=== PATIENT | male | born 1945 | race Two or more races ===

== ENCOUNTER 2020-02-04 10:00 | Outpatient (RCR) | payer MEDICARE, SELFPAY ==
--- NOTE | 2020-01-07 11:14 | MHC.PT.EP ---
[facility] [place] Office [place] Office [place] Office [address] Suzanna Lester [address] [phone] F: [phone] F: [phone] F: [phone] F: [phone] Physical Therapy Plan of Care Date of Evaluation: 01/07/20 Date of Surgery: Diagnosis: low back pain Assessment: pt presents to physical therapy with pain, decreased range of motion, decreased strength, impaired functional mobility, impaired postural awareness, and gait deviations. pt is a good candidate for skilled PT due to age, potential remediation of impairments, typical disease/condition progression and prognosis, comorbidities, and motivation. pt would benefit from tailored strengthening and stretching exercise program, functional training, gait training, postural re-training, neuromuscular re-education, and modalities as needed for pain. Frequency and Duration: The patient will be seen 2x/wk for 4 wks Short Term Goals: pt will be I w/ HEP to promote self-management of condition. pt will demo proper sitting posture w/ lumbar roll to facilitate neutral spine. Fdc Goals: pt will report <2/20 low back pain w/ walking for >10 minutes to facilitate return to PLOF. pt will report statistically significant improvement in self-reported outcome measure, Brianne, to facilitate return to PLOF. Treatment Plan: Modalities to reduce pain, spasms and effusion. Manual therapy to restore motion and function. Therapeutic exercise to improve strength and flexibility. Neuromuscular re-education for posture and balance. Therapeutic activities to return to functional activities of daily living. Please sign and return to therapist. Thank you for your referral.
--- NOTE | 2020-02-07 13:45 | MHC.PT.DC ---
[facility] [place] Office [place] Office [place] Office [address] [phone] F: [phone] F: [phone] F: [phone] F: [phone] Physical Therapy Discharge Report Diagnosis: low back pain Date of Surgery: N/A Date of Evaluation: 01/07/20 Date of Discharge: 02/07/20 Treatments to Date: 7 Cancellations to Date: 0 No Shows to Date: 2 Discharge Status: Improved Function Independent with HEP Discharge Summary: The patient overall has reported a decrease in his pain severity since starting physical therapy. He was given a shoe lift to compensate for his significant leg length disparity. He is independent with his home exercise program. The patient is discharged from this physical therapy plan of care. Electronically signed by: Emerald Frey PT, DPT Please sign and return to therapist. Thank you for your referral.
== END 2020-02-07 13:46 | disposition other institution (70) ==
LOC: HO.PT 10:00
PROVIDERS: PCP Internal Medicine; Visit Provider Internal Medicine
DX: M54.5 Low back pain (principal)
CPT/HCPCS: 97110; 97140; 97162; 99214

== ENCOUNTER → 2020-03-20 08:36 | Outpatient (BNVA) | payer MEDICARE, SELFPAY | PROVIDERS: PCP Internal Medicine; Visit Provider Nurse Practitioner Family | DX: S32.010D Wedge compression fracture of first lumbar vertebra, subsequent encounter for fracture with routine healing (principal); M47.816 Spondylosis without myelopathy or radiculopathy, lumbar region | CPT/HCPCS: 99202 ==

== ENCOUNTER 2020-04-04 12:28 | Outpatient (REF) | payer MEDICARE, SELFPAY ==
--- NOTE | 2020-04-04 | US_ITS ---
EXAMINATION: NONINVASIVE ASSESSMENT OF THE ARTERIES OF BOTH LOWER EXTREMITIES WITH ANKLE PRESSURE MEASUREMENTS, ANKLE BRACHIAL INDICES AND BILATERAL LOWER EXTREMITY DUPLEX CLINICAL INFORMATION: Bilateral lower extremity peripheral vascular disease. TECHNIQUE: Ankle pressure measurements and ankle brachial indices were obtained of the lower extremity arterial system bilaterally. In addition, duplex Doppler techniques with wave form analysis and measurement of velocities in the common femoral, profunda femoral, superficial femoral, popliteal and tibial arteries was performed. The study was performed only at rest. COMPARISON: 11/09/2018 FINDINGS: NONINVASIVE ASSESSMENT OF THE ARTERIES OF BOTH LOWER EXTREMITIES WITH ABIs: RIGHT LEG: Right ankle-brachial index: 1.22 Right ankle pressures: PT 120 DP 203 PVR: Normal LEFT LEG: Ankle-brachial index: 1.22 Pressures: PT 158 DP 204 PVR: Normal STAR Reference: - >0.97-1.25 = normal - no significant arterial disease - 0.75-0.96 = mild peripheral arterial disease - 0.5-0.74 = moderate peripheral arterial disease - <0.50 = severe peripheral arterial disease BILATERAL LOWER EXTREMITY DUPLEX ULTRASOUND: RIGHT LEG: Common femoral artery: 110 cm/s, Diastolic flow reversal: Yes Profunda femoris artery: 169 cm/s, Diastolic flow reversal: Yes Superficial femoral artery (proximal): 124 cm/s, Diastolic flow reversal: Yes Superficial femoral artery (mid): 143 cm/s, Diastolic flow reversal: Yes Superficial femoral artery (distal): 170 cm/s, Diastolic flow reversal: Yes Popliteal artery: 42 cm/s, Diastolic flow reversal: Yes Posterior tibial artery: 25.9 cm/s, Diastolic flow reversal: No LEFT LEG: Common femoral artery: 130 cm/s, Diastolic flow reversal: Yes Profunda femoris artery: 215 cm/s, Diastolic flow reversal: Yes Superficial femoral artery (proximal): 141 cm/s, Diastolic flow reversal: Yes Superficial femoral artery (mid): 156 cm/s, Diastolic flow reversal: Yes Superficial femoral artery (distal): 62 cm/s, Diastolic flow reversal: Yes Popliteal artery: 85.6 cm/s, Diastolic flow reversal: Yes Posterior tibial artery: 43.4 cm/s, Diastolic flow reversal: No INCIDENTAL: Within the mid right femoral vein, is focal, partially occlusive thrombus, possibly chronic clot. The vein is not completely compressible over this area; however, color flow is seen throughout the right femoral vein US/US arterial duplex LE BI IMPRESSION: RIGHT LE. No evidence of arterial insufficiency by STAR criteria. Elevated velocities within the mid and distal superficial femoral artery are consistent with mild hemodynamically significant stenosis. Decreased velocity and monophasic waveform within the posterior tibial artery suggests a high-grade stenosis. 2. Partially occlusive right femoral DVT, which is chronic- appearing. LEFT LEG: No evidence of arterial insufficiency by STAR criteria. Elevated velocities within the proximal and mid SFA consistent with mild stenosis. Moderate stenosis of the proximal profunda femoris artery. Monophasic tibial waveforms suggest high-grade stenosis. These findings will be communicated to the ordering provider by [facility] on 04/05/2019.
--- NOTE | 2020-04-04 | US_ITS ---
EXAMINATION: US EXTRACRANIAL CAROTID DUPLEX, BILATERAL CLINICAL INFORMATION: Bilateral carotid stenosis COMPARISON: None TECHNIQUE: Real-time ultrasound and Doppler techniques (integrating B-mode 2-D vascular images, Doppler spectral analysis and color-flow Doppler imaging) were utilized to interrogate the extracranial carotid arteries, the vertebral arteries and proximal subclavian arteries bilaterally. The degree of stenosis is determined by criteria similar to NASCET. FINDINGS: Right Side: 1. There is calcified atherosclerotic plaque seen in the bifurcation/proximal ICA region. 2. The common carotid artery PSV proximally is 85.6 cm/s and distally 80.9 cm/s. 3. The proximal internal carotid artery velocities are 96.6 cm/s systolic and 16.5 cm/s diastolic. 4. The proximal external carotid artery PSV is 179 cm/s. 5. The vertebral artery shows antegrade flow. 6. The subclavian artery waveforms are normal. Left Side: 1. There is calcified atherosclerotic plaque seen in the bifurcation/proximal ICA region. 2. The common carotid artery PSV proximally is 153 cm/s and distally 145 cm/s. 3. The proximal internal carotid artery velocities are 143 cm/s systolic and 28.5 cm/s diastolic. 4. The proximal external carotid artery PSV is 165 cm/s. 5. The vertebral artery shows antegrade flow. 6. The subclavian artery waveforms are normal. US/US carotid duplex BI IMPRESSION: 1. RIGHT: Minimal, non-hemodynamically significant stenosis of the proximal right internal carotid artery corresponding to a 0-49% stenosis by velocity criteria. 2. LEFT: Moderate, hemodynamically significant stenosis of the proximal left internal carotid artery corresponding to a 50-79% stenosis by velocity criteria.
== END 2020-04-04 12:29 | disposition home or self-care (01) ==
LOC: HO.US 12:28
PROVIDERS: Visit Provider Surgery Vascular Surgery
DX: I73.9 Peripheral vascular disease, unspecified (principal); I65.23 Occlusion and stenosis of bilateral carotid arteries
CPT/HCPCS: 93880; 93923; 93925

== ENCOUNTER 2020-04-11 18:29 | Outpatient (REF) | payer MEDICARE, SELFPAY ==
--- NOTE | 2020-04-11 18:32 | MR_ITS ---
EXAMINATION: MR LUMBAR SPINE WITHOUT CONTRAST CLINICAL INFORMATION: Lumbar spondylosis. COMPARISON: Lumbar spine radiographs from 12/07/2019. TECHNIQUE: MRI of the lumbar spine was obtained using routine sequences without contrast. FINDINGS: Chronic anterior wedge deformity was 70% loss of anterior body height. There is a 0.5 cm retropulsion of the superior posterior body wall of L1, unchanged compared to 06/02/2019. There remains mild marrow edema along the superior endplate of L1. Moderate disc desiccation at L5-S1. Mild disc desiccation at all additional lumbar levels. The remaining vertebral body heights are maintained. Mixed Modic type discogenic endplate changes including minimal Modic type I discogenic edema at all lumbar levels. No additional suspicious marrow edema. Mild flattening of the conus medullaris at the level of T12-L1 without overt cord compression. The conus medullaris terminates at the level of L2. No significant abnormalities of the paraspinal musculature. Limited evaluation of the intra-abdominal structures without significant abnormalities. The abdominal aorta is of normal contour and caliber. AXIAL SPINAL LEVELS: T12-L1: Moderate retropulsion of the posterior body wall of L1. There is moderate to severe bilateral facet joint arthropathy. There is severe right and moderate left neural foraminal stenosis. There is mild spinal canal stenosis. L1-L2: Normal annular contour. There is moderate right and mild left facet joint arthropathy. There is no neural foraminal stenosis. There is no spinal canal stenosis. L2-L3: Shallow diffuse disc bulge. There is moderate bilateral facet joint arthropathy. There is mild right and no left neural foraminal stenosis. There is no spinal canal stenosis. L3-L4: Shallow diffuse disc bulge. There is moderate right worse than left facet joint arthropathy. There is mild right and no left neural foraminal stenosis. There is no spinal canal stenosis. L4-L5: Moderate diffuse disc bulge. There is moderate to severe leftward than right facet joint arthropathy. There is moderate bilateral neural foraminal stenosis. There is stenosis of the subarticular zones with moderate spinal canal stenosis centrally. L5-S1: Moderate diffuse disc bulge. There is moderate bilateral facet joint arthropathy. There is mild bilateral neural foraminal stenosis. There is narrowing of the subarticular zones with no overt spinal canal stenosis centrally. MR/MR lumbar spine wo con IMPRESSION: 1. Chronic anterior compression deformity of L1 with 70% loss of anterior body height. There is 0.5 cm retropulsion of the posterior body wall of L1, unchanged compared to 06/02/2019. Associated mild spinal canal stenosis at T12-L1. 2. 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 Most notably, there is moderate spinal canal stenosis at L4-L5. Narrowings/stenoses of the subarticular zones at L4-L5 and L5-S1. Moderate neural foraminal stenoses at L4-L5.
== END 2020-04-11 18:30 | disposition home or self-care (01) ==
LOC: HO.MRI 18:29
PROVIDERS: Visit Provider Anesthesiology
DX: M47.816 Spondylosis without myelopathy or radiculopathy, lumbar region (principal); S32.010A Wedge compression fracture of first lumbar vertebra, initial encounter for closed fracture
CPT/HCPCS: 72148; Q3014

== ENCOUNTER → 2020-04-18 13:24 | Outpatient (BNVA) | payer MEDICARE, SELFPAY | PROVIDERS: PCP Internal Medicine; Visit Provider Nurse Practitioner Family | DX: M47.816 Spondylosis without myelopathy or radiculopathy, lumbar region (principal); S32.010S Wedge compression fracture of first lumbar vertebra, sequela | CPT/HCPCS: Q3014 ==

== ENCOUNTER 2020-05-17 09:31 | Outpatient (REF) | payer MEDICARE, SELFPAY ==
[2020-05-17 10:34] LABS: Estimated Average Glucose 123 mg/dL; Hemoglobin A1c % 5.9 %
[2020-05-17 10:55] LABS: Alanine Aminotransferase 93 U/L (0-40); Albumin Level 4.1 g/dL (3.5-5.0); Alkaline Phosphatase 89 U/L (39-117); Anion Gap 11 (12-20); Aspartate Amino Transferase 36 U/L (5-37); Bilirubin Total 0.5 mg/dL (0.0-1.0); Blood Urea Nitrogen 22 mg/dL (9-16); Calcium 9.1 mg/dL (8.4-10.2); Carbon Dioxide 27 mmol/L (22-29); Chloride 110 mmol/L (96-108); Cholesterol 133 mg/dL; Estimated Glomerular Filt Rate 58; Glucose Fasting 93 mg/dL (60-99); HDL Cholesterol 34 mg/dL; LDL Cholesterol Calculated 75 mg/dl; Sodium 143 mmol/L (135-145); Total Protein 7.2 g/dL (6.5-8.0); Triglycerides 120 mg/dL
[2020-05-17 11:17] LABS: Thyroid Stimulating Hormone 3.16 uIU/mL (0.32-4.0)
[2020-05-17 11:30] LABS: Creatinine Urine 117.14 mg/dL
[2020-05-17 11:42] LABS: Microalbum/Creatinine Ratio Ur 1139.6 ug/mg cr
[2020-05-18 08:37] LABS: LDL Cholesterol Direct 67 mg/dL (<100)
[2020-05-18 17:14] LABS: Vitamin B12 1464 pg/mL (200-900)
== END 2020-05-17 09:32 | disposition home or self-care (01) ==
LOC: HO.LAB 09:31
PROVIDERS: Absent Provider Internal Medicine Endocrinology, Diabetes & Metabolism; PCP Internal Medicine; Visit Provider Internal Medicine
DX: E11.42 Type 2 diabetes mellitus with diabetic polyneuropathy (principal); Z79.4 Long term (current) use of insulin
CPT/HCPCS: 36415; 80053; 80061; 82043; 82607; 83036; 83721; 84443

== ENCOUNTER 2020-05-23 06:05 | Outpatient (REF) | payer MEDICARE, SELFPAY ==
--- NOTE | ~2020-05-23 | FL_ITS ---
EXAMINATION: XR FLUOROSCOPY WITH IMAGES CLINICAL INFORMATION: Spondylosis with myelopathy or radiculopathy. COMPARISON: None. TECHNIQUE: Fluoroscopy performed by Ashlie Hernandez NP. Fluoroscopy time: 1.3 minutes. DAP: 9.07 Gy-cm2. Images: 7. FINDINGS: On prone, digital images obtained of lower lumbar spine. There are needles positioned lateral to the pedicles at L5, L4 and L3 vertebra bilaterally with contrast injection opacifying the soft tissues. No gross bony abnormality seen. FL/FL guidance in treatment room IMPRESSION: Fluoroscopy guidance for radiofrequency ablation at L3, L4 and L5 vertebrae.
== END 2020-05-23 06:06 | disposition home or self-care (01) ==
LOC: HO.RADIR 06:05
PROVIDERS: Visit Provider Anesthesiology
DX: M47.816 Spondylosis without myelopathy or radiculopathy, lumbar region (principal); S32.010S Wedge compression fracture of first lumbar vertebra, sequela; F17.200 Nicotine dependence, unspecified, uncomplicated
CPT/HCPCS: 64493; 64494; 64495; Q9967

== ENCOUNTER → 2020-05-29 14:37 | Outpatient (BNVA) | payer MEDICARE, SELFPAY | PROVIDERS: PCP Internal Medicine; Visit Provider Nurse Practitioner Family | DX: M47.816 Spondylosis without myelopathy or radiculopathy, lumbar region (principal); S32.010S Wedge compression fracture of first lumbar vertebra, sequela; Z79.899 Other long term (current) drug therapy | CPT/HCPCS: Q3014 ==

== ENCOUNTER 2020-06-13 09:21 | Outpatient (REF) | payer MEDICARE, SELFPAY ==
--- NOTE | ~2020-06-13 | US_ITS ---
EXAMINATION: US RETROPERITONEAL LIMITED (RENAL ONLY) CLINICAL INFORMATION: Chronic kidney disease stage III. COMPARISON: CT abdomen pelvis 06/02/2019 TECHNIQUE: Real-time imaging of the kidneys. FINDINGS: RIGHT KIDNEY: 11.4 x 6.1 x 5.8 cm (SAG x AP x TRV). The kidney is normal in size, contour, and echogenicity. Renal cortical thickness is normal. No calculi or focal parenchymal lesions. No hydronephrosis. LEFT KIDNEY: 1.9 x 5.5 x 5.9 cm (SAG x AP x TRV). The kidney is normal in size, contour, and echogenicity. Renal cortical thickness is normal. No calculi or focal parenchymal lesions. No hydronephrosis. There is trace perinephric fluid adjacent to the lower pole. US/US renal BI IMPRESSION: Normal renal ultrasound.
== END 2020-06-13 09:22 | disposition home or self-care (01) ==
LOC: HO.US 09:21
PROVIDERS: Visit Provider Internal Medicine Hypertension Specialist
DX: N18.31 Chronic kidney disease, stage 3a (principal)
CPT/HCPCS: 76775

== ENCOUNTER → 2020-07-12 13:51 | Outpatient (BNVA) | payer MEDICARE, SELFPAY | PROVIDERS: PCP Internal Medicine; Visit Provider Internal Medicine Endocrinology, Diabetes & Metabolism | DX: E11.42 Type 2 diabetes mellitus with diabetic polyneuropathy (principal); E11.21 Type 2 diabetes mellitus with diabetic nephropathy; E11.319 Type 2 diabetes mellitus with unspecified diabetic retinopathy without macular edema; E11.22 Type 2 diabetes mellitus with diabetic chronic kidney disease; I12.9 Hypertensive chronic kidney disease with stage 1 through stage 4 chronic kidney disease, or unspecified chronic kidney disease; N18.30 Chronic kidney disease, stage 3 unspecified; Z79.4 Long term (current) use of insulin; E78.5 Hyperlipidemia, unspecified | CPT/HCPCS: 82947; 99212 ==

== ENCOUNTER 2020-07-31 09:32 | Outpatient (REF) | payer MEDICARE, SELFPAY ==
[2020-07-31 10:51] LABS: Alanine Aminotransferase 29 U/L (0-40); Albumin Level 3.9 g/dL (3.5-5.0); Alkaline Phosphatase 78 U/L (39-117); Anion Gap 13 (12-20); Aspartate Amino Transferase 19 U/L (5-37); Bilirubin Total 0.8 mg/dL (0.0-1.0); Blood Urea Nitrogen 23 mg/dL (9-16); Calcium 9.1 mg/dL (8.4-10.2); Carbon Dioxide 25 mmol/L (22-29); Chloride 107 mmol/L (96-108); Estimated Glomerular Filt Rate > 60; Glucose Random 111 mg/dL (60-115); Phosphorus 4.7 mg/dL (2.7-4.5); Potassium 4.4 mmol/L (3.3-5.1); Sodium 141 mmol/L (135-145); Total Protein 7.2 g/dL (6.5-8.0)
[2020-07-31 11:22] LABS: Glucose Urine UA NEG (NEG); Leukocyte Esterase Urine NEG (NEG); Nitrite Urine NEG (NEG); Specific Gravity - Urine >= 1.030 (1.005-1.025); Urine Blood TRACE (NEG); Urine Ketones NEG (NEG); Urine Protein 2+ MG/DL (NEG-TRACE)
[2020-07-31 11:24] LABS: Appearance Urine CLEAR; Color Urine YELLOW
[2020-07-31 11:35] LABS: RBC Urine 0-2 /HPF (0); Squamous Epithelial Cell Urine TRACE /LPF; WBC Urine 0-2 /HPF (0-4)
[2020-07-31 11:57] LABS: Creatinine Urine 142.43 mg/dL
[2020-07-31 12:23] LABS: Protein/Creatinine Ratio, Ur 1.62 (<0.2); Total Protein Urine Random 231 mg/dL (<12)
== END 2020-07-31 09:33 | disposition home or self-care (01) ==
LOC: HO.LAB 09:32
PROVIDERS: PCP Internal Medicine; Visit Provider Internal Medicine Hypertension Specialist
DX: N18.31 Chronic kidney disease, stage 3a (principal)
CPT/HCPCS: 36415; 80053; 81001; 81003; 84100; 84156

== ENCOUNTER → 2020-08-01 08:15 | Outpatient (BNVA) | payer MEDICARE, SELFPAY | PROVIDERS: PCP Internal Medicine; Visit Provider Internal Medicine Endocrinology, Diabetes & Metabolism | CPT/HCPCS: Q3014 ==

== ENCOUNTER 2020-09-25 03:44 | Emergency (ER) | payer MEDICARE, SELFPAY ==
--- NOTE | ~2020-09-25 | US_ITS ---
EXAMINATION: US VENOUS ULTRASOUND WITH DOPPLER LOWER EXTREMITY, LEFT CLINICAL INFORMATION: Pain and redness of the left lower extremity COMPARISON: None TECHNIQUE: Ultrasound of the deep veins is performed from the hip to the calf with compression sonography and color and pulse Doppler assessment. Spectral analysis with color-flow imaging is performed. FINDINGS: There is normal venous compression and respiratory variation and augmented flow. The visualized common femoral vein, superficial femoral vein, profunda femoral vein, popliteal vein, and the trifurcation region shows no evidence of deep venous thrombosis. There is no significant popliteal fossa cyst. If the patient's symptoms persist, followup ultrasound in 5 days 7 days might be of value to exclude proximal propagation from a non-visualized calf vein. US/US venous duplex LE LT IMPRESSION: No DVT demonstrated in the left lower extremity.
[2020-09-25 04:00] VITALS: BP 152/80; PULSE 110; RESP 16; O2SAT 98; BMI 31.3
--- NOTE | 2020-09-25 04:21 | ED.LOWEXIN ---
HPI - Extremity Injury (Lower) General Chief Complaint: Extremity Injury, Lower Stated Complaint: extreme knee pain Time Seen by Provider: 09/25/20 04:21 Source: patient Mode of arrival: ambulatory History of Present Illness HPI Narrative: 75-year-old male with presentation for left knee pain and denies any associated fever, chills, but states that this causes him to have significant pain on walking for longer periods of time. He states this discharge over the past couple of days and is tender on direct palpation. Related Data Home Medications Medication Instructions Recorded Confirmed atorvastatin 80 mg tablet 80 mg PO DAILY 01/07/20 08/01/20 adalimumab 40 mg/0.8 mL mg SUBCUT Q2W 07/12/20 08/01/20 subcutaneous pen kit latanoprost 0.005 % eye drops 1 drp OPHTHALMIC (EYE) BEDTIME 07/12/20 08/01/20 Previous Rx's Medication Instructions Recorded 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 meter #1 ea 02/29/20 aspirin 81 mg tablet,delayed 81 mg PO DAILY #90 tab 06/06/20 release insulin aspart U-100 100 unit/mL See Rx Instructions SUBCUT TID 90 07/12/20 (3 mL) subcutaneous pen Days #30 ml lancets 28 gauge #300 ea 07/12/20 pen needle, diabetic 32 gauge x #400 ea 07/12/2032 losartan 25 mg tablet 25 mg PO DAILY 90 Days #90 tab 07/31/20 metoprolol succinate 25 mg 25 mg PO DAILY #90 tab 07/31/20 tablet,extended release 24 hr rosuvastatin 5 mg tablet 5 mg PO DAILY 90 Days #90 tab 07/31/20 FreeStyle Lite Strips #300 ea NS 08/01/20 dulaglutide 3 mg/0.5 mL 3 mg SUBCUT QWEEK 90 Days #6.5 ml 08/01/20 subcutaneous pen injector insulin degludec 100 unit/mL (3 26 unit SUBCUT DAILY 90 Days #30 ml 08/01/20 mL) subcutaneous pen amlodipine 10 mg tablet 10 mg PO DAILY #90 tab 08/22/20 gabapentin 300 mg capsule 300 mg PO BEDTIME #90 cap 08/22/20 Allergies Allergy/AdvReac Type Severity Reaction Status Date / Time No Known Allergies Allergy Mild NONE Verified 05/29/20 14:38 Review of Systems Review of Systems: Pertinent positives and negatives as stated in HPI 10 point review of systems is otherwise negative. FOR[facility]LY [facility], [facility] Past Medical History Source: nursing notes reviewed Medical History Anxiety CAD (coronary artery disease) Cardiomyopathy Carotid artery stenosis CKD stage 3 due to type 2 diabetes mellitus Compression fracture of L1 lumbar vertebra Congestive heart failure Diabetes type 2, controlled Diabetic 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 diabetes mellitus Diabetic polyneuropathy associated with type 2 diabetes mellitus Diabetic retinopathy associated with type 2 diabetes mellitus Dyslipidemia GERD (gastroesophageal reflux disease) Glaucoma History of renal calculi Hypertension Iliac artery stenosis, bilateral Infective endocarditis 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 Moderate aortic stenosis Overweight (BMI 25.0-29.9) Positive TB test Pulmonary nodule PVD (peripheral vascular disease) Tobacco abuse Surgical History Hx of appendectomy Hx of arthroscopy of right knee Hx of cataract removal with insertion of prosthetic lens Hx of coronary artery bypass graft Hx of shoulder surgery Hx of tonsillectomy Family History Family History Father Stomach cancer Mother Diabetes Social History Social History Alcohol intake: never Cigarettes Per Day: 6 Advance Directives: No Advance Directives Information Provided: No Physical Exam Vital Signs: Vital Signs: Last Vital Signs Pulse 110 H 09/25/20 04:00 Resp 16 09/25/20 04:00 BP 152/80 H 09/25/20 04:00 Pulse Ox 98 09/25/20 04:00 Body Mass Index 31.3 VITAL SIGNS: Reviewed. GENERAL: Well developed, well nourished, in no acute distress. HEAD: Normocephalic/atraumatic EYES: PERRLA, EOMI OROPHARYNX: no oral lesions noted, posterior pharynx clear LUNGS: Normal breath sounds. No adventitious sounds or accessory muscle use. SpO2<98> CARDIOVASCULAR: Regular rate and rhythm without noted murmurs ABDOMEN: Soft, non-tender, non-distended with bowel sounds. LEFT LOWER EXTREMITY: Exquisite tenderness on palpation at the medial aspect of the left knee /distal quad with appreciation of a cord but no erythema / induration or fluctuance noted. SKIN: Inspection of the skin reveals no rashes NEUROLOGIC: Alert and oriented x 4. Strength and sensation to light touch were grossly intact x 4. Course Course Course Narrative: 75-year-old male with history and clinical presentation consistent with either thrombophlebitis or DVT. Review of venous duplex negative for DVT and patient will be empirically treated for thrombophlebitis. Discharge Plan Discharge Clinical Impression: Thrombophlebitis Patient Disposition: Home, Self-Care Instructions: Superficial Thrombophlebitis (ED) Additional Instructions: 1. Reanude todos los medicamentos caseros seg?n lo prescrito. 2. Ibuprofeno 400 mg, por v?a oral con leche o alimentos, cada 6 horas seg?n sea necesario para controlar el dolor. 3. Queenie un seguimiento con cooper proveedor de atenci?n primaria en los pr?ximos 1-2 d?as para aleta nueva evaluaci?n. Regrese a la brian de emergencias si boyd s?ntomas empeoran de manera aguda. Prescriptions: No Action (DME) 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 meter [FreeStyle [place] Lite] Kit See Rx Instructions .ROUTE .MEDSUPPLY Qty: 1 RF: 0 aspirin 81 mg tablet,delayed release (DR/EC) 81 mg PO DAILY Qty: 90 RF: 1 losartan 25 mg tablet 25 mg PO DAILY 90 Days Qty: 90 RF: 1 metoprolol succinate 25 mg tablet extended release 24 hr 25 mg PO DAILY Qty: 90 RF: 1 rosuvastatin 5 mg tablet 5 mg PO DAILY 90 Days Qty: 90 RF: 1 amlodipine 10 mg tablet 10 mg PO DAILY Qty: 90 RF: 0 gabapentin 300 mg capsule 300 mg PO BEDTIME Qty: 90 RF: 2 atorvastatin 80 mg tablet 80 mg PO DAILY RF: 0 adalimumab 40 mg/0.8 mL pen injector kit subcut Q2W RF: 0 (DME) FreeStyle Lite Strips Strip See Rx Instructions ea Not Applicable BID Qty: 300 RF: 3 insulin degludec 100 unit/mL (3 mL) insulin pen 26 unit subcut DAILY 90 Days Qty: 30 RF: 2 Trulicity 3 mg/0.5 mL pen injector 3 mg subcut QWEEK 90 Days Qty: 6.5 RF: 2 latanoprost 0.005 % drops 1 drp ophthalmic (eye) BEDTIME RF: 0 insulin aspart U-100 100 unit/mL (3 mL) insulin pen See Rx Instructions subcut TID 90 Days Qty: 30 RF: 2 (DME) pen needle, diabetic [BD Martina 2nd Gen Pen Needle] 32 gauge x 5/32 needle See Rx Instructions .MEDSUPPLY Qty: 400 RF: 4 (DME) lancets 28 gauge misc See Rx Instructions ea Not Applicable BID Qty: 300 RF: 3 Referrals: Physician,Unknown [Primary Care Provider] - 2 days Print Language: Irish
[2020-09-25] MEDS: Acetaminophen 325 MG TABLET 975 MG PO (04:42)
== END 2020-09-25 06:48 | disposition home or self-care (01) ==
PROVIDERS: Emergency Provider Student in an Organized Health Care Education/Training Program
DX: I80.3 Phlebitis and thrombophlebitis of lower extremities, unspecified (principal); I12.9 Hypertensive chronic kidney disease with stage 1 through stage 4 chronic kidney disease, or unspecified chronic kidney disease; E11.22 Type 2 diabetes mellitus with diabetic chronic kidney disease; N18.30 Chronic kidney disease, stage 3 unspecified; I25.10 Atherosclerotic heart disease of native coronary artery without angina pectoris; Z79.4 Long term (current) use of insulin; Z79.82 Long term (current) use of aspirin; Z79.899 Other long term (current) drug therapy
CPT/HCPCS: 93971; 99284

== ENCOUNTER 2020-09-25 20:55 | Emergency (ER) | payer MEDICARE, SELFPAY ==
--- NOTE | ~2020-09-25 | XR_ITS ---
EXAMINATION: XR KNEE, LEFT CLINICAL INFORMATION: Increased knee pain COMPARISON: None TECHNIQUE: Four views of the left knee. FINDINGS: No visible fracture or dislocation. Mild medial compartment arthritis. Small suprapatellar joint fluid. Quadriceps tendon insertional enthesopathy. Extensive vascular calcification. XR/XR knee LT 4V IMPRESSION: No acute osseous abnormality. Mild medial compartment arthritis.
[2020-09-25 20:58] VITALS: BP 156/66; PULSE 85; RESP 16; TEMP 36.3; O2SAT 96; BMI 31.3
--- NOTE | 2020-09-25 21:16 | ED.LOWEXIN ---
HPI - Extremity Injury (Lower) General Chief Complaint: Extremity Injury, Lower Stated Complaint: Knee pain Time Seen by Provider: 09/25/20 21:16 Source: patient Mode of arrival: wheelchair Limitations: no limitations History of Present Illness HPI Narrative: 75-year-old male here with complaints of left knee pain which he has had for several days. He was seen here in this emergency department last night and had a ultrasound which was negative for any deep vein thrombosis and he was given diagnosis thrombophlebitis. It was recommended that he take Motrin as needed for pain. He returns today for persistent pain. He tells me that it has not worsened. There is no new fevers, chills, redness. no new injury or trauma. Related Data Home Medications Medication Instructions Recorded Confirmed atorvastatin 80 mg tablet 80 mg PO DAILY 01/07/20 08/01/20 adalimumab 40 mg/0.8 mL mg SUBCUT Q2W 07/12/20 08/01/20 subcutaneous pen kit latanoprost 0.005 % eye drops 1 drp OPHTHALMIC (EYE) BEDTIME 07/12/20 08/01/20 Previous Rx's Medication Instructions Recorded 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 meter #1 ea 02/29/20 aspirin 81 mg tablet,delayed 81 mg PO DAILY #90 tab 06/06/20 release insulin aspart U-100 100 unit/mL See Rx Instructions SUBCUT TID 90 07/12/20 (3 mL) subcutaneous pen Days #30 ml lancets 28 gauge #300 ea 07/12/20 pen needle, diabetic 32 gauge x #400 ea 07/12/20 5/32 losartan 25 mg tablet 25 mg PO DAILY 90 Days #90 tab 07/31/20 metoprolol succinate 25 mg 25 mg PO DAILY #90 tab 07/31/20 tablet,extended release 24 hr rosuvastatin 5 mg tablet 5 mg PO DAILY 90 Days #90 tab 07/31/20 FreeStyle Lite Strips #300 ea NS 08/01/20 dulaglutide 3 mg/0.5 mL 3 mg SUBCUT QWEEK 90 Days #6.5 ml 08/01/20 subcutaneous pen injector insulin degludec 100 unit/mL (3 26 unit SUBCUT DAILY 90 Days #30 ml 08/01/20 mL) subcutaneous pen amlodipine 10 mg tablet 10 mg PO DAILY #90 tab 08/22/20 gabapentin 300 mg capsule 300 mg PO BEDTIME #90 cap 08/22/20 tramadol 50 mg PO Q8H PRN #5 tab 09/25/20 Allergies Allergy/AdvReac Type Severity Reaction Status Date / Time No Known Allergies Allergy Mild NONE Verified 05/29/20 14:38 Review of Systems Review of Systems: Yes all other systems are reviewed and are negative Constitutional: Constitutional: Reports no additional constitutional complaints, Denies body ache(s), Denies chills, Denies fever(s), Denies headache(s) and Denies weakness Eyes: Eyes: Reports no additional eye complaints and Denies change in vision ENT: Reports system reviewed and no additional complaints, except as documented, Denies dizziness, Denies headache(s), Denies nasal congestion, Denies nasal discharge and Denies neck pain Cardiovascular: Cardiovascular: Reports no additional cardiovascular complaints, Denies chest pain, Denies leg edema and Denies dyspnea Respiratory: Respiratory: Reports no additional respiratory complaints, Denies cough and Denies dyspnea Gastrointestinal: Gastrointestinal: Reports no additional gastrointestinal complaints, Denies abdominal pain, Denies diarrhea, Denies nausea and Denies vomiting Genitourinary: Genitourinary: Denies urinary incontinence Musculoskeletal: Musculoskeletal: Reports no additional musculoskeletal complaints, Denies back pain, Reports arthralgias, Denies joint swelling, Denies neck pain, Denies numbness and Denies tingling Integumentary/Breasts: Skin/Breast: Reports system reviewed and no additional complaints, except as docu and Denies rash Neurologic: Reports system reviewed and no additional complaints, except as documented, Denies Abnormal speech present, Denies dizziness, Denies headache(s), Denies numbness, Denies tingling and Denies weakness FOR[facility]LY [facility] Past Medical History Attestation statement: The following information was validated with the patient. Source: old records reviewed and nursing notes reviewed Medical History Anxiety CAD (coronary artery disease) Cardiomyopathy Carotid artery stenosis CKD stage 3 due to type 2 diabetes mellitus Compression fracture of L1 lumbar vertebra Congestive heart failure Diabetes type 2, controlled Diabetic 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 diabetes mellitus Diabetic polyneuropathy associated with type 2 diabetes mellitus Diabetic retinopathy associated with type 2 diabetes mellitus Dyslipidemia GERD (gastroesophageal reflux disease) Glaucoma History of renal calculi Hypertension Iliac artery stenosis, bilateral Infective endocarditis Left carotid stenosis halfway (current) use of insulin Moderate aortic stenosis Overweight (BMI 25.0-29.9) Positive TB test Pulmonary nodule PVD (peripheral vascular disease) Tobacco abuse Surgical History Hx of appendectomy Hx of arthroscopy of right knee Hx of cataract removal with insertion of prosthetic lens Hx of coronary artery bypass graft Hx of shoulder surgery Hx of tonsillectomy Family History Family History Father Stomach cancer Mother Diabetes Social History Social History Alcohol intake: never Cigarettes Per Day: 6 Advance Directives: No Advance Directives Information Provided: No Physical Exam Vital Signs: Vital Signs: Last Vital Signs Temp 97.4 F 09/25/20 20:58 Pulse 85 09/25/20 20:58 Resp 16 09/25/20 20:58 BP 156/66 H 09/25/20 20:58 Pulse Ox 96 09/25/20 20:58 Body Mass Index 31.3 Const: General: cooperative, healthy appearing, comfortable and no acute distress Orientation/consciousness: patient oriented x3 Limitations: no limitations HENMT: Head: Yes normal to inspection Ears: hearing grossly normal bilaterally General nose exam: Normal external nose present Face and sinus: Yes normal facial exam Mouth: Normal oral and palatal mucosa present Throat: Yes posterior oropharynx normal Eyes: General: appearance normal, both eyes and all related structures Pupils: Equal, round and reactive pupils present Neck: Neck: Yes normal visual inspection Chest: Chest palpation & inspection: normal inspection of the chest Resp: Effort & Inspection: normal respiratory effort Auscultation: clear to auscultation bilaterally Cardio: Rate: regular rate Rhythm: regular rhythm Peripheral pulses: Peripheral pulses 2+ throughout GI: Inspection: Yes normal to inspection Palpation (GI): Soft to palpation and nontender Auscultation: normal bowel sounds Back/Spine/Pelvis: Thoracic/Lumbar Spine: thoracic and lumbar spine normal to inspection Skin: General skin exam: no rashes or lesions noted Neuro: General: patient oriented x3, no focal motor deficits and normal sensation to monofilament Cranial nerves: Yes Equal, round and reactive pupils present Cognition (Neuro): normal cognition Speech: No Abnormal speech present Gait exam (Neuro): Normal gait present Motor exam (neuro): 5/5 motor strength present throughout Extrem: Other: The medial aspect of the distal who quad/proximal/medial knee there is tenderness with no appreciable warmth or redness. No calf pain or swelling. No posterior knee pain. Patient is able to extend the knee/flex General: Yes normal to inspection Course Course Course Narrative: continued left knee pain despite home Motrin and Tylenol with no new injury or trauma or complaints. Seen here last evening and had a negative ultrasound for DVT. Will check x/ray. - X-ray consistent with arthritis with small joint effusion. recommended Mack wrap for home, follow-up with orthopedics as needed. Pain control. Patient was ambulatory with cane at discharge reviewed worrisome signs and symptoms and when to return to the emergency department. Comfortable discharge home. MDM - Extremity Injury (Lower) Medical Records Attestation: I reviewed the patient's medical records. Lab Data Attestation: I reviewed the patient's lab results. Imaging Data left knee xray: Attestation: I personally reviewed and interpreted this imaging study as follows: Radiologist's impression: EXAMINATION: XR KNEE, LEFT CLINICAL INFORMATION: Increased knee pain COMPARISON: None TECHNIQUE: Four views of the left knee. FINDINGS: No visible fracture or dislocation. Mild medial compartment arthritis. Small suprapatellar joint fluid. Quadriceps tendon insertional enthesopathy. Extensive vascular calcification. XR/XR knee LT 4V IMPRESSION: No acute osseous abnormality. Mild medial compartment arthritis. Discharge Plan Discharge Clinical Impression: Arthritis Patient Disposition: Home, Self-Care Instructions: Osteoarthritis (ED) Additional Instructions: Ice, elevation, Mack bandage for comfort continue Tylenol or Motrin for pain. Take the stronger pain medicine as needed follow-up with orthopedics Prescriptions: New tramadol 50 mg tablet 50 mg PO Q8H PRN (Reason: pain) Qty: 5 RF: 0 No Action (DME) 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 meter [FreeStyle [place] Lite] Kit See Rx Instructions .ROUTE .MEDSUPPLY Qty: 1 RF: 0 aspirin 81 mg tablet,delayed release (DR/EC) 81 mg PO DAILY Qty: 90 RF: 1 losartan 25 mg tablet 25 mg PO DAILY 90 Days Qty: 90 RF: 1 metoprolol succinate 25 mg tablet extended release 24 hr 25 mg PO DAILY Qty: 90 RF: 1 rosuvastatin 5 mg tablet 5 mg PO DAILY 90 Days Qty: 90 RF: 1 amlodipine 10 mg tablet 10 mg PO DAILY Qty: 90 RF: 0 gabapentin 300 mg capsule 300 mg PO BEDTIME Qty: 90 RF: 2 atorvastatin 80 mg tablet 80 mg PO DAILY RF: 0 adalimumab 40 mg/0.8 mL pen injector kit subcut Q2W RF: 0 (DME) FreeStyle Lite Strips Strip See Rx Instructions ea Not Applicable BID Qty: 300 RF: 3 insulin degludec 100 unit/mL (3 mL) insulin pen 26 unit subcut DAILY 90 Days Qty: 30 RF: 2 Trulicity 3 mg/0.5 mL pen injector 3 mg subcut QWEEK 90 Days Qty: 6.5 RF: 2 latanoprost 0.005 % drops 1 drp ophthalmic (eye) BEDTIME RF: 0 insulin aspart U-100 100 unit/mL (3 mL) insulin pen See Rx Instructions subcut TID 90 Days Qty: 30 RF: 2 (DME) pen needle, diabetic [BD Martina 2nd Gen Pen Needle] 32 gauge x 5/32 needle See Rx Instructions .MEDSUPPLY Qty: 400 RF: 4 (DME) lancets 28 gauge misc See Rx Instructions ea Not Applicable BID Qty: 300 RF: 3 Referrals: Yuki Barnett MD [Physician] - 2 days
[2020-09-25] MEDS: traMADoL HCL 50 MG TABLET 25 MG PO (22:30)
== END 2020-09-25 22:45 | disposition home or self-care (01) ==
PROVIDERS: Emergency Provider Student in an Organized Health Care Education/Training Program; PCP Internal Medicine
DX: M17.12 Unilateral primary osteoarthritis, left knee (principal); I25.10 Atherosclerotic heart disease of native coronary artery without angina pectoris; I12.9 Hypertensive chronic kidney disease with stage 1 through stage 4 chronic kidney disease, or unspecified chronic kidney disease; E11.22 Type 2 diabetes mellitus with diabetic chronic kidney disease; N18.30 Chronic kidney disease, stage 3 unspecified; Z79.4 Long term (current) use of insulin; Z79.82 Long term (current) use of aspirin; Z79.899 Other long term (current) drug therapy
CPT/HCPCS: 73564; 93971; 99283; 99284

== ENCOUNTER → 2020-10-11 09:57 | Outpatient (BNVA) | payer MEDICARE, SELFPAY | PROVIDERS: Visit Provider Orthopaedic Surgery | DX: M25.562 Pain in left knee (principal); S83.242A Other tear of medial meniscus, current injury, left knee, initial encounter; X58.XXXA Exposure to other specified factors, initial encounter; Y93.9 Activity, unspecified; Y92.9 Unspecified place or not applicable; Y99.8 Other external cause status; I73.9 Peripheral vascular disease, unspecified; I25.10 Atherosclerotic heart disease of native coronary artery without angina pectoris; I50.9 Heart failure, unspecified; I33.0 Acute and subacute infective endocarditis; E11.21 Type 2 diabetes mellitus with diabetic nephropathy; E11.42 Type 2 diabetes mellitus with diabetic polyneuropathy; E11.319 Type 2 diabetes mellitus with unspecified diabetic retinopathy without macular edema; I12.9 Hypertensive chronic kidney disease with stage 1 through stage 4 chronic kidney disease, or unspecified chronic kidney disease; N18.30 Chronic kidney disease, stage 3 unspecified; Z72.0 Tobacco use; Z79.4 Long term (current) use of insulin | CPT/HCPCS: 99202 ==

== ENCOUNTER 2020-10-25 10:49 | Outpatient (REF) | payer MEDICARE, SELFPAY ==
[2020-10-25 11:44] LABS: Glucose Urine UA NEG (NEG); Leukocyte Esterase Urine NEG (NEG); Nitrite Urine NEG (NEG); PH 5.5 (5.0-8.0); Specific Gravity - Urine >= 1.030 (1.005-1.025); Urine Blood NEG (NEG); Urine Ketones NEG (NEG); Urine Protein 2+ MG/DL (NEG-TRACE)
[2020-10-25 11:45] LABS: Appearance Urine HAZY; Color Urine YELLOW
[2020-10-25 11:46] LABS: Hematocrit 38.1 % (42-52); Hemoglobin 12.8 g/dl (14.0-18.0); Mean Corpuscular HGB Conc 33.6 g/dl (31.0-36.0); Mean Corpuscular Hemoglobin 32.2 pg (27.0-33.0); Mean Corpuscular Volume 95.7 fL (80-98); Platelet Count 154 X10*3/uL (160-400); Red Blood Count 3.98 X10*6/uL (4.60-5.80); Red Cell Distribution Width 13.3 % (11.0-16.0); White Blood Count 10.3 X10*3/uL (4.8-10.8)
[2020-10-25 11:55] LABS: Estimated Average Glucose 169 mg/dL; Hemoglobin A1c % 7.5 %
[2020-10-25 12:11] LABS: Alanine Aminotransferase 43 U/L (0-40); Albumin Level 4.3 g/dL (3.5-5.0); Alkaline Phosphatase 83 U/L (39-117); Anion Gap 12 (12-20); Aspartate Amino Transferase 28 U/L (5-37); Bilirubin Direct 0.2 mg/dL (0.0-0.5); Bilirubin Total 0.5 mg/dL (0.0-1.0); Blood Urea Nitrogen 25 mg/dL (9-16); Calcium 9.6 mg/dL (8.4-10.2); Carbon Dioxide 29 mmol/L (22-29); Chloride 106 mmol/L (96-108); Cholesterol 132 mg/dL; Estimated Glomerular Filt Rate 46; Glucose Random 201 mg/dL (60-115); HDL Cholesterol 34 mg/dL; LDL Cholesterol Calculated 55 mg/dl; Potassium 5.3 mmol/L (3.3-5.1); Sodium 142 mmol/L (135-145); Total Protein 8.1 g/dL (6.5-8.0); Triglycerides 217 mg/dL
[2020-10-25 12:22] LABS: Thyroid Stimulating Hormone 2.01 uIU/mL (0.32-4.0)
[2020-10-25 12:37] LABS: WBC Urine 0-2 /HPF (0-4)
[2020-10-25 12:38] LABS: Bacteria Urine TRACE /LPF; Mucus Urine 1+ /LPF
== END 2020-10-25 10:50 | disposition home or self-care (01) ==
LOC: HO.LAB 10:49
PROVIDERS: PCP Internal Medicine; Visit Provider Internal Medicine
DX: I35.0 Nonrheumatic aortic (valve) stenosis (principal); E11.319 Type 2 diabetes mellitus with unspecified diabetic retinopathy without macular edema; S83.242A Other tear of medial meniscus, current injury, left knee, initial encounter; X58.XXXA Exposure to other specified factors, initial encounter; Y93.9 Activity, unspecified; Y92.9 Unspecified place or not applicable; Y99.9 Unspecified external cause status
CPT/HCPCS: 36415; 80048; 80061; 80076; 81001; 83036; 84443; 85027

== ENCOUNTER 2020-11-24 09:15 | Outpatient (REF) | payer MEDICARE, SELFPAY ==
[2020-11-24 09:58] LABS: MANUAL DIFF FLAG NO
[2020-11-24 10:05] LABS: Glucose Urine UA NEG (NEG); Leukocyte Esterase Urine NEG (NEG); Nitrite Urine NEG (NEG); PH 5.5 (5.0-8.0); Specific Gravity - Urine >= 1.030 (1.005-1.025); Urine Blood NEG (NEG); Urine Ketones NEG (NEG); Urine Protein 2+ MG/DL (NEG-TRACE)
[2020-11-24 10:07] LABS: Basophils Absolute Auto 0.1 X10*3/uL (0.0-0.2); Basophils Percent Auto 0.9 % (0-2); Eosinophils Absolute Auto 0.5 X10*3/uL (0.0-0.4); Hematocrit 37.2 % (42-52); Hemoglobin 12.7 g/dl (14.0-18.0); Imm Gran Abs Auto 0.04 X10*3/uL (0.00-0.03); Imm Gran Pct Auto 0.4 % (0.0-0.4); Immature Retic Fraction 11.3 % (2.3-13.4); Lymphocytes Absolute Auto 3.4 X10*3/uL (1.2-4.9); Lymphocytes Percent Auto 36.7 % (20-40); Mean Corpuscular HGB Conc 34.1 g/dl (31.0-36.0); Mean Corpuscular Hemoglobin 32.3 pg (27.0-33.0); Mean Corpuscular Volume 94.7 fL (80-98); Mean Platelet Volume 11.1 fL (9.4-12.4); Monocytes Absolute Auto 0.9 X10*3/uL (0.1-1.2); Neutrophils Absolute Auto 4.3 X10*3/uL (2.0-8.3); Platelet Count 171 X10*3/uL (160-400); Red Blood Count 3.93 X10*6/uL (4.60-5.80); Red Cell Distribution Width 13.4 % (11.0-16.0); Retic HGB Equivalent 35.9 pg (30.0-35.0); Reticulocyte Percent 2.1 % (0.5-1.8); Reticulocytes Absolute 0.082 X10*6/uL (0.026-0.095); White Blood Count 9.2 X10*3/uL (4.8-10.8)
[2020-11-24 10:08] LABS: Appearance Urine CLEAR; Color Urine YELLOW
[2020-11-24 10:50] LABS: Alanine Aminotransferase 24 U/L (0-40); Albumin Level 4.1 g/dL (3.5-5.0); Alkaline Phosphatase 76 U/L (39-117); Anion Gap 14 (12-20); Aspartate Amino Transferase 18 U/L (5-37); Bilirubin Total 0.5 mg/dL (0.0-1.0); Blood Urea Nitrogen 19 mg/dL (9-16); Calcium 9.4 mg/dL (8.4-10.2); Carbon Dioxide 26 mmol/L (22-29); Chloride 108 mmol/L (96-108); Estimated Glomerular Filt Rate 58; Glucose Random 177 mg/dL (60-115); Iron 68 mcg/dL (45-160); Percent Iron Saturation 25 % (15-50); Potassium 4.5 mmol/L (3.3-5.1); Sodium 143 mmol/L (135-145); Total Iron Binding Capacity 276 mcg/dL (228-428); Total Protein 7.4 g/dL (6.5-8.0); Unsaturated Iron Binding 208 ug/dL
[2020-11-24 11:10] LABS: Ferritin 179 ng/mL (20-250)
[2020-11-24 11:12] LABS: RBC Urine 0-2 /HPF (0); Squamous Epithelial Cell Urine TRACE /LPF; WBC Urine 0-2 /HPF (0-4)
[2020-11-24 11:15] LABS: Folate 18.4 ng/mL (> or = 4.0); Vitamin B12 688 pg/mL (200-900)
== END 2020-11-24 09:16 | disposition home or self-care (01) ==
LOC: HO.LAB 09:15
PROVIDERS: Internal Medicine; PCP Internal Medicine; Visit Provider Internal Medicine
DX: E87.5 Hyperkalemia (principal)
CPT/HCPCS: 36415; 80053; 81001; 81003; 82607; 82728; 82746; 83540; 85025; 85045

== ENCOUNTER → 2020-12-07 14:53 | Outpatient (BNVA) | payer MEDICARE, SELFPAY | PROVIDERS: PCP Internal Medicine; Visit Provider Orthopaedic Surgery | DX: M65.331 Trigger finger, right middle finger (principal) | CPT/HCPCS: 99212 ==

== ENCOUNTER → 2020-12-08 09:01 | Outpatient (BNVA) | payer MEDICARE, SELFPAY | PROVIDERS: PCP Internal Medicine; Referring Provider Internal Medicine; Visit Provider Internal Medicine Cardiovascular Disease | DX: I25.10 Atherosclerotic heart disease of native coronary artery without angina pectoris (principal); I35.0 Nonrheumatic aortic (valve) stenosis | CPT/HCPCS: 99212 ==

== ENCOUNTER 2021-01-30 09:43 | Emergency (ER) | payer MEDICARE, SELFPAY ==
--- NOTE | ~2021-01-30 | XR_ITS ---
EXAMINATION: XR CHEST CLINICAL INFORMATION: Shortness of breath and weakness. COMPARISON: Chest done on 12/02/2019. TECHNIQUE: 2 views of the chest were obtained. FINDINGS: Postoperative changes of sternotomy. No significant abnormality is noted involving the heart, lungs, mediastinum, bony thorax or soft tissues. XR/XR chest 2V IMPRESSION: Postoperative changes of sternotomy. No radiographic evidence of acute cardiopulmonary disease.
[2021-01-30 10:00] VITALS: BP 157/54; PULSE 74; RESP 18; TEMP 36.8; O2SAT 96; BMI 31.3
--- NOTE | 2021-01-30 10:31 | ED.GENADULT ---
HPI - General Adult General Chief complaint: General Medical Stated complaint: flu like Time Seen by Provider: 01/30/21 10:22 Source: patient Mode of arrival: ambulatory History of Present Illness HPI narrative: 75-year-old male with a past medical history of anxiety, , CAD, cardiomyopathy, CKD, CHF, diabetes, GERD, hyperlipidemia, HTN, PVD, presenting to the ED complaining of generalized fatigue/malaise/weakness, productive cough, myalgias, and mild SOB x3 days. Reports household with similar symptoms. Denies CP, fever, chills, recent travel, LE edema/calf pain, decreased p.o. intake Onset (ago): day(s) Related Data Home Medications Medication Instructions Recorded Confirmed atorvastatin 80 mg tablet 80 mg PO DAILY 01/07/20 12/08/20 latanoprost 0.005 % eye drops 1 drp OPHTHALMIC (EYE) BEDTIME 07/12/20 12/08/20 adalimumab 40 mg/0.8 mL mg SUBCUT Q2W 12/08/20 12/08/20 subcutaneous pen kit Previous Rx's Medication Instructions Recorded 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 meter (FreeStyle #1 ea 02/29/20 [place] Lite) insulin aspart U-100 100 unit/mL See Rx Instructions SUBCUT TID 90 07/12/20 (3 mL) subcutaneous pen Days #30 ml lancets 28 gauge #300 ea 07/12/20 pen needle, diabetic 32 gauge x #400 ea 07/12/20 (BD Martina 2nd Gen Pen Needle) FreeStyle Lite Strips (blood sugar #300 ea NS 08/01/20 diagnostic) insulin degludec 100 unit/mL (3 26 unit (0.26 mL) SUBCUT DAILY 08/01/20 mL) subcutaneous pen Days #30 ml gabapentin 300 mg capsule 300 mg PO BEDTIME #90 cap 08/22/20 tramadol 50 mg tablet 50 mg PO Q8H PRN #5 tab 09/25/20 amlodipine 10 mg tablet 10 mg PO DAILY #90 tab 11/16/20 aspirin 81 mg tablet,delayed 81 mg PO DAILY #90 tab 11/16/20 release losartan 25 mg tablet 25 mg PO DAILY 90 Days #90 tab 11/17/20 metoprolol succinate 25 mg 25 mg PO DAILY #90 tab 11/17/20 tablet,extended release 24 hr insulin lispro 100 unit/mL 5 - 7 unit (0.05 - 0.07 mL) SUBCUT 01/22/21 subcutaneous pen (Humalog KwikPen TID 90 Days #15 ml (U-100) Insulin) dulaglutide 3 mg/0.5 mL 3 mg (0.5 mL) SUBCUT QWEEK 90 Days 01/24/21 subcutaneous pen injector #6.5 ml (Trulicity) acetaminophen 500 mg tablet 500 mg PO Q6H PRN #20 tab 01/30/21 (Tylenol Extra Strength) benzonatate 200 mg capsule 200 mg PO TID PRN #20 cap 01/30/21 fluticasone propionate 50 2 spray INTRANASAL DAILY #16 g 01/30/21 mcg/actuation nasal spray,suspension (Flonase Allergy Relief) Allergies Allergy/AdvReac Type Severity Reaction Status Date / Time No Known Allergies Allergy Mild NONE Verified 11/17/20 12:42 Review of Systems Review of Systems: Constitutional: No Fever, No Chills, + Fatigue, + Malaise ENT/Mouth: No Ear Pain, No Nasal Congestion, No Sinus Pain, No Hoarseness, + sore throat, No Rhinorrhea, No Swallowing Difficulty Eyes: No Eye Pain, No Swelling, No Redness, No Foreign Body, No Discharge, No Vision Changes Cardiovascular: No Chest Pain, + SOB, No Dyspnea on Exertion, No Orthopnea, No Edema, Respiratory: + Cough, + Sputum, No Wheezing, No Smoke Exposure, No Dyspnea Gastrointestinal: No Nausea, No Vomiting, No Diarrhea, No Constipation, No Abdominal pain Genitourinary: No Dysuria, No Urinary Frequency, No Hematuria,No Flank Pain Musculoskeletal: No joint pain, + Myalgias, No Joint Swelling Skin: No Skin Lesions, No rash Neuro: + Generalized Weakness, No Dizziness, No Headache Yes all other systems are reviewed and are negative [facility] Past Medical History Attestation statement: The following information was validated with the patient. Medical History (Updated 01/30/21 @ 14:05 by KENNEDY Chi) Anxiety Aortic stenosis CAD (coronary artery disease) Cardiomyopathy Carotid artery stenosis CKD stage 3 due to type 2 diabetes mellitus Compression fracture of L1 lumbar vertebra Congestive heart failure Diabetes type 2, controlled Diabetic 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 diabetes mellitus Diabetic polyneuropathy associated with type 2 diabetes mellitus Diabetic retinopathy associated with type 2 diabetes mellitus Dyslipidemia GERD (gastroesophageal reflux disease) Glaucoma History of renal calculi Hypertension Iliac artery stenosis, bilateral Infective endocarditis Left carotid 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 Overweight (BMI 25.0-29.9) Positive TB test Pulmonary nodule PVD (peripheral vascular disease) Tobacco abuse Surgical History Hx of appendectomy Hx of arthroscopy of right knee Hx of cataract removal with insertion of prosthetic lens Hx of coronary artery bypass graft Hx of shoulder surgery Hx of tonsillectomy Family History Family History Father Stomach cancer Mother Diabetes Social History Social History Housing: Apartment Alcohol intake: never Patient Tobacco Use Status: Current everyday Tobacco user Tobacco use type: Cigarette Cigarette Packs Per Day: 0.25 Cigarettes Per Day: 5 Second Hand Smoke Exposure: Yes Advance Directives: No Advance Directives Information Provided: No Current occupational status: 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 Physical Exam Vital Signs: Vital Signs: Last Vital Signs Temp 98.3 F 01/30/21 10:00 Pulse 74 01/30/21 10:00 Resp 18 01/30/21 10:00 BP 157/54 H 01/30/21 10:00 Pulse Ox 96 01/30/21 10:00 Body Mass Index 31.3 Const: General: cooperative and healthy appearing Orientation/consciousness: patient oriented x3 Limitations: no limitations HENMT: Head: Yes normal to inspection Ears: hearing grossly normal bilaterally General nose exam: Normal external nose present Face and sinus: Yes normal facial exam Mouth: Normal oral and palatal mucosa present and no drooling Throat: Yes posterior oropharynx normal, Yes tonsils normal, Yes uvula midline, No peritonsillar mass and No uvular edema Eyes: General: appearance normal, both eyes and all related structures EOM: EOMs intact bilaterally Neck: Neck: Yes normal visual inspection and Yes no meningeal signs Resp: Effort & Inspection: normal respiratory effort Auscultation: clear to auscultation bilaterally, no crackles, no rales, no rhonchi and no wheezes Cardio: Rate: regular rate Heart sounds: S1 normal heart sound present and S2 normal heart sound present GI: Inspection: Yes normal to inspection Palpation (GI): Soft to palpation, nontender, no guarding and not rigid Skin: Rashes: no rashes Wounds: no wounds Neuro: General: patient oriented x3 and no meningeal signs Gait exam (Neuro): Normal gait present Extrem: General: Yes normal to inspection, Yes no pedal edema and Yes no calf tenderness Course Course Course Narrative: -rapid strep negative XR chest 2V IMPRESSION: Postoperative changes of sternotomy. No radiographic evidence of acute cardiopulmonary disease. >> COVID-19/influenza/RSV pending at this time. Will call patient with results. Discussed worrisome signs and symptoms and strict return precautions as needed close follow-up with PCP. He verbalized understanding feel safe for discharge home at this time -1400--patient positive for RSV. Called and spoke to patient about results, discussed worrisome signs and symptoms/strict return precautions Medical Decision Making MDM Narrative Medical decision making narrative: 75-year-old male with a past medical history of anxiety, , CAD, cardiomyopathy, CKD, CHF, diabetes, GERD, hyperlipidemia, HTN, PVD, presenting to the ED complaining of generalized fatigue/malaise/weakness, productive cough, myalgias, and mild SOB x3 days. On exam vital signs stable, NAD/nontoxic appearing, lungs CTA, abdomen soft/nontender, no pedal edema/calf tenderness. Concern for viral syndrome/COVID-19 vs pneumonia. Symptoms atypical for ACS. Low concern for CHF/PE Plan: COVID-19/RSV/influenza testing, CXR, rapid strep Lab Data Labs: Lab Results 01/30/21 01/30/21 Range/Units 10:48 10:48 Influenza Type A (PCR) NEGATIVE (Negative) Influenza Type B (PCR) NEGATIVE (Negative) RSV RNA Qual (PCR) POSITIVE A (Negative) SARS-CoV-2 RNA (RT-PCR) NEGATIVE (Negative) S. pyogenes GrpA [place] Negative (Negative) Discharge Plan Discharge Clinical Impression: RSV (respiratory syncytial virus infection) Patient Disposition: Home, Self-Care Instructions: Viral Syndrome (ED) Additional Instructions: Take Tylenol and Motrin at home as needed for body aches/myalgias. Please stay hydrated. Rest. Please follow-up with your doctor Flonase as a nasal decongestion, take as needed. Tessalon Perles for cough Based on your symptoms and history we have sent a COVID-19. Although your RESULT IS PENDING at this time. At this time you will be contacted with either NEGATIVE OR POSITIVE results. -Please wait until we contact you for your results. At this time you will be okay for discharge. Please plan for self quarantine for up to 14 days. Do not expose yourself to others. You may not go to work. If testing does come back negative you may return to activities as long as you are no longer having any symptoms for at least 3 days. Please continue to follow cold instructions and wash your hands frequently. You may take Tylenol as directed on the bottle for pain or fever. CDC Guidelines for home isolation: - Stay away from others - WEAR A MASK if you are sick AND STAY HOME - Cover your mouth and nose with a tissue when you cough or sneeze. Dispose of tissues in a lined trash can and wash your hands immediately with soap and water for at least 20 seconds. If soap and water are not available, clean hands with alcohol-based hand technical services coordinator that contains at least 60% alcohol. - Clean your hands often with soap and water for at least 20 seconds - Avoid touching your eyes, nose and mouth with unwashed hands - Do not share dishes, drinking glasses, cups, eating utensils, towels, or bedding with other people in your home. After using these items, wash them thoroughly with soap and water or put in the poured concrete wall technician. - Clean high-touch surfaces in your isolation area ( sick room and bathroom) every day; let a caregiver clean and disinfect high-touch surfaces in other areas of the home. Clean the area or item with soap and water or another detergent if it is dirty. Then, use a household disinfectant. - Limit contact with pets and animals: If you must care for a pet, wash your hands before and after interacting with them) Prescriptions: New acetaminophen [Tylenol Extra Strength] 500 mg tablet 500 mg PO Q6H PRN (Reason: pain or fever) Qty: 20 RF: 0 fluticasone propionate [Flonase Allergy Relief] 50 mcg/actuation spray,suspension 2 spray intranasal DAILY Qty: 16 RF: 0 benzonatate 200 mg capsule 200 mg PO TID PRN (Reason: cough) Qty: 20 RF: 0 No Action (DME) 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 meter [FreeStyle [place] Lite] Kit See Rx Instructions .ROUTE .MEDSUPPLY Qty: 1 RF: 0 gabapentin 300 mg capsule 300 mg PO BEDTIME Qty: 90 RF: 2 amlodipine 10 mg tablet 10 mg PO DAILY Qty: 90 RF: 1 aspirin 81 mg tablet,delayed release (DR/EC) 81 mg PO DAILY Qty: 90 RF: 3 insulin lispro [Humalog KwikPen Insulin] 100 unit/mL insulin pen 5 - 7 unit subcut TID 90 Days Qty: 15 RF: 1 Trulicity 3 mg/0.5 mL pen injector 3 mg subcut QWEEK 90 Days Qty: 6.5 RF: 1 tramadol 50 mg tablet 50 mg PO Q8H PRN (Reason: pain) Qty: 5 RF: 0 losartan 25 mg tablet 25 mg PO DAILY 90 Days Qty: 90 RF: 1 metoprolol succinate 25 mg tablet extended release 24 hr 25 mg PO DAILY Qty: 90 RF: 1 atorvastatin 80 mg tablet 80 mg PO DAILY RF: 0 adalimumab 40 mg/0.8 mL pen injector kit subcut Q2W RF: 0 (DME) FreeStyle Lite Strips Strip See Rx Instructions ea Not Applicable BID Qty: 300 RF: 3 insulin degludec 100 unit/mL (3 mL) insulin pen 26 unit subcut DAILY 90 Days Qty: 30 RF: 2 latanoprost 0.005 % drops 1 drp ophthalmic (eye) BEDTIME RF: 0 insulin aspart U-100 100 unit/mL (3 mL) insulin pen See Rx Instructions subcut TID 90 Days Qty: 30 RF: 2 (DME) pen needle, diabetic [BD Martina 2nd Gen Pen Needle] 32 gauge x 5/32 needle See Rx Instructions .MEDSUPPLY Qty: 400 RF: 4 (DME) lancets 28 gauge misc See Rx Instructions ea Not Applicable BID Qty: 300 RF: 3 Referrals: Po,Marcai Overton MD [Primary Care Provider] - 2 days Interventions: ED Discharge Assessment Last Done: 01/30/21 11:50 Discharge Date/Time: 01/30/21 11:52
[2021-01-30 11:05] LABS: IDNOW Serial# 08D9AD1C; Strep A Nucleic Acid Negative (Negative)
[2021-01-30 11:55] LABS: Influenza A PCR NEGATIVE (Negative); Influenza B PCR NEGATIVE (Negative); Resp Syncy Virus RNA Qual PCR POSITIVE (Negative); SARS COV2 PCR INHOUSE NEGATIVE (Negative)
== END 2021-01-30 11:52 | disposition home or self-care (01) ==
PROVIDERS: Physician Assistant; Emergency Provider Emergency Medicine; PCP Internal Medicine
DX: R05.9 Cough, unspecified (principal); B97.4 Respiratory syncytial virus as the cause of diseases classified elsewhere; R53.1 Weakness; E11.22 Type 2 diabetes mellitus with diabetic chronic kidney disease; I13.0 Hypertensive heart and chronic kidney disease with heart failure and stage 1 through stage 4 chronic kidney disease, or unspecified chronic kidney disease; N18.30 Chronic kidney disease, stage 3 unspecified; I50.9 Heart failure, unspecified; E78.5 Hyperlipidemia, unspecified; F17.200 Nicotine dependence, unspecified, uncomplicated; Z79.4 Long term (current) use of insulin; Z79.02 Long term (current) use of antithrombotics/antiplatelets; Z79.899 Other long term (current) drug therapy
CPT/HCPCS: 0241U; 36415; 71046; 87651; 99282; 99283

== ENCOUNTER 2021-01-31 15:59 | Emergency (ER) | payer MEDICARE, SELFPAY ==
--- NOTE | ~2021-01-31 | XR_ITS ---
EXAMINATION: XR CHEST CLINICAL INFORMATION: Shortness of breath. COMPARISON: Chest done on 01/30/2021. TECHNIQUE: 2 views of the chest were obtained. FINDINGS: No evidence of any dense airspace consolidation is noted on either side. Stable mild prominent bronchovascular markings are noted bilaterally. No evidence of any pleural effusion or pneumothorax. Postsurgical changes of sternotomy. The cardiac mediastinal silhouette is within normal limit. Overall, no significant change. XR/XR chest 2V IMPRESSION: No radiographic evidence of any acute cardiopulmonary disease, unchanged since 02/09/2021.
--- NOTE | 2021-01-31 16:20 | ED_ITS ---
HPI - SOB/Dyspnea General Chief Complaint: Upper Respiratory Symptoms Stated Complaint: sob Time Seen by Provider: 01/31/21 16:06 Source: patient Mode of arrival: ambulatory Limitations: no limitations History of Present Illness HPI Narrative: Patient is 75 years old with history of diabetes, congestive heart failure, coronary artery disease, CABG, no known lung condition never used an inhaler in the past was seen here yesterday for cough for last 4 days diagnosis RSV comes back as he is wheezing now and more short of breath but saturating 95% on arrival at room air no fever no chills family member also sick with same Related Data Home Medications Medication Instructions Recorded Confirmed atorvastatin 80 mg tablet 80 mg PO DAILY 01/07/20 12/08/20 latanoprost 0.005 % eye drops 1 drp OPHTHALMIC (EYE) BEDTIME 07/12/20 12/08/20 adalimumab 40 mg/0.8 mL mg SUBCUT Q2W 12/08/20 12/08/20 subcutaneous pen kit Previous Rx's Medication Instructions Recorded 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 meter (FreeStyle #1 ea 02/29/20 Gaylord Lite) insulin aspart U-100 100 unit/mL See Rx Instructions SUBCUT TID 90 07/12/20 (3 mL) subcutaneous pen Days #30 ml lancets 28 gauge #300 ea 07/12/20 pen needle, diabetic 32 gauge x #400 ea 07/12/20 (BD Martina 2nd Gen Pen Needle) FreeStyle Lite Strips (blood sugar #300 ea NS 08/01/20 diagnostic) insulin degludec 100 unit/mL (3 26 unit (0.26 mL) SUBCUT DAILY 08/01/20 mL) subcutaneous pen Days #30 ml gabapentin 300 mg capsule 300 mg PO BEDTIME #90 cap 08/22/20 tramadol 50 mg tablet 50 mg PO Q8H PRN #5 tab 09/25/20 amlodipine 10 mg tablet 10 mg PO DAILY #90 tab 11/16/20 aspirin 81 mg tablet,delayed 81 mg PO DAILY #90 tab 11/16/20 release losartan 25 mg tablet 25 mg PO DAILY 90 Days #90 tab 11/17/20 metoprolol succinate 25 mg 25 mg PO DAILY #90 tab 11/17/20 tablet,extended release 24 hr insulin lispro 100 unit/mL 5 - 7 unit (0.05 - 0.07 mL) SUBCUT 01/22/21 subcutaneous pen (Humalog KwikPen TID 90 Days #15 ml (U-100) Insulin) dulaglutide 3 mg/0.5 mL 3 mg (0.5 mL) SUBCUT QWEEK 90 Days 01/24/21 subcutaneous pen injector #6.5 ml (Trulicity) acetaminophen 500 mg tablet 500 mg PO Q6H PRN #20 tab 01/30/21 (Tylenol Extra Strength) benzonatate 200 mg capsule 200 mg PO TID PRN #20 cap 01/30/21 fluticasone propionate 50 2 spray INTRANASAL DAILY #16 g 01/30/21 mcg/actuation nasal spray,suspension (Flonase Allergy Relief) albuterol sulfate 90 mcg/actuation 2 puff INHALATION Q4-6H PRN #8.5 g 01/31/21 aerosol inhaler (ProAir HFA) codeine 10 mg-guaifenesin 100 mg/5 10 ml PO Q6H PRN #237 ml 01/31/21 mL oral liquid prednisone 20 mg tablet 40 mg PO DAILY #10 tab 01/31/21 Allergies Allergy/AdvReac Type Severity Reaction Status Date / Time No Known Allergies Allergy Mild NONE Verified 11/17/20 12:42 Review of Systems Review of Systems: Yes all other systems are reviewed and are negative [facility] Past Medical History Medical History Anxiety Aortic stenosis CAD (coronary artery disease) Cardiomyopathy Carotid artery stenosis CKD stage 3 due to type 2 diabetes mellitus Compression fracture of L1 lumbar vertebra Congestive heart failure Diabetes type 2, controlled Diabetic 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 diabetes mellitus Diabetic polyneuropathy associated with type 2 diabetes mellitus Diabetic retinopathy associated with type 2 diabetes mellitus Dyslipidemia GERD (gastroesophageal reflux disease) Glaucoma History of renal calculi Hypertension Iliac artery stenosis, bilateral Infective endocarditis 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 Overweight (BMI 25.0-29.9) Positive TB test Pulmonary nodule PVD (peripheral vascular disease) Tobacco abuse Surgical History Hx of appendectomy Hx of arthroscopy of right knee Hx of cataract removal with insertion of prosthetic lens Hx of coronary artery bypass graft Hx of shoulder surgery Hx of tonsillectomy Family History Family History Father Stomach cancer Mother Diabetes Social History Social History Housing: Apartment Alcohol intake: never Patient Tobacco Use Status: Current everyday Tobacco user Tobacco use type: Cigarette Cigarette Packs Per Day: 0.25 Cigarettes Per Day: 5 Second Hand Smoke Exposure: Yes Advance Directives: No Advance Directives Information Provided: Yes Current occupational status: 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 Oriented X3. No acute distress. Eyes: No pallor or icterus ENT: Pharynx normal. Oral Mucosa moist Neck: Normal inspection. Neck supple. CVS: Normal heart rate and rhythm. Pulses normal. Respiratory: Mild respiratory distress. Equal air entry bilateral, bilateral wheezing and rhonchi no crackles Abdomen: Soft and nontender. Bowel sounds are present, no mass palpable, no CVA tenderness Skin: Skin warm and dry. Normal skin color. Normal skin turgor. Extremities: No lower extremity edema. No calf tenderness Neuro: Oriented X 3. MDM - SOB/Dyspnea MDM Narrative Medical decision making narrative: Patient felt better after nebulizing treatment ambulatory pulse ox about 95% at room air will discharge patient home on prednisone and albuterol inhaler Medical Records Attestation: I reviewed the patient's medical records. Lab Data Attestation: I reviewed the patient's lab results. Result diagrams: 01/31/21 17:24 01/31/21 17:24 Labs: Lab Results 01/31/21 01/31/21 Range/Units 17:24 17:24 WBC 6.7 (4.8-10.8) X10*3/uL RBC 3.50 L (4.60-5.80) X10*6/uL Hgb 11.5 L (14.0-18.0) g/dl Hct 33.2 L (42.0-52.0) % MCV 94.9 (80.0-98.0) fL MCH 32.9 (27.0-33.0) pg MCHC 34.6 (31.0-36.0) g/dl RDW 13.2 (11.0-16.0) % Plt Count 118 L (160-400) X10*3/uL MPV 10.6 (9.4-12.4) fL Immature Gran % (Auto) 0.1 (0.0-0.4) % Neut % (Auto) 37.6 L (45-73) % Lymph % (Auto) 43.7 H (20-40) % [place] % (Auto) 14.9 H (2-11) % Eos % (Auto) 3.1 (0-4) % Baso % (Auto) 0.6 (0-2) % Lymph # (Auto) 2.9 (1.2-4.9) X10*3/uL [place] # (Auto) 1.0 (0.1-1.2) X10*3/uL Eos # (Auto) 0.2 (0.0-0.4) X10*3/uL Baso # (Auto) 0.0 (0.0-0.2) X10*3/uL Abs Immat Gran (auto) 0.01 (0.00-0.03) X10*3/uL Absolute Neuts (auto) 2.5 (2.0-8.3) x10*3/uL Absolute Nucleated RBC 0.000 (0.0-0.012) X10*3/uL Nucleated RBC % (auto) 0.0 (0.0-0.2) /100WBC Sodium 138 (135-145) mmol/L Potassium 4.8 (3.3-5.1) mmol/L Chloride 105 (96-108) mmol/L Carbon Dioxide 25 (22-29) mmol/L Anion Gap 13 (12-20) BUN 20 H (9-16) mg/dL Creatinine 1.50 H (0.5-1.4) mg/dL Estim Creat Clear Calc 45.0 Estimated GFR 46 Random Glucose 380 H* (60-115) mg/dL Calcium 8.5 D (8.4-10.2) mg/dL Discharge Plan Discharge Clinical Impression: Acute bronchiolitis due to respiratory syncytial virus Patient Disposition: Home, Self-Care Instructions: Respiratory Syncytial Virus (ED) Additional Instructions: Use inhaler as advised Take prednisone as prescribed Cough syrup as advised Report to ER if increased shortness of breath or not feeling better Prescriptions: New codeine-guaifenesin 10-100 mg/5 mL liquid 10 ml PO Q6H PRN (Reason: cough) Qty: 237 RF: 0 prednisone 20 mg tablet 40 mg PO DAILY Qty: 10 RF: 0 albuterol sulfate [ProAir HFA] 90 mcg/actuation HFA aerosol inhaler 2 puff inhalation Q4-6H PRN (Reason: Wheezing) Qty: 8.5 RF: 0 No Action (DME) 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 meter [FreeStyle Gaylord Lite] Kit See Rx Instructions .ROUTE .MEDSUPPLY Qty: 1 RF: 0 gabapentin 300 mg capsule 300 mg PO BEDTIME Qty: 90 RF: 2 amlodipine 10 mg tablet 10 mg PO DAILY Qty: 90 RF: 1 aspirin 81 mg tablet,delayed release (DR/EC) 81 mg PO DAILY Qty: 90 RF: 3 insulin lispro [Humalog KwikPen Insulin] 100 unit/mL insulin pen 5 - 7 unit subcut TID 90 Days Qty: 15 RF: 1 Trulicity 3 mg/0.5 mL pen injector 3 mg subcut QWEEK 90 Days Qty: 6.5 RF: 1 tramadol 50 mg tablet 50 mg PO Q8H PRN (Reason: pain) Qty: 5 RF: 0 acetaminophen [Tylenol Extra Strength] 500 mg tablet 500 mg PO Q6H PRN (Reason: pain or fever) Qty: 20 RF: 0 fluticasone propionate [Flonase Allergy Relief] 50 mcg/actuation spray,suspension 2 spray intranasal DAILY Qty: 16 RF: 0 benzonatate 200 mg capsule 200 mg PO TID PRN (Reason: cough) Qty: 20 RF: 0 losartan 25 mg tablet 25 mg PO DAILY 90 Days Qty: 90 RF: 1 metoprolol succinate 25 mg tablet extended release 24 hr 25 mg PO DAILY Qty: 90 RF: 1 atorvastatin 80 mg tablet 80 mg PO DAILY RF: 0 adalimumab 40 mg/0.8 mL pen injector kit subcut Q2W RF: 0 (DME) FreeStyle Lite Strips Strip See Rx Instructions ea Not Applicable BID Qty: 300 RF: 3 insulin degludec 100 unit/mL (3 mL) insulin pen 26 unit subcut DAILY 90 Days Qty: 30 RF: 2 latanoprost 0.005 % drops 1 drp ophthalmic (eye) BEDTIME RF: 0 insulin aspart U-100 100 unit/mL (3 mL) insulin pen See Rx Instructions subcut TID 90 Days Qty: 30 RF: 2 (DME) pen needle, diabetic [BD Martina 2nd Gen Pen Needle] 32 gauge x 5/32 needle See Rx Instructions .MEDSUPPLY Qty: 400 RF: 4 (DME) lancets 28 gauge misc See Rx Instructions ea Not Applicable BID Qty: 300 RF: 3 Interventions: ED Discharge Assessment Last Done: 01/31/21 20:16 Discharge Date/Time: 01/31/21 20:16
[2021-01-31 16:27] VITALS: BP 155/64; PULSE 66; RESP 22; TEMP 36.5; O2SAT 95; BMI 31.3
[2021-01-31] MEDS: Albuterol/Iprat 2.5/0.5MG 3 ML AMPUL.NEB INHALE (16:50)
[2021-01-31 16:51] VITALS: PULSE 62; O2SAT 95
[2021-01-31 17:28] LABS: MANUAL DIFF FLAG NO
[2021-01-31 17:34] LABS: Basophils Percent Auto 0.6 % (0-2); Eosinophils Absolute Auto 0.2 X10*3/uL (0.0-0.4); Eosinophils Percent Auto 3.1 % (0-4); Hematocrit 33.2 % (42.0-52.0); Hemoglobin 11.5 g/dl (14.0-18.0); Imm Gran Abs Auto 0.01 X10*3/uL (0.00-0.03); Imm Gran Pct Auto 0.1 % (0.0-0.4); Lymphocytes Absolute Auto 2.9 X10*3/uL (1.2-4.9); Lymphocytes Percent Auto 43.7 % (20-40); Mean Corpuscular HGB Conc 34.6 g/dl (31.0-36.0); Mean Corpuscular Hemoglobin 32.9 pg (27.0-33.0); Mean Corpuscular Volume 94.9 fL (80.0-98.0); Mean Platelet Volume 10.6 fL (9.4-12.4); Monocytes Percent Auto 14.9 % (2-11); Neutrophils Absolute Auto 2.5 x10*3/uL (2.0-8.3); Neutrophils Percent Auto 37.6 % (45-73); Platelet Count 118 X10*3/uL (160-400); Red Cell Distribution Width 13.2 % (11.0-16.0); White Blood Count 6.7 X10*3/uL (4.8-10.8)
[2021-01-31 17:49] LABS: Anion Gap 13 (12-20); Blood Urea Nitrogen 20 mg/dL (9-16); Calcium 8.5 mg/dL (8.4-10.2); Carbon Dioxide 25 mmol/L (22-29); Chloride 105 mmol/L (96-108); Estimated Glomerular Filt Rate 46; Potassium 4.8 mmol/L (3.3-5.1); Sodium 138 mmol/L (135-145)
[2021-01-31] MEDS: Albuterol Sulfate (0.083%) 2.5 MG/3 ML VIAL.NEB 5 MG INHALE (18:38)
[2021-01-31 18:39] VITALS: PULSE 95
[2021-01-31] MEDS: dexAMETHasone 2 MG TABLET 10 MG PO (18:41)
[2021-01-31 19:45] LABS: Glucose Random 380 mg/dL (60-115)
[2021-01-31 19:56] VITALS: BP 150/53; PULSE 75; TEMP 36.9; O2SAT 94
[2021-01-31 20:06] VITALS: BP 158/54; PULSE 77; RESP 16; TEMP 36.5; O2SAT 94
[2021-01-31] MEDS: Albuterol Sulfate 90 MCG 8 GM INHALER 2 PUFF INHALE (20:06)
== END 2021-01-31 20:16 | disposition home or self-care (01) ==
PROVIDERS: Emergency Provider Internal Medicine; PCP Internal Medicine
DX: J21.0 Acute bronchiolitis due to respiratory syncytial virus (principal); I13.0 Hypertensive heart and chronic kidney disease with heart failure and stage 1 through stage 4 chronic kidney disease, or unspecified chronic kidney disease; E11.22 Type 2 diabetes mellitus with diabetic chronic kidney disease; N18.9 Chronic kidney disease, unspecified; I50.9 Heart failure, unspecified; I25.10 Atherosclerotic heart disease of native coronary artery without angina pectoris; Z79.4 Long term (current) use of insulin; Z95.1 Presence of aortocoronary bypass graft
CPT/HCPCS: 36415; 71046; 80048; 85025; 94640; 96374; 99284; 99285; J8540

== ENCOUNTER → 2021-02-13 12:42 | Outpatient (BNVA) | payer MEDICARE, SELFPAY | PROVIDERS: PCP Internal Medicine; Visit Provider Orthopaedic Surgery | DX: M65.331 Trigger finger, right middle finger (principal) | CPT/HCPCS: 20550; 99202; J1100 ==

== ENCOUNTER → 2021-02-23 12:15 | Outpatient (BNVA) | payer MEDICARE, SELFPAY | PROVIDERS: PCP Internal Medicine; Visit Provider Nurse Practitioner Gerontology | DX: E11.21 Type 2 diabetes mellitus with diabetic nephropathy (principal); E11.42 Type 2 diabetes mellitus with diabetic polyneuropathy; E11.319 Type 2 diabetes mellitus with unspecified diabetic retinopathy without macular edema; E11.65 Type 2 diabetes mellitus with hyperglycemia; E78.5 Hyperlipidemia, unspecified; E04.9 Nontoxic goiter, unspecified; E11.22 Type 2 diabetes mellitus with diabetic chronic kidney disease; I12.9 Hypertensive chronic kidney disease with stage 1 through stage 4 chronic kidney disease, or unspecified chronic kidney disease; N18.30 Chronic kidney disease, stage 3 unspecified; Z79.4 Long term (current) use of insulin | CPT/HCPCS: 82947; 99212 ==

== ENCOUNTER → 2021-03-06 13:49 | Outpatient (BNVA) | payer MEDICARE, SELFPAY | PROVIDERS: PCP Internal Medicine; Visit Provider Surgery Vascular Surgery | DX: I73.9 Peripheral vascular disease, unspecified (principal); I77.9 Disorder of arteries and arterioles, unspecified | CPT/HCPCS: 99212 ==

== ENCOUNTER 2021-03-16 09:20 | Outpatient (REF) | payer MEDICARE, SELFPAY ==
--- NOTE | ~2021-03-16 | US_ITS ---
EXAMINATION: US EXTRACRANIAL CAROTID DUPLEX, BILATERAL CLINICAL INFORMATION: History of diabetes and smoking, disorder of the arteries COMPARISON: Carotid ultrasound on 04/04/2020 TECHNIQUE: Real-time ultrasound and Doppler techniques (integrating B-mode 2-D vascular images, Doppler spectral analysis and color-flow Doppler imaging) were utilized to interrogate the extracranial carotid arteries, the vertebral arteries and proximal subclavian arteries bilaterally. The degree of stenosis is determined by criteria similar to NASCET. FINDINGS: Right Side: 1. There is mild atherosclerotic plaque seen in the bifurcation/proximal ICA region. 2. The common carotid artery PSV proximally is 68 cm/s and distally 85 cm/s. 3. The proximal internal carotid artery velocities are 95 cm/s systolic and 19 cm/s diastolic. 4. The proximal external carotid artery PSV is 180 cm/s. 5. The vertebral artery shows antegrade flow. 6. The subclavian artery waveforms are normal. Left Side: 1. There is mild atherosclerotic plaque seen in the bifurcation/proximal ICA region. 2. The common carotid artery PSV proximally is 127 cm/s and distally 146 cm/s. 3. The proximal internal carotid artery velocities are 119 cm/s systolic and 10 cm/s diastolic. 4. The proximal external carotid artery PSV is 105 cm/s. 5. The vertebral artery shows antegrade flow. 6. The subclavian artery waveforms are normal. US/US carotid duplex BI IMPRESSION: 1. RIGHT: Minimal, non-hemodynamically significant stenosis of the proximal right internal carotid artery corresponding to a 0-49% stenosis by velocity criteria. 2. LEFT: Minimal, non-hemodynamically significant stenosis of the proximal left internal carotid artery corresponding to a 0-49% stenosis by velocity criteria. 3. There is no change in the category severity of disease when compared to the previous study dated 04/04/2020.
--- NOTE | ~2021-03-16 | US_ITS ---
EXAMINATION: US RETROPERITONEAL LIMITED (AORTA) CLINICAL INFORMATION: History of iliac stents. COMPARISON: None TECHNIQUE: Dial-scale, color Doppler and spectral Doppler evaluation of the abdominal aorta. FINDINGS: There is atherosclerotic disease. The measurements of the aorta in maximum AP dimensions respectively are as follows: Proximal: 2.4 cm. Mid: 1.7 cm. Distal: 1.4 cm. PSV: 136 cm/s. Right common iliac artery: 247 cm/sec Left common iliac artery: 181 cm/sec US/US abdominal aortic aneurysm IMPRESSION: Elevated velocities in the bilateral common iliac arteries suggests mild stenosis. No aortic or iliac artery aneurysm.
--- NOTE | ~2021-03-16 | US_ITS ---
EXAMINATION: US NONINVASIVE ASSESSMENT OF THE BILATERAL LOWER EXTREMITIES WITH ARTERIAL DUPLEX AND ANKLE BRACHIAL INDICES (ABIS) CLINICAL INFORMATION: History vascular surgery and iliac stents, hypertension, smoking, hyperlipidemia COMPARISON: None TECHNIQUE: Duplex Doppler techniques with waveform analysis and measurement of velocities in the common femoral, profunda femoris, superficial femoral, popliteal and tibial arteries were performed. In addition, ankle pulse volume recordings, ankle pressure measurements and ankle brachial indices were obtained of the lower extremity arterial system bilaterally. The study was performed only at rest. FINDINGS: NONINVASIVE ASSESSMENT OF THE ARTERIES OF BOTH LOWER EXTREMITIES WITH ABIs: RIGHT LEG: Ankle-brachial index: 1.36 Ankle PVR: Monophasic LEFT LEG: Ankle-brachial index: 1.36 Left ankle PVR: Monophasic STAR Reference: 0.9 - 1.4 = normal - no significant arterial disease 0.7 - 0.89 = mild peripheral arterial disease 0.51 - 0.69 = moderate peripheral arterial disease ? 0.50 = severe peripheral arterial disease BILATERAL LOWER EXTREMITY DUPLEX ULTRASOUND: RIGHT LEG: Common femoral artery: 262 cm/s Diastolic flow reversal: Yes Profunda femoris artery: 184 cm/s. Diastolic flow reversal: Yes Superficial femoral artery (proximal): 227 cm/s Diastolic flow reversal: Yes Superficial femoral artery (mid): 227 cm/s. Diastolic flow reversal: Yes Superficial femoral artery (distal): 125 cm/s. Diastolic flow reversal: Yes Popliteal artery: 70 cm/s. Diastolic flow reversal: Yes Posterior tibial artery: 35 cm/s. Diastolic flow reversal: Yes Focal short segment occlusion of the right mid SFA reconstituted by collaterals LEFT LEG: Common femoral artery: 192 cm/s. Diastolic flow reversal: Yes Profunda femoris artery: 203 cm/s. Diastolic flow reversal: Yes Superficial femoral artery (proximal): 168 cm/s. Diastolic flow reversal: Yes Superficial femoral artery (mid): 151 cm/s. Diastolic flow reversal: Yes Superficial femoral artery (distal): 110 cm/s. Diastolic flow reversal: Yes Popliteal artery: 46 cm/s Diastolic flow reversal: Yes Posterior tibial artery: 65 cm/s Diastolic flow reversal: Yes US/US arterial duplex LE BI IMPRESSION: RIGHT LEG: Focal short segment occlusion in the right mid SFA reconstituted via collaterals. Severe stenosis of the right common femoral artery. Scattered areas of mild-moderate stenosis throughout the remainder of the right lower extremity. LEFT LEG: Scattered areas of mild/moderate stenosis throughout the course of the left lower extremity. Elevated bilateral ABIs suggest calcific atherosclerotic disease.
== END 2021-03-16 09:21 | disposition home or self-care (01) ==
LOC: HO.US 09:20
PROVIDERS: PCP Internal Medicine; Visit Provider Surgery Vascular Surgery
DX: I73.9 Peripheral vascular disease, unspecified (principal); I77.9 Disorder of arteries and arterioles, unspecified
CPT/HCPCS: 76706; 93880; 93923; 93925

== ENCOUNTER 2021-03-19 12:34 | Outpatient (REF) | payer MEDICARE, SELFPAY ==
--- NOTE | ~2021-03-19 | US_ITS ---
EXAMINATION: US THYROID CLINICAL INFORMATION: Nontoxic multinodular goiter COMPARISON: None TECHNIQUE: Linear transducer lozada-scale and color Doppler examination with attention to the region of the thyroid. FINDINGS: SIZE: Measurements of the thyroid lobes and nodules are given in sagittal, anteroposterior and transverse dimensions respectively. Right Thyroid Lobe: 3.8 x 2.2 x 1.1 cm, volume 4.9 mL. Parenchyma: The gland echotexture is homogeneous. Thyroid vascularity is normal. Left Thyroid Lobe: 3.9 x 1.6 x 1.6 cm, volume 5.0 mL. Parenchyma: The gland echotexture is homogeneous. Thyroid vascularity is normal. Isthmus: 0.5 cm in maximum AP dimension. No focal thyroid nodule is seen. NODES: A single right-sided lymph node is present measuring 1.7 x 0.6 x 0.6 cm. Incidental note made of carotid plaque seen on prior ultrasound studies. US/US thyroid IMPRESSION: Normal appearing thyroid. No follow-up is needed. ACR TI-RADS RECOMMENDATION REFERENCE: Ultrasound-guided fine-needle aspiration, followup ultrasound, no further follow up. * TR1 (0 point) and TR 2 (2 points): No FNA or follow up * TR3 (3 points): FNA if more than or equal to 2.5 cm in maximum dimension, followup ultrasound in 1, 3 and 5 years if 1.5 to 2.4 cm in maximum dimension. * TR4 (4-6 points): FNA if more than or equal to 1.5 cm in maximum dimension, followup ultrasound in 1, 2, 3 and 5 years if 1 to 1.4 cm in maximum dimension. * TR5 (more than or equal to 7 points): FNA if more than or equal to 1 cm in maximum dimension, followup ultrasound every year for 5 years if 0.5 to 0.9 cm in maximum dimension. * TR3, TR4 or TR5 nodules that are below the size threshold for follow up receive no follow up.
== END 2021-03-19 12:35 | disposition home or self-care (01) ==
LOC: HO.US 12:34
PROVIDERS: PCP Internal Medicine; Visit Provider Internal Medicine
DX: E04.2 Nontoxic multinodular goiter (principal)
CPT/HCPCS: 76536

== ENCOUNTER → 2021-03-22 10:43 | Outpatient (BNVA) | payer MEDICARE, SELFPAY | PROVIDERS: PCP Internal Medicine; Visit Provider Surgery Vascular Surgery | DX: I73.9 Peripheral vascular disease, unspecified (principal); I77.9 Disorder of arteries and arterioles, unspecified | CPT/HCPCS: 99212 ==

== ENCOUNTER 2021-03-28 05:57 | Day surgery (SDC) | payer MEDICARE, SELFPAY ==
[2021-03-27 10:34] VITALS: BMI 30.8
[2021-03-28] VITALS (7 sets, daily range): BP systolic 120–152; BP diastolic 55–79; PULSE 64–78; RESP 16–18; TEMP 36.8–37.2; O2SAT 95–99
[2021-03-28 06:29] LABS: MANUAL DIFF FLAG NO
[2021-03-28 06:43] LABS: Basophils Absolute Auto 0.1 X10*3/uL (0.0-0.2); Basophils Percent Auto 0.6 % (0-2); Eosinophils Absolute Auto 0.5 X10*3/uL (0.0-0.4); Eosinophils Percent Auto 4.7 % (0-4); Hematocrit 39.4 % (42.0-52.0); Hemoglobin 13.2 g/dl (14.0-18.0); Imm Gran Abs Auto 0.02 X10*3/uL (0.00-0.03); Imm Gran Pct Auto 0.2 % (0.0-0.4); Lymphocytes Absolute Auto 4.5 X10*3/uL (1.2-4.9); Lymphocytes Percent Auto 38.6 % (20-40); Mean Corpuscular HGB Conc 33.5 g/dl (31.0-36.0); Mean Corpuscular Hemoglobin 32.2 pg (27.0-33.0); Mean Corpuscular Volume 96.1 fL (80.0-98.0); Monocytes Percent Auto 8.7 % (2-11); Neutrophils Absolute Auto 5.5 x10*3/uL (2.0-8.3); Neutrophils Percent Auto 47.2 % (45-73); Platelet Count 188 X10*3/uL (160-400); Red Cell Distribution Width 13.3 % (11.0-16.0); White Blood Count 11.5 X10*3/uL (4.8-10.8)
[2021-03-28 06:46] LABS: Blood Urea Nitrogen 21 mg/dL (9-16); Creatinine Clr Calc Pharmacy 55.3; Estimated Glomerular Filt Rate 58
[2021-03-28 06:56] LABS: Glucose, Whole Blood 79 mg/dL (60-115)
--- NOTE | 2021-03-28 09:22 | W.PM.OPN ---
Operative Note Operative Note Date of Service: 03/28/21 Narrative: Angiogram report from [facility] Preoperative diagnosis: Atherosclerosis of right lower extremity with activity limiting claudication Postoperative diagnosis: Same Procedure: 1. Ultrasound-guided left common femoral access 2. Aortogram with right lower extremity runoff 3. Atherectomy and stent of right SFA Surgeon:Mitchell Acosta M.D., FACS, RPVI [employer] Deputy Sheriff:None Anesthesia: Local with moderate conscious sedation. Total intraservice moderate sedation time was 60 minutes. I monitored the patient's level of consciousness and physiologic status continuously throughout the procedure. Specimens:none Drains:none Estimated blood loss: Less than 10 ml Implant: Ev 3 6 x 60 self expanding stent Indications: 75-year-old gentleman who is a smoker with prior endovascular intervention on surveillance follow-up was noted to have high-grade stenosis in the SFA. It was clinically significant and he was demonstrating activity limiting claudication. He now presents for endovascular intervention The patient has signed the informed consent after reviewing risks, complications, benefits, and alternatives previously discussed with the patient. The patient was given the opportunity to ask any additional questions or voice any concerns. All questions were answered to the patient's satisfaction. Procedure in detail: Patient was brought to the angiography suite prior to which a time-out was called for patient identification and site verification. Bilateral groins were prepped and draped in the standard surgical fashion. Under ultrasound guidance left common femoral was punctured with micro puncture needle and wire. Subsequently a precision 5 Indian sheath was then placed. Bentson wire was advanced to the level of the aorta. 5 Indian Flush catheter was brought up and parked at the level of the renal arteries. Aortogram was then undertaken. Catheter was brought down to the level of the iliac bifurcation. Iliacs were subsequently imaged. Catheter was then brought in up and over to the right side SFA. Runoff study was then undertaken. He was noted to have high-grade stenosis on the right SFA near Tavon's canal. At this time we administered 5000 units of systemic heparin. We advanced a Glidewire Advantage. We confirmed true lumen with a now be cross catheter. We then exchanged out for a 6 Indian spider wire. Subsequently atherectomy was performed with a Hawk 1 atherectomy 6 Indian. This was in the distal right SFA. Multiple unidirectional passes were undertaken. Once this was accomplished completion angiogram did demonstrate residual stenosis. We exchanged out the spider wire once again for a Glidewire Advantage. We plasty this area with a 6 x 60 balloon. There was still residual stenosis and a 6 x 60 stent was then placed. Apposition of the vessel wall was obtained with a 6 x 60 balloon. Completion angiogram demonstrated excellent result. Catheter wire sheath was brought back to the ipsilateral side. StarClose closure device was then deployed. Interpretation of films: 1. Ultrasound demonstrates appropriate femoral puncture. Image of which was saved. 2. Aortogram demonstrates appropriate caliber aorta. Minimal disease. Appropriate take-off of the renals. 3. Iliac images demonstrate kissing bilateral iliac stents which were patent. There was 1 stent which did go up into the aorta slightly. On the left side. No other significant stenosis noted throughout the iliac tree. 4. Right Leg Common femoral artery: Mild disease Profundus Femoris: No significant disease Superficial femoral artery: Mild to moderate throughout with high-grade stenosis at Tavon's canal Popliteal artery (p1,p2,p3): Patent Anterior tibial artery: Patent Peroneal artery: Diminutive but patent occludes towards the ankle Posterior tibial artery: Patent Dorsalis pedis/plantar arch: Intact Conclusion: 1. Successful atherectomy and stent of right SFA 2. Anticoagulation status: Patient will require aspirin and Plavix for approximately 6 months in duration. This note is constructed using voice recognition software. While every effort has been made to ensure accuracy, textile pin worker errors may have been included. Thank you for allowing me to participate in the care of your patient. Yours sincerely, Mitchell Acosta MD, FACS, R.P.V.I.
[2021-03-28] MEDS: 0.9 % Sodium Chloride 1,000 ML 100 ML IVCONT (09:30)
[2021-03-28] MEDS: Clopidogrel Bisulfate 300 MG TABLET PO (09:43)
[2021-03-28] MEDS: iohexoL 300 MG/ML 100 ML INFUS..BTL IV (13:24)
== END 2021-03-28 11:45 | disposition home or self-care (01) ==
PROVIDERS: PCP Internal Medicine; Visit Provider Surgery Vascular Surgery
DX: E11.51 Type 2 diabetes mellitus with diabetic peripheral angiopathy without gangrene (principal); I70.211 Atherosclerosis of native arteries of extremities with intermittent claudication, right leg; E11.21 Type 2 diabetes mellitus with diabetic nephropathy; E11.42 Type 2 diabetes mellitus with diabetic polyneuropathy; E11.319 Type 2 diabetes mellitus with unspecified diabetic retinopathy without macular edema; Z79.4 Long term (current) use of insulin; I35.0 Nonrheumatic aortic (valve) stenosis; I25.10 Atherosclerotic heart disease of native coronary artery without angina pectoris; Z95.1 Presence of aortocoronary bypass graft; I42.9 Cardiomyopathy, unspecified; I13.0 Hypertensive heart and chronic kidney disease with heart failure and stage 1 through stage 4 chronic kidney disease, or unspecified chronic kidney disease; N18.30 Chronic kidney disease, stage 3 unspecified; I50.9 Heart failure, unspecified; E78.5 Hyperlipidemia, unspecified; F41.9 Anxiety disorder, unspecified; Z79.899 Other long term (current) drug therapy; F17.210 Nicotine dependence, cigarettes, uncomplicated
CPT/HCPCS: 36415; 37227; 76937; 82565; 82947; 84520; 85025; 99152; 99153; C1714; C1725; C1760; C1769; C1876; C1884; C1887; J2250; J3010; Q9967

== ENCOUNTER → 2021-04-05 11:33 | Outpatient (BNVA) | payer MEDICARE, SELFPAY | PROVIDERS: PCP Internal Medicine; Referring Provider Internal Medicine; Visit Provider Surgery | DX: Z12.11 Encounter for screening for malignant neoplasm of colon (principal) | CPT/HCPCS: 99202 ==

== ENCOUNTER → 2021-04-12 12:46 | Outpatient (BNVA) | payer MEDICARE, SELFPAY | PROVIDERS: PCP Internal Medicine; Visit Provider Surgery Vascular Surgery | DX: I73.9 Peripheral vascular disease, unspecified (principal) | CPT/HCPCS: 99212 ==

== ENCOUNTER → 2021-05-07 10:08 | Outpatient (REF) | payer MEDICARE, SELFPAY ==
--- NOTE | 2021-05-07 10:13 | CA_ITS ---
Transthoracic Echocardiogram Patient (Last, First, Middle): Deyanira Vitale, Gender: Male Date of : 1945 Age: 75 Procedure Date: 05/07/2021 Procedure Type: Transthoracic Echocardiogram Location: OP Height: 170.18 cm Weight: 90.72 kg BSA: 2.02 m2 Heart Rate: bpm BP: 132 / 70 mmHg Outdoor Guide: NELLIE Green MD: Emile Bridges MD Backup Administrator: Emile Bridges MD Symptoms: I35.0 - Nonrheumatic aortic (valve) stenosis Study Quality: Fair/Contrast ECG Rhythm: Sinus Conclusions: - 1. Normal LV systolic function with impaired relaxation filling pattern with elevated left ventricular end-diastolic pressure 2. Moderate aortic stenosis 3. Normal RV systolic pressure 4. No pericardial effusion Findings Procedure Information Contrast agent, definity, is being given per protocol without apparent complications. Left Ventricle Normal left ventricular size, thickness, and systolic function. The visually estimated ejection fraction is between 55-60%. Spectral Doppler is indicative of an impaired relaxation filling pattern. Elevated left ventricular end diastolic pressure. E/E prime ratio is between 8 and 15 consistent with indeterminate filling pressures. Right Ventricle Normal right ventricular cavity size and systolic function. Atria The left atrium is likely dilated. There is lipomatous hypertrophy of the interatrial septum. There is no evidence of interatrial shunt. The right atrium is normal in size. Aortic Valve There is moderate calcification of the aortic valve. There is moderate thickening of the aortic valve. There is moderate aortic valve stenosis. The peak aortic gradient is 34 mmHg.The mean gradient is 20 mmHg. There is mild aortic valve regurgitation. Mitral Valve There is mild anterior and posterior mitral leaflet thickening. The posterior mitral leaflet has restricted mobility. There is mild mitral annular calcification. There is trace mitral valve regurgitation. There is no mitral valve stenosis. Pulmonic Valve The pulmonic valve was not well visualized. Tricuspid Valve Likely normal tricuspid valve structure and function. There is trace tricuspid valve regurgitation. The right ventricular systolic pressure is normal. The right ventricular systolic pressure is 26 mmHg. Normal right atrial pressure. There is no evidence of pulmonary hypertension. Great Vessels All visible segments of the aorta are normal in size. The pulmonary artery was not well visualized. Venous The inferior vena cava is normal in size and collapses greater than 50% with inspiration. Pericardium/Pleural There is no evidence of pericardial effusion. Prior Study Comparison Changes noted compared to prior study dated: 07/28/2019. Aortic stenosis is worse Measurements 2D Linear Measurements IVSd: 1.10 0.6-0.9/0.6-1.0 cm LVIDd: 4.26 3.9-5.3/4.2-5.9 cm LVIDd Index: 2.11 2.4-3.2/2.2-3.1 cm/m2 LVIDs: 2.63 2.0-3.6 cm LVPWd: 1.10 0.7-1.1 cm Ao Root: 3.40 2.1-3.5 cm LA Diam: 4.20 2.7-3.8/3.0-4.0 cm LAIDs Index: 2.08 1.5-2.3 cm/m2 LV Mass: 199.97 67-162/88-224 g LV Mass Index: 98.99 43-95/49-115 g/m2 LVOT Diam: 2.20 3.0+(-)1.3 cm 2D Systolic Function EF 4C: 56.50 >55% EF 2C: 52.30 >55% Mitral Valve E'Lateral: 3.81 E'Medial: 4.24 Aortic Valve AoV Pk Everton: 2.92 AoV Mn Everton: 2.14 AoV VTI: 0.71 AoV Pk Grad: 34.00 Aov Mn Grad: 20.00 SCOTT Cont.VTI: 1.13 LVOT LVOT Pk Ever[place]: 0.85 LVOT Mn Ever[place]: 0.61 LVOT VTI: 0.21 LVOT Pk Grad: 3.00 LVOT Mn Grad: 2.00 LVOT Diam: 2.20 LVOT Area: 3.80 Diastolic Function E'Medial: 4.24 E' Laterial: 3.81 Right Ventricle TAPSE (mm): 17.00 TVS' Everton: 9.57 Tricuspid Valve TR Pk Ever[place]: 2.38 TR Pk Grad: 23.00 RA Press: 3.00 RVSP: 26.00 Great Vessels Aorta Ao Root-2D: 3.40 2.0-3.7 cm Ao Asc: 2.90 2.1-3.4 cm Updated in Other Vendor System with Status of Final Emile Bridges MD electronically signed on 05/08/2021 10:58:54 AM with status of Final
== END ==
LOC: HO.CARD 10:08
PROVIDERS: PCP Internal Medicine; Visit Provider Internal Medicine Cardiovascular Disease
DX: I35.0 Nonrheumatic aortic (valve) stenosis (principal)
CPT/HCPCS: 93306; Q9957

== ENCOUNTER 2021-05-11 11:32 | Outpatient (REF) | payer MEDICARE, SELFPAY ==
--- NOTE | ~2021-05-11 | XR_ITS ---
EXAMINATION: XR CHEST CLINICAL INFORMATION: Rule out TB COMPARISON: Previous chest x-ray most recent January 2021 TECHNIQUE: 2 views of the chest were obtained. FINDINGS: The cardiac and mediastinal contours are stable. There are post-CABG changes. The lungs are clear. There is no pleural effusion or pneumothorax. There are degenerative changes of the spine and shoulders. There are median sternotomy wires. XR/XR chest 2V IMPRESSION: No evidence for acute disease in the chest.
[2021-05-11 12:12] LABS: MANUAL DIFF FLAG NO
[2021-05-11 12:18] LABS: Basophils Absolute Auto 0.1 X10*3/uL (0.0-0.2); Basophils Percent Auto 0.8 % (0-2); Eosinophils Absolute Auto 0.5 X10*3/uL (0.0-0.4); Eosinophils Percent Auto 5.8 % (0-4); Hematocrit 38.4 % (42.0-52.0); Hemoglobin 13.1 g/dl (14.0-18.0); Imm Gran Abs Auto 0.03 X10*3/uL (0.00-0.03); Imm Gran Pct Auto 0.3 % (0.0-0.4); Lymphocytes Absolute Auto 2.5 X10*3/uL (1.2-4.9); Lymphocytes Percent Auto 27.3 % (20-40); Mean Corpuscular HGB Conc 34.1 g/dl (31.0-36.0); Mean Corpuscular Hemoglobin 32.1 pg (27.0-33.0); Mean Corpuscular Volume 94.1 fL (80.0-98.0); Mean Platelet Volume 10.4 fL (9.4-12.4); Monocytes Absolute Auto 0.9 X10*3/uL (0.1-1.2); Neutrophils Absolute Auto 5.1 x10*3/uL (2.0-8.3); Neutrophils Percent Auto 55.8 % (45-73); Platelet Count 201 X10*3/uL (160-400); Red Blood Count 4.08 X10*6/uL (4.60-5.80); Red Cell Distribution Width 13.4 % (11.0-16.0); White Blood Count 9.1 X10*3/uL (4.8-10.8)
[2021-05-11 12:50] LABS: Alanine Aminotransferase 20 U/L (0-40); Alkaline Phosphatase 85 U/L (39-117); Anion Gap 11 (12-20); Aspartate Amino Transferase 18 U/L (5-37); Bilirubin Total 0.3 mg/dL (0.0-1.0); Blood Urea Nitrogen 21 mg/dL (9-16); Calcium 9.4 mg/dL (8.4-10.2); Carbon Dioxide 28 mmol/L (22-29); Chloride 108 mmol/L (96-108); Estimated Glomerular Filt Rate 53; Glucose Random 137 mg/dL (60-115); Potassium 4.7 mmol/L (3.3-5.1); Sodium 142 mmol/L (135-145); Total Protein 7.3 g/dL (6.5-8.0)
== END 2021-05-11 11:33 | disposition home or self-care (01) ==
LOC: HO.XRAY 11:32
PROVIDERS: PCP Internal Medicine; Visit Provider Physician Assistant
DX: L40.0 Psoriasis vulgaris (principal)
CPT/HCPCS: 36415; 71046; 80053; 85025

== ENCOUNTER 2021-05-22 12:31 | Emergency (ER) | payer MEDICARE, SELFPAY ==
--- NOTE | ~2021-05-22 | XR_ITS ---
EXAMINATION: XR WRIST, RIGHT CLINICAL INFORMATION: Fall COMPARISON: None TECHNIQUE: PA, lateral, and oblique views of the right wrist. FINDINGS: There is a comminuted fracture of the right distal radius. There is a transverse fracture with slight impaction. There is a vertical component appears to extend intra-articular with the radiocarpal joint. There is a small dorsally displaced fracture fragment seen on the lateral view. No other fracture is seen. There is arthritis at the first [facility] joint. There is soft tissue arterial calcification. XR/XR wrist RT 2V IMPRESSION: Comminuted intra-articular minimally displaced fracture of the right distal radius.
[2021-05-22 12:38] VITALS: BP 146/54; PULSE 76; RESP 18; TEMP 36.3; O2SAT 100; BMI 31.3
[2021-05-22 14:25] VITALS: BP 160/69; PULSE 68; RESP 18; TEMP 36.4; O2SAT 99
[2021-05-22] MEDS: Acetaminophen 325 MG TABLET 975 MG PO (14:53)
--- NOTE | 2021-05-22 14:57 | ED_ITS ---
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 He reports he did not hit his head or lose consciousness and he does not have any neck pain or injury. He reports that there was no prolonged downtime there was no symptoms prior to the fall. He denies any other symptoms related to this. He denies any other injuries. MD complaint: fall Onset (ago): day(s) (3) Fall from: standing Fall witnessed: no Place fall occurred: street Loss of consciousness: none Prolonged down time: no Symptoms prior to fall: none Context: tripped/slipped Location of injury - extremities: right: forearm (wrist) Severity: severe Severity scale (1-10): >10 Quality: throbbing Associated symptoms (after fall): denies Related Data Home Medications Medication Instructions Recorded Confirmed atorvastatin 80 mg tablet 80 mg PO DAILY 01/07/20 04/05/21 latanoprost 0.005 % eye drops 1 drp OPHTHALMIC (EYE) BEDTIME 07/12/20 04/05/21 adalimumab 40 mg/0.8 mL mg SUBCUT Q2W 12/08/20 04/05/21 subcutaneous pen kit 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 meter (OneTouch #1 ea 03/06/21 04/05/21 Verio Reflect Meter) Previous Rx's Medication Instructions Recorded 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 meter (FreeStyle #1 ea 02/29/20 Thornwood Lite) lancets 28 gauge #300 ea 07/12/20 pen needle, diabetic 32 gauge x #400 ea 07/12/20 (BD Martina 2nd Gen Pen Needle) FreeStyle Lite Strips (blood sugar #300 ea NS 08/01/20 diagnostic) insulin degludec 100 unit/mL (3 26 unit (0.26 mL) SUBCUT DAILY 90 08/01/20 mL) subcutaneous pen Days #30 ml gabapentin 300 mg capsule 300 mg PO BEDTIME #90 cap 08/22/20 tramadol 50 mg tablet 50 mg PO Q8H PRN #5 tab 09/25/20 aspirin 81 mg tablet,delayed 81 mg PO DAILY #90 tab 11/16/20 release losartan 25 mg tablet 25 mg PO DAILY 90 Days #90 tab 11/17/20 metoprolol succinate 25 mg 25 mg PO DAILY #90 tab 11/17/20 tablet,extended release 24 hr insulin lispro 100 unit/mL 5 - 7 unit (0.05 - 0.07 mL) SUBCUT 01/22/21 subcutaneous pen (Humalog KwikPen TID 90 Days #15 ml (U-100) Insulin) acetaminophen 500 mg tablet 500 mg PO Q6H PRN #20 tab 01/30/21 (Tylenol Extra Strength) benzonatate 200 mg capsule 200 mg PO TID PRN #20 cap 01/30/21 fluticasone propionate 50 2 spray INTRANASAL DAILY #16 g 01/30/21 mcg/actuation nasal spray,suspension (Flonase Allergy Relief) albuterol sulfate 90 mcg/actuation 2 puff INHALATION Q4-6H PRN #8.5 g 01/31/21 aerosol inhaler (ProAir HFA) codeine 10 mg-guaifenesin 100 mg/5 10 ml PO Q6H PRN #237 ml 01/31/21 mL oral liquid blood sugar diagnostic (FreeStyle #150 ea 02/23/21 Lite Strips) blood sugar diagnostic (OneTouch #100 ea 02/23/21 Verio test strips) 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 meter (TimeCastTouch #1 ea 02/23/21 Verio IQ Meter) dulaglutide 3 mg/0.5 mL 3 mg (0.5 mL) SUBCUT QWEEK 90 Days 02/23/21 subcutaneous pen injector #6.5 ml (Trulicity) lancets 33 gauge (TimeCastTouch Lex #100 ea 02/23/21 Plus Lancet) clopidogrel 75 mg tablet (Plavix) 75 mg PO DAILY #90 tab 03/28/21 amlodipine 10 mg tablet 10 mg PO DAILY #90 tab 04/10/21 acetaminophen 500 mg tablet 1,000 mg PO QID PRN #14 tab 05/22/21 (Tylenol Extra Strength) hydrocortisone 2.5 % topical 1 appl TOPICAL QD-TID PRN #454 g 05/22/21 ointment oxycodone 5 mg tablet 5 mg PO Q6H PRN #14 tab 05/22/21 prednisone 20 mg tablet 20 mg PO DAILY 5 Days #5 tab 05/22/21 Allergies Allergy/AdvReac Type Severity Reaction Status Date / Time No Known Allergies Allergy Mild NONE Verified 04/12/21 13:06 Review of Systems Review of Systems: Constitutional : No changes in activity, No lethargy, No recent prior head injury, No agitation, No increased fussiness ENT/Mouth : No Ear Pain, No Nasal discharge/drainage Eyes: No Eye Pain, No Swelling, No Redness, No Foreign Body, No Vision Changes Cardiovascular : No Chest Pain, No SOB Respiratory : No Cough Gastrointestinal : No Nausea, No Vomiting, No abdominal Pain Genitourinary : No Dysuria, No Urinary Frequency, No Urinary Incontinence, No Urgency, No Flank Pain Musculoskeletal : + joint pain/swelling, No neck stiffness, No back pain/injury, no neck pain/injury Skin : No lacerations Neuro : No unsteady gait, No Paresthesias, No Loss of Consciousness, No altered mental status, No Headache Yes all other systems are reviewed and are negative [facility] Past Medical History Attestation statement: The following information was validated with the patient. Medical History Anxiety Aortic stenosis CAD (coronary artery disease) Cardiomyopathy Carotid artery stenosis CKD stage 3 due to type 2 diabetes mellitus Colon cancer screening Compression fracture of L1 lumbar vertebra Congestive heart failure Diabetes type 2, controlled Diabetic 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 diabetes mellitus Diabetic polyneuropathy associated with type 2 diabetes mellitus Diabetic retinopathy associated with type 2 diabetes mellitus DM2 (diabetes mellitus, type 2) Dyslipidemia GERD (gastroesophageal reflux disease) Glaucoma History of renal calculi Hypertension Iliac artery stenosis, bilateral Infective endocarditis Left carotid stenosis retirement (current) use of insulin Overweight (BMI 25.0-29.9) Positive TB test Pulmonary nodule PVD (peripheral vascular disease) Tobacco abuse Surgical History Hx of appendectomy Hx of arthroscopy of right knee Hx of cataract removal with insertion of prosthetic lens Hx of coronary artery bypass graft Hx of shoulder surgery Hx of tonsillectomy Family History Family History Father Stomach cancer Mother Diabetes Social History Social History Housing: Apartment Alcohol intake: never Patient Tobacco Use Status: Current everyday Tobacco user Tobacco use type: Cigarette Cigarette Packs Per Day: 0.25 Cigarettes Per Day: 5 e-Cigarette/Vaping Use: Never Used Second Hand Smoke Exposure: Yes Advance Directives: No Advance Directives Information Provided: No Current occupational status: 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 Blood pressure 146/54. Heart rate normal. Respiration rate normal. Temperature normal. Oxygen saturation normal. Appearance: Alert. Oriented X3. No acute distress. Head: Normal external exam. Normocephalic. Atraumatic. No Leggett signs noted. No raccoon eyes noted Eyes: PERRLA. EOMI. Conjunctiva and sclera normal. Eyelids normal. ENT: EAC normal. TM's Normal. No septal hematoma noted. No hemotympanum noted. Pharynx normal. Uvula midline. Moist mucous membranes. No lesions/ulcerations or masses noted on the tongue. Normal voice. No trismus noted. No drooling noted. No muffled voice noted. Neck: Normal inspection. Neck supple. FROM. No adenopathy. Thyroid Normal. No tracheal deviation noted. No crepitus is noted. No meningeal signs. No neck mass noted. No signs of trauma noted. CVS: Normal heart rate and rhythm. Heart sound normal. Pulses normal throughout. No murmurs/rales/gallops. Respiratory: No respiratory distress. Painless inspiration. Breath sounds normal. No wheezes/rales/rhonchi noted. Chest nontender. No crepitus is noted. No signs of trauma noted. No accessory muscle usage noted or decreased air movement noted. No signs of trauma. Abdomen: Soft and nontender. Bowel sounds normal in all 4 quadrants. No distention noted. No organomegaly noted. No visible injury noted. Back: No CVA tenderness. Full range of motion noted. Nontender. No signs of trauma. Patient neuro intact bilaterally and distally on all 4 extremities. Patient's reflexes intact bilaterally and distally on all 4 extremities. No rashes/lesion/induration/fluctuance or signs of infection noted. Skin: Skin warm and dry. Normal skin color. Normal skin turgor. Patient noted to have scattered psoriasis rash on his head/face/arms/legs all over his body. No signs of infection. No drainage noted. No lesions/lacerations noted. Extremities: Right wrist at the radial and ulnar aspect patient has moderate soft tissue swelling and ecchymosis an obvious deformity consistent with possible radius or ulna fracture. No obvious ligamentous or tendon injury. No abrasions/lacerations noted. The patient's fingers are nontender and no signs of trauma and no obvious laxity noted. Right elbow no signs of trauma no obvious ligamentous or tendon injury or tenderness noted. Otherwise all other Extremities exhibit normal range of motion and nontender. Neuro: Oriented X 3. No motor deficit. No sensory deficit. Reflexes normal. Normal steady gait. No focal neuro deficits noted. CN's II-XII intact bilaterally? Vascular: + radial pulses/+ 2 distal pedal pulses/+2 dorsalis pedis b/l. Normal cap refill. No cyanosis noted to upper extremity nails and lower extremity toes nails. 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 He reports he did not hit his head or lose consciousness and he does not have any neck pain or injury. He reports that there was no prolonged downtime there was no symptoms prior to the fall. He denies any other symptoms related to this. He denies any other injuries. Patient is alert and oriented x3. No signs of trauma to his head or his neck. He has full range of motion. No septal hematoma or hemotympanum noted. Chest is nontender. Abdomen is soft nontender no signs of trauma. Back cervical/thoracic and lumbar no signs of trauma with full range of motion nontender. He has full range of motion of all other extremities other than his right wrist. I explained to the patient due to him being on Plavix and the mechanism of injury that we should do a CT scan of his head and neck to rule out any internal bleeding due to he is on Plavix although patient is refusing he reports he fell in a sitting position and he landed on his right wrist and he does not have any pain he has not had any headaches and he feels normal and he does not want a CT scan at this time. Therefore I explained to him that we will place him in a splint due to he has a radius fracture. I consulted Orthopedics the orthopedic PA Ria she recommended a sugar-tong with follow-up therefore will DC home with that. Also patient was noted to have psoriasis therefore will send with a short course of steroids I explained to him that he will need to adjust his insulin for his glucose level and he should follow-up with his PCP and Orthopedics and to return if any new or worsening symptoms. Patient understands agrees with this plan. Procedures Orthopedic Splinting/Casting Injury #1: Side: right Upper Extremity Injury Location: wrist Upper Extremity Immobilizer: sling/shoulder immobilizer and sugar tong splint MDM - Fall Medical Records Attestation: I reviewed the patient's medical records. Imaging Data Right wrist x-ray: Attestation: I personally reviewed and interpreted this imaging study as follows: Radiologist's impression: FINDINGS: There is a comminuted fracture of the right distal radius. There is a transverse fracture with slight impaction. There is a vertical component appears to extend intra-articular with the radiocarpal joint. There is a small dorsally displaced fracture fragment seen on the lateral view. No other fracture is seen. There is arthritis at the first [facility] joint. There is soft tissue arterial calcification. XR/XR wrist RT 2V IMPRESSION: Comminuted intra-articular minimally displaced fracture of the right distal radius. Discharge Plan Discharge Clinical Impression: Distal radius fracture, right, Psoriasis, Fall Patient Disposition: Home, Self-Care Instructions: Wrist Fracture in Adults (ED), Psoriasis (ED), Fall Prevention for Older Adults (ED) Additional Instructions: I started you on a course of steroids this may elevate your blood glucose levels therefore you need to check your sugar more often and adjust her insulin for your blood sugars. Return if any new or worsening symptoms. Prescriptions: New oxycodone 5 mg tablet 5 mg PO Q6H PRN (Reason: pain) Qty: 14 0RF acetaminophen [Tylenol Extra Strength] 500 mg tablet 1,000 mg PO QID PRN (Reason: fever or pain) Qty: 14 0RF hydrocortisone 2.5 % ointment 1 appl topical QD-TID PRN (Reason: skin irritation) Qty: 454 2RF prednisone 20 mg tablet 20 mg PO DAILY 5 Days Qty: 5 0RF No Action (DME) 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 meter [FreeStyle [place] Lite] Kit See Rx Instructions .ROUTE .MEDSUPPLY Qty: 1 0RF Rx Instructions: As directed gabapentin 300 mg capsule 300 mg PO BEDTIME Qty: 90 2RF aspirin 81 mg tablet,delayed release (DR/EC) 81 mg PO DAILY Qty: 90 3RF insulin lispro [Humalog KwikPen Insulin] 100 unit/mL insulin pen 5 - 7 unit subcut TID 90 Days Qty: 15 1RF Rx Instructions: before meals as directed (DME) 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 meter [OneTouch Verio IQ Meter] Kit See Rx Instructions .Route Qty: 1 0RF Rx Instructions: As directed 3x/day (DME) OneTouch Verio test strips Strip See Rx Instructions .ROUTE .MEDSUPPLY Qty: 100 11RF Rx Instructions: Three times a day (DME) lancets [OneTouch Delica Plus Lancet] 33 gauge misc See Rx Instructions .Route Qty: 100 11RF Rx Instructions: As directed 3x/day amlodipine 10 mg tablet 10 mg PO DAILY Qty: 90 1RF tramadol 50 mg tablet 50 mg PO Q8H PRN (Reason: pain) Qty: 5 0RF codeine-guaifenesin 10-100 mg/5 mL liquid 10 ml PO Q6H PRN (Reason: cough) Qty: 237 0RF albuterol sulfate [ProAir HFA] 90 mcg/actuation HFA aerosol inhaler 2 puff inhalation Q4-6H PRN (Reason: Wheezing) Qty: 8.5 0RF acetaminophen [Tylenol Extra Strength] 500 mg tablet 500 mg PO Q6H PRN (Reason: pain or fever) Qty: 20 0RF fluticasone propionate [Flonase Allergy Relief] 50 mcg/actuation spray,suspens ion 2 spray intranasal DAILY Qty: 16 0RF Rx Instructions: administer into each nostril benzonatate 200 mg capsule 200 mg PO TID PRN (Reason: cough) Qty: 20 0RF clopidogrel [Plavix] 75 mg tablet 75 mg PO DAILY Qty: 90 1RF losartan 25 mg tablet 25 mg PO DAILY 90 Days Qty: 90 1RF metoprolol succinate 25 mg tablet extended release 24 hr 25 mg PO DAILY Qty: 90 1RF atorvastatin 80 mg tablet 80 mg PO DAILY 0RF adalimumab 40 mg/0.8 mL pen injector kit subcut Q2W 0RF (DME) FreeStyle Lite Strips Strip See Rx Instructions ea Not Applicable BID Qty: 300 3RF Rx Instructions: 3 times a day insulin degludec 100 unit/mL (3 mL) insulin pen 26 unit subcut DAILY 90 Days Qty: 30 2RF latanoprost 0.005 % drops 1 drp ophthalmic (eye) BEDTIME 0RF (DME) pen needle, diabetic [BD Martina 2nd Gen Pen Needle] 32 gauge x 5/32 needle See Rx Instructions .MEDSUPPLY Qty: 400 4RF Rx Instructions: 5 times a day (DME) lancets 28 gauge misc See Rx Instructions ea Not Applicable BID Qty: 300 3RF Rx Instructions: 3 times a day (DME) FreeStyle Lite Strips Strip See Rx Instructions .ROUTE .MEDSUPPLY Qty: 150 11RF Rx Instructions: As directed four times a day Trulicity 3 mg/0.5 mL pen injector 3 mg subcut QWEEK 90 Days Qty: 6.5 1RF (DME) 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 meter [OneTouch Verio Reflect Meter] Misc See Rx Instructions kit .ROUTE .MEDSUPPLY Qty: 1 0RF Rx Instructions: As directed Referrals: Randy Melton MD [Physician] - 2 days Po,Marcia Overton MD [Primary Care Provider] - 2 days Print Language: Citizen Of [place]
[2021-05-22 15:44] VITALS: RESP 18
== END 2021-05-22 15:45 | disposition home or self-care (01) ==
PROVIDERS: Emergency Provider Emergency Medicine; PCP Internal Medicine
DX: S52.501A Unspecified fracture of the lower end of right radius, initial encounter for closed fracture (principal); M25.531 Pain in right wrist; W00.0XXA Fall on same level due to ice and snow, initial encounter; Y93.9 Activity, unspecified; Y92.9 Unspecified place or not applicable; Y99.9 Unspecified external cause status; Z79.899 Other long term (current) drug therapy; F17.210 Nicotine dependence, cigarettes, uncomplicated; Z71.6 Tobacco abuse counseling
CPT/HCPCS: 29125; 73100; 99284

== ENCOUNTER 2021-05-24 10:53 | Outpatient (REF) | payer MEDICARE, SELFPAY ==
--- NOTE | ~2021-05-24 | XR_ITS ---
EXAMINATION: XR WRIST, RIGHT CLINICAL INFORMATION: Fracture follow-up COMPARISON: 05/22/2021 TECHNIQUE: PA, lateral, and oblique views of the right wrist. FINDINGS: Again seen is a comminuted distal radial metaphyseal fracture with intraarticular extension, mild dorsal cortical impaction resulting in mild dorsal angulation of the distal radial articular surface. No additional fractures. No dislocation. Small marginal osteophytes of the first CMC and first metacarpophalangeal joints. No erosive changes. Monckeberg arterial sclerosis. Soft tissues unremarkable. XR/XR wrist RT min 3V IMPRESSION: Stable alignment of the comminuted distal radial metaphyseal fracture with mild dorsal cortical impaction.
== END 2021-05-24 10:54 | disposition home or self-care (01) ==
LOC: HO.HOSX 10:53
PROVIDERS: Visit Provider Physician Assistant
DX: S52.501A Unspecified fracture of the lower end of right radius, initial encounter for closed fracture (principal); E11.9 Type 2 diabetes mellitus without complications; Z79.4 Long term (current) use of insulin
CPT/HCPCS: 29085; 73110; 95250; 99202

== ENCOUNTER 2021-05-31 08:33 | Outpatient (REF) | payer MEDICARE, SELFPAY ==
--- NOTE | ~2021-05-31 | XR_ITS ---
EXAMINATION: XR WRIST, RIGHT CLINICAL INFORMATION: Right wrist pain COMPARISON: 05/24/2021 TECHNIQUE: PA, lateral, and oblique views of the right wrist. FINDINGS: Intra-articular distal radial fracture is again noted with unchanged alignment from prior. Nondisplaced ulnar styloid fracture. The carpal rows are well aligned. Diffuse vascular calcifications. XR/XR wrist RT min 3V IMPRESSION: Unchanged appearance of the intra-articular distal radial fracture and ulnar styloid fracture.
== END 2021-05-31 08:34 | disposition home or self-care (01) ==
LOC: HO.HOSX 08:33
PROVIDERS: Visit Provider Physician Assistant
DX: S52.501D Unspecified fracture of the lower end of right radius, subsequent encounter for closed fracture with routine healing (principal); F17.210 Nicotine dependence, cigarettes, uncomplicated; X58.XXXD Exposure to other specified factors, subsequent encounter
CPT/HCPCS: 29085; 73110; 99212

== ENCOUNTER 2021-06-06 08:17 | Outpatient (REF) | payer MEDICARE, SELFPAY ==
[2021-06-06 09:42] LABS: Anion Gap 14 (12-20); Blood Urea Nitrogen 19 mg/dL (9-16); Calcium 8.7 mg/dL (8.4-10.2); Carbon Dioxide 24 mmol/L (22-29); Chloride 108 mmol/L (96-108); Estimated Glomerular Filt Rate > 60; Glucose Random 86 mg/dL (60-115); Potassium 4.2 mmol/L (3.3-5.1); Sodium 142 mmol/L (135-145)
[2021-06-06 10:59] LABS: Creatinine Urine 231.93 mg/dL
== END 2021-06-06 08:18 | disposition home or self-care (01) ==
LOC: HO.LAB 08:17
PROVIDERS: Nurse Practitioner Gerontology; PCP Internal Medicine; Visit Provider Internal Medicine
DX: N28.9 Disorder of kidney and ureter, unspecified (principal); E11.65 Type 2 diabetes mellitus with hyperglycemia; Z79.4 Long term (current) use of insulin
CPT/HCPCS: 36415; 80048; 82043

== ENCOUNTER 2021-06-07 05:21 | Observation (INO) | payer MEDICARE, SELFPAY ==
[2021-06-07] VITALS (10 sets, daily range): BP systolic 118–148; BP diastolic 50–76; PULSE 60–92; RESP 12–21; TEMP 36.6–37.4; O2SAT 88–100; BMI 31.3
--- NOTE | ~2021-06-07 | XR_ITS ---
EXAMINATION: XR CHEST CLINICAL INFORMATION: Cough and fever COMPARISON: 05/11/2021 TECHNIQUE: Frontal view of the chest was obtained. FINDINGS: Median sternotomy wires appear intact. The lungs are well expanded. There is no focal consolidation, edema, or effusion. No pneumothorax. The cardiomediastinal silhouette is within normal limits. No acute osseous abnormality. Degenerative changes of both shoulders. XR/XR chest 1V IMPRESSION: No acute pulmonary finding.
--- NOTE | ~2021-06-07 | CT_ITS ---
EXAMINATION: CT ANGIOGRAM OF THE CHEST WITH AND WITHOUT CONTRAST (CT PULMONARY ANGIOGRAM FOR PE) CLINICAL INFORMATION: Reason for Exam: Hypoxia with COVID positive COMPARISON: Selected portions of a previous study 07/14/18 TECHNIQUE: Prior to contrast administration, noncontrast localization images were obtained. Subsequently, multidetector volumetric imaging was performed from the thoracic inlet to below the diaphragms following the administration of 65 mL Omnipaque 350 intravenous contrast. No contrast reaction reported Sagittal, coronal, and MIP oblique sagittal reformatted images were obtained on the CT workstation, uploaded to PACS, and reviewed. This CT examination was performed using dose optimization techniques as appropriate, variously including the following: *Automated exposure control *Adjustment of mA and/or kV according to patient size (this includes techniques or standardized protocols for targeted exams where dose is matched to indication/reason for exam; i.e. extremities or head) *Use of iterative reconstruction technique Total exam dose-length product 405 mGy-cm FINDINGS: QUALITY OF STUDY/CONTRAST BOLUS: Satisfactory. PULMONARY ARTERIES: No pulmonary embolus demonstrated. The main pulmonary artery is at least top normal in caliber. This is unchanged. THORACIC AORTA: There is calcification at the level of the aortic valve. There is no thoracic aortic aneurysm. There is extensive atherosclerotic calcification. I suspect a common origin of the left common carotid artery and innominate artery. There has been previous coronary artery bypass grafting. LUNG: No abnormality of the trachea or mainstem bronchi. There is no large area of consolidation. No alveolar edema. There are scattered nonspecific reticular and airspace opacities greatest in the lower lung zones. Some of this is due to atelectasis. PLEURA: No pleural effusion or pneumothorax. MEDIASTINUM: There is a significant amount of fat within the mediastinum. There are a few nonspecific mediastinal and hilar lymph nodes. There is no suspicious abnormality of the esophagus. No pericardial fluid or thickening. No evidence of septal bowing or right heart strain. CHEST WALL/AXILLA: No axillary or internal mammary lymphadenopathy. OSSEOUS STRUCTURES: Previous sternotomy. Healed lateral right rib fracture. The lowest images demonstrate marked volume loss in what is likely L1. This appears to have been present on lateral chest x-ray 05/11/21 UPPER ABDOMEN: No suspicious abnormality on limited assessment of the upper abdomen. No reflux of contrast into the hepatic veins to suggest elevated right heart pressures. CT/CT angio chest PE protocol IMPRESSION: No pulmonary embolus demonstrated. Previous cardiac surgery. Mild nonspecific lung opacities. Marked volume loss in the region of L1 which was present at the time of MRI 04/11/20 VTE: negative
--- NOTE | 2021-06-07 05:41 | ED.GENADULT ---
HPI - General Adult General Chief complaint: Fever Stated complaint: WEAKNESS,COUGH Time Seen by Provider: 06/07/21 05:32 Source: patient Mode of arrival: ambulatory Limitations: no limitations History of Present Illness HPI narrative: Patient diabetic already been vaccinated against COVID including a booster dose last year whole family sick for last 10 days but been tested negative for COVID, comes here for 2 days of cough weakness body aches nausea vomiting poor appetite. Low-grade fever no chills no urinary complaints no significant abdominal pain Related Data Home Medications Medication Instructions Recorded Confirmed atorvastatin 80 mg tablet 80 mg PO DAILY 01/07/20 04/05/21 latanoprost 0.005 % eye drops 1 drp OPHTHALMIC (EYE) BEDTIME 07/12/20 04/05/21 adalimumab 40 mg/0.8 mL mg SUBCUT Q2W 12/08/20 04/05/21 subcutaneous pen kit 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 meter (OneTouch #1 ea 03/06/21 04/05/21 Verio Reflect Meter) Previous Rx's Medication Instructions Recorded 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 meter (FreeStyle #1 ea 02/29/20 Bonaparte Lite) lancets 28 gauge #300 ea 07/12/20 pen needle, diabetic 32 gauge x #400 ea 07/12/2032 (BD Martina 2nd Gen Pen Needle) FreeStyle Lite Strips (blood sugar #300 ea NS 08/01/20 diagnostic) insulin degludec 100 unit/mL (3 26 unit (0.26 mL) SUBCUT DAILY 90 08/01/20 mL) subcutaneous pen Days #30 ml gabapentin 300 mg capsule 300 mg PO BEDTIME #90 cap 08/22/20 tramadol 50 mg tablet 50 mg PO Q8H PRN #5 tab 09/25/20 aspirin 81 mg tablet,delayed 81 mg PO DAILY #90 tab 11/16/20 release losartan 25 mg tablet 25 mg PO DAILY 90 Days #90 tab 11/17/20 metoprolol succinate 25 mg 25 mg PO DAILY #90 tab 11/17/20 tablet,extended release 24 hr insulin lispro 100 unit/mL 5 - 7 unit (0.05 - 0.07 mL) SUBCUT 01/22/21 subcutaneous pen (Humalog KwikPen TID 90 Days #15 ml (U-100) Insulin) acetaminophen 500 mg tablet 500 mg PO Q6H PRN #20 tab 01/30/21 (Tylenol Extra Strength) benzonatate 200 mg capsule 200 mg PO TID PRN #20 cap 01/30/21 fluticasone propionate 50 2 spray INTRANASAL DAILY #16 g 01/30/21 mcg/actuation nasal spray,suspension (Flonase Allergy Relief) albuterol sulfate 90 mcg/actuation 2 puff INHALATION Q4-6H PRN #8.5 g 01/31/21 aerosol inhaler (ProAir HFA) codeine 10 mg-guaifenesin 100 mg/5 10 ml PO Q6H PRN #237 ml 01/31/21 mL oral liquid blood sugar diagnostic (FreeStyle #150 ea 02/23/21 Lite Strips) blood sugar diagnostic (OneTouch #100 ea 02/23/21 Verio test strips) 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 meter (FiscalNoteTouch #1 ea 02/23/21 Verio IQ Meter) dulaglutide 3 mg/0.5 mL 3 mg (0.5 mL) SUBCUT QWEEK 90 Days 02/23/21 subcutaneous pen injector #6.5 ml ([employer]) lancets 33 gauge (FiscalNoteTouch Delica #100 ea 02/23/21 Plus Lancet) clopidogrel 75 mg tablet (Plavix) 75 mg PO DAILY #90 tab 03/28/21 amlodipine 10 mg tablet 10 mg PO DAILY #90 tab 04/10/21 acetaminophen 500 mg tablet 1,000 mg PO QID PRN #14 tab 05/22/21 (Tylenol Extra Strength) hydrocortisone 2.5 % topical 1 appl TOPICAL QD-TID PRN #454 g 05/22/21 ointment oxycodone 5 mg tablet 5 mg PO Q6H PRN #14 tab 05/22/21 prednisone 20 mg tablet 20 mg PO DAILY 5 Days #5 tab 05/22/21 Allergies Allergy/AdvReac Type Severity Reaction Status Date / Time No Known Allergies Allergy Mild NONE Verified 05/24/21 15:05 Review of Systems Review of Systems: Yes all other systems are reviewed and are negative [facility] Past Medical History Medical History Anxiety Aortic stenosis CAD (coronary artery disease) Cardiomyopathy Carotid artery stenosis CKD stage 3 due to type 2 diabetes mellitus Colon cancer screening Compression fracture of L1 lumbar vertebra Congestive heart failure Diabetes type 2, controlled Diabetic 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 diabetes mellitus Diabetic polyneuropathy associated with type 2 diabetes mellitus Diabetic retinopathy associated with type 2 diabetes mellitus DM2 (diabetes mellitus, type 2) Dyslipidemia GERD (gastroesophageal reflux disease) Glaucoma History of renal calculi Hypertension Iliac artery stenosis, bilateral Infective endocarditis Left carotid stenosis custodial (current) use of insulin Overweight (BMI 25.0-29.9) Positive TB test Pulmonary nodule PVD (peripheral vascular disease) Tobacco abuse Surgical History Hx of appendectomy Hx of arthroscopy of right knee Hx of cataract removal with insertion of prosthetic lens Hx of coronary artery bypass graft Hx of shoulder surgery Hx of tonsillectomy Family History Family History Father Stomach cancer Mother Diabetes Social History Social History Housing: Apartment Alcohol intake: never Patient Tobacco Use Status: Current everyday Tobacco user Tobacco use type: Cigarette Cigarette Packs Per Day: 0.25 Cigarettes Per Day: 5 e-Cigarette/Vaping Use: Never Used Second Hand Smoke Exposure: Yes Advance Directives: No Advance Directives Information Provided: Yes Current occupational status: 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 Oriented X3. No acute distress. Eyes: No pallor or icterus ENT: Pharynx normal. Oral Mucosa moist Neck: Normal inspection. Neck supple. CVS: Normal heart rate and rhythm. Pulses normal. Respiratory: No respiratory distress. Equal air entry bilateral, occasional rales at bases Abdomen: Soft and nontender. Bowel sounds are present, no mass palpable, no CVA tenderness Skin: Skin warm and dry. Normal skin color. Normal skin turgor. Extremities: No lower extremity edema. No calf tenderness Neuro: Oriented X 3. No motor deficit. Medical Decision Making MDM Narrative Medical decision making narrative: Patient with COVID-19 positive chest x-ray negative for infiltrate noticed to be desaturating to 88% at room air will do CTA chest to rule out PE will admit for observation for COVID-19 hypoxia Lab Data Lab results reviewed: Yes I reviewed the patient's lab results. Result diagrams: 06/07/21 06:02 06/07/21 06:02 Labs: Lab Results 06/07/21 06/07/21 06/07/21 Range/Units 05:39 06:02 06:02 WBC 7.2 (4.8-10.8) X10*3/uL RBC 3.58 L (4.60-5.80) X10*6/uL Hgb 11.4 L (14.0-18.0) g/dl Hct 34.0 L (42.0-52.0) % MCV 95.0 (80.0-98.0) fL MCH 31.8 (27.0-33.0) pg MCHC 33.5 (31.0-36.0) g/dl RDW 13.1 (11.0-16.0) % Plt Count 169 (160-400) X10*3/uL MPV 10.4 (9.4-12.4) fL Immature Gran % (Auto) 0.3 (0.0-0.4) % Neut % (Auto) 77.1 H (45-73) % Lymph % (Auto) 13.1 L (20-40) % [place] % (Auto) 6.8 (2-11) % Eos % (Auto) 2.4 (0-4) % Baso % (Auto) 0.3 (0-2) % Lymph # (Auto) 0.9 L (1.2-4.9) X10*3/uL [place] # (Auto) 0.5 (0.1-1.2) X10*3/uL Eos # (Auto) 0.2 (0.0-0.4) X10*3/uL Baso # (Auto) 0.0 (0.0-0.2) X10*3/uL Abs Immat Gran (auto) 0.02 (0.00-0.03) X10*3/uL Absolute Neuts (auto) 5.5 (2.0-8.3) x10*3/uL Absolute Nucleated RBC 0.000 (0.0-0.012) X10*3/uL Nucleated RBC % (auto) 0.0 (0.0-0.2) /100WBC Sodium 138 (135-145) mmol/L Potassium 4.8 (3.3-5.1) mmol/L Chloride 108 (96-108) mmol/L Carbon Dioxide 20 L (22-29) mmol/L Anion Gap 15 (12-20) BUN 25 H (9-16) mg/dL Creatinine 1.18 (0.5-1.4) mg/dL Estim Creat Clear Calc 57.2 Estimated GFR > 60 Random Glucose 163 H D (60-115) mg/dL Calcium 8.5 (8.4-10.2) mg/dL Total Bilirubin 0.7 (0.0-1.0) mg/dL AST 19 (5-37) U/L ALT 25 (0-40) U/L Alkaline Phosphatase 107 D (39-117) U/L Total Protein 6.8 (6.5-8.0) g/dL Albumin 3.5 (3.5-5.0) g/dL Lipase 29 (8-78) U/L COVID-19 (RAVEN) Positive A (Negative) COVID-19 Clin Com See Note Discharge Plan Discharge Clinical Impression: Acute hypoxemic respiratory failure due to COVID-19 Patient Disposition: Admitted As Inpatient
[2021-06-07 05:54] LABS: COVID-19 Test Positive (Negative)
[2021-06-07] MEDS: Albuterol Sulfate 90 MCG 8 GM INHALER 4 PUFF INHALE (06:04)
[2021-06-07 06:07] LABS: MANUAL DIFF FLAG NO
[2021-06-07 06:08] LABS: Basophils Percent Auto 0.3 % (0-2); Eosinophils Absolute Auto 0.2 X10*3/uL (0.0-0.4); Eosinophils Percent Auto 2.4 % (0-4); Hemoglobin 11.4 g/dl (14.0-18.0); Imm Gran Abs Auto 0.02 X10*3/uL (0.00-0.03); Imm Gran Pct Auto 0.3 % (0.0-0.4); Lymphocytes Absolute Auto 0.9 X10*3/uL (1.2-4.9); Lymphocytes Percent Auto 13.1 % (20-40); Mean Corpuscular HGB Conc 33.5 g/dl (31.0-36.0); Mean Corpuscular Hemoglobin 31.8 pg (27.0-33.0); Mean Platelet Volume 10.4 fL (9.4-12.4); Monocytes Absolute Auto 0.5 X10*3/uL (0.1-1.2); Monocytes Percent Auto 6.8 % (2-11); Neutrophils Absolute Auto 5.5 x10*3/uL (2.0-8.3); Neutrophils Percent Auto 77.1 % (45-73); Platelet Count 169 X10*3/uL (160-400); Red Blood Count 3.58 X10*6/uL (4.60-5.80); Red Cell Distribution Width 13.1 % (11.0-16.0); White Blood Count 7.2 X10*3/uL (4.8-10.8)
[2021-06-07] MEDS: ondansetron HCL 4 MG/2 ML VIAL IVPUSH (06:08)
[2021-06-07] MEDS: 0.9 % Sodium Chloride 1,000 ML 999 ML IV (06:09)
[2021-06-07 06:30] LABS: Alanine Aminotransferase 25 U/L (0-40); Albumin Level 3.5 g/dL (3.5-5.0); Alkaline Phosphatase 107 U/L (39-117); Anion Gap 15 (12-20); Aspartate Amino Transferase 19 U/L (5-37); Bilirubin Total 0.7 mg/dL (0.0-1.0); Blood Urea Nitrogen 25 mg/dL (9-16); Calcium 8.5 mg/dL (8.4-10.2); Carbon Dioxide 20 mmol/L (22-29); Chloride 108 mmol/L (96-108); Creatinine Clr Calc Pharmacy 57.2; Estimated Glomerular Filt Rate > 60; Glucose Random 163 mg/dL (60-115); Lipase 29 U/L (8-78); Potassium 4.8 mmol/L (3.3-5.1); Sodium 138 mmol/L (135-145); Total Protein 6.8 g/dL (6.5-8.0)
[2021-06-07] MEDS: iohexoL 350 MG/ML 100 ML INFUS..BTL 65 ML IV (07:28)
[2021-06-07] MEDS: dexAMETHasone sod phosphate 4 MG/ML VIAL 6 MG IVPUSH (07:50)
--- NOTE | 2021-06-07 09:46 | P.HPHOSP_ITS ---
History of Present Illness Date of Service: 06/07/21 Chief Complaint: Cough, diarrhea, nausea and vomiting This is a 75 yo M with a PMH of DM, CAD s/p CABG, PAD s/p R SFA stent, active tobacco use, CKD stage 3, , vaccinated + boosted with mRNA vaccine for COVID who presents to the hospital with multiple complaints. Patient reports that his entire family has been sick for about 10 days. He reports that his symptoms started with multiple episodes of watery diarrhea (non-bloody) followed by epigastric pain with nausea and vomiting (non-bloody/non-bilious). He reports that his symptoms progressed to shortness of breath with exertion and a progressive non-productive cough. He reports that his cough has been so severe that he has been unable to sleep and hence the reason for presenting to the hospital. He denies any measured fevers but does endorse feeling feverish without chills over the last several days. He reports continued tobacco smoking. In the ED, the patient was found to be COVID positive. His CTA was negative for PE, but did reveal non-specific lung opacities. He was initially normooxic but desaturated to 88 perfect on room air. This has since improved and his O2 sats are now in the 90s on RA. However, given his chronic comorbid conditions and intermittent hypoxia -- he will be observed over night. Review of Systems Review of Systems: negative except HPI [facility] Medical History Anxiety Aortic stenosis CAD (coronary artery disease) Cardiomyopathy Carotid artery stenosis CKD stage 3 due to type 2 diabetes mellitus Colon cancer screening Compression fracture of L1 lumbar vertebra Congestive heart failure Diabetes type 2, controlled Diabetic 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 diabetes mellitus Diabetic polyneuropathy associated with type 2 diabetes mellitus Diabetic retinopathy associated with type 2 diabetes mellitus DM2 (diabetes mellitus, type 2) Dyslipidemia GERD (gastroesophageal reflux disease) Glaucoma History of renal calculi Hypertension Iliac artery stenosis, bilateral Infective endocarditis Left carotid stenosis shelter (current) use of insulin Overweight (BMI 25.0-29.9) Positive TB test Pulmonary nodule PVD (peripheral vascular disease) Tobacco abuse Family History Father Stomach cancer Mother Diabetes Surgical History Hx of appendectomy Hx of arthroscopy of right knee Hx of cataract removal with insertion of prosthetic lens Hx of coronary artery bypass graft Hx of shoulder surgery Hx of tonsillectomy Social History Housing: Apartment Alcohol intake: never Patient Tobacco Use Status: Current everyday Tobacco user Tobacco use type: Cigarette Cigarette Packs Per Day: 0.25 Cigarettes Per Day: 5 e-Cigarette/Vaping Use: Never Used Second Hand Smoke Exposure: Yes Use of substances other than those prescribed or required for medical reasons: No Advance Directives: No Advance Directives Information Provided: Yes Current occupational status: 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 Meds Allergies Allergy/AdvReac Type Severity Reaction Status Date / Time No Known Allergies Allergy Mild NONE Verified 05/24/21 15:05 Active Medications: Current Medications Pharmacy Consult (Consult Rx Perform Med Rec) 1 each MISCELLANE ONCE PRN PRN Reason: Consult order Home Medications Medication Instructions Recorded Confirmed Last Taken Type 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 meter (OneTouch #1 ea 03/06/21 04/05/21 Unknown History Verio Reflect Meter) ascorbic acid (vitamin C) 500 mg 500 mg PO DAILY 06/07/21 06/07/21 Unknown History tablet cholecalciferol (vitamin D3) 25 25 mcg PO DAILY 06/07/21 06/07/21 Unknown History mcg (1,000 unit) tablet dorzolamide 22.3 mg-timolol 6.8 1 drp OPHTHALMIC (EYE) BID 06/07/21 06/07/21 Unknown History mg/mL eye drops guselkumab 100 mg/mL subcutaneous mg SUBCUT 06/07/21 Unknown History auto-injector (Tremfya) multivitamin 1 tab PO DAILY 06/07/21 06/07/21 Unknown History Physical Exam Vital Signs and Narrative: Vital Signs: Last Vital Signs Temp 98.8 F 06/07/21 07:45 Pulse 80 06/07/21 07:45 Resp 18 06/07/21 07:45 BP 140/56 H 06/07/21 07:45 Pulse Ox 95 06/07/21 07:45 BMI result Body Mass Index 31.3 Const: Other: Constitutional - Awake and Alert, No apparent distress Eyes - PERRLA, EOMI Cardiovascular - S1S2, RRR, No edema Respiratory - Diminished sounds globally, no respiratory distress; saturation mid 90s on RA Gastrointestinal - NT / ND; +BS; No rebound or guarding - No CVA tenderness Extremities - no calf tenderness bilaterally, no swelling Musculoskeletal - Normal inspection, normal ROM Skin - Warm/Dry Neurological - Alert & oriented x3, No focal deficit Psychological - Appropriate affect Results Labs CBC and Chem 7: 06/07/21 06:02 06/07/21 06:02 Labs: Laboratory Results - last 24 hr 06/07/21 06/07/21 06/07/21 05:39 06:02 06:02 MCV 95.0 MCH 31.8 MCHC 33.5 RDW 13.1 Plt Count 169 MPV 10.4 Immature Gran % (Auto) 0.3 Neut % (Auto) 77.1 H Lymph % (Auto) 13.1 L [place] % (Auto) 6.8 Eos % (Auto) 2.4 Baso % (Auto) 0.3 Lymph # (Auto) 0.9 L [place] # (Auto) 0.5 Eos # (Auto) 0.2 Baso # (Auto) 0.0 Abs Immat Gran (auto) 0.02 Absolute Neuts (auto) 5.5 Absolute Nucleated RBC 0.000 Nucleated RBC % (auto) 0.0 Anion Gap 15 Estim Creat Clear Calc 57.2 Estimated GFR > 60 Random Glucose 163 H D Calcium 8.5 Total Bilirubin 0.7 AST 19 ALT 25 Alkaline Phosphatase 107 D Total Protein 6.8 Albumin 3.5 Lipase 29 COVID-19 (RAVEN) Positive A COVID-19 Clin Com See Note Imaging Radiologist's Impressions: Impressions Chest X-Ray 06/07/21 06:15 IMPRESSION: No acute pulmonary finding. Chest CTA 06/07/21 07:28 IMPRESSION: No pulmonary embolus demonstrated. Previous cardiac surgery. Mild nonspecific lung opacities. Marked volume loss in the region of L1 which was present at the time of MRI 04/11/20 VTE: negative Assessment and Plan (1) Pneumonia due to COVID-19 virus: Status: Acute Plan This is a 75 yo M with a PMH of DM, CAD s/p CABG, PAD s/p R SFA stent, active tobacco use, CKD stage 3, , vaccinated + boosted with mRNA vaccine for COVID, psoriasis on Humira who presents to the hospital with multiple complaints. His symptoms were mostly gastroenterological in nature initially but now has progressed to respiratory in nature as well. He is found to be COVID positive and had a brief period of hypoxia. He will be observed over night. 1. COVID pneumonia Check inflammatory biomarkers Given a dose of IV decadron in the ED, will hold off further steroids in light of his normal oxygenation; if desaturates, will start decadron symptoms onset > 10 days; unlikely to benefit from remdesivir 2. Gastroenteritis possibly due to above check stool studies for c. diff 3. DM basal + bolus DM diet 4. Chronic CAD / PAD continue antiplatelets + bb + statin 5. Chronic HTN continue baseilne meds 6. CKD3 monitor SCr 7. Psoariasis on Humira as outpatient Full Code DVT pptx, Lovenox At this time, the patient will be placed under observation. Should he have persistent hypoxia, he will need to be changed to inpatient level of care and started on treatment for COVID Quality Stroke Does the patient have a stroke diagnosis?: No VTE Prior VTE?: No VTE Risk Level:: Medical - moderate - high VTE Device Contraindication: Treatment Not Tolerated VTE Drug Contraindication: N/A - Med Ordered
[2021-06-07 09:54] LABS: C Reactive Protein 1.04 mg/dL (< or = 0.50); Lactate Dehydrogenase 270 U/L (118-273)
[2021-06-07 10:13] LABS: Procalcitonin 0.06 ng/mL
[2021-06-07 10:22] LABS: Ferritin 275 ng/mL (20-250)
--- NOTE | 2021-06-07 10:41 | PHA.MEDREC ---
Pharmacy Consult ? Medication Reconciliation Pharmacy has completed the medication reconciliation. Confirmed medications with patients Abigail using an interpretur. Liz StreeterD
[2021-06-07] MEDS: Enoxaparin Sodium 40 MG/0.4 ML SYRINGE SUBCUT (11:53)
--- NOTE | 2021-06-07 12:29 | PC.NURSE ---
Calista, daughter, offering to bring patient anything he wants. tel [phone].
--- NOTE | 2021-06-07 13:16 | PC.NURSE ---
Pt has been resting queitly in overflow 6 since arrival to unit. no SOB on 2L NC while at rest in room. LS CTA. c/o aching BLE and hips but declines offer for pain meds. Daughter, Calista, given update on phone. denies CP and cough.
[2021-06-07 13:34] LABS: Glucose, Whole Blood 220 mg/dL (60-115)
[2021-06-07] MEDS: Losartan Potassium 25 MG TABLET PO (13:44)
[2021-06-07] MEDS: Insulin Lispro 100 UNIT/ML 3 ML VIAL SUBCUT ×2 (13:44→21:11)
[2021-06-07] MEDS: Metoprolol Succinate ER 25 MG TAB.ER.24H PO (13:45)
[2021-06-07 16:49] LABS: Leukocytes Stool Qualitative NEGATIVE (NEGATIVE)
[2021-06-07 17:06] LABS: CDiff Gene PCR NEGATIVE (Negative)
[2021-06-07 18:53] LABS: Glucose, Whole Blood 233 mg/dL (60-115)
--- NOTE | 2021-06-07 19:46 | PC.NURSE ---
Pt has been resting quietly. Denies SOB. Able to manage bed mobility independently. Skin PWD. LS CTA. mora withing reach. nsr on monitor. awaits bed assignment on the floor.
--- NOTE | 2021-06-07 19:48 | PC.NURSE ---
dinner insulin held b/c trays arrived SO late ([id number]). Sliding scale coverage to be administered with evening snack.
[2021-06-07 20:57] LABS: Glucose, Whole Blood 239 mg/dL (60-115)
[2021-06-07] MEDS: Dorzolamide/Timolo 2.23%/0.68% 10 ML DRBTL 1 DROP EYE-BOTH (21:11)
[2021-06-07] MEDS: Gabapentin 300 MG CAPSULE PO (21:11)
[2021-06-08 04:15] VITALS: PULSE 76; RESP 20; O2SAT 100
[2021-06-08 06:38] VITALS: BP 145/63; PULSE 57; RESP 17; O2SAT 99
[2021-06-08 07:15] LABS: Glucose, Whole Blood 155 mg/dL (60-115)
[2021-06-08 07:59] LABS: HBc Num1 0.08 S/CO (0.00-0.79); Hepatitis A Antibody IgM 0.24 Index (0-0.79); Hepatitis B Core Antibody Nonreactive (Nonreactive); ~HepC Num1 0.09 S/CO (0.00-0.79); ~Hepatitis A Antibody IgM Nonreactive (Nonreactive); ~Hepatitis B Surface Antibody NONREACTIVE (Nonreactive); ~Hepatitis C Antibody Nonreactive (Nonreactive)
[2021-06-08 08:18] LABS: HBsAGNum1 0.18 S/CO (0.00-0.99); HIV AB/AG Nonreactive (Nonreactive); HIV Num 1 0.04 S/CO (0.00-0.99); Hepatitis B Surface Antigen Negative (Negative)
[2021-06-08] MEDS: Insulin Lispro 100 UNIT/ML 3 ML VIAL SUBCUT (08:23)
[2021-06-08] MEDS: amLODIPine Besylate 10 MG TABLET PO (08:24)
[2021-06-08] MEDS: Clopidogrel Bisulfate 75 MG TABLET PO (08:24)
[2021-06-08] MEDS: Cholecalciferol (Vitamin D3) 25 MCG TABLET PO (08:24)
[2021-06-08] MEDS: Multivitamin TABLET 1 TAB PO (08:24)
[2021-06-08] MEDS: Metoprolol Succinate ER 25 MG TAB.ER.24H PO (08:24)
[2021-06-08] MEDS: Insulin Glargine,Hum.rec.anlog 100 UNIT/ML 10 ML VIAL 20 UNIT SUBCUT (08:24)
[2021-06-08] MEDS: Losartan Potassium 25 MG TABLET PO (08:24)
[2021-06-08] MEDS: Aspirin Enteric Coated 81 MG TABLET.DR PO (08:24)
[2021-06-08] MEDS: 0.9 % Sodium Chloride Flush 3 ML SYRINGE IVFLUSH (08:24)
[2021-06-08] MEDS: Ascorbic Acid 500 MG TABLET PO (08:24)
[2021-06-08] MEDS: Dorzolamide/Timolo 2.23%/0.68% 10 ML DRBTL 1 DROP EYE-BOTH (08:24)
[2021-06-08 10:15] VITALS: BP 144/53; PULSE 62; RESP 15; O2SAT 98
--- NOTE | 2021-06-08 11:48 | PC.NURSE ---
Pt is A&Ox3, LCA, minimal and occasional cough that is dry with no production. Denies any pain, states he feels well enough to go home. O2 sat was 100% on 1LNC, NC removed, pt 100% on room air, ambulaton trial in room had )2 sats between 98 and 100% on room air. KENNEDY Smith aware. Good PO intact, NSR on monitor. Awaiting dispo, call mora within reach. Will continue to monitor.
--- NOTE | 2021-06-08 12:45 | PM.DS ---
DS: Providers Provider Date of Service: 06/08/21 Date of admission: 06/07/21 09:58 Date of discharge: 06/08/21 Primary care physician: Marcia Clements MD Attending physician on discharge: Bladimir Brito Discharging clinician: Sarah Carrion DS: Diagnosis Discharge Diagnosis (1) Pneumonia due to COVID-19 virus: Status: Acute (2) Acute hypoxemic respiratory failure due to COVID-19: Status: Acute DS: Summary Hospital Course Hospital Course: From H&P on day of admission This is a 75 yo M with a PMH of DM, CAD s/p CABG, PAD s/p R SFA stent, active tobacco use, CKD stage 3, , vaccinated + boosted with mRNA vaccine for COVID who presents to the hospital with multiple complaints. Patient reports that his entire family has been sick for about 10 days. He reports that his symptoms started with multiple episodes of watery diarrhea (non-bloody) followed by epigastric pain with nausea and vomiting (non-bloody/non-bilious). He reports that his symptoms progressed to shortness of breath with exertion and a progressive non-productive cough. He reports that his cough has been so severe that he has been unable to sleep and hence the reason for presenting to the hospital. He denies any measured fevers but does endorse feeling feverish without chills over the last several days. He reports continued tobacco smoking. In the ED, the patient was found to be COVID positive. His CTA was negative for PE, but did reveal non-specific lung opacities. He was initially normooxic but desaturated to 88 perfect on room air. This has since improved and his O2 sats are now in the 90s on RA. However, given his chronic comorbid conditions and intermittent hypoxia -- he will be observed over night. Acute respiratory failure with hypoxia secondary to COVID pneumonia. Patient symptoms greater than 10 days, unlikely to benefit from remdesivir or steroids. Patient had brief episode of hypoxia and therefore the decision was made to observe overnight. He is currently saturating 98% air, he was ambulated and maintained his oxygen saturation in the high 90s. He has only mild symptoms with no shortness of breath and mild cough which is reports is improving. Gastroenteritis symptoms may be secondary to COVID-19. C diff was negative and stool wbc's unremarkable. He has no abdominal pain at this time. He was maintained on his home medications and no other changes were made. He is now stable to return home. Time Spent with Patient Time attestation: Total time spent providing and/or coordinating discharge services: Discharge coordination time: Greater than 30 minutes Quality: Stroke Does the patient have a stroke diagnosis?: No Physical Exam Vital Signs: Vital Signs: Last Vital Signs Temp 97.9 F 06/07/21 20:20 Pulse 62 06/08/21 10:15 Resp 15 06/08/21 10:15 BP 144/53 H 06/08/21 10:15 Pulse Ox 98 06/08/21 10:15 BMI result Body Mass Index 31.3 Const: General: cooperative, comfortable, no acute distress, alert and awake Nutritional Appearance: average body habitus Resp: Effort & Inspection: normal respiratory effort and able to speak in complete sentences Cardio: Rate: regular rate Heart sounds: S1 normal heart sound present and S2 normal heart sound present GI: Inspection: No distended Palpation (GI): Soft to palpation and nontender Extrem: Other: no leg edema DS: Data Data Completed and Pending Labs on day of discharge: Laboratory Results - last 24 hr 06/07/21 06/07/21 06/07/21 13:21 15:31 15:31 POC Glucose 220 H Stool Leukocytes, Qual NEGATIVE C. difficile Tox B Gene NEGATIVE Hepatitis A IgM Ab Hep Bs Antigen Hep Bs Antibody Hep B Core Total Ab Hepatitis C Ab (EIA) HIV 1&2 Ab/P24 Ag 4thGn 06/07/21 06/07/21 06/08/21 18:44 20:53 06:06 POC Glucose 233 H 239 H Stool Leukocytes, Qual C. difficile Tox B Gene Hepatitis A IgM Ab Nonreactive Hep Bs Antigen Negative Hep Bs Antibody NONREACTIVE Hep B Core Total Ab Nonreactive Hepatitis C Ab (EIA) Nonreactive HIV 1&2 Ab/P24 Ag 4thGn Nonreactive 06/08/21 07:09 POC Glucose 155 H Stool Leukocytes, Qual C. difficile Tox B Gene Hepatitis A IgM Ab Hep Bs Antigen Hep Bs Antibody Hep B Core Total Ab Hepatitis C Ab (EIA) HIV 1&2 Ab/P24 Ag 4thGn Discharge Plan Discharge Patient Disposition: Home, Self-Care Discharge Diagnosis: covid 19 Referrals: Po,Marcia Overton MD [Primary Care Provider] - 1 Week Discharge Medications: Continued (DME) 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 meter [FreeStyle [place] Lite] Kit See Rx Instructions .ROUTE .MEDSUPPLY Qty: 1 0RF Rx Instructions: As directed gabapentin 300 mg capsule 300 mg PO BEDTIME Qty: 90 2RF aspirin 81 mg tablet,delayed release (DR/EC) 81 mg PO DAILY Qty: 90 3RF (DME) 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 meter [OneTouch Verio IQ Meter] Kit See Rx Instructions .Route Qty: 1 0RF Rx Instructions: As directed 3x/day (DME) OneTouch Verio test strips Strip See Rx Instructions .ROUTE .MEDSUPPLY Qty: 100 11RF Rx Instructions: Three times a day (DME) lancets [OneTouch Delica Plus Lancet] 33 gauge misc See Rx Instructions .Route Qty: 100 11RF Rx Instructions: As directed 3x/day amlodipine 10 mg tablet 10 mg PO DAILY Qty: 90 1RF albuterol sulfate [ProAir HFA] 90 mcg/actuation HFA aerosol inhaler 2 puff inhalation Q4-6H PRN (Reason: Wheezing) Qty: 8.5 0RF acetaminophen [Tylenol Extra Strength] 500 mg tablet 500 mg PO Q6H PRN (Reason: pain or fever) Qty: 20 0RF clopidogrel [Plavix] 75 mg tablet 75 mg PO DAILY Qty: 90 1RF oxycodone 5 mg tablet 5 mg PO Q6H PRN (Reason: pain) Qty: 14 0RF hydrocortisone 2.5 % ointment 1 appl topical QD-TID PRN (Reason: skin irritation) Qty: 454 2RF dorzolamide-timolol 22.3-6.8 mg/mL drops 1 drp ophthalmic (eye) BID 0RF Tremfya 100 mg/mL auto-injector subcut 0RF multivitamin Tablet 1 tab PO DAILY 0RF ascorbic acid (vitamin C) 500 mg Tablet 500 mg PO DAILY 0RF cholecalciferol (vitamin D3) 25 mcg (1,000 unit) Tablet 25 mcg PO DAILY 0RF losartan 25 mg tablet 25 mg PO DAILY 90 Days Qty: 90 1RF metoprolol succinate 25 mg tablet extended release 24 hr 25 mg PO DAILY Qty: 90 1RF (DME) FreeStyle Lite Strips Strip See Rx Instructions ea Not Applicable BID Qty: 300 3RF Rx Instructions: 3 times a day (DME) pen needle, diabetic [BD Martina 2nd Gen Pen Needle] 32 gauge x 5/32 needle See Rx Instructions .MEDSUPPLY Qty: 400 4RF Rx Instructions: 5 times a day (DME) lancets 28 gauge misc See Rx Instructions ea Not Applicable BID Qty: 300 3RF Rx Instructions: 3 times a day (DME) FreeStyle Lite Strips Strip See Rx Instructions .ROUTE .MEDSUPPLY Qty: 150 11RF Rx Instructions: As directed four times a day (DME) 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 meter [OneTouch Verio Reflect Meter] Mis See Rx Instructions kit .ROUTE .MEDSUPPLY Qty: 1 0RF Rx Instructions: As directed No Action benzonatate 200 mg capsule 200 mg PO BID-TID PRN (Reason: cough) Qty: 30 0RF Paxlovid (EUA) 150 mg x 2- 100 mg tablet See Rx Instructions PO .COMPLEX Qty: 30 0RF Rx Instructions: take TWO 150 mg tablets of nirmatrelvir with ONE 100 mg tablet of ritonavir twice daily for 5 days PO insulin degludec 100 unit/mL (3 mL) insulin pen 18 unit subcut DAILY 90 Days Qty: 16.2 2RF Trulicity 0.75 mg/0.5 mL pen injector 0.75 mg subcut QWEEK Qty: 2 0RF Rx Instructions: After 4 weeks to increase to Trulicity 1.5mg/week Trulicity 1.5 mg/0.5 mL pen injector 1.5 mg subcut QWEEK 28 Days Qty: 2 5RF insulin lispro [Humalog KwikPen Insulin] 100 unit/mL insulin pen 5 - 9 unit subcut TID 90 Days Qty: 15 2RF Rx Instructions: before meals as directed Discharge Orders: Discharge Order (Routine); Ordered 06/08/21 Ordered By: Sarah Carrion Activity on Discharge: As tolerated Stand Alone Forms: Patient Portal Discharge page Care Plan Goals: see below Health Concerns: covid 19 Plan of Treatment: supportive care call to schedule follow up with PCP as needed CDC Guidelines for home isolation: - Stay away from others - Limit contact with pets and animals: If you must care for a pet, wash your hands before and after interacting with them - Wear a mask if you are sick - Cover your mouth and nose with a tissue when you cough or sneeze. Dispose of tissues in a lined trash can and wash your hands immediately with soap and water for at least 20 seconds. If soap and water are not available, clean hands with alcohol-based hand beauty culturist apprentice that contains at least 60% alcohol. - Clean your hands often with soap and water for at least 20 seconds - Avoid touching your eyes, nose and mouth with unwashed hands - Do not share dishes, drinking glasses, cups, eating utensils, towels, or bedding with other people in your home. After using these items, wash them thoroughly with soap and water or put in the construction secretary. - Clean high-touch surfaces in your isolation area (???sick room??? and bathroom) every day; let a caregiver clean and disinfect high-touch surfaces in other areas of the home. Clean the area or item with soap and water or another detergent if it is dirty. Then, use a household disinfectant. Seek medical attention, but call first: - Seek medical care right away if your illness is worsening (for example, if you have difficulty breathing). - Call your doctor before going in: Before going to the doctor???s office or emergency room, call ahead and tell them your symptoms. They will tell you what to do. - If possible, put on a facemask before you enter the building. If you can???t put on a facemask, try to keep a safe distance from other people (at least 6 feet away). This will help protect the people in the office or waiting room. - Follow care instructions from your healthcare provider and local health department: Your local health authorities will give instructions on checking your symptoms and reporting information. Emergency warning signs for COVID-19: - Difficulty breathing or shortness of breath - Persistent pain or pressure in the chest - New confusion or inability to arouse - Bluish lips or face Assessment: see discharge summary Discharge Date/Time: 06/08/21 16:15
[2021-06-08 13:08] LABS: Glucose, Whole Blood 135 mg/dL (60-115)
--- NOTE | 2021-06-08 13:41 | MHC.CM.PN ---
CM CONTACTED PTS DAUGHTER, TRAVIS LEMOS ([phone]) DUE TO PTS COVID-19 + STATUS TRAVIS REPORTS THE PT LIVES AT HOME WITH HIS AND IS MOSTLY INDEPENDENT WITH CARE SHE REPORTS HER MOTHER HELPS PT WITH WHATEVER HE NEEDS SHE REPORTS HE HAS NO DME OR SERVICES IN THE HOME BUT WOULD BENEFIT FROM [employer] REFERRAL WILL BE MADE TO [facility] PCP IS AAYUSH GUILLERMO PT HAS A HCP ON FILE OBSERVATION NOTICE DELIVERED COPY SENT TO [facility] PT WILL BE DISCHARGED HOME TODAY WITH NO SERVICES FAMILY TO TRANSPORT
== END 2021-06-08 16:15 | disposition home or self-care (01) ==
LOC: HO.ED 06:51 → HO.EDOVER 10:18
PROVIDERS: Hospitalist; Admitting Provider Family Medicine; Emergency Provider Internal Medicine; PCP Internal Medicine; Visit Provider Physician Assistant Medical
DX: U07.1 COVID-19 (principal); J12.82 Pneumonia due to coronavirus disease 2019; J96.01 Acute respiratory failure with hypoxia; R07.89 Other chest pain; E11.22 Type 2 diabetes mellitus with diabetic chronic kidney disease; E11.21 Type 2 diabetes mellitus with diabetic nephropathy; E11.42 Type 2 diabetes mellitus with diabetic polyneuropathy; E11.319 Type 2 diabetes mellitus with unspecified diabetic retinopathy without macular edema; I25.10 Atherosclerotic heart disease of native coronary artery without angina pectoris; I12.9 Hypertensive chronic kidney disease with stage 1 through stage 4 chronic kidney disease, or unspecified chronic kidney disease; N18.30 Chronic kidney disease, stage 3 unspecified; E78.5 Hyperlipidemia, unspecified; I73.9 Peripheral vascular disease, unspecified; L40.9 Psoriasis, unspecified; K52.9 Noninfective gastroenteritis and colitis, unspecified; R76.11 Nonspecific reaction to tuberculin skin test without active tuberculosis; F17.210 Nicotine dependence, cigarettes, uncomplicated; Z95.1 Presence of aortocoronary bypass graft; Z79.4 Long term (current) use of insulin; Z79.899 Other long term (current) drug therapy
CPT/HCPCS: 36415; 71045; 71275; 80053; 82728; 82947; 83615; 83690; 84145; 85025; 86140; 86704; 86706; 86709; 86803; 87340; 87389; 87493; 87635; 89055; 94640; 96361; 96374; 96375; 99219; 99285; J1100; J1650; J2405; Q9967

== ENCOUNTER → 2021-06-13 10:49 | Outpatient (BNVA) | payer MEDICARE, SELFPAY | PROVIDERS: PCP Internal Medicine; Visit Provider Nurse Practitioner Gerontology | DX: E11.65 Type 2 diabetes mellitus with hyperglycemia (principal); E11.21 Type 2 diabetes mellitus with diabetic nephropathy; E11.42 Type 2 diabetes mellitus with diabetic polyneuropathy; E11.319 Type 2 diabetes mellitus with unspecified diabetic retinopathy without macular edema; E11.22 Type 2 diabetes mellitus with diabetic chronic kidney disease; I12.9 Hypertensive chronic kidney disease with stage 1 through stage 4 chronic kidney disease, or unspecified chronic kidney disease; N18.30 Chronic kidney disease, stage 3 unspecified; E78.5 Hyperlipidemia, unspecified; Z79.4 Long term (current) use of insulin | CPT/HCPCS: Q3014 ==

== ENCOUNTER 2021-07-05 08:16 | Outpatient (REF) | payer MEDICARE, SELFPAY ==
--- NOTE | ~2021-07-05 | XR_ITS ---
EXAMINATION: XR WRIST, RIGHT CLINICAL INFORMATION: Fracture COMPARISON: Previous x-ray most recent May 2019 TECHNIQUE: PA, lateral, and oblique views of the right wrist. FINDINGS: Healing intra-articular right distal radius fracture and ulnar styloid fractures appear unchanged. Carpal bones are normal. There is soft tissue arterial calcification. XR/XR wrist RT min 3V IMPRESSION: Healing intra-articular right distal radius and ulnar styloid fractures.
== END 2021-07-05 08:17 | disposition home or self-care (01) ==
LOC: HO.HOSX 08:16
PROVIDERS: Visit Provider Physician Assistant
DX: S52.501D Unspecified fracture of the lower end of right radius, subsequent encounter for closed fracture with routine healing (principal)
CPT/HCPCS: 73110; 99212

== ENCOUNTER 2021-07-11 10:33 | Outpatient (REF) | payer MEDICARE, SELFPAY ==
--- NOTE | ~2021-07-11 | US_ITS ---
EXAMINATION: NONINVASIVE ASSESSMENT OF THE ARTERIES OF BOTH LOWER EXTREMITIES INCLUDING PVR EXAM AND BILATERAL LOWER EXTREMITY DUPLEX. CLINICAL INFORMATION: Bilateral peripheral vascular disease, femoral stent placement in March 2021 COMPARISON: Bilateral noninvasive arterial evaluation on 03/16/2021 TECHNIQUE: Ankle pulse volume recordings, ankle pressure measurements and ankle brachial indices were obtained of the lower extremity arterial system bilaterally in addition to duplex Doppler techniques with wave form analysis and measurement of velocities in the common femoral, profunda femoral, superficial femoral, popliteal, tibial and peroneal arteries. The study was performed only at rest. FINDINGS: RIGHT LEG 1. THE RIGHT ANKLE-BRACHIAL INDEX IS: 1.34 >0.97-1.25 = normal - no significant arterial disease 0.75-0.96 = mild peripheral arterial disease 0.5-0.74 = moderate peripheral arterial disease <0.50 = severe peripheral arterial disease <0.30 = critical arterial disease 2. SEGMENTAL PRESSURES (mmHg): Ankle: PT 173, DP 202 3. PVR WAVEFORMS: Ankle: Monophasic 4. DIRECT DUPLEX: Common femoral artery: 189 cm/s, Multiphasic Profunda femoris artery: 139 cm/s, Multiphasic Superficial femoral artery (proximal): 155 cm/s, Multiphasic Superficial femoral artery (mid): 138 cm/s, Multiphasic Superficial femoral artery (distal): 82 cm/s, Multiphasic Proximal Popliteal artery: 82 cm/s, Multiphasic Distal popliteal artery: 82 cm/s, Multiphasic Mid posterior tibial artery: 30 cm/s, monophasic LEFT LE. THE LEFT ANKLE-BRACHIAL INDEX IS: 1.33 (higher of the DP/PT) >0.97-1.25 = normal - no significant arterial disease 0.75-0.96 = mild peripheral arterial disease 0.5-0.74 = moderate peripheral arterial disease <0.50 = severe peripheral arterial disease <0.30 = critical arterial disease 2. SEGMENTAL PRESSURES: Ankle: PT 155, DP 201 3. PVR WAVEFORMS: Ankle: Monophasic 4. DIRECT DUPLEX: Common femoral artery: 178 cm/s, Multiphasic Profunda femoris artery: 124 cm/s, Multiphasic Superficial femoral artery (proximal): 161 cm/s, Multiphasic Superficial femoral artery (mid): 273 cm/s, Multiphasic Superficial femoral artery (distal): 123 cm/s, Multiphasic Proximal Popliteal artery: 91 cm/s, Multiphasic Mid posterior tibial artery: 30 cm/s, Multiphasic US/US arterial duplex LE BI IMPRESSION: Right leg: Patent stent in the proximal right superficial femoral artery. Mild stenosis in the common femoral, profunda, and mid-distal superficial femoral artery. Left lower extremity: Moderate-severe stenosis of the left mid superficial femoral artery and scattered areas of mild stenosis in the common femoral and profunda.
--- NOTE | ~2021-07-11 | US_ITS ---
EXAMINATION: US RETROPERITONEAL LIMITED (AORTA) CLINICAL INFORMATION: Atherosclerotic disease, PVD. COMPARISON: Abdominal aortic ultrasound on 03/16/2021 TECHNIQUE: Dial-scale, color Doppler and spectral Doppler evaluation of the abdominal aorta. FINDINGS: There is atherosclerotic disease. The measurements of the aorta in maximum AP and transverse dimensions respectively are as follows: Proximal: 2.8 cm. Mid: 2.0 cm. Distal: 1.6 cm. PSV: 142 cm/s. The measurements of the common iliac arteries in maximum AP and TRV dimensions are as follows: Right Common Iliac Artery: Not measured but appears normal in caliber. Left Common Iliac Artery: Stent within the left common iliac artery is patent US/US abdominal aortic aneurysm IMPRESSION: No abdominal aortic or iliac artery aneurysm. Elevated velocities of atherosclerotic disease in the bilateral common iliac arteries suggests mild stenosis.
== END 2021-07-11 10:34 | disposition home or self-care (01) ==
LOC: HO.US 10:33
PROVIDERS: Visit Provider Surgery Vascular Surgery
DX: I73.9 Peripheral vascular disease, unspecified (principal)
CPT/HCPCS: 76706; 93925

== ENCOUNTER → 2021-07-17 10:39 | Outpatient (BNVA) | payer MEDICARE, SELFPAY | PROVIDERS: PCP Internal Medicine; Visit Provider Surgery Vascular Surgery | DX: I73.9 Peripheral vascular disease, unspecified (principal) | CPT/HCPCS: 99212 ==

== ENCOUNTER → 2021-07-18 12:36 | Outpatient (BNVA) | payer MEDICARE, SELFPAY | PROVIDERS: PCP Internal Medicine; Visit Provider Nurse Practitioner Gerontology | DX: E11.21 Type 2 diabetes mellitus with diabetic nephropathy (principal); E11.42 Type 2 diabetes mellitus with diabetic polyneuropathy; E11.319 Type 2 diabetes mellitus with unspecified diabetic retinopathy without macular edema; E11.22 Type 2 diabetes mellitus with diabetic chronic kidney disease; I12.9 Hypertensive chronic kidney disease with stage 1 through stage 4 chronic kidney disease, or unspecified chronic kidney disease; N18.30 Chronic kidney disease, stage 3 unspecified; E78.5 Hyperlipidemia, unspecified; S90.412A Abrasion, left great toe, initial encounter; Z79.4 Long term (current) use of insulin | CPT/HCPCS: 82947; 99212 ==

== ENCOUNTER → 2021-08-15 15:02 | Outpatient (BNVA) | payer MEDICARE, SELFPAY | PROVIDERS: PCP Internal Medicine; Visit Provider Registered Nurse Diabetes Educator | DX: E11.42 Type 2 diabetes mellitus with diabetic polyneuropathy (principal); Z79.4 Long term (current) use of insulin | CPT/HCPCS: 99211 ==

== ENCOUNTER 2021-08-16 06:03 | Outpatient (REF) | payer MEDICARE, SELFPAY | END 2021-08-16 06:04 | disposition home or self-care (01) | LOC: HO.HOSX 06:03 | PROVIDERS: Visit Provider Physician Assistant | DX: Z13.89 Encounter for screening for other disorder (principal) ==

== ENCOUNTER 2021-08-22 08:04 | Outpatient (REF) | payer MEDICARE, SELFPAY ==
--- NOTE | ~2021-08-22 | XR_ITS ---
EXAMINATION: XR WRIST, RIGHT CLINICAL INFORMATION: Healing fracture COMPARISON: 07/05/2021 and 05/31/2021 TECHNIQUE: PA, lateral, and oblique views of the right wrist. FINDINGS: There is interval healing of comminuted fracture of distal radius and avulsion of ulnar styloid. Fragments are anatomical alignment. Intra-articular fracture line is healed. There is mild diffuse osteopenia. Vascular calcifications seen in the soft tissues. There is no joint effusion. XR/XR wrist RT min 3V IMPRESSION: Interval healing.
== END 2021-08-22 08:05 | disposition home or self-care (01) ==
LOC: HO.HOSX 08:04
PROVIDERS: Visit Provider Physician Assistant
DX: S52.502D Unspecified fracture of the lower end of left radius, subsequent encounter for closed fracture with routine healing (principal); M65.331 Trigger finger, right middle finger
CPT/HCPCS: 73110

== ENCOUNTER 2021-09-17 09:18 | Day surgery (SDC) | payer MEDICARE, SELFPAY ==
--- NOTE | 2021-09-17 07:49 | W.PM.OPN ---
Operative Note Operative Note Date of Service: 09/17/21 Narrative: Operative Note Preop diagnosis: 1. right middle finger Trigger finger Postop diagnosis: 1. right middle finger Trigger finger Procedure: 1. right middle finger A1 anya release Surgeon: Yuki Barnett MD Anesthesia: local block using 1% lidocaine with epinephrine Findings: No locking or catching after A1 anya release EBL: Less than 5 mL Tourniquet time: None Specimens: None Complications: None Disposition: Brought to recovery room in stable condition Plan: Follow-up for 10-14 days for wound check and suture removal Indications: The patient is 76 years old, with a right middle finger trigger finger that has been unresponsive to nonoperative management. The risks and benefits of operative treatment including but not limited to risk of damage to blood vessels, nerves, tendons, infection, persistent pain, persistent symptoms, recurrence or possible need for additional surgery were discussed with the patient and the patient wishes to proceed with surgery. Procedure: Once consent was obtained a local block was performed in the preop area using a combination of 1% lidocaine with epinephrine. The patient was then brought back to the operating suite and placed on the operative table in supine position. A tourniquet was applied to the proximal aspect of the right upper extremity and the limb was prepped and draped in a standard surgical fashion. Once assured that we had a good block, a 1.5 cm oblique incision was made centered over the A1 anya of the right middle finger . The incision was made through the skin to the subcutaneous tissues using a #15 blade. Careful dissection was made down to the level of the A1 anya using tenotomy scissors, with care being taken to protect the nearby neurovascular structures. A longitudinal incision was made in the A1 anya 1st using a #15 blade, then using tenotomy scissors under direct visualization. The A1 anya was noted to be thickened. Following our A1 anya release, we no longer saw any locking or catching of the digit with flexion and extension. Once satisfied with our A1 anya release the wound was copiously irrigated with normal saline and hemostasis was obtained with a brief period of local pressure. The skin edges were reapproximated with some 5.0 nylon suture material and a sterile dressing was applied. The patient appears to have tolerated the procedure well and with no complications. All digits were well vascularized at the conclusion of the case.
[2021-09-17 10:30] VITALS: BP 135/52; PULSE 75; RESP 16; TEMP 36.1; O2SAT 96; BMI 30.5
--- NOTE | 2021-09-17 10:49 | MHC.SHP ---
Pre-Procedural Eval Section A Date of Service: 09/17/21 Section B Chief Complaint: Trigger finger, right middle finger Allergies: Allergies Allergy/AdvReac Type Severity Reaction Status Date / Time No Known Allergies Allergy Mild NONE Verified 08/22/21 12:06 Plan I have reviewed the history and physical and performed a pertinent physical examination on my patient. No changes have occurred unless specified.
[2021-09-17 12:09] VITALS: BP 158/66; PULSE 98; RESP 18; O2SAT 98
== END 2021-09-17 12:11 | disposition home or self-care (01) ==
PROVIDERS: PCP Internal Medicine; Visit Provider Orthopaedic Surgery
PROC: (CPT 26055; principal; 2021-09-17 10:50)
DX: M65.331 Trigger finger, right middle finger (principal); E11.22 Type 2 diabetes mellitus with diabetic chronic kidney disease; I13.0 Hypertensive heart and chronic kidney disease with heart failure and stage 1 through stage 4 chronic kidney disease, or unspecified chronic kidney disease; F17.210 Nicotine dependence, cigarettes, uncomplicated; N18.30 Chronic kidney disease, stage 3 unspecified; I50.9 Heart failure, unspecified; E11.21 Type 2 diabetes mellitus with diabetic nephropathy; E11.42 Type 2 diabetes mellitus with diabetic polyneuropathy; E11.319 Type 2 diabetes mellitus with unspecified diabetic retinopathy without macular edema; Z79.4 Long term (current) use of insulin; H40.9 Unspecified glaucoma; E78.5 Hyperlipidemia, unspecified
CPT/HCPCS: 26055; J0171

== ENCOUNTER 2021-10-10 08:05 | Outpatient (REF) | payer MEDICARE, SELFPAY ==
[2021-10-10 08:28] LABS: MANUAL DIFF FLAG NO
[2021-10-10 08:54] LABS: Basophils Absolute Auto 0.1 X10*3/uL (0.0-0.2); Basophils Percent Auto 0.7 % (0-2); Eosinophils Absolute Auto 0.5 X10*3/uL (0.0-0.4); Eosinophils Percent Auto 5.9 % (0-4); Hematocrit 36.7 % (42.0-52.0); Hemoglobin 12.5 g/dl (14.0-18.0); Imm Gran Abs Auto 0.02 X10*3/uL (0.00-0.03); Imm Gran Pct Auto 0.2 % (0.0-0.4); Immature Retic Fraction 11.9 % (2.3-13.4); Lymphocytes Absolute Auto 2.8 X10*3/uL (1.2-4.9); Lymphocytes Percent Auto 31.1 % (20-40); Mean Corpuscular HGB Conc 34.1 g/dl (31.0-36.0); Mean Corpuscular Hemoglobin 31.6 pg (27.0-33.0); Mean Corpuscular Volume 92.7 fL (80.0-98.0); Mean Platelet Volume 10.6 fL (9.4-12.4); Monocytes Absolute Auto 0.9 X10*3/uL (0.1-1.2); Neutrophils Absolute Auto 4.8 x10*3/uL (2.0-8.3); Neutrophils Percent Auto 52.1 % (45-73); Platelet Count 188 X10*3/uL (160-400); Red Blood Count 3.96 X10*6/uL (4.60-5.80); Retic HGB Equivalent 37.1 pg (30.0-35.0); Reticulocyte Percent 1.7 % (0.5-1.8); Reticulocytes Absolute 0.067 X10*6/uL (0.026-0.095); White Blood Count 9.1 X10*3/uL (4.8-10.8)
[2021-10-10 09:28] LABS: Alanine Aminotransferase 28 U/L (0-40); Alkaline Phosphatase 82 U/L (39-117); Anion Gap 12 (12-20); Aspartate Amino Transferase 18 U/L (5-37); Bilirubin Total 0.4 mg/dL (0.0-1.0); Blood Urea Nitrogen 23 mg/dL (9-16); Carbon Dioxide 26 mmol/L (22-29); Chloride 108 mmol/L (96-108); Cholesterol 203 mg/dL; Estimated Glomerular Filt Rate 57; Glucose Random 74 mg/dL (60-115); HDL Cholesterol 35 mg/dL; Iron 71 mcg/dL (45-160); LDL Cholesterol Calculated 144 mg/dl; Percent Iron Saturation 26 % (15-50); Potassium 4.5 mmol/L (3.3-5.1); Sodium 141 mmol/L (135-145); Total Iron Binding Capacity 276 mcg/dL (228-428); Total Protein 7.4 g/dL (6.5-8.0); Triglycerides 121 mg/dL; Unsaturated Iron Binding 205 ug/dL
[2021-10-10 09:40] LABS: Ferritin 150 ng/mL (20-250); Free T4 (Free Thyroxine) 1.08 ng/dL (0.71-1.85)
[2021-10-10 09:45] LABS: Creatinine Urine 90.24 mg/dL; Microalbum/Creatinine Ratio Ur 386.7 ug/mg cr
[2021-10-10 11:10] LABS: Folate 10.5 ng/mL (> or = 4.0); Vitamin B12 478 pg/mL (200-900)
[2021-10-12 13:15] LABS: LDL Cholesterol Direct 145 mg/dL (<100)
== END 2021-10-10 08:06 | disposition home or self-care (01) ==
LOC: HO.LAB 08:05
PROVIDERS: Nurse Practitioner Gerontology; PCP Internal Medicine; Visit Provider Internal Medicine
DX: E11.65 Type 2 diabetes mellitus with hyperglycemia (principal); E11.42 Type 2 diabetes mellitus with diabetic polyneuropathy; E78.5 Hyperlipidemia, unspecified
CPT/HCPCS: 36415; 80053; 80061; 82043; 82607; 82728; 82746; 83540; 83721; 84439; 84443; 85025; 85045

== ENCOUNTER 2021-10-16 08:06 | Emergency (ER) | payer MEDICARE, SELFPAY ==
--- NOTE | ~2021-10-16 | XR_ITS ---
EXAMINATION: XR CHEST CLINICAL INFORMATION: Evaluate pneumonia. COMPARISON: Chest CT from 01/27/2017 and 06/07/2021. TECHNIQUE: Frontal view of the chest was obtained. FINDINGS: The emphysematous lungs are well expanded. There appears to be chronic thickening of the bronchial perez. No acute findings in the lungs compared to 06/07/2021. No focal consolidation or pleural effusion. Cardiac silhouette has normal size and contour, status post coronary artery bypass graft surgery. The sternotomy wires are intact. Skeletal findings include chronic osteoarthritis of glenohumeral joints. XR/XR chest 1V IMPRESSION: * No radiographic evidence of pneumonia. * The bronchial perez appear to be chronically thickened in this patient with emphysematous lung disease. Query if there is history of chronic obstructive pulmonary disease.
[2021-10-16 08:57] VITALS: BP 143/65; PULSE 69; RESP 18; TEMP 35.6; O2SAT 95; BMI 31.3
[2021-10-16 09:19] LABS: COVID-19 Test Negative (Negative)
--- NOTE | 2021-10-16 09:46 | ED_ITS ---
HPI - General Adult General Chief complaint: Upper Respiratory Symptoms Stated complaint: Cough Time Seen by Provider: 10/16/21 08:07 Source: patient Mode of arrival: ambulatory Limitations: no limitations History of Present Illness HPI narrative: Patient comes to the emergency room complaining of dry cough for 2 weeks. Patient denies fever chills, no shortness of breath, no chest pain or abdominal pain. Related Data Home Medications Medication Instructions Recorded Confirmed 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 meter (OneTouch #1 ea 03/06/21 07/05/21 Verio Reflect Meter) ascorbic acid (vitamin C) 500 mg 500 mg PO DAILY 06/07/21 07/18/21 tablet cholecalciferol (vitamin D3) 25 25 mcg PO DAILY 06/07/21 07/18/21 mcg (1,000 unit) tablet dorzolamide 22.3 mg-timolol 6.8 1 drp ophthalmic (eye) BID 06/07/21 07/05/21 mg/mL eye drops guselkumab 100 mg/mL subcutaneous mg subcut 06/07/21 07/05/21 auto-injector (Tremfya) multivitamin 1 tab PO DAILY 06/07/21 07/05/21 dulaglutide 1.5 mg/0.5 mL 1.5 mg subcut QWEEK 07/18/21 07/18/21 subcutaneous pen injector (Trulicity) Previous Rx's Medication Instructions Recorded 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 meter (FreeStyle #1 ea 02/29/20 [place] Lite kit) lancets 28 gauge #300 ea 07/12/20 pen needle, diabetic 32 gauge x #400 ea 07/12/20/32 (BD Martina 2nd Gen Pen Needle) FreeStyle Lite Strips (blood sugar #300 ea 08/01/20 diagnostic) aspirin 81 mg tablet,delayed 81 mg PO DAILY #90 tabs 11/16/20 release losartan 25 mg tablet 25 mg PO DAILY 90 days #90 tabs 11/17/20 acetaminophen 500 mg tablet 500 mg PO Q6H PRN pain or fever 01/30/21 (Tylenol Extra Strength) #20 tabs albuterol sulfate 90 mcg/actuation 2 puff inhalation Q4-6H PRN 01/31/21 aerosol inhaler (ProAir HFA) Wheezing #8.5 grams blood sugar diagnostic (FreeStyle #150 ea 02/23/21 Lite Strips) blood sugar diagnostic (OneTouch #100 ea 02/23/21 Verio test strips) 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 meter (OneTouch #1 ea 02/23/21 Verio IQ Meter kit) lancets 33 gauge (OneTouch Delica #100 ea 02/23/21 Plus Lancet) clopidogrel 75 mg tablet (Plavix) 75 mg PO DAILY #90 tabs 03/28/21 hydrocortisone 2.5 % topical 1 appl topical QD-TID PRN skin 05/22/21 ointment irritation #454 grams benzonatate 200 mg capsule 200 mg PO BID-TID PRN cough #30 06/09/21 caps nirmatrelvir 300 mg (150 mg x See Rx Instructions PO .COMPLEX 06/09/21 2)-ritonavir 100 mg tablet (EUA) #30 tabs (Paxlovid) insulin degludec 100 unit/mL (3 18 unit (0.18 mL) subcut DAILY 90 06/13/21 mL) subcutaneous pen days #16.2 mL insulin lispro 100 unit/mL 5 - 9 unit (0.05 - 0.09 mL) subcut 06/13/21 subcutaneous pen (Humalog KwikPen TID 90 days #15 mL (U-100) Insulin) amlodipine 10 mg tablet 10 mg PO DAILY #90 tabs 07/23/21 gabapentin 300 mg capsule 300 mg PO BEDTIME #90 caps 07/24/21 metoprolol succinate 25 mg 25 mg PO DAILY #90 tabs 07/24/21 tablet,extended release 24 hr hydrocodone 5 mg-acetaminophen 325 1 tab PO Q4-6H PRN pain #5 tabs 09/17/21 mg tablet azithromycin 250 mg tablet 250 mg PO DAILY 5 days #5 tabs 10/16/21 (Zithromax Z-Roland) prednisone 50 mg tablet 50 mg PO DAILY #5 tabs 10/16/21 Allergies Allergy/AdvReac Type Severity Reaction Status Date / Time No Known Allergies Allergy Mild NONE Verified 10/08/21 15:21 Review of Systems Review of Systems: Constitutional : No Weight loss, No Fever, No Chills, No Night Sweats, No Fatigue, No Malaise ENT/Mouth : No Hearing loss, No Ear Pain, No Nasal Congestion, No Sinus Pain, No Hoarseness, No sore throat, No Rhinorrhea, No Swallowing Difficulty Eyes: No Eye Pain, No Swelling, No Redness, No Foreign Body, No Discharge, No Vision Changes Cardiovascular : No Chest Pain, No SOB, No Dyspnea on Exertion, No Orthopnea, No Edema, No Palpitations Respiratory : Complaining of dry Cough, No Sputum, No Wheezing, No Smoke Exposure, No Dyspnea Gastrointestinal : No Nausea, No Vomiting, No Diarrhea, No Constipation, No abdominal Pain, No Hematochezia, No Melena Genitourinary : no irregular bleeding, No Dysuria, No Urinary Frequency, No Hematuria, No Urinary Incontinence, No Urgency, No Flank Pain, No Urinary Flow Changes, No Hesitancy Musculoskeletal : No joint pain, No Myalgias, No Joint Swelling Skin : No Skin Lesions, No rash Neuro : No Weakness, No Numbness, No Paresthesias, No Loss of Consciousness, No Dizziness, No Headache Psych : No Anxiety/Panic, No Depression, No SI/HI/AH/VH, No Social Issues, Heme/Lymph: No Bruising, No Bleeding,No Lymphadenopathy Endocrine : No Polyuria, No Polydipsia, No Temperature Intolerance PMFSH Past Medical History Medical History Anxiety Aortic stenosis CAD (coronary artery disease) Cardiomyopathy Carotid artery stenosis CKD stage 3 due to type 2 diabetes mellitus Colon cancer screening Compression fracture of L1 lumbar vertebra Congestive heart failure Diabetes type 2, controlled Diabetic 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 diabetes mellitus Diabetic polyneuropathy associated with type 2 diabetes mellitus Diabetic retinopathy associated with type 2 diabetes mellitus DM2 (diabetes mellitus, type 2) Dyslipidemia GERD (gastroesophageal reflux disease) Glaucoma History of renal calculi Hypertension Iliac artery stenosis, bilateral Infective endocarditis Left carotid stenosis 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 Overweight (BMI 25.0-29.9) Positive TB test Pulmonary nodule PVD (peripheral vascular disease) Tobacco abuse Surgical History Hx of appendectomy Hx of arthroscopy of right knee Hx of cataract removal with insertion of prosthetic lens Hx of coronary artery bypass graft Hx of shoulder surgery Hx of tonsillectomy Family History Family History Father Stomach cancer Mother Diabetes Social History Social History Housing: Apartment Alcohol intake: never Patient Tobacco Use Status: Current everyday Tobacco user Tobacco use type: Cigarette Cigarette Packs Per Day: 0.25 Cigarettes Per Day: 3 e-Cigarette/Vaping Use: Never Used Second Hand Smoke Exposure: Yes Advance Directives: Yes Advance Directives on File: Yes Advance Directives Date on File: 06/08/21 service: No Current occupational status: 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 Cognitive needs: No Hearing needs: No Vision needs: No Physical Exam ED Vital Signs: Vital Signs - 24 hr 10/16/21 08:57 Temperature 96.0 F L Pulse Rate 69 Respiratory Rate 18 Blood Pressure 143/65 H Pulse Oximetry 95 Oxygen Delivery Method Room Air BMI result Body Mass Index 31.3 Const Other: Appearance: Alert. Oriented X3. No acute distress. Eyes: Pupils equal, round and reactive to light. ENT: Pharynx normal. Neck: Normal inspection. Neck supple. No lymph nodes noted. No crepitus CVS: Normal heart rate and rhythm. Pulses normal. Normal S1 and S2 Respiratory: No respiratory distress. Breath sounds normal. No Wheezing. No rales Abdomen: Soft and nontender. No rigidity. No distention. Skin: Skin warm and dry. Normal skin color. Normal skin turgor. Extremities: No lower extremity edema. No Lacerations. No Rash Neuro: Oriented X 3. No motor deficit. No sensory deficit. Moving all extremities. No slurred speech. CN 2 through 12 grossly intact Psych: calm, cooperative, normal affect Course Course Course Narrative: I discussed with the patient that he tested negative for COVID. No acute findings on chest x-ray. Patient may have emphysematous lung disease. Patient has never been diagnosed with COPD, however he is a smoker. Discussed with the patient that he needs to follow up with his primary care physician, may need pulmonary function test. It is likely that patient has COPD. Will go ahead and treat him with antibiotics and prednisone Medical Decision Making Lab Data Labs: Lab Results 10/16/21 Range/Units 08:55 COVID-19 ([facility]) Negative (Negative) COVID-19 Clin Com See Note Imaging Data Chest x-ray: Radiologist's impression: FINDINGS: The emphysematous lungs are well expanded. There appears to be chronic thickening of the bronchial perez. No acute findings in the lungs compared to 06/07/2021. No focal consolidation or pleural effusion. Cardiac silhouette has normal size and contour, status post coronary artery bypass graft surgery. The sternotomy wires are intact. Skeletal findings include chronic osteoarthritis of glenohumeral joints. XR/XR chest 1V IMPRESSION: *? No radiographic evidence of pneumonia. *? The bronchial perez appear to be chronically thickened in this patient with emphysematous lung disease. Query if there is history of chronic obstructive pulmonary disease. ? Discharge Plan Discharge Clinical Impression: Bronchitis Patient Disposition: Home, Self-Care Instructions: Acute Bronchitis (ED) Additional Instructions: Your chest x-ray shows changes that may suggest that you have COPD. Please follow-up with your primary care physician as you may need pulmonary function tests today diagnosed COPD/emphysema. Please follow-up with your primary care physician tomorrow. If you have any worsening or new symptoms, please return to the emergency room or call 911 Prescriptions: New azithromycin [Zithromax Z-Roland] 250 mg tablet 250 mg PO DAILY 5 Days Qty: 5 0RF prednisone 50 mg tablet 50 mg PO DAILY Qty: 5 0RF No Action (DME) 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 meter [FreeStyle [place] Lite] Kit See Rx Instructions .ROUTE .MEDSUPPLY Qty: 1 0RF Rx Instructions: As directed aspirin 81 mg tablet,delayed release (DR/EC) 81 mg PO DAILY Qty: 90 3RF (DME) 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 meter [OneTouch Verio IQ Meter] Kit See Rx Instructions .Route Qty: 1 0RF Rx Instructions: As directed 3x/day (DME) OneTouch Verio test strips Strip See Rx Instructions .ROUTE .MEDSUPPLY Qty: 100 11RF Rx Instructions: Three times a day (DME) lancets [OneTouch Delica Plus Lancet] 33 gauge misc See Rx Instructions .Route Qty: 100 11RF Rx Instructions: As directed 3x/day benzonatate 200 mg capsule 200 mg PO BID-TID PRN (Reason: cough) Qty: 30 0RF Paxlovid (EUA) 150 mg x 2- 100 mg tablet See Rx Instructions PO .COMPLEX Qty: 30 0RF Rx Instructions: take TWO 150 mg tablets of nirmatrelvir with ONE 100 mg tablet of ritonavir twice daily for 5 days PO amlodipine 10 mg tablet 10 mg PO DAILY Qty: 90 1RF gabapentin 300 mg capsule 300 mg PO BEDTIME Qty: 90 2RF metoprolol succinate 25 mg tablet extended release 24 hr 25 mg PO DAILY Qty: 90 1RF albuterol sulfate [ProAir HFA] 90 mcg/actuation HFA aerosol inhaler 2 puff inhalation Q4-6H PRN (Reason: Wheezing) Qty: 8.5 0RF hydrocodone-acetaminophen 5-325 mg tablet 1 tab PO Q4-6H PRN (Reason: pain) Qty: 5 0RF Rx Instructions: Partial Fill upon patient request. acetaminophen [Tylenol Extra Strength] 500 mg tablet 500 mg PO Q6H PRN (Reason: pain or fever) Qty: 20 0RF clopidogrel [Plavix] 75 mg tablet 75 mg PO DAILY Qty: 90 1RF hydrocortisone 2.5 % ointment 1 appl topical QD-TID PRN (Reason: skin irritation) Qty: 454 2RF dorzolamide-timolol 22.3-6.8 mg/mL drops 1 drp ophthalmic (eye) BID Tremfya 100 mg/mL auto-injector subcut multivitamin Tablet 1 tab PO DAILY ascorbic acid (vitamin C) 500 mg Tablet 500 mg PO DAILY cholecalciferol (vitamin D3) 25 mcg (1,000 unit) Tablet 25 mcg PO DAILY losartan 25 mg tablet 25 mg PO DAILY 90 Days Qty: 90 1RF (DME) FreeStyle Lite Strips Strip See Rx Instructions Not Applicable BID Qty: 300 3RF Rx Instructions: 3 times a day (DME) pen needle, diabetic [BD Martina 2nd Gen Pen Needle] 32 gauge x 5/32 needle See Rx Instructions .MEDSUPPLY Qty: 400 4RF Rx Instructions: 5 times a day (DME) lancets 28 gauge misc See Rx Instructions Not Applicable BID Qty: 300 3RF Rx Instructions: 3 times a day (DME) FreeStyle Lite Strips Strip See Rx Instructions .ROUTE .MEDSUPPLY Qty: 150 11RF Rx Instructions: As directed four times a day Trulicity 1.5 mg/0.5 mL pen injector 1.5 mg subcut QWEEK insulin degludec 100 unit/mL (3 mL) insulin pen 18 unit subcut DAILY 90 Days Qty: 16.2 2RF insulin lispro [Humalog KwikPen Insulin] 100 unit/mL insulin pen 5 - 9 unit subcut TID 90 Days Qty: 15 2RF Rx Instructions: before meals as directed (DME) 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 meter [BookMyShowuch Verio Reflect Meter] Misc See Rx Instructions .ROUTE .MEDSUPPLY Qty: 1 Rx Instructions: As directed
== END 2021-10-16 10:10 | disposition home or self-care (01) ==
PROVIDERS: Emergency Provider Emergency Medicine; PCP Internal Medicine
DX: J40 Bronchitis, not specified as acute or chronic (principal); Z20.822 Contact with and (suspected) exposure to COVID-19; E11.22 Type 2 diabetes mellitus with diabetic chronic kidney disease; I13.0 Hypertensive heart and chronic kidney disease with heart failure and stage 1 through stage 4 chronic kidney disease, or unspecified chronic kidney disease; N18.30 Chronic kidney disease, stage 3 unspecified; I50.9 Heart failure, unspecified; E78.5 Hyperlipidemia, unspecified; E66.3 Overweight; Z68.31 Body mass index [BMI] 31.0-31.9, adult; Z79.4 Long term (current) use of insulin; Z87.891 Personal history of nicotine dependence; Z79.82 Long term (current) use of aspirin; Z79.899 Other long term (current) drug therapy
CPT/HCPCS: 71045; 87635; 99282; 99283

== ENCOUNTER → 2021-12-10 09:52 | Outpatient (BNVA) | payer MEDICARE, SELFPAY | PROVIDERS: PCP Internal Medicine; Referring Provider Internal Medicine; Visit Provider Internal Medicine Cardiovascular Disease | DX: I25.10 Atherosclerotic heart disease of native coronary artery without angina pectoris (principal); I35.0 Nonrheumatic aortic (valve) stenosis; Z79.82 Long term (current) use of aspirin; Z79.899 Other long term (current) drug therapy | CPT/HCPCS: 93005; 99212 ==

== ENCOUNTER → 2021-12-25 07:20 | Outpatient (REF) | payer MEDICARE, SELFPAY ==
--- NOTE | 2021-12-25 07:23 | CA_ITS ---
Transthoracic Echocardiogram Patient (Last, First, Middle): Deyanira Vitale, Gender: Male Date of : 1945 Age: 76 Procedure Date: 12/25/2021 Procedure Type: Transthoracic Echocardiogram Location: [facility] Height: 170.18 cm Weight: 90.72 kg BSA: 2.02 m2 Heart Rate: bpm BP: 135 / 65 mmHg Verifying Machine Operator: TO/CP Referring MD: Emile Bridges MD Call Or Contact Centre Manager: Emile Bridges MD Symptoms: I35.0 - Nonrheumatic aortic (valve) stenosis Study Quality: Technically Difficult/Contrast ECG Rhythm: Sinus Conclusions: - 1. Normal LV systolic function with impaired relaxation filling pattern 2. Moderate aortic stenosis 3. Normal RV systolic pressure 4. No gross pericardial effusion Findings Procedure Information Contrast agent, definity, is being given per protocol without apparent complications. The quality of the study was technically difficult. Left Ventricle Normal left ventricular size, thickness, and systolic function. The visually estimated ejection fraction is between 60-65%. Spectral Doppler is indicative of an impaired relaxation filling pattern. E/E prime ratio is between 8 and 15 consistent with indeterminate filling pressures. Right Ventricle Normal right ventricular cavity size and systolic function. Aortic Valve There is moderate calcification of the aortic valve. There is moderate thickening of the aortic valve. There is moderate aortic valve stenosis. The mean gradient is 20 mmHg. The aortic valve area is 1.32 cm2. There is mild aortic valve regurgitation. Mitral Valve There is mild anterior and posterior mitral leaflet thickening. There is mild mitral annular calcification. There is trace mitral valve regurgitation. There is no mitral valve stenosis. Pulmonic Valve The pulmonic valve was not well visualized. Tricuspid Valve Likely normal tricuspid valve structure and function. The right ventricular systolic pressure is normal. The right ventricular systolic pressure is 21 mmHg. There is no evidence of pulmonary hypertension. Great Vessels The aorta was not well visualized. The pulmonary artery was not well visualized. Venous The inferior vena cava is normal in size. Pericardium/Pleural There is no evidence of pericardial effusion. Prior Study Comparison No significant change compared to prior study dated: 05/07/2021. Measurements 2D Linear Measurements IVSd: 1.01 0.6-0.9/0.6-1.0 cm LVIDd: 4.49 3.9-5.3/4.2-5.9 cm LVIDd Index: 2.22 2.4-3.2/2.2-3.1 cm/m2 LVIDs: 2.66 2.0-3.6 cm LVPWd: 1.00 0.7-1.1 cm LA Diam: 4.50 2.7-3.8/3.0-4.0 cm LAIDs Index: 2.23 1.5-2.3 cm/m2 LV Mass: 191.47 67-162/88-224 g LV Mass Index: 94.79 43-95/49-115 g/m2 LVOT Diam: 2.10 3.0+(-)1.3 cm 2D Systolic Function EF 4C: 68.70 >55% EF 2C: 68.20 >55% EF BiP: 69.30 >55% Mitral Valve MV Pk E: 1.03 MV PK A: 1.19 MV Decel Time: 280.00 E/A: 0.90 E'Lateral: 5.22 E'Medial: 3.37 E/E' Med: 30.60 E/E' Lat: 19.70 PHT: 82.00 MVA PHT: 2.68 Decel Stephens: 3.69 Aortic Valve AoV Pk Ever[place]: 3.00 AoV Mn Ever[place]: 2.12 AoV VTI: 0.72 AoV Pk Grad: 36.00 Aov Mn Grad: 20.00 SCOTT Cont.VTI: 1.32 LVOT LVOT Pk [place]: 1.00 LVOT Mn [place]: 0.59 LVOT VTI: 0.28 LVOT Pk Grad: 4.00 LVOT Mn Grad: 2.00 LVOT Diam: 2.10 LVOT Area: 3.46 Diastolic Function MV Pk E: 1.03 MV Pk A: 1.19 E/A: 0.90 E'Medial: 3.37 E/E' Med: 30.60 E' Laterial: 5.22 E/E' Lat: 19.70 Right Ventricle TAPSE (mm): 19.30 TVS' Ever[place]: 9.25 Tricuspid Valve TR Pk [place]: 2.15 TR Pk Grad: 18.00 RA Press: 3.00 RVSP: 21.00 Great Vessels Aorta Sinus of Valsalva: 3.42 2.0-3.5 cm Ao Asc: 3.00 2.1-3.4 cm Updated in Other Vendor System with Status of Final Emile Yuliana MD electronically signed on 12/25/2021 7:03:15 PM with status of Final
== END ==
LOC: HO.CARD 07:20
PROVIDERS: Visit Provider Internal Medicine Cardiovascular Disease
DX: I35.0 Nonrheumatic aortic (valve) stenosis (principal)
CPT/HCPCS: 93306; Q9957

== ENCOUNTER → 2022-01-01 08:09 | Outpatient (REF) | payer MEDICARE, SELFPAY ==
--- NOTE | ~2022-01-01 | NM_ITS ---
Myocardial perfusion study Indication: CAD to evaluate for myocardial ischemia Technique: The patient was brought in for a Lexiscan perfusion study on 01/01/2022. Patient performed low-level exercise and was injected 0.4 mg of Lexiscan intravenously. Within a minute of injection, 30 mCi of sestamibi was given intravenously. Images were obtained using the SPECT gamma camera interlaced with the gating device. Images were obtained in supine position. Resting perfusion study was performed on 01/02/2022. Patient was administered 30 mCi of sestamibi intravenously at rest. Images were then obtained in supine position. Images obtained with and without CT attenuation. Total DLP 125 mGy-cm. Images were processed with the software and compared side to side in short axis, horizontal long axis and vertical long axis views. Findings: The stress perfusion study showed non attenuated images show severely reduced uptake in the distal septum, anteroseptal as well as moderately reduced uptake in the inferoseptal wall of the LV myocardium. Is also severely reduced uptake in the inferoapical and mildly reduced uptake in basal and mid inferior wall of the LV myocardium. Is also absent uptake in the apex of the LV myocardium. Attenuation corrected images show absent uptake in the inferoapical wall of the LV myocardium along with apex and the distal septum of the LV myocardium with mildly reduced uptake in the septum of the LV myocardium.. The gated study shows low normal LV systolic function with calculated LVEF of 51%. LV cavity is normal in size. The gated study shows reduced wall thickening and contraction of septum and inferoapical segments. Resting study shows both non attenuated attenuated corrected images show some improvement in the uptake in the septum of the LV myocardium as well as mostly severely reduced uptake in the apex and inferoapical as well as absent uptake in the distal septum of the LV myocardium.. Gating at rest reveals septal and inferoapical wall motion abnormality with ejection fraction at 47%. 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 NM/NM lan perf SPECT rest & str Impression: 1. Myocardial perfusion imaging study shows nontransmural infarct of the distal septum, apex and inferoapical wall 2. Gated LVEF is 51% 3. Transient ischemic dilatation not present EKG is nondiagnostic for ischemia
--- NOTE | 2022-01-01 08:12 | CA_ITS ---
Acquisition Time: 2022-01-01 08:28:57 Total Exercise Time: 00:02:00 Test Indications: Screening for CAD AORTIC STENOSI Medications: SEE H Protocol: LEXISCAN Max HR: 091 BPM 63% of Pred: 143 BPM Max BP: 144/068 mmHG Max Work Load: 1.0 METS Pharmacological stress test with Lexiscan injection, while sitting and kicking his legs, without anginal symptoms, with isolated PACs, with normotensive response to injection, with nondiagnostic EKG for ischemia. In recovery he reported nausea that was treated with Aminophylline 75mg IVP to reverse Lexiscan with resolution of symptom. Nuclear images pending. Test reviewed with Dr Lombardo. Referred By: Emile Bridges Overread By: GEETA DOMINGUEZ
== END ==
LOC: HO.CARD 08:09
PROVIDERS: Visit Provider Internal Medicine Cardiovascular Disease
DX: I25.10 Atherosclerotic heart disease of native coronary artery without angina pectoris (principal)
CPT/HCPCS: 78452; 93017; A9500; J0280; J2785

== ENCOUNTER 2022-02-28 07:59 | Outpatient (REF) | payer MEDICARE, SELFPAY ==
[2022-02-28 09:55] LABS: Cholesterol 101 mg/dL; HDL Cholesterol 33 mg/dL; LDL Cholesterol Calculated 49 mg/dl; Triglycerides 98 mg/dL
== END 2022-02-28 08:00 | disposition home or self-care (01) ==
LOC: HO.LAB 07:59
PROVIDERS: PCP Internal Medicine; Visit Provider Internal Medicine Cardiovascular Disease
DX: I25.10 Atherosclerotic heart disease of native coronary artery without angina pectoris (principal)
CPT/HCPCS: 36415; 80061

== ENCOUNTER → 2022-03-06 13:56 | Outpatient (BNVA) | payer MEDICARE, SELFPAY | PROVIDERS: PCP Internal Medicine; Visit Provider Internal Medicine Cardiovascular Disease | DX: I25.10 Atherosclerotic heart disease of native coronary artery without angina pectoris (principal); I35.0 Nonrheumatic aortic (valve) stenosis | CPT/HCPCS: 99212 ==

== ENCOUNTER → 2022-03-07 12:38 | Outpatient (BNVA) | payer MEDICARE, SELFPAY | PROVIDERS: PCP Internal Medicine; Visit Provider Surgery | DX: L72.0 Epidermal cyst (principal) | CPT/HCPCS: 99202 ==

== ENCOUNTER 2022-03-09 13:16 | Emergency (ER) | payer MEDICARE, SELFPAY ==
[2022-03-09 13:37] VITALS: BP 147/47; PULSE 69; RESP 18; TEMP 36.7; O2SAT 96; BMI 29.9
--- NOTE | 2022-03-09 13:37 | ED_ITS ---
HPI - URI/Sore Throat General Chief Complaint: General Medical <KENNEDY Calero - Last Filed: 03/09/22 13:39> Stated Complaint: weak, body aches <KENNEDY Calero - Last Filed: 03/09/22 13:39> Time Seen by Provider: 03/09/22 13:47 <KENNEDY Calero - Last Filed: 03/09/22 13:39> Source: patient and family <KENNEDY Jackson - Last Filed: 03/09/22 14:59> Mode of arrival: ambulatory <KENNEDY Jackson - Last Filed: 03/09/22 14:59> Limitations: no limitations <KENNEDY Jackson - Last Filed: 03/09/22 14:59> History of Present Illness HPI Narrative: 76-year-old male with history of CKD, DM 2 with polyneuropathy and retinopathy, cardiomyopathy, anxiety, GERD, CHF, aortic stenosis who presents to the ER for evaluation of body aches and sore throat for the last 3 days. He presents to the ER with his who has similar symptoms. His grandson at home was recently diagnosed with the flu. He reports fatigue and muscle aches and just wanting to sleep. He denies any chest pain, SOB or difficulty breathing. His is here with similar symptoms. He states he has been eating and drinking normally. <KENNEDY Jackson - Last Filed: 03/09/22 14:59> MD elicited complaint: sore throat and other ( Body aches) <KENNEDY Jackson - Last Filed: 03/09/22 14:59> Onset (ago): day(s) <KENNEDY Jackson - Last Filed: 03/09/22 14:59> Consistency: progressively worsening <KENNEDY Jackson - Last Filed: 03/09/22 1 4:59> Able to tolerate fluids by mouth: Yes <KENNEDY Jackson Last Filed: 03/09/22 14:59> Exacerbating factors: exertion <KENNEDY Jackson - Last Filed: 03/09/22 14:59> Relieving factors: rest <KENNEDY Jackson - Last Filed: 03/09/22 14:59> Context: sick contacts <KENNEDY Jackson - Last Filed: 03/09/22 14:59> Associated symptoms: chills, myalgias, headache and nasal congestion <KENNEDY Jackson - Last Filed: 03/09/22 14:59> Treatments prior to arrival: none <KENNEDY Jackson - Last Filed: 03/09/22 14:59> Related Data Home Medications: Home Medications Medication Instructions Recorded Confirmed 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 meter (OneTouch #1 ea 03/06/21 03/07/22 Verio Reflect Meter) ascorbic acid (vitamin C) 500 mg 500 mg PO DAILY 06/07/21 03/07/22 tablet cholecalciferol (vitamin D3) 25 25 mcg PO DAILY 06/07/21 03/07/22 mcg (1,000 unit) tablet dorzolamide 22.3 mg-timolol 6.8 1 drp ophthalmic (eye) BID 06/07/21 03/07/22 mg/mL eye drops guselkumab 100 mg/mL subcutaneous mg subcut 06/07/21 03/07/22 auto-injector (Tremfya) multivitamin 1 tab PO DAILY 06/07/21 03/07/22 Previous Rx's Medication Instructions Recorded 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 meter (FreeStyle #1 ea 02/29/20 [place] Lite kit) lancets 28 gauge #300 ea 07/12/20 FreeStyle Lite Strips (blood sugar #300 ea 08/01/20 diagnostic) aspirin 81 mg tablet,delayed 81 mg PO DAILY #90 tabs 11/16/20 release acetaminophen 500 mg tablet 500 mg PO Q6H PRN pain or fever 01/30/21 (Tylenol Extra Strength) #20 tabs blood sugar diagnostic (FreeStyle #150 ea 02/23/21 Lite Strips) blood sugar diagnostic (OneTouch #100 ea 02/23/21 Verio test strips) 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 meter (OneTouch #1 ea 02/23/21 Verio IQ Meter kit) lancets 33 gauge (OneTouch Delica #100 ea 02/23/21 Plus Lancet) benzonatate 200 mg capsule 200 mg PO BID-TID PRN cough #30 06/09/21 caps gabapentin 300 mg capsule 300 mg PO BEDTIME #90 caps 07/24/21 hydrocodone 5 mg-acetaminophen 325 1 tab PO Q4-6H PRN pain #5 tabs 09/17/21 mg tablet pen needle, diabetic 32 gauge x #400 ea 10/19/21 (BD Martina 2nd Gen Pen Needle) rosuvastatin 40 mg tablet 40 mg PO DAILY #30 tabs 12/10/21 dulaglutide 1.5 mg/0.5 mL 1.5 mg (0.5 mL) subcut QWEEK #2 mL 01/08/22 subcutaneous pen injector (Trulicity) insulin degludec 100 unit/mL (3 18 unit (0.18 mL) subcut DAILY 90 01/08/22 mL) subcutaneous pen days #16.2 mL insulin lispro 100 unit/mL 5 - 9 unit (0.05 - 0.09 mL) subcut 01/08/22 subcutaneous pen (Humalog KwikPen TID 90 days #15 mL (U-100) Insulin) amlodipine 10 mg tablet 10 mg PO DAILY #90 tabs 01/22/22 losartan 25 mg tablet 25 mg PO DAILY 90 days #90 tabs 02/26/22 metoprolol succinate 25 mg 25 mg PO DAILY #90 tabs 02/26/22 tablet,extended release 24 hr oseltamivir 75 mg capsule (Tamiflu) 75 mg PO Q12H 5 days #10 caps 03/09/22 <KENNEDY Calero - Last Filed: 03/09/22 13:39> Allergies/Adverse Reactions: Allergies Allergy/AdvReac Type Severity Reaction Status Date / Time No Known Allergies Allergy Mild NONE Verified 03/09/22 13:36 <KENNEDY Calero - Last Filed: 03/09/22 13:39> Review of Systems Review of Systems: Constitutional: No Fever, + Chills, +Fatigue, ENT/Mouth: + sore throat, No Rhinorrhea Cardiovascular: No Chest Pain, No SOB Respiratory: No Cough, No Sputum, No Wheezing, No dyspnea Gastrointestinal: No Nausea, No Vomiting, No Diarrhea, No abdominal Pain Genitourinary: No Dysuria, No Urinary Frequency, No Hematuria Musculoskeletal:+ joint pain, + Myalgias Skin: No Skin Lesions, No rash Neuro: No Weakness, No Numbness, No Dizziness, + Headache Psych: No Anxiety/Panic, No Depression Heme/Lymph: No Bruising, No Lymphadenopathy <KENNEDY Jackson - Last Filed: 03/09/22 14:59> [facility] Past Medical History Medical History: Medical History Anxiety Aortic stenosis CAD (coronary artery disease) Cardiomyopathy Carotid artery stenosis CKD stage 3 due to type 2 diabetes mellitus Colon cancer screening Compression fracture of L1 lumbar vertebra Congestive heart failure Diabetes type 2, controlled Diabetic 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 diabetes mellitus Diabetic polyneuropathy associated with type 2 diabetes mellitus Diabetic retinopathy associated with type 2 diabetes mellitus DM2 (diabetes mellitus, type 2) Dyslipidemia Epidermoid cyst of skin of cheek GERD (gastroesophageal reflux disease) Glaucoma History of renal calculi Hypertension Iliac artery stenosis, bilateral Infective endocarditis Left carotid stenosis senior living (current) use of insulin Overweight (BMI 25.0-29.9) Positive TB test Pulmonary nodule PVD (peripheral vascular disease) Tobacco abuse <KENNEDY Calero - Last Filed: 03/09/22 13:39> Surgical History: Surgical History Hx of appendectomy Hx of arthroscopy of right knee Hx of cataract removal with insertion of prosthetic lens Hx of coronary artery bypass graft Hx of shoulder surgery Hx of tonsillectomy <KENNEDY Calero - Last Filed: 03/09/22 13:39> Family History Family History: Family History Father Stomach cancer Mother Diabetes Brother Prostate abscess <KENNEDY Calero - Last Filed: 03/09/22 13:39> Social History Social History: Social History Housing: Apartment Alcohol intake: never Patient Tobacco Use Status: Current everyday Tobacco user Tobacco use type: Cigarette Cigarette Packs Per Day: 0.25 Cigarettes Per Day: 3 e-Cigarette/Vaping Use: Never Used Second Hand Smoke Exposure: Yes Advance Directives: No Advance Directives Information Provided: No Advance Directives Date on File: 06/08/21 service: No Current occupational status: 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 Cognitive needs: No Hearing needs: No Vision needs: No <KENNEDY Calero - Last Filed: 03/09/22 13:39> Physical Exam Vital Signs: Vital Signs: Last Vital Signs Temp 98.0 F 03/09/22 13:37 Pulse 69 03/09/22 13:37 Resp 18 03/09/22 13:37 BP 147/47 H 03/09/22 13:37 Pulse Ox 96 03/09/22 13:37 O2 Del Method 03/09/22 13:37 BMI result Body Mass Index 29.9 <KENNEDY Calero - Last Filed: 03/09/22 13:39> Vital Signs: Last Vital Signs Temp 98.0 F 03/09/22 13:37 Pulse 69 03/09/22 13:37 Resp 18 03/09/22 13:37 BP 147/47 H 03/09/22 13:37 Pulse Ox 96 03/09/22 13:37 O2 Del Method 03/09/22 13:37 BMI result Body Mass Index 29.9 <KENNEDY Jackson - Last Filed: 03/09/22 14:59> Appearance: Alert. Oriented X3. No acute distress. Eyes: Pupils equal, round and reactive to light. ENT: Pharynx normal. Neck: Normal inspection. Neck supple. CVS: Normal heart rate and rhythm. Pulses normal. Respiratory: No respiratory distress. Breath sounds normal. Abdomen: Soft and nontender. +BS x4 Skin: Skin warm and dry. Normal skin color. Normal skin turgor. No rashes. Extremities: No lower extremity edema. Nontender Neuro: Oriented X 3. No motor deficit. No sensory deficit. <KENNEDY Jackson - Last Filed: 03/09/22 14:59> Course Course Course Narrative: [id number] - 76yoM who is [place] Speaking presenting to the ED with flu-like symptoms. He is presenting to the ER with his that has similar symptoms. The grandchild just tested positive for influenza. He reports for the past 2 days he has had generalized body aches/fatigue/malaise with a sore throat. Denies any other symptoms related to this such as measured fevers, dizziness, headaches, neck pain/stiffness, nasal congestion/rhinorrhea, trouble swallowing or breathing, cough, sputum production, nausea/vomiting/diarrhea abdominal pain, rashes or any other symptoms complaints or concerns at this time. Plan: Will order COVID/influenza and strep swab. Patient stable he will be sent back to the waiting room to be evaluated in [facility] [place]. <KENNEDY Calero - Last Filed: 03/09/22 13:39> Reevaluation(s) Reevaluation #1: patient vital signs remained stable. He tested positive for influenza A. Will start him on Tamiflu per request. His has already been given a prescription for this. We discussed symptomatic management of his symptoms as well as concerning signs or symptoms that should prompt urgent evaluation in the ER. Comfortable discharge home. He is tolerating p.o. and appears well at this time. <KENNEDY Jackson - Last Filed: 03/09/22 14:59> Medications Administered Discontinued Medications Generic Name Dose Route Start Last Admin Trade Name Freq PRN Reason Stop Dose Admin Acetaminophen 975 mg 03/09/22 14:03 03/09/22 14:13 Acetaminophen 325 Mg Tablet PO 03/09/22 14:04 975 mg ONCE ONE Administration <KENNEDY Calero - Last Filed: 03/09/22 13:39> Medications Administered Discontinued Medications Generic Name Dose Route Start Last Admin Trade Name Freq PRN Reason Stop Dose Admin Acetaminophen 975 mg 03/09/22 14:03 03/09/22 14:13 Acetaminophen 325 Mg Tablet PO 03/09/22 14:04 975 mg ONCE ONE Administration <KENNEDY Jackosn - Last Filed: 03/09/22 14:59> Medical Decision Making Lab Data Labs: Lab Results 03/09/22 03/09/22 03/09/22 Range/Units 13:49 13:49 13:49 COVID-19 ([facility]) Negative (Negative) COVID-19 Clin Com See Note Influenza Type A ([place]) Positive A (Negative) Influenza Type B ([place]) Negative (Negative) Influenza A & B Note See Note S. pyogenes GrpA [place] Negative (Negative) <KENNEDY Calero - Last Filed: 03/09/22 13:39> Lab Results 03/09/22 03/09/22 03/09/22 Range/Units 13:49 13:49 13:49 COVID-19 ([facility]) Negative (Negative) COVID-19 Clin Com See Note Influenza Type A ([place]) Positive A (Negative) Influenza Type B ([place]) Negative (Negative) Influenza A & B Note See Note S. pyogenes GrpA [place] Negative (Negative) <KENNEDY Jackson - Last Filed: 03/09/22 14:59> Discharge Plan Discharge Clinical Impression: Influenza A <KENNEDY Calero - Last Filed: 03/09/22 13:39> Patient Disposition: Home, Self-Care <KENNEDY Calero - Last Filed: 03/09/22 13:39> Instructions: Influenza (ED) <KENNEDY Calero Last Filed: 03/09/22 13:39> Additional Instructions: Se encontr? que usted es Influenza A POSITIVO hoy. Thomas radiograf?a de t?rax y los niveles de ox?stevo fueron normales. [place]. Beber mucho l?quido. Contin?e tomando el Tamiflu recetado anteriormente. Si le causa malestar estomacal o n?useas, puede dejar de tomarlo. [place] medicamentos de venta marisa para el resfriado o la gripe seg?n sea nece sario para boyd s?ntomas. [place] Tylenol y/o Motrin seg?n sea necesario para la fiebre y los darlin corporales. [place] un seguimiento con thomas m?dico esta semana. Si thomas dificultad para respirar empeora, si desarrolla dificultad para respirar o cualquier otro s?ntoma preocupante, regrese a la brian de emergencias para aleta evaluaci?n adicional. <KENNEDY Calero - Last Filed: 03/09/22 13:39> Prescriptions: New oseltamivir [Tamiflu] 75 mg capsule 75 mg PO Q12H 5 Days Qty: 10 0RF No Action (DME) 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 meter [FreeStyle [place] Lite] Kit See Rx Instructions .ROUTE .MEDSUPPLY Qty: 1 0RF Rx Instructions: As directed aspirin 81 mg tablet,delayed release (DR/EC) 81 mg PO DAILY Qty: 90 3RF (DME) 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 meter [OneTouch Verio IQ Meter] Kit See Rx Instructions .Route Qty: 1 0RF Rx Instructions: As directed 3x/day (DME) OneTouch Verio test strips Strip See Rx Instructions .ROUTE .MEDSUPPLY Qty: 100 11RF Rx Instructions: Three times a day (DME) lancets [OneTouch Delica Plus Lancet] 33 gauge misc See Rx Instructions .Route Qty: 100 11RF Rx Instructions: As directed 3x/day benzonatate 200 mg capsule 200 mg PO BID-TID PRN (Reason: cough) Qty: 30 0RF gabapentin 300 mg capsule 300 mg PO BEDTIME Qty: 90 2RF (DME) pen needle, diabetic [BD Martina 2nd Gen Pen Needle] 32 gauge x needle See Rx Instructions .MEDSUPPLY Qty: 400 4RF Rx Instructions: 5 times a day amlodipine 10 mg tablet 10 mg PO DAILY Qty: 90 0RF losartan 25 mg tablet 25 mg PO DAILY 90 Days Qty: 90 1RF metoprolol succinate 25 mg tablet extended release 24 hr 25 mg PO DAILY Qty: 90 1RF hydrocodone-acetaminophen 5-325 mg tablet 1 tab PO Q4-6H PRN (Reason: pain) Qty: 5 0RF Rx Instructions: Partial Fill upon patient request. acetaminophen [Tylenol Extra Strength] 500 mg tablet 500 mg PO Q6H PRN (Reason: pain or fever) Qty: 20 0RF dorzolamide-timolol 22.3-6.8 mg/mL drops 1 drp ophthalmic (eye) BID Tremfya 100 mg/mL auto-injector subcut multivitamin Tablet 1 tab PO DAILY ascorbic acid (vitamin C) 500 mg Tablet 500 mg PO DAILY cholecalciferol (vitamin D3) 25 mcg (1,000 unit) Tablet 25 mcg PO DAILY insulin degludec 100 unit/mL (3 mL) insulin pen 18 unit subcut DAILY 90 Days Qty: 16.2 2RF insulin lispro [Humalog KwikPen Insulin] 100 unit/mL insulin pen 5 - 9 unit subcut TID 90 Days Qty: 15 2RF Rx Instructions: before meals as directed Trulicity 1.5 mg/0.5 mL pen injector 1.5 mg subcut QWEEK Qty: 2 11RF (DME) FreeStyle Lite Strips Strip See Rx Instructions Not Applicable BID Qty: 300 3RF Rx Instructions: 3 times a day rosuvastatin 40 mg tablet 40 mg PO DAILY Qty: 30 5RF (DME) lancets 28 gauge misc See Rx Instructions Not Applicable BID Qty: 300 3RF Rx Instructions: 3 times a day (DME) FreeStyle Lite Strips Strip See Rx Instructions .ROUTE .MEDSUPPLY Qty: 150 11RF Rx Instructions: As directed four times a day (DME) 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 meter [OneTouch Verio Reflect Meter] Misc See Rx Instructions .ROUTE .MEDSUPPLY Qty: 1 Rx Instructions: As directed <KENNEDY Calero - Last Filed: 03/09/22 13:39> Referrals: Marcia Clements MD [Primary Care Provider] - <KENNEDY Calero - Last Filed: 03/09/22 13:39> Interventions: ED Discharge Assessment Last Done: 03/09/22 14:50 <KENNEDY Calero - Last Filed: 03/09/22 13:39> Discharge Date/Time: 03/09/22 14:51 <KENNEDY Calero - Last Filed: 03/09/22 13:39> Print Language: Mozambican <KENNEDY Calero - Last Filed: 03/09/22 13:39>
[2022-03-09 14:10] LABS: Strep A Nucleic Acid Negative (Negative)
[2022-03-09 14:11] LABS: COVID-19 Test Negative (Negative); IDNOW Serial# 55D5AD1C
[2022-03-09] MEDS: Acetaminophen 325 MG TABLET 975 MG PO (14:13)
[2022-03-09 14:24] LABS: Influenza A Positive (Negative); Influenza B2 Negative (Negative)
== END 2022-03-09 14:51 | disposition home or self-care (01) ==
PROVIDERS: Physician Assistant Medical; Emergency Provider Emergency Medicine; PCP Internal Medicine
DX: J11.1 Influenza due to unidentified influenza virus with other respiratory manifestations (principal); Z20.822 Contact with and (suspected) exposure to COVID-19; E11.22 Type 2 diabetes mellitus with diabetic chronic kidney disease; I13.0 Hypertensive heart and chronic kidney disease with heart failure and stage 1 through stage 4 chronic kidney disease, or unspecified chronic kidney disease; N18.30 Chronic kidney disease, stage 3 unspecified; I50.9 Heart failure, unspecified; E78.5 Hyperlipidemia, unspecified; Z79.4 Long term (current) use of insulin; Z79.82 Long term (current) use of aspirin; Z79.899 Other long term (current) drug therapy; Z79.02 Long term (current) use of antithrombotics/antiplatelets
CPT/HCPCS: 36415; 87502; 87635; 87651; 99283

== ENCOUNTER 2022-04-04 12:40 | Outpatient (REF) | payer MEDICARE, SELFPAY | END 2022-04-04 12:41 | disposition home or self-care (01) | LOC: HO.LNP 12:40 | PROVIDERS: PCP Internal Medicine; Visit Provider Surgery | DX: L72.0 Epidermal cyst (principal) | CPT/HCPCS: 11442; 88304 ==

== ENCOUNTER → 2022-04-18 12:28 | Outpatient (BNVA) | payer MEDICARE, SELFPAY | PROVIDERS: PCP Internal Medicine; Visit Provider Surgery | DX: Z13.89 Encounter for screening for other disorder (principal) ==

== ENCOUNTER 2022-06-27 12:43 | Outpatient (REF) | payer MEDICARE, SELFPAY ==
--- NOTE | ~2022-06-27 | XR_ITS ---
EXAMINATION: XR CHEST CLINICAL INFORMATION: Clinical concern for infection. COMPARISON: Chest radiographs 10/16/2021, 06/07/2021, 05/11/2021 TECHNIQUE: 2 views of the chest were obtained. FINDINGS: There has been prior median sternotomy with mediastinal clips and sternotomy wires. There is borderline hyperinflation similar to prior studies. The lungs are clear and the vascularity is normal. Heart size normal. The costophrenic sulci are clear. There is no airspace consolidation or groundglass opacity. No cavitary lesion or pleural reaction. The hilar and mediastinal contours and bony structures are stable. There is old compression deformity thoracolumbar region. XR/XR chest 2V IMPRESSION: No acute intrathoracic disease.
[2022-06-27 13:12] LABS: MANUAL DIFF FLAG NO
[2022-06-27 13:31] LABS: Basophils Absolute Auto 0.1 X10*3/uL (0.0-0.2); Eosinophils Absolute Auto 0.4 X10*3/uL (0.0-0.4); Eosinophils Percent Auto 4.4 % (0-4); Hematocrit 35.9 % (42.0-52.0); Imm Gran Abs Auto 0.02 X10*3/uL (0.00-0.03); Imm Gran Pct Auto 0.2 % (0.0-0.4); Lymphocytes Absolute Auto 2.6 X10*3/uL (1.2-4.9); Mean Corpuscular HGB Conc 33.4 g/dl (31.0-36.0); Mean Corpuscular Hemoglobin 31.3 pg (27.0-33.0); Mean Corpuscular Volume 93.7 fL (80.0-98.0); Mean Platelet Volume 10.3 fL (9.4-12.4); Monocytes Absolute Auto 0.8 X10*3/uL (0.1-1.2); Monocytes Percent Auto 9.4 % (2-11); Neutrophils Absolute Auto 4.5 x10*3/uL (2.0-8.3); Platelet Count 193 X10*3/uL (160-400); Red Blood Count 3.83 X10*6/uL (4.60-5.80); Red Cell Distribution Width 13.8 % (11.0-16.0); White Blood Count 8.4 X10*3/uL (4.8-10.8)
[2022-06-27 13:58] LABS: Alanine Aminotransferase 48 U/L (0-40); Albumin Level 3.8 g/dL (3.5-5.0); Alkaline Phosphatase 96 U/L (39-117); Anion Gap 15 (12-20); Aspartate Amino Transferase 33 U/L (5-37); Bilirubin Total 0.7 mg/dL (0.0-1.0); Blood Urea Nitrogen 23 mg/dL (9-16); Calcium 8.9 mg/dL (8.4-10.2); Carbon Dioxide 26 mmol/L (22-29); Chloride 108 mmol/L (96-108); Estimated Glomerular Filt Rate 54; Glucose Random 127 mg/dL (60-115); Potassium 5.2 mmol/L (3.3-5.1); Sodium 144 mmol/L (135-145); Total Protein 7.2 g/dL (6.5-8.0)
== END 2022-06-27 12:44 | disposition home or self-care (01) ==
LOC: HO.LAB 12:43
PROVIDERS: PCP Internal Medicine; Visit Provider Physician Assistant
DX: L40.0 Psoriasis vulgaris (principal)
CPT/HCPCS: 36415; 71046; 80053; 85025

== ENCOUNTER 2022-08-01 17:01 | Emergency (ER) | payer MEDICARE, SELFPAY ==
--- NOTE | ~2022-08-01 | CT_ITS ---
EXAMINATION: CT HEAD WITHOUT CONTRAST CLINICAL INFORMATION: Visual changes. Headache. Weakness. COMPARISON: 07/14/2018 TECHNIQUE: Contiguous axial imaging was performed from the skull base to vertex without intravenous contrast. This CT examination was performed using dose optimization techniques as appropriate, variously including the following: * Automated exposure control * Adjustment of mA and/or kV according to patient size (this includes techniques or standardized protocols for targeted exams where dose is matched to indication/reason for exam; i.e. extremities or head) Use of iterative reconstruction technique DLP: 693 mGy-cm. FINDINGS: There is no evidence of acute intracranial hemorrhage or territorial infarction. No abnormal mass effect or midline shift is seen. Dial to white matter differentiation is well preserved. No extra-axial fluid collections are identified. No hydrocephalus. Proportional prominence of the ventricles and sulcal spaces is consistent with mild volume loss. Patchy periventricular and deep white matter hypoattenuation is consistent with mild small vessel ischemic changes. Diffuse calcification of the falx and tentorium. This is unchanged. The osseous structures and soft tissues are normal. The mastoid air cells and visualized portions of the paranasal sinuses are well aerated. CT/CT head/brain wo IV con IMPRESSION: No acute intracranial pathology. Chronic volume loss with small vessel ischemic change.
--- NOTE | ~2022-08-01 | XR_ITS ---
EXAMINATION: XR CHEST CLINICAL INFORMATION: Short of breath COMPARISON: 06/27/2022 TECHNIQUE: Frontal view of the chest was obtained. FINDINGS: Median sternotomy wires appear intact. The lungs are well expanded. There is no focal consolidation, edema, or effusion. No pneumothorax. The cardiomediastinal silhouette is within normal limits. No acute osseous abnormality. Degenerative changes at both shoulders. XR/XR chest 1V IMPRESSION: No acute pulmonary disease.
[2022-08-01 17:03] VITALS: BP 119/43; PULSE 98; RESP 18; TEMP 37.7; O2SAT 94; BMI 25.1
--- NOTE | 2022-08-01 17:03 | ECG_ITS ---
Test Reason : SOB Blood Pressure : / mmHG Vent. 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
--- NOTE | 2022-08-01 17:04 | ED.WEAKNESS ---
HPI - Weakness General Chief complaint: Weakness <KENNEDY Henriquez - Last Filed: 08/01/22 17:05> Stated complaint: weakness <KENNEDY Henriquez - Last Filed: 08/01/22 17:05> Time Seen by Provider: 08/01/22 21:02 <KENNEDY Henriquez - Last Filed: 08/01/22 17:05> Source: patient <Cali Cheng MD - Last Filed: 08/01/22 23:37> Mode of arrival: ambulatory <Cali Cheng MD - Last Filed: 08/01/22 23:37> Limitations: no limitations <Cali Cheng MD - Last Filed: 08/01/22 23:37> History of Present Illness HPI Narrative: 77-year-old male who presents emergency department for evaluation of weakness, decreased appetite, difficulty walking, feeling off balance, occasional headache. Patient states he has not been feeling well for approximately 3-4 days. He states that he has lost his appetite but has been able to drink fluid but in smaller than usual amounts. He states he has been experiencing hammering headaches mainly at night that will last several hours then resolved. He states that he occasionally has palpitations but denied chest pain. He does feel short of breath and has dyspnea on exertion. He states that he is having difficulty walking secondary to weakness in his legs and feeling off balance. He denied fever, chills, rhinorrhea, sore throat, chest pain, cough. He denied nausea, vomiting, diarrhea, dark stools or bloody stools. He has noted urinary frequency but denied dysuria. RME reviewed by me. <Cali Cheng MD - Last Filed: 08/01/22 23:37> Related Data Home medications: Home Medications Medication Instructions Recorded Confirmed 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 meter (OneTouch #1 ea 03/06/21 03/07/22 Verio Reflect Meter) ascorbic acid (vitamin C) 500 mg 500 mg PO DAILY 06/07/21 03/07/22 tablet cholecalciferol (vitamin D3) 25 25 mcg PO DAILY 06/07/21 03/07/22 mcg (1,000 unit) tablet dorzolamide 22.3 mg-timolol 6.8 1 drp ophthalmic (eye) BID 06/07/21 03/07/22 mg/mL eye drops guselkumab 100 mg/mL subcutaneous mg subcut 06/07/21 03/07/22 auto-injector (Varsha) multivitamin 1 tab PO DAILY 06/07/21 03/07/22 Previous Rx's Medication Instructions Recorded 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 meter (FreeStyle #1 ea 02/29/20 [place] Lite kit) lancets 28 gauge #300 ea 07/12/20 FreeStyle Lite Strips (blood sugar #300 ea 08/01/20 diagnostic) aspirin 81 mg tablet,delayed 81 mg PO DAILY #90 tabs 11/16/20 release acetaminophen 500 mg tablet 500 mg PO Q6H PRN pain or fever 01/30/21 (Tylenol Extra Strength) #20 tabs blood sugar diagnostic (FreeStyle #150 ea 02/23/21 Lite Strips) blood sugar diagnostic (OneTouch #100 ea 02/23/21 Verio test strips) 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 meter (OneTouch #1 ea 02/23/21 Verio IQ Meter kit) lancets 33 gauge (OneTouch Delica #100 ea 02/23/21 Plus Lancet) hydrocodone 5 mg-acetaminophen 325 1 tab PO Q4-6H PRN pain #5 tabs 09/17/21 mg tablet pen needle, diabetic 32 gauge x #400 ea 10/19/2132 (BD Martina 2nd Gen Pen Needle) oseltamivir 75 mg capsule (Tamiflu) 75 mg PO Q12H 5 days #10 caps 03/09/22 amlodipine 10 mg tablet 10 mg PO DAILY #90 tabs 05/02/22 dulaglutide 1.5 mg/0.5 mL 1.5 mg (0.5 mL) subcut QWEEK #2 mL 05/02/22 [facility] gabapentin 300 mg capsule 300 mg PO BEDTIME #90 caps 05/02/22 insulin degludec 100 unit/mL (3 18 unit (0.18 mL) subcut DAILY 90 05/02/22 mL) subcutaneous pen days #16.2 mL insulin lispro 100 unit/mL 5 - 9 unit (0.05 - 0.09 mL) subcut 05/02/22 subcutaneous pen (Humalog KwikPen TID 90 days #15 mL (U-100) Insulin) losartan 25 mg tablet 25 mg PO DAILY 90 days #90 tabs 05/02/22 metoprolol succinate 25 mg 25 mg PO DAILY #90 tabs 05/02/22 tablet,extended release 24 hr rosuvastatin 40 mg tablet 40 mg PO DAILY 90 days #90 tabs 06/10/22 <KENNEDY Henriquez - Last Filed: 08/01/22 17:05> Allergies/Adverse reactions: Allergies Allergy/AdvReac Type Severity Reaction Status Date / Time No Known Allergies Allergy Mild NONE Verified 05/03/22 09:49 <KENNEDY Henriquez - Last Filed: 08/01/22 17:05> Review of Systems Review of Systems: Yes all other systems are reviewed and are negative <Cali Cheng MD - Last Filed: 08/01/22 23:37> [facility] Past Medical History [facility] Narrative: Social history: He states he lives at home with his and his grandson. He smokes 5-6 cigarettes per day and he states that he smoked for 60 years. Denies alcohol use. Denies drug use. <Cali Cheng MD - Last Filed: 08/01/22 23:37> Medical History: Medical History Acute hypoxemic respiratory failure due to COVID-19 Allergic rhinitis Aortic stenosis CAD (coronary artery disease) Cardiomyopathy Carotid artery stenosis CKD stage 3 due to type 2 diabetes mellitus Compression fracture of L1 lumbar vertebra Congestive heart failure Diabetic 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 diabetes mellitus Diabetic polyneuropathy associated with type 2 diabetes mellitus Diabetic retinopathy associated with type 2 diabetes mellitus Dyslipidemia Epidermoid cyst of skin of cheek GERD (gastroesophageal reflux disease) Glaucoma History of renal calculi Hypertension Iliac artery stenosis, bilateral Infective endocarditis Left carotid stenosis 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 Mass of face Overweight (BMI 25.0-29.9) Pneumonia due to COVID-19 virus Positive TB test Preoperative clearance Pulmonary nodule PVD (peripheral vascular disease) Renal insufficiency Respiratory tract infection Superficial abrasion Tobacco abuse Trigger finger, right middle finger Trigger finger, right middle finger <KENNEDY Henriquez - Last Filed: 08/01/22 17:05> Surgical History: Surgical History Hx of appendectomy Hx of arthroscopy of right knee Hx of cataract removal with insertion of prosthetic lens Hx of coronary artery bypass graft Hx of shoulder surgery Hx of tonsillectomy <KENNEDY Henriquez - Last Filed: 08/01/22 17:05> Family History Family History: Family History Father Stomach cancer Mother Diabetes Brother Prostate abscess <KENNEDY Henriquez - Last Filed: 08/01/22 17:05> Social History Social History: Social History Housing: Apartment Alcohol intake: current Alcohol intake frequency: holidays/special occasions only Patient Tobacco Use Status: Current everyday Tobacco user Tobacco use type: Cigarette Cigarette Packs Per Day: 0.25 Cigarettes Per Day: 3 Smoked in Last 30 Days: No e-Cigarette/Vaping Use: Never Used Second Hand Smoke Exposure: Yes Use of substances other than those prescribed or required for medical reasons: No Advance Directives: Yes Advance Directives on File: Yes Advance Directives Date on File: 06/08/21 service: No Current occupational status: 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 Cognitive needs: No Hearing needs: No Vision needs: No <KENNEDY Henriquez - Last Filed: 08/01/22 17:05> Physical Exam Vital Signs: Vital Signs: Last Vital Signs Temp 100.1 F 08/01/22 22:33 Pulse 87 08/01/22 22:33 Resp 14 08/01/22 22:33 BP 181/62 H 08/01/22 22:33 Pulse Ox 95 08/01/22 22:33 O2 Del Method Room Air 08/01/22 22:33 BMI result Body Mass Index 25.1 <KENNEDY Henriquez - Last Filed: 08/01/22 17:05> Vital Signs: Last Vital Signs Temp 100.1 F 08/01/22 22:33 Pulse 87 08/01/22 22:33 Resp 14 08/01/22 22:33 BP 181/62 H 08/01/22 22:33 Pulse Ox 95 08/01/22 22:33 O2 Del Method Room Air 08/01/22 22:33 BMI result Body Mass Index 25.1 <Cali Cheng MD - Last Filed: 08/01/22 23:37> Const: Other: Awake, alert, male patient, pleasant, cooperative, answers all questions appropriately <MD Soledad Jaramillo Last Filed: 08/01/22 23:37> HEENT: Head: Yes normal to inspection, Yes normocephalic and Yes atraumatic <Cali Cheng MD - Last Filed: 08/01/22 23:37> Ears: external ears normal <MD Soledad Jaramillo Last Filed: 08/01/22 23:37> General nose exam: Normal external nose present <MD Soledad Jaramillo Last Filed: 08/01/22 23:37> Face and sinus: Yes normal facial exam <MD Soledad Jaramillo Last Filed: 08/01/22 23:37> Mouth: Normal oral and palatal mucosa present <MD Soledad Jaramillo Last Filed: 08/01/22 23:37> Throat: Yes posterior oropharynx normal <MD Soledad Jaramillo Last Filed: 08/01/22 23:37> Eyes: General: appearance normal, both eyes and all related structures <MD Soledad Jaramillo Last Filed: 08/01/22 23:37> Pupils: Equal, round and reactive pupils present <MD Soledad Jaramillo Last Filed: 08/01/22 23:37> Neck: Neck: Yes normal visual inspection, Yes no lymphadenopathy, Yes trachea midline and Yes supple <MD Soledad Jaramillo Last Filed: 08/01/22 23:37> Chest: Chest palpation & inspection: normal inspection of the chest and normal palpation of entire chest wall <MD Soledad Jaraimllo Last Filed: 08/01/22 23:37> Resp: Effort & Inspection: normal respiratory effort and able to speak in complete sentences <MD Soledad Jaramillo Last Filed: 08/01/22 23:37> Auscultation: clear to auscultation bilaterally <Cali Cheng MD - Last Filed: 08/01/22 23:37> Cardio: Rate: regular rate <Cali Cheng MD - Last Filed: 08/01/22 23:37> Rhythm: regular rhythm <Cali Cheng MD - Last Filed: 08/01/22 23:37> Heart sounds: S1 normal heart sound present, S2 normal heart sound present and Murmur heart sound present systolic II/ (Left lower sternal border) and III/ (Right upper sternal border) <Cali Cheng MD - Last Filed: 08/01/22 23:37> GI: Inspection: Yes normal to inspection <Cali Cheng MD - Last Filed: 08/01/22 23:37> Palpation (GI): Soft to palpation, nontender and no guarding <Cali Cheng MD - Last Filed: 08/01/22 23:37> Auscultation: normal bowel sounds <Cali Cheng MD - Last Filed: 08/01/22 23:37> : General: Yes no CVA tenderness <MD Soledad Jaramillo Last Filed: 08/01/22 23:37> Back/Spine/Pelvis: Back: no CVA tenderness <Cali Cheng MD - Last Filed: 08/01/22 23:37> Skin: General skin exam: no rashes or lesions noted <Cali Cheng MD - Last Filed: 08/01/22 23:37> Neuro: Cranial nerves: Yes CN's II-XII intact bilaterally and Yes Equal, round and reactive pupils present <Cali Cheng MD - Last Filed: 08/01/22 23:37> Cognition (Neuro): normal cognition <Cali Cheng MD - Last Filed: 08/01/22 23:37> Motor exam (neuro): 5/5 motor strength present throughout <MD Soledad Jaramillo Last Filed: 08/01/22 23:37> Extrem: General: Yes normal to inspection <Cali Cheng MD - Last Filed: 08/01/22 23:37> Psych: Appearance: grossly normal <Cali Cheng MD - Last Filed: 08/01/22 23:37> Speech and movement: Normal speech and movement present <Cali Cheng MD - Last Filed: 08/01/22 23:37> Affect: normal affect <Cali Cheng MD - Last Filed: 08/01/22 23:37> Attitude: cooperative <Cali Cheng MD - Last Filed: 08/01/22 23:37> Thought process: Normal thought process present <Cali Cheng MD - Last Filed: 08/01/22 23:37> Thought content: Normal thought content present <Cali Cheng MD - Last Filed: 08/01/22 23:37> Course Course Course Narrative: This is an RME: Additional HPI, ROS, PE not included below will be deferred to primary provider. 77-year-old male presents with weakness, fatigue, malaise, shortness of breath, chest pressure, blurred vision and headaches the past few days, arrives with daughter who states he has been this way for the past 2-3 days, not eating or drinking much, has not been acting his normal self. Was unable to get out of the vehicle himself so he needed help from triage nurse in this provider. Physical exam global weakness Plan labs, imaging, urine, head CT <KENNEDY Henriquez - Last Filed: 08/01/22 17:05> Medications Administered Discontinued Medications Generic Name Dose Route Start Last Admin Trade Name Freq PRN Reason Stop Dose Admin Lactated Ringer's 1,000 mls @ 999 mls/hr 08/01/22 22:15 08/01/22 23:11 Lr IV 08/01/22 23:15 Infused .Q1H1M AMARILIS Infusion <KENNEDY Henriquez - Last Filed: 08/01/22 17:05> Medications Administered Discontinued Medications Generic Name Dose Route Start Last Admin Trade Name Freq PRN Reason Stop Dose Admin Lactated Ringer's 1,000 mls @ 999 mls/hr 08/01/22 22:15 08/01/22 23:11 Lr IV 08/01/22 23:15 Infused .Q1H1M AMARILIS Infusion <Cali Cheng MD - Last Filed: 08/01/22 23:37> Medical Decision Making Medical Decision Making MDM Narrative: 77-year-old male who presents emergency department for evaluation of 3-4 days of decreased appetite, headache, palpitations, weakness, feeling off balance. Patient also complained of shortness of breath and dyspnea on exertion as well as urinary frequency. Vital signs were unremarkable. Heart exam did reveal murmur consistent with aortic stenosis. Exam was otherwise unremarkable. Provider at triage ordered the following studies: CBC, CMP, troponin, D-dimer, urinalysis, blood cultures x2, COVID-19, chest x-ray, CT scan of the brain without IV contrast an EKG. Patient was ordered to get lactated Ringer's x1 L 2213: My interpretation of patient's diagnostic data is as follows: WBC elevated 16,300 with 77 neutrophils and 12 lymphocytes. Anemia with an H&H of 11.1 and 32.3-this is chronic MCV was normal at 92.6. BUN was elevated 25. Glucose elevated 152. Initial high sensitive troponin I was detectable but not elevated 11 and repeat 2 hour troponin was unchanged at 11 which is reassuring. D-dimer was elevated 250 which is most likely normal with age adjustment. Chest x-ray revealed no acute disease. COVID-19 was negativE Twelve EKG was unchanged from previous. 2333: Patient's urinalysis was negative. The patient is feeling better after receiving a L of fluid. Patient was able to eat crackers and drink fluid without any difficulty. He was able to walk in the emergency depart without assistance. Patient most likely has a viral syndrome with dehydration. He was given printed and verbal instructions and discharged home. <Cali Cheng MD - Last Filed: 08/01/22 23:37> Differential Diagnosis Differential Diagnoses: The differential diagnosis associated with the presentation includes <Cali Cheng MD - Last Filed: 08/01/22 23:37> Differential diagnosis includes was not limited stroke, cerebral bleed, nonspecific headache, pneumonia, congestive heart failure, electrolyte abnormalities, anemia, urinary tract infection, viral syndrome, COVID-19 infection <Cali Cheng MD - Last Filed: 08/01/22 23:37> Admission/Observation Consideration of admission/observation: Escalation of care including admission/observation considered <Cali Cheng MD - Last Filed: 08/01/22 23:37> Lab Data MDM Lab Attestation statement: I reviewed the patient's lab results. <Cali Cheng MD - Last Filed: 08/01/22 23:37> See MDM <Cali Cheng MD - Last Filed: 08/01/22 23:37> Result Diagrams: 08/01/22 17:31 08/01/22 17:31 <KENNEDY Henriquez - Last Filed: 08/01/22 17:05> Labs: Lab Results 08/01/22 08/01/22 08/01/22 Range/Units 17:29 17:31 17:31 WBC 16.3 H (4.8-10.8) X10*3/uL RBC 3.49 L (4.60-5.80) X10*6/uL Hgb 11.1 L (14.0-18.0) g/dl Hct 32.3 L (42.0-52.0) % MCV 92.6 (80.0-98.0) fL MCH 31.8 (27.0-33.0) pg MCHC 34.4 (31.0-36.0) g/dl RDW 13.7 (11.0-16.0) % Plt Count 158 L (160-400) X10*3/uL MPV 10.4 (9.4-12.4) fL Immature Gran % (Auto) 0.4 (0.0-0.4) % Neut % (Auto) 77.6 H (45-73) % Lymph % (Auto) 12.5 L (20-40) % [place] % (Auto) 7.9 (2-11) % Eos % (Auto) 1.2 (0-4) % Baso % (Auto) 0.4 (0-2) % Lymph # (Auto) 2.1 (1.2-4.9) X10*3/uL [place] # (Auto) 1.3 H (0.1-1.2) X10*3/uL Eos # (Auto) 0.2 (0.0-0.4) X10*3/uL Baso # (Auto) 0.1 (0.0-0.2) X10*3/uL Abs Immat Gran (auto) 0.07 H (0.00-0.03) X10*3/uL Absolute Neuts (auto) 12.7 H (2.0-8.3) x10*3/uL Absolute Nucleated RBC 0.000 (0.0-0.012) X10*3/uL Nucleated RBC % (auto) 0.0 (0.0-0.2) /100WBC D-Dimer High Sensitivty NG/ML Sodium 138 (135-145) mmol/L Potassium 4.4 (3.3-5.1) mmol/L Chloride 108 (96-108) mmol/L Carbon Dioxide 22 (22-29) mmol/L Anion Gap 12 (12-20) BUN 25 H (9-16) mg/dL Creatinine 1.18 (0.5-1.4) mg/dL Estim Creat Clear Calc 48.2 Estimated GFR 60 Random Glucose 152 H (60-115) mg/dL Lactic Acid 1.2 (0.5-2.0) mmol/L Calcium 8.5 (8.4-10.2) mg/dL Magnesium 1.7 (1.6-2.6) mg/dL Total Bilirubin 0.7 (0.0-1.0) mg/dL AST 18 (5-37) U/L ALT 33 (0-40) U/L Alkaline Phosphatase 97 (39-117) U/L Troponin I High Sens (<3.5-35.0) ng/L Total Protein 6.8 (6.5-8.0) g/dL Albumin 3.7 (3.5-5.0) g/dL Urine Color Urine Appearance Urine pH (5.0-9.0) Ur Specific [place] (1.005-1.025) Urine Protein (Neg-Trace) mg/dL Urine Glucose (UA) (Negative) mg/dL Urine Ketones (Negative) mg/dL Urine Blood (Negative) Urine Nitrite (Negative) Ur Leukocyte Esterase (Negative) Urine RBC (0-2) /HPF Urine WBC (0-5) /HPF Ur Squamous Epith Cells (0-2) /HPF Urine Bacteria (None Seen) Hyaline Casts (0-2) /LPF COVID-19 ([facility]) (Negative) COVID-19 Clin Com 08/01/22 08/01/22 08/01/22 Range/Units 17:31 17:31 17:32 WBC (4.8-10.8) X10*3/uL RBC (4.60-5.80) X10*6/uL Hgb (14.0-18.0) g/dl Hct (42.0-52.0) % MCV (80.0-98.0) fL MCH (27.0-33.0) pg MCHC (31.0-36.0) g/dl RDW (11.0-16.0) % Plt Count (160-400) X10*3/uL MPV (9.4-12.4) fL Immature Gran % (Auto) (0.0-0.4) % Neut % (Auto) (45-73) % Lymph % (Auto) (20-40) % [place]lier % (Auto) (2-11) % Eos % (Auto) (0-4) % Baso % (Auto) (0-2) % Lymph # (Auto) (1.2-4.9) X10*3/uL [place] # (Auto) (0.1-1.2) X10*3/uL Eos # (Auto) (0.0-0.4) X10*3/uL Baso # (Auto) (0.0-0.2) X10*3/uL Abs Immat Gran (auto) (0.00-0.03) X10*3/uL Absolute Neuts (auto) (2.0-8.3) x10*3/uL Absolute Nucleated RBC (0.0-0.012) X10*3/uL Nucleated RBC % (auto) (0.0-0.2) /100WBC D-Dimer High Sensitivty 250 NG/ML Sodium (135-145) mmol/L Potassium (3.3-5.1) mmol/L Chloride (96-108) mmol/L Carbon Dioxide (22-29) mmol/L Anion Gap (12-20) BUN (9-16) mg/dL Creatinine (0.5-1.4) mg/dL Estim Creat Clear Calc Estimated GFR Random Glucose (60-115) mg/dL Lactic Acid (0.5-2.0) mmol/L Calcium (8.4-10.2) mg/dL Magnesium (1.6-2.6) mg/dL Total Bilirubin (0.0-1.0) mg/dL AST (5-37) U/L ALT (0-40) U/L Alkaline Phosphatase (39-117) U/L Troponin I High Sens 11.0 (<3.5-35.0) ng/L Total Protein (6.5-8.0) g/dL Albumin (3.5-5.0) g/dL Urine Color Urine Appearance Urine pH (5.0-9.0) Ur Specific [place] (1.005-1.025) Urine Protein (Neg-Trace) mg/dL Urine Glucose (UA) (Negative) mg/dL Urine Ketones (Negative) mg/dL Urine Blood (Negative) Urine Nitrite (Negative) Ur Leukocyte Esterase (Negative) Urine RBC (0-2) /HPF Urine WBC (0-5) /HPF Ur Squamous Epith Cells (0-2) /HPF Urine Bacteria (None Seen) Hyaline Casts (0-2) /LPF COVID-19 ([facility]) Negative (Negative) COVID-19 Clin Com See Note 08/01/22 08/01/22 Range/Units 19:39 22:05 WBC (4.8-10.8) X10*3/uL RBC (4.60-5.80) X10*6/uL Hgb (14.0-18.0) g/dl Hct (42.0-52.0) % MCV (80.0-98.0) fL MCH (27.0-33.0) pg MCHC (31.0-36.0) g/dl RDW (11.0-16.0) % Plt Count (160-400) X10*3/uL MPV (9.4-12.4) fL Immature Gran % (Auto) (0.0-0.4) % Neut % (Auto) (45-73) % Lymph % (Auto) (20-40) % [place] % (Auto) (2-11) % Eos % (Auto) (0-4) % Baso % (Auto) (0-2) % Lymph # (Auto) (1.2-4.9) X10*3/uL [place] # (Auto) (0.1-1.2) X10*3/uL Eos # (Auto) (0.0-0.4) X10*3/uL Baso # (Auto) (0.0-0.2) X10*3/uL Abs Immat Gran (auto) (0.00-0.03) X10*3/uL Absolute Neuts (auto) (2.0-8.3) x10*3/uL Absolute Nucleated RBC (0.0-0.012) X10*3/uL Nucleated RBC % (auto) (0.0-0.2) /100WBC D-Dimer High Sensitivty NG/ML Sodium (135-145) mmol/L Potassium (3.3-5.1) mmol/L Chloride (96-108) mmol/L Carbon Dioxide (22-29) mmol/L Anion Gap (12-20) BUN (9-16) mg/dL Creatinine (0.5-1.4) mg/dL Estim Creat Clear Calc Estimated GFR Random Glucose (60-115) mg/dL Lactic Acid (0.5-2.0) mmol/L Calcium (8.4-10.2) mg/dL Magnesium (1.6-2.6) mg/dL Total Bilirubin (0.0-1.0) mg/dL AST (5-37) U/L ALT (0-40) U/L Alkaline Phosphatase (39-117) U/L Troponin I High Sens 11.0 (<3.5-35.0) ng/L Total Protein (6.5-8.0) g/dL Albumin (3.5-5.0) g/dL Urine Color Yellow Urine Appearance Clear Urine pH 5.0 (5.0-9.0) Ur Specific [place] 1.020 (1.005-1.025) Urine Protein 300 (3+) H (Neg-Trace) mg/dL Urine Glucose (UA) Negative (Negative) mg/dL Urine Ketones Negative (Negative) mg/dL Urine Blood Negative (Negative) Urine Nitrite Negative (Negative) Ur Leukocyte Esterase Negative (Negative) Urine RBC 0-2 (0-2) /HPF Urine WBC 0-5 (0-5) /HPF Ur Squamous Epith Cells 0-2 (0-2) /HPF Urine Bacteria None Seen (None Seen) Hyaline Casts 0-2 (0-2) /LPF COVID-19 ([facility]) (Negative) COVID-19 Clin Com <KENNEDY Henriquez - Last Filed: 08/01/22 17:05> Lab Results 08/01/22 08/01/22 08/01/22 Range/Units 17:29 17:31 17:31 WBC 16.3 H (4.8-10.8) X10*3/uL RBC 3.49 L (4.60-5.80) X10*6/uL Hgb 11.1 L (14.0-18.0) g/dl Hct 32.3 L (42.0-52.0) % MCV 92.6 (80.0-98.0) fL MCH 31.8 (27.0-33.0) pg MCHC 34.4 (31.0-36.0) g/dl RDW 13.7 (11.0-16.0) % Plt Count 158 L (160-400) X10*3/uL MPV 10.4 (9.4-12.4) fL Immature Gran % (Auto) 0.4 (0.0-0.4) % Neut % (Auto) 77.6 H (45-73) % Lymph % (Auto) 12.5 L (20-40) % [place]lier % (Auto) 7.9 (2-11) % Eos % (Auto) 1.2 (0-4) % Baso % (Auto) 0.4 (0-2) % Lymph # (Auto) 2.1 (1.2-4.9) X10*3/uL [place] # (Auto) 1.3 H (0.1-1.2) X10*3/uL Eos # (Auto) 0.2 (0.0-0.4) X10*3/uL Baso # (Auto) 0.1 (0.0-0.2) X10*3/uL Abs Immat Gran (auto) 0.07 H (0.00-0.03) X10*3/uL Absolute Neuts (auto) 12.7 H (2.0-8.3) x10*3/uL Absolute Nucleated RBC 0.000 (0.0-0.012) X10*3/uL Nucleated RBC % (auto) 0.0 (0.0-0.2) /100WBC D-Dimer High Sensitivty NG/ML Sodium 138 (135-145) mmol/L Potassium 4.4 (3.3-5.1) mmol/L Chloride 108 (96-108) mmol/L Carbon Dioxide 22 (22-29) mmol/L Anion Gap 12 (12-20) BUN 25 H (9-16) mg/dL Creatinine 1.18 (0.5-1.4) mg/dL Estim Creat Clear Calc 48.2 Estimated GFR 60 Random Glucose 152 H (60-115) mg/dL Lactic Acid 1.2 (0.5-2.0) mmol/L Calcium 8.5 (8.4-10.2) mg/dL Magnesium 1.7 (1.6-2.6) mg/dL Total Bilirubin 0.7 (0.0-1.0) mg/dL AST 18 (5-37) U/L ALT 33 (0-40) U/L Alkaline Phosphatase 97 (39-117) U/L Troponin I High Sens (<3.5-35.0) ng/L Total Protein 6.8 (6.5-8.0) g/dL Albumin 3.7 (3.5-5.0) g/dL Urine Color Urine Appearance Urine pH (5.0-9.0) Ur Specific [place] (1.005-1.025) Urine Protein (Neg-Trace) mg/dL Urine Glucose (UA) (Negative) mg/dL Urine Ketones (Negative) mg/dL Urine Blood (Negative) Urine Nitrite (Negative) Ur Leukocyte Esterase (Negative) Urine RBC (0-2) /HPF Urine WBC (0-5) /HPF Ur Squamous Epith Cells (0-2) /HPF Urine Bacteria (None Seen) Hyaline Casts (0-2) /LPF COVID-19 ([facility]) (Negative) COVID-19 Clin Com 08/01/22 08/01/22 08/01/22 Range/Units 17:31 17:31 17:32 WBC (4.8-10.8) X10*3/uL RBC (4.60-5.80) X10*6/uL Hgb (14.0-18.0) g/dl Hct (42.0-52.0) % MCV (80.0-98.0) fL MCH (27.0-33.0) pg MCHC (31.0-36.0) g/dl RDW (11.0-16.0) % Plt Count (160-400) X10*3/uL MPV (9.4-12.4) fL Immature Gran % (Auto) (0.0-0.4) % Neut % (Auto) (45-73) % Lymph % (Auto) (20-40) % [place] % (Auto) (2-11) % Eos % (Auto) (0-4) % Baso % (Auto) (0-2) % Lymph # (Auto) (1.2-4.9) X10*3/uL [place] # (Auto) (0.1-1.2) X10*3/uL Eos # (Auto) (0.0-0.4) X10*3/uL Baso # (Auto) (0.0-0.2) X10*3/uL Abs Immat Gran (auto) (0.00-0.03) X10*3/uL Absolute Neuts (auto) (2.0-8.3) x10*3/uL Absolute Nucleated RBC (0.0-0.012) X10*3/uL Nucleated RBC % (auto) (0.0-0.2) /100WBC D-Dimer High Sensitivty 250 NG/ML Sodium (135-145) mmol/L Potassium (3.3-5.1) mmol/L Chloride (96-108) mmol/L Carbon Dioxide (22-29) mmol/L Anion Gap (12-20) BUN (9-16) mg/dL Creatinine (0.5-1.4) mg/dL Estim Creat Clear Calc Estimated GFR Random Glucose (60-115) mg/dL Lactic Acid (0.5-2.0) mmol/L Calcium (8.4-10.2) mg/dL Magnesium (1.6-2.6) mg/dL Total Bilirubin (0.0-1.0) mg/dL AST (5-37) U/L ALT (0-40) U/L Alkaline Phosphatase (39-117) U/L Troponin I High Sens 11.0 (<3.5-35.0) ng/L Total Protein (6.5-8.0) g/dL Albumin (3.5-5.0) g/dL Urine Color Urine Appearance Urine pH (5.0-9.0) Ur Specific [place] (1.005-1.025) Urine Protein (Neg-Trace) mg/dL Urine Glucose (UA) (Negative) mg/dL Urine Ketones (Negative) mg/dL Urine Blood (Negative) Urine Nitrite (Negative) Ur Leukocyte Esterase (Negative) Urine RBC (0-2) /HPF Urine WBC (0-5) /HPF Ur Squamous Epith Cells (0-2) /HPF Urine Bacteria (None Seen) Hyaline Casts (0-2) /LPF COVID-19 ([facility]) Negative (Negative) COVID-19 Clin Com See Note 08/01/22 08/01/22 Range/Units 19:39 22:05 WBC (4.8-10.8) X10*3/uL RBC (4.60-5.80) X10*6/uL Hgb (14.0-18.0) g/dl Hct (42.0-52.0) % MCV (80.0-98.0) fL MCH (27.0-33.0) pg MCHC (31.0-36.0) g/dl RDW (11.0-16.0) % Plt Count (160-400) X10*3/uL MPV (9.4-12.4) fL Immature Gran % (Auto) (0.0-0.4) % Neut % (Auto) (45-73) % Lymph % (Auto) (20-40) % [place] % (Auto) (2-11) % Eos % (Auto) (0-4) % Baso % (Auto) (0-2) % Lymph # (Auto) (1.2-4.9) X10*3/uL [place] # (Auto) (0.1-1.2) X10*3/uL Eos # (Auto) (0.0-0.4) X10*3/uL Baso # (Auto) (0.0-0.2) X10*3/uL Abs Immat Gran (auto) (0.00-0.03) X10*3/uL Absolute Neuts (auto) (2.0-8.3) x10*3/uL Absolute Nucleated RBC (0.0-0.012) X10*3/uL Nucleated RBC % (auto) (0.0-0.2) /100WBC D-Dimer High Sensitivty NG/ML Sodium (135-145) mmol/L Potassium (3.3-5.1) mmol/L Chloride (96-108) mmol/L Carbon Dioxide (22-29) mmol/L Anion Gap (12-20) BUN (9-16) mg/dL Creatinine (0.5-1.4) mg/dL Estim Creat Clear Calc Estimated GFR Random Glucose (60-115) mg/dL Lactic Acid (0.5-2.0) mmol/L Calcium (8.4-10.2) mg/dL Magnesium (1.6-2.6) mg/dL Total Bilirubin (0.0-1.0) mg/dL AST (5-37) U/L ALT (0-40) U/L Alkaline Phosphatase (39-117) U/L Troponin I High Sens 11.0 (<3.5-35.0) ng/L Total Protein (6.5-8.0) g/dL Albumin (3.5-5.0) g/dL Urine Color Yellow Urine Appearance Clear Urine pH 5.0 (5.0-9.0) Ur Specific [place] 1.020 (1.005-1.025) Urine Protein 300 (3+) H (Neg-Trace) mg/dL Urine Glucose (UA) Negative (Negative) mg/dL Urine Ketones Negative (Negative) mg/dL Urine Blood Negative (Negative) Urine Nitrite Negative (Negative) Ur Leukocyte Esterase Negative (Negative) Urine RBC 0-2 (0-2) /HPF Urine WBC 0-5 (0-5) /HPF Ur Squamous Epith Cells 0-2 (0-2) /HPF Urine Bacteria None Seen (None Seen) Hyaline Casts 0-2 (0-2) /LPF COVID-19 ([facility]) (Negative) COVID-19 Clin Com <Cali Cheng MD - Last Filed: 08/01/22 23:37> Independent Interpretation Interpretation: My independent interpretation patient's 12 EKG is as follows: Normal sinus rhythm with a rate of 91, normal DC interval, QRS duration QTC interval inverted T-wave in aVL and V2, less than [address] segment depression in leads 1, aVL and V2, Q-wave in 3. Compared to EKG dated 09/06/2019 there is no change. <Cali Cheng MD - Last Filed: 08/01/22 23:37> Radiology Impression Discussion of test interpretation with radiology: I discussed test interpretation with the radiologist <Cali Cheng MD - Last Filed: 08/01/22 23:37> Radiologist Impression: CT head/brain wo IV con IMPRESSION: No acute intracranial pathology. Chronic volume loss with small vessel ischemic change. Dictated By:Smo Bhatt MD XR chest 1V IMPRESSION: No acute pulmonary disease. Dictated By:Som Bhatt MD <Cali Cheng MD - Last Filed: 08/01/22 23:37> Discharge Plan Discharge Clinical Impression: Viral syndrome, Dehydration, Weakness <KENNEDY Henriquez - Last Filed: 08/01/22 17:05> Patient Disposition: Home, Self-Care <KENNEDY Henriquez - Last Filed: 08/01/22 17:05> Instructions: Viral Syndrome (ED) <KENNEDY Henriquez - Last Filed: 08/01/22 17:05> Additional Instructions: The your blood [place] [id number] otherwise your blood work was unremarkable. Your urine test was negative for infection. The CT scan of your head was normal. Your chest x-ray revealed no evidence of pneumonia. Your COVID-19 test was negative. You most likely have a virus that is making you ill. Increase your fluid intake. Stay on a basic diet such as a SEGUNDO diet (bananas, rice, applesauce, tea, toast, crackers) Follow-up with your doctor in 2 days. Please return to the emergency department if your symptoms get worse or if you develop any symptoms that are concerning to you. <KENNEDY Henriquez - Last Filed: 08/01/22 17:05> Prescriptions: No Action (DME) 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 meter [FreeStyle [place] Lite] Kit See Rx Instructions .ROUTE .MEDSUPPLY Qty: 1 0RF Rx Instructions: As directed aspirin 81 mg tablet,delayed release (DR/EC) 81 mg PO DAILY Qty: 90 3RF (DME) 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 meter [OneTouch Verio IQ Meter] Kit See Rx Instructions .Route Qty: 1 0RF Rx Instructions: As directed 3x/day (DME) OneTouch Verio test strips Strip See Rx Instructions .ROUTE .MEDSUPPLY Qty: 100 11RF Rx Instructions: Three times a day (DME) lancets [Power OLEDsTouch Delica Plus Lancet] 33 gauge misc See Rx Instructions .Route Qty: 100 11RF Rx Instructions: As directed 3x/day (DME) pen needle, diabetic [BD Martina 2nd Gen Pen Needle] 32 gauge x 5/32 needle See Rx Instructions .MEDSUPPLY Qty: 400 4RF Rx Instructions: 5 times a day gabapentin 300 mg capsule 300 mg PO BEDTIME Qty: 90 2RF rosuvastatin 40 mg tablet 40 mg PO DAILY 90 Days Qty: 90 3RF hydrocodone-acetaminophen 5-325 mg tablet 1 tab PO Q4-6H PRN (Reason: pain) Qty: 5 0RF Rx Instructions: Partial Fill upon patient request. acetaminophen [Tylenol Extra Strength] 500 mg tablet 500 mg PO Q6H PRN (Reason: pain or fever) Qty: 20 0RF dorzolamide-timolol 22.3-6.8 mg/mL drops 1 drp ophthalmic (eye) BID Tremfya 100 mg/mL auto-injector subcut multivitamin Tablet 1 tab PO DAILY ascorbic acid (vitamin C) 500 mg Tablet 500 mg PO DAILY cholecalciferol (vitamin D3) 25 mcg (1,000 unit) Tablet 25 mcg PO DAILY oseltamivir [Tamiflu] 75 mg capsule 75 mg PO Q12H 5 Days Qty: 10 0RF amlodipine 10 mg tablet 10 mg PO DAILY Qty: 90 3RF losartan 25 mg tablet 25 mg PO DAILY 90 Days Qty: 90 1RF metoprolol succinate 25 mg tablet extended release 24 hr 25 mg PO DAILY Qty: 90 1RF Trulicity 1.5 mg/0.5 mL pen injector 1.5 mg subcut QWEEK Qty: 2 11RF insulin degludec 100 unit/mL (3 mL) insulin pen 18 unit subcut DAILY 90 Days Qty: 16.2 2RF insulin lispro [Humalog KwikPen Insulin] 100 unit/mL insulin pen 5 - 9 unit subcut TID 90 Days Qty: 15 2RF Rx Instructions: before meals as directed (DME) FreeStyle Lite Strips Strip See Rx Instructions Not Applicable BID Qty: 300 3RF Rx Instructions: 3 times a day (DME) lancets 28 gauge misc See Rx Instructions Not Applicable BID Qty: 300 3RF Rx Instructions: 3 times a day (DME) FreeStyle Lite Strips Strip See Rx Instructions .ROUTE .MEDSUPPLY Qty: 150 11RF Rx Instructions: As directed four times a day (DME) 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 meter [OneTouch Verio Reflect Meter] Misc See Rx Instructions .ROUTE .MEDSUPPLY Qty: 1 Rx Instructions: As directed <KENNEDY Henriquez - Last Filed: 08/01/22 17:05>
[2022-08-01 17:37] LABS: MANUAL DIFF FLAG NO
[2022-08-01 17:41] LABS: Basophils Absolute Auto 0.1 X10*3/uL (0.0-0.2); Basophils Percent Auto 0.4 % (0-2); Eosinophils Absolute Auto 0.2 X10*3/uL (0.0-0.4); Eosinophils Percent Auto 1.2 % (0-4); Hematocrit 32.3 % (42.0-52.0); Hemoglobin 11.1 g/dl (14.0-18.0); Imm Gran Abs Auto 0.07 X10*3/uL (0.00-0.03); Imm Gran Pct Auto 0.4 % (0.0-0.4); Lymphocytes Absolute Auto 2.1 X10*3/uL (1.2-4.9); Lymphocytes Percent Auto 12.5 % (20-40); Mean Corpuscular HGB Conc 34.4 g/dl (31.0-36.0); Mean Corpuscular Hemoglobin 31.8 pg (27.0-33.0); Mean Corpuscular Volume 92.6 fL (80.0-98.0); Mean Platelet Volume 10.4 fL (9.4-12.4); Monocytes Absolute Auto 1.3 X10*3/uL (0.1-1.2); Monocytes Percent Auto 7.9 % (2-11); Neutrophils Absolute Auto 12.7 x10*3/uL (2.0-8.3); Neutrophils Percent Auto 77.6 % (45-73); Platelet Count 158 X10*3/uL (160-400); Red Blood Count 3.49 X10*6/uL (4.60-5.80); Red Cell Distribution Width 13.7 % (11.0-16.0); White Blood Count 16.3 X10*3/uL (4.8-10.8)
[2022-08-01 17:50] LABS: Lactic Acid 1.2 mmol/L (0.5-2.0)
[2022-08-01 17:50] LABS: D Dimer High Sensitivity 250 NG/ML
[2022-08-01 17:55] LABS: Alanine Aminotransferase 33 U/L (0-40); Albumin Level 3.7 g/dL (3.5-5.0); Alkaline Phosphatase 97 U/L (39-117); Anion Gap 12 (12-20); Aspartate Amino Transferase 18 U/L (5-37); Bilirubin Total 0.7 mg/dL (0.0-1.0); Blood Urea Nitrogen 25 mg/dL (9-16); Calcium 8.5 mg/dL (8.4-10.2); Carbon Dioxide 22 mmol/L (22-29); Chloride 108 mmol/L (96-108); Creatinine Clr Calc Pharmacy 48.2; Estimated Glomerular Filt Rate 60; Glucose Random 152 mg/dL (60-115); Magnesium 1.7 mg/dL (1.6-2.6); Potassium 4.4 mmol/L (3.3-5.1); Sodium 138 mmol/L (135-145); Total Protein 6.8 g/dL (6.5-8.0)
[2022-08-01 18:09] LABS: COVID-19 Test Negative (Negative); IDNOW Serial# 9DB6401D
[2022-08-01 20:50] VITALS: BP 162/65; PULSE 88; TEMP 37.1; O2SAT 95
--- NOTE | 2022-08-01 20:54 | PC.NURSE ---
pt brought back from waiting room, reporting increasing weakness with walking that has increased over the past few days. His family started noticing he has had difficulty ambulating. pt offers no other compaints at this time
[2022-08-01] MEDS: Lactated Ringers 1,000 ML 999 ML IV (22:14)
--- NOTE | 2022-08-01 22:14 | PC.NURSE ---
20g IV placed in left forearm, LR now running wide open. Pt continues to rest in no pain and offers no complaints
[2022-08-01 22:22] LABS: Appearance Urine Clear; Color Urine Yellow; Glucose Urine UA Negative (Negative); Leukocyte Esterase Urine Negative (Negative); Nitrite Urine Negative (Negative); UMIC TRIGGER UACC YES; Urine Blood Negative (Negative); Urine Ketones Negative (Negative); Urine Protein 300 (3+) mg/dL (Neg-Trace)
[2022-08-01 22:33] VITALS: BP 181/62; PULSE 87; RESP 14; TEMP 37.8; O2SAT 95
[2022-08-01 22:51] LABS: Bacteria Urine None Seen (None Seen); Hyaline Casts Urine 0-2 /LPF (0-2); RBC Urine 0-2 /HPF (0-2); Squamous Epithelial Cell Urine 0-2 /HPF (0-2); WBC Urine 0-5 /HPF (0-5)
--- NOTE | 2022-08-01 23:24 | PC.NURSE ---
difficulty with sitting up, assisted no apparent distress requests coffee and crackers per MD given labs pending
--- NOTE | 2022-08-01 23:30 | PC.NURSE ---
pt able to tolerate crackers and coffee well with no nausea or other issues. This RN then got patient up to walk around the room. Pt ambulated well with no difficulty. MD aware at this time
== END 2022-08-01 23:55 | disposition home or self-care (01) ==
PROVIDERS: Physician Assistant; Emergency Provider Emergency Medicine Emergency Medical Services; PCP Internal Medicine
DX: B34.9 Viral infection, unspecified (principal); E86.0 Dehydration; R06.02 Shortness of breath; R94.31 Abnormal electrocardiogram [ECG] [EKG]; R53.1 Weakness; R51.9 Headache, unspecified; Z20.822 Contact with and (suspected) exposure to COVID-19; Z20.828 Contact with and (suspected) exposure to other viral communicable diseases; Z79.899 Other long term (current) drug therapy
CPT/HCPCS: 36415; 70450; 71045; 80053; 81001; 83605; 83735; 84484; 85025; 85379; 87040; 87635; 93005; 96360; 99284; 99285

== ENCOUNTER 2022-10-10 09:08 | Emergency (ER) | payer MEDICARE, OTHER, SELFPAY ==
--- NOTE | ~2022-10-10 | XR_ITS ---
EXAMINATION: XR CHEST CLINICAL INFORMATION: Cough. COMPARISON: August 01, 2022. TECHNIQUE: 2 views of the chest were obtained. XR/XR chest 2V FINDINGS/IMPRESSION: The pulmonary veins may be mildly prominent in the nondependent portions, raising the possibility of mild pulmonary venous hypertension, similar compared with August 01, 2022. No acute infiltrate, effusion, pneumothorax is seen. The heart appears normal in size. The patient appears to be status post CABG. There are degenerative changes of the shoulders, right worse than left. A partially imaged upper lumbar lower thoracic wedge compression deformity was present on June 27, 2022.
[2022-10-10 09:11] VITALS: BP 141/49; PULSE 70; RESP 20; TEMP 37.1; O2SAT 96; BMI 31.3
--- NOTE | 2022-10-10 09:26 | PC.NURSE ---
covid and strep swabs obtained
[2022-10-10 09:45] LABS: IDNOW Serial# 08D9AD1C; Strep A Nucleic Acid Negative (Negative)
[2022-10-10 09:50] LABS: IDNOW Serial# BCCEAD1C
[2022-10-10 09:51] LABS: COVID-19 Test Negative (Negative)
--- NOTE | 2022-10-10 10:22 | ED.URI ---
HPI - URI/Sore Throat General Chief Complaint: Upper Respiratory Symptoms Stated Complaint: not feeling well/ cant eat Time Seen by Provider: 10/10/22 09:35 Source: patient Mode of arrival: ambulatory Limitations: no limitations History of Present Illness HPI Narrative: 77-year-old male with history of CKD, DM 2 with polyneuropathy and retinopathy, cardiomyopathy, anxiety, GERD, CHF, aortic stenosis who presents to the ER for evaluation of Generalized fatigue /malaise, body aches, chills, sore throat and a dry cough for the past 2-3 days worse today. Reports that his grand some at home has similar symptoms. He denies any measured fevers, dizziness, headaches, neck pain/stiffness, trouble swallowing or breathing, chest pain or shortness of breath, dyspnea on exertion orthopnea, palpitations paresthesias, sputum production, nausea or vomiting, diarrhea, abdominal pain, back pain, flank pain, dysuria hematuria, lower extremity edema or calf tenderness, recent travel or any other sick contacts or any other symptoms complaints or concerns at this time. MD elicited complaint: cough, sore throat, rhinorrhea and nasal congestion Onset (ago): day(s) (2) Consistency: constant and progressively worsening Severity: mild Description of mucous: clear and watery Able to tolerate fluids by mouth: Yes Exacerbating factors: swallowing Relieving factors: nothing Context: sick contacts Associated symptoms: chills, myalgias, rhinorrhea, nasal congestion, sore throat and cough Treatments prior to arrival: none Related Data Home Medications Medication Instructions Recorded Confirmed 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 meter (OneTouch #1 ea 03/06/21 08/05/22 Verio Reflect Meter) ascorbic acid (vitamin C) 500 mg 500 mg PO DAILY 06/07/21 08/05/22 tablet cholecalciferol (vitamin D3) 25 25 mcg PO DAILY 06/07/21 08/05/22 mcg (1,000 unit) tablet dorzolamide 22.3 mg-timolol 6.8 1 drp ophthalmic (eye) BID 06/07/21 08/05/22 mg/mL eye drops guselkumab 100 mg/mL subcutaneous mg subcut 06/07/21 08/05/22 auto-injector (Tremfya) multivitamin 1 tab PO DAILY 06/07/21 08/05/22 Previous Rx's Medication Instructions Recorded lancets 28 gauge #300 ea 07/12/20 FreeStyle Lite Strips (blood sugar #300 ea 08/01/20 diagnostic) aspirin 81 mg tablet,delayed 81 mg PO DAILY #90 tabs 11/16/20 release acetaminophen 500 mg tablet 500 mg PO Q6H PRN pain or fever 01/30/21 (Tylenol Extra Strength) #20 tabs blood sugar diagnostic (OneTouch #100 ea 02/23/21 Verio test strips) 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 meter (OneTouch #1 ea 02/23/21 Verio IQ Meter kit) lancets 33 gauge (OneTouch Delica #100 ea 02/23/21 Plus Lancet) hydrocodone 5 mg-acetaminophen 325 1 tab PO Q4-6H PRN pain #5 tabs 09/17/21 mg tablet pen needle, diabetic 32 gauge x #400 ea 10/19/21 (BD Martina 2nd Gen Pen Needle) oseltamivir 75 mg capsule (Tamiflu) 75 mg PO Q12H 5 days #10 caps 03/09/22 amlodipine 10 mg tablet 10 mg PO DAILY #90 tabs 05/02/22 dulaglutide 1.5 mg/0.5 mL 1.5 mg (0.5 mL) subcut QWEEK #2 mL 05/02/22 subcutaneous pen injector (Trulicity) gabapentin 300 mg capsule 300 mg PO BEDTIME #90 caps 05/02/22 insulin degludec 100 unit/mL (3 18 unit (0.18 mL) subcut DAILY 90 05/02/22 mL) subcutaneous pen days #16.2 mL insulin lispro 100 unit/mL 5 - 9 unit (0.05 - 0.09 mL) subcut 05/02/22 subcutaneous pen (Humalog KwikPen TID 90 days #15 mL (U-100) Insulin) losartan 25 mg tablet 25 mg PO DAILY 90 days #90 tabs 05/02/22 metoprolol succinate 25 mg 25 mg PO DAILY #90 tabs 05/02/22 tablet,extended release 24 hr rosuvastatin 40 mg tablet 40 mg PO DAILY 90 days #90 tabs 06/10/22 blood sugar diagnostic (FreeStyle #150 ea 08/05/22 Lite Strips) 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 meter (FreeStyle #1 ea 08/05/22 [place] Lite kit) lancets 28 gauge (FreeStyle #100 ea 08/05/22 Lancets) azithromycin 250 mg tablet See Rx Instructions PO .COMPLEX #6 10/10/22 tabs benzonatate 100 mg capsule 100 mg PO BID PRN cough #14 caps 10/10/22 Allergies Allergy/AdvReac Type Severity Reaction Status Date / Time No Known Allergies Allergy Mild NONE Verified 08/05/22 10:36 Review of Systems Review of Systems: Constitutional : + Chills/fatigue/malaise,No Weight loss, No Fever, No Night Sweats ENT/Mouth : + sore throat /nasal congestion/ rhinorrhea, No Hearing loss, No Ear Pain, No Sinus Pain, No Hoarseness, No Swallowing Difficulty Eyes: No Eye Pain, No Swelling, No Redness, No Foreign Body, No Discharge, No Vision Changes Cardiovascular : No Chest Pain, No SOB, No Dyspnea on Exertion, No Orthopnea, No Edema, No Palpitations Respiratory : N+ Cough, No Sputum, No Wheezing, No Smoke Exposure, No Dyspnea Gastrointestinal : No Nausea, No Vomiting, No Diarrhea, No Constipation, No abdominal Pain, No Hematochezia, No Melena Genitourinary : no irregular bleeding, No Dysuria, No Urinary Frequency, No Hematuria, No Urinary Incontinence, No Urgency, No Flank Pain, No Urinary Flow Changes, No Hesitancy Musculoskeletal : No joint pain, + Myalgias, No Joint Swelling Skin : No Skin Lesions, No rash Neuro : No Weakness, No Numbness, No Paresthesias, No Loss of Consciousness, No Dizziness, No Headache Psych : No Anxiety/Panic, No Depression, No SI/HI/AH/VH, No Social Issues, Heme/Lymph: No Bruising, No Bleeding,No Lymphadenopathy Endocrine : No Polyuria, No Polydipsia, No Temperature Intolerance Yes all other systems are reviewed and are negative REPLACED BY [facility] Past Medical History Attestation statement: The following information was validated with the patient. Source: old records reviewed and nursing notes reviewed Medical History Acute hypoxemic respiratory failure due to COVID-19 Allergic rhinitis Aortic stenosis CAD (coronary artery disease) Cardiomyopathy Carotid artery stenosis CKD stage 3 due to type 2 diabetes mellitus Compression fracture of L1 lumbar vertebra Congestive heart failure Diabetic 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 diabetes mellitus Diabetic polyneuropathy associated with type 2 diabetes mellitus Diabetic retinopathy associated with type 2 diabetes mellitus Dyslipidemia Epidermoid cyst of skin of cheek GERD (gastroesophageal reflux disease) Glaucoma History of renal calculi Hypertension Iliac artery stenosis, bilateral Infective endocarditis Left carotid stenosis retirement (current) use of insulin Mass of face Overweight (BMI 25.0-29.9) Pneumonia due to COVID-19 virus Positive TB test Preoperative clearance Pulmonary nodule PVD (peripheral vascular disease) Renal insufficiency Respiratory tract infection Superficial abrasion Tobacco abuse Trigger finger, right middle finger Trigger finger, right middle finger Surgical History Hx of appendectomy Hx of arthroscopy of right knee Hx of cataract removal with insertion of prosthetic lens Hx of coronary artery bypass graft Hx of shoulder surgery Hx of tonsillectomy Family History Family History Father Stomach cancer Mother Diabetes Brother Prostate abscess Social History Social History Housing: Apartment Alcohol intake: current Alcohol intake frequency: holidays/special occasions only Patient Tobacco Use Status: Current everyday Tobacco user Tobacco use type: Cigarette Cigarette Packs Per Day: 0.25 Cigarettes Per Day: 3 e-Cigarette/Vaping Use: Never Used Second Hand Smoke Exposure: Yes Advance Directives: Yes Advance Directives on File: Yes Advance Directives Date on File: 06/08/21 service: No Current occupational status: 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 Cognitive needs: No Hearing needs: No Vision needs: No Physical Exam Vital Signs: Vital Signs: Last Vital Signs Temp 98.7 F 10/10/22 09:11 Pulse 70 10/10/22 09:11 Resp 20 10/10/22 09:11 BP 141/49 H 10/10/22 09:11 Pulse Ox 96 10/10/22 09:11 O2 Del Method Room Air 10/10/22 09:11 BMI result Body Mass Index 31.3 Vital signs reviewed. Blood pressure 141/49. Pulse normal. Respiration normal. Oxygen normal. Temperature normal. Appearance: Alert. Oriented X3. No acute distress. Head: Normal external exam. Normocephalic. Atraumatic. Eyes: PERRLA. EOMI. Conjunctiva and sclera normal. Eyelids normal. ENT: EAC normal. TM's Normal. Pharynx normal. Uvula midline. no exudate noted. No lymphadenopathy noted.Moist mucous membranes. No lesions/ulcerations or masses noted on the tongue. Normal voice. No trismus noted. No drooling noted. No muffled voice noted. Neck: Normal inspection. Neck supple. FROM. No adenopathy. Thyroid Normal. No meningeal signs. CVS: Normal heart rate and rhythm. Heart sound normal. Pulses normal throughout. No murmurs/rales/gallops. Respiratory: No respiratory distress. Painless inspiration. Breath sounds normal. No wheezes/rales/rhonchi noted. Chest nontender. No accessory muscle usage noted or decreased air movement noted. Abdomen: Soft and nontender. Back: Full range of motion noted. Nontender. Skin: Skin warm and dry. Normal skin color. Normal skin turgor. No rashes/lesions/lacerations noted. Extremities: No lower extremity edema noted. No calf tenderness is noted. Extremities exhibit normal range of motion and nontender. Neuro: Oriented X 3. No motor deficit. No sensory deficit. Reflexes normal. Normal steady gait. No focal neuro deficits noted. CN's II-XII intact bilaterally? Vascular: + radial pulses. Normal cap refill. No cyanosis noted to upper extremity nails Course Course Course Narrative: This patient presents with acute cough, most consistent with bronchitis. Differential diagnosis includes pharyngitis vs Viral vs COVID-19. Presentation not consistent with acute bacterial pneumonia, influenza, asthma, transient airway hyperresponsiveness. Presentation not consistent with chronic causes of cough (including GERD, asthma, postnasal discharge, medication side effect, CHF, lung cancer or mass). COVID/ strep negative. Chest x-ray obtained and negative for any acute processes only chronic changes. Therefore at this time patient most likely bronchitis due to patient's medical history will DC home with antibiotics and instructions return if any new or worsening symptoms follow up with primary care provider. Patient understands agrees with this plan. Medical Decision Making Differential Diagnosis Differential Diagnoses: The differential diagnosis associated with the presentation includes see course Lab Data MDM Lab Attestation statement: I reviewed the patient's lab results. Labs: Lab Results 10/10/22 10/10/22 Range/Units 09:20 09:20 COVID-19 ([facility]) Negative (Negative) COVID-19 Clin Com See Note S. pyogenes GrpA [place] Negative (Negative) Independent Interpretation I performed an independent interpretation of an: Plain X-Ray ( Chest x-ray reviewed by myself group with rest reports no acute findings only chronic changes no evidence of pneumonia or congestion/CHF agreeable with radiologist report) Radiology Impression Discussion of test interpretation with radiology: I have reviewed the radiologist's reading. Radiologist Impression: EXAMINATION: XR CHEST CLINICAL INFORMATION: Cough. COMPARISON: August 01, 2022. TECHNIQUE: 2 views of the chest were obtained. XR/XR chest 2V FINDINGS/IMPRESSION: ? The pulmonary veins may be mildly prominent in the nondependent portions, raising the possibility of mild pulmonary venous hypertension, similar compared with August 01, 2022. ? No acute infiltrate, effusion, pneumothorax is seen. ? The heart appears normal in size. The patient appears to be status post CABG. ? There are degenerative changes of the shoulders, right worse than left. A partially imaged upper lumbar lower thoracic wedge compression deformity was present on June 27, 2022. External Record Review External record reviewed: Inpatient record, Office record, Outpatient record, Prior outpatient labs, Prior outpatient radiology, Primary care record and Outside ED record all prior labs/imaging / EKG that are accessible in our system reviewed by myself including patient's last visit here where he was seen here for similar symptoms Tests considered The following testing was considered but not selected: labs were considered although not indicated as patient does not have any other symptoms Prescription Management I considered prescription management with: Antibiotic Chronic Conditions Patient?s care impacted by: Diabetes and Hypertension Social Determinants Patient?s care significantly limited by Social Determinants of Health including: Low income and Other Social Determinant of Health Discharge Plan Discharge Clinical Impression: Bronchitis Patient Disposition: Home, Self-Care Instructions: Acute Bronchitis (ED) Prescriptions: New azithromycin 250 mg tablet See Rx Instructions PO .COMPLEX Qty: 6 0RF Rx Instructions: take 500 mg today (day 1), then 250 mg for 4 days (days 2-5) benzonatate 100 mg capsule 100 mg PO BID PRN (Reason: cough) Qty: 14 0RF No Action aspirin 81 mg tablet,delayed release (DR/EC) 81 mg PO DAILY Qty: 90 3RF (DME) 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 meter [OneTouch Verio IQ Meter] Kit See Rx Instructions .Route Qty: 1 0RF Rx Instructions: As directed 3x/day (DME) OneTouch Verio test strips Strip See Rx Instructions .ROUTE .MEDSUPPLY Qty: 100 11RF Rx Instructions: Three times a day (DME) lancets [OneTouch Delica Plus Lancet] 33 gauge misc See Rx Instructions .Route Qty: 100 11RF Rx Instructions: As directed 3x/day (DME) pen needle, diabetic [BD Martina 2nd Gen Pen Needle] 32 gauge x 5/32 needle See Rx Instructions .MEDSUPPLY Qty: 400 4RF Rx Instructions: 5 times a day gabapentin 300 mg capsule 300 mg PO BEDTIME Qty: 90 2RF rosuvastatin 40 mg tablet 40 mg PO DAILY 90 Days Qty: 90 3RF hydrocodone-acetaminophen 5-325 mg tablet 1 tab PO Q4-6H PRN (Reason: pain) Qty: 5 0RF Rx Instructions: Partial Fill upon patient request. acetaminophen [Tylenol Extra Strength] 500 mg tablet 500 mg PO Q6H PRN (Reason: pain or fever) Qty: 20 0RF dorzolamide-timolol 22.3-6.8 mg/mL drops 1 drp ophthalmic (eye) BID Tremfya 100 mg/mL auto-injector subcut multivitamin Tablet 1 tab PO DAILY ascorbic acid (vitamin C) 500 mg Tablet 500 mg PO DAILY cholecalciferol (vitamin D3) 25 mcg (1,000 unit) Tablet 25 mcg PO DAILY oseltamivir [Tamiflu] 75 mg capsule 75 mg PO Q12H 5 Days Qty: 10 0RF (DME) FreeStyle Lite Strips Strip See Rx Instructions .ROUTE .MEDSUPPLY Qty: 150 11RF Rx Instructions: As directed four times a day (DME) 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 meter [FreeStyle [place] Lite] Kit See Rx Instructions .ROUTE .MEDSUPPLY Qty: 1 0RF Rx Instructions: As directed (DME) lancets [FreeStyle Lancets] 28 gauge misc See Rx Instructions .ROUTE .MEDSUPPLY Qty: 100 3RF Rx Instructions: As directed check BS QD amlodipine 10 mg tablet 10 mg PO DAILY Qty: 90 3RF losartan 25 mg tablet 25 mg PO DAILY 90 Days Qty: 90 1RF metoprolol succinate 25 mg tablet extended release 24 hr 25 mg PO DAILY Qty: 90 1RF Trulicity 1.5 mg/0.5 mL pen injector 1.5 mg subcut QWEEK Qty: 2 11RF insulin degludec 100 unit/mL (3 mL) insulin pen 18 unit subcut DAILY 90 Days Qty: 16.2 2RF insulin lispro [Humalog KwikPen Insulin] 100 unit/mL insulin pen 5 - 9 unit subcut TID 90 Days Qty: 15 2RF Rx Instructions: before meals as directed (DME) FreeStyle Lite Strips Strip See Rx Instructions Not Applicable BID Qty: 300 3RF Rx Instructions: 3 times a day (DME) lancets 28 gauge misc See Rx Instructions Not Applicable BID Qty: 300 3RF Rx Instructions: 3 times a day (DME) 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 meter [OneTouch Verio Reflect Meter] Misc See Rx Instructions .ROUTE .MEDSUPPLY Qty: 1 Rx Instructions: As directed Referrals: Marcia Clements MD [Primary Care Provider] - 2 days
[2022-10-10] MEDS: Benzonatate 100 MG CAPSULE 200 MG PO (10:52)
[2022-10-10] MEDS: Azithromycin 500 MG TABLET PO (10:52)
--- NOTE | 2022-10-10 10:54 | PC.NURSE ---
medication administered per provider order.
== END 2022-10-10 10:55 | disposition home or self-care (01) ==
PROVIDERS: Emergency Provider Emergency Medicine; PCP Internal Medicine
DX: J40 Bronchitis, not specified as acute or chronic (principal); Z20.822 Contact with and (suspected) exposure to COVID-19; J02.9 Acute pharyngitis, unspecified
CPT/HCPCS: 71046; 87635; 87651; 99282; 99283

== ENCOUNTER 2022-10-15 06:29 | Emergency (ER) | payer MEDICARE, SELFPAY ==
--- NOTE | ~2022-10-15 | XR_ITS ---
EXAMINATION: XR CHEST CLINICAL INFORMATION: Shortness of breath. COMPARISON: 10/10/2022 chest radiographs. TECHNIQUE: 2 views of the chest were obtained. FINDINGS: Mild prominence of the pulmonary vasculature is again seen without significant change. The heart and mediastinal structures are unremarkable. Multilevel sternotomy wires are intact. XR/XR chest 2V IMPRESSION: Mild prominence of the pulmonary vasculature is similar to the previous study and may be projectional/baseline for the patient. No definitive new abnormality.
[2022-10-15 06:43] VITALS: BP 149/56; PULSE 73; RESP 20; TEMP 36.7; O2SAT 95; BMI 31.1
[2022-10-15 07:10] VITALS: BP 160/64; PULSE 70; RESP 20; TEMP 36.4; O2SAT 98
--- NOTE | 2022-10-15 07:50 | ED_ITS ---
HPI - General Adult General Chief complaint: Dyspnea Stated complaint: Sob/Cough Time Seen by Provider: 10/15/22 07:46 Source: patient Mode of arrival: ambulatory Limitations: no limitations History of Present Illness HPI narrative: Patient is a 77-year-old male with history of CKD, T2DM, with retinopathy and polyneuropathy, cardiomyopathy, GERD, CHF, aortic stenosis, and anxiety presenting to the emergency department with complaint of ongoing cough and nasal congestion as well as generalized body aches. Was seen in this ED on 10/10/22 and diagnosed with bronchitis, discharged home on azithromycin and benzonatate. States cough has persisted. Denies fevers. Does report diarrhea yesterday. Denies abdominal pain, nausea, vomiting, constipation. Denies sore throat or ear pain. Denies chest pain. Denies any lower extremity edema, calf swelling or tenderness. MD complaint: cough Onset (ago): day(s) Location: chest Radiation: non-radiation Associated symptoms: other (diarrhea, nasal congestion) Treatments prior to arrival: other (azithromycin, benzonatate) Related Data Home Medications Medication Instructions Recorded Confirmed 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 meter (OneTouch #1 ea 03/06/21 08/05/22 Verio Reflect Meter) ascorbic acid (vitamin C) 500 mg 500 mg PO DAILY 06/07/21 08/05/22 tablet cholecalciferol (vitamin D3) 25 25 mcg PO DAILY 06/07/21 08/05/22 mcg (1,000 unit) tablet dorzolamide 22.3 mg-timolol 6.8 1 drp ophthalmic (eye) BID 06/07/21 08/05/22 mg/mL eye drops guselkumab 100 mg/mL subcutaneous mg subcut 06/07/21 08/05/22 auto-injector (Tremfya) multivitamin 1 tab PO DAILY 06/07/21 08/05/22 Previous Rx's Medication Instructions Recorded lancets 28 gauge #300 ea 07/12/20 FreeStyle Lite Strips (blood sugar #300 ea 08/01/20 diagnostic) aspirin 81 mg tablet,delayed 81 mg PO DAILY #90 tabs 11/16/20 release acetaminophen 500 mg tablet 500 mg PO Q6H PRN pain or fever 01/30/21 (Tylenol Extra Strength) #20 tabs blood sugar diagnostic (OneTouch #100 ea 02/23/21 Verio test strips) 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 meter (OneTouch #1 ea 02/23/21 Verio IQ Meter kit) lancets 33 gauge (OneTouch Delica #100 ea 02/23/21 Plus Lancet) hydrocodone 5 mg-acetaminophen 325 1 tab PO Q4-6H PRN pain #5 tabs 09/17/21 mg tablet pen needle, diabetic 32 gauge x #400 ea 10/19/2132 (BD Martina 2nd Gen Pen Needle) oseltamivir 75 mg capsule (Tamiflu) 75 mg PO Q12H 5 days #10 caps 03/09/22 amlodipine 10 mg tablet 10 mg PO DAILY #90 tabs 05/02/22 dulaglutide 1.5 mg/0.5 mL 1.5 mg (0.5 mL) subcut QWEEK #2 mL 05/02/22 subcutaneous pen injector ([employer] gabapentin 300 mg capsule 300 mg PO BEDTIME #90 caps 05/02/22 insulin degludec 100 unit/mL (3 18 unit (0.18 mL) subcut DAILY 90 05/02/22 mL) subcutaneous pen days #16.2 mL insulin lispro 100 unit/mL 5 - 9 unit (0.05 - 0.09 mL) subcut 05/02/22 subcutaneous pen (Humalog KwikPen TID 90 days #15 mL (U-100) Insulin) losartan 25 mg tablet 25 mg PO DAILY 90 days #90 tabs 05/02/22 metoprolol succinate 25 mg 25 mg PO DAILY #90 tabs 05/02/22 tablet,extended release 24 hr rosuvastatin 40 mg tablet 40 mg PO DAILY 90 days #90 tabs 06/10/22 blood sugar diagnostic (FreeStyle #150 ea 08/05/22 Lite Strips) 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 meter (FreeStyle #1 ea 08/05/22 [place] Lite kit) lancets 28 gauge (FreeStyle #100 ea 08/05/22 Lancets) azithromycin 250 mg tablet See Rx Instructions PO .COMPLEX #6 10/10/22 tabs benzonatate 100 mg capsule 100 mg PO BID PRN cough #14 caps 10/10/22 benzonatate 100 mg capsule 100 mg PO TID PRN cough #20 caps 10/15/22 Allergies Allergy/AdvReac Type Severity Reaction Status Date / Time No Known Allergies Allergy Mild NONE Verified 08/05/22 10:36 Review of Systems Review of Systems: As per HPI. Yes all other systems are reviewed and are negative Constitutional: Constitutional: Reports as per HPI [facility] Past Medical History Medical History Acute hypoxemic respiratory failure due to COVID-19 Allergic rhinitis Aortic stenosis CAD (coronary artery disease) Cardiomyopathy Carotid artery stenosis CKD stage 3 due to type 2 diabetes mellitus Compression fracture of L1 lumbar vertebra Congestive heart failure Diabetic 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 diabetes mellitus Diabetic polyneuropathy associated with type 2 diabetes mellitus Diabetic retinopathy associated with type 2 diabetes mellitus Dyslipidemia Epidermoid cyst of skin of cheek GERD (gastroesophageal reflux disease) Glaucoma History of renal calculi Hypertension Iliac artery stenosis, bilateral Infective endocarditis Left carotid stenosis [facility] (current) use of insulin Mass of face Overweight (BMI 25.0-29.9) Pneumonia due to COVID-19 virus Positive TB test Preoperative clearance Pulmonary nodule PVD (peripheral vascular disease) Renal insufficiency Respiratory tract infection Superficial abrasion Tobacco abuse Trigger finger, right middle finger Trigger finger, right middle finger Surgical History Hx of appendectomy Hx of arthroscopy of right knee Hx of cataract removal with insertion of prosthetic lens Hx of coronary artery bypass graft Hx of shoulder surgery Hx of tonsillectomy Family History Family History Father Stomach cancer Mother Diabetes Brother Prostate abscess Social History Social History Housing: Apartment Alcohol intake: never Patient Tobacco Use Status: Current everyday Tobacco user Tobacco use type: Cigarette Cigarette Packs Per Day: 0.25 Cigarettes Per Day: 3 Smoked in Last 30 Days: Yes e-Cigarette/Vaping Use: Never Used Second Hand Smoke Exposure: Yes Use of substances other than those prescribed or required for medical reasons: No Advance Directives: Yes Advance Directives on File: Yes Advance Directives Date on File: 06/08/21 service: No Current occupational status: 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 Cognitive needs: No Hearing needs: No Vision needs: No Physical Exam ED Vital Signs: Vital Signs - 24 hr 10/15/22 06:43 10/15/22 07:10 10/15/22 08:00 Temperature 98.0 F 97.5 F 98.0 F Pulse Rate 73 70 68 Respiratory Rate 20 20 18 Blood Pressure 149/56 H 160/64 H 164/45 H Pulse Oximetry 95 98 95 Oxygen Delivery Method Room Air Room Air Room Air 10/15/22 08:12 10/15/22 10:00 10/15/22 11:05 Temperature 98.3 F Pulse Rate 69 66 62 Respiratory Rate 16 16 18 Blood Pressure 143/63 H 152/62 H Pulse Oximetry 95 98 Oxygen Delivery Method Room Air Room Air BMI result Body Mass Index 31.1 Vital signs have been reviewed and appear to be correct. Blood pressure elevated. Heart rate normal. Respiratory rate normal. Temperature normal. Oxygen saturation normal. Const General: cooperative, healthy appearing and no acute distress Orientation/consciousness: oriented to person, oriented to place, oriented to time and patient oriented x3 Limitations: no limitations HENMT Head: Yes normocephalic and Yes atraumatic Ears: external ears normal General nose exam: Normal external nose present Face and sinus: Yes face symmetric Mouth: oropharynx normal and moist mucous membranes Throat: Yes uvula midline Eyes Pupils: Equal, round and reactive pupils present Neck Neck: Yes normal visual inspection and Yes supple Resp Effort & Inspection: normal respiratory effort and able to speak in complete sentences Auscultation: crackles on the left in the upper lung sims and diminished lung sounds diffuse Cardio Rate: regular rate Rhythm: regular rhythm Heart sounds: S1 normal heart sound present and S2 normal heart sound present GI Palpation (GI): Soft to palpation and nontender Auscultation: normoactive bowel sounds General: Yes no CVA tenderness Back/Spine/Pelvis Back: no CVA tenderness Skin General skin exam: elasticity normal and turgor normal Neuro General: oriented to person, oriented to place, oriented to time, patient oriented x3, moves all extremities, no focal motor deficits and CN's II-XI i ntact bilaterally Cranial nerves: Yes Equal, round and reactive pupils present Cognition (Neuro): normal cognition Extrem General: Yes full ROM, Yes no pedal edema and Yes no calf tenderness Psych Mental Status: mental status grossly normal Affect: normal affect Thought process: Normal thought process present Medications Administered Discontinued Medications Generic Name Dose Route Start Last Admin Trade Name Freq PRN Reason Stop Dose Admin Acetaminophen 650 mg 10/15/22 08:01 10/15/22 08:25 Acetaminophen 325 Mg Tablet PO 10/15/22 08:02 650 mg ONCE ONE Administration Albuterol Sulfate 2.5 mg 10/15/22 08:01 10/15/22 08:10 Albuterol Sulfate (0.083%) 2.5 Mg/3 Ml Vial.Neb INHALE 10/15/22 08:02 2.5 mg ONCE ONE Administration Medical Decision Making Medical Decision Making [facility] Narrative: 07:59 Patient is a 77-year-old male with history of CKD, T2DM, with retinopathy and polyneuropathy, cardiomyopathy, GERD, CHF, aortic stenosis, and anxiety presenting to the emergency department with complaint of ongoing cough and nasal congestion as well as generalized body aches. On exam patient is awake, A+Ox3, BP elevated, VS otherwise WNL, afebrile, normal neurological exam without focal deficits, LS diminished throughout with BRIAN crackles. Given reported symptoms and physical exam findings, initial differential includes pneumonia, viral upper respiratory infection. Less likely CHF but will obtain BNP. Labs notable for dop in H&H, no leukocytosis, BUN consistent with baseline, liver enzymes elevated raising suspicion for viral cause of symptoms. BNP mildly elevated, has been similar in the past. X-ray notable for no new findings. My interpretation is in agreement with the radiologist's interpretation. Will perform rectal exam to assess for GI bleed as cause of weakness. Patient denies any rectal bleeding or dark, tarry stool and states my blood is always low. Patient ambulated on room air, was able to maintain O2 sat of 97-98%. OBS negative. Discussed case with Dr. Fabian who agrees patient is stable for discharge home with PCP follow up and repeat labs within a week. Feel cough is likely viral. Will discharge patient home, instructed him to contact PCP today for follow up appointment within one week. All results discussed and questions answered. Return precautions discussed at bedside. Patient verbalized understanding of and agreement with plan. Patient reports he is out of b enzonatate, will prescribe more. Differential Diagnosis Differential Diagnoses: The differential diagnosis associated with the presentation includes As per MDM. Admission/Observation Consideration of admission/observation: Escalation of care including admission/observation considered Consult Healthcare Provider Dr. Fabian Lab Data [facility] Lab Attestation statement: I reviewed the patient's lab results. As per MDM. 10/15/22 07:26 Labs: Lab Results 10/15/22 10/15/22 10/15/22 Range/Units 07:26 07:26 07:26 WBC 8.1 (4.8-10.8) X10*3/uL RBC 3.29 L (4.60-5.80) X10*6/uL Hgb 10.4 L (14.0-18.0) g/dl Hct 31.1 L (42.0-52.0) % MCV 94.5 (80.0-98.0) fL MCH 31.6 (27.0-33.0) pg MCHC 33.4 (31.0-36.0) g/dl RDW 13.2 (11.0-16.0) % Plt Count 141 L (160-400) X10*3/uL MPV 10.6 (9.4-12.4) fL Absolute Nucleated RBC 0.000 (0.0-0.012) X10*3/uL Nucleated RBC % (auto) 0.0 (0.0-0.2) /100WBC Sodium 141 (135-145) mmol/L Potassium 4.3 (3.3-5.1) mmol/L Chloride 109 H (96-108) mmol/L Carbon Dioxide 28 (22-29) mmol/L Anion Gap 8 L (12-20) BUN 21 H (9-16) mg/dL Creatinine 1.33 (0.5-1.4) mg/dL Estim Creat Clear Calc 48.9 Estimated GFR 52 Random Glucose 256 H (60-115) mg/dL Calcium 8.9 (8.4-10.2) mg/dL Total Bilirubin 0.3 (0.0-1.0) mg/dL AST 49 H (5-37) U/L ALT 70 H (0-40) U/L Alkaline Phosphatase 96 (39-117) U/L B-Natriuretic Peptide (<100) pg/mL Total Protein 6.8 (6.5-8.0) g/dL Albumin 3.3 L (3.5-5.0) g/dL Stool Occult Blood (NEGATIVE) Influenza Type A (PCR) NEGATIVE (Negative) Influenza Type B (PCR) NEGATIVE (Negative) RSV RNA Qual (PCR) NEGATIVE (Negative) SARS-CoV-2 RNA (RT-PCR) NEGATIVE (Negative) 10/15/22 10/15/22 Range/Units 07:26 12:02 WBC (4.8-10.8) X10*3/uL RBC (4.60-5.80) X10*6/uL Hgb (14.0-18.0) g/dl Hct (42.0-52.0) % MCV (80.0-98.0) fL MCH (27.0-33.0) pg MCHC (31.0-36.0) g/dl RDW (11.0-16.0) % Plt Count (160-400) X10*3/uL MPV (9.4-12.4) fL Absolute Nucleated RBC (0.0-0.012) X10*3/uL Nucleated RBC % (auto) (0.0-0.2) /100WBC Sodium (135-145) mmol/L Potassium (3.3-5.1) mmol/L Chloride (96-108) mmol/L Carbon Dioxide (22-29) mmol/L Anion Gap (12-20) BUN (9-16) mg/dL Creatinine (0.5-1.4) mg/dL Estim Creat Clear Calc Estimated GFR Random Glucose (60-115) mg/dL Calcium (8.4-10.2) mg/dL Total Bilirubin (0.0-1.0) mg/dL AST (5-37) U/L ALT (0-40) U/L Alkaline Phosphatase (39-117) U/L B-Natriuretic Peptide 324 H (<100) pg/mL Total Protein (6.5-8.0) g/dL Albumin (3.5-5.0) g/dL Stool Occult Blood NEGATIVE (NEGATIVE) Influenza Type A (PCR) (Negative) Influenza Type B (PCR) (Negative) RSV RNA Qual (PCR) (Negative) SARS-CoV-2 RNA (RT-PCR) (Negative) Independent Interpretation I performed an independent interpretation of an: Plain X-Ray Interpretation: No new abnormality on CXR. Radiology Impression Discussion of test interpretation with radiology: I have reviewed the radiologist's reading. Radiologist Impression: FINDINGS: Mild prominence of the pulmonary vasculature is again seen without significant change. The heart and mediastinal structures are unremarkable. Multilevel sternotomy wires are intact. XR/XR chest 2V IMPRESSION: Mild prominence of the pulmonary vasculature is similar to the previous study and may be projectional/baseline for the patient. No definitive new abnormality. External Record Review External record reviewed: Inpatient record, Office record and Outpatient record Prescription Management I considered prescription management with: Other (benzonatate) Discharge Plan Discharge Clinical Impression: Viral upper respiratory infection, Cough Patient Disposition: Home, Self-Care Instructions: Upper Respiratory Infection (ED), Acute Cough (ED) Additional Instructions: You were evaluated in the emergency department today for cough. Your chest x- ray did not show evidence of a pneumonia. Your cough is most likely due to a viral illness which will improve on its own with rest and fluids. You are being prescribed additional benzonatate for cough. Please schedule an appointment for follow-up with your primary care physician within 2 days. Return to the emergency department if you experience worsening cough, fever 100.4? F or greater, recurrent vomiting, chest pain, shortness of breath, or any other concerning symptoms. PLEASE CALL YOUR PRIMARY CARE PROVIDER TODAY FOR A FOLLOW UP APPOINTMENT. YOU WILL NEED REPEAT LABS WITHIN ONE WEEK. Prescriptions: New benzonatate 100 mg capsule 100 mg PO TID PRN (Reason: cough) Qty: 20 0RF No Action aspirin 81 mg tablet,delayed release (DR/EC) 81 mg PO DAILY Qty: 90 3RF (DME) 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 meter [OneTouch Verio IQ Meter] Kit See Rx Instructions .Route Qty: 1 0RF Rx Instructions: As directed 3x/day (DME) OneTouch Verio test strips Strip See Rx Instructions .ROUTE .MEDSUPPLY Qty: 100 11RF Rx Instructions: Three times a day (DME) lancets [OneTouch Delica Plus Lancet] 33 gauge misc See Rx Instructions .Route Qty: 100 11RF Rx Instructions: As directed 3x/day (DME) pen needle, diabetic [BD Martina 2nd Gen Pen Needle] 32 gauge x 5/32 needle See Rx Instructions .MEDSUPPLY Qty: 400 4RF Rx Instructions: 5 times a day gabapentin 300 mg capsule 300 mg PO BEDTIME Qty: 90 2RF rosuvastatin 40 mg tablet 40 mg PO DAILY 90 Days Qty: 90 3RF hydrocodone-acetaminophen 5-325 mg tablet 1 tab PO Q4-6H PRN (Reason: pain) Qty: 5 0RF Rx Instructions: Partial Fill upon patient request. acetaminophen [Tylenol Extra Strength] 500 mg tablet 500 mg PO Q6H PRN (Reason: pain or fever) Qty: 20 0RF dorzolamide-timolol 22.3-6.8 mg/mL drops 1 drp ophthalmic (eye) BID Tremfya 100 mg/mL auto-injector subcut multivitamin Tablet 1 tab PO DAILY ascorbic acid (vitamin C) 500 mg Tablet 500 mg PO DAILY cholecalciferol (vitamin D3) 25 mcg (1,000 unit) Tablet 25 mcg PO DAILY oseltamivir [Tamiflu] 75 mg capsule 75 mg PO Q12H 5 Days Qty: 10 0RF azithromycin 250 mg tablet See Rx Instructions PO .COMPLEX Qty: 6 0RF Rx Instructions: take 500 mg today (day 1), then 250 mg for 4 days (days 2-5) benzonatate 100 mg capsule 100 mg PO BID PRN (Reason: cough) Qty: 14 0RF (DME) FreeStyle Lite Strips Strip See Rx Instructions .ROUTE .MEDSUPPLY Qty: 150 11RF Rx Instructions: As directed four times a day (DME) 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 meter [FreeStyle [place] Lite] Kit See Rx Instructions .ROUTE .MEDSUPPLY Qty: 1 0RF Rx Instructions: As directed (DME) lancets [FreeStyle Lancets] 28 gauge misc See Rx Instructions .ROUTE .MEDSUPPLY Qty: 100 3RF Rx Instructions: As directed check BS QD amlodipine 10 mg tablet 10 mg PO DAILY Qty: 90 3RF losartan 25 mg tablet 25 mg PO DAILY 90 Days Qty: 90 1RF metoprolol succinate 25 mg tablet extended release 24 hr 25 mg PO DAILY Qty: 90 1RF Trulicity 1.5 mg/0.5 mL pen injector 1.5 mg subcut QWEEK Qty: 2 11RF insulin degludec 100 unit/mL (3 mL) insulin pen 18 unit subcut DAILY 90 Days Qty: 16.2 2RF insulin lispro [Humalog KwikPen Insulin] 100 unit/mL insulin pen 5 - 9 unit subcut TID 90 Days Qty: 15 2RF Rx Instructions: before meals as directed (DME) FreeStyle Lite Strips Strip See Rx Instructions Not Applicable BID Qty: 300 3RF Rx Instructions: 3 times a day (DME) lancets 28 gauge misc See Rx Instructions Not Applicable BID Qty: 300 3RF Rx Instructions: 3 times a day (DME) 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 meter [OneTouch Verio Reflect Meter] Misc See Rx Instructions .[facility]OUTE [facility] Q[facility]: 1 Rx Instructions: As directed
[2022-10-15 08:00] VITALS: BP 164/45; PULSE 68; RESP 18; TEMP 36.7; O2SAT 95
[2022-10-15 08:00] LABS: Alanine Aminotransferase 70 U/L (0-40); Albumin Level 3.3 g/dL (3.5-5.0); Alkaline Phosphatase 96 U/L (39-117); Anion Gap 8 (12-20); Aspartate Amino Transferase 49 U/L (5-37); Bilirubin Total 0.3 mg/dL (0.0-1.0); Blood Urea Nitrogen 21 mg/dL (9-16); Calcium 8.9 mg/dL (8.4-10.2); Carbon Dioxide 28 mmol/L (22-29); Chloride 109 mmol/L (96-108); Creatinine Clr Calc Pharmacy 48.9; Estimated Glomerular Filt Rate 52; Glucose Random 256 mg/dL (60-115); Potassium 4.3 mmol/L (3.3-5.1); Sodium 141 mmol/L (135-145); Total Protein 6.8 g/dL (6.5-8.0)
--- NOTE | 2022-10-15 08:04 | PC.NURSE ---
pt a&ox3, vss, nsr on the groundwater monitoring technician, XR bedside taking pt - will return to room for admission questions when he returns.
[2022-10-15] MEDS: Albuterol Sulfate (0.083%) 2.5 MG/3 ML VIAL.NEB INHALE (08:10)
[2022-10-15 08:12] VITALS: PULSE 69; RESP 16; O2SAT 97
[2022-10-15 08:13] LABS: Hematocrit 31.1 % (42.0-52.0); Hemoglobin 10.4 g/dl (14.0-18.0); Mean Corpuscular HGB Conc 33.4 g/dl (31.0-36.0); Mean Corpuscular Hemoglobin 31.6 pg (27.0-33.0); Mean Corpuscular Volume 94.5 fL (80.0-98.0); Mean Platelet Volume 10.6 fL (9.4-12.4); Platelet Count 141 X10*3/uL (160-400); Red Blood Count 3.29 X10*6/uL (4.60-5.80); Red Cell Distribution Width 13.2 % (11.0-16.0); White Blood Count 8.1 X10*3/uL (4.8-10.8)
[2022-10-15 08:19] LABS: Influenza A PCR NEGATIVE (Negative); Influenza B PCR NEGATIVE (Negative); Resp Syncy Virus RNA Qual PCR NEGATIVE (Negative); SARS COV2 PCR INHOUSE NEGATIVE (Negative)
[2022-10-15] MEDS: Acetaminophen 325 MG TABLET 650 MG PO (08:25)
--- NOTE | 2022-10-15 08:28 | PC.NURSE ---
pt reporting 5/10 pain all over his body. medicated per MD order. pt repositioned.
[2022-10-15 08:37] LABS: B Type Natriuretic Peptide 324 pg/mL (<100)
[2022-10-15 10:00] VITALS: BP 143/63; PULSE 66; RESP 16; TEMP 36.8; O2SAT 95
[2022-10-15 11:05] VITALS: BP 152/62; PULSE 62; RESP 18; O2SAT 98
--- NOTE | 2022-10-15 11:06 | PC.NURSE ---
pt a&ox3, vss, pt nsr on the cafeteria monitor w/ occasional PVC's, pt verbalizing 0 pain, call mora placed within reach.
--- NOTE | 2022-10-15 11:46 | PC.NURSE ---
rectal exam performed by provider
[2022-10-15 12:13] LABS: OBS Int Ctl Valid YES; OBS1 NEGATIVE (NEGATIVE)
--- NOTE | 2022-10-15 13:03 | MHC.EDTECH ---
Ambulated patient around the Emergency Department monitoring his oxygen. O2 Saturation was 97%. Sheila Overton
== END 2022-10-15 13:15 | disposition home or self-care (01) ==
PROVIDERS: Registered Nurse Emergency; Emergency Provider Emergency Medicine; PCP Internal Medicine
DX: J06.9 Acute upper respiratory infection, unspecified (principal); R05.9 Cough, unspecified; Z20.822 Contact with and (suspected) exposure to COVID-19; Z20.828 Contact with and (suspected) exposure to other viral communicable diseases; E11.22 Type 2 diabetes mellitus with diabetic chronic kidney disease; I13.0 Hypertensive heart and chronic kidney disease with heart failure and stage 1 through stage 4 chronic kidney disease, or unspecified chronic kidney disease; N18.30 Chronic kidney disease, stage 3 unspecified; I50.9 Heart failure, unspecified; E78.5 Hyperlipidemia, unspecified; F17.210 Nicotine dependence, cigarettes, uncomplicated; Z79.4 Long term (current) use of insulin; Z79.899 Other long term (current) drug therapy
CPT/HCPCS: 0241U; 71046; 80053; 82272; 83880; 85027; 94640; 99284; 99285

== ENCOUNTER 2022-10-22 14:46 | Outpatient (AMB) | payer MEDICARE, SELFPAY ==
--- NOTE | 2022-10-22 14:49 | A.OFFPC_ITS ---
Vital Signs 10/22/22 14:51 Height 5 ft 7 in Weight 197 lb 2 oz BMI 30.9 BP 130/68 Blood Pressure Location Lt brachial Position Sitting Pulse 79 Pulse Source Pulse Oximeter Pulse Oximetry (%) 95 Oxygen Delivery Method Room Air Int[place] [facility] [place]: Patient is here to follow-up after a [place] [facility] [place] Medical Laboratory Specialist Required: No Medical Laboratory Specialist Name: Pilar Ac Information Interpreted: non-clinical & clinical Sales Enablement Consultant: Present Accompanied by: Spouse Allergies No Known Allergies Allergy (Mild, Verified 10/22/22 14:50) NONE Tobacco use date assessed: 10/22/22 Fall risk assessment: No Falls in past year Last assessed Fall Risk: 10/22/22 Dental Screening Dental Screen Date: 10/22/22 Did you have a dental visit in the last 12 months?: Yes Did you have a dental problem in the last 6 months where you did not have access to dental care?: No Was dental information given to patient?: Patient has dentist HPI HPI Comments History of Present Illness Details 77-year-old male past history significant for depression, type 2 diabet es mellitus, CKD stage 3, CAD, hypertension, dyslipidemia, CHF, cardiomyopathy, aortic stenosis and GERD. Patient of Dr. Clements presents today for ER follow up . Patient reported to the [facility] ER generalized fatigue, malaise body aches chills and sore throat and dry cough for 2-3 days. Patient was negative for COVID, flu and RSV, strep negative. Chest x-ray showed FINDINGS /IMPRESSION:The pulmonary veins may be mildly prominent in the nondependent portions, raising the possibility of mild pulmonary venous hypertension, similar compared with August 01, 2022.No acute infiltrate, effusion, pneumothorax is seen. Patient was treated with benzonatate Perles and azithromycin for bronchitis and discharged home. Patient subsequently returned to the emergency room on 10/15/2022. BNP mildly elevated at 324, x-ray showed note new finding, H&H did drop from previous to 10.4/32.0, OBS negative, patient was satting 97-98% on room air, fell cough is likely viral patient was discharged home and advised to follow-up pcp for repeat labs. Patient states had a fever again this morning and coughing too much with sob and wheezing. Denies any urinary frequency, hesitancy and dysuria. Given patient keeps having recurrent fevers will complete urinalysis to rule out UTI. Follow- up CBC, CMP and BNP ordered. Patient states has previously required prednisone in the past for bronchitis last year. [facility] Medical History Acute hypoxemic respiratory failure due to COVID-19 Allergic rhinitis Aortic stenosis CAD (coronary artery disease) Cardiomyopathy Carotid artery stenosis CKD stage 3 due to type 2 diabetes mellitus Compression fracture of L1 lumbar vertebra Congestive heart failure Diabetic 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 diabetes mellitus Diabetic polyneuropathy associated with type 2 diabetes mellitus Diabetic retinopathy associated with type 2 diabetes mellitus Dyslipidemia Epidermoid cyst of skin of cheek GERD (gastroesophageal reflux disease) Glaucoma History of renal calculi Hypertension Iliac artery stenosis, bilateral Infective endocarditis Left carotid stenosis 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 Mass of face Overweight (BMI 25.0-29.9) Pneumonia due to COVID-19 virus Positive TB test Preoperative clearance Pulmonary nodule PVD (peripheral vascular disease) Renal insufficiency Respiratory tract infection Superficial abrasion Tobacco abuse Trigger finger, right middle finger Trigger finger, right middle finger Surgical History Hx of appendectomy Hx of arthroscopy of right knee Hx of cataract removal with insertion of prosthetic lens Hx of coronary artery bypass graft Hx of shoulder surgery Hx of tonsillectomy Family History Father Stomach cancer Mother Diabetes Brother Prostate abscess Social History (Updated 10/22/22 @ 14:59 by ALEX Gant) Housing: Apartment Alcohol intake: never Patient Tobacco Use Status: Former Tobacco user Tobacco use type: Cigarette Cigarette Packs Per Day: 0.25 Cigarettes Per Day: 3 e-Cigarette/Vaping Use: Never Used Second Hand Smoke Exposure: Yes Advance Directives Date on File: 06/08/21 service: No Current occupational status: 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 Cognitive needs: No Hearing needs: No Vision needs: No Questionnaire Thrive Questionnaire Date Thrive assessed: 05/02/22 THIERNO-7 AMB Questionnaire THIERNO-7 Date THIERNO - 7 assessed: 05/02/22 Source: Developed by Drs. Mendez Warren, Chelsea David, Kane Oakes and colleagues, with an educational charisse from [employer]. Review of Systems Const Denies chills, Denies fatigue, Denies fever(s) and Denies poor appetite Eyes Denies no additional complaints ENT Reports Normal hearing present Card Denies chest pain, Denies syncope, Denies rapid heart rate and Reports dyspnea Resp Denies cough, Reports dyspnea and Reports wheezing GI Denies change in stool character, Denies constipation, Denies diarrhea, Denies nausea and Denies vomiting Denies dysuria, Denies urinary frequency and Denies urinary urgency Neuro Reports Normal hearing present, Denies confusion and Denies syncope Psych Denies confusion Endo Denies fatigue Aller/Immun Reports wheezing Physical exam (Primary Care) Vital Signs: Last Vital Signs Pulse 79 10/22/22 14:51 BP 130/68 10/22/22 14:51 Pulse Ox 95 10/22/22 14:51 Oxygen Delivery Method Room Air 10/22/22 14:51 BMI result Body Mass Index 30.9 Tobacco/Smoking Status: Tobacco use Status Tobacco use date assessed 10/22/22 10/22/22 15:00 Patient Tobacco Use Status Former Tobacco user 10/22/22 15:00 Tobacco use type Cigarette 10/22/22 15:00 e-Cigarette/Vaping Use Never Used 10/22/22 15:00 Thrive Assessment: Date of Thrive Assessment Date Thrive assessed 05/02/22 10/22/22 15:00 Const General: No confusion Orientation/consciousness: No confusion HENMT Head: Yes normocephalic and Yes atraumatic Eyes Conjunctivae: conjunctivae normal Chest Chest palpation & inspection: normal inspection of the chest Resp Effort & Inspection: normal respiratory effort Auscultation: no crackles, no rhonchi, no wheezes and diminished lung sounds bilateral Cardio Rate: regular rate Rhythm: regular rhythm Heart sounds: S1 normal heart sound present and S2 normal heart sound present GI Inspection: Yes normal to inspection General: Yes no CVA tenderness Back/Spine/Pelvis Back: no CVA tenderness Neuro General: No confusion Cranial nerves: Yes Normal hearing present Extrem General: No edema Assessment and Plan Assessment & Plan (1) Congestive heart failure: Code(s): I50.9 - Heart failure, unspecified Qualifiers: Heart failure chronicity: chronic Heart failure type: unspecified Qualified Code(s): I50.9 - Heart failure, unspecified Plan: Bnp 324, will repeat given patient continues to have cough and sob. Patient denies weight can has trace REX. (2) Anemia: Code(s): D64.9 - Anemia, unspecified Plan: Follow-up CBC ordered. (3) Hypertension: Code(s): I10 - Essential (primary) hypertension Qualifiers: Hypertension type: essential hypertension Qualified Code(s): I10 - Essential (primary) hypertension Plan: Continue on current medications. (4) Bronchitis: Code(s): J40 - Bronchitis, not specified as acute or chronic Plan: Will send prednisone 40 mg daily x5 days for persistent shortness of breath and wheezing. (5) Diabetic retinopathy associated with type 2 diabetes mellitus: Code(s): E11.319 - Type 2 diabetes mellitus with unspecified diabetic retinopathy without macular edema Plan: Continue on current medications. Follow low-carbohydrate diet. Patient advised to monitor his blood sugars closely as prednisone can increase his sugar levels. Plan Keep scheduled follow-up with PCP in 3 weeks. Orders: Orders B Type Natriuretic Peptide Today I50.9 - Heart failure, unspecified Comprehensive [place]. Panel Fast Today E11.22 - Type 2 diabetes mellitus with diabetic chronic kidney disease, N18.30 - Chronic kidney disease, stage 3 unspecified Complete Blood Count Auto Diff Today D64.9 - Anemia, unspecified UA CC w/rflx Micro + Cult Today R50.9 - Fever, unspecified Ferritin Today D64.9 - Anemia, unspecified IRON PROFILE Today D64.9 - Anemia, unspecified Medications: New prednisone 40 mg (2 x 20 mg) PO DAILY 10 tabs 0RF J40 - Bronchitis, not specified as acute or chronic Refilled insulin degludec 18 units (0.18 mL) subcut DAILY 16.2 mL 2RF 90 days E11.9 - Type 2 diabetes mellitus without complications Coding Level of Care Code Est Pt Level 4 (93331) Diagnoses Congestive heart failure I50.9 Heart failure chronicity: chronic Heart failure type: unspecified Anemia D64.9 Hypertension I10 Hypertension type: essential hypertension Bronchitis J40 Diabetic retinopathy associated with type 2 diabetes mellitus E11.319
[2022-10-22 14:51] VITALS: BP 130/68; PULSE 79; O2SAT 95; BMI 30.9
== END 2022-10-22 15:47 | disposition home or self-care (01) ==
PROVIDERS: PCP Internal Medicine; Visit Provider Nurse Practitioner Family
DX: I11.0 Hypertensive heart disease with heart failure (principal); I50.9 Heart failure, unspecified; D64.9 Anemia, unspecified; E11.319 Type 2 diabetes mellitus with unspecified diabetic retinopathy without macular edema; J40 Bronchitis, not specified as acute or chronic
CPT/HCPCS: 99214

== ENCOUNTER 2022-10-23 08:02 | Outpatient (REF) | payer MEDICARE, SELFPAY ==
[2022-10-23 08:39] LABS: MANUAL DIFF FLAG NO
[2022-10-23 09:25] LABS: Basophils Percent Auto 0.3 % (0-2); Eosinophils Percent Auto 0.1 % (0-4); Hemoglobin 11.3 g/dl (14.0-18.0); Imm Gran Abs Auto 0.07 X10*3/uL (0.00-0.03); Imm Gran Pct Auto 0.6 % (0.0-0.4); Lymphocytes Absolute Auto 1.4 X10*3/uL (1.2-4.9); Lymphocytes Percent Auto 11.4 % (20-40); Mean Corpuscular HGB Conc 33.2 g/dl (31.0-36.0); Mean Corpuscular Volume 93.4 fL (80.0-98.0); Mean Platelet Volume 10.4 fL (9.4-12.4); Monocytes Absolute Auto 0.5 X10*3/uL (0.1-1.2); Monocytes Percent Auto 4.4 % (2-11); Neutrophils Percent Auto 83.2 % (45-73); Platelet Count 229 X10*3/uL (160-400); Red Blood Count 3.64 X10*6/uL (4.60-5.80); Red Cell Distribution Width 13.2 % (11.0-16.0); White Blood Count 11.9 X10*3/uL (4.8-10.8)
[2022-10-23 09:27] LABS: Appearance Urine Clear; Color Urine Yellow; Glucose Urine UA Negative (Negative); Leukocyte Esterase Urine Negative (Negative); Nitrite Urine Negative (Negative); PH 5.5 (5.0-9.0); Specific Gravity - Urine 1.025 (1.005-1.025); UMIC TRIGGER UACC YES; Urine Blood Negative (Negative); Urine Ketones Negative (Negative); Urine Protein 300 (3+) mg/dL (Neg-Trace)
[2022-10-23 09:40] LABS: Bacteria Urine None Seen (None Seen); RBC Urine 0-2 /HPF (0-2); Squamous Epithelial Cell Urine 0-2 /HPF (0-2); WBC Urine 0-5 /HPF (0-5)
[2022-10-23 10:12] LABS: B Type Natriuretic Peptide 364 pg/mL (<100)
[2022-10-23 10:50] LABS: Anion Gap 16 (12-20); Blood Urea Nitrogen 25 mg/dL (9-16); Calcium 9.2 mg/dL (8.4-10.2); Carbon Dioxide 22 mmol/L (22-29); Chloride 112 mmol/L (96-108); Estimated Glomerular Filt Rate 51; Glucose Fasting 266 mg/dL (60-99); Iron 96 mcg/dL (45-160); Potassium 5.5 mmol/L (3.3-5.1); Sodium 144 mmol/L (135-145)
[2022-10-23 10:51] LABS: Alanine Aminotransferase 48 U/L (0-40); Albumin Level 3.6 g/dL (3.5-5.0); Alkaline Phosphatase 107 U/L (39-117); Aspartate Amino Transferase 27 U/L (5-37); Bilirubin Total 0.4 mg/dL (0.0-1.0); Percent Iron Saturation 40 % (15-50); Total Iron Binding Capacity 239 mcg/dL (228-428); Total Protein 7.8 g/dL (6.5-8.0); Unsaturated Iron Binding 143 ug/dL
[2022-10-23 11:10] LABS: Ferritin 292 ng/mL (20-250)
== END 2022-10-23 08:03 | disposition home or self-care (01) ==
LOC: HO.LAB 08:02
PROVIDERS: PCP Internal Medicine; Visit Provider Nurse Practitioner Family
DX: E11.22 Type 2 diabetes mellitus with diabetic chronic kidney disease (principal); N18.30 Chronic kidney disease, stage 3 unspecified; I50.9 Heart failure, unspecified; D64.9 Anemia, unspecified
CPT/HCPCS: 36415; 80053; 81001; 82728; 83540; 83880; 85025

== ENCOUNTER 2022-11-21 10:44 | Outpatient (AMB) | payer MEDICARE, SELFPAY ==
[2022-11-21 10:46] VITALS: BP 158/74; PULSE 79; O2SAT 98; BMI 30.7
--- NOTE | 2022-11-21 10:46 | MHC.PC.OV ---
Vital Signs 11/21/22 10:46 Height 5 ft 7 in Weight 196 lb BMI 30.7 BP 158/74 H Blood Pressure Location Lt brachial Position Sitting Pulse 79 Pulse Source Pulse Oximeter Pulse Oximetry (%) 98 Oxygen Delivery Method Room Air Intake Visit Reasons: DM Allergies furosemide Adverse Reaction (Intermediate, Verified 11/21/22 10:47) Dizziness Tobacco use date assessed: 10/22/22 Fall risk assessment: No Falls in past year Last assessed Fall Risk: 11/21/22 Dental Screening Dental Screen Date: 11/21/22 Did you have a dental visit in the last 12 months?: No Did you have a dental problem in the last 6 months where you did not have access to dental care?: No Was dental information given to patient?: No HPI DM HPI Details 77-year-old obese male with multiple medical problems diabetes mellitus aortic stenosis GERD congestive heart failure cardiomyopathy hypertension hypercholesterolemia coronary artery disease chronic kidney disease and depression last seen in July 2022. Patient is here for follow-up patient was recently discharged from [facility] 10/26/2022 for acute exacerbation of the congestive heart failure with demand ischemia BNP was 1712 last catheterization 2019 known 3 vessel disease and bypass surgery aggressive secondary risk factor modification patient is on Trulicity and Lantus patient was also antrum phi a for psoriasis echocardiogram done with this admission ejection fraction preserved. Patient was also seen by the nurse practitioner in 10/22/2022 for bronchitis. Patient states in [facility] dx of septicemia- upset with [facility] Medical History (Updated 11/21/22 @ 11:25 by Marcia Clements MD) Acute hypoxemic respiratory failure due to COVID-19 Allergic rhinitis Aortic stenosis CAD (coronary artery disease) Cardiomyopathy Carotid artery stenosis CKD stage 3 due to type 2 diabetes mellitus Compression fracture of L1 lumbar vertebra Congestive heart failure Diabetic 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 diabetes mellitus Diabetic polyneuropathy associated with type 2 diabetes mellitus Diabetic retinopathy associated with type 2 diabetes mellitus Distal radius fracture, right Dyslipidemia Epidermoid cyst of skin of cheek Fracture of distal end of left radius with routine healing GERD (gastroesophageal reflux disease) Glaucoma History of renal calculi Hypertension Iliac artery stenosis, bilateral Impacted cerumen of both ears Impacted cerumen of right ear Infective endocarditis Left carotid stenosis 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 Mass of face Overweight (BMI 25.0-29.9) Pneumonia due to COVID-19 virus Positive TB test Preoperative clearance Pulmonary nodule PVD (peripheral vascular disease) Renal insufficiency Respiratory tract infection Superficial abrasion Tobacco abuse Trigger finger, right middle finger Trigger finger, right middle finger Surgical History Hx of appendectomy Hx of arthroscopy of right knee Hx of cataract removal with insertion of prosthetic lens Hx of coronary artery bypass graft Hx of shoulder surgery Hx of tonsillectomy Family History Father Stomach cancer Mother Diabetes Brother Prostate abscess Social History (Updated 10/22/22 @ 14:59 by ALEX Gant) Housing: Apartment Alcohol intake: never Patient Tobacco Use Status: Former Tobacco user Tobacco use type: Cigarette Cigarette Packs Per Day: 0.25 Cigarettes Per Day: 3 e-Cigarette/Vaping Use: Never Used Second Hand Smoke Exposure: Yes Advance Directives Date on File: 06/08/21 service: No Current occupational status: 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 1. Little interest or pleasure in doing things: not at all 2. Feeling down, depressed, or hopeless: not at all 3. Trouble falling or staying asleep, or sleeping too much: not at all 4. Feeling tired or having little energy: not at all 5. Poor appetite or overeating: not at all 6. Feeling bad about yourself - or that you are a failure or have let yourself or your family down: not at all 7. Trouble concentrating on things, such as reading the newspaper or watching television: not at all 8. Moving or speaking so slowly that other people could have noticed. Or the opposite - being so fidgety or restless that you have been moving around a lot more than usual: not at all 9. Thoughts that you would be better off or of hurting yourself in some way: not at all Total score: 0 Depression Screening Interpretation: Negative Source: Developed by Drs. Mendez Warren, Chelsea David, Kane Oakes and colleagues, with an educational charisse from [employer]. Thrive Questionnaire Date Thrive assessed: 05/02/22 AUDIT C Alcohol Use Questionnaire (AUDIT-C) 1. How often do you have a drink containing alcohol?: Never 2. How many drinks containing alcohol do you have on a typical day when you are drinking?: 1 or 2 (0) 3. How often do you have six or more drinks on one occasion?: Never Total Score: 0 THIERNO-7 AMB Questionnaire THIERNO-7 Date THIERNO - 7 assessed: 05/02/22 Source: Developed by Drs. Mendez Warren, Chelsea David, Kane Oakes and colleagues, with an educational charisse from [employer]. Physical exam (Primary Care) Vital Signs: Last Vital Signs Pulse 79 11/21/22 10:46 BP 158/74 H 11/21/22 10:46 Pulse Ox 98 11/21/22 10:46 Oxygen Delivery Method Room Air 11/21/22 10:46 BMI result Body Mass Index 30.7 Tobacco/Smoking Status: Tobacco use Status Tobacco use date assessed 10/22/22 11/21/22 10:47 Patient Tobacco Use Status Former Tobacco user 11/21/22 10:47 Tobacco use type Cigarette 11/21/22 10:47 e-Cigarette/Vaping Use Never Used 11/21/22 10:47 PHQ-9: PHQ-9 Score PHQ-9: Total score 0 11/21/22 11:11 Depression Screening Interpretation: Negative Thrive Assessment: Date of Thrive Assessment Date Thrive assessed 05/02/22 11/21/22 10:47 Const General: alert; No acute distress Eyes Conjunctivae: conjunctivae normal Resp Auscultation: clear to auscultation bilaterally Cardio Rate: regular rate Rhythm: regular rhythm GI Inspection: Yes normal to inspection Extrem General: Yes normal to inspection and No edema Results AMB Hemoglobin A1c AMB Hemoglobin A1c 6.9 % Last Edit by Sarah Johnson CMA on 11/21/22 11:28 Assessment and Plan Assessment & Plan (1) CKD stage 3 due to type 2 diabetes mellitus: Code(s): E11.22 - Type 2 diabetes mellitus with diabetic chronic kidney disease; N18.30 - Chronic kidney disease, stage 3 unspecified Plan: Avoid NSAIDs continue with present does of medications (2) CAD (coronary artery disease): Code(s): I25.10 - Atherosclerotic heart disease of nondalton coronary artery without angina pectoris Qualifiers: Coronary Disease-Associated Artery/Lesion type: nondalton artery [place] vs. transplanted heart: nondalton heart Associated angina: without angina Qualified Code(s): I25.10 - Atherosclerotic heart disease of nondalton coronary artery without angina pectoris Plan: Control the cholesterol, weight, blood pressure, diabetes (3) Hypertension: Code(s): I10 - Essential (primary) hypertension Qualifiers: Hypertension type: essential hypertension Qualified Code(s): I10 - Essential (primary) hypertension Plan: Continue with blood pressure medication. Decrease salt intake and exercise continue with amlodipine 10 mg once a day losartan 25 mg once a day metoprolol 25 mg once a day (4) Dyslipidemia: Code(s): E78.5 - Hyperlipidemia, unspecified Plan: Avoid fried foods, chicken skin, eggs, butter margarine, pastries and meat. Be it pork or beef they have a lot of cholesterol LDL goal of less than 70 and triglyceride of less than 150. Patient is on rosuvastatin 40 mg once a day (5) PVD (peripheral vascular disease): Comment: 08/12/2018- bilateral iliac stents 03/28/2021 - right SFA atherectomy and stenting Code(s): I73.9 - Peripheral vascular disease, unspecified Plan: When sitting down elevate the legs, exercise, and support stockings (6) Congestive heart failure: Code(s): I50.9 - Heart failure, unspecified Qualifiers: Heart failure type: unspecified Heart failure chronicity: chronic Qualified Code(s): I50.9 - Heart failure, unspecified Plan: Continue the diuretic, weigh daily continue with losartan (7) GERD (gastroesophageal reflux disease): Code(s): K21.9 - Gastro-esophageal reflux disease without esophagitis Qualifiers: Esophagitis presence: without esophagitis Qualified Code(s): K21.9 - Gastro-esophageal reflux disease without esophagitis Plan: Avoid the foods that causes that usually spicy foods, tomato products, juices, coffee, soda and foods that your sensitive to. After eating do not lie down, allow 3-4 hours before in lie down. And keep the head of bed above 30 degrees to avoid the acid from going up. (8) Type 2 diabetes mellitus with hyperglycemia: Code(s): E11.65 - Type 2 diabetes mellitus with hyperglycemia Plan: Decrease the amount of carbohydrate intake, pasta, bread, rice and potatoes are all sugar and that is aside from all the sweet stuff, remember that fruits are good but they are Sweet also. Hemoglobin A1c goal of less than 7.0 patient is on Humalog, Lantus, Trulicity (9) Aortic stenosis: Comment: April 2021, December 2021 1.3 cm Code(s): I35.0 - Nonrheumatic aortic (valve) stenosis Plan: Continue to monitor Orders: Orders Vitamin B12 and Folate Today I25.10 - Atherosclerotic heart disease of nondalton coronary artery without angina pectoris Comprehensive Met. Panel Today I25.10 - Atherosclerotic heart disease of nondalton coronary artery without angina pectoris Ferritin Today I25.10 - Atherosclerotic heart disease of nondalton coronary artery without angina pectoris Hemoglobin A1c Today I25.10 - Atherosclerotic heart disease of nondalton coronary artery without angina pectoris IRON PROFILE Today I25.10 - Atherosclerotic heart disease of nondalton coronary artery without angina pectoris Lipid Panel Today E78.00 - Pure hypercholesterolemia, unspecified, I25.10 - Atherosclerotic heart disease of nondalton coronary artery without angina pectoris Free T4 (Free Thyroxine) Today I25.10 - Atherosclerotic heart disease of nondalton coronary artery without angina pectoris Thyroid Stimulating Hormone Today I25.10 - Atherosclerotic heart disease of nondalton coronary artery without angina pectoris Uric Acid Today I25.10 - Atherosclerotic heart disease of nondalton coronary artery without angina pectoris Creatinine Urine Today E11.65 - Type 2 diabetes mellitus with hyperglycemia, I25.10 - Atherosclerotic heart disease of nondalton coronary artery without angina pectoris Microalbumin, Random (w Creat) Today E11.65 - Type 2 diabetes mellitus with hyperglycemia, I25.10 - Atherosclerotic heart disease of nondalton coronary artery without angina pectoris Complete Blood Count Auto Diff Today I25.10 - Atherosclerotic heart disease of nondalton coronary artery without angina pectoris Reticulocyte Count Today I25.10 - Atherosclerotic heart disease of nondalton coronary artery without angina pectoris AMB Hemoglobin A1c Today Z13.9 - Encounter for screening, unspecified Medications: New cholecalciferol (vitamin D3) 25 mcg PO DAILY 90 tabs 2RF Refilled amlodipine 10 mg PO DAILY 90 tabs 3RF I10 - Essential (primary) hypertension aspirin 81 mg PO DAILY 90 tabs 3RF furosemide 20 mg PO DAILY 90 tabs 3RF I50.9 - Heart failure, unspecified gabapentin 300 mg PO BEDTIME 90 caps 2RF E11.42 - Type 2 diabetes mellitus with diabetic polyneuropathy insulin degludec 18 units (0.18 mL) subcut DAILY 90 days 16.2 mL 2RF E11.9 - Type 2 diabetes mellitus without complications insulin lispro (Humalog KwikPen (U-100) Insulin) before meals as directed 5 - 9 units (0.05 - 0.09 mL) subcut TID 90 days 15 mL 2RF E11.22 - Type 2 diabetes mellitus with diabetic chronic kidney disease, E11.42 - Type 2 diabetes mellitus with diabetic polyneuropathy, N18.30 - Chronic kidney disease, stage 3 unspecified, Z79.4 - emt intermediate (current) use of insulin losartan 25 mg PO DAILY 90 days 90 tabs 1RF E87.5 - Hyperkalemia metoprolol succinate ER 25 mg PO DAILY 90 tabs 1RF E87.5 - Hyperkalemia rosuvastatin 40 mg PO DAILY 90 days 90 tabs 3RF I25.10 - Atherosclerotic heart disease of nondalton coronary artery without angina pectoris dulaglutide (Trulicity) 1.5 mg (0.5 mL) subcut QWEEK 2 mL 11RF E11.65 - Type 2 diabetes mellitus with hyperglycemia Discontinued prednisone Discontinued Reason: Ancillary Entered New Order 40 mg (2 x 20 mg) PO DAILY 10 tabs 0RF J40 - Bronchitis, not specified as acute or chronic Coding Level of Care Code Est Pt Level 4 (44591) Diagnoses CKD stage 3 due to type 2 diabetes mellitus E11.22; N18.30 CAD (coronary artery disease) I25.10 Coronary Disease-Associated Artery/Lesion type: nondalton artery [place] vs. transplanted heart: nondalton heart Associated angina: without angina Hypertension I10 Hypertension type: essential hypertension Dyslipidemia E78.5 PVD (peripheral vascular disease) I73.9 Congestive heart failure I50.9 Heart failure type: unspecified Heart failure chronicity: chronic GERD (gastroesophageal reflux disease) K21.9 Esophagitis presence: without esophagitis Type 2 diabetes mellitus with hyperglycemia E11.65 Aortic stenosis I35.0
== END 2022-11-21 11:49 | disposition home or self-care (01) ==
PROVIDERS: Visit Provider Internal Medicine
DX: E11.22 Type 2 diabetes mellitus with diabetic chronic kidney disease (principal); I13.0 Hypertensive heart and chronic kidney disease with heart failure and stage 1 through stage 4 chronic kidney disease, or unspecified chronic kidney disease; N18.30 Chronic kidney disease, stage 3 unspecified; I50.9 Heart failure, unspecified; I25.10 Atherosclerotic heart disease of native coronary artery without angina pectoris; E78.5 Hyperlipidemia, unspecified; I73.9 Peripheral vascular disease, unspecified; K21.9 Gastro-esophageal reflux disease without esophagitis; E11.65 Type 2 diabetes mellitus with hyperglycemia; I35.0 Nonrheumatic aortic (valve) stenosis
CPT/HCPCS: 83036; 99214

== ENCOUNTER 2022-11-26 14:59 | Outpatient (AMB) | payer MEDICARE, SELFPAY ==
--- NOTE | 2022-11-26 15:07 | A.OFFVIS_ITS ---
Intake Vital Signs 11/26/22 15:08 Height 5 ft 7 in Weight 196 lb 3.382 oz BMI 30.7 BP 140/62 H Blood Pressure Location Lt brachial Position Sitting Pulse 87 Pulse Source Pulse Oximeter Intake Visit Reasons: [facility] FUP SOB + CP NS PT Intake Note: [facility] fup/sob Education Research Analyst Required: No Allergies furosemide Adverse Reaction (Intermediate, Verified 11/26/22 15:14) Dizziness Medication List - Last Reconciled 11/26/22 by MAREN Orr acetaminophen (Tylenol Extra Strength) 500 mg PO Q6H PRN amlodipine 10 mg PO DAILY ascorbic acid (vitamin C) 500 mg PO DAILY aspirin 81 mg PO DAILY blood sugar diagnostic (FreeStyle Lite Strips) As directed four times a day 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 meter (FreeStyle [place] Lite kit) As directed cholecalciferol (vitamin D3) 25 mcg PO DAILY dorzolamide-timolol 22.3-6.8 mg/mL 1 drp ophthalmic (eye) BID dulaglutide (Trulicity) 1.5 mg (0.5 mL) subcut QWEEK gabapentin 300 mg PO BEDTIME guselkumab (Tremfya) mg subcut insulin degludec 18 units (0.18 mL) subcut DAILY 90 days insulin lispro (Humalog KwikPen (U-100) Insulin) 5 - 9 units (0.05 - 0.09 mL) subcut TID 90 days lancets (FreeStyle Lancets) As directed check BS QD losartan 25 mg PO DAILY 90 days metoprolol succinate ER 25 mg PO DAILY multivitamin 1 tab PO DAILY pen needle, diabetic (BD Martina 2nd Gen Pen Needle) 5 times a day rosuvastatin 40 mg PO DAILY 90 days HPI [facility] FUP SOB + CP NS PT HPI Details Deyanira is a 77-year-old male past medical history of hypertension, hyperlipidemia, diabetes, peripheral vascular disease, smoking, chronic kidney disease, CAD with prior Coronary artery bypass grafting who was recently admitted to [facility] for shortness of breath, cough. He was treated for acute Congestive heart failure, possible pneumonia, NSTEMI which was felt to be demand related. Peak troponin 67. He was sent home with Lasix to 40 mg daily. His losartan was initially held on discharge for creatinine 1.4. Today he reports that he has been doing well since his hospital discharge. He stopped his Lasix a few days ago due to frequent urination. His med list currently includes losartan 25 mg daily. He tells me his breathing seems back to normal. No PND, orthopnea or edema. No chest discomfort at rest or with activity. No heart palpitations, dizziness, presyncope, syncope, falls. Has been doing light activities around his house and driving his to shopping. Taking all medications as directed. [facility] Medical History Acute hypoxemic respiratory failure due to COVID-19 Allergic rhinitis Aortic stenosis CAD (coronary artery disease) Cardiomyopathy Carotid artery stenosis CKD stage 3 due to type 2 diabetes mellitus Compression fracture of L1 lumbar vertebra Congestive heart failure Diabetic 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 diabetes mellitus Diabetic polyneuropathy associated with type 2 diabetes mellitus Diabetic retinopathy associated with type 2 diabetes mellitus Distal radius fracture, right Dyslipidemia Epidermoid cyst of skin of cheek Fracture of distal end of left radius with routine healing GERD (gastroesophageal reflux disease) Glaucoma History of renal calculi Hypertension Iliac artery stenosis, bilateral Impacted cerumen of both ears Impacted cerumen of right ear Infective endocarditis 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 Mass of face Overweight (BMI 25.0-29.9) Pneumonia due to COVID-19 virus Positive TB test Preoperative clearance Pulmonary nodule PVD (peripheral vascular disease) Renal insufficiency Respiratory tract infection Superficial abrasion Tobacco abuse Trigger finger, right middle finger Trigger finger, right middle finger Surgical History Hx of appendectomy Hx of arthroscopy of right knee Hx of cataract removal with insertion of prosthetic lens Hx of coronary artery bypass graft Hx of shoulder surgery Hx of tonsillectomy Family History Father Stomach cancer Mother Diabetes Brother Prostate abscess Social History Housing: Apartment Alcohol intake: never Patient Tobacco Use Status: Former Tobacco user Tobacco use type: Cigarette Cigarette Packs Per Day: 0.25 Cigarettes Per Day: 3 e-Cigarette/Vaping Use: Never Used Second Hand Smoke Exposure: Yes Advance Directives Date on File: 06/08/21 service: No Current occupational status: 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 Cognitive needs: No Hearing needs: No Vision needs: No Review of Systems ENT Denies dizziness Card Denies chest pain, Denies chest pain at rest, Denies chest pain with activity, Denies rapid heart rate, Denies pedal edema, Denies edema, Denies leg edema, Denies lightheadedness, Denies palpitations, Denies dyspnea, Denies dyspnea on exertion and Denies orthopnea Resp Denies cough, Denies dyspnea and Denies dyspnea on exertion GI Denies hematochezia and Denies change in stool character Musc Denies abnormal gait, Denies limited range of motion, Denies muscle cramps, Denies muscle weakness, Denies numbness, Denies radiating pain into limb, Denies stiffness and Denies tingling Neuro Denies abnormal gait, Denies dizziness, Denies numbness and Denies tingling Endo Denies palpitations Physical Exam Vital Signs: Last Vital Signs Pulse 87 11/26/22 15:08 BP 140/62 H 11/26/22 15:08 BMI result Body Mass Index 30.7 Const General: cooperative, healthy appearing, comfortable and no acute distress Orientation/consciousness: patient oriented x3 Neck Neck: Yes normal visual inspection Resp Effort & Inspection: normal respiratory effort Auscultation: clear to auscultation bilaterally, no crackles, no rales, no rhonchi and no wheezes Cardio Jugular venous distension: no JVD Rate: regular rate Rhythm: regular rhythm Heart sounds: S1 normal heart sound present, S2 normal heart sound present, Murmur heart sound present (3/6 systolic murmur, right sternal border) and no rubs Neuro General: patient oriented x3 Extrem General: Yes normal to inspection and No no pedal edema Psych Appearance: grossly normal Mental Status: mental status grossly normal Speech and movement: Normal speech and movement present Assessment & Plan Assessment & Plan (1) NSTEMI (non-ST elevated myocardial infarction): Code(s): I21.4 - Non-ST elevation (NSTEMI) myocardial infarction Plan[place] [facility] [place] for increasing shortness of breath and cough. Chest x-ray confirmed bilateral edema. Also concern for possible pneumonia. He was treated for acute heart failure and pneumonia. Troponin elevated up to 67 with 50% rise consistent with NSTEMI felt to be demand related. He did not report chest discomfort. He has a known history of coronary artery disease with coronary artery bypass grafting approximately 6 years ago. He has done well since his hospital discharge with no concerning symptoms. He stopped taking Lasix 3 days ago. On examination he does not appear to have decompensated heart failure. Will update cardiac testing including echocardiogram and pharmacological nuclear stress test. He will not be able to exercise on the treadmill due to slow ambulation, history of peripheral vascular disease. Cardiology follow-up when test results are available. At present continue current management with aspirin, rosuvastatin, metoprolol, amlodipine, losartan. (2) Congestive heart failure: Code(s): I50.9 - Heart failure, unspecified Qualifiers: Heart failure type: unspecified Heart failure chronicity: chronic Qualified Code(s): I50.9 - Heart failure, unspecified Plan: Congestive heart failure admission as above. Patient also had possible underlying pneumonia with sepsis which may have contributed. Discharge summary states that echocardiogram was ordered however no results. Patient does not believe that echo was completed. Will be updating echo as above. Signs and symptoms of recurrent heart failure reviewed with him. He stopped taking his daily Lasix. Instructed on p.r.n. use. (3) Aortic stenosis: Comment: April 2021, December 2021 1.3 cm Code(s): I35.0 - Nonrheumatic aortic (valve) stenosis Plan: Last echocardiogram 12/25/2021 showing EF 60-65%, moderate aortic stenosis with mean gradient 20 mmHg and aortic valve area 1.32 centimeter sq. Does not sound severe on examination as 2nd heart sound still audible. Rechecking echocardiogram. (4) Hypertension: Code(s): I10 - Essential (primary) hypertension Qualifiers: Hypertension type: essential hypertension Qualified Code(s): I10 - Essential (primary) hypertension Plan: Mild elevation today. Will be reached checked at time of stress test. Will have him continue his current meds including metoprolol, amlodipine and losartan. (5) Dyslipidemia: Code(s): E78.5 - Hyperlipidemia, unspecified Plan: [place] LDL goal less than 70 in patient with CAD. Will order fasting lipids to be done with next lab draw. Continue rosuvastatin (6) Hospital discharge follow-up: Code(s): Z09 - Encounter for follow-up examination after completed treatment for conditions other than malignant neoplasm Orders: Orders CA lexiscan stress w lan Today I21.4 - Non-ST elevation (NSTEMI) myocardial infarction, I50.9 - Heart failure, unspecified CA echo transthoracic complete Today I21.4 - Non-ST elevation (NSTEMI) myocardial infarction, I35.0 - Nonrheumatic aortic (valve) stenosis NM cardiolite stress test Today I21.4 - Non-ST elevation (NSTEMI) myocardial infarction, I50.9 - Heart failure, unspecified Coding Level of Care Code Est Pt Level 4 (13047) Diagnoses NSTEMI (non-ST elevated myocardial infarction) I21.4 Congestive heart failure I50.9 Heart failure type: unspecified Heart failure chronicity: chronic Aortic stenosis I35.0 Hypertension I10 Hypertension type: essential hypertension Dyslipidemia E78.5 Hospital discharge follow-up Z09 Time Spent (min) 28 Comment Chart review, documentation, interview, assess
[2022-11-26 15:08] VITALS: BP 140/62; PULSE 87; BMI 30.7
== END 2022-11-26 15:37 | disposition home or self-care (01) ==
PROVIDERS: PCP Internal Medicine; Referring Provider Internal Medicine; Visit Provider Nurse Practitioner Family
DX: I21.4 Non-ST elevation (NSTEMI) myocardial infarction (principal); I50.9 Heart failure, unspecified; I35.0 Nonrheumatic aortic (valve) stenosis; I10 Essential (primary) hypertension; E78.5 Hyperlipidemia, unspecified; Z09 Encounter for follow-up examination after completed treatment for conditions other than malignant neoplasm
CPT/HCPCS: 99214

== ENCOUNTER → 2022-11-26 14:59 | Outpatient (BNVA) | payer MEDICARE, SELFPAY | PROVIDERS: PCP Internal Medicine; Referring Provider Internal Medicine; Visit Provider Nurse Practitioner Family | DX: I21.4 Non-ST elevation (NSTEMI) myocardial infarction (principal); I11.0 Hypertensive heart disease with heart failure; I50.9 Heart failure, unspecified; I35.0 Nonrheumatic aortic (valve) stenosis; E78.5 Hyperlipidemia, unspecified; Z79.82 Long term (current) use of aspirin; Z79.899 Other long term (current) drug therapy | CPT/HCPCS: 99212 ==

== ENCOUNTER 2022-11-28 08:15 | Outpatient (REF) | payer MEDICARE, SELFPAY ==
[2022-11-28 08:29] LABS: MANUAL DIFF FLAG NO
[2022-11-28 08:48] LABS: Basophils Absolute Auto 0.1 X10*3/uL (0.0-0.2); Basophils Percent Auto 0.6 % (0-2); Eosinophils Absolute Auto 0.4 X10*3/uL (0.0-0.4); Eosinophils Percent Auto 4.5 % (0-4); Hematocrit 34.2 % (42.0-52.0); Hemoglobin 11.8 g/dl (14.0-18.0); Imm Gran Abs Auto 0.02 X10*3/uL (0.00-0.03); Imm Gran Pct Auto 0.2 % (0.0-0.4); Immature Retic Fraction 12.9 % (2.3-13.4); Lymphocytes Absolute Auto 2.9 X10*3/uL (1.2-4.9); Lymphocytes Percent Auto 31.4 % (20-40); Mean Corpuscular HGB Conc 34.5 g/dl (31.0-36.0); Mean Corpuscular Hemoglobin 31.9 pg (27.0-33.0); Mean Corpuscular Volume 92.4 fL (80.0-98.0); Mean Platelet Volume 10.3 fL (9.4-12.4); Monocytes Absolute Auto 0.8 X10*3/uL (0.1-1.2); Monocytes Percent Auto 8.8 % (2-11); Neutrophils Absolute Auto 5.1 x10*3/uL (2.0-8.3); Neutrophils Percent Auto 54.5 % (45-73); Platelet Count 159 X10*3/uL (160-400); Red Cell Distribution Width 13.4 % (11.0-16.0); Retic HGB Equivalent 37.4 pg (30.0-35.0); Reticulocyte Percent 1.9 % (0.5-1.8); Reticulocytes Absolute 0.069 X10*6/uL (0.026-0.095); White Blood Count 9.3 X10*3/uL (4.8-10.8)
[2022-11-28 08:58] LABS: Estimated Average Glucose 148 mg/dL; Hemoglobin A1c % 6.8 % (<6.0)
[2022-11-28 09:13] LABS: Alanine Aminotransferase 34 U/L (0-40); Albumin Level 3.9 g/dL (3.5-5.0); Alkaline Phosphatase 93 U/L (39-117); Anion Gap 15 (12-20); Aspartate Amino Transferase 28 U/L (5-37); Bilirubin Total 0.4 mg/dL (0.0-1.0); Blood Urea Nitrogen 30 mg/dL (9-16); Calcium 9.4 mg/dL (8.4-10.2); Carbon Dioxide 23 mmol/L (22-29); Chloride 108 mmol/L (96-108); Cholesterol 96 mg/dL (<200); Estimated Glomerular Filt Rate 55; Glucose Random 185 mg/dL (60-115); HDL Cholesterol 33 mg/dL (>40); Iron 65 mcg/dL (45-160); LDL Cholesterol Calculated 45 mg/dL (<100); Percent Iron Saturation 25 % (15-50); Potassium 4.7 mmol/L (3.3-5.1); Sodium 141 mmol/L (135-145); Total Iron Binding Capacity 255 mcg/dL (228-428); Total Protein 7.4 g/dL (6.5-8.0); Triglycerides 93 mg/dL (<150); Unsaturated Iron Binding 190 ug/dL; Uric Acid 7.7 mg/dL (3.4-7.0)
[2022-11-28 09:32] LABS: Ferritin 215 ng/mL (20-250); Free T4 (Free Thyroxine) 0.94 ng/dL (0.71-1.85); Thyroid Stimulating Hormone 2.95 uIU/mL (0.32-4.0)
[2022-11-28 09:40] LABS: Vitamin B12 741 pg/mL (200-900)
[2022-11-28 12:18] LABS: Creatinine Urine 111.77 mg/dL
== END 2022-11-28 08:16 | disposition home or self-care (01) ==
LOC: HO.LAB 08:15
PROVIDERS: PCP Internal Medicine; Visit Provider Internal Medicine
DX: E11.65 Type 2 diabetes mellitus with hyperglycemia (principal); E78.00 Pure hypercholesterolemia, unspecified; I25.10 Atherosclerotic heart disease of native coronary artery without angina pectoris
CPT/HCPCS: 36415; 80053; 80061; 82043; 82570; 82607; 82728; 82746; 83036; 83540; 84439; 84443; 84550; 85025; 85045

== ENCOUNTER 2022-12-08 19:00 | Inpatient (IN) | payer MEDICARE, SELFPAY ==
--- NOTE | 2022-12-08 | ECG_ITS ---
Test Reason : FALL DIZZY Blood Pressure : / mmHG Vent. Rate : 073 BPM Atrial Rate : 073 BPM P-R Int : 158 ms QRS Dur : 094 ms QT Int : 398 ms P-R-T Axes : 061 -15 089 degrees QTc Int : 438 ms Normal sinus rhythm Possible Inferior infarct (cited on or before 13-OCT-2013) Abnormal ECG When compared with ECG of 01-AUG-2022 17:10, No significant change was found Referred By: Generic ED Physician Electronically Signed By:NIYAH COYLE
--- NOTE | ~2022-12-08 | US_ITS ---
EXAMINATION: US RETROPERITONEAL LIMITED (RENAL ONLY) CLINICAL INFORMATION: Acute kidney insufficiency. COMPARISON: Renal ultrasound 06/13/2020. CT abdomen and pelvis 06/02/2019. TECHNIQUE: Real-time imaging of the kidneys. FINDINGS: RIGHT KIDNEY: 10.7 x 5.3 x 5.6 cm (SAG x AP x TRV). The kidney is normal in size, contour, and echogenicity. Renal cortical thickness is normal. No calculi or focal parenchymal lesions. No hydronephrosis. Trace perinephric fluid. LEFT KIDNEY: 12.1 x 6.0 x 5.2 cm (SAG x AP x TRV). The kidney is normal in size, contour, and echogenicity. Renal cortical thickness is normal. No calculi or focal parenchymal lesions. No hydronephrosis. Trace perinephric fluid. US/US renal BI IMPRESSION: 1. No hydronephrosis or nephrolithiasis. 2. Trace bilateral perinephric fluid.
--- NOTE | ~2022-12-08 | FL_ITS ---
EXAMINATION: FL FLUOROSCOPY GUIDANCE WITH IMAGES CLINICAL INFORMATION: Right hip fracture, COMPARISON: Previous x-ray 12/08/2022 TECHNIQUE: Fluoroscopy Supervised By: Dr. Randy Melton. Fluoroscopy Time: 1 minute. Cumulative Dose: 31 mGy-cm DAP: 0.5 uGy-m2 Images: 5. FINDINGS: Images demonstrate an intramedullary dwaine and compression/lag screw transfixing the right femoral intertrochanteric fracture. There is improved alignment. There is arthritis at the right hip joint. There is atherosclerotic disease. FL/FL guidance in OR IMPRESSION: Fluoroscopy guidance for ORIF of right hip fracture.
--- NOTE | ~2022-12-08 | XR_ITS ---
EXAMINATION: XR CHEST CLINICAL INFORMATION: Hypoxia COMPARISON: Chest x-ray 12/08/2022 TECHNIQUE: Frontal view of the chest was obtained. FINDINGS: Cardiac silhouette is normal in size. The lungs are adequately aerated. Linear opacity of the right lung base, nonspecific. Subtle linear opacities of the left lung base are most suggestive of atelectasis. There is no lobar consolidation present. No pleural effusion. Blunting of right costophrenic angle likely represents a small amount of pleural fluid. Degenerative changes of the shoulders. XR/XR chest 1V IMPRESSION: Suspected bibasilar atelectasis with a small amount of right-sided pleural fluid. Cannot exclude developing infiltrate of the right lung base. Follow-up imaging recommended status post treatment to ensure resolution.
--- NOTE | ~2022-12-08 | XR_ITS ---
EXAMINATION: XR CHEST CLINICAL INFORMATION: Pre-op. COMPARISON: Chest done on 10/15/2022. TECHNIQUE: Frontal view of the chest was obtained. FINDINGS: Prominent bronchovascular markings are present bilaterally with mild hyperinflation, appears to be chronic changes. No evidence of any discrete focal airspace disease to suspect pneumonia. The cardiomediastinal silhouette is within normal limits. Postop changes of sternotomy. No evidence of any pneumothorax or pleural effusion. The visualized upper abdomen is unremarkable. XR/XR chest 1V IMPRESSION: No radiographic evidence of pneumonia.
--- NOTE | ~2022-12-08 | CT_ITS ---
EXAMINATION: CT HEAD WITHOUT CONTRAST CT CERVICAL SPINE WITHOUT CONTRAST CLINICAL INFORMATION: Reason for Exam fall COMPARISON: CT of the head done on 08/01/2022. TECHNIQUE: Imaging was performed from the skull base to vertex without intravenous administration of contrast. In addition, helical noncontrast CT imaging was acquired through the cervical spine and source images were reviewed along with axial reconstructions and sagittal and coronal MPRs. This CT examination was performed using dose optimization techniques as appropriate, variously including the following: *Automated exposure control. *Adjustment of mA and/or kV according to patient size (this includes techniques or standardized protocols for targeted exams where dose is matched to indication/reason for exam; i.e. extremities or head). *Use of iterative reconstruction technique. Total exam dose-length product 1330.0 mGy-cm FINDINGS: HEAD: No intracranial mass, hemorrhage, or midline shift is visualized. The ventricles and sulci are unchanged since 08/01/2022. No extra-axial collections are identified. The paranasal sinuses and mastoid air cells are well aerated. CERVICAL SPINE: Marked diffuse osteopenia. 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 The heights of the cervical vertebrae are well-maintained. Multilevel moderate degenerative spondylosis of the cervical spine and nonspecific straightening of the spine. Facet degenerative arthritic changes are noted throughout the entire cervical spine. The prespinal soft tissues are unremarkable. Mild upper cervical levoscoliosis is noted at C1-C2 and C2-C3 level. Uncovertebral hypertrophic changes are noted throughout the entire cervical spine. Mild mucoperiosteal thickening of the sphenoid sinus and floor of the left maxillary sinus consistent with mild sinusitis. The visualized lung apices appear unremarkable. CT/CT cervical spine wo IV con IMPRESSION: 1. No acute intracranial pathology. 2. No CT evidence of acute cervical spine fracture or traumatic subluxation.
--- NOTE | ~2022-12-08 | XR_ITS ---
EXAMINATION: XR HIP, RIGHT CLINICAL INFORMATION: History of fall. COMPARISON: None available. TECHNIQUE: Two views of the right hip. FINDINGS: Comminuted intertrochanteric fracture of the right proximal femur. The femoral head is well-seated within the acetabulum. The remainder of the visualized bones of the pelvis appear intact. XR/XR hip RT w PEL1V IMPRESSION: Comminuted intertrochanteric fracture of the right proximal femur.
[2022-12-08 19:03] VITALS: BP 154/58; PULSE 75; O2SAT 91
[2022-12-08 19:16] VITALS: BP 168/61; PULSE 75; RESP 20; TEMP 36.7; O2SAT 94; BMI 32.8
[2022-12-08 20:09] LABS: MANUAL DIFF FLAG NO
[2022-12-08 20:10] LABS: Hematocrit 32.3 % (42.0-52.0); Hemoglobin 11.1 g/dl (14.0-18.0); Imm Gran Pct Auto 0.5 % (0.0-0.4); Mean Corpuscular HGB Conc 34.4 g/dl (31.0-36.0); Mean Corpuscular Hemoglobin 32.2 pg (27.0-33.0); Mean Corpuscular Volume 93.6 fL (80.0-98.0); Mean Platelet Volume 10.3 fL (9.4-12.4); Neutrophils Percent Auto 60.9 % (45-73); Platelet Count 152 X10*3/uL (160-400); Red Blood Count 3.45 X10*6/uL (4.60-5.80); Red Cell Distribution Width 13.3 % (11.0-16.0); White Blood Count 8.9 X10*3/uL (4.8-10.8)
--- NOTE | 2022-12-08 20:10 | ED.FALL ---
HPI - Fall General Chief Complaint: Fall Stated Complaint: fall Time Seen by Provider: 12/08/22 20:10 Source: patient and family Mode of arrival: EMS Limitations: no limitations History of Present Illness HPI Narrative: Patient 77 years old with history of hypertension hyperlipidemia diabetes peripheral vascular disease CKD CAD status post CABG, CHF, aortic stenosis aortic valve area 1.32 with mean gradient of 20 mmHg in the echo done on apparently was getting a pizza started feeling dizzy and passed out hitting his head on a car which was parked outside the store complaining of pain in the right hip denies any chest pain or palpitation POC was 320 Related Data Home Medications Medication Instructions Recorded Confirmed ascorbic acid (vitamin C) 500 mg 500 mg PO DAILY 06/07/21 11/26/22 tablet dorzolamide 22.3 mg-timolol 6.8 1 drp ophthalmic (eye) BID 06/07/21 11/26/22 mg/mL eye drops guselkumab 100 mg/mL subcutaneous mg subcut 06/07/21 11/26/22 auto-injector (Varsha) multivitamin 1 tab PO DAILY 06/07/21 11/26/22 Previous Rx's Medication Instructions Recorded acetaminophen 500 mg tablet 500 mg PO Q6H PRN pain or fever 01/30/21 (Tylenol Extra Strength) #20 tabs pen needle, diabetic 32 gauge x #400 ea 10/19/21 (BD Martina 2nd Gen Pen Needle) blood sugar diagnostic (FreeStyle #150 ea 08/05/22 Lite Strips) 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 meter (FreeStyle #1 ea 08/05/22 [place] Lite kit) lancets 28 gauge (FreeStyle #100 ea 08/05/22 Lancets) amlodipine 10 mg tablet 10 mg PO DAILY #90 tabs 11/21/22 aspirin 81 mg tablet,delayed 81 mg PO DAILY #90 tabs 11/21/22 release cholecalciferol (vitamin D3) 25 25 mcg PO DAILY #90 tabs 11/21/22 mcg (1,000 unit) tablet dulaglutide 1.5 mg/0.5 mL 1.5 mg (0.5 mL) subcut QWEEK #2 mL 11/21/22 subcutaneous pen injector (KarissaTaplet) gabapentin 300 mg capsule 300 mg PO BEDTIME #90 caps 08/31/23 insulin degludec 100 unit/mL (3 18 unit (0.18 mL) subcut DAILY 90 11/21/22 mL) subcutaneous pen days #16.2 mL insulin lispro 100 unit/mL 5 - 9 unit (0.05 - 0.09 mL) subcut 11/21/22 subcutaneous pen (Humalog KwikPen TID 90 days #15 mL (U-100) Insulin) losartan 25 mg tablet 25 mg PO DAILY 90 days #90 tabs 11/21/22 metoprolol succinate 25 mg 25 mg PO DAILY #90 tabs 11/21/22 tablet,extended release 24 hr rosuvastatin 40 mg tablet 40 mg PO DAILY 90 days #90 tabs 11/21/22 Allergies Allergy/AdvReac Type Severity Reaction Status Date / Time furosemide AdvReac Intermediate Dizziness Verified 11/26/22 15:14 Review of Systems Review of Systems: Yes all other systems are reviewed and are negative [facility] Past Medical History Medical History Impacted cerumen of right ear Impacted cerumen of both ears Epidermoid cyst of skin of cheek Mass of face Allergic rhinitis Trigger finger, right middle finger Fracture of distal end of left radius with routine healing Superficial abrasion Pneumonia due to COVID-19 virus Acute hypoxemic respiratory failure due to COVID-19 Distal radius fracture, right Renal insufficiency Trigger finger, right middle finger Respiratory tract infection Aortic stenosis Preoperative clearance Iliac artery stenosis, 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 History of renal calculi Compression fracture of L1 lumbar vertebra Infective endocarditis Glaucoma Tobacco abuse Left carotid stenosis GERD (gastroesophageal reflux disease) Pulmonary nodule Cardiomyopathy Congestive heart failure Overweight (BMI 25.0-29.9) Carotid artery stenosis PVD (peripheral vascular disease) Dyslipidemia Hypertension CAD (coronary artery disease) Diabetic retinopathy associated with type 2 diabetes mellitus Diabetic polyneuropathy associated with type 2 diabetes mellitus CKD stage 3 due to type 2 diabetes mellitus Diabetic 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 Surgical History Hx of shoulder surgery Hx of coronary artery bypass graft Hx of cataract removal with insertion of prosthetic lens Hx of tonsillectomy Hx of appendectomy Hx of arthroscopy of right knee Family History Family History Father Stomach cancer Mother Diabetes Brother Prostate abscess Social History Social History Housing: Apartment Alcohol intake: never Patient Tobacco Use Status: Former Tobacco user Tobacco use type: Cigarette Cigarette Packs Per Day: 0.25 Cigarettes Per Day: 3 Smoked in Last 30 Days: No e-Cigarette/Vaping Use: Never Used Second Hand Smoke Exposure: Yes Use of substances other than those prescribed or required for medical reasons: No Advance Directives: Yes Advance Directives on File: Yes Advance Directives Date on File: 06/08/21 service: No Current occupational status: 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 Oriented X3. No acute distress. Eyes: PERRLA, No Nystagmus ENT: Pharynx normal. Oral Mucosa moist Neck: Normal inspection. Neck supple. No midline tenderness CVS: Normal heart rate and rhythm. Pulses normal. Respiratory: No respiratory distress. Equal air entry bilateral, no wheezing/rales/rhonchi Abdomen: Soft and nontender. Bowel sounds are present, no mass palpable, no CVA tenderness Skin: Skin warm and dry. Normal skin color. Normal skin turgor. Extremities: No lower extremity edema. No calf tenderness , tender right hip++ shortened and externally rotated Neuro: Oriented X 3. No motor deficit. No sensory deficit.No cerebellar signs , cranial nerves II-XII intact Medications Administered Discontinued Medications Generic Name Dose Route Start Last Admin Trade Name Freq PRN Reason Stop Dose Admin Sodium Chloride 1,000 mls @ 999 mls/hr 12/08/22 21:30 12/08/22 22:29 Ns IV 12/08/22 22:30 Infused .Q1H1M AMARILIS Infusion Insulin Human Lispro 10 unit 12/08/22 21:06 12/08/22 21:22 Insulin Lispro 100 Unit/Ml 3 Ml Vial SUBCUT 12/08/22 21:07 10 unit ONCE ONE Administration Lorazepam 1 mg 12/08/22 21:52 12/08/22 22:17 Lorazepam 2 Mg/Ml Vial IVPUSH 12/08/22 21:53 1 mg STAT STA Administration Morphine Sulfate 4 mg 12/08/22 21:00 12/08/22 21:16 Morphine Sulfate 4 Mg/Ml Cartridge IVPUSH 12/08/22 21:01 4 mg ONCE ONE Administration Protocol Ondansetron HCl 4 mg 12/08/22 21:01 12/08/22 21:22 Ondansetron Hcl 4 Mg/2 Ml Vial IVPUSH 12/08/22 21:02 4 mg ONCE ONE Administration Medical Decision Making Medical Decision Making [facility] Narrative: Patient with right intertrochanteric fracture after fall after syncope episode etiology not very clear admit patient for orthopedic evaluation and hospitalist to rule out cardiac review/cardiac cause for syncope/near-syncope Differential Diagnosis Differential Diagnoses: The differential diagnosis associated with the presentation includes Syncope/seizure/near syncope/cardiac arrhythmias/hip fracture/hypoglycemia Admission/Observation Consideration of admission/observation: Escalation of care including admission/observation considered Consult Healthcare Provider Management of the patient was discussed with: Hospitalist Lab Data [facility] Lab Attestation statement: I reviewed the patient's lab results. 12/08/22 20:03 12/08/22 20:03 Labs: Lab Results 12/08/22 12/08/22 Range/Units 20:03 20:59 WBC 8.9 (4.8-10.8) X10*3/uL RBC 3.45 L (4.60-5.80) X10*6/uL Hgb 11.1 L (14.0-18.0) g/dl Hct 32.3 L (42.0-52.0) % MCV 93.6 (80.0-98.0) fL MCH 32.2 (27.0-33.0) pg MCHC 34.4 (31.0-36.0) g/dl RDW 13.3 (11.0-16.0) % Plt Count 152 L (160-400) X10*3/uL MPV 10.3 (9.4-12.4) fL Immature Gran % (Auto) 0.5 H (0.0-0.4) % Neut % (Auto) 60.9 (45-73) % Lymph % (Auto) 25.3 (20-40) % [place] % (Auto) 9.3 (2-11) % Eos % (Auto) 3.8 (0-4) % Baso % (Auto) 0.8 (0-2) % Lymph # (Auto) 2.3 (1.2-4.9) X10*3/uL [place] # (Auto) 0.8 (0.1-1.2) X10*3/uL Eos # (Auto) 0.3 (0.0-0.4) X10*3/uL Baso # (Auto) 0.1 (0.0-0.2) X10*3/uL Abs Immat Gran (auto) 0.03 (0.00-0.03) X10*3/uL Absolute Neuts (auto) 5.4 (2.0-8.3) x10*3/uL Absolute Nucleated RBC 0.000 (0.0-0.012) X10*3/uL Nucleated RBC % (auto) 0.0 (0.0-0.2) /100WBC PT 11.0 L (11.1-13.3) SEC INR 0.9 (0.9-1.1) Sodium 139 (135-145) mmol/L Potassium 5.1 (3.3-5.1) mmol/L Chloride 106 (96-108) mmol/L Carbon Dioxide 24 (22-29) mmol/L Anion Gap 14 (12-20) BUN 25 H (9-16) mg/dL Creatinine 1.33 (0.5-1.4) mg/dL Estim Creat Clear Calc 48.6 Estimated GFR 52 Random Glucose 355 H* (60-115) mg/dL Calcium 9.3 (8.4-10.2) mg/dL Total Bilirubin 0.4 (0.0-1.0) mg/dL Direct Bilirubin 0.1 (0.0-0.5) mg/dL AST 31 (5-37) U/L ALT 50 H (0-40) U/L Alkaline Phosphatase 99 (39-117) U/L Troponin I High Sens 6.2 (<3.5-35.0) ng/L Total Protein 7.3 (6.5-8.0) g/dL Albumin 3.9 (3.5-5.0) g/dL Lipase 40 (8-78) U/L Independent Interpretation I performed an independent interpretation of an: EKG Interpretation: Normal sinus rhythm heart rate 73 beats per no acute ST T wave changes no acute ischemia Radiology Impression Discussion of test interpretation with radiology: I have reviewed the radiologist's reading. Discharge Plan Discharge Clinical Impression: Syncope, Intertrochanteric fracture of right femur Patient Disposition: Admitted As Inpatient
[2022-12-08 20:38] LABS: Troponin-I High Sensitivity 6.2 ng/L (<3.5-35.0)
[2022-12-08 21:01] LABS: Alanine Aminotransferase 50 U/L (0-40); Albumin Level 3.9 g/dL (3.5-5.0); Alkaline Phosphatase 99 U/L (39-117); Anion Gap 14 (12-20); Aspartate Amino Transferase 31 U/L (5-37); Basophils Absolute Auto 0.1 X10*3/uL (0.0-0.2); Basophils Percent Auto 0.8 % (0-2); Bilirubin Direct 0.1 mg/dL (0.0-0.5); Bilirubin Total 0.4 mg/dL (0.0-1.0); Blood Urea Nitrogen 25 mg/dL (9-16); Calcium 9.3 mg/dL (8.4-10.2); Carbon Dioxide 24 mmol/L (22-29); Chloride 106 mmol/L (96-108); Creatinine Clr Calc Pharmacy 48.6; Eosinophils Absolute Auto 0.3 X10*3/uL (0.0-0.4); Eosinophils Percent Auto 3.8 % (0-4); Estimated Glomerular Filt Rate 52; Glucose Random 355 mg/dL (60-115); Imm Gran Abs Auto 0.03 X10*3/uL (0.00-0.03); Lipase 40 U/L (8-78); Lymphocytes Absolute Auto 2.3 X10*3/uL (1.2-4.9); Lymphocytes Percent Auto 25.3 % (20-40); Monocytes Absolute Auto 0.8 X10*3/uL (0.1-1.2); Monocytes Percent Auto 9.3 % (2-11); Neutrophils Absolute Auto 5.4 x10*3/uL (2.0-8.3); Potassium 5.1 mmol/L (3.3-5.1); Sodium 139 mmol/L (135-145); Total Protein 7.3 g/dL (6.5-8.0)
[2022-12-08] MEDS: Morphine Sulfate 4 MG/ML CARTRIDGE IVPUSH (21:16)
--- NOTE | 2022-12-08 21:18 | PM.IMHP ---
History of Present Illness Date of Service: 12/08/22 Chief Complaint: Fall This is a 77-year-old male with pertinent history of insulin-dependent diabetes mellitus with neuropathy, congestive heart failure with preserved ejection fraction, gastroesophageal reflux disease, coronary artery disease, essential hypertension who presents to the emergency department for evaluation after a fall. Patient states he went to [employer] and when he 1st started walking from a sitting position, he felt dizzy and lightheaded and the next thing he knew he was on the floor. Patient fell on his right side. He has been complaining of right-sided pain since the fall which is worse with movement. Denies chest discomfort or palpitations prior to the fall. Denies loss of consciousness. No rhythmic jerking movement of extremities. No fever, chills, shortness of breath, abdominal pain, changes in urinary or bowel habits. In the emergency department, imaging with community intertrochanteric fracture of the right proximal femur Review of Systems Constitutional: Constitutional: Reports no additional constitutional complaints ENT: Reports dizziness Cardiovascular: Cardiovascular: Reports no additional cardiovascular complaints Respiratory: Respiratory: Reports no additional respiratory complaints Gastrointestinal: Gastrointestinal: Reports no additional gastrointestinal complaints Genitourinary: Genitourinary: Reports no additional male genitourinary complaints Musculoskeletal: Musculoskeletal: Reports arthralgias Neurologic: Reports dizziness [facility] Medical History Impacted cerumen of right ear Impacted cerumen of both ears Epidermoid cyst of skin of cheek Mass of face Allergic rhinitis Trigger finger, right middle finger Fracture of distal end of left radius with routine healing Superficial abrasion Pneumonia due to COVID-19 virus Acute hypoxemic respiratory failure due to COVID-19 Distal radius fracture, right Renal insufficiency Trigger finger, right middle finger Respiratory tract infection Aortic stenosis Preoperative clearance Iliac artery stenosis, 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 History of renal calculi Compression fracture of L1 lumbar vertebra Infective endocarditis Glaucoma Tobacco abuse Left carotid stenosis GERD (gastroesophageal reflux disease) Pulmonary nodule Cardiomyopathy Congestive heart failure Overweight (BMI 25.0-29.9) Carotid artery stenosis PVD (peripheral vascular disease) Dyslipidemia Hypertension CAD (coronary artery disease) Diabetic retinopathy associated with type 2 diabetes mellitus Diabetic polyneuropathy associated with type 2 diabetes mellitus CKD stage 3 due to type 2 diabetes mellitus Diabetic 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 Family History Father Stomach cancer Mother Diabetes Brother Prostate abscess Surgical History Hx of shoulder surgery Hx of coronary artery bypass graft Hx of cataract removal with insertion of prosthetic lens Hx of tonsillectomy Hx of appendectomy Hx of arthroscopy of right knee Social History Housing: Apartment Alcohol intake: never Patient Tobacco Use Status: Former Tobacco user Tobacco use type: Cigarette Cigarette Packs Per Day: 0.25 Cigarettes Per Day: 3 e-Cigarette/Vaping Use: Never Used Second Hand Smoke Exposure: Yes Advance Directives: Yes Advance Directives on File: Yes Advance Directives Date on File: 06/08/21 service: No Current occupational status: 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 Cognitive needs: No Hearing needs: No Vision needs: No Meds Allergies Allergy/AdvReac Type Severity Reaction Status Date / Time furosemide AdvReac Intermediate Dizziness Verified 11/26/22 15:14 Home Medications Medication Instructions Recorded Confirmed Last Taken Type ascorbic acid (vitamin C) 500 mg 500 mg PO DAILY 06/07/21 11/26/22 Unknown History tablet dorzolamide 22.3 mg-timolol 6.8 1 drp ophthalmic (eye) BID 06/07/21 11/26/22 Unknown History mg/mL eye drops guselkumab 100 mg/mL subcutaneous mg subcut 06/07/21 11/26/22 Unknown History auto-injector (Tremfya) multivitamin 1 tab PO DAILY 06/07/21 11/26/22 Unknown History Physical Exam Vital Signs and Narrative: Vital Signs: Last Vital Signs Temp 98.1 F 12/08/22 19:16 Pulse 75 12/08/22 19:16 Resp 20 12/08/22 19:16 BP 168/61 H 12/08/22 19:16 Pulse Ox 94 12/08/22 19:16 O2 Del Method Room Air 12/08/22 19:16 BMI result Body Mass Index 32.8 Elderly male lying in bed in no distress Neck supple, no JVD Regular rate and rhythm, S1-S2 heard Regular breath sounds bilaterally, no wheezing or crackles appreciated Abdomen soft nontender, no guarding, no rigidity Patient is awake, alert and oriented to self, place, time and person ; no focal motor deficit Musculoskeletal: Reduced right lower extremity movement due to pain Psych: Normal mood No pedal edema Results Labs 12/08/22 20:03 12/08/22 20:03 Labs: Laboratory Results - last 24 hr 12/08/22 20:03 MCV 93.6 MCH 32.2 MCHC 34.4 RDW 13.3 Plt Count 152 L MPV 10.3 Immature Gran % (Auto) 0.5 H Neut % (Auto) 60.9 Lymph % (Auto) 25.3 [place] % (Auto) 9.3 Eos % (Auto) 3.8 Baso % (Auto) 0.8 Lymph # (Auto) 2.3 [place] # (Auto) 0.8 Eos # (Auto) 0.3 Baso # (Auto) 0.1 Abs Immat Gran (auto) 0.03 Absolute Neuts (auto) 5.4 Absolute Nucleated RBC 0.000 Nucleated RBC % (auto) 0.0 Anion Gap 14 Estim Creat Clear Calc 48.6 Estimated GFR 52 Random Glucose 355 H* Calcium 9.3 Total Bilirubin 0.4 Direct Bilirubin 0.1 AST 31 ALT 50 H Alkaline Phosphatase 99 Total Protein 7.3 Albumin 3.9 Lipase 40 Imaging Radiologist's Impressions: Impressions Chest X-Ray 12/08/22 20:35 IMPRESSION: No radiographic evidence of pneumonia. Hip/Pelvis X-Ray 12/08/22 20:35 IMPRESSION: Comminuted intertrochanteric fracture of the right proximal femur. Assessment and Plan (1) Pre-syncope: Status: Acute (2) Intertrochanteric fracture of right femur: Status: Acute Plan This is a 77-year-old male with pertinent history of insulin-dependent diabetes mellitus with neuropathy, congestive heart failure with preserved ejection fraction, gastroesophageal reflux disease, coronary artery disease, essential hypertension who presents to the emergency department for evaluation after a fall. #. Presyncope. Likely orthostatic. Will resuscitate with IV crystalloids and repeat orthostatic in a.m. #. Inter trochanteric fracture of right femur due to fall in the setting of above. Initiate IV opioid p.r.n. symptomatic relief. Orthopedic surgery consulted from the ER, appreciate assistance. Will keep patient NPO after midnight #. Preoperative risk. RCRI score 3, class 4 risk. Will order BNP #. Insulin-dependent diabetes mellitus with hyperglycemia and neuropathy. Initiating Accu-Cheks with sliding scale insulin. Reduce home basal insulin. Continue gabapentin #. Congestive heart failure with preserved ejection fraction. No decompensation during admission #. CAD status post CABG. On high-intensity statin, beta-mary and aspirin Med rec pending DVT prophylaxis: Hold Lovenox until surgical evaluation Full code Admit as inpatient and will require two night minimum hospital stay for evaluation of intratrochanteric right femur fracture. Specialist consult pending Time Spent With Patient Time: Total time managing care of this patient today ____ minutes. Quality Stroke Does the patient have a stroke diagnosis?: No VTE Prior VTE?: No VTE Risk Level:: Medical - moderate - high VTE Device Contraindication: Treatment Not Indicated VTE Drug Contraindication: Treatment Not Indicated
[2022-12-08] MEDS: ondansetron HCL 4 MG/2 ML VIAL IVPUSH (21:22)
[2022-12-08] MEDS: Insulin Lispro 100 UNIT/ML 3 ML VIAL 10 UNIT SUBCUT (21:22)
[2022-12-08] MEDS: 0.9 % Sodium Chloride 1,000 ML 999 ML IV (21:24)
[2022-12-08] MEDS: LORazepam 2 MG/ML VIAL 1 MG IVPUSH (22:17)
[2022-12-08 22:18] LABS: INTERNATIONAL NORM RATIO 0.9 (0.9-1.1)
[2022-12-08 22:42] LABS: B Type Natriuretic Peptide 98 pg/mL (<100)
[2022-12-09 00:04] VITALS: BP 150/59; PULSE 79; RESP 16; TEMP 36.9; O2SAT 92
--- NOTE | 2022-12-09 01:11 | PC.NURSE ---
Patient resting on stretcher with eyes closed. breathing even, no s/s of distress noted. Patient sinus rhythm on monitor.
[2022-12-09] MEDS: Morphine Sulfate 4 MG/ML CARTRIDGE IVPUSH ×3 (02:34→20:07)
[2022-12-09] MEDS: 0.9 % Sodium Chloride Flush 3 ML SYRINGE IVFLUSH ×4 (02:42→20:10)
--- NOTE | 2022-12-09 02:45 | PC.NURSE ---
Patient showing s/s of discomfort, pain 10/31. Medicated per MAY.
--- NOTE | 2022-12-09 03:06 | PC.NURSE ---
Unable to obtain med list prior to patient getting Ativan and falling asleep. Patient unable to confirm med list at this time.
--- NOTE | 2022-12-09 03:30 | PC.NURSE ---
This RN took assignment over @ [phone]
[2022-12-09 05:12] LABS: MANUAL DIFF FLAG NO
[2022-12-09 05:16] LABS: Basophils Absolute Auto 0.1 X10*3/uL (0.0-0.2); Basophils Percent Auto 0.6 % (0-2); Eosinophils Absolute Auto 0.2 X10*3/uL (0.0-0.4); Eosinophils Percent Auto 1.4 % (0-4); Hemoglobin 9.7 g/dl (14.0-18.0); Imm Gran Abs Auto 0.05 X10*3/uL (0.00-0.03); Imm Gran Pct Auto 0.4 % (0.0-0.4); Lymphocytes Absolute Auto 1.8 X10*3/uL (1.2-4.9); Lymphocytes Percent Auto 14.6 % (20-40); Mean Corpuscular HGB Conc 33.4 g/dl (31.0-36.0); Mean Corpuscular Hemoglobin 31.4 pg (27.0-33.0); Mean Corpuscular Volume 93.9 fL (80.0-98.0); Mean Platelet Volume 10.5 fL (9.4-12.4); Monocytes Absolute Auto 1.1 X10*3/uL (0.1-1.2); Monocytes Percent Auto 8.9 % (2-11); Neutrophils Absolute Auto 9.2 x10*3/uL (2.0-8.3); Neutrophils Percent Auto 74.1 % (45-73); Platelet Count 150 X10*3/uL (160-400); Red Blood Count 3.09 X10*6/uL (4.60-5.80); Red Cell Distribution Width 13.4 % (11.0-16.0); White Blood Count 12.4 X10*3/uL (4.8-10.8)
[2022-12-09 05:29] LABS: Anion Gap 13 (12-20); Blood Urea Nitrogen 21 mg/dL (9-16); Calcium 8.6 mg/dL (8.4-10.2); Carbon Dioxide 22 mmol/L (22-29); Chloride 109 mmol/L (96-108); Creatinine Clr Calc Pharmacy 52.1; Estimated Glomerular Filt Rate 56; Glucose Random 223 mg/dL (60-115); Potassium 4.9 mmol/L (3.3-5.1); Sodium 139 mmol/L (135-145)
--- NOTE | 2022-12-09 05:31 | PC.NURSE ---
Pt 02 sat between 86-88 with 2L via NC. This RN raised the hob. Pt placed on 2.5L via NC and 02 @ 92% Plan of care ongoing.
[2022-12-09 05:54] VITALS: RESP 20
--- NOTE | 2022-12-09 07:00 | CA_ITS ---
Transthoracic Echocardiogram Patient (Last, First, Middle): Deyanira Vitale, Gender: Male Date of : 1945 Age: 77 Procedure Date: 12/09/2022 Procedure Type: Transthoracic Echocardiogram Location: ER Height: 167.64 cm Weight: 92.08 kg BSA: 2.01 m2 Heart Rate: 69 bpm BP: 147 / 60 mmHg [employer]visor [employer]: SB Referring MD: Lai Hudson MD Symptoms: syncope, Study Quality: Fair/right tilt/supine/unable to reposition ECG Rhythm: Sinus Conclusions: - Normal left ventricular size, thickness, and systolic function. The visually estimated ejection fraction is between 55-60%. - E/E prime ratio is >15, consistent with elevated filling pressures. - Mildly increased right ventricular cavity size. There is normal right ventricular systolic function. - There is moderate aortic valve stenosis. Findings Procedure Information Contrast agent, definity, is being given per protocol without apparent complications. The quality of the study was despite the use of contrast and endocardial definition remains poor. The study quality is limited by the patients inability to tolerate the test. Left Ventricle Normal left ventricular size, thickness, and systolic function. The visually estimated ejection fraction is between 55-60%. There is no evidence of regional wall motion abnormalities. Abnormal diastolic function is noted. Spectral Doppler is indicative of an impaired relaxation filling pattern. E/E prime ratio is >15, consistent with elevated filling pressures. Right Ventricle Mildly increased right ventricular cavity size. There is normal right ventricular systolic function. Atria The left atrium is normal in size. Aortic Valve There is moderate calcification of the aortic valve. There is moderate aortic valve stenosis. There is no aortic valve regurgitation. Mitral Valve There is trace mitral valve regurgitation. There is no mitral valve stenosis. Pulmonic Valve The pulmonic valve was not well visualized. Tricuspid Valve The tricuspid valve was not well visualized. Indeterminate right atrial pressure. Great Vessels All visible segments of the aorta are normal in size. The pulmonary artery was not well visualized. Venous The inferior vena cava was not well visualized. Pericardium/Pleural There is no evidence of pericardial effusion. Prior Study Comparison Changes noted compared to prior study. Mildly dilated RV. Elevated LV filling pressures. Measurements 2D Linear Measurements IVSd: 0.90 0.6-0.9/0.6-1.0 cm LVIDd: 3.90 3.9-5.3/4.2-5.9 cm LVIDd Index: 1.94 2.4-3.2/2.2-3.1 cm/m2 LVIDs: 3.00 2.0-3.6 cm LVPWd: 1.00 0.7-1.1 cm LA Diam: 3.50 2.7-3.8/3.0-4.0 cm LAIDs Index: 1.74 1.5-2.3 cm/m2 LV Mass: 141.22 67-162/88-224 g LV Mass Index: 70.26 43-95/49-115 g/m2 LVOT Diam: 2.20 3.0+(-)1.3 cm Mitral Valve MV Pk E: 1.20 MV PK A: 1.39 MV Decel Time: 288.00 E/A: 0.90 E'Lateral: 5.63 E'Medial: 3.90 E/E' Med: 30.80 E/E' Lat: 21.30 PHT: 84.00 MVA PHT: 2.62 Decel [place]: 4.15 Aortic Valve AoV Pk [place]: 3.30 AoV Mn [place]: 2.22 AoV VTI: 0.65 AoV Pk Grad: 44.00 Aov Mn Grad: 23.00 SCOTT Cont.VTI: 1.64 LVOT LVOT Pk [place]: 1.13 LVOT Mn [place]: 0.76 LVOT VTI: 0.28 LVOT Pk Grad: 5.00 LVOT Mn Grad: 3.00 LVOT Diam: 2.20 LVOT Area: 3.80 Diastolic Function MV Pk E: 1.20 MV Pk A: 1.39 E/A: 0.90 E'Medial: 3.90 E/E' Med: 30.80 E' Laterial: 5.63 E/E' Lat: 21.30 Right Ventricle TAPSE (mm): 20.00 TVS' [place]: 11.00 Tricuspid Valve RA Press: 3.00 Great Vessels Aorta Sinus of Valsalva: 3.10 2.0-3.5 cm Ao Asc: 3.40 2.1-3.4 cm Pulmonary Veins Pulm Vein S/D 1.30 Updated in Other Vendor System with Status of Final Lai Hudson MD electronically signed on 12/09/2022 3:56:10 PM with status of Final
--- NOTE | 2022-12-09 07:00 | PC.NURSE ---
Handoff Report given to oncoming RN.
[2022-12-09 07:07] VITALS: BP 134/59; PULSE 69; RESP 20; O2SAT 94
[2022-12-09 07:16] LABS: Glucose, Whole Blood 223 mg/dL (60-115)
--- NOTE | 2022-12-09 09:04 | P.CONOP_ITS ---
History of Present Illness HPI Consult date: 12/09/22 Chief complaint: fall Narrative: This is a 77-year-old male with pertinent history of insulin-dependent diabetes mellitus with neuropathy, congestive heart failure with preserved ejection fraction, gastroesophageal reflux disease, coronary artery disease, essential hypertension who presents to the emergency department for evaluation after a fall. Patient states he went to [employer] and when he 1st started walking from a sitting position, he felt dizzy and lightheaded and the next thing he knew he was on the floor. Patient fell on his right side. He has been complaining of right-sided pain since the fall which is worse with movement. In the emergency department, imaging with community intertrochanteric fracture of the right proximal femur. He was admitted to the medical service and orthopedics was consulted for further recommendations. Review of Systems 2 Review of Systems: per [facility] Past Medical History Medical History Impacted cerumen of right ear Impacted cerumen of both ears Epidermoid cyst of skin of cheek Mass of face Allergic rhinitis Trigger finger, right middle finger Fracture of distal end of left radius with routine healing Superficial abrasion Pneumonia due to COVID-19 virus Acute hypoxemic respiratory failure due to COVID-19 Distal radius fracture, right Renal insufficiency Trigger finger, right middle finger Respiratory tract infection Aortic stenosis Preoperative clearance Iliac artery stenosis, 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 History of renal calculi Compression fracture of L1 lumbar vertebra Infective endocarditis Glaucoma Tobacco abuse Left carotid stenosis GERD (gastroesophageal reflux disease) Pulmonary nodule Cardiomyopathy Congestive heart failure Overweight (BMI 25.0-29.9) Carotid artery stenosis PVD (peripheral vascular disease) Dyslipidemia Hypertension CAD (coronary artery disease) Diabetic retinopathy associated with type 2 diabetes mellitus Diabetic polyneuropathy associated with type 2 diabetes mellitus CKD stage 3 due to type 2 diabetes mellitus Diabetic 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 diabetes mellitus 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 Family History Family History Father Stomach cancer Mother Diabetes Brother Prostate abscess Surgical History Surgical History Hx of shoulder surgery Hx of coronary artery bypass graft Hx of cataract removal with insertion of prosthetic lens Hx of tonsillectomy Hx of appendectomy Hx of arthroscopy of right knee Social History Social History Housing: Apartment Alcohol intake: never Patient Tobacco Use Status: Former Tobacco user Tobacco use type: Cigarette Cigarette Packs Per Day: 0.25 Cigarettes Per Day: 3 Smoked in Last 30 Days: No e-Cigarette/Vaping Use: Never Used Second Hand Smoke Exposure: Yes Use of substances other than those prescribed or required for medical reasons: No Advance Directives: Yes Advance Directives on File: Yes Advance Directives Date on File: 06/08/21 service: No Current occupational status: 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 Cognitive needs: No Hearing needs: No Vision needs: No Meds Allergies Allergy/AdvReac Type Severity Reaction Status Date / Time furosemide AdvReac Intermediate Dizziness Verified 11/26/22 15:14 Active Medications: Current Medications Acetaminophen (Acetaminophen 325 Mg Tablet) 650 mg PO Q6H PRN PRN Reason: Pain, Mild (Pain Scale 1-3) Dextrose (Dextrose 50 % 25 Gm/50 Ml Syringe) 25 gm IVPUSH Q15M PRN; Protocol PRN Reason: per Hypoglycemia Standing Ord. Glucose (Glucose Gel 15 Gm Gel..Gram.) 15 gm PO Q15M PRN; Protocol PRN Reason: per Hypoglycemia Standing Ord. Insulin Human Lispro (Insulin Lispro 100 Unit/Ml 3 Ml Vial) [facility]; Protocol Last Admin: 12/09/22 08:06 Dose: Not Given Melatonin (Melatonin 3 Mg Tablet) 6 mg PO BEDTIME PRN PRN Reason: Insomnia Morphine Sulfate (Morphine Sulfate 4 Mg/Ml Cartridge) 4 mg IVPUSH Q4H PRN; Protocol PRN Reason: Pain, Severe (Pain Scale 7-10) Last Admin: 12/09/22 02:34 Dose: 4 mg Ondansetron HCl (Ondansetron Hcl 4 Mg/2 Ml Vial) 4 mg IVPUSH Q8H PRN PRN Reason: Nausea and Vomiting Sodium Chloride (0.9 % Sodium Chloride Flush 3 Ml Syringe) 3 ml IVFLUSH [facility] Last Admin: 12/09/22 02:42 Dose: 3 ml Home Medications Medication Instructions Recorded Confirmed Last Taken Type ascorbic acid (vitamin C) 500 mg 500 mg PO DAILY 06/07/21 11/26/22 Unknown History tablet dorzolamide 22.3 mg-timolol 6.8 1 drp ophthalmic (eye) BID 06/07/21 11/26/22 Unknown History mg/mL eye drops guselkumab 100 mg/mL subcutaneous mg subcut 06/07/21 11/26/22 Unknown History auto-injector (Tremfya) multivitamin 1 tab PO DAILY 06/07/21 11/26/22 Unknown History furosemide 20 mg tablet 20 mg PO DAILY 12/09/22 Unknown History Physical Exam 2 Vital Signs: Vital Signs: Last Vital Signs Temp 98.5 F 12/09/22 00:04 Pulse 69 12/09/22 07:07 Resp 20 12/09/22 07:07 BP 134/59 L 12/09/22 07:07 Pulse Ox 94 12/09/22 07:07 O2 Del Method Nasal Cannula 12/09/22 07:07 O2 Flow Rate 3 12/09/22 07:07 BMI result Body Mass Index 32.8 Const: General: cooperative, healthy appearing, comfortable and no acute distress Extrem: Other: Right hip pain with log roll unable to SLR, he is able to plantar and dorsi flex, nvi. Results Labs 12/09/22 05:01 12/09/22 05:01 Labs: Abnormal lab results 12/08/22 12/08/22 12/09/22 Range/Units 20:03 20:59 05:01 WBC 12.4 H (4.8-10.8) X10*3/uL RBC 3.45 L 3.09 L (4.60-5.80) X10*6/uL Hgb 11.1 L 9.7 L (14.0-18.0) g/dl Hct 32.3 L 29.0 L (42.0-52.0) % Plt Count 152 L 150 L (160-400) X10*3/uL Immature Gran % (Auto) 0.5 H (0.0-0.4) % Neut % (Auto) 74.1 H (45-73) % Lymph % (Auto) 14.6 L (20-40) % Abs Immat Gran (auto) 0.05 H (0.00-0.03) X10*3/uL Absolute Neuts (auto) 9.2 H (2.0-8.3) x10*3/uL PT 11.0 L (11.1-13.3) SEC Chloride 109 H (96-108) mmol/L BUN 25 H 21 H (9-16) mg/dL POC Glucose (60-115) mg/dL Random Glucose 355 H* 223 H (60-115) mg/dL ALT 50 H (0-40) U/L 12/09/22 Range/Units 07:11 WBC (4.8-10.8) X10*3/uL RBC (4.60-5.80) X10*6/uL Hgb (14.0-18.0) g/dl Hct (42.0-52.0) % Plt Count (160-400) X10*3/uL Immature Gran % (Auto) (0.0-0.4) % Neut % (Auto) (45-73) % Lymph % (Auto) (20-40) % Abs Immat Gran (auto) (0.00-0.03) X10*3/uL Absolute Neuts (auto) (2.0-8.3) x10*3/uL PT (11.1-13.3) SEC Chloride (96-108) mmol/L BUN (9-16) mg/dL POC Glucose 223 H (60-115) mg/dL Random Glucose (60-115) mg/dL ALT (0-40) U/L H & H 12/08/22 12/09/22 Range/Units 20:03 05:01 Hgb 11.1 L 9.7 L (14.0-18.0) g/dl Hct 32.3 L 29.0 L (42.0-52.0) % Coagulation 12/08/22 Range/Units 20:59 INR 0.9 (0.9-1.1) All other labs normal. Assessment and Plan (1) Intertrochanteric fracture of right femur: Qualifiers: Encounter type: initial encounter Fracture alignment: displaced F racture type: closed Qualified Code(s): S72.141A - Displaced intertrochanteric fracture of right femur, initial encounter for closed fracture Status: Acute Plan I discussed the case with Dr masters and explained the extent of the injury to the patient and options available which include surgical intervention. I explained the procedure in detail along with the length of recovery and rehab course. I explained the risk, benefits and alternatives. Risk including, but not limited to infection, blood clots, bleeding, non union or malunion and nerve/tissue damage to surrounding areas. I answered all their questions and with their understanding they have consented to move forward with Operative Fixation of the right hip . The patient will be T&S, med clearance obtained and NPO after midnight. Time Spent With Patient Time: Total time managing care of this patient today ____ minutes. Procedures Date of Service Date of Service: 12/09/22
[2022-12-09 10:40] VITALS: BP 142/55; PULSE 73; RESP 18; O2SAT 95
--- NOTE | 2022-12-09 10:54 | PHA.MEDREC ---
Pharmacy Consult ? Medication Reconciliation Pharmacy has completed the medication reconciliation. Went to speak to patient but he was unsure of what medications he takes and directed me to call his Brianna ([phone]), Spoke to Abigali over the phone who told me she would come in to show me medications, brought in bag of meds and most matched claim history. She told me he takes his Trulicity on Sundays but did not have it yesterday, also told me she gives all of his medications at nighttime all together. Also stated he gets 20 units of his long acting insulin and she always gives him 10 units before meals of his short acting
--- NOTE | 2022-12-09 10:59 | PC.NURSE ---
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 pt a&ox3. respirations even and unlabored. lung sounds clear bilaterally. pt on 2.5L nasal cannula sating at 95%. pt reports 10/10 pain in his right hip and leg with no redness, swelling or bruising noted. positive pedal pulses and CMS in tact and pt able to wiggle toes. pt has jimenez in place draining dark yellow urine. 200ml voided at this time. pt denies any pain with urination. normal sinus on tele. pt medicated for pain per mar.
[2022-12-09] MEDS: Lactated Ringers 1,000 ML 80 ML IVCONT (12:11)
[2022-12-09 12:21] LABS: Glucose, Whole Blood 192 mg/dL (60-115)
--- NOTE | 2022-12-09 13:19 | P.CONCA_ITS ---
History of Present Illness History of Present Illness Date of Service: 12/09/22 Requesting physician: Emeka Schroeder Chief complaint: fall Narrative: Pleasant 77-year-old gentleman who follows with our clinic and has history of moderate aortic valve stenosis, kidney disease, diabetes, coronary disease status post CABG, hypertension and hyperlipidemia is presenting with syncope. He said he went to get [employer] and while he was in the shop he felt dizzy and came out and then passed out. Does not have any chest discomfort or shortness of breath. History is not very clear but he is describing some dizziness before he passed out. He has history of coronary artery disease with bypass surgery and has moderate aortic valve stenosis. Unfortunately after the fall he has intertrochanteric fracture of the right femur. We have been asked to assess his perioperative cardiovascular risk. He is denying any chest discomfort shortness of breath. He was seen in the clinic on November 26 and was overall clinically stable. COUNT INCLUDES [facility] Past Medical History Medical History Impacted cerumen of right ear Impacted cerumen of both ears Epidermoid cyst of skin of cheek Mass of face Allergic rhinitis Trigger finger, right middle finger Fracture of distal end of left radius with routine healing Superficial abrasion Pneumonia due to COVID-19 virus Acute hypoxemic respiratory failure due to COVID-19 Distal radius fracture, right Renal insufficiency Trigger finger, right middle finger Respiratory tract infection Aortic stenosis Preoperative clearance Iliac artery stenosis, 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 History of renal calculi Compression fracture of L1 lumbar vertebra Infective endocarditis Glaucoma Tobacco abuse Left carotid stenosis GERD (gastroesophageal reflux disease) Pulmonary nodule Cardiomyopathy Congestive heart failure Overweight (BMI 25.0-29.9) Carotid artery stenosis PVD (peripheral vascular disease) Dyslipidemia Hypertension CAD (coronary artery disease) Diabetic retinopathy associated with type 2 diabetes mellitus Diabetic polyneuropathy associated with type 2 diabetes mellitus CKD stage 3 due to type 2 diabetes mellitus Diabetic 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 diabetes mellitus MCC (current) use of insulin Family History Family History Father Stomach cancer Mother Diabetes Brother Prostate abscess Surgical History Surgical History Hx of shoulder surgery Hx of coronary artery bypass graft Hx of cataract removal with insertion of prosthetic lens Hx of tonsillectomy Hx of appendectomy Hx of arthroscopy of right knee Social History Social History Housing: Apartment Alcohol intake: never Patient Tobacco Use Status: Former Tobacco user Tobacco use type: Cigarette Cigarette Packs Per Day: 0.25 Cigarettes Per Day: 3 Smoked in Last 30 Days: No e-Cigarette/Vaping Use: Never Used Second Hand Smoke Exposure: Yes Use of substances other than those prescribed or required for medical reasons: No Advance Directives: Yes Advance Directives on File: Yes Advance Directives Date on File: 06/08/21 Nutrition Risks: No Nutritional Risk service: No Current occupational status: 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 Cognitive needs: No Hearing needs: No Vision needs: No Meds Allergies Allergy/AdvReac Type Severity Reaction Status Date / Time furosemide AdvReac Intermediate Dizziness Verified 11/26/22 15:14 Active Medications: Current Medications Acetaminophen (Acetaminophen 325 Mg Tablet) 650 mg PO Q6H PRN PRN Reason: Pain, Mild (Pain Scale 1-3) Dextrose (Dextrose 50 % 25 Gm/50 Ml Syringe) 25 gm IVPUSH Q15M PRN; Protocol PRN Reason: per Hypoglycemia Standing Ord. Glucose (Glucose Gel 15 Gm Gel..Gram.) 15 gm PO Q15M PRN; Protocol PRN Reason: per Hypoglycemia Standing Ord. Cefazolin Sodium/Dextrose (Ancef) 2 gm in 50 mls @ 100 mls/hr IV PREOP ONE Stop: 12/10/22 09:29 Lactated Ringer's (Lr) 1,000 mls @ 80 mls/hr IVCONT [id number] [facility] Last Admin: 12/09/22 12:11 Dose: 80 mls/hr Insulin Human Lispro (Insulin Lispro 100 Unit/Ml 3 Ml Vial) 0 unit SUBCUT [facility]; Protocol Last Admin: 12/09/22 12:19 Dose: Not Given Melatonin (Melatonin 3 Mg Tablet) 6 mg PO BEDTIME PRN PRN Reason: Insomnia Morphine Sulfate (Morphine Sulfate 4 Mg/Ml Cartridge) 4 mg IVPUSH Q4H PRN; Protocol PRN Reason: Pain, Severe (Pain Scale 7-10) Last Admin: 12/09/22 10:52 Dose: 4 mg Ondansetron HCl (Ondansetron Hcl 4 Mg/2 Ml Vial) 4 mg IVPUSH Q8H PRN PRN Reason: Nausea and Vomiting Sodium Chloride (0.9 % Sodium Chloride Flush 3 Ml Syringe) 3 ml IVFLUSH [facility] Last Admin: 12/09/22 09:17 Dose: 3 ml Home Medications Medication Instructions Recorded Confirmed Last Taken Type ascorbic acid (vitamin C) 500 mg 500 mg PO BEDTIME 06/07/21 12/09/22 Unknown History tablet dorzolamide 22.3 mg-timolol 6.8 1 drp ophthalmic (eye) BID 06/07/21 12/09/22 Unknown History mg/mL eye drops guselkumab 100 mg/mL subcutaneous mg subcut 06/07/21 11/26/22 Unknown History auto-injector (Tremfya) multivitamin 1 tab PO BEDTIME 06/07/21 12/09/22 Unknown History amlodipine 10 mg tablet 10 mg PO BEDTIME 12/09/22 12/09/22 Unknown History aspirin 81 mg tablet,delayed 81 mg PO BEDTIME 12/09/22 12/09/22 Unknown History release brimonidine 0.15 % eye drops 1 drp ophthalmic (eye) BID 12/09/22 12/09/22 Unknown History cholecalciferol (vitamin D3) 25 25 mcg PO BEDTIME 12/09/22 12/09/22 Unknown History mcg (1,000 unit) tablet dulaglutide 1.5 mg/0.5 mL 1.5 mg subcut PONCE 12/09/22 12/09/22 Unknown History subcutaneous pen injector (Trulicity) furosemide 20 mg tablet 20 mg PO BEDTIME 12/09/22 12/09/22 Unknown History insulin degludec 100 unit/mL (3 20 unit subcut BEDTIME 12/09/22 12/09/22 Unknown History mL) subcutaneous pen insulin lispro 100 unit/mL 10 unit subcut TID 12/09/22 12/09/22 Unknown History subcutaneous pen (Humalog KwikPen (U-100) Insulin) losartan 25 mg tablet 25 mg PO BEDTIME 12/09/22 12/09/22 Unknown History metoprolol succinate 25 mg 25 mg PO BEDTIME 12/09/22 12/09/22 Unknown History tablet,extended release 24 hr rosuvastatin 40 mg tablet 40 mg PO BEDTIME 12/09/22 12/09/22 Unknown History Physical Exam 2 Vital Signs: Vital Signs: Last Vital Signs Temp 98.5 F 12/09/22 00:04 Pulse 73 12/09/22 10:40 Resp 18 12/09/22 10:40 BP 142/55 H 12/09/22 10:40 Pulse Ox 95 12/09/22 10:40 O2 Del Method Nasal Cannula 12/09/22 10:40 O2 Flow Rate 0.5 12/09/22 10:40 BMI result Body Mass Index 32.8 GENERAL APPEARANCE: In pain due to right hip fracture. NECK: no carotid bruit, no jugular venous distention. SKIN: no suspicious lesions, warm and dry. HEART: Systolic murmur aortic area with preserved 2nd heart sound. , regular rate and rhythm. LUNGS: clear to auscultation bilaterally. ABDOMEN: soft, nontender. EXTREMITIES: no edema. PERIPHERAL PULSES: equal. NEUROLOGIC: No gross deficits, AAO X 3 Objective Labs and Meds 12/09/22 05:01 12/09/22 05:01 Lab results: Laboratory Results - last 24 hr 12/08/22 12/08/22 12/08/22 20:03 20:59 22:11 WBC 8.9 RBC 3.45 L Hgb 11.1 L Hct 32.3 L MCV 93.6 MCH 32.2 MCHC 34.4 RDW 13.3 Plt Count 152 L MPV 10.3 Immature Gran % (Auto) 0.5 H Neut % (Auto) 60.9 Lymph % (Auto) 25.3 [place] % (Auto) 9.3 Eos % (Auto) 3.8 Baso % (Auto) 0.8 Lymph # (Auto) 2.3 [place] # (Auto) 0.8 Eos # (Auto) 0.3 Baso # (Auto) 0.1 Abs Immat Gran (auto) 0.03 Absolute Neuts (auto) 5.4 Absolute Nucleated RBC 0.000 Nucleated RBC % (auto) 0.0 PT 11.0 L INR 0.9 Sodium 139 Potassium 5.1 Chloride 106 Carbon Dioxide 24 Anion Gap 14 BUN 25 H Creatinine 1.33 Estim Creat Clear Calc 48.6 Estimated GFR 52 POC Glucose Random Glucose 355 H* Calcium 9.3 Total Bilirubin 0.4 Direct Bilirubin 0.1 AST 31 ALT 50 H Alkaline Phosphatase 99 Troponin I High Sens 6.2 B-Natriuretic Peptide 98 Total Protein 7.3 Albumin 3.9 Lipase 40 12/09/22 12/09/22 12/09/22 05:01 07:11 12:17 WBC 12.4 H RBC 3.09 L Hgb 9.7 L Hct 29.0 L MCV 93.9 MCH 31.4 MCHC 33.4 RDW 13.4 Plt Count 150 L MPV 10.5 Immature Gran % (Auto) 0.4 Neut % (Auto) 74.1 H Lymph % (Auto) 14.6 L [place] % (Auto) 8.9 Eos % (Auto) 1.4 Baso % (Auto) 0.6 Lymph # (Auto) 1.8 [place] # (Auto) 1.1 Eos # (Auto) 0.2 Baso # (Auto) 0.1 Abs Immat Gran (auto) 0.05 H Absolute Neuts (auto) 9.2 H Absolute Nucleated RBC 0.000 Nucleated RBC % (auto) 0.0 PT INR Sodium 139 Potassium 4.9 Chloride 109 H Carbon Dioxide 22 Anion Gap 13 BUN 21 H Creatinine 1.24 Estim Creat Clear Calc 52.1 Estimated GFR 56 POC Glucose 223 H 192 H Random Glucose 223 H Calcium 8.6 D Total Bilirubin Direct Bilirubin AST ALT Alkaline Phosphatase Troponin I High Sens B-Natriuretic Peptide Total Protein Albumin Lipase Imaging Radiologist's impression: Impressions Chest X-Ray 12/08/22 20:35 IMPRESSION: No radiographic evidence of pneumonia. Hip/Pelvis X-Ray 12/08/22 20:35 IMPRESSION: Comminuted intertrochanteric fracture of the right proximal femur. Cervical Spine CT 12/08/22 20:40 IMPRESSION: 1. No acute intracranial pathology. 2. No CT evidence of acute cervical spine fracture or traumatic subluxation. Head CT 12/08/22 20:40 IMPRESSION: 1. No acute intracranial pathology. 2. No CT evidence of acute cervical spine fracture or traumatic subluxation. Assessment and Plan (1) Syncope: Status: Acute (2) Preop cardiovascular exam: Status: Acute Plan 77-year-old gentleman presenting with fall and right intertrochanteric fracture of femur. He needs surgical intervention. Overall, syncope seems more vasovagal or orthostasis. Gentle fluid resuscitation. He has history of coronary artery disease and moderate aortic valve stenosis. I think we should get an echocardiogram to assess the aortic valve further but it appears to be moderate and by exam does not sound severe. If he does not get surgery then that can really increases morbidity due to lack of mobility and resulting issues. I think if echocardiography does not show any significant issues then he can proceed with surgery with intermediate risk. Periprocedural aspirin should not be interrupted. His metoprolol succinate should be continued to and should not be interrupted currently. Thank you for allowing me to participate in the care of your patient. Please feel free to contact me if you have any questions. Time Spent With Patient Time: Total time managing care of this patient today ____ minutes. Procedures Date of Service Date of Service: 12/09/22
--- NOTE | 2022-12-09 14:22 | P.PNIM_ITS ---
Subjective Subjective Date of Service: 12/10/22 Interval History: Resting comfortably complaining of right hip pain with movement, denies nausea vomiting, no headache, no other acute complaints, no issues since admission. Review of Systems All other system reviewed and negative. Physical Exam 2 Vital Signs: Vital Signs: Last Vital Signs Temp 98.5 F 12/09/22 00:04 Pulse 73 12/09/22 10:40 Resp 18 12/09/22 10:40 BP 142/55 H 12/09/22 10:40 Pulse Ox 95 12/09/22 10:40 O2 Del Method Nasal Cannula 12/09/22 10:40 O2 Flow Rate 0.5 12/09/22 10:40 BMI result Body Mass Index 32.8 Const: Other: General awake alert, lying in bed in no distress Neck supple, no JVD CVS Regular rate and rhythm Lungs Regular breath sounds bilaterally, no wheezing or crackles appreciated Abdomen soft non tender, no guarding, no rigidity Neuro awake, alert and oriented to self, place, time and person ; no focal motor deficit Musculoskeletal: Right hip pain worse with movement. Psych: Appropriate affect No pedal edema Objective Data Active Medications Acetaminophen (Acetaminophen 325 Mg Tablet) 650 mg PO Q6H PRN PRN Reason: Pain, Mild (Pain Scale 1-3) Dextrose (Dextrose 50 % 25 Gm/50 Ml Syringe) 25 gm IVPUSH Q15M PRN; Protocol PRN Reason: per Hypoglycemia Standing Ord. Glucose (Glucose Gel 15 Gm Gel..Gram.) 15 gm PO Q15M PRN; Protocol PRN Reason: per Hypoglycemia Standing Ord. Cefazolin Sodium/Dextrose (Ancef) 2 gm in 50 mls @ 100 mls/hr IV PREOP ONE Stop: 12/10/22 09:29 Lactated Ringer's (Lr) 1,000 mls @ 80 mls/hr IVCONT .[id number] [facility] Last Admin: 12/09/22 12:11 Dose: 80 mls/hr Documented By: JOSE D Insulin Human Lispro (Insulin Lispro 100 Unit/Ml 3 Ml Vial) 0 unit SUBCUT QIDACHS [facility]; Protocol Last Admin: 12/09/22 12:19 Dose: Not Given Documented By: JOSE D Non-Admin Reason: NPO Melatonin (Melatonin 3 Mg Tablet) 6 mg PO BEDTIME PRN PRN Reason: Insomnia Morphine Sulfate (Morphine Sulfate 4 Mg/Ml Cartridge) 4 mg IVPUSH Q4H PRN; Protocol PRN Reason: Pain, Severe (Pain Scale 7-10) Last Admin: 12/09/22 10:52 Dose: 4 mg Documented By: JOSE D Ondansetron HCl (Ondansetron Hcl 4 Mg/2 Ml Vial) 4 mg IVPUSH Q8H PRN PRN Reason: Nausea and Vomiting Sodium Chloride (0.9 % Sodium Chloride Flush 3 Ml Syringe) 3 ml IVFLUSH QSHIFT [facility] Last Admin: 12/09/22 09:17 Dose: 3 ml Documented By: JOSE D Labs 12/10/22 10:00 12/10/22 10:00 Labs: Laboratory Results - last 24 hr 12/08/22 12/08/22 12/08/22 20:03 20:59 22:11 MCV 93.6 MCH 32.2 MCHC 34.4 RDW 13.3 Plt Count 152 L MPV 10.3 Immature Gran % (Auto) 0.5 H Neut % (Auto) 60.9 Lymph % (Auto) 25.3 [place] % (Auto) 9.3 Eos % (Auto) 3.8 Baso % (Auto) 0.8 Lymph # (Auto) 2.3 [place] # (Auto) 0.8 Eos # (Auto) 0.3 Baso # (Auto) 0.1 Abs Immat Gran (auto) 0.03 Absolute Neuts (auto) 5.4 Absolute Nucleated RBC 0.000 Nucleated RBC % (auto) 0.0 PT 11.0 L INR 0.9 Anion Gap 14 Estim Creat Clear Calc 48.6 Estimated GFR 52 POC Glucose Random Glucose 355 H* Calcium 9.3 Total Bilirubin 0.4 Direct Bilirubin 0.1 AST 31 ALT 50 H Alkaline Phosphatase 99 B-Natriuretic Peptide 98 Total Protein 7.3 Albumin 3.9 Lipase 40 12/09/22 12/09/22 12/09/22 05:01 07:11 12:17 MCV 93.9 MCH 31.4 MCHC 33.4 RDW 13.4 Plt Count 150 L MPV 10.5 Immature Gran % (Auto) 0.4 Neut % (Auto) 74.1 H Lymph % (Auto) 14.6 L [place] % (Auto) 8.9 Eos % (Auto) 1.4 Baso % (Auto) 0.6 Lymph # (Auto) 1.8 [place] # (Auto) 1.1 Eos # (Auto) 0.2 Baso # (Auto) 0.1 Abs Immat Gran (auto) 0.05 H Absolute Neuts (auto) 9.2 H Absolute Nucleated RBC 0.000 Nucleated RBC % (auto) 0.0 PT INR Anion Gap 13 Estim Creat Clear Calc 52.1 Estimated GFR 56 POC Glucose 223 H 192 H Random Glucose 223 H Calcium 8.6 D Total Bilirubin Direct Bilirubin AST ALT Alkaline Phosphatase B-Natriuretic Peptide Total Protein Albumin Lipase Assessment and Plan (1) Preop cardiovascular exam: Status: Acute (2) Intertrochanteric fracture of right femur: Status: Acute Plan 77-year-old male with pertinent history of insulin-dependent diabetes mellitus with neuropathy, congestive heart failure with preserved ejection fraction, gastro esophageal reflux disease, coronary artery disease, essential hypertension who presents to the emergency department for evaluation after a fall. #. Presyncope. Question etiology normal blood sugars, no arrhythmia on tele monitor, stable blood pressure is unable to do orthostatic blood pressures since patient unable to stand due to hip fracture No recurrent episodes of lightheadedness or dizziness. CT shows head showed no acute intracranial pathology, no CT evidence of acute cervical spine fracture. #. Inter trochanteric fracture of right femur due to fall in the setting of above. Continue analgesics, seen by Orthopedic surgery and plan is for surgery , NPO , hematocrit dropped anesthesiologists recommended blood transfusion . Continue IV morphine, anticoagulation as per Orthopedic surgery # acute on chronic normocytic anemia likely due to acute fracture transfuse 1 unit follow CBC. #. Preoperative risk. Seen by motion picture projectionist apprentice they recommend echocardiogram that showed moderate aortic valve stenosis, EF 55-60% and normal right ventricular systolic function patient is intermediate risk for intermediate risk surgery can proceed with surgery. # acute hypoxia likely due to atelectasis encourage incentive spirometry, chest x-ray showed bibasilar atelectasis small right-sided pleural effusion,? developing infiltrate , will hold off on antibiotics since patient afebrile No cough, no sputum production increase in WBC likely stress-induced follow clinical course. #. Insulin-dependent diabetes mellitus with hyperglycemia and neuropathy. Initiating Accu-Cheks with sliding scale insulin. Reduce home basal insulin since NPO. Continue gabapentin, will adjust dose of insulin once placed on diet.bs in 200 range. #. Congestive heart failure with preserved ejection fraction. No acute decompensation noted , resume Lasix. #. CAD status post CABG. No chest pain, EKG showed no acute ischemic changes will continue statin, beta-mary and aspirin, echo as above. DVT prophylaxis: Hold Lovenox until surgical evaluation.. Full code Will need continued inpatient hospital stay, for intratrochanteric right femur fracture requiring surgery. Time Spent With Patient Time: Total time managing care of this patient today ____ minutes. Quality Stroke Does the patient have a stroke diagnosis?: No VTE Prior VTE?: No VTE Risk Level:: Medical - moderate - high VTE Device Contraindication: Treatment Not Indicated VTE Drug Contraindication: Treatment Not Indicated
[2022-12-09 16:48] VITALS: BP 158/54; PULSE 75; RESP 18; O2SAT 93
--- NOTE | 2022-12-09 17:25 | PC.NURSE ---
attempted to call and give report to pt, RN on [facility] will call back.
--- NOTE | 2022-12-09 17:40 | PC.NURSE ---
assumed care of pt at 1700. pt currently sleeping on stretcher in no apparent distress. rr even/unlabored. received report from MATIAS Santos who has called up to floor for nurse-nurse report now that pt has room. awaiting transport of pt to room. call mora within pt reach. all pt needs met divya.
--- NOTE | 2022-12-09 17:44 | PC.NURSE ---
report given to [facility] nurse.
[2022-12-09 18:24] LABS: Glucose, Whole Blood 220 mg/dL (60-115)
[2022-12-09] MEDS: Insulin Lispro 100 UNIT/ML 3 ML VIAL SUBCUT ×2 (18:27→20:08)
[2022-12-09 19:38] VITALS: BP 174/72; PULSE 77; RESP 20; TEMP 37.6; O2SAT 90
[2022-12-09 19:49] LABS: Glucose, Whole Blood 214 mg/dL (60-115)
[2022-12-09] MEDS: Atorvastatin Calcium 40 MG TABLET PO (20:07)
[2022-12-09] MEDS: Aspirin Enteric Coated 81 MG TABLET.DR PO (20:07)
[2022-12-09] MEDS: Gabapentin 300 MG CAPSULE PO (20:07)
[2022-12-09] MEDS: Metoprolol Succinate ER 25 MG TAB.ER.24H PO (20:07)
[2022-12-10] VITALS (14 sets, daily range): BP systolic 119–161; BP diastolic 46–72; PULSE 66–84; RESP 16–20; TEMP 36.2–37.7; O2SAT 90–98; BMI 32.6
[2022-12-10] MEDS: Morphine Sulfate 4 MG/ML CARTRIDGE IVPUSH ×3 (03:48→21:24)
[2022-12-10 08:08] LABS: Glucose, Whole Blood 203 mg/dL (60-115)
[2022-12-10 10:24] LABS: MANUAL DIFF FLAG NO
[2022-12-10 10:26] LABS: Basophils Absolute Auto 0.1 X10*3/uL (0.0-0.2); Basophils Percent Auto 0.5 % (0-2); Eosinophils Absolute Auto 0.3 X10*3/uL (0.0-0.4); Eosinophils Percent Auto 1.9 % (0-4); Hematocrit 27.5 % (42.0-52.0); Hemoglobin 9.1 g/dl (14.0-18.0); Imm Gran Abs Auto 0.05 X10*3/uL (0.00-0.03); Imm Gran Pct Auto 0.4 % (0.0-0.4); Lymphocytes Absolute Auto 1.6 X10*3/uL (1.2-4.9); Lymphocytes Percent Auto 11.5 % (20-40); Mean Corpuscular HGB Conc 33.1 g/dl (31.0-36.0); Mean Corpuscular Hemoglobin 31.5 pg (27.0-33.0); Mean Corpuscular Volume 95.2 fL (80.0-98.0); Mean Platelet Volume 10.3 fL (9.4-12.4); Monocytes Absolute Auto 1.3 X10*3/uL (0.1-1.2); Monocytes Percent Auto 9.5 % (2-11); Neutrophils Absolute Auto 10.2 x10*3/uL (2.0-8.3); Neutrophils Percent Auto 76.2 % (45-73); Platelet Count 132 X10*3/uL (160-400); Red Blood Count 2.89 X10*6/uL (4.60-5.80); Red Cell Distribution Width 13.4 % (11.0-16.0); White Blood Count 13.4 X10*3/uL (4.8-10.8)
[2022-12-10] MEDS: 0.9 % Sodium Chloride Flush 3 ML SYRINGE IVFLUSH ×2 (10:38→17:57)
[2022-12-10] MEDS: Brimonidine Tartrate 0.2% Oph 5 ML BOTTLE 1 DROP EYE-BOTH ×2 (10:38→20:23)
[2022-12-10] MEDS: Dorzolamide/Timolo 2.23%/0.68% 10 ML DRBTL 1 DROP EYE-BOTH ×2 (10:38→20:23)
[2022-12-10 10:40] LABS: Anion Gap 15 (12-20); Blood Urea Nitrogen 28 mg/dL (9-16); Calcium 8.8 mg/dL (8.4-10.2); Carbon Dioxide 23 mmol/L (22-29); Chloride 108 mmol/L (96-108); Creatinine Clr Calc Pharmacy 49.2; Estimated Glomerular Filt Rate 53; Glucose Random 237 mg/dL (60-115); Potassium 4.7 mmol/L (3.3-5.1); Sodium 141 mmol/L (135-145)
--- NOTE | 2022-12-10 11:01 | PM.PNCARD ---
Subjective Subjective Date of Service: 12/10/22 Interval history: Seen examined at bedside. He is saying he has been coughing. Also saturations a little low on supplemental oxygen. Complaining of pain in the right leg and is waiting to go to operating room today. Physical Exam Vital Signs: Last Vital Signs Temp 97.3 F 12/10/22 07:51 Pulse 84 12/10/22 07:51 Resp 19 12/10/22 07:51 BP 119/68 12/10/22 07:51 Pulse Ox 90 L 12/10/22 07:51 O2 Del Method Nasal Cannula 12/10/22 07:51 O2 Flow Rate 2 12/10/22 07:51 BMI result Body Mass Index 32.6 GENERAL APPEARANCE: In pain due to right hip fracture. NECK: no carotid bruit, no jugular venous distention. SKIN: no suspicious lesions, warm and dry. HEART: Systolic murmur aortic area with preserved 2nd heart sound. , regular rate and rhythm. LUNGS: clear to auscultation bilaterally. ABDOMEN: soft, nontender. EXTREMITIES: no edema. PERIPHERAL PULSES: equal. NEUROLOGIC: No gross deficits, AAO X 3 Objective Labs and Meds 12/10/22 10:00 12/10/22 10:00 Lab results: Laboratory Results - last 24 hr 12/09/22 12/09/22 12/09/22 12:17 18:18 19:41 WBC RBC Hgb Hct MCV MCH MCHC RDW Plt Count MPV Immature Gran % (Auto) Neut % (Auto) Lymph % (Auto) [place] % (Auto) Eos % (Auto) Baso % (Auto) Lymph # (Auto) [place] # (Auto) Eos # (Auto) Baso # (Auto) Abs Immat Gran (auto) Absolute Neuts (auto) Absolute Nucleated RBC Nucleated RBC % (auto) Sodium Potassium Chloride Carbon Dioxide Anion Gap BUN Creatinine Estim Creat Clear Calc Estimated GFR POC Glucose 192 H 220 H 214 H Random Glucose Calcium Crossmatch 12/10/22 12/10/22 07:56 10:00 WBC 13.4 H RBC 2.89 L Hgb 9.1 L Hct 27.5 L MCV 95.2 MCH 31.5 MCHC 33.1 RDW 13.4 Plt Count 132 L MPV 10.3 Immature Gran % (Auto) 0.4 Neut % (Auto) 76.2 H Lymph % (Auto) 11.5 L [place] % (Auto) 9.5 Eos % (Auto) 1.9 Baso % (Auto) 0.5 Lymph # (Auto) 1.6 [place] # (Auto) 1.3 H Eos # (Auto) 0.3 Baso # (Auto) 0.1 Abs Immat Gran (auto) 0.05 H Absolute Neuts (auto) 10.2 H Absolute Nucleated RBC 0.000 Nucleated RBC % (auto) 0.0 Sodium 141 Potassium 4.7 Chloride 108 Carbon Dioxide 23 Anion Gap 15 BUN 28 H Creatinine 1.31 Estim Creat Clear Calc 49.2 Estimated GFR 53 POC Glucose 203 H Random Glucose 237 H Calcium 8.8 Crossmatch See Detail Progress Note: A&P Assessment and plan (1) Preop cardiovascular exam: Status: Acute (2) Syncope: Status: Acute (3) Intertrochanteric fracture of right femur: Status: Acute Plan 77-year-old gentleman with moderate aortic valve stenosis and previous bypass surgery who presented with fall and right femur fracture. He is intermediate risk for perioperative cardiovascular complications. Aspirin and metoprolol should not be interrupted in the perioperative period. He is somewhat hypoxic and is on supplemental oxygen. Please check a chest x-ray to make sure does not have any pneumonia or atelectasis, Thank you for allowing me to participate in the care of your patient. Please feel free to contact me if you have any questions. Time Spent With Patient Time: Total time managing care of this patient today ____ minutes. Progress Note: Quality Stroke Does the patient have a stroke diagnosis?: No Procedures Date of Service Date of Service: 12/10/22
[2022-12-10 11:42] LABS: Glucose, Whole Blood 240 mg/dL (60-115)
--- NOTE | 2022-12-10 12:54 | MHC.CM.PN ---
Addendum entered by Katelyn Cabrera RN 12/10/22 13:20: CM MET W/PT WHO REPORTS HE WOULD LIKE STR IN [place] AND REQUESTED CM CONTACT PT'S /PRIMARY CONTACT ENRIQUE WHO [facility]QUESTED STR AT A [facility] [address] SHE LIVES NE[place]BY, ENRIQUE AGREEABLE TO REFERRAL TO BOTH [facility] AND [facility], REFERAL TO BE PLACED AND CM WILL CONT TO FOLLOW. Original Note: EMR REVIEWED, PT W/RT FEMUR FX, ANTIC SURGERY TODAY ONCE CLEARED FOR SURGERY, PT WILL LIKELY NEED STR, CM WILL MEET W/PT TO DISCUSS SNF PREFERENCES, CM WILL CONT TO FOLLOW D/C NEEDS.
--- NOTE | 2022-12-10 13:01 | MHC.CM.PN ---
Met w/pt, significant other and dtr to review d/c planning needs. Pt resides w/significant other Abigail and is independent at baseline. No services or DME. Family assists w/transportation. Pt to go to OR for ORIF: ? home w/new [facility] vs STR. Will need PT eval. Referred to [facility] should he be able to return to home. HCP completed: may need BLS to home.
--- NOTE | 2022-12-10 13:55 | P.CONAN_ITS ---
HPI - Anesthesia Eval Consult details Narrative: for i tertrochanteric fracture femur orif [facility] Active Problems Active Problems: All Active Problems (Updated 12/09/22 @ 13:24 by Lai Hudson MD) Preop cardiovascular exam (Acute) Syncope (Acute) Intertrochanteric fracture of right femur (Acute) Pre-syncope (Acute) Hospital discharge follow-up (Acute) NSTEMI (non-ST elevated myocardial infarction) (Acute) Anemia (Acute) Situational depression (Acute) correction (current) use of insulin (Acute) CKD stage 3 due to type 2 diabetes mellitus (Acute) Diabetic polyneuropathy associated with type 2 diabetes mellitus (Acute) Diabetic retinopathy associated with type 2 diabetes mellitus (Acute) CAD (coronary artery disease) (Acute) Hypertension (Acute) Dyslipidemia (Acute) PVD (peripheral vascular disease) (Acute) Carotid artery stenosis (Acute) Overweight (BMI 25.0-29.9) (Acute) Congestive heart failure (Acute) Cardiomyopathy (Acute) GERD (gastroesophageal reflux disease) (Acute) Compression fracture of L1 lumbar vertebra (Acute) Spondylosis of lumbar region without myelopathy or radiculopathy (Acute) Psoriasis (Acute) Tear of medial meniscus of left knee (Acute) Type 2 diabetes mellitus with hyperglycemia (Acute) Hyperkalemia (Acute) Trigger finger of right hand (Acute) Aortic stenosis (Acute) Past Medical History Medical History Impacted cerumen of right ear Impacted cerumen of both ears Epidermoid cyst of skin of cheek Mass of face Allergic rhinitis Trigger finger, right middle finger Fracture of distal end of left radius with routine healing Superficial abrasion Pneumonia due to COVID-19 virus Acute hypoxemic respiratory failure due to COVID-19 Distal radius fracture, right Renal insufficiency Trigger finger, right middle finger Respiratory tract infection Aortic stenosis Preoperative clearance Iliac artery stenosis, 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 History of renal calculi Compression fracture of L1 lumbar vertebra Infective endocarditis Glaucoma Tobacco abuse Left carotid stenosis GERD (gastroesophageal reflux disease) Pulmonary nodule Cardiomyopathy Congestive heart failure Overweight (BMI 25.0-29.9) Carotid artery stenosis PVD (peripheral vascular disease) Dyslipidemia Hypertension CAD (coronary artery disease) Diabetic retinopathy associated with type 2 diabetes mellitus Diabetic polyneuropathy associated with type 2 diabetes mellitus CKD stage 3 due to type 2 diabetes mellitus Diabetic 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 diabetes mellitus correction (current) use of insulin Family History Family History Father Stomach cancer Mother Diabetes Brother Prostate abscess Family history of problems with anesthesia: No Surgical History Surgical History Hx of shoulder surgery Hx of coronary artery bypass graft Hx of cataract removal with insertion of prosthetic lens Hx of tonsillectomy Hx of appendectomy Hx of arthroscopy of right knee History of Problems with Anesthesia: No Social History Social History Household Members: Spouse Housing: Apartment Do you presently have visiting nurse or other home services: No Alcohol intake: never Patient Tobacco Use Status: Current everyday Tobacco user Tobacco use type: Cigarette Cigarette Packs Per Day: 0.25 Cigarettes Per Day: 3 e-Cigarette/Vaping Use: Never Used Second Hand Smoke Exposure: Yes Advance Directives Date on File: 06/08/21 service: No Current occupational status: 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 Cognitive needs: No Hearing needs: No Vision needs: No Meds Allergies Allergy/AdvReac Type Severity Reaction Status Date / Time furosemide AdvReac Intermediate Dizziness Verified 11/26/22 15:14 Active Medications: Current Medications Acetaminophen (Acetaminophen 325 Mg Tablet) 650 mg PO Q6H PRN PRN Reason: Pain, Mild (Pain Scale 1-3) Aspirin (Aspirin Enteric Coated 81 Mg Tablet.Dr) 81 mg PO BEDTIME [facility] Last Admin: 12/09/22 20:07 Dose: 81 mg Atorvastatin Calcium (Atorvastatin Calcium 40 Mg Tablet) 40 mg PO BEDTIME [facility] Last Admin: 12/09/22 20:07 Dose: 40 mg Brimonidine Tartrate (Brimonidine Tartrate 0.2% Oph 5 Ml Bottle) 1 drop EYE- BOTH BID [facility] Last Admin: 12/10/22 10:38 Dose: 1 drop Dextrose (Dextrose 50 % 25 Gm/50 Ml Syringe) 25 gm IVPUSH Q15M PRN; Protocol PRN Reason: per Hypoglycemia Standing Ord. Dorzolamide/Timolol (Dorzolamide/Timolo 2.23%/0.68% 10 Ml Drbtl) 1 drop EYE- BOTH BID [facility] Last Admin: 12/10/22 10:38 Dose: 1 drop Furosemide (Furosemide 20 Mg Tablet) 20 mg PO DAILY [facility]; Protocol Gabapentin (Gabapentin 300 Mg Capsule) 300 mg PO BEDTIME [facility] Last Admin: 12/09/22 20:07 Dose: 300 mg Glucose (Glucose Gel 15 Gm Gel..Gram.) 15 gm PO Q15M PRN; Protocol PRN Reason: per Hypoglycemia Standing Ord. Insulin Human Lispro (Insulin Lispro 100 Unit/Ml 3 Ml Vial) 0 unit SUBCUT QIDACHS [facility]; Protocol Last Admin: 12/10/22 13:25 Dose: Not Given Melatonin (Melatonin 3 Mg Tablet) 6 mg PO BEDTIME PRN PRN Reason: Insomnia Metoprolol Succinate (Metoprolol Succinate Er 25 Mg Tab.Er.24h) 25 mg PO BEDTIME [facility]; Protocol Last Admin: 12/09/22 20:07 Dose: 25 mg Morphine Sulfate (Morphine Sulfate 4 Mg/Ml Cartridge) 4 mg IVPUSH Q4H PRN; Protocol PRN Reason: Pain, Severe (Pain Scale 7-10) Last Admin: 12/10/22 10:37 Dose: 4 mg Ondansetron HCl (Ondansetron Hcl 4 Mg/2 Ml Vial) 4 mg IVPUSH Q8H PRN PRN Reason: Nausea and Vomiting Sodium Chloride (0.9 % Sodium Chloride Flush 3 Ml Syringe) 3 ml IVFLUSH QSHIFT [facility] Last Admin: 12/10/22 10:38 Dose: 3 ml Home Medications Medication Instructions Recorded Confirmed Last Taken Type ascorbic acid (vitamin C) 500 mg 500 mg PO BEDTIME 06/07/21 12/09/22 Unknown History tablet dorzolamide 22.3 mg-timolol 6.8 1 drp ophthalmic (eye) BID 06/07/21 12/09/22 Unknown History mg/mL eye drops guselkumab 100 mg/mL subcutaneous mg subcut 06/07/21 11/26/22 Unknown History auto-injector (Tremfya) multivitamin 1 tab PO BEDTIME 06/07/21 12/09/22 Unknown History amlodipine 10 mg tablet 10 mg PO BEDTIME 12/09/22 12/09/22 Unknown History aspirin 81 mg tablet,delayed 81 mg PO BEDTIME 12/09/22 12/09/22 Unknown History release brimonidine 0.15 % eye drops 1 drp ophthalmic (eye) BID 12/09/22 12/09/22 Unknown History cholecalciferol (vitamin D3) 25 25 mcg PO BEDTIME 12/09/22 12/09/22 Unknown History mcg (1,000 unit) tablet dulaglutide 1.5 mg/0.5 mL 1.5 mg subcut PONCE 12/09/22 12/09/22 Unknown History subcutaneous pen injector (Trulicity) furosemide 20 mg tablet 20 mg PO BEDTIME 12/09/22 12/09/22 Unknown History insulin degludec 100 unit/mL (3 20 unit subcut BEDTIME 12/09/22 12/09/22 Unknown History mL) subcutaneous pen insulin lispro 100 unit/mL 10 unit subcut TID 12/09/22 12/09/22 Unknown History subcutaneous pen (Humalog KwikPen (U-100) Insulin) losartan 25 mg tablet 25 mg PO BEDTIME 12/09/22 12/09/22 Unknown History metoprolol succinate 25 mg 25 mg PO BEDTIME 12/09/22 12/09/22 Unknown History tablet,extended release 24 hr rosuvastatin 40 mg tablet 40 mg PO BEDTIME 12/09/22 12/09/22 Unknown History Exam Exam Date and Time: December 10, 2022 1355 Height,Weight and Vital Signs: Height 5 ft 6 in Weight 91.7 kg Last Vital Signs Temp 98.3 F 12/10/22 13:06 Pulse 75 12/10/22 13:06 Resp 19 12/10/22 11:57 BP 150/67 H 12/10/22 13:06 Pulse Ox 93 12/10/22 13:06 O2 Del Method Nasal Cannula 12/10/22 13:06 O2 Flow Rate 2 12/10/22 13:06 Pertinent Lab Results Pertinent Lab Results: Laboratory Tests 12/08/22 12/08/22 12/08/22 20:03 20:59 22:11 WBC 8.9 RBC 3.45 L Hgb 11.1 L Hct 32.3 L MCV 93.6 MCH 32.2 MCHC 34.4 RDW 13.3 Plt Count 152 L MPV 10.3 Immature Gran % (Auto) 0.5 H Neut % (Auto) 60.9 Lymph % (Auto) 25.3 [place] % (Auto) 9.3 Eos % (Auto) 3.8 Baso % (Auto) 0.8 Lymph # (Auto) 2.3 [place] # (Auto) 0.8 Eos # (Auto) 0.3 Baso # (Auto) 0.1 Abs Immat Gran (auto) 0.03 Absolute Neuts (auto) 5.4 Absolute Nucleated RBC 0.000 Nucleated RBC % (auto) 0.0 PT 11.0 L INR 0.9 Sodium 139 Potassium 5.1 Chloride 106 Carbon Dioxide 24 Anion Gap 14 BUN 25 H Creatinine 1.33 Estim Creat Clear Calc 48.6 Estimated GFR 52 POC Glucose Random Glucose 355 H* Calcium 9.3 Total Bilirubin 0.4 Direct Bilirubin 0.1 AST 31 ALT 50 H Alkaline Phosphatase 99 Troponin I High Sens 6.2 B-Natriuretic Peptide 98 Total Protein 7.3 Albumin 3.9 Lipase 40 Blood Type Antibody Screen Crossmatch 12/09/22 12/09/22 12/09/22 05:01 07:11 12:17 WBC 12.4 H RBC 3.09 L Hgb 9.7 L Hct 29.0 L MCV 93.9 MCH 31.4 MCHC 33.4 RDW 13.4 Plt Count 150 L MPV 10.5 Immature Gran % (Auto) 0.4 Neut % (Auto) 74.1 H Lymph % (Auto) 14.6 L [place] % (Auto) 8.9 Eos % (Auto) 1.4 Baso % (Auto) 0.6 Lymph # (Auto) 1.8 [place] # (Auto) 1.1 Eos # (Auto) 0.2 Baso # (Auto) 0.1 Abs Immat Gran (auto) 0.05 H Absolute Neuts (auto) 9.2 H Absolute Nucleated RBC 0.000 Nucleated RBC % (auto) 0.0 PT INR Sodium 139 Potassium 4.9 Chloride 109 H Carbon Dioxide 22 Anion Gap 13 BUN 21 H Creatinine 1.24 Estim Creat Clear Calc 52.1 Estimated GFR 56 POC Glucose 223 H 192 H Random Glucose 223 H Calcium 8.6 D Total Bilirubin Direct Bilirubin AST ALT Alkaline Phosphatase Troponin I High Sens B-Natriuretic Peptide Total Protein Albumin Lipase Blood Type Antibody Screen Crossmatch 12/09/22 12/09/22 12/10/22 18:18 19:41 07:56 WBC RBC Hgb Hct MCV MCH MCHC RDW Plt Count MPV Immature Gran % (Auto) Neut % (Auto) Lymph % (Auto) [place] % (Auto) Eos % (Auto) Baso % (Auto) Lymph # (Auto) [place] # (Auto) Eos # (Auto) Baso # (Auto) Abs Immat Gran (auto) Absolute Neuts (auto) Absolute Nucleated RBC Nucleated RBC % (auto) PT INR Sodium Potassium Chloride Carbon Dioxide Anion Gap BUN Creatinine Estim Creat Clear Calc Estimated GFR POC Glucose 220 H 214 H 203 H Random Glucose Calcium Total Bilirubin Direct Bilirubin AST ALT Alkaline Phosphatase Troponin I High Sens B-Natriuretic Peptide Total Protein Albumin Lipase Blood Type Antibody Screen Crossmatch 12/10/22 12/10/22 10:00 11:36 WBC 13.4 H RBC 2.89 L Hgb 9.1 L Hct 27.5 L MCV 95.2 MCH 31.5 MCHC 33.1 RDW 13.4 Plt Count 132 L MPV 10.3 Immature Gran % (Auto) 0.4 Neut % (Auto) 76.2 H Lymph % (Auto) 11.5 L [place] % (Auto) 9.5 Eos % (Auto) 1.9 Baso % (Auto) 0.5 Lymph # (Auto) 1.6 [place] # (Auto) 1.3 H Eos # (Auto) 0.3 Baso # (Auto) 0.1 Abs Immat Gran (auto) 0.05 H Absolute Neuts (auto) 10.2 H Absolute Nucleated RBC 0.000 Nucleated RBC % (auto) 0.0 PT INR Sodium 141 Potassium 4.7 Chloride 108 Carbon Dioxide 23 Anion Gap 15 BUN 28 H Creatinine 1.31 Estim Creat Clear Calc 49.2 Estimated GFR 53 POC Glucose 240 H Random Glucose 237 H Calcium 8.8 Total Bilirubin Direct Bilirubin AST ALT Alkaline Phosphatase Troponin I High Sens B-Natriuretic Peptide Total Protein Albumin Lipase Blood Type A Positive Antibody Screen NEGATIVE Crossmatch See Detail Airway Mallampati Class: I TM Dist: >3cm Neck ROM: Limited Denture: Upper and Lower Heart: rrr Lungs: cta Assessment and Plan Assessment Anesthesia Assessment: Anesthesia Plan Discussed, Smoking Cess. Discussed and Chart Reviewed Final Anesthetic Review Family History of Problems with Anesthesia: No History of Problems with Anesthesia: No NPO: Yes ASA Class: IV and Emergency Final Preanesthetic Review: No Changes in Pt Med Stat, Meds/Allgs Chart Reviewed, Consent Obtained/Reviewed and Anes Risks/Benef Reviewed Patient Risk: High Procedure Risk: High Anesthetic Plan Anesthetic Plan: GA Disposition: Standard PACU (high risk for anesthesia due to comorbid conditions , PRBC ordered pre op.)
[2022-12-10 14:14] LABS: Glucose, Whole Blood 227 mg/dL (60-115)
--- NOTE | 2022-12-10 14:19 | MHC.SHP ---
Pre-Procedural Eval Section A Date of Service: 12/10/22 The patient is an INPATIENT: Yes Changes since office visit: No Cold of Flu in the past 2 weeks, No New Medical Problems, No Changes in Medication and No Patient answered all questions The History & Physical has been completed within 30 days and I have reviewed it.: Yes Section B Chief Complaint: fall Allergies: Allergies Allergy/AdvReac Type Severity Reaction Status Date / Time furosemide AdvReac Intermediate Dizziness Verified 11/26/22 15:14 Plan I have reviewed the history and physical and performed a pertinent physical examination on my patient. No changes have occurred unless specified. Time Spent With Patient Time: Total time managing care of this patient today ____ minutes.
--- NOTE | 2022-12-10 15:37 | PM.OP ---
Brief Operative Note Date of Service: 12/10/22 Pre-op diagnosis: Right hip fracture Post-op diagnosis: same Procedure: Right hip IMN Implants: Jhony IMN [id number] 125 deg with 95 mm hip screw Surgeon: Randy Melton MD Anesthesia: GETA and local Was an Specialist Wound Care used for this Procedure?: No Estimated blood loss (mL): 200 IV fluids (mL): 750 Pathology: none sent Condition: stable Disposition: PACU
[2022-12-10 16:53] LABS: Glucose, Whole Blood 237 mg/dL (60-115)
[2022-12-10] MEDS: Insulin Lispro 100 UNIT/ML 3 ML VIAL SUBCUT ×2 (17:57→20:35)
[2022-12-10] MEDS: ceFAZolin Sodium/Dextrose,Iso 2 GM/50 ML PIGGYBACK IV (20:22)
[2022-12-10] MEDS: Metoprolol Succinate ER 25 MG TAB.ER.24H PO (20:23)
[2022-12-10] MEDS: Gabapentin 300 MG CAPSULE PO (20:23)
[2022-12-10] MEDS: Aspirin Enteric Coated 81 MG TABLET.DR PO (20:23)
[2022-12-10] MEDS: Atorvastatin Calcium 40 MG TABLET PO (20:23)
[2022-12-10 20:35] LABS: Glucose, Whole Blood 207 mg/dL (60-115)
[2022-12-11] VITALS (7 sets, daily range): BP systolic 129–144; BP diastolic 59–65; PULSE 60–84; RESP 18–20; TEMP 36.3–37.6; O2SAT 92–98
[2022-12-11] MEDS: 0.9 % Sodium Chloride Flush 3 ML SYRINGE IVFLUSH ×3 (01:11→21:01)
[2022-12-11 07:43] LABS: Glucose, Whole Blood 251 mg/dL (60-115)
[2022-12-11 07:50] LABS: Hematocrit 27.8 % (42.0-52.0); Hemoglobin 9.2 g/dl (14.0-18.0); Hemoglobin 9.3 g/dl (14.0-18.0); Mean Corpuscular HGB Conc 33.1 g/dl (31.0-36.0); Mean Corpuscular Hemoglobin 31.6 pg (27.0-33.0); Mean Corpuscular Volume 95.5 fL (80.0-98.0); Platelet Count 136 X10*3/uL (160-400); Red Blood Count 2.91 X10*6/uL (4.60-5.80); Red Cell Distribution Width 14.2 % (11.0-16.0); White Blood Count 14.9 X10*3/uL (4.8-10.8)
[2022-12-11 08:04] LABS: Anion Gap 16 (12-20); Blood Urea Nitrogen 50 mg/dL (9-16); Calcium 8.4 mg/dL (8.4-10.2); Carbon Dioxide 23 mmol/L (22-29); Chloride 107 mmol/L (96-108); Creatinine Clr Calc Pharmacy 36.8; Estimated Glomerular Filt Rate 38; Glucose Random 256 mg/dL (60-115); Potassium 4.9 mmol/L (3.3-5.1); Sodium 141 mmol/L (135-145)
[2022-12-11] MEDS: Doxycycline Hyclate 100 MG in 0.9 % Sodium Chloride 250 ML 166.67 MG IV ×2 (08:33→20:59)
[2022-12-11] MEDS: Insulin Lispro 100 UNIT/ML 3 ML VIAL SUBCUT ×4 (08:33→20:59)
[2022-12-11] MEDS: Brimonidine Tartrate 0.2% Oph 5 ML BOTTLE 1 DROP EYE-BOTH (08:33)
[2022-12-11] MEDS: Dorzolamide/Timolo 2.23%/0.68% 10 ML DRBTL 1 DROP EYE-BOTH (08:33)
[2022-12-11] MEDS: Lactated Ringers 1,000 ML 100 ML IVCONT (08:34)
[2022-12-11] MEDS: Morphine Sulfate 4 MG/ML CARTRIDGE IVPUSH (08:34)
[2022-12-11] MEDS: Acetaminophen 325 MG TABLET 650 MG PO ×3 (10:28→21:01)
--- NOTE | 2022-12-11 10:51 | HO.POSTANES ---
Post Anesthesia Evaluation Post Anesthesia Evaluation Date of Service: 12/11/22 Vital Signs: Vital Signs Temp Pulse Resp BP Pulse Ox O2 Del Method O2 Flow Rate 12/11/22 07:22 97.3 F 80 18 138/65 92 Nasal Cannula 4 12/11/22 04:14 94 Oxymask 1 12/11/22 04:00 99.6 F 84 20 144/61 H 12/10/22 23:16 98.6 F 73 18 153/67 H 94 Nasal Cannula 3 Anesthesia: General Mental Status: Awake Pain Control: Satisfactory (complaining of pain) Nausea/Vomiting: None Hydration: Adequate Anesthesia-Related Issues: No Anes. Related Issues
--- NOTE | 2022-12-11 11:00 | PM.PNCARD ---
Subjective Subjective Date of Service: 12/11/22 Interval history: Seen examined at bedside. Complaining of pain in the back and hip. Status post surgery. Physical Exam Vital Signs: Last Vital Signs Temp 97.3 F 12/11/22 07:22 Pulse 80 12/11/22 07:22 Resp 18 12/11/22 07:22 BP 138/65 12/11/22 07:22 Pulse Ox 92 12/11/22 07:22 O2 Del Method Nasal Cannula 12/11/22 07:22 O2 Flow Rate 4 12/11/22 07:22 Oxygen Flow Rate 2 12/10/22 15:41 BMI result Body Mass Index 32.6 GENERAL APPEARANCE: In pain due to right hip fracture. NECK: no carotid bruit, no jugular venous distention. SKIN: no suspicious lesions, warm and dry. HEART: Systolic murmur aortic area with preserved 2nd heart sound. , regular rate and rhythm. LUNGS: clear to auscultation bilaterally. ABDOMEN: soft, nontender. PERIPHERAL PULSES: equal. NEUROLOGIC: No gross deficits, AAO X 3 Objective Labs and Meds 12/11/22 07:02 12/11/22 07:02 Lab results: Laboratory Results - last 24 hr 12/10/22 12/10/22 12/10/22 10:00 11:36 13:55 WBC RBC Hgb Hct MCV MCH MCHC RDW Plt Count MPV Absolute Nucleated RBC Nucleated RBC % (auto) Sodium Potassium Chloride Carbon Dioxide Anion Gap BUN Creatinine Estim Creat Clear Calc Estimated GFR POC Glucose 240 H 227 H Random Glucose Calcium Blood Type A Positive Antibody Screen NEGATIVE Crossmatch See Detail 12/10/22 12/10/22 12/11/22 16:50 20:32 07:02 WBC 14.9 H RBC 2.91 L Hgb 9.2 L Hct MCV MCH MCHC RDW Plt Count MPV Absolute Nucleated RBC Nucleated RBC % (auto) Sodium Potassium Chloride Carbon Dioxide Anion Gap BUN Creatinine Estim Creat Clear Calc Estimated GFR POC Glucose 237 H 207 H Random Glucose Calcium Blood Type Antibody Screen Crossmatch 12/11/22 12/11/22 12/11/22 07:02 07:02 07:39 WBC RBC Hgb 9.3 L Hct 27.8 L 27.8 L MCV 95.5 MCH 31.6 MCHC 33.1 RDW 14.2 Plt Count 136 L MPV 11.0 Absolute Nucleated RBC 0.000 Nucleated RBC % (auto) 0.0 Sodium 141 Potassium 4.9 Chloride 107 Carbon Dioxide 23 Anion Gap 16 BUN 50 H Creatinine 1.75 H Estim Creat Clear Calc 36.8 Estimated GFR 38 POC Glucose 251 H Random Glucose 256 H Calcium 8.4 Blood Type Antibody Screen Crossmatch Imaging Radiologist's impression: Impressions Chest X-Ray 12/10/22 11:43 IMPRESSION: Suspected bibasilar atelectasis with a small amount of right-sided pleural fluid. Cannot exclude developing infiltrate of the right lung base. Follow-up imaging recommended status post treatment to ensure resolution. Guidance Fluoroscopy 12/10/22 15:25 IMPRESSION: Fluoroscopy guidance for ORIF of right hip fracture. Progress Note: A&P Assessment and plan (1) Syncope: Status: Acute (2) Aortic stenosis: Status: Acute Plan 77-year-old gentleman who has moderate aortic valve stenosis in came with syncope and femur fracture. He is status post surgery at this stage. Echocardiography has shown stable aortic stenosis which is moderate. He has undergone surgery successfully and appears to be stable. Pain control. Blood pressure control is reasonable. He has kidney injury and his diuretics and ARB will be held. Thank you for allowing me to participate in the care of your patient. Please feel free to contact me if you have any questions. Time Spent With Patient Time: Total time managing care of this patient today ____ minutes. Progress Note: Quality Stroke Does the patient have a stroke diagnosis?: No Procedures Date of Service Date of Service: 12/11/22
[2022-12-11 11:21] LABS: Glucose, Whole Blood 267 mg/dL (60-115)
--- NOTE | 2022-12-11 11:50 | MHC.CM.PN ---
EMR reviewed, cm received message from [employer] reporting they are not contracted w/pt's insurance, [facility] is and requesting info on Tremfya, cm contacted pt's Abigail via avionics supervisor pt receives dose q2mos and it is filled by pt's central processing technician, Abigail unsure when med was due again, per [facility] last fill was 11/14 so next fill would be 01/14, [facility] updated via [employer], cm will cont to follow d/c needs.
[2022-12-11] MEDS: Enoxaparin Sodium 40 MG/0.4 ML SYRINGE SUBCUT (12:39)
[2022-12-11] MEDS: HYDROmorphone HCl 0.5 MG/0.5 ML SYRINGE IVPUSH (12:42)
--- NOTE | 2022-12-11 14:22 | P.CONNP_ITS ---
History of Present Illness Reason for Consult Consult date: 12/12/22 Reason for consult: DEAN Chief Complaint Chief complaint: fall PMFSH Past Medical History Medical History Impacted cerumen of right ear Impacted cerumen of both ears Epidermoid cyst of skin of cheek Mass of face Allergic rhinitis Trigger finger, right middle finger Fracture of distal end of left radius with routine healing Superficial abrasion Pneumonia due to COVID-19 virus Acute hypoxemic respiratory failure due to COVID-19 Distal radius fracture, right Renal insufficiency Trigger finger, right middle finger Respiratory tract infection Aortic stenosis Preoperative clearance Iliac artery stenosis, 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 History of renal calculi Compression fracture of L1 lumbar vertebra Infective endocarditis Glaucoma Tobacco abuse Left carotid stenosis GERD (gastroesophageal reflux disease) Pulmonary nodule Cardiomyopathy Congestive heart failure Overweight (BMI 25.0-29.9) Carotid artery stenosis PVD (peripheral vascular disease) Dyslipidemia Hypertension CAD (coronary artery disease) Diabetic retinopathy associated with type 2 diabetes mellitus Diabetic polyneuropathy associated with type 2 diabetes mellitus CKD stage 3 due to type 2 diabetes mellitus Diabetic 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 diabetes mellitus 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 Family History Family History Father Stomach cancer Mother Diabetes Brother Prostate abscess Surgical History Surgical History Hx of shoulder surgery Hx of coronary artery bypass graft Hx of cataract removal with insertion of prosthetic lens Hx of tonsillectomy Hx of appendectomy Hx of arthroscopy of right knee Social History Social History Household Members: Spouse Housing: Apartment Do you presently have visiting nurse or other home services: No Alcohol intake: never Patient Tobacco Use Status: Current everyday Tobacco user Tobacco use type: Cigarette Cigarette Packs Per Day: 0.25 Cigarettes Per Day: 3 Years Smoked: 65 e-Cigarette/Vaping Use: Never Used Second Hand Smoke Exposure: Yes Advance Directives Date on File: 06/08/21 service: No Current occupational status: 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 Cognitive needs: No Hearing needs: No Vision needs: No Meds Allergies Allergy/AdvReac Type Severity Reaction Status Date / Time furosemide AdvReac Intermediate Dizziness Verified 11/26/22 15:14 Active Medications: Current Medications Acetaminophen (Acetaminophen 325 Mg Tablet) 650 mg PO Q6H PRN PRN Reason: Pain, Mild (Pain Scale 1-3) Last Admin: 12/11/22 10:28 Dose: 650 mg Acetaminophen (Acetaminophen 325 Mg Tablet) 650 mg PO TID [facility] Aspirin (Aspirin Enteric Coated 81 Mg Tablet.Dr) 81 mg PO BEDTIME [facility] Last Admin: 12/10/22 20:23 Dose: 81 mg Atorvastatin Calcium (Atorvastatin Calcium 40 Mg Tablet) 40 mg PO BEDTIME [facility] Last Admin: 12/10/22 20:23 Dose: 40 mg Brimonidine Tartrate (Brimonidine Tartrate 0.2% Oph 5 Ml Bottle) 1 drop EYE- BOTH BID [facility] Last Admin: 12/11/22 08:33 Dose: 1 drop Dextrose (Dextrose 50 % 25 Gm/50 Ml Syringe) 25 gm IVPUSH Q15M PRN; Protocol PRN Reason: per Hypoglycemia Standing Ord. Dorzolamide/Timolol (Dorzolamide/Timolo 2.23%/0.68% 10 Ml Drbtl) 1 drop EYE- BOTH BID [facility] Last Admin: 12/11/22 08:33 Dose: 1 drop Enoxaparin Sodium (Enoxaparin Sodium 40 Mg/0.4 Ml Syringe) 40 mg SUBCUT Q24H [facility] Last Admin: 12/11/22 12:39 Dose: 40 mg Fentanyl (Fentanyl Citrate/Pf 100 Mcg/2 Ml Vial) 25 mcg IVPUSH Q5M PRN; Protocol PRN Reason: Pain, Moderate(Pain Scale 4-6) Gabapentin (Gabapentin 300 Mg Capsule) 300 mg PO BEDTIME [facility] Last Admin: 12/10/22 20:23 Dose: 300 mg Glucose (Glucose Gel 15 Gm Gel..Gram.) 15 gm PO Q15M PRN; Protocol PRN Reason: per Hypoglycemia Standing Ord. Hydromorphone HCl (Hydromorphone Hcl 0.5 Mg/0.5 Ml Syringe) 0.5 mg IVPUSH Q4H PRN; Protocol PRN Reason: Pain, Severe (Pain Scale 7-10) Last Admin: 12/11/22 12:42 Dose: 0.5 mg Cefazolin Sodium/Dextrose (Ancef) 2 gm in 50 mls @ 100 mls/hr IV POSTOP [facility] Last Infusion: 12/10/22 20:52 Dose: Infused Lactated Ringer's (Lr) 1,000 mls @ 100 mls/hr IVCONT .Q10H [facility] Last Admin: 12/11/22 08:34 Dose: 100 mls/hr Doxycycline Hyclate 100 mg/ (Sodium Chloride) 250 mls @ 166.67 mls/hr IV Q12H [facility] Last Infusion: 12/11/22 10:24 Dose: Infused Insulin Human Lispro (Insulin Lispro 100 Unit/Ml 3 Ml Vial) 0 unit SUBCUT QIDACHS [facility]; Protocol Last Admin: 12/11/22 12:38 Dose: 6 unit Melatonin (Melatonin 3 Mg Tablet) 6 mg PO BEDTIME PRN PRN Reason: Insomnia Metoprolol Succinate (Metoprolol Succinate Er 25 Mg Tab.Er.24h) 25 mg PO BEDTIME [facility]; Protocol Last Admin: 12/10/22 20:23 Dose: 25 mg Ondansetron HCl (Ondansetron Hcl 4 Mg/2 Ml Vial) 4 mg IVPUSH Q8H PRN PRN Reason: Nausea and Vomiting Oxycodone HCl (Oxycodone Hcl Immed Release 5 Mg Tablet) 5 mg PO TID [facility] Sodium Chloride (0.9 % Sodium Chloride Flush 3 Ml Syringe) 3 ml IVFLUSH QSHIFT [facility] Last Admin: 12/11/22 08:34 Dose: 3 ml Home Medications Medication Instructions Recorded Confirmed Last Taken Type ascorbic acid (vitamin C) 500 mg 500 mg PO BEDTIME 06/07/21 12/09/22 Unknown History tablet dorzolamide 22.3 mg-timolol 6.8 1 drp ophthalmic (eye) BID 06/07/21 12/09/22 Unknown History mg/mL eye drops guselkumab 100 mg/mL subcutaneous mg subcut 06/07/21 11/26/22 Unknown History auto-injector (Tremfya) multivitamin 1 tab PO BEDTIME 06/07/21 12/09/22 Unknown History amlodipine 10 mg tablet 10 mg PO BEDTIME 12/09/22 12/09/22 Unknown History aspirin 81 mg tablet,delayed 81 mg PO BEDTIME 12/09/22 12/09/22 Unknown History release brimonidine 0.15 % eye drops 1 drp ophthalmic (eye) BID 12/09/22 12/09/22 Unknown History cholecalciferol (vitamin D3) 25 25 mcg PO BEDTIME 12/09/22 12/09/22 Unknown History mcg (1,000 unit) tablet dulaglutide 1.5 mg/0.5 mL 1.5 mg subcut PONCE 12/09/22 12/09/22 Unknown History subcutaneous pen injector (Trulicity) furosemide 20 mg tablet 20 mg PO BEDTIME 12/09/22 12/09/22 Unknown History insulin degludec 100 unit/mL (3 20 unit subcut BEDTIME 12/09/22 12/09/22 Unknown History mL) subcutaneous pen insulin lispro 100 unit/mL 10 unit subcut TID 12/09/22 12/09/22 Unknown History subcutaneous pen (Humalog KwikPen (U-100) Insulin) losartan 25 mg tablet 25 mg PO BEDTIME 12/09/22 12/09/22 Unknown History metoprolol succinate 25 mg 25 mg PO BEDTIME 12/09/22 12/09/22 Unknown History tablet,extended release 24 hr rosuvastatin 40 mg tablet 40 mg PO BEDTIME 12/09/22 12/09/22 Unknown History Physical Exam Vital Signs: Last Vital Signs Temp 98.3 F 12/11/22 11:26 Pulse 74 12/11/22 11:26 Resp 18 12/11/22 11:26 BP 131/62 12/11/22 11:26 Pulse Ox 92 12/11/22 11:26 O2 Del Method Nasal Cannula 12/11/22 11:26 O2 Flow Rate 4 12/11/22 11:26 Oxygen Flow Rate 2 12/10/22 15:41 BMI result Body Mass Index 32.6 Results Lab Results 12/12/22 07:06 12/12/22 07:06 Lab results: Chemistry 12/08/22 12/09/22 12/10/22 20:03 05:01 10:00 Sodium 139 139 141 Potassium 5.1 4.9 4.7 Carbon Dioxide 24 22 23 BUN 25 H 21 H 28 H Creatinine 1.33 1.24 1.31 Calcium 9.3 8.6 D 8.8 12/11/22 07:02 Sodium 141 Potassium 4.9 Carbon Dioxide 23 BUN 50 H Creatinine 1.75 H Calcium 8.4 Hematology 12/08/22 12/09/22 12/10/22 20:03 05:01 10:00 WBC 8.9 12.4 H 13.4 H Hgb 11.1 L 9.7 L 9.1 L Plt Count 152 L 150 L 132 L 12/11/22 12/11/22 07:02 07:02 WBC 14.9 H Hgb 9.2 L 9.3 L Plt Count 136 L Assessment and Plan (1) DEAN (acute kidney injury): Status: Acute Plan Chart reviewed full consult to follow Time Spent With Patient Time: Total time managing care of this patient today ____ minutes. Procedures Date of Service Date of Service: 12/12/22
[2022-12-11] MEDS: oxyCODONE HCl Immed Release 5 MG TABLET PO ×2 (14:39→21:19)
--- NOTE | 2022-12-11 15:24 | P.PNIM_ITS ---
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 Review of Systems All other system reviewed and negative Physical Exam 2 Vital Signs: Vital Signs: Last Vital Signs Temp 98.1 F 12/11/22 15:03 Pulse 60 12/11/22 15:03 Resp 20 12/11/22 15:03 BP 129/59 L 12/11/22 15:03 Pulse Ox 92 12/11/22 15:03 O2 Del Method Nasal Cannula 12/11/22 15:03 O2 Flow Rate 4 12/11/22 15:03 Oxygen Flow Rate 2 12/10/22 15:41 BMI result Body Mass Index 32.6 Const: Other: General awake alert, lying in bed , in mild distress due to pain Neck supple, no JVD CVS Regular rate and rhythm Lungs Regular breath sounds bilaterally, no wheezing or crackles appreciated Abdomen soft non tender, no guarding, no rigidity Neuro awake, alert and oriented to self, place, time and person ; no focal motor deficit Musculoskeletal: Right hip dressing in place Psych: Appropriate affect No pedal edema Objective Data Active Medications Acetaminophen (Acetaminophen 325 Mg Tablet) 650 mg PO Q6H PRN PRN Reason: Pain, Mild (Pain Scale 1-3) Last Admin: 12/11/22 10:28 Dose: 650 mg Documented By: MELQUIADES Acetaminophen (Acetaminophen 325 Mg Tablet) 650 mg PO TID [facility] Last Admin: 12/11/22 14:40 Dose: 650 mg Documented By: MELQUIADES Aspirin (Aspirin Enteric Coated 81 Mg Tablet.) 81 mg PO BEDTIME [facility] Last Admin: 12/10/22 20:23 Dose: 81 mg Documented By: KEANU Atorvastatin Calcium (Atorvastatin Calcium 40 Mg Tablet) 40 mg PO BEDTIME [facility] Last Admin: 12/10/22 20:23 Dose: 40 mg Documented By: KEANU Brimonidine Tartrate (Brimonidine Tartrate 0.2% Oph 5 Ml Bottle) 1 drop EYE- BOTH BID [facility] Last Admin: 12/11/22 08:33 Dose: 1 drop Documented By: MELQUIADES Dextrose (Dextrose 50 % 25 Gm/50 Ml Syringe) 25 gm IVPUSH Q15M PRN; Protocol PRN Reason: per Hypoglycemia Standing Ord. Dorzolamide/Timolol (Dorzolamide/Timolo 2.23%/0.68% 10 Ml Drbtl) 1 drop EYE- BOTH BID [facility] Last Admin: 12/11/22 08:33 Dose: 1 drop Documented By: MELQUIADES Enoxaparin Sodium (Enoxaparin Sodium 40 Mg/0.4 Ml Syringe) 40 mg SUBCUT Q24H [facility] Last Admin: 12/11/22 12:39 Dose: 40 mg Documented By: MELQUIADES Fentanyl (Fentanyl Citrate/Pf 100 Mcg/2 Ml Vial) 25 mcg IVPUSH Q5M PRN; Protocol PRN Reason: Pain, Moderate(Pain Scale 4-6) Gabapentin (Gabapentin 300 Mg Capsule) 300 mg PO BEDTIME [facility] Last Admin: 12/10/22 20:23 Dose: 300 mg Documented By: KEANU Glucose (Glucose Gel 15 Gm Gel..Gram.) 15 gm PO Q15M PRN; Protocol PRN Reason: per Hypoglycemia Standing Ord. Hydromorphone HCl (Hydromorphone Hcl 0.5 Mg/0.5 Ml Syringe) 0.5 mg IVPUSH Q4H PRN; Protocol PRN Reason: Pain, Severe (Pain Scale 7-10) Last Admin: 12/11/22 12:42 Dose: 0.5 mg Documented By: MELQUIADES Cefazolin Sodium/Dextrose (Ancef) 2 gm in 50 mls @ 100 mls/hr IV POSTOP [facility] Last Infusion: 12/10/22 20:52 Dose: Infused Documented By: KEANU Lactated Ringer's (Lr) 1,000 mls @ 100 mls/hr IVCONT .Q10H [facility] Last Admin: 12/11/22 08:34 Dose: 100 mls/hr Documented By: MELQUIADES Doxycycline Hyclate 100 mg/ (Sodium Chloride) 250 mls @ 166.67 mls/hr IV Q12H [facility] Last Infusion: 12/11/22 10:24 Dose: Infused Documented By: MELQUIADES Insulin Human Lispro (Insulin Lispro 100 Unit/Ml 3 Ml Vial) 0 unit SUBCUT QIDACHS [facility]; Protocol Last Admin: 12/11/22 12:38 Dose: 6 unit Documented By: MELQUIADES Melatonin (Melatonin 3 Mg Tablet) 6 mg PO BEDTIME PRN PRN Reason: Insomnia Metoprolol Succinate (Metoprolol Succinate Er 25 Mg Tab.Er.24h) 25 mg PO BEDTIME [facility]; Protocol Last Admin: 12/10/22 20:23 Dose: 25 mg Documented By: KEANU Ondansetron HCl (Ondansetron Hcl 4 Mg/2 Ml Vial) 4 mg IVPUSH Q8H PRN PRN Reason: Nausea and Vomiting Oxycodone HCl (Oxycodone Hcl Immed Release 5 Mg Tablet) 5 mg PO TID [facility] Last Admin: 12/11/22 14:39 Dose: 5 mg Documented By: MELQUIADES Sodium Chloride (0.9 % Sodium Chloride Flush 3 Ml Syringe) 3 ml IVFLUSH QSHIFT [facility] Last Admin: 12/11/22 08:34 Dose: 3 ml Documented By: MELQUIADES Labs 12/11/22 07:02 12/11/22 07:02 Labs: Laboratory Results - last 24 hr 12/10/22 12/10/22 12/11/22 16:50 20:32 07:02 MCV 95.5 MCH 31.6 MCHC 33.1 RDW 14.2 Plt Count 136 L MPV 11.0 Absolute Nucleated RBC 0.000 Nucleated RBC % (auto) 0.0 Anion Gap 16 Estim Creat Clear Calc 36.8 Estimated GFR 38 POC Glucose 237 H 207 H Random Glucose 256 H Calcium 8.4 12/11/22 12/11/22 07:39 11:17 MCV MCH MCHC RDW Plt Count MPV Absolute Nucleated RBC Nucleated RBC % (auto) Anion Gap Estim Creat Clear Calc Estimated GFR POC Glucose 251 H 267 H Random Glucose Calcium Assessment and Plan (1) Preop cardiovascular exam: Status: Acute (2) Intertrochanteric fracture of right femur: Status: Acute Plan 77-year-old male with pertinent history of insulin-dependent diabetes mellitus with neuropathy, congestive heart failure with preserved ejection fraction, gastro esophageal reflux disease, coronary artery disease, essential hypertension who presents to the emergency department for evaluation after a fall. #. Presyncope. Question etiology, normal blood sugars, no arrhythmia on tele monitor, stable blood pressure is unable to do orthostatic blood pressures unable to stand due to hip fracture No recurrent episodes of lightheadedness or dizziness. CT head showed no acute intracranial pathology, no CT evidence of acute cervical spine fracture. #. Inter trochanteric fracture of right femur due to fall in the setting of above. Postoperative day 1, for pain control will place on Dilaudid 0.5 mg q.4 hours and schedule oxycodone and Tylenol anticoagulation as per Orthopedic surgery # acute DEAN on chronic kidney disease stage 3 consult nephrology hold diuretics give IV fluids 1 L follow BMP, avoid hypotension # acute on chronic normocytic anemia likely due to acute fracture status post 1 unit of packed RBC hematocrit stable. # acute hypoxia likely due to atelectasis encourage incentive spirometry, chest x-ray showed bibasilar atelectasis small right-sided pleural effusion,? developing infiltrate , Since noted to have leukocytosis this morning will add IV doxycycline for possible early pneumonia #. Insulin-dependent diabetes mellitus with hyperglycemia and neuropathy. Continue gabapentin, #. Congestive heart failure with preserved ejection fraction. No acute decompensation noted , hold Lasix due to DEAN. #. CAD status post CABG. No chest pain, EKG showed no acute ischemic changes will continue statin, beta-mary and aspirin. DVT prophylaxis: Lovenox . Full code Will need continued inpatient hospital stay, for intratrochanteric right femur fracture status post surgery now DEAN receiving IV fluids and close clinical monitoring. Time Spent With Patient Time: Total time managing care of this patient today ____ minutes. Quality Stroke Does the patient have a stroke diagnosis?: No VTE Prior VTE?: No VTE Risk Level:: Medical - moderate - high VTE Device Contraindication: Treatment Not Indicated VTE Drug Contraindication: Treatment Not Indicated
[2022-12-11 16:07] LABS: Glucose, Whole Blood 288 mg/dL (60-115)
[2022-12-11 19:53] LABS: Glucose, Whole Blood 243 mg/dL (60-115)
[2022-12-11] MEDS: Insulin Glargine,Hum.rec.anlog 100 UNIT/ML 10 ML VIAL 10 UNIT SUBCUT (20:57)
[2022-12-11] MEDS: Aspirin Enteric Coated 81 MG TABLET.DR PO (20:58)
[2022-12-11] MEDS: Atorvastatin Calcium 40 MG TABLET PO (20:58)
[2022-12-11] MEDS: Gabapentin 300 MG CAPSULE PO (20:58)
[2022-12-11] MEDS: Metoprolol Succinate ER 25 MG TAB.ER.24H PO (20:58)
[2022-12-12] VITALS (7 sets, daily range): BP systolic 134–158; BP diastolic 50–88; PULSE 73–83; RESP 14–18; TEMP 36–37.1; O2SAT 92–96
[2022-12-12 07:44] LABS: Glucose, Whole Blood 195 mg/dL (60-115)
[2022-12-12 07:49] LABS: Hematocrit 25.3 % (42.0-52.0); Hemoglobin 8.4 g/dl (14.0-18.0); Mean Corpuscular HGB Conc 33.2 g/dl (31.0-36.0); Mean Corpuscular Hemoglobin 31.7 pg (27.0-33.0); Mean Corpuscular Volume 95.5 fL (80.0-98.0); Mean Platelet Volume 11.3 fL (9.4-12.4); Platelet Count 125 X10*3/uL (160-400); Red Blood Count 2.65 X10*6/uL (4.60-5.80); White Blood Count 12.5 X10*3/uL (4.8-10.8)
[2022-12-12] MEDS: Insulin Lispro 100 UNIT/ML 3 ML VIAL SUBCUT ×4 (08:03→21:09)
[2022-12-12] MEDS: Doxycycline Hyclate 100 MG in 0.9 % Sodium Chloride 250 ML 166.67 MG IV ×2 (08:03→21:34)
[2022-12-12] MEDS: Brimonidine Tartrate 0.2% Oph 5 ML BOTTLE 1 DROP EYE-BOTH ×2 (08:03→23:49)
[2022-12-12] MEDS: Acetaminophen 325 MG TABLET 650 MG PO ×3 (08:04→21:08)
[2022-12-12] MEDS: Dorzolamide/Timolo 2.23%/0.68% 10 ML DRBTL 1 DROP EYE-BOTH ×2 (08:04→23:49)
[2022-12-12] MEDS: oxyCODONE HCl Immed Release 5 MG TABLET PO ×3 (08:05→21:07)
[2022-12-12] MEDS: 0.9 % Sodium Chloride Flush 3 ML SYRINGE IVFLUSH ×2 (08:06→21:10)
[2022-12-12 08:10] LABS: Anion Gap 15 (12-20); Blood Urea Nitrogen 65 mg/dL (9-16); Calcium 8.6 mg/dL (8.4-10.2); Carbon Dioxide 22 mmol/L (22-29); Chloride 109 mmol/L (96-108); Creatinine Clr Calc Pharmacy 34.3; Estimated Glomerular Filt Rate 35; Glucose Random 204 mg/dL (60-115); Sodium 141 mmol/L (135-145)
--- NOTE | 2022-12-12 09:39 | P.PNOP_ITS ---
Subjective Subjective Date of Service: 12/12/22 Interval history: POD 2 s/p Rt hip IMN no overnight events resting in bed denies sob, cp, palpitations Physical Exam Vital Signs: Vital Signs: Last Vital Signs Temp 98.8 F 12/12/22 07:35 Pulse 82 12/12/22 07:35 Resp 16 12/12/22 07:35 BP 148/88 H 12/12/22 07:35 Pulse Ox 93 12/12/22 07:35 O2 Del Method Nasal Cannula 12/12/22 07:35 O2 Flow Rate 4 12/12/22 07:35 Oxygen Flow Rate 2 12/11/22 15:41 BMI result Body Mass Index 32.6 Const: General: cooperative, healthy appearing and no acute distress Resp: Effort & Inspection: normal respiratory effort and able to speak in complete sentences Cardio: Rate: regular rate Peripheral pulses: Peripheral pulses 2+ throughout GI: Palpation (GI): Soft to palpation Skin: General skin exam: no rashes or lesions noted Extrem: Other: bandage clean dry and intact. No erythema or effusion. Calf supple nontender. Neurovascularly intact. Procedures Date of Service Date of Service: 12/12/22 Progress Note: A&P Assessment and plan (1) Intertrochanteric fracture of right femur: Status: Acute Assessment and Plan: * Continue pain mgmnt * lovenox for dvt ppx * begin PT /OT for Rt hip WBAT * Dispo planning-Pending PT eval, pain mgmnt Time Spent With Patient Time: Total time managing care of this patient today ____ minutes. Quality Stroke Does the patient have a stroke diagnosis?: No VTE Prior VTE?: No VTE Risk Level:: Medical - moderate - high VTE Device Contraindication: Treatment Not Indicated VTE Drug Contraindication: Treatment Not Indicated
--- NOTE | 2022-12-12 11:06 | PM.CNNEP ---
History of Present Illness Reason for Consult Consult date: 12/12/22 Reason for consult: DEAN Chief Complaint Chief complaint: fall History of Present Illness Narrative: 77-year-old male with pertinent history of insulin-dependent diabetes mellitus with neuropathy, congestive heart failure with preserved ejection fraction, gastroesophageal reflux disease, coronary artery disease, essential hypertension who presents to the emergency department for evaluation after a fall. Patient states he went to [employer] and when he 1st started walking from a sitting position, he felt dizzy and lightheaded and the next thing he knew he was on the floor. Patient fell on his right side. He has been complaining of right-sided pain since the fall which is worse with movement Baseline creatinine is around 1.3-1.4 mg/dL. He underwent hip surgery on 12/10/2022. Creatinine has bumped up to 1.7 mg/dL and hence this consultation Review of Systems Review of Systems No headache. No nausea vomiting. No abdominal pain. No shortness of breath. No cough. No dysuria urgency or hematuria. No edema. No rash. PMFSH Past Medical History Medical History Impacted cerumen of right ear Impacted cerumen of both ears Epidermoid cyst of skin of cheek Mass of face Allergic rhinitis Trigger finger, right middle finger Fracture of distal end of left radius with routine healing Superficial abrasion Pneumonia due to COVID-19 virus Acute hypoxemic respiratory failure due to COVID-19 Distal radius fracture, right Renal insufficiency Trigger finger, right middle finger Respiratory tract infection Aortic stenosis Preoperative clearance Iliac artery stenosis, 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 History of renal calculi Compression fracture of L1 lumbar vertebra Infective endocarditis Glaucoma Tobacco abuse Left carotid stenosis GERD (gastroesophageal reflux disease) Pulmonary nodule Cardiomyopathy Congestive heart failure Overweight (BMI 25.0-29.9) Carotid artery stenosis PVD (peripheral vascular disease) Dyslipidemia Hypertension CAD (coronary artery disease) Diabetic retinopathy associated with type 2 diabetes mellitus Diabetic polyneuropathy associated with type 2 diabetes mellitus CKD stage 3 due to type 2 diabetes mellitus 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 Family History Family History Father Stomach cancer Mother Diabetes Brother Prostate abscess Surgical History Surgical History Hx of shoulder surgery Hx of coronary artery bypass graft Hx of cataract removal with insertion of prosthetic lens Hx of tonsillectomy Hx of appendectomy Hx of arthroscopy of right knee Social History Social History Household Members: Spouse Housing: Apartment Do you presently have visiting nurse or other home services: No Alcohol intake: never Patient Tobacco Use Status: Current everyday Tobacco user Tobacco use type: Cigarette Cigarette Packs Per Day: 0.25 Cigarettes Per Day: 3 Years Smoked: 65 e-Cigarette/Vaping Use: Never Used Second Hand Smoke Exposure: Yes Advance Directives Date on File: 06/08/21 service: No Current occupational status: 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 Cognitive needs: No Hearing needs: No Vision needs: No Meds Allergies Allergy/AdvReac Type Severity Reaction Status Date / Time furosemide AdvReac Intermediate Dizziness Verified 11/26/22 15:14 Active Medications: Current Medications Acetaminophen (Acetaminophen 325 Mg Tablet) 650 mg PO Q6H PRN PRN Reason: Pain, Mild (Pain Scale 1-3) Last Admin: 12/11/22 10:28 Dose: 650 mg Acetaminophen (Acetaminophen 325 Mg Tablet) 650 mg PO TID [facility] Last Admin: 12/12/22 08:04 Dose: 650 mg Aspirin (Aspirin Enteric Coated 81 Mg Tablet.Dr) 81 mg PO BEDTIME [facility] Last Admin: 12/11/22 20:58 Dose: 81 mg Atorvastatin Calcium (Atorvastatin Calcium 40 Mg Tablet) 40 mg PO BEDTIME [facility] Last Admin: 12/11/22 20:58 Dose: 40 mg Brimonidine Tartrate (Brimonidine Tartrate 0.2% Oph 5 Ml Bottle) 1 drop EYE-BOTH BID [facility] Last Admin: 12/12/22 08:03 Dose: 1 drop Dextrose (Dextrose 50 % 25 Gm/50 Ml Syringe) 25 gm IVPUSH Q15M PRN; Protocol PRN Reason: per Hypoglycemia Standing Ord. Dorzolamide/Timolol (Dorzolamide/Timolo 2.23%/0.68% 10 Ml Drbtl) 1 drop EYE-BOTH BID [facility] Last Admin: 12/12/22 08:04 Dose: 1 drop Enoxaparin Sodium (Enoxaparin Sodium 40 Mg/0.4 Ml Syringe) 40 mg SUBCUT Q24H [facility] Last Admin: 12/11/22 12:39 Dose: 40 mg Fentanyl (Fentanyl Citrate/Pf 100 Mcg/2 Ml Vial) 25 mcg IVPUSH Q5M PRN; Protocol PRN Reason: Pain, Moderate(Pain Scale 4-6) Gabapentin (Gabapentin 300 Mg Capsule) 300 mg PO BEDTIME [facility] Last Admin: 12/11/22 20:58 Dose: 300 mg Glucose (Glucose Gel 15 Gm Gel..Gram.) 15 gm PO Q15M PRN; Protocol PRN Reason: per Hypoglycemia Standing Ord. Hydromorphone HCl (Hydromorphone Hcl 0.5 Mg/0.5 Ml Syringe) 0.5 mg IVPUSH Q4H PRN; Protocol PRN Reason: Pain, Severe (Pain Scale 7-10) Last Admin: 12/11/22 12:42 Dose: 0.5 mg Doxycycline Hyclate 100 mg/ (Sodium Chloride) 250 mls @ 166.67 mls/hr IV Q12H [facility] Last Infusion: 12/12/22 09:37 Dose: Infused Insulin Glargine (Insulin Glargine,Hum.Rec.Anlog 100 Unit/Ml 10 Ml Vial) 10 unit SUBCUT BEDTIME [facility] Last Admin: 12/11/22 20:57 Dose: 10 unit Insulin Human Lispro (Insulin Lispro 100 Unit/Ml 3 Ml Vial) 0 unit SUBCUT QIDACHS [facility]; Protocol Last Admin: 12/12/22 08:03 Dose: 4 unit Melatonin (Melatonin 3 Mg Tablet) 6 mg PO BEDTIME PRN PRN Reason: Insomnia Metoprolol Succinate (Metoprolol Succinate Er 25 Mg Tab.Er.24h) 25 mg PO BEDTIME [facility]; Protocol Last Admin: 12/11/22 20:58 Dose: 25 mg Ondansetron HCl (Ondansetron Hcl 4 Mg/2 Ml Vial) 4 mg IVPUSH Q8H PRN PRN Reason: Nausea and Vomiting Oxycodone HCl (Oxycodone Hcl Immed Release 5 Mg Tablet) 5 mg PO TID [facility] Last Admin: 12/12/22 08:05 Dose: 5 mg Sodium Chloride (0.9 % Sodium Chloride Flush 3 Ml Syringe) [facility] Last Admin: 12/12/22 08:06 Dose: 3 ml Home Medications Medication Instructions Recorded Confirmed Last Taken Type ascorbic acid (vitamin C) 500 mg 500 mg PO BEDTIME 06/07/21 12/09/22 Unknown History tablet dorzolamide 22.3 mg-timolol 6.8 1 drp ophthalmic (eye) BID 06/07/21 12/09/22 Unknown History mg/mL eye drops guselkumab 100 mg/mL subcutaneous mg subcut 06/07/21 11/26/22 Unknown History auto-injector (Tremfya) multivitamin 1 tab PO BEDTIME 06/07/21 12/09/22 Unknown History amlodipine 10 mg tablet 10 mg PO BEDTIME 12/09/22 12/09/22 Unknown History aspirin 81 mg tablet,delayed 81 mg PO BEDTIME 12/09/22 12/09/22 Unknown History release brimonidine 0.15 % eye drops 1 drp ophthalmic (eye) BID 12/09/22 12/09/22 Unknown History cholecalciferol (vitamin D3) 25 25 mcg PO BEDTIME 12/09/22 12/09/22 Unknown History mcg (1,000 unit) tablet dulaglutide 1.5 mg/0.5 mL 1.5 mg subcut PONCE 12/09/22 12/09/22 Unknown History subcutaneous pen injector (Trulicity) furosemide 20 mg tablet 20 mg PO BEDTIME 12/09/22 12/09/22 Unknown History insulin degludec 100 unit/mL (3 20 unit subcut BEDTIME 12/09/22 12/09/22 Unknown History mL) subcutaneous pen insulin lispro 100 unit/mL 10 unit subcut TID 12/09/22 12/09/22 Unknown History subcutaneous pen (Humalog KwikPen (U-100) Insulin) losartan 25 mg tablet 25 mg PO BEDTIME 12/09/22 12/09/22 Unknown History metoprolol succinate 25 mg 25 mg PO BEDTIME 12/09/22 12/09/22 Unknown History tablet,extended release 24 hr rosuvastatin 40 mg tablet 40 mg PO BEDTIME 12/09/22 12/09/22 Unknown History Physical Exam Vital Signs: Last Vital Signs Temp 98.8 F 12/12/22 07:35 Pulse 82 12/12/22 07:35 Resp 16 12/12/22 07:35 BP 148/88 H 09/21/23 07:35 Pulse Ox 93 12/12/22 07:35 O2 Del Method Nasal Cannula 12/12/22 07:35 O2 Flow Rate 4 12/12/22 07:35 Oxygen Flow Rate 2 12/11/22 15:41 BMI result Body Mass Index 32.6 Comfortable Neck is supple Lung: Air entry equal Heart: S1,S2, normal. No rub Abd: Soft. BS + NS : Alert.No asterexis Ext: No edema Results Lab Results 12/12/22 07:06 12/12/22 07:06 Lab results: Chemistry 12/10/22 12/11/22 12/12/22 10:00 07:02 07:06 Sodium 141 141 141 Potassium 4.7 4.9 5.0 Carbon Dioxide BUN 28 H 50 H 65 H Creatinine 1.31 1.75 H 1.88 H Calcium 8.8 8.4 8.6 Hematology 12/10/22 12/11/22 12/11/22 10:00 07:02 07:02 WBC 13.4 H 14.9 H Hgb 9.1 L 9.2 L 9.3 L Plt Count 132 L 136 L 12/12/22 07:06 WBC 12.5 H Hgb 8.4 L Plt Count 125 L Assessment and Plan (1) DEAN (acute kidney injury): Status: Acute Plan 71-year-old man with stage III CKD with a baseline creatinine of I 0.2 mg/dL has undergone hip surgery and sustained acute kidney injury. The differential diagnosis includes Hypoperfusion The acute tubular injury. Obstruction needs to be ruled out. No reason to believe he has any active glomerular interstitial disease at this time. Baseline CKD 3 with nephrotic range proteinuria most likely due to underlying diabetic kidney disease. Recommendations Check urine for sodium creatinine protein. Keep intake more than output. Continue to avoid hypotension. Continue to avoid nephrotoxic agents. Watch urine output. Based on the urine output renal ultrasonogram can be obtained. No indication for dialysis. Once he is hemodynamically stable renal function should improve. Shall follow along with the team. Thank you Time Spent With Patient Time: Total time managing care of this patient today ____ minutes. Procedures Date of Service Date of Service: 12/12/22
[2022-12-12 11:18] LABS: Glucose, Whole Blood 198 mg/dL (60-115)
[2022-12-12] MEDS: Enoxaparin Sodium 40 MG/0.4 ML SYRINGE SUBCUT (11:29)
--- NOTE | 2022-12-12 13:25 | HO.PM.IMPN ---
Subjective Subjective Date of Service: 12/12/22 Interval History: awake alert denies hip pain denies nausea vomiting, no abdominal pain, had no bowel movement, noted to have urinary retention required straight catheterization last night for bladder scan off 700 mL again this morning unable to void repeat straight Cath done 300 mL urine drained patient denies history of urinary retention, Denies dysuria, no burning, no frequency. Review of Systems all other system reviewed and negative Constitutional General awake alert, lying in bed , in no acute distress Neck supple, no JVD CVS Regular rate and rhythm Lungs Regular breath sounds bilaterally, no wheezing or crackles appreciated Abdomen soft, non tender,bs +, no guarding, no rigidity Neuro awake, alert and oriented to self, place, time and person ; no focal motor deficit Musculoskeletal: Right hip dressing in place Psych: Appropriate affect No pedal edema Physical Exam Vital Signs: Vital Signs: Last Vital Signs Temp 98.0 F 12/12/22 11:28 Pulse 73 12/12/22 11:28 Resp 16 12/12/22 11:28 BP 134/64 12/12/22 11:28 Pulse Ox 92 12/12/22 11:28 O2 Del Method Nasal Cannula 12/12/22 11:28 O2 Flow Rate 4 12/12/22 11:28 Oxygen Flow Rate 2 12/11/22 15:41 BMI result Body Mass Index 32.6 Objective Data Active Medications Acetaminophen (Acetaminophen 325 Mg Tablet) 650 mg PO Q6H PRN PRN Reason: Pain, Mild (Pain Scale 1-3) Last Admin: 12/11/22 10:28 Dose: 650 mg Documented By: MELQUIADES Acetaminophen (Acetaminophen 325 Mg Tablet) 650 mg PO TID [facility] Last Admin: 12/12/22 08:04 Dose: 650 mg Documented By: MELQUIADES Aspirin (Aspirin Enteric Coated 81 Mg Tablet.) 81 mg PO BEDTIME [facility] Last Admin: 12/11/22 20:58 Dose: 81 mg Documented By: JOSH Atorvastatin Calcium (Atorvastatin Calcium 40 Mg Tablet) 40 mg PO BEDTIME [facility] Last Admin: 12/11/22 20:58 Dose: 40 mg Documented By: JOSH Brimonidine Tartrate (Brimonidine Tartrate 0.2% Oph 5 Ml Bottle) 1 drop EYE-BOTH BID [facility] Last Admin: 12/12/22 08:03 Dose: 1 drop Documented By: MELQUIADES Dextrose (Dextrose 50 % 25 Gm/50 Ml Syringe) 25 gm IVPUSH Q15M PRN; Protocol PRN Reason: per Hypoglycemia Standing Ord. Dorzolamide/Timolol (Dorzolamide/Timolo 2.23%/0.68% 10 Ml Drbtl) 1 drop EYE-BOTH BID [facility] Last Admin: 12/12/22 08:04 Dose: 1 drop Documented By: MELQUIADES Enoxaparin Sodium (Enoxaparin Sodium 40 Mg/0.4 Ml Syringe) 40 mg SUBCUT Q24H [facility] Last Admin: 12/12/22 11:29 Dose: 40 mg Documented By: MELQUIADES Fentanyl (Fentanyl Citrate/Pf 100 Mcg/2 Ml Vial) 25 mcg IVPUSH Q5M PRN; Protocol PRN Reason: Pain, Moderate(Pain Scale 4-6) Gabapentin (Gabapentin 300 Mg Capsule) 300 mg PO BEDTIME [facility] Last Admin: 12/11/22 20:58 Dose: 300 mg Documented By: JOSH Glucose (Glucose Gel 15 Gm Gel..Gram.) 15 gm PO Q15M PRN; Protocol PRN Reason: per Hypoglycemia Standing Ord. Hydromorphone HCl (Hydromorphone Hcl 0.5 Mg/0.5 Ml Syringe) 0.5 mg IVPUSH Q4H PRN; Protocol PRN Reason: Pain, Severe (Pain Scale 7-10) Last Admin: 12/11/22 12:42 Dose: 0.5 mg Documented By: MELQUIADES Doxycycline Hyclate 100 mg/ (Sodium Chloride) 250 mls @ 166.67 mls/hr IV Q12H [facility] Last Infusion: 12/12/22 09:37 Dose: Infused Documented By: MELQUIADES Insulin Glargine (Insulin Glargine,Hum.Rec.Anlog 100 Unit/Ml 10 Ml Vial) 10 unit SUBCUT BEDTIME [facility] Last Admin: 12/11/22 20:57 Dose: 10 unit Documented By: JOSH Insulin Human Lispro (Insulin Lispro 100 Unit/Ml 3 Ml Vial) 0 unit SUBCUT QIDACHS [facility]; Protocol Last Admin: 12/12/22 11:29 Dose: 4 unit Documented By: MELQUIADES Melatonin (Melatonin 3 Mg Tablet) 6 mg PO BEDTIME PRN PRN Reason: Insomnia Metoprolol Succinate (Metoprolol Succinate Er 25 Mg Tab.Er.24h) 25 mg PO BEDTIME [facility]; Protocol Last Admin: 12/11/22 20:58 Dose: 25 mg Documented By: JOSH Ondansetron HCl (Ondansetron Hcl 4 Mg/2 Ml Vial) 4 mg IVPUSH Q8H PRN PRN Reason: Nausea and Vomiting Oxycodone HCl (Oxycodone Hcl Immed Release 5 Mg Tablet) 5 mg PO TID [facility] Last Admin: 12/12/22 08:05 Dose: 5 mg Documented By: MELQUIADES Sodium Chloride (0.9 % Sodium Chloride Flush 3 Ml Syringe) 3 ml IVFLUSH QSHIFT [facility] Last Admin: 12/12/22 08:06 Dose: 3 ml Documented By: MELQUIADES Labs 12/12/22 07:06 12/12/22 07:06 Labs: Laboratory Results - last 24 hr 12/11/22 12/11/22 12/12/22 16:04 19:50 07:06 MCV 95.5 MCH 31.7 MCHC 33.2 RDW 14.0 Plt Count 125 L MPV 11.3 Absolute Nucleated RBC 0.000 Nucleated RBC % (auto) 0.0 Anion Gap 15 Estim Creat Clear Calc 34.3 Estimated GFR 35 POC Glucose 288 H 243 H Random Glucose 204 H Calcium 8.6 12/12/22 12/12/22 07:40 11:11 MCV MCH MCHC RDW Plt Count MPV Absolute Nucleated RBC Nucleated RBC % (auto) Anion Gap Estim Creat Clear Calc Estimated GFR POC Glucose 195 H 198 H Random Glucose Calcium Assessment and Plan (1) Preop cardiovascular exam: Status: Acute (2) Intertrochanteric fracture of right femur: Status: Acute Plan 77-year-old male with pertinent history of insulin-dependent diabetes mellitus with neuropathy, congestive heart failure with preserved ejection fraction, gastro esophageal reflux disease, coronary artery disease, essential hypertension who presents to the emergency department for evaluation after a fall. #. Presyncope. Question etiology, normal blood sugars, no arrhythmia on tele monitor, stable blood pressures. No recurrent episodes of lightheadedness or dizziness. CT head showed no acute intracranial pathology, no CT evidence of acute cervical spine fracture. #. Inter trochanteric fracture of right femur due to fall in the setting of above. Postoperative day 2, good pain control, continue Dilaudid 0.5 mg q.4 hours and schedule oxycodone and Tylenol Lovenox for prophylaxis # acute DEAN on chronic kidney disease stage 3 , creatinine 1.88 today bumped from 1.75 yesterday case discussed with Nephrology will rule out obstruction, follow urine for sodium creatinine and protein follow BMP, avoid hypotension and nephrotoxic medication, maintain input greater than output, will give 1 L of IV fluids place Bliss catheter for urinary retention add Flomax # acute on chronic normocytic anemia likely due to acute fracture status post 1 unit of packed RBC hematocrit dropped to 25.3 hemoglobin 8.4 likely delusional,follow CBC, hold transfusion # acute hypoxia likely due to atelectasis encourage incentive spirometry, chest x-ray showed bibasilar atelectasis small right-sided pleural effusion,? developing infiltrate , Since noted to have leukocytosis placed on IV doxycycline day 2 for possible early pneumonia #. Insulin-dependent diabetes mellitus with hyperglycemia and neuropathy. on Tresiba, Trulicity and pre meal insulin at home, continue Lantus will adjust dose continue insulin sliding scale and Continue gabapentin, #. Congestive heart failure with preserved ejection fraction. No acute decompensation noted , hold Lasix due to DEAN. #. CAD status post CABG. No chest pain, EKG showed no acute ischemic changes will continue statin, beta-mary and aspirin. DVT prophylaxis: Lovenox . Full code Will need continued inpatient hospital stay, for intratrochanteric right femur fracture status post surgery now DEAN receiving IV fluids and close clinical monitoring. Time Spent With Patient Time: Total time managing care of this patient today ____ minutes. Quality Stroke Does the patient have a stroke diagnosis?: No VTE Prior VTE?: No VTE Risk Level:: Medical - moderate - high VTE Device Contraindication: Treatment Not Indicated VTE Drug Contraindication: Treatment Not Indicated
[2022-12-12 15:49] LABS: Creatinine Urine 139.22 mg/dL; Total Protein Urine Random 49 mg/dL (<12)
[2022-12-12 15:51] LABS: Glucose, Whole Blood 230 mg/dL (60-115)
--- NOTE | 2022-12-12 15:53 | MHC.CM.PN ---
This CM received a phone call from pts daughter Calista, she had many questions and states she doesn't understand why he isn't medically cleared for D/C, and hasn't been getting any updates. made aware.
[2022-12-12] MEDS: Lactated Ringers 1,000 ML 100 ML IVCONT (15:55)
[2022-12-12 19:51] LABS: Glucose, Whole Blood 169 mg/dL (60-115)
[2022-12-12] MEDS: Atorvastatin Calcium 40 MG TABLET PO (21:08)
[2022-12-12] MEDS: Metoprolol Succinate ER 25 MG TAB.ER.24H PO (21:08)
[2022-12-12] MEDS: Gabapentin 300 MG CAPSULE PO (21:08)
[2022-12-12] MEDS: Aspirin Enteric Coated 81 MG TABLET.DR PO (21:08)
[2022-12-12] MEDS: Tamsulosin HCL 0.4 MG CAPSULE PO (21:09)
[2022-12-12] MEDS: Insulin Glargine,Hum.rec.anlog 100 UNIT/ML 10 ML VIAL 10 UNIT SUBCUT (21:09)
[2022-12-13] VITALS (11 sets, daily range): BP systolic 122–170; BP diastolic 56–84; PULSE 66–81; RESP 17–20; TEMP 36.6–37.2; O2SAT 92–96
[2022-12-13] MEDS: HYDROmorphone HCl 0.5 MG/0.5 ML SYRINGE IVPUSH ×4 (03:41→19:38)
[2022-12-13 06:46] LABS: Hematocrit 23.5 % (42.0-52.0); Hemoglobin 7.8 g/dl (14.0-18.0); Mean Corpuscular HGB Conc 33.2 g/dl (31.0-36.0); Mean Corpuscular Hemoglobin 31.7 pg (27.0-33.0); Mean Corpuscular Volume 95.5 fL (80.0-98.0); Mean Platelet Volume 11.3 fL (9.4-12.4); Platelet Count 139 X10*3/uL (160-400); Red Blood Count 2.46 X10*6/uL (4.60-5.80); Red Cell Distribution Width 13.8 % (11.0-16.0); White Blood Count 10.4 X10*3/uL (4.8-10.8)
[2022-12-13 06:56] LABS: Anion Gap 12 (12-20); Blood Urea Nitrogen 71 mg/dL (9-16); Calcium 8.4 mg/dL (8.4-10.2); Carbon Dioxide 26 mmol/L (22-29); Chloride 111 mmol/L (96-108); Creatinine Clr Calc Pharmacy 40.8; Estimated Glomerular Filt Rate 43; Glucose Random 248 mg/dL (60-115); Potassium 4.4 mmol/L (3.3-5.1); Sodium 145 mmol/L (135-145)
[2022-12-13] MEDS: ondansetron HCL 4 MG/2 ML VIAL IVPUSH ×2 (07:54→19:38)
--- NOTE | 2022-12-13 08:10 | P.PNOP_ITS ---
Subjective Subjective Date of Service: 12/13/22 Interval history: POD 3 s/p Rt hip IMN no overnight events resting in bed denies sob, cp, palpitations Physical Exam Vital Signs: Vital Signs: Last Vital Signs Temp 97.9 F 12/13/22 08:00 Pulse 81 12/13/22 08:00 Resp 17 12/13/22 08:00 BP 170/74 H 12/13/22 08:00 Pulse Ox 92 12/13/22 08:00 O2 Del Method Nasal Cannula 12/13/22 08:00 O2 Flow Rate 2 12/13/22 08:00 Oxygen Flow Rate 4 12/12/22 15:00 BMI result Body Mass Index 32.6 Const: General: cooperative, healthy appearing and no acute distress Resp: Effort & Inspection: normal respiratory effort and able to speak in complete sentences Cardio: Rate: regular rate Peripheral pulses: Peripheral pulses 2+ throughout GI: Palpation (GI): Soft to palpation Skin: General skin exam: no rashes or lesions noted Extrem: Other: bandage clean dry and intact. No erythema or effusion. Calf supple nontender. Neurovascularly intact. Procedures Date of Service Date of Service: 12/13/22 Progress Note: A&P Assessment and plan (1) Intertrochanteric fracture of right femur: Status: Acute Assessment and Plan: * Continue pain mgmnt * lovenox for dvt ppx * PT /OT for Rt hip WBAT * Dispo planning-Pending PT eval, pain mgmnt Time Spent With Patient Time: Total time managing care of this patient today ____ minutes. Quality Stroke Does the patient have a stroke diagnosis?: No VTE Prior VTE?: No VTE Risk Level:: Medical - moderate - high VTE Device Contraindication: Treatment Not Indicated VTE Drug Contraindication: Treatment Not Indicated
[2022-12-13 08:16] LABS: Glucose, Whole Blood 228 mg/dL (60-115)
[2022-12-13] MEDS: Pantoprazole Sodium 40 MG/10 ML VIAL IVPUSH ×2 (08:41→15:24)
[2022-12-13] MEDS: 0.9 % Sodium Chloride Flush 3 ML SYRINGE IVFLUSH ×2 (08:42→15:25)
[2022-12-13] MEDS: Insulin Lispro 100 UNIT/ML 3 ML VIAL SUBCUT ×4 (08:42→21:26)
[2022-12-13] MEDS: Acetaminophen 325 MG TABLET 650 MG PO ×3 (09:40→21:30)
[2022-12-13] MEDS: Brimonidine Tartrate 0.2% Oph 5 ML BOTTLE 1 DROP EYE-BOTH (09:41)
[2022-12-13] MEDS: Dorzolamide/Timolo 2.23%/0.68% 10 ML DRBTL 1 DROP EYE-BOTH (09:41)
[2022-12-13] MEDS: Doxycycline Hyclate 100 MG in 0.9 % Sodium Chloride 250 ML 166.67 MG IV ×2 (09:44→21:31)
--- NOTE | 2022-12-13 10:39 | HO.PM.IMPN ---
Subjective Subjective Date of Service: 12/13/22 Interval History: Patient complaining of pain right hip, had 2 episodes of vomiting brown colored denies epigastric burning or tenderness, no bowel movement in last several days, nausea vomiting improved with soft friend currently tolerating breakfast denies headache, no dizziness, no other acute issues. Review of Systems All other system reviewed and negative. Physical Exam Vital Signs: Vital Signs: Last Vital Signs Temp 97.9 F 12/13/22 08:00 Pulse 81 12/13/22 08:00 Resp 17 12/13/22 08:00 BP 170/74 H 12/13/22 08:00 Pulse Ox 92 12/13/22 08:00 O2 Del Method Nasal Cannula 12/13/22 08:00 O2 Flow Rate 2 12/13/22 08:00 Oxygen Flow Rate 4 12/12/22 15:00 BMI result Body Mass Index 32.6 Const: Other: General awake alert, lying in bed , in no acute distress Neck supple, no JVD CVS Regular rate and rhythm Lungs Regular breath sounds bilaterally, no wheezing or crackles appreciated Abdomen soft, non tender,bs +, no guarding, no rigidity Neuro awake alert x3, no focal motor deficit Musculoskeletal: Right hip dressing in place Psych: Appropriate affect No pedal edema Objective Data Active Medications Acetaminophen (Acetaminophen 325 Mg Tablet) 650 mg PO Q6H PRN PRN Reason: Pain, Mild (Pain Scale 1-3) Last Admin: 12/11/22 10:28 Dose: 650 mg Documented By: MELQUIADES Acetaminophen (Acetaminophen 325 Mg Tablet) 650 mg PO TID [facility] Last Admin: 12/13/22 09:40 Dose: 650 mg Documented By: JOSE Atorvastatin Calcium (Atorvastatin Calcium 40 Mg Tablet) 40 mg PO BEDTIME [facility] Last Admin: 12/12/22 21:08 Dose: 40 mg Documented By: JOSH Brimonidine Tartrate (Brimonidine Tartrate 0.2% Oph 5 Ml Bottle) 1 drop EYE-BOTH BID [facility] Last Admin: 12/13/22 09:41 Dose: 1 drop Documented By: JOES Dextrose (Dextrose 50 % 25 Gm/50 Ml Syringe) 25 gm IVPUSH Q15M PRN; Protocol PRN Reason: per Hypoglycemia Standing Ord. Dorzolamide/Timolol (Dorzolamide/Timolo 2.23%/0.68% 10 Ml Drbtl) 1 drop EYE-BOTH BID [facility] Last Admin: 12/13/22 09:41 Dose: 1 drop Documented By: JOSE Enoxaparin Sodium (Enoxaparin Sodium 40 Mg/0.4 Ml Syringe) 40 mg SUBCUT Q24H [facility] Last Admin: 12/12/22 11:29 Dose: 40 mg Documented By: MELQUIADES Fentanyl (Fentanyl Citrate/Pf 100 Mcg/2 Ml Vial) 25 mcg IVPUSH Q5M PRN; Protocol PRN Reason: Pain, Moderate(Pain Scale 4-6) Gabapentin (Gabapentin 300 Mg Capsule) 300 mg PO BEDTIME [facility] Last Admin: 12/12/22 21:08 Dose: 300 mg Documented By: JOSH Glucose (Glucose Gel 15 Gm Gel..Gram.) 15 gm PO Q15M PRN; Protocol PRN Reason: per Hypoglycemia Standing Ord. Hydromorphone HCl (Hydromorphone Hcl 0.5 Mg/0.5 Ml Syringe) 0.5 mg IVPUSH Q4H PRN; Protocol PRN Reason: Pain, Severe (Pain Scale 7-10) Last Admin: 12/13/22 08:43 Dose: 0.5 mg Documented By: JOSE Doxycycline Hyclate 100 mg/ (Sodium Chloride) 250 mls @ 166.67 mls/hr IV Q12H [facility] Last Admin: 12/13/22 09:44 Dose: 166.67 mls/hr Documented By: JOSE Insulin Glargine (Insulin Glargine,Hum.Rec.Anlog 100 Unit/Ml 10 Ml Vial) 10 unit SUBCUT BEDTIME [facility] Last Admin: 12/12/22 21:09 Dose: 10 unit Documented By: JOSH Insulin Human Lispro (Insulin Lispro 100 Unit/Ml 3 Ml Vial) 0 unit SUBCUT QIDACHS [facility]; Protocol Last Admin: 12/13/22 08:42 Dose: 6 unit Documented By: JOSE Melatonin (Melatonin 3 Mg Tablet) 6 mg PO BEDTIME PRN PRN Reason: Insomnia Metoprolol Succinate (Metoprolol Succinate Er 25 Mg Tab.Er.24h) 25 mg PO BEDTIME [facility]; Protocol Last Admin: 12/12/22 21:08 Dose: 25 mg Documented By: JOSH Ondansetron HCl (Ondansetron Hcl 4 Mg/2 Ml Vial) 4 mg IVPUSH Q8H PRN PRN Reason: Nausea and Vomiting Last Admin: 12/13/22 07:54 Dose: 4 mg Documented By: JOSE Pantoprazole Sodium (Pantoprazole Sodium 40 Mg/10 Ml Vial) 40 mg IVPUSH BID@0630,1630 [facility] Last Admin: 12/13/22 08:41 Dose: 40 mg Documented By: JOSE Sodium Chloride (0.9 % Sodium Chloride Flush 3 Ml Syringe) 3 ml IVFLUSH QSHIFT [facility] Last Admin: 12/13/22 08:42 Dose: 3 ml Documented By: JOSE Tamsulosin HCl (Tamsulosin Hcl 0.4 Mg Capsule) 0.4 mg PO BEDTIME [facility] Last Admin: 12/12/22 21:09 Dose: 0.4 mg Documented By: JOSH Labs 12/13/22 06:08 12/13/22 06:08 Labs: Laboratory Results - last 24 hr 12/10/22 12/12/22 12/12/22 10:00 11:11 14:10 MCV MCH MCHC RDW Plt Count MPV Absolute Nucleated RBC Nucleated RBC % (auto) Anion Gap Estim Creat Clear Calc Estimated GFR POC Glucose 198 H Random Glucose Calcium U Random Total Protein 49 H Ur Random Sodium 26.0 Urine Creatinine 139.22 Blood Type A Positive Antibody Screen NEGATIVE Crossmatch See Detail 12/12/22 12/12/22 12/13/22 15:47 19:47 06:08 MCV 95.5 MCH 31.7 MCHC 33.2 RDW 13.8 Plt Count 139 L MPV 11.3 Absolute Nucleated RBC 0.000 Nucleated RBC % (auto) 0.0 Anion Gap 12 Estim Creat Clear Calc 40.8 Estimated GFR 43 POC Glucose 230 H 169 H Random Glucose 248 H Calcium 8.4 U Random Total Protein Ur Random Sodium Urine Creatinine Blood Type Antibody Screen Crossmatch 12/13/22 08:12 MCV MCH MCHC RDW Plt Count MPV Absolute Nucleated RBC Nucleated RBC % (auto) Anion Gap Estim Creat Clear Calc Estimated GFR POC Glucose 228 H Random Glucose Calcium U Random Total Protein Ur Random Sodium Urine Creatinine Blood Type Antibody Screen Crossmatch Assessment and Plan (1) Preop cardiovascular exam: Status: Acute (2) Intertrochanteric fracture of right femur: Status: Acute Plan 77-year-old male with pertinent history of insulin-dependent diabetes mellitus with neuropathy, congestive heart failure with preserved ejection fraction, gastro esophageal reflux disease, coronary artery disease, essential hypertension who presents to the emergency department for evaluation after a fall. #. Presyncope. Question etiology, normal blood sugars, no arrhythmia on tele monitor, stable blood pressures. No recurrent episodes of lightheadedness or dizziness. CT head showed no acute intracranial pathology, no CT evidence of acute cervical spine fracture. #. Inter trochanteric fracture of right femur due to fall in the setting of above. Postoperative day 3, persistent right hip pain, continue Dilaudid 0.5 mg q.4 hours and schedule Tylenol , will DC scheduled oxycodone changed to as needed due to nausea vomiting, Lovenox for prophylaxis, add stool softeners. # acute DEAN on chronic kidney disease stage 3 , creatinine trending down from 1.88 to 1.58 today , renal ultrasound showed no obstruction, status post IV fluids, likely pre renal will discuss further management with Nephrology follow BMP, avoid hypotension and nephrotoxic medication, maintain input greater than output, Bliss catheter for urinary retention add Flomax # nausea and 2 episode of vomiting brown colored question related to constipation denies epigastric pain will check stool guaiacs give antiemetic, IV Protonix, stool softeners avoid narcotics follow clinical course. # urinary retention was unable to urinate noted to have high bladder scans therefore Bliss catheter placed and started on Flomax, question retention due to narcotics, recent surgery , will give voiding trial prior to discharge. Outpatient urology follow-up. # acute on chronic normocytic anemia likely due to acute fracture status post 1 unit of packed RBC on 12/10 hematocrit improved but dropped today to 23.5 question dilutional, poor by mouth intake will transfuse 1 more unit, check stool guaiac , follow CBC # acute hypoxia likely due to atelectasis encourage incentive spirometry, chest x-ray showed bibasilar atelectasis small right-sided pleural effusion,? developing infiltrate , Since noted to have leukocytosis placed on IV doxycycline day 3 for possible early pneumonia, WBC normalized, no fevers Wean oxygen not on home O2 #. Insulin-dependent diabetes mellitus with hyperglycemia and neuropathy. on Tresiba, Trulicity and pre meal insulin at home, continue Lantus 14 units, continue insulin sliding scale and Continue gabapentin, #. Congestive heart failure with preserved ejection fraction. No acute decompensation noted , hold Lasix due to DEAN. #. CAD status post CABG. No chest pain, EKG showed no acute ischemic changes will continue statin, beta-mary, aspirin held today due to brown colored vomitus Will resume aspirin if noted to have negative stool guaiac and no episodes of GI bleed. DVT prophylaxis: Lovenox . Full code Will need continued inpatient hospital stay, for intratrochanteric right femur fracture status post surgery now DEAN receiving IV fluids and close clinical monitoring. Time Spent With Patient Time: Total time managing care of this patient today ____ minutes. Quality Stroke Does the patient have a stroke diagnosis?: No VTE Prior VTE?: No VTE Risk Level:: Medical - moderate - high VTE Device Contraindication: Treatment Not Indicated VTE Drug Contraindication: Treatment Not Indicated
[2022-12-13] MEDS: polyethylene glycoL 3350 17 GM POWD.PACK PO (11:09)
[2022-12-13] MEDS: Docusate Sodium 100 MG CAPSULE 200 MG PO (11:09)
[2022-12-13 11:23] LABS: Glucose, Whole Blood 243 mg/dL (60-115)
[2022-12-13] MEDS: Enoxaparin Sodium 40 MG/0.4 ML SYRINGE SUBCUT (12:05)
[2022-12-13] MEDS: oxyCODONE HCl Immed Release 5 MG TABLET PO (12:41)
--- NOTE | 2022-12-13 12:56 | MHC.CM.PN ---
EMR REVIEWED, PER HOSPITALIST PT NOT YET READY FOR D/C, [facility] FOLLOWING, CM WILL CONT TO FOLLOW D/C NEEDS.
[2022-12-13 16:53] LABS: Glucose, Whole Blood 228 mg/dL (60-115)
--- NOTE | 2022-12-13 17:34 | P.PNNP_ITS ---
Subjective Subjective Date of Service: 12/13/22 Interval history: Patient complaining of pain right hip, had 2 episodes of vomiting brown colored denies epigastric burning or tenderness, no bowel movement in last several days, nausea vomiting improved with soft friend currently tolerating breakfast denies headache, no dizziness, no other acute issues. Physical Exam 2 Vital Signs: Vital Signs: Last Vital Signs Temp 98.0 F 12/13/22 15:51 Pulse 66 12/13/22 15:51 Resp 18 12/13/22 15:51 BP 125/60 12/13/22 15:51 Pulse Ox 92 12/13/22 15:51 O2 Del Method Room Air 12/13/22 15:51 O2 Flow Rate 2 12/13/22 11:12 Oxygen Flow Rate 2 12/13/22 15:00 BMI result Body Mass Index 32.6 Const: Other: General awake alert, lying in bed , in no acute distress Neck supple, no JVD CVS Regular rate and rhythm Lungs Regular breath sounds bilaterally, no wheezing or crackles appreciated Abdomen soft, non tender,bs +, no guarding, no rigidity Neuro awake alert x3, no focal motor deficit Musculoskeletal: Right hip dressing in place Psych: Appropriate affect No pedal edema Objective Data Labs 12/13/22 06:08 12/13/22 06:08 Labs: Laboratory Results - last 24 hr 12/10/22 12/12/22 12/13/22 10:00 19:47 06:08 WBC 10.4 RBC 2.46 L Hgb 7.8 L Hct 23.5 L MCV 95.5 MCH 31.7 MCHC 33.2 RDW 13.8 Plt Count 139 L MPV 11.3 Absolute Nucleated RBC 0.000 Nucleated RBC % (auto) 0.0 Sodium 145 Potassium 4.4 Chloride 111 H Carbon Dioxide 26 Anion Gap 12 BUN 71 H Creatinine 1.58 H Estim Creat Clear Calc 40.8 Estimated GFR 43 POC Glucose 169 H Random Glucose 248 H Calcium 8.4 Blood Type A Positive Antibody Screen NEGATIVE Crossmatch See Detail 12/13/22 12/13/22 12/13/22 08:12 11:11 16:44 WBC RBC Hgb Hct MCV MCH MCHC RDW Plt Count MPV Absolute Nucleated RBC Nucleated RBC % (auto) Sodium Potassium Chloride Carbon Dioxide Anion Gap BUN Creatinine Estim Creat Clear Calc Estimated GFR POC Glucose 228 H 243 H 228 H Random Glucose Calcium Blood Type Antibody Screen Crossmatch Procedures Date of Service Date of Service: 12/13/22 Assessment & Plan Assessment and plan (1) DEAN (acute kidney injury): Status: Acute Plan 71-year-old man with stage III CKD with a baseline creatinine of 1.3mg/dL has undergone hip surgery and sustained acute kidney injury. Obstruction ruled out Overall hypovolemic DEAN with improving Cr with IVF support. Overall supported by Hyaline casts and Magali 26 All in the setting of poor PO with N/V presyncope Recommendations IVF support until PO is good Renal panel daily hold diuretics PATEL ARB avoid NSAIDs Time Spent With Patient Time: Total time managing care of this patient today ____ minutes. Progress Note: Quality Stroke Does the patient have a stroke diagnosis?: No
[2022-12-13 20:54] LABS: Glucose, Whole Blood 230 mg/dL (60-115)
[2022-12-13] MEDS: Insulin Glargine,Hum.rec.anlog 100 UNIT/ML 10 ML VIAL 14 UNIT SUBCUT (21:29)
[2022-12-13] MEDS: Gabapentin 300 MG CAPSULE PO (21:30)
[2022-12-13] MEDS: Atorvastatin Calcium 40 MG TABLET PO (21:30)
[2022-12-13] MEDS: Tamsulosin HCL 0.4 MG CAPSULE PO (21:30)
[2022-12-13] MEDS: Metoprolol Succinate ER 25 MG TAB.ER.24H PO (21:32)
[2022-12-14] VITALS: BP 134/61; PULSE 74; RESP 18; TEMP 37.1; O2SAT 92
[2022-12-14 03:40] VITALS: BP 155/69; PULSE 74; RESP 20; TEMP 37.3; O2SAT 91
[2022-12-14] MEDS: Pantoprazole Sodium 40 MG/10 ML VIAL IVPUSH ×2 (05:28→17:44)
[2022-12-14 07:13] LABS: Hematocrit 26.8 % (42.0-52.0); Hemoglobin 8.8 g/dl (14.0-18.0); Mean Corpuscular HGB Conc 32.8 g/dl (31.0-36.0); Mean Corpuscular Hemoglobin 31.9 pg (27.0-33.0); Mean Corpuscular Volume 97.1 fL (80.0-98.0); Mean Platelet Volume 11.2 fL (9.4-12.4); Platelet Count 151 X10*3/uL (160-400); Red Blood Count 2.76 X10*6/uL (4.60-5.80); Red Cell Distribution Width 14.1 % (11.0-16.0); White Blood Count 9.4 X10*3/uL (4.8-10.8)
[2022-12-14 07:34] LABS: Anion Gap 15 (12-20); Blood Urea Nitrogen 62 mg/dL (9-16); Calcium 8.5 mg/dL (8.4-10.2); Carbon Dioxide 24 mmol/L (22-29); Chloride 113 mmol/L (96-108); Creatinine Clr Calc Pharmacy 44.5; Estimated Glomerular Filt Rate 47; Glucose Random 209 mg/dL (60-115); Potassium 4.4 mmol/L (3.3-5.1); Sodium 148 mmol/L (135-145)
[2022-12-14 07:42] VITALS: BP 172/72; PULSE 79; RESP 20; TEMP 37.1; O2SAT 96
[2022-12-14 07:56] LABS: Glucose, Whole Blood 207 mg/dL (60-115)
[2022-12-14] MEDS: Doxycycline Hyclate 100 MG in 0.9 % Sodium Chloride 250 ML 166.67 MG IV (09:14)
[2022-12-14] MEDS: Acetaminophen 325 MG TABLET 650 MG PO ×3 (09:15→20:50)
[2022-12-14] MEDS: Docusate Sodium 100 MG CAPSULE 200 MG PO (09:15)
[2022-12-14] MEDS: Insulin Lispro 100 UNIT/ML 3 ML VIAL SUBCUT ×4 (09:18→20:59)
[2022-12-14] MEDS: HYDROmorphone HCl 0.5 MG/0.5 ML SYRINGE IVPUSH (09:18)
[2022-12-14] MEDS: 0.9 % Sodium Chloride Flush 3 ML SYRINGE IVFLUSH ×4 (09:19→20:50)
[2022-12-14] MEDS: polyethylene glycoL 3350 17 GM POWD.PACK PO (09:19)
--- NOTE | 2022-12-14 09:20 | P.PNNP_ITS ---
Subjective Subjective Date of Service: 12/14/22 Interval history: GFR better Physical Exam 2 Vital Signs: Vital Signs: Last Vital Signs Temp 98.8 F 12/14/22 07:42 Pulse 79 12/14/22 07:42 Resp 20 12/14/22 07:42 BP 172/72 H 12/14/22 07:42 Pulse Ox 96 12/14/22 07:42 O2 Del Method Nasal Cannula 12/14/22 07:42 O2 Flow Rate 2 12/14/22 07:42 Oxygen Flow Rate 2 12/13/22 15:00 BMI result Body Mass Index 32.6 Const: Other: General awake alert, lying in bed , in no acute distress Neck supple, no JVD CVS Regular rate and rhythm Lungs Regular breath sounds bilaterally, no wheezing or crackles appreciated Abdomen soft, non tender,bs +, no guarding, no rigidity Neuro awake alert x3, no focal motor deficit Musculoskeletal: Right hip dressing in place Psych: Appropriate affect No pedal edema Objective Data Labs 12/14/22 06:28 12/14/22 06:28 Labs: Laboratory Results - last 24 hr 12/10/22 12/13/22 12/13/22 10:00 11:11 16:44 WBC RBC Hgb Hct MCV MCH MCHC RDW Plt Count MPV Absolute Nucleated RBC Nucleated RBC % (auto) Sodium Potassium Chloride Carbon Dioxide Anion Gap BUN Creatinine Estim Creat Clear Calc Estimated GFR POC Glucose 243 H 228 H Random Glucose Calcium Blood Type A Positive Antibody Screen NEGATIVE Crossmatch See Detail 12/13/22 12/14/22 12/14/22 20:50 06:28 07:44 WBC 9.4 RBC 2.76 L Hgb 8.8 L Hct 26.8 L MCV 97.1 MCH 31.9 MCHC 32.8 RDW 14.1 Plt Count 151 L MPV 11.2 Absolute Nucleated RBC 0.000 Nucleated RBC % (auto) 0.0 Sodium 148 H Potassium 4.4 Chloride 113 H Carbon Dioxide 24 Anion Gap 15 BUN 62 H Creatinine 1.45 H Estim Creat Clear Calc 44.5 Estimated GFR 47 POC Glucose 230 H 207 H Random Glucose 209 H Calcium 8.5 Blood Type Antibody Screen Crossmatch Procedures Date of Service Date of Service: 12/14/22 Assessment & Plan Assessment and plan (1) DEAN (acute kidney injury): Status: Acute Plan 71-year-old man with stage III CKD with a baseline creatinine of 1.3mg/dL has undergone hip surgery and sustained acute kidney injury. Obstruction ruled out Overall hypovolemic DEAN with improving Cr with IVF support. Overall supported by [place] lara and Magali 26 All in the setting of poor PO with N/V presyncope Recommendations IVF support until PO is good Renal panel daily hold diuretics PATLE ARB avoid NSAIDs Time Spent With Patient Time: Total time managing care of this patient today ____ minutes. Progress Note: Quality Stroke Does the patient have a stroke diagnosis?: No
[2022-12-14] MEDS: Dorzolamide/Timolo 2.23%/0.68% 10 ML DRBTL 1 DROP EYE-BOTH (09:23)
[2022-12-14] MEDS: Brimonidine Tartrate 0.2% Oph 5 ML BOTTLE 1 DROP EYE-BOTH (09:23)
[2022-12-14 11:15] LABS: Glucose, Whole Blood 207 mg/dL (60-115)
[2022-12-14 11:53] VITALS: BP 156/67; PULSE 75; RESP 20; TEMP 37.1; O2SAT 89
[2022-12-14] MEDS: ondansetron HCL 4 MG/2 ML VIAL IVPUSH (13:22)
[2022-12-14] MEDS: Enoxaparin Sodium 40 MG/0.4 ML SYRINGE SUBCUT (13:22)
[2022-12-14 15:14] VITALS: BP 151/66; PULSE 65; RESP 16; TEMP 37.2; O2SAT 94
--- NOTE | 2022-12-14 16:19 | P.PNIM_ITS ---
Subjective Subjective Date of Service: 12/14/22 Interval History: Continues to improve. No acute issues overnight Review of Systems Denies chest pain Denies shortness of breath Denies nausea vomiting diarrhea Denies fever chills Physical Exam 2 Vital Signs: Vital Signs: Last Vital Signs Temp 98.9 F 12/14/22 15:14 Pulse 65 12/14/22 15:14 Resp 16 12/14/22 15:14 BP 151/66 H 12/14/22 15:14 Pulse Ox 94 12/14/22 15:14 O2 Del Method Nasal Cannula 12/14/22 15:14 O2 Flow Rate 2 12/14/22 15:14 Oxygen Flow Rate 1.5 12/14/22 15:00 BMI result Body Mass Index 32.6 Const: Other: No acute issues Resp: Other: Clear to auscultation bilaterally. No rales rhonchi or wheezes Cardio: Other: No S4; positive S1-S2; no S3 murmurs rubs or gallops GI: Other: Soft nontender nondistended normoactive bowel sounds Extrem: Other: No edema bilaterally Objective Data Active Medications Acetaminophen (Acetaminophen 325 Mg Tablet) 650 mg PO Q6H PRN PRN Reason: Pain, Mild (Pain Scale 1-3) Last Admin: 12/11/22 10:28 Dose: 650 mg Documented By: MELQUIADES Acetaminophen (Acetaminophen 325 Mg Tablet) 650 mg PO TID [facility] Last Admin: 12/14/22 09:15 Dose: 650 mg Documented By: MAKENNA Atorvastatin Calcium (Atorvastatin Calcium 40 Mg Tablet) 40 mg PO BEDTIME [facility] Last Admin: 12/13/22 21:30 Dose: 40 mg Documented By: SILVERIO Brimonidine Tartrate (Brimonidine Tartrate 0.2% Oph 5 Ml Bottle) 1 drop EYE- BOTH BID [facility] Last Admin: 12/14/22 09:23 Dose: 1 drop Documented By: MAKENNA Dextrose (Dextrose 50 % 25 Gm/50 Ml Syringe) 25 gm IVPUSH Q15M PRN; Protocol PRN Reason: per Hypoglycemia Standing Ord. Docusate Sodium (Docusate Sodium 100 Mg Capsule) 200 mg PO DAILY [facility] Last Admin: 12/14/22 09:15 Dose: 200 mg Documented By: MAKENNA Dorzolamide/Timolol (Dorzolamide/Timolo 2.23%/0.68% 10 Ml Drbtl) 1 drop EYE- BOTH BID [facility] Last Admin: 12/14/22 09:23 Dose: 1 drop Documented By: MAKENNA Enoxaparin Sodium (Enoxaparin Sodium 40 Mg/0.4 Ml Syringe) 40 mg SUBCUT Q24H [facility] Last Admin: 12/14/22 13:22 Dose: 40 mg Documented By: MAKENNA Fentanyl (Fentanyl Citrate/Pf 100 Mcg/2 Ml Vial) 25 mcg IVPUSH Q5M PRN; Protocol PRN Reason: Pain, Moderate(Pain Scale 4-6) Gabapentin (Gabapentin 300 Mg Capsule) 300 mg PO BEDTIME [facility] Last Admin: 12/13/22 21:30 Dose: 300 mg Documented By: SILVERIO Glucose (Glucose Gel 15 Gm Gel..Gram.) 15 gm PO Q15M PRN; Protocol PRN Reason: per Hypoglycemia Standing Ord. Hydromorphone HCl (Hydromorphone Hcl 0.5 Mg/0.5 Ml Syringe) 0.5 mg IVPUSH Q4H PRN; Protocol PRN Reason: Pain, Severe (Pain Scale 7-10) Last Admin: 12/14/22 09:18 Dose: 0.5 mg Documented By: MAKENNA Doxycycline Hyclate 100 mg/ (Sodium Chloride) 250 mls @ 166.67 mls/hr IV Q12H [facility] Last Infusion: 12/14/22 11:06 Dose: Infused Documented By: MAKENNA Insulin Glargine (Insulin Glargine,Hum.Rec.Anlog 100 Unit/Ml 10 Ml Vial) 14 unit SUBCUT BEDTIME [facility] Last Admin: 12/13/22 21:29 Dose: 14 unit Documented By: SILVERIO Insulin Human Lispro (Insulin Lispro 100 Unit/Ml 3 Ml Vial) 0 unit SUBCUT QIDACHS [facility]; Protocol Last Admin: 12/14/22 13:22 Dose: 6 unit Documented By: MAKENNA Melatonin (Melatonin 3 Mg Tablet) 6 mg PO BEDTIME PRN PRN Reason: Insomnia Metoprolol Succinate (Metoprolol Succinate Er 25 Mg Tab.Er.24h) 25 mg PO BEDTIME [facility]; Protocol Last Admin: 12/13/22 21:32 Dose: 25 mg Documented By: SILVERIO Ondansetron HCl (Ondansetron Hcl 4 Mg/2 Ml Vial) 4 mg IVPUSH Q8H PRN PRN Reason: Nausea and Vomiting Last Admin: 12/14/22 13:22 Dose: 4 mg Documented By: MAKENNA Oxycodone HCl (Oxycodone Hcl Immed Release 5 Mg Tablet) 5 mg PO Q6H PRN PRN Reason: Pain, Moderate(Pain Scale 4-6) Last Admin: 12/13/22 12:41 Dose: 5 mg Documented By: JOSE Pantoprazole Sodium (Pantoprazole Sodium 40 Mg/10 Ml Vial) 40 mg IVPUSH BID@0630,1630 [facility] Last Admin: 12/14/22 05:28 Dose: 40 mg Documented By: SILVERIO Polyethylene Glycol (Polyethylene Glycol 3350 17 Gm Powd.Pack) 17 gm PO DAILY [facility] Last Admin: 12/14/22 09:19 Dose: 17 gm Documented By: MAKENNA Sodium Chloride (0.9 % Sodium Chloride Flush 3 Ml Syringe) 3 ml IVFLUSH QSHIFT [facility] Last Admin: 12/14/22 09:19 Dose: 3 ml Documented By: MAKENNA Tamsulosin HCl (Tamsulosin Hcl 0.4 Mg Capsule) 0.4 mg PO BEDTIME [facility] Last Admin: 12/13/22 21:30 Dose: 0.4 mg Documented By: SILVERIO Labs 12/14/22 06:28 12/14/22 06:28 Labs: Laboratory Results - last 24 hr 12/13/22 12/13/22 12/14/22 16:44 20:50 06:28 MCV 97.1 MCH 31.9 MCHC 32.8 RDW 14.1 Plt Count 151 L MPV 11.2 Absolute Nucleated RBC 0.000 Nucleated RBC % (auto) 0.0 Anion Gap 15 Estim Creat Clear Calc 44.5 Estimated GFR 47 POC Glucose 228 H 230 H Random Glucose 209 H Calcium 8.5 12/14/22 12/14/22 07:44 11:05 MCV MCH MCHC RDW Plt Count MPV Absolute Nucleated RBC Nucleated RBC % (auto) Anion Gap Estim Creat Clear Calc Estimated GFR POC Glucose 207 H 207 H Random Glucose Calcium Assessment and Plan (1) Intertrochanteric fracture of right femur: Status: Acute (2) DEAN (acute kidney injury): Status: Acute Plan 77-year-old male with pertinent history of insulin-dependent diabetes mellitus with neuropathy, congestive heart failure with preserved ejection fraction, gastro esophageal reflux disease, coronary artery disease, essential hypertension who presents to the emergency department for evaluation after a fall. 1.Inter trochanteric fracture of right femur -POD 4.. No acute issues -pain control adequate -adjust as indicated -further plans as per Ortho 2.DEAN on chronic kidney disease stage 3 -slowly improving with volume repletion -follow renals/divalents 3.Urinary retention -multifactorial including anesthesia/opiates/BPH -continue alpha blockade -voiding trial in a.m. 4.Acute on chronic anemia -hemoglobin stable -follow daily CBCs 5.DMII -acceptable control on current therapies -lispro correctional scale -adjust as indicated Lovenox Full code Will need continued inpatient hospital stay, for intratrochanteric right femur fracture status post surgery now DEAN receiving IV fluids and close clinical monitoring. Time Spent With Patient Time: Total time managing care of this patient today ____ minutes. Quality Stroke Does the patient have a stroke diagnosis?: No VTE Prior VTE?: No VTE Risk Level:: Medical - moderate - high VTE Device Contraindication: Treatment Not Indicated VTE Drug Contraindication: Treatment Not Indicated
[2022-12-14 16:44] LABS: Glucose, Whole Blood 216 mg/dL (60-115)
[2022-12-14 19:34] LABS: Glucose, Whole Blood 293 mg/dL (60-115)
[2022-12-14 20:00] VITALS: BP 152/72; PULSE 77; RESP 16; TEMP 37.2; O2SAT 92
[2022-12-14 20:24] LABS: Glucose, Whole Blood 318 mg/dL (60-115)
[2022-12-14] MEDS: Metoprolol Succinate ER 25 MG TAB.ER.24H PO (20:49)
[2022-12-14] MEDS: Tamsulosin HCL 0.4 MG CAPSULE PO (20:49)
[2022-12-14] MEDS: Atorvastatin Calcium 40 MG TABLET PO (20:50)
[2022-12-14] MEDS: Doxycycline Hyclate 100 MG in 0.9 % Sodium Chloride 250 ML 166 MG IV (20:50)
[2022-12-14] MEDS: Insulin Glargine,Hum.rec.anlog 100 UNIT/ML 10 ML VIAL 14 UNIT SUBCUT (21:01)
[2022-12-14] MEDS: Gabapentin 300 MG CAPSULE PO (22:43)
[2022-12-15] VITALS (7 sets, daily range): BP systolic 135–186; BP diastolic 62–87; PULSE 69–84; RESP 18–20; TEMP 36.2–37.2; O2SAT 92–94
[2022-12-15] MEDS: Pantoprazole Sodium 40 MG/10 ML VIAL IVPUSH ×2 (05:44→16:27)
[2022-12-15 07:22] LABS: Glucose, Whole Blood 214 mg/dL (60-115)
[2022-12-15 08:13] LABS: MANUAL DIFF FLAG NO
[2022-12-15 08:22] LABS: Basophils Absolute Auto 0.1 X10*3/uL (0.0-0.2); Basophils Percent Auto 0.5 % (0-2); Eosinophils Absolute Auto 0.2 X10*3/uL (0.0-0.4); Eosinophils Percent Auto 1.9 % (0-4); Imm Gran Abs Auto 0.05 X10*3/uL (0.00-0.03); Imm Gran Pct Auto 0.5 % (0.0-0.4); Lymphocytes Absolute Auto 1.6 X10*3/uL (1.2-4.9); Lymphocytes Percent Auto 14.3 % (20-40); Mean Corpuscular HGB Conc 32.1 g/dl (31.0-36.0); Mean Corpuscular Hemoglobin 31.5 pg (27.0-33.0); Mean Corpuscular Volume 97.9 fL (80.0-98.0); Mean Platelet Volume 11.3 fL (9.4-12.4); Monocytes Percent Auto 8.6 % (2-11); Neutrophils Absolute Auto 8.2 x10*3/uL (2.0-8.3); Neutrophils Percent Auto 74.2 % (45-73); Platelet Count 180 X10*3/uL (160-400); Red Blood Count 2.86 X10*6/uL (4.60-5.80); White Blood Count 11.1 X10*3/uL (4.8-10.8)
[2022-12-15] MEDS: Doxycycline Hyclate 100 MG in 0.9 % Sodium Chloride 250 ML 166.67 MG IV ×2 (08:22→20:48)
[2022-12-15] MEDS: polyethylene glycoL 3350 17 GM POWD.PACK PO (08:23)
[2022-12-15] MEDS: Docusate Sodium 100 MG CAPSULE 200 MG PO (08:23)
[2022-12-15] MEDS: Insulin Lispro 100 UNIT/ML 3 ML VIAL SUBCUT ×4 (08:23→20:49)
[2022-12-15] MEDS: Brimonidine Tartrate 0.2% Oph 5 ML BOTTLE 1 DROP EYE-BOTH ×2 (08:24→20:48)
[2022-12-15] MEDS: Acetaminophen 325 MG TABLET 650 MG PO ×3 (08:24→20:47)
[2022-12-15] MEDS: Dorzolamide/Timolo 2.23%/0.68% 10 ML DRBTL 1 DROP EYE-BOTH ×2 (08:24→20:48)
[2022-12-15] MEDS: 0.9 % Sodium Chloride Flush 3 ML SYRINGE IVFLUSH (08:25)
[2022-12-15 08:42] LABS: Alanine Aminotransferase 23 U/L (0-40); Albumin Level 2.9 g/dL (3.5-5.0); Alkaline Phosphatase 103 U/L (39-117); Anion Gap 14 (12-20); Aspartate Amino Transferase 39 U/L (5-37); Blood Urea Nitrogen 46 mg/dL (9-16); Calcium 8.7 mg/dL (8.4-10.2); Carbon Dioxide 24 mmol/L (22-29); Chloride 116 mmol/L (96-108); Creatinine Clr Calc Pharmacy 51.6; Estimated Glomerular Filt Rate 56; Glucose Fasting 215 mg/dL (60-99); Potassium 4.1 mmol/L (3.3-5.1); Sodium 150 mmol/L (135-145); Total Protein 6.1 g/dL (6.5-8.0)
[2022-12-15 12:00] LABS: Glucose, Whole Blood 197 mg/dL (60-115)
[2022-12-15] MEDS: Enoxaparin Sodium 40 MG/0.4 ML SYRINGE SUBCUT (12:26)
--- NOTE | 2022-12-15 12:55 | P.PNIM_ITS ---
Subjective Subjective Date of Service: 12/15/22 Interval History: Continues to improve. Pain control adequate. No acute issues Review of Systems Denies chest pain Denies shortness of breath Denies nausea vomiting diarrhea Denies fever chills Physical Exam 2 Vital Signs: Vital Signs: Last Vital Signs Temp 97.6 F 12/15/22 12:00 Pulse 84 12/15/22 12:00 Resp 20 12/15/22 12:00 BP 146/62 H 12/15/22 12:00 Pulse Ox 94 12/15/22 12:00 O2 Del Method Room Air 12/15/22 12:00 O2 Flow Rate 1.5 12/15/22 04:00 Oxygen Flow Rate 1.5 12/14/22 15:00 BMI result Body Mass Index 32.6 Const: Other: No acute issues Resp: Other: Clear to auscultation bilaterally. No rales rhonchi or wheezes Cardio: Other: No S4; positive S1-S2; no S3 murmurs rubs or gallops GI: Other: Soft nontender nondistended normoactive bowel sounds Extrem: Other: No edema bilaterally Objective Data Active Medications Acetaminophen (Acetaminophen 325 Mg Tablet) 650 mg PO Q6H PRN PRN Reason: Pain, Mild (Pain Scale 1-3) Last Admin: 12/11/22 10:28 Dose: 650 mg Documented By: MELQUIADES Acetaminophen (Acetaminophen 325 Mg Tablet) 650 mg PO TID [facility] Last Admin: 12/15/22 08:24 Dose: 650 mg Documented By: MELQUIADES Atorvastatin Calcium (Atorvastatin Calcium 40 Mg Tablet) 40 mg PO BEDTIME [facility] Last Admin: 12/14/22 20:50 Dose: 40 mg Documented By: FILIPPO Brimonidine Tartrate (Brimonidine Tartrate 0.2% Oph 5 Ml Bottle) 1 drop EYE- BOTH BID [facility] Last Admin: 12/15/22 08:24 Dose: 1 drop Documented By: MELQUIADES Dextrose (Dextrose 50 % 25 Gm/50 Ml Syringe) 25 gm IVPUSH Q15M PRN; Protocol PRN Reason: per Hypoglycemia Standing Ord. Docusate Sodium (Docusate Sodium 100 Mg Capsule) 200 mg PO DAILY [facility] Last Admin: 12/15/22 08:23 Dose: 200 mg Documented By: MELQUIADES Dorzolamide/Timolol (Dorzolamide/Timolo 2.23%/0.68% 10 Ml Drbtl) 1 drop EYE- BOTH BID [facility] Last Admin: 12/15/22 08:24 Dose: 1 drop Documented By: MELQUIADES Enoxaparin Sodium (Enoxaparin Sodium 40 Mg/0.4 Ml Syringe) 40 mg SUBCUT Q24H [facility] Last Admin: 12/15/22 12:26 Dose: 40 mg Documented By: MELQUIADES Fentanyl (Fentanyl Citrate/Pf 100 Mcg/2 Ml Vial) 25 mcg IVPUSH Q5M PRN; Protocol PRN Reason: Pain, Moderate(Pain Scale 4-6) Gabapentin (Gabapentin 300 Mg Capsule) 300 mg PO BEDTIME [facility] Last Admin: 12/14/22 22:43 Dose: 300 mg Documented By: FILIPPO Glucose (Glucose Gel 15 Gm Gel..Gram.) 15 gm PO Q15M PRN; Protocol PRN Reason: per Hypoglycemia Standing Ord. Hydromorphone HCl (Hydromorphone Hcl 0.5 Mg/0.5 Ml Syringe) 0.5 mg IVPUSH Q4H PRN; Protocol PRN Reason: Pain, Severe (Pain Scale 7-10) Last Admin: 12/14/22 09:18 Dose: 0.5 mg Documented By: MAKENNA Doxycycline Hyclate 100 mg/ (Sodium Chloride) 250 mls @ 166.67 mls/hr IV Q12H [facility] Last Infusion: 12/15/22 09:59 Dose: Infused Documented By: MELQUIADES Insulin Glargine (Insulin Glargine,Hum.Rec.Anlog 100 Unit/Ml 10 Ml Vial) 14 unit SUBCUT BEDTIME [facility] Last Admin: 12/14/22 21:01 Dose: 14 unit Documented By: FILIPPO Insulin Human Lispro (Insulin Lispro 100 Unit/Ml 3 Ml Vial) 0 unit SUBCUT QIDACHS [facility]; Protocol Last Admin: 12/15/22 12:26 Dose: 4 unit Documented By: MELQUIADES Melatonin (Melatonin 3 Mg Tablet) 6 mg PO BEDTIME PRN PRN Reason: Insomnia Metoprolol Succinate (Metoprolol Succinate Er 25 Mg Tab.Er.24h) 25 mg PO BEDTIME [facility]; Protocol Last Admin: 12/14/22 20:49 Dose: 25 mg Documented By: FILIPPO Ondansetron HCl (Ondansetron Hcl 4 Mg/2 Ml Vial) 4 mg IVPUSH Q8H PRN PRN Reason: Nausea and Vomiting Last Admin: 12/14/22 13:22 Dose: 4 mg Documented By: MAKENNA Oxycodone HCl (Oxycodone Hcl Immed Release 5 Mg Tablet) 5 mg PO Q6H PRN PRN Reason: Pain, Moderate(Pain Scale 4-6) Last Admin: 12/13/22 12:41 Dose: 5 mg Documented By: JOSE Pantoprazole Sodium (Pantoprazole Sodium 40 Mg/10 Ml Vial) 40 mg IVPUSH BID@0630,1630 [facility] Last Admin: 12/15/22 05:44 Dose: 40 mg Documented By: FILIPPO Polyethylene Glycol (Polyethylene Glycol 3350 17 Gm Powd.Pack) 17 gm PO DAILY [facility] Last Admin: 12/15/22 08:23 Dose: 17 gm Documented By: MELQUIADES Sodium Chloride (0.9 % Sodium Chloride Flush 3 Ml Syringe) 3 ml IVFLUSH QSHIFT [facility] Last Admin: 12/15/22 08:25 Dose: 3 ml Documented By: MELQUIADES Tamsulosin HCl (Tamsulosin Hcl 0.4 Mg Capsule) 0.4 mg PO BEDTIME [facility] Last Admin: 12/14/22 20:49 Dose: 0.4 mg Documented By: FILIPPO Labs 12/15/22 06:38 12/15/22 06:37 Labs: Laboratory Results - last 24 hr 12/14/22 12/14/22 12/14/22 16:41 19:29 20:15 MCV MCH MCHC RDW Plt Count MPV Immature Gran % (Auto) Neut % (Auto) Lymph % (Auto) [place] % (Auto) Eos % (Auto) Baso % (Auto) Lymph # (Auto) [place] # (Auto) Eos # (Auto) Baso # (Auto) Abs Immat Gran (auto) Absolute Neuts (auto) Absolute Nucleated RBC Nucleated RBC % (auto) Anion Gap Estim Creat Clear Calc Estimated GFR POC Glucose 216 H 293 H 318 H Fasting Glucose Calcium Total Bilirubin AST ALT Alkaline Phosphatase Total Protein Albumin 12/15/22 12/15/2223 06:37 06:38 07:16 MCV 97.9 MCH 31.5 MCHC 32.1 RDW 14.0 Plt Count 180 MPV 11.3 Immature Gran % (Auto) 0.5 H Neut % (Auto) 74.2 H Lymph % (Auto) 14.3 L [place] % (Auto) 8.6 Eos % (Auto) 1.9 Baso % (Auto) 0.5 Lymph # (Auto) 1.6 [place] # (Auto) 1.0 Eos # (Auto) 0.2 Baso # (Auto) 0.1 Abs Immat Gran (auto) 0.05 H Absolute Neuts (auto) 8.2 Absolute Nucleated RBC 0.000 Nucleated RBC % (auto) 0.0 Anion Gap 14 Estim Creat Clear Calc 51.6 Estimated GFR 56 POC Glucose 214 H Fasting Glucose 215 H Calcium 8.7 Total Bilirubin 1.0 AST 39 H ALT 23 Alkaline Phosphatase 103 Total Protein 6.1 L Albumin 2.9 L 12/15/22 11:56 MCV MCH MCHC RDW Plt Count MPV Immature Gran % (Auto) Neut % (Auto) Lymph % (Auto) [place] % (Auto) Eos % (Auto) Baso % (Auto) Lymph # (Auto) [place] # (Auto) Eos # (Auto) Baso # (Auto) Abs Immat Gran (auto) Absolute Neuts (auto) Absolute Nucleated RBC Nucleated RBC % (auto) Anion Gap Estim Creat Clear Calc Estimated GFR POC Glucose 197 H Fasting Glucose Calcium Total Bilirubin AST ALT Alkaline Phosphatase Total Protein Albumin Assessment and Plan (1) Intertrochanteric fracture of right femur: Status: Acute (2) DEAN (acute kidney injury): Status: Acute Plan 77-year-old male with pertinent history of insulin-dependent diabetes mellitus with neuropathy, congestive heart failure with preserved ejection fraction, gastro esophageal reflux disease, coronary artery disease, essential hypertension who presents to the emergency department for evaluation after a fall. 1.Inter trochanteric fracture of right femur -POD 5.. No acute issues -pain control adequate -adjust as indicated -further plans as per Ortho 2.DEAN on chronic kidney disease stage 3 -resolved -follow renals/divalents 3.Urinary retention -multifactorial including anesthesia/opiates/BPH -continue alpha blockade -voiding trial in a.m. 4.Acute on chronic anemia -hemoglobin stable -follow daily CBCs 5.DMII -acceptable control on current therapies -lispro correctional scale -adjust as indicated Blayne Full code Will need continued inpatient hospital stay, for intratrochanteric right femur fracture status post surgery now DEAN receiving IV fluids and close clinical monitoring. Time Spent With Patient Time: Total time managing care of this patient today ____ minutes. Quality Stroke Does the patient have a stroke diagnosis?: No VTE Prior VTE?: No VTE Risk Level:: Medical - moderate - high VTE Device Contraindication: Treatment Not Indicated VTE Drug Contraindication: Treatment Not Indicated
--- NOTE | 2022-12-15 13:28 | PM.PNNEP ---
Subjective Subjective Date of Service: 12/15/22 Interval history: Hypernatremic Physical Exam Vital Signs: Vital Signs: Last Vital Signs Temp 97.6 F 12/15/22 12:00 Pulse 84 12/15/22 12:00 Resp 20 12/15/22 12:00 BP 146/62 H 12/15/22 12:00 Pulse Ox 94 12/15/22 12:00 O2 Del Method Room Air 12/15/22 12:00 O2 Flow Rate 1.5 12/15/22 04:00 Oxygen Flow Rate 1.5 12/14/22 15:00 BMI result Body Mass Index 32.6 Const: Other: General awake alert, lying in bed , in no acute distress Neck supple, no JVD CVS Regular rate and rhythm Lungs Regular breath sounds bilaterally, no wheezing or crackles appreciated Abdomen soft, non tender,bs +, no guarding, no rigidity Neuro awake alert x3, no focal motor deficit Musculoskeletal: Right hip dressing in place Psych: Appropriate affect No pedal edema Objective Data Labs 12/15/22 06:38 12/15/22 06:37 Labs: Laboratory Results - last 24 hr 12/14/22 12/14/22 12/14/22 16:41 19:29 20:15 WBC RBC Hgb Hct MCV MCH MCHC RDW Plt Count MPV Immature Gran % (Auto) Neut % (Auto) Lymph % (Auto) [place] % (Auto) Eos % (Auto) Baso % (Auto) Lymph # (Auto) [place] # (Auto) Eos # (Auto) Baso # (Auto) Abs Immat Gran (auto) Absolute Neuts (auto) Absolute Nucleated RBC Nucleated RBC % (auto) Sodium Potassium Chloride Carbon Dioxide Anion Gap BUN Creatinine Estim Creat Clear Calc Estimated GFR POC Glucose 216 H 293 H 318 H Fasting Glucose Calcium Total Bilirubin AST ALT Alkaline Phosphatase Total Protein Albumin 12/15/22 12/15/22 12/15/22 06:37 06:38 07:16 WBC 11.1 H RBC 2.86 L Hgb 9.0 L Hct 28.0 L MCV 97.9 MCH 31.5 MCHC 32.1 RDW 14.0 Plt Count 180 MPV 11.3 Immature Gran % (Auto) 0.5 H Neut % (Auto) 74.2 H Lymph % (Auto) 14.3 L [place] % (Auto) 8.6 Eos % (Auto) 1.9 Baso % (Auto) 0.5 Lymph # (Auto) 1.6 [place] # (Auto) 1.0 Eos # (Auto) 0.2 Baso # (Auto) 0.1 Abs Immat Gran (auto) 0.05 H Absolute Neuts (auto) 8.2 Absolute Nucleated RBC 0.000 Nucleated RBC % (auto) 0.0 Sodium 150 H Potassium 4.1 Chloride 116 H Carbon Dioxide 24 Anion Gap 14 BUN 46 H Creatinine 1.25 Estim Creat Clear Calc 51.6 Estimated GFR 56 POC Glucose 214 H Fasting Glucose 215 H Calcium 8.7 Total Bilirubin 1.0 AST 39 H ALT 23 Alkaline Phosphatase 103 Total Protein 6.1 L Albumin 2.9 L 12/15/22 11:56 WBC RBC Hgb Hct MCV MCH MCHC RDW Plt Count MPV Immature Gran % (Auto) Neut % (Auto) Lymph % (Auto) [place] % (Auto) Eos % (Auto) Baso % (Auto) Lymph # (Auto) [place] # (Auto) Eos # (Auto) Baso # (Auto) Abs Immat Gran (auto) Absolute Neuts (auto) Absolute Nucleated RBC Nucleated RBC % (auto) Sodium Potassium Chloride Carbon Dioxide Anion Gap BUN Creatinine Estim Creat Clear Calc Estimated GFR POC Glucose 197 H Fasting Glucose Calcium Total Bilirubin AST ALT Alkaline Phosphatase Total Protein Albumin Procedures Date of Service Date of Service: 12/15/22 Assessment & Plan Assessment and plan (1) DEAN (acute kidney injury): Status: Acute Plan 71-year-old man with stage III CKD with a baseline creatinine of 1.3mg/dL has undergone hip surgery and sustained acute kidney injury. Obstruction ruled out Overall hypovolemic DEAN with improving Cr with IVF support. Overall supported by Hyaline casts and Magali 26 All in the setting of poor PO with N/V presyncope Recommendations Volume deficit is repleted. Now we need to focus on Water deficit. D5/W at 125cc/hr x1 liter Renal panel daily hold diuretics PATEL ARB avoid NSAIDs Time Spent With Patient Time: Total time managing care of this patient today ____ minutes. Progress Note: Quality Stroke Does the patient have a stroke diagnosis?: No
[2022-12-15] MEDS: Dextrose 5 % 1,000 ML 125 ML IVCONT (13:32)
[2022-12-15] MEDS: HYDROmorphone HCl 0.5 MG/0.5 ML SYRINGE IVPUSH (13:58)
[2022-12-15 16:25] LABS: Glucose, Whole Blood 272 mg/dL (60-115)
[2022-12-15 19:53] LABS: Glucose, Whole Blood 231 mg/dL (60-115)
[2022-12-15] MEDS: Metoprolol Succinate ER 25 MG TAB.ER.24H PO (20:48)
[2022-12-15] MEDS: Tamsulosin HCL 0.4 MG CAPSULE PO (20:48)
[2022-12-15] MEDS: Atorvastatin Calcium 40 MG TABLET PO (20:48)
[2022-12-15] MEDS: Insulin Glargine,Hum.rec.anlog 100 UNIT/ML 10 ML VIAL 14 UNIT SUBCUT (20:49)
[2022-12-15] MEDS: Gabapentin 300 MG CAPSULE PO (21:06)
[2022-12-16] VITALS (9 sets, daily range): BP systolic 142–186; BP diastolic 53–79; PULSE 64–74; RESP 15–20; TEMP 36.3–36.8; O2SAT 91–98
[2022-12-16] MEDS: Pantoprazole Sodium 40 MG/10 ML VIAL IVPUSH (05:52)
[2022-12-16] MEDS: Dextrose 5 % 1,000 ML 125 ML IVCONT (05:53)
[2022-12-16 07:16] LABS: MANUAL DIFF FLAG NO
[2022-12-16 07:21] LABS: Basophils Absolute Auto 0.1 X10*3/uL (0.0-0.2); Basophils Percent Auto 0.5 % (0-2); Eosinophils Absolute Auto 0.4 X10*3/uL (0.0-0.4); Eosinophils Percent Auto 3.5 % (0-4); Hemoglobin 8.9 g/dl (14.0-18.0); Imm Gran Abs Auto 0.05 X10*3/uL (0.00-0.03); Imm Gran Pct Auto 0.5 % (0.0-0.4); Lymphocytes Absolute Auto 1.8 X10*3/uL (1.2-4.9); Lymphocytes Percent Auto 18.1 % (20-40); Mean Corpuscular HGB Conc 31.8 g/dl (31.0-36.0); Mean Corpuscular Hemoglobin 31.6 pg (27.0-33.0); Mean Corpuscular Volume 99.3 fL (80.0-98.0); Mean Platelet Volume 11.1 fL (9.4-12.4); Monocytes Absolute Auto 0.9 X10*3/uL (0.1-1.2); Monocytes Percent Auto 8.8 % (2-11); Neutrophils Absolute Auto 6.9 x10*3/uL (2.0-8.3); Neutrophils Percent Auto 68.6 % (45-73); Platelet Count 191 X10*3/uL (160-400); Red Blood Count 2.82 X10*6/uL (4.60-5.80); Red Cell Distribution Width 13.8 % (11.0-16.0); White Blood Count 10.1 X10*3/uL (4.8-10.8)
[2022-12-16 07:42] LABS: Alanine Aminotransferase 30 U/L (0-40); Albumin Level 2.8 g/dL (3.5-5.0); Alkaline Phosphatase 109 U/L (39-117); Anion Gap 12 (12-20); Aspartate Amino Transferase 39 U/L (5-37); Blood Urea Nitrogen 37 mg/dL (9-16); Calcium 8.7 mg/dL (8.4-10.2); Carbon Dioxide 25 mmol/L (22-29); Chloride 114 mmol/L (96-108); Creatinine Clr Calc Pharmacy 56.6; Estimated Glomerular Filt Rate > 60; Glucose Fasting 244 mg/dL (60-99); Potassium 4.3 mmol/L (3.3-5.1); Sodium 147 mmol/L (135-145); Total Protein 5.9 g/dL (6.5-8.0)
[2022-12-16 07:57] LABS: Glucose, Whole Blood 220 mg/dL (60-115)
[2022-12-16] MEDS: Dorzolamide/Timolo 2.23%/0.68% 10 ML DRBTL 1 DROP EYE-BOTH ×2 (08:03→20:08)
[2022-12-16] MEDS: Brimonidine Tartrate 0.2% Oph 5 ML BOTTLE 1 DROP EYE-BOTH ×2 (08:03→20:07)
[2022-12-16] MEDS: Acetaminophen 325 MG TABLET 650 MG PO ×3 (08:04→20:12)
[2022-12-16] MEDS: polyethylene glycoL 3350 17 GM POWD.PACK PO (08:04)
[2022-12-16] MEDS: Docusate Sodium 100 MG CAPSULE 200 MG PO (08:04)
[2022-12-16] MEDS: oxyCODONE HCl Immed Release 5 MG TABLET PO ×2 (08:05→15:14)
[2022-12-16] MEDS: Insulin Lispro 100 UNIT/ML 3 ML VIAL SUBCUT ×4 (08:05→21:26)
[2022-12-16] MEDS: Doxycycline Hyclate 100 MG in 0.9 % Sodium Chloride 250 ML 166.67 MG IV (08:10)
[2022-12-16] MEDS: amLODIPine Besylate 10 MG TABLET PO (09:38)
--- NOTE | 2022-12-16 10:23 | P.OP_ITS ---
Operative Note Operative Note Date of Service: 12/10/22 Narrative: Date of Service: 12/10/22 Pre-op diagnosis: Right hip fracture Post-op diagnosis: same Procedure: Right hip IMN Implants: Jhony IMN [id number] 125 deg with 95 mm hip screw Surgeon: Randy Melton MD Anesthesia: GETA and local Was an Business Office Coordinator used for this Procedure?: No Estimated blood loss (mL): 200 IV fluids (mL): 750 Pathology: none sent Condition: stable Disposition: PACU Procedure in detail: Patient was brought to the operating room and prepped and draped in standard sterile fashion. Time-out was called to identify proper site procedure proper surgeon and IV antibiotics per weight were administered. He was positioned on the fracture table and a traction and slight internal rotation were performed and biplanar fluoroscopy confirmed initial fracture reduction. I then made a stab incision proximal to the greater trochanter in using a guidewire made a entry point just lateral to the tip of the greater trochanter and placed a guidewire into the femoral metadiaphysis. I then over-reamed with 15 mm Reamer placed my ball-tip guidewire down distally in the femur and measured my length. I selected a [id number] 125deg nail and reamed up to a 13. I then placed a the nail. I turned my attention to the hip screw where I used a guidewire and a tip apex distance of less than 1.5 measured a 95mm hip screw. I then pre drilled and placed a hip screw using biplanar fluoroscopy. Once I was satisfied with the position of the hip screw I turned my attention to the distal aspect of the nail. I was satisfied with the alignement and no distal screw was placed. I then removed all I then placed my set screw proximally and removed all extraneous instrumentation. Final biplanar radiographs were taken. I was satisfied with the position of the hardware and the fracture reduction. I think copiously irrigated closed with absorbable sutures anthony and injected 30 mL of into the area of the incisions. Traction was let down patient was placed in sterile dressing awakened from anesthesia brought to recovery room stable condition there were no known complications.
--- NOTE | 2022-12-16 10:56 | P.PNNP_ITS ---
Subjective Subjective Date of Service: 12/16/22 Interval history: Events noted; All recent data reviewed Physical Exam 2 Vital Signs: Vital Signs: Last Vital Signs Temp 98.3 F 12/16/22 07:49 Pulse 74 12/16/22 07:49 Resp 20 12/16/22 07:49 BP 178/72 H 12/16/22 07:49 Pulse Ox 94 12/16/22 07:49 O2 Del Method Room Air 12/16/22 07:49 O2 Flow Rate 1.5 12/15/22 04:00 Oxygen Flow Rate 1.5 12/14/22 15:00 BMI result Body Mass Index 32.6 Const: General: no acute distress Eyes: EOM: EOMs intact bilaterally Resp: Auscultation: diminished lung sounds Cardio: Rate: regular rate GI: Palpation (GI): Soft to palpation Neuro: General: moves all extremities Objective Data Labs 12/16/22 06:19 12/16/22 06:19 Labs: Laboratory Results - last 24 hr 12/15/22 12/15/22 12/15/22 11:56 16:20 19:47 WBC RBC Hgb Hct MCV MCH MCHC RDW Plt Count MPV Immature Gran % (Auto) Neut % (Auto) Lymph % (Auto) [place] % (Auto) Eos % (Auto) Baso % (Auto) Lymph # (Auto) [place] # (Auto) Eos # (Auto) Baso # (Auto) Abs Immat Gran (auto) Absolute Neuts (auto) Absolute Nucleated RBC Nucleated RBC % (auto) Sodium Potassium Chloride Carbon Dioxide Anion Gap BUN Creatinine Estim Creat Clear Calc Estimated GFR POC Glucose 197 H 272 H 231 H Fasting Glucose Calcium Total Bilirubin AST ALT Alkaline Phosphatase Total Protein Albumin 12/16/22 12/16/22 06:19 07:46 WBC 10.1 RBC 2.82 L Hgb 8.9 L Hct 28.0 L MCV 99.3 H MCH 31.6 MCHC 31.8 RDW 13.8 Plt Count 191 MPV 11.1 Immature Gran % (Auto) 0.5 H Neut % (Auto) 68.6 Lymph % (Auto) 18.1 L [place] % (Auto) 8.8 Eos % (Auto) 3.5 Baso % (Auto) 0.5 Lymph # (Auto) 1.8 [place] # (Auto) 0.9 Eos # (Auto) 0.4 Baso # (Auto) 0.1 Abs Immat Gran (auto) 0.05 H Absolute Neuts (auto) 6.9 Absolute Nucleated RBC 0.000 Nucleated RBC % (auto) 0.0 Sodium 147 H Potassium 4.3 Chloride 114 H Carbon Dioxide 25 Anion Gap 12 BUN 37 H Creatinine 1.14 Estim Creat Clear Calc 56.6 Estimated GFR > 60 POC Glucose 220 H Fasting Glucose 244 H Calcium 8.7 Total Bilirubin 1.0 AST 39 H ALT 30 Alkaline Phosphatase 109 Total Protein 5.9 L Albumin 2.8 L Procedures Date of Service Date of Service: 12/16/22 Assessment & Plan Assessment and plan (1) DEAN (acute kidney injury): Status: Acute Assessment and Plan: 71-year-old man with stage III CKD with a baseline creatinine of 1.3mg/dL has undergone hip surgery and sustained acute kidney injury. Obstruction ruled out Overall hypovolemic DEAN with improved Cr with supportive management. (Hyaline casts and Magali 26) All in the setting of poor PO with N/V presyncope Hypernatremia improving hold diuretics PATEL ARB avoid NSAIDs; Shall F/U Progress Note: Quality Stroke Does the patient have a stroke diagnosis?: No
[2022-12-16 11:40] LABS: Glucose, Whole Blood 264 mg/dL (60-115)
[2022-12-16] MEDS: Enoxaparin Sodium 40 MG/0.4 ML SYRINGE SUBCUT (11:56)
--- NOTE | 2022-12-16 13:52 | MHC.CM.PN ---
Per rounds patient will be ready for discharge tomorrow.
[2022-12-16] MEDS: 0.9 % Sodium Chloride Flush 3 ML SYRINGE IVFLUSH (15:14)
--- NOTE | 2022-12-16 15:49 | PC.NURSE ---
per MD verbal order, jimenez was removed at 1545.pt is due to void at [id number].
[2022-12-16 16:12] LABS: Glucose, Whole Blood 275 mg/dL (60-115)
--- NOTE | 2022-12-16 16:24 | P.PNIM_ITS ---
Subjective Subjective Date of Service: 12/16/22 Interval History: Complaining of right hip pain with activity and movement, noted to have elevated blood pressures this morning, participated with physical therapy denies nausea vomiting abdominal pain, denies headache, no lightheadedness, no dizziness Review of Systems All other system reviewed and negative. Physical Exam 2 Vital Signs: Vital Signs: Last Vital Signs Temp 97.6 F 12/16/22 16:00 Pulse 64 12/16/22 16:00 Resp 18 12/16/22 16:00 BP 148/53 H 12/16/22 16:00 Pulse Ox 94 12/16/22 16:00 O2 Del Method Room Air 12/16/22 16:00 O2 Flow Rate 1.5 12/15/22 04:00 Oxygen Flow Rate 1.5 12/14/22 15:00 BMI result Body Mass Index 32.6 Const: Other: General awake alert, lying in bed , in no acute distress Neck supple, no JVD CVS Regular rate and rhythm Lungs Regular breath sounds bilaterally, no wheezing or crackles appreciated Abdomen soft, non tender,bs +, no guarding, no rigidity Neuro awake alert x3, no focal motor deficit Musculoskeletal: Right hip dressing in place, right hip pain with movement Psych: Appropriate affect No pedal edema Objective Data Active Medications Acetaminophen (Acetaminophen 325 Mg Tablet) 650 mg PO Q6H PRN PRN Reason: Pain, Mild (Pain Scale 1-3) Last Admin: 12/11/22 10:28 Dose: 650 mg Documented By: MELQUIADES Acetaminophen (Acetaminophen 325 Mg Tablet) 650 mg PO TID [facility] Last Admin: 12/16/22 15:14 Dose: 650 mg Documented By: JOSE Amlodipine Besylate (Amlodipine Besylate 10 Mg Tablet) 10 mg PO DAILY [facility]; Protocol Last Admin: 12/16/22 09:38 Dose: 10 mg Documented By: JOSE Atorvastatin Calcium (Atorvastatin Calcium 40 Mg Tablet) 40 mg PO BEDTIME [facility] Last Admin: 12/15/22 20:48 Dose: 40 mg Documented By: JOCELINE Brimonidine Tartrate (Brimonidine Tartrate 0.2% Oph 5 Ml Bottle) 1 drop EYE- BOTH BID [facility] Last Admin: 12/16/22 08:03 Dose: 1 drop Documented By: JOSE Dextrose (Dextrose 50 % 25 Gm/50 Ml Syringe) 25 gm IVPUSH Q15M PRN; Protocol PRN Reason: per Hypoglycemia Standing Ord. Docusate Sodium (Docusate Sodium 100 Mg Capsule) 200 mg PO DAILY [facility] Last Admin: 12/16/22 08:04 Dose: 200 mg Documented By: JOSE Dorzolamide/Timolol (Dorzolamide/Timolo 2.23%/0.68% 10 Ml Drbtl) 1 drop EYE- BOTH BID [facility] Last Admin: 12/16/22 08:03 Dose: 1 drop Documented By: JOSE Enoxaparin Sodium (Enoxaparin Sodium 40 Mg/0.4 Ml Syringe) 40 mg SUBCUT Q24H [facility] Last Admin: 12/16/22 11:56 Dose: 40 mg Documented By: JOSE Gabapentin (Gabapentin 300 Mg Capsule) 300 mg PO BEDTIME [facility] Last Admin: 12/15/22 21:06 Dose: 300 mg Documented By: JOCELINE Glucose (Glucose Gel 15 Gm Gel..Gram.) 15 gm PO Q15M PRN; Protocol PRN Reason: per Hypoglycemia Standing Ord. Hydromorphone HCl (Hydromorphone Hcl 0.5 Mg/0.5 Ml Syringe) 0.5 mg IVPUSH Q4H PRN; Protocol PRN Reason: Pain, Severe (Pain Scale 7-10) Last Admin: 12/15/22 13:58 Dose: 0.5 mg Documented By: MELQUIADES Doxycycline Hyclate 100 mg/ (Sodium Chloride) 250 mls @ 166.67 mls/hr IV Q12H [facility] Last Infusion: 12/16/22 09:40 Dose: Infused Documented By: JOSE Insulin Glargine (Insulin Glargine,Hum.Rec.Anlog 100 Unit/Ml 10 Ml Vial) 14 unit SUBCUT BEDTIME [facility] Last Admin: 12/15/22 20:49 Dose: 14 unit Documented By: JOCELINE Insulin Human Lispro (Insulin Lispro 100 Unit/Ml 3 Ml Vial) 0 unit SUBCUT QIDACHS [facility]; Protocol Last Admin: 12/16/22 11:55 Dose: 8 unit Documented By: JOSE Melatonin (Melatonin 3 Mg Tablet) 6 mg PO BEDTIME PRN PRN Reason: Insomnia Metoprolol Succinate (Metoprolol Succinate Er 25 Mg Tab.Er.24h) 25 mg PO BEDTIME [facility]; Protocol Last Admin: 12/15/22 20:48 Dose: 25 mg Documented By: JOCELINE Ondansetron HCl (Ondansetron Hcl 4 Mg/2 Ml Vial) 4 mg IVPUSH Q8H PRN PRN Reason: Nausea and Vomiting Last Admin: 12/14/22 13:22 Dose: 4 mg Documented By: MAKENNA Oxycodone HCl (Oxycodone Hcl Immed Release 5 Mg Tablet) 5 mg PO Q6H PRN PRN Reason: Pain, Moderate(Pain Scale 4-6) Last Admin: 12/16/22 15:14 Dose: 5 mg Documented By: JOSE Polyethylene Glycol (Polyethylene Glycol 3350 17 Gm Powd.Pack) 17 gm PO DAILY [facility] Last Admin: 12/16/22 08:04 Dose: 17 gm Documented By: JOES Sodium Chloride (0.9 % Sodium Chloride Flush 3 Ml Syringe) 3 ml IVFLUSH QSHIFT [facility] Last Admin: 12/16/22 15:14 Dose: 3 ml Documented By: JOSE Tamsulosin HCl (Tamsulosin Hcl 0.4 Mg Capsule) 0.4 mg PO BEDTIME [facility] Last Admin: 12/15/22 20:48 Dose: 0.4 mg Documented By: JOCELINE Labs 12/16/22 06:19 12/16/22 06:19 Labs: Laboratory Results - last 24 hr 12/10/22 12/15/22 12/15/22 10:00 16:20 19:47 MCV MCH MCHC RDW Plt Count MPV Immature Gran % (Auto) Neut % (Auto) Lymph % (Auto) [place] % (Auto) Eos % (Auto) Baso % (Auto) Lymph # (Auto) [place] # (Auto) Eos # (Auto) Baso # (Auto) Abs Immat Gran (auto) Absolute Neuts (auto) Absolute Nucleated RBC Nucleated RBC % (auto) Anion Gap Estim Creat Clear Calc Estimated GFR POC Glucose 272 H 231 H Fasting Glucose Calcium Total Bilirubin AST ALT Alkaline Phosphatase Total Protein Albumin Blood Type A Positive Antibody Screen NEGATIVE Crossmatch See Detail 09/25/23 09/25/23 09/25/23 06:19 07:46 11:33 MCV 99.3 H MCH 31.6 MCHC 31.8 RDW 13.8 Plt Count 191 MPV 11.1 Immature Gran % (Auto) 0.5 H Neut % (Auto) 68.6 Lymph % (Auto) 18.1 L [place] % (Auto) 8.8 Eos % (Auto) 3.5 Baso % (Auto) 0.5 Lymph # (Auto) 1.8 [place] # (Auto) 0.9 Eos # (Auto) 0.4 Baso # (Auto) 0.1 Abs Immat Gran (auto) 0.05 H Absolute Neuts (auto) 6.9 Absolute Nucleated RBC 0.000 Nucleated RBC % (auto) 0.0 Anion Gap 12 Estim Creat Clear Calc 56.6 Estimated GFR > 60 POC Glucose 220 H 264 H Fasting Glucose 244 H Calcium 8.7 Total Bilirubin 1.0 AST 39 H ALT 30 Alkaline Phosphatase 109 Total Protein 5.9 L Albumin 2.8 L Blood Type Antibody Screen Crossmatch 12/16/22 16:08 MCV MCH MCHC RDW Plt Count MPV Immature Gran % (Auto) Neut % (Auto) Lymph % (Auto) [place] % (Auto) Eos % (Auto) Baso % (Auto) Lymph # (Auto) [place] # (Auto) Eos # (Auto) Baso # (Auto) Abs Immat Gran (auto) Absolute Neuts (auto) Absolute Nucleated RBC Nucleated RBC % (auto) Anion Gap Estim Creat Clear Calc Estimated GFR POC Glucose 275 H Fasting Glucose Calcium Total Bilirubin AST ALT Alkaline Phosphatase Total Protein Albumin Blood Type Antibody Screen Crossmatch Assessment and Plan (1) Intertrochanteric fracture of right femur: Status: Acute (2) DEAN (acute kidney injury): Status: Acute Plan 77-year-old male with pertinent history of insulin-dependent diabetes mellitus with neuropathy, congestive heart failure with preserved ejection fraction, gastro esophageal reflux disease, coronary artery disease, essential hypertension who presents to the emergency department for evaluation after a fall. 1.Inter trochanteric fracture of right femur -POD 6.pain control adequate at rest -further plans as per Ortho 2.DEAN on chronic kidney disease stage 3 , likely hypovolemic DEAN due to poor by mouth intake, nausea and vomiting will continue to hold arbs, and Lasix, nephrotoxins no NSAIDs -resolved -follow BMP 3.Urinary retention -multifactorial including anesthesia/opiates/BPH -continue alpha blockade -DC Bliss catheter will give voiding trial 4.Acute on chronic anemia -hemoglobin stable, status post 2 units of blood transfusion, hematocrit stable 5.DMII -acceptable control continue Lantus 14 units and lispro correctional scale -adjust as indicated 6. Acute hypernatremia sodium improving, continue IV fluids, hold diuretics follow BMP 7. Hypertension elevated blood pressures since antihypertensive on hold will resume Norvasc 8. Early pneumonia/acute hypoxia 5 will DC IV doxycycline day 5, oxygen improved 94% on room air Lovenox Full code Will need continued inpatient hospital stay, for intratrochanteric right femur fracture status post surgery now receiving IV fluids for hypernatremia and close clinical monitoring. Time Spent With Patient Time: Total time managing care of this patient today ____ minutes. Quality Stroke Does the patient have a stroke diagnosis?: No VTE Prior VTE?: No VTE Risk Level:: Medical - moderate - high VTE Device Contraindication: Treatment Not Indicated VTE Drug Contraindication: Treatment Not Indicated
[2022-12-16] MEDS: Dextrose 5 % 1,000 ML 100 ML IVCONT (16:53)
[2022-12-16] MEDS: Atorvastatin Calcium 40 MG TABLET PO (20:11)
[2022-12-16] MEDS: Gabapentin 300 MG CAPSULE PO (20:11)
[2022-12-16] MEDS: Metoprolol Succinate ER 25 MG TAB.ER.24H PO (20:12)
[2022-12-16] MEDS: Tamsulosin HCL 0.4 MG CAPSULE PO (20:12)
[2022-12-16] MEDS: Insulin Glargine,Hum.rec.anlog 100 UNIT/ML 10 ML VIAL 14 UNIT SUBCUT (20:14)
[2022-12-16 21:02] LABS: Glucose, Whole Blood 295 mg/dL (60-115)
[2022-12-16] MEDS: HYDROmorphone HCl 0.5 MG/0.5 ML SYRINGE IVPUSH (22:14)
[2022-12-17 03:39] VITALS: BP 145/62; PULSE 76; RESP 20; TEMP 36.6; O2SAT 95
[2022-12-17 07:01] LABS: MANUAL DIFF FLAG NO
[2022-12-17 07:03] LABS: Glucose, Whole Blood 279 mg/dL (60-115)
[2022-12-17 07:19] VITALS: BP 161/71; PULSE 76; RESP 20; TEMP 37.2; O2SAT 95
[2022-12-17 07:47] LABS: Alanine Aminotransferase 24 U/L (0-40); Albumin Level 2.7 g/dL (3.5-5.0); Alkaline Phosphatase 104 U/L (39-117); Anion Gap 17 (12-20); Aspartate Amino Transferase 28 U/L (5-37); Bilirubin Total 1.1 mg/dL (0.0-1.0); Blood Urea Nitrogen 37 mg/dL (9-16); Calcium 8.3 mg/dL (8.4-10.2); Carbon Dioxide 21 mmol/L (22-29); Chloride 104 mmol/L (96-108); Creatinine Clr Calc Pharmacy 54.7; Estimated Glomerular Filt Rate 60; Glucose Fasting 280 mg/dL (60-99); Potassium 3.8 mmol/L (3.3-5.1); Sodium 138 mmol/L (135-145); Total Protein 5.7 g/dL (6.5-8.0)
[2022-12-17 07:54] LABS: Basophils Absolute Auto 0.1 X10*3/uL (0.0-0.2); Basophils Percent Auto 0.5 % (0-2); Eosinophils Absolute Auto 0.4 X10*3/uL (0.0-0.4); Eosinophils Percent Auto 3.6 % (0-4); Hematocrit 27.2 % (42.0-52.0); Hemoglobin 9.2 g/dl (14.0-18.0); Imm Gran Abs Auto 0.07 X10*3/uL (0.00-0.03); Imm Gran Pct Auto 0.7 % (0.0-0.4); Lymphocytes Absolute Auto 1.7 X10*3/uL (1.2-4.9); Lymphocytes Percent Auto 17.2 % (20-40); Mean Corpuscular HGB Conc 33.8 g/dl (31.0-36.0); Mean Corpuscular Hemoglobin 31.9 pg (27.0-33.0); Mean Corpuscular Volume 94.4 fL (80.0-98.0); Mean Platelet Volume 11.1 fL (9.4-12.4); Monocytes Absolute Auto 0.9 X10*3/uL (0.1-1.2); Monocytes Percent Auto 9.3 % (2-11); Neutrophils Percent Auto 68.7 % (45-73); Platelet Count 189 X10*3/uL (160-400); Red Blood Count 2.88 X10*6/uL (4.60-5.80); Red Cell Distribution Width 13.5 % (11.0-16.0); White Blood Count 10.1 X10*3/uL (4.8-10.8)
--- NOTE | 2022-12-17 08:01 | PC.NURSE ---
Pt noted to have DTI on coccyx with 2 open areas noted on edges and fissure at gluteal crease. Unable to get full assessment as pt did not tolerate due to recent hip fx. foam dsg applied with barrier cream over open areas. Pt turned and repositioned off area. Awaiting air mattress device.
[2022-12-17] MEDS: amLODIPine Besylate 10 MG TABLET PO (08:02)
[2022-12-17] MEDS: Acetaminophen 325 MG TABLET 650 MG PO ×3 (08:03→20:47)
[2022-12-17] MEDS: Brimonidine Tartrate 0.2% Oph 5 ML BOTTLE 1 DROP EYE-BOTH ×2 (08:03→20:50)
[2022-12-17] MEDS: 0.9 % Sodium Chloride Flush 3 ML SYRINGE IVFLUSH ×2 (08:04→14:57)
[2022-12-17] MEDS: Dorzolamide/Timolo 2.23%/0.68% 10 ML DRBTL 1 DROP EYE-BOTH ×2 (08:04→20:50)
[2022-12-17] MEDS: Insulin Lispro 100 UNIT/ML 3 ML VIAL SUBCUT ×4 (08:04→20:48)
--- NOTE | 2022-12-17 10:17 | MHC.CM.PN ---
PT TO BE MEDICALLY CLEARED FOR D/C TO STR AT [facility] PENDING AUTH, [facility] WILL GO FOR AUTH HOWEVER MAY TAKE ADDITIONAL TIME THEY WILL NEED A CARVE OUT FOR ANA, [facility] HAS PREVIOUSLY AGREED TO CARVE OUT, PT WILL HAVE [facility] FOR BLS TRANSPORT.
--- NOTE | 2022-12-17 10:51 | PM.PNNEP ---
Subjective Subjective Date of Service: 12/17/22 Interval history: Events noted; All recent data reviewed Physical Exam Vital Signs: Vital Signs: Last Vital Signs Temp 99.0 F 12/17/22 07:19 Pulse 76 12/17/22 07:19 Resp 20 12/17/22 07:19 BP 161/71 H 12/17/22 07:19 Pulse Ox 95 12/17/22 07:19 O2 Del Method Room Air 12/17/22 07:19 O2 Flow Rate 1.5 12/15/22 04:00 Oxygen Flow Rate 1.5 12/14/22 15:00 BMI result Body Mass Index 32.6 Const: General: no acute distress Eyes: EOM: EOMs intact bilaterally Neck: Neck: Yes supple Resp: Auscultation: diminished lung sounds Cardio: Rate: regular rate GI: Palpation (GI): Soft to palpation Neuro: General: moves all extremities Objective Data Labs 12/17/22 06:14 12/17/22 06:14 Labs: Laboratory Results - last 24 hr 12/10/22 12/16/22 12/16/22 10:00 11:33 16:08 WBC RBC Hgb Hct MCV MCH MCHC RDW Plt Count MPV Immature Gran % (Auto) Neut % (Auto) Lymph % (Auto) [place] % (Auto) Eos % (Auto) Baso % (Auto) Lymph # (Auto) [place] # (Auto) Eos # (Auto) Baso # (Auto) Abs Immat Gran (auto) Absolute Neuts (auto) Absolute Nucleated RBC Nucleated RBC % (auto) Sodium Potassium Chloride Carbon Dioxide Anion Gap BUN Creatinine Estim Creat Clear Calc Estimated GFR POC Glucose 264 H 275 H Random Glucose Fasting Glucose Calcium Total Bilirubin AST ALT Alkaline Phosphatase Total Protein Albumin Blood Type A Positive Antibody Screen NEGATIVE Crossmatch See Detail 12/16/22 12/17/22 12/17/22 20:58 06:14 06:56 WBC 10.1 RBC 2.88 L Hgb 9.2 L Hct 27.2 L MCV 94.4 MCH 31.9 MCHC 33.8 RDW 13.5 Plt Count 189 MPV 11.1 Immature Gran % (Auto) 0.7 H Neut % (Auto) 68.7 Lymph % (Auto) 17.2 L [place] % (Auto) 9.3 Eos % (Auto) 3.6 Baso % (Auto) 0.5 Lymph # (Auto) 1.7 [place] # (Auto) 0.9 Eos # (Auto) 0.4 Baso # (Auto) 0.1 Abs Immat Gran (auto) 0.07 H Absolute Neuts (auto) 7.0 Absolute Nucleated RBC 0.000 Nucleated RBC % (auto) 0.0 Sodium 138 Potassium 3.8 Chloride 104 Carbon Dioxide 21 L Anion Gap 17 BUN 37 H Creatinine 1.18 Estim Creat Clear Calc 54.7 Estimated GFR 60 POC Glucose 295 H 279 H Random Glucose Cancelled Fasting Glucose 280 H Calcium 8.3 L Total Bilirubin 1.1 H AST 28 ALT 24 Alkaline Phosphatase 104 Total Protein 5.7 L Albumin 2.7 L Blood Type Antibody Screen Crossmatch Procedures Date of Service Date of Service: 12/17/22 Assessment & Plan Assessment and plan (1) DEAN (acute kidney injury): Status: Acute Assessment and Plan: 71-year-old man with stage III CKD with a baseline creatinine of 1.3mg/dL has undergone hip surgery and sustained acute kidney injury. Obstruction ruled out Overall hypovolemic DEAN with improved Cr with supportive management. (Hyaline casts and Maglai 26) All in the setting of poor PO with N/V presyncope Hypernatremia improved hold diuretics PATEL ARB avoid NSAIDs; Shall F/U Progress Note: Quality Stroke Does the patient have a stroke diagnosis?: No
[2022-12-17 10:55] LABS: Glucose, Whole Blood 230 mg/dL (60-115)
[2022-12-17 12:00] VITALS: BP 171/74; PULSE 97; RESP 20; TEMP 37.9; O2SAT 95
[2022-12-17] MEDS: Enoxaparin Sodium 40 MG/0.4 ML SYRINGE SUBCUT (12:07)
--- NOTE | 2022-12-17 14:42 | P.DS_ITS ---
DS: Providers Provider Date of admission: 12/08/22 21:16 Primary care physician: Marcia Clements MD Consults: 12/08/22 21:18 Consult to Orthopedics Routine Consulting Provider: [facility] Sur[facility] Reason for consultation: intertrochanteric fracture of the right proximal femur. 12/09/22 08:06 Consult to Cardiology Routine Consulting Provider: [facility] Cardiovascular Services Reason for consultation: preop clearance Has provider been notified: No 12/11/22 11:05 Consult to Nephrology Routine Consulting Provider: Channing Trevino Reason for consultation: dean DS: Diagnosis Discharge Diagnosis (1) DEAN (acute kidney injury): Status: Acute DS: Summary Hospital Course Hospital Course: Date of Service: 12/08/22 Chief Complaint: Fall This is a 77-year-old male with pertinent history of insulin-dependent diabetes mellitus with neuropathy, congestive heart failure with preserved ejection fraction, gastroesophageal reflux disease, coronary artery disease, essential hypertension who presents to the emergency department for evaluation after a fall. Patient states he went to [employer] and when he 1st started walking from a sitting position, he felt dizzy and lightheaded and the next thing he knew he was on the floor. Patient fell on his right side. He has been complaining of right-sided pain since the fall which is worse with movement. Denies chest discomfort or palpitations prior to the fall. Denies loss of consciousness. No rhythmic jerking movement of extremities. No fever, chills, shortness of breath, abdominal pain, changes in urinary or bowel habits. In the emergency department, imaging with community intertrochanteric fracture of the right proximal femur. Hospital course 77-year-old male with pertinent history of insulin-dependent diabetes mellitus with neuropathy, congestive heart failure with preserved ejection fraction, gastro esophageal reflux disease, coronary artery disease, essential hypertension who presents to the emergency department for evaluation after a fall. 1.Inter trochanteric fracture of right femur -POD 6.pain control adequate at rest -further plans as per Ortho 2.DEAN on chronic kidney disease stage 3 , likely hypovolemic DEAN due to poor by mouth intake, nausea and vomiting will continue to hold arbs, and Lasix, nephrotoxins no NSAIDs -resolved -follow BMP 3.Urinary retention -multifactorial including anesthesia/opiates/BPH -continue alpha blockade -DC Bliss catheter will give voiding trial 4.Acute on chronic anemia -hemoglobin stable, status post 2 units of blood transfusion, hematocrit stable 5.DMII -acceptable control continue Lantus 14 units and lispro correctional scale -adjust as indicated 6. Acute hypernatremia sodium improving, continue IV fluids, hold diuretics follow BMP 7. Hypertension elevated blood pressures since antihypertensive on hold will resume Norvasc 8. Early pneumonia/acute hypoxia 5 will DC IV doxycycline day 5, oxygen improved 94% on room air Time Spent with Patient Time attestation: Total time managing care of this patient today ____ minutes. Physical Exam Vital Signs: Vital Signs: Last Vital Signs Temp 100.3 F 12/17/22 12:00 Pulse 97 12/17/22 12:00 Resp 20 12/17/22 12:00 BP 171/74 H 12/17/22 12:00 Pulse Ox 95 12/17/22 12:00 O2 Del Method Room Air 12/17/22 12:00 O2 Flow Rate 1.5 12/15/22 04:00 Oxygen Flow Rate 1.5 12/14/22 15:00 BMI result Body Mass Index 32.6 Const: Other: General awake alert, lying in bed , in no acute distress Neck supple, no JVD CVS Regular rate and rhythm Lungs Regular breath sounds bilaterally, no wheezing or crackles appreciated Abdomen soft, non tender,bs +, no guarding, no rigidity Neuro awake alert x3, no focal motor deficit Musculoskeletal: Right hip dressing in place, right hip pain with movement Psych: Appropriate affect No pedal edema DS: Data Data Completed and Pending Labs on day of discharge: Laboratory Results - last 24 hr 12/16/22 12/16/22 12/17/22 16:08 20:58 06:14 WBC 10.1 RBC 2.88 L Hgb 9.2 L Hct 27.2 L MCV 94.4 MCH 31.9 MCHC 33.8 RDW 13.5 Plt Count 189 MPV 11.1 Immature Gran % (Auto) 0.7 H Neut % (Auto) 68.7 Lymph % (Auto) 17.2 L [place] % (Auto) 9.3 Eos % (Auto) 3.6 Baso % (Auto) 0.5 Lymph # (Auto) 1.7 [place] # (Auto) 0.9 Eos # (Auto) 0.4 Baso # (Auto) 0.1 Abs Immat Gran (auto) 0.07 H Absolute Neuts (auto) 7.0 Absolute Nucleated RBC 0.000 Nucleated RBC % (auto) 0.0 Sodium 138 Potassium 3.8 Chloride 104 Carbon Dioxide 21 L Anion Gap 17 BUN 37 H Creatinine 1.18 Estim Creat Clear Calc 54.7 Estimated GFR 60 POC Glucose 275 H 295 H Random Glucose Cancelled Fasting Glucose 280 H Calcium 8.3 L Total Bilirubin 1.1 H AST 28 ALT 24 Alkaline Phosphatase 104 Total Protein 5.7 L Albumin 2.7 L 12/17/22 12/17/22 06:56 10:51 WBC RBC Hgb Hct MCV MCH MCHC RDW Plt Count MPV Immature Gran % (Auto) Neut % (Auto) Lymph % (Auto) [place] % (Auto) Eos % (Auto) Baso % (Auto) Lymph # (Auto) [place] # (Auto) Eos # (Auto) Baso # (Auto) Abs Immat Gran (auto) Absolute Neuts (auto) Absolute Nucleated RBC Nucleated RBC % (auto) Sodium Potassium Chloride Carbon Dioxide Anion Gap BUN Creatinine Estim Creat Clear Calc Estimated GFR POC Glucose 279 H 230 H Random Glucose Fasting Glucose Calcium Total Bilirubin AST ALT Alkaline Phosphatase Total Protein Albumin Discharge Plan Discharge Anticipated Discharge Date/Time: 12/17/22 12:22 Patient Disposition: Xfer SNF Discharge Diagnosis: Intertrochanteric fracture of right femur Acute on creatinine kidney disease stage 3 Acute on chronic anemia Acute hypernatremia Referrals: [facility] [Outside] - 1 Day (SHORT TERM REHAB) Ria Abel PA-C [Physician Direct Service Professional] - 12/26/22 1:15 pm Po,Marcia Overton MD [Primary Care Provider] - 1 Week Discharge Medications: New oxycodone 5 mg Tablet 5 mg PO Q6H PRN (Reason: Pain, Moderate(Pain Scale 4-6)) Qty: 14 0RF Rx Instructions: Partial Fill upon patient request. enoxaparin 40 mg/0.4 mL Syringe 40 mg subcut Q24H 42 Days Qty: 16.8 0RF polyethylene glycol 3350 17 gram Powder In Packet 17 g PO DAILY Qty: 30 0RF acetaminophen 325 mg Tablet 650 mg PO TID Qty: 60 0RF docusate sodium 100 mg Capsule 200 mg PO DAILY Qty: 30 0RF Continued (DME) pen needle, diabetic [BD Martina 2nd Gen Pen Needle] 32 gauge x 5/32 needle See Rx Instructions .MEDSUPPLY Qty: 400 4RF Rx Instructions: 5 times a day (DME) HOSPITAL BED See Rx Instructions .Route .MEDSUPPLY Qty: 1 0RF Rx Instructions: As directed acetaminophen [Tylenol Extra Strength] 500 mg tablet 500 mg PO Q6H PRN (Reason: pain or fever) Qty: 20 0RF dorzolamide-timolol 22.3-6.8 mg/mL drops 1 drp ophthalmic (eye) BID Tremfya 100 mg/mL auto-injector subcut multivitamin Tablet 1 tab PO BEDTIME ascorbic acid (vitamin C) 500 mg Tablet 500 mg PO BEDTIME furosemide 20 mg tablet 20 mg PO BEDTIME brimonidine 0.15 % drops 1 drp ophthalmic (eye) BID aspirin 81 mg tablet,delayed release (DR/EC) 81 mg PO BEDTIME amlodipine 10 mg tablet 10 mg PO BEDTIME losartan 25 mg tablet 25 mg PO BEDTIME metoprolol succinate 25 mg tablet extended release 24 hr 25 mg PO BEDTIME insulin lispro [Humalog KwikPen Insulin] 100 unit/mL insulin pen 10 unit subcut TID Rx Instructions: before meals as directed rosuvastatin 40 mg tablet 40 mg PO BEDTIME cholecalciferol (vitamin D3) 25 mcg (1,000 unit) tablet 25 mcg PO BEDTIME insulin degludec 100 unit/mL (3 mL) insulin pen 20 unit subcut BEDTIME Trulicity 1.5 mg/0.5 mL pen injector 1.5 mg subcut PONCE (DME) FreeStyle Lite Strips Strip See Rx Instructions .ROUTE .MEDSUPPLY Qty: 150 11RF Rx Instructions: As directed four times a day (DME) 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 meter [FreeStyle [place] Lite] Kit See Rx Instructions .ROUTE .MEDSUPPLY Qty: 1 0RF Rx Instructions: As directed (DME) lancets [FreeStyle Lancets] 28 gauge misc See Rx Instructions .ROUTE .MEDSUPPLY Qty: 100 3RF Rx Instructions: As directed check BS QD gabapentin 300 mg capsule 300 mg PO BEDTIME Qty: 90 2RF Diet: Diabetic diet Activity on Discharge: As tolerated Stand Alone Forms: Patient Portal Discharge page Activity Restrictions/Additional Instructions: Gait training, strengthening, ADLs Continue lovenox for dvt ppx x 6 weeks Keep dressing clean, dry and intact-no showering or tub baths Follow up with Orthopedics in 2 weeks Health Concerns: Diabetes mellitus follow blood sugars closely resume home insulin Hypertension Aortic stenosis Plan of Treatment: Out patient follow-up with primary care physician and Cardiology call for appointment. Assessment: As above
[2022-12-17] MEDS: Losartan Potassium 25 MG TABLET PO (14:55)
[2022-12-17 15:00] VITALS: O2SAT 97
[2022-12-17 15:41] VITALS: BP 163/76; PULSE 76; RESP 18; TEMP 36.3; O2SAT 98
--- NOTE | 2022-12-17 15:56 | P.PNIM_ITS ---
Subjective Subjective Date of Service: 12/17/22 Interval History: Complaining of right hip pain only with activity otherwise denies pain at rest, tolerating diet no nausea no vomiting no abdominal pain, no lightheadedness, no dizziness participating in physical therapy. Review of Systems All other system reviewed and negative. Physical Exam 2 Vital Signs: Vital Signs: Last Vital Signs Temp 97.4 F 12/17/22 15:41 Pulse 76 12/17/22 15:41 Resp 18 12/17/22 15:41 BP 163/76 H 12/17/22 15:41 Pulse Ox 98 12/17/22 15:41 O2 Del Method Room Air 12/17/22 15:41 O2 Flow Rate 1.5 12/15/22 04:00 Oxygen Flow Rate 1.5 12/14/22 15:00 BMI result Body Mass Index 32.6 Const: Other: General awake alert, lying in bed , in no acute distress Neck supple, no JVD CVS Regular rate and rhythm Lungs Regular breath sounds bilaterally, no wheezing or crackles appreciated Abdomen soft, non tender,bs +, no guarding, no rigidity Neuro awake alert x3, no focal motor deficit Musculoskeletal: Right hip pain with movement Psych: Appropriate affect No pedal edema Objective Data Active Medications Acetaminophen (Acetaminophen 325 Mg Tablet) 650 mg PO Q6H PRN PRN Reason: Pain, Mild (Pain Scale 1-3) Last Admin: 12/11/22 10:28 Dose: 650 mg Documented By: MELQUIADES Acetaminophen (Acetaminophen 325 Mg Tablet) 650 mg PO TID [facility] Last Admin: 12/17/22 14:55 Dose: 650 mg Documented By: JOSE Amlodipine Besylate (Amlodipine Besylate 10 Mg Tablet) 10 mg PO DAILY [facility]; Protocol Last Admin: 12/17/22 08:02 Dose: 10 mg Documented By: JOSE Atorvastatin Calcium (Atorvastatin Calcium 40 Mg Tablet) 40 mg PO BEDTIME [facility] Last Admin: 12/16/22 20:11 Dose: 40 mg Documented By: LISA Brimonidine Tartrate (Brimonidine Tartrate 0.2% Oph 5 Ml Bottle) 1 drop EYE- BOTH BID [facility] Last Admin: 12/17/22 08:03 Dose: 1 drop Documented By: JOSE Dextrose (Dextrose 50 % 25 Gm/50 Ml Syringe) 25 gm IVPUSH Q15M PRN; Protocol PRN Reason: per Hypoglycemia Standing Ord. Docusate Sodium (Docusate Sodium 100 Mg Capsule) 200 mg PO DAILY [facility] Last Admin: 12/17/22 08:04 Dose: Not Given Documented By: JOSE Non-Admin Reason: Patient Refused Dorzolamide/Timolol (Dorzolamide/Timolo 2.23%/0.68% 10 Ml Drbtl) 1 drop EYE- BOTH BID [facility] Last Admin: 12/17/22 08:04 Dose: 1 drop Documented By: JOSE Enoxaparin Sodium (Enoxaparin Sodium 40 Mg/0.4 Ml Syringe) 40 mg SUBCUT Q24H [facility] Last Admin: 12/17/22 12:07 Dose: 40 mg Documented By: JOSE Gabapentin (Gabapentin 300 Mg Capsule) 300 mg PO BEDTIME [facility] Last Admin: 12/16/22 20:11 Dose: 300 mg Documented By: ILSA Glucose (Glucose Gel 15 Gm Gel..Gram.) 15 gm PO Q15M PRN; Protocol PRN Reason: per Hypoglycemia Standing Ord. Insulin Glargine (Insulin Glargine,Hum.Rec.Anlog 100 Unit/Ml 10 Ml Vial) 14 unit SUBCUT BEDTIME [facility] Last Admin: 12/16/22 20:14 Dose: 14 unit Documented By: LISA Insulin Human Lispro (Insulin Lispro 100 Unit/Ml 3 Ml Vial) 0 unit SUBCUT QIDACHS [facility]; Protocol Last Admin: 12/17/22 12:06 Dose: 6 unit Documented By: JOSE Losartan Potassium (Losartan Potassium 25 Mg Tablet) 25 mg PO DAILY [facility]; Protocol Last Admin: 12/17/22 14:55 Dose: 25 mg Documented By: JOSE Melatonin (Melatonin 3 Mg Tablet) 6 mg PO BEDTIME PRN PRN Reason: Insomnia Metoprolol Succinate (Metoprolol Succinate Er 25 Mg Tab.Er.24h) 25 mg PO BEDTIME [facility]; Protocol Last Admin: 12/16/22 20:12 Dose: 25 mg Documented By: LISA Ondansetron HCl (Ondansetron Hcl 4 Mg/2 Ml Vial) 4 mg IVPUSH Q8H PRN PRN Reason: Nausea and Vomiting Last Admin: 12/14/22 13:22 Dose: 4 mg Documented By: MAKENNA Oxycodone HCl (Oxycodone Hcl Immed Release 5 Mg Tablet) 5 mg PO Q6H PRN PRN Reason: Pain, Moderate(Pain Scale 4-6) Last Admin: 12/16/22 15:14 Dose: 5 mg Documented By: JOSE Polyethylene Glycol (Polyethylene Glycol 3350 17 Gm Powd.Pack) 17 gm PO DAILY [facility] Last Admin: 12/17/22 08:04 Dose: Not Given Documented By: JOSE Non-Admin Reason: Patient Refused Sodium Chloride (0.9 % Sodium Chloride Flush 3 Ml Syringe) 3 ml IVFLUSH QSHIFT [facility] Last Admin: 12/17/22 14:57 Dose: 3 ml Documented By: JOSE Tamsulosin HCl (Tamsulosin Hcl 0.4 Mg Capsule) 0.4 mg PO BEDTIME [facility] Last Admin: 12/16/22 20:12 Dose: 0.4 mg Documented By: LISA Labs 12/17/22 06:14 12/17/22 06:14 Labs: Laboratory Results - last 24 hr 12/16/22 12/16/22 12/17/22 16:08 20:58 06:14 MCV 94.4 MCH 31.9 MCHC 33.8 RDW 13.5 Plt Count 189 MPV 11.1 Immature Gran % (Auto) 0.7 H Neut % (Auto) 68.7 Lymph % (Auto) 17.2 L Bay % (Auto) 9.3 Eos % (Auto) 3.6 Baso % (Auto) 0.5 Lymph # (Auto) 1.7 Bay # (Auto) 0.9 Eos # (Auto) 0.4 Baso # (Auto) 0.1 Abs Immat Gran (auto) 0.07 H Absolute Neuts (auto) 7.0 Absolute Nucleated RBC 0.000 Nucleated RBC % (auto) 0.0 Anion Gap 17 Estim Creat Clear Calc 54.7 Estimated GFR 60 POC Glucose 275 H 295 H Random Glucose Cancelled Fasting Glucose 280 H Calcium 8.3 L Total Bilirubin 1.1 H AST 28 ALT 24 Alkaline Phosphatase 104 Total Protein 5.7 L Albumin 2.7 L 12/17/22 12/17/22 06:56 10:51 MCV MCH MCHC RDW Plt Count MPV Immature Gran % (Auto) Neut % (Auto) Lymph % (Auto) Bay % (Auto) Eos % (Auto) Baso % (Auto) Lymph # (Auto) Bay # (Auto) Eos # (Auto) Baso # (Auto) Abs Immat Gran (auto) Absolute Neuts (auto) Absolute Nucleated RBC Nucleated RBC % (auto) Anion Gap Estim Creat Clear Calc Estimated GFR POC Glucose 279 H 230 H Random Glucose Fasting Glucose Calcium Total Bilirubin AST ALT Alkaline Phosphatase Total Protein Albumin Assessment and Plan (1) Intertrochanteric fracture of right femur: Status: Acute (2) DEAN (acute kidney injury): Status: Acute Plan 77-year-old male with pertinent history of insulin-dependent diabetes mellitus with neuropathy, congestive heart failure with preserved ejection fraction, gastro esophageal reflux disease, coronary artery disease, essential hypertension who presents to the emergency department for evaluation after a fall. 1.Inter trochanteric fracture of right femur -POD 7.pain control adequate at rest, continue physical therapy 2.DEAN on chronic kidney disease stage 3 , likely hypovolemic DEAN due to poor by mouth intake, nausea and vomiting DEAN resolved status post IV fluid will resume home dose of losartan and Lasix 3.Urinary retention -multifactorial including anesthesia/opiates/BPH, Bliss catheter removed no voiding issues 4.Acute on chronic anemia -hemoglobin stable, status post 2 units of blood transfusion 5.DMII -acceptable control continue Lantus 14 units and lispro correctional scale,adjust as indicated 6. Acute hypernatremia resolved DC IV fluids 7. Hypertension elevated blood pressures continue Norvasc , metoprolol, resume losartan 8. Early pneumonia/acute hypoxia s/p doxycycline day 5, oxygen improved 94% on room air Lovenox Full code Will need continued inpatient hospital stay, for intratrochanteric right femur fracture status post surgery continue pain management electrolyte monitoring and blood pressure medication adjustment. Time Spent With Patient Time: Total time managing care of this patient today ____ minutes. Quality Stroke Does the patient have a stroke diagnosis?: No VTE Prior VTE?: No VTE Risk Level:: Medical - moderate - high VTE Device Contraindication: Treatment Not Indicated VTE Drug Contraindication: Treatment Not Indicated
[2022-12-17 16:37] LABS: Glucose, Whole Blood 158 mg/dL (60-115)
[2022-12-17 20:00] VITALS: BP 186/68; PULSE 68; RESP 18; TEMP 36.9; O2SAT 97
[2022-12-17 20:41] LABS: Glucose, Whole Blood 186 mg/dL (60-115)
[2022-12-17] MEDS: Gabapentin 300 MG CAPSULE PO (20:46)
[2022-12-17] MEDS: Tamsulosin HCL 0.4 MG CAPSULE PO (20:46)
[2022-12-17] MEDS: Melatonin 3 MG TABLET 6 MG PO (20:47)
[2022-12-17] MEDS: Metoprolol Succinate ER 25 MG TAB.ER.24H PO (20:47)
[2022-12-17] MEDS: oxyCODONE HCl Immed Release 5 MG TABLET PO (20:47)
[2022-12-17] MEDS: Insulin Glargine,Hum.rec.anlog 100 UNIT/ML 10 ML VIAL 14 UNIT SUBCUT (20:47)
[2022-12-17] MEDS: Atorvastatin Calcium 40 MG TABLET PO (20:48)
[2022-12-18] VITALS (8 sets, daily range): BP systolic 120–150; BP diastolic 50–67; PULSE 62–87; RESP 16–20; TEMP 36.1–37; O2SAT 92–99; BMI 32.6
[2022-12-18] MEDS: oxyCODONE HCl Immed Release 5 MG TABLET PO (06:15)
[2022-12-18 07:01] LABS: Glucose, Whole Blood 191 mg/dL (60-115)
[2022-12-18] MEDS: ondansetron HCL 4 MG/2 ML VIAL IVPUSH (07:26)
[2022-12-18] MEDS: Dorzolamide/Timolo 2.23%/0.68% 10 ML DRBTL 1 DROP EYE-BOTH ×2 (08:22→21:14)
[2022-12-18] MEDS: Brimonidine Tartrate 0.2% Oph 5 ML BOTTLE 1 DROP EYE-BOTH ×2 (08:22→21:14)
[2022-12-18] MEDS: Insulin Lispro 100 UNIT/ML 3 ML VIAL SUBCUT ×4 (08:22→21:14)
[2022-12-18] MEDS: 0.9 % Sodium Chloride Flush 3 ML SYRINGE IVFLUSH ×2 (08:25→17:05)
[2022-12-18] MEDS: Acetaminophen 325 MG TABLET 650 MG PO ×3 (08:25→21:15)
[2022-12-18] MEDS: Losartan Potassium 25 MG TABLET PO (08:26)
[2022-12-18] MEDS: amLODIPine Besylate 10 MG TABLET PO (08:27)
--- NOTE | 2022-12-18 10:50 | P.PNNP_ITS ---
Subjective Subjective Date of Service: 12/18/22 Interval history: Events noted. All recent data reviewed. Physical Exam 2 Vital Signs: Vital Signs: Last Vital Signs Temp 98.6 F 12/18/22 07:16 Pulse 85 12/18/22 07:16 Resp 20 12/18/22 07:16 BP 150/60 H 12/18/22 07:16 Pulse Ox 94 12/18/22 07:16 O2 Del Method Room Air 12/18/22 07:16 O2 Flow Rate 1.5 12/15/22 04:00 Oxygen Flow Rate 1.5 12/14/22 15:00 BMI result Body Mass Index 32.6 Const: General: no acute distress Eyes: EOM: EOMs intact bilaterally Neck: Neck: Yes supple Resp: Auscultation: diminished lung sounds Cardio: Rate: regular rate GI: Palpation (GI): Soft to palpation Neuro: General: moves all extremities Objective Data Labs 12/17/22 06:14 12/17/22 06:14 Labs: Laboratory Results - last 24 hr 12/17/22 12/17/22 12/17/22 10:51 16:34 20:37 POC Glucose 230 H 158 H 186 H 12/18/22 06:57 POC Glucose 191 H Procedures Date of Service Date of Service: 12/18/22 Assessment & Plan Assessment and plan (1) DEAN (acute kidney injury): Status: Acute Assessment and Plan: 71-year-old man with stage III CKD with a baseline creatinine of 1.3mg/dL has undergone hip surgery and sustained acute kidney injury. Obstruction ruled out Overall hypovolemic DEAN with improved Cr with supportive management. (Hyaline casts and Magali 26) All in the setting of poor PO with N/V presyncope Hypernatremia improved Continue current supportive management Progress Note: Quality Stroke Does the patient have a stroke diagnosis?: No
[2022-12-18 11:01] LABS: Glucose, Whole Blood 194 mg/dL (60-115)
[2022-12-18] MEDS: Enoxaparin Sodium 40 MG/0.4 ML SYRINGE SUBCUT (11:53)
--- NOTE | 2022-12-18 15:21 | MHC.CM.PN ---
Pt remains medically cleared for D/C to STR at [facility], pending insurance auth/carve out (for [employer]). CM will continue to follow.
[2022-12-18 16:06] LABS: Glucose, Whole Blood 206 mg/dL (60-115)
--- NOTE | 2022-12-18 16:34 | P.PNIM_ITS ---
Subjective Subjective Date of Service: 12/18/22 Interval History: Noted to have 2 episodes of vomiting this morning since took oxycodone empty stomach prior to breakfast, denies abdominal pain, no lightheadedness, no dizziness, later was able to tolerate diet, denies shortness of breath, no lightheadedness, no dizziness, no chest pain, no palpitations no other acute issues overnight. Review of Systems All other system reviewed and negative Physical Exam 2 Vital Signs: Vital Signs: Last Vital Signs Temp 97.0 F 12/18/22 15:20 Pulse 71 12/18/22 15:20 Resp 20 12/18/22 15:20 BP 144/59 H 12/18/22 15:20 Pulse Ox 95 12/18/22 15:20 O2 Del Method Room Air 12/18/22 15:20 O2 Flow Rate 1.5 12/15/22 04:00 Oxygen Flow Rate 1.5 12/14/22 15:00 BMI result Body Mass Index 32.6 Const: Other: General awake alert, lying in bed , in no acute distress Neck supple, no JVD CVS Regular rate and rhythm Lungs Regular breath sounds bilaterally, no wheezing or crackles appreciated Abdomen soft, non tender,bs +, no guarding, no rigidity Neuro awake alert x3, no focal motor deficit Musculoskeletal: Right hip pain with movement Psych: Appropriate affect No pedal edema Objective Data Active Medications Acetaminophen (Acetaminophen 325 Mg Tablet) 650 mg PO Q6H PRN PRN Reason: Pain, Mild (Pain Scale 1-3) Last Admin: 12/11/22 10:28 Dose: 650 mg Documented By: MELQUIADES Acetaminophen (Acetaminophen 325 Mg Tablet) 650 mg PO TID [facility] Last Admin: 12/18/22 08:25 Dose: 650 mg Documented By: JOSE Amlodipine Besylate (Amlodipine Besylate 10 Mg Tablet) 10 mg PO DAILY [facility]; Protocol Last Admin: 12/18/22 08:27 Dose: 10 mg Documented By: JOSE Atorvastatin Calcium (Atorvastatin Calcium 40 Mg Tablet) 40 mg PO BEDTIME [facility] Last Admin: 12/17/22 20:48 Dose: 40 mg Documented By: COURTNEY Brimonidine Tartrate (Brimonidine Tartrate 0.2% Oph 5 Ml Bottle) 1 drop EYE- BOTH BID [facility] Last Admin: 12/18/22 08:22 Dose: 1 drop Documented By: JOSE Dextrose (Dextrose 50 % 25 Gm/50 Ml Syringe) 25 gm IVPUSH Q15M PRN; Protocol PRN Reason: per Hypoglycemia Standing Ord. Docusate Sodium (Docusate Sodium 100 Mg Capsule) 200 mg PO DAILY [facility] Last Admin: 12/18/22 08:26 Dose: Not Given Documented By: JOSE Non-Admin Reason: Patient Refused Dorzolamide/Timolol (Dorzolamide/Timolo 2.23%/0.68% 10 Ml Drbtl) 1 drop EYE- BOTH BID [facility] Last Admin: 12/18/22 08:22 Dose: 1 drop Documented By: JOSE Enoxaparin Sodium (Enoxaparin Sodium 40 Mg/0.4 Ml Syringe) 40 mg SUBCUT Q24H [facility] Last Admin: 12/18/22 11:53 Dose: 40 mg Documented By: JOSE Gabapentin (Gabapentin 300 Mg Capsule) 300 mg PO BEDTIME [facility] Last Admin: 12/17/22 20:46 Dose: 300 mg Documented By: COURTNEY Glucose (Glucose Gel 15 Gm Gel..Gram.) 15 gm PO Q15M PRN; Protocol PRN Reason: per Hypoglycemia Standing Ord. Insulin Glargine (Insulin Glargine,Hum.Rec.Anlog 100 Unit/Ml 10 Ml Vial) 14 unit SUBCUT BEDTIME [facility] Last Admin: 12/17/22 20:47 Dose: 14 unit Documented By: COURTNEY Insulin Human Lispro (Insulin Lispro 100 Unit/Ml 3 Ml Vial) 0 unit SUBCUT QIDACHS [facility]; Protocol Last Admin: 12/18/22 11:53 Dose: 4 unit Documented By: JOSE Losartan Potassium (Losartan Potassium 25 Mg Tablet) 25 mg PO DAILY [facility]; Protocol Last Admin: 12/18/22 08:26 Dose: 25 mg Documented By: JOSE Melatonin (Melatonin 3 Mg Tablet) 6 mg PO BEDTIME PRN PRN Reason: Insomnia Last Admin: 12/17/22 20:47 Dose: 6 mg Documented By: COURTNEY Metoprolol Succinate (Metoprolol Succinate Er 25 Mg Tab.Er.24h) 25 mg PO BEDTIME [facility]; Protocol Last Admin: 12/17/22 20:47 Dose: 25 mg Documented By: COURTNEY Ondansetron HCl (Ondansetron Hcl 4 Mg/2 Ml Vial) 4 mg IVPUSH Q8H PRN PRN Reason: Nausea and Vomiting Last Admin: 12/18/22 07:26 Dose: 4 mg Documented By: JOSE Oxycodone HCl (Oxycodone Hcl Immed Release 5 Mg Tablet) 5 mg PO Q6H PRN PRN Reason: Pain, Moderate(Pain Scale 4-6) Last Admin: 12/18/22 06:15 Dose: 5 mg Documented By: COURTNEY Polyethylene Glycol (Polyethylene Glycol 3350 17 Gm Powd.Pack) 17 gm PO DAILY [facility] Last Admin: 12/18/22 08:26 Dose: Not Given Documented By: JOSE Non-Admin Reason: Patient Refused Sodium Chloride (0.9 % Sodium Chloride Flush 3 Ml Syringe) 3 ml IVFLUSH QSHIFT [facility] Last Admin: 12/18/22 08:25 Dose: 3 ml Documented By: JOSE Tamsulosin HCl (Tamsulosin Hcl 0.4 Mg Capsule) 0.4 mg PO BEDTIME [facility] Last Admin: 12/17/22 20:46 Dose: 0.4 mg Documented By: COURTNEY Labs 12/17/22 06:14 12/17/22 06:14 Labs: Laboratory Results - last 24 hr 12/17/22 12/17/22 12/18/22 16:34 20:37 06:57 POC Glucose 158 H 186 H 191 H 12/18/22 12/18/22 10:56 15:59 POC Glucose 194 H 206 H Assessment and Plan (1) Intertrochanteric fracture of right femur: Status: Acute (2) DEAN (acute kidney injury): Status: Acute Plan 77-year-old male with pertinent history of insulin-dependent diabetes mellitus with neuropathy, congestive heart failure with preserved ejection fraction, gastro esophageal reflux disease, coronary artery disease, essential hypertension who presents to the emergency department for evaluation after a fall. 1.Inter trochanteric fracture of right femur -POD 8,pain control adequate at rest, only with activity recommend to minimize use of narcotics due to side effects, continue physical therapy 2.DEAN on chronic kidney disease stage 3 , likely hypovolemic DEAN due to poor by mouth intake, nausea and vomiting DEAN resolved status post IV fluid , home dose of losartan and Lasix restarted on 12/17 3.Urinary retention -multifactorial including anesthesia/opiates/BPH, Bliss catheter removed ,no voiding issues continue Flomax 4.Acute on chronic anemia -hemoglobin stable, status post 2 units of blood transfusion 5.DMII -elevated blood sugars will increase dose of Lantus to 18 units and lispro correctional scale,adjust as indicated 6. Acute hypernatremia resolved DC IV fluids. 7. Hypertension better blood pressure control, continue Norvasc , metoprolol, and losartan . 8. Early pneumonia/acute hypoxia s/p doxycycline day 5, oxygen improved 94% on room air Lovenox Full code Disposition waiting for Auth Will need continued inpatient hospital stay, for intratrochanteric right femur fracture status post surgery continue pain management electrolyte monitoring and blood pressure medication adjustment. Time Spent With Patient Time: Total time managing care of this patient today ____ minutes. Quality Stroke Does the patient have a stroke diagnosis?: No VTE Prior VTE?: No VTE Risk Level:: Medical - moderate - high VTE Device Contraindication: Treatment Not Indicated VTE Drug Contraindication: Treatment Not Indicated
[2022-12-18 19:55] LABS: Glucose, Whole Blood 175 mg/dL (60-115)
[2022-12-18] MEDS: Insulin Glargine,Hum.rec.anlog 100 UNIT/ML 10 ML VIAL 18 UNIT SUBCUT (21:15)
[2022-12-18] MEDS: Gabapentin 300 MG CAPSULE PO (21:16)
[2022-12-18] MEDS: Tamsulosin HCL 0.4 MG CAPSULE PO (21:16)
[2022-12-18] MEDS: Metoprolol Succinate ER 25 MG TAB.ER.24H PO (21:16)
[2022-12-18] MEDS: Atorvastatin Calcium 40 MG TABLET PO (21:16)
--- NOTE | 2022-12-18 23:21 | PC.NURSE ---
Cardiac rhythm SR with PVC'S and PAC's , had 7 beats of Vtach now , Dr Jones was notified and blood work was ordered for BMP and Magnesium
[2022-12-19] VITALS (7 sets, daily range): BP systolic 133–156; BP diastolic 51–68; PULSE 65–75; RESP 18–20; TEMP 36.3–36.8; O2SAT 91–98
[2022-12-19 00:14] LABS: Anion Gap 11 (12-20); Blood Urea Nitrogen 35 mg/dL (9-16); Calcium 8.4 mg/dL (8.4-10.2); Carbon Dioxide 26 mmol/L (22-29); Chloride 109 mmol/L (96-108); Creatinine Clr Calc Pharmacy 56.1; Estimated Glomerular Filt Rate > 60; Glucose Random 158 mg/dL (60-115); Magnesium 1.9 mg/dL (1.6-2.6); Potassium 3.4 mmol/L (3.3-5.1); Sodium 143 mmol/L (135-145)
[2022-12-19] MEDS: Potassium Chloride Packet 20 MEQ PACKET 40 MEQ PO ×2 (01:21→02:53)
[2022-12-19] MEDS: Magnesium Sulfate/H2O 2 GM/50 ML PIGGYBACK IV (01:21)
[2022-12-19] MEDS: 0.9 % Sodium Chloride Flush 3 ML SYRINGE IVFLUSH ×4 (01:28→22:39)
--- NOTE | 2022-12-19 04:24 | HO.SKINPHOTO ---
Location: Right heel Category: DTI Stage: Length: 4cm Width: 3cm Location: Category: Stage: Length: Width: Depth: cm Location: Category: Stage: Length: Width: Depth: cm Location: Category: Stage: Length: Width: Depth: cm Location: Category: Stage: Length: Width: Depth: cm Location: Category: Stage: Length: Width: Depth: cm
[2022-12-19 07:19] LABS: Glucose, Whole Blood 166 mg/dL (60-115)
[2022-12-19] MEDS: Brimonidine Tartrate 0.2% Oph 5 ML BOTTLE 1 DROP EYE-BOTH ×2 (08:09→22:39)
[2022-12-19] MEDS: Dorzolamide/Timolo 2.23%/0.68% 10 ML DRBTL 1 DROP EYE-BOTH ×2 (08:09→22:38)
[2022-12-19] MEDS: amLODIPine Besylate 10 MG TABLET PO (08:10)
[2022-12-19] MEDS: Docusate Sodium 100 MG CAPSULE 200 MG PO (08:10)
[2022-12-19] MEDS: polyethylene glycoL 3350 17 GM POWD.PACK PO (08:10)
[2022-12-19] MEDS: Insulin Lispro 100 UNIT/ML 3 ML VIAL SUBCUT ×4 (08:10→22:34)
[2022-12-19] MEDS: Losartan Potassium 25 MG TABLET PO (08:10)
[2022-12-19] MEDS: Acetaminophen 325 MG TABLET 650 MG PO ×3 (08:10→22:33)
--- NOTE | 2022-12-19 11:04 | P.PNNP_ITS ---
Subjective Subjective Date of Service: 12/19/22 Interval history: Events noted; All recent data reviewed Physical Exam 2 Vital Signs: Vital Signs: Last Vital Signs Temp 97.6 F 12/19/22 07:48 Pulse 74 12/19/22 07:48 Resp 18 12/19/22 07:48 BP 155/68 H 12/19/22 07:48 Pulse Ox 95 12/19/22 07:48 O2 Del Method Room Air 12/19/22 07:48 O2 Flow Rate 1.5 12/15/22 04:00 Oxygen Flow Rate 1.5 12/14/22 15:00 BMI result Body Mass Index 32.6 Const: General: no acute distress Eyes: EOM: EOMs intact bilaterally Resp: Auscultation: diminished lung sounds Cardio: Rate: regular rate GI: Palpation (GI): Soft to palpation Neuro: General: moves all extremities Objective Data Labs 12/17/22 06:14 12/18/22 23:33 Labs: Laboratory Results - last 24 hr 12/18/22 12/18/22 12/18/22 15:59 19:52 23:33 Hold Purple Top Sodium 143 Potassium 3.4 Chloride 109 H Carbon Dioxide 26 Anion Gap 11 L BUN 35 H Creatinine 1.15 Estim Creat Clear Calc 56.1 Estimated GFR > 60 POC Glucose 206 H 175 H Random Glucose 158 H Calcium 8.4 Magnesium 1.9 12/19/22 12/19/22 07:09 Unknown Hold Purple Top SEE NOTE Sodium Potassium Chloride Carbon Dioxide Anion Gap BUN Creatinine Estim Creat Clear Calc Estimated GFR POC Glucose 166 H Random Glucose Calcium Magnesium Procedures Date of Service Date of Service: 12/19/22 Assessment & Plan Assessment and plan (1) DEAN (acute kidney injury): Status: Acute Assessment and Plan: 71-year-old man with stage III CKD with a baseline creatinine of 1.3mg/dL has undergone hip surgery and sustained acute kidney injury. Obstruction ruled out Overall hypovolemic DEAN with improved Cr with supportive management. (Hyaline casts and Magali 26) All in the setting of poor PO with N/V presyncope Continue current supportive management Progress Note: Quality Stroke Does the patient have a stroke diagnosis?: No
[2022-12-19 11:17] LABS: Glucose, Whole Blood 202 mg/dL (60-115)
[2022-12-19] MEDS: Enoxaparin Sodium 40 MG/0.4 ML SYRINGE SUBCUT (12:00)
--- NOTE | 2022-12-19 12:25 | HO.PM.IMPN ---
Subjective Subjective Date of Service: 12/19/22 Interval History: seen and examined this morning follow up for hip surgery had Vtach x2 overnight was asymptomatic, received mag and k supplementation feeling well this morning, no specific complaints Review of Systems Review of Systems: Yes all other systems are reviewed and are negative Constitutional Constitutional: Denies chills and Denies fever(s) Cardiovascular Cardiovascular: Denies chest pain and Denies dyspnea Respiratory Respiratory: Denies cough and Denies dyspnea Gastrointestinal Gastrointestinal: Denies abdominal pain Physical Exam Vital Signs: Vital Signs: Last Vital Signs Temp 97.6 F 12/19/22 11:44 Pulse 71 12/19/22 11:44 Resp 18 12/19/22 11:44 BP 135/51 L 12/19/22 11:44 Pulse Ox 95 12/19/22 11:44 O2 Del Method Room Air 12/19/22 11:44 O2 Flow Rate 1.5 12/15/22 04:00 Oxygen Flow Rate 1.5 12/14/22 15:00 BMI result Body Mass Index 32.6 Const: General: cooperative, comfortable, no acute distress, alert and awake Nutritional Appearance: average body habitus Orientation/consciousness: patient oriented x3 Resp: Effort & Inspection: normal respiratory effort, able to speak in complete sentences, no respiratory distress and no use of accessory muscles Cardio: Rate: regular rate GI: Inspection: No distended Palpation (GI): Soft to palpation and nontender Neuro: General: patient oriented x3, moves all extremities and CN's II-XI intact bilaterally Extrem: Other: right hip bandage c/d/i General: Yes no pedal edema Objective Data Active Medications Acetaminophen (Acetaminophen 325 Mg Tablet) 650 mg PO Q6H PRN PRN Reason: Pain, Mild (Pain Scale 1-3) Last Admin: 12/11/22 10:28 Dose: 650 mg Documented By: MELQUIADES Acetaminophen (Acetaminophen 325 Mg Tablet) 650 mg PO TID [facility] Last Admin: 12/19/22 08:10 Dose: 650 mg Documented By: MELQUIADES Amlodipine Besylate (Amlodipine Besylate 10 Mg Tablet) 10 mg PO DAILY [facility]; Protocol Last Admin: 12/19/22 08:10 Dose: 10 mg Documented By: MELQUIADES Atorvastatin Calcium (Atorvastatin Calcium 40 Mg Tablet) 40 mg PO BEDTIME [facility] Last Admin: 12/18/22 21:16 Dose: 40 mg Documented By: KEANU Brimonidine Tartrate (Brimonidine Tartrate 0.2% Oph 5 Ml Bottle) 1 drop EYE-BOTH BID [facility] Last Admin: 12/19/22 08:09 Dose: 1 drop Documented By: MELQUIADES Dextrose (Dextrose 50 % 25 Gm/50 Ml Syringe) 25 gm IVPUSH Q15M PRN; Protocol PRN Reason: per Hypoglycemia Standing Ord. Docusate Sodium (Docusate Sodium 100 Mg Capsule) 200 mg PO DAILY [facility] Last Admin: 12/19/22 08:10 Dose: 200 mg Documented By: MELQUIADES Dorzolamide/Timolol (Dorzolamide/Timolo 2.23%/0.68% 10 Ml Drbtl) 1 drop EYE-BOTH BID [facility] Last Admin: 12/19/22 08:09 Dose: 1 drop Documented By: MELQUIADES Enoxaparin Sodium (Enoxaparin Sodium 40 Mg/0.4 Ml Syringe) 40 mg SUBCUT Q24H [facility] Last Admin: 12/19/22 12:00 Dose: 40 mg Documented By: MELQUIADES Gabapentin (Gabapentin 300 Mg Capsule) 300 mg PO BEDTIME [facility] Last Admin: 12/18/22 21:16 Dose: 300 mg Documented By: KEANU Glucose (Glucose Gel 15 Gm Gel..Gram.) 15 gm PO Q15M PRN; Protocol PRN Reason: per Hypoglycemia Standing Ord. Insulin Glargine (Insulin Glargine,Hum.Rec.Anlog 100 Unit/Ml 10 Ml Vial) 18 unit SUBCUT BEDTIME [facility] Last Admin: 12/18/22 21:15 Dose: 18 unit Documented By: KEANU Insulin Human Lispro (Insulin Lispro 100 Unit/Ml 3 Ml Vial) 0 unit SUBCUT QIDACHS [facility]; Protocol Last Admin: 12/19/22 12:01 Dose: 6 unit Documented By: MELQUIADES Losartan Potassium (Losartan Potassium 25 Mg Tablet) 25 mg PO DAILY [facility]; Protocol Last Admin: 12/19/22 08:10 Dose: 25 mg Documented By: MELQUIADES Melatonin (Melatonin 3 Mg Tablet) 6 mg PO BEDTIME PRN PRN Reason: Insomnia Last Admin: 12/17/22 20:47 Dose: 6 mg Documented By: COURTNEY Metoprolol Succinate (Metoprolol Succinate Er 25 Mg Tab.Er.24h) 25 mg PO BEDTIME [facility]; Protocol Last Admin: 12/18/22 21:16 Dose: 25 mg Documented By: KEANU Ondansetron HCl (Ondansetron Hcl 4 Mg/2 Ml Vial) 4 mg IVPUSH Q8H PRN PRN Reason: Nausea and Vomiting Last Admin: 12/18/22 07:26 Dose: 4 mg Documented By: JOSE Oxycodone HCl (Oxycodone Hcl Immed Release 5 Mg Tablet) 5 mg PO Q6H PRN PRN Reason: Pain, Moderate(Pain Scale 4-6) Last Admin: 12/18/22 06:15 Dose: 5 mg Documented By: COURTNEY Polyethylene Glycol (Polyethylene Glycol 3350 17 Gm Powd.Pack) 17 gm PO DAILY [facility] Last Admin: 12/19/22 08:10 Dose: 17 gm Documented By: MELQUIADES Sodium Chloride (0.9 % Sodium Chloride Flush 3 Ml Syringe) 3 ml IVFLUSH QSHIFT [facility] Last Admin: 12/19/22 08:11 Dose: 3 ml Documented By: MELQUIADES Tamsulosin HCl (Tamsulosin Hcl 0.4 Mg Capsule) 0.4 mg PO BEDTIME [facility] Last Admin: 12/18/22 21:16 Dose: 0.4 mg Documented By: KEANU Labs 12/17/22 06:14 12/18/22 23:33 Labs: Laboratory Results - last 24 hr 12/18/22 12/18/22 12/18/22 15:59 19:52 23:33 Hold Purple Top Anion Gap 11 L Estim Creat Clear Calc 56.1 Estimated GFR > 60 POC Glucose 206 H 175 H Random Glucose 158 H Calcium 8.4 Magnesium 1.9 12/19/22 12/19/22 12/19/22 07:09 11:14 Unknown Hold Purple Top SEE NOTE Anion Gap Estim Creat Clear Calc Estimated GFR POC Glucose 166 H 202 H Random Glucose Calcium Magnesium Assessment and Plan (1) Intertrochanteric fracture of right femur: Status: Acute Plan 77-year-old male with pertinent history of insulin-dependent diabetes mellitus with neuropathy, congestive heart failure with preserved ejection fraction, gastro esophageal reflux disease, coronary artery disease, essential hypertension who presents to the emergency department for evaluation after a fall found to have right femur fracture s/p Inter trochanteric fracture of right femur s/p right IMN 12/10 pain control adequate at rest, only with activity recommend to minimize use of narcotics due to side effects, continue physical therapy vtach had episode of NSVT overnight x2. asymptomatic chemistry checked and lytes ok received po and mag replacement echo from 12/09 with preserved EF continue metoprolol Presyncope normal blood sugars, no arrhythmia on tele monitor, stable blood pressure No recurrent episodes of lightheadedness or dizziness. CT shows head showed no acute intracranial pathology, no CT evidence of acute cervical spine fracture DEAN on chronic kidney disease stage 3 likely hypovolemic DEAN due to poor by mouth intake, nausea and vomiting resolved status post IV fluid , home dose of losartan restarted on 12/17 Urinary retention multifactorial including anesthesia/opiates/BPH, Bliss catheter removed ,no voiding issues continue Flomax Acute on chronic anemia hemoglobin stable, status post 2 units of blood transfusion H/H stable DMII trulicity on hold elevated blood sugars will increase dose of Lantus to 18 units and lispro correctional scale, adjust as indicated Acute hypernatremia resolved with IV fluids. Hypertension better blood pressure control, continue Norvasc , metoprolol, and losartan . Early pneumonia/acute hypoxia s/p doxycycline day 5, oxygen improved 94% on room air DVT ppx -Lovenox Full code attending - Dr. Brito Disposition - STR -pending insurance Auth Will need continued inpatient hospital stay, for intratrochanteric right femur fracture status post surgery continue pain management electrolyte monitoring and blood pressure medication adjustment. Time Spent With Patient Time: Total time managing care of this patient today ____ minutes. Quality Stroke Does the patient have a stroke diagnosis?: No VTE Prior VTE?: No VTE Risk Level:: Medical - moderate - high VTE Device Contraindication: Treatment Not Indicated VTE Drug Contraindication: Treatment Not Indicated
[2022-12-19] MEDS: ondansetron HCL 4 MG/2 ML VIAL IVPUSH (14:05)
[2022-12-19 16:08] LABS: Glucose, Whole Blood 249 mg/dL (60-115)
--- NOTE | 2022-12-19 16:19 | P.CDIM_ITS ---
PROVIDER RESPONSE TEXT: To clarify, the appropriate diagnosis supported by the clinical indicators: Acute blood loss anemia with baseline chronic anemia: likely baseline anemia of chronic disease QUERY TEXT: >>> Provider Instructions - Do not remove this line >>> PHYSICIAN'S DOCUMENTATION REQUEST Date of Query: 12/19/2022 01:32 PM EDT Patient Name: Deyanira Vitale Admit Date: 12/09/2022 Dear Sarah Carrion, A review of the medical record indicates additional documentation may be needed. Please review below and update the documentation accordingly. Clinical Indicators: H&H on 12/08/22: 11.1/32.3 H&H on 12/13/22: 7.8/23.5 Per Hospitalist Progress Note 12/19/22: Acute on chronic anemia hemoglobin stable, status post 2 units of blood transfusion H/H stable Based on the above, could you clarify which of the following is the most likely type of anemia you ar e evaluating, treating, and/or monitoring? <<< Provider Instructions - Do not remove this line <<< Acute blood loss anemia Acute blood loss anemia with baseline chronic anemia (specify type) Anemia of chronic disease indicate if neoplastic disease, CKD, or other Chronic iron deficiency anemia due to blood loss Other (explain)Clinically unable to determine (explain)>>> Contact Info Do not remove this line>>> Thank you, Lashaun Prince RN Use of terms such as suspected, likely, concern for, or probable (associated with a specific diagnosi s that is being evaluated, monitored, or treated as if it exists) are acceptable and can be coded in the inpatient se tting, when documented at the time of discharge. Please use your independent medical judgment in providing your response. THIS QUERY IS PART OF THE PERMANENT MEDICAL RECORD <<< Contact Info Do not remove this line <<< >>> Disclaimer - Do no remove this line>>> Extension: [phone] <<< Disclaimer - Do not remove this line<<<
[2022-12-19 19:50] LABS: Glucose, Whole Blood 239 mg/dL (60-115)
[2022-12-19] MEDS: Tamsulosin HCL 0.4 MG CAPSULE PO (22:32)
[2022-12-19] MEDS: Insulin Glargine,Hum.rec.anlog 100 UNIT/ML 10 ML VIAL 18 UNIT SUBCUT (22:33)
[2022-12-19] MEDS: Metoprolol Succinate ER 25 MG TAB.ER.24H PO (22:33)
[2022-12-19] MEDS: Atorvastatin Calcium 40 MG TABLET PO (22:33)
[2022-12-19] MEDS: Gabapentin 300 MG CAPSULE PO (22:33)
[2022-12-20 03:47] VITALS: BP 150/63; PULSE 82; RESP 18; TEMP 37.4; O2SAT 94
[2022-12-20 07:06] LABS: Glucose, Whole Blood 190 mg/dL (60-115)
[2022-12-20 07:29] VITALS: BP 169/63; PULSE 79; RESP 20; TEMP 36.6; O2SAT 95
[2022-12-20] MEDS: Insulin Lispro 100 UNIT/ML 3 ML VIAL SUBCUT ×2 (08:24→12:12)
[2022-12-20] MEDS: Losartan Potassium 25 MG TABLET PO (08:25)
[2022-12-20] MEDS: 0.9 % Sodium Chloride Flush 3 ML SYRINGE IVFLUSH (08:25)
[2022-12-20] MEDS: Brimonidine Tartrate 0.2% Oph 5 ML BOTTLE 1 DROP EYE-BOTH (08:25)
[2022-12-20] MEDS: Acetaminophen 325 MG TABLET 650 MG PO (08:25)
[2022-12-20] MEDS: Dorzolamide/Timolo 2.23%/0.68% 10 ML DRBTL 1 DROP EYE-BOTH (08:25)
[2022-12-20] MEDS: amLODIPine Besylate 10 MG TABLET PO (08:25)
[2022-12-20] MEDS: Docusate Sodium 100 MG CAPSULE 200 MG PO (08:25)
--- NOTE | 2022-12-20 10:40 | MHC.CM.PN ---
Second IMM given 12/20. Pt is medically cleared for D/C and insurance auth obtained for STR at [facility] [address] today. Transport set up for 3pm via BLS/Arlene.
[2022-12-20 11:00] LABS: Glucose, Whole Blood 173 mg/dL (60-115)
--- NOTE | 2022-12-20 11:17 | P.DS_ITS ---
DS: Providers Provider Date of Service: 12/20/22 Date of admission: 12/08/22 21:16 Date of discharge: 12/20/22 Primary care physician: Marcia Clements MD Consults: 12/08/22 21:18 Consult to Orthopedics Routine Consulting Provider[place] [facility] Reason for consultation: intertrochanteric fracture of the right proximal femur. 12/09/22 08:06 Consult to Cardiology Routine Consulting Provider: [facility] Reason for consultation: preop clearance Has provider been notified: No 12/11/22 11:05 Consult to Nephrology Routine Consulting Provider: Channing Trevino Reason for consultation: dean Attending physician on discharge: Bladimir Brito Discharging clinician: Sarah Carrion DS: Diagnosis Discharge Diagnosis (1) Intertrochanteric fracture of right femur: Status: Acute (2) DEAN (acute kidney injury): Status: Acute DS: Summary Hospital Course Hospital Course: From H&P on day of admission This is a 77-year-old male with pertinent history of insulin-dependent diabetes mellitus with neuropathy, congestive heart failure with preserved ejection fraction, gastroesophageal reflux disease, coronary artery disease, essential hypertension who presents to the emergency department for evaluation after a fall. Patient states he went to [employer] and when he 1st started walking from a sitting position, he felt dizzy and lightheaded and the next thing he knew he was on the floor. Patient fell on his right side. He has been complaining of right-sided pain since the fall which is worse with movement. Denies chest discomfort or palpitations prior to the fall. Denies loss of consciousness. No rhythmic jerking movement of extremities. No fever, chills, shortness of breath, abdominal pain, changes in urinary or bowel habits. In the emergency department, imaging with community intertrochanteric fracture of the right proximal femur. Hospital course Leelee was admitted for Inter trochanteric fracture of right femur. s/p right IMN 12/10. pain control adequate at rest, only with activity recommend to minimize use of narcotics due to side effects. seen by PT who recommended STR. hospital course complicated by several issues as below vtach had episode of NSVT x2. patient was asymptomatic. chemistry checked and lytes ok, he received po and mag replacement. echo from 12/09 with preserved EF. he was continued on metoprolol and had no further episodes on the monitor. recommend outpatient follow up with cardiology. Presyncope normal blood sugars, no arrhythmia on tele monitor, stable blood pressure No recurrent episodes of lightheadedness or dizziness. CT shows head showed no acute intracranial pathology, no CT evidence of acute cervical spine fracture DEAN on chronic kidney disease stage 3 likely hypovolemic DEAN due to poor by mouth intake, nausea and vomiting resolved status post IV fluid , home dose of losartan restarted on 12/17 Urinary retention multifactorial including anesthesia/opiates/BPH, Bliss catheter removed ,no voiding issues. continue Flomax Acute on chronic anemia likely related to acute blood loss from fracture and surgery status post 2 units of blood transfusion H/H stable. follow cbc periodically DMII trulicity on hold elevated blood sugars will increase dose of Lantus to 18 units and lispro correctional scale, adjust as indicated Acute hypernatremia resolved with IV fluids. Hypertension better blood pressure control, continue Norvasc , metoprolol, and losartan . Early pneumonia/acute hypoxia s/p doxycycline day 5, oxygen improved 97% on room air. no respiratory complaints DTI to coccyx. continue frequent position changes and protective foam Time Spent with Patient Time attestation: Total time managing care of this patient today ____ minutes. Discharge coordination time: Greater than 30 minutes Quality: Safe Use of Opioids Does Pt have an Active Cancer Diagnosis on the Problem List?: No Quality: Stroke Does the patient have a stroke diagnosis?: No Physical Exam Vital Signs: Vital Signs: Last Vital Signs Temp 97.8 F 12/20/22 07:29 Pulse 79 12/20/22 07:29 Resp 20 12/20/22 07:29 BP 169/63 H 12/20/22 07:29 Pulse Ox 95 12/20/22 07:29 O2 Del Method Room Air 12/20/22 07:29 O2 Flow Rate 1.5 12/15/22 04:00 Oxygen Flow Rate 1.5 12/14/22 15:00 BMI result Body Mass Index 32.6 Const: General: cooperative, comfortable, no acute distress, alert and awake Nutritional Appearance: average body habitus Orientation/consciousness: patient oriented x3 Resp: Effort & Inspection: normal respiratory effort, able to speak in complete sentences, no respiratory distress and no use of accessory muscles Cardio: Rate: regular rate GI: Inspection: No distended Palpation (GI): Soft to palpation and nontender Neuro: General: patient oriented x3, moves all extremities and CN's II-XI intact bilaterally Extrem: Other: right hip bandage c/d/i General: Yes no pedal edema DS: Data Data Completed and Pending Labs on day of discharge: Laboratory Results - last 24 hr 12/19/22 12/19/22 12/19/22 11:14 16:04 19:46 POC Glucose 202 H 249 H 239 H 12/20/22 12/20/22 07:02 10:56 POC Glucose 190 H 173 H Discharge Plan Discharge Anticipated Discharge Date/Time: 12/20/22 14:00 Patient Disposition: Xfer SNF Discharge Diagnosis: Intertrochanteric fracture of right femur Acute on creatinine kidney disease stage 3 Acute on chronic anemia Acute hypernatremia Referrals: Murray Newman [Outside] - 1 Day (SHORT TERM REHAB) Ria Abel PA-C [Physician [employer]] - 12/26/22 1:15 pm Po,Marcia Overton MD [Primary Care Provider] - 1 Week Discharge Medications: New enoxaparin 40 mg/0.4 mL Syringe 40 mg subcut Q24H 42 Days Qty: 16.8 0RF acetaminophen 325 mg Tablet 650 mg PO TID Qty: 60 0RF docusate sodium 100 mg Capsule 200 mg PO DAILY Qty: 30 0RF oxycodone 5 mg Tablet 5 mg PO Q6H PRN (Reason: Pain, Moderate(Pain Scale 4-6)) Qty: 14 0RF Rx Instructions: Partial Fill upon patient request. polyethylene glycol 3350 17 gram Powder In Packet 17 g PO DAILY Qty: 30 0RF tamsulosin 0.4 mg Capsule 0.4 mg PO BEDTIME Qty: 30 0RF Continued (DME) pen needle, diabetic [BD Martina 2nd Gen Pen Needle] 32 gauge x needle See Rx Instructions .MEDSUPPLY Qty: 400 4RF Rx Instructions: 5 times a day (DME) HOSPITAL BED See Rx Instructions .Route .MEDSUPPLY Qty: 1 0RF Rx Instructions: As directed acetaminophen [Tylenol Extra Strength] 500 mg tablet 500 mg PO Q6H PRN (Reason: pain or fever) Qty: 20 0RF dorzolamide-timolol 22.3-6.8 mg/mL drops 1 drp ophthalmic (eye) BID Tremfya 100 mg/mL auto-injector subcut multivitamin Tablet 1 tab PO BEDTIME ascorbic acid (vitamin C) 500 mg Tablet 500 mg PO BEDTIME furosemide 20 mg tablet 20 mg PO BEDTIME brimonidine 0.15 % drops 1 drp ophthalmic (eye) BID aspirin 81 mg tablet,delayed release (DR/EC) 81 mg PO BEDTIME amlodipine 10 mg tablet 10 mg PO BEDTIME losartan 25 mg tablet 25 mg PO BEDTIME metoprolol succinate 25 mg tablet extended release 24 hr 25 mg PO BEDTIME insulin lispro [Humalog KwikPen Insulin] 100 unit/mL insulin pen 10 unit subcut TID Rx Instructions: before meals as directed rosuvastatin 40 mg tablet 40 mg PO BEDTIME cholecalciferol (vitamin D3) 25 mcg (1,000 unit) tablet 25 mcg PO BEDTIME insulin degludec 100 unit/mL (3 mL) insulin pen 20 unit subcut BEDTIME Trulicity 1.5 mg/0.5 mL pen injector 1.5 mg subcut PONCE (DME) FreeStyle Lite Strips Strip See Rx Instructions .ROUTE .MEDSUPPLY Qty: 150 11RF Rx Instructions: As directed four times a day (DME) 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 meter [FreeStyle [place] Lite] Kit See Rx Instructions .ROUTE .MEDSUPPLY Qty: 1 0RF Rx Instructions: As directed (DME) lancets [FreeStyle Lancets] 28 gauge misc See Rx Instructions .ROUTE .MEDSUPPLY Qty: 100 3RF Rx Instructions: As directed check BS QD gabapentin 300 mg capsule 300 mg PO BEDTIME Qty: 90 2RF Discharge Orders: Discharge Order (Routine); Ordered 12/20/22 Ordered By: Sarah Carrion Diet: Diabetic diet Activity on Discharge: As tolerated Stand Alone Forms: Patient Portal Discharge page Activity Restrictions/Additional Instructions: Gait training, strengthening, ADLs Continue lovenox for dvt ppx x 6 weeks Keep dressing clean, dry and intact-no showering or tub baths Follow up with Orthopedics in 2 weeks Care Plan Goals: see below Health Concerns: Diabetes mellitus follow blood sugars closely resume home insulin, titrate as needed Hypertension Aortic stenosis NSVT right hip fracture Plan of Treatment: Out patient follow-up with primary care physician and Cardiology call for appointment. Assessment: As above Discharge Date/Time: 12/20/22 16:13
[2022-12-20 11:23] VITALS: BP 134/50; PULSE 78; RESP 20; TEMP 36.3; O2SAT 97
--- NOTE | 2022-12-20 11:31 | MHC.CLN ---
F/U PT WITH INCREASED NUTRITION RISK R/T PRESSURE INJURY PO INTAKE VARIABLE RANGING FROM 0-100% DIET RX: 2000DM -APPROPRIATE PT RECEIVING GELATEIN SUPPLEMENT BID TO PROMOTE WOUND HEALING SUPP PROVIDES 320KCALS, 40G PROTEIN MONITOR PO INTAKE AND ENCOURAGE SUPPLEMENT
--- NOTE | 2022-12-20 11:43 | P.CDIM_ITS ---
PROVIDER RESPONSE TEXT: To clarify, the appropriate diagnosis supported by the clinical indicators: Other (explain): DTI to coccyx QUERY TEXT: PHYSICIAN'S DOCUMENTATION REQUEST Date of Query: 12/20/2022 07:13 AM EDT Patient Name: Deyanira Vitale Admit Date: 12/09/2022 Dear Sarah Carrion, A review of the medical record indicates additional documentation may be needed. Please review below and update the documentation accordingly. Clinical Indicators: The following diagnoses or signs and symptoms were noted in the patient record: Per Nursing Pressure Injury Assessment 12/17/22: wound coccyx, Deep tissue injury, foam dressing, barrier cream Based on the above, could you clarify the appropriate diagnosis, if significant, that supports the ab ove abnormalities and additional evaluation, monitoring, and/or treatment rendered: wound coccyx, please specify type of wound Deep tissue injury, coccyx, unstageable decubitus Condition 3 (please specify) Other (explain)Clinically unable to determine (explain)Thank you, Lashaun Prince RN Use of terms such as suspected, likely, concern for, or probable (associated with a specific diagnosi s that is being evaluated, monitored, or treated as if it exists) are acceptable and can be coded in the inpatient se tting, when documented at the time of discharge. Please use your independent medical judgment in providing your response. THIS QUERY IS PART OF THE PERMANENT MEDICAL RECORD
[2022-12-20] MEDS: Enoxaparin Sodium 40 MG/0.4 ML SYRINGE SUBCUT (12:13)
[2022-12-20 12:45] VITALS: BP 134/50; PULSE 78; O2SAT 97
[2022-12-20 15:03] VITALS: BP 156/54; PULSE 71; RESP 20; TEMP 36.7; O2SAT 96
== END 2022-12-20 16:13 | disposition skilled nursing facility (03) | DRG 480 ==
LOC: HO.ED 20:20 → HO.EDOVER 21:54 → HO.IMC 12-09 14:41
PROVIDERS: Hospitalist; Internal Medicine; Internal Medicine Hypertension Specialist; Orthopaedic Surgery; Physician Assistant; Admitting Provider Student in an Organized Health Care Education/Training Program; Emergency Provider Internal Medicine; PCP Internal Medicine; Visit Provider Physician Assistant Medical
PROC: 0QS736Z Reposition Left Upper Femur with Intramedullary Internal Fixation Device, Percutaneous Approach (ICD-10-PCS; principal; 2022-12-10 16:00)
DX: S72.141A Displaced intertrochanteric fracture of right femur, initial encounter for closed fracture (principal); J18.9 Pneumonia, unspecified organism; I13.0 Hypertensive heart and chronic kidney disease with heart failure and stage 1 through stage 4 chronic kidney disease, or unspecified chronic kidney disease; I50.32 Chronic diastolic (congestive) heart failure; N17.9 Acute kidney failure, unspecified; J98.11 Atelectasis; E87.0 Hyperosmolality and hypernatremia; I47.20 Ventricular tachycardia, unspecified; D62 Acute posthemorrhagic anemia; W19.XXXA Unspecified fall, initial encounter; E11.42 Type 2 diabetes mellitus with diabetic polyneuropathy; F17.210 Nicotine dependence, cigarettes, uncomplicated; I25.10 Atherosclerotic heart disease of native coronary artery without angina pectoris; N18.30 Chronic kidney disease, stage 3 unspecified; E11.22 Type 2 diabetes mellitus with diabetic chronic kidney disease; R33.9 Retention of urine, unspecified; E11.65 Type 2 diabetes mellitus with hyperglycemia; D63.1 Anemia in chronic kidney disease; E86.1 Hypovolemia; L89.156 Pressure-induced deep tissue damage of sacral region; I35.0 Nonrheumatic aortic (valve) stenosis; R09.02 Hypoxemia; Z95.1 Presence of aortocoronary bypass graft; Z71.6 Tobacco abuse counseling; Z79.4 Long term (current) use of insulin; Z79.82 Long term (current) use of aspirin; Z79.899 Other long term (current) drug therapy
CPT/HCPCS: 36415; 70450; 71045; 72125; 73502; 76775; 80048; 80053; 80076; 82570; 82947; 83690; 83735; 83880; 84156; 84300; 84484; 85014; 85018; 85025; 85027; 85610; 86850; 86900; 86901; 86923; 93005; 93306; 97110; 97162; 97166; 97530; 99285; C1713; C1758; C1769; J0690; J1170; J1650; J2060; J2270; J2371; J2405; J2795; J3010; J3475; P9016; Q9957

== ENCOUNTER → 2022-12-08 20:19 | Outpatient (BNV) | payer MEDICARE, SELFPAY | PROVIDERS: Emergency Provider Internal Medicine; PCP Internal Medicine; Visit Provider Student in an Organized Health Care Education/Training Program | DX: S72.141A Displaced intertrochanteric fracture of right femur, initial encounter for closed fracture (principal); N17.9 Acute kidney failure, unspecified | CPT/HCPCS: 99222; 99232; 99233; 99239 ==

== ENCOUNTER 2022-12-08 21:16 | Outpatient (BNV) | payer MEDICARE, SELFPAY | END 2022-12-09 07:00 | PROVIDERS: Admitting Provider Student in an Organized Health Care Education/Training Program; Emergency Provider Internal Medicine; PCP Internal Medicine; Visit Provider Internal Medicine Cardiovascular Disease | DX: I35.0 Nonrheumatic aortic (valve) stenosis (principal) | CPT/HCPCS: 93306 ==

== ENCOUNTER → 2022-12-08 21:16 | Outpatient (BNV) | payer MEDICARE, SELFPAY | PROVIDERS: Admitting Provider Student in an Organized Health Care Education/Training Program; Emergency Provider Internal Medicine; PCP Internal Medicine; Visit Provider Physician Assistant | DX: S72.141A Displaced intertrochanteric fracture of right femur, initial encounter for closed fracture (principal) | CPT/HCPCS: 27245; 99024; 99222 ==

== ENCOUNTER 2022-12-26 09:23 | Outpatient (REF) | payer MEDICARE, SELFPAY | END 2022-12-26 09:24 | disposition home or self-care (01) | LOC: HO.HOSX 09:23 | PROVIDERS: Visit Provider Physician Assistant | DX: Z13.89 Encounter for screening for other disorder (principal) ==

== ENCOUNTER 2023-01-01 12:42 | Outpatient (AMB) | payer MEDICARE, SELFPAY ==
--- NOTE | 2023-01-01 13:22 | MHC.OFFVIS ---
Intake Intake Visit Reasons: p.o- s/p rt hip IM Nail with Dr. Melton 12/10/22 Intake Note: Deyanira a 77 year old male who presents today for a post operative right hip IMN, DOS 12/10/22 NE. Patient reports being in a lot of pain and is unable to bear any weight on his leg. Allergies furosemide Adverse Reaction (Intermediate, Verified 01/01/23 13:23) Dizziness HPI p.o- s/p rt hip IM Nail with Dr. Melton 12/10/22 HPI Details 77-year-old male who returns to the office today for post-op right hip IMN, 12/10/[address] Melton. He states he has chronic pain in his hip which is aggravated with movement. He is unable to bear any weight on his leg. He continues to work on physical therapy with benefits. He is doing well otherwise and has no concerns today. [facility] Medical History Impacted cerumen of right ear Impacted cerumen of both ears Epidermoid cyst of skin of cheek Mass of face Allergic rhinitis Trigger finger, right middle finger Fracture of distal end of left radius with routine healing Superficial abrasion Pneumonia due to COVID-19 virus Acute hypoxemic respiratory failure due to COVID-19 Distal radius fracture, right Renal insufficiency Trigger finger, right middle finger Respiratory tract infection Aortic stenosis Preoperative clearance Iliac artery stenosis, 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 History of renal calculi Compression fracture of L1 lumbar vertebra Infective endocarditis Glaucoma Tobacco abuse Left carotid stenosis GERD (gastroesophageal reflux disease) Pulmonary nodule Cardiomyopathy Congestive heart failure Overweight (BMI 25.0-29.9) Carotid artery stenosis PVD (peripheral vascular disease) Dyslipidemia Hypertension CAD (coronary artery disease) Diabetic retinopathy associated with type 2 diabetes mellitus Diabetic polyneuropathy associated with type 2 diabetes mellitus CKD stage 3 due to type 2 diabetes mellitus Diabetic 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 diabetes mellitus 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 Surgical History Hx of shoulder surgery Hx of coronary artery bypass graft Hx of cataract removal with insertion of prosthetic lens Hx of tonsillectomy Hx of appendectomy Hx of arthroscopy of right knee Family History Father Stomach cancer Mother Diabetes Brother Prostate abscess Social History Household Members: Spouse Housing: Apartment Do you presently have visiting nurse or other home services: No Alcohol intake: never Patient Tobacco Use Status: Current everyday Tobacco user Tobacco use type: Cigarette Cigarette Packs Per Day: 0.25 Cigarettes Per Day: 3 Years Smoked: 65 e-Cigarette/Vaping Use: Never Used Second Hand Smoke Exposure: Yes Advance Directives Date on File: 06/08/21 service: No Current occupational status: 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 Cognitive needs: No Hearing needs: No Vision needs: No Review of Systems Const All systems reviewed & are unremarkable except as noted in HPI and below Physical Exam Extrem Other: Right hip: Incision clean, dry and intact. No erythema or drainage. Mild discomfort with hip flexion and ROM. NVI. Results Reviewed Results Reviewed: Xrays were obtained in the office today and personally reviewed by me of the pelvis/knee show intact IMN with stable fracture alignment Assessment & Plan Assessment & Plan (1) Intertrochanteric fracture of right femur: Code(s): S72.141A - Displaced intertrochanteric fracture of right femur, initial encounter for closed fracture Qualifiers: Encounter type: initial encounter Fracture alignment: displaced Fracture type: closed Qualified Code(s): S72.141A - Displaced intertrochanteric fracture of right femur, initial encounter for closed fracture Plan Rafa removed, steri strips applied. He will continue with PT to continue working on Gait training, ROM and strength. He will f/u in 4 weeks, with xrays , sooner if needed Orders: Orders XR pelvis 1-2V Today M25.559 - Pain in unspecified hip XR knee RT 2V Today M25.569 - Pain in unspecified knee Patient Instructions: Scribed for Keny Wynn PA-C, by Garrett Portillo medical transport specialist, on 01/01/2023 at 1:15 PM EST. IKeny PA-C, have personally reviewed and agree with the information entered by the scribe. Coding Level of Care Code Global (66947) Diagnoses Closed displaced intertrochanteric fracture of right femur, initial encounter S72.141A Encounter type: initial encounter Fracture alignment: displaced Fracture type: closed
== END 2023-01-01 13:44 | disposition home or self-care (01) ==
PROVIDERS: PCP Internal Medicine; Visit Provider Physician Assistant
DX: S72.141A Displaced intertrochanteric fracture of right femur, initial encounter for closed fracture (principal)
CPT/HCPCS: 99024

== ENCOUNTER 2023-01-01 15:59 | Outpatient (REF) | payer MEDICARE, SELFPAY ==
--- NOTE | ~2023-01-01 | XR_ITS ---
EXAMINATION: XR HIP, RIGHT. PELVIS CLINICAL INFORMATION: History of fall. COMPARISON: None available. TECHNIQUE: Two views of the right hip. 2 AP views of the pelvis. FINDINGS: AP PELVIS: Status post interval internal fixation of previously identified comminuted intertrochanteric fracture of the right proximal femur. The femoral head is well-seated within the acetabulum. Hardware appears intact. Degenerative changes bilateral hips. Vascular calcifications. RIGHT KNEE: 2 views were obtained to include the mid to distal right femur. Please note that the knee was not adequately imaged and dedicated views of the knee would be needed for evaluation if clinically indicated. Mid to distal portion of the intramedullary dwaine appears intact. Stent projects along the mid to distal aspect of the thigh. Extensive vascular calcifications. XR/XR pelvis 1-2V IMPRESSION: 1. Status post interval internal fixation of previously identified comminuted intertrochanteric fracture of the right proximal femur. Hardware appears intact. 2. Degenerative changes in the bilateral hips. 3. Please note that the knee was not adequately imaged and dedicated views of the knee would be needed for evaluation if clinically indicated.
--- NOTE | ~2023-01-01 | XR_ITS ---
EXAMINATION: XR HIP, RIGHT. PELVIS CLINICAL INFORMATION: History of fall. COMPARISON: None available. TECHNIQUE: Two views of the right hip. 2 AP views of the pelvis. FINDINGS: AP PELVIS: Status post interval internal fixation of previously identified comminuted intertrochanteric fracture of the right proximal femur. The femoral head is well-seated within the acetabulum. Hardware appears intact. Degenerative changes bilateral hips. Vascular calcifications. RIGHT KNEE: 2 views were obtained to include the mid to distal right femur. Please note that the knee was not adequately imaged and dedicated views of the knee would be needed for evaluation if clinically indicated. Mid to distal portion of the intramedullary dwaine appears intact. Stent projects along the mid to distal aspect of the thigh. Extensive vascular calcifications. XR/XR knee RT 2V IMPRESSION: 1. Status post interval internal fixation of previously identified comminuted intertrochanteric fracture of the right proximal femur. Hardware appears intact. 2. Degenerative changes in the bilateral hips. 3. Please note that the knee was not adequately imaged and dedicated views of the knee would be needed for evaluation if clinically indicated.
== END 2023-01-01 16:00 | disposition home or self-care (01) ==
LOC: HO.HOSX 15:59
PROVIDERS: Visit Provider Physician Assistant
DX: S72.141D Displaced intertrochanteric fracture of right femur, subsequent encounter for closed fracture with routine healing (principal); M25.551 Pain in right hip; M25.561 Pain in right knee
CPT/HCPCS: 72170; 73560; 99212

== ENCOUNTER 2023-01-30 06:45 | Outpatient (REF) | payer MEDICARE, SELFPAY ==
--- NOTE | ~2023-01-30 | XR_ITS ---
EXAMINATION: XR HIP, RIGHT CLINICAL INFORMATION: Pain unspecified COMPARISON: 01/01/2023 TECHNIQUE: 4 views of the right hip. FINDINGS: The bones are diffusely demineralized. Moderate degenerative changes on AP view of the left hip. Extensive vascular calcifications. Redemonstration of right femoral dwaine and screw traversing the previously identified comminuted intertrochanteric fracture of the right proximal femur. The right femoral head remains well-seated within the acetabulum. Hardware appears intact. Degenerative changes in the bilateral XR/XR hip RT w PEL1V IMPRESSION: Redemonstration of hardware traversing previously noted comminuted intertrochanteric fracture of the proximal right femur. Hardware appears intact where imaged, however, the distal portion of the femoral dwaine is not included in the images provided and cannot be assessed.
== END 2023-01-30 06:46 | disposition home or self-care (01) ==
LOC: HO.HOSX 06:45
PROVIDERS: Visit Provider Physician Assistant
DX: S72.141D Displaced intertrochanteric fracture of right femur, subsequent encounter for closed fracture with routine healing (principal); M25.551 Pain in right hip; X58.XXXD Exposure to other specified factors, subsequent encounter
CPT/HCPCS: 73502; 99212

== ENCOUNTER 2023-01-30 12:21 | Outpatient (AMB) | payer MEDICARE, SELFPAY ==
--- NOTE | 2023-01-30 12:29 | A.OFFVIS_ITS ---
Intake Intake Visit Reasons: s/p rt hip IM Nail with NE 12/10/22-w xrays Intake Note: Deyanira pittman 77 year old male presents today for a post operative right hip IMN, DOS 12/10/22 NE. Patient reports he is doing well, however he has pain with walking. Allergies furosemide Adverse Reaction (Intermediate, Verified 01/30/23 12:44) Dizziness HPI s/p rt hip IM Nail with NE 12/10/22-w xrays HPI Details 77-year-old male who returns [facility] for post-op right hip IMN, 12/10/[address] Melton. He states he is doing well but he does c/o pain with ambulation. He has no other concerns today. [facility] Medical History Impacted cerumen of right ear Impacted cerumen of both ears Epidermoid cyst of skin of cheek Mass of face Allergic rhinitis Trigger finger, right middle finger Fracture of distal end of left radius with routine healing Superficial abrasion Pneumonia due to COVID-19 virus Acute hypoxemic respiratory failure due to COVID-19 Distal radius fracture, right Renal insufficiency Trigger finger, right middle finger Respiratory tract infection Aortic stenosis Preoperative clearance Iliac artery stenosis, 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 History of renal calculi Compression fracture of L1 lumbar vertebra Infective endocarditis Glaucoma Tobacco abuse Left carotid stenosis GERD (gastroesophageal reflux disease) Pulmonary nodule Cardiomyopathy Congestive heart failure Overweight (BMI 25.0-29.9) Carotid artery stenosis PVD (peripheral vascular disease) Dyslipidemia Hypertension CAD (coronary artery disease) Diabetic retinopathy associated with type 2 diabetes mellitus Diabetic polyneuropathy associated with type 2 diabetes mellitus CKD stage 3 due to type 2 diabetes mellitus Diabetic 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 diabetes mellitus 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 Surgical History Hx of shoulder surgery Hx of coronary artery bypass graft Hx of cataract removal with insertion of prosthetic lens Hx of tonsillectomy Hx of appendectomy Hx of arthroscopy of right knee Family History Father Stomach cancer Mother Diabetes Brother Prostate abscess Social History Household Members: Spouse Housing: Apartment Do you presently have visiting nurse or other home services: No Alcohol intake: never Patient Tobacco Use Status: Current everyday Tobacco user Tobacco use type: Cigarette Cigarette Packs Per Day: 0.25 Cigarettes Per Day: 3 Years Smoked: 65 e-Cigarette/Vaping Use: Never Used Second Hand Smoke Exposure: Yes Advance Directives Date on File: 06/08/21 service: No Current occupational status: 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 Cognitive needs: No Hearing needs: No Vision needs: No Review of Systems Const All systems reviewed & are unremarkable except as noted in HPI and below Physical Exam Extrem Other: Right hip:Incision well healed. No erythema or drainage. Mild discomfort with hip flexion and ROM. NVI. Results Reviewed Results Reviewed: Xrays were obtained in the office today and personally reviewed by me of the right hip show interval healing with intact hardware Assessment & Plan Assessment & Plan (1) Intertrochanteric fracture of right femur: Code(s): S72.141A - Displaced intertrochanteric fracture of right femur, initial encounter for closed fracture Qualifiers: Encounter type: initial encounter Fracture alignment: displaced Fracture type: closed Qualified Code(s): S72.141A - Displaced intertrochanteric fracture of right femur, initial encounter for closed fracture Plan He will continue working with physical therapy on gait training, strengthening and stretching. I reassured him that the discomfort that he is feeling is routine part of healing as the bone is still healing. I would like to see him back in 6 weeks with new x-rays, sooner if needed. Orders: Orders XR hip RT w PEL1V Today M25.559 - Pain in unspecified hip Patient Instructions: Scribed for Keny Wynn PA-C, by Garrett Portillo medical records administrator, on 01/30/2023 at 12:45 PM EST. I, Keny Wynn PA-C, have personally reviewed and agree with the information entered by the scribe. Coding Level of Care Code Global (91780) Diagnoses Closed displaced intertrochanteric fracture of right femur, initial encounter S72.141A Encounter type: initial encounter Fracture alignment: displaced Fracture type: closed
== END 2023-01-30 13:04 | disposition home or self-care (01) ==
PROVIDERS: PCP Internal Medicine; Visit Provider Physician Assistant
DX: S72.141A Displaced intertrochanteric fracture of right femur, initial encounter for closed fracture (principal)
CPT/HCPCS: 99024

== ENCOUNTER 2023-02-21 09:47 | Outpatient (AMB) | payer MEDICARE, SELFPAY ==
[2023-02-21 09:58] VITALS: BP 130/56; PULSE 70; O2SAT 98; BMI 29.5
--- NOTE | 2023-02-21 09:58 | MHC.PC.OV ---
Vital Signs 02/21/23 09:58 Height 5 ft 6 in Weight 183 lb BMI 29.5 BP 130/56 L Blood Pressure Location Lt brachial Position Sitting Pulse 70 Pulse Source Pulse Oximeter Pulse Oximetry (%) 98 Oxygen Delivery Method Room Air Intake Visit Reasons: DM Allergies furosemide Adverse Reaction (Intermediate, Verified 02/21/23 10:03) Dizziness Tobacco use date assessed: 02/21/23 Fall risk assessment: 1 Fall in past year Last assessed Fall Risk: 02/21/23 HPI DM HPI Details 77-year-old overweight male with multiple medical problems chronic kidney disease, coronary artery disease hypertension hypercholesterolemia peripheral vascular disease congestive heart failure GERD diabetes mellitus last seen in October 2022. Patient is here for follow-up. Review of the notes patient had a fall displaced intertrochanteric fracture of the right femur status post right hip nailing November 2022 presently on physical therapy admitted from a sitting position felt dizzy standing patient in the hospital did receive 2 units of packed RBC. Patient has been follow-up with Cardiology also 11/26/2022 was admitted also for an STEMI demand treated for congestive heart failure treated to for pneumonia at that time also. BP at home is good on 3 meds. [facility] Medical History Impacted cerumen of right ear Impacted cerumen of both ears Epidermoid cyst of skin of cheek Mass of face Allergic rhinitis Trigger finger, right middle finger Fracture of distal end of left radius with routine healing Superficial abrasion Pneumonia due to COVID-19 virus Acute hypoxemic respiratory failure due to COVID-19 Distal radius fracture, right Renal insufficiency Trigger finger, right middle finger Respiratory tract infection Aortic stenosis Preoperative clearance Iliac artery stenosis, 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 History of renal calculi Compression fracture of L1 lumbar vertebra Infective endocarditis Glaucoma Tobacco abuse Left carotid stenosis GERD (gastroesophageal reflux disease) Pulmonary nodule Cardiomyopathy Congestive heart failure Overweight (BMI 25.0-29.9) Carotid artery stenosis PVD (peripheral vascular disease) Dyslipidemia Hypertension CAD (coronary artery disease) Diabetic retinopathy associated with type 2 diabetes mellitus Diabetic polyneuropathy associated with type 2 diabetes mellitus CKD stage 3 due to type 2 diabetes mellitus Diabetic 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 diabetes mellitus FCI (current) use of insulin Surgical History Hx of shoulder surgery Hx of coronary artery bypass graft Hx of cataract removal with insertion of prosthetic lens Hx of tonsillectomy Hx of appendectomy Hx of arthroscopy of right knee Family History Father Stomach cancer Mother Diabetes Brother Prostate abscess Social History Household Members: Spouse Housing: Apartment Do you presently have visiting nurse or other home services: No Alcohol intake: never Patient Tobacco Use Status: Current everyday Tobacco user Tobacco use type: Cigarette Cigarette Packs Per Day: 0.25 Cigarettes Per Day: 3 Years Smoked: 65 e-Cigarette/Vaping Use: Never Used Second Hand Smoke Exposure: Yes Advance Directives Date on File: 06/08/21 service: No Current occupational status: 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 Cognitive needs: No Hearing needs: No Vision needs: No Questionnaire Thrive Questionnaire Date Thrive assessed: 12/09/22 AUDIT C Alcohol Use Questionnaire (AUDIT-C) 1. How often do you have a drink containing alcohol?: Never 2. How many drinks containing alcohol do you have on a typical day when you are drinking?: 1 or 2 (0) 3. How often do you have six or more drinks on one occasion?: Never Total Score: 0 THIERNO-7 AMB Questionnaire THIERNO-7 Date THIERNO - 7 assessed: 05/02/22 Source: Developed by Drs. Mendez Warren, Chelsea David, Kane Oakes and colleagues, with an educational charisse from [employer]. Physical exam (Primary Care) Vital Signs: Last Vital Signs Pulse 70 02/21/23 09:58 BP 130/56 L 02/21/23 09:58 Pulse Ox 98 02/21/23 09:58 Oxygen Delivery Method Room Air 02/21/23 09:58 BMI result Body Mass Index 29.5 Tobacco/Smoking Status: Tobacco use Status Tobacco use date assessed 02/21/23 02/21/23 10:04 Patient Tobacco Use Status Current everyday Tobacco 02/21/23 10:04 Tobacco use type Cigarette 02/21/23 10:04 e-Cigarette/Vaping Use Never Used 02/21/23 10:04 Thrive Assessment: Date of Thrive Assessment Date Thrive assessed 12/09/22 02/21/23 10:04 Const General: alert; No acute distress Eyes Conjunctivae: conjunctivae normal Resp Auscultation: clear to auscultation bilaterally Cardio Rate: regular rate Rhythm: regular rhythm GI Inspection: Yes normal to inspection Extrem General: Yes normal to inspection and No edema Results AMB Hemoglobin A1c AMB Hemoglobin A1c 9.2 % Last Edit by ALEX Robert on 02/21/23 10:09 Results Reviewed Results Reviewed: Laboratory Last Values Hgb A1c (Clinic) 9.2 % (4.0-6.0) H 02/21/23 09:50 Assessment and Plan Assessment & Plan (1) Intertrochanteric fracture of right femur: Comment: Status post IM nail November 2022 Code(s): S72.141A - Displaced intertrochanteric fracture of right femur, initial encounter for closed fracture Qualifiers: Encounter type: initial encounter Fracture alignment: displaced Fracture type: closed Qualified Code(s): S72.141A - Displaced intertrochanteric fracture of right femur, initial encounter for closed fracture Plan: Patient being followed up by Ortho, keep active (2) CAD (coronary artery disease): Code(s): I25.10 - Atherosclerotic heart disease of [place] coronary artery without angina pectoris Qualifiers: Coronary Disease-Associated Artery/Lesion type: [place] artery [place] vs. transplanted heart: [place] heart Associated angina: without angina Qualified Code(s): I25.10 - Atherosclerotic heart disease of [place] coronary artery without angina pectoris Plan: Control the cholesterol, weight, blood pressure, diabetes continue with aspirin (3) Hypertension: Code(s): I10 - Essential (primary) hypertension Qualifiers: Hypertension type: essential hypertension Qualified Code(s): I10 - Essential (primary) hypertension Plan: Continue with blood pressure medication. Decrease salt intake and exercise patient is on losartan 25 mg once a day metoprolol 25 mg once a day amlodipine 10 mg once a day (4) Dyslipidemia: Code(s): E78.5 - Hyperlipidemia, unspecified Plan: Continue with cholesterol medication LDL goal of less than 70 and triglyceride of less than 150 patient is on rosuvastatin 40 mg once a day (5) Congestive heart failure: Code(s): I50.9 - Heart failure, unspecified Qualifiers: Heart failure type: unspecified Heart failure chronicity: chronic Qualified Code(s): I50.9 - Heart failure, unspecified Plan: With daily continue with the diuretic (6) GERD (gastroesophageal reflux disease): Code(s): K21.9 - Gastro-esophageal reflux disease without esophagitis Qualifiers: Esophagitis presence: without esophagitis Qualified Code(s): K21.9 - Gastro-esophageal reflux disease without esophagitis Plan: Avoid the foods that causes that usually spicy foods, tomato products, juices, coffee, soda and foods that your sensitive to. After eating do not lie down, allow 3-4 hours before in lie down. And keep the head of bed above 30 degrees to avoid the acid from going up. (7) Type 2 diabetes mellitus with hyperglycemia: Code(s): E11.65 - Type 2 diabetes mellitus with hyperglycemia Plan: Decrease the amount of carbohydrate intake, pasta, bread, rice and potatoes are all sugar and that is aside from all the sweet stuff, remember that fruits are good but they are Sweet also. Hemoglobin A1c goal of less than 7.0 patient is taking Trulicity Orders: Orders AMB Hemoglobin A1c Today E11.65 - Type 2 diabetes mellitus with hyperglycemia Medications: Changed From dulaglutide (Trulicity) 1.5 mg subcut PONCE E11.65 - Type 2 diabetes mellitus with hyperglycemia To dulaglutide (Trulicity) 1.5 mg (0.5 mL) subcut QWEEK 30 days 2.5 mL 8RF E11.65 - Type 2 diabetes mellitus with hyperglycemia Coding Level of Care Code Est Pt Level 4 (89378) Diagnoses Closed displaced intertrochanteric fracture of right femur, initial encounter S72.141A Encounter type: initial encounter Fracture alignment: displaced Fracture type: closed Coronary artery disease involving [place] coronary artery of [place] heart without angina pectoris I25.10 Coronary Disease-Associated Artery/Lesion type: [place] artery [place] vs. transplanted heart: [place] heart Associated angina: without angina Essential hypertension I10 Hypertension type: essential hypertension Dyslipidemia E78.5 Chronic congestive heart failure, unspecified heart failure type I50.9 Heart failure type: unspecified Heart failure chronicity: chronic Gastroesophageal reflux disease without esophagitis K21.9 Esophagitis presence: without esophagitis Type 2 diabetes mellitus with hyperglycemia E11.65
== END 2023-02-21 11:06 | disposition home or self-care (01) ==
PROVIDERS: PCP Internal Medicine; Visit Provider Internal Medicine
DX: S72.141A Displaced intertrochanteric fracture of right femur, initial encounter for closed fracture (principal); I11.0 Hypertensive heart disease with heart failure; I50.9 Heart failure, unspecified; E11.65 Type 2 diabetes mellitus with hyperglycemia; I25.10 Atherosclerotic heart disease of native coronary artery without angina pectoris; E78.5 Hyperlipidemia, unspecified; K21.9 Gastro-esophageal reflux disease without esophagitis
CPT/HCPCS: 83036; 99214

== ENCOUNTER 2023-02-27 12:53 | Outpatient (RCR) | payer MEDICARE, SELFPAY | END 2023-03-03 17:00 | disposition home or self-care (01) | LOC: HO.WCC 12:53 | PROVIDERS: PCP Internal Medicine; Visit Provider Physician Assistant | DX: Z09 Encounter for follow-up examination after completed treatment for conditions other than malignant neoplasm (principal) ==

== ENCOUNTER → 2023-02-27 15:06 | Outpatient (REF) | payer MEDICARE, SELFPAY | LOC: HO.CARD 15:06 | PROVIDERS: PCP Internal Medicine; Visit Provider Nurse Practitioner Family | DX: Z13.89 Encounter for screening for other disorder (principal) ==

== ENCOUNTER 2023-03-02 18:57 | Inpatient (IN) | payer MEDICARE, SELFPAY ==
--- NOTE | 2023-03-02 | ECG_ITS ---
Test Reason : BRADYCARDIA Blood Pressure : / mmHG Vent. Rate : 072 BPM Atrial Rate : 072 BPM P-R Int : 144 ms QRS Dur : 094 ms QT Int : 434 ms P-R-T Axes : 054 -04 091 degrees QTc Int : 475 ms Sinus rhythm with frequent Premature ventricular complexes in a pattern of bigeminy Possible Inferior infarct (cited on or before 13-OCT-2013) Abnormal ECG When compared with ECG of 08-DEC-2022 19:39, Premature ventricular complexes are now Present T wave amplitude has increased in Anterior leads Referred By: Generic ED Physician Electronically Signed By:Lai Hudson
--- NOTE | ~2023-03-02 | XR_ITS ---
EXAMINATION: XR CHEST CLINICAL INFORMATION: Dyspnea COMPARISON: 12/10/2022 TECHNIQUE: Frontal view of the chest was obtained. FINDINGS: Sternal wires are in place. Multiple surgical clips. Cardiac silhouette is within normal limits in size. There are diffuse interstitial opacities throughout both lungs which are more pronounced as compared to prior. No focal airspace consolidation. Mild dependent atelectasis in the bases. No pneumothorax or effusion. Bones are osteopenic. 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 XR/XR chest 1V IMPRESSION: Increased interstitial opacities throughout both lungs as compared to prior, which could be due to pulmonary interstitial edema or a viral/atypical pneumonia.
--- NOTE | ~2023-03-02 | US_ITS ---
EXAMINATION: US VENOUS ULTRASOUND WITH DOPPLER LOWER EXTREMITY, BILATERAL CLINICAL INFORMATION: Edema. Swelling. COMPARISON: None available. TECHNIQUE: Ultrasound of the deep veins is performed from the hip to the calf with compression sonography and color and pulse Doppler assessment. Spectral analysis with color-flow imaging is performed. FINDINGS: RIGHT: There is normal venous compression and respiratory variation and augmented flow. The visualized common femoral vein, superficial femoral vein, profunda femoral vein, popliteal vein, and the trifurcation region shows no evidence of deep venous thrombosis. There is narrowing of the greater saphenous vein at the junction with the superficial femoral vein. There is no significant popliteal fossa cyst. LEFT: There is normal venous compression and respiratory variation and augmented flow. The visualized common femoral vein, superficial femoral vein, profunda femoral vein, popliteal vein, and the trifurcation region shows no evidence of deep venous thrombosis. There is no significant popliteal fossa cyst. If the patient's symptoms persist, followup ultrasound in 5 days 7 days might be of value to exclude proximal propagation from a non-visualized calf vein. US/US venous duplex LE BI IMPRESSION: No DVT demonstrated in the bilateral lower extremity.
[2023-03-02 19:20] VITALS: BP 130/42; BP 139/35; PULSE 38; PULSE 73; RESP 20; O2SAT 96; O2SAT 98; BMI 25.8
[2023-03-02 19:24] LABS: Basophils Absolute Auto 0.1 X10*3/uL (0.0-0.2); Basophils Percent Auto 0.8 % (0-2); Eosinophils Absolute Auto 0.4 X10*3/uL (0.0-0.4); Eosinophils Percent Auto 4.1 % (0-4); Hematocrit 29.4 % (42.0-52.0); Imm Gran Abs Auto 0.02 X10*3/uL (0.00-0.03); Imm Gran Pct Auto 0.2 % (0.0-0.4); Lymphocytes Absolute Auto 2.9 X10*3/uL (1.2-4.9); MANUAL DIFF FLAG NO; Mean Corpuscular Hemoglobin 31.8 pg (27.0-33.0); Mean Corpuscular Volume 93.6 fL (80.0-98.0); Mean Platelet Volume 10.5 fL (9.4-12.4); Monocytes Absolute Auto 1.1 X10*3/uL (0.1-1.2); Monocytes Percent Auto 11.5 % (2-11); Neutrophils Absolute Auto 4.9 x10*3/uL (2.0-8.3); Neutrophils Percent Auto 52.4 % (45-73); Platelet Count 163 X10*3/uL (160-400); Red Blood Count 3.14 X10*6/uL (4.60-5.80); Red Cell Distribution Width 13.8 % (11.0-16.0); White Blood Count 9.3 X10*3/uL (4.8-10.8)
[2023-03-02 19:25] VITALS: BP 139/35; PULSE 37; RESP 17; TEMP 36.6; O2SAT 98
--- NOTE | 2023-03-02 19:26 | PC.NURSE ---
Pt presented to ED after family reports him Not feeling well. Pt told EMS that he was feeling fine but family stated otherwise. EMS was unable to explain why family was concerned. Pt had right hip surgery 6 weeks ago and is still reporting pain and difficulty ambulating. Pt normally walks with a walker at baseline. Pt was found to be 88% on RA and HR 37. EMS placed pt on 6 LPM via NC and O2 increased to high 90's. Pt denies chest pain, endorses dizziness and feeling short of breath. Placed a 20g IV in the left AC, labs drawn and sent. EKG obtained and read by Dr Larson. Pt attached to boring inspector and waiting ED provider at this time.
[2023-03-02 19:34] LABS: Lactic Acid 0.9 mmol/L (0.5-2.0)
[2023-03-02] MEDS: Calcium Gluconate/NaCl,Iso-Osm 2 GM/100 ML PLAST..BAG IV (19:35)
--- NOTE | 2023-03-02 19:35 | ED_ITS ---
HPI - General Adult General Chief complaint: General Medical Stated complaint: ? sepsis Time Seen by Provider: 03/02/23 19:25 Source: patient and old records reviewed Mode of arrival: EMS Limitations: no limitations History of Present Illness HPI narrative: 77yo male with PMH of anemia, depression, CKD, DM, CHF with preserved EF, CAD, HTN, HLD, PVD, moderate aortic valve stenosis, s/p R hip IMN on 12/10 sp fall for intertrochanteric fracture, takes metoprolol for hx of NSVT, pneumonia hx as well. He is not on a blood thinner. He notes one week of dyspnea, orthopnea cannot lie flat,increased edema of the legs. He has a dry cough. He feels weak and dizzy. He reports compliance with medications. He has no chest pain. He feels tired. No increase in metoprolol. Was found hypoxic by EMS 87%. States he is on 40mg lasix daily right now. MD complaint: weakness, dizziness, orthopnea, edema Onset (ago): week(s) (1) Location: chest, left, right and lower extremity Radiation: non-radiation Severity: moderate Relieving factors: rest Exacerbating factors: movement and other (laying flat) Associated symptoms: shortness of breath and weakness Treatments prior to arrival: none Related Data Home Medications Medication Instructions Recorded Confirmed ascorbic acid (vitamin C) 500 mg 500 mg PO BEDTIME 06/07/21 12/09/22 tablet dorzolamide 22.3 mg-timolol 6.8 1 drp ophthalmic (eye) BID 06/07/21 12/09/22 mg/mL eye drops guselkumab 100 mg/mL subcutaneous mg subcut 06/07/21 11/26/22 auto-injector (Tremfya) multivitamin 1 tab PO BEDTIME 06/07/21 12/09/22 amlodipine 10 mg tablet 10 mg PO BEDTIME 12/09/22 12/09/22 aspirin 81 mg tablet,delayed 81 mg PO BEDTIME 12/09/22 12/09/22 release brimonidine 0.15 % eye drops 1 drp ophthalmic (eye) BID 12/09/22 12/09/22 cholecalciferol (vitamin D3) 25 25 mcg PO BEDTIME 12/09/22 12/09/22 mcg (1,000 unit) tablet furosemide 20 mg tablet 20 mg PO BEDTIME 12/09/22 12/09/22 insulin degludec 100 unit/mL (3 20 unit subcut BEDTIME 12/09/22 12/09/22 mL) subcutaneous pen insulin lispro 100 unit/mL 10 unit subcut TID 12/09/22 12/09/22 subcutaneous pen (Humalog KwikPen (U-100) Insulin) losartan 25 mg tablet 25 mg PO BEDTIME 12/09/22 12/09/22 metoprolol succinate 25 mg 25 mg PO BEDTIME 12/09/22 12/09/22 tablet,extended release 24 hr rosuvastatin 40 mg tablet 40 mg PO BEDTIME 12/09/22 12/09/22 Previous Rx's Medication Instructions Recorded acetaminophen 500 mg tablet 500 mg PO Q6H PRN pain or fever 01/30/21 (Tylenol Extra Strength) #20 tabs pen needle, diabetic 32 gauge x #400 ea 10/19/21 (BD Martina 2nd Gen Pen Needle) blood sugar diagnostic (FreeStyle #150 ea 08/05/22 Lite Strips) 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 meter (FreeStyle #1 ea 08/05/22 Tracy Lite kit) lancets 28 gauge (FreeStyle #100 ea 08/05/22 Lancets) gabapentin 300 mg capsule 300 mg PO BEDTIME #90 caps 11/21/22 acetaminophen 325 mg tablet 650 mg (2 x 325 mg) PO TID #60 tabs 12/17/22 docusate sodium 100 mg capsule 200 mg (2 x 100 mg) PO DAILY #30 12/17/22 caps oxycodone 5 mg tablet 5 mg PO Q6H PRN Pain, 12/17/22 Moderate(Pain Scale 4-6) #14 tabs polyethylene glycol 3350 17 gram 17 g PO DAILY #30 ea 12/17/22 oral powder packet tamsulosin 0.4 mg capsule 0.4 mg PO BEDTIME #30 caps 12/18/22 hospital bed #1 ea 01/02/23 HOSPITAL BED #1 ea 01/07/23 dulaglutide 1.5 mg/0.5 mL 1.5 mg (0.5 mL) subcut QWEEK 30 02/21/23 subcutaneous pen injector days #2.5 mL (Trulicity) Allergies Allergy/AdvReac Type Severity Reaction Status Date / Time furosemide AdvReac Intermediate Dizziness Verified 02/21/23 10:03 Review of Systems 2 Review of Systems: Constitutional : No Fever, No Chills, pos fatigue ENT/Mouth : No sore throat, No Rhinorrhea, No Swallowing Difficulty Eyes: No Eye Pain, No Swelling, No Redness Cardiovascular : No Chest Pain, positive SOB, pos Orthopnea, positive Edema Respiratory : pos Cough, No Sputum, No Wheezing, positive dyspnea Gastrointestinal : No Nausea, No Vomiting, No Diarrhea, No abdominal Pain, No Hematochezia, No Melena Genitourinary : No Dysuria, No Urinary Frequency, No Hematuria Musculoskeletal : No joint pain, No Myalgias Skin : No Skin Lesions, No rash Neuro : No Weakness, No Numbness, No Dizziness, No Headache Psych : No Anxiety/Panic, No Depression Heme/Lymph: No Bruising, No Lymphadenopathy Endocrine : No Polyuria, No Polydipsia All other systems reviewed and are negative PMFSH Past Medical History Attestation statement: The following information was validated with the patient. Source: old records reviewed Medical History Impacted cerumen of right ear Impacted cerumen of both ears Epidermoid cyst of skin of cheek Mass of face Allergic rhinitis Trigger finger, right middle finger Fracture of distal end of left radius with routine healing Superficial abrasion Pneumonia due to COVID-19 virus Acute hypoxemic respiratory failure due to COVID-19 Distal radius fracture, right Renal insufficiency Trigger finger, right middle finger Respiratory tract infection Aortic stenosis Preoperative clearance Iliac artery stenosis, 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 History of renal calculi Compression fracture of L1 lumbar vertebra Infective endocarditis Glaucoma Tobacco abuse Left carotid stenosis GERD (gastroesophageal reflux disease) Pulmonary nodule Cardiomyopathy Congestive heart failure Overweight (BMI 25.0-29.9) Carotid artery stenosis PVD (peripheral vascular disease) Dyslipidemia Hypertension CAD (coronary artery disease) Diabetic retinopathy associated with type 2 diabetes mellitus Diabetic polyneuropathy associated with type 2 diabetes mellitus CKD stage 3 due to type 2 diabetes mellitus Diabetic 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 diabetes mellitus 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 Surgical History Hx of shoulder surgery Hx of coronary artery bypass graft Hx of cataract removal with insertion of prosthetic lens Hx of tonsillectomy Hx of appendectomy Hx of arthroscopy of right knee Family History Family History Father Stomach cancer Mother Diabetes Brother Prostate abscess Social History Social History Household Members: Spouse Housing: Apartment Do you presently have visiting nurse or other home services: No Alcohol intake: never Patient Tobacco Use Status: Current everyday Tobacco user Tobacco use type: Cigarette Cigarette Packs Per Day: 0.25 Cigarettes Per Day: 3 Years Smoked: 65 Smoked in Last 30 Days: Yes e-Cigarette/Vaping Use: Never Used Second Hand Smoke Exposure: Yes Use of substances other than those prescribed or required for medical reasons: No Advance Directives: Yes Advance Directives on File: Yes Advance Directives Date on File: 06/08/21 service: No Current occupational status: 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 Cognitive needs: No Hearing needs: No Vision needs: No Physical Exam ED Vital Signs: Vital Signs - 24 hr 03/02/23 19:20 03/02/23 19:25 03/02/23 20:00 Temperature 97.9 F Pulse Rate 73 37 L 74 Respiratory Rate 20 17 21 H Blood Pressure 139/35 L 139/35 L 139/49 L Pulse Oximetry 98 98 99 Oxygen Delivery Method Room Air Nasal Cannula Nasal Cannula Oxygen Flow Rate 6 4 BMI result Body Mass Index 25.8 Appearance: Alert. Oriented X3. No acute distress. Eyes: Pupils equal, round and reactive to light. ENT: Pharynx normal. Neck: Normal inspection. Neck supple. + JVD CVS: bradycardic not perfusing PVCs Pulses normal. Respiratory: No respiratory distress. Breath sounds rales both bases. Abdomen: Soft and nontender. Skin: Skin warm and dry. pale skin color. Normal skin turgor. Extremities: 1+ pitting lower extremity edema. No calf ttp Neuro: Oriented X 3. No motor deficit. No sensory deficit. Course Course Course Narrative: out of bigeminy while calcium is infusing, given lasix. Medications Administered Discontinued Medications Generic Name Dose Route Start Last Admin Trade Name Freq PRN Reason Stop Dose Admin Furosemide 20 mg 03/02/23 20:01 03/02/23 20:44 Furosemide 20 Mg/2 Ml Vial IVPUSH 03/02/23 20:02 20 mg ONCE ONE Administration Protocol Calcium Gluconate 2 gm in 100 mls @ 50 mls/hr 03/02/23 19:29 03/02/23 21:31 Calcium Gluconate IV 03/02/23 21:28 Infused ONCE ONE Infusion Medical Decision Making Medical Decision Making [facility] Narrative: 77yo male with PMH of anemia, depression, CKD, DM, CHF with preserved EF, CAD, HTN, HLD, PVD, moderate aortic valve stenosis, s/p R hip IMN on 12/10 sp fall for intertrochanteric fracture here with MCCONNELL, orthopnea, LE edema, bigeminy with HR in 30s and rales on exam - at this time he is clinically in volume overload but also bradycardic had normal EF back in November pre-op - at this time given HR will hold his metoprolol, give lose dose lasix, IV calcium and monitor - labs and lytes, TSH, CXR and DVT study ordered. Seems CHF and not infectious or VTE related at this time. Differential Diagnosis Differential Diagnoses: The differential diagnosis associated with the presentation includes CHF, bradycardia Admission/Observation Consideration of admission/observation: Escalation of care including admission/observation considered will admit for further monitoring Consult Healthcare Provider Management of the patient was discussed with: Hospitalist (will admit) Lab Data [facility] Lab Attestation statement: I reviewed the patient's lab results. 03/02/23 19:18 03/02/23 19:18 Labs: Lab Results 03/02/23 03/02/23 Range/Units 19:18 20:24 WBC 9.3 (4.8-10.8) X10*3/uL RBC 3.14 L (4.60-5.80) X10*6/uL Hgb 10.0 L (14.0-18.0) g/dl Hct 29.4 L (42.0-52.0) % MCV 93.6 (80.0-98.0) fL MCH 31.8 (27.0-33.0) pg MCHC 34.0 (31.0-36.0) g/dl RDW 13.8 (11.0-16.0) % Plt Count 163 (160-400) X10*3/uL MPV 10.5 (9.4-12.4) fL Immature Gran % (Auto) 0.2 (0.0-0.4) % Neut % (Auto) 52.4 (45-73) % Lymph % (Auto) 31.0 (20-40) % [place] % (Auto) 11.5 H (2-11) % Eos % (Auto) 4.1 H (0-4) % Baso % (Auto) 0.8 (0-2) % Lymph # (Auto) 2.9 (1.2-4.9) X10*3/uL [place] # (Auto) 1.1 (0.1-1.2) X10*3/uL Eos # (Auto) 0.4 (0.0-0.4) X10*3/uL Baso # (Auto) 0.1 (0.0-0.2) X10*3/uL Abs Immat Gran (auto) 0.02 (0.00-0.03) X10*3/uL Absolute Neuts (auto) 4.9 (2.0-8.3) x10*3/uL Absolute Nucleated RBC 0.000 (0.0-0.012) X10*3/uL Nucleated RBC % (auto) 0.0 (0.0-0.2) /100WBC Sodium 140 (135-145) mmol/L Potassium 4.4 D (3.3-5.1) mmol/L Chloride 109 H (96-108) mmol/L Carbon Dioxide 24 (22-29) mmol/L Anion Gap 11 L (12-20) BUN 44 H (9-16) mg/dL Creatinine 1.75 H (0.5-1.4) mg/dL Estim Creat Clear Calc 32.5 Estimated GFR 38 Random Glucose 167 H (60-115) mg/dL Lactic Acid 0.9 (0.5-2.0) mmol/L Calcium 9.1 D (8.4-10.2) mg/dL Magnesium 1.9 (1.6-2.6) mg/dL Total Bilirubin 0.3 (0.0-1.0) mg/dL AST 18 (5-37) U/L ALT 19 (0-40) U/L Alkaline Phosphatase 109 (39-117) U/L Troponin I High Sens 13.0 D (<3.5-35.0) ng/L B-Natriuretic Peptide 1222 H (<100) pg/mL Total Protein 7.1 (6.5-8.0) g/dL Albumin 3.6 (3.5-5.0) g/dL TSH 2.32 (0.32-4.0) uIU/mL Influenza Type A (PCR) NEGATIVE (Negative) Influenza Type B (PCR) NEGATIVE (Negative) RSV RNA Qual (PCR) NEGATIVE (Negative) SARS-CoV-2 RNA (RT-PCR) NEGATIVE (Negative) Independent Interpretation I performed an independent interpretation of an: EKG, Plain X-Ray (edema) and Ultrasound (no DVT) Interpretation: Rate: 72 but rate in 30s Rhythm: sinus bradycardia in a pattern of bigeminy Thornton: normal Normal P waves. Normal ANURAG. Normal QRS complex. ST T wave : no ALESSANDRA, normal qTC: normal prior studies: no acute ischemia The study has been interpreted contemporaneously by me. . Radiology Impression Discussion of test interpretation with radiology: I have reviewed the radiologist's reading. Independent Historian Clinical information obtained from an independent historian. History obtained from or confirmed by: EMS and Other (family) External Record Review External record reviewed: Inpatient record and Prior outpatient labs Discharge Plan Discharge Clinical Impression: Bigeminal rhythm, DEAN (acute kidney injury), Bilateral edema of lower extremity, Hypoxia CHF (congestive heart failure) Qualifiers: Heart failure type: unspecified Heart failure chronicity: acute on chronic Q ualified Code(s): I50.9 - Heart failure, unspecified Patient Disposition: Admitted As Inpatient
[2023-03-02 19:49] LABS: Magnesium 1.9 mg/dL (1.6-2.6)
[2023-03-02 19:59] LABS: B Type Natriuretic Peptide 1222 pg/mL (<100)
[2023-03-02 20:00] VITALS: BP 139/49; PULSE 74; RESP 21; O2SAT 99
[2023-03-02 20:07] LABS: Alanine Aminotransferase 19 U/L (0-40); Albumin Level 3.6 g/dL (3.5-5.0); Alkaline Phosphatase 109 U/L (39-117); Anion Gap 11 (12-20); Aspartate Amino Transferase 18 U/L (5-37); Bilirubin Total 0.3 mg/dL (0.0-1.0); Blood Urea Nitrogen 44 mg/dL (9-16); Calcium 9.1 mg/dL (8.4-10.2); Carbon Dioxide 24 mmol/L (22-29); Chloride 109 mmol/L (96-108); Creatinine Clr Calc Pharmacy 32.5; Estimated Glomerular Filt Rate 38; Glucose Random 167 mg/dL (60-115); Potassium 4.4 mmol/L (3.3-5.1); Sodium 140 mmol/L (135-145); Total Protein 7.1 g/dL (6.5-8.0)
[2023-03-02 20:11] LABS: TSH reflex Free T4 2.32 uIU/mL (0.32-4.0)
[2023-03-02] MEDS: Furosemide 20 MG/2 ML VIAL IVPUSH (20:44)
[2023-03-02 21:30] LABS: Influenza A PCR NEGATIVE (Negative); Influenza B PCR NEGATIVE (Negative); Resp Syncy Virus RNA Qual PCR NEGATIVE (Negative); SARS COV2 PCR INHOUSE NEGATIVE (Negative)
--- NOTE | 2023-03-03 | ECG_ITS ---
Test Reason : follow up sinus bradycardia Blood Pressure : / mmHG Vent. Rate : 081 BPM Atrial Rate : 081 BPM P-R Int : 132 ms QRS Dur : 098 ms QT Int : 492 ms P-R-T Axes : 051 -05 092 degrees QTc Int : 571 ms Sinus rhythm with frequent Premature ventricular complexes Nonspecific T wave abnormality Prolonged QT Abnormal ECG When compared with ECG of 02-MAR-2023 19:20, QT has lengthened Referred By: Marcelo Barrios Electronically Signed By:Lai Hudson
--- NOTE | 2023-03-03 01:10 | PM.IMHP ---
History of Present Illness Date of Service: 03/03/23 Attending physician on admission: Marcelo Barrios Chief Complaint: Shortness of breath for unknow duration This is a 77-year-old male who unfortunately is a poor historian and who has past medical history of diastolic congestive heart failure, type 2 diabetes mellitus, hypertension, glaucoma, anemia, plaque psoriasis, chronic kidney disease and is status post recent right total hip arthroplasty who presents to the emergency room from home via EMS for evaluation after his family called EMS and reported that patient was 'feeling unwell'. However when paramedics arrived at scene, he informed them that he felt fine but that his family was concerned about him. Initial evaluation by EMS at scene revealed mild hypoxemia with oxygen saturation of 87% on room airn and so he was started on supplemental Oxygen. On arrival to the ED, he was noted to be bradycardic with heart rate of 30 bpm for which he received IV calcium with improvement. On my interview, he reported having a dry cough, exertional shortness of breath and feeling unusually weak and at times dizzy. He however denied any associated chest pains or palpitations and initial EKG done showed sinus bradcycardia at 36 bpm. Blood work done revealed elevated BNP at 1222 pg/ml and mild renal insufficiency with a BUN of 44 and creatinine of 1.75 (was 35 and 1.15 respectively in November 2022). His HSTnI was normal. A working diagnosis of CHF exacerbation and sinus bradycardia was made and admission was requested for continued care. Review of Systems Review of Systems: Yes all other systems are reviewed and are negative [facility] Medical History (Updated 03/03/23 @ 02:11 by Marcelo Barrios MD) Impacted cerumen of both ears Epidermoid cyst of skin of cheek Mass of face Allergic rhinitis Trigger finger, right middle finger Fracture of distal end of left radius with routine healing Superficial abrasion Pneumonia due to COVID-19 virus Acute hypoxemic respiratory failure due to COVID-19 Distal radius fracture, right Renal insufficiency Trigger finger, right middle finger Respiratory tract infection Aortic stenosis Preoperative clearance Iliac artery stenosis, 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 History of renal calculi Compression fracture of L1 lumbar vertebra Infective endocarditis Glaucoma Tobacco abuse Left carotid stenosis GERD (gastroesophageal reflux disease) Pulmonary nodule Cardiomyopathy Congestive heart failure Overweight (BMI 25.0-29.9) Carotid artery stenosis PVD (peripheral vascular disease) Dyslipidemia Hypertension CAD (coronary artery disease) Diabetic retinopathy associated with type 2 diabetes mellitus Diabetic polyneuropathy associated with type 2 diabetes mellitus CKD stage 3 due to type 2 diabetes mellitus 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 Family History Father Stomach cancer Mother Diabetes Brother Prostate abscess Surgical History Hx of shoulder surgery Hx of coronary artery bypass graft Hx of cataract removal with insertion of prosthetic lens Hx of tonsillectomy Hx of appendectomy Hx of arthroscopy of right knee Social History Household Members: Spouse Housing: Apartment Do you presently have visiting nurse or other home services: No Alcohol intake: never Patient Tobacco Use Status: Current everyday Tobacco user Tobacco use type: Cigarette Cigarette Packs Per Day: 0.25 Cigarettes Per Day: 3 Years Smoked: 65 Smoked in Last 30 Days: Yes e-Cigarette/Vaping Use: Never Used Second Hand Smoke Exposure: Yes Use of substances other than those prescribed or required for medical reasons: No Advance Directives: Yes Advance Directives on File: Yes Advance Directives Date on File: 06/08/21 service: No Current occupational status: 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 Cognitive needs: No Hearing needs: No Vision needs: No Meds Allergies Allergy/AdvReac Type Severity Reaction Status Date / Time furosemide AdvReac Intermediate Dizziness Verified 02/21/23 10:03 Home Medications Medication Instructions Recorded Confirmed Last Taken Type ascorbic acid (vitamin C) 500 mg 500 mg PO BEDTIME 06/07/21 03/03/23 03/02/23 History tablet dorzolamide 22.3 mg-timolol 6.8 1 drp ophthalmic (eye) BID 06/07/21 03/03/23 03/02/23 History mg/mL eye drops guselkumab 100 mg/mL subcutaneous mg subcut 06/07/21 11/26/22 03/02/23 History auto-injector (Tremfya) multivitamin 1 tab PO BEDTIME 06/07/21 03/03/23 03/02/23 History amlodipine 10 mg tablet 10 mg PO BEDTIME 12/09/22 03/03/23 03/02/23 History aspirin 81 mg tablet,delayed 81 mg PO BEDTIME 12/09/22 03/03/23 03/02/23 History release brimonidine 0.15 % eye drops 1 drp ophthalmic (eye) BID 12/09/22 03/03/23 03/02/23 History cholecalciferol (vitamin D3) 25 25 mcg PO BEDTIME 12/09/22 03/03/23 03/02/23 History mcg (1,000 unit) tablet furosemide 20 mg tablet 20 mg PO BEDTIME 12/09/22 03/03/23 03/02/23 History insulin degludec 100 unit/mL (3 20 unit subcut BEDTIME 12/09/22 03/03/23 03/02/23 History mL) subcutaneous pen insulin lispro 100 unit/mL 10 unit subcut TID 12/09/22 03/03/23 03/02/23 History subcutaneous pen (Humalog KwikPen (U-100) Insulin) losartan 25 mg tablet 25 mg PO BEDTIME 12/09/22 03/03/23 03/02/23 History metoprolol succinate 25 mg 25 mg PO BEDTIME 12/09/22 03/03/23 03/02/23 History tablet,extended release 24 hr rosuvastatin 40 mg tablet 40 mg PO BEDTIME 12/09/22 03/03/23 03/02/23 History collagenase clostridium histo. 250 topical DAILY 03/03/23 03/02/23 History unit/gram topical ointment (Santyl) dulaglutide 1.5 mg/0.5 mL 1.5 mg subcut QWEEK 03/03/23 03/03/23 03/02/23 History subcutaneous pen injector (Trulicity) Physical Exam Vital Signs and Narrative: Vital Signs: Last Vital Signs Temp 97.9 F 03/02/23 19:25 Pulse 74 03/02/23 20:00 Resp 21 H 03/02/23 20:00 BP 139/49 L 03/02/23 20:00 Pulse Ox 99 03/02/23 20:00 O2 Del Method Nasal Cannula 03/02/23 20:00 O2 Flow Rate 4 03/02/23 20:00 BMI result Body Mass Index 25.8 General: Well nourished. Awake, alert and oriented x 4. No apparent distress Eyes: No pallor or jaundice. PERRLA, EOMI HENT: Moist oral mucus membranes. No oropharyngeal lesions. Neck: Supple. No cervical adenopathy. No JVD Cardiovascular: Regular rate and rhythm. Normal heart sounds. No murmurs, rubs or gallops. No JVD. Trace bipedal pitting edema. Respiratory: Normal respiratory effort with no accessory muscle use. Good bilateral breath sounds. Gastrointestinal: Abdomen is soft, non-tender, non-distended. Normoactive bowel sounds. No hepatosplenomegaly Extremities: No edema. No calf tenderness. Good peripheral pulses Skin - Warm/Dry. No rashes. No mottling. Capillary refill is < 2 seconds Neurological: AAOx4. Intact speech & cognition. Normal gait & balance. CN II - XII grossly intact but not individually tested. No motor or sensory deficits Hematologic: No bleeding. No ecchymosis. No swollen or tender lymph nodes. Psychiatric: Cooperative. Appropriate mood and affect Results Labs 03/02/23 19:18 03/02/23 19:18 Labs: Laboratory Results - last 24 hr 03/02/23 03/02/23 19:18 20:24 MCV 93.6 MCH 31.8 MCHC 34.0 RDW 13.8 Plt Count 163 MPV 10.5 Immature Gran % (Auto) 0.2 Neut % (Auto) 52.4 Lymph % (Auto) 31.0 Bates % (Auto) 11.5 H Eos % (Auto) 4.1 H Baso % (Auto) 0.8 Lymph # (Auto) 2.9 Bates # (Auto) 1.1 Eos # (Auto) 0.4 Baso # (Auto) 0.1 Abs Immat Gran (auto) 0.02 Absolute Neuts (auto) 4.9 Absolute Nucleated RBC 0.000 Nucleated RBC % (auto) 0.0 Anion Gap 11 L Estim Creat Clear Calc 32.5 Estimated GFR 38 Random Glucose 167 H Lactic Acid 0.9 Calcium 9.1 D Magnesium 1.9 Total Bilirubin 0.3 AST 18 ALT 19 Alkaline Phosphatase 109 B-Natriuretic Peptide 1222 H Total Protein 7.1 Albumin 3.6 TSH 2.32 Influenza Type A (PCR) NEGATIVE Influenza Type B (PCR) NEGATIVE RSV RNA Qual (PCR) NEGATIVE SARS-CoV-2 RNA (RT-PCR) NEGATIVE BNP => 1222 Imaging Radiologist's Impressions: Impressions Chest X-Ray 03/02/23 20:56 IMPRESSION: Increased interstitial opacities throughout both lungs as compared to prior, which could be due to pulmonary interstitial edema or a viral/atypical pneumonia. Venous Duplex 03/02/23 21:35 IMPRESSION: No DVT demonstrated in the bilateral lower extremity. Assessment and Plan (1) CHF (congestive heart failure): Qualifiers: Heart failure chronicity: acute on chronic Heart failure type: unspecified Qualified Code(s): I50.9 - Heart failure, unspecified Status: Acute (2) Sinus bradycardia: Status: Acute (3) Hypoxia: Status: Acute (4) DEAN (acute kidney injury): Status: Acute Plan 77-year-old male with past medical history of diastolic congestive heart failure, type 2 diabetes mellitus, hypertension, glaucoma, anemia, chronic kidney disease and s/p recent right total hip arthroplasty here with 1. Acute on chronic diastolic congestive heart failure - admit and gently diuress - closely monitor daily weights, renal function and electrolytes - 2 D echo for LVEF 2. Sinus bradycardia - hold Metoprolol Succinate 3. Hypoxemia - likely due to mild CHF - gently diuress - closely monitor 3. Acute renal failure - noted with mild kidney injury with serum creatinine up to 1.75 from 1.15 during last hospitalization in Nov 2022 - closely monitor renal unction and electrolytes while on diuretic. 4. Type 2 Diabetes Mellitus - on Trulicity and Insulin Degludec - closely monitor blood sugars 5. Hyperlipidemia - resume Rosuvastatin 6. Hypertension - resume Losartan & Amlodipine - Hold Metoprolol due to Bradycardia 7. Glaucoma - resume Brimonidine and Dorzolamide Total time managing care of this patient today: 75 minutes. Quality Stroke Does the patient have a stroke diagnosis?: No VTE Prior VTE?: No VTE Risk Level:: Medical - moderate - high VTE Device Contraindication: N/A - Device Ordered VTE Drug Contraindication: N/A - Med Ordered
[2023-03-03] MEDS: Enoxaparin Sodium 40 MG/0.4 ML SYRINGE SUBCUT (01:30)
[2023-03-03 05:32] LABS: MANUAL DIFF FLAG NO
[2023-03-03 05:34] LABS: Basophils Absolute Auto 0.1 X10*3/uL (0.0-0.2); Basophils Percent Auto 0.7 % (0-2); Eosinophils Absolute Auto 0.5 X10*3/uL (0.0-0.4); Eosinophils Percent Auto 5.1 % (0-4); Hematocrit 32.7 % (42.0-52.0); Hemoglobin 10.8 g/dl (14.0-18.0); Imm Gran Abs Auto 0.03 X10*3/uL (0.00-0.03); Imm Gran Pct Auto 0.3 % (0.0-0.4); Lymphocytes Absolute Auto 3.1 X10*3/uL (1.2-4.9); Lymphocytes Percent Auto 33.6 % (20-40); Mean Corpuscular Hemoglobin 31.6 pg (27.0-33.0); Mean Corpuscular Volume 95.6 fL (80.0-98.0); Mean Platelet Volume 10.6 fL (9.4-12.4); Monocytes Absolute Auto 0.9 X10*3/uL (0.1-1.2); Monocytes Percent Auto 9.7 % (2-11); Neutrophils Absolute Auto 4.6 x10*3/uL (2.0-8.3); Neutrophils Percent Auto 50.6 % (45-73); Platelet Count 184 X10*3/uL (160-400); Red Blood Count 3.42 X10*6/uL (4.60-5.80); Red Cell Distribution Width 13.6 % (11.0-16.0); White Blood Count 9.1 X10*3/uL (4.8-10.8)
--- NOTE | 2023-03-03 05:51 | PC.NURSE ---
Pt asleep at this time. VSS. Med rec completed with pharmacy records.
[2023-03-03 05:52] LABS: Anion Gap 17 (12-20); Blood Urea Nitrogen 38 mg/dL (9-16); Carbon Dioxide 23 mmol/L (22-29); Chloride 110 mmol/L (96-108); Creatinine Clr Calc Pharmacy 36.9; Estimated Glomerular Filt Rate 44; Glucose Random 180 mg/dL (60-115); Potassium 5.3 mmol/L (3.3-5.1); Sodium 145 mmol/L (135-145)
--- NOTE | 2023-03-03 07:00 | PC.NURSE ---
Assumed care of pt at this time.
[2023-03-03 07:34] VITALS: BP 141/60; PULSE 76; RESP 16; TEMP 36.8; O2SAT 96
--- NOTE | 2023-03-03 07:36 | PC.NURSE ---
Delayed admin of kelct- waiting for pharmacy verification; No diet order in place for pt- provider notified; Diabetic cardiac diet placed for pt.
--- NOTE | 2023-03-03 07:42 | PC.NURSE ---
Kitchen called to verify delivery of breakfast tray.
[2023-03-03 08:05] VITALS: BP 146/46; PULSE 80; RESP 15; O2SAT 95
--- NOTE | 2023-03-03 08:44 | PC.NURSE ---
This fiction writer went into room as PA was in room with patient who had vomited all over the floor. Stated his stomach all of a sudden did not feel good and the second he ate/drank it all just came back up. Food removed from patient room, pt stated he is feeling a little better at this time.
--- NOTE | 2023-03-03 09:39 | MHC.CM.PN ---
PATIENT LIVES WITH /HCP (COPY ON FILE AND VERIFIED) AND USES A WALKER WHEN NEEDED. HE HAD A RECENT HIP SURGERY AND WAS DC TO [facility] FOR REHAB. CASE MANAGEMENT AWAITING FOR CALL BACK FROM DAUGHTER, TRAVIS. VISITING NURSE AND P.T. HAVE BEEN ACTIVE IN THE HOME VISITING NURSE IS THROUGH [facility]. , CAROL ANN, IS UNABLE TO REMEMBER THE NAME OF P.T. 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 CASE MANAGEMENT FOLLOWING FOR DC PLANS. IMM 03/03 PLACED IN CHART
--- NOTE | 2023-03-03 10:51 | PC.NURSE ---
Phone call to pharmacy in regard to unverified medication; med rec needs to be completed by pharmacist first- pharmacist will be down to speak with pt for completion of med rec.
--- NOTE | 2023-03-03 12:39 | MHC.CM.PN ---
PATIENT IS ACTIVE WITH [facility]. TRANSFER SUMMARY REPORT UPLOADED INTO [facility]. REFERRAL PLACED TO [facility] TO FOLLOW.
--- NOTE | 2023-03-03 13:55 | PHA.MEDREC ---
Pharmacy Consult ? Medication Reconciliation Pharmacy has completed the medication reconciliation. Received med list from Franchesca WADDELL ([facility]) but it's not updated, used pharmacy fill history, called Abigail a few times to double check on insulin doses and otc medications but had to leave voicemail.
[2023-03-03] MEDS: 0.9 % Sodium Chloride Flush 3 ML SYRINGE IVFLUSH (15:04)
[2023-03-03 15:05] VITALS: BP 139/50; PULSE 84; RESP 20; O2SAT 95
--- NOTE | 2023-03-03 15:05 | PM.EVENT ---
Event Note Date of Service: 03/03/23 Event Note: Pt admitted early this morning admitted for acute CHF exacerbation. HR improved. Continue holding bb for now. Continues on 4L supplemental O2. Will wean as tolerated. Continue with gentle diuresis and monitor I&O closely. Echo pending. Consider cardiology consult if no improvements. Has DEAN, likely cardiorenal with mild hyerkalemia 5.3. Will repeat BMP now. On exam, pt did vomit x1, but otherwise has no complaints. Denies ongoing nausea. No abd pain, sob, chest pain. Bibasilar crackles noted on exam, Heart RRR. Agree with plan as noted in H&P. Time Spent With Patient Time: Total time managing care of this patient today ____ minutes.
[2023-03-03 15:45] LABS: Anion Gap 14 (12-20); Blood Urea Nitrogen 38 mg/dL (9-16); Calcium 9.6 mg/dL (8.4-10.2); Carbon Dioxide 27 mmol/L (22-29); Chloride 108 mmol/L (96-108); Creatinine Clr Calc Pharmacy 38.4; Estimated Glomerular Filt Rate 46; Glucose Random 223 mg/dL (60-115); Potassium 4.9 mmol/L (3.3-5.1); Sodium 144 mmol/L (135-145)
--- NOTE | 2023-03-03 18:06 | PC.NURSE ---
Pt experiencing another episode of vomitting; provider notified. Will give PRN zofran- orders to follow.
--- NOTE | 2023-03-03 18:20 | PC.NURSE ---
Pt c/o burning sensation in epigastric region prior to vomiting; provider notified- orders for maalox to be administered.
[2023-03-03] MEDS: Magnesium Hydrox/Alum Hydrox 30 ML ORAL.SUSP 15 ML PO (18:24)
[2023-03-03] MEDS: ondansetron HCL 4 MG/2 ML VIAL IVPUSH (18:24)
--- NOTE | 2023-03-03 19:36 | PC.NURSE ---
Pt resting in stretcher at this time, no apparent distress. Breathing even and unlabored.
[2023-03-03 20:43] VITALS: BP 173/73; PULSE 82; RESP 17; TEMP 36.4; O2SAT 96
[2023-03-03 20:56] LABS: Glucose, Whole Blood 197 mg/dL (60-115)
[2023-03-03] MEDS: Insulin Glargine,Hum.rec.anlog 100 UNIT/ML 10 ML VIAL 14 UNIT SUBCUT (22:14)
[2023-03-03 23:47] VITALS: BP 164/71; PULSE 82; RESP 18; TEMP 36.7; O2SAT 97
[2023-03-04] MEDS: Morphine Sulfate 2 MG/ML CARTRIDGE IVPUSH (00:15)
[2023-03-04] MEDS: 0.9 % Sodium Chloride Flush 3 ML SYRINGE IVFLUSH ×3 (00:33→15:32)
[2023-03-04] MEDS: Enoxaparin Sodium 40 MG/0.4 ML SYRINGE SUBCUT (00:33)
--- NOTE | 2023-03-04 05:52 | PC.NURSE ---
pt noted to have a pressure injury to right heel during admission assessment. foam dressing applied and heels elevated.
[2023-03-04 06:59] VITALS: BP 140/69; PULSE 78; RESP 18; TEMP 36.7; O2SAT 92
[2023-03-04 07:27] LABS: Glucose, Whole Blood 143 mg/dL (60-115)
[2023-03-04 07:28] LABS: MANUAL DIFF FLAG NO
[2023-03-04 07:32] LABS: Basophils Absolute Auto 0.1 X10*3/uL (0.0-0.2); Basophils Percent Auto 0.7 % (0-2); Eosinophils Absolute Auto 0.2 X10*3/uL (0.0-0.4); Eosinophils Percent Auto 2.2 % (0-4); Hematocrit 29.6 % (42.0-52.0); Hemoglobin 9.9 g/dl (14.0-18.0); Imm Gran Abs Auto 0.03 X10*3/uL (0.00-0.03); Imm Gran Pct Auto 0.3 % (0.0-0.4); Lymphocytes Percent Auto 30.7 % (20-40); Mean Corpuscular HGB Conc 33.4 g/dl (31.0-36.0); Mean Corpuscular Hemoglobin 31.3 pg (27.0-33.0); Mean Corpuscular Volume 93.7 fL (80.0-98.0); Monocytes Absolute Auto 1.1 X10*3/uL (0.1-1.2); Monocytes Percent Auto 11.6 % (2-11); Neutrophils Absolute Auto 5.3 x10*3/uL (2.0-8.3); Neutrophils Percent Auto 54.5 % (45-73); Platelet Count 169 X10*3/uL (160-400); Red Blood Count 3.16 X10*6/uL (4.60-5.80); Red Cell Distribution Width 13.2 % (11.0-16.0); White Blood Count 9.7 X10*3/uL (4.8-10.8)
[2023-03-04 07:45] LABS: Anion Gap 14 (12-20); Blood Urea Nitrogen 35 mg/dL (9-16); Calcium 9.3 mg/dL (8.4-10.2); Carbon Dioxide 28 mmol/L (22-29); Chloride 107 mmol/L (96-108); Creatinine Clr Calc Pharmacy 39.8; Estimated Glomerular Filt Rate 48; Glucose Random 161 mg/dL (60-115); Potassium 4.1 mmol/L (3.3-5.1); Sodium 145 mmol/L (135-145)
[2023-03-04] MEDS: Dorzolamide/Timolo 2.23%/0.68% 10 ML DRBTL 1 DROP EYE-BOTH ×2 (09:14→20:23)
[2023-03-04] MEDS: amLODIPine Besylate 10 MG TABLET PO (09:14)
[2023-03-04] MEDS: ondansetron HCL 4 MG/2 ML VIAL IVPUSH ×2 (09:14→11:50)
[2023-03-04] MEDS: Furosemide 40 MG/4 ML VIAL IVPUSH (09:14)
[2023-03-04] MEDS: Aspirin Enteric Coated 81 MG TABLET.DR PO (09:14)
[2023-03-04] MEDS: Ascorbic Acid 500 MG TABLET PO (09:14)
--- NOTE | 2023-03-04 10:06 | HO.WOUND ---
Wound Consult: Initial 77yr old male admitted to [facility] on?03/03/23 00:22 - See progress notes and H&P for detailed history. Wound consult placed for Right Heel Pressure Injury Present on Admission. Pt reports and chart review supports pt visited outpt Wound Clinic - 1st and last visit 02/27/[address] Coffey and topical recommendation was made for Santyl. Outpt Wound Clinic notes report wound etiology as Diabetic Wound as Primary Etiology - Unstageable Pressure Injury. At time of discharge patient should continue follow up care with outpt Wound Clinic. Right Heel Etiology: Diabetic Wound / Unstageable Pressure Injury - POA Measurements: see charting for detailed measurements Wound Bed: Adherent moist fibrinous yellow lozada slough - wound edge moist red.pink tissue Drainage / Odor: Mild odor noted when dressing was removed - none after cleaning - lozada yellow moist drainage noted on foam dressing. Edges: ? irregular and macerated Jr wound: ?Macerated periwound - red slow to sofia tissue central fluctance noted under adherent slough - No Induration noted Pain: Pt reports significant pain Goals of Treatment: ? Santyl for continued enzymatic debridement Left Heel Etiology: Stage 1 Pressure Injury POA Wound Bed: dry red intact nonblanchable tissue - small scattered fissures noted Drainage / Odor: None Edges: ? Well defined Jr wound: ? No Induration, No Fluctuance noted Pain: Pt reports pain Goals of Treatment: ? Foam dressing applied and elevate off of surface of bed. Recommendations: 1. Turn and Reposition every 2 hours and as needed for patient comfort. 2. Off Load all bony prominences with use of pillows and heel boots if needed.? Apply Preventative foams where needed. ? 3. Monitor for incontinence and moisture control, use barrier creams when needed for prevention and treatment. 4. Provide adequate and supplemental nutrition. 5. Order low air loss mattress. 6. Maintain blood glucose levels per Providers orders. 7. Left Heel - Apply Foam dressing to protect from friction and aid in off loading pressure. Elevate off of bed surface with use of pilllow or heel boot. 8. Right Heel - Elevate heel off of surface of bed Cleanse with normal saline, pat dry. ?Apply Triad to the immediate jr wound, apply thick layer of Santyl to entire wound bed, cover with dry gauze, followed by ABD pad, gauze wrap. Change Daily. Follow up outpt with Wound Clinic at time of Discharge. Re-consult wound care Nurse for wound deterioration or wound changes.
--- NOTE | 2023-03-04 11:16 | P.CONCA_ITS ---
History of Present Illness History of Present Illness Date of Service: 03/04/23 Requesting physician: Karime Turner Chief complaint: Bradycardia; CHF Exacerbation Narrative: 77-year-old gentleman who recently was in the hospital in November after a fall and underwent hip replacement. At that time he was seen for perioperative cardiovascular risk assessment. He has background history of bypass surgery, hypertension, diabetes hand background of congestive heart failure. He also has chronic kidney disease. He said that since surgery has been in pain and has not been ambulating much. Over the last few days he started having shortness of breath and eventually reached a point where recorded EMS. EMS found him to be hypoxic and given supplemental oxygen. Apparently when he came to the ER it has been documented that he was bradycardic and was given calcium gluconate. There is a scant EKG which is showing sinus rhythm with PVCs in a bigeminal pattern. No ischemic changes on the EKG. Old inferior infarct potentially present. QTC 475. It appears his changes improved after he was given calcium. He was hyperkalemic but potassium was 5.3. He is saying that he has been feeling somewhat better. Clinically he has volume overload and is getting diuretics. He is on supplemental oxygen. [facility] Past Medical History Medical History (Updated 03/04/23 @ 11:22 by Lai Hudson MD) Impacted cerumen of both ears Epidermoid cyst of skin of cheek Mass of face Allergic rhinitis Trigger finger, right middle finger Fracture of distal end of left radius with routine healing Superficial abrasion Pneumonia due to COVID-19 virus Acute hypoxemic respiratory failure due to COVID-19 Distal radius fracture, right Renal insufficiency Trigger finger, right middle finger Respiratory tract infection Aortic stenosis Preoperative clearance Iliac artery stenosis, 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 History of renal calculi Compression fracture of L1 lumbar vertebra Infective endocarditis Glaucoma Tobacco abuse Left carotid stenosis GERD (gastroesophageal reflux disease) Pulmonary nodule Cardiomyopathy Congestive heart failure Overweight (BMI 25.0-29.9) Carotid artery stenosis PVD (peripheral vascular disease) Dyslipidemia Hypertension CAD (coronary artery disease) Diabetic retinopathy associated with type 2 diabetes mellitus Diabetic polyneuropathy associated with type 2 diabetes mellitus CKD stage 3 due to type 2 diabetes mellitus Diabetic 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 diabetes mellitus MCC (current) use of insulin Family History Family History Father Stomach cancer Mother Diabetes Brother Prostate abscess Surgical History Surgical History Hx of shoulder surgery Hx of coronary artery bypass graft Hx of cataract removal with insertion of prosthetic lens Hx of tonsillectomy Hx of appendectomy Hx of arthroscopy of right knee Social History Social History Household Members: Spouse Housing: Apartment Do you presently have visiting nurse or other home services: Yes Alcohol intake: never Patient Tobacco Use Status: Current everyday Tobacco user Tobacco use type: Cigarette Cigarette Packs Per Day: 0.25 Cigarettes Per Day: 3 Years Smoked: 65 e-Cigarette/Vaping Use: Never Used Second Hand Smoke Exposure: Yes Advance Directives Date on File: 06/08/21 service: No Current occupational status: 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 Cognitive needs: No Hearing needs: No Vision needs: No Meds Allergies Allergy/AdvReac Type Severity Reaction Status Date / Time furosemide AdvReac Intermediate Dizziness Verified 02/21/23 10:03 Active Medications: Current Medications Acetaminophen (Acetaminophen 325 Mg Tablet) 650 mg PO Q6H PRN PRN Reason: Pain, Mild (Pain Scale 1-3) Amlodipine Besylate (Amlodipine Besylate 10 Mg Tablet) 10 mg PO DAILY [facility]; Protocol Last Admin: 03/04/23 09:14 Dose: 10 mg Ascorbic Acid (Ascorbic Acid 500 Mg Tablet) 500 mg PO DAILY [facility] Last Admin: 03/04/23 09:14 Dose: 500 mg Aspirin (Aspirin Enteric Coated 81 Mg Tablet.Dr) 81 mg PO DAILY [facility] Last Admin: 03/04/23 09:14 Dose: 81 mg Atorvastatin Calcium (Atorvastatin Calcium 80 Mg Tablet) 80 mg PO BEDTIME [facility] Last Admin: 03/03/23 22:48 Dose: Not Given Brimonidine Tartrate (Brimonidine Tartrate 0.2% Oph 5 Ml Bottle) 1 drop EYE- BOTH BID [facility] Last Admin: 03/03/23 22:48 Dose: Not Given Dorzolamide/Timolol (Dorzolamide/Timolo 2.23%/0.68% 10 Ml Drbtl) 1 drop EYE- BOTH BID [facility] Last Admin: 03/04/23 09:14 Dose: 1 drop Enoxaparin Sodium (Enoxaparin Sodium 40 Mg/0.4 Ml Syringe) 40 mg SUBCUT Q24H [facility] Last Admin: 03/04/23 00:33 Dose: 40 mg Furosemide (Furosemide 40 Mg/4 Ml Vial) 40 mg IVPUSH DAILY [facility]; Protocol Last Admin: 03/04/23 09:14 Dose: 40 mg Gabapentin (Gabapentin 300 Mg Capsule) 300 mg PO BEDTIME [facility] Last Admin: 03/03/23 22:48 Dose: Not Given Insulin Glargine (Insulin Glargine,Hum.Rec.Anlog 100 Unit/Ml 10 Ml Vial) 14 unit SUBCUT BEDTIME [facility] Last Admin: 03/03/23 22:14 Dose: 14 unit Losartan Potassium (Losartan Potassium 25 Mg Tablet) 25 mg PO BEDTIME [facility]; Protocol Last Admin: 03/03/23 22:48 Dose: Not Given Melatonin (Melatonin 3 Mg Tablet) 6 mg PO BEDTIME PRN PRN Reason: Insomnia Multivitamins/Vitamin C (Multivitamin Tablet) 1 tab PO BEDTIME [facility] Last Admin: 03/03/23 22:49 Dose: Not Given Ondansetron HCl (Ondansetron Hcl 4 Mg/2 Ml Vial) 4 mg IVPUSH Q8H PRN PRN Reason: Nausea and Vomiting Last Admin: 03/04/23 09:14 Dose: 4 mg Senna (Sennosides 8.6 Mg Tablet) 17.2 mg PO BEDTIME PRN PRN Reason: Constipation Sodium Chloride (0.9 % Sodium Chloride Flush 3 Ml Syringe) 3 ml IVFLUSH QSHIFT [facility] Last Admin: 03/04/23 09:15 Dose: 3 ml Vitamin D (Cholecalciferol (Vitamin D3) 25 Mcg Tablet) 25 mcg PO BEDTIME [facility] Last Admin: 03/03/23 22:48 Dose: Not Given Home Medications Medication Instructions Recorded Confirmed Last Taken Type ascorbic acid (vitamin C) 500 mg 500 mg PO BEDTIME 06/07/21 03/03/23 03/02/23 History tablet dorzolamide 22.3 mg-timolol 6.8 1 drp ophthalmic (eye) BID 06/07/21 03/03/23 03/02/23 History mg/mL eye drops guselkumab 100 mg/mL subcutaneous 100 mg subcut Q8W 06/07/21 03/03/23 Unknown History auto-injector (Tremfya) multivitamin 1 tab PO BEDTIME 06/07/21 03/03/23 03/02/23 History amlodipine 10 mg tablet 10 mg PO BEDTIME 12/09/22 03/03/23 03/02/23 History aspirin 81 mg tablet,delayed 81 mg PO BEDTIME 12/09/22 03/03/23 03/02/23 History release brimonidine 0.15 % eye drops 1 drp ophthalmic (eye) BID 12/09/22 03/03/23 03/02/23 History cholecalciferol (vitamin D3) 25 25 mcg PO BEDTIME 12/09/22 03/03/23 03/02/23 History mcg (1,000 unit) tablet furosemide 20 mg tablet 20 mg PO BEDTIME 12/09/22 03/03/23 03/02/23 History insulin degludec 100 unit/mL (3 20 unit subcut BEDTIME 12/09/22 12/09/22 03/02/23 History mL) subcutaneous pen insulin lispro 100 unit/mL 10 unit subcut TID 12/09/22 12/09/22 03/02/23 History subcutaneous pen (Humalog KwikPen (U-100) Insulin) losartan 25 mg tablet 25 mg PO BEDTIME 12/09/22 03/03/23 03/02/23 History metoprolol succinate 25 mg 25 mg PO BEDTIME 12/09/22 03/03/23 03/02/23 History tablet,extended release 24 hr rosuvastatin 40 mg tablet 40 mg PO BEDTIME 12/09/22 03/03/23 03/02/23 History collagenase clostridium histo. 250 1 appl topical DAILY 03/03/23 03/03/23 03/02/23 History unit/gram topical ointment (Santyl) dulaglutide 1.5 mg/0.5 mL 1.5 mg subcut QWEEK 03/03/23 03/03/23 03/02/23 History subcutaneous pen injector (Trulicity) Physical Exam 2 Vital Signs: Vital Signs: Last Vital Signs Temp 98.1 F 03/04/23 06:59 Pulse 78 03/04/23 06:59 Resp 18 03/04/23 06:59 BP 140/69 H 03/04/23 06:59 Pulse Ox 92 03/04/23 06:59 O2 Del Method Nasal Cannula 03/04/23 06:59 O2 Flow Rate 2 03/04/23 06:59 BMI result Body Mass Index 25.8 GENERAL APPEARANCE: in no acute distress, pleasant. NECK: no carotid bruit, + jugular venous distention. SKIN: no suspicious lesions, warm and dry. HEART: Systolic murmur, regular rate and rhythm. LUNGS: Crackles at both bases. ABDOMEN: soft, nontender. EXTREMITIES: no edema. PERIPHERAL PULSES: equal. NEUROLOGIC: No gross deficits, AAO X 3 Objective Labs and Meds 03/04/23 06:57 03/04/23 06:58 Lab results: Laboratory Results - last 24 hr 03/03/23 03/03/23 03/04/23 15:28 20:26 06:57 WBC 9.7 RBC 3.16 L Hgb 9.9 L Hct 29.6 L MCV 93.7 MCH 31.3 MCHC 33.4 RDW 13.2 Plt Count 169 MPV 11.0 Immature Gran % (Auto) 0.3 Neut % (Auto) 54.5 Lymph % (Auto) 30.7 [place] % (Auto) 11.6 H Eos % (Auto) 2.2 Baso % (Auto) 0.7 Lymph # (Auto) 3.0 [place] # (Auto) 1.1 Eos # (Auto) 0.2 Baso # (Auto) 0.1 Abs Immat Gran (auto) 0.03 Absolute Neuts (auto) 5.3 Absolute Nucleated RBC 0.000 Nucleated RBC % (auto) 0.0 Sodium 144 Potassium 4.9 Chloride 108 Carbon Dioxide 27 Anion Gap 14 BUN 38 H Creatinine 1.48 H Estim Creat Clear Calc 38.4 Estimated GFR 46 POC Glucose 197 H Random Glucose 223 H Calcium 9.6 03/04/23 03/04/23 06:58 07:08 WBC RBC Hgb Hct MCV MCH MCHC RDW Plt Count MPV Immature Gran % (Auto) Neut % (Auto) Lymph % (Auto) [place] % (Auto) Eos % (Auto) Baso % (Auto) Lymph # (Auto) [place] # (Auto) Eos # (Auto) Baso # (Auto) Abs Immat Gran (auto) Absolute Neuts (auto) Absolute Nucleated RBC Nucleated RBC % (auto) Sodium 145 Potassium 4.1 Chloride 107 Carbon Dioxide 28 Anion Gap 14 BUN 35 H Creatinine 1.43 H Estim Creat Clear Calc 39.8 Estimated GFR 48 POC Glucose 143 H Random Glucose 161 H Calcium 9.3 Assessment and Plan (1) Congestive heart failure: Qualifiers: Heart failure type: unspecified Heart failure chronicity: chronic Qualified Code(s): I50.9 - Heart failure, unspecified Status: Acute (2) Hypertension: Qualifiers: Hypertension type: essential hypertension Qualified Code(s): I10 - Essential (primary) hypertension Status: Acute (3) Frequent PVCs: Status: Acute Plan 77-year-old gentleman with background of coronary artery bypass surgery who is presenting with shortness of breath due to congestive heart failure. In the ER he was noted to be bradycardic in 30s to 40s and EKG showed frequent PVCs in a bigeminal pattern. It appears that he was not perfusing the PVCs as his heart rate was felt to be 30s. He currently have no PVCs on telemetry and his heart rate has recovered. I think beta-mary will be more helpful than harmful currently. Agree with IV diuretics. I do not think that he needs repeat echocardiography currently. Given somewhat elevated blood pressure I would consider giving him carvedilol 3.125 mg twice a day and titrating that because that will be a better option for blood pressure control due to alpha blockade. Thank you for allowing me to participate in the care of your patient. Please feel free to contact me if you have any questions. Procedures Date of Service Date of Service: 03/04/23
--- NOTE | 2023-03-04 11:35 | P.PNIM_ITS ---
Subjective Subjective Date of Service: 03/04/23 Interval History: Follow up CHF no sob having nausea Review of Systems Review of Systems: Yes all other systems are reviewed and are negative Constitutional Constitutional: Denies chills and Denies fever(s) Cardiovascular Cardiovascular: Denies chest pain and Denies dyspnea Respiratory Respiratory: Denies cough and Denies dyspnea Gastrointestinal Gastrointestinal: Denies abdominal pain Physical Exam 2 Vital Signs: Vital Signs: Last Vital Signs Temp 98.1 F 03/04/23 06:59 Pulse 78 03/04/23 06:59 Resp 18 03/04/23 06:59 BP 140/69 H 03/04/23 06:59 Pulse Ox 92 03/04/23 06:59 O2 Del Method Nasal Cannula 03/04/23 06:59 O2 Flow Rate 2 03/04/23 06:59 BMI result Body Mass Index 25.8 Appearing in no acute distress lung sounds are clear to auscultation heart regular rate rhythm, clear S1, S2 positive bowel sounds, abdomen is soft, nontender neuro patient is alert x3, no focal deficits Objective Data Active Medications Acetaminophen (Acetaminophen 325 Mg Tablet) 650 mg PO Q6H PRN PRN Reason: Pain, Mild (Pain Scale 1-3) Amlodipine Besylate (Amlodipine Besylate 10 Mg Tablet) 10 mg PO DAILY [facility]; Protocol Last Admin: 03/04/23 09:14 Dose: 10 mg Documented By: JOLIE Ascorbic Acid (Ascorbic Acid 500 Mg Tablet) 500 mg PO DAILY [facility] Last Admin: 03/04/23 09:14 Dose: 500 mg Documented By: JOLIE Aspirin (Aspirin Enteric Coated 81 Mg Tablet.) 81 mg PO DAILY [facility] Last Admin: 03/04/23 09:14 Dose: 81 mg Documented By: JOLIE Atorvastatin Calcium (Atorvastatin Calcium 80 Mg Tablet) 80 mg PO BEDTIME [facility] Last Admin: 03/03/23 22:48 Dose: Not Given Documented By: JOCELINE Non-Admin Reason: pt reports nausea and vomitting. refusing Brimonidine Tartrate (Brimonidine Tartrate 0.2% Oph 5 Ml Bottle) 1 drop EYE- BOTH BID [facility] Last Admin: 03/03/23 22:48 Dose: Not Given Documented By: JOCELINE Non-Admin Reason: Med Not Available Dorzolamide/Timolol (Dorzolamide/Timolo 2.23%/0.68% 10 Ml Drbtl) 1 drop EYE- BOTH BID [facility] Last Admin: 03/04/23 09:14 Dose: 1 drop Documented By: JOLIE Enoxaparin Sodium (Enoxaparin Sodium 40 Mg/0.4 Ml Syringe) 40 mg SUBCUT Q24H [facility] Last Admin: 03/04/23 00:33 Dose: 40 mg Documented By: JOCELINE Furosemide (Furosemide 40 Mg/4 Ml Vial) 40 mg IVPUSH DAILY [facility]; Protocol Last Admin: 03/04/23 09:14 Dose: 40 mg Documented By: JOLIE Gabapentin (Gabapentin 300 Mg Capsule) 300 mg PO BEDTIME [facility] Last Admin: 03/03/23 22:48 Dose: Not Given Documented By: JOCELINE Non-Admin Reason: pt reports nausea and vomitting. refusing Insulin Glargine (Insulin Glargine,Hum.Rec.Anlog 100 Unit/Ml 10 Ml Vial) 14 unit SUBCUT BEDTIME [facility] Last Admin: 03/03/23 22:14 Dose: 14 unit Documented By: JOCELINE Losartan Potassium (Losartan Potassium 25 Mg Tablet) 25 mg PO BEDTIME [facility]; Protocol Last Admin: 03/03/23 22:48 Dose: Not Given Documented By: JOCELINE Non-Admin Reason: pt reports nausea and vomitting. refusing Melatonin (Melatonin 3 Mg Tablet) 6 mg PO BEDTIME PRN PRN Reason: Insomnia Multivitamins/Vitamin C (Multivitamin Tablet) 1 tab PO BEDTIME [facility] Last Admin: 03/03/23 22:49 Dose: Not Given Documented By: JOCELINE Non-Admin Reason: pt reports nausea and vomitting. refusing Ondansetron HCl (Ondansetron Hcl 4 Mg/2 Ml Vial) 4 mg IVPUSH Q8H PRN PRN Reason: Nausea and Vomiting Last Admin: 03/04/23 09:14 Dose: 4 mg Documented By: JOLIE Senna (Sennosides 8.6 Mg Tablet) 17.2 mg PO BEDTIME PRN PRN Reason: Constipation Sodium Chloride (0.9 % Sodium Chloride Flush 3 Ml Syringe) 3 ml IVFLUSH QSHIFT [facility] Last Admin: 03/04/23 09:15 Dose: 3 ml Documented By: JOLIE Vitamin D (Cholecalciferol (Vitamin D3) 25 Mcg Tablet) 25 mcg PO BEDTIME [facility] Last Admin: 03/03/23 22:48 Dose: Not Given Documented By: JOCELINE Non-Admin Reason: pt reports nausea and vomitting. refusing Labs 03/04/23 06:57 03/04/23 06:58 Labs: Laboratory Results - last 24 hr 03/03/23 03/03/23 03/04/23 15:28 20:26 06:57 MCV 93.7 MCH 31.3 MCHC 33.4 RDW 13.2 Plt Count 169 MPV 11.0 Immature Gran % (Auto) 0.3 Neut % (Auto) 54.5 Lymph % (Auto) 30.7 [place] % (Auto) 11.6 H Eos % (Auto) 2.2 Baso % (Auto) 0.7 Lymph # (Auto) 3.0 [place] # (Auto) 1.1 Eos # (Auto) 0.2 Baso # (Auto) 0.1 Abs Immat Gran (auto) 0.03 Absolute Neuts (auto) 5.3 Absolute Nucleated RBC 0.000 Nucleated RBC % (auto) 0.0 Anion Gap 14 Estim Creat Clear Calc 38.4 Estimated GFR 46 POC Glucose 197 H Random Glucose 223 H Calcium 9.6 03/04/23 03/04/23 06:58 07:08 MCV MCH MCHC RDW Plt Count MPV Immature Gran % (Auto) Neut % (Auto) Lymph % (Auto) [place] % (Auto) Eos % (Auto) Baso % (Auto) Lymph # (Auto) [place] # (Auto) Eos # (Auto) Baso # (Auto) Abs Immat Gran (auto) Absolute Neuts (auto) Absolute Nucleated RBC Nucleated RBC % (auto) Anion Gap 14 Estim Creat Clear Calc 39.8 Estimated GFR 48 POC Glucose 143 H Random Glucose 161 H Calcium 9.3 Microbiology Microbiology Results: Microbiology 03/02/23 22:46 Blood Culture - Preliminary Blood - Venous No growth after 24 hours. 03/02/23 20:24 Blood Culture - Preliminary Blood - Venous No growth after 24 hours. Assessment and Plan (1) Hypoxia: Status: Acute (2) CHF (congestive heart failure): Status: Acute Plan 77-year-old male with past medical history of diastolic congestive heart failure, type 2 diabetes mellitus, hypertension, glaucoma, anemia, chronic kidney disease and s/p recent right total hip arthroplasty here with Hypoxemia secondary to Acute on chronic diastolic congestive heart failure hypoxia resolved IV lasix Strict intake and output cardiology following>no need for echo as last echo was in December, continue diuresis supplemental oxygen as needed Sinus bradycardia seems like lone episode resume Metoprolol Succinate Acute kidney failure likely from volume overload diurese and follow Nausea and vomiting antiemetics PPI Type 2 Diabetes Mellitus on Trulicity and Insulin Degludec ss, ada diet Hyperlipidemia resume Rosuvastatin Hypertension Losartan & Amlodipine Glaucoma resume Brimonidine and Dorzolamide Attending Dr. Brito DVT Lovenox full code Continue hospitalization for treatment of acute congestive heart failure requiring IV diuresis and strict intake and output monitoring patient be done a lesser acute setting as patient may decompensate quickly. Quality Stroke Does the patient have a stroke diagnosis?: No VTE Prior VTE?: No VTE Risk Level:: Medical - moderate - high VTE Device Contraindication: N/A - Device Ordered VTE Drug Contraindication: N/A - Med Ordered
[2023-03-04 11:44] VITALS: BP 151/67; PULSE 78; RESP 18; TEMP 36.9; O2SAT 95
[2023-03-04 11:49] LABS: Glucose, Whole Blood 204 mg/dL (60-115)
[2023-03-04] MEDS: Famotidine/PF 20 MG/2 ML VIAL IVPUSH (11:50)
[2023-03-04] MEDS: Brimonidine Tartrate 0.2% Oph 5 ML BOTTLE 1 DROP EYE-BOTH ×2 (12:16→20:23)
[2023-03-04 15:28] VITALS: BP 138/67; PULSE 60; RESP 18; TEMP 36.3; O2SAT 94
[2023-03-04 15:57] LABS: Glucose, Whole Blood 181 mg/dL (60-115)
[2023-03-04 19:47] VITALS: BP 115/55; PULSE 68; RESP 18; TEMP 36.5; O2SAT 96
[2023-03-04 19:54] VITALS: BMI 25.8
[2023-03-04] MEDS: Losartan Potassium 25 MG TABLET PO (20:18)
[2023-03-04] MEDS: Atorvastatin Calcium 80 MG TABLET PO (20:18)
[2023-03-04] MEDS: Multivitamin TABLET 1 TAB PO (20:18)
[2023-03-04] MEDS: Metoprolol Succinate ER 25 MG TAB.ER.24H PO (20:18)
[2023-03-04] MEDS: Cholecalciferol (Vitamin D3) 25 MCG TABLET PO (20:18)
[2023-03-04] MEDS: Gabapentin 300 MG CAPSULE PO (20:18)
[2023-03-04] MEDS: Insulin Glargine,Hum.rec.anlog 100 UNIT/ML 10 ML VIAL 14 UNIT SUBCUT (20:19)
[2023-03-04 20:36] LABS: Glucose, Whole Blood 189 mg/dL (60-115)
[2023-03-04 23:58] VITALS: BP 130/46; PULSE 64; RESP 20; TEMP 36.4; O2SAT 98
[2023-03-05] MEDS: Enoxaparin Sodium 40 MG/0.4 ML SYRINGE SUBCUT (00:27)
[2023-03-05] MEDS: 0.9 % Sodium Chloride Flush 3 ML SYRINGE IVFLUSH ×3 (00:27→16:47)
[2023-03-05 03:50] VITALS: BP 130/45; PULSE 69; RESP 20; TEMP 36.9; O2SAT 97
[2023-03-05 06:38] VITALS: BMI 29.5
[2023-03-05 07:12] VITALS: BP 144/66; PULSE 72; RESP 18; TEMP 36.4; O2SAT 95
[2023-03-05 07:28] LABS: Glucose, Whole Blood 138 mg/dL (60-115)
[2023-03-05] MEDS: carvediloL 3.125 MG TABLET PO (09:43)
[2023-03-05] MEDS: Ascorbic Acid 500 MG TABLET PO (09:43)
[2023-03-05] MEDS: amLODIPine Besylate 10 MG TABLET PO (09:43)
[2023-03-05] MEDS: Aspirin Enteric Coated 81 MG TABLET.DR PO (09:43)
[2023-03-05] MEDS: Famotidine/PF 20 MG/2 ML VIAL IVPUSH (09:44)
[2023-03-05] MEDS: Furosemide 40 MG/4 ML VIAL IVPUSH (09:44)
[2023-03-05] MEDS: Dorzolamide/Timolo 2.23%/0.68% 10 ML DRBTL 1 DROP EYE-BOTH ×2 (09:44→21:48)
[2023-03-05] MEDS: Brimonidine Tartrate 0.2% Oph 5 ML BOTTLE 1 DROP EYE-BOTH ×2 (09:44→21:47)
--- NOTE | 2023-03-05 11:10 | MHC.CLN ---
F/U PT WITH INCREASED NUTRITION RISK R/T PRESSURE INJURIES PO INTAKE 25-100% X2 MEALS DIET RX: 2000DM CARDIAC-APPROPRIATE PT RECEIVING ENSURE MAX BID TO PROMOTE WOUND HEALING SUPP PROVIDES 300KCALS, 60G PROTEIN MONITOR PO INTAKE AND ENCOURAGE SUPPLEMENT
[2023-03-05 11:14] VITALS: BP 130/62; PULSE 71; RESP 18; TEMP 36.4; O2SAT 95
--- NOTE | 2023-03-05 11:27 | PM.PNCARD ---
Subjective Subjective Date of Service: 03/05/23 Interval history: Seen and examined at bedside. Feeling better. PVCs on telemetry. Physical Exam Vital Signs: Last Vital Signs Temp 97.6 F 03/05/23 11:14 Pulse 71 03/05/23 11:14 Resp 18 03/05/23 11:14 BP 130/62 03/05/23 11:14 Pulse Ox 95 03/05/23 11:14 O2 Del Method Nasal Cannula 03/05/23 11:14 O2 Flow Rate 2 03/05/23 11:14 BMI result Body Mass Index 29.5 GENERAL APPEARANCE: in no acute distress, pleasant. NECK: no carotid bruit, mild jugular venous distention. SKIN: no suspicious lesions, warm and dry. HEART: Systolic murmur, regular rate and rhythm. LUNGS: Crackles at both bases. ABDOMEN: soft, nontender. EXTREMITIES: no edema. PERIPHERAL PULSES: equal. NEUROLOGIC: No gross deficits, AAO X 3 Objective Labs and Meds 03/04/23 06:57 03/04/23 06:58 Lab results: Laboratory Results - last 24 hr 03/04/23 03/04/23 03/04/23 11:43 15:54 20:27 POC Glucose 204 H 181 H 189 H 03/05/23 07:14 POC Glucose 138 H Progress Note: A&P Assessment and plan (1) Frequent PVCs: Status: Acute (2) Congestive heart failure: Status: Acute Plan 77-year-old gentleman with background history of coronary artery disease status post bypass surgery was presenting with shortness of breath. Clinically in heart failure and has been getting IV diuretics with improvement in symptoms. He still has crackles in both lungs and mild JVD. I think we continue IV diuretics today. Does have frequent premature ventricular complexes. The PVCs are not perfused and his pulse by palpation is slow and that is part of the reason he was felt to be bradycardic on admission. Give 1 more g of magnesium IV. Monitor on telemetry closely. Would favor titrating carvedilol further to see if these can be suppressed. Thank you for allowing me to participate in the care of your patient. Please feel free to contact me if you have any questions. Time Spent With Patient Time: Total time managing care of this patient today ____ minutes. Progress Note: Quality Stroke Does the patient have a stroke diagnosis?: No Procedures Date of Service Date of Service: 03/05/23
[2023-03-05 11:28] LABS: Glucose, Whole Blood 181 mg/dL (60-115)
--- NOTE | 2023-03-05 14:03 | P.PNIM_ITS ---
Subjective Subjective Date of Service: 03/05/23 Interval History: Notes improvement since admission. Still with O2 required Review of Systems Denies chest pain Admit shortness of breath Denies nausea vomiting diarrhea Denies fever chills Physical Exam 2 Vital Signs: Vital Signs: Last Vital Signs Temp 97.6 F 03/05/23 11:14 Pulse 71 03/05/23 11:14 Resp 18 03/05/23 11:14 BP 130/62 03/05/23 11:14 Pulse Ox 95 03/05/23 11:14 O2 Del Method Nasal Cannula 03/05/23 11:14 O2 Flow Rate 2 03/05/23 11:14 BMI result Body Mass Index 29.5 Const: Other: No acute distress Resp: Other: Bilateral basilar crackles Cardio: Other: No S4; positive S1-S2; no S3 murmurs rubs gallops GI: Other: Soft nontender nondistended normoactive bowel sounds Extrem: Other: No edema bilaterally Objective Data Active Medications Acetaminophen (Acetaminophen 325 Mg Tablet) 650 mg PO Q6H PRN PRN Reason: Pain, Mild (Pain Scale 1-3) Amlodipine Besylate (Amlodipine Besylate 10 Mg Tablet) 10 mg PO DAILY [facility]; Protocol Last Admin: 03/05/23 09:43 Dose: 10 mg Documented By: PODMORP Ascorbic Acid (Ascorbic Acid 500 Mg Tablet) 500 mg PO DAILY [facility] Last Admin: 03/05/23 09:43 Dose: 500 mg Documented By: PODMORP Aspirin (Aspirin Enteric Coated 81 Mg Tablet.) 81 mg PO DAILY [facility] Last Admin: 03/05/23 09:43 Dose: 81 mg Documented By: PODMORP Atorvastatin Calcium (Atorvastatin Calcium 80 Mg Tablet) 80 mg PO BEDTIME [facility] Last Admin: 03/04/23 20:18 Dose: 80 mg Documented By: DIAZDEM Brimonidine Tartrate (Brimonidine Tartrate 0.2% Oph 5 Ml Bottle) 1 drop EYE- BOTH BID [facility] Last Admin: 03/05/23 09:44 Dose: 1 drop Documented By: PODMORP Carvedilol (Carvedilol 6.25 Mg Tablet) 6.25 mg PO BID [facility]; Protocol Dorzolamide/Timolol (Dorzolamide/Timolo 2.23%/0.68% 10 Ml Drbtl) 1 drop EYE- BOTH BID [facility] Last Admin: 03/05/23 09:44 Dose: 1 drop Documented By: ALLYSON Enoxaparin Sodium (Enoxaparin Sodium 40 Mg/0.4 Ml Syringe) 40 mg SUBCUT Q24H [facility] Last Admin: 03/05/23 00:27 Dose: 40 mg Documented By: MARLENY Famotidine (Famotidine/Pf 20 Mg/2 Ml Vial) 20 mg IVPUSH DAILY [facility] Last Admin: 03/05/23 09:44 Dose: 20 mg Documented By: PODMORP Furosemide (Furosemide 40 Mg/4 Ml Vial) 40 mg IVPUSH DAILY [facility]; Protocol Last Admin: 03/05/23 09:44 Dose: 40 mg Documented By: ALLYSON Gabapentin (Gabapentin 300 Mg Capsule) 300 mg PO BEDTIME [facility] Last Admin: 03/04/23 20:18 Dose: 300 mg Documented By: GURDEEP Magnesium Sulfate (Magnesium Sulfate/H2o) 2 gm in 50 mls @ 25 mls/hr IV ONCE ONE Stop: 03/05/23 16:01 Insulin Glargine (Insulin Glargine,Hum.Rec.Anlog 100 Unit/Ml 10 Ml Vial) 14 unit SUBCUT BEDTIME [facility] Last Admin: 03/04/23 20:19 Dose: 14 unit Documented By: GURDEEP Losartan Potassium (Losartan Potassium 25 Mg Tablet) 25 mg PO BEDTIME [facility]; Protocol Last Admin: 03/04/23 20:18 Dose: 25 mg Documented By: GURDEEP Melatonin (Melatonin 3 Mg Tablet) 6 mg PO BEDTIME PRN PRN Reason: Insomnia Multivitamins/Vitamin C (Multivitamin Tablet) 1 tab PO BEDTIME [facility] Last Admin: 03/04/23 20:18 Dose: 1 tab Documented By: GURDEEP Ondansetron HCl (Ondansetron Hcl 4 Mg/2 Ml Vial) 4 mg IVPUSH Q6H PRN PRN Reason: Nausea and Vomiting Last Admin: 03/04/23 11:50 Dose: 4 mg Documented By: TARA Senna (Sennosides 8.6 Mg Tablet) 17.2 mg PO BEDTIME PRN PRN Reason: Constipation Sodium Chloride (0.9 % Sodium Chloride Flush 3 Ml Syringe) 3 ml IVFLUSH QSHIFT [facility] Last Admin: 03/05/23 09:43 Dose: 3 ml Documented By: PODMORP Vitamin D (Cholecalciferol (Vitamin D3) 25 Mcg Tablet) 25 mcg PO BEDTIME [facility] Last Admin: 03/04/23 20:18 Dose: 25 mcg Documented By: GURDEEP Labs 03/04/23 06:57 03/04/23 06:58 Labs: Laboratory Results - last 24 hr 03/04/23 03/04/23 03/05/23 15:54 20:27 07:14 POC Glucose 181 H 189 H 138 H 03/05/23 11:17 POC Glucose 181 H Microbiology Microbiology Results: Microbiology 03/02/23 22:46 Blood Culture - Preliminary Blood - Venous No growth after 48 hours. 03/02/23 20:24 Blood Culture - Preliminary Blood - Venous No growth after 48 hours. Assessment and Plan (1) Frequent PVCs: Status: Acute (2) Acute on chronic diastolic heart failure: Status: Acute Plan 77-year-old male with past medical history of diastolic congestive heart failure, type 2 diabetes mellitus, hypertension, glaucoma, anemia, chronic kidney disease and s/p recent right total hip arthroplasty here with hypoxemia most likely related to congestive heart failure 1.Hypoxemia/ Acute on chronic diastolic congestive heart failure -hypoxia resolved -Continue IV lasix -intake and output -titrate O2 to maintain sats greater than equal 90% 2.Sinus bradycardia -appreciate cardiology input -frequent multiple PVCs; will maintain magnesium and potassium supplementation -increase Coreg to 6.25 mg b.i.d. 3.Acute kidney failure -slowly improving with diuresis (continue same) -follow renals/divalents 4.Type 2 Diabetes Mellitus -acceptable control on current therapies -lispro correctional scale -continue oral therapies and adjust as indicated 5.Hypertension -acceptable control on current therapies -adjust as indicated Lovenox Full code Continue hospitalization for treatment of acute congestive heart failure requiring IV diuresis and strict intake and output monitoring patient be done a lesser acute setting as patient may decompensate quickly. Quality Stroke Does the patient have a stroke diagnosis?: No VTE Prior VTE?: No VTE Risk Level:: Medical - moderate - high VTE Device Contraindication: N/A - Device Ordered VTE Drug Contraindication: N/A - Med Ordered
--- NOTE | 2023-03-05 14:52 | MHC.CM.PN ---
EMR reviewed and per MD rounds, pt is not medically cleared for D/C due to continued management of CHF, on IV lasix. CM will continue to follow.
[2023-03-05] MEDS: Magnesium Sulfate/H2O 2 GM/50 ML PIGGYBACK IV (15:13)
[2023-03-05 15:43] VITALS: BP 127/61; PULSE 70; RESP 16; TEMP 36.5; O2SAT 96
[2023-03-05 15:53] LABS: Glucose, Whole Blood 234 mg/dL (60-115)
[2023-03-05 19:20] VITALS: BP 149/62; PULSE 66; RESP 20; TEMP 36.8; O2SAT 97
[2023-03-05] MEDS: Losartan Potassium 25 MG TABLET PO (21:45)
[2023-03-05] MEDS: Atorvastatin Calcium 80 MG TABLET PO (21:45)
[2023-03-05] MEDS: Multivitamin TABLET 1 TAB PO (21:46)
[2023-03-05] MEDS: Cholecalciferol (Vitamin D3) 25 MCG TABLET PO (21:46)
[2023-03-05] MEDS: Gabapentin 300 MG CAPSULE PO (21:46)
[2023-03-05] MEDS: carvediloL 6.25 MG TABLET PO (21:46)
[2023-03-05] MEDS: Insulin Glargine,Hum.rec.anlog 100 UNIT/ML 10 ML VIAL 14 UNIT SUBCUT (21:50)
[2023-03-05 21:55] LABS: Glucose, Whole Blood 198 mg/dL (60-115)
[2023-03-06] VITALS (7 sets, daily range): BP systolic 114–142; BP diastolic 51–64; PULSE 50–73; RESP 18–20; TEMP 36.2–36.7; O2SAT 93–99; BMI 29.3
[2023-03-06] MEDS: 0.9 % Sodium Chloride Flush 3 ML SYRINGE IVFLUSH ×4 (01:55→20:16)
[2023-03-06] MEDS: Enoxaparin Sodium 40 MG/0.4 ML SYRINGE SUBCUT (01:55)
[2023-03-06 06:15] LABS: MANUAL DIFF FLAG NO
[2023-03-06 06:19] LABS: Basophils Absolute Auto 0.1 X10*3/uL (0.0-0.2); Basophils Percent Auto 0.6 % (0-2); Eosinophils Absolute Auto 0.3 X10*3/uL (0.0-0.4); Eosinophils Percent Auto 3.2 % (0-4); Hematocrit 27.5 % (42.0-52.0); Hemoglobin 9.2 g/dl (14.0-18.0); Imm Gran Abs Auto 0.02 X10*3/uL (0.00-0.03); Imm Gran Pct Auto 0.2 % (0.0-0.4); Lymphocytes Absolute Auto 2.8 X10*3/uL (1.2-4.9); Lymphocytes Percent Auto 27.5 % (20-40); Mean Corpuscular HGB Conc 33.5 g/dl (31.0-36.0); Mean Corpuscular Hemoglobin 31.1 pg (27.0-33.0); Mean Corpuscular Volume 92.9 fL (80.0-98.0); Mean Platelet Volume 11.3 fL (9.4-12.4); Monocytes Percent Auto 9.9 % (2-11); Neutrophils Percent Auto 58.6 % (45-73); Platelet Count 155 X10*3/uL (160-400); Red Blood Count 2.96 X10*6/uL (4.60-5.80); Red Cell Distribution Width 13.3 % (11.0-16.0); White Blood Count 10.2 X10*3/uL (4.8-10.8)
[2023-03-06 06:44] LABS: Alanine Aminotransferase 11 U/L (0-40); Albumin Level 3.3 g/dL (3.5-5.0); Alkaline Phosphatase 97 U/L (39-117); Anion Gap 11 (12-20); Aspartate Amino Transferase 12 U/L (5-37); Bilirubin Total 0.4 mg/dL (0.0-1.0); Blood Urea Nitrogen 54 mg/dL (9-16); Calcium 8.8 mg/dL (8.4-10.2); Carbon Dioxide 29 mmol/L (22-29); Chloride 103 mmol/L (96-108); Creatinine Clr Calc Pharmacy 24.3; Estimated Glomerular Filt Rate 24; Glucose Fasting 201 mg/dL (60-99); Magnesium 2.5 mg/dL (1.6-2.6); Potassium 4.4 mmol/L (3.3-5.1); Sodium 139 mmol/L (135-145); Total Protein 6.6 g/dL (6.5-8.0)
[2023-03-06 07:20] LABS: Glucose, Whole Blood 171 mg/dL (60-115)
[2023-03-06] MEDS: Brimonidine Tartrate 0.2% Oph 5 ML BOTTLE 1 DROP EYE-BOTH ×2 (07:59→20:17)
[2023-03-06] MEDS: carvediloL 6.25 MG TABLET PO (07:59)
[2023-03-06] MEDS: amLODIPine Besylate 10 MG TABLET PO (07:59)
[2023-03-06] MEDS: Ascorbic Acid 500 MG TABLET PO (07:59)
[2023-03-06] MEDS: Dorzolamide/Timolo 2.23%/0.68% 10 ML DRBTL 1 DROP EYE-BOTH ×2 (07:59→20:17)
[2023-03-06] MEDS: Aspirin Enteric Coated 81 MG TABLET.DR PO (07:59)
[2023-03-06] MEDS: Furosemide 40 MG/4 ML VIAL IVPUSH (07:59)
[2023-03-06] MEDS: Famotidine/PF 20 MG/2 ML VIAL IVPUSH (07:59)
--- NOTE | 2023-03-06 10:30 | P.PNCA_ITS ---
Subjective Subjective Date of Service: 03/06/23 Interval history: Seen and examined at bedside Breathing is improving but creatinine has worsened and is losartan and Lasix were held. Continues to have ventricular bigeminy on telemetry. His palpabe pulse is in 40s. Physical Exam Vital Signs: Last Vital Signs Temp 97.1 F 03/06/23 07:21 Pulse 64 03/06/23 07:21 Resp 18 03/06/23 07:21 BP 127/60 03/06/23 07:21 Pulse Ox 97 03/06/23 07:21 O2 Del Method Nasal Cannula 03/06/23 07:21 O2 Flow Rate 2 03/06/23 07:21 BMI result Body Mass Index 29.3 GENERAL APPEARANCE: in no acute distress, pleasant. NECK: no carotid bruit, mild jugular venous distention. SKIN: no suspicious lesions, warm and dry. HEART: Systolic murmur, bradycardic. LUNGS: Crackles at both bases-less marked than yesterday. ABDOMEN: soft, nontender. EXTREMITIES: no edema. PERIPHERAL PULSES: equal. NEUROLOGIC: No gross deficits, AAO X 3 Objective Labs and Meds 03/06/23 05:59 03/06/23 05:59 Lab results: Laboratory Results - last 24 hr 03/05/23 03/05/23 03/05/23 11:17 15:47 21:52 WBC RBC Hgb Hct MCV MCH MCHC RDW Plt Count MPV Immature Gran % (Auto) Neut % (Auto) Lymph % (Auto) [place] % (Auto) Eos % (Auto) Baso % (Auto) Lymph # (Auto) [place] # (Auto) Eos # (Auto) Baso # (Auto) Abs Immat Gran (auto) Absolute Neuts (auto) Absolute Nucleated RBC Nucleated RBC % (auto) Sodium Potassium Chloride Carbon Dioxide Anion Gap BUN Creatinine Estim Creat Clear Calc Estimated GFR POC Glucose 181 H 234 H 198 H Fasting Glucose Calcium Magnesium Total Bilirubin AST ALT Alkaline Phosphatase Total Protein Albumin 03/06/23 03/06/23 05:59 07:11 WBC 10.2 RBC 2.96 L Hgb 9.2 L Hct 27.5 L MCV 92.9 MCH 31.1 MCHC 33.5 RDW 13.3 Plt Count 155 L MPV 11.3 Immature Gran % (Auto) 0.2 Neut % (Auto) 58.6 Lymph % (Auto) 27.5 [place] % (Auto) 9.9 Eos % (Auto) 3.2 Baso % (Auto) 0.6 Lymph # (Auto) 2.8 [place] # (Auto) 1.0 Eos # (Auto) 0.3 Baso # (Auto) 0.1 Abs Immat Gran (auto) 0.02 Absolute Neuts (auto) 6.0 Absolute Nucleated RBC 0.000 Nucleated RBC % (auto) 0.0 Sodium 139 Potassium 4.4 Chloride 103 Carbon Dioxide 29 Anion Gap 11 L BUN 54 H Creatinine 2.61 H Estim Creat Clear Calc 24.3 Estimated GFR 24 POC Glucose 171 H Fasting Glucose 201 H Calcium 8.8 Magnesium 2.5 Total Bilirubin 0.4 AST 12 ALT 11 Alkaline Phosphatase 97 Total Protein 6.6 Albumin 3.3 L Progress Note: A&P Assessment and plan (1) Acute on chronic diastolic heart failure: Status: Acute (2) Frequent PVCs: Status: Acute (3) Bradycardia: Status: Acute Plan 77-year-old gentleman with background history of coronary artery disease status post bypass surgery, recent hip fracture after a fall for which he had surgery in November 2022, diastolic heart failure, hypertension and hyperlipidemia. He also has moderate aortic valve stenosis. He presented with congestive heart failure. He has been diuresed and clinically has improved but unfortunately had a kidney injury now. His Lasix and ARB are held. He also was noticed to have bradycardia on admission. He had frequent premature ventricle complexes in a bigeminal pattern and he does not perfuse the PVCs so his effective heart rate is usually half of what is displayed on the monitor. We tried to increase the carvedilol to see if that could suppress the PVCs but he continues to get them. I think he would need anti arrhythmics and given the fact that he has known coronary disease and heart failure the options are quite limited. I am stopping the carvedilol and starting him on amiodarone 400 mg daily starting tonight. Will monitor his creatinine closely as he had kidney injury and he may need gentle fluids for improvement. Consider Nephrology consult. Thank you for allowing me to participate in the care of your patient. Please feel free to contact me if you have any questions. Time Spent With Patient Time: Total time managing care of this patient today ____ minutes. Progress Note: Quality Stroke Does the patient have a stroke diagnosis?: No Procedures Date of Service Date of Service: 03/06/23
[2023-03-06] MEDS: Collagenase Clostridium Hist. 30 GM TUBE 1 APPL TOPICAL (10:32)
[2023-03-06 11:13] LABS: Glucose, Whole Blood 196 mg/dL (60-115)
--- NOTE | 2023-03-06 13:02 | P.PNIM_ITS ---
Subjective Subjective Date of Service: 03/06/23 Interval History: seen and examined this morning and updated at bedside history obtained with assistance of unisaw operator follow up for CHF no sob or chest pain Constitutional Constitutional: Denies chills and Denies fever(s) Cardiovascular Cardiovascular: Denies chest pain and Denies dyspnea Respiratory Respiratory: Denies dyspnea Gastrointestinal Gastrointestinal: Denies abdominal pain Physical Exam 2 Vital Signs: Vital Signs: Last Vital Signs Temp 97.2 F 03/06/23 11:04 Pulse 53 03/06/23 11:04 Resp 18 03/06/23 11:04 BP 114/62 03/06/23 11:04 Pulse Ox 96 03/06/23 11:04 O2 Del Method Nasal Cannula 03/06/23 11:04 O2 Flow Rate 2 03/06/23 11:04 BMI result Body Mass Index 29.3 Const: General: cooperative, comfortable, no acute distress, alert and awake Nutritional Appearance: average body habitus Orientation/consciousness: p atient oriented x3 Resp: Effort & Inspection: normal respiratory effort, able to speak in complete sentences, no respiratory distress and no use of accessory muscles Cardio: Rate: regular rate GI: Inspection: No distended Palpation (GI): Soft to palpation and nontender Neuro: General: patient oriented x3, moves all extremities and CN's II-XI intact bilaterally Extrem: General: Yes no pedal edema Objective Data Active Medications Acetaminophen (Acetaminophen 325 Mg Tablet) 650 mg PO Q6H PRN PRN Reason: Pain, Mild (Pain Scale 1-3) Amiodarone HCl (Amiodarone Hcl 200 Mg Tablet) 400 mg PO DAILY@1800 [facility] Amlodipine Besylate (Amlodipine Besylate 10 Mg Tablet) 10 mg PO DAILY [facility]; Protocol Last Admin: 03/06/23 07:59 Dose: 10 mg Documented By: JOLIE Ascorbic Acid (Ascorbic Acid 500 Mg Tablet) 500 mg PO DAILY [facility] Last Admin: 03/06/23 07:59 Dose: 500 mg Documented By: JOLIE Aspirin (Aspirin Enteric Coated 81 Mg Tablet.) 81 mg PO DAILY [facility] Last Admin: 03/06/23 07:59 Dose: 81 mg Documented By: JOLIE Atorvastatin Calcium (Atorvastatin Calcium 80 Mg Tablet) 80 mg PO BEDTIME [facility] Last Admin: 03/05/23 21:45 Dose: 80 mg Documented By: HO.ARMSTRH Brimonidine Tartrate (Brimonidine Tartrate 0.2% Oph 5 Ml Bottle) 1 drop EYE- BOTH BID [facility] Last Admin: 03/06/23 07:59 Dose: 1 drop Documented By: JOLIE Collagenase (Collagenase Clostridium Hist. 30 Gm Tube) 1 appl TOPICAL DAILY [facility]; Protocol Last Admin: 03/06/23 10:32 Dose: 1 appl Documented By: JOLIE Dorzolamide/Timolol (Dorzolamide/Timolo 2.23%/0.68% 10 Ml Drbtl) 1 drop EYE- BOTH BID [facility] Last Admin: 03/06/23 07:59 Dose: 1 drop Documented By: JOLIE Enoxaparin Sodium (Enoxaparin Sodium 40 Mg/0.4 Ml Syringe) 40 mg SUBCUT Q24H [facility] Last Admin: 03/06/23 01:55 Dose: 40 mg Documented By: LISA Furosemide (Furosemide 40 Mg/4 Ml Vial) 40 mg IVPUSH DAILY [facility]; Protocol Last Admin: 03/06/23 07:59 Dose: 40 mg Documented By: JOLIE Gabapentin (Gabapentin 300 Mg Capsule) 300 mg PO BEDTIME [facility] Last Admin: 03/05/23 21:46 Dose: 300 mg Documented By: LISA Lactated Ringer's (Lr) 500 mls @ 75 mls/hr IVCONT .Q6H40M [facility] Stop: 03/06/23 19:40 Insulin Glargine (Insulin Glargine,Hum.Rec.Anlog 100 Unit/Ml 10 Ml Vial) 14 unit SUBCUT BEDTIME [facility] Last Admin: 03/05/23 21:50 Dose: 14 unit Documented By: LISA Losartan Potassium (Losartan Potassium 25 Mg Tablet) 25 mg PO BEDTIME [facility]; Protocol Last Admin: 03/05/23 21:45 Dose: 25 mg Documented By: LISA Melatonin (Melatonin 3 Mg Tablet) 6 mg PO BEDTIME PRN PRN Reason: Insomnia Multivitamins/Vitamin C (Multivitamin Tablet) 1 tab PO BEDTIME [facility] Last Admin: 03/05/23 21:46 Dose: 1 tab Documented By: LISA Ondansetron HCl (Ondansetron Hcl 4 Mg/2 Ml Vial) 4 mg IVPUSH Q6H PRN PRN Reason: Nausea and Vomiting Last Admin: 03/04/23 11:50 Dose: 4 mg Documented By: TARA Senna (Sennosides 8.6 Mg Tablet) 17.2 mg PO BEDTIME PRN PRN Reason: Constipation Sodium Chloride (0.9 % Sodium Chloride Flush 3 Ml Syringe) 3 ml IVFLUSH QSHIFT [facility] Last Admin: 03/06/23 07:59 Dose: 3 ml Documented By: JOLIE Vitamin D (Cholecalciferol (Vitamin D3) 25 Mcg Tablet) 25 mcg PO BEDTIME [facility] Last Admin: 03/05/23 21:46 Dose: 25 mcg Documented By: ABELTRColeen Labs 03/06/23 05:59 03/06/23 05:59 Labs: Laboratory Results - last 24 hr 03/05/23 03/05/23 03/06/23 15:47 21:52 05:59 MCV 92.9 MCH 31.1 MCHC 33.5 RDW 13.3 Plt Count 155 L MPV 11.3 Immature Gran % (Auto) 0.2 Neut % (Auto) 58.6 Lymph % (Auto) 27.5 [place] % (Auto) 9.9 Eos % (Auto) 3.2 Baso % (Auto) 0.6 Lymph # (Auto) 2.8 [place] # (Auto) 1.0 Eos # (Auto) 0.3 Baso # (Auto) 0.1 Abs Immat Gran (auto) 0.02 Absolute Neuts (auto) 6.0 Absolute Nucleated RBC 0.000 Nucleated RBC % (auto) 0.0 Anion Gap 11 L Estim Creat Clear Calc 24.3 Estimated GFR 24 POC Glucose 234 H 198 H Fasting Glucose 201 H Calcium 8.8 Magnesium 2.5 Total Bilirubin 0.4 AST 12 ALT 11 Alkaline Phosphatase 97 Total Protein 6.6 Albumin 3.3 L 03/06/23 03/06/23 07:11 11:04 MCV MCH MCHC RDW Plt Count MPV Immature Gran % (Auto) Neut % (Auto) Lymph % (Auto) [place] % (Auto) Eos % (Auto) Baso % (Auto) Lymph # (Auto) [place] # (Auto) Eos # (Auto) Baso # (Auto) Abs Immat Gran (auto) Absolute Neuts (auto) Absolute Nucleated RBC Nucleated RBC % (auto) Anion Gap Estim Creat Clear Calc Estimated GFR POC Glucose 171 H 196 H Fasting Glucose Calcium Magnesium Total Bilirubin AST ALT Alkaline Phosphatase Total Protein Albumin Assessment and Plan (1) Bradycardia: Status: Acute (2) Acute on chronic diastolic heart failure: Status: Acute (3) Heel ulcer: Status: Acute (4) Frequent PVCs: Status: Acute Plan 77-year-old male with past medical history of diastolic congestive heart failure, type 2 diabetes mellitus, hypertension, glaucoma, anemia, chronic kidney disease and s/p recent right total hip arthroplasty here with acute hypoxic respiratory failure secondary to acute on chronic diastolic congestive heart failure was treated with IV lasix, but now creatinine trending up - will hold lasix Strict intake and output cardiology following>no need for echo as last echo was in December supplemental oxygen as needed Sinus bradycardia per cardiology has frequent PVC in bigeminal pattern and he does not perfuse the PVCs so his effective heart rate is usually half of what is displayed on the monitor tried carvedilol to see if that would suppress PVCs, but now with plan to start amiodorone keep mag >2 and k >4 follow on tele DEAN on CKD 3 creatinine up to 2.61 today will hold lastix and losartan gentle IVF follow renal function if no improvement tomorrow, will involve nephrology Nausea and vomiting resolved Type 2 Diabetes Mellitus continue long acting insulin unclear if on treseba or lantus at baseline (has been filling treseba but list from a says lantus) has been getting 14U lantus here - will try to verify with family/patient trulicity on hold ss, ada diet Hyperlipidemia continue Rosuvastatin Hypertension Losartan on hold for DEAN Amlodipine Glaucoma resume Brimonidine and Dorzolamide Chronic right heel wound, unstagable. present on admission (also has stage 1 pressure injury of left heel POA) seen by wound care nurse; follows with wound clinic does not appear infected elevate when able and continue local wound care Attending Dr. Brito DVT prophylaxis - Lovenox full code Continue hospitalization for treatment of acute congestive heart failure requiring IV diuresis and strict intake and output monitoring patient be done a lesser acute setting as patient may decompensate quickly. Quality Stroke Does the patient have a stroke diagnosis?: No VTE Prior VTE?: No VTE Risk Level:: Medical - moderate - high VTE Device Contraindication: N/A - Device Ordered VTE Drug Contraindication: N/A - Med Ordered
[2023-03-06] MEDS: Lactated Ringers 500 ML 75 ML IVCONT (13:18)
--- NOTE | 2023-03-06 14:34 | P.CDIM_ITS ---
PROVIDER RESPONSE TEXT: To clarify, the appropriate diagnosis supported by the clinical indicators: Pressure (decubitus) ulcer/injury right heel unstageable POA QUERY TEXT: PHYSICIAN'S DOCUMENTATION REQUEST Date of Query: 03/06/2023 08:11 AM EST Patient Name: Deyanira Vitale Admit Date: 03/03/2023 Dear Sarah Carrion, A review of the medical record indicates additional documentation may be needed. Please review below and update the documentation accordingly. Clinical Indicators: Wound care assessment notes dated 03/04 - Right heel unstageable pressure injury - POA Mild odor noted when dressing was removed. Santyl for continued enzymatic debridement/cover with dry gauze followed by ABD pad, gauze wrap. Based on the above, could you please provide further information regarding the ulcer/wound/injury: Pressure (decubitus) ulcer/injury right heel unstageable POA Other Other (explain) Clinically unable to determine (explain) Thank you, Joi Doll, CCS, CDIS Use of terms such as suspected, likely, concern for, or probable (associated with a specific diagnosi s that is being evaluated, monitored, or treated as if it exists) are acceptable and can be coded in the inpatient se tting, when documented at the time of discharge. Please use your independent medical judgment in providing your response. THIS QUERY IS PART OF THE PERMANENT MEDICAL RECORD
[2023-03-06 16:14] LABS: Glucose, Whole Blood 272 mg/dL (60-115)
[2023-03-06] MEDS: Amiodarone HCL 200 MG TABLET 400 MG PO (16:52)
[2023-03-06] MEDS: Acetaminophen 325 MG TABLET 650 MG PO (18:33)
[2023-03-06 19:57] LABS: Glucose, Whole Blood 268 mg/dL (60-115)
[2023-03-06] MEDS: Insulin Glargine,Hum.rec.anlog 100 UNIT/ML 10 ML VIAL 14 UNIT SUBCUT (20:16)
[2023-03-06] MEDS: Cholecalciferol (Vitamin D3) 25 MCG TABLET PO (20:16)
[2023-03-06] MEDS: Melatonin 3 MG TABLET 6 MG PO (20:16)
[2023-03-06] MEDS: Gabapentin 300 MG CAPSULE PO (20:17)
[2023-03-06] MEDS: Multivitamin TABLET 1 TAB PO (20:17)
[2023-03-06] MEDS: Atorvastatin Calcium 80 MG TABLET PO (20:17)
[2023-03-07] MEDS: Enoxaparin Sodium 40 MG/0.4 ML SYRINGE SUBCUT (00:56)
[2023-03-07 03:35] VITALS: BP 140/63; PULSE 58; RESP 18; TEMP 36.2; O2SAT 96
[2023-03-07 05:53] VITALS: BMI 30.5
[2023-03-07 07:00] LABS: MANUAL DIFF FLAG NO
[2023-03-07 07:07] LABS: Basophils Absolute Auto 0.1 X10*3/uL (0.0-0.2); Basophils Percent Auto 0.8 % (0-2); Eosinophils Absolute Auto 0.4 X10*3/uL (0.0-0.4); Eosinophils Percent Auto 4.2 % (0-4); Hematocrit 27.9 % (42.0-52.0); Hemoglobin 9.3 g/dl (14.0-18.0); Imm Gran Abs Auto 0.02 X10*3/uL (0.00-0.03); Imm Gran Pct Auto 0.2 % (0.0-0.4); Lymphocytes Absolute Auto 2.5 X10*3/uL (1.2-4.9); Lymphocytes Percent Auto 28.5 % (20-40); Mean Corpuscular HGB Conc 33.3 g/dl (31.0-36.0); Mean Corpuscular Hemoglobin 31.3 pg (27.0-33.0); Mean Corpuscular Volume 93.9 fL (80.0-98.0); Mean Platelet Volume 11.6 fL (9.4-12.4); Monocytes Absolute Auto 0.9 X10*3/uL (0.1-1.2); Monocytes Percent Auto 9.9 % (2-11); Neutrophils Absolute Auto 4.9 x10*3/uL (2.0-8.3); Neutrophils Percent Auto 56.4 % (45-73); Platelet Count 133 X10*3/uL (160-400); Red Blood Count 2.97 X10*6/uL (4.60-5.80); Red Cell Distribution Width 13.2 % (11.0-16.0); White Blood Count 8.6 X10*3/uL (4.8-10.8)
[2023-03-07 07:19] VITALS: BP 133/60; PULSE 63; RESP 18; TEMP 35.9; O2SAT 88
[2023-03-07 07:20] LABS: Alanine Aminotransferase 18 U/L (0-40); Albumin Level 3.4 g/dL (3.5-5.0); Alkaline Phosphatase 105 U/L (39-117); Anion Gap 15 (12-20); Aspartate Amino Transferase 18 U/L (5-37); Bilirubin Total 0.5 mg/dL (0.0-1.0); Blood Urea Nitrogen 56 mg/dL (9-16); Calcium 8.8 mg/dL (8.4-10.2); Carbon Dioxide 26 mmol/L (22-29); Chloride 104 mmol/L (96-108); Creatinine Clr Calc Pharmacy 25.1; Estimated Glomerular Filt Rate 24; Glucose Fasting 174 mg/dL (60-99); Magnesium 2.5 mg/dL (1.6-2.6); Potassium 4.5 mmol/L (3.3-5.1); Sodium 140 mmol/L (135-145); Total Protein 6.7 g/dL (6.5-8.0)
[2023-03-07] MEDS: amLODIPine Besylate 10 MG TABLET PO (07:56)
[2023-03-07] MEDS: Aspirin Enteric Coated 81 MG TABLET.DR PO (07:56)
[2023-03-07] MEDS: Ascorbic Acid 500 MG TABLET PO (07:57)
[2023-03-07] MEDS: Dorzolamide/Timolo 2.23%/0.68% 10 ML DRBTL 1 DROP EYE-BOTH ×2 (07:57→20:45)
[2023-03-07] MEDS: Collagenase Clostridium Hist. 30 GM TUBE 1 APPL TOPICAL (07:58)
[2023-03-07] MEDS: 0.9 % Sodium Chloride Flush 3 ML SYRINGE IVFLUSH ×3 (07:58→20:48)
[2023-03-07] MEDS: Brimonidine Tartrate 0.2% Oph 5 ML BOTTLE 1 DROP EYE-BOTH ×2 (07:58→20:45)
[2023-03-07 08:44] LABS: B Type Natriuretic Peptide 626 pg/mL (<100)
[2023-03-07 12:00] VITALS: BP 124/52; PULSE 53; RESP 20; TEMP 36.1; O2SAT 96
--- NOTE | 2023-03-07 12:01 | PM.PNCARD ---
Subjective Subjective Date of Service: 03/07/23 Interval history: Seen examined bedside. Creatinine plateaued. Currently off Lasix. Has not had further PVCs since Coreg was stopped he was started on amiodarone. Physical Exam Vital Signs: Last Vital Signs Temp 96.7 F L 03/07/23 07:19 Pulse 63 03/07/23 07:19 Resp 18 03/07/23 07:19 BP 133/60 03/07/23 07:19 Pulse Ox 88 L 03/07/23 07:19 O2 Del Method Room Air 03/07/23 07:19 O2 Flow Rate 2 03/07/23 03:35 BMI result Body Mass Index 30.5 GENERAL APPEARANCE: in no acute distress, pleasant. NECK: no carotid bruit, no jugular venous distention. SKIN: no suspicious lesions, warm and dry. HEART: Systolic murmur, bradycardic. LUNGS: Few crackles at bases. ABDOMEN: soft, nontender. EXTREMITIES: no edema. PERIPHERAL PULSES: equal. NEUROLOGIC: No gross deficits, AAO X 3 Objective Labs and Meds 03/07/23 06:42 03/07/23 06:42 Lab results: Laboratory Results - last 24 hr 03/06/23 03/06/23 03/07/23 16:11 19:51 06:42 WBC 8.6 RBC 2.97 L Hgb 9.3 L Hct 27.9 L MCV 93.9 MCH 31.3 MCHC 33.3 RDW 13.2 Plt Count 133 L MPV 11.6 Immature Gran % (Auto) 0.2 Neut % (Auto) 56.4 Lymph % (Auto) 28.5 [place] % (Auto) 9.9 Eos % (Auto) 4.2 H Baso % (Auto) 0.8 Lymph # (Auto) 2.5 [place] # (Auto) 0.9 Eos # (Auto) 0.4 Baso # (Auto) 0.1 Abs Immat Gran (auto) 0.02 Absolute Neuts (auto) 4.9 Absolute Nucleated RBC 0.000 Nucleated RBC % (auto) 0.0 Sodium 140 Potassium 4.5 Chloride 104 Carbon Dioxide 26 Anion Gap 15 BUN 56 H Creatinine 2.57 H Estim Creat Clear Calc 25.1 Estimated GFR 24 POC Glucose 272 H 268 H Fasting Glucose 174 H Calcium 8.8 Magnesium 2.5 Total Bilirubin 0.5 AST 18 ALT 18 Alkaline Phosphatase 105 B-Natriuretic Peptide 626 H Total Protein 6.7 Albumin 3.4 L Progress Note: A&P Assessment and plan (1) Acute on chronic diastolic heart failure: Status: Acute (2) Frequent PVCs: Status: Acute (3) Bradycardia: Status: Acute Plan 77-year-old gentleman with background history of coronary artery disease status post bypass surgery, recent hip fracture after a fall for which he had surgery in November 2022, diastolic heart failure, hypertension and hyperlipidemia. He also has moderate aortic valve stenosis. He presented with congestive heart failure. He has been diuresed and clinically has improved but unfortunately had a kidney injury now. His Lasix and ARB are held. He also was noticed to have bradycardia on admission. He had frequent premature ventricle complexes in a bigeminal pattern and he does not perfuse the PVCs so his effective heart rate is usually half of what is displayed on the monitor. Doing better with addition of amiodarone. Continue amiodarone 400 mg daily. In 2 weeks will cut the dose to 200 mg daily. Thank you for allowing me to participate in the care of your patient. Please feel free to contact me if you have any questions. Time Spent With Patient Time: Total time managing care of this patient today ____ minutes. Progress Note: Quality Stroke Does the patient have a stroke diagnosis?: No Procedures Date of Service Date of Service: 03/07/23
--- NOTE | 2023-03-07 12:03 | MHC.CLN ---
F/U PO INTAKE REMAINS VARIABLE DIET RX: 2000DM CARDIAC-APPROPRIATE PT RECEIVING ENSURE MAX BID TO PROMOTE WOUND HEALING SUPP PROVIDES 300KCALS, 60G PROTEIN MONITOR PO INTAKE AND ENCOURAGE SUPPLEMENT
[2023-03-07] MEDS: Nicotine 14 MG PATCH.TD24 TRANSDERMA (12:21)
--- NOTE | 2023-03-07 13:12 | PC.NURSE ---
Patient A&OX4. MEHTA to command 4/5, RLE weakness. Pain to touch to right foot d/t heel wound. Dressing changed to right foot per order, foam dressing replaced to left heel. LS dim denies SOB or CP, NSR on tele. BS+X4 abdomen soft non-tender denies nausea/vomiting. Denies headache, dizziness or vision changes. Voiding in urinal clear yellow urine without difficulty. Family came to this RN approximately 1130 reporting patient has complained about headache and blurry vision since starting new meds. Also requesting nicotine patch. [place] BE[place]VIDES notified of concerns. Nicotine patch ordered and placed. OOB to chair in am. Will continue to monitor and report changes
--- NOTE | 2023-03-07 14:15 | PM.CNNEP ---
History of Present Illness Reason for Consult Consult date: 03/07/23 Reason for consult: DEAN Chief Complaint Chief complaint: Bradycardia; CHF Exacerbation History of Present Illness Narrative: 77-year-old male with CKD among multiple other medical issues presented to the emergency room from home via EMS for evaluation after his family called EMS for him not 'feeling unwell'.Evaluation by EMS at scene revealed mild hypoxemia with oxygen saturation of 87% on room airn and so he was started on supplemental Oxygen. On arrival to the ED, he was noted to be bradycardic with heart rate of 30 bpm for which he received IV calcium with improvement. He had been having a dry cough, exertional shortness of breath and feeling unusually weak and at times dizzy prior to arrival. He did not have any associated chest pains or palpitations and initial EKG done showed sinus bradcycardia at 36 bpm. Blood work done revealed elevated BNP at 1222 pg/ml and mild renal insufficiency with a BUN of 44 and creatinine of 1.75 (was 35 and 1.15 respectively in November 2022). He was admitted for CHF exacerbation and sinus bradycardia .His serum creatinine has gone up from baseline. Nephrology was consulted to assist in his clinical care during his current hospital stay. Review of Systems Review of Systems Yes all other systems are reviewed and are negative PMFSH Past Medical History Medical History (Updated 03/06/23 @ 10:33 by Lai Hudson MD) Impacted cerumen of both ears Epidermoid cyst of skin of cheek Mass of face Allergic rhinitis Trigger finger, right middle finger Fracture of distal end of left radius with routine healing Superficial abrasion Pneumonia due to COVID-19 virus Acute hypoxemic respiratory failure due to COVID-19 Distal radius fracture, right Renal insufficiency Trigger finger, right middle finger Respiratory tract infection Aortic stenosis Preoperative clearance Iliac artery stenosis, 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 History of renal calculi Compression fracture of L1 lumbar vertebra Infective endocarditis Glaucoma Tobacco abuse Left carotid stenosis GERD (gastroesophageal reflux disease) Pulmonary nodule Cardiomyopathy Congestive heart failure Overweight (BMI 25.0-29.9) Carotid artery stenosis PVD (peripheral vascular disease) Dyslipidemia Hypertension CAD (coronary artery disease) Diabetic retinopathy associated with type 2 diabetes mellitus Diabetic polyneuropathy associated with type 2 diabetes mellitus CKD stage 3 due to type 2 diabetes mellitus Diabetic 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 diabetes mellitus intermediate (current) use of insulin Family History Family History Father Stomach cancer Mother Diabetes Brother Prostate abscess Surgical History Surgical History Hx of shoulder surgery Hx of coronary artery bypass graft Hx of cataract removal with insertion of prosthetic lens Hx of tonsillectomy Hx of appendectomy Hx of arthroscopy of right knee Social History Social History Household Members: Spouse Housing: Apartment Do you presently have visiting nurse or other home services: Yes Alcohol intake: never Patient Tobacco Use Status: Current everyday Tobacco user Tobacco use type: Cigarette Cigarette Packs Per Day: 0.25 Cigarettes Per Day: 3 Years Smoked: 65 e-Cigarette/Vaping Use: Never Used Second Hand Smoke Exposure: Yes Advance Directives Date on File: 06/08/21 service: No Current occupational status: 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 Cognitive needs: No Hearing needs: No Vision needs: No Meds Allergies Allergy/AdvReac Type Severity Reaction Status Date / Time furosemide AdvReac Intermediate Dizziness Verified 02/21/23 10:03 Active Medications: Current Medications Acetaminophen (Acetaminophen 325 Mg Tablet) 650 mg PO Q6H PRN PRN Reason: Pain, Mild (Pain Scale 1-3) Last Admin: 03/06/23 18:33 Dose: 650 mg Amiodarone HCl (Amiodarone Hcl 200 Mg Tablet) 400 mg PO DAILY@1800 [facility] Last Admin: 03/06/23 16:52 Dose: 400 mg Amlodipine Besylate (Amlodipine Besylate 10 Mg Tablet) 10 mg PO DAILY [facility]; Protocol Last Admin: 03/07/23 07:56 Dose: 10 mg Ascorbic Acid (Ascorbic Acid 500 Mg Tablet) 500 mg PO DAILY [facility] Last Admin: 03/07/23 07:57 Dose: 500 mg Aspirin (Aspirin Enteric Coated 81 Mg Tablet.Dr) 81 mg PO DAILY [facility] Last Admin: 03/07/23 07:56 Dose: 81 mg Atorvastatin Calcium (Atorvastatin Calcium 80 Mg Tablet) 80 mg PO BEDTIME [facility] Last Admin: 03/06/23 20:17 Dose: 80 mg Brimonidine Tartrate (Brimonidine Tartrate 0.2% Oph 5 Ml Bottle) 1 drop EYE-BOTH BID [facility] Last Admin: 03/07/23 07:58 Dose: 1 drop Collagenase (Collagenase Clostridium Hist. 30 Gm Tube) 1 appl TOPICAL DAILY [facility]; Protocol Last Admin: 03/07/23 07:58 Dose: 1 appl Dorzolamide/Timolol (Dorzolamide/Timolo 2.23%/0.68% 10 Ml Drbtl) 1 drop EYE-BOTH BID [facility] Last Admin: 03/07/23 07:57 Dose: 1 drop Enoxaparin Sodium (Enoxaparin Sodium 30 Mg/0.3 Ml Syringe) 30 mg SUBCUT Q24H [facility] Gabapentin (Gabapentin 300 Mg Capsule) 300 mg PO BEDTIME [facility] Last Admin: 03/06/23 20:17 Dose: 300 mg Insulin Glargine (Insulin Glargine,Hum.Rec.Anlog 100 Unit/Ml 10 Ml Vial) 14 unit SUBCUT BEDTIME [facility] Last Admin: 03/06/23 20:16 Dose: 14 unit Losartan Potassium (Losartan Potassium 25 Mg Tablet) 25 mg PO BEDTIME [facility]; Protocol Last Admin: 03/05/23 21:45 Dose: 25 mg Melatonin (Melatonin 3 Mg Tablet) 6 mg PO BEDTIME PRN PRN Reason: Insomnia Last Admin: 03/06/23 20:16 Dose: 6 mg Multivitamins/Vitamin C (Multivitamin Tablet) 1 tab PO BEDTIME [facility] Last Admin: 03/06/23 20:17 Dose: 1 tab Nicotine (Nicotine 14 Mg Patch.Td24) 14 mg TRANSDERMA DAILY [facility] Last Admin: 03/07/23 12:21 Dose: 14 mg Ondansetron HCl (Ondansetron Hcl 4 Mg/2 Ml Vial) 4 mg IVPUSH Q6H PRN PRN Reason: Nausea and Vomiting Last Admin: 03/04/23 11:50 Dose: 4 mg Senna (Sennosides 8.6 Mg Tablet) 17.2 mg PO BEDTIME PRN PRN Reason: Constipation Sodium Chloride (0.9 % Sodium Chloride Flush 3 Ml Syringe) 3 ml IVFLUSH QSHIFT [facility] Last Admin: 03/07/23 07:58 Dose: 3 ml Vitamin D (Cholecalciferol (Vitamin D3) 25 Mcg Tablet) 25 mcg PO BEDTIME [facility] Last Admin: 03/06/23 20:16 Dose: 25 mcg Home Medications Medication Instructions Recorded Confirmed Last Taken Type ascorbic acid (vitamin C) 500 mg 500 mg PO BEDTIME 06/07/21 03/03/23 03/02/23 History tablet dorzolamide 22.3 mg-timolol 6.8 1 drp ophthalmic (eye) BID 06/07/21 03/03/23 03/02/23 History mg/mL eye drops guselkumab 100 mg/mL subcutaneous 100 mg subcut Q8W 06/07/21 03/03/23 Unknown History auto-injector (Tremfya) multivitamin 1 tab PO BEDTIME 06/07/21 03/03/23 03/02/23 History amlodipine 10 mg tablet 10 mg PO BEDTIME 12/09/22 03/03/23 03/02/23 History aspirin 81 mg tablet,delayed 81 mg PO BEDTIME 12/09/22 03/03/23 03/02/23 History release brimonidine 0.15 % eye drops 1 drp ophthalmic (eye) BID 12/09/22 03/03/23 03/02/23 History cholecalciferol (vitamin D3) 25 25 mcg PO BEDTIME 12/09/22 03/03/23 03/02/23 History mcg (1,000 unit) tablet furosemide 20 mg tablet 20 mg PO BEDTIME 12/09/22 03/03/23 03/02/23 History insulin degludec 100 unit/mL (3 20 unit subcut BEDTIME 12/09/22 12/09/22 03/02/23 History mL) subcutaneous pen insulin lispro 100 unit/mL 10 unit subcut TID 12/09/22 12/09/22 03/02/23 History subcutaneous pen (Humalog KwikPen (U-100) Insulin) losartan 25 mg tablet 25 mg PO BEDTIME 12/09/22 03/03/23 03/02/23 History metoprolol succinate 25 mg 25 mg PO BEDTIME 12/09/22 03/03/23 03/02/23 History tablet,extended release 24 hr rosuvastatin 40 mg tablet 40 mg PO BEDTIME 12/09/22 03/03/23 03/02/23 History collagenase clostridium histo. 250 1 appl topical DAILY 03/03/23 03/03/23 03/02/23 History unit/gram topical ointment (Santyl) dulaglutide 1.5 mg/0.5 mL 1.5 mg subcut QWEEK 03/03/23 03/03/23 03/02/23 History subcutaneous pen injector (Trulicity) Physical Exam Vital Signs: Last Vital Signs Temp 97.0 F 03/07/23 12:00 Pulse 53 03/07/23 12:00 Resp 20 03/07/23 12:00 BP 124/52 L 03/07/23 12:00 Pulse Ox 96 03/07/23 12:00 O2 Del Method Room Air 03/07/23 12:00 O2 Flow Rate 2 03/07/23 03:35 BMI result Body Mass Index 30.5 Const General: no acute distress Eyes EOM: EOMs intact bilaterally Neck Neck: Yes supple Resp Auscultation: diminished lung sounds Cardio Jugular venous distension: no JVD GI Palpation (GI): Soft to palpation Neuro General: moves all extremities Results Lab Results 03/07/23 06:42 03/07/23 06:42 Lab results: Chemistry 03/06/23 03/07/23 05:59 06:42 Sodium 139 140 Potassium 4.4 4.5 Carbon Dioxide 29 26 BUN 54 H 56 H Creatinine 2.61 H 2.57 H Calcium 8.8 8.8 Hematology 03/06/23 03/07/23 05:59 06:42 WBC 10.2 8.6 Hgb 9.2 L 9.3 L Plt Count 155 L 133 L Assessment and Plan (1) DEAN (acute kidney injury): Status: Acute Plan DEAN due to tubular injury Has CKD 3 at baseline from vascular disease Had been on losartan/lasix - on hold No further IV fluids Serum creatinine plateaued C/W current supportive management Needs follow up with me when D/Ezequiel Procedures Date of Service Date of Service: 03/07/23
--- NOTE | 2023-03-07 14:58 | PC.NURSE ---
Assumed care at this time.
--- NOTE | 2023-03-07 15:20 | MHC.CM.PN ---
EMR reviewed and per MD rounds, pt is not medically cleared for D/C due to continued management of CHF. CM will continue to follow.
[2023-03-07 16:00] VITALS: BP 138/56; PULSE 60; RESP 18; TEMP 36.1; O2SAT 90
--- NOTE | 2023-03-07 16:30 | HO.PM.IMPN ---
Subjective Subjective Date of Service: 03/07/23 Interval History: seen and examined this morning follow up for chf, DEAN history obtained with assistance of predatory hunter no sob, no cough, feeling well, no complaints Review of Systems Review of Systems: Yes all other systems are reviewed and are negative Constitutional Constitutional: Denies chills and Denies fever(s) Cardiovascular Cardiovascular: Denies chest pain, Denies palpitations and Denies dyspnea Respiratory Respiratory: Denies cough and Denies dyspnea Gastrointestinal Gastrointestinal: Denies abdominal pain Endocrine Endocrine: Denies palpitations Physical Exam Vital Signs: Vital Signs: Last Vital Signs Temp 97 F 03/07/23 16:00 Pulse 60 03/07/23 16:00 Resp 18 03/07/23 16:00 BP 138/56 L 03/07/23 16:00 Pulse Ox 90 L 03/07/23 16:00 O2 Del Method Room Air 03/07/23 16:00 O2 Flow Rate 2 03/07/23 03:35 BMI result Body Mass Index 30.5 Const: General: cooperative, comfortable, no acute distress, alert and awake Nutritional Appearance: average body habitus Orientation/consciousness: patient oriented x3 Resp: Other: bibasilar rales Effort & Inspection: normal respiratory effort, able to speak in complete sentences, no respiratory distress and no use of accessory muscles Cardio: Rate: regular rate GI: Inspection: No distended Palpation (GI): Soft to palpation and nontender Neuro: General: patient oriented x3, moves all extremities and CN's II-XI intact bilaterally Extrem: General: Yes no pedal edema Objective Data Active Medications Acetaminophen (Acetaminophen 325 Mg Tablet) 650 mg PO Q6H PRN PRN Reason: Pain, Mild (Pain Scale 1-3) Last Admin: 03/06/23 18:33 Dose: 650 mg Documented By: JOLIE Amiodarone HCl (Amiodarone Hcl 200 Mg Tablet) 400 mg PO DAILY@1800 [facility] Last Admin: 03/06/23 16:52 Dose: 400 mg Documented By: JOILE Amlodipine Besylate (Amlodipine Besylate 10 Mg Tablet) 10 mg PO DAILY [facility]; Protocol Last Admin: 03/07/23 07:56 Dose: 10 mg Documented By: KAREEN Ascorbic Acid (Ascorbic Acid 500 Mg Tablet) 500 mg PO DAILY [facility] Last Admin: 03/07/23 07:57 Dose: 500 mg Documented By: KAREEN Aspirin (Aspirin Enteric Coated 81 Mg Tablet.Dr) 81 mg PO DAILY [facility] Last Admin: 03/07/23 07:56 Dose: 81 mg Documented By: KAREEN Atorvastatin Calcium (Atorvastatin Calcium 80 Mg Tablet) 80 mg PO BEDTIME [facility] Last Admin: 03/06/23 20:17 Dose: 80 mg Documented By: COURTNEY Brimonidine Tartrate (Brimonidine Tartrate 0.2% Oph 5 Ml Bottle) 1 drop EYE-BOTH BID [facility] Last Admin: 03/07/23 07:58 Dose: 1 drop Documented By: KAREEN Collagenase (Collagenase Clostridium Hist. 30 Gm Tube) 1 appl TOPICAL DAILY [facility]; Protocol Last Admin: 03/07/23 07:58 Dose: 1 appl Documented By: KAREEN Dorzolamide/Timolol (Dorzolamide/Timolo 2.23%/0.68% 10 Ml Drbtl) 1 drop EYE-BOTH BID [facility] Last Admin: 03/07/23 07:57 Dose: 1 drop Documented By: KAREEN Enoxaparin Sodium (Enoxaparin Sodium 30 Mg/0.3 Ml Syringe) 30 mg SUBCUT Q24H [facility] Gabapentin (Gabapentin 300 Mg Capsule) 300 mg PO BEDTIME [facility] Last Admin: 03/06/23 20:17 Dose: 300 mg Documented By: COURTNEY Insulin Glargine (Insulin Glargine,Hum.Rec.Anlog 100 Unit/Ml 10 Ml Vial) 14 unit SUBCUT BEDTIME [facility] Last Admin: 03/06/23 20:16 Dose: 14 unit Documented By: COURTNEY Losartan Potassium (Losartan Potassium 25 Mg Tablet) 25 mg PO BEDTIME [facility]; Protocol Last Admin: 03/05/23 21:45 Dose: 25 mg Documented By: LISA Melatonin (Melatonin 3 Mg Tablet) 6 mg PO BEDTIME PRN PRN Reason: Insomnia Last Admin: 03/06/23 20:16 Dose: 6 mg Documented By: COURTNEY Multivitamins/Vitamin C (Multivitamin Tablet) 1 tab PO BEDTIME [facility] Last Admin: 03/06/23 20:17 Dose: 1 tab Documented By: COURTNEY Nicotine (Nicotine 14 Mg Patch.Td24) 14 mg TRANSDERMA DAILY [facility] Last Admin: 03/07/23 12:21 Dose: 14 mg Documented By: KAREEN Ondansetron HCl (Ondansetron Hcl 4 Mg/2 Ml Vial) 4 mg IVPUSH Q6H PRN PRN Reason: Nausea and Vomiting Last Admin: 03/04/23 11:50 Dose: 4 mg Documented By: TARA Senna (Sennosides 8.6 Mg Tablet) 17.2 mg PO BEDTIME PRN PRN Reason: Constipation Sodium Chloride (0.9 % Sodium Chloride Flush 3 Ml Syringe) 3 ml IVFLUSH QSHIFT [facility] Last Admin: 03/07/23 07:58 Dose: 3 ml Documented By: KAREEN Vitamin D (Cholecalciferol (Vitamin D3) 25 Mcg Tablet) 25 mcg PO BEDTIME [facility] Last Admin: 03/06/23 20:16 Dose: 25 mcg Documented By: COURTNEY Labs 03/07/23 06:42 03/07/23 06:42 Labs: Laboratory Results - last 24 hr 03/06/23 03/07/23 19:51 06:42 MCV 93.9 MCH 31.3 MCHC 33.3 RDW 13.2 Plt Count 133 L MPV 11.6 Immature Gran % (Auto) 0.2 Neut % (Auto) 56.4 Lymph % (Auto) 28.5 [place] % (Auto) 9.9 Eos % (Auto) 4.2 H Baso % (Auto) 0.8 Lymph # (Auto) 2.5 [place] # (Auto) 0.9 Eos # (Auto) 0.4 Baso # (Auto) 0.1 Abs Immat Gran (auto) 0.02 Absolute Neuts (auto) 4.9 Absolute Nucleated RBC 0.000 Nucleated RBC % (auto) 0.0 Anion Gap 15 Estim Creat Clear Calc 25.1 Estimated GFR 24 POC Glucose 268 H Fasting Glucose 174 H Calcium 8.8 Magnesium 2.5 Total Bilirubin 0.5 AST 18 ALT 18 Alkaline Phosphatase 105 B-Natriuretic Peptide 626 H Total Protein 6.7 Albumin 3.4 L Assessment and Plan (1) Bradycardia: Status: Acute (2) Acute on chronic diastolic heart failure: Status: Acute Plan 77-year-old male with past medical history of diastolic congestive heart failure, type 2 diabetes mellitus, hypertension, glaucoma, anemia, chronic kidney disease and s/p recent right total hip arthroplasty here with acute hypoxic respiratory failure secondary to acute on chronic diastolic congestive heart failure was treated with IV lasix, but now creatinine trending up - lasix on hold cardiology following>no need for echo as last echo was in December supplemental oxygen as needed Sinus bradycardia per cardiology has frequent PVC in bigeminal pattern and he does not perfuse the PVCs so his effective heart rate is usually half of what is displayed on the monitor tried carvedilol to see if that would suppress PVCs, improved with amiodorone plan for 400 QD x 2 weeks, then 200 daily keep mag >2 and k >4 follow on tele cardiology following DEAN on CKD 3 creatinine plateaued. likely due to tubular injury lastix and losartan on hold seen by nephrology follow renal function daily Nausea and vomiting resolved Type 2 Diabetes Mellitus continue Lantus trulicity on hold ss, ada diet Hyperlipidemia continue Rosuvastatin Hypertension Losartan on hold for DEAN continue Amlodipine Glaucoma resume Brimonidine and Dorzolamide Chronic right heel wound, unstagable. present on admission (also has stage 1 pressure injury of left heel POA) seen by wound care nurse; follows with wound clinic does not appear infected elevate when able and continue local wound care Tobacco dependence smoking cessation advised NRT Attending Dr. Brito DVT prophylaxis - Lovenox full code Continue hospitalization for treatment of acute congestive heart failure requiring IV diuresis and strict intake and output monitoring patient be done a lesser acute setting as patient may decompensate quickly. Quality Stroke Does the patient have a stroke diagnosis?: No VTE Prior VTE?: No VTE Risk Level:: Medical - moderate - high VTE Device Contraindication: N/A - Device Ordered VTE Drug Contraindication: N/A - Med Ordered
[2023-03-07 16:43] LABS: Glucose, Whole Blood 301 mg/dL (60-115)
[2023-03-07] MEDS: Amiodarone HCL 200 MG TABLET 400 MG PO (17:32)
[2023-03-07] MEDS: Insulin Lispro 100 UNIT/ML 3 ML VIAL 8 UNIT SUBCUT (17:59)
[2023-03-07 20:00] VITALS: BP 161/70; PULSE 65; RESP 18; TEMP 36.8; O2SAT 96
[2023-03-07] MEDS: Cholecalciferol (Vitamin D3) 25 MCG TABLET PO (20:45)
[2023-03-07] MEDS: Multivitamin TABLET 1 TAB PO (20:45)
[2023-03-07] MEDS: Gabapentin 300 MG CAPSULE PO (20:45)
[2023-03-07] MEDS: Atorvastatin Calcium 80 MG TABLET PO (20:45)
[2023-03-07 21:20] LABS: Glucose, Whole Blood 242 mg/dL (60-115)
[2023-03-07] MEDS: Insulin Glargine,Hum.rec.anlog 100 UNIT/ML 10 ML VIAL 14 UNIT SUBCUT (21:40)
[2023-03-07] MEDS: Insulin Lispro 100 UNIT/ML 3 ML VIAL SUBCUT (21:41)
[2023-03-07 23:48] VITALS: BP 157/91; PULSE 65; RESP 17; TEMP 36.7; O2SAT 90
[2023-03-08] MEDS: Melatonin 3 MG TABLET 6 MG PO (00:02)
[2023-03-08] MEDS: Acetaminophen 325 MG TABLET 650 MG PO (00:02)
[2023-03-08] MEDS: Enoxaparin Sodium 30 MG/0.3 ML SYRINGE SUBCUT (00:03)
[2023-03-08 03:34] VITALS: BP 156/68; PULSE 62; RESP 17; TEMP 36.7; O2SAT 92
[2023-03-08 06:00] VITALS: BMI 30.8
[2023-03-08 07:23] VITALS: BP 128/58; PULSE 55; RESP 18; TEMP 36.1; O2SAT 95
[2023-03-08 07:40] LABS: Glucose, Whole Blood 173 mg/dL (60-115)
[2023-03-08 07:41] LABS: Alanine Aminotransferase 19 U/L (0-40); Albumin Level 3.7 g/dL (3.5-5.0); Alkaline Phosphatase 114 U/L (39-117); Anion Gap 15 (12-20); Aspartate Amino Transferase 17 U/L (5-37); Bilirubin Total 0.5 mg/dL (0.0-1.0); Blood Urea Nitrogen 52 mg/dL (9-16); Calcium 9.3 mg/dL (8.4-10.2); Carbon Dioxide 28 mmol/L (22-29); Chloride 104 mmol/L (96-108); Creatinine Clr Calc Pharmacy 29.8; Estimated Glomerular Filt Rate 30; Glucose Fasting 190 mg/dL (60-99); Magnesium 2.4 mg/dL (1.6-2.6); Potassium 5.2 mmol/L (3.3-5.1); Sodium 142 mmol/L (135-145); Total Protein 7.2 g/dL (6.5-8.0)
[2023-03-08] MEDS: Insulin Lispro 100 UNIT/ML 3 ML VIAL SUBCUT ×4 (07:56→20:48)
[2023-03-08] MEDS: Ascorbic Acid 500 MG TABLET PO (07:57)
[2023-03-08] MEDS: amLODIPine Besylate 10 MG TABLET PO (07:57)
[2023-03-08] MEDS: Aspirin Enteric Coated 81 MG TABLET.DR PO (07:57)
[2023-03-08] MEDS: Dorzolamide/Timolo 2.23%/0.68% 10 ML DRBTL 1 DROP EYE-BOTH ×2 (07:58→20:50)
[2023-03-08] MEDS: Brimonidine Tartrate 0.2% Oph 5 ML BOTTLE 1 DROP EYE-BOTH ×2 (07:58→20:50)
[2023-03-08] MEDS: Collagenase Clostridium Hist. 30 GM TUBE 1 APPL TOPICAL (07:58)
[2023-03-08] MEDS: 0.9 % Sodium Chloride Flush 3 ML SYRINGE IVFLUSH ×3 (07:59→20:49)
--- NOTE | 2023-03-08 10:19 | P.PNIM_ITS ---
Subjective Subjective Date of Service: 03/08/23 Interval History: seen and examined this morning follow up for CHF, DEAN reporting blurry vision both eyes present for several days no other complaints, no sob, no cough, no chest pain Review of Systems Review of Systems: Yes all other systems are reviewed and are negative Constitutional Constitutional: Denies chills and Denies fever(s) Cardiovascular Cardiovascular: Denies chest pain, Denies palpitations and Denies dyspnea Respiratory Respiratory: Denies cough and Denies dyspnea Endocrine Endocrine: Denies palpitations Physical Exam 2 Vital Signs: Vital Signs: Last Vital Signs Temp 97 F 03/08/23 07:23 Pulse 55 03/08/23 07:23 Resp 18 03/08/23 07:23 BP 128/58 L 03/08/23 07:23 Pulse Ox 95 03/08/23 07:23 O2 Del Method Room Air 03/08/23 07:23 O2 Flow Rate 2 03/07/23 03:35 BMI result Body Mass Index 30.8 Const: General: cooperative, comfortable, no acute distress, alert and awake Nutritional Appearance: average body habitus Orientation/consciousness: p atient oriented x3 Resp: Effort & Inspection: normal respiratory effort, able to speak in complete sentences, no respiratory distress and no use of accessory muscles Cardio: Rate: bradycardic Heart sounds: Murmur heart sound present GI: Inspection: No distended Palpation (GI): Soft to palpation and nontender Neuro: General: patient oriented x3, moves all extremities and CN's II-XI intact bilaterally Extrem: General: Yes no pedal edema Objective Data Active Medications Acetaminophen (Acetaminophen 325 Mg Tablet) 650 mg PO Q6H PRN PRN Reason: Pain, Mild (Pain Scale 1-3) Last Admin: 03/08/23 00:02 Dose: 650 mg Documented By: AIMEE Amiodarone HCl (Amiodarone Hcl 200 Mg Tablet) 400 mg PO DAILY@1800 [facility] Last Admin: 03/07/23 17:32 Dose: 400 mg Documented By: LUIS Amlodipine Besylate (Amlodipine Besylate 10 Mg Tablet) 10 mg PO DAILY [facility]; Protocol Last Admin: 03/08/23 07:57 Dose: 10 mg Documented By: RUPERT Ascorbic Acid (Ascorbic Acid 500 Mg Tablet) 500 mg PO DAILY [facility] Last Admin: 03/08/23 07:57 Dose: 500 mg Documented By: RUPERT Aspirin (Aspirin Enteric Coated 81 Mg Tablet.Dr) 81 mg PO DAILY [facility] Last Admin: 03/08/23 07:57 Dose: 81 mg Documented By: RUPERT Atorvastatin Calcium (Atorvastatin Calcium 80 Mg Tablet) 80 mg PO BEDTIME [facility] Last Admin: 03/07/23 20:45 Dose: 80 mg Documented By: ANNETTE Brimonidine Tartrate (Brimonidine Tartrate 0.2% Oph 5 Ml Bottle) 1 drop EYE- BOTH BID [facility] Last Admin: 03/08/23 07:58 Dose: 1 drop Documented By: RUPERT Collagenase (Collagenase Clostridium Hist. 30 Gm Tube) 1 appl TOPICAL DAILY [facility]; Protocol Last Admin: 03/08/23 07:58 Dose: 1 appl Documented By: RUPERT Dextrose (Dextrose 50 % 25 Gm/50 Ml Syringe) 25 gm IVPUSH Q15M PRN; Protocol PRN Reason: per Hypoglycemia Standing Ord. Dorzolamide/Timolol (Dorzolamide/Timolo 2.23%/0.68% 10 Ml Drbtl) 1 drop EYE- BOTH BID [facility] Last Admin: 03/08/23 07:58 Dose: 1 drop Documented By: RUPERT Enoxaparin Sodium (Enoxaparin Sodium 30 Mg/0.3 Ml Syringe) 30 mg SUBCUT Q24H [facility] Last Admin: 03/08/23 00:03 Dose: 30 mg Documented By: AIMEE Gabapentin (Gabapentin 300 Mg Capsule) 300 mg PO BEDTIME [facility] Last Admin: 03/07/23 20:45 Dose: 300 mg Documented By: ANNETTE Glucose (Glucose Gel 15 Gm Gel..Gram.) 15 gm PO Q15M PRN; Protocol PRN Reason: per Hypoglycemia Standing Ord. Insulin Glargine (Insulin Glargine,Hum.Rec.Anlog 100 Unit/Ml 10 Ml Vial) 14 unit SUBCUT BEDTIME [facility] Last Admin: 03/07/23 21:40 Dose: 14 unit Documented By: AIMEE Insulin Human Lispro (Insulin Lispro 100 Unit/Ml 3 Ml Vial) 0 unit SUBCUT QIDACHS [facility]; Protocol Last Admin: 03/08/23 07:56 Dose: 2 unit Documented By: RUPERT Losartan Potassium (Losartan Potassium 25 Mg Tablet) 25 mg PO BEDTIME [facility]; Protocol Last Admin: 03/05/23 21:45 Dose: 25 mg Documented By: LISA Melatonin (Melatonin 3 Mg Tablet) 6 mg PO BEDTIME PRN PRN Reason: Insomnia Last Admin: 03/08/23 00:02 Dose: 6 mg Documented By: AIMEE Multivitamins/Vitamin C (Multivitamin Tablet) 1 tab PO BEDTIME [facility] Last Admin: 03/07/23 20:45 Dose: 1 tab Documented By: ANNETTE Nicotine (Nicotine 14 Mg Patch.Td24) 14 mg TRANSDERMA DAILY [facility] Last Admin: 03/07/23 12:21 Dose: 14 mg Documented By: KAREEN Ondansetron HCl (Ondansetron Hcl 4 Mg/2 Ml Vial) 4 mg IVPUSH Q6H PRN PRN Reason: Nausea and Vomiting Last Admin: 03/04/23 11:50 Dose: 4 mg Documented By: TARA Senna (Sennosides 8.6 Mg Tablet) 17.2 mg PO BEDTIME PRN PRN Reason: Constipation Sodium Chloride (0.9 % Sodium Chloride Flush 3 Ml Syringe) 3 ml IVFLUSH QSHIFT [facility] Last Admin: 03/08/23 07:59 Dose: 3 ml Documented By: RUPERT Vitamin D (Cholecalciferol (Vitamin D3) 25 Mcg Tablet) 25 mcg PO BEDTIME [facility] Last Admin: 03/07/23 20:45 Dose: 25 mcg Documented By: ANNETTE Labs 03/07/23 06:42 03/08/23 07:01 Labs: Laboratory Results - last 24 hr 03/07/23 03/07/23 03/08/23 16:40 21:13 07:01 Hold Purple Top SEE NOTE Anion Gap 15 Estim Creat Clear Calc 29.8 Estimated GFR 30 POC Glucose 301 H 242 H Fasting Glucose 190 H Calcium 9.3 Magnesium 2.4 Total Bilirubin 0.5 AST 17 ALT 19 Alkaline Phosphatase 114 Total Protein 7.2 Albumin 3.7 03/08/23 07:20 Hold Purple Top Anion Gap Estim Creat Clear Calc Estimated GFR POC Glucose 173 H Fasting Glucose Calcium Magnesium Total Bilirubin AST ALT Alkaline Phosphatase Total Protein Albumin Microbiology Microbiology Results: Microbiology 03/02/23 22:46 Blood Culture - Final Blood - Venous No growth after 5 days. 03/02/23 20:24 Blood Culture - Final Blood - Venous No growth after 5 days. Assessment and Plan (1) Bradycardia: Status: Acute (2) Acute on chronic diastolic heart failure: Status: Acute (3) DEAN (acute kidney injury): Status: Acute Plan 77-year-old male with past medical history of diastolic congestive heart failure, type 2 diabetes mellitus, hypertension, glaucoma, anemia, chronic kidney disease and s/p recent right total hip arthroplasty here with acute hypoxic respiratory failure secondary to acute on chronic diastolic congestive heart failure was treated with IV lasix, but now creatinine trending up - lasix d/c follow fluid status closely cardiology following>no need for echo as last echo was in December weaned off supplemental oxygen and on room air Sinus bradycardia per cardiology has frequent PVC in bigeminal pattern and he does not perfuse the PVCs so his effective heart rate is half of what is displayed on the monitor on Toprol XL at baseline - changed to carvedilol but did not suppress PVCs so subsequently discontinued started on amiodorone 03/06 and PVCs suppressed plan for 400 QD x 2 weeks (end date 03/20), then 200 daily keep mag >2 and k >4 follow on tele cardiology following DEAN on CKD 3 likely due to tubular injury creatinine beginning to trend down, 2.17 today lastix d/c and losartan on hold nephrology following follow renal function daily Nausea and vomiting resolved Type 2 Diabetes Mellitus continue Lantus trulicity on hold ss, ada diet Hyperlipidemia continue Rosuvastatin Hypertension Losartan on hold for DEAN continue Amlodipine Glaucoma resume Brimonidine and Dorzolamide reporting blurry vision - bilateral outpatient optometry follow up Chronic right heel wound, unstagable. present on admission (also has stage 1 pressure injury of left heel POA) seen by wound care nurse; follows with wound clinic does not appear infected elevate when able and continue local wound care Tobacco dependence smoking cessation advised NRT Attending Dr. Schroeder DVT prophylaxis - Lovenox full code Continue hospitalization for treatment of acute congestive heart failure requiring IV diuresis and strict intake and output monitoring patient be done a lesser acute setting as patient may decompensate quickly. Quality Stroke Does the patient have a stroke diagnosis?: No VTE Prior VTE?: No VTE Risk Level:: Medical - moderate - high VTE Device Contraindication: N/A - Device Ordered VTE Drug Contraindication: N/A - Med Ordered
--- NOTE | 2023-03-08 10:29 | PM.PNCARD ---
Subjective Subjective Date of Service: 03/08/23 Interval history: Seen examined at bedside. Telemetry showing PVCs but not as frequent as before. Creatinine is improving slowly. He is off diuretics and ARB. Physical Exam Vital Signs: Last Vital Signs Temp 97 F 03/08/23 07:23 Pulse 55 03/08/23 07:23 Resp 18 03/08/23 07:23 BP 128/58 L 03/08/23 07:23 Pulse Ox 95 03/08/23 07:23 O2 Del Method Room Air 03/08/23 07:23 O2 Flow Rate 2 03/07/23 03:35 BMI result Body Mass Index 30.8 GENERAL APPEARANCE: in no acute distress, pleasant. NECK: no carotid bruit, + jugular venous distention. SKIN: no suspicious lesions, warm and dry. HEART: Systolic murmur, bradycardic. LUNGS: Clear to auscultation. ABDOMEN: soft, nontender. EXTREMITIES: no edema. PERIPHERAL PULSES: equal. NEUROLOGIC: No gross deficits, AAO X 3 Objective Labs and Meds 03/07/23 06:42 03/08/23 07:01 Lab results: Laboratory Results - last 24 hr 03/07/23 03/07/23 03/08/23 16:40 21:13 07:01 Hold Purple Top SEE NOTE Sodium 142 Potassium 5.2 H Chloride 104 Carbon Dioxide 28 Anion Gap 15 BUN 52 H Creatinine 2.17 H Estim Creat Clear Calc 29.8 Estimated GFR 30 POC Glucose 301 H 242 H Fasting Glucose 190 H Calcium 9.3 Magnesium 2.4 Total Bilirubin 0.5 AST 17 ALT 19 Alkaline Phosphatase 114 Total Protein 7.2 Albumin 3.7 03/08/23 07:20 Hold Purple Top Sodium Potassium Chloride Carbon Dioxide Anion Gap BUN Creatinine Estim Creat Clear Calc Estimated GFR POC Glucose 173 H Fasting Glucose Calcium Magnesium Total Bilirubin AST ALT Alkaline Phosphatase Total Protein Albumin Progress Note: A&P Assessment and plan (1) Acute on chronic diastolic heart failure: Status: Acute Plan [age] year gentleman with acute on chronic diastolic heart failure. He was diuresed but unfortunate developed acute kidney injury. Diuretics are on hold and ARB is also on hold. Blood pressure is well controlled. He has some JVD today and creatinine is improving. I think his oral diuretics should be resumed at 40 mg Lasix daily. ARB can be held for now. PVCs are improved with the amiodarone and he should continue amiodarone 400 mg daily for next 2 weeks and then the dose should be decreased to 200 mg daily. Stop the metoprolol succinate. Thank you for allowing me to participate in the care of your patient. Please feel free to contact me if you have any questions. Time Spent With Patient Time: Total time managing care of this patient today ____ minutes. Progress Note: Quality Stroke Does the patient have a stroke diagnosis?: No Procedures Date of Service Date of Service: 03/08/23
[2023-03-08 11:04] VITALS: BP 133/63; PULSE 53; RESP 18; TEMP 36.1; O2SAT 96
[2023-03-08] MEDS: Nicotine 14 MG PATCH.TD24 TRANSDERMA (11:11)
[2023-03-08 11:33] LABS: Glucose, Whole Blood 193 mg/dL (60-115)
[2023-03-08 15:58] LABS: Glucose, Whole Blood 159 mg/dL (60-115)
[2023-03-08 16:00] VITALS: BP 174/74; PULSE 94; RESP 20; TEMP 36.7; O2SAT 94
[2023-03-08] MEDS: Amiodarone HCL 200 MG TABLET 400 MG PO (17:08)
[2023-03-08 19:11] VITALS: BP 152/65; PULSE 70; RESP 18; TEMP 36.6; O2SAT 94
[2023-03-08] MEDS: Insulin Glargine,Hum.rec.anlog 100 UNIT/ML 10 ML VIAL 14 UNIT SUBCUT (20:48)
[2023-03-08] MEDS: Gabapentin 300 MG CAPSULE PO (20:49)
[2023-03-08] MEDS: Atorvastatin Calcium 80 MG TABLET PO (20:50)
[2023-03-08] MEDS: Cholecalciferol (Vitamin D3) 25 MCG TABLET PO (20:50)
[2023-03-08] MEDS: Multivitamin TABLET 1 TAB PO (20:50)
[2023-03-08 21:03] LABS: Glucose, Whole Blood 163 mg/dL (60-115)
[2023-03-08 23:51] VITALS: BP 139/66; PULSE 71; RESP 18; TEMP 36.8; O2SAT 96
[2023-03-09] MEDS: Enoxaparin Sodium 30 MG/0.3 ML SYRINGE SUBCUT (00:21)
[2023-03-09] MEDS: Melatonin 3 MG TABLET 6 MG PO (01:44)
[2023-03-09] MEDS: Acetaminophen 325 MG TABLET 650 MG PO (01:44)
[2023-03-09] MEDS: ondansetron HCL 4 MG/2 ML VIAL IVPUSH (03:38)
[2023-03-09 06:00] VITALS: BMI 30.9
[2023-03-09 06:51] VITALS: BP 149/65; PULSE 70; RESP 17; TEMP 36.6; O2SAT 90
[2023-03-09 07:11] LABS: Glucose, Whole Blood 161 mg/dL (60-115)
[2023-03-09 07:50] LABS: Anion Gap 14 (12-20); Blood Urea Nitrogen 46 mg/dL (9-16); Calcium 9.1 mg/dL (8.4-10.2); Carbon Dioxide 28 mmol/L (22-29); Chloride 105 mmol/L (96-108); Creatinine Clr Calc Pharmacy 36.9; Estimated Glomerular Filt Rate 38; Glucose Random 170 mg/dL (60-115); Potassium 4.5 mmol/L (3.3-5.1); Sodium 142 mmol/L (135-145)
[2023-03-09] MEDS: Nicotine 14 MG PATCH.TD24 TRANSDERMA (08:19)
[2023-03-09] MEDS: Insulin Lispro 100 UNIT/ML 3 ML VIAL SUBCUT ×3 (08:19→17:17)
[2023-03-09] MEDS: Dorzolamide/Timolo 2.23%/0.68% 10 ML DRBTL 1 DROP EYE-BOTH ×2 (08:20→22:10)
[2023-03-09] MEDS: Ascorbic Acid 500 MG TABLET PO (08:20)
[2023-03-09] MEDS: Brimonidine Tartrate 0.2% Oph 5 ML BOTTLE 1 DROP EYE-BOTH ×2 (08:20→22:10)
[2023-03-09] MEDS: 0.9 % Sodium Chloride Flush 3 ML SYRINGE IVFLUSH ×3 (08:20→22:10)
[2023-03-09] MEDS: Furosemide 40 MG TABLET PO (08:20)
[2023-03-09] MEDS: Aspirin Enteric Coated 81 MG TABLET.DR PO (08:20)
[2023-03-09] MEDS: amLODIPine Besylate 10 MG TABLET PO (08:20)
[2023-03-09 11:00] VITALS: BP 148/72; PULSE 68; RESP 16; TEMP 36.1; O2SAT 95
[2023-03-09 11:13] LABS: Glucose, Whole Blood 195 mg/dL (60-115)
[2023-03-09] MEDS: Lactulose 20 GM/30 ML SOLUTION PO (11:37)
[2023-03-09] MEDS: polyethylene glycoL 3350 17 GM POWD.PACK PO (11:37)
[2023-03-09] MEDS: Isosorbide Mononitrate 30 MG TAB.ER.24H PO (11:37)
--- NOTE | 2023-03-09 13:04 | HO.PM.IMPN ---
Subjective Subjective Date of Service: 03/09/23 Interval History: frequent PVCs/bigeminy/trigeminy though no symptoms c/o constipation This history was taken in Ethiopian from the patient. Review of Systems Review of Systems: Yes all other systems are reviewed and are negative Physical Exam Vital Signs: Vital Signs: Last Vital Signs Temp 97 F 03/09/23 11:00 Pulse 68 03/09/23 11:00 Resp 16 03/09/23 11:00 BP 148/72 H 03/09/23 11:00 Pulse Ox 95 03/09/23 11:00 O2 Del Method Room Air 03/09/23 11:00 O2 Flow Rate 2 03/07/23 03:35 BMI result Body Mass Index 30.9 Gen: in no acute distress HEENT: sclera anicteric, moist mucus membranes Neck: supple Lungs: clear to auscultation bilaterally Heart: irregular, 2/6 systolic murmur at base Abd: soft, non-tender, non-distended Ext: no edema Skin: warm/well-perfused Neuro: alert and oriented x3, no focal findings Psych: appropriate affect Objective Data Active Medications Acetaminophen (Acetaminophen 325 Mg Tablet) 650 mg PO Q6H PRN PRN Reason: Pain, Mild (Pain Scale 1-3) Last Admin: 03/09/23 01:44 Dose: 650 mg Documented By: AIMEE Amiodarone HCl (Amiodarone Hcl 200 Mg Tablet) 400 mg PO DAILY@1800 [facility] Last Admin: 03/08/23 17:08 Dose: 400 mg Documented By: KEANU Amlodipine Besylate (Amlodipine Besylate 10 Mg Tablet) 10 mg PO DAILY [facility]; Protocol Last Admin: 03/09/23 08:20 Dose: 10 mg Documented By: RUFINA Ascorbic Acid (Ascorbic Acid 500 Mg Tablet) 500 mg PO DAILY [facility] Last Admin: 03/09/23 08:20 Dose: 500 mg Documented By: RUFINA Aspirin (Aspirin Enteric Coated 81 Mg Tablet.) 81 mg PO DAILY [facility] Last Admin: 03/09/23 08:20 Dose: 81 mg Documented By: RUFINA Atorvastatin Calcium (Atorvastatin Calcium 80 Mg Tablet) 80 mg PO BEDTIME [facility] Last Admin: 03/08/23 20:50 Dose: 80 mg Documented By: AIMEE Brimonidine Tartrate (Brimonidine Tartrate 0.2% Oph 5 Ml Bottle) 1 drop EYE-BOTH BID [facility] Last Admin: 03/09/23 08:20 Dose: 1 drop Documented By: RUFINA Collagenase (Collagenase Clostridium Hist. 30 Gm Tube) 1 appl TOPICAL DAILY [facility]; Protocol Last Admin: 03/08/23 07:58 Dose: 1 appl Documented By: RUPERT Dextrose (Dextrose 50 % 25 Gm/50 Ml Syringe) 25 gm IVPUSH Q15M PRN; Protocol PRN Reason: per Hypoglycemia Standing Ord. Dorzolamide/Timolol (Dorzolamide/Timolo 2.23%/0.68% 10 Ml Drbtl) 1 drop EYE-BOTH BID [facility] Last Admin: 03/09/23 08:20 Dose: 1 drop Documented By: RUFINA Enoxaparin Sodium (Enoxaparin Sodium 30 Mg/0.3 Ml Syringe) 30 mg SUBCUT Q24H [facility] Last Admin: 03/09/23 00:21 Dose: 30 mg Documented By: AIMEE Furosemide (Furosemide 40 Mg Tablet) 40 mg PO DAILY [facility]; Protocol Last Admin: 03/09/23 08:20 Dose: 40 mg Documented By: RUFINA Gabapentin (Gabapentin 300 Mg Capsule) 300 mg PO BEDTIME [facility] Last Admin: 03/08/23 20:49 Dose: 300 mg Documented By: AIMEE Glucose (Glucose Gel 15 Gm Gel..Gram.) 15 gm PO Q15M PRN; Protocol PRN Reason: per Hypoglycemia Standing Ord. Insulin Glargine (Insulin Glargine,Hum.Rec.Anlog 100 Unit/Ml 10 Ml Vial) 14 unit SUBCUT BEDTIME [facility] Last Admin: 03/08/23 20:48 Dose: 14 unit Documented By: AIMEE Insulin Human Lispro (Insulin Lispro 100 Unit/Ml 3 Ml Vial) 0 unit SUBCUT QIDACHS [facility]; Protocol Last Admin: 03/09/23 11:37 Dose: 2 unit Documented By: RUFINA Isosorbide Mononitrate (Isosorbide Mononitrate 30 Mg Tab.Er.24h) 30 mg PO DAILY [facility]; Protocol Last Admin: 03/09/23 11:37 Dose: 30 mg Documented By: RUFINA Melatonin (Melatonin 3 Mg Tablet) 6 mg PO BEDTIME PRN PRN Reason: Insomnia Last Admin: 03/09/23 01:44 Dose: 6 mg Documented By: AIMEE Multivitamins/Vitamin C (Multivitamin Tablet) 1 tab PO BEDTIME [facility] Last Admin: 03/08/23 20:50 Dose: 1 tab Documented By: AIMEE Nicotine (Nicotine 14 Mg Patch.Td24) 14 mg TRANSDERMA DAILY [facility] Last Admin: 03/09/23 08:19 Dose: 14 mg Documented By: RUFINA Ondansetron HCl (Ondansetron Hcl 4 Mg/2 Ml Vial) 4 mg IVPUSH Q6H PRN PRN Reason: Nausea and Vomiting Last Admin: 03/09/23 03:38 Dose: 4 mg Documented By: ANNETTE Polyethylene Glycol (Polyethylene Glycol 3350 17 Gm Powd.Pack) 17 gm PO DAILY [facility] Last Admin: 03/09/23 11:37 Dose: 17 gm Documented By: RUFINA Senna/Docusate Sodium (Sennosides/Docusate Sodium Tablet) 2 tab PO BID [facility] Last Admin: 03/09/23 11:43 Dose: Not Given Documented By: RUFINA Non-Admin Reason: Patient Refused Sodium Chloride (0.9 % Sodium Chloride Flush 3 Ml Syringe) 3 ml IVFLUSH QSHIFT [facility] Last Admin: 03/09/23 08:20 Dose: 3 ml Documented By: RUFINA Vitamin D (Cholecalciferol (Vitamin D3) 25 Mcg Tablet) 25 mcg PO BEDTIME [facility] Last Admin: 03/08/23 20:50 Dose: 25 mcg Documented By: AIMEE Labs 03/07/23 06:42 03/09/23 06:36 Labs: Laboratory Results - last 24 hr 03/08/23 03/08/23 03/09/23 15:53 20:42 06:36 Hold Purple Top SEE NOTE Anion Gap 14 Estim Creat Clear Calc 36.9 Estimated GFR 38 POC Glucose 159 H 163 H Random Glucose 170 H Calcium 9.1 03/09/23 03/09/23 06:54 10:59 Hold Purple Top Anion Gap Estim Creat Clear Calc Estimated GFR POC Glucose 161 H 195 H Random Glucose Calcium Assessment and Plan (1) Bradycardia: Status: Acute (2) Acute on chronic diastolic heart failure: Status: Acute (3) DEAN (acute kidney injury): Status: Acute Plan d7 77yo M with diastolic HF, DM2, HTN, glaucoma, anemia, CKD3, recent R VALERIY admitted with acute hypoxia due to CHF exacerbation acute hypoxic resp failure due to acute/chronic HFpEF - diuresed with IV furosemide until developed DEAN; now on PO furosemide and CR improving - weaned off O2 sinus bradycardia frequent PVCs - effective heart rate is half of what is on monitor due to bigeminy; was on metoprolol succinate at baseline, changed to carvedilol but did not suppress PVCs so started on amiodraone 03/06- plan 400 mg daily x 2 wk, then on 03/20 200 mg daily - keep K>4, Mg>2 - Cardiology following DEAN/CKD3 - likely due to diuresis; improving - losartan on hold and back on PO furosemide DM2 - basal-bolus insulin HLD - statin HTN - losartan held for DEAN, continue amlodipine, start Imdur glaucoma - brimodine/timolol + dorzolamide - reporting bilateral blurry vision- needs outpt ophthalmology follow-up chronic R heel wound, unstageable + present on admission, also stage 1 pressure injury of R heel present on admission - wound care consulted: 7. Left Heel - Apply Foam dressing to protect from friction and aid in off loading pressure. Elevate off of bed surface with use of pilllow or heel boot. 8. Right Heel - Elevate heel off of surface of bed Cleanse with normal saline, pat dry. ?Apply Triad to the immediate jr wound, apply thick layer of Santyl to entire wound bed, cover with dry gauze, followed by ABD pad, gauze wrap. Change Daily. Follow up outpt with Wound Clinic at time of Discharge. tobacco abuse - NRT VTE ppx - LMWH dispo - PT eval requested In my clinical judgment, the patient requires continued inpatient hospitalization for the following reasons: DEAN, telemetry Total time managing care of this patient today: 40 minutes. Quality Stroke Does the patient have a stroke diagnosis?: No VTE Prior VTE?: No VTE Risk Level:: Medical - moderate - high VTE Device Contraindication: N/A - Device Ordered VTE Drug Contraindication: N/A - Med Ordered
--- NOTE | 2023-03-09 13:24 | PM.PNCARD ---
Subjective Subjective Date of Service: 03/09/23 Interval history: Seen examined at bedside. Feeling better. Creatinine improving. Physical Exam Vital Signs: Last Vital Signs Temp 97 F 03/09/23 11:00 Pulse 68 03/09/23 11:00 Resp 16 03/09/23 11:00 BP 148/72 H 03/09/23 11:00 Pulse Ox 95 03/09/23 11:00 O2 Del Method Room Air 03/09/23 11:00 O2 Flow Rate 2 03/07/23 03:35 BMI result Body Mass Index 30.9 GENERAL APPEARANCE: in no acute distress, pleasant. NECK: no carotid bruit, + jugular venous distention. SKIN: no suspicious lesions, warm and dry. HEART: Systolic murmur, bradycardic. LUNGS: Clear to auscultation. ABDOMEN: soft, nontender. EXTREMITIES: no edema. PERIPHERAL PULSES: equal. NEUROLOGIC: No gross deficits, AAO X 3 Objective Labs and Meds 03/07/23 06:42 03/09/23 06:36 Lab results: Laboratory Results - last 24 hr 03/08/23 03/08/23 03/09/23 15:53 20:42 06:36 Hold Purple Top SEE NOTE Sodium 142 Potassium 4.5 Chloride 105 Carbon Dioxide 28 Anion Gap 14 BUN 46 H Creatinine 1.76 H Estim Creat Clear Calc 36.9 Estimated GFR 38 POC Glucose 159 H 163 H Random Glucose 170 H Calcium 9.1 03/09/23 03/09/23 06:54 10:59 Hold Purple Top Sodium Potassium Chloride Carbon Dioxide Anion Gap BUN Creatinine Estim Creat Clear Calc Estimated GFR POC Glucose 161 H 195 H Random Glucose Calcium Progress Note: A&P Assessment and plan (1) Bradycardia: Status: Acute (2) Acute on chronic diastolic heart failure: Status: Acute Plan Pleasant 77-year-old gentleman with congestive heart failure. Diuresed with kidney injury and ARB and Lasix were held and resumed Lasix today. Hold ARB. Add isosorbide mononitrate 30 mg daily. Overall clinically stable. Continue amiodarone 400 mg daily for 14 days, after than 200 mg daily. Can go home from our end. Time Spent With Patient Time: Total time managing care of this patient today ____ minutes. Progress Note: Quality Stroke Does the patient have a stroke diagnosis?: No Procedures Date of Service Date of Service: 03/09/23
[2023-03-09] MEDS: Collagenase Clostridium Hist. 30 GM TUBE 1 APPL TOPICAL (14:02)
[2023-03-09 16:00] VITALS: BP 151/65; PULSE 69; RESP 18; TEMP 36.7; O2SAT 95
[2023-03-09 17:04] LABS: Glucose, Whole Blood 160 mg/dL (60-115)
[2023-03-09] MEDS: Amiodarone HCL 200 MG TABLET 400 MG PO (17:17)
[2023-03-09 20:00] VITALS: BP 143/65; PULSE 62; RESP 18; TEMP 36.6; O2SAT 94
[2023-03-09 20:57] LABS: Glucose, Whole Blood 142 mg/dL (60-115)
[2023-03-09] MEDS: Sennosides/Docusate Sodium TABLET 2 TAB PO (22:09)
[2023-03-09] MEDS: Multivitamin TABLET 1 TAB PO (22:10)
[2023-03-09] MEDS: Atorvastatin Calcium 80 MG TABLET PO (22:10)
[2023-03-09] MEDS: Insulin Glargine,Hum.rec.anlog 100 UNIT/ML 10 ML VIAL 14 UNIT SUBCUT (22:10)
[2023-03-09] MEDS: Gabapentin 300 MG CAPSULE PO (22:10)
[2023-03-09] MEDS: Cholecalciferol (Vitamin D3) 25 MCG TABLET PO (22:10)
[2023-03-09 23:11] VITALS: BP 142/66; PULSE 59; RESP 18; TEMP 37.2; O2SAT 91
[2023-03-10] MEDS: Enoxaparin Sodium 30 MG/0.3 ML SYRINGE SUBCUT (01:00)
[2023-03-10 03:41] VITALS: BP 136/61; PULSE 69; RESP 19; TEMP 37.1; O2SAT 97
[2023-03-10 06:00] VITALS: BMI 28.7
[2023-03-10 07:04] VITALS: BP 156/70; PULSE 66; RESP 18; TEMP 36.3; O2SAT 100
[2023-03-10 07:43] LABS: Anion Gap 16 (12-20); Blood Urea Nitrogen 40 mg/dL (9-16); Calcium 9.4 mg/dL (8.4-10.2); Carbon Dioxide 26 mmol/L (22-29); Chloride 106 mmol/L (96-108); Creatinine Clr Calc Pharmacy 36.7; Estimated Glomerular Filt Rate 39; Glucose Random 144 mg/dL (60-115); Magnesium 2.1 mg/dL (1.6-2.6); Potassium 4.7 mmol/L (3.3-5.1); Sodium 143 mmol/L (135-145)
[2023-03-10 07:57] LABS: B Type Natriuretic Peptide 293 pg/mL (<100)
[2023-03-10 07:59] LABS: Glucose, Whole Blood 142 mg/dL (60-115)
[2023-03-10] MEDS: 0.9 % Sodium Chloride Flush 3 ML SYRINGE IVFLUSH ×3 (09:20→22:00)
[2023-03-10] MEDS: Nicotine 14 MG PATCH.TD24 TRANSDERMA (09:20)
[2023-03-10] MEDS: Sennosides/Docusate Sodium TABLET 2 TAB PO ×2 (09:21→20:41)
[2023-03-10] MEDS: polyethylene glycoL 3350 17 GM POWD.PACK PO (09:21)
[2023-03-10] MEDS: Ascorbic Acid 500 MG TABLET PO (09:21)
[2023-03-10] MEDS: Aspirin Enteric Coated 81 MG TABLET.DR PO (09:21)
[2023-03-10] MEDS: Furosemide 40 MG TABLET PO (09:21)
[2023-03-10] MEDS: Isosorbide Mononitrate 30 MG TAB.ER.24H PO (09:22)
[2023-03-10] MEDS: amLODIPine Besylate 10 MG TABLET PO (09:22)
[2023-03-10] MEDS: Brimonidine Tartrate 0.2% Oph 5 ML BOTTLE 1 DROP EYE-BOTH ×2 (09:28→22:12)
[2023-03-10] MEDS: Collagenase Clostridium Hist. 30 GM TUBE 1 APPL TOPICAL (09:28)
[2023-03-10] MEDS: Dorzolamide/Timolo 2.23%/0.68% 10 ML DRBTL 1 DROP EYE-BOTH ×2 (09:28→22:12)
[2023-03-10 10:59] LABS: Glucose, Whole Blood 212 mg/dL (60-115)
[2023-03-10 11:33] VITALS: BP 136/62; PULSE 71; RESP 20; TEMP 37; O2SAT 97
--- NOTE | 2023-03-10 11:49 | MHC.CM.PN ---
EMR reviewed and per MD rounds, pt is not medically cleared for D/C, PT eval done today and recommend home with services, pt active w/ [facility]. CM will continue to follow.
[2023-03-10] MEDS: Insulin Lispro 100 UNIT/ML 3 ML VIAL SUBCUT ×3 (11:56→22:12)
--- NOTE | 2023-03-10 12:53 | MHC.CLN ---
F/U PO INTAKE 50-100% DIET RX: 2000DM CARDIAC-APPROPRIATE PT RECEIVING ENSURE MAX BID TO PROMOTE WOUND HEALING SUPP PROVIDES 300KCALS, 60G PROTEIN MONITOR PO INTAKE AND ENCOURAGE SUPPLEMENT
--- NOTE | 2023-03-10 13:36 | P.PNIM_ITS ---
Subjective Subjective Date of Service: 03/10/23 Interval History: frequent PVCs/bigeminy/trigeminy but better than yesterday no pain, nausea or vomiting Review of Systems Review of Systems: Yes all other systems are reviewed and are negative Physical Exam 2 Vital Signs: Vital Signs: Last Vital Signs Temp 98.6 F 03/10/23 11:33 Pulse 71 03/10/23 11:33 Resp 20 03/10/23 11:33 BP 136/62 03/10/23 11:33 Pulse Ox 97 03/10/23 11:33 O2 Del Method Room Air 03/10/23 11:33 O2 Flow Rate 3 03/10/23 03:41 BMI result Body Mass Index 28.7 Appearing in no acute distress lung sounds are clear to auscultation heart regular rate rhythm, clear S1, S2 positive bowel sounds, abdomen is soft, nontender neuro patient is alert x3, no focal deficits Objective Data Active Medications Acetaminophen (Acetaminophen 325 Mg Tablet) 650 mg PO Q6H PRN PRN Reason: Pain, Mild (Pain Scale 1-3) Last Admin: 03/09/23 01:44 Dose: 650 mg Documented By: AIMEE Amiodarone HCl (Amiodarone Hcl 200 Mg Tablet) 400 mg PO DAILY@1800 [facility] Last Admin: 03/09/23 17:17 Dose: 400 mg Documented By: RUFINA Amlodipine Besylate (Amlodipine Besylate 10 Mg Tablet) 10 mg PO DAILY [facility]; Protocol Last Admin: 03/10/23 09:22 Dose: 10 mg Documented By: LEESA Ascorbic Acid (Ascorbic Acid 500 Mg Tablet) 500 mg PO DAILY [facility] Last Admin: 03/10/23 09:21 Dose: 500 mg Documented By: LEESA Aspirin (Aspirin Enteric Coated 81 Mg Tablet.) 81 mg PO DAILY [facility] Last Admin: 03/10/23 09:21 Dose: 81 mg Documented By: LEESA Atorvastatin Calcium (Atorvastatin Calcium 80 Mg Tablet) 80 mg PO BEDTIME [facility] Last Admin: 03/09/23 22:10 Dose: 80 mg Documented By: MARCI Brimonidine Tartrate (Brimonidine Tartrate 0.2% Oph 5 Ml Bottle) 1 drop EYE- BOTH BID [facility] Last Admin: 03/10/23 09:28 Dose: 1 drop Documented By: LEESA Collagenase (Collagenase Clostridium Hist. 30 Gm Tube) 1 appl TOPICAL DAILY [facility]; Protocol Last Admin: 03/10/23 09:28 Dose: 1 appl Documented By: LEESA Dextrose (Dextrose 50 % 25 Gm/50 Ml Syringe) 25 gm IVPUSH Q15M PRN; Protocol PRN Reason: per Hypoglycemia Standing Ord. Dorzolamide/Timolol (Dorzolamide/Timolo 2.23%/0.68% 10 Ml Drbtl) 1 drop EYE- BOTH BID [facility] Last Admin: 03/10/23 09:28 Dose: 1 drop Documented By: LEESA Enoxaparin Sodium (Enoxaparin Sodium 30 Mg/0.3 Ml Syringe) 30 mg SUBCUT Q24H [facility] Last Admin: 03/10/23 01:00 Dose: 30 mg Documented By: MARCI Furosemide (Furosemide 40 Mg Tablet) 40 mg PO DAILY [facility]; Protocol Last Admin: 03/10/23 09:21 Dose: 40 mg Documented By: LEESA Gabapentin (Gabapentin 300 Mg Capsule) 300 mg PO BEDTIME [facility] Last Admin: 03/09/23 22:10 Dose: 300 mg Documented By: MARCI Glucose (Glucose Gel 15 Gm Gel..Gram.) 15 gm PO Q15M PRN; Protocol PRN Reason: per Hypoglycemia Standing Ord. Insulin Glargine (Insulin Glargine,Hum.Rec.Anlog 100 Unit/Ml 10 Ml Vial) 14 unit SUBCUT BEDTIME [facility] Last Admin: 03/09/23 22:10 Dose: 14 unit Documented By: MARCI Insulin Human Lispro (Insulin Lispro 100 Unit/Ml 3 Ml Vial) 0 unit SUBCUT QIDACHS [facility]; Protocol Last Admin: 03/10/23 11:56 Dose: 4 unit Documented By: LEESA Isosorbide Mononitrate (Isosorbide Mononitrate 30 Mg Tab.Er.24h) 30 mg PO DAILY [facility]; Protocol Last Admin: 03/10/23 09:22 Dose: 30 mg Documented By: LEESA Melatonin (Melatonin 3 Mg Tablet) 6 mg PO BEDTIME PRN PRN Reason: Insomnia Last Admin: 03/09/23 01:44 Dose: 6 mg Documented By: AIMEE Multivitamins/Vitamin C (Multivitamin Tablet) 1 tab PO BEDTIME [facility] Last Admin: 03/09/23 22:10 Dose: 1 tab Documented By: MARCI Nicotine (Nicotine 14 Mg Patch.Td24) 14 mg TRANSDERMA DAILY [facility] Last Admin: 03/10/23 09:20 Dose: 14 mg Documented By: LEESA Ondansetron HCl (Ondansetron Hcl 4 Mg/2 Ml Vial) 4 mg IVPUSH Q6H PRN PRN Reason: Nausea and Vomiting Last Admin: 03/09/23 03:38 Dose: 4 mg Documented By: ANNETTE Polyethylene Glycol (Polyethylene Glycol 3350 17 Gm Powd.Pack) 17 gm PO DAILY [facility] Last Admin: 03/10/23 09:21 Dose: 17 gm Documented By: LEESA Senna/Docusate Sodium (Sennosides/Docusate Sodium Tablet) 2 tab PO BID [facility] Last Admin: 03/10/23 09:21 Dose: 2 tab Documented By: LEESA Sodium Chloride (0.9 % Sodium Chloride Flush 3 Ml Syringe) 3 ml IVFLUSH QSHIFT [facility] Last Admin: 03/10/23 09:20 Dose: 3 ml Documented By: LEESA Vitamin D (Cholecalciferol (Vitamin D3) 25 Mcg Tablet) 25 mcg PO BEDTIME [facility] Last Admin: 03/09/23 22:10 Dose: 25 mcg Documented By: MARCI Labs 03/07/23 06:42 03/10/23 06:23 Labs: Laboratory Results - last 24 hr 03/09/23 03/09/23 03/10/23 17:00 20:49 06:23 Anion Gap 16 Estim Creat Clear Calc 36.7 Estimated GFR 39 POC Glucose 160 H 142 H Random Glucose 144 H Calcium 9.4 Magnesium 2.1 B-Natriuretic Peptide 293 H 03/10/23 03/10/23 07:55 10:54 Anion Gap Estim Creat Clear Calc Estimated GFR POC Glucose 142 H 212 H Random Glucose Calcium Magnesium B-Natriuretic Peptide Assessment and Plan (1) Bradycardia: Status: Acute (2) Acute on chronic diastolic heart failure: Status: Acute (3) DEAN (acute kidney injury): Status: Acute Plan 77yo M with diastolic HF, DM2, HTN, glaucoma, anemia, CKD3, recent R VALERIY, admitted with acute hypoxia due to CHF exacerbation Acute hypoxic resp failure due to acute/chronic HFpEF. Resolved diuresed with IV furosemide until developed DEAN; now on PO furosemide and CR improving weaned off O2 Sinus bradycardia bradycardia mostly resolved frequent PVCs effective heart rate is half of what is on monitor due to bigeminy; was on metoprolol succinate at baseline, changed to carvedilol but did not suppress PVCs started amiodraone 03/06- plan 400 mg daily x 2 wk, then on 03/20 200 mg daily keep K>4, Mg>2 Cardiology following> ok to dc home and o/p follow up DEAN/CKD3. close to baseline likely due to diuresis; improving losartan on hold and back on PO furosemide DM2 ss, ada diet HLD statin HTN losartan held for DEAN continue amlodipine, start Imdur glaucoma brimodine/timolol + dorzolamide reporting bilateral blurry vision- needs outpt ophthalmology follow-up chronic R heel wound, unstageable + present on admission, also stage 1 pressure injury of R heel present on admission wound care consulted>left heel with foam, right heel with triad, santyl to wound bed ( see wound nurse note for more details) Follow up outpt with Wound Clinic at time of Discharge tobacco abuse NRT VTE ppx LMWH Attending Dr. Daryl levy plan for dc home when medically stable In my clinical judgment, the patient requires continued inpatient hospitalization for the following reasons: DEAN, telemetry Total time managing care of this patient today: 40 minutes. Quality Stroke Does the patient have a stroke diagnosis?: No VTE Prior VTE?: No VTE Risk Level:: Medical - moderate - high VTE Device Contraindication: N/A - Device Ordered VTE Drug Contraindication: N/A - Med Ordered
[2023-03-10 16:00] VITALS: BP 140/64; PULSE 68; RESP 18; TEMP 37; O2SAT 94
--- NOTE | 2023-03-10 16:33 | P.PNNP_ITS ---
Subjective Subjective Date of Service: 03/10/23 Interval history: No pain, nausea or vomiting ; All recent data reviewed Physical Exam 2 Vital Signs: Vital Signs: Last Vital Signs Temp 98.6 F 03/10/23 16:00 Pulse 68 03/10/23 16:00 Resp 18 03/10/23 16:00 BP 140/64 H 03/10/23 16:00 Pulse Ox 94 03/10/23 16:00 O2 Del Method Room Air 03/10/23 16:00 O2 Flow Rate 3 03/10/23 03:41 BMI result Body Mass Index 28.7 Const: General: no acute distress Eyes: EOM: EOMs intact bilaterally Neck: Neck: Yes supple Resp: Auscultation: diminished lung sounds Cardio: Jugular venous distension: no JVD GI: Palpation (GI): Soft to palpation Neuro: General: moves all extremities Objective Data Labs 03/07/23 06:42 03/10/23 06:23 Labs: Laboratory Results - last 24 hr 03/09/23 03/09/23 03/10/23 17:00 20:49 06:23 Sodium 143 Potassium 4.7 Chloride 106 Carbon Dioxide 26 Anion Gap 16 BUN 40 H Creatinine 1.71 H Estim Creat Clear Calc 36.7 Estimated GFR 39 POC Glucose 160 H 142 H Random Glucose 144 H Calcium 9.4 Magnesium 2.1 B-Natriuretic Peptide 293 H 03/10/23 03/10/23 07:55 10:54 Sodium Potassium Chloride Carbon Dioxide Anion Gap BUN Creatinine Estim Creat Clear Calc Estimated GFR POC Glucose 142 H 212 H Random Glucose Calcium Magnesium B-Natriuretic Peptide Microbiology Microbiology Results: Microbiology 03/02/23 22:46 Blood - Venous Blood Culture - Final No growth after 5 days. 03/02/23 20:24 Blood - Venous Blood Culture - Final No growth after 5 days. Procedures Date of Service Date of Service: 03/10/23 Assessment & Plan Assessment and plan (1) DEAN (acute kidney injury): Status: Acute Plan DEAN due to tubular injury-resolved Has CKD 3 at baseline from vascular disease Had been on losartan - on hold Serum creatinine close to baseline now C/W current supportive management Needs follow up with me in 4-6 weeks when D/Ezequiel Progress Note: Quality Stroke Does the patient have a stroke diagnosis?: No
[2023-03-10] MEDS: Amiodarone HCL 200 MG TABLET 400 MG PO (17:13)
[2023-03-10 17:18] LABS: Glucose, Whole Blood 165 mg/dL (60-115)
[2023-03-10 19:48] VITALS: BP 144/67; PULSE 65; RESP 18; TEMP 36.6; O2SAT 94
[2023-03-10] MEDS: Gabapentin 300 MG CAPSULE PO (20:40)
[2023-03-10] MEDS: Melatonin 3 MG TABLET 6 MG PO (20:40)
[2023-03-10] MEDS: Atorvastatin Calcium 80 MG TABLET PO (20:41)
[2023-03-10] MEDS: Cholecalciferol (Vitamin D3) 25 MCG TABLET PO (20:41)
[2023-03-10] MEDS: Multivitamin TABLET 1 TAB PO (20:41)
[2023-03-10 21:01] LABS: Glucose, Whole Blood 182 mg/dL (60-115)
[2023-03-10] MEDS: Insulin Glargine,Hum.rec.anlog 100 UNIT/ML 10 ML VIAL 14 UNIT SUBCUT (22:11)
[2023-03-11] VITALS: BP 127/58; PULSE 60; RESP 18; TEMP 36.8; O2SAT 95
[2023-03-11 04:00] VITALS: BP 140/61; PULSE 66; RESP 20; TEMP 36.7; O2SAT 96
[2023-03-11] MEDS: Enoxaparin Sodium 30 MG/0.3 ML SYRINGE SUBCUT (05:47)
[2023-03-11 05:58] VITALS: BMI 29.6
[2023-03-11 05:59] LABS: Glucose, Whole Blood 132 mg/dL (60-115)
[2023-03-11 07:11] VITALS: BP 138/69; PULSE 69; RESP 18; TEMP 36.4; O2SAT 96
--- NOTE | 2023-03-11 07:16 | PM.DS ---
DS: Providers Provider Date of Service: 03/11/23 Date of admission: 03/03/23 00:22 Primary care physician: aMrcia Clements MD Consults: 03/04/23 07:40 Consult to Cardiology Routine Consulting Provider: [facility] Reason for consultation: CHF 03/04/23 07:54 Consult to Wound Care Routine Reason for consultation: Pressure injury to right heel 03/07/23 08:03 Consult to Nephrology Routine Consulting Provider: [facility] Reason for consultation: dean Has provider been notified: No DS: Diagnosis Discharge Diagnosis (1) DEAN (acute kidney injury): Status: Acute DS: Summary Hospital Course Hospital Course: This is a 77-year-old male who unfortunately is a poor historian and who has past medical history of diastolic congestive heart failure, type 2 diabetes mellitus, hypertension, glaucoma, anemia, plaque psoriasis, chronic kidney disease and is status post recent right total hip arthroplasty who presents to the emergency room from home via EMS for evaluation after his family called EMS and reported that patient was 'feeling unwell'. However when paramedics arrived at scene, he informed them that he felt fine but that his family was concerned about him. Initial evaluation by EMS at scene revealed mild hypoxemia with oxygen saturation of 87% on room airn and so he was started on supplemental Oxygen. On arrival to the ED, he was noted to be bradycardic with heart rate of 30 bpm for which he received IV calcium with improvement. On my interview, he reported having a dry cough, exertional shortness of breath and feeling unusually weak and at times dizzy. He however denied any associated chest pains or palpitations and initial EKG done showed sinus bradcycardia at 36 bpm. Blood work done revealed elevated BNP at 1222 pg/ml and mild renal insufficiency with a BUN of 44 and creatinine of 1.75 (was 35 and 1.15 respectively in November 2022). His HSTnI was normal. A working diagnosis of CHF exacerbation and sinus bradycardia was made and admission was requested for continued care. 77 year old man treated for acute hypoxic respiratory failure secondary to acute on chronic heart failure with preserved ejection fraction, sinus bradycardia, DEAN on CKD stage 3. He was initially treated with IV Lasix and diuresed well but developed DEAN. His Lasix was on hold for short time as well as his losartan. He was seen evaluated by Nephrology doc to have tubular injury secondary to diuresis. Creatinine close to baseline at this point and patient restarted on oral furosemide. Sign some episodes of sinus bradycardia which did resolve but he also had very frequent PVCs initially was on metoprolol succinate at baseline but changed to carvedilol which not suppress the PVCs. Seen by Cardiology subsequently started on amiodarone on 03/06/2023. Plan is for 400 mg daily x2 weeks then 200 mg daily. His potassium and magnesium have remained within normal limits. He still having some PVCs but much improved. Pannus for him to follow-up with Cardiology Nephrology outpatient. He will be home going home with family. Diabetes mellitus type 2. Continue home medications Hyperlipidemia. Continue statin Hypertension. Started stopped, continue amlodipine and new addition of Imdur as per Cardiology. Alcohol. Continue home eye drops Tobacco use. Discussed importance of smoking cessation may use nicotine replacement therapy outpatient to help with this Chronic right heel wound, unstageable. Present on admission. He was seen evaluated by wound care with recommendation for foam to left heel, triad and Santyl to wound bed of right heel. He may follow-up with outpatient wound clinic Time Attestation Discharge coordination time: Greater than 30 minutes Quality: Safe Use of Opioids Does Pt have an Active Cancer Diagnosis on the Problem List?: No Quality: Stroke Does the patient have a stroke diagnosis?: No Physical Exam Vital Signs: Vital Signs: Last Vital Signs Temp 97.6 F 03/11/23 07:11 Pulse 69 03/11/23 07:11 Resp 18 03/11/23 07:11 BP 138/69 03/11/23 07:11 Pulse Ox 96 03/11/23 07:11 O2 Del Method Nasal Cannula 03/11/23 07:11 O2 Flow Rate 2 03/11/23 07:11 BMI result Body Mass Index 29.6 Appearing in no acute distress head is normocephalic atraumatic eyes pupils are PERRLA sclera is anicteric mouth throat mucous membranes are intact and moist neck is supple no lymphadenopathy, no JVD noted lung sounds are clear to auscultation heart regular rate rhythm, clear S1, S2 positive bowel sounds, abdomen is soft, nontender neuro patient is alert x3, no focal deficits chronic bilateral heal wounds:Right diabetic heel wound with fibrinous yellow lozada slough with moist red pink wound edge tissue, Left stage 1 pressure injury with dry red nonblanchable tissue DS: Data Data Completed and Pending Completed studies during hospitalization [Text1]: Procedures Reposition Left Upper Femur with Intramedullary Internal Fixation Device, Percutaneous Approach (12/08/22) Transfusion of Nonautologous Red Blood Cells into Peripheral Vein, Percutaneous Approach (12/08/22) Labs on day of discharge: Laboratory Results - last 24 hr 03/10/23 03/10/23 03/10/23 06:23 07:55 10:54 Sodium 143 Potassium 4.7 Chloride 106 Carbon Dioxide 26 Anion Gap 16 BUN 40 H Creatinine 1.71 H Estim Creat Clear Calc 36.7 Estimated GFR 39 POC Glucose 142 H 212 H Random Glucose 144 H Calcium 9.4 Magnesium 2.1 B-Natriuretic Peptide 293 H 03/10/23 03/10/23 03/11/23 16:56 20:25 05:45 Sodium Potassium Chloride Carbon Dioxide Anion Gap BUN Creatinine Estim Creat Clear Calc Estimated GFR POC Glucose 165 H 182 H 132 H Random Glucose Calcium Magnesium B-Natriuretic Peptide Discharge Plan Discharge Anticipated Discharge Date/Time: 03/11/23 07:16 Patient Disposition: Home Health Service Discharge Diagnosis: Acute hypoxic respiratory failure acute on chronic HFpEF Sinus bradycardia PVC DEAN on CKD 3 Referrals: Po,Marcia Overton MD [Primary Care Provider] - 1 Week Discharge Medications: New furosemide 40 mg Tablet 40 mg PO DAILY Qty: 30 0RF Protocol: Hold for SBP< HOLD for SBP < : 90 amiodarone 200 mg Tablet 400 mg PO DAILY@1800 Qty: 38 0RF Rx Instructions: Take 400 mg daily for 14 days (end date 03/20/23) then take 200 mg daily isosorbide mononitrate 30 mg Tablet Extended Release 24 Hr 30 mg PO DAILY Qty: 30 0RF Protocol: Hold for SBP< HOLD for SBP < : 90 Continued (DME) pen needle, diabetic [BD Martina 2nd Gen Pen Needle] 32 gauge x 5/32 needle See Rx Instructions .MEDSUPPLY Qty: 400 4RF Rx Instructions: 5 times a day (DME) hospital bed See Rx Instructions .Route .MEDSUPPLY Qty: 1 0RF Rx Instructions: As directed (DME) HOSPITAL BED See Rx Instructions .Route .MEDSUPPLY Qty: 1 0RF Rx Instructions: As directed acetaminophen [Tylenol Extra Strength] 500 mg tablet 500 mg PO Q6H PRN (Reason: pain or fever) Qty: 20 0RF dorzolamide-timolol 22.3-6.8 mg/mL drops 1 drp ophthalmic (eye) BID Tremfya 100 mg/mL auto-injector 100 mg subcut Q8W multivitamin Tablet 1 tab PO BEDTIME ascorbic acid (vitamin C) 500 mg Tablet 500 mg PO BEDTIME brimonidine 0.15 % drops 1 drp ophthalmic (eye) BID aspirin 81 mg tablet,delayed release (DR/EC) 81 mg PO BEDTIME amlodipine 10 mg tablet 10 mg PO BEDTIME insulin lispro [Humalog KwikPen Insulin] 100 unit/mL insulin pen 10 unit subcut TID Rx Instructions: before meals as directed rosuvastatin 40 mg tablet 40 mg PO BEDTIME cholecalciferol (vitamin D3) 25 mcg (1,000 unit) tablet 25 mcg PO BEDTIME insulin degludec 100 unit/mL (3 mL) insulin pen 20 unit subcut BEDTIME docusate sodium 100 mg Capsule 200 mg PO DAILY Qty: 30 0RF Santyl 250 unit/gram ointment 1 appl topical DAILY Trulicity 1.5 mg/0.5 mL pen injector 1.5 mg subcut QWEEK (DME) FreeStyle Lite Strips Strip See Rx Instructions .ROUTE .MEDSUPPLY Qty: 150 11RF Rx Instructions: As directed four times a day (DME) 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 meter [FreeStyle [place] Lite] Kit See Rx Instructions .ROUTE .MEDSUPPLY Qty: 1 0RF Rx Instructions: As directed (DME) lancets [FreeStyle Lancets] 28 gauge misc See Rx Instructions .ROUTE .MEDSUPPLY Qty: 100 3RF Rx Instructions: As directed check BS QD gabapentin 300 mg capsule 300 mg PO BEDTIME Qty: 90 2RF Discontinued furosemide 20 mg tablet 20 mg PO BEDTIME losartan 25 mg tablet 25 mg PO BEDTIME metoprolol succinate 25 mg tablet extended release 24 hr 25 mg PO BEDTIME Discharge Orders: Discharge Order (Routine); Ordered 03/11/23 Ordered By: Karime Turner Diet: Advance to usual diet Activity on Discharge: As tolerated Stand Alone Forms: Patient Portal Discharge page Activity Restrictions/Additional Instructions: Topical Wound Care Recommendations: 1. Turn and Reposition every 2 hours and as needed for patient comfort. 2. Off Load all bony prominences with use of pillows and heel boots if needed.? Apply Preventative foams where needed. ? 3. Provide adequate and supplemental nutrition. Maintain blood glucose levels per Providers orders. 4. Left Heel - Apply Foam dressing to protect from friction and aid in off loading pressure. Elevate off of bed surface with use of pillow or heel boot. 5. Right Heel - Elevate heel off of surface of bed Cleanse with normal saline, pat dry. ?Apply Triad to the immediate jr wound, apply thick layer of Santyl to entire wound bed, cover with dry gauze, followed by ABD pad, gauze wrap. Change Daily. Follow up outpt with Wound Clinic at time of Discharge. Care Plan Goals: You have been started on Amiodarone for irregular heart beat: Take 400mg daily for 2 weeks (03/20/23) then 200mg daily Your Losartan was stopped due to acute kidney injury Health Concerns: Acute hypoxic respiratory failure acute on chronic HFpEF Sinus bradycardia PVC DEAN on CKD 3 Plan of Treatment: Follow up with cardiology as needed take all medications as prescribed Assessment: See discharge summary
[2023-03-11 07:21] LABS: Glucose, Whole Blood 146 mg/dL (60-115)
[2023-03-11] MEDS: Nicotine 14 MG PATCH.TD24 TRANSDERMA (07:44)
[2023-03-11] MEDS: Ascorbic Acid 500 MG TABLET PO (07:45)
[2023-03-11] MEDS: amLODIPine Besylate 10 MG TABLET PO (07:46)
[2023-03-11] MEDS: Aspirin Enteric Coated 81 MG TABLET.DR PO (07:46)
[2023-03-11] MEDS: Isosorbide Mononitrate 30 MG TAB.ER.24H PO (07:46)
[2023-03-11] MEDS: Collagenase Clostridium Hist. 30 GM TUBE 1 APPL TOPICAL (07:46)
[2023-03-11] MEDS: Dorzolamide/Timolo 2.23%/0.68% 10 ML DRBTL 1 DROP EYE-BOTH (07:46)
[2023-03-11] MEDS: Furosemide 40 MG TABLET PO (07:46)
[2023-03-11] MEDS: Brimonidine Tartrate 0.2% Oph 5 ML BOTTLE 1 DROP EYE-BOTH (07:46)
[2023-03-11] MEDS: 0.9 % Sodium Chloride Flush 3 ML SYRINGE IVFLUSH (07:47)
--- NOTE | 2023-03-11 10:44 | HO.WOUND ---
Wound Consult: Follow up 77yr old male admitted to [facility] on?03/03/23 00:22 - See progress notes and H&P for detailed history. Wound consult placed for Right Heel Pressure Injury Present on Admission. Pt reports and chart review supports pt visited outpt Wound Clinic - 1st and last visit 02/27/[address] Coffey and topical recommendation was made for Santyl. Outpt Wound Clinic notes report wound etiology as Diabetic Wound as Primary Etiology - Unstageable Pressure Injury. At time of discharge patient should continue follow up care with outpt Wound Clinic. Right Heel Assessment 03/04/23 Todays Assessment 03/11/23 Todays Assessment 03/11/23 - overall improved Right Heel Etiology: Diabetic Wound / Unstageable Pressure Injury - POA Measurements: 2cm x 1.8cm x 0.2cm Wound Bed: Adherent moist fibrinous yellow lozada slough central fluctuance noted to slough Drainage / Odor: Malodor noted - lozada yellow moist drainage noted on dressing. Edges: ? irregular and epibole Jr wound: ?improved maceration - No Induration noted Pain: Pt reports significant pain and tenderness Goals of Treatment: ? Santyl for continued enzymatic debridement - Follow up outpt wound clinic at time of d/c Recommendations: 1. Turn and Reposition every 2 hours and as needed for patient comfort. 2. Off Load all bony prominences with use of pillows and heel boots if needed.? Apply Preventative foams where needed. ? 3. Monitor for incontinence and moisture control, use barrier creams when needed for prevention and treatment. 4. Provide adequate and supplemental nutrition. 5. Order low air loss mattress. 6. Maintain blood glucose levels per Providers orders. 7. Left Heel - Apply Foam dressing to protect from friction and aid in off loading pressure. Elevate off of bed surface with use of pilllow or heel boot. 8. Right Heel - Elevate heel off of surface of bed Cleanse with normal saline, pat dry. ?Apply Triad to the immediate jr wound, apply thick layer of Santyl to entire wound bed, cover with dry gauze, followed by ABD pad, gauze wrap. Change Daily. Follow up outpt with Wound Clinic at time of Discharge. Re-consult wound care Nurse for wound deterioration or wound changes.
--- NOTE | 2023-03-11 11:20 | MHC.CM.PN ---
Second IMM given 03/11. Pt is medically cleared for D/C home with resumption of [facility]. Pts daughter to transport him home.
== END 2023-03-11 11:20 | disposition home health service (06) | DRG 291 ==
LOC: HO.ED 21:30 → HO.EDOVER 03-03 00:52 → HO.IMC 03-03 19:34
PROVIDERS: Family Medicine; Hospitalist; Physician Assistant; Physician Assistant Medical; Admitting Provider Internal Medicine; Emergency Provider Emergency Medicine; PCP Internal Medicine; Visit Provider Nurse Practitioner Acute Care
DX: I13.0 Hypertensive heart and chronic kidney disease with heart failure and stage 1 through stage 4 chronic kidney disease, or unspecified chronic kidney disease (principal); I50.33 Acute on chronic diastolic (congestive) heart failure; J96.01 Acute respiratory failure with hypoxia; N17.9 Acute kidney failure, unspecified; I25.10 Atherosclerotic heart disease of native coronary artery without angina pectoris; E87.5 Hyperkalemia; N18.30 Chronic kidney disease, stage 3 unspecified; D63.1 Anemia in chronic kidney disease; E11.42 Type 2 diabetes mellitus with diabetic polyneuropathy; H40.9 Unspecified glaucoma; Z95.1 Presence of aortocoronary bypass graft; L89.621 Pressure ulcer of left heel, stage 1; L89.610 Pressure ulcer of right heel, unstageable; I49.3 Ventricular premature depolarization; E11.22 Type 2 diabetes mellitus with diabetic chronic kidney disease; F17.210 Nicotine dependence, cigarettes, uncomplicated; E78.5 Hyperlipidemia, unspecified; L40.0 Psoriasis vulgaris; Z20.822 Contact with and (suspected) exposure to COVID-19; Z71.6 Tobacco abuse counseling; Z79.4 Long term (current) use of insulin; Z79.82 Long term (current) use of aspirin; Z79.899 Other long term (current) drug therapy
CPT/HCPCS: 0241U; 36415; 71045; 80048; 80053; 82947; 83605; 83735; 83880; 84443; 84484; 85025; 87040; 93005; 93970; 97161; 99285; J0613; J1650; J1940; J2270; J2405; J3475; J7120

== ENCOUNTER → 2023-03-02 19:20 | Outpatient (BNV) | payer MEDICARE, SELFPAY | PROVIDERS: Admitting Provider Internal Medicine; Emergency Provider Emergency Medicine; PCP Internal Medicine; Visit Provider Internal Medicine Cardiovascular Disease | DX: I49.3 Ventricular premature depolarization (principal); R94.31 Abnormal electrocardiogram [ECG] [EKG] | CPT/HCPCS: 93010 ==

== ENCOUNTER 2023-03-03 00:22 | Outpatient (BNV) | payer MEDICARE, SELFPAY | END 2023-03-03 07:50 | PROVIDERS: Admitting Provider Internal Medicine; Emergency Provider Emergency Medicine; PCP Internal Medicine; Visit Provider Internal Medicine Cardiovascular Disease | DX: I49.3 Ventricular premature depolarization (principal); R94.31 Abnormal electrocardiogram [ECG] [EKG] | CPT/HCPCS: 93010 ==

== ENCOUNTER → 2023-03-03 00:22 | Outpatient (BNV) | payer MEDICARE, SELFPAY | PROVIDERS: Admitting Provider Internal Medicine; Emergency Provider Emergency Medicine; PCP Internal Medicine; Visit Provider Internal Medicine | DX: N17.9 Acute kidney failure, unspecified (principal) | CPT/HCPCS: 99223; 99232; 99239; 99499 ==

== ENCOUNTER → 2023-03-03 00:22 | Outpatient (BNV) | payer MEDICARE, SELFPAY | PROVIDERS: Admitting Provider Internal Medicine; Emergency Provider Emergency Medicine; PCP Internal Medicine; Visit Provider Internal Medicine Cardiovascular Disease | DX: I50.33 Acute on chronic diastolic (congestive) heart failure (principal); I49.3 Ventricular premature depolarization; R00.1 Bradycardia, unspecified | CPT/HCPCS: 99223; 99232; 99233 ==

== ENCOUNTER → 2023-03-03 00:22 | Outpatient (BNV) | payer MEDICARE, SELFPAY | PROVIDERS: Admitting Provider Internal Medicine; Emergency Provider Emergency Medicine; PCP Internal Medicine; Visit Provider Internal Medicine Nephrology | DX: N17.9 Acute kidney failure, unspecified (principal) | CPT/HCPCS: 99222; 99232 ==

== ENCOUNTER 2023-03-13 06:29 | Outpatient (REF) | payer MEDICARE, SELFPAY | END 2023-03-13 06:30 | disposition home or self-care (01) | LOC: HO.HOSX 06:29 | PROVIDERS: Visit Provider Physician Assistant | DX: Z13.89 Encounter for screening for other disorder (principal) ==

== ENCOUNTER 2023-03-18 09:25 | Outpatient (REF) | payer MEDICARE, SELFPAY | END 2023-03-18 09:26 | disposition home or self-care (01) | LOC: HO.HOSX 09:25 | PROVIDERS: Visit Provider Physician Assistant | DX: Z13.89 Encounter for screening for other disorder (principal) ==

== ENCOUNTER 2023-03-22 08:16 | Inpatient (IN) | payer MEDICARE, SELFPAY ==
[2023-03-22] VITALS (27 sets, daily range): BP systolic 95–180; BP diastolic 26–151; PULSE 14–80; RESP 13–76; TEMP 36.5–37.1; O2SAT 91–97; BMI 30.7
--- NOTE | ~2023-03-22 | MR_ITS ---
EXAMINATION: MR FOOT WITHOUT CONTRAST, RIGHT CLINICAL INFORMATION: Chronic foot ulcer. Pain. Evaluate for osteomyelitis. COMPARISON: Right foot radiographs dated 03/22/2023. TECHNIQUE: Localizer images as well as axial T1, sagittal T1, and axial STIR images were obtained. The examination was terminated prematurely due to patient discomfort. FINDINGS: Significantly limited examination due to incomplete imaging and patient motion. Soft tissue ulceration along the posterolateral aspect of the heel measuring approximately 1.3 cm with adjacent skin thickening and subcutaneous edema, consistent with cellulitis. No organized fluid collection or abscess formation. No significant adjacent increased T2 or decreased T1 marrow signal to suggest acute osteomyelitis, however, evaluation is limited. No acute fracture or dislocation. No talar osteochondral lesion. Mild degenerative arthritis at the tibiotalar and subtalar joints. Plantar and dorsal calcaneal enthesophytes. The visualized flexor and extensor tendons are grossly intact, however, evaluation is somewhat limited. No evidence of acute ligament injury. MR/MR foot RT wo con IMPRESSION: Significantly limited examination due to incomplete imaging and patient motion. 1. Soft tissue ulceration along the posterolateral aspect of the heel with adjacent skin thickening and subcutaneous edema, consistent with cellulitis. No organized fluid collection or abscess formation. No definite evidence of acute osteomyelitis, however, evaluation is limited. 2. Mild degenerative arthritis at the tibiotalar and subtalar joints.
--- NOTE | ~2023-03-22 | XR_ITS ---
EXAMINATION: XR FOOT, RIGHT CLINICAL INFORMATION: Pain and ulcer. COMPARISON: None available. TECHNIQUE: AP, lateral, and oblique views of the right foot. FINDINGS: There is bony demineralization. Bony alignment is normal. No fracture, dislocation or right ankle joint effusion is seen. Boehler's angle is normal. There are small posterior and plantar calcaneal spurs. There is mild bunion formation of the first metatarsal head. There are diffuse atherosclerotic calcifications. No focal soft tissue swelling, gas or foreign body is seen. XR/XR foot RT min 3V IMPRESSION: 1. No fracture, dislocation or right ankle joint effusion is seen. 2. No focal soft tissue swelling, gas or foreign body is seen. There is no abnormal focal bone erosion or periosteal thickening noted to suggest acute osteomyelitis. 3. There are small calcaneal spurs. 4. There is mild bunion formation.
--- NOTE | ~2023-03-22 | US_ITS ---
EXAMINATION: NONINVASIVE ASSESSMENT OF THE ARTERIES; RIGHT LOWER EXTREMITY DUPLEX CLINICAL INFORMATION: chronic nonhealing ulcer of right heel COMPARISON: Noninvasive vascular imaging 07/11/2021 TECHNIQUE: Duplex Doppler techniques with wave form analysis and measurement of velocities in the common femoral, profunda femoral, superficial femoral, popliteal, tibial and peroneal arteries. The study was performed only at rest. FINDINGS: RIGHT LEG 1. Direct Duplex: Common femoral artery: 369 cm/s, biphasic Profunda femoris artery: 206 cm/s, biphasic Superficial femoral artery (proximal): 202 cm/s, biphasic Superficial femoral artery (mid): 171 cm/s, monophasic Superficial femoral artery (distal): 164 cm/s, monophasic Popliteal artery: 84.7 cm/s, monophasic Mid posterior tibial artery: 58.4 cm/s, monophasic US/US arterial duplex LE RT IMPRESSION: Elevated velocities in the common femoral artery and proximal superficial femoral artery with monophasic waveforms suggesting at least moderate peripheral vascular disease, worsened from the prior exam.
--- NOTE | ~2023-03-22 | XR_ITS ---
EXAMINATION: XR HIP, RIGHT CLINICAL INFORMATION: Pain. COMPARISON: 01/30/2023, 01/01/2023. TECHNIQUE: 2 AP views of the pelvis as well as AP and lateral views of the right hip. FINDINGS: Degenerative changes in the imaged lower lumbar spine with minimal visualization of vascular stents. Redemonstration of right comminuted intertrochanteric fracture transfixed by intramedullary dwaine and screw device. The [id number] portion of the femoral component are not included on images provided. Fracture lines are still visible. Degenerative changes bilateral hips. Vascular calcifications. XR/XR hip RT w [id number] IMPRESSION: Redemonstration of right comminuted intertrochanteric fracture transfixed by intramedullary dwaine and screw device. Please note that the intramedullary component of the device is incompletely imaged. Dedicated images for complete imaging of the intramedullary dwaine should be considered. Fracture lines are still visible. Correlation with clinical exam recommended to determine further management. If there is concern for fracture or other underlying pathology, MRI could be obtained for further evaluation. This study was presented today 03/25/2023 at 10:50 AM for interpretation. Results provided to referring clinician as requested at this time.
--- NOTE | ~2023-03-22 | XR_ITS ---
EXAMINATION: XR CHEST CLINICAL INFORMATION: Cough. COMPARISON: Prior chest radiographs, most recently 03/02/2023. TECHNIQUE: Frontal view of the chest was obtained. FINDINGS: The heart, great vessels, pulmonary vasculature and mediastinum are stable, accounting for patient rotation. Again, there are post CABG changes. Previously noted diffuse interstitial opacities are now largely resolved. No new infiltrate, effusion or pneumothorax is seen. There is no acute osseous abnormality. There are degenerative changes of the shoulders. XR/XR chest 1V IMPRESSION: 1. No focal infiltrate or congestive heart failure is seen. 2. Previously seen diffuse interstitial opacities are now largely resolved. 3. There are post CABG changes.
[2023-03-22 09:06] LABS: MANUAL DIFF FLAG NO
[2023-03-22 09:08] LABS: Basophils Absolute Auto 0.1 X10*3/uL (0.0-0.2); Basophils Percent Auto 0.6 % (0-2); Eosinophils Absolute Auto 0.5 X10*3/uL (0.0-0.4); Hematocrit 30.2 % (42.0-52.0); Hemoglobin 10.1 g/dl (14.0-18.0); Imm Gran Abs Auto 0.05 X10*3/uL (0.00-0.03); Imm Gran Pct Auto 0.3 % (0.0-0.4); Lymphocytes Absolute Auto 2.1 X10*3/uL (1.2-4.9); Mean Corpuscular HGB Conc 33.4 g/dl (31.0-36.0); Mean Corpuscular Volume 92.6 fL (80.0-98.0); Mean Platelet Volume 10.2 fL (9.4-12.4); Monocytes Absolute Auto 1.1 X10*3/uL (0.1-1.2); Monocytes Percent Auto 7.3 % (2-11); Neutrophils Absolute Auto 11.4 x10*3/uL (2.0-8.3); Neutrophils Percent Auto 74.8 % (45-73); Platelet Count 213 X10*3/uL (160-400); Red Blood Count 3.26 X10*6/uL (4.60-5.80); Red Cell Distribution Width 13.5 % (11.0-16.0); White Blood Count 15.3 X10*3/uL (4.8-10.8)
[2023-03-22 09:22] LABS: Alanine Aminotransferase 48 U/L (0-40); Albumin Level 3.8 g/dL (3.5-5.0); Alkaline Phosphatase 109 U/L (39-117); Anion Gap 16 (12-20); Aspartate Amino Transferase 28 U/L (5-37); Bilirubin Direct 0.2 mg/dL (0.0-0.5); Bilirubin Total 0.4 mg/dL (0.0-1.0); Blood Urea Nitrogen 36 mg/dL (9-16); Calcium 9.4 mg/dL (8.4-10.2); Carbon Dioxide 23 mmol/L (22-29); Chloride 106 mmol/L (96-108); Creatinine Clr Calc Pharmacy 36.8; Estimated Glomerular Filt Rate 39; Glucose Random 273 mg/dL (60-115); Lipase 30 U/L (8-78); Potassium 4.5 mmol/L (3.3-5.1); Sodium 140 mmol/L (135-145); Total Protein 7.6 g/dL (6.5-8.0)
[2023-03-22 10:17] LABS: B Type Natriuretic Peptide 185 pg/mL (<100)
[2023-03-22] MEDS: Piperacillin Sodium/Tazobactam 3.375 GM in 0.9 % Sodium Chloride 50 ML IV (10:22)
[2023-03-22] MEDS: 0.9 % Sodium Chloride 500 ML IV (10:25)
--- NOTE | 2023-03-22 10:31 | ED_ITS ---
HPI - Extremity Problem General Chief complaint: Extremity Injury, Lower Stated complaint: Ulcer on R leg, Cold like symptoms Time Seen by Provider: 03/22/23 09:41 Source: patient, family, old records reviewed and per diem interpreter Mode of arrival: ambulatory Limitations: no limitations History of Present Illness HPI Narrative: 77 yo male from home with PMH of anemia, depression, CKD, DM, CHF with preserved EF, CAD, HTN, HLD, PVD, moderate aortic valve stenosis, s/p R hip IMN on 12/10 sp fall for intertrochanteric fracture, NSVT, pneumonia, recent admit 03/02 - 03/11 for bradycardia, CHF with preserved EF - DEAN diuresed and started on amiodarone. He comes in today stating he started with ulcer on R heel since his stay and now has cough, pain in R heel - drainage and odor. He states he changes the dressing but has not been on antibiotics. He has not had a fever, n/v/d. MD Complaint: extremity pain Onset (ago): week(s) (2) Pain Consistency: constant Location: right and lower extremity Quality: aching, dull and constant Radiation: none Relieving factors: rest Exacerbating factors: walking and palpation Associated symptoms: other (cough) Related Data Home Medications Medication Instructions Recorded Confirmed ascorbic acid (vitamin C) 500 mg 500 mg PO BEDTIME 06/07/21 03/03/23 tablet dorzolamide 22.3 mg-timolol 6.8 1 drp ophthalmic (eye) BID 06/07/21 03/03/23 mg/mL eye drops guselkumab 100 mg/mL subcutaneous 100 mg subcut Q8W 06/07/21 03/03/23 auto-injector (Tremfya) multivitamin 1 tab PO BEDTIME 06/07/21 03/03/23 aspirin 81 mg tablet,delayed 81 mg PO BEDTIME 12/09/22 03/03/23 release brimonidine 0.15 % eye drops 1 drp ophthalmic (eye) BID 12/09/22 03/03/23 cholecalciferol (vitamin D3) 25 25 mcg PO BEDTIME 12/09/22 03/03/23 mcg (1,000 unit) tablet insulin degludec 100 unit/mL (3 20 unit subcut BEDTIME 12/09/22 12/09/22 mL) subcutaneous pen insulin lispro 100 unit/mL 10 unit subcut TID 12/09/22 12/09/22 subcutaneous pen (Humalog KwikPen (U-100) Insulin) rosuvastatin 40 mg tablet 40 mg PO BEDTIME 12/09/22 03/03/23 collagenase clostridium histo. 250 1 appl topical DAILY 03/03/23 03/03/23 unit/gram topical ointment (Santyl) dulaglutide 1.5 mg/0.5 mL 1.5 mg subcut QWEEK 03/03/23 03/03/23 subcutaneous pen injector (Trulicity) Previous Rx's Medication Instructions Recorded acetaminophen 500 mg tablet 500 mg PO Q6H PRN pain or fever 01/30/21 (Tylenol Extra Strength) #20 tabs pen needle, diabetic 32 gauge x #400 ea 10/19/21 (BD Martina 2nd Gen Pen Needle) blood sugar diagnostic (FreeStyle #150 ea 08/05/22 Lite Strips) 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 meter (FreeStyle #1 ea 08/05/22 [place] Lite kit) lancets 28 gauge (FreeStyle #100 ea 08/05/22 Lancets) gabapentin 300 mg capsule 300 mg PO BEDTIME #90 caps 11/21/22 docusate sodium 100 mg capsule 200 mg (2 x 100 mg) PO DAILY #30 12/17/22 [facility] hospital bed #1 ea 01/02/23 HOSPITAL BED #1 ea 01/07/23 furosemide 40 mg tablet 40 mg PO DAILY #30 tabs 03/10/23 isosorbide mononitrate 30 mg 30 mg PO DAILY #30 tabs 03/11/23 tablet,extended release 24 hr nicotine 14 mg/24 hr daily 1 patch transdermal DAILY #28 ea 03/11/23 transdermal patch sennosides 8.6 mg-docusate sodium 2 tab-cap (2 x 8.6-50 mg) PO 03/11/23 50 mg tablet (Senna-S) BEDTIME 30 days #60 tabs amiodarone 200 mg tablet 200 mg PO DAILY #30 tabs 03/13/23 diabetic shoe lift #1 ea 03/14/23 diabetic shoes #2 ea 03/14/23 amlodipine 10 mg tablet 10 mg PO BEDTIME #90 tabs 03/19/23 Allergies Allergy/AdvReac Type Severity Reaction Status Date / Time No Known Allergies Allergy Verified 03/22/23 08:39 Review of Systems 2 Review of Systems: Constitutional : No Fever, No Chills ENT/Mouth : No Ear Pain, No Hoarseness, No sore throat Eyes: No Eye Pain, No Swelling, No Redness, No Foreign Body Cardiovascular : No Chest Pain, No SOB Respiratory : pos Cough, No Dyspnea Gastrointestinal : No Nausea, No Vomiting, No Diarrhea, No abdominal Pain Genitourinary : No Dysuria, No Hematuria Musculoskeletal : positive joint pain, No Myalgias, No Joint Swelling Skin : No Skin lacerations, pos skin lesion Neuro : No Weakness, No Numbness, No Loss of Consciousness, No Dizziness, No Headache Psych : No Anxiety/Panic, No Depression Heme/Lymph: no easy bruising, no Lymphadenopathy Endocrine : No Polyuria, No Polydipsia All other systems reviewed and are negative [facility] Past Medical History Attestation statement: The following information was validated with the patient. Source: old records reviewed Medical History (Updated 03/22/23 @ 11:48 by Mariam Larson DO) CHF (congestive heart failure) Heel ulcer Tobacco abuse Impacted cerumen of both ears Epidermoid cyst of skin of cheek Mass of face Allergic rhinitis Trigger finger, right middle finger Fracture of distal end of left radius with routine healing Superficial abrasion Pneumonia due to COVID-19 virus Acute hypoxemic respiratory failure due to COVID-19 Distal radius fracture, right Renal insufficiency Trigger finger, right middle finger Respiratory tract infection Aortic stenosis Preoperative clearance Iliac artery stenosis, 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 History of renal calculi Compression fracture of L1 lumbar vertebra Infective endocarditis Glaucoma Left carotid stenosis GERD (gastroesophageal reflux disease) Pulmonary nodule Cardiomyopathy Congestive heart failure Overweight (BMI 25.0-29.9) Carotid artery stenosis PVD (peripheral vascular disease) Dyslipidemia Hypertension CAD (coronary artery disease) Diabetic retinopathy associated with type 2 diabetes mellitus Diabetic polyneuropathy associated with type 2 diabetes mellitus CKD stage 3 due to type 2 diabetes mellitus Diabetic 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 diabetes mellitus USP (current) use of insulin Surgical History Hx of shoulder surgery Hx of coronary artery bypass graft Hx of cataract removal with insertion of prosthetic lens Hx of tonsillectomy Hx of appendectomy Hx of arthroscopy of right knee Family History Family History Father Stomach cancer Mother Diabetes Brother Prostate abscess Social History Social History Household Members: Spouse Housing: Apartment Do you presently have visiting nurse or other home services: Yes Alcohol intake: never Patient Tobacco Use Status: Current everyday Tobacco user Tobacco use type: Cigarette Cigarette Packs Per Day: 0.25 Cigarettes Per Day: 3 Years Smoked: 65 e-Cigarette/Vaping Use: Never Used Second Hand Smoke Exposure: Yes Advance Directives: Yes Advance Directives on File: Yes Advance Directives Date on File: 06/08/21 service: No Current occupational status: 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 Cognitive needs: No Hearing needs: No Vision needs: No Physical Exam 2 Vital Signs: Vital Signs: Last Vital Signs Temp 97.8 F 03/22/23 09:42 Pulse 69 03/22/23 10:35 Resp 18 03/22/23 10:35 BP 129/49 L 03/22/23 10:35 Pulse Ox 96 03/22/23 10:35 O2 Del Method Room Air 03/22/23 10:35 BMI result Body Mass Index 30.7 Appearance: Alert. Oriented X3. No acute distress. Eyes: Pupils equal, round and reactive to light. ENT: Pharynx normal. Neck: Normal inspection. Neck supple. CVS: Normal heart rate and rhythm. Pulses normal. Respiratory: No respiratory distress. Breath sounds diminished bases Abdomen: Soft and non-tender. Skin: Skin warm and dry. Normal skin color. Normal skin turgor. Extremities: No lower extremity edema. R heel 4cm open wound ulcer with yellow drainage, ttp swelling and erythema and warmth noted, some mild odor noted, no visible bone - pulses intact Neuro: Oriented X 3. No motor deficit. No sensory deficit. Medications Administered Discontinued Medications Generic Name Dose Route Start Last Admin Trade Name Freq PRN Reason Stop Dose Admin Piperacillin Sod/Tazobactam 50 mls @ 100 mls/hr 03/22/23 09:47 03/22/23 10:49 Sod 3.375 gm/ Sodium Chloride IV 03/22/23 10:16 Infused ONCE ONE Infusion Sodium Chloride 500 mls @ 500 mls/hr 03/22/23 10:30 03/22/23 11:26 Ns IV 03/22/23 11:29 Infused .Q1H AMARILIS Infusion Medical Decision Making Medical Decision Making [facility] Narrative: 77 yo male from home with PMH of anemia, depression, CKD, DM, CHF with preserved EF, CAD, HTN, HLD, PVD, moderate aortic valve stenosis, s/p R hip IMN on 12/10 sp fall for intertrochanteric fracture, NSVT, pneumonia, recent admit 03/02 - 03/11 for bradycardia, CHF with preserved EF - DEAN here with cough and R foot ulcer concerning for possible infection vs osteomyelitis at this time will need labs, CXR, foot xray and start on empiric zosyn. planned admit Differential Diagnosis Differential Diagnoses: The differential diagnosis associated with the presentation includes cellulitis, osteomyelitis, pneumonia Admission/Observation Consideration of admission/observation: Escalation of care including admission/observation considered will admit given wbc count, lactic acidosis concern for infection Consult Healthcare Provider Management of the patient was discussed with: Hospitalist (will admit) Lab Data [facility] Lab Attestation statement: I reviewed the patient's lab results. 03/22/23 08:59 03/22/23 08:59 Labs: Lab Results 03/22/23 03/22/23 03/22/23 Range/Units 08:59 10:00 10:34 WBC 15.3 H (4.8-10.8) X10*3/uL RBC 3.26 L (4.60-5.80) X10*6/uL Hgb 10.1 L (14.0-18.0) g/dl Hct 30.2 L (42.0-52.0) % MCV 92.6 (80.0-98.0) fL MCH 31.0 (27.0-33.0) pg MCHC 33.4 (31.0-36.0) g/dl RDW 13.5 (11.0-16.0) % Plt Count 213 D (160-400) X10*3/uL MPV 10.2 (9.4-12.4) fL Immature Gran % (Auto) 0.3 (0.0-0.4) % Neut % (Auto) 74.8 H (45-73) % Lymph % (Auto) 14.0 L (20-40) % [place] % (Auto) 7.3 (2-11) % Eos % (Auto) 3.0 (0-4) % Baso % (Auto) 0.6 (0-2) % Lymph # (Auto) 2.1 (1.2-4.9) X10*3/uL [place] # (Auto) 1.1 (0.1-1.2) X10*3/uL Eos # (Auto) 0.5 H (0.0-0.4) X10*3/uL Baso # (Auto) 0.1 (0.0-0.2) X10*3/uL Abs Immat Gran (auto) 0.05 H (0.00-0.03) X10*3/uL Absolute Neuts (auto) 11.4 H (2.0-8.3) x10*3/uL Absolute Nucleated RBC 0.000 (0.0-0.012) X10*3/uL Nucleated RBC % (auto) 0.0 (0.0-0.2) /100WBC Sodium 140 (135-145) mmol/L Potassium 4.5 (3.3-5.1) mmol/L Chloride 106 (96-108) mmol/L Carbon Dioxide 23 (22-29) mmol/L Anion Gap 16 (12-20) BUN 36 H (9-16) mg/dL Creatinine 1.70 H (0.5-1.4) mg/dL Estim Creat Clear Calc 36.8 Estimated GFR 39 Random Glucose 273 H (60-115) mg/dL Lactic Acid 3.0 H* (0.5-2.0) mmol/L Calcium 9.4 (8.4-10.2) mg/dL Total Bilirubin 0.4 (0.0-1.0) mg/dL Direct Bilirubin 0.2 (0.0-0.5) mg/dL AST 28 (5-37) U/L ALT 48 H (0-40) U/L Alkaline Phosphatase 109 (39-117) U/L B-Natriuretic Peptide 185 H (<100) pg/mL Total Protein 7.6 (6.5-8.0) g/dL Albumin 3.8 (3.5-5.0) g/dL Lipase 30 (8-78) U/L Urine Color Yellow Urine Appearance Clear Urine pH 5.5 (5.0-9.0) Ur Specific [place] 1.010 (1.005-1.025) Urine Protein 100 (2+) H (Neg-Trace) mg/dL Urine Glucose (UA) Negative (Negative) mg/dL Urine Ketones Negative (Negative) mg/dL Urine Blood Negative (Negative) Urine Nitrite Negative (Negative) Ur Leukocyte Esterase Negative (Negative) Urine RBC 0-2 (0-2) /HPF Urine WBC 0-5 (0-5) /HPF Ur Squamous Epith Cells 0-2 (0-2) /HPF Urine Bacteria None Seen (None Seen) Hyaline Casts 3-5 (0-2) /LPF Influenza Type A (PCR) NEGATIVE (Negative) Influenza Type B (PCR) NEGATIVE (Negative) RSV RNA Qual (PCR) NEGATIVE (Negative) SARS-CoV-2 RNA (RT-PCR) NEGATIVE (Negative) Independent Interpretation I performed an independent interpretation of an: Plain X-Ray (no acute change on xray from prior) Radiology Impression Discussion of test interpretation with radiology: I have reviewed the radiologist's reading. Independent Historian Clinical information obtained from an independent historian. History obtained from or confirmed by: Spouse External Record Review External record reviewed: Inpatient record Discharge Plan Discharge Clinical Impression: Acidosis, lactic Elevated WBC count Qualifiers: Leukocytosis type: unspecified Qualified Code(s): D72.829 - Elevated white blood cell count, unspecified Open wound of heel Qualifiers: Encounter type: initial encounter Laterality: right Qualified Code(s): S91.301A - Unspecified open wound, right foot, initial encounter Patient Disposition: Admitted As Inpatient Prescriptions: No Action (DME) pen needle, diabetic [BD Martina 2nd Gen Pen Needle] 32 gauge x 5/32 needle See Rx Instructions .MEDSUPPLY Qty: 400 4RF Rx Instructions: 5 times a day (DME) hospital bed See Rx Instructions .Route .MEDSUPPLY Qty: 1 0RF Rx Instructions: As directed (DME) HOSPITAL BED See Rx Instructions .Route .MEDSUPPLY Qty: 1 0RF Rx Instructions: As directed nicotine 14 mg/24 hr patch 24 hour 1 patch transdermal DAILY Qty: 28 0RF sennosides-docusate sodium [Senna-S] 8.6-50 mg tablet 2 tab-cap PO BEDTIME 30 Days Qty: 60 2RF amiodarone 200 mg tablet 200 mg PO DAILY Qty: 30 5RF (DME) diabetic shoe lift 1 inch See Rx Instructions .Route .MEDSUPPLY Qty: 1 0RF Rx Instructions: As directed (DME) diabetic shoes See Rx Instructions .Route .MEDSUPPLY Qty: 2 0RF Rx Instructions: As directed amlodipine 10 mg tablet 10 mg PO BEDTIME Qty: 90 0RF acetaminophen [Tylenol Extra Strength] 500 mg tablet 500 mg PO Q6H PRN (Reason: pain or fever) Qty: 20 0RF dorzolamide-timolol 22.3-6.8 mg/mL drops 1 drp ophthalmic (eye) BID Tremfya 100 mg/mL auto-injector 100 mg subcut Q8W multivitamin Tablet 1 tab PO BEDTIME ascorbic acid (vitamin C) 500 mg Tablet 500 mg PO BEDTIME brimonidine 0.15 % drops 1 drp ophthalmic (eye) BID aspirin 81 mg tablet,delayed release (DR/EC) 81 mg PO BEDTIME insulin lispro [Humalog KwikPen Insulin] 100 unit/mL insulin pen 10 unit subcut TID Rx Instructions: before meals as directed rosuvastatin 40 mg tablet 40 mg PO BEDTIME cholecalciferol (vitamin D3) 25 mcg (1,000 unit) tablet 25 mcg PO BEDTIME insulin degludec 100 unit/mL (3 mL) insulin pen 20 unit subcut BEDTIME docusate sodium 100 mg Capsule 200 mg PO DAILY Qty: 30 0RF Santyl 250 unit/gram ointment 1 appl topical DAILY Trulicity 1.5 mg/0.5 mL pen injector 1.5 mg subcut QWEEK furosemide 40 mg Tablet 40 mg PO DAILY Qty: 30 0RF Protocol: Hold for SBP< HOLD for SBP < : 90 isosorbide mononitrate 30 mg Tablet Extended Release 24 Hr 30 mg PO DAILY Qty: 30 0RF Protocol: Hold for SBP< HOLD for SBP < : 90 (DME) FreeStyle Lite Strips Strip See Rx Instructions .ROUTE .MEDSUPPLY Qty: 150 11RF Rx Instructions: As directed four times a day (DME) 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 meter [FreeStyle [place] Lite] Kit See Rx Instructions .ROUTE .MEDSUPPLY Qty: 1 0RF Rx Instructions: As directed (DME) lancets [FreeStyle Lancets] 28 gauge misc See Rx Instructions .ROUTE .MEDSUPPLY Qty: 100 3RF Rx Instructions: As directed check BS QD gabapentin 300 mg capsule 300 mg PO BEDTIME Qty: 90 2RF
[2023-03-22 10:46] LABS: Appearance Urine Clear; Color Urine Yellow; Glucose Urine UA Negative (Negative); Leukocyte Esterase Urine Negative (Negative); Nitrite Urine Negative (Negative); PH 5.5 (5.0-9.0); UMIC TRIGGER UACC YES; Urine Blood Negative (Negative); Urine Ketones Negative (Negative); Urine Protein 100 (2+) mg/dL (Neg-Trace)
[2023-03-22 10:51] LABS: Bacteria Urine None Seen (None Seen); RBC Urine 0-2 /HPF (0-2); Squamous Epithelial Cell Urine 0-2 /HPF (0-2); WBC Urine 0-5 /HPF (0-5)
[2023-03-22 11:04] LABS: Reflex Lactate? Lactic Acid Added
[2023-03-22 11:13] LABS: Influenza A PCR NEGATIVE (Negative); Influenza B PCR NEGATIVE (Negative); Resp Syncy Virus RNA Qual PCR NEGATIVE (Negative); SARS COV2 PCR INHOUSE NEGATIVE (Negative)
--- NOTE | 2023-03-22 11:26 | PC.NURSE ---
20g iv inserted R hand, pt tolerated well. antibiotic and iv fluids given as documented. pt reports 2/10 R foot pain. vs documented. pt's is at his bedside.
[2023-03-22 11:50] LABS: ~Lactic Acid-LAB USE ONLY 1.9 mmol/L (0.5-2.0)
--- NOTE | 2023-03-22 12:47 | PHA.MEDREC ---
Pharmacy Consult ? Medication Reconciliation Pharmacy has completed the medication reconciliation. Patient speaks tamazight. Spoke to patient to confirm meds. Per pt, they have taken their morning meds at 6 am today.
[2023-03-22 13:36] LABS: C Reactive Protein 0.79 mg/dL (< or = 0.50)
[2023-03-22 13:51] LABS: Procalcitonin 0.05 ng/mL
--- NOTE | 2023-03-22 14:50 | PM.IMHP ---
History of Present Illness Date of Service: 03/22/23 Attending physician on admission: Emeka Schroeder Chief Complaint: foot ulcer 69-year-old male with history of GERD, coronary artery disease, peripheral vascular disease, hyperlipidemia, insulin-dependent type 2 diabetes, diabetic polyneuropathy, diabetic retinopathy, CKD stage 3, CAD with history NSTEMI, heart failure preserved ejection fraction, history endocarditis, cardiomyopathy presents to the ED earlier today for evaluation of an ulcer on the right heel. Patient was recently admitted to [facility] from 03/02-03/11 due to bradycardia, CHF exacerbation, and DEAN. He was noted to have right unstageable heel pressure injury that had been present on admission at that time and is followed by the bobbin painter and had been recommended for outpatient follow-up with wound care. He states he did follow once with wound care though notes are not available. Also has RN in the home once weekly to assist with dressings and for wound check. dressings are changed on a daily basis at home. However over the last few days, his has noted purulent drainage as well as foul odor from the wound and the patient is reporting significant pain over the ulcer. He feels he rubbed the wound over a blanket sloughing off some skin which causes these symptoms. He Is also reporting a productive cough with yellow sputum production and pleuritic chest pain which started yesterday. Denies any fevers or chills. No sick contacts. On arrival, vital signs stable. No tachycardia. Single episode of tachypnea likely secondary to pain. No hypotension. There is leukocytosis of 15.3. Renal function baseline, electrolyte levels normal. Glucose 273. Lactic acid 3.0, improved to 1.9 following 1 L IVF. CRP 0.79, ESR pending, procalcitonin 0.05. BNP 185. Urinalysis unremarkable. Negative for COVID, influenza, RSV. Chest x-ray negative for any acute cardiopulmonary abnormality. X-ray of the right foot negative for fracture or dislocation. No focal soft tissue swelling, gas, foreign body. There is also no abnormal focal bony erosion or periosteal thickening suggestive of osteomyelitis. Review of Systems Review of Systems: General: No fevers, malaise, unintentional weight loss HEENT: No sore throat, nasal congestion, rhinorrhea, sinus pain, ear pain Cardiovascular: No chest pain, palpitations, or leg edema Respiratory: +productive cough. No shortness of breath, wheezing GI: No abdominal pain, nausea, vomiting, diarrhea, constipation, melena, hematochezia : No dysuria, hematuria, increased urinary frequency, decreased urinary output MSK: No myalgia, back pain. +pain R hip, +pain R heel Neuro: No headaches, weakness, paresthesias Skin: +ulcer R heel [facility] Medical History CHF (congestive heart failure) Heel ulcer Tobacco abuse Impacted cerumen of both ears Epidermoid cyst of skin of cheek Mass of face Allergic rhinitis Trigger finger, right middle finger Fracture of distal end of left radius with routine healing Superficial abrasion Pneumonia due to COVID-19 virus Acute hypoxemic respiratory failure due to COVID-19 Distal radius fracture, right Renal insufficiency Trigger finger, right middle finger Respiratory tract infection Aortic stenosis Preoperative clearance Iliac artery stenosis, 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 History of renal calculi Compression fracture of L1 lumbar vertebra Infective endocarditis Glaucoma Left carotid stenosis GERD (gastroesophageal reflux disease) Pulmonary nodule Cardiomyopathy Congestive heart failure Overweight (BMI 25.0-29.9) Carotid artery stenosis PVD (peripheral vascular disease) Dyslipidemia Hypertension CAD (coronary artery disease) Diabetic retinopathy associated with type 2 diabetes mellitus Diabetic polyneuropathy associated with type 2 diabetes mellitus CKD stage 3 due to type 2 diabetes mellitus Diabetic 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 diabetes mellitus 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 Family History Father Stomach cancer Mother Diabetes Brother Prostate abscess Surgical History Hx of shoulder surgery Hx of coronary artery bypass graft Hx of cataract removal with insertion of prosthetic lens Hx of tonsillectomy Hx of appendectomy Hx of arthroscopy of right knee Social History Household Members: Spouse Housing: Apartment Do you presently have visiting nurse or other home services: Yes Alcohol intake: never Patient Tobacco Use Status: Current everyday Tobacco user Tobacco use type: Cigarette Cigarette Packs Per Day: 0.25 Cigarettes Per Day: 3 Years Smoked: 65 e-Cigarette/Vaping Use: Never Used Second Hand Smoke Exposure: Yes Advance Directives: Yes Advance Directives on File: Yes Advance Directives Date on File: 06/08/21 service: No Current occupational status: 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Dr) 81 mg PO BEDTIME [facility] Collagenase (Collagenase Clostridium Hist. 30 Gm Tube) 1 appl TOPICAL DAILY [facility]; Protocol Dextrose (Dextrose 50 % 25 Gm/50 Ml Syringe) 25 gm IVPUSH Q15M PRN; Protocol PRN Reason: per Hypoglycemia Standing Ord. Docusate Sodium (Docusate Sodium 100 Mg Capsule) 200 mg PO DAILY [facility] Dorzolamide/Timolol (Dorzolamide/Timolo 2.23%/0.68% 10 Ml Drbtl) 1 drop EYE-BOTH BID [facility] Furosemide (Furosemide 40 Mg Tablet) 40 mg PO DAILY [facility]; Protocol Gabapentin (Gabapentin 300 Mg Capsule) 300 mg PO BEDTIME [facility] Glucose (Glucose Gel 15 Gm Gel..Gram.) 15 gm PO Q15M PRN; Protocol PRN Reason: per Hypoglycemia Standing Ord. Heparin Sodium (Porcine) (Heparin Sodium,Porcine 5,000 Unit/Ml Vial) 5,000 unit SUBCUT Q12H [facility] Piperacillin Sod/Tazobactam (Sod 2.25 gm/ Sodium Chloride) 50 mls @ 100 mls/hr IV Q6H [facility] Insulin Human Lispro (Insulin Lispro 100 Unit/Ml 3 Ml Vial) 0 unit SUBCUT QIDACHS [facility]; Protocol Isosorbide Mononitrate (Isosorbide Mononitrate 30 Mg Tab.Er.24h) 30 mg PO DAILY [facility]; Protocol Multivitamins/Vitamin C (Multivitamin Tablet) 1 tab PO BEDTIME [facility] Nicotine (Nicotine 14 Mg Patch.Td24) mg TRANSDERMA DAILY [facility] Non-Formulary Medication (Brimonidine) 1 drop EYE-BOTH BID [facility] Non-Formulary Medication (Insulin Degludec) 15 unit SUBCUT BEDTIME [facility] Non-Formulary Medication (Rosuvastatin) 40 mg PO BEDTIME [facility] Ondansetron HCl (Ondansetron Hcl 4 Mg/2 Ml Vial) 4 mg IVPUSH Q8H PRN PRN Reason: Nausea and Vomiting Pharmacy Consult (Consult Rx Vancomycin Dosing) 1 each MISCELLANE DAILY PRN PRN Reason: Consult order Senna (Sennosides 8.6 Mg Tablet) 17.2 mg PO BEDTIME PRN PRN Reason: Constipation Senna/Docusate Sodium (Sennosides/Docusate Sodium Tablet) 2 tab PO BEDTIME [facility] Sodium Chloride (0.9 % Sodium Chloride Flush 3 Ml Syringe) 3 ml IVFLUSH QSHIFT [facility] Vitamin D (Cholecalciferol (Vitamin D3) 25 Mcg Tablet) 25 mcg PO BEDTIME [facility] Home Medications Medication Instructions Recorded Confirmed Last Taken Type ascorbic acid (vitamin C) 500 mg 500 mg PO BEDTIME 06/07/21 03/22/23 03/21/23 History tablet dorzolamide 22.3 mg-timolol 6.8 1 drp ophthalmic (eye) BID 06/07/21 03/22/23 03/22/23 06:00 History mg/mL eye drops guselkumab 100 mg/mL subcutaneous 100 mg subcut Q8W 06/07/21 03/22/23 3 Weeks Ago History auto-injector (Tremfya) ~03/01/23 multivitamin 1 tab PO BEDTIME 06/07/21 03/22/23 03/21/23 History aspirin 81 mg tablet,delayed 81 mg PO BEDTIME 12/09/22 03/22/23 03/21/23 History release brimonidine 0.15 % eye drops 1 drp ophthalmic (eye) BID 12/09/22 03/22/23 03/22/23 06:00 History cholecalciferol (vitamin D3) 25 25 mcg PO BEDTIME 12/09/22 03/22/23 03/21/23 History mcg (1,000 unit) tablet insulin degludec 100 unit/mL (3 20 unit subcut BEDTIME 12/09/22 03/22/23 03/21/23 History mL) subcutaneous pen insulin lispro 100 unit/mL 1 sliding scale dose subcut TIDAC 12/09/22 03/22/23 03/02/23 History subcutaneous pen (Humalog KwikPen (U-100) Insulin) rosuvastatin 40 mg tablet 40 mg PO BEDTIME 12/09/22 03/22/23 03/21/23 History collagenase clostridium histo. 250 1 appl topical DAILY 03/03/23 03/22/23 03/02/23 History unit/gram topical ointment (Santyl) dulaglutide 1.5 mg/0.5 mL 1.5 mg subcut PONCE@0900 03/03/23 03/22/23 03/16/23 History subcutaneous pen injector (Trulicity) Physical Exam Vital Signs and Narrative: Vital Signs: Last Vital Signs Temp 97.8 F 03/22/23 09:42 Pulse 77 03/22/23 13:12 Resp 17 03/22/23 13:12 BP 100/61 03/22/23 13:12 Pulse Ox 97 03/22/23 13:12 O2 Del Method Room Air 03/22/23 13:12 BMI result Body Mass Index 30.7 Constitutional - Awake and Alert, No apparent distress Eyes - PERRLA, EOMI Cardiovascular - S1S2, RRR, No edema Respiratory - Normal lung expansion, Normal respiratory effort, No respiratory distress, CTA bilaterally Gastrointestinal - NT / ND; +BS; No rebound or guarding Extremities - no calf tenderness bilaterally, no swelling Musculoskeletal - R hip ttp with limited extension at the hip due to pain Skin - Warm/Dry. Unstageable pressure ulcer rihgt heel with central 2.5x2cm area of scabbing with ?necrosis and foul odor. No purulent drainage Neurological - Alert & oriented x3, CN II-XII in tact, 5/5 strength BUE and BLE Psychological - Appropriate affect Results Labs 03/22/23 08:59 03/22/23 08:59 Labs: Laboratory Results - last 24 hr 03/22/23 03/22/23 03/22/23 08:59 10:00 10:34 MCV 92.6 MCH 31.0 MCHC 33.4 RDW 13.5 Plt Count 213 D MPV 10.2 Immature Gran % (Auto) 0.3 Neut % (Auto) 74.8 H Lymph % (Auto) 14.0 L [place] % (Auto) 7.3 Eos % (Auto) 3.0 Baso % (Auto) 0.6 Lymph # (Auto) 2.1 [place] # (Auto) 1.1 Eos # (Auto) 0.5 H Baso # (Auto) 0.1 Abs Immat Gran (auto) 0.05 H Absolute Neuts (auto) 11.4 H Absolute Nucleated RBC 0.000 Nucleated RBC % (auto) 0.0 Anion Gap 16 Estim Creat Clear Calc 36.8 Estimated GFR 39 Random Glucose 273 H Lactic Acid 3.0 H* Lactic Acid F/U @ 2Hr Calcium 9.4 Total Bilirubin 0.4 Direct Bilirubin 0.2 AST 28 ALT 48 H Alkaline Phosphatase 109 C-Reactive Protein 0.79 H B-Natriuretic Peptide 185 H Total Protein 7.6 Albumin 3.8 Lipase 30 Procalcitonin 0.05 Urine Color Yellow Urine Appearance Clear Urine pH 5.5 Ur Specific [place] 1.010 Urine Protein 100 (2+) H Urine Glucose (UA) Negative Urine Ketones Negative Urine Blood Negative Urine Nitrite Negative Ur Leukocyte Esterase Negative Urine RBC 0-2 Urine WBC 0-5 Ur Squamous Epith Cells 0-2 Urine Bacteria None Seen Hyaline Casts 3-5 Influenza Type A (PCR) NEGATIVE Influenza Type B (PCR) NEGATIVE RSV RNA Qual (PCR) NEGATIVE SARS-CoV-2 RNA (RT-PCR) NEGATIVE 03/22/23 11:34 MCV MCH MCHC RDW Plt Count MPV Immature Gran % (Auto) Neut % (Auto) Lymph % (Auto) [place] % (Auto) Eos % (Auto) Baso % (Auto) Lymph # (Auto) [place] # (Auto) Eos # (Auto) Baso # (Auto) Abs Immat Gran (auto) Absolute Neuts (auto) Absolute Nucleated RBC Nucleated RBC % (auto) Anion Gap Estim Creat Clear Calc Estimated GFR Random Glucose Lactic Acid Lactic Acid F/U @ 2Hr 1.9 Calcium Total Bilirubin Direct Bilirubin AST ALT Alkaline Phosphatase C-Reactive Protein B-Natriuretic Peptide Total Protein Albumin Lipase Procalcitonin Urine Color Urine Appearance Urine pH Ur Specific [place] Urine Protein Urine Glucose (UA) Urine Ketones Urine Blood Urine Nitrite Ur Leukocyte Esterase Urine RBC Urine WBC Ur Squamous Epith Cells Urine Bacteria Hyaline Casts Influenza Type A (PCR) Influenza Type B (PCR) RSV RNA Qual (PCR) SARS-CoV-2 RNA (RT-PCR) Imaging Radiologist's Impressions: Impressions Chest X-Ray 03/22/23 11:24 IMPRESSION: 1. No focal infiltrate or congestive heart failure is seen. 2. Previously seen diffuse interstitial opacities are now largely resolved. 3. There are post CABG changes. Foot X-Ray 03/22/23 11:24 IMPRESSION: 1. No fracture, dislocation or right ankle joint effusion is seen. 2. No focal soft tissue swelling, gas or foreign body is seen. There is no abnormal focal bone erosion or periosteal thickening noted to suggest acute osteomyelitis. 3. There are small calcaneal spurs. 4. There is mild bunion formation. Assessment and Plan (1) Unstageable pressure ulcer of heel: Status: Acute (2) Severe sepsis: Status: Acute Plan 69-year-old male with history of GERD, peripheral vascular disease, hyperlipidemia, insulin-dependent type 2 diabetes, diabetic polyneuropathy, diabetic retinopathy, CKD stage 3, CAD with history NSTEMI, heart failure preserved ejection fraction, history endocarditis, cardiomyopathy admitted for infected unstageable pressure ulcer R heel with severe sepsis. #Infected Unstageable pressure ulcer right heel with severe sepsis -leukocytosis 15.3, tachypnea 26, lactic acid 3.0 improved to 1.9 following 1 L IVF, SBP drop >40 without hypotension -XR foot negative for osseous abnormality -CRP 0.79, ESR 80. MRI R foot w/wo contrast ordered -Arterial duplex shows elevated velocities in the common femoral artery and proximal superficial femoral artery with monophasic waveforms suggestive of least moderate peripheral vascular disease worsened from priors -vascular surgery consult placed -Dressing changes per wound RN last admission ordered. Updated wound care consult placed -No debridement at this time per gen surgery - IV vancomycin and Zosyn ( initiated 03/22) - follow CBC, cultures. Trend CRP/ESR if indicated #R hip pain- h/o R hip fracture s/p Right hip IMN 12/10 -continues with pain with movement of joint/extremity -seen by ortho 01/30 advised that his discomfort is part of routine part of healing. Recommended follow up in 6 weeks with repeat imaging, sooner if needed -PT eval. Consider ortho consult if indicated # insulin-dependent type 2 diabetes- with hyperglycemia - uncontrolled last hemoglobin A1c 9.2, goal <8.0% given pt age - dose adjusted basal insulin - Humalog on sliding scale - diabetic diet, POC glucose #Frequenct PVCs -continue amiodorone (initiated last admission due to bradycardia/PVCs) # diabetic polyneuropathy - continue gabapentin # diabetic retinopathy, unspecified - continue eyedrops # CAD/ HLD/cardiomyopathy - continue ASA isosorbide, statin # heart failure preserved ejection fraction - clinically euvolemic on exam - continue p.o. furosemide # hypertension -blood pressures improving but were soft -resume antihypertensives a.m. # PVD - continue ASA - check arterial duplex right lower extremity as above # CKD stage 3 - renal function baseline # anemia of chronic disease - H/ H above transfusion threshold, stable DVT prophylaxis-heparin resuscitation okay but do not intubate patient requires inpatient stay at least 2 midnights for further management of infected unstageable ulcer of the right heel now with severe sepsis and probable necrosis in uncontrolled diabetic requiring IV antibiotics, an expert consultation adn well as close monitoring to monitor for and prevent decompensation. Quality Stroke Does the patient have a stroke diagnosis?: No VTE Prior VTE?: No VTE Risk Level:: Medical - moderate - high VTE Device Contraindication: Treatment Not Indicated VTE Drug Contraindication: N/A - Med Ordered
--- NOTE | 2023-03-22 15:28 | PHA.PROG ---
Admission Date/Time: March 22, 2023 14:40 Indication:ssti Weight in k.183 kg Adjusted body weight in K.7 kg Shafter body weight in K.8 Obesity Dosing Indication % IBW: Serum Creatinine - Last 168 Hours 03/22/23 08:59 Creatinine 1.70 H Estimated CrCl and GFR - Last 168 Hours 03/22/23 08:59 Estim Creat Clear Calc 36.8 Estimated GFR 39 Vancomycin Loading Dose: 2000 mg Current Vancomycin Dosing Regimen: 1000 mg q24h Vancomycin Monitoring using AUC goal of 400 - 600 range with trough as surrogate marker: [id number] Date and Time for next Vancomycin Level to be drawn: 03/24/23 (before 3rd dose) Pharmacist Comments on Vancomycin Plan: obese patient Vancomycin dosing will take advantage of [employer] as a clinical decision support tool that uses Bayesian modeling to calculate individual patient's pharmacokinetic parameters and forecast the patient's drug concentration time course with the target goal AUC 24 range of 400 - 600 mg/L/hr.
[2023-03-22 16:10] LABS: Erythrocyte Sedimentation Rate 80 MM/HR (0-15)
--- NOTE | 2023-03-22 16:52 | P.CONGS_ITS ---
History of Present Illness Consult details Consult date: 03/22/23 Narrative: Patient is a 77-year-old male with multiple multiple medical comorbidities who presents here with a combination of respiratory symptoms and right heel pain. Consult was for evaluation of the right heel. Chart was reviewed and patient evaluated. X-ray of heal essentially within normal limits. [facility] Past Medical History Medical History CHF (congestive heart failure) Heel ulcer Tobacco abuse Impacted cerumen of both ears Epidermoid cyst of skin of cheek Mass of face Allergic rhinitis Trigger finger, right middle finger Fracture of distal end of left radius with routine healing Superficial abrasion Pneumonia due to COVID-19 virus Acute hypoxemic respiratory failure due to COVID-19 Distal radius fracture, right Renal insufficiency Trigger finger, right middle finger Respiratory tract infection Aortic stenosis Preoperative clearance Iliac artery stenosis, 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 History of renal calculi Compression fracture of L1 lumbar vertebra Infective endocarditis Glaucoma Left carotid stenosis GERD (gastroesophageal reflux disease) Pulmonary nodule Cardiomyopathy Congestive heart failure Overweight (BMI 25.0-29.9) Carotid artery stenosis PVD (peripheral vascular disease) Dyslipidemia Hypertension CAD (coronary artery disease) Diabetic retinopathy associated with type 2 diabetes mellitus Diabetic polyneuropathy associated with type 2 diabetes mellitus CKD stage 3 due to type 2 diabetes mellitus Diabetic 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 diabetes mellitus CHCF (current) use of insulin Family History Family History Father Stomach cancer Mother Diabetes Brother Prostate abscess Surgical History Surgical History Hx of shoulder surgery Hx of coronary artery bypass graft Hx of cataract removal with insertion of prosthetic lens Hx of tonsillectomy Hx of appendectomy Hx of arthroscopy of right knee Social History Social History Household Members: Spouse Housing: Apartment Do you presently have visiting nurse or other home services: Yes Alcohol intake: never Patient Tobacco Use Status: Current everyday Tobacco user Tobacco use type: Cigarette Cigarette Packs Per Day: 0.25 Cigarettes Per Day: 3 Years Smoked: 65 e-Cigarette/Vaping Use: Never Used Second Hand Smoke Exposure: Yes Advance Directives: Yes Advance Directives on File: Yes Advance Directives Date on File: 06/08/21 service: No Current occupational status: 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Dr) 81 mg PO BEDTIME [facility] Atorvastatin Calcium (Atorvastatin Calcium 80 Mg Tablet) 80 mg PO BEDTIME [facility] Brimonidine Tartrate (Brimonidine Tartrate 0.2% Oph 5 Ml Bottle) 1 drop EYE- BOTH BID [facility] Collagenase (Collagenase Clostridium Hist. 30 Gm Tube) 1 appl TOPICAL DAILY [facility]; Protocol Dextrose (Dextrose 50 % 25 Gm/50 Ml Syringe) 25 gm IVPUSH Q15M PRN; Protocol PRN Reason: per Hypoglycemia Standing Ord. Docusate Sodium (Docusate Sodium 100 Mg Capsule) 200 mg PO DAILY [facility] Dorzolamide/Timolol (Dorzolamide/Timolo 2.23%/0.68% 10 Ml Drbtl) 1 drop EYE- BOTH BID [facility] Furosemide (Furosemide 40 Mg Tablet) 40 mg PO DAILY [facility]; Protocol Gabapentin (Gabapentin 300 Mg Capsule) 300 mg PO BEDTIME [facility] Glucose (Glucose Gel 15 Gm Gel..Gram.) 15 gm PO Q15M PRN; Protocol PRN Reason: per Hypoglycemia Standing Ord. Guaifenesin (Guaifenesin 200 Mg/10 Ml 10 Ml Liquid) 10 ml PO Q6H PRN PRN Reason: Cough Heparin Sodium (Porcine) (Heparin Sodium,Porcine 5,000 Unit/Ml Vial) 5,000 unit SUBCUT Q12H [facility] Piperacillin Sod/Tazobactam (Sod 2.25 gm/ Sodium Chloride) 50 mls @ 100 mls/hr IV Q6H [facility] Vancomycin HCl 1,000 mg/ (Sodium Chloride) 270 mls @ 270 mls/hr IV Q24H [facility] Insulin Human Lispro (Insulin Lispro 100 Unit/Ml 3 Ml Vial) 0 unit SUBCUT QIDACHS [facility]; Protocol Isosorbide Mononitrate (Isosorbide Mononitrate 30 Mg Tab.Er.24h) 30 mg PO DAILY [facility]; Protocol Multivitamins/Vitamin C (Multivitamin Tablet) 1 tab PO BEDTIME [facility] Nicotine (Nicotine 14 Mg Patch.Td24) 14 mg TRANSDERMA DAILY [facility] Non-Formulary Medication (Insulin Degludec) 10 unit SUBCUT BEDTIME [facility] Ondansetron HCl (Ondansetron Hcl 4 Mg/2 Ml Vial) 4 mg IVPUSH Q8H PRN PRN Reason: Nausea and Vomiting Pharmacy Consult (Consult Rx Vancomycin Dosing) 1 each MISCELLANE DAILY PRN PRN Reason: Consult order Senna (Sennosides 8.6 Mg Tablet) 17.2 mg PO BEDTIME PRN PRN Reason: Constipation Senna/Docusate Sodium (Sennosides/Docusate Sodium Tablet) 2 tab PO BEDTIME [facility] Sodium Chloride (0.9 % Sodium Chloride Flush 3 Ml Syringe) 3 ml IVFLUSH QSHIFT [facility] Vitamin D (Cholecalciferol (Vitamin D3) 25 Mcg Tablet) 25 mcg PO BEDTIME [facility] Home Medications Medication Instructions Recorded Confirmed Last Taken Type ascorbic acid (vitamin C) 500 mg 500 mg PO BEDTIME 06/07/21 03/22/23 03/21/23 History tablet dorzolamide 22.3 mg-timolol 6.8 1 drp ophthalmic (eye) BID 06/07/21 03/22/23 03/22/23 06:00 History mg/mL eye drops guselkumab 100 mg/mL subcutaneous 100 mg subcut Q8W 06/07/21 03/22/23 3 Weeks Ago History auto-injector (Tremfya) ~03/01/23 multivitamin 1 tab PO BEDTIME 06/07/21 03/22/23 03/21/23 History aspirin 81 mg tablet,delayed 81 mg PO BEDTIME 12/09/22 03/22/23 03/21/23 History release brimonidine 0.15 % eye drops 1 drp ophthalmic (eye) BID 12/09/22 03/22/23 03/22/23 06:00 History cholecalciferol (vitamin D3) 25 25 mcg PO BEDTIME 12/09/22 03/22/23 03/21/23 History mcg (1,000 unit) tablet insulin degludec 100 unit/mL (3 20 unit subcut BEDTIME 12/09/22 03/22/23 03/21/23 History mL) subcutaneous pen insulin lispro 100 unit/mL 1 sliding scale dose subcut TIDAC 12/09/22 03/22/23 03/02/23 History subcutaneous pen (Humalog KwikPen (U-100) Insulin) rosuvastatin 40 mg tablet 40 mg PO BEDTIME 12/09/22 03/22/23 03/21/23 History collagenase clostridium histo. 250 1 appl topical DAILY 03/03/23 03/22/23 03/02/23 History unit/gram topical ointment (Santyl) dulaglutide 1.5 mg/0.5 mL 1.5 mg subcut PONCE@0900 03/03/23 03/22/23 03/16/23 History subcutaneous pen injector (Trulicity) Physical Exam 2 Vital Signs: Vital Signs: Last Vital Signs Temp 97.8 F 03/22/23 09:42 Pulse 79 03/22/23 14:15 Resp 13 03/22/23 14:15 BP 131/69 03/22/23 14:15 Pulse Ox 97 03/22/23 13:12 O2 Del Method Room Air 03/22/23 13:12 BMI result Body Mass Index 30.7 Extrem: Other: Right lower extremity is grossly intact. No obvious palpable pulses demonstrated. Patient has a proximally 3 x 1 cm right heel eschar/ulcer. with eschar Results Labs 03/22/23 08:59 03/22/23 08:59 Labs: Abnormal lab results 03/22/23 03/22/23 03/22/23 Range/Units 08:59 10:34 15:14 WBC 15.3 H (4.8-10.8) X10*3/uL RBC 3.26 L (4.60-5.80) X10*6/uL Hgb 10.1 L (14.0-18.0) g/dl Hct 30.2 L (42.0-52.0) % Neut % (Auto) 74.8 H (45-73) % Lymph % (Auto) 14.0 L (20-40) % Eos # (Auto) 0.5 H (0.0-0.4) X10*3/uL Abs Immat Gran (auto) 0.05 H (0.00-0.03) X10*3/uL Absolute Neuts (auto) 11.4 H (2.0-8.3) x10*3/uL ESR 80 H (0-15) MM/HR BUN 36 H (9-16) mg/dL Creatinine 1.70 H (0.5-1.4) mg/dL Random Glucose 273 H (60-115) mg/dL Lactic Acid 3.0 H* (0.5-2.0) mmol/L ALT 48 H (0-40) U/L C-Reactive Protein 0.79 H (< or = 0.50) mg/dL B-Natriuretic Peptide 185 H (<100) pg/mL Urine Protein 100 (2+) H (Neg-Trace) mg/dL Short CBC 03/22/23 Range/Units 08:59 WBC 15.3 H (4.8-10.8) X10*3/uL Hgb 10.1 L (14.0-18.0) g/dl Hct 30.2 L (42.0-52.0) % Plt Count 213 D (160-400) X10*3/uL BMP 03/22/23 08:59 Sodium 140 Potassium 4.5 Chloride 106 Carbon Dioxide 23 BUN 36 H Creatinine 1.70 H Calcium 9.4 Liver Function 03/22/23 Range/Units 08:59 Total Bilirubin 0.4 (0.0-1.0) mg/dL Direct Bilirubin 0.2 (0.0-0.5) mg/dL AST 28 (5-37) U/L ALT 48 H (0-40) U/L Alkaline Phosphatase 109 (39-117) U/L Albumin 3.8 (3.5-5.0) g/dL Urine 03/22/23 Range/Units 10:34 Urine Color Yellow Urine Appearance Clear Urine pH 5.5 (5.0-9.0) Ur Specific [place] 1.010 (1.005-1.025) Urine Protein 100 (2+) H (Neg-Trace) mg/dL Urine Glucose (UA) Negative (Negative) mg/dL All other labs normal. Assessment and Plan (1) Open wound of heel: Qualifiers: Encounter type: initial encounter Laterality: right Qualified Code(s): S91.301A - Unspecified open wound, right foot, initial encounter Status: Acute Plan Current recommendation is for heel pad, elevation of the extremity, protective dressing, and further interventions and studies will be directed by the patient's clinical course and exam. May eventually need debridement. Procedures Date of Service Date of Service: 03/22/23
[2023-03-22] MEDS: Heparin Sodium,Porcine 5,000 UNIT/ML VIAL 5000 UNIT SUBCUT (17:26)
[2023-03-22] MEDS: Piperacillin Sodium/Tazobactam 2.25 GM in 0.9 % Sodium Chloride 50 ML IV (17:27)
[2023-03-22] MEDS: 0.9 % Sodium Chloride Flush 3 ML SYRINGE IVFLUSH ×2 (17:28→22:17)
[2023-03-22 18:49] LABS: Glucose, Whole Blood 198 mg/dL (60-115)
[2023-03-22 21:08] LABS: Glucose, Whole Blood 209 mg/dL (60-115)
[2023-03-22] MEDS: Sennosides/Docusate Sodium TABLET 2 TAB PO (22:15)
[2023-03-22] MEDS: Ascorbic Acid 500 MG TABLET PO (22:15)
[2023-03-22] MEDS: amLODIPine Besylate 10 MG TABLET PO (22:15)
[2023-03-22] MEDS: Atorvastatin Calcium 80 MG TABLET PO (22:15)
[2023-03-22] MEDS: Aspirin Enteric Coated 81 MG TABLET.DR PO (22:15)
[2023-03-22] MEDS: Multivitamin TABLET 1 TAB PO (22:16)
[2023-03-22] MEDS: Cholecalciferol (Vitamin D3) 25 MCG TABLET PO (22:16)
[2023-03-22] MEDS: Dorzolamide/Timolo 2.23%/0.68% 10 ML DRBTL 1 DROP EYE-BOTH (22:16)
[2023-03-22] MEDS: Brimonidine Tartrate 0.2% Oph 5 ML BOTTLE 1 DROP EYE-BOTH (22:16)
[2023-03-22] MEDS: Insulin Lispro 100 UNIT/ML 3 ML VIAL SUBCUT (22:16)
[2023-03-22] MEDS: Gabapentin 300 MG CAPSULE PO (22:16)
[2023-03-23 03:30] VITALS: BP 151/59; PULSE 74; RESP 18; TEMP 37; O2SAT 95
[2023-03-23] MEDS: Heparin Sodium,Porcine 5,000 UNIT/ML VIAL 5000 UNIT SUBCUT ×2 (04:30→17:24)
--- NOTE | 2023-03-23 06:37 | P.CONGS_ITS ---
History of Present Illness Consult details Consult date: 03/23/23 Reason for consult: wound care Narrative: 77-year-old gentleman well known to me for history of peripheral vascular disease. He has a nonhealing right leg heel ulcer. He has undergone noninvasive testing which is concerning for common femoral and SFA disease. He has a known history of smoking diabetes and congestive heart failure. He now presents to us for vascular evaluation. Of note he has a history of bilateral iliac stents dating back to 2019 and in March of 2021 he had right SFA atherectomy and stent placement. Review of Systems 2 Review of Systems: Yes all other systems are reviewed and are negative Constitutional: Constitutional: Reports no additional constitutional complaints ENT: Reports Normal hearing present Cardiovascular: Cardiovascular: Denies chest pain, Denies chest pain at rest, Denies chest pain with activity and Denies pedal edema Respiratory: Respiratory: Denies cough Gastrointestinal: Gastrointestinal: Denies abdominal pain Musculoskeletal: Musculoskeletal: Denies abnormal gait, Denies muscle cramps and Denies radiating pain into limb Integumentary/Breasts: Skin/Breast: Denies skin ulcer and Denies wounds Neurologic: Reports Normal hearing present and Denies abnormal gait Psychiatric: Psychiatric: Reports no additional psychiatric complaints [facility] Past Medical History Medical History CHF (congestive heart failure) Heel ulcer Tobacco abuse Impacted cerumen of both ears Epidermoid cyst of skin of cheek Mass of face Allergic rhinitis Trigger finger, right middle finger Fracture of distal end of left radius with routine healing Superficial abrasion Pneumonia due to COVID-19 virus Acute hypoxemic respiratory failure due to COVID-19 Distal radius fracture, right Renal insufficiency Trigger finger, right middle finger Respiratory tract infection Aortic stenosis Preoperative clearance Iliac artery stenosis, 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 History of renal calculi Compression fracture of L1 lumbar vertebra Infective endocarditis Glaucoma Left carotid stenosis GERD (gastroesophageal reflux disease) Pulmonary nodule Cardiomyopathy Congestive heart failure Overweight (BMI 25.0-29.9) Carotid artery stenosis PVD (peripheral vascular disease) Dyslipidemia Hypertension CAD (coronary artery disease) Diabetic retinopathy associated with type 2 diabetes mellitus Diabetic polyneuropathy associated with type 2 diabetes mellitus CKD stage 3 due to type 2 diabetes mellitus Diabetic 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 diabetes mellitus 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 Family History Family History Father Stomach cancer Mother Diabetes Brother Prostate abscess Surgical History Surgical History Hx of shoulder surgery Hx of coronary artery bypass graft Hx of cataract removal with insertion of prosthetic lens Hx of tonsillectomy Hx of appendectomy Hx of arthroscopy of right knee Social History Social History Household Members: Significant Other Housing: Apartment Alcohol intake: never Patient Tobacco Use Status: Never used Tobacco Tobacco use type: Cigarette Cigarette Packs Per Day: 0.25 Cigarettes Per Day: 3 Years Smoked: 65 e-Cigarette/Vaping Use: Never Used Second Hand Smoke Exposure: Yes Use of substances other than those prescribed or required for medical reasons: No Have you been hit, kicked, punched, or otherwise hurt by someone within the past year? If so, by whom?: No Do you feel safe in your current relationship?: Yes Is there a partner from a previous relationship who is making you feel unsafe now?: No Advance Directives: Yes Advance Directives on File: Yes Advance Directives Date on File: 06/08/21 Do you have thoughts of harming others: None Do you have a plan to hurt others: No Plan Nutrition Risks: No Nutritional Risk service: No Current occupational status: 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 Cognitive needs: No Hearing needs: No Vision needs: No Meds Allergies Allergy/AdvReac Type Severity Reaction Status Date / Time No Known Allergies Allergy Verified 03/22/23 08:39 Active Medications: Current Medications Acetaminophen (Acetaminophen 325 Mg Tablet) 650 mg PO Q6H PRN PRN Reason: Pain, Mild (Pain Scale 1-3) Amiodarone HCl (Amiodarone Hcl 200 Mg Tablet) 200 mg PO DAILY [facility] Amlodipine Besylate (Amlodipine Besylate 10 Mg Tablet) 10 mg PO BEDTIME [facility]; Protocol Last Admin: 03/22/23 22:15 Dose: 10 mg Ascorbic Acid (Ascorbic Acid 500 Mg Tablet) 500 mg PO BEDTIME [facility] Last Admin: 03/22/23 22:15 Dose: 500 mg Aspirin (Aspirin Enteric Coated 81 Mg Tablet.Dr) 81 mg PO BEDTIME [facility] Last Admin: 03/22/23 22:15 Dose: 81 mg Atorvastatin Calcium (Atorvastatin Calcium 80 Mg Tablet) 80 mg PO BEDTIME [facility] Last Admin: 03/22/23 22:15 Dose: 80 mg Brimonidine Tartrate (Brimonidine Tartrate 0.2% Oph 5 Ml Bottle) 1 drop EYE- BOTH BID [facility] Last Admin: 03/22/23 22:16 Dose: 1 drop Collagenase (Collagenase Clostridium Hist. 30 Gm Tube) 1 appl TOPICAL DAILY [facility]; Protocol Dextrose (Dextrose 50 % 25 Gm/50 Ml Syringe) 25 gm IVPUSH Q15M PRN; Protocol PRN Reason: per Hypoglycemia Standing Ord. Docusate Sodium (Docusate Sodium 100 Mg Capsule) 200 mg PO DAILY [facility] Dorzolamide/Timolol (Dorzolamide/Timolo 2.23%/0.68% 10 Ml Drbtl) 1 drop EYE- BOTH BID [facility] Last Admin: 03/22/23 22:16 Dose: 1 drop Furosemide (Furosemide 40 Mg Tablet) 40 mg PO DAILY [facility]; Protocol Gabapentin (Gabapentin 300 Mg Capsule) 300 mg PO BEDTIME [facility] Last Admin: 03/22/23 22:16 Dose: 300 mg Glucose (Glucose Gel 15 Gm Gel..Gram.) 15 gm PO Q15M PRN; Protocol PRN Reason: per Hypoglycemia Standing Ord. Guaifenesin (Guaifenesin 200 Mg/10 Ml 10 Ml Liquid) 10 ml PO Q6H PRN PRN Reason: Cough Heparin Sodium (Porcine) (Heparin Sodium,Porcine 5,000 Unit/Ml Vial) 5,000 unit SUBCUT Q12H [facility] Last Admin: 03/23/23 04:30 Dose: 5,000 unit Piperacillin Sod/Tazobactam (Sod 2.25 gm/ Sodium Chloride) 50 mls @ 100 mls/hr IV Q6H [facility] Last Admin: 03/23/23 03:10 Dose: Not Given Vancomycin HCl 1,000 mg/ (Sodium Chloride) 270 mls @ 270 mls/hr IV Q24H [facility] Insulin Human Lispro (Insulin Lispro 100 Unit/Ml 3 Ml Vial) 0 unit SUBCUT QIDACHS [facility]; Protocol Last Admin: 03/22/23 22:16 Dose: 4 unit Isosorbide Mononitrate (Isosorbide Mononitrate 30 Mg Tab.Er.24h) 30 mg PO DAILY [facility]; Protocol Multivitamins/Vitamin C (Multivitamin Tablet) 1 tab PO BEDTIME [facility] Last Admin: 03/22/23 22:16 Dose: 1 tab Nicotine (Nicotine 14 Mg Patch.Td24) 14 mg TRANSDERMA DAILY [facility] Non-Formulary Medication (Insulin Degludec) 10 unit SUBCUT BEDTIME [facility] Last Admin: 03/22/23 22:16 Dose: Not Given Ondansetron HCl (Ondansetron Hcl 4 Mg/2 Ml Vial) 4 mg IVPUSH Q8H PRN PRN Reason: Nausea and Vomiting Pharmacy Consult (Consult Rx Vancomycin Dosing) 1 each MISCELLANE DAILY PRN PRN Reason: Consult order Senna (Sennosides 8.6 Mg Tablet) 17.2 mg PO BEDTIME PRN PRN Reason: Constipation Senna/Docusate Sodium (Sennosides/Docusate Sodium Tablet) 2 tab PO BEDTIME [facility] Last Admin: 03/22/23 22:15 Dose: 2 tab Sodium Chloride (0.9 % Sodium Chloride Flush 3 Ml Syringe) 3 ml IVFLUSH QSHIFT [facility] Last Admin: 03/22/23 22:17 Dose: 3 ml Vitamin D (Cholecalciferol (Vitamin D3) 25 Mcg Tablet) 25 mcg PO BEDTIME [facility] Last Admin: 03/22/23 22:16 Dose: 25 mcg Home Medications Medication Instructions Recorded Confirmed Last Taken Type ascorbic acid (vitamin C) 500 mg 500 mg PO BEDTIME 06/07/21 03/22/23 03/21/23 History tablet dorzolamide 22.3 mg-timolol 6.8 1 drp ophthalmic (eye) BID 06/07/21 03/22/23 03/22/23 06:00 History mg/mL eye drops guselkumab 100 mg/mL subcutaneous 100 mg subcut Q8W 06/07/21 03/22/23 3 Weeks Ago History auto-injector (Tremfya) ~03/01/23 multivitamin 1 tab PO BEDTIME 06/07/21 03/22/23 03/21/23 History aspirin 81 mg tablet,delayed 81 mg PO BEDTIME 12/09/22 03/22/23 03/21/23 History release brimonidine 0.15 % eye drops 1 drp ophthalmic (eye) BID 12/09/22 03/22/23 03/22/23 06:00 History cholecalciferol (vitamin D3) 25 25 mcg PO BEDTIME 12/09/22 03/22/2303/21/23 History mcg (1,000 unit) tablet insulin degludec 100 unit/mL (3 20 unit subcut BEDTIME 12/09/22 03/22/23 03/21/23 History mL) subcutaneous pen insulin lispro 100 unit/mL 1 sliding scale dose subcut TIDAC 12/09/22 03/22/23 03/02/23 History subcutaneous pen (Humalog KwikPen (U-100) Insulin) rosuvastatin 40 mg tablet 40 mg PO BEDTIME 12/09/22 03/22/23 03/21/23 History collagenase clostridium histo. 250 1 appl topical DAILY 03/03/23 03/22/23 03/02/23 History unit/gram topical ointment (Santyl) dulaglutide 1.5 mg/0.5 mL 1.5 mg subcut PONCE@0900 03/03/23 03/22/23 03/16/23 History subcutaneous pen injector (Trulicity) Physical Exam 2 Vital Signs: Vital Signs: Last Vital Signs Temp 98.6 F 03/23/23 03:30 Pulse 74 03/23/23 03:30 Resp 18 03/23/23 03:30 BP 151/59 H 03/23/23 03:30 Pulse Ox 95 03/23/23 03:30 O2 Del Method Room Air 03/23/23 03:30 BMI result Body Mass Index 30.7 Const: General: cooperative, healthy appearing and comfortable O rientation/consciousness: oriented to person, oriented to place and oriented to time HEENT: Head: Yes normal to inspection Neck: Neck: Yes normal visual inspection Carotids: no bruits Chest: Chest palpation & inspection: normal inspection of the chest Resp: Effort & Inspection: normal respiratory effort and able to speak in complete sentences Auscultation: clear to auscultation bilaterally, no crackles, no rales, no rhonchi and no wheezes Cardio: Other: bilateral DP signals Rate: regular rate Rhythm: regular rhythm Heart sounds: S1 normal heart sound present and S2 normal heart sound present Bruits: no carotid bruits Peripheral pulses: Peripheral pulses 2+ throughout GI: Inspection: Yes normal to inspection Skin: Other: right heel ulcer Wounds: no wounds Hair: normal Neuro: General: oriented to person, oriented to place and oriented to time Cranial nerves: Yes CN's II-XII intact bilaterally and Yes Normal hearing present Cognition (Neuro): normal cognition Motor exam (neuro): 5/5 motor strength present throughout Extrem: Other: venous exam: No significant superficial varicosities or spider telangiectasias, minimal edema General: No clubbing, No cyanosis and No edema Psych: Appearance: grossly normal Mental Status: mental status grossly normal Speech and movement: Normal speech and movement present Results Labs 03/22/23 08:59 03/22/23 08:59 Labs: Abnormal lab results 03/22/23 03/22/23 03/22/23 Range/Units 08:59 10:34 15:14 WBC 15.3 H (4.8-10.8) X10*3/uL RBC 3.26 L (4.60-5.80) X10*6/uL Hgb 10.1 L (14.0-18.0) g/dl Hct 30.2 L (42.0-52.0) % Neut % (Auto) 74.8 H (45-73) % Lymph % (Auto) 14.0 L (20-40) % Eos # (Auto) 0.5 H (0.0-0.4) X10*3/uL Abs Immat Gran (auto) 0.05 H (0.00-0.03) X10*3/uL Absolute Neuts (auto) 11.4 H (2.0-8.3) x10*3/uL ESR 80 H (0-15) MM/HR BUN 36 H (9-16) mg/dL Creatinine 1.70 H (0.5-1.4) mg/dL POC Glucose (60-115) mg/dL Random Glucose 273 H (60-115) mg/dL Lactic Acid 3.0 H* (0.5-2.0) mmol/L ALT 48 H (0-40) U/L C-Reactive Protein 0.79 H (< or = 0.50) mg/dL B-Natriuretic Peptide 185 H (<100) pg/mL Urine Protein 100 (2+) H (Neg-Trace) mg/dL 03/22/23 03/22/23 Range/Units 18:44 20:17 WBC (4.8-10.8) X10*3/uL RBC (4.60-5.80) X10*6/uL Hgb (14.0-18.0) g/dl Hct (42.0-52.0) % Neut % (Auto) (45-73) % Lymph % (Auto) (20-40) % Eos # (Auto) (0.0-0.4) X10*3/uL Abs Immat Gran (auto) (0.00-0.03) X10*3/uL Absolute Neuts (auto) (2.0-8.3) x10*3/uL ESR (0-15) MM/HR BUN (9-16) mg/dL Creatinine (0.5-1.4) mg/dL POC Glucose 198 H 209 H (60-115) mg/dL Random Glucose (60-115) mg/dL Lactic Acid (0.5-2.0) mmol/L ALT (0-40) U/L C-Reactive Protein (< or = 0.50) mg/dL B-Natriuretic Peptide (<100) pg/mL Urine Protein (Neg-Trace) mg/dL Short CBC 03/22/23 Range/Units 08:59 WBC 15.3 H (4.8-10.8) X10*3/uL Hgb 10.1 L (14.0-18.0) g/dl Hct 30.2 L (42.0-52.0) % Plt Count 213 D (160-400) X10*3/uL BMP 03/22/23 08:59 Sodium 140 Potassium 4.5 Chloride 106 Carbon Dioxide 23 BUN 36 H Creatinine 1.70 H Calcium 9.4 Liver Function 03/22/23 Range/Units 08:59 Total Bilirubin 0.4 (0.0-1.0) mg/dL Direct Bilirubin 0.2 (0.0-0.5) mg/dL AST 28 (5-37) U/L ALT 48 H (0-40) U/L Alkaline Phosphatase 109 (39-117) U/L Albumin 3.8 (3.5-5.0) g/dL Urine 03/22/23 Range/Units 10:34 Urine Color Yellow Urine Appearance Clear Urine pH 5.5 (5.0-9.0) Ur Specific [place] 1.010 (1.005-1.025) Urine Protein 100 (2+) H (Neg-Trace) mg/dL Urine Glucose (UA) Negative (Negative) mg/dL All other labs normal. Assessment and Plan (1) PAD (peripheral artery disease): Status: Acute Plan in short patient has a significant history of peripheral vascular disease. I did have an opportunity to review the noninvasive testing which is concerning for common femoral and SFA disease. At the current time would continue with local wound care And antibiotics. Would offload that heel as much as possible. I will schedule him for endovascular intervention towards the early portion of next week. Would need evaluation of arterial system prior to any debridement. I did appreciate Nephrologys note from the past. Once again would continue with local wound care and antibiotics. Will schedule him for endovascular intervention towards the early portion of next week. Thank you for allowing us to assist in his care. Procedures Date of Service Date of Service: 03/23/23
[2023-03-23 06:58] LABS: MANUAL DIFF FLAG NO
[2023-03-23 07:25] LABS: Basophils Absolute Auto 0.1 X10*3/uL (0.0-0.2); Basophils Percent Auto 0.7 % (0-2); Eosinophils Absolute Auto 0.5 X10*3/uL (0.0-0.4); Hematocrit 29.7 % (42.0-52.0); Imm Gran Abs Auto 0.03 X10*3/uL (0.00-0.03); Imm Gran Pct Auto 0.3 % (0.0-0.4); Lymphocytes Absolute Auto 3.1 X10*3/uL (1.2-4.9); Lymphocytes Percent Auto 27.5 % (20-40); Mean Corpuscular HGB Conc 33.7 g/dl (31.0-36.0); Mean Corpuscular Hemoglobin 31.6 pg (27.0-33.0); Mean Platelet Volume 10.6 fL (9.4-12.4); Monocytes Absolute Auto 0.8 X10*3/uL (0.1-1.2); Monocytes Percent Auto 7.5 % (2-11); Neutrophils Absolute Auto 6.7 x10*3/uL (2.0-8.3); Platelet Count 204 X10*3/uL (160-400); Red Blood Count 3.16 X10*6/uL (4.60-5.80); Red Cell Distribution Width 13.8 % (11.0-16.0); White Blood Count 11.1 X10*3/uL (4.8-10.8)
[2023-03-23 07:35] LABS: Anion Gap 15 (12-20); Blood Urea Nitrogen 27 mg/dL (9-16); Calcium 9.2 mg/dL (8.4-10.2); Carbon Dioxide 24 mmol/L (22-29); Chloride 109 mmol/L (96-108); Creatinine Clr Calc Pharmacy 46.4; Estimated Glomerular Filt Rate 51; Glucose Random 184 mg/dL (60-115); Sodium 144 mmol/L (135-145)
[2023-03-23 08:00] VITALS: BP 142/58; PULSE 72; RESP 20; TEMP 37.2; O2SAT 92
[2023-03-23 08:13] LABS: Glucose, Whole Blood 177 mg/dL (60-115)
[2023-03-23] MEDS: Piperacillin Sodium/Tazobactam 2.25 GM in 0.9 % Sodium Chloride 50 ML IV (08:42)
[2023-03-23] MEDS: Docusate Sodium 100 MG CAPSULE 200 MG PO (08:43)
[2023-03-23] MEDS: Amiodarone HCL 200 MG TABLET PO (08:43)
[2023-03-23] MEDS: Insulin Lispro 100 UNIT/ML 3 ML VIAL SUBCUT ×4 (08:43→21:52)
[2023-03-23] MEDS: Isosorbide Mononitrate 30 MG TAB.ER.24H PO (08:43)
[2023-03-23] MEDS: Furosemide 40 MG TABLET PO (08:43)
[2023-03-23] MEDS: Nicotine 14 MG PATCH.TD24 TRANSDERMA (08:44)
[2023-03-23] MEDS: 0.9 % Sodium Chloride Flush 3 ML SYRINGE IVFLUSH ×2 (08:44→14:49)
--- NOTE | 2023-03-23 08:49 | P.PNIM_ITS ---
Subjective Subjective Date of Service: 03/23/23 Interval History: Seen in follow-up for infected unstageable pressure ulcers of right heel Interval history: Patient reports improvement in pain. Cough has resolved. No other complaints at this time Review of Systems Review of Systems: Yes all other systems are reviewed and are negative Physical Exam 2 Vital Signs: Vital Signs: Last Vital Signs Temp 98.9 F 03/23/23 08:00 Pulse 72 03/23/23 08:00 Resp 20 03/23/23 08:00 BP 142/58 H 03/23/23 08:00 Pulse Ox 92 03/23/23 08:00 O2 Del Method Room Air 03/23/23 08:00 BMI result Body Mass Index 30.7 Constitutional - Awake and Alert, No apparent distress Eyes - PERRLA, EOMI Cardiovascular - S1S2, RRR, No edema Respiratory - Normal lung expansion, Normal respiratory effort, No respiratory distress, CTA bilaterally Extremities - no calf tenderness bilaterally, no swelling Skin - Warm/Dry. Left heel with fresh gauze bandage. No purulent drainage, foul odor, or surrounding erythema noted Neurological - Alert & oriented x3 Psychological - Appropriate affect Objective Data Active Medications Acetaminophen (Acetaminophen 325 Mg Tablet) 650 mg PO Q6H PRN PRN Reason: Pain, Mild (Pain Scale 1-3) Amiodarone HCl (Amiodarone Hcl 200 Mg Tablet) 200 mg PO DAILY [facility] Last Admin: 03/23/23 08:43 Dose: 200 mg Documented By: FERNANDEZ Amlodipine Besylate (Amlodipine Besylate 10 Mg Tablet) 10 mg PO BEDTIME [facility]; Protocol Last Admin: 03/22/23 22:15 Dose: 10 mg Documented By: JOCELINE Ascorbic Acid (Ascorbic Acid 500 Mg Tablet) 500 mg PO BEDTIME [facility] Last Admin: 03/22/23 22:15 Dose: 500 mg Documented By: JOCEILNE Aspirin (Aspirin Enteric Coated 81 Mg Tablet.) 81 mg PO BEDTIME [facility] Last Admin: 03/22/23 22:15 Dose: 81 mg Documented By: JOCELINE Atorvastatin Calcium (Atorvastatin Calcium 80 Mg Tablet) 80 mg PO BEDTIME [facility] Last Admin: 03/22/23 22:15 Dose: 80 mg Documented By: JOCELINE Brimonidine Tartrate (Brimonidine Tartrate 0.2% Oph 5 Ml Bottle) 1 drop EYE- BOTH BID [facility] Last Admin: 03/22/23 22:16 Dose: 1 drop Documented By: JOCELINE Collagenase (Collagenase Clostridium Hist. 30 Gm Tube) 1 appl TOPICAL DAILY [facility]; Protocol Dextrose (Dextrose 50 % 25 Gm/50 Ml Syringe) 25 gm IVPUSH Q15M PRN; Protocol PRN Reason: per Hypoglycemia Standing Ord. Docusate Sodium (Docusate Sodium 100 Mg Capsule) 200 mg PO DAILY [facility] Last Admin: 03/23/23 08:43 Dose: 200 mg Documented By: FERNANDEZ Dorzolamide/Timolol (Dorzolamide/Timolo 2.23%/0.68% 10 Ml Drbtl) 1 drop EYE- BOTH BID [facility] Last Admin: 03/22/23 22:16 Dose: 1 drop Documented By: JOCELINE Furosemide (Furosemide 40 Mg Tablet) 40 mg PO DAILY [facility]; Protocol Last Admin: 03/23/23 08:43 Dose: 40 mg Documented By: FERNANDEZ Gabapentin (Gabapentin 300 Mg Capsule) 300 mg PO BEDTIME [facility] Last Admin: 03/22/23 22:16 Dose: 300 mg Documented By: JOCELINE Glucose (Glucose Gel 15 Gm Gel..Gram.) 15 gm PO Q15M PRN; Protocol PRN Reason: per Hypoglycemia Standing Ord. Guaifenesin (Guaifenesin 200 Mg/10 Ml 10 Ml Liquid) 10 ml PO Q6H PRN PRN Reason: Cough Heparin Sodium (Porcine) (Heparin Sodium,Porcine 5,000 Unit/Ml Vial) 5,000 unit SUBCUT Q12H [facility] Last Admin: 03/23/23 04:30 Dose: 5,000 unit Documented By: JOCELINE Vancomycin HCl 1,000 mg/ (Sodium Chloride) 270 mls @ 270 mls/hr IV Q24H [facility] Piperacillin Sod/Tazobactam (Sod 2.25 gm/ Sodium Chloride) 50 mls @ 100 mls/hr IV Q6H [facility] Last Admin: 03/23/23 08:42 Dose: 100 mls/hr Documented By: FERNANDEZ Insulin Human Lispro (Insulin Lispro 100 Unit/Ml 3 Ml Vial) 0 unit SUBCUT QIDACHS [facility]; Protocol Last Admin: 03/23/23 08:43 Dose: 2 unit Documented By: FERNANDEZ Isosorbide Mononitrate (Isosorbide Mononitrate 30 Mg Tab.Er.24h) 30 mg PO DAILY [facility]; Protocol Last Admin: 03/23/23 08:43 Dose: 30 mg Documented By: FERNANDEZ Multivitamins/Vitamin C (Multivitamin Tablet) 1 tab PO BEDTIME [facility] Last Admin: 03/22/23 22:16 Dose: 1 tab Documented By: JOCELINE Nicotine (Nicotine 14 Mg Patch.Td24) 14 mg TRANSDERMA DAILY [facility] Last Admin: 03/23/23 08:44 Dose: 14 mg Documented By: FERNANDEZ Non-Formulary Medication (Insulin Degludec) 10 unit SUBCUT BEDTIME [facility] Last Admin: 03/22/23 22:16 Dose: Not Given Documented By: JOCELINE Non-Admin Reason: Med Not Available Ondansetron HCl (Ondansetron Hcl 4 Mg/2 Ml Vial) 4 mg IVPUSH Q8H PRN PRN Reason: Nausea and Vomiting Pharmacy Consult (Consult Rx Vancomycin Dosing) 1 each MISCELLANE DAILY PRN PRN Reason: Consult order Senna (Sennosides 8.6 Mg Tablet) 17.2 mg PO BEDTIME PRN PRN Reason: Constipation Senna/Docusate Sodium (Sennosides/Docusate Sodium Tablet) 2 tab PO BEDTIME [facility] Last Admin: 03/22/23 22:15 Dose: 2 tab Documented By: JOCELINE Sodium Chloride (0.9 % Sodium Chloride Flush 3 Ml Syringe) 3 ml IVFLUSH QSHIFT [facility] Last Admin: 03/23/23 08:44 Dose: 3 ml Documented By: FERNANDEZ Vitamin D (Cholecalciferol (Vitamin D3) 25 Mcg Tablet) 25 mcg PO BEDTIME [facility] Last Admin: 03/22/23 22:16 Dose: 25 mcg Documented By: JOCELINE Labs 03/23/23 06:45 03/23/23 06:45 Labs: Laboratory Results - last 24 hr 03/22/23 03/22/23 03/22/23 08:59 10:00 10:34 MCV 92.6 MCH 31.0 MCHC 33.4 RDW 13.5 Plt Count 213 D MPV 10.2 Immature Gran % (Auto) 0.3 Neut % (Auto) 74.8 H Lymph % (Auto) 14.0 L [place] % (Auto) 7.3 Eos % (Auto) 3.0 Baso % (Auto) 0.6 Lymph # (Auto) 2.1 [place] # (Auto) 1.1 Eos # (Auto) 0.5 H Baso # (Auto) 0.1 Abs Immat Gran (auto) 0.05 H Absolute Neuts (auto) 11.4 H Absolute Nucleated RBC 0.000 Nucleated RBC % (auto) 0.0 ESR Anion Gap 16 Estim Creat Clear Calc 36.8 Estimated GFR 39 POC Glucose Random Glucose 273 H Lactic Acid 3.0 H* Lactic Acid F/U @ 2Hr Calcium 9.4 Total Bilirubin 0.4 Direct Bilirubin 0.2 AST 28 ALT 48 H Alkaline Phosphatase 109 C-Reactive Protein 0.79 H B-Natriuretic Peptide 185 H Total Protein 7.6 Albumin 3.8 Lipase 30 Procalcitonin 0.05 Urine Color Yellow Urine Appearance Clear Urine pH 5.5 Ur Specific [place] 1.010 Urine Protein 100 (2+) H Urine Glucose (UA) Negative Urine Ketones Negative Urine Blood Negative Urine Nitrite Negative Ur Leukocyte Esterase Negative Urine RBC 0-2 Urine WBC 0-5 Ur Squamous Epith Cells 0-2 Urine Bacteria None Seen Hyaline Casts 3-5 Influenza Type A (PCR) NEGATIVE Influenza Type B (PCR) NEGATIVE RSV RNA Qual (PCR) NEGATIVE SARS-CoV-2 RNA (RT-PCR) NEGATIVE 03/22/23 03/22/23 03/22/23 11:34 15:14 18:44 MCV MCH MCHC RDW Plt Count MPV Immature Gran % (Auto) Neut % (Auto) Lymph % (Auto) [place] % (Auto) Eos % (Auto) Baso % (Auto) Lymph # (Auto) [place] # (Auto) Eos # (Auto) Baso # (Auto) Abs Immat Gran (auto) Absolute Neuts (auto) Absolute Nucleated RBC Nucleated RBC % (auto) ESR 80 H Anion Gap Estim Creat Clear Calc Estimated GFR POC Glucose 198 H Random Glucose Lactic Acid Lactic Acid F/U @ 2Hr 1.9 Calcium Total Bilirubin Direct Bilirubin AST ALT Alkaline Phosphatase C-Reactive Protein B-Natriuretic Peptide Total Protein Albumin Lipase Procalcitonin Urine Color Urine Appearance Urine pH Ur Specific [place] Urine Protein Urine Glucose (UA) Urine Ketones Urine Blood Urine Nitrite Ur Leukocyte Esterase Urine RBC Urine WBC Ur Squamous Epith Cells Urine Bacteria Hyaline Casts Influenza Type A (PCR) Influenza Type B (PCR) RSV RNA Qual (PCR) SARS-CoV-2 RNA (RT-PCR) 03/22/23 03/23/23 03/23/23 20:17 06:45 08:08 MCV 94.0 MCH 31.6 MCHC 33.7 RDW 13.8 Plt Count 204 MPV 10.6 Immature Gran % (Auto) 0.3 Neut % (Auto) 60.0 Lymph % (Auto) 27.5 [place] % (Auto) 7.5 Eos % (Auto) 4.0 Baso % (Auto) 0.7 Lymph # (Auto) 3.1 [place] # (Auto) 0.8 Eos # (Auto) 0.5 H Baso # (Auto) 0.1 Abs Immat Gran (auto) 0.03 Absolute Neuts (auto) 6.7 Absolute Nucleated RBC 0.000 Nucleated RBC % (auto) 0.0 ESR Anion Gap 15 Estim Creat Clear Calc 46.4 Estimated GFR 51 POC Glucose 209 H 177 H Random Glucose 184 H Lactic Acid Lactic Acid F/U @ 2Hr Calcium 9.2 Total Bilirubin Direct Bilirubin AST ALT Alkaline Phosphatase C-Reactive Protein B-Natriuretic Peptide Total Protein Albumin Lipase Procalcitonin Urine Color Urine Appearance Urine pH Ur Specific [place] Urine Protein Urine Glucose (UA) Urine Ketones Urine Blood Urine Nitrite Ur Leukocyte Esterase Urine RBC Urine WBC Ur Squamous Epith Cells Urine Bacteria Hyaline Casts Influenza Type A (PCR) Influenza Type B (PCR) RSV RNA Qual (PCR) SARS-CoV-2 RNA (RT-PCR) Assessment and Plan (1) PAD (peripheral artery disease): Status: Acute (2) Severe sepsis: Status: Acute (3) Unstageable pressure ulcer of heel: Status: Acute Plan 69-year-old male with history of GERD, peripheral vascular disease, hyperlipidemia, insulin-dependent type 2 diabetes, diabetic polyneuropathy, diabetic retinopathy, CKD stage 3, CAD with history NSTEMI, heart failure preserved ejection fraction, history endocarditis, cardiomyopathy admitted for infected unstageable pressure ulcer R heel with severe sepsis. #Infected Unstageable pressure ulcer right heel with severe sepsis -Severe sepsis resolved -CRP 0.79, ESR 80. MRI R foot w/wo contrast this am to r/o osteomyelitis but unable to tolerate due to pain despite meds. Reattempt MRI friday -Arterial duplex shows elevated velocities in the common femoral artery and proximal superficial femoral artery with monophasic waveforms suggestive of least moderate peripheral vascular disease worsened from priors -vascular surgery input appreciated-will likely undergo endovascular intervention in the early part of this week -Dressing changes per wound RN last admission ordered. Updated wound care consult placed -No debridement at this time per general surgery surgery -IV vancomycin and Zosyn ( initiated 03/22) -follow CBC, cultures. Trend CRP/ESR if indicated #R hip pain- h/o R hip fracture s/p Right hip IMN 12/10 -continues with pain with movement of joint/extremity -seen by ortho 01/30 advised that his discomfort is part of routine part of healing. Recommended follow up in 6 weeks with repeat imaging, sooner if needed -PT eval. Consider ortho consult if indicated # insulin-dependent type 2 diabetes- with hyperglycemia - uncontrolled last hemoglobin A1c 9.2, goal <8.0% given pt age - dose adjusted basal insulin - Humalog on sliding scale - diabetic diet, POC glucose #Frequenct PVCs -continue amiodorone (initiated last admission due to bradycardia/PVCs) # diabetic polyneuropathy - continue gabapentin # diabetic retinopathy, unspecified - continue eyedrops # CAD/ HLD/cardiomyopathy - continue ASA isosorbide, statin # heart failure preserved ejection fraction - clinically euvolemic on exam - continue p.o. furosemide # hypertension -blood pressures improving but were soft -resume antihypertensives a.m. # PVD - continue ASA - check arterial duplex right lower extremity as above # CKD stage 3 - renal function baseline # anemia of chronic disease - H/ H above transfusion threshold, stable DVT prophylaxis-heparin resuscitation okay but do not intubate patient requires ongoing inpt stay for further management of infected unstageable ulcer with probable osteomyelitis requiring IV antibiotics and will likely require prolonged period of antibiotic therapy awaiting negative blood cultures. Will also likely be undergoing endovascular intervention due to PAD which is likely contributing to nonhealing ulcer during hospital stay to promote wound healing Quality Stroke Does the patient have a stroke diagnosis?: No VTE Prior VTE?: No VTE Risk Level:: Medical - moderate - high VTE Device Contraindication: Treatment Not Indicated VTE Drug Contraindication: N/A - Med Ordered
[2023-03-23] MEDS: Collagenase Clostridium Hist. 30 GM TUBE 1 APPL TOPICAL (08:57)
[2023-03-23] MEDS: Dorzolamide/Timolo 2.23%/0.68% 10 ML DRBTL 1 DROP EYE-BOTH ×2 (08:57→21:50)
[2023-03-23] MEDS: Brimonidine Tartrate 0.2% Oph 5 ML BOTTLE 1 DROP EYE-BOTH ×2 (08:57→21:50)
--- NOTE | 2023-03-23 10:53 | MHC.CM.PN ---
IMM DELIVERED. PATIENT IS FROM HOME W/ AND YOUNG GRANDCHILDREN. AMBULATES W/ A WALKER, ASSISTS W/ ADLS. ACTIVE W/ [facility] FOR SN/PT/OT. WOUND TO R HEEL MANAGED BY [facility] PER PATIENT. PCP: AAYUSH GUILLERMO MD HCP: CAROL ANN, COPY ON FILE DP: GOAL IS HOME RESUME SERVICES, DTR TO TRANSPORT. HAS BEEN TO [facility] IN THE PAST, PREFERS HOME. CM WILL CONTINUE TO FOLLOW.
[2023-03-23] MEDS: vancomycin HCL 1,000 MG in 0.9 % Sodium Chloride 250 ML 270 MG IV (10:54)
[2023-03-23 11:12] LABS: Glucose, Whole Blood 201 mg/dL (60-115)
--- NOTE | 2023-03-23 11:45 | PM.PNGS ---
Subjective Subjective Date of Service: 03/23/23 Interval history: No new right heel symptoms. Complaining more of right hip pain Physical Exam Vital Signs: Vital Signs: Last Vital Signs Temp 98.9 F 03/23/23 08:00 Pulse 72 03/23/23 08:00 Resp 20 03/23/23 08:00 BP 142/58 H 03/23/23 08:00 Pulse Ox 92 03/23/23 08:00 O2 Del Method Room Air 03/23/23 08:00 BMI result Body Mass Index 30.7 Extrem: Other: Small heel pressure ulcer status quo. No evidence of cellulitis or abscess. Objective Data Active Medications Acetaminophen (Acetaminophen 325 Mg Tablet) 650 mg PO Q6H PRN PRN Reason: Pain, Mild (Pain Scale 1-3) Amiodarone HCl (Amiodarone Hcl 200 Mg Tablet) 200 mg PO DAILY [facility] Last Admin: 03/23/23 08:43 Dose: 200 mg Documented By: FERNANDEZ Amlodipine Besylate (Amlodipine Besylate 10 Mg Tablet) 10 mg PO BEDTIME [facility]; Protocol Last Admin: 03/22/23 22:15 Dose: 10 mg Documented By: JOCELINE Ascorbic Acid (Ascorbic Acid 500 Mg Tablet) 500 mg PO BEDTIME [facility] Last Admin: 03/22/23 22:15 Dose: 500 mg Documented By: JOCELINE Aspirin (Aspirin Enteric Coated 81 Mg Tablet.) 81 mg PO BEDTIME [facility] Last Admin: 03/22/23 22:15 Dose: 81 mg Documented By: JOCELINE Atorvastatin Calcium (Atorvastatin Calcium 80 Mg Tablet) 80 mg PO BEDTIME [facility] Last Admin: 03/22/23 22:15 Dose: 80 mg Documented By: JOCELINE Brimonidine Tartrate (Brimonidine Tartrate 0.2% Oph 5 Ml Bottle) 1 drop EYE-BOTH BID [facility] Last Admin: 03/23/23 08:57 Dose: 1 drop Documented By: FERNANDEZ Collagenase (Collagenase Clostridium Hist. 30 Gm Tube) 1 appl TOPICAL DAILY [facility]; Protocol Last Admin: 03/23/23 08:57 Dose: 1 appl Documented By: FERNANDEZ Dextrose (Dextrose 50 % 25 Gm/50 Ml Syringe) 25 gm IVPUSH Q15M PRN; Protocol PRN Reason: per Hypoglycemia Standing Ord. Docusate Sodium (Docusate Sodium 100 Mg Capsule) 200 mg PO DAILY [facility] Last Admin: 03/23/23 08:43 Dose: 200 mg Documented By: FERNANDEZ Dorzolamide/Timolol (Dorzolamide/Timolo 2.23%/0.68% 10 Ml Drbtl) 1 drop EYE-BOTH BID [facility] Last Admin: 03/23/23 08:57 Dose: 1 drop Documented By: FERNANDEZ Furosemide (Furosemide 40 Mg Tablet) 40 mg PO DAILY [facility]; Protocol Last Admin: 03/23/23 08:43 Dose: 40 mg Documented By: FERNANDEZ Gabapentin (Gabapentin 300 Mg Capsule) 300 mg PO BEDTIME [facility] Last Admin: 03/22/23 22:16 Dose: 300 mg Documented By: JOCELINE Glucose (Glucose Gel 15 Gm Gel..Gram.) 15 gm PO Q15M PRN; Protocol PRN Reason: per Hypoglycemia Standing Ord. Guaifenesin (Guaifenesin 200 Mg/10 Ml 10 Ml Liquid) 10 ml PO Q6H PRN PRN Reason: Cough Heparin Sodium (Porcine) (Heparin Sodium,Porcine 5,000 Unit/Ml Vial) 5,000 unit SUBCUT Q12H [facility] Last Admin: 03/23/23 04:30 Dose: 5,000 unit Documented By: JOCELINE Vancomycin HCl 1,000 mg/ (Sodium Chloride) 270 mls @ 270 mls/hr IV Q24H [facility] Last Admin: 03/23/23 10:54 Dose: 270 mls/hr Documented By: FERNANDEZ Piperacillin Sod/Tazobactam (Sod 3.375 gm/ Sodium Chloride) 50 mls @ 100 mls/hr IV Q6H [facility] Last Admin: 03/23/23 08:59 Dose: Not Given Documented By: FERNANDEZ Non-Admin Reason: Already just gave 2.25gm IV at 0842 Insulin Human Lispro (Insulin Lispro 100 Unit/Ml 3 Ml Vial) 0 unit SUBCUT QIDACHS [facility]; Protocol Last Admin: 03/23/23 08:43 Dose: 2 unit Documented By: FERNANDEZ Isosorbide Mononitrate (Isosorbide Mononitrate 30 Mg Tab.Er.24h) 30 mg PO DAILY [facility]; Protocol Last Admin: 03/23/23 08:43 Dose: 30 mg Documented By: FERNANDEZ Multivitamins/Vitamin C (Multivitamin Tablet) 1 tab PO BEDTIME [facility] Last Admin: 03/22/23 22:16 Dose: 1 tab Documented By: JOCELINE Nicotine (Nicotine 14 Mg Patch.Td24) 14 mg TRANSDERMA DAILY [facility] Last Admin: 03/23/23 08:44 Dose: 14 mg Documented By: FERNANDEZ Non-Formulary Medication (Insulin Degludec) 10 unit SUBCUT BEDTIME [facility] Last Admin: 03/22/23 22:16 Dose: Not Given Documented By: JOCELINE Non-Admin Reason: Med Not Available Ondansetron HCl (Ondansetron Hcl 4 Mg/2 Ml Vial) 4 mg IVPUSH Q8H PRN PRN Reason: Nausea and Vomiting Pharmacy Consult (Consult Rx Vancomycin Dosing) 1 each MISCELLANE DAILY PRN PRN Reason: Consult order Senna (Sennosides 8.6 Mg Tablet) 17.2 mg PO BEDTIME PRN PRN Reason: Constipation Senna/Docusate Sodium (Sennosides/Docusate Sodium Tablet) 2 tab PO BEDTIME [facility] Last Admin: 03/22/23 22:15 Dose: 2 tab Documented By: JOCELINE Sodium Chloride (0.9 % Sodium Chloride Flush 3 Ml Syringe) 3 ml IVFLUSH QSHIFT [facility] Last Admin: 03/23/23 08:44 Dose: 3 ml Documented By: FERNANDEZ Vitamin D (Cholecalciferol (Vitamin D3) 25 Mcg Tablet) 25 mcg PO BEDTIME [facility] Last Admin: 03/22/23 22:16 Dose: 25 mcg Documented By: JOCELINE Labs 03/23/23 06:45 03/23/23 06:45 Labs: Laboratory Results - last 24 hr 03/22/23 03/22/23 03/22/23 08:59 11:34 15:14 MCV MCH MCHC RDW Plt Count MPV Immature Gran % (Auto) Neut % (Auto) Lymph % (Auto) [place] % (Auto) Eos % (Auto) Baso % (Auto) Lymph # (Auto) [place] # (Auto) Eos # (Auto) Baso # (Auto) Abs Immat Gran (auto) Absolute Neuts (auto) Absolute Nucleated RBC Nucleated RBC % (auto) ESR 80 H Anion Gap Estim Creat Clear Calc Estimated GFR POC Glucose Random Glucose Lactic Acid F/U @ 2Hr 1.9 Calcium C-Reactive Protein 0.79 H Procalcitonin 0.05 03/22/23 03/22/23 03/23/23 18:44 20:17 06:45 MCV 94.0 MCH 31.6 MCHC 33.7 RDW 13.8 Plt Count 204 MPV 10.6 Immature Gran % (Auto) 0.3 Neut % (Auto) 60.0 Lymph % (Auto) 27.5 [place] % (Auto) 7.5 Eos % (Auto) 4.0 Baso % (Auto) 0.7 Lymph # (Auto) 3.1 [place] # (Auto) 0.8 Eos # (Auto) 0.5 H Baso # (Auto) 0.1 Abs Immat Gran (auto) 0.03 Absolute Neuts (auto) 6.7 Absolute Nucleated RBC 0.000 Nucleated RBC % (auto) 0.0 ESR Anion Gap 15 Estim Creat Clear Calc 46.4 Estimated GFR 51 POC Glucose 198 H 209 H Random Glucose 184 H Lactic Acid F/U @ 2Hr Calcium 9.2 C-Reactive Protein Procalcitonin 03/23/23 03/23/23 08:08 11:07 MCV MCH MCHC RDW Plt Count MPV Immature Gran % (Auto) Neut % (Auto) Lymph % (Auto) [place] % (Auto) Eos % (Auto) Baso % (Auto) Lymph # (Auto) [place] # (Auto) Eos # (Auto) Baso # (Auto) Abs Immat Gran (auto) Absolute Neuts (auto) Absolute Nucleated RBC Nucleated RBC % (auto) ESR Anion Gap Estim Creat Clear Calc Estimated GFR POC Glucose 177 H 201 H Random Glucose Lactic Acid F/U @ 2Hr Calcium C-Reactive Protein Procalcitonin Microbiology Microbiology Results: Microbiology 03/22/23 08:59 Blood Culture - Preliminary Blood - Venous No growth after 24 hours. 03/22/23 08:59 Blood Culture - Preliminary Blood - Venous No growth after 24 hours. Procedures Date of Service Date of Service: 03/23/23 Progress Note: A&P Assessment and plan (1) Open wound of heel: Status: Acute Plan Continue local therapy; elevation, heel protection, dressing changes. Patient states he is scheduled for an MRI to rule osteomyelitis. Time Spent With Patient Time: Total time managing care of this patient today ____ minutes. Quality Stroke Does the patient have a stroke diagnosis?: No VTE Prior VTE?: No VTE Risk Level:: Medical - moderate - high VTE Device Contraindication: Treatment Not Indicated VTE Drug Contraindication: N/A - Med Ordered
[2023-03-23 12:05] VITALS: RESP 18
[2023-03-23] MEDS: Morphine Sulfate 4 MG/ML CARTRIDGE IVPUSH (12:05)
[2023-03-23 12:35] VITALS: RESP 18
[2023-03-23] MEDS: Piperacillin Sodium/Tazobactam 3.375 GM in 0.9 % Sodium Chloride 50 ML IV ×2 (14:49→21:49)
[2023-03-23 15:41] VITALS: BP 143/56; PULSE 71; RESP 16; TEMP 36.9; O2SAT 96
[2023-03-23 16:29] LABS: Glucose, Whole Blood 229 mg/dL (60-115)
[2023-03-23 20:00] VITALS: BP 167/60; PULSE 70; RESP 20; TEMP 37.2; O2SAT 95
[2023-03-23 20:12] LABS: Glucose, Whole Blood 175 mg/dL (60-115)
[2023-03-23] MEDS: Ascorbic Acid 500 MG TABLET PO (21:51)
[2023-03-23] MEDS: Aspirin Enteric Coated 81 MG TABLET.DR PO (21:51)
[2023-03-23] MEDS: Multivitamin TABLET 1 TAB PO (21:51)
[2023-03-23] MEDS: Cholecalciferol (Vitamin D3) 25 MCG TABLET PO (21:51)
[2023-03-23] MEDS: Atorvastatin Calcium 80 MG TABLET PO (21:51)
[2023-03-23] MEDS: amLODIPine Besylate 10 MG TABLET PO (21:51)
[2023-03-23] MEDS: Gabapentin 300 MG CAPSULE PO (21:51)
[2023-03-23] MEDS: Sennosides/Docusate Sodium TABLET 2 TAB PO (21:52)
[2023-03-24] VITALS (8 sets, daily range): BP systolic 118–150; BP diastolic 55–64; PULSE 60–82; RESP 17–20; TEMP 36.1–37.1; O2SAT 92–98; BMI 30.7
[2023-03-24] MEDS: 0.9 % Sodium Chloride Flush 3 ML SYRINGE IVFLUSH ×4 (00:27→20:37)
[2023-03-24] MEDS: Piperacillin Sodium/Tazobactam 3.375 GM in 0.9 % Sodium Chloride 50 ML IV ×4 (03:26→20:38)
[2023-03-24] MEDS: Heparin Sodium,Porcine 5,000 UNIT/ML VIAL 5000 UNIT SUBCUT ×2 (03:26→17:17)
[2023-03-24 07:36] LABS: Glucose, Whole Blood 163 mg/dL (60-115)
[2023-03-24 07:37] LABS: Creatinine Clr Calc Pharmacy 39.1; Estimated Glomerular Filt Rate 42
[2023-03-24] MEDS: Amiodarone HCL 200 MG TABLET PO (08:30)
[2023-03-24] MEDS: Docusate Sodium 100 MG CAPSULE 200 MG PO (08:30)
[2023-03-24] MEDS: Insulin Lispro 100 UNIT/ML 3 ML VIAL SUBCUT ×4 (08:30→20:47)
[2023-03-24] MEDS: Collagenase Clostridium Hist. 30 GM TUBE 1 APPL TOPICAL (08:31)
[2023-03-24] MEDS: Brimonidine Tartrate 0.2% Oph 5 ML BOTTLE 1 DROP EYE-BOTH ×2 (08:31→20:36)
[2023-03-24] MEDS: Furosemide 40 MG TABLET PO (08:31)
[2023-03-24] MEDS: Dorzolamide/Timolo 2.23%/0.68% 10 ML DRBTL 1 DROP EYE-BOTH ×2 (08:31→20:36)
[2023-03-24] MEDS: Isosorbide Mononitrate 30 MG TAB.ER.24H PO (08:31)
[2023-03-24] MEDS: Nicotine 14 MG PATCH.TD24 TRANSDERMA (08:32)
[2023-03-24 09:44] LABS: Vancomycin Random 13.5 mcg/mL (15-20)
[2023-03-24 11:44] LABS: Glucose, Whole Blood 208 mg/dL (60-115)
[2023-03-24] MEDS: vancomycin HCL 1,000 MG in 0.9 % Sodium Chloride 250 ML 270 MG IV (11:51)
--- NOTE | 2023-03-24 13:51 | MHC.CLN ---
NUTRITION DIET=DIABETIC 2000 KCALS, 2 GRAM SODIUM. UNSTAGEABLE PRESSURE AREA TO RIGHT HEEL. ADDING ENSURE MAX PROTEIN BID TO PROMOTE WOUND HEALING. PROVIDES 300 KCALS, 60 G PROTEIN. FOLLOW FOR INTAKE AND WOUND HEALING.
--- NOTE | 2023-03-24 14:30 | P.PNIM_ITS ---
Subjective Subjective Date of Service: 03/24/23 Interval History: f/u infected pressure ulcer of right heel has pain in the hip, not new Physical Exam 2 Vital Signs: Vital Signs: Last Vital Signs Temp 98.1 F 03/24/23 11:35 Pulse 82 03/24/23 11:35 Resp 18 03/24/23 11:35 BP 118/55 L 03/24/23 11:35 Pulse Ox 93 03/24/23 11:35 O2 Del Method Room Air 03/24/23 11:35 BMI result Body Mass Index 30.7 Objective Data Active Medications Acetaminophen (Acetaminophen 325 Mg Tablet) 650 mg PO Q6H PRN PRN Reason: Pain, Mild (Pain Scale 1-3) Amiodarone HCl (Amiodarone Hcl 200 Mg Tablet) 200 mg PO DAILY [facility] Last Admin: 03/24/23 08:30 Dose: 200 mg Documented By: FERNANDEZ Amlodipine Besylate (Amlodipine Besylate 10 Mg Tablet) 10 mg PO BEDTIME [facility]; Protocol Last Admin: 03/23/23 21:51 Dose: 10 mg Documented By: KEANU Ascorbic Acid (Ascorbic Acid 500 Mg Tablet) 500 mg PO BEDTIME [facility] Last Admin: 03/23/23 21:51 Dose: 500 mg Documented By: KEANU Aspirin (Aspirin Enteric Coated 81 Mg Tablet.) 81 mg PO BEDTIME [facility] Last Admin: 03/23/23 21:51 Dose: 81 mg Documented By: KEANU Atorvastatin Calcium (Atorvastatin Calcium 80 Mg Tablet) 80 mg PO BEDTIME [facility] Last Admin: 03/23/23 21:51 Dose: 80 mg Documented By: KEANU Brimonidine Tartrate (Brimonidine Tartrate 0.2% Oph 5 Ml Bottle) 1 drop EYE- BOTH BID [facility] Last Admin: 03/24/23 08:31 Dose: 1 drop Documented By: FERNANDEZ Collagenase (Collagenase Clostridium Hist. 30 Gm Tube) 1 appl TOPICAL DAILY [facility]; Protocol Last Admin: 03/24/23 08:31 Dose: 1 appl Documented By: FERNANDEZ Dextrose (Dextrose 50 % 25 Gm/50 Ml Syringe) 25 gm IVPUSH Q15M PRN; Protocol PRN Reason: per Hypoglycemia Standing Ord. Docusate Sodium (Docusate Sodium 100 Mg Capsule) 200 mg PO DAILY [facility] Last Admin: 03/24/23 08:30 Dose: 200 mg Documented By: FERNANDEZ Dorzolamide/Timolol (Dorzolamide/Timolo 2.23%/0.68% 10 Ml Drbtl) 1 drop EYE- BOTH BID [facility] Last Admin: 03/24/23 08:31 Dose: 1 drop Documented By: FERNANDEZ Furosemide (Furosemide 40 Mg Tablet) 40 mg PO DAILY [facility]; Protocol Last Admin: 03/24/23 08:31 Dose: 40 mg Documented By: FERNANDEZ Gabapentin (Gabapentin 300 Mg Capsule) 300 mg PO BEDTIME [facility] Last Admin: 03/23/23 21:51 Dose: 300 mg Documented By: KEANU Glucose (Glucose Gel 15 Gm Gel..Gram.) 15 gm PO Q15M PRN; Protocol PRN Reason: per Hypoglycemia Standing Ord. Guaifenesin (Guaifenesin 200 Mg/10 Ml 10 Ml Liquid) 10 ml PO Q6H PRN PRN Reason: Cough Heparin Sodium (Porcine) (Heparin Sodium,Porcine 5,000 Unit/Ml Vial) 5,000 unit SUBCUT Q12H [facility] Last Admin: 03/24/23 03:26 Dose: 5,000 unit Documented By: SRIDHAR Vancomycin HCl 1,000 mg/ (Sodium Chloride) 270 mls @ 270 mls/hr IV Q24H [facility] Last Infusion: 03/24/23 12:51 Dose: Infused Documented By: FERNANDEZ Piperacillin Sod/Tazobactam (Sod 3.375 gm/ Sodium Chloride) 50 mls @ 100 mls/hr IV Q6H [facility] Last Admin: 03/24/23 14:04 Dose: 100 mls/hr Documented By: FERNANDEZ Insulin Human Lispro (Insulin Lispro 100 Unit/Ml 3 Ml Vial) 0 unit SUBCUT QIDACHS [facility]; Protocol Last Admin: 03/24/23 11:53 Dose: 4 unit Documented By: FERNANDEZ Isosorbide Mononitrate (Isosorbide Mononitrate 30 Mg Tab.Er.24h) 30 mg PO DAILY [facility]; Protocol Last Admin: 03/24/23 08:31 Dose: 30 mg Documented By: FERNANDEZ Multivitamins/Vitamin C (Multivitamin Tablet) 1 tab PO BEDTIME [facility] Last Admin: 03/23/23 21:51 Dose: 1 tab Documented By: KEANU Nicotine (Nicotine 14 Mg Patch.Td24) 14 mg TRANSDERMA DAILY [facility] Last Admin: 03/24/23 08:32 Dose: 14 mg Documented By: FERNANDEZ Non-Formulary Medication (Insulin Degludec) 10 unit SUBCUT BEDTIME [facility] Last Admin: 03/23/23 22:12 Dose: Not Given Documented By: KEANU Non-Admin Reason: Med Not Available Ondansetron HCl (Ondansetron Hcl 4 Mg/2 Ml Vial) 4 mg IVPUSH Q8H PRN PRN Reason: Nausea and Vomiting Pharmacy Consult (Consult Rx Vancomycin Dosing) 1 each MISCELLANE DAILY PRN PRN Reason: Consult order Senna (Sennosides 8.6 Mg Tablet) 17.2 mg PO BEDTIME PRN PRN Reason: Constipation Senna/Docusate Sodium (Sennosides/Docusate Sodium Tablet) 2 tab PO BEDTIME [facility] Last Admin: 03/23/23 21:52 Dose: 2 tab Documented By: KEANU Sodium Chloride (0.9 % Sodium Chloride Flush 3 Ml Syringe) 3 ml IVFLUSH QSHIFT [facility] Last Admin: 03/24/23 08:30 Dose: 3 ml Documented By: FERNANDEZ Vitamin D (Cholecalciferol (Vitamin D3) 25 Mcg Tablet) 25 mcg PO BEDTIME [facility] Last Admin: 03/23/23 21:51 Dose: 25 mcg Documented By: KEANU Labs 03/23/23 06:45 03/24/23 06:59 Labs: Laboratory Results - last 24 hr 03/23/23 03/23/23 03/24/23 16:26 20:06 06:59 Estim Creat Clear Calc 39.1 Estimated GFR 42 POC Glucose 229 H 175 H Random Vancomycin 03/24/23 03/24/23 03/24/23 07:29 09:04 11:24 Estim Creat Clear Calc Estimated GFR POC Glucose 163 H 208 H Random Vancomycin 13.5 L Microbiology Microbiology Results: Microbiology 03/22/23 08:59 Blood Culture - Preliminary Blood - Venous No growth after 48 hours. 03/22/23 08:59 Blood Culture - Preliminary Blood - Venous No growth after 48 hours. Assessment and Plan (1) PAD (peripheral artery disease): Status: Acute (2) Severe sepsis: Status: Acute (3) Unstageable pressure ulcer of heel: Status: Acute Plan 69-year-old male with history of GERD, peripheral vascular disease, hyperlipidemia, insulin-dependent type 2 diabetes, diabetic polyneuropathy, diabetic retinopathy, CKD stage 3, CAD with history NSTEMI, heart failure preserved ejection fraction, history endocarditis, cardiomyopathy admitted for infected unstageable pressure ulcer R heel with severe sepsis. #Infected Unstageable pressure ulcer right heel with severe sepsis, sepsis resolved. MRI limitted but no definitive OM. Will likely need vascular intervention, wound care consult. Continue Abx with Vanxo and Zosyn, follow cultures #R hip pain- h/o R hip fracture s/p Right hip IMN 12/10 -continues with pain with movement of joint/extremity -seen by ortho 01/30 advised that his discomfort is part of routine part of healing. Recommended follow up in 6 weeks with repeat imaging, sooner if needed -PT eval. xray of the hip # insulin-dependent type 2 diabetes- with hyperglycemia - uncontrolled last hemoglobin A1c 9.2, goal <8.0% given pt age - continue basal insulin - Humalog on sliding scale - diabetic diet, POC glucose #Frequenct PVCs -continue amiodorone (initiated last admission due to bradycardia/PVCs) # diabetic polyneuropathy - continue gabapentin # diabetic retinopathy, unspecified - continue eyedrops # CAD/ HLD/cardiomyopathy - continue ASA isosorbide, statin # heart failure preserved ejection fraction - clinically euvolemic on exam - continue p.o. furosemide # hypertension -blood pressures improving but were soft -resume antihypertensives a.m. # PVD - continue ASA - check arterial duplex right lower extremity as above # CKD stage 3 - renal function baseline # anemia of chronic disease - H/ H above transfusion threshold, stable DVT prophylaxis-heparin resuscitation okay but do not intubate patient requires ongoing inpt stay for further management of infected unstageable ulcer with probable osteomyelitis requiring IV antibiotics and will likely require prolonged period of antibiotic therapy awaiting negative blood cultures. Will also likely be undergoing endovascular intervention due to PAD which is likely contributing to nonhealing ulcer during hospital stay to promote wound healing Quality Stroke Does the patient have a stroke diagnosis?: No VTE Prior VTE?: No VTE Risk Level:: Medical - moderate - high VTE Device Contraindication: Treatment Not Indicated VTE Drug Contraindication: N/A - Med Ordered
[2023-03-24 16:18] LABS: Glucose, Whole Blood 163 mg/dL (60-115)
[2023-03-24] MEDS: Multivitamin TABLET 1 TAB PO (20:36)
[2023-03-24] MEDS: Gabapentin 300 MG CAPSULE PO (20:36)
[2023-03-24] MEDS: Ascorbic Acid 500 MG TABLET PO (20:36)
[2023-03-24] MEDS: Sennosides/Docusate Sodium TABLET 2 TAB PO (20:36)
[2023-03-24] MEDS: amLODIPine Besylate 10 MG TABLET PO (20:36)
[2023-03-24] MEDS: Cholecalciferol (Vitamin D3) 25 MCG TABLET PO (20:36)
[2023-03-24] MEDS: Atorvastatin Calcium 80 MG TABLET PO (20:36)
[2023-03-24] MEDS: Aspirin Enteric Coated 81 MG TABLET.DR PO (20:36)
[2023-03-24 20:44] LABS: Glucose, Whole Blood 153 mg/dL (60-115)
[2023-03-25] MEDS: Piperacillin Sodium/Tazobactam 3.375 GM in 0.9 % Sodium Chloride 50 ML IV ×4 (02:12→21:01)
[2023-03-25 03:18] VITALS: BP 143/66; PULSE 74; RESP 20; TEMP 37; O2SAT 94
[2023-03-25] MEDS: Heparin Sodium,Porcine 5,000 UNIT/ML VIAL 5000 UNIT SUBCUT ×2 (06:03→16:44)
[2023-03-25 07:44] VITALS: BP 139/45; PULSE 61; RESP 18; TEMP 36.8; O2SAT 92
[2023-03-25 07:44] LABS: Glucose, Whole Blood 153 mg/dL (60-115)
[2023-03-25 07:46] LABS: Anion Gap 16 (12-20); Blood Urea Nitrogen 27 mg/dL (9-16); Calcium 8.9 mg/dL (8.4-10.2); Carbon Dioxide 23 mmol/L (22-29); Chloride 108 mmol/L (96-108); Creatinine Clr Calc Pharmacy 41.4; Estimated Glomerular Filt Rate 45; Glucose Random 156 mg/dL (60-115); Potassium 3.8 mmol/L (3.3-5.1); Sodium 143 mmol/L (135-145)
[2023-03-25] MEDS: Insulin Lispro 100 UNIT/ML 3 ML VIAL SUBCUT ×4 (09:04→21:02)
[2023-03-25] MEDS: 0.9 % Sodium Chloride Flush 3 ML SYRINGE IVFLUSH ×3 (09:05→21:01)
[2023-03-25] MEDS: Furosemide 40 MG TABLET PO (09:05)
[2023-03-25] MEDS: Docusate Sodium 100 MG CAPSULE 200 MG PO (09:05)
[2023-03-25] MEDS: Nicotine 14 MG PATCH.TD24 TRANSDERMA (09:05)
[2023-03-25] MEDS: Isosorbide Mononitrate 30 MG TAB.ER.24H PO (09:06)
[2023-03-25] MEDS: Brimonidine Tartrate 0.2% Oph 5 ML BOTTLE 1 DROP EYE-BOTH ×2 (09:06→21:06)
[2023-03-25] MEDS: Amiodarone HCL 200 MG TABLET PO (09:06)
[2023-03-25] MEDS: Dorzolamide/Timolo 2.23%/0.68% 10 ML DRBTL 1 DROP EYE-BOTH ×2 (09:06→21:06)
[2023-03-25] MEDS: Collagenase Clostridium Hist. 30 GM TUBE 1 APPL TOPICAL (09:08)
[2023-03-25 11:29] LABS: Glucose, Whole Blood 212 mg/dL (60-115)
[2023-03-25 12:00] VITALS: BP 134/44; PULSE 62; RESP 20; TEMP 36.9; O2SAT 98
[2023-03-25] MEDS: vancomycin HCL 1,000 MG in 0.9 % Sodium Chloride 250 ML 270 MG IV (12:25)
--- NOTE | 2023-03-25 12:26 | HO.PM.IMPN ---
Subjective Subjective Date of Service: 03/25/23 Physical Exam Vital Signs: Vital Signs: Last Vital Signs Temp 98.4 F 03/25/23 12:00 Pulse 62 03/25/23 12:00 Resp 20 03/25/23 12:00 BP 134/44 L 03/25/23 12:00 Pulse Ox 98 03/25/23 12:00 O2 Del Method Room Air 03/25/23 12:00 BMI result Body Mass Index 30.7 Objective Data Active Medications Acetaminophen (Acetaminophen 325 Mg Tablet) 650 mg PO Q6H PRN PRN Reason: Pain, Mild (Pain Scale 1-3) Amiodarone HCl (Amiodarone Hcl 200 Mg Tablet) 200 mg PO DAILY [facility] Last Admin: 03/25/23 09:06 Dose: 200 mg Documented By: FERNANDEZ Amlodipine Besylate (Amlodipine Besylate 10 Mg Tablet) 10 mg PO BEDTIME [facility]; Protocol Last Admin: 03/24/23 20:36 Dose: 10 mg Documented By: COURTNEY Ascorbic Acid (Ascorbic Acid 500 Mg Tablet) 500 mg PO BEDTIME [facility] Last Admin: 03/24/23 20:36 Dose: 500 mg Documented By: COURTNEY Aspirin (Aspirin Enteric Coated 81 Mg Tablet.) 81 mg PO BEDTIME [facility] Last Admin: 03/24/23 20:36 Dose: 81 mg Documented By: COURTNEY Atorvastatin Calcium (Atorvastatin Calcium 80 Mg Tablet) 80 mg PO BEDTIME [facility] Last Admin: 03/24/23 20:36 Dose: 80 mg Documented By: COURTNEY Brimonidine Tartrate (Brimonidine Tartrate 0.2% Oph 5 Ml Bottle) 1 drop EYE-BOTH BID [facility] Last Admin: 03/25/23 09:06 Dose: 1 drop Documented By: FERNANDEZ Collagenase (Collagenase Clostridium Hist. 30 Gm Tube) 1 appl TOPICAL DAILY [facility]; Protocol Last Admin: 03/25/23 09:08 Dose: 1 appl Documented By: FERNANDEZ Dextrose (Dextrose 50 % 25 Gm/50 Ml Syringe) 25 gm IVPUSH Q15M PRN; Protocol PRN Reason: per Hypoglycemia Standing Ord. Docusate Sodium (Docusate Sodium 100 Mg Capsule) 200 mg PO DAILY [facility] Last Admin: 03/25/23 09:05 Dose: 200 mg Documented By: FERNANDEZ Dorzolamide/Timolol (Dorzolamide/Timolo 2.23%/0.68% 10 Ml Drbtl) 1 drop EYE-BOTH BID [facility] Last Admin: 03/25/23 09:06 Dose: 1 drop Documented By: FERNANDEZ Furosemide (Furosemide 40 Mg Tablet) 40 mg PO DAILY [facility]; Protocol Last Admin: 03/25/23 09:05 Dose: 40 mg Documented By: FERNANDEZ Gabapentin (Gabapentin 300 Mg Capsule) 300 mg PO BEDTIME [facility] Last Admin: 03/24/23 20:36 Dose: 300 mg Documented By: COURTNEY Glucose (Glucose Gel 15 Gm Gel..Gram.) 15 gm PO Q15M PRN; Protocol PRN Reason: per Hypoglycemia Standing Ord. Guaifenesin (Guaifenesin 200 Mg/10 Ml 10 Ml Liquid) 10 ml PO Q6H PRN PRN Reason: Cough Heparin Sodium (Porcine) (Heparin Sodium,Porcine 5,000 Unit/Ml Vial) 5,000 unit SUBCUT Q12H [facility] Last Admin: 03/25/23 06:03 Dose: 5,000 unit Documented By: COURTNEY Vancomycin HCl 1,000 mg/ (Sodium Chloride) 270 mls @ 270 mls/hr IV Q24H [facility] Last Admin: 03/25/23 12:25 Dose: 270 mls/hr Documented By: FERNANDEZ Piperacillin Sod/Tazobactam (Sod 3.375 gm/ Sodium Chloride) 50 mls @ 100 mls/hr IV Q6H [facility] Last Infusion: 03/25/23 09:34 Dose: Infused Documented By: FERNANDEZ Insulin Human Lispro (Insulin Lispro 100 Unit/Ml 3 Ml Vial) 0 unit SUBCUT QIDACHS [facility]; Protocol Last Admin: 03/25/23 12:25 Dose: 4 unit Documented By: FERNANDEZ Isosorbide Mononitrate (Isosorbide Mononitrate 30 Mg Tab.Er.24h) 30 mg PO DAILY [facility]; Protocol Last Admin: 03/25/23 09:06 Dose: 30 mg Documented By: FERNANDEZ Multivitamins/Vitamin C (Multivitamin Tablet) 1 tab PO BEDTIME [facility] Last Admin: 03/24/23 20:36 Dose: 1 tab Documented By: COURTNEY Nicotine (Nicotine 14 Mg Patch.Td24) 14 mg TRANSDERMA DAILY [facility] Last Admin: 03/25/23 09:05 Dose: 14 mg Documented By: FERNANDEZ Non-Formulary Medication (Insulin Degludec) 10 unit SUBCUT BEDTIME [facility] Last Admin: 03/24/23 20:39 Dose: Not Given Documented By: COURTNEY Non-Admin Reason: Med Not Available Ondansetron HCl (Ondansetron Hcl 4 Mg/2 Ml Vial) 4 mg IVPUSH Q8H PRN PRN Reason: Nausea and Vomiting Pharmacy Consult (Consult Rx Vancomycin Dosing) 1 each MISCELLANE DAILY PRN PRN Reason: Consult order Senna (Sennosides 8.6 Mg Tablet) 17.2 mg PO BEDTIME PRN PRN Reason: Constipation Senna/Docusate Sodium (Sennosides/Docusate Sodium Tablet) 2 tab PO BEDTIME [facility] Last Admin: 03/24/23 20:36 Dose: 2 tab Documented By: COURTNEY Sodium Chloride (0.9 % Sodium Chloride Flush 3 Ml Syringe) 3 ml IVFLUSH QSHIFT [facility] Last Admin: 03/25/23 09:05 Dose: 3 ml Documented By: FERNANDEZ Vitamin D (Cholecalciferol (Vitamin D3) 25 Mcg Tablet) 25 mcg PO BEDTIME [facility] Last Admin: 03/24/23 20:36 Dose: 25 mcg Documented By: COURTNEY Labs 03/23/23 06:45 03/25/23 07:12 Labs: Laboratory Results - last 24 hr 03/24/23 03/24/23 03/25/23 16:13 20:30 07:05 Hold Purple Top Anion Gap Estim Creat Clear Calc Estimated GFR POC Glucose 163 H 153 H 153 H Random Glucose Calcium 03/25/23 03/25/23 07:12 11:13 Hold Purple Top SEE NOTE Anion Gap 16 Estim Creat Clear Calc 41.4 Estimated GFR 45 POC Glucose 212 H Random Glucose 156 H Calcium 8.9 Microbiology Microbiology Results: Microbiology 03/22/23 08:59 Blood Culture - Preliminary Blood - Venous No growth after 48 hours. 03/22/23 08:59 Blood Culture - Preliminary Blood - Venous No growth after 48 hours. Assessment and Plan (1) PAD (peripheral artery disease): Status: Acute (2) Severe sepsis: Status: Acute (3) Unstageable pressure ulcer of heel: Status: Acute Plan 69-year-old male with history of GERD, peripheral vascular disease, hyperlipidemia, insulin-dependent type 2 diabetes, diabetic polyneuropathy, diabetic retinopathy, CKD stage 3, CAD with history NSTEMI, heart failure preserved ejection fraction, history endocarditis, cardiomyopathy admitted for infected unstageable pressure ulcer R heel with severe sepsis. #Infected Unstageable pressure ulcer right heel with severe sepsis, sepsis resolved. MRI limitted but no definitive OM. To have vascular ntervention, wound care consult. Continue Abx with Vancoo and Zosyn, follow cultures #R hip pain- h/o R hip fracture s/p Right hip IMN 12/10 -continues with pain with movement of joint/extremity -seen by ortho 01/30 advised that his discomfort is part of routine part of healing. Recommended follow up in 6 weeks with repeat imaging, sooner if needed -PT eval. xray of the hip show old fracture with repair # insulin-dependent type 2 diabetes- with hyperglycemia - uncontrolled last hemoglobin A1c 9.2, goal <8.0% given pt age - continue basal insulin - Humalog on sliding scale - diabetic diet, POC glucose #Frequenct PVCs -continue amiodorone (initiated last admission due to bradycardia/PVCs) # diabetic polyneuropathy - continue gabapentin # diabetic retinopathy, unspecified - continue eyedrops # CAD/ HLD/cardiomyopathy - continue ASA isosorbide, statin # heart failure preserved ejection fraction - clinically euvolemic on exam - continue p.o. furosemide # hypertension, continue Norvasc # PVD - continue ASA - check arterial duplex right lower extremity as above # CKD stage 3 - renal function baseline # anemia of chronic disease - H/ H above transfusion threshold, stable DVT prophylaxis-heparin resuscitation okay but do not intubate patient requires ongoing inpt stay for further management of infected unstageable ulcer with probable osteomyelitis requiring IV antibiotics and will likely require prolonged period of antibiotic therapy awaiting negative blood cultures. Will also likely be undergoing endovascular intervention due to PAD which is likely contributing to nonhealing ulcer during hospital stay to promote wound healing Quality Stroke Does the patient have a stroke diagnosis?: No VTE Prior VTE?: No VTE Risk Level:: Medical - moderate - high VTE Device Contraindication: Treatment Not Indicated VTE Drug Contraindication: N/A - Med Ordered
--- NOTE | 2023-03-25 12:47 | HO.WOUND ---
Wound Consult: Follow up 77yr old male admitted to [facility] on?03/22/23 14:40 See progress notes and H&P for detailed history. REcent admission and see by this medical writer for the right heel wound. Wound consult placed for Right Heel Pressure Injury Present on Admission. Pt reports and chart review supports pt visited outpt Wound Clinic - 1st and last visit 02/27/[address] Coffey and topical recommendation was made for Santyl. Outpt Wound Clinic notes report wound etiology as Diabetic Wound as Primary Etiology - Unstageable Pressure Injury. At time of discharge patient should continue follow up care with outpt Wound Clinic and Dr. Acosta whom he follows with outpatient. Right Heel Etiology: Diabetic Wound POA Measurements: 2cm x 2cm x 0.4cm Wound Bed: Adherent moist fibrinous yellow lozada slough central fluctuance noted to slough - depth appreciated to 0.4cm - scattered area of red pink moist tissue Drainage / Odor: Mild malodor noted - lozada yellow moist drainage noted on dressing. Edges: ? irregular and epibole Jr wound: Mild erythema - No Induration noted Pain: Pt reports significant pain and tenderness when assessed Goals of Treatment: ? Santyl for continued enzymatic debridement - Follow up outpt wound clinic at time of d/c and Dr. Acosta to continue to follow inpt and consider debridement of necrotic tissue Recommendations: 1. Turn and Reposition every 2 hours and as needed for patient comfort. 2. Off Load all bony prominences with use of pillows and heel boots if needed.? Apply Preventative foams where needed. ? 3. Monitor for incontinence and moisture control, use barrier creams when needed for prevention and treatment. 4. Provide adequate and supplemental nutrition. 5. Order low air loss mattress. Order Heel boot protector. 6. Maintain blood glucose levels per Providers orders. 7. Left Heel - Apply Foam dressing to protect from friction and aid in off loading pressure. Elevate off of bed surface with use of pilllow. 8. Right Heel - Elevate heel off of surface of bed Cleanse with normal saline, pat dry. ?Apply barrier wipe to the immediate jr wound, apply thick layer of Santyl to entire wound bed, cover with dry gauze, followed by ABD pad, gauze wrap. Change Daily. Re-consult wound care Nurse for wound deterioration or wound changes.
--- NOTE | 2023-03-25 12:54 | MHC.CM.PN ---
EMR reviewed and per MD rounds, pt is not medically cleared for D/C due to management of right heel infection and pending ID consultation. CM will continue to follow.
--- NOTE | 2023-03-25 13:13 | HO.VASCPN ---
Subjective Subjective Date of Service: 03/25/23 Patient reports: no new complaints and feels better Interval history: Very pleasant 77-year-old gentleman presents for follow-up evaluation regarding nonhealing right foot ulcer. He is well known to me for prior history of peripheral vascular disease. Reports no acute events over the last day or 2. He now presents for routine follow-up. Physical Exam Vital Signs: Vital Signs: Last Vital Signs Temp 98.4 F 03/25/23 12:00 Pulse 62 03/25/23 12:00 Resp 20 03/25/23 12:00 BP 134/44 L 03/25/23 12:00 Pulse Ox 98 03/25/23 12:00 O2 Del Method Room Air 03/25/23 12:00 BMI result Body Mass Index 30.7 Const: General: cooperative, healthy appearing and no acute distress Orientation/consciousness: oriented to person, oriented to place and oriented to time HEENT: Head: Yes normal to inspection Neck: Carotids: no bruits Chest: Chest palpation & inspection: normal inspection of the chest Resp: Effort & Inspection: normal respiratory effort and able to speak in complete sentences Auscultation: clear to auscultation bilaterally Cardio: Rate: regular rate Heart sounds: S1 normal heart sound present and S2 normal heart sound present GI: Inspection: Yes normal to inspection Skin: Other: Right heel ulcer General skin exam: no rashes or lesions noted Wounds: no wounds Neuro: General: oriented to person, oriented to place, oriented to time and CN's II-XI intact bilaterally Extrem: General: Yes normal to inspection, Yes full ROM and Yes no clubbing, cyanosis or edema Psych: Appearance: grossly normal and well kempt Speech and movement: Normal speech and movement present Affect: normal affect Progress Note: A&P Assessment and plan (1) PAD (peripheral artery disease): Status: Acute Assessment and Plan: Patient has a nonhealing right foot ulcer. I have discussed the pathophysiology of peripheral vascular disease with the patient. I have also discussed risk factor modification. I have reviewed the patient's arterial testing which reveals right common femoral and SFA disease. the patient would benefit from a right leg endovascular peripheral angiogram with possible angioplasty, stent, and/or atherectomy. This has been discussed in detail with the patient along with risks, benefits, and complications. This includes but is not limited to bleeding, infection, heart attack, need for emergent surgical repair, limb ischemia, blood vessel damage, bleeding, puncture, kidney injury, bruising, allergic reaction, and skin reaction. The patient demonstrates a clear understanding. We will schedule for the next appropriate time. Thank you for allowing us to assist in this patient's care. Time Spent With Patient Time: Total time managing care of this patient today ____ minutes. Procedures Date of Service Date of Service: 03/25/23 Quality Stroke Does the patient have a stroke diagnosis?: No VTE Prior VTE?: No VTE Risk Level:: Medical - moderate - high VTE Device Contraindication: Treatment Not Indicated VTE Drug Contraindication: N/A - Med Ordered
[2023-03-25 16:00] VITALS: BP 155/68; PULSE 74; RESP 18; TEMP 36.9; O2SAT 95
[2023-03-25 16:36] LABS: Glucose, Whole Blood 163 mg/dL (60-115)
[2023-03-25 20:00] VITALS: BP 148/64; PULSE 66; RESP 19; TEMP 36.7; O2SAT 100
[2023-03-25 20:22] LABS: Glucose, Whole Blood 200 mg/dL (60-115)
[2023-03-25] MEDS: Ascorbic Acid 500 MG TABLET PO (21:02)
[2023-03-25] MEDS: Gabapentin 300 MG CAPSULE PO (21:02)
[2023-03-25] MEDS: amLODIPine Besylate 10 MG TABLET PO (21:02)
[2023-03-25] MEDS: Atorvastatin Calcium 80 MG TABLET PO (21:02)
[2023-03-25] MEDS: Cholecalciferol (Vitamin D3) 25 MCG TABLET PO (21:02)
[2023-03-25] MEDS: Aspirin Enteric Coated 81 MG TABLET.DR PO (21:02)
[2023-03-25] MEDS: Multivitamin TABLET 1 TAB PO (21:02)
[2023-03-25 23:34] VITALS: BP 138/58; PULSE 63; RESP 17; TEMP 36.4; O2SAT 98
[2023-03-26] VITALS (14 sets, daily range): BP systolic 141–180; BP diastolic 27–110; PULSE 62–79; RESP 16–20; TEMP 36.1–37.2; O2SAT 93–98
[2023-03-26] MEDS: Piperacillin Sodium/Tazobactam 3.375 GM in 0.9 % Sodium Chloride 50 ML IV ×2 (02:26→12:19)
--- NOTE | 2023-03-26 02:43 | PC.NURSE ---
Addendum entered by Pamela Brar RN 03/26/23 06:24: Report given to Gloria pt transported by staff on a wheelchair to short stay at 0620. Original Note: Pt is for right leg angioplasty in the morning, NPO post midnight instructed, Heparin SQ held as per Dr. Pires.
[2023-03-26] MEDS: 0.9 % Sodium Chloride 1,000 ML 100 ML IVCONT ×3 (03:30→20:18)
[2023-03-26 06:44] LABS: Glucose, Whole Blood 175 mg/dL (60-115)
--- NOTE | 2023-03-26 09:22 | W.PM.OPN ---
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 Ultrasound-guided left common femoral access 2. Aortogram with right lower extremity runoff 3. right SFA plasty Surgeon:Mitchell Acosta M.D., FACS, RPVI [employer] Certified Network Professional:None Anesthesia: Local with moderate conscious sedation. Total intraservice moderate sedation time was 50 minutes. I monitored the patient's level of consciousness and physiologic status continuously throughout the procedure. Specimens:none Drains:none Estimated blood loss: Less than 10 ml Implant: Medtronic Impact DCB 6 x 80 Indications: pleasant 77-year-old gentleman presented with nonhealing ulcer of the right lower extremity. He had noninvasive testing concerning for common femoral and SFA disease. He now presents for endovascular intervention. The patient has signed the informed consent after reviewing risks, complications, benefits, and alternatives previously discussed with the patient. The patient was given the opportunity to ask any additional questions or voice any concerns. All questions were answered to the patient's satisfaction. Procedure in detail: Patient was brought to the angiography suite prior to which a time-out was called for patient identification and site verification. Bilateral groins were prepped and draped in the standard surgical fashion. Under ultrasound guidance Left common femoral was punctured with micro puncture needle and wire. Subsequently a precision 4 Vincentian sheath was then placed. Bentson wire was advanced to the level of the aorta. 4 Vincentian Flush catheter was brought up and parked at the level of the renal arteries. Aortogram was then undertaken. Catheter was brought down to the level of the iliac bifurcation. Iliacs were subsequently imaged. Catheter was then brought in up and over to the right side SFA. Runoff study was then undertaken. at that time we discovered that there was concern for some InStent restenoses and stenosis below that in the SFA. We administered 5000 units of systemic heparin. After 5 minutes of circulation time up and over 6 Vincentian sheath was then placed over a Glidewire Advantage. Once this was accomplished we were easily able to traverse the lesion on the SFA with the Glidewire Advantage. We placed a trail Blazer catheter. This was instilled with contrast to ensure true lumen. Once this was all done we then initially plasty this area with a 5 x 40 balloon. This require multiple insufflations. We subsequently brought into the right SFA into the stented just distal to the stent a 6 x 80 drug coated balloon. This was brought into position in under 3 minutes and insufflated for a total of 3 minutes in duration. Once this was all accomplished catheter wire sheath was brought back to the ipsilateral side. We did close up images of the iliac kissing stents. There was a mild to moderate stenosis but it would did not appear to be flow limiting. We then removed catheter wire and sheath. StarClose closure device was deployed. Patient tolerated the procedure well. Returned to recovery with stable vitals. Interpretation of films: 1. Ultrasound demonstrates appropriate femoral puncture. Image of which was saved. 2. Aortogram demonstrates appropriate caliber aorta. Minimal disease. Appropriate take-off of the renals. 3. Iliac images demonstrate No significant disease. Stents did appear appropriately placed although smaller in caliber there was a mild to moderate stenosis just at the aortic worn. It did not appear to be flow limiting 4. left Leg Common femoral artery: mild disease at the common femoral near the screw head Profundus Femoris: No significant disease Superficial femoral artery: in stent restenoses and mild to moderate stenosis just below the stent. Rest of SFA appeared to be within normal limits Popliteal artery (p1,p2,p3): no significant disease Anterior tibial artery: good flow to the foot Peroneal artery: good flow to the foot Posterior tibial artery: diminutive but patent and present Dorsalis pedis/plantar arch: incomplete Conclusion: 1. successful plasty of right SFA 2. Anticoagulation status: aspirin and Plavix for 6 months This note is constructed using voice recognition software. While every effort has been made to ensure accuracy, staff consultant errors may have been included. Thank you for allowing me to participate in the care of your patient. Yours sincerely, Mitchell Acosta MD, FACS, R.P.V.I.
[2023-03-26] MEDS: Isosorbide Mononitrate 30 MG TAB.ER.24H PO (12:12)
[2023-03-26] MEDS: Amiodarone HCL 200 MG TABLET PO (12:12)
[2023-03-26] MEDS: Nicotine 14 MG PATCH.TD24 TRANSDERMA (12:13)
--- NOTE | 2023-03-26 12:15 | HO.PM.IMPN ---
Subjective Subjective Date of Service: 03/27/23 Interval History: f/u infected pressure ulcer of right heel, for angiogram Physical Exam Vital Signs: Vital Signs: Last Vital Signs Temp 97.8 F 03/26/23 11:55 Pulse 71 03/26/23 11:55 Resp 20 03/26/23 11:55 BP 163/62 H 03/26/23 11:55 Pulse Ox 95 03/26/23 11:55 O2 Del Method Room Air 03/26/23 11:55 BMI result Body Mass Index 30.7 Objective Data Active Medications Acetaminophen (Acetaminophen 325 Mg Tablet) 650 mg PO Q6H PRN PRN Reason: Pain, Mild (Pain Scale 1-3) Amiodarone HCl (Amiodarone Hcl 200 Mg Tablet) 200 mg PO DAILY FOR[facility], [facility] Last Admin: 03/25/23 09:06 Dose: 200 mg Documented By: FERNANDEZ Amlodipine Besylate (Amlodipine Besylate 10 Mg Tablet) 10 mg PO BEDTIME [facility]LY [facility], [facility]–1983; Protocol Last Admin: 03/25/23 21:02 Dose: 10 mg Documented By: TRINIDAD Comments: bp 148/64 h 66 Ascorbic Acid (Ascorbic Acid 500 Mg Tablet) 500 mg PO BEDTIME [facility], [facility]–1983 Last Admin: 03/25/23 21:02 Dose: 500 mg Documented By: TRINIDAD Aspirin (Aspirin Enteric Coated 81 Mg Tablet.) 81 mg PO BEDTIME [facility], [facility]1983 Last Admin: 03/25/23 21:02 Dose: 81 mg Documented By: TRINIDAD Atorvastatin Calcium (Atorvastatin Calcium 80 Mg Tablet) 80 mg PO BEDTIME [facility], [facility]1983 Last Admin: 03/25/23 21:02 Dose: 80 mg Documented By: TRINIDAD Brimonidine Tartrate (Brimonidine Tartrate 0.2% Oph 5 Ml Bottle) 1 drop EYE-BOTH BID FOR[facility]LY [facility], 1928–1983 Last Admin: 03/26/23 10:35 Dose: Not Given Documented By: LEESA Non-Admin Reason: Off Unit: Surgery Clopidogrel Bisulfate (Clopidogrel Bisulfate 75 Mg Tablet) 75 mg PO DAILY [facility], [facility]1983 Collagenase (Collagenase Clostridium Hist. 30 Gm Tube) 1 appl TOPICAL DAILY [facility], [facility]–1983; Protocol Last Admin: 03/26/23 10:35 Dose: Not Given Documented By: LEESA Non-Admin Reason: Off Unit: Surgery Dextrose (Dextrose 50 % 25 Gm/50 Ml Syringe) 25 gm IVPUSH Q15M PRN; Protocol PRN Reason: per Hypoglycemia Standing Ord. Docusate Sodium (Docusate Sodium 100 Mg Capsule) 200 mg PO DAILY [facility], [facility] Last Admin: 03/26/23 10:35 Dose: Not Given Documented By: LEESA Non-Admin Reason: Off Unit: Surgery Dorzolamide/Timolol (Dorzolamide/Timolo 2.23%/0.68% 10 Ml Drbtl) 1 drop EYE-BOTH BID [facility], 1928–1983 Last Admin: 03/26/23 10:35 Dose: Not Given Documented By: LEESA Non-Admin Reason: Off Unit: Surgery Furosemide (Furosemide 40 Mg Tablet) 40 mg PO DAILY [facility], [facility]; Protocol Last Admin: 03/25/23 09:05 Dose: 40 mg Documented By: FERNANDEZ Gabapentin (Gabapentin 300 Mg Capsule) 300 mg PO BEDTIME [facility], [facility]1983 Last Admin: 03/25/23 21:02 Dose: 300 mg Documented By: TRINIDAD Glucose (Glucose Gel 15 Gm Gel..Gram.) 15 gm PO Q15M PRN; Protocol PRN Reason: per Hypoglycemia Standing Ord. Guaifenesin (Guaifenesin 200 Mg/10 Ml 10 Ml Liquid) 10 ml PO Q6H PRN PRN Reason: Cough Heparin Sodium (Porcine) (Heparin Sodium,Porcine 5,000 Unit/Ml Vial) 5,000 unit SUBCUT Q12H [facility], [facility]1983 Last Admin: 03/26/23 03:31 Dose: Not Given Documented By: TRINIDAD Non-Admin Reason: as per Dr. Pires Vancomycin HCl 1,000 mg/ (Sodium Chloride) 270 mls @ 270 mls/hr IV Q24H [facility], [facility]1983 Last Infusion: 03/25/23 13:26 Dose: Infused Documented By: FERNANDEZ Sodium Chloride (Ns) 1,000 mls @ 100 mls/hr IVCONT .Q10H [facility], [facility]1983 Last Admin: 03/26/23 03:30 Dose: 100 mls/hr Documented By: TRINIDAD Piperacillin Sod/Tazobactam (Sod 3.375 gm/ Sodium Chloride) 50 mls @ 100 mls/hr IV Q6H [facility], 1928–1983 Insulin Human Lispro (Insulin Lispro 100 Unit/Ml 3 Ml Vial) 0 unit SUBCUT QIDACHS [facility], [facility]–1983; Protocol Last Admin: 03/26/23 10:34 Dose: Not Given Documented By: LEESA Non-Admin Reason: Off Unit: Surgery Isosorbide Mononitrate (Isosorbide Mononitrate 30 Mg Tab.Er.24h) 30 mg PO DAILY [facility], [facility]1983; Protocol Last Admin: 03/25/23 09:06 Dose: 30 mg Documented By: FERNANDEZ Morphine Sulfate (Morphine Sulfate 4 Mg/Ml Cartridge) 4 mg IVPUSH Q2H PRN; Protocol PRN Reason: Pain, Severe (Pain Scale 7-10) Multivitamins/Vitamin C (Multivitamin Tablet) 1 tab PO BEDTIME [facility], [facility] Last Admin: 03/25/23 21:02 Dose: 1 tab Documented By: TRINIDAD Nicotine (Nicotine 14 Mg Patch.Td24) 14 mg TRANSDERMA DAILY [facility], [facility]–1983 Last Admin: 03/25/23 09:05 Dose: 14 mg Documented By: FERNANDEZ Non-Formulary Medication (Insulin Degludec) 10 unit SUBCUT BEDTIME [facility], [facility]1983 Last Admin: 03/25/23 20:57 Dose: Not Given Documented By: TRINIDAD Non-Admin Reason: Med Not Available Ondansetron HCl (Ondansetron Hcl 4 Mg/2 Ml Vial) 4 mg IVPUSH Q8H PRN PRN Reason: Nausea and Vomiting Oxycodone HCl (Oxycodone Hcl Immed Release 5 Mg Tablet) 5 mg PO Q4H PRN PRN Reason: Pain, Moderate(Pain Scale 4-6) Pharmacy Consult (Consult Rx Vancomycin Dosing) 1 each MISCELLANE DAILY PRN PRN Reason: Consult order Senna (Sennosides 8.6 Mg Tablet) 17.2 mg PO BEDTIME PRN PRN Reason: Constipation Senna/Docusate Sodium (Sennosides/Docusate Sodium Tablet) 2 tab PO BEDTIME [facility], [facility] Last Admin: 03/25/23 21:05 Dose: Not Given Documented By: TRINIDAD Non-Admin Reason: Patient Refused Sodium Chloride (0.9 % Sodium Chloride Flush 3 Ml Syringe) 3 ml IVFLUSH QSHIFT [facility] Last Admin: 03/26/23 10:34 Dose: Not Given Documented By: LEESA Non-Admin Reason: Off Unit: Surgery Vitamin D (Cholecalciferol (Vitamin D3) 25 Mcg Tablet) 25 mcg PO BEDTIME [facility]1983 Last Admin: 01/02/24 21:02 Dose: 25 mcg Documented By: TRINIDAD Labs 03/23/23 06:45 03/27/23 Unknown Labs: Laboratory Results - last 24 hr 03/25/23 03/25/23 03/26/23 16:29 20:04 06:40 POC Glucose 163 H 200 H 175 H 03/26/23 11:58 POC Glucose 207 H Assessment and Plan (1) PAD (peripheral artery disease): Status: Acute (2) Severe sepsis: Status: Acute (3) Unstageable pressure ulcer of heel: Status: Acute Plan 69-year-old male with history of GERD, peripheral vascular disease, hyperlipidemia, insulin-dependent type 2 diabetes, diabetic polyneuropathy, diabetic retinopathy, CKD stage 3, CAD with history NSTEMI, heart failure preserved ejection fraction, history endocarditis, cardiomyopathy admitted for infected unstageable pressure ulcer R heel with severe sepsis. #Infected Unstageable pressure ulcer right heel with severe sepsis, sepsis resolved. MRI limitted but no definitive OM. , wound care consult. Continue Abx with Vancoo and Zosyn, follow cultures. s/p Aortogram with right lower extremity runoff and right SFA plasty 03/26/[address] Acosta #R hip pain- h/o R hip fracture s/p Right hip IMN 12/10 -continues with pain with movement of joint/extremity -seen by ortho 01/30 advised that his discomfort is part of routine part of healing. Recommended follow up in 6 weeks with repeat imaging, sooner if needed -PT eval. xray of the hip show old fracture with repair # insulin-dependent type 2 diabetes- with hyperglycemia - uncontrolled last hemoglobin A1c 9.2, goal <8.0% given pt age - continue basal insulin - Humalog on sliding scale - diabetic diet, POC glucose #Frequenct PVCs -continue amiodorone (initiated last admission due to bradycardia/PVCs) # diabetic polyneuropathy - continue gabapentin # diabetic retinopathy, unspecified - continue eyedrops # CAD/ HLD/cardiomyopathy - continue ASA isosorbide, statin # heart failure preserved ejection fraction - clinically euvolemic on exam - continue p.o. furosemide # hypertension, continue Norvasc # PVD - continue ASA - check arterial duplex right lower extremity as above # CKD stage 3 - renal function baseline # anemia of chronic disease - H/ H above transfusion threshold, stable DVT prophylaxis-heparin resuscitation okay but do not intubate patient requires ongoing inpt stay for further management of infected unstageable ulcer with probable osteomyelitis requiring IV antibiotics and will likely require prolonged period of antibiotic therapy awaiting negative blood cultures. Will also likely be undergoing endovascular intervention due to PAD which is likely contributing to nonhealing ulcer during hospital stay to promote wound healing PT eval in the morning Quality Stroke Does the patient have a stroke diagnosis?: No VTE Prior VTE?: No VTE Risk Level:: Medical - moderate - high VTE Device Contraindication: Treatment Not Indicated VTE Drug Contraindication: N/A - Med Ordered
--- NOTE | 2023-03-26 13:31 | MHC.CLN ---
F/U PO INTAKE 50-100% DIET RX:[id number] -WILL RE-START 2GM NA R/T CKD, HX NSTEMI UN-STAGEABLE PRESSURE AREA TO RIGHT HEEL CHANGED TO DIABETIC WOUND PER WOUND NURSE ON 03/25/22 PT RECEIVING ENSURE MAX PROTEIN BID TO PROMOTE WOUND HEALING PROVIDES 300 KCALS, 60 G PROTEIN FOLLOW FOR INTAKE AND ENCOURAGE SUPPLEMENT RD TO FOLLOW WEEKLY
[2023-03-26 13:59] LABS: Vancomycin Random 13.2 mcg/mL (15-20)
[2023-03-26 14:08] LABS: Estimated Glomerular Filt Rate 51
[2023-03-26] MEDS: Aspirin Enteric Coated 81 MG TABLET.DR PO (20:15)
[2023-03-26] MEDS: Sennosides/Docusate Sodium TABLET 2 TAB PO (20:16)
[2023-03-26] MEDS: Ascorbic Acid 500 MG TABLET PO (20:16)
[2023-03-26] MEDS: Atorvastatin Calcium 80 MG TABLET PO (20:16)
[2023-03-26] MEDS: Multivitamin TABLET 1 TAB PO (20:16)
[2023-03-26] MEDS: amLODIPine Besylate 10 MG TABLET PO (20:16)
[2023-03-26] MEDS: Gabapentin 300 MG CAPSULE PO (20:16)
[2023-03-26] MEDS: Brimonidine Tartrate 0.2% Oph 5 ML BOTTLE 1 DROP EYE-BOTH (20:18)
[2023-03-27] VITALS (7 sets, daily range): BP systolic 117–157; BP diastolic 48–70; PULSE 59–68; RESP 18–20; TEMP 36.2–36.9; O2SAT 94–98
[2023-03-27 07:59] LABS: Creatinine Clr Calc Pharmacy 42.9; Estimated Glomerular Filt Rate 47
[2023-03-27] MEDS: Nicotine 14 MG PATCH.TD24 TRANSDERMA (08:48)
[2023-03-27] MEDS: Isosorbide Mononitrate 30 MG TAB.ER.24H PO (08:48)
[2023-03-27] MEDS: Brimonidine Tartrate 0.2% Oph 5 ML BOTTLE 1 DROP EYE-BOTH ×2 (08:48→21:08)
[2023-03-27] MEDS: Amiodarone HCL 200 MG TABLET PO (08:49)
[2023-03-27] MEDS: 0.9 % Sodium Chloride Flush 3 ML SYRINGE IVFLUSH (08:50)
[2023-03-27] MEDS: 0.9 % Sodium Chloride 1,000 ML 100 ML IVCONT ×2 (11:12→21:11)
--- NOTE | 2023-03-27 12:40 | HO.PM.IMPN ---
Subjective Subjective Date of Service: 03/27/23 Interval History: Has no pain in the foot, succesful angiogram with plasty yesterday, no fever Physical Exam Vital Signs: Vital Signs: Last Vital Signs Temp 97.1 F 03/27/23 11:32 Pulse 62 03/27/23 11:32 Resp 18 03/27/23 11:32 BP 134/62 03/27/23 11:32 Pulse Ox 98 03/27/23 11:32 O2 Del Method Room Air 03/27/23 11:32 BMI result Body Mass Index 30.7 Const: Other: General: AO X 3, no acute distress Resp: CTA bilateral CVS: S1,S2,RRR GI: +BS, NT, no distention Skin: Neuro: motor grossly intact Psych: appropriate affect Objective Data Active Medications Acetaminophen (Acetaminophen 325 Mg Tablet) 650 mg PO Q6H PRN PRN Reason: Pain, Mild (Pain Scale 1-3) Amiodarone HCl (Amiodarone Hcl 200 Mg Tablet) 200 mg PO DAILY [facility] Last Admin: 03/27/23 08:49 Dose: 200 mg Documented By: JOCELIN Amlodipine Besylate (Amlodipine Besylate 10 Mg Tablet) 10 mg PO BEDTIME [facility]; Protocol Last Admin: 03/26/23 20:16 Dose: 10 mg Documented By: ARCHANA Ascorbic Acid (Ascorbic Acid 500 Mg Tablet) 500 mg PO BEDTIME [facility] Last Admin: 03/26/23 20:16 Dose: 500 mg Documented By: ARCHANA Aspirin (Aspirin Enteric Coated 81 Mg Tablet.) 81 mg PO BEDTIME [facility] Last Admin: 03/26/23 20:15 Dose: 81 mg Documented By: ARCHANA Atorvastatin Calcium (Atorvastatin Calcium 80 Mg Tablet) 80 mg PO BEDTIME [facility] Last Admin: 03/26/23 20:16 Dose: 80 mg Documented By: ARCHANA Brimonidine Tartrate (Brimonidine Tartrate 0.2% Oph 5 Ml Bottle) 1 drop EYE-BOTH BID [facility] Last Admin: 03/27/23 08:48 Dose: 1 drop Documented By: JOCELIN Clopidogrel Bisulfate (Clopidogrel Bisulfate 75 Mg Tablet) 75 mg PO DAILY [facility] Last Admin: 03/27/23 08:49 Dose: 75 mg Documented By: JOCELIN Collagenase (Collagenase Clostridium Hist. 30 Gm Tube) 1 appl TOPICAL DAILY [facility]; Protocol Last Admin: 03/27/23 08:49 Dose: 1 appl Documented By: JOCELIN Dextrose (Dextrose 50 % 25 Gm/50 Ml Syringe) 25 gm IVPUSH Q15M PRN; Protocol PRN Reason: per Hypoglycemia Standing Ord. Docusate Sodium (Docusate Sodium 100 Mg Capsule) 200 mg PO DAILY [facility] Last Admin: 03/27/23 08:49 Dose: Not Given Documented By: JOCELIN Non-Admin Reason: Patient Refused Dorzolamide/Timolol (Dorzolamide/Timolo 2.23%/0.68% 10 Ml Drbtl) 1 drop EYE-BOTH BID [facility] Last Admin: 03/27/23 08:48 Dose: 1 drop Documented By: JOCELIN Furosemide (Furosemide 40 Mg Tablet) 40 mg PO DAILY [facility]; Protocol Last Admin: 03/27/23 08:49 Dose: 40 mg Documented By: JOCELIN Gabapentin (Gabapentin 300 Mg Capsule) 300 mg PO BEDTIME [facility] Last Admin: 03/26/23 20:16 Dose: 300 mg Documented By: ARCHANA Glucose (Glucose Gel 15 Gm Gel..Gram.) 15 gm PO Q15M PRN; Protocol PRN Reason: per Hypoglycemia Standing Ord. Guaifenesin (Guaifenesin 200 Mg/10 Ml 10 Ml Liquid) 10 ml PO Q6H PRN PRN Reason: Cough Heparin Sodium (Porcine) (Heparin Sodium,Porcine 5,000 Unit/Ml Vial) 5,000 unit SUBCUT Q12H [facility] Last Admin: 03/27/23 06:05 Dose: 5,000 unit Documented By: ARCHANA Sodium Chloride (Ns) 1,000 mls @ 100 mls/hr IVCONT .Q10H [facility] Last Admin: 03/27/23 11:12 Dose: 100 mls/hr Documented By: LOLA Piperacillin Sod/Tazobactam (Sod 3.375 gm/ Sodium Chloride) 50 mls @ 100 mls/hr IV Q6H [facility] Last Infusion: 03/27/23 06:38 Dose: Infused Documented By: ARCHANA Vancomycin HCl 1,000 mg/ (Sodium Chloride) 270 mls @ 270 mls/hr IV Q24H [facility] Last Infusion: 03/26/23 15:56 Dose: Infused Documented By: LEESA Insulin Glargine (Insulin Glargine,Hum.Rec.Anlog 100 Unit/Ml 10 Ml Vial) 10 unit SUBCUT BEDTIME [facility] Insulin Human Lispro (Insulin Lispro 100 Unit/Ml 3 Ml Vial) 0 unit SUBCUT QIDACHS [facility]; Protocol Last Admin: 03/27/23 11:47 Dose: 6 unit Documented By: LOLA Isosorbide Mononitrate (Isosorbide Mononitrate 30 Mg Tab.Er.24h) 30 mg PO DAILY [facility]; Protocol Last Admin: 03/27/23 08:48 Dose: 30 mg Documented By: JOCELIN Morphine Sulfate (Morphine Sulfate 4 Mg/Ml Cartridge) 4 mg IVPUSH Q2H PRN; Protocol PRN Reason: Pain, Severe (Pain Scale 7-10) Multivitamins/Vitamin C (Multivitamin Tablet) 1 tab PO BEDTIME [facility] Last Admin: 03/26/23 20:16 Dose: 1 tab Documented By: ARCHANA Nicotine (Nicotine 14 Mg Patch.Td24) 14 mg TRANSDERMA DAILY [facility] Last Admin: 03/27/23 08:48 Dose: 14 mg Documented By: JOCELIN Ondansetron HCl (Ondansetron Hcl 4 Mg/2 Ml Vial) 4 mg IVPUSH Q8H PRN PRN Reason: Nausea and Vomiting Oxycodone HCl (Oxycodone Hcl Immed Release 5 Mg Tablet) 5 mg PO Q4H PRN PRN Reason: Pain, Moderate(Pain Scale 4-6) Pharmacy Consult (Consult Rx Vancomycin Dosing) 1 each MISCELLANE DAILY PRN PRN Reason: Consult order Senna (Sennosides 8.6 Mg Tablet) 17.2 mg PO BEDTIME PRN PRN Reason: Constipation Senna/Docusate Sodium (Sennosides/Docusate Sodium Tablet) 2 tab PO BEDTIME [facility] Last Admin: 03/26/23 20:16 Dose: 2 tab Documented By: ARCHANA Sodium Chloride (0.9 % Sodium Chloride Flush 3 Ml Syringe) 3 ml IVFLUSH QSHIFT [facility] Last Admin: 03/27/23 08:50 Dose: 3 ml Documented By: JOCELIN Vitamin D (Cholecalciferol (Vitamin D3) 25 Mcg Tablet) 25 mcg PO BEDTIME [facility] Last Admin: 03/26/23 20:16 Dose: 25 mcg Documented By: ARCHANA Labs 03/23/23 06:45 03/27/23 Unknown Labs: Laboratory Results - last 24 hr 03/26/23 03/26/23 03/26/23 13:37 16:20 20:18 Hold Purple Top Estim Creat Clear Calc 46.0 Estimated GFR 51 POC Glucose 201 H 153 H Random Vancomycin 13.2 L 03/27/23 03/27/23 03/27/23 06:53 07:08 11:12 Hold Purple Top SEE NOTE Estim Creat Clear Calc Estimated GFR POC Glucose 131 H 260 H Random Vancomycin 03/27/23 Unknown Hold Purple Top Estim Creat Clear Calc 42.9 Estimated GFR 47 POC Glucose Random Vancomycin Microbiology Microbiology Results: Microbiology 03/22/23 08:59 Blood Culture - Final Blood - Venous No growth after 5 days. 03/22/23 08:59 Blood Culture - Final Blood - Venous No growth after 5 days. Assessment and Plan (1) PAD (peripheral artery disease): Status: Acute (2) Severe sepsis: Status: Acute (3) Unstageable pressure ulcer of heel: Status: Acute Plan 69-year-old male with history of GERD, peripheral vascular disease, hyperlipidemia, insulin-dependent type 2 diabetes, diabetic polyneuropathy, diabetic retinopathy, CKD stage 3, CAD with history NSTEMI, heart failure preserved ejection fraction, history endocarditis, cardiomyopathy admitted for infected unstageable pressure ulcer R heel with severe sepsis. #Infected, Unstageable pressure ulcer right heel with severe sepsis, sepsis resolved. MRI limitted but no definitive OM. CRP was relateively, so doubt osteo, Continue Abx with Vancoo and Zosyn, follow cultures. s/p Aortogram with right lower extremity runoff and right SFA plasty 03/26/[address] Acosta.. Will discuss with Vascular re further plan, ID consult re duration of Abx. Wound consult rec: 1. Turn and Reposition every 2 hours and as needed for patient comfort. 2. Off Load all bony prominences with use of pillows and heel boots if needed.? Apply Preventative foams where needed. ? 3. Monitor for incontinence and moisture control, use barrier creams when needed for prevention and treatment. 4. Provide adequate and supplemental nutrition. 5. Order low air loss mattress. Order Heel boot protector. 6. Maintain blood glucose levels per Providers orders. 7. Left Heel - Apply Foam dressing to protect from friction and aid in off loading pressure. Elevate off of bed surface with use of pilllow. 8. Right Heel - Elevate heel off of surface of bed Cleanse with normal saline, pat dry. ?Apply barrier wipe to the immediate jr wound, apply thick layer of Santyl to entire wound bed, cover with dry gauze, followed by ABD pad, gauze wrap. Change Daily. #R hip pain- h/o R hip fracture s/p Right hip IMN 12/10 -continues with pain with movement of joint/extremity -seen by ortho 01/30 advised that his discomfort is part of routine part of healing. Recommended follow up in 6 weeks with repeat imaging, sooner if needed -PT eval. xray of the hip show old fracture with repair # insulin-dependent type 2 diabetes- with hyperglycemia - uncontrolled last hemoglobin A1c 9.2, goal <8.0% given pt age - continue basal insulin - Humalog on sliding scale - diabetic diet, POC glucose #Frequenct PVCs -continue amiodorone (initiated last admission due to bradycardia/PVCs) # diabetic polyneuropathy - continue gabapentin # diabetic retinopathy, unspecified - continue eyedrops # CAD/ HLD/cardiomyopathy - continue ASA isosorbide, statin # heart failure preserved ejection fraction - clinically euvolemic on exam - continue p.o. furosemide # hypertension, continue Norvasc # PVD - continue ASA - check arterial duplex right lower extremity as above # CKD stage 3 B - renal function baseline # anemia of chronic disease - H/ H above transfusion threshold, stable DVT prophylaxis-heparin resuscitation okay but do not intubate patient requires ongoing inpt stay for further management of infected unstageable ulcer with probable osteomyelitis requiring IV antibiotics and will likely require prolonged period of antibiotic therapy awaiting negative blood cultures. Will also likely be undergoing endovascular intervention due to PAD which is likely contributing to nonhealing ulcer during hospital stay to promote wound healing PT eval in the morning Doesn't need tele Quality Stroke Does the patient have a stroke diagnosis?: No VTE Prior VTE?: No VTE Risk Level:: Medical - moderate - high VTE Device Contraindication: Treatment Not Indicated VTE Drug Contraindication: N/A - Med Ordered
[2023-03-27] MEDS: Aspirin Enteric Coated 81 MG TABLET.DR PO (21:08)
[2023-03-27] MEDS: amLODIPine Besylate 10 MG TABLET PO (21:08)
[2023-03-27] MEDS: Gabapentin 300 MG CAPSULE PO (21:08)
[2023-03-27] MEDS: Atorvastatin Calcium 80 MG TABLET PO (21:08)
[2023-03-27] MEDS: Ascorbic Acid 500 MG TABLET PO (21:08)
[2023-03-27] MEDS: Sennosides/Docusate Sodium TABLET 2 TAB PO (21:08)
[2023-03-27] MEDS: Multivitamin TABLET 1 TAB PO (21:08)
[2023-03-28] MEDS: 0.9 % Sodium Chloride Flush 3 ML SYRINGE IVFLUSH ×2 (01:02→08:12)
[2023-03-28 04:00] VITALS: BP 129/41; PULSE 62; RESP 18; TEMP 36.8; O2SAT 88
[2023-03-28 04:55] VITALS: O2SAT 95
[2023-03-28 07:51] VITALS: BP 140/46; PULSE 67; RESP 20; TEMP 36.8; O2SAT 94
[2023-03-28] MEDS: Amiodarone HCL 200 MG TABLET PO (08:12)
[2023-03-28] MEDS: Isosorbide Mononitrate 30 MG TAB.ER.24H PO (08:12)
[2023-03-28] MEDS: Nicotine 14 MG PATCH.TD24 TRANSDERMA (08:12)
[2023-03-28 08:55] LABS: Estimated Glomerular Filt Rate 46
--- NOTE | 2023-03-28 09:43 | HO.WOUND ---
Wound Consult: Follow up 77yr old male admitted to [facility] on?03/22/23 14:40 See progress notes and H&P for detailed history. Recent admission and see by this editorial writer for the right heel wound. Wound consult placed for Right Heel Pressure Injury Present on Admission. Pt reports and chart review supports pt visited outpt Wound Clinic - 1st and last visit 02/27/[address] Coffey and topical recommendation was made for Santyl. Outpt Wound Clinic notes report wound etiology as Diabetic Wound as Primary Etiology - Unstageable Pressure Injury. At time of discharge patient should continue follow up care with outpt Wound Clinic and Dr. Acosta whom he follows with outpatient. This admission pt had angio with Dr. Acosta. No photo at todays assessment Right Heel Etiology: Diabetic Wound POA Measurements: 2cm x 2.5cm x 0.5cm Wound Bed: Adherent moist fibrinous yellow lozada slough - depth appreciated to 0.5cm - scattered area of red pink moist tissue at wound edges Drainage / Odor: no odor noted - lozada yellow moist drainage noted on dressing. Edges: ? epibole Jr wound: No erythema - No Induration noted Pain: Pt reports significant pain and tenderness when cleansed Goals of Treatment: ? Santyl for continued enzymatic debridement - Follow up outpt wound clinic at time of d/c and Dr. Acosta to continue to follow inpt and consider debridement of necrotic tissue No new topical recommendations needed at this time. Recommendations: 1. Turn and Reposition every 2 hours and as needed for patient comfort. 2. Off Load all bony prominences with use of pillows and heel boots if needed.? Apply Preventative foams where needed. ? 3. Monitor for incontinence and moisture control, use barrier creams when needed for prevention and treatment. 4. Provide adequate and supplemental nutrition. 5. Order low air loss mattress. Order Heel boot protector. 6. Maintain blood glucose levels per Providers orders. 7. Left Heel - Apply Foam dressing to protect from friction and aid in off loading pressure. Elevate off of bed surface with use of pilllow. 8. Right Heel - Elevate heel off of surface of bed Cleanse with normal saline, pat dry. ?Apply barrier wipe to the immediate jr wound, apply thick layer of Santyl to entire wound bed, cover with dry gauze, followed by ABD pad, gauze wrap. Change Daily. Re-consult wound care Nurse for wound deterioration or wound changes.
[2023-03-28 11:36] VITALS: BP 126/51; PULSE 56; RESP 20; TEMP 36; O2SAT 95
--- NOTE | 2023-03-28 12:13 | MHC.CM.PN ---
Second IMM 03/28/23. pt has been medically cleared for DC. His family will bring him home. He will resume his services from [facility].
--- NOTE | 2023-03-28 12:26 | PM.DS ---
DS: Providers Provider Date of Service: 03/28/23 Date of admission: 03/22/23 14:40 Primary care physician: Marcia Clements MD Consults: 03/22/23 14:46 Consult to Wound Care Routine Reason for consultation: infected ulcer r heel- rn consult 03/22/23 15:09 Consult to General Surgery Routine Consulting Provider: [facility] General Surgeons Reason for consultation: R heel ulcer- ?debridement 03/22/23 19:23 Consult to Vascular Surgery Routine Consulting Provider: [facility] Vascular Services Reason for consultation: nonhealing unstageable pressure ulcer R heel, PAD, ?osteo 03/27/23 12:41 Consult to Infectious Diseases Routine Consulting Provider: [facility] Infectious Disease Reason for consultation: infected ulcer possible OM Has provider been notified: No DS: Diagnosis Discharge Diagnosis (1) PAD (peripheral artery disease): Status: Acute (2) Severe sepsis: Status: Resolved (3) Unstageable pressure ulcer of heel: Status: Acute DS: Summary Hospital Course Hospital Course: Chief Complaint: foot ulcer 69-year-old male with history of GERD, coronary artery disease, peripheral vascular disease, hyperlipidemia, insulin-dependent type 2 diabetes, diabetic polyneuropathy, diabetic retinopathy, CKD stage 3, CAD with history NSTEMI, heart failure preserved ejection fraction, history endocarditis, cardiomyopathy presents to the ED earlier today for evaluation of an ulcer on the right heel. Patient was recently admitted to [facility] from 03/02-03/11 due to bradycardia, CHF exacerbation, and DEAN. He was noted to have right unstageable heel pressure injury that had been present on admission at that time and is followed by the technical documentation specialist and had been recommended for outpatient follow-up with wound care. He states he did follow once with wound care though notes are not available. Also has RN in the home once weekly to assist with dressings and for wound check. dressings are changed on a daily basis at home. However over the last few days, his has noted purulent drainage as well as foul odor from the wound and the patient is reporting significant pain over the ulcer. He feels he rubbed the wound over a blanket sloughing off some skin which causes these symptoms. He Is also reporting a productive cough with yellow sputum production and pleuritic chest pain which started yesterday. Denies any fevers or chills. No sick contacts. On arrival, vital signs stable. No tachycardia. Single episode of tachypnea likely secondary to pain. No hypotension. There is leukocytosis of 15.3. Renal function baseline, electrolyte levels normal. Glucose 273. Lactic acid 3.0, improved to 1.9 following 1 L IVF. CRP 0.79, ESR pending, procalcitonin 0.05. BNP 185. Urinalysis unremarkable. Negative for COVID, influenza, RSV. Chest x-ray negative for any acute cardiopulmonary abnormality. X-ray of the right foot negative for fracture or dislocation. No focal soft tissue swelling, gas, foreign body. There is also no abnormal focal bony erosion or periosteal thickening suggestive of osteomyelitis. Time Attestation Discharge coordination time: Greater than 30 minutes Quality: Safe Use of Opioids Does Pt have an Active Cancer Diagnosis on the Problem List?: No Quality: Stroke Does the patient have a stroke diagnosis?: No Physical Exam Vital Signs: Vital Signs: Last Vital Signs Temp 96.8 F 03/28/23 11:36 Pulse 56 03/28/23 11:36 Resp 20 03/28/23 11:36 BP 126/51 L 03/28/23 11:36 Pulse Ox 95 03/28/23 11:36 O2 Del Method Room Air 03/28/23 11:36 BMI result Body Mass Index 30.7 DS: Data Data Completed and Pending Completed studies during hospitalization [Text1]: Procedures Reposition Left Upper Femur with Intramedullary Internal Fixation Device, Percutaneous Approach (12/08/22) Transfusion of Nonautologous Red Blood Cells into Peripheral Vein, Percutaneous Approach (12/08/22) Labs on day of discharge: Laboratory Results - last 24 hr 03/27/23 03/27/23 03/28/23 16:29 19:14 07:14 Hold Purple Top Creatinine Estim Creat Clear Calc Estimated GFR POC Glucose 150 H 205 H 135 H 03/28/23 03/28/23 07:23 11:39 Hold Purple Top SEE NOTE Creatinine 1.49 H Estim Creat Clear Calc 42.0 Estimated GFR 46 POC Glucose 223 H Discharge Plan Discharge Anticipated Discharge Date/Time: 03/28/23 11:43 Patient Disposition: Home Health Service Discharge Diagnosis: Cellulitis of the foot Referrals: [facility] [Outside] - 1 Week Po,Marcia Overton MD [Primary Care Provider] - 1 Week Discharge Medications: Continued (DME) pen needle, diabetic [BD Martina 2nd Gen Pen Needle] 32 gauge x 5/32 needle See Rx Instructions .MEDSUPPLY Qty: 400 4RF Rx Instructions: 5 times a day (DME) hospital bed See Rx Instructions .Route .MEDSUPPLY Qty: 1 0RF Rx Instructions: As directed (DME) HOSPITAL BED See Rx Instructions .Route .MEDSUPPLY Qty: 1 0RF Rx Instructions: As directed nicotine 14 mg/24 hr patch 24 hour 1 patch transdermal DAILY Qty: 28 0RF (DME) diabetic shoe lift 1 inch See Rx Instructions .Route .MEDSUPPLY Qty: 1 0RF Rx Instructions: As directed (DME) diabetic shoes See Rx Instructions .Route .MEDSUPPLY Qty: 2 0RF Rx Instructions: As directed amlodipine 10 mg tablet 10 mg PO BEDTIME Qty: 90 0RF acetaminophen [Tylenol Extra Strength] 500 mg tablet 500 mg PO Q6H PRN (Reason: pain or fever) Qty: 20 0RF dorzolamide-timolol 22.3-6.8 mg/mL drops 1 drp ophthalmic (eye) BID multivitamin Tablet 1 tab PO BEDTIME ascorbic acid (vitamin C) 500 mg Tablet 500 mg PO BEDTIME brimonidine 0.15 % drops 1 drp ophthalmic (eye) BID aspirin 81 mg tablet,delayed release (DR/EC) 81 mg PO BEDTIME insulin lispro [Humalog KwikPen Insulin] 100 unit/mL insulin pen 1 sliding scale dose subcut TIDAC Rx Instructions: before meals as directed rosuvastatin 40 mg tablet 40 mg PO BEDTIME cholecalciferol (vitamin D3) 25 mcg (1,000 unit) tablet 25 mcg PO BEDTIME insulin degludec 100 unit/mL (3 mL) insulin pen 20 unit subcut BEDTIME docusate sodium 100 mg Capsule 200 mg PO DAILY Qty: 30 0RF Santyl 250 unit/gram ointment 1 appl topical DAILY Trulicity 1.5 mg/0.5 mL pen injector 1.5 mg subcut PONCE@0900 (DME) FreeStyle Lite Strips Strip See Rx Instructions .ROUTE .MEDSUPPLY Qty: 150 11RF Rx Instructions: As directed four times a day (DME) 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 meter [FreeStyle [place] Lite] Kit See Rx Instructions .ROUTE .MEDSUPPLY Qty: 1 0RF Rx Instructions: As directed (DME) lancets [FreeStyle Lancets] 28 gauge misc See Rx Instructions .ROUTE .MEDSUPPLY Qty: 100 3RF Rx Instructions: As directed check BS QD gabapentin 300 mg capsule 300 mg PO BEDTIME Qty: 90 2RF No Action isosorbide mononitrate 30 mg tablet extended release 24 hr 30 mg PO DAILY Qty: 30 5RF Protocol: Hold for SBP< HOLD for SBP < : 90 clopidogrel [Plavix] 75 mg tablet 75 mg PO DAILY Qty: 30 5RF amiodarone 200 mg tablet 200 mg PO DAILY Qty: 30 5RF furosemide 40 mg tablet 40 mg PO DAILY Qty: 30 5RF Protocol: Hold for SBP< HOLD for SBP < : 90 furosemide [Lasix] 20 mg tablet 20 mg PO QPM Qty: 30 2RF Rx Instructions: around 5 pm Discharge Orders: Discharge Order (Routine); Ordered 03/28/23 Ordered By: Curtis Saeed Diet: Diabetic diet Activity on Discharge: As tolerated Stand Alone Forms: Patient Portal Discharge page Activity Restrictions/Additional Instructions: Wound care upon discharge: Left Heel - Apply Foam dressing to protect from friction and aid in off loading pressure. Elevate off of bed surface with use of pilllow. Right Heel - Elevate heel off of surface of bed Cleanse with normal saline, pat dry. Apply barrier wipe to the immediate jr wound, apply thick layer of Santyl to entire wound bed, cover with dry gauze, followed by ABD pad, gauze wrap. Change Daily. Care Plan Goals: healing of diabetic foot ulcer Health Concerns: peripheral vascular disease, diabetes, diabetes foot ulcer Plan of Treatment: take Doxycycline as recommended and follow upw ithg your Doctor in a week, follow up with Dr. Acosta in the office within 2 weeks Visiting nurses will come and see you Dry dressing wrap to the wound daily and to be checked by [facility] Assessment: see above Discharge Date/Time: 03/28/23 14:11
--- NOTE | 2023-04-03 18:07 | PC.NURSE ---
Late entry vital signs entered for Hr of 75 BP 119/52 timed from 03/22 1158
== END 2023-03-28 14:11 | disposition home health service (06) | DRG 579 ==
LOC: HO.ED 11:48 → HO.EDOVER 14:49 → HO.IMC 16:51
PROVIDERS: Hospitalist; Surgery Vascular Surgery; Admitting Provider Physician Assistant; Emergency Provider Emergency Medicine; PCP Internal Medicine; Visit Provider Internal Medicine
PROC: 047K3Z1 Dilation of Right Femoral Artery using Drug-Coated Balloon, Percutaneous Approach (ICD-10-PCS; principal; 2023-03-26 07:30)
DX: L89.610 Pressure ulcer of right heel, unstageable (principal); R65.20 Severe sepsis without septic shock; I13.0 Hypertensive heart and chronic kidney disease with heart failure and stage 1 through stage 4 chronic kidney disease, or unspecified chronic kidney disease; I50.32 Chronic diastolic (congestive) heart failure; I96 Gangrene, not elsewhere classified; E11.319 Type 2 diabetes mellitus with unspecified diabetic retinopathy without macular edema; E11.51 Type 2 diabetes mellitus with diabetic peripheral angiopathy without gangrene; I49.3 Ventricular premature depolarization; E11.65 Type 2 diabetes mellitus with hyperglycemia; D63.1 Anemia in chronic kidney disease; N18.32 Chronic kidney disease, stage 3b; I70.291 Other atherosclerosis of native arteries of extremities, right leg; E11.42 Type 2 diabetes mellitus with diabetic polyneuropathy; E11.22 Type 2 diabetes mellitus with diabetic chronic kidney disease; I25.10 Atherosclerotic heart disease of native coronary artery without angina pectoris; Z87.891 Personal history of nicotine dependence; Z79.4 Long term (current) use of insulin; Z79.02 Long term (current) use of antithrombotics/antiplatelets; Z79.82 Long term (current) use of aspirin; Z79.899 Other long term (current) drug therapy
CPT/HCPCS: 0241U; 36415; 37224; 71045; 73502; 73630; 73718; 76937; 80048; 80076; 80202; 81001; 82565; 82947; 83605; 83690; 83880; 84145; 85025; 85652; 86140; 87040; 93926; 97116; 97162; 99152; 99153; 99285; A4364; C1725; C1760; C1769; C1887; J1644; J2270; J2543; J3370

== ENCOUNTER → 2023-03-22 14:40 | Outpatient (BNV) | payer MEDICARE, SELFPAY | PROVIDERS: Admitting Provider Physician Assistant; Emergency Provider Emergency Medicine; PCP Internal Medicine; Visit Provider Surgery | DX: S91.301A Unspecified open wound, right foot, initial encounter (principal) | CPT/HCPCS: 99222; 99232 ==

== ENCOUNTER → 2023-03-22 14:40 | Outpatient (BNV) | payer MEDICARE, SELFPAY | PROVIDERS: Admitting Provider Physician Assistant; Emergency Provider Emergency Medicine; PCP Internal Medicine; Visit Provider Physician Assistant | DX: I73.9 Peripheral vascular disease, unspecified (principal); A41.9 Sepsis, unspecified organism; R65.20 Severe sepsis without septic shock; L89.600 Pressure ulcer of unspecified heel, unstageable | CPT/HCPCS: 99223; 99232; 99239 ==

== ENCOUNTER → 2023-03-22 14:40 | Outpatient (BNV) | payer MEDICARE, SELFPAY | PROVIDERS: Admitting Provider Physician Assistant; Emergency Provider Emergency Medicine; PCP Internal Medicine; Visit Provider Surgery Vascular Surgery | DX: I70.239 Atherosclerosis of native arteries of right leg with ulceration of unspecified site (principal) | CPT/HCPCS: 37224; 75625; 75710; 76937; 99222; 99232 ==

== ENCOUNTER 2023-04-10 06:07 | Inpatient (IN) | payer MEDICARE, SELFPAY ==
[2023-04-10] VITALS (10 sets, daily range): BP systolic 148–179; BP diastolic 53–77; PULSE 69–90; RESP 16–22; TEMP 36.4–37.4; O2SAT 90–97; BMI 30.6; BMI 29.9; BMI 30.2
--- NOTE | 2023-04-10 | ECG_ITS ---
Test Reason : cp Blood Pressure : / mmHG Vent. Rate : 080 BPM Atrial Rate : 080 BPM P-R Int : 144 ms QRS Dur : 092 ms QT Int : 392 ms P-R-T Axes : 048 -06 080 degrees QTc Int : 452 ms Sinus rhythm with Premature atrial complexes with Aberrant conduction Cannot rule out Inferior infarct , age undetermined Abnormal ECG When compared with ECG of 03-MAR-2023 07:50, Premature ventricular complexes are no longer Present QT has shortened Referred By: Generic ED Physician Electronically Signed By:SVETLANA KESSLER
--- NOTE | ~2023-04-10 | XR_ITS ---
EXAMINATION: XR CHEST CLINICAL INFORMATION: Chest pain. Shortness of breath. COMPARISON: Chest radiograph 03/22/2023. TECHNIQUE: Frontal view of the chest was obtained. FINDINGS: Multiple unfractured median sternotomy wires noted. The cardiac silhouette is normal in size. Mild blunting of the left right costophrenic sulci with findings most pronounced on the right is noted. No pneumothoraces visualized. Diffuse vascular indistinctness is present along with central peribronchial wall thickening and vague subpleural perpendicular thin linear opacities suspicious for developing Sloane-B lines. No focal pulmonary consolidation identified. Partial visualization is made of chronic appearing arthropathic changes of the right glenohumeral joint and posttraumatic appearing deformity of the right humeral neck. XR/XR chest 1V IMPRESSION: *Findings suspicious for mild-moderate pulmonary edema. *Small bilateral pleural effusions.
--- NOTE | ~2023-04-10 | NM_ITS ---
PULMONARY PERFUSION ONLY STUDY: CLINICAL INDICATION: Hypoxia. Pleuritic chest pain. PROCEDURE: Following the intravenous administration of 4.0 millicuries technetium 99m MAA, images of the chest were obtained in multiple projections using a gamma scintiphotographic camera. COMPARISON: Chest radiograph done earlier today. PERFUSION IMAGES: There are no large segmental perfusion defect present on either side. Slight heterogeneous tracer avidity is present at both lower lobes with evidence of stripe sign bilaterally. NM/NM pul perfusion IMPRESSION: Based on perfusion only modified PIOPED 2 criteria, pulmonary thromboembolism is considered absent.
[2023-04-10 06:32] LABS: Basophils Absolute Auto 0.1 X10*3/uL (0.0-0.2); Basophils Percent Auto 0.8 % (0-2); Eosinophils Absolute Auto 0.3 X10*3/uL (0.0-0.4); Eosinophils Percent Auto 3.4 % (0-4); Hematocrit 32.4 % (42.0-52.0); Hemoglobin 10.9 g/dl (14.0-18.0); Imm Gran Abs Auto 0.02 X10*3/uL (0.00-0.03); Imm Gran Pct Auto 0.2 % (0.0-0.4); Lymphocytes Absolute Auto 2.3 X10*3/uL (1.2-4.9); Lymphocytes Percent Auto 23.9 % (20-40); MANUAL DIFF FLAG NO; Mean Corpuscular HGB Conc 33.6 g/dl (31.0-36.0); Mean Corpuscular Hemoglobin 31.4 pg (27.0-33.0); Mean Corpuscular Volume 93.4 fL (80.0-98.0); Mean Platelet Volume 9.8 fL (9.4-12.4); Monocytes Absolute Auto 0.8 X10*3/uL (0.1-1.2); Monocytes Percent Auto 8.5 % (2-11); Neutrophils Percent Auto 63.2 % (45-73); Platelet Count 223 X10*3/uL (160-400); Red Blood Count 3.47 X10*6/uL (4.60-5.80); Red Cell Distribution Width 14.9 % (11.0-16.0); White Blood Count 9.4 X10*3/uL (4.8-10.8)
[2023-04-10 06:47] LABS: Alanine Aminotransferase 19 U/L (0-40); Albumin Level 3.9 g/dL (3.5-5.0); Alkaline Phosphatase 128 U/L (39-117); Anion Gap 14 (12-20); Aspartate Amino Transferase 19 U/L (5-37); Bilirubin Total 0.6 mg/dL (0.0-1.0); Blood Urea Nitrogen 19 mg/dL (9-16); Calcium 9.6 mg/dL (8.4-10.2); Carbon Dioxide 26 mmol/L (22-29); Chloride 107 mmol/L (96-108); Creatinine Clr Calc Pharmacy 43.1; Estimated Glomerular Filt Rate 47; Glucose Random 215 mg/dL (60-115); Potassium 3.8 mmol/L (3.3-5.1); Sodium 143 mmol/L (135-145); Total Protein 7.9 g/dL (6.5-8.0)
[2023-04-10 06:53] LABS: B Type Natriuretic Peptide 228 pg/mL (<100); Troponin-I High Sensitivity 16.9 ng/L (<3.5-35.0)
--- NOTE | 2023-04-10 07:15 | PC.NURSE ---
assumed care of this pt at 0700. pt in room, he was placed on 2L O2 n/c satting high 90s, a 20g iv was inserted LAC, labs were drawn and sent, EKG done. pt resting quietly, no apparent distress.
--- NOTE | 2023-04-10 07:17 | ED_ITS ---
HPI - Chest Pain General Chief Complaint: Chest Pain Stated Complaint: SOB Time Seen by Provider: 04/10/23 07:04 Source: patient, EMS and old records reviewed Mode of arrival: EMS Limitations: no limitations History of Present Illness HPI narrative: 77 yo male PMH of anemia, depression, CKD, DM, CHF with preserved EF, CAD, HTN, HLD, PVD, moderate aortic valve stenosis, s/p R hip IMN on 12/10 sp fall for intertrochanteric fracture, NSVT, pneumonia, recent admit 03/02 - 03/11 for bradycardia, R heel ulcer who comes in today with c/o noticing that yesterday he started to have MCCONNELL, orthopnea, fatigue with walking. He notes central chest tightness as well and states he has to breathe through his mouth. He is compliant with his medications. He states he was given aspirin and nitro along with oxygen prior to arrival - EMS noted saturations in 70s/80s. He does not wear O2 at home. He denies cough or fevers. He tells me the oxygen really helped him. MD complaint: chest heaviness Pertinent past history: coronary artery disease and CABG Onset (ago): day(s) (last night) Timing of current episode: episodic Prior episodes: Yes Onset: during rest and during exertion Pain location: substernal Pain radiation: none Severity: moderate Quality: tightness Relieving factors: nothing Exacerbating factors: exertion, inspiration, supine and movement Associated symptoms: dyspnea and leg swelling Treatment prior to arrival: aspirin, nitroglycerin and oxygen Related Data Home Medications Medication Instructions Recorded Confirmed ascorbic acid (vitamin C) 500 mg 500 mg PO BEDTIME 06/07/21 03/22/23 tablet dorzolamide 22.3 mg-timolol 6.8 1 drp ophthalmic (eye) BID 06/07/21 03/22/23 mg/mL eye drops guselkumab 100 mg/mL subcutaneous 100 mg subcut Q8W 06/07/21 03/22/23 auto-injector (Tremfya) multivitamin 1 tab PO BEDTIME 06/07/21 03/22/23 aspirin 81 mg tablet,delayed 81 mg PO BEDTIME 12/09/22 03/22/23 release brimonidine 0.15 % eye drops 1 drp ophthalmic (eye) BID 12/09/22 03/22/23 cholecalciferol (vitamin D3) 25 25 mcg PO BEDTIME 12/09/22 03/22/23 mcg (1,000 unit) tablet insulin degludec 100 unit/mL (3 20 unit subcut BEDTIME 12/09/22 03/22/23 mL) subcutaneous pen insulin lispro 100 unit/mL 1 sliding scale dose subcut TIDAC 12/09/22 03/22/23 subcutaneous pen (Humalog KwikPen (U-100) Insulin) rosuvastatin 40 mg tablet 40 mg PO BEDTIME 12/09/22 03/22/23 collagenase clostridium histo. 250 1 appl topical DAILY 03/03/23 03/22/23 unit/gram topical ointment (Santyl) dulaglutide 1.5 mg/0.5 mL 1.5 mg subcut PONCE@0900 03/03/23 03/22/23 subcutaneous pen injector (Trulicity) Previous Rx's Medication Instructions Recorded acetaminophen 500 mg tablet 500 mg PO Q6H PRN pain or fever 01/30/21 (Tylenol Extra Strength) #20 tabs pen needle, diabetic 32 gauge x #400 ea 10/19/2132 (BD Martina 2nd Gen Pen Needle) blood sugar diagnostic (FreeStyle #150 ea 08/05/22 Lite Strips) 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 meter (FreeStyle #1 ea 08/05/22 Jackson Lite kit) lancets 28 gauge (FreeStyle #100 08/05/22 Lancets) gabapentin 300 mg capsule 300 mg PO BEDTIME #90 [facility] 11/21/22 docusate sodium 100 mg capsule 200 mg (2 x 100 mg) PO DAILY #30 12/17/22 [facility] hospital bed #1 ea 01/02/23 HOSPITAL BED #1 ea 01/07/23 furosemide 40 mg tablet 40 mg PO DAILY #30 tabs 03/10/23 isosorbide mononitrate 30 mg 30 mg PO DAILY #30 tabs 03/11/23 tablet,extended release 24 hr nicotine 14 mg/24 hr daily 1 patch transdermal DAILY #28 ea 03/11/23 transdermal patch sennosides 8.6 mg-docusate sodium 2 tab-cap (2 x 8.6-50 mg) PO 03/11/23 50 mg tablet (Senna-S) BEDTIME 30 days #60 tabs amiodarone 200 mg tablet 200 mg PO DAILY #30 tabs 03/13/23 diabetic shoe lift #1 ea 03/14/23 diabetic shoes #2 ea 03/14/23 amlodipine 10 mg tablet 10 mg PO BEDTIME #90 tabs 03/19/23 clopidogrel 75 mg tablet (Plavix) 75 mg PO DAILY #30 tabs 03/28/23 doxycycline hyclate 100 mg tablet 100 mg PO BID 10 days #20 tabs 03/28/23 Allergies Allergy/AdvReac Type Severity Reaction Status Date / Time No Known Allergies Allergy Verified 03/22/23 08:39 Review of Systems 2 Review of Systems: Constitutional : No Fever, No Chills ENT/Mouth : No sore throat, No Rhinorrhea, No Swallowing Difficulty Eyes: No Eye Pain, No Swelling, No Redness Cardiovascular : pos Chest Pain, positive SOB, pos Orthopnea, positive Edema Respiratory : No Cough, No Sputum, No Wheezing, positive dyspnea Gastrointestinal : No Nausea, No Vomiting, No Diarrhea, No abdominal Pain, No Hematochezia, No Melena Genitourinary : No Dysuria, No Urinary Frequency, No Hematuria Musculoskeletal : No joint pain, No Myalgias Skin : No Skin Lesions, No rash Neuro : No Weakness, No Numbness, No Dizziness, No Headache Psych : No Anxiety/Panic, No Depression All other systems reviewed and are negative PMFSH Past Medical History Attestation statement: The following information was validated with the patient. Source: old records reviewed Onset Date is defined in the Problem List Problems that require an onset date and time if occurred within 24 hrs of arrival to the ED Aortic Dissection and Rupture; Neurologic impairment; Cardiopulmonary Arrest; Endotracheal Intubation; Insertion or Replacement of Mechanical Circulatory Assist Device Medical History CHF (congestive heart failure) Heel ulcer Tobacco abuse Impacted cerumen of both ears Epidermoid cyst of skin of cheek Mass of face Allergic rhinitis Trigger finger, right middle finger Fracture of distal end of left radius with routine healing Superficial abrasion Pneumonia due to COVID-19 virus Acute hypoxemic respiratory failure due to COVID-19 Distal radius fracture, right Renal insufficiency Trigger finger, right middle finger Respiratory tract infection Aortic stenosis Preoperative clearance Iliac artery stenosis, 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 History of renal calculi Compression fracture of L1 lumbar vertebra Infective endocarditis Glaucoma Left carotid stenosis GERD (gastroesophageal reflux disease) Pulmonary nodule Cardiomyopathy Congestive heart failure Overweight (BMI 25.0-29.9) Carotid artery stenosis PVD (peripheral vascular disease) Dyslipidemia Hypertension CAD (coronary artery disease) Diabetic retinopathy associated with type 2 diabetes mellitus Diabetic polyneuropathy associated with type 2 diabetes mellitus CKD stage 3 due to type 2 diabetes mellitus Diabetic 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 diabetes mellitus 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 Surgical History Hx of shoulder surgery Hx of coronary artery bypass graft Hx of cataract removal with insertion of prosthetic lens Hx of tonsillectomy Hx of appendectomy Hx of arthroscopy of right knee Family History Family History Father Stomach cancer Mother Diabetes Brother Prostate abscess Social History Social History Household Members: Significant Other Housing: Apartment Alcohol intake: never Patient Tobacco Use Status: Never used Tobacco Tobacco use type: Cigarette Cigarette Packs Per Day: 0.25 Cigarettes Per Day: 3 Years Smoked: 65 Smoked in Last 30 Days: No e-Cigarette/Vaping Use: Never Used Second Hand Smoke Exposure: Yes Advance Directives: Yes Advance Directives on File: Yes Advance Directives Date on File: 06/08/21 service: No Current occupational status: 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 Cognitive needs: No Hearing needs: No Vision needs: No Physical Exam 2 Vital Signs: Vital Signs: Last Vital Signs Temp 97.9 F 04/10/23 06:27 Pulse 72 04/10/23 10:48 Resp 22 H 04/10/23 10:48 BP 165/69 H 04/10/23 10:48 Pulse Ox 94 04/10/23 10:48 O2 Del Method Nasal Cannula 04/10/23 10:48 O2 Flow Rate 2 04/10/23 09:25 BMI result Body Mass Index 30.6 Appearance: Alert. Oriented X3. No acute distress. Eyes: Pupils equal, round and reactive to light. ENT: Pharynx normal. Neck: Normal inspection. Neck supple. CVS: Normal heart rate and rhythm. Pulses normal. Respiratory: No respiratory distress. Breath sounds rales both bases Abdomen: Soft and nontender. Skin: Skin warm and dry. pale skin color. Normal skin turgor. Extremities: 2+ pitting lower extremity edema. No calf ttp Neuro: Oriented X 3. No motor deficit. No sensory deficit. Medications Administered Discontinued Medications Generic Name Dose Route Start Last Admin Trade Name Osiris PRN Reason Stop Dose Admin Furosemide 40 mg 04/10/23 07:10 04/10/23 07:31 Furosemide 40 Mg/4 Ml Vial IVPUSH 04/10/23 07:11 40 mg STAT STA Administration Protocol Medical Decision Making Medical Decision Making [facility] Narrative: 77 yo male PMH of anemia, depression, CKD, DM, CHF with preserved EF, CAD, HTN, HLD, PVD, moderate aortic valve stenosis, s/p R hip IMN on 12/10 sp fall for intertrochanteric fracture, NSVT, pneumonia, recent admit 03/02 - 03/11 for bradycardia, R heel ulcer here with MCCONNELL, rales, hypoxia, chest tightness, orthopnea and LE edema - at this time will need basic labs, BNP, troponin x 2. He denies infectious symptoms so doubt pneumonia. Will send off COVID swab. I am ordered IV lasix as well. Possible CHF, bronchitis, ACS, lower probability VTE but will need ddimer - has CRI so VQ scan will need to be ordered. Differential Diagnosis Differential Diagnoses: The differential diagnosis associated with the presentation includes Possible CHF, bronchitis, ACS, lower probability VTE Admission/Observation Consideration of admission/observation: Escalation of care including admission/observation considered given hypoxia will admit for diuresis Consult Healthcare Provider Management of the patient was discussed with: Hospitalist (will admit) Lab Data [facility] Lab Attestation statement: I reviewed the patient's lab results. 04/10/23 06:27 04/10/23 06:27 Labs: Lab Results 04/10/23 04/10/23 Range/Units 06:27 07:26 WBC 9.4 (4.8-10.8) X10*3/uL RBC 3.47 L (4.60-5.80) X10*6/uL Hgb 10.9 L (14.0-18.0) g/dl Hct 32.4 L (42.0-52.0) % MCV 93.4 (80.0-98.0) fL MCH 31.4 (27.0-33.0) pg MCHC 33.6 (31.0-36.0) g/dl RDW 14.9 (11.0-16.0) % Plt Count 223 (160-400) X10*3/uL MPV 9.8 (9.4-12.4) fL Immature Gran % (Auto) 0.2 (0.0-0.4) % Neut % (Auto) 63.2 (45-73) % Lymph % (Auto) 23.9 (20-40) % Dickenson % (Auto) 8.5 (2-11) % Eos % (Auto) 3.4 (0-4) % Baso % (Auto) 0.8 (0-2) % Lymph # (Auto) 2.3 (1.2-4.9) X10*3/uL Dickenson # (Auto) 0.8 (0.1-1.2) X10*3/uL Eos # (Auto) 0.3 (0.0-0.4) X10*3/uL Baso # (Auto) 0.1 (0.0-0.2) X10*3/uL Abs Immat Gran (auto) 0.02 (0.00-0.03) X10*3/uL Absolute Neuts (auto) 6.0 (2.0-8.3) x10*3/uL Absolute Nucleated RBC 0.000 (0.0-0.012) X10*3/uL Nucleated RBC % (auto) 0.0 (0.0-0.2) /100WBC PT 12.2 (11.1-13.3) SEC INR 1.0 (0.9-1.1) D-Dimer High Sensitivty 439 NG/ML Sodium 143 (135-145) mmol/L Potassium 3.8 (3.3-5.1) mmol/L Chloride 107 (96-108) mmol/L Carbon Dioxide 26 (22-29) mmol/L Anion Gap 14 (12-20) BUN 19 H (9-16) mg/dL Creatinine 1.45 H (0.5-1.4) mg/dL Estim Creat Clear Calc 43.1 Estimated GFR 47 Random Glucose 215 H (60-115) mg/dL Calcium 9.6 D (8.4-10.2) mg/dL Total Bilirubin 0.6 (0.0-1.0) mg/dL AST 19 (5-37) U/L ALT 19 (0-40) U/L Alkaline Phosphatase 128 H (39-117) U/L Troponin I High Sens 16.9 16.8 (<3.5-35.0) ng/L B-Natriuretic Peptide 228 H (<100) pg/mL Total Protein 7.9 (6.5-8.0) g/dL Albumin 3.9 (3.5-5.0) g/dL COVID-19 (RAVEN) Negative (Negative) COVID-19 Clin Com See Note Independent Interpretation I performed an independent interpretation of an: EKG and Plain X-Ray (CHF) Interpretation: Rate: 80 Rhythm: NSR Newman: normal Normal P waves. Normal ANURAG. Normal QRS complex. ST T wave : nonspecific ST T wave changes inf leads, poor R wave progression, no ALESSANDRA qTC: 452 prior studies: no sig ischemia The study has been interpreted contemporaneously by me. . Radiology Impression Discussion of test interpretation with radiology: I have reviewed the radiologist's reading. Independent Historian Clinical information obtained from an independent historian. History obtained from or confirmed by: EMS External Record Review External record reviewed: Inpatient record Discharge Plan Discharge Clinical Impression: Hypoxia CHF (congestive heart failure) Qualifiers: Heart failure type: unspecified Heart failure chronicity: acute on chronic Q ualified Code(s): I50.9 - Heart failure, unspecified Patient Disposition: Admitted As Inpatient Prescriptions: No Action (DME) pen needle, diabetic [BD Martina 2nd Gen Pen Needle] 32 gauge x 5/32 needle See Rx Instructions .MEDSUPPLY Qty: 400 4RF Rx Instructions: 5 times a day (DME) hospital bed See Rx Instructions .Route .MEDSUPPLY Qty: 1 0RF Rx Instructions: As directed (DME) HOSPITAL BED See Rx Instructions .Route .MEDSUPPLY Qty: 1 0RF Rx Instructions: As directed nicotine 14 mg/24 hr patch 24 hour 1 patch transdermal DAILY Qty: 28 0RF sennosides-docusate sodium [Senna-S] 8.6-50 mg tablet 2 tab-cap PO BEDTIME 30 Days Qty: 60 2RF amiodarone 200 mg tablet 200 mg PO DAILY Qty: 30 5RF (DME) diabetic shoe lift 1 inch See Rx Instructions .Route .MEDSUPPLY Qty: 1 0RF Rx Instructions: As directed (DME) diabetic shoes See Rx Instructions .Route .MEDSUPPLY Qty: 2 0RF Rx Instructions: As directed amlodipine 10 mg tablet 10 mg PO BEDTIME Qty: 90 0RF acetaminophen [Tylenol Extra Strength] 500 mg tablet 500 mg PO Q6H PRN (Reason: pain or fever) Qty: 20 0RF dorzolamide-timolol 22.3-6.8 mg/mL drops 1 drp ophthalmic (eye) BID Tremfya 100 mg/mL auto-injector 100 mg subcut Q8W multivitamin Tablet 1 tab PO BEDTIME ascorbic acid (vitamin C) 500 mg Tablet 500 mg PO BEDTIME brimonidine 0.15 % drops 1 drp ophthalmic (eye) BID aspirin 81 mg tablet,delayed release (DR/EC) 81 mg PO BEDTIME insulin lispro [Humalog KwikPen Insulin] 100 unit/mL insulin pen 1 sliding scale dose subcut TIDAC Rx Instructions: before meals as directed rosuvastatin 40 mg tablet 40 mg PO BEDTIME cholecalciferol (vitamin D3) 25 mcg (1,000 unit) tablet 25 mcg PO BEDTIME insulin degludec 100 unit/mL (3 mL) insulin pen 20 unit subcut BEDTIME docusate sodium 100 mg Capsule 200 mg PO DAILY Qty: 30 0RF Santyl 250 unit/gram ointment 1 appl topical DAILY Trulicity 1.5 mg/0.5 mL pen injector 1.5 mg subcut PONCE@0900 furosemide 40 mg Tablet 40 mg PO DAILY Qty: 30 0RF Protocol: Hold for SBP< HOLD for SBP < : 90 isosorbide mononitrate 30 mg Tablet Extended Release 24 Hr 30 mg PO DAILY Qty: 30 0RF Protocol: Hold for SBP< HOLD for SBP < : 90 doxycycline hyclate 100 mg tablet 100 mg PO BID 10 Days Qty: 20 0RF clopidogrel [Plavix] 75 mg tablet 75 mg PO DAILY Qty: 30 0RF (DME) FreeStyle Lite Strips Strip See Rx Instructions .ROUTE .MEDSUPPLY Qty: 150 11RF Rx Instructions: As directed four times a day (DME) 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 meter [FreeStyle Jackson Lite] Kit See Rx Instructions .ROUTE .MEDSUPPLY Qty: 1 0RF Rx Instructions: As directed (DME) lancets [FreeStyle Lancets] 28 gauge misc See Rx Instructions .ROUTE .MEDSUPPLY Qty: 100 3RF Rx Instructions: As directed check BS QD gabapentin 300 mg capsule 300 mg PO BEDTIME Qty: 90 2RF
[2023-04-10] MEDS: Furosemide 40 MG/4 ML VIAL IVPUSH ×2 (07:31→18:28)
--- NOTE | 2023-04-10 07:41 | PC.NURSE ---
iv lasix given as documented, pt denies chest pain at this time. current b/p 155/64 HR 78
[2023-04-10 07:51] LABS: Prothrombin Time 12.2 SEC (11.1-13.3); Troponin-I High Sensitivity 16.8 ng/L (<3.5-35.0)
[2023-04-10 07:53] LABS: COVID-19 Test Negative (Negative); IDNOW Serial# 08D9AD1C
[2023-04-10 08:23] LABS: D Dimer High Sensitivity 439 NG/ML
--- NOTE | 2023-04-10 09:53 | PC.NURSE ---
pt's Abigail [phone] called for update. pt aware.
--- NOTE | 2023-04-10 10:22 | PC.NURSE ---
pt in Nuc Med at this time. will assess on return to his room.
--- NOTE | 2023-04-10 10:53 | PC.NURSE ---
Addendum entered by Meena Haq RN 04/10/23 10:57: pt pulled up in bed, warm blanket given, call bed and urinal in close reach. Original Note: pt back from [facility], denies pain. no apparent distress. pt's is at his bedside.
--- NOTE | 2023-04-10 10:56 | MHC.EDTECH ---
PT voided 1450 mL urine.
--- NOTE | 2023-04-10 11:07 | PC.NURSE ---
this rn spoke with Abigail (pt's ) via cell phone to update her on his admission status. pt aware of plan to admit.
--- NOTE | 2023-04-10 11:11 | P.HPHOSP_ITS ---
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 Patient states symptoms began last night when he noticed he was having difficulty breathing while walking across the room. Also endorses SOB with rest and othopnea, as well as ?a little bit of lower leg edema. Patient also complaining of intermittent ?burning? sensation and sharp and stabbing chest pain, substernal, nonradiating. No clear exacerbating or relieving factors Pain and SOB were worse this morning which prompted call to EMS. Patient was given nitro and aspirin by EMS, who noted he was satting in the 70s or 80s. Patient does not carry pulmonary diagnosis and is not on home O2. Patient does not carry pulmonary diagnosis, not on any home inhalers, and not home O2. However, patient has 40+ pack year smoking history, quit smoking 2 months ago. Of note, pt was recently admitted to the hospital on 03/22/2023-03/28/2023 for infected pressure ulcer on right heel with sepsis. Patient underwent an angioplasty of right superficial femoral artery by vascular surgery. In the ED pt was afebrile, but tachypneic up to 22 and hypertensive up to 165/69, initially satting at 90% on RA, improved to 94% on 2 L NC. Labs were significant for stable normocytic anemia 10.9/32.4, elevated D-dimer of 439, troponin 16.9 with repeat flat at 16.8, and BNP elevated at 228. No leukocytosis. E no electrolyte abnormalities. Renal function baseline. CXR showed findings suspicious for mild to moderate pulmonary edema with small bilateral pleural effusions. Pulmonary perfusion imaging did not find any evidence for pulmonary thromboembolism. EKG demonstrated sinus rhythm with PACs and aberrant conduction, but no evidence of significant ST elevations or depressions. Pt was treated with IV Lasix. Pt will be admitted to the hospital for treatment further evaluation of acute hypoxic respiratory failure in the setting of acute decompensated CHF exacerbation. Review of Systems 2 Review of Systems: SOB, MCCONNELL Nonproductive cough Orthopnea Lower leg edema Intermittent burning/sharp, stabbing substernal chest pain Denies nausea, vomiting, abdominal pain PMFSH Medical History CHF (congestive heart failure) Heel ulcer Tobacco abuse Impacted cerumen of both ears Epidermoid cyst of skin of cheek Mass of face Allergic rhinitis Trigger finger, right middle finger Fracture of distal end of left radius with routine healing Superficial abrasion Pneumonia due to COVID-19 virus Acute hypoxemic respiratory failure due to COVID-19 Distal radius fracture, right Renal insufficiency Trigger finger, right middle finger Respiratory tract infection Aortic stenosis Preoperative clearance Iliac artery stenosis, 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 History of renal calculi Compression fracture of L1 lumbar vertebra Infective endocarditis Glaucoma Left carotid stenosis GERD (gastroesophageal reflux disease) Pulmonary nodule Cardiomyopathy Congestive heart failure Overweight (BMI 25.0-29.9) Carotid artery stenosis PVD (peripheral vascular disease) Dyslipidemia Hypertension CAD (coronary artery disease) Diabetic retinopathy associated with type 2 diabetes mellitus Diabetic polyneuropathy associated with type 2 diabetes mellitus CKD stage 3 due to type 2 diabetes mellitus Diabetic 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 diabetes mellitus 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 Family History Father Stomach cancer Mother Diabetes Brother Prostate abscess Surgical History Hx of shoulder surgery Hx of coronary artery bypass graft Hx of cataract removal with insertion of prosthetic lens Hx of tonsillectomy Hx of appendectomy Hx of arthroscopy of right knee Social History Household Members: Spouse Housing: Apartment Do you presently have visiting nurse or other home services: Yes Alcohol intake: never Patient Tobacco Use Status: Never used Tobacco Tobacco use type: Cigarette Cigarette Packs Per Day: 0.25 Cigarettes Per Day: 3 Years Smoked: 65 Smoked in Last 30 Days: No e-Cigarette/Vaping Use: Never Used Second Hand Smoke Exposure: Yes Use of substances other than those prescribed or required for medical reasons: No Currently Displaying Signs/Symptoms of Drug Intoxication Withdrawal: No Have you been hit, kicked, punched, or otherwise hurt by someone within the past year? If so, by whom?: No Do you feel safe in your current relationship?: Yes Is there a partner from a previous relationship who is making you feel unsafe now?: No Are you made to feel afraid or neglected: No Yazidism Healthcare Practices: faith Advance Directives: Yes Advance Directives on File: Yes Advance Directives Date on File: 06/08/21 Do you have thoughts of harming others: None Do you have a plan to hurt others: No Plan Recently lost weight without trying: No Nutrition Risks: No Nutritional Risk service: No Current occupational status: 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 Cognitive needs: No Hearing needs: No Vision needs: No Meds Allergies Allergy/AdvReac Type Severity Reaction Status Date / Time No Known Allergies Allergy Verified 03/22/23 08:39 Home Medications Medication Instructions Recorded Confirmed Last Taken Type ascorbic acid (vitamin C) 500 mg 500 mg PO BEDTIME 06/07/21 04/10/23 03/21/23 History tablet dorzolamide 22.3 mg-timolol 6.8 1 drp ophthalmic (eye) BID 06/07/21 04/10/23 03/22/23 06:00 History mg/mL eye drops guselkumab 100 mg/mL subcutaneous 100 mg subcut Q8W 06/07/21 04/10/23 3 Weeks Ago History auto-injector (Tremfya) ~03/01/23 multivitamin 1 tab PO BEDTIME 06/07/21 04/10/23 03/21/23 History aspirin 81 mg tablet,delayed 81 mg PO BEDTIME 12/09/22 04/10/23 03/21/23 History release brimonidine 0.15 % eye drops 1 drp ophthalmic (eye) BID 12/09/22 04/10/23 03/22/23 06:00 History cholecalciferol (vitamin D3) 25 25 mcg PO BEDTIME 12/09/22 04/10/23 03/21/23 History mcg (1,000 unit) tablet insulin degludec 100 unit/mL (3 20 unit subcut BEDTIME 12/09/22 04/10/23 03/21/23 History mL) subcutaneous pen insulin lispro 100 unit/mL 1 sliding scale dose subcut TIDAC 12/09/22 04/10/23 03/02/23 History subcutaneous pen (Humalog KwikPen (U-100) Insulin) rosuvastatin 40 mg tablet 40 mg PO BEDTIME 12/09/22 04/10/23 03/21/23 History collagenase clostridium histo. 250 1 appl topical DAILY 03/03/23 04/10/23 03/02/23 History unit/gram topical ointment (Santyl) dulaglutide 1.5 mg/0.5 mL 1.5 mg subcut PONCE@0900 03/03/23 04/10/23 03/16/23 History subcutaneous pen injector (Trulicity) Physical Exam 2 Vital Signs and Narrative: Vital Signs: Last Vital Signs Temp 97.9 F 04/10/23 06:27 Pulse 72 04/10/23 10:48 Resp 22 H 04/10/23 10:48 BP 165/69 H 04/10/23 10:48 Pulse Ox 94 04/10/23 10:48 O2 Del Method Nasal Cannula 04/10/23 10:48 O2 Flow Rate 2 04/10/23 09:25 BMI result Body Mass Index 30.6 Constitutional: Alert, in no acute distress. Mental Status: Oriented to person, place and time. Eyes: Pupils are equal, round, and reactive to light. Ear, Nose, and Throat: Oropharynx clear, mucous membranes moist. Ears and nose without deformities. Trachea midline. Respiratory: Clear to auscultation bilaterally. No wheezing, rales, or rhonchi appreciated. Cardiovascular: S1, S2. 2/6 systolic murmur heard at right sternal border. Gastrointestinal: Abdomen soft, non-tender, non-distended. Normal bowel sounds. Neurologic: Cranial nerves II-XII are grossly intact bilaterally. No focal neurological deficits. Moves all extremities spontaneously. Skin: Warm, dry. Musculoskeletal: No cyanosis or clubbing. Extremities: 1+ bilateral edema in ankles and feet. Healing right heel wound Psychiatric: Normal mood and affect. Results Labs 04/11/23 07:03 04/11/23 07:03 Labs: Laboratory Results - last 24 hr 04/10/23 04/10/23 06:27 07:26 MCV 93.4 MCH 31.4 MCHC 33.6 RDW 14.9 Plt Count 223 MPV 9.8 Immature Gran % (Auto) 0.2 Neut % (Auto) 63.2 Lymph % (Auto) 23.9 [place] % (Auto) 8.5 Eos % (Auto) 3.4 Baso % (Auto) 0.8 Lymph # (Auto) 2.3 [place] # (Auto) 0.8 Eos # (Auto) 0.3 Baso # (Auto) 0.1 Abs Immat Gran (auto) 0.02 Absolute Neuts (auto) 6.0 Absolute Nucleated RBC 0.000 Nucleated RBC % (auto) 0.0 PT 12.2 INR 1.0 D-Dimer High Sensitivty 439 Anion Gap 14 Estim Creat Clear Calc 43.1 Estimated GFR 47 Random Glucose 215 H Calcium 9.6 D Total Bilirubin 0.6 AST 19 ALT 19 Alkaline Phosphatase 128 H B-Natriuretic Peptide 228 H Total Protein 7.9 Albumin 3.9 COVID-19 (RAVEN) Negative COVID-19 Clin Com See Note Imaging Radiologist's Impressions: Impressions Chest X-Ray 04/10/23 06:35 IMPRESSION: *Findings suspicious for mild-moderate pulmonary edema. *Small bilateral pleural effusions. Pulmonary Perfusion Imaging 04/10/23 10:35 IMPRESSION: Based on perfusion only modified PIOPED 2 criteria, pulmonary thromboembolism is considered absent. 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 Acute hypoxic respiratory failure in the setting of acute decompensated HFpEF Patient with increased SOB, dyspnea, orthopnea, mild LLE, CXR with evidence of vascular congestion and pleural effusions, satting at 88% on RA Unclear etiology: pt states compliant with home meds, no recent illness, no known arrhythmia, quit smoking 2 months ago Patient given 40 mg Lasix IV in ED Will treat with Lasix 40 mg IV b.i.d. Titrate supplemental O2>92, wean as tolerated Echo 12/09/2022 found EF 55-60% Follow lytes, mag, I/O Daily weights, low-salt diet Monitor on telemetry Right heel wound s/p angioplasty of right SFA on 03/26/2023 Healing well, no signs of cellulitis/infection Wound dressing changes daily Continue aspirin, Plavix F/U outpatient with vascular surgery HTN Continue amlodipine Frequenct PVCs Continue amiodorone (initiated in February due to bradycardia/PVCs) Insulin-dependent diabetes type 2 with [facility]neuropathy [facility] sliding scale insulin, Lantus Diabetic diet Continue gabapentin Diabetic retinopathy, unspecified Continue eyedrops CAD/ HLD/cardiomyopathy Continue ASA, isosorbide, statin CKD stage 3 Renal function baseline Anemia of chronic disease H&H above transfusion threshold, stable Full Code Attending:?Dr. Saeed DVT Prophylaxis: Heparin Pt will require a hospitalization of at least two nights for treatment of?acute hypoxic respiratory failure in the setting of acute decompensatedHFpEF exacerbation. Patient require treatment with supplemental O2, IV Lasix, and close monitoring of both respiratory status and labs. Quality Stroke Does the patient have a stroke diagnosis?: No VTE Prior VTE?: No VTE Risk Level:: Medical - moderate - high VTE Device Contraindication: Treatment Not Indicated VTE Drug Contraindication: N/A - Med Ordered
--- NOTE | 2023-04-10 11:24 | PHA.MEDREC ---
Pharmacy Consult ? Medication Reconciliation Pharmacy has completed the medication reconciliation. Pt recently discharged on 03/28/23. Utilized claim history and discharge packet to confirm meds. [facility] [place] [facility] outpatient Pharmacy confirmed that Plavix was delivered to patient at discharge as well.
[2023-04-10] MEDS: Heparin Sodium,Porcine 5,000 UNIT/ML VIAL 5000 UNIT SUBCUT ×2 (13:18→23:56)
--- NOTE | 2023-04-10 13:35 | PC.NURSE ---
Heparin given as documented, vss. denies pain. pt boosted up in bed, lunch given.
[2023-04-10] MEDS: 0.9 % Sodium Chloride Flush 3 ML SYRINGE IVFLUSH ×2 (17:08→21:01)
[2023-04-10 18:18] LABS: Glucose, Whole Blood 248 mg/dL (60-115)
[2023-04-10] MEDS: Insulin Lispro 100 UNIT/ML 3 ML VIAL SUBCUT ×2 (18:28→21:00)
[2023-04-10 20:55] LABS: Glucose, Whole Blood 245 mg/dL (60-115)
[2023-04-10] MEDS: Gabapentin 300 MG CAPSULE PO (20:59)
[2023-04-10] MEDS: Multivitamin TABLET 1 TAB PO (21:00)
[2023-04-10] MEDS: Cholecalciferol (Vitamin D3) 25 MCG TABLET PO (21:00)
[2023-04-10] MEDS: Insulin Glargine,Hum.rec.anlog 100 UNIT/ML 10 ML VIAL 14 UNIT SUBCUT (21:00)
[2023-04-10] MEDS: amLODIPine Besylate 10 MG TABLET PO (21:00)
[2023-04-10] MEDS: Aspirin Enteric Coated 81 MG TABLET.DR PO (21:00)
[2023-04-10] MEDS: Sennosides/Docusate Sodium TABLET 2 TAB PO (21:00)
[2023-04-10] MEDS: Atorvastatin Calcium 80 MG TABLET PO (21:00)
[2023-04-10] MEDS: Ascorbic Acid 500 MG TABLET PO (21:00)
[2023-04-11 03:26] VITALS: BP 165/73; PULSE 78; RESP 18; TEMP 37.5; O2SAT 93
[2023-04-11 07:42] LABS: Hemoglobin 10.3 g/dl (14.0-18.0); Mean Corpuscular HGB Conc 33.2 g/dl (31.0-36.0); Mean Corpuscular Hemoglobin 30.9 pg (27.0-33.0); Mean Corpuscular Volume 93.1 fL (80.0-98.0); Mean Platelet Volume 10.3 fL (9.4-12.4); Platelet Count 225 X10*3/uL (160-400); Red Blood Count 3.33 X10*6/uL (4.60-5.80); Red Cell Distribution Width 14.9 % (11.0-16.0); White Blood Count 9.4 X10*3/uL (4.8-10.8)
[2023-04-11 07:52] LABS: Glucose, Whole Blood 158 mg/dL (60-115)
[2023-04-11 08:00] VITALS: BP 142/63; PULSE 95; RESP 20; TEMP 36.6; O2SAT 93
[2023-04-11 08:01] LABS: Anion Gap 16 (12-20); Blood Urea Nitrogen 20 mg/dL (9-16); Calcium 9.5 mg/dL (8.4-10.2); Carbon Dioxide 28 mmol/L (22-29); Chloride 105 mmol/L (96-108); Creatinine Clr Calc Pharmacy 40.6; Estimated Glomerular Filt Rate 44; Glucose Random 169 mg/dL (60-115); Magnesium 1.5 mg/dL (1.6-2.6); Potassium 4.1 mmol/L (3.3-5.1); Sodium 145 mmol/L (135-145)
[2023-04-11] MEDS: Insulin Lispro 100 UNIT/ML 3 ML VIAL SUBCUT ×3 (08:30→17:04)
[2023-04-11] MEDS: Nicotine 14 MG PATCH.TD24 TRANSDERMA (08:31)
[2023-04-11] MEDS: Docusate Sodium 100 MG CAPSULE 200 MG PO (08:32)
[2023-04-11] MEDS: Isosorbide Mononitrate 30 MG TAB.ER.24H PO (08:32)
[2023-04-11] MEDS: Furosemide 40 MG/4 ML VIAL IVPUSH (08:32)
[2023-04-11] MEDS: Clopidogrel Bisulfate 75 MG TABLET PO (08:32)
[2023-04-11] MEDS: Amiodarone HCL 200 MG TABLET PO (08:38)
[2023-04-11] MEDS: 0.9 % Sodium Chloride Flush 3 ML SYRINGE IVFLUSH ×2 (08:39→17:04)
[2023-04-11 11:13] LABS: Glucose, Whole Blood 177 mg/dL (60-115)
--- NOTE | 2023-04-11 11:51 | HO.PM.IMPN ---
Subjective Subjective Date of Service: 04/12/23 Interval History: he is feeling better, no sob, Physical Exam Vital Signs: Vital Signs: Last Vital Signs Temp 97.8 F 04/11/23 08:00 Pulse 95 04/11/23 08:00 Resp 20 04/11/23 08:00 BP 142/63 H 04/11/23 08:00 Pulse Ox 93 04/11/23 08:00 O2 Del Method Nasal Cannula 04/11/23 08:00 O2 Flow Rate 2 04/11/23 08:00 BMI result Body Mass Index 30.2 Const: Other: General: AO X 3, no acute distress Resp: CTA bilateral CVS: S1,S2,RRR GI: +BS, NT, no distention Skin: No rash Neuro: motor grossly intact Psych: appropriate affect Objective Data Active Medications Acetaminophen (Acetaminophen 325 Mg Tablet) 650 mg PO Q6H PRN PRN Reason: Pain, Mild (Pain Scale 1-3) Albuterol/Ipratropium (Albuterol/Iprat 2.5/0.5mg 3 Ml Ampul.Neb) 3 ml INHALE RQ4H WHILE AWAKE PRN PRN Reason: Shortness of Breath/Wheezing Amiodarone HCl (Amiodarone Hcl 200 Mg Tablet) 200 mg PO DAILY [facility] Last Admin: 04/11/23 08:38 Dose: 200 mg Documented By: KAREEN Amlodipine Besylate (Amlodipine Besylate 10 Mg Tablet) 10 mg PO BEDTIME [facility]; Protocol Last Admin: 04/10/23 21:00 Dose: 10 mg Documented By: COURTNEY Ascorbic Acid (Ascorbic Acid 500 Mg Tablet) 500 mg PO BEDTIME [facility] Last Admin: 04/10/23 21:00 Dose: 500 mg Documented By: COURTNEY Aspirin (Aspirin Enteric Coated 81 Mg Tablet.) 81 mg PO BEDTIME [facility] Last Admin: 04/10/23 21:00 Dose: 81 mg Documented By: COURTNEY Atorvastatin Calcium (Atorvastatin Calcium 80 Mg Tablet) 80 mg PO BEDTIME [facility] Last Admin: 04/10/23 21:00 Dose: 80 mg Documented By: COURTNEY Benzonatate (Benzonatate 100 Mg Capsule) 100 mg PO TID PRN PRN Reason: Cough Brimonidine Tartrate (Brimonidine Tartrate 0.2% Oph 5 Ml Bottle) 1 drop EYE-BOTH BID [facility] Last Admin: 04/11/23 08:39 Dose: Not Given Documented By: KAREEN Non-Admin Reason: Med Not Available Clopidogrel Bisulfate (Clopidogrel Bisulfate 75 Mg Tablet) 75 mg PO DAILY [facility] Last Admin: 04/11/23 08:32 Dose: 75 mg Documented By: KAREEN Dextrose (Dextrose 50 % 25 Gm/50 Ml Syringe) 25 gm IVPUSH Q15M PRN; Protocol PRN Reason: per Hypoglycemia Standing Ord. Docusate Sodium (Docusate Sodium 100 Mg Capsule) 100 mg PO DAILY PRN PRN Reason: Constipation Docusate Sodium (Docusate Sodium 100 Mg Capsule) 200 mg PO DAILY [facility] Last Admin: 04/11/23 08:32 Dose: 200 mg Documented By: KAREEN Dorzolamide/Timolol (Dorzolamide/Timolo 2.23%/0.68% 10 Ml Drbtl) 1 drop EYE-BOTH BID [facility] Last Admin: 04/11/23 08:39 Dose: Not Given Documented By: KAREEN Non-Admin Reason: Med Not Available Furosemide (Furosemide 40 Mg/4 Ml Vial) 40 mg IVPUSH BID@0900,1800 [facility]; Protocol Last Admin: 04/11/23 08:32 Dose: 40 mg Documented By: KAREEN Gabapentin (Gabapentin 300 Mg Capsule) 300 mg PO BEDTIME [facility] Last Admin: 04/10/23 20:59 Dose: 300 mg Documented By: COURTNEY Glucose (Glucose Gel 15 Gm Gel..Gram.) 15 gm PO Q15M PRN; Protocol PRN Reason: per Hypoglycemia Standing Ord. Heparin Sodium (Porcine) (Heparin Sodium,Porcine 5,000 Unit/Ml Vial) 5,000 unit SUBCUT Q12H [facility] Last Admin: 04/10/23 23:56 Dose: 5,000 unit Documented By: CIRO Insulin Glargine (Insulin Glargine,Hum.Rec.Anlog 100 Unit/Ml 10 Ml Vial) 14 unit SUBCUT BEDTIME [facility] Last Admin: 04/10/23 21:00 Dose: 14 unit Documented By: COURTNEY Insulin Human Lispro (Insulin Lispro 100 Unit/Ml 3 Ml Vial) 0 unit SUBCUT QIDACHS [facility]; Protocol Last Admin: 04/11/23 08:30 Dose: 2 unit Documented By: KAREEN Isosorbide Mononitrate (Isosorbide Mononitrate 30 Mg Tab.Er.24h) 30 mg PO DAILY [facility]; Protocol Last Admin: 04/11/23 08:32 Dose: 30 mg Documented By: KAREEN Melatonin (Melatonin 3 Mg Tablet) 6 mg PO BEDTIME PRN PRN Reason: Insomnia Multivitamins/Vitamin C (Multivitamin Tablet) 1 tab PO BEDTIME [facility] Last Admin: 04/10/23 21:00 Dose: 1 tab Documented By: COURTNEY Nicotine (Nicotine 14 Mg Patch.Td24) 14 mg TRANSDERMA DAILY [facility] Last Admin: 04/11/23 08:31 Dose: 14 mg Documented By: KAREEN Ondansetron HCl (Ondansetron Hcl 4 Mg/2 Ml Vial) 4 mg IVPUSH Q8H PRN PRN Reason: Nausea and Vomiting Senna/Docusate Sodium (Sennosides/Docusate Sodium Tablet) 2 tab PO BEDTIME [facility] Last Admin: 04/10/23 21:00 Dose: 2 tab Documented By: COURTNEY Sodium Chloride (0.9 % Sodium Chloride Flush 3 Ml Syringe) 3 ml IVFLUSH QSHIFT [facility] Last Admin: 04/11/23 08:39 Dose: 3 ml Documented By: KAREEN Vitamin D (Cholecalciferol (Vitamin D3) 25 Mcg Tablet) 25 mcg PO BEDTIME [facility] Last Admin: 04/10/23 21:00 Dose: 25 mcg Documented By: COURTNEY Labs 04/11/23 07:03 04/12/23 06:08 Labs: Laboratory Results - last 24 hr 04/10/23 04/10/23 04/11/23 18:13 20:52 07:03 MCV 93.1 MCH 30.9 MCHC 33.2 RDW 14.9 Plt Count 225 MPV 10.3 Absolute Nucleated RBC 0.000 Nucleated RBC % (auto) 0.0 Anion Gap 16 Estim Creat Clear Calc 40.6 Estimated GFR 44 POC Glucose 248 H 245 H Random Glucose 169 H Calcium 9.5 Magnesium 1.5 L 04/11/23 04/11/23 07:49 11:08 MCV MCH MCHC RDW Plt Count MPV Absolute Nucleated RBC Nucleated RBC % (auto) Anion Gap Estim Creat Clear Calc Estimated GFR POC Glucose 158 H 177 H Random Glucose Calcium Magnesium Assessment and Plan (1) Hypoxia: Status: Acute (2) CHF (congestive heart failure): Status: Acute Plan Pt is a 77-year-old male with a PMH significant for?CAD with hx of NSTEMI, PAD, HFpEF, hx of endocarditis, cardiomyopathy, HLD, 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 Acute hypoxic respiratory failure in the setting of acute decompensated HFpEF, improving -continue IV Lasix for one more day, monitor i/o, weight and K Right heel wound s/p angioplasty of right SFA on 03/26/2023 Healing well, no signs of cellulitis/infection Wound dressing changes daily Continue aspirin, Plavix F/U outpatient with vascular surgery HTN Continue amlodipine Frequenct PVCs Continue amiodorone (initiated in February due to bradycardia/PVCs) Insulin-dependent diabetes type 2 with polyneuropathy Hold Trulicity sliding scale insulin, Lantus Diabetic diet Continue gabapentin Diabetic retinopathy, unspecified Continue eyedrops CAD/ HLD/cardiomyopathy Continue ASA, isosorbide, statin CKD stage 3 Renal function baseline Anemia of chronic disease H&H above transfusion threshold, stable Full Code Attending:?Dr. Saeed DVT Prophylaxis: Heparin need for inpt: IV diuretics for acute heart failure Quality Stroke Does the patient have a stroke diagnosis?: No VTE Prior VTE?: No VTE Risk Level:: Medical - moderate - high VTE Device Contraindication: Treatment Not Indicated VTE Drug Contraindication: N/A - Med Ordered
[2023-04-11 11:59] VITALS: BP 119/52; PULSE 73; RESP 18; TEMP 36.3; O2SAT 96
[2023-04-11] MEDS: Heparin Sodium,Porcine 5,000 UNIT/ML VIAL 5000 UNIT SUBCUT (12:02)
[2023-04-11 13:23] VITALS: BMI 30.2
[2023-04-11] MEDS: Magnesium Sulfate/H2O 2 GM/50 ML PIGGYBACK IV (14:26)
--- NOTE | 2023-04-11 14:56 | MHC.CM.PN ---
Addendum entered by Tyesha Olea 04/12/23 14:01: [facility] ALSO PROVIDES OT SERVICES Addendum entered by Tyesha Olea 04/12/23 13:58: PT LIVES WITH HIS AND HAS A PRODUCTION CORRUGATOR 2X/WEEK HE IS ACTIVE WITH [facility] FOR PT AND SN HE USES A WALKER AT [facility] HCP ON FILE PCP: AAYUSH GUILLERMO Original Note: 04/11 [facility]MM HOME RESUME [facility] SERVICES. FAMILY TRANSPORT
[2023-04-11 15:57] LABS: Glucose, Whole Blood 181 mg/dL (60-115)
[2023-04-11 16:00] VITALS: BP 132/57; PULSE 80; RESP 16; TEMP 36.6; O2SAT 92
--- NOTE | 2023-04-11 16:22 | HO.WOUND ---
Wound Consult: Initial 77yr old male admitted to [facility] on?04/10/23 11:58 See progress notes and H&P for detailed history. Recent admissions and see by this medical technical writer for the right heel wound. Wound consult placed for Right Heel Pressure Injury Present on Admission. Pt reports and chart review supports pt visited outpt Wound Clinic - 1st and last visit 02/27/[address] Coffey and topical recommendation was made for Santyl. Outpt Wound Clinic notes report wound etiology as Diabetic Wound as Primary Etiology. At time of discharge patient should continue follow up care with outpt Wound Clinic and Dr. Acosta whom he follows with outpatient. The patient has not been back to the Wound Care Clinic - with recent readmissions he has had VNA services and continued using Santyl at home. Right Heel Etiology: Diabetic Wound POA Measurements: 1.4cm x 2cm x 0.2cm Wound Bed: Adherent moist fibrinous yellow lozada slough - depth appreciated - distal wound edge noted for pink moist tissue Drainage / Odor: No odor - yellow moist drainage Edges: ? irregular and epibole Jr wound: Mild erythema - No Induration No Fluctance noted Pain: Pt reports significant pain and tenderness when assessed Goals of Treatment: ? Alginate for autoytic debridement and moisture management - Follow up outpt wound clinic at time of d/c and Dr. Acosta Recommendations: 1. Turn and Reposition every 2 hours and as needed for patient comfort. 2. Off Load all bony prominences with use of pillows and heel boots if needed.? Apply Preventative foams where needed. ? 3. Monitor for incontinence and moisture control, use barrier creams when needed for prevention and treatment. 4. Provide adequate and supplemental nutrition. 5. Order low air loss mattress. Order Heel boot protector. 6. Maintain blood glucose levels per Providers orders. 7. Left Heel - Apply Foam dressing to protect from friction and aid in off loading pressure. Elevate off of bed surface with use of pilllow. 8. Right Heel - Elevate heel off of surface of bed Cleanse with normal saline, pat dry. ?Apply barrier wipe to the immediate jr wound, apply cut to size Durafiber [employer] cover with dry gauze, followed by ABD pad, gauze wrap. Change Daily. Re-consult wound care Nurse for wound deterioration or wound changes.
[2023-04-11 19:25] VITALS: BP 131/97; PULSE 72; RESP 20; TEMP 36.2; O2SAT 92
[2023-04-11 20:11] LABS: Glucose, Whole Blood 148 mg/dL (60-115)
[2023-04-11] MEDS: amLODIPine Besylate 10 MG TABLET PO (20:45)
[2023-04-11] MEDS: Atorvastatin Calcium 80 MG TABLET PO (20:45)
[2023-04-11] MEDS: Gabapentin 300 MG CAPSULE PO (20:45)
[2023-04-11] MEDS: Aspirin Enteric Coated 81 MG TABLET.DR PO (20:45)
[2023-04-11] MEDS: Sennosides/Docusate Sodium TABLET 2 TAB PO (20:45)
[2023-04-11] MEDS: Multivitamin TABLET 1 TAB PO (20:45)
[2023-04-11] MEDS: Ascorbic Acid 500 MG TABLET PO (20:45)
[2023-04-11] MEDS: Cholecalciferol (Vitamin D3) 25 MCG TABLET PO (20:45)
[2023-04-11] MEDS: Insulin Glargine,Hum.rec.anlog 100 UNIT/ML 10 ML VIAL 14 UNIT SUBCUT (20:46)
[2023-04-11 23:58] VITALS: BP 150/67; PULSE 76; RESP 20; TEMP 37.2; O2SAT 95
[2023-04-12] MEDS: Heparin Sodium,Porcine 5,000 UNIT/ML VIAL 5000 UNIT SUBCUT ×2 (02:04→11:48)
[2023-04-12] MEDS: 0.9 % Sodium Chloride Flush 3 ML SYRINGE IVFLUSH ×2 (02:08→09:28)
[2023-04-12 03:29] VITALS: BP 117/60; PULSE 71; RESP 20; TEMP 36.8; O2SAT 94
[2023-04-12 07:04] LABS: Anion Gap 14 (12-20); Blood Urea Nitrogen 24 mg/dL (9-16); Calcium 9.2 mg/dL (8.4-10.2); Carbon Dioxide 28 mmol/L (22-29); Chloride 105 mmol/L (96-108); Creatinine Clr Calc Pharmacy 39.1; Estimated Glomerular Filt Rate 42; Glucose Random 170 mg/dL (60-115); Potassium 3.8 mmol/L (3.3-5.1); Sodium 143 mmol/L (135-145)
[2023-04-12 07:28] LABS: Glucose, Whole Blood 148 mg/dL (60-115)
[2023-04-12 07:30] VITALS: BP 166/71; PULSE 75; RESP 19; TEMP 36.7; O2SAT 93
[2023-04-12] MEDS: Docusate Sodium 100 MG CAPSULE 200 MG PO (09:24)
[2023-04-12] MEDS: Amiodarone HCL 200 MG TABLET PO (09:27)
[2023-04-12] MEDS: Isosorbide Mononitrate 30 MG TAB.ER.24H PO (09:27)
[2023-04-12] MEDS: Clopidogrel Bisulfate 75 MG TABLET PO (09:27)
[2023-04-12] MEDS: Nicotine 14 MG PATCH.TD24 TRANSDERMA (09:27)
[2023-04-12] MEDS: Furosemide 40 MG TABLET PO (09:27)
[2023-04-12 11:20] VITALS: BP 140/64; PULSE 63; RESP 20; TEMP 36.4; O2SAT 94
[2023-04-12 11:37] LABS: Glucose, Whole Blood 202 mg/dL (60-115)
[2023-04-12] MEDS: Insulin Lispro 100 UNIT/ML 3 ML VIAL SUBCUT (11:48)
--- NOTE | 2023-04-12 12:46 | PM.DS ---
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 Patient states symptoms began last night when he noticed he was having difficulty breathing while walking across the room. Also endorses SOB with rest and othopnea, as well as ?a little bit of lower leg edema. Patient also complaining of intermittent ?burning? sensation and sharp and stabbing chest pain, substernal, nonradiating. No clear exacerbating or relieving factors Pain and SOB were worse this morning which prompted call to EMS. Patient was given nitro and aspirin by EMS, who noted he was satting in the 70s or 80s. Patient does not carry pulmonary diagnosis and is not on home O2. Patient does not carry pulmonary diagnosis, not on any home inhalers, and not home O2. However, patient has 40+ pack year smoking history, quit smoking 2 months ago. Of note, pt was recently admitted to the hospital on 03/22/2023-03/28/2023 for infected pressure ulcer on right heel with sepsis. Patient underwent an angioplasty of right superficial femoral artery by vascular surgery. In the ED pt was afebrile, but tachypneic up to 22 and hypertensive up to 165/69, initially satting at 90% on RA, improved to 94% on 2 L NC. Labs were significant for stable normocytic anemia 10.9/32.4, elevated D-dimer of 439, troponin 16.9 with repeat flat at 16.8, and BNP elevated at 228. No leukocytosis. E no electrolyte abnormalities. Renal function baseline. CXR showed findings suspicious for mild to moderate pulmonary edema with small bilateral pleural effusions. Pulmonary perfusion imaging did not find any evidence for pulmonary thromboembolism. EKG demonstrated sinus rhythm with PACs and aberrant conduction, but no evidence of significant ST elevations or depressions. Pt was treated with IV Lasix. Pt will be admitted to the hospital for treatment further evaluation of acute hypoxic respiratory failure in the setting of acute decompensated CHF exacerbation. Hospital course: Patient presented with shortness of breath worse with exertion and found to be in acute exacerbation of heart failure. He was treated with IV Lasix 40 mg twice with good effect and by the following day was feeling much veda, IV lasix has been transitioned to oral Lasix and will increase the dose from 40 mg daily to 60 mg dily. Fluid and salt restriction is advised. Home health services will be arranged for disease education and to unsure he understand his medicaiton. He is otherwise doing well and wishes to go home today Time Attestation Discharge coordination time: Greater than 30 minutes Quality: Safe Use of Opioids Does Pt have an Active Cancer Diagnosis on the Problem List?: No Quality: Stroke Does the patient have a stroke diagnosis?: No Physical Exam Vital Signs: Vital Signs: Last Vital Signs Temp 97.5 F 04/12/23 11:20 Pulse 63 04/12/23 11:20 Resp 20 04/12/23 11:20 BP 140/64 H 04/12/23 11:20 Pulse Ox 94 04/12/23 11:20 O2 Del Method Room Air 04/12/23 11:20 O2 Flow Rate 2 04/11/23 11:59 BMI result Body Mass Index 30.2 Const: Other: General: AO X 3, no acute distress Resp: CTA bilateral CVS: S1,S2,RRR GI: +BS, NT, no distention Skin: No rash Neuro: motor grossly intact Psych: appropriate affect DS: Data Data Completed and Pending Completed studies during hospitalization [Text1]: Procedures Dilation of Right Femoral Artery using Drug-Coated Balloon, Percutaneous Approach (03/22/23) Reposition Left Upper Femur with Intramedullary Internal Fixation Device, Percutaneous Approach (12/08/22) Transfusion of Nonautologous Red Blood Cells into Peripheral Vein, Percutaneous Approach (12/08/22) Labs on day of discharge: Laboratory Results - last 24 hr 04/11/23 04/11/23 04/12/23 15:54 19:27 06:08 Hold Purple Top SEE NOTE Sodium 143 Potassium 3.8 Chloride 105 Carbon Dioxide 28 Anion Gap 14 BUN 24 H Creatinine 1.59 H Estim Creat Clear Calc 39.1 Estimated GFR 42 POC Glucose 181 H 148 H Random Glucose 170 H Calcium 9.2 Magnesium 2.0 04/12/23 04/12/23 07:19 11:25 Hold Purple Top Sodium Potassium Chloride Carbon Dioxide Anion Gap BUN Creatinine Estim Creat Clear Calc Estimated GFR POC Glucose 148 H 202 H Random Glucose Calcium Magnesium Discharge Plan Discharge Anticipated Discharge Date/Time: 04/12/23 11:45 Patient Disposition: Home, Self-Care Discharge Diagnosis: Acute on chronic heart failure Referrals: Po,Marcia Overton MD [Primary Care Provider] - 1 Week Discharge Medications: New furosemide [Lasix] 20 mg tablet 20 mg PO QPM Qty: 30 2RF Rx Instructions: around 5 pm Continued (DME) pen needle, diabetic [BD Martina 2nd Gen Pen Needle] 32 gauge x 5/32 needle See Rx Instructions .MEDSUPPLY Qty: 400 4RF Rx Instructions: 5 times a day (DME) hospital bed See Rx Instructions .Route .MEDSUPPLY Qty: 1 0RF Rx Instructions: As directed (DME) HOSPITAL BED See Rx Instructions .Route .MEDSUPPLY Qty: 1 0RF Rx Instructions: As directed nicotine 14 mg/24 hr patch 24 hour 1 patch transdermal DAILY Qty: 28 0RF sennosides-docusate sodium [Senna-S] 8.6-50 mg tablet 2 tab-cap PO BEDTIME 30 Days Qty: 60 2RF amiodarone 200 mg tablet 200 mg PO DAILY Qty: 30 5RF (DME) diabetic shoe lift 1 inch See Rx Instructions .Route .MEDSUPPLY Qty: 1 0RF Rx Instructions: As directed (DME) diabetic shoes See Rx Instructions .Route .MEDSUPPLY Qty: 2 0RF Rx Instructions: As directed amlodipine 10 mg tablet 10 mg PO BEDTIME Qty: 90 0RF acetaminophen [Tylenol Extra Strength] 500 mg tablet 500 mg PO Q6H PRN (Reason: pain or fever) Qty: 20 0RF dorzolamide-timolol 22.3-6.8 mg/mL drops 1 drp ophthalmic (eye) BID Tremfya 100 mg/mL auto-injector 100 mg subcut Q8W multivitamin Tablet 1 tab PO BEDTIME ascorbic acid (vitamin C) 500 mg Tablet 500 mg PO BEDTIME brimonidine 0.15 % drops 1 drp ophthalmic (eye) BID aspirin 81 mg tablet,delayed release (DR/EC) 81 mg PO BEDTIME insulin lispro [Humalog KwikPen Insulin] 100 unit/mL insulin pen 1 sliding scale dose subcut TIDAC Rx Instructions: before meals as directed rosuvastatin 40 mg tablet 40 mg PO BEDTIME cholecalciferol (vitamin D3) 25 mcg (1,000 unit) tablet 25 mcg PO BEDTIME insulin degludec 100 unit/mL (3 mL) insulin pen 20 unit subcut BEDTIME docusate sodium 100 mg Capsule 200 mg PO DAILY Qty: 30 0RF Santyl 250 unit/gram ointment 1 appl topical DAILY Trulicity 1.5 mg/0.5 mL pen injector 1.5 mg subcut PONCE@0900 furosemide 40 mg Tablet 40 mg PO DAILY Qty: 30 0RF Protocol: Hold for SBP< HOLD for SBP < : 90 isosorbide mononitrate 30 mg Tablet Extended Release 24 Hr 30 mg PO DAILY Qty: 30 0RF Protocol: Hold for SBP< HOLD for SBP < : 90 clopidogrel [Plavix] 75 mg tablet 75 mg PO DAILY Qty: 30 0RF (DME) FreeStyle Lite Strips Strip See Rx Instructions .ROUTE .MEDSUPPLY Qty: 150 11RF Rx Instructions: As directed four times a day (DME) 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 meter [FreeStyle [place] Lite] Kit See Rx Instructions .ROUTE .MEDSUPPLY Qty: 1 0RF Rx Instructions: As directed (DME) lancets [FreeStyle Lancets] 28 gauge misc See Rx Instructions .ROUTE .MEDSUPPLY Qty: 100 3RF Rx Instructions: As directed check BS QD gabapentin 300 mg capsule 300 mg PO BEDTIME Qty: 90 2RF Discharge Orders: Discharge Order (Routine); Ordered 04/12/23 Ordered By: Curtis Saeed Diet: Diabetic diet Activity on Discharge: As tolerated Stand Alone Forms: Patient Portal Discharge page Care Plan Goals: Full recovery from heart failure exacerbation Health Concerns: Chronic heart failure Plan of Treatment: Take Lasix as directed (40 mg in the morning and 20 mg in the evening) continue taking all your other medications follow up with your Doctor in a week avoid drinking too much water, no more than 1200 ml a day limit salt intake and consider salt subtitutes weight yourself daily and if your weight goes over 2 Ib in 1 day, inform your doctor Assessment: see above Patient Instructions: Heart Failure (DC)
--- NOTE | 2023-04-12 14:00 | MHC.CM.PN ---
PT WILL DC HOME TODAY WITH RESUMPTION OF [facility] [employer] FAM[facility] TO TRANSPORT
== END 2023-04-12 16:42 | disposition home or self-care (01) | DRG 291 ==
LOC: HO.ED 10:58 → HO.EDOVER 12:30 → HO.IMC 19:29
PROVIDERS: Admitting Provider Student in an Organized Health Care Education/Training Program; Emergency Provider Emergency Medicine; PCP Internal Medicine; Visit Provider Internal Medicine
DX: I13.0 Hypertensive heart and chronic kidney disease with heart failure and stage 1 through stage 4 chronic kidney disease, or unspecified chronic kidney disease (principal); I50.33 Acute on chronic diastolic (congestive) heart failure; J96.01 Acute respiratory failure with hypoxia; L97.419 Non-pressure chronic ulcer of right heel and midfoot with unspecified severity; N18.30 Chronic kidney disease, stage 3 unspecified; E11.51 Type 2 diabetes mellitus with diabetic peripheral angiopathy without gangrene; I70.234 Atherosclerosis of native arteries of right leg with ulceration of heel and midfoot; E11.319 Type 2 diabetes mellitus with unspecified diabetic retinopathy without macular edema; I49.3 Ventricular premature depolarization; E78.5 Hyperlipidemia, unspecified; I42.9 Cardiomyopathy, unspecified; E11.22 Type 2 diabetes mellitus with diabetic chronic kidney disease; D63.1 Anemia in chronic kidney disease; I25.10 Atherosclerotic heart disease of native coronary artery without angina pectoris; E11.42 Type 2 diabetes mellitus with diabetic polyneuropathy; Z20.822 Contact with and (suspected) exposure to COVID-19; Z79.4 Long term (current) use of insulin; Z79.02 Long term (current) use of antithrombotics/antiplatelets; Z79.82 Long term (current) use of aspirin; Z79.85 Long-term (current) use of injectable non-insulin antidiabetic drugs; Z79.899 Other long term (current) drug therapy
CPT/HCPCS: 36415; 71045; 78580; 80048; 80053; 82947; 83735; 83880; 84484; 85025; 85027; 85379; 85610; 87635; 93005; 99285; A9540; J1644; J1940; J3475

== ENCOUNTER → 2023-04-10 06:57 | Outpatient (BNV) | payer MEDICARE, SELFPAY | PROVIDERS: Admitting Provider Student in an Organized Health Care Education/Training Program; Emergency Provider Emergency Medicine; PCP Internal Medicine; Visit Provider Internal Medicine | DX: I49.1 Atrial premature depolarization (principal); R94.31 Abnormal electrocardiogram [ECG] [EKG] | CPT/HCPCS: 93010 ==

== ENCOUNTER → 2023-04-10 11:58 | Outpatient (BNV) | payer MEDICARE, SELFPAY | PROVIDERS: Admitting Provider Student in an Organized Health Care Education/Training Program; Emergency Provider Emergency Medicine; PCP Internal Medicine; Visit Provider Student in an Organized Health Care Education/Training Program | DX: J96.01 Acute respiratory failure with hypoxia (principal); I50.9 Heart failure, unspecified | CPT/HCPCS: 99223; 99232; 99239 ==

== ENCOUNTER 2023-04-18 09:47 | Outpatient (AMB) | payer MEDICARE, SELFPAY ==
--- NOTE | 2023-04-18 09:50 | A.OFFVIS_ITS ---
Intake Vital Signs 04/18/23 09:51 Height 5 ft 6 in Weight 180 lb BMI 29.0 BP 132/50 L Blood Pressure Location Lt brachial Position Sitting Pulse 81 Intake Visit Reasons: [place] [facility] [place] Note: pt its here today for a f/up from [facility] [place] pt its feeling much better with no symptoms but its having some numbness on the left foot. Hvac Service Technician Required: Yes Hvac Service Technician Name: Lisa/narda Accompanied by: Employee Allergies No Known Allergies Allergy (Verified 03/22/23 08:39) Medication List - Last Reconciled 04/18/23 by MAREN Orr acetaminophen (Tylenol Extra Strength) 500 mg PO Q6H PRN amiodarone 200 mg PO DAILY amlodipine 10 mg PO BEDTIME ascorbic acid (vitamin C) 500 mg PO BEDTIME aspirin 81 mg PO BEDTIME blood sugar diagnostic (FreeStyle Lite Strips) As directed four times a day 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 meter (FreeStyle [place] Lite kit) As directed brimonidine 0.15% 1 drp ophthalmic (eye) BID cholecalciferol (vitamin D3) 25 mcg PO BEDTIME clopidogrel (Plavix) 75 mg PO DAILY collagenase clostridium histo. (Santyl) 1 appl topical DAILY [diabetic shoe lift As directed] [diabetic shoes As directed] docusate sodium 200 mg (2 x 100 mg) PO DAILY dorzolamide-timolol 22.3-6.8 mg/mL 1 drp ophthalmic (eye) BID dulaglutide (Trulicity) 1.5 mg subcut PONCE@0900 furosemide (Lasix) 20 mg PO QPM furosemide 40 mg See Protocol PO DAILY gabapentin 300 mg PO BEDTIME [hospital bed As directed] [HOSPITAL BED As directed] insulin degludec 20 units subcut BEDTIME insulin lispro (Humalog KwikPen (U-100) Insulin) 1 sliding scale dose subcut TIDAC isosorbide mononitrate ER 30 mg See Protocol PO DAILY lancets (FreeStyle Lancets) As directed check BS QD multivitamin 1 tab PO BEDTIME nicotine 1 patch transdermal DAILY pen needle, diabetic (BD Martina 2nd Gen Pen Needle) 5 times a day rosuvastatin 40 mg PO BEDTIME HPI f/u [facility] [place] HPI Details Deyanira is a 77-year-old male past medical history of hypertension, hyperlipidemia, diabetes, peripheral vascular disease, smoking, chronic kidney disease, CAD with prior Coronary artery bypass grafting, CHF. He was recently admitted twice to [facility] [place] with decompensated HF. His last discharge was 04/12/23. He was discharged with lasix 60mg daily at that time. Cr 1.59. During February admission he was noted to have very frequent PVCs and he was started on Amiodarone at that time. Today he reports his breathing has been good since his hospital discharge. He denies any PND, orthopnea or edema. Does have allergy symptoms and has been sneezing a lot. No chest discomfort at rest or with activity. No heart palpitations, lightheadedness, presyncope, syncope, falls. Ambulates with a walker. Does light physical activity only. Taking meds as directed. is present. 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 [facility] Medical History CHF (congestive heart failure) Heel ulcer Tobacco abuse Impacted cerumen of both ears Epidermoid cyst of skin of cheek Mass of face Allergic rhinitis Trigger finger, right middle finger Fracture of distal end of left radius with routine healing Superficial abrasion Pneumonia due to COVID-19 virus Acute hypoxemic respiratory failure due to COVID-19 Distal radius fracture, right Renal insufficiency Trigger finger, right middle finger Respiratory tract infection Aortic stenosis Preoperative clearance Iliac artery stenosis, 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 History of renal calculi Compression fracture of L1 lumbar vertebra Infective endocarditis Glaucoma Left carotid stenosis GERD (gastroesophageal reflux disease) Pulmonary nodule Cardiomyopathy Congestive heart failure Overweight (BMI 25.0-29.9) Carotid artery stenosis PVD (peripheral vascular disease) Dyslipidemia Hypertension CAD (coronary artery disease) Diabetic retinopathy associated with type 2 diabetes mellitus Diabetic polyneuropathy associated with type 2 diabetes mellitus CKD stage 3 due to type 2 diabetes mellitus Diabetic 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 diabetes mellitus half-way (current) use of insulin Surgical History Hx of shoulder surgery Hx of coronary artery bypass graft Hx of cataract removal with insertion of prosthetic lens Hx of tonsillectomy Hx of appendectomy Hx of arthroscopy of right knee Family History Father Stomach cancer Mother Diabetes Brother Prostate abscess Social History Household Members: Spouse Housing: Apartment Do you presently have visiting nurse or other home services: Yes Alcohol intake: never Patient Tobacco Use Status: Never used Tobacco Tobacco use type: Cigarette Cigarette Packs Per Day: 0.25 Cigarettes Per Day: 3 Years Smoked: 65 e-Cigarette/Vaping Use: Never Used Second Hand Smoke Exposure: Yes Advance Directives Date on File: 06/08/21 service: No Current occupational status: 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 Cognitive needs: No Hearing needs: No Vision needs: No Review of Systems Const Denies chills, Denies fatigue, Denies fever(s), Denies frequent falls, Denies weakness, Denies weight gain and Reports weight loss ENT Denies dizziness Card Denies chest pain, Denies leg edema, Denies lightheadedness, Denies palpitations, Denies dyspnea and Denies dyspnea on exertion Resp Details: Sneezing from allergies Denies cough, Denies dyspnea and Denies dyspnea on exertion GI Denies hematochezia Musc Denies abnormal gait, Reports muscle weakness, Denies numbness, Denies radiating pain into limb and Denies tingling Neuro Denies abnormal gait, Denies dizziness, Denies frequent falls, Denies numbness, Denies tingling and Denies weakness Endo Denies fatigue and Denies palpitations Physical Exam Vital Signs: Last Vital Signs Pulse 81 04/18/23 09:51 BP 132/50 L 04/18/23 09:51 BMI result Body Mass Index 29.0 Const General: cooperative, healthy appearing, comfortable and no acute distress Orientation/consciousness: patient oriented x3 Neck Neck: Yes normal visual inspection and Yes no JVD Resp Effort & Inspection: normal respiratory effort Auscultation: clear to auscultation bilaterally, no crackles, no rales, no rhonchi and no wheezes Cardio Jugular venous distension: no JVD Rate: regular rate Rhythm: regular rhythm Heart sounds: S1 normal heart sound present, S2 normal heart sound present, Murmur heart sound present (2/3 systolic murmur right sternal border) and no rubs Neuro General: patient oriented x3 Extrem General: Yes normal to inspection, No no pedal edema and No calf tenderness Psych Appearance: grossly normal Mental Status: mental status grossly normal Speech and movement: Normal speech and movement present Office Procedures EKG Details: Today, read by me, sinus rhythm with frequent PVCs, nonspecific ST abnormality in lateral leads, QTC 462 milliseconds, rate 81 [id number], Complete Assessment & Plan Assessment & Plan (1) Congestive heart failure: Code(s): I50.9 - Heart failure, unspecified Qualifiers: Heart failure type: unspecified Heart failure chronicity: chronic Qualified Code(s): I50.9 - Heart failure, unspecified Plan: [facility] [place] admission mid February with increased shortness of breath. BNP elevated. Treated for acute on chronic diastolic heart failure. He was diuresed and developed DEAN. On discharge she was sent home with Lasix 40 mg daily. He was readmitted a month later with shortness of breath, hypoxic respiratory failure, pulmonary edema. He was diuresed again and put on Lasix 60 mg daily. Today he reports that his breathing is now comfortable. No PND, orthopnea or edema. On exam he does not appear fluid overloaded. He has been monitoring his weight and finds that it is going down some. Following low-salt diet. Taking meds as directed. Informed him that if he does have weight gain of over 3 lb in a day or 5 lb in a week to take an additional 20 mg of Lasix in the afternoon for 3 days. Reviewed signs and symptoms of heart failure with him. Diagnosis of Congestive heart failure discussed. He was sent home initially with Lasix 40mg however last admission he was sent home with Lasix 60 mg daily. Last echocardiogram done 12/09/2022 showed EF, elevated filling pressures, mild increase in the RV size, moderate aortic stenosis. At this time will have him continue on current med management including Lasix 60 mg daily, isosorbide 30 mg daily. Continue daily weight monitoring. Follow low-salt diet strictly. Call if any change or concerning symptoms. Cardiology follow-up in 2 months, sooner if needed. (2) NSTEMI (non-ST elevated myocardial infarction): Code(s): I21.4 - Non-ST elevation (NSTEMI) myocardial infarction Plan: Demand NSTEMI last fall in the setting of pneumonia and Congestive heart failure. Treated at [facility]. He did not report chest discomfort. He has a known history of coronary artery disease with coronary artery bypass grafting approximately 6 years ago. He was recently admitted to [facility] x2 for Congestive heart failure. EKG done today showing sinus rhythm with frequent PVCs, nonspecific ST and T-wave abnormality, rate 81. On last visit here a nuclear stress test had been ordered however not completed as of yet. Condition seems stable at this time. He has no reports of anginal sounding symptoms. He is mostly sedentary. Will follow through with pharmacological nuclear stress test to evaluate for any ischemia. He is not able to ambulate on a treadmill due to slow ambulation and peripheral vascular disease. Continue current management with aspirin, plavix, rosuvastatin, isosorbide, amlodipine, losartan. His metoprolol was stopped when amiodarone was added, (3) Aortic stenosis: Comment: April 2021, December 2021 1.3 cm Code(s): I35.0 - Nonrheumatic aortic (valve) stenosis Plan: Echocardiogram 12/09/2022 shows moderate aortic stenosis, aortic valve area 1.64 centimeter sq, mean gradient 23 mmHg. Heart murmur noted on examination, 2nd heart tone audible. (4) Hypertension: Code(s): I10 - Essential (primary) hypertension Qualifiers: Hypertension type: essential hypertension Qualified Code(s): I10 - Essential (primary) hypertension Plan: Normal range today. No med changes made. Will have him continue his current meds including metoprolol, amlodipine. (5) Dyslipidemia: Code(s): E78.5 - Hyperlipidemia, unspecified Plan: [place] LDL goal less than 70 in patient with CAD. Will order fasting lipids to be done with next lab draw. Continue rosuvastatin (6) PVC (premature ventricular contraction): Code(s): I49.3 - Ventricular premature depolarization Plan: Frequent PVCs noted during hospital admission in February. Was initially treated with metoprolol then carvedilol. He was then changed to amiodarone to help suppress frequency of PVCs. EKG done today shows sinus rhythm with frequent PVCs, 4 PVCs noted on 10 second EKG. He denies any heart palpitations. He reports compliance with amiodarone use. Will check Holter monitor to assess frequency of PVCs. At present will continue on amiodarone. Will check labs to assess amiodarone tolerance including CMP and TSH. (7) Hospital discharge follow-up: Code(s): Z09 - Encounter for follow-up examination after completed treatment for conditions other than malignant neoplasm Plan: Two recent [facility] [place] admissions as above Plan Time spent on chart review, documentation, interview and assessment Orders: Orders Comprehensive Met. Panel Today Z79.899 - Other terminal gauger supervisor (current) drug therapy Lipid Panel Today E78.5 - Hyperlipidemia, unspecified ECG 3 day holter monitor Today I49.3 - Ventricular premature depolarization TSH reflex Free T4 Today Z79.899 - Other senior care (current) drug therapy Coding Level of Care Code Est Pt Level 4 (68485) Diagnoses Chronic congestive heart failure, unspecified heart failure type I50.9 Heart failure type: unspecified Heart failure chronicity: chronic NSTEMI (non-ST elevated myocardial infarction) I21.4 Aortic stenosis I35.0 Essential hypertension I10 Hypertension type: essential hypertension Dyslipidemia E78.5 PVC (premature ventricular contraction) I49.3 Hospital discharge follow-up Z09 CPT Codes EKG - CPT: [id number], Complete ([id number]) Time Spent (min) 35
[2023-04-18 09:51] VITALS: BP 132/50; PULSE 81; BMI 29.0
== END 2023-04-18 10:34 | disposition home or self-care (01) ==
PROVIDERS: PCP Internal Medicine; Visit Provider Nurse Practitioner Family
DX: I50.9 Heart failure, unspecified (principal); I21.4 Non-ST elevation (NSTEMI) myocardial infarction; I35.0 Nonrheumatic aortic (valve) stenosis; I10 Essential (primary) hypertension; E78.5 Hyperlipidemia, unspecified; I49.3 Ventricular premature depolarization; Z09 Encounter for follow-up examination after completed treatment for conditions other than malignant neoplasm
CPT/HCPCS: 93010; 99214

== ENCOUNTER → 2023-04-18 09:47 | Outpatient (BNVA) | payer MEDICARE, SELFPAY | PROVIDERS: PCP Internal Medicine; Visit Provider Nurse Practitioner Family | DX: I11.0 Hypertensive heart disease with heart failure (principal); I50.30 Unspecified diastolic (congestive) heart failure; I35.0 Nonrheumatic aortic (valve) stenosis; I49.3 Ventricular premature depolarization; E78.5 Hyperlipidemia, unspecified; I25.2 Old myocardial infarction; Z79.02 Long term (current) use of antithrombotics/antiplatelets; Z79.82 Long term (current) use of aspirin; Z79.899 Other long term (current) drug therapy | CPT/HCPCS: 93005; 99212 ==

== ENCOUNTER 2023-04-23 13:29 | Outpatient (RCR) | payer MEDICARE, SELFPAY ==
--- NOTE | ~2023-04-23 | XR_ITS ---
EXAMINATION: XR CALCANEUS, RIGHT CLINICAL INFORMATION: Pain bottom of foot, right calcaneus, pain in the bottom of the foot. COMPARISON: Right foot of 03/22/2023. TECHNIQUE: Lateral and axial views of the right calcaneus were obtained. FINDINGS: The bones are diffusely demineralized. Extensive vascular calcifications. Small posterior and plantar calcaneal spurs. No displaced fracture of the calcaneus appreciated. XR/XR calcaneus RT min 2V IMPRESSION: Small posterior and plantar calcaneal spurs. No displaced fracture of the calcaneus appreciated.
== END 2023-11-14 09:56 | disposition home or self-care (01) ==
LOC: HO.WCC 13:29
PROVIDERS: PCP Internal Medicine; Visit Provider Surgery
DX: E11.621 Type 2 diabetes mellitus with foot ulcer (principal); L97.412 Non-pressure chronic ulcer of right heel and midfoot with fat layer exposed; E11.51 Type 2 diabetes mellitus with diabetic peripheral angiopathy without gangrene
CPT/HCPCS: 11042; 11043; 73650; 97597; 99212

== ENCOUNTER 2023-05-07 09:38 | Outpatient (AMB) | payer MEDICARE, SELFPAY ==
[2023-05-07 09:53] VITALS: BP 140/42; PULSE 80; O2SAT 97; BMI 29.7
--- NOTE | 2023-05-07 09:53 | MHC.PC.OV ---
Vital Signs 05/07/23 09:53 Height 5 ft 6 in Weight 184 lb BMI 29.7 BP 140/42 H Blood Pressure Location Lt brachial Position Sitting Pulse 80 Pulse Source Pulse Oximeter Pulse Oximetry (%) 97 Oxygen Delivery Method Room Air Int[place] [facility] [place] Acidosis Lactic, Open Wound Intake Note: Dr[place] Clements's [place] [facility] [place] for Acidosis, Open wound in right leg. 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 Accompanied by: Spouse Allergies No Known Allergies Allergy (Verified 05/07/23 10:05) Medication List - Last Reconciled 05/07/23 by Juan King PA-C acetaminophen (Tylenol Extra Strength) 500 mg PO Q6H PRN amiodarone 200 mg PO DAILY amlodipine 10 mg PO BEDTIME ascorbic acid (vitamin C) 500 mg PO BEDTIME aspirin 81 mg PO BEDTIME blood sugar diagnostic (FreeStyle Lite Strips) As directed four times a day 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 meter (FreeStyle Whitmer Lite kit) As directed brimonidine 0.15% 1 drp ophthalmic (eye) BID cholecalciferol (vitamin D3) 25 mcg PO BEDTIME clopidogrel (Plavix) 75 mg PO DAILY collagenase clostridium histo. (Santyl) 1 appl topical DAILY [diabetic shoe lift As directed] [diabetic shoes As directed] docusate sodium 200 mg (2 x 100 mg) PO DAILY dorzolamide-timolol 22.3-6.8 mg/mL 1 drp ophthalmic (eye) BID dulaglutide (Trulicity) 1.5 mg subcut PONCE@0900 furosemide (Lasix) 20 mg PO QPM furosemide 40 mg See Protocol PO DAILY gabapentin 300 mg PO BEDTIME [hospital bed As directed] [HOSPITAL BED As directed] insulin degludec 20 units subcut BEDTIME insulin lispro (Humalog KwikPen (U-100) Insulin) 1 sliding scale dose subcut TIDAC isosorbide mononitrate ER 30 mg See Protocol PO DAILY lancets (FreeStyle Lancets) As directed check BS QD multivitamin 1 tab PO BEDTIME nicotine 1 patch transdermal DAILY pen needle, diabetic (BD Martina 2nd Gen Pen Needle) 5 times a day rosuvastatin 40 mg PO BEDTIME Tobacco use date assessed: 05/07/23 Fall risk assessment: No Falls in past year Last assessed Fall Risk: 05/07/23 [place] [facility] [place] Acidosis Lactic, Open Wound HPI Details Patient is a 77-year-old male here today for hospital discharge follow-up. Patient has a past medical history significant for coronary artery disease, history of NSTEMI, peripheral artery disease, heart failure, history of endocarditis, hypertension, hyperlipidemia and type 2 diabetes. Was seen at the ER for acute Congestive heart failure exacerbation with hypoxic respiratory distress/ pulmonary edema was treated with diuretics and did better. He has followed up with Cardiology whom will be sending for 3 day Holter monitor. Also has a wound over his left lower extremity/heel ulcer that has been evident over the last 3 months. He is going to wound care management and getting surgical debridements though feels is not helping. He also is followed by a vascular specialist Dr. Acosta. He reports lately feeling a bit more pain in his right heel and is interested in getting an antibiotic. [facility] Medical History CHF (congestive heart failure) Heel ulcer Tobacco abuse Impacted cerumen of both ears Epidermoid cyst of skin of cheek Mass of face Allergic rhinitis Trigger finger, right middle finger Fracture of distal end of left radius with routine healing Superficial abrasion Pneumonia due to COVID-19 virus Acute hypoxemic respiratory failure due to COVID-19 Distal radius fracture, right Renal insufficiency Trigger finger, right middle finger Respiratory tract infection Aortic stenosis Preoperative clearance Iliac artery stenosis, 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 History of renal calculi Compression fracture of L1 lumbar vertebra Infective endocarditis Glaucoma Left carotid stenosis GERD (gastroesophageal reflux disease) Pulmonary nodule Cardiomyopathy Congestive heart failure Overweight (BMI 25.0-29.9) Carotid artery stenosis PVD (peripheral vascular disease) Dyslipidemia Hypertension CAD (coronary artery disease) Diabetic retinopathy associated with type 2 diabetes mellitus Diabetic polyneuropathy associated with type 2 diabetes mellitus CKD stage 3 due to type 2 diabetes mellitus Diabetic 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 diabetes mellitus prison (current) use of insulin Surgical History Hx of shoulder surgery Hx of coronary artery bypass graft Hx of cataract removal with insertion of prosthetic lens Hx of tonsillectomy Hx of appendectomy Hx of arthroscopy of right knee Family History Father Stomach cancer Mother Diabetes Brother Prostate abscess Social History Household Members: Spouse Housing: Apartment Do you presently have visiting nurse or other home services: Yes Alcohol intake: never Patient Tobacco Use Status: Never used Tobacco Tobacco use type: Cigarette Cigarette Packs Per Day: 0.25 Cigarettes Per Day: 3 Years Smoked: 65 Packs Per Year: 16 Packs per year/per ci.75 e-Cigarette/Vaping Use: Never Used Second Hand Smoke Exposure: Yes Advance Directives Date on File: 06/08/21 service: No Current occupational status: 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 1. Little interest or pleasure in doing things: not at all 2. Feeling down, depressed, or hopeless: not at all 3. Trouble falling or staying asleep, or sleeping too much: not at all 4. Feeling tired or having little energy: not at all 5. Poor appetite or overeating: not at all 6. Feeling bad about yourself - or that you are a failure or have let yourself or your family down: not at all 7. Trouble concentrating on things, such as reading the newspaper or watching television: not at all 8. Moving or speaking so slowly that other people could have noticed. Or the opposite - being so fidgety or restless that you have been moving around a lot more than usual: not at all 9. Thoughts that you would be better off or of hurting yourself in some way: not at all Total score: 0 Depression Screening Interpretation: Negative Depression Screening Done: Yes 05376 - PHQ-9 Billing: Yes Source: Developed by Drs. Mendez Warren, Chelsea David, Kane Oakes and colleagues, with an educational charisse from [employer]. Thrive Questionnaire Date Thrive assessed: 04/11/23 AUDIT C Alcohol Use Questionnaire (AUDIT-C) 1. How often do you have a drink containing alcohol?: Never 2. How many drinks containing alcohol do you have on a typical day when you are drinking?: 1 or 2 (0) 3. How often do you have six or more drinks on one occasion?: Never Total Score: 0 THIERNO-7 AMB Questionnaire THIERNO-7 Date THIERNO - 7 assessed: 05/07/23 Feeling nervous, anxious, or on edge: 0 = Not at all Not being able to stop or control worryin = Not at all Worrying too much about different things: 0 = Not at all Trouble relaxin = Not at all Being so restless that it is hard to sit still: 0 = Not at all Becoming easily annoyed or irritable: 0 = Not at all Feeling afraid as if something awful might happen: 0 = Not at all Total THIERNO-7 score (0-4 normal; 5-9 mild; 10-14 moderate; 15-21 severe): 0 Source: Developed by Drs. Mendez Warren, Chelsea David, Kane Oakes and colleagues, with an educational charisse from [employer]. THIERNO-7 Assessment Billing THIERNO-7 Assessment Tool: THIERNO-7 Assessment 84455 Review of Systems Const Denies headache(s) Eyes Denies loss of vision ENT Denies vertigo, Denies dizziness, Denies headache(s) and Denies sore throat Card Denies chest pain, Denies leg edema and Denies lightheadedness Resp Denies cough, Denies hemoptysis and Denies wheezing GI Denies abdominal pain, Denies melena, Denies constipation, Denies diarrhea and Denies vomiting Denies dysuria, Denies urinary frequency and Denies urinary urgency Musc Denies arthralgias, Denies joint swelling, Denies numbness and Denies tingling Neuro Denies Abnormal speech present, Denies behavioral changes, Denies vertigo, Denies dizziness, Denies headache(s), Denies loss of vision, Denies memory loss, Denies numbness and Denies tingling Psych Denies anxiety, Denies behavioral changes, Denies depression, Denies memory loss and Denies panic attacks Tad/Lymph Denies easy bleeding and Denies easy bruising Aller/Immun Denies wheezing Physical exam (Primary Care) BMI result Body Mass Index 29.7 Tobacco/Smoking Status: Tobacco use Status Tobacco use date assessed 02/21/23 05/07/23 09:57 Patient Tobacco Use Status Never used Tobacco 05/07/23 09:57 Tobacco use type Cigarette 05/07/23 09:57 e-Cigarette/Vaping Use Never Used 05/07/23 09:57 Depression Screening Interpretation: Negative Thrive Assessment: Date of Thrive Assessment Date Thrive assessed 04/11/23 05/07/23 09:57 Const General: healthy appearing, no acute distress, alert and awake Nutritional Appearance: well nourished Orientation/consciousness: oriented to person, oriented to place and oriented to time HENMT Ears: TM's normal bilaterally General nose exam: Normal nasal mucous membranes and turbinates present Eyes Conjunctivae: conjunctivae normal Sclerae: sclerae normal Pupils: Equal, round and reactive pupils present Neck Neck: Yes no lymphadenopathy and Yes no JVD Thyroid: Thyroid normal Carotids: no bruits Resp Effort & Inspection: normal respiratory effort and not tachypneic Auscultation: no crackles, no rales, no rhonchi and no wheezes Cardio Rate: regular rate Rhythm: regular rhythm Heart sounds: no murmurs and normal S1 and S2 GI Palpation (GI): Soft to palpation, nontender, no hepatomegaly and no splenomegaly Auscultation: normal bowel sounds Skin General skin exam: no rashes or lesions noted and dry skin Neuro General: oriented to person, oriented to place and oriented to time Cranial nerves: Yes Equal, round and reactive pupils present Speech: No Abnormal speech present Gait exam (Neuro): Normal gait present Motor exam (neuro): no tremor noted Extrem Right upper extremity: full ROM Left upper extremity: full ROM Right lower extremity: full ROM; no edema Left lower extremity: full ROM; no edema Ankle/foot/toe images: 1. LEFT HEEL WITH A 4 CM X 4 CM CIRCULAR DEEP ULCER, NO SURROUNDING ERYTHEMA Psych Mental Status: mental status grossly normal Speech and movement: Normal speech and movement present Affect: normal affect Attitude: cooperative Thought process: Normal thought process present Assessment and Plan Assessment & Plan (1) Unstageable pressure ulcer of heel: Code(s): L89.600 - Pressure ulcer of unspecified heel, unstageable Qualifiers: Laterality: right Qualified Code(s): L89.610 - Pressure ulcer of right heel, unstageable Plan: Patient has fairly large right heel ulcer likely secondary to his peripheral artery disease and type 2 diabetes. Is [facility] and receiving treatment. He reports recent pain in the area like an antibiotic. Will also supply him Silvadene cream to use (2) Type 2 diabetes mellitus with hyperglycemia: Code(s): E11.65 - Type 2 diabetes mellitus with hyperglycemia Qualifiers: Diabetes mellitus intermediate teacher insulin use: with fdc use Qualified Code(s): E11.65 - Type 2 diabetes mellitus with hyperglycemia; Z79.4 - prison (current) use of insulin Plan: Has lost follow-up with Endocrinology in needs new scripts for his short and long-acting insulin. Continues on Trulicity 1.5 mg weekly as well. Has upcoming appointment with PCP Medications: New silver sulfadiazine 1% (Silvadene) apply a 1.5 mm thickness around ulcer 1 appl topical BID 30 days 400 grams 0RF L89.610 - Pressure ulcer of right heel, unstageable amoxicillin-pot clavulanate 875-125 mg 1 tab PO BID 7 days 14 tabs 0RF L89.610 - Pressure ulcer of right heel, unstageable Changed From dulaglutide (Trulicity) 1.5 mg subcut PONCE@0900 E11.65 - Type 2 diabetes mellitus with hyperglycemia To dulaglutide (Trulicity) 1.5 mg (0.5 mL) subcut PONCE@0900 4 weeks 2 mL 3RF E11.65 - Type 2 diabetes mellitus with hyperglycemia From insulin lispro (Humalog KwikPen (U-100) Insulin) before meals as directed 1 sliding scale dose subcut TIDAC E11.65 - Type 2 diabetes mellitus with hyperglycemia To insulin lispro (Humalog KwikPen (U-100) Insulin) before meals as directed 6 units subcut TIDAC E11.65 - Type 2 diabetes mellitus with hyperglycemia Refilled pen needle, diabetic (BD Martina 2nd Gen Pen Needle) 5 times a day 400 ea 4RF E11.65 - Type 2 diabetes mellitus with hyperglycemia Coding Level of Care Code Est Pt Level 4 (06124) Diagnoses Pressure injury of right heel, unstageable L89.610 Laterality: right Type 2 diabetes mellitus with hyperglycemia, with long-term current use of insulin E11.65; Z79.4 Diabetes mellitus intermediate teacher insulin use: with fdc use Additional Codes THIERNO-7 Assessment Billing - THIERNO-7 Assessment Tool: THIERNO-7 Assessment [id number] ([id number])
== END 2023-05-07 10:26 | disposition home or self-care (01) ==
PROVIDERS: PCP Internal Medicine; Visit Provider Physician Assistant
DX: L89.610 Pressure ulcer of right heel, unstageable (principal); E11.65 Type 2 diabetes mellitus with hyperglycemia; Z79.4 Long term (current) use of insulin
CPT/HCPCS: 99214

== ENCOUNTER 2023-05-13 10:49 | Outpatient (AMB) | payer MEDICARE, SELFPAY ==
[2023-05-13 10:58] VITALS: BMI 29.7
--- NOTE | 2023-05-13 10:58 | MHC.OFFVIS ---
Intake Vital Signs 05/13/23 10:58 Height 5 ft 6 in Weight 184 lb BMI 29.7 Intake Visit Reasons: Follow Up 03/26 angio Intake Note: Patient presents for a follow up angio on 03/26/23. Says he has a wound on his right heel, has an odor. States he goes to wound care once a week and his does daily dressings at home. Allergies No Known Allergies Allergy (Verified 05/13/23 11:05) HPI Follow Up 03/26 angio HPI Details Very pleasant 77-year-old gentleman presents for follow-up regarding nonhealing right lower extremity ulcer. He had undergone right SFA plasty on 03/26/2023. He reports he is doing fairly well with that. Pain and discomfort have significantly improved. He now presents for routine follow-up. [facility] Medical History CHF (congestive heart failure) Heel ulcer Tobacco abuse Impacted cerumen of both ears Epidermoid cyst of skin of cheek Mass of face Allergic rhinitis Trigger finger, right middle finger Fracture of distal end of left radius with routine healing Superficial abrasion Pneumonia due to COVID-19 virus Acute hypoxemic respiratory failure due to COVID-19 Distal radius fracture, right Renal insufficiency Trigger finger, right middle finger Respiratory tract infection Aortic stenosis Preoperative clearance Iliac artery stenosis, 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 History of renal calculi Compression fracture of L1 lumbar vertebra Infective endocarditis Glaucoma Left carotid stenosis GERD (gastroesophageal reflux disease) Pulmonary nodule Cardiomyopathy Congestive heart failure Overweight (BMI 25.0-29.9) Carotid artery stenosis PVD (peripheral vascular disease) Dyslipidemia Hypertension CAD (coronary artery disease) Diabetic retinopathy associated with type 2 diabetes mellitus Diabetic polyneuropathy associated with type 2 diabetes mellitus CKD stage 3 due to type 2 diabetes mellitus Diabetic 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 diabetes mellitus 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 Surgical History Hx of shoulder surgery Hx of coronary artery bypass graft Hx of cataract removal with insertion of prosthetic lens Hx of tonsillectomy Hx of appendectomy Hx of arthroscopy of right knee Family History Father Stomach cancer Mother Diabetes Brother Prostate abscess Social History Household Members: Spouse Housing: Apartment Do you presently have visiting nurse or other home services: Yes Alcohol intake: never Patient Tobacco Use Status: Never used Tobacco Tobacco use type: Cigarette Cigarette Packs Per Day: 0.25 Cigarettes Per Day: 3 Years Smoked: 65 e-Cigarette/Vaping Use: Never Used Second Hand Smoke Exposure: Yes Advance Directives Date on File: 06/08/21 service: No Current occupational status: 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 Cognitive needs: No Hearing needs: No Vision needs: No Review of Systems Const All systems reviewed & are unremarkable except as noted in HPI and below Reports no additional complaints ENT Reports Normal hearing present Card Denies chest pain, Denies chest pain at rest, Denies chest pain with activity and Denies pedal edema Resp Denies cough GI Denies abdominal pain Musc Denies abnormal gait, Denies muscle cramps and Denies radiating pain into limb Skin/Breast Denies skin ulcer and Denies wounds Neuro Reports Normal hearing present and Denies abnormal gait Psych Reports no additional complaints Physical Exam Vital Signs: BMI result Body Mass Index 29.7 Const General: cooperative, healthy appearing and comfortable Orientation/consciousness: oriented to person, oriented to place and oriented to time HEENT Head: Yes normal to inspection Neck Neck: Yes normal visual inspection Carotids: no bruits Chest Chest palpation & inspection: normal inspection of the chest Resp Effort & Inspection: normal respiratory effort and able to speak in complete sentences Auscultation: clear to auscultation bilaterally, no crackles, no rales, no rhonchi and no wheezes Cardio Rate: regular rate Rhythm: regular rhythm Heart sounds: S1 normal heart sound present and S2 normal heart sound present Bruits: no carotid bruits Peripheral pulses: Peripheral pulses 2+ throughout GI Inspection: Yes normal to inspection Skin Other: Right heel wound measuring 2 x 1 x 0.1 cm Wounds: no wounds Hair: normal Neuro General: oriented to person, oriented to place and oriented to time Cranial nerves: Yes CN's II-XII intact bilaterally and Yes Normal hearing present Cognition (Neuro): normal cognition Motor exam (neuro): 5/5 motor strength present throughout Extrem Other: venous exam: No significant superficial varicosities or spider telangiectasias, minimal edema General: No clubbing, No cyanosis and No edema Psych Appearance: grossly normal Mental Status: mental status grossly normal Speech and movement: Normal speech and movement present Assessment & Plan Assessment & Plan (1) PVD (peripheral vascular disease): Comment: 08/12/2018- bilateral iliac stents 03/28/2021 - right SFA atherectomy and stenting 03/26/2023 - right SFA plasty Code(s): I73.9 - Peripheral vascular disease, unspecified Plan: In short patient is doing well status post endovascular intervention. Appears to be doing significantly better. Will plan for surveillance follow-up in approximately 3 months time. Thank you for allowing us to assist in his care. Orders: Orders US arterial duplex LE BI 3 Months I73.9 - Peripheral vascular disease, unspecified Coding Level of Care Code Est Pt Level 4 (29500) Diagnoses PVD (peripheral vascular disease) I73.9
== END 2023-05-13 11:19 | disposition home or self-care (01) ==
LOC: HO.HVS 10:49
PROVIDERS: PCP Internal Medicine; Visit Provider Surgery Vascular Surgery
DX: I73.9 Peripheral vascular disease, unspecified (principal)
CPT/HCPCS: 99213

== ENCOUNTER → 2023-05-13 10:49 | Outpatient (BNVA) | payer MEDICARE, SELFPAY | PROVIDERS: PCP Internal Medicine; Visit Provider Surgery Vascular Surgery | DX: I73.9 Peripheral vascular disease, unspecified (principal) | CPT/HCPCS: 99212 ==

== ENCOUNTER → 2023-05-26 07:58 | Outpatient (REF) | payer MEDICARE, SELFPAY ==
--- NOTE | ~2023-05-26 | NM_ITS ---
Myocardial perfusion study Indication: Non-ST elevation myocardial infarction to evaluate for myocardial ischemia Technique: The patient was brought in for a Lexiscan perfusion study on 05/26/2023. Patient performed low-level exercise and was injected 0.4 mg of Lexiscan intravenously. Within a minute of injection, 30 mCi of sestamibi was given intravenously. Images were obtained using the SPECT gamma camera interlaced with the gating device. Images were obtained in supine position. Resting perfusion study was performed on 05/27/2023. Patient was administered 30 mCi of sestamibi intravenously at rest. Images were then obtained in supine position. Images obtained with and without CT attenuation. Total DLP 140 mGy-cm. Images were processed with the software and compared side to side in short axis, horizontal long axis and vertical long axis views. Findings: The stress perfusion study showed non attenuated images show moderately reduced uptake in the septum and severely reduced uptake in the distal anteroseptal area as well as inferoapical area of the LV myocardium. Attenuation corrected images does not show any significant change in the myocardial perfusion imaging. The gated study shows reduced LV systolic function with calculated LVEF of 48%. LV cavity is normal in size. The gated study shows reduced wall thickening and contraction of septal segments. Resting study shows no change in perfusion stress perfusion study. Gating at rest reveals septal wall motion abnormality with ejection fraction at 45%. The findings are consistent with no reversible defect suggestive of ischemia with fixed septal defect consistent with nontransmural myocardial infarction with prominent in the distal septum.. NM/NM cardiolite stress test Impression: 1. Myocardial perfusion imaging study shows no reversible ischemia with infarction of the septum 2. Gated LVEF is 48% 3. Transient ischemic dilatation not present EKG is nondiagnostic for ischemia
--- NOTE | 2023-05-26 09:06 | HM_ITS ---
Conclusion: 1. Patient was monitored for total period of 3 days 2. Baseline was normal sinus rhythm with average heart rate of 70 beats per minute 3. No significant pauses noted 4. Frequent PVCs noted with total burden of 7% with 1 episode of nonsustained VT, 3 beats at 140 beats per minute 5. No patient reported events MTDD
--- NOTE | 2023-05-26 11:16 | CA_ITS ---
Acquisition Time: 2023-05-26 08:26:53 Total Exercise Time: 00:02:00 Test Indications: Abnormal ECG CAD Medications: SEE H Protocol: LEXISCAN Max HR: 082 BPM 57% of Pred: 142 BPM Max BP: 130/050 mmHG Max Work Load: 1.0 METS Pharmacological stress test with Lexiscan injection while sitting and kicking his legs, without anginal symptoms, with isolated PVCs throughout , with normotenisve response to injection, with nondiagnostic EKGs. Aminophylline 75mg IVP given to reverse Lexiscan. Nuclear images pending. Test reviewed with Dr. Hudson. Referred By: Skylar Gamez Overread By: Wilda Culver
== END ==
LOC: HO.CARD 07:58
PROVIDERS: PCP Internal Medicine; Visit Provider Nurse Practitioner Family
DX: I49.3 Ventricular premature depolarization (principal); I50.9 Heart failure, unspecified; I21.4 Non-ST elevation (NSTEMI) myocardial infarction
CPT/HCPCS: 78452; 93017; 93242; A9500; J0280; J2785

== ENCOUNTER → 2023-05-26 11:16 | Outpatient (BNV) | payer MEDICARE, SELFPAY | PROVIDERS: PCP Internal Medicine; Visit Provider Nurse Practitioner | DX: I49.1 Atrial premature depolarization (principal) | CPT/HCPCS: 78452; 93016; 93018; 93244 ==

== ENCOUNTER 2023-05-27 09:33 | Outpatient (AMB) | payer MEDICARE, SELFPAY ==
[2023-05-27 09:34] VITALS: BP 122/52; PULSE 75; O2SAT 100; BMI 30.2
--- NOTE | 2023-05-27 09:34 | A.OFFPC_ITS ---
Vital Signs 05/27/23 09:34 Height 5 ft 6 in Weight 187 lb BMI 30.2 BP 122/52 L Blood Pressure Location Lt brachial Position Sitting Pulse 75 Pulse Source Pulse Oximeter Pulse Oximetry (%) 100 Oxygen Delivery Method Room Air Intake Visit Reasons: Coronary artery disease - see comment After School Program Coordinator Required: No Allergies No Known Allergies Allergy (Verified 05/27/23 09:34) Tobacco use date assessed: 05/07/23 Fall risk assessment: No Falls in past year Last assessed Fall Risk: 05/27/23 Dental Screening Dental Screen Date: 05/27/23 Did you have a dental visit in the last 12 months?: Yes Did you have a dental problem in the last 6 months where you did not have access to dental care?: No Was dental information given to patient?: Patient has dentist HPI Coronary artery disease - see comment HPI Details 77-year-old overweight male with multipl e medical problems coronary artery disease hypertension hypercholesterolemia congestive heart failure diabetes mellitus GERD last seen in February having an intertrochanteric fracture of the right femur from a fall. since that time patient had pharmacological stress test Lexiscan nondiagnostic EKG and awaiting for the nuclear images. Patient also has followed up with vascular surgeon regarding right heel [facility] has recently undergone right SFA plasty 03/26/2023 patient does have bilateral iliac stents. Patient was seen by the physician's programs assistant in April 2023 post hospitalization for congestive heart failure and was diuresed this was in 04/12/2023 came in for shortness of breath patient patient does have aortic stenosis moderate at 1.64 cm. Patient in February was in the hospital also for acute kidney injury. PAtient is saying that R leg is shorter than the left but discussed that this needs referral to ortho [facility] Medical History (Updated 05/27/23 @ 09:49 by Marcia Clements MD) CHF (congestive heart failure) Aortic stenosis PAD (peripheral artery disease) Heel ulcer Tobacco abuse Impacted cerumen of both ears Epidermoid cyst of skin of cheek Mass of face Allergic rhinitis Trigger finger, right middle finger Fracture of distal end of left radius with routine healing Superficial abrasion Pneumonia due to COVID-19 virus Acute hypoxemic respiratory failure due to COVID-19 Distal radius fracture, right Renal insufficiency Trigger finger, right middle finger Respiratory tract infection Preoperative clearance Iliac artery stenosis, 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 History of renal calculi Compression fracture of L1 lumbar vertebra Infective endocarditis Glaucoma Left carotid stenosis GERD (gastroesophageal reflux disease) Pulmonary nodule Cardiomyopathy Congestive heart failure Overweight (BMI 25.0-29.9) Carotid artery stenosis PVD (peripheral vascular disease) Dyslipidemia Hypertension CAD (coronary artery disease) Diabetic retinopathy associated with type 2 diabetes mellitus Diabetic polyneuropathy associated with type 2 diabetes mellitus CKD stage 3 due to type 2 diabetes mellitus Diabetic 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 diabetes mellitus longterm (current) use of insulin Surgical History Hx of shoulder surgery Hx of coronary artery bypass graft Hx of cataract removal with insertion of prosthetic lens Hx of tonsillectomy Hx of appendectomy Hx of arthroscopy of right knee Family History Father Stomach cancer Mother Diabetes Brother Prostate abscess Social History Household Members: Spouse Housing: Apartment Do you presently have visiting nurse or other home services: Yes Alcohol intake: never Patient Tobacco Use Status: Never used Tobacco Tobacco use type: Cigarette Cigarette Packs Per Day: 0.25 Cigarettes Per Day: 3 Years Smoked: 65 e-Cigarette/Vaping Use: Never Used Second Hand Smoke Exposure: Yes Advance Directives Date on File: 06/08/21 service: No Current occupational status: 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 Cognitive needs: No Hearing needs: No Vision needs: No Questionnaire Thrive Questionnaire Date Thrive assessed: 04/11/23 I am a: Patient What is your living situation today?: I have a steady place to live Within the past 12 months, did the food you bought not last and you didn't have the money to get more?: Never true Within the past 12 months, did you worry whether your food would run out before you got money to buy more?: Never true Do you have trouble paying for medicines?: No Do you have trouble getting transportation to medical appointments?: No Do you have trouble paying your heating and electricity bill?: No Do you have trouble taking care of your child, family member or friend?: No Do you have trouble with day-to-day activities such as bathing, preparing meals, shopping, managing finances, etc.?: No Are you currently unemployed and looking for a job?: No Are you interested in more education?: No Please select the resources that you would like help with: None THRIVE Score: 0 AUDIT C Alcohol Use Questionnaire (AUDIT-C) 1. How often do you have a drink containing alcohol?: Never 2. How many drinks containing alcohol do you have on a typical day when you are drinking?: 1 or 2 (0) 3. How often do you have six or more drinks on one occasion?: Never Total Score: 0 THIERNO-7 AMB Questionnaire THIERNO-7 Date THIERNO - 7 assessed: 05/07/23 Source: Developed by Drs. Mendez Warren, Chelsea David, Kane Oakes and colleagues, with an educational charisse from [employer]. Physical exam (Primary Care) Vital Signs: Last Vital Signs Pulse 75 05/27/23 09:34 BP 122/52 L 05/27/23 09:34 Pulse Ox 100 05/27/23 09:34 Oxygen Delivery Method Room Air 05/27/23 09:34 BMI result Body Mass Index 30.2 Tobacco/Smoking Status: Tobacco use Status Tobacco use date assessed 05/07/23 05/27/23 09:35 Patient Tobacco Use Status Never used Tobacco 05/27/23 09:35 Tobacco use type Cigarette 05/27/23 09:35 e-Cigarette/Vaping Use Never Used 05/27/23 09:35 Thrive Assessment: Date of Thrive Assessment Date Thrive assessed 04/11/23 05/27/23 09:35 Const General: alert; No acute distress Eyes Conjunctivae: conjunctivae normal Resp Auscultation: clear to auscultation bilaterally Cardio Rate: regular rate Rhythm: regular rhythm GI Inspection: Yes normal to inspection Extrem General: Yes normal to inspection and No edema Results AMB Hemoglobin A1c AMB Hemoglobin A1c 7.1 % Last Edit by ALEX Robert on 05/27/23 09:58 Assessment and Plan Assessment & Plan (1) Type 2 diabetes mellitus with hyperglycemia: Code(s): E11.65 - Type 2 diabetes mellitus with hyperglycemia Qualifiers: Diabetes mellitus termite control servicer insulin use: with prison use Qualified Code(s): E11.65 - Type 2 diabetes mellitus with hyperglycemia; Z79.4 - longterm (current) use of insulin Plan: Decrease the amount of carbohydrate intake, pasta, bread, rice and potatoes are all sugar and that is aside from all the sweet stuff, remember that fruits are good but they are Sweet also. Hemoglobin A1c goal of less than 7.0. Presently on Trulicity 1.5 mg once a week Tresiba 20 units once a day Humalog (2) GERD (gastroesophageal reflux disease): Code(s): K21.9 - Gastro-esophageal reflux disease without esophagitis Qualifiers: Esophagitis presence: without esophagitis Qualified Code(s): K21.9 - Gastro-esophageal reflux disease without esophagitis Plan: Avoid the foods that causes that usually spicy foods, tomato products, juices, coffee, soda and foods that your sensitive to. After eating do not lie down, allow 3-4 hours before in lie down. And keep the head of bed above 30 degrees to avoid the acid from going up. (3) Overweight (BMI 25.0-29.9): Code(s): E66.3 - Overweight Plan: Diet and exercise (4) Dyslipidemia: Code(s): E78.5 - Hyperlipidemia, unspecified Plan: Avoid fried foods, chicken skin, eggs, butter margarine, pastries and meat. Be it pork or beef they have a lot of cholesterol LDL goal of less than 70 and patient on rosuvastatin 40 mg at bedtime November 2022 last blood work (5) CAD (coronary artery disease): Code(s): I25.10 - Atherosclerotic heart disease of [place] coronary artery without angina pectoris Qualifiers: Coronary Disease-Associated Artery/Lesion type: [place] artery [place] vs. transplanted heart: [place] heart Associated angina: without angina Qualified Code(s): I25.10 - Atherosclerotic heart disease of [place] coronary artery without angina pectoris Plan: Control the cholesterol, weight, blood pressure, diabetes continue with isosorbide mononitrate (6) CKD stage 3 due to type 2 diabetes mellitus: Code(s): E11.22 - Type 2 diabetes mellitus with diabetic chronic kidney disease; N18.30 - Chronic kidney disease, stage 3 unspecified Plan: Keep well hydrated avoid NSAIDs (7) Tobacco abuse: Comment: stopped 09/2021, continuing February 2023 Code(s): Z72.0 - Tobacco use Plan: Patient is strongly advised to stop smoking. Stopped March 2023 ! (8) Aortic stenosis: Comment: April 2021, December 2021 1.3 cm Code(s): I35.0 - Nonrheumatic aortic (valve) stenosis Plan: Continue to monitor aortic stenosis (9) CHF (congestive heart failure): Code(s): I50.9 - Heart failure, unspecified Qualifiers: Heart failure chronicity: acute on chronic Heart failure type: unspecified Qualified Code(s): I50.9 - Heart failure, unspecified Plan: Continue with the diuretic and weigh daily and record (10) PVD (peripheral vascular disease): Comment: 08/12/2018- bilateral iliac stents 03/28/2021 - right SFA atherectomy and stenting 03/26/2023 - right SFA plasty Code(s): I73.9 - Peripheral vascular disease, unspecified Plan: When sitting down elevate the legs, exercise, and support stockings patient follows up with vascular surgeon (11) Open wound of heel: Code(s): S91.309A - Unspecified open wound, unspecified foot, initial encounter Qualifiers: Encounter type: initial encounter Laterality: right Qualified Code(s): S91.301A - Unspecified open wound, right foot, initial encounter Plan: Patient is following up with wound care Orders: Orders AMB Hemoglobin A1c Today E11.65 - Type 2 diabetes mellitus with hyperglycemia Medications: New insulin degludec 20 units (0.2 mL) subcut BEDTIME 15 mL 3RF E11.65 - Type 2 diabetes mellitus with hyperglycemia insulin lispro (Humalog KwikPen (U-100) Insulin) before meals as directed 6 units (0.06 mL) subcut TIDAC 15 mL 3RF E11.65 - Type 2 diabetes mellitus with hyperglycemia Coding Level of Care Code Est Pt Level 4 (58858) Diagnoses Type 2 diabetes mellitus with hyperglycemia, with long-term current use of insulin E11.65; Z79.4 Diabetes mellitus prison insulin use: with termite control servicer use Gastroesophageal reflux disease without esophagitis K21.9 Esophagitis presence: without esophagitis Overweight (BMI 25.0-29.9) E66.3 Dyslipidemia E78.5 Coronary artery disease involving [place] coronary artery of [place] heart without angina pectoris I25.10 Coronary Disease-Associated Artery/Lesion type: [place] artery [place] vs. transplanted heart: [place] heart Associated angina: without angina CKD stage 3 due to type 2 diabetes mellitus E11.22; N18.30 Tobacco abuse Z72.0 Aortic stenosis I35.0 CHF (congestive heart failure) I50.9 Heart failure chronicity: acute on chronic Heart failure type: unspecified PVD (peripheral vascular disease) I73.9 Open wound of heel S91.301A Encounter type: initial encounter Laterality: right
== END 2023-05-27 10:25 | disposition home or self-care (01) ==
PROVIDERS: PCP Internal Medicine; Visit Provider Internal Medicine
DX: E11.65 Type 2 diabetes mellitus with hyperglycemia (principal)
CPT/HCPCS: 83036; 99214

== ENCOUNTER 2023-06-13 09:41 | Outpatient (AMB) | payer MEDICARE, SELFPAY ==
--- NOTE | 2023-06-13 09:54 | MHC.OFFVIS ---
Intake Vital Signs 06/13/23 09:55 Height 5 ft 6 in Weight 187 lb 6.287 oz BMI 30.2 BP 132/52 L Blood Pressure Location Lt brachial Position Sitting Pulse 70 Pulse Source Monitor Intake Visit Reasons: 2 month fu after holter Epidemiology Internship Required: Yes Allergies No Known Allergies Allergy (Verified 06/13/23 09:58) Medication List - Last Reconciled 06/13/23 by MAREN Orr acetaminophen (Tylenol Extra Strength) 500 mg PO Q6H PRN amiodarone 200 mg PO DAILY amlodipine 10 mg PO BEDTIME ascorbic acid (vitamin C) 500 mg PO BEDTIME aspirin 81 mg PO BEDTIME benzonatate 200 mg PO BID-TID PRN blood sugar diagnostic (FreeStyle Lite Strips) As directed four times a day 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 meter (FreeStyle [place] Lite kit) As directed brimonidine 0.15% 1 drp ophthalmic (eye) BID cholecalciferol (vitamin D3) 25 mcg PO BEDTIME clopidogrel (Plavix) 75 mg PO DAILY collagenase clostridium histo. (Santyl) 1 appl topical DAILY [diabetic shoe lift As directed] [diabetic shoes As directed] docusate sodium 200 mg (2 x 100 mg) PO DAILY dorzolamide-timolol 22.3-6.8 mg/mL 1 drp ophthalmic (eye) BID dulaglutide (Trulicity) 1.5 mg (0.5 mL) subcut PONCE@0900 4 weeks furosemide (Lasix) 20 mg PO QPM furosemide 40 mg See Protocol PO DAILY gabapentin 300 mg PO BEDTIME [hospital bed As directed] [HOSPITAL BED As directed] insulin degludec 20 units (0.2 mL) subcut BEDTIME insulin lispro (Humalog KwikPen (U-100) Insulin) 6 units (0.06 mL) subcut TIDAC isosorbide mononitrate ER 30 mg See Protocol PO DAILY lancets (FreeStyle Lancets) As directed check BS QD multivitamin 1 tab PO BEDTIME nicotine 1 patch transdermal DAILY pen needle, diabetic (BD Martina 2nd Gen Pen Needle) 5 times a day rosuvastatin 40 mg PO BEDTIME silver sulfadiazine 1% (Silvadene) 1 appl topical BID 30 days HPI 2 month fu after holter HPI Details Deyanira is a 77-year-old male past medical history of hypertension, hyperlipidemia, diabetes, peripheral vascular disease, smoking, chronic kidney disease, CAD with prior Coronary artery bypass grafting, CHF. He was recently admitted twice to [facility] with decompensated HF. His last discharge was 04/12/23. He was discharged with lasix 60mg daily at that time. Cr 1.59. During February admission he was noted to have very frequent PVCs and he was started on Amiodarone at that time. On last visit a Holter monitor and nuclear stress test were ordered and he now presents for follow-up. Today he reports he has been feeling well since his last visit in March. He tells me his breathing is normal. No PND, orthopnea or edema. He sleeps with 2 pillows which is his norm. No chest discomfort at rest or with activity. No heart palpitations, lightheadedness, presyncope, syncope, falls. Taking his meds as directed. He ambulates with a cane. Family member present. Certified court registry officer used. [facility] Medical History CHF (congestive heart failure) Aortic stenosis PAD (peripheral artery disease) Heel ulcer Tobacco abuse Impacted cerumen of both ears Epidermoid cyst of skin of cheek Mass of face Allergic rhinitis Trigger finger, right middle finger Fracture of distal end of left radius with routine healing Superficial abrasion Pneumonia due to COVID-19 virus Acute hypoxemic respiratory failure due to COVID-19 Distal radius fracture, right Renal insufficiency Trigger finger, right middle finger Respiratory tract infection Preoperative clearance Iliac artery stenosis, 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 History of renal calculi Compression fracture of L1 lumbar vertebra Infective endocarditis Glaucoma Left carotid stenosis GERD (gastroesophageal reflux disease) Pulmonary nodule Cardiomyopathy Congestive heart failure Overweight (BMI 25.0-29.9) Carotid artery stenosis PVD (peripheral vascular disease) Dyslipidemia Hypertension CAD (coronary artery disease) Diabetic retinopathy associated with type 2 diabetes mellitus Diabetic polyneuropathy associated with type 2 diabetes mellitus CKD stage 3 due to type 2 diabetes mellitus Diabetic 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 diabetes mellitus intermediate (current) use of insulin Surgical History Hx of shoulder surgery Hx of coronary artery bypass graft Hx of cataract removal with insertion of prosthetic lens Hx of tonsillectomy Hx of appendectomy Hx of arthroscopy of right knee Family History Father Stomach cancer Mother Diabetes Brother Prostate abscess Social History Household Members: Spouse Housing: Apartment Do you presently have visiting nurse or other home services: Yes Alcohol intake: never Patient Tobacco Use Status: Never used Tobacco Tobacco use type: Cigarette Cigarette Packs Per Day: 0.25 Cigarettes Per Day: 3 Years Smoked: 65 e-Cigarette/Vaping Use: Never Used Second Hand Smoke Exposure: Yes Advance Directives Date on File: 06/08/21 service: No Current occupational status: 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 Cognitive needs: No Hearing needs: No Vision needs: No Review of Systems Const All systems reviewed & are unremarkable except as noted in HPI and below Reports fatigue (says he is Getting old) ENT Denies dizziness Card Denies chest pain, Denies chest pain at rest, Denies chest pain with activity, Denies rapid heart rate, Denies pedal edema, Denies edema, Denies leg edema, Denies lightheadedness, Denies palpitations, Denies dyspnea, Denies dyspnea on exertion and Denies orthopnea Resp Denies cough, Denies dyspnea and Denies dyspnea on exertion GI Denies hematochezia and Denies change in stool character Musc Denies abnormal gait, Denies limited range of motion, Denies muscle cramps, Denies muscle weakness, Denies numbness, Denies radiating pain into limb, Denies stiffness and Denies tingling Neuro Denies abnormal gait, Denies dizziness, Denies numbness and Denies tingling Endo Reports fatigue (says he is Getting old) and Denies palpitations Physical Exam Vital Signs: Last Vital Signs Pulse 70 06/13/23 09:55 BP 132/52 L 06/13/23 09:55 BMI result Body Mass Index 30.2 Const General: cooperative, healthy appearing, comfortable and no acute distress Orientation/consciousness: patient oriented x3 Neck Neck: Yes normal visual inspection Resp Effort & Inspection: normal respiratory effort Auscultation: clear to auscultation bilaterally, no rales, no rhonchi and no wheezes Cardio Jugular venous distension: no JVD Rate: regular rate Rhythm: regular rhythm Heart sounds: S1 normal heart sound present, S2 normal heart sound present, Murmur heart sound present (systolic right sternal border) and no rubs Neuro General: patient oriented x3 Extrem General: Yes normal to inspection, No no pedal edema and No calf tenderness Psych Appearance: grossly normal Mental Status: mental status grossly normal Speech and movement: Normal speech and movement present Office Procedures EKG Details: Today, read by me, sinus rhythm mod voltage for LVH, inferior q waves, rate 70, QTc 444ms [id number], Complete Assessment & Plan Assessment & Plan (1) Congestive heart failure: Code(s): I50.9 - Heart failure, unspecified Qualifiers: Heart failure chronicity: chronic Heart failure type: unspecified Qualified Code(s): I50.9 - Heart failure, unspecified Plan: [facility] admission mid February with increased shortness of breath. BNP elevated. Treated for acute on chronic diastolic heart failure. He was diuresed and developed DEAN. On discharge she was sent home with Lasix 40 mg daily. He was readmitted a month later with shortness of breath, hypoxic respiratory failure, pulmonary edema. He was diuresed again and put on Lasix 60 mg daily. Last echocardiogram done 12/09/2022 showed EF, elevated filling pressures, mild increase in the RV size, moderate aortic stenosis. A nuclear stress test was done on 05/27/2023 showing no ischemia, fixed septal defect. Today he reports that his breathing is now comfortable. No PND, orthopnea or edema. On exam he does not appear fluid overloaded. He has been monitoring his weight and tells me it is stable. He reports his office weight is more elevated due to his heavy clothing for the cold weather today. Following low-salt diet. Taking meds as directed. Reviewed that if he does have weight gain of over 3 lb in a day or 5 lb in a week to take an additional 20 mg of Lasix in the afternoon for 3 days. Reviewed signs and symptoms of heart failure with him. At this time will have him continue on current med management including Lasix 60 mg daily. Call if any change or concerning symptoms. Cardiology follow-up in 6 months, sooner if needed. (2) NSTEMI (non-ST elevated myocardial infarction): Code(s): I21.4 - Non-ST elevation (NSTEMI) myocardial infarction Plan: Demand NSTEMI last fall in the setting of pneumonia and Congestive heart failure. Treated at [facility]. He did not report chest discomfort. He has a known history of coronary artery disease with coronary artery bypass grafting approximately 6 years ago. He was recently admitted to [facility] x2 for Congestive heart failure. EKG done last visit showed sinus rhythm with frequent PVCs, nonspecific ST and T-wave abnormality, rate 81. Nuclear stress test was then done as above showing no ischemia, fixed septal defect. Condition seems stable at this time. He has no reports of anginal sounding symptoms. He is mostly sedentary. Continue current management with aspirin, plavix, rosuvastatin, isosorbide, amlodipine, losartan. At this time will be having him stop amiodarone and start on metoprolol. (3) Aortic stenosis: Comment: April 2021, December 2021 1.3 cm Code(s): I35.0 - Nonrheumatic aortic (valve) stenosis Plan: Echocardiogram 12/09/2022 shows moderate aortic stenosis, aortic valve area 1.64 centimeter sq, mean gradient 23 mmHg. Heart murmur noted on examination, 2nd heart tone audible. Plan for repeat echo prior to next visit (4) Hypertension: Code(s): I10 - Essential (primary) hypertension Qualifiers: Hypertension type: essential hypertension Qualified Code(s): I10 - Essential (primary) hypertension Plan: Normal range today. No med changes made. Will have him continue his current meds including metoprolol, amlodipine. (5) Dyslipidemia: Code(s): E78.5 - Hyperlipidemia, unspecified Plan: [place] LDL goal less than 70 in patient with CAD. Will order fasting lipids to be done with next lab draw. Order still pending. Continue rosuvastatin (6) PVC (premature ventricular contraction): Code(s): I49.3 - Ventricular premature depolarization Plan: Frequent PVCs noted during hospital admission in February. Was initially treated with metoprolol then carvedilol. He was then changed to amiodarone to help suppress frequency of PVCs. EKG done last visit shows sinus rhythm with frequent PVCs, 4 PVCs noted on 10 second EKG. He denies any heart palpitations. Holter monitor was done on 05/26/2023 for 3 days showing sinus rhythm with frequent PVCs, 7% of time, one 3 beat [address]VT. Reviewed with Dr. Beltran. Will have him stop amiodarone at this time as there is no strong indication for its use. Will have him restart on metoprolol XL 25 mg daily. Plan Time spent on chart review, documentation, interview and assessment Medications: New metoprolol succinate ER 25 mg PO DAILY 90 tabs 1RF Discontinued amiodarone Discontinued Reason: Doctor's Order 200 mg PO DAILY 30 tabs 5RF Coding Level of Care Code Est Pt Level 4 (23977) Diagnoses Chronic congestive heart failure, unspecified heart failure type I50.9 Heart failure chronicity: chronic Heart failure type: unspecified NSTEMI (non-ST elevated myocardial infarction) I21.4 Aortic stenosis I35.0 Essential hypertension I10 Hypertension type: essential hypertension Dyslipidemia E78.5 PVC (premature ventricular contraction) I49.3 CPT Codes EKG - CPT: [id number], Complete ([id number]) Time Spent (min) 28
[2023-06-13 09:55] VITALS: BP 132/52; PULSE 70; BMI 30.2
== END 2023-06-13 10:25 | disposition home or self-care (01) ==
PROVIDERS: PCP Internal Medicine; Visit Provider Nurse Practitioner Family
DX: I50.9 Heart failure, unspecified (principal); I21.4 Non-ST elevation (NSTEMI) myocardial infarction; I35.0 Nonrheumatic aortic (valve) stenosis; I10 Essential (primary) hypertension; E78.5 Hyperlipidemia, unspecified; I49.3 Ventricular premature depolarization
CPT/HCPCS: 93010; 99214

== ENCOUNTER → 2023-06-13 09:41 | Outpatient (BNVA) | payer MEDICARE, SELFPAY | PROVIDERS: PCP Internal Medicine; Visit Provider Nurse Practitioner Family | DX: I13.0 Hypertensive heart and chronic kidney disease with heart failure and stage 1 through stage 4 chronic kidney disease, or unspecified chronic kidney disease (principal); I50.9 Heart failure, unspecified; N18.9 Chronic kidney disease, unspecified; I25.10 Atherosclerotic heart disease of native coronary artery without angina pectoris; I21.4 Non-ST elevation (NSTEMI) myocardial infarction; I35.0 Nonrheumatic aortic (valve) stenosis; E78.5 Hyperlipidemia, unspecified; I49.3 Ventricular premature depolarization | CPT/HCPCS: 93005; 99212 ==

== ENCOUNTER 2023-07-25 09:16 | Outpatient (AMB) | payer MEDICARE, SELFPAY ==
--- NOTE | 2023-07-25 09:19 | MHC.PC.OV ---
Vital Signs 07/25/23 09:20 Height 5 ft 6 in Weight 184 lb BMI 29.7 BP 128/82 Blood Pressure Location Lt brachial Position Sitting Pulse 78 Pulse Source Pulse Oximeter Pulse Oximetry (%) 95 Oxygen Delivery Method Room Air Intake Visit Reasons: Brown spots all over body, very cold all the time Allergies No Known Allergies Allergy (Verified 07/25/23 09:20) Tobacco use date assessed: 05/07/23 Fall risk assessment: No Falls in past year Last assessed Fall Risk: 07/25/23 Dental Screening Dental Screen Date: 05/27/23 HPI Brown spots all over body, very cold all the time HPI Details 78-year-old obese male smoker with multiple medical problems. Diabetes mellitus hypercholesterolemia coronary artery disease chronic kidney disease congestive heart failure peripheral vascular disease coming in for follow-up. Last seen in May 2023. Patient is due for colonoscopy. Patient has aortic stenosis and had an November 2022 echocardiogram showing 1. 64 cm. Patient does follow-up with cardiology next echocardiogram is November 2024. 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 Patient had a nuclear stress test May 2023 myocardial perfusion imaging no reversible ischemia with infarction of the septum, ejection fraction 48% years. [place] [id number] interpret. stopped smoking 02/2024 also notes actinic keratosis, and hematomas on the skin [facility] Medical History (Updated 07/25/23 @ 09:35 by Marcia Clements MD) CHF (congestive heart failure) Aortic stenosis PAD (peripheral artery disease) Heel ulcer Tobacco abuse Impacted cerumen of both ears Epidermoid cyst of skin of cheek Mass of face Allergic rhinitis Trigger finger, right middle finger Fracture of distal end of left radius with routine healing Superficial abrasion Pneumonia due to COVID-19 virus Acute hypoxemic respiratory failure due to COVID-19 Distal radius fracture, right Renal insufficiency Trigger finger, right middle finger Respiratory tract infection Preoperative clearance Iliac artery stenosis, 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 History of renal calculi Compression fracture of L1 lumbar vertebra Infective endocarditis Glaucoma Left carotid stenosis GERD (gastroesophageal reflux disease) Pulmonary nodule Cardiomyopathy Congestive heart failure Overweight (BMI 25.0-29.9) Carotid artery stenosis PVD (peripheral vascular disease) Dyslipidemia Hypertension CAD (coronary artery disease) Diabetic retinopathy associated with type 2 diabetes mellitus Diabetic polyneuropathy associated with type 2 diabetes mellitus CKD stage 3 due to type 2 diabetes mellitus Diabetic 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 diabetes mellitus 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 Surgical History Hx of shoulder surgery Hx of coronary artery bypass graft Hx of cataract removal with insertion of prosthetic lens Hx of tonsillectomy Hx of appendectomy Hx of arthroscopy of right knee Family History Father Stomach cancer Mother Diabetes Brother Prostate abscess Social History Household Members: Spouse Housing: Apartment Do you presently have visiting nurse or other home services: Yes Alcohol intake: never Patient Tobacco Use Status: Never used Tobacco Tobacco use type: Cigarette Cigarette Packs Per Day: 0.25 Cigarettes Per Day: 3 Years Smoked: 65 e-Cigarette/Vaping Use: Never Used Second Hand Smoke Exposure: Yes Advance Directives Date on File: 06/08/21 service: No Current occupational status: 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 1. Little interest or pleasure in doing things: not at all 2. Feeling down, depressed, or hopeless: not at all 3. Trouble falling or staying asleep, or sleeping too much: not at all 4. Feeling tired or having little energy: not at all 5. Poor appetite or overeating: not at all 6. Feeling bad about yourself - or that you are a failure or have let yourself or your family down: not at all 7. Trouble concentrating on things, such as reading the newspaper or watching television: not at all 8. Moving or speaking so slowly that other people could have noticed. Or the opposite - being so fidgety or restless that you have been moving around a lot more than usual: not at all 9. Thoughts that you would be better off or of hurting yourself in some way: not at all Total score: 0 Depression Screening Interpretation: Negative Depression Screening Done: Yes 76103 - PHQ-9 Billing: Yes Source: Developed by Drs. Mendez Warren, Chelsea B.WKane Lawrence and colleagues, with an educational charisse from [employer]. Thrive Questionnaire Date Thrive assessed: 04/11/23 AUDIT C Alcohol Use Questionnaire (AUDIT-C) 1. How often do you have a drink containing alcohol?: Never 2. How many drinks containing alcohol do you have on a typical day when you are drinking?: 1 or 2 (0) 3. How often do you have six or more drinks on one occasion?: Never Total Score: 0 THIERNO-7 AMB Questionnaire THIERNO-7 Date THIERNO - 7 assessed: 05/07/23 Source: Developed by Drs. Mendez Warren, Kane Damon and colleagues, with an educational charisse from [employer]. Physical exam (Primary Care) Vital Signs: Oxygen Delivery Method Room Air 07/25/23 09:20 Tobacco/Smoking Status: Tobacco use Status Tobacco use date assessed 05/07/23 07/25/23 09:21 Patient Tobacco Use Status Never used Tobacco 07/25/23 09:21 Tobacco use type Cigarette 07/25/23 09:21 e-Cigarette/Vaping Use Never Used 07/25/23 09:21 PHQ-9: PHQ-9 Score PHQ-9: Total score 0 07/25/23 09:21 Depression Screening Interpretation: Negative Thrive Assessment: Date of Thrive Assessment Date Thrive assessed 04/11/23 07/25/23 09:21 Const General: alert; No acute distress Eyes Conjunctivae: conjunctivae normal Resp Auscultation: clear to auscultation bilaterally Cardio Rate: regular rate Rhythm: regular rhythm GI Inspection: Yes normal to inspection Extrem General: Yes normal to inspection and No edema Assessment and Plan Assessment & Plan (1) Aortic stenosis: Comment: April 2021, December 2021 1.3 cm November 2022 1.64 Code(s): I35.0 - Nonrheumatic aortic (valve) stenosis Plan: Continue to monitor patient follows up with Cardiology (2) CHF (congestive heart failure): Comment: Diastolic Code(s): I50.9 - Heart failure, unspecified Qualifiers: Heart failure chronicity: acute on chronic Heart failure type: unspecified Qualified Code(s): I50.9 - Heart failure, unspecified Plan: Weigh daily continue with the diuretics (3) Tobacco abuse: Comment: stopped 09/2021, continuing February 2023 Code(s): Z72.0 - Tobacco use Plan: Patient is strongly advised to stop smoking! (4) CAD (coronary artery disease): Code(s): I25.10 - Atherosclerotic heart disease of [place] coronary artery without angina pectoris Qualifiers: Coronary Disease-Associated Artery/Lesion type: [place] artery [place] vs. transplanted heart: [place] heart Associated angina: without angina Qualified Code(s): I25.10 - Atherosclerotic heart disease of [place] coronary artery without angina pectoris Plan: Control the cholesterol, weight, blood pressure, diabetes presently on clopidogrel (5) Dyslipidemia: Code(s): E78.5 - Hyperlipidemia, unspecified Plan: Avoid fried foods, chicken skin, eggs, butter margarine, pastries and meat. Be it pork or beef they have a lot of cholesterol patient is strongly advised to get the blood work done. Cholesterol LDL goal of less than 70 preferably less than 55 and triglyceride of less than 150. Patient on rosuvastatin 40 mg once a day (6) Cardiomyopathy: Code(s): I42.9 - Cardiomyopathy, unspecified Plan: Control the cholesterol, weight, blood pressure, diabetes (7) GERD (gastroesophageal reflux disease): Code(s): K21.9 - Gastro-esophageal reflux disease without esophagitis Qualifiers: Esophagitis presence: without esophagitis Qualified Code(s): K21.9 - Gastro-esophageal reflux disease without esophagitis Plan: Avoid the foods that causes that usually spicy foods, tomato products, juices, coffee, soda and foods that your sensitive to. After eating do not lie down, allow 3-4 hours before in lie down. And keep the head of bed above 30 degrees to avoid the acid from going up. (8) Type 2 diabetes mellitus with hyperglycemia: Code(s): E11.65 - Type 2 diabetes mellitus with hyperglycemia Qualifiers: Diabetes mellitus parts counterman insulin use: with chcf use Qualified Code(s): E11.65 - Type 2 diabetes mellitus with hyperglycemia; Z79.4 - 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 Plan: Decrease the amount of carbohydrate intake, pasta, bread, rice and potatoes are all sugar and that is aside from all the sweet stuff, remember that fruits are good but they are Sweet also. Hemoglobin A1c goal of less than 7.0 Comfort [place] Orders: Orders Comprehensive Met. Panel Today E87.5 - Hyperkalemia Lipid Panel Today E78.5 - Hyperlipidemia, unspecified TSH reflex Free T4 Today Z79.899 - Other chcf (current) drug therapy IRON PROFILE Today E11.65 - Type 2 diabetes mellitus with hyperglycemia, Z79.4 - senior living (current) use of insulin Vitamin B12 and Folate Today E11.65 - Type 2 diabetes mellitus with hyperglycemia, Z79.4 - 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 Magnesium Today E11.65 - Type 2 diabetes mellitus with hyperglycemia, Z79.4 - senior living (current) use of insulin Complete Blood Count Auto Diff Today Ferritin Today E11.65 - Type 2 diabetes mellitus with hyperglycemia, Z79.4 - senior living (current) use of insulin Reticulocyte Count Today E11.65 - Type 2 diabetes mellitus with hyperglycemia, Z79.4 - senior living (current) use of insulin B Type Natriuretic Peptide Today E11.65 - Type 2 diabetes mellitus with hyperglycemia, Z79.4 - senior living (current) use of insulin Coding Level of Care Code Est Pt Level 4 (27141) Diagnoses Aortic stenosis I35.0 CHF (congestive heart failure) I50.9 Heart failure chronicity: acute on chronic Heart failure type: unspecified Tobacco abuse Z72.0 Coronary artery disease involving [place] coronary artery of [place] heart without angina pectoris I25.10 Coronary Disease-Associated Artery/Lesion type: [place] artery [place] vs. transplanted heart: [place] heart Associated angina: without angina Dyslipidemia E78.5 Cardiomyopathy I42.9 Gastroesophageal reflux disease without esophagitis K21.9 Esophagitis presence: without esophagitis Type 2 diabetes mellitus with hyperglycemia, with long-term current use of insulin E11.65; Z79.4 Diabetes mellitus parts counterman insulin use: with parts counterman use
[2023-07-25 09:20] VITALS: BP 128/82; PULSE 78; O2SAT 95; BMI 29.7
== END 2023-07-25 10:33 | disposition home or self-care (01) ==
PROVIDERS: PCP Internal Medicine; Visit Provider Internal Medicine
DX: I35.0 Nonrheumatic aortic (valve) stenosis (principal); I50.9 Heart failure, unspecified; I25.10 Atherosclerotic heart disease of native coronary artery without angina pectoris; I42.9 Cardiomyopathy, unspecified; K21.9 Gastro-esophageal reflux disease without esophagitis; E11.65 Type 2 diabetes mellitus with hyperglycemia; Z79.4 Long term (current) use of insulin
CPT/HCPCS: 99214

== ENCOUNTER 2023-07-29 08:07 | Outpatient (REF) | payer MEDICARE, SELFPAY ==
[2023-07-29 08:32] LABS: MANUAL DIFF FLAG NO
[2023-07-29 09:14] LABS: Basophils Absolute Auto 0.1 X10*3/uL (0.0-0.2); Basophils Percent Auto 0.9 % (0-2); Eosinophils Absolute Auto 0.4 X10*3/uL (0.0-0.4); Eosinophils Percent Auto 3.9 % (0-4); Hematocrit 34.2 % (42.0-52.0); Hemoglobin 11.5 g/dl (14.0-18.0); Imm Gran Abs Auto 0.03 X10*3/uL (0.00-0.03); Imm Gran Pct Auto 0.3 % (0.0-0.4); Immature Retic Fraction 14.5 % (2.3-13.4); Lymphocytes Percent Auto 28.9 % (20-40); Mean Corpuscular HGB Conc 33.6 g/dl (31.0-36.0); Mean Corpuscular Hemoglobin 31.2 pg (27.0-33.0); Mean Corpuscular Volume 92.7 fL (80.0-98.0); Mean Platelet Volume 10.6 fL (9.4-12.4); Monocytes Absolute Auto 0.9 X10*3/uL (0.1-1.2); Monocytes Percent Auto 8.5 % (2-11); Neutrophils Absolute Auto 5.9 x10*3/uL (2.0-8.3); Neutrophils Percent Auto 57.5 % (45-73); Platelet Count 189 X10*3/uL (160-400); Red Blood Count 3.69 X10*6/uL (4.60-5.80); Red Cell Distribution Width 13.8 % (11.0-16.0); Retic HGB Equivalent 34.7 pg (30.0-35.0); Reticulocyte Percent 2.1 % (0.5-1.8); Reticulocytes Absolute 0.076 X10*6/uL (0.026-0.095); White Blood Count 10.2 X10*3/uL (4.8-10.8)
[2023-07-29 09:44] LABS: B Type Natriuretic Peptide 188 pg/mL (<100)
[2023-07-29 09:52] LABS: Alanine Aminotransferase 58 U/L (0-40); Albumin Level 4.1 g/dL (3.5-5.0); Alkaline Phosphatase 104 U/L (39-117); Anion Gap 18 (12-20); Aspartate Amino Transferase 33 U/L (5-37); Bilirubin Total 0.5 mg/dL (0.0-1.0); Blood Urea Nitrogen 33 mg/dL (9-16); Calcium 9.9 mg/dL (8.4-10.2); Carbon Dioxide 26 mmol/L (22-29); Chloride 103 mmol/L (96-108); Cholesterol 103 mg/dL (<200); Estimated Glomerular Filt Rate 34; Glucose Random 202 mg/dL (60-115); HDL Cholesterol 43 mg/dL (>40); Iron 93 mcg/dL (45-160); LDL Cholesterol Calculated 42 mg/dL (<100); Magnesium 2.1 mg/dL (1.6-2.6); Percent Iron Saturation 33 % (15-50); Potassium 4.6 mmol/L (3.3-5.1); Sodium 142 mmol/L (135-145); Total Iron Binding Capacity 280 mcg/dL (228-428); Total Protein 7.8 g/dL (6.5-8.0); Triglycerides 90 mg/dL (<150); Unsaturated Iron Binding 187 ug/dL
[2023-07-29 09:54] LABS: Creatinine Urine 65.86 mg/dL
[2023-07-29 10:11] LABS: Ferritin 188 ng/mL (20-250); TSH reflex Free T4 6.57 uIU/mL (0.32-4.0)
[2023-07-29 10:56] LABS: Folate 10.6 ng/mL (> or = 4.0); Vitamin B12 604 pg/mL (200-900)
[2023-07-29 11:08] LABS: Free T4 (Free Thyroxine) 1.03 ng/dL (0.71-1.85)
== END 2023-07-29 08:08 | disposition home or self-care (01) ==
LOC: HO.LAB 08:07
PROVIDERS: PCP Internal Medicine; Visit Provider Internal Medicine
DX: E87.5 Hyperkalemia (principal); E11.65 Type 2 diabetes mellitus with hyperglycemia; E78.5 Hyperlipidemia, unspecified; I25.10 Atherosclerotic heart disease of native coronary artery without angina pectoris; Z79.4 Long term (current) use of insulin; Z79.899 Other long term (current) drug therapy
CPT/HCPCS: 36415; 80053; 80061; 82570; 82607; 82728; 82746; 83540; 83735; 83880; 84439; 84443; 85025; 85045

== ENCOUNTER 2023-08-05 09:30 | Outpatient (AMB) | payer MEDICARE, SELFPAY ==
[2023-08-05 09:33] VITALS: BP 120/52; PULSE 54; O2SAT 95
--- NOTE | 2023-08-05 09:33 | HO.NEPHOV ---
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 Sustained hip fracture. Baseline creatinine is around 1.3-1.4 mg/dL. He underwent hip surgery on 12/10/2022. Creatinine has bumped up to 1.7 mg/dL and he was seen in consultation during hospitalization for DEAN He is here for follow up today Accompanied by family [facility] Medical History (Updated 07/25/23 @ 09:35 by Marcia Clements MD) CHF (congestive heart failure) Aortic stenosis PAD (peripheral artery disease) Heel ulcer Tobacco abuse Impacted cerumen of both ears Epidermoid cyst of skin of cheek Mass of face Allergic rhinitis Trigger finger, right middle finger Fracture of distal end of left radius with routine healing Superficial abrasion Pneumonia due to COVID-19 virus Acute hypoxemic respiratory failure due to COVID-19 Distal radius fracture, right Renal insufficiency Trigger finger, right middle finger Respiratory tract infection Preoperative clearance Iliac artery stenosis, 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 History of renal calculi Compression fracture of L1 lumbar vertebra Infective endocarditis Glaucoma Left carotid stenosis GERD (gastroesophageal reflux disease) Pulmonary nodule Cardiomyopathy Congestive heart failure Overweight (BMI 25.0-29.9) Carotid artery stenosis PVD (peripheral vascular disease) Dyslipidemia Hypertension CAD (coronary artery disease) Diabetic retinopathy associated with type 2 diabetes mellitus Diabetic polyneuropathy associated with type 2 diabetes mellitus CKD stage 3 due to type 2 diabetes mellitus Diabetic 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 diabetes mellitus alf (current) use of insulin Surgical History Hx of shoulder surgery Hx of coronary artery bypass graft Hx of cataract removal with insertion of prosthetic lens Hx of tonsillectomy Hx of appendectomy Hx of arthroscopy of right knee Family History Father Stomach cancer Mother Diabetes Brother Prostate abscess Social History Household Members: Spouse Housing: Apartment Do you presently have visiting nurse or other home services: Yes Alcohol intake: never Patient Tobacco Use Status: Never used Tobacco Tobacco use type: Cigarette Cigarette Packs Per Day: 0.25 Cigarettes Per Day: 3 Years Smoked: 65 e-Cigarette/Vaping Use: Never Used Second Hand Smoke Exposure: Yes Advance Directives Date on File: 06/08/21 service: No Current occupational status: 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 Cognitive needs: No Hearing needs: No Vision needs: No Physical Exam Vital Signs: Last Vital Signs Pulse 54 08/05/23 09:33 BP 120/52 L 08/05/23 09:33 Pulse Ox 95 08/05/23 09:33 Oxygen Delivery Method Room Air 08/05/23 09:33 BMI result Body Mass Index 30.0 Results Reviewed Nephrology Results: Hgb 11.5 g/dl (14.0-18.0) L 07/29/23 WBC 10.2 X10*3/uL (4.8-10.8) 07/29/23 Plt Count 189 X10*3/uL (160-400) 07/29/23 Sodium 142 mmol/L (135-145) 07/29/23 Potassium 4.6 mmol/L (3.3-5.1) 07/29/23 Chloride 103 mmol/L (96-108) 07/29/23 Carbon Dioxide 26 mmol/L (22-29) 07/29/23 BUN 33 mg/dL (9-16) H 07/29/23 Creatinine 1.94 mg/dL (0.5-1.4) H 07/29/23 Calcium 9.9 mg/dL (8.4-10.2) 07/29/23 Urine Creatinine 65.86 mg/dL 07/29/23 Assessment & Plan Assessment & Plan (1) CHF (congestive heart failure): Comment: Diastolic Code(s): I50.9 - Heart failure, unspecified Category: Medical Qualifiers: Heart failure chronicity: acute on chronic Heart failure type: unspecified Qualified Code(s): I50.9 - Heart failure, unspecified (2) CKD stage 3 due to type 2 diabetes mellitus: Code(s): E11.22 - Type 2 diabetes mellitus with diabetic chronic kidney disease; N18.30 - Chronic kidney disease, stage 3 unspecified Category: Medical Plan 78-year-old man with chronic kidney disease in the setting of longstanding diabetes mellitus congestive heart failure. He is sustained acute kidney injury most likely due to hypoperfusion. Recommendation Discontinue the evening dose of Lasix. Keep him on Lasix 40 mg p.o. q.a.m.. Encouraged him to stand low-sodium diet Continue overt nephrotoxic agents. Recheck renal panel in the next few weeks. Orders: Orders Complete Blood Count Auto Diff 3 Months N18.30 - Chronic kidney disease, stage 3 unspecified Comprehensive Met. Panel 3 Months N18.9 - Chronic kidney disease, unspecified Coding Level of Care Code Est Pt Level 4 (41273) Diagnoses CHF (congestive heart failure) I50.9 Heart failure chronicity: acute on chronic Heart failure type: unspecified CKD stage 3 due to type 2 diabetes mellitus E11.22; N18.30
== END 2023-08-05 09:51 | disposition home or self-care (01) ==
PROVIDERS: PCP Internal Medicine; Visit Provider Internal Medicine Hypertension Specialist
DX: I50.9 Heart failure, unspecified (principal); E11.22 Type 2 diabetes mellitus with diabetic chronic kidney disease; N18.30 Chronic kidney disease, stage 3 unspecified
CPT/HCPCS: 99214

== ENCOUNTER → 2023-08-05 09:30 | Outpatient (BNVA) | payer MEDICARE, SELFPAY | PROVIDERS: PCP Internal Medicine; Visit Provider Internal Medicine Hypertension Specialist | DX: E11.22 Type 2 diabetes mellitus with diabetic chronic kidney disease (principal); N18.30 Chronic kidney disease, stage 3 unspecified; I50.9 Heart failure, unspecified; Z79.899 Other long term (current) drug therapy | CPT/HCPCS: 99212 ==

== ENCOUNTER 2023-08-12 10:39 | Outpatient (REF) | payer MEDICARE, SELFPAY ==
--- NOTE | ~2023-08-12 | US_ITS ---
EXAMINATION: Noninvasive assessment of the bilateral lower extremities with ARTERIAL DUPLEX and ANKLE BRACHIAL INDICES (ABIs). CLINICAL INFORMATION: Peripheral vascular disease with history of superficial femoral artery angioplasty TECHNIQUE: Duplex Doppler techniques with waveform analysis and measurement of velocities in the bilateral common femoral, profunda femoris, superficial femoral, popliteal and tibial arteries were performed. Additionally, ankle pulse volume recordings, ankle pressure measurements and ankle brachial indices were obtained of the lower extremity arterial system bilaterally. The study was performed only at rest. COMPARISON: 03/22/2023 and angiogram from 03/26/2023 FINDINGS: DIRECT DUPLEX DOPPLER FINDINGS: RIGHT LEG: Common femoral artery: 179 cm/s, phasicity: Biphasic Profunda femoris artery: 173 cm/s, phasicity: Biphasic Superficial femoral artery (proximal): Ranges from 7 to 218.2 cm/s, phasicity: Biphasic. Diffuse calcified plaque Superficial femoral artery (mid): 264 cm/s, phasicity: Biphasic. Diffuse calcified plaque Superficial femoral artery (distal): 81.5 cm/s, phasicity: Biphasic Popliteal artery: 75.4 cm/s, phasicity: Biphasic Posterior tibial artery: 33.1 cm/s, phasicity: Monophasic Peroneal artery: 36.2 cm/s, phasicity: Monophasic Anterior tibial artery: 10 cm/s, phasicity: Monophasic Dorsalis pedis artery: 33.3 cm/s, phasicity:Monophasic LEFT LEG: Common femoral artery: 216 cm/s, phasicity: Biphasic Profunda femoris artery: 155 cm/s, phasicity: Biphasic Superficial femoral artery (proximal): 184 cm/s, phasicity: Biphasic. Diffuse calcified plaque Superficial femoral artery (mid): 335 cm/s, phasicity: Biphasic. Diffuse calcified plaque Superficial femoral artery (distal): 94.5 cm/s, phasicity: Biphasic. Diffuse calcified plaque Popliteal artery: 82.5 cm/s, phasicity: Biphasic Posterior tibial artery: 52.9 cm/s, phasicity: Monophasic Peroneal artery: Not visualized Anterior tibial artery: 11.3 cm/s, phasicity: Monophasic Dorsalis pedis artery: 17.3 cm/s, phasicity: Monophasic ANKLE-BRACHIAL INDEX: Right: 1.35? Left: 1.35 ANKLE PRESSURES: Right: PT 200, DP 200 Left: PT?200, DP?200 ANKLE PVR WAVEFORMS: Right: Abnormal Left: Abnormal US/US arterial duplex BI w/ STAR IMPRESSION: Right leg: Elevated ankle brachial indices with noncompressible pedal vessels. Duplex ultrasound demonstrates diffuse calcified plaque throughout the superficial femoral artery with tandem areas of stenosis in the proximal and mid segments. Dampened waveforms seen in the below-knee runoff vessels consistent with small vessel disease Left leg: Elevated ankle brachial indices with noncompressible pedal vessels. Duplex ultrasound demonstrates diffuse calcified plaque throughout the superficial femoral artery with tandem areas of stenosis in the proximal and mid segments. Dampened waveforms seen in the below-knee runoff vessels consistent with small vessel disease
== END 2023-08-12 10:40 | disposition home or self-care (01) ==
LOC: HO.US 10:39
PROVIDERS: PCP Internal Medicine; Visit Provider Surgery Vascular Surgery
DX: Z13.89 Encounter for screening for other disorder (principal)

== ENCOUNTER 2023-08-16 16:23 | Emergency (ER) | payer MEDICARE, SELFPAY ==
--- NOTE | ~2023-08-16 | XR_ITS ---
EXAMINATION: XR CHEST CLINICAL INFORMATION: Cough COMPARISON: 04/10/2023 TECHNIQUE: 2 views of the chest were obtained. FINDINGS: Evidence for previous cardiac surgery. Heart size normal. No CHF. Patchy lingula infiltration noted as well as central peribronchial thickening. No pleural effusion. Lungs appear mildly hyperinflated. No other focal lesion. XR/XR chest 2V IMPRESSION: Lingular infiltrate consistent with pneumonia. Underlying airway disease..
[2023-08-16 17:18] VITALS: BP 141/48; PULSE 59; RESP 18; TEMP 36.3; O2SAT 97; BMI 28.5
--- NOTE | 2023-08-16 17:22 | ED.GENADULT ---
HPI - General Adult General Chief complaint: Upper Respiratory Symptoms Stated complaint: sob coughing weakness Time Seen by Provider: 08/17/23 06:37 Source: patient Mode of arrival: ambulatory Limitations: no limitations History of Present Illness ED Provider: Tania Crisostomo PA-C HPI narrative: Patient is a 78 year old assigned male at with a history of CHF, CKD, and DM presenting to the emergency department today with a cough and chills. Patient states that over the last 3 days he has had a cough and chills. Patient denies any dizziness, lightheadedness, abdominal pain, nausea, vomiting, fever, blurry vision, double vision, loss of vision, chest pain, difficulty breathing, shortness of breath, back pain, night sweats, pain with urination, increased urinary frequency, increased urinary urgency, blood in his urine or stool, syncope or a near syncopal episode, recent trauma or falls, bowel incontinence, bladder incontinence, bowel retention, bladder retention, or any other complaints at this time. Onset (ago): day(s) (3) Severity: mild Severity scale (1-10): 3 Relieving factors: none Exacerbating factors: none Associated symptoms: cough Treatments prior to arrival: none Related Data Home Medications ?Medication ?Instructions ?Recorded ?Confirmed dorzolamide 22.3 mg-timolol 6.8 1 drp ophthalmic (eye) BID 06/07/21 06/13/23 mg/mL eye drops multivitamin 1 tab PO BEDTIME 06/07/21 06/13/23 aspirin 81 mg tablet,delayed 81 mg PO BEDTIME 12/09/22 06/13/23 release brimonidine 0.15 % eye drops 1 drp ophthalmic (eye) BID 12/09/22 06/13/23 rosuvastatin 40 mg tablet 40 mg PO BEDTIME 12/09/22 06/13/23 collagenase clostridium histo. 250 1 appl topical DAILY 03/03/23 06/13/23 unit/gram topical ointment (Santyl) ascorbic acid (vitamin C) 500 mg 500 mg PO BEDTIME PRN 08/05/23 tablet docusate sodium 100 mg capsule 200 mg PO DAILY PRN 08/05/23 Previous Rx's ?Medication ?Instructions ?Recorded acetaminophen 500 mg tablet 500 mg PO Q6H PRN pain or fever 01/30/21 (Tylenol Extra Strength) #20 tabs blood sugar diagnostic (FreeStyle #150 ea 08/05/22 Lite Strips) 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 meter (FreeStyle #1 ea 08/05/22 [place] Lite kit) lancets 28 gauge (FreeStyle #100 ea 08/05/22 Lancets) gabapentin 300 mg capsule 300 mg PO BEDTIME #90 caps 11/21/22 hospital bed #1 ea 01/02/23 HOSPITAL BED #1 ea 01/07/23 diabetic shoe lift #1 ea 03/14/23 diabetic shoes #2 ea 03/14/23 amlodipine 10 mg tablet 10 mg PO BEDTIME #90 tabs 03/19/23 clopidogrel 75 mg tablet (Plavix) 75 mg PO DAILY #30 tabs 04/22/23 furosemide 40 mg tablet 40 mg PO DAILY #30 tabs 04/22/23 isosorbide mononitrate 30 mg 30 mg PO DAILY #30 tabs 04/22/23 tablet,extended release 24 hr dulaglutide 1.5 mg/0.5 mL 1.5 mg (0.5 mL) subcut PONCE@0900 4 05/07/23 subcutaneous pen injector weeks #2 mL (Trulicity) pen needle, diabetic 32 gauge x #400 ea 05/07/23 (BD Martina 2nd Gen Pen Needle) silver sulfadiazine 1 % topical 1 appl topical BID 30 days #400 05/07/23 cream (Silvadene) grams insulin degludec 100 unit/mL (3 20 unit (0.2 mL) subcut BEDTIME 05/27/23 mL) subcutaneous pen #15 mL insulin lispro 100 unit/mL 6 unit (0.06 mL) subcut TIDAC #15 05/27/23 subcutaneous pen (Humalog KwikPen mL (U-100) Insulin) benzonatate 200 mg capsule 200 mg PO BID-TID PRN cough #20 05/28/23 caps metoprolol succinate 25 mg 25 mg PO DAILY #90 tabs 06/13/23 tablet,extended release 24 hr nicotine 14 mg/24 hr daily 1 patch transdermal DAILY #28 ea 06/27/23 transdermal patch amoxicillin 875 mg-potassium 1 tab PO BID 10 days #20 tabs 08/17/23 clavulanate 125 mg tablet Allergies Allergy/AdvReac Type Severity Reaction Status Date / Time No Known Allergies Allergy Verified 08/16/23 17:22 Review of Systems Constitutional: Constitutional: Reports no additional constitutional complaints, Reports chills, Denies fever(s) and Denies night sweats Eyes: Eyes: Reports no additional eye complaints, Denies blurry vision, Denies change in vision, Denies diplopia, Denies eye discharge, Denies loss of vision and Denies eye pain ENT: Denies dizziness Cardiovascular: Cardiovascular: Reports no additional cardiovascular complaints, Denies chest pain, Denies lightheadedness, Denies Loss of Consciousness and Denies dyspnea Respiratory: Respiratory: Reports no additional respiratory complaints, Reports cough and Denies dyspnea Gastrointestinal: Gastrointestinal: Reports no additional gastrointestinal complaints, Denies abdominal pain, Denies melena, Denies hematochezia, Denies change in bowel habits and Denies change in stool character Genitourinary: Genitourinary: Reports no additional male genitourinary complaints, Denies hematuria, Denies oliguria, Denies difficulty urinating, Denies dysuria, Denies urinary frequency, Denies urinary hesitancy, Denies urinary incontinence and Denies urinary urgency Musculoskeletal: Musculoskeletal: Reports no additional musculoskeletal complaints, Denies numbness and Denies tingling Neurologic: Denies dizziness, Denies loss of vision, Denies numbness and Denies tingling Psychiatric: Psychiatric: Reports no additional psychiatric complaints Endocrine: Endocrine: Reports no additional endocrine complaints Hematologic/Lymphatic: Hematologic/Lymphatic: Reports no additional hematologic/lymphatic complaints Allergic/Immunologic: Allergic/Immunologic: Reports no additional allergic/immunologic complaints [facility] Past Medical History Attestation statement: The following information was validated with the patient. Source: old records reviewed and nursing notes reviewed Medical History CHF (congestive heart failure) Aortic stenosis PAD (peripheral artery disease) Heel ulcer Tobacco abuse Impacted cerumen of both ears Epidermoid cyst of skin of cheek Mass of face Allergic rhinitis Trigger finger, right middle finger Fracture of distal end of left radius with routine healing Superficial abrasion Pneumonia due to COVID-19 virus Acute hypoxemic respiratory failure due to COVID-19 Distal radius fracture, right Renal insufficiency Trigger finger, right middle finger Respiratory tract infection Preoperative clearance Iliac artery stenosis, 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 History of renal calculi Compression fracture of L1 lumbar vertebra Infective endocarditis Glaucoma Left carotid stenosis GERD (gastroesophageal reflux disease) Pulmonary nodule Cardiomyopathy Congestive heart failure Overweight (BMI 25.0-29.9) Carotid artery stenosis PVD (peripheral vascular disease) Dyslipidemia Hypertension CAD (coronary artery disease) Diabetic retinopathy associated with type 2 diabetes mellitus Diabetic polyneuropathy associated with type 2 diabetes mellitus CKD stage 3 due to type 2 diabetes mellitus Diabetic 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 diabetes mellitus 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 Surgical History Hx of shoulder surgery Hx of coronary artery bypass graft Hx of cataract removal with insertion of prosthetic lens Hx of tonsillectomy Hx of appendectomy Hx of arthroscopy of right knee Family History Family History Father Stomach cancer Mother Diabetes Brother Prostate abscess Social History Social History Household Members: Spouse Housing: Apartment Do you presently have visiting nurse or other home services: Yes Alcohol intake: never Patient Tobacco Use Status: Never used Tobacco Tobacco use type: Cigarette Cigarette Packs Per Day: 0.25 Cigarettes Per Day: 3 Years Smoked: 65 e-Cigarette/Vaping Use: Never Used Second Hand Smoke Exposure: Yes Advance Directives: Yes Advance Directives on File: Yes Advance Directives Date on File: 06/08/21 service: No Current occupational status: 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 Cognitive needs: No Hearing needs: No Vision needs: No Physical Exam ED Vital Signs: Vital Signs - 24 hr 08/16/23 17:18 08/17/23 07:29 Temperature 97.3 F 98.4 F Pulse Rate 59 72 Respiratory Rate 18 16 Blood Pressure 141/48 H 125/51 L Pulse Oximetry 97 96 Oxygen Delivery Method Room Air Room Air BMI result Body Mass Index 28.5 Const General: cooperative, no acute distress, alert and awake Nutritional Appearance: well nourished Orientation/consciousness: patient oriented x3 Limitations: no limitations HENMT Head: Yes normal to inspection and Yes atraumatic Ears: hearing grossly normal bilaterally and external ears normal General nose exam: Normal external nose present, no nasal discharge noted and no epistaxis Face and sinus: Yes normal facial exam, No abrasion and No laceration Mouth: Normal oral and palatal mucosa present, no drooling and no muffled voice Eyes General: appearance normal, both eyes and all related structures Periorbital: periorbital findings normal Eyelids: Yes eyelids normal Conjunctivae: conjunctivae normal Pupils: Equal, round and reactive pupils present EOM: EOMs intact bilaterally Neck Neck: Yes normal visual inspection, Yes full ROM and Yes no lymphadenopathy Chest Chest palpation & inspection: normal inspection of the chest Resp Effort & Inspection: normal respiratory effort and able to speak in complete sentences Auscultation: clear to auscultation bilaterally GI Inspection: Yes normal to inspection Neuro General: patient oriented x3 and moves all extremities Cranial nerves: Yes Equal, round and reactive pupils present Cognition (Neuro): normal cognition Motor exam (neuro): 5/5 motor strength present throughout Sensory Exam: Normal double simultaneous stimulation for sensation Coordination: [id number] test normal Extrem General: Yes normal to inspection, Yes full ROM and Yes capillary refill normal Psych Appearance: grossly normal Mental Status: mental status grossly normal Affect: normal affect Attitude: cooperative Thought process: Normal thought process present Thought content: Normal thought content present Insight: Good insight present (Psych) Course Course Course Narrative: This is an RME: Additional HPI, ROS, PE not included below will be deferred to primary provider. 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 Plan: EKG, chest x-ray, labs Medical Decision Making Medical Decision Making MDM Narrative: Patient is a 78 year old assigned male at with a history of CHF, CAD, CKD, and DM presenting to the emergency department today with a cough and chills. Patient's physical exam was unremarkable. Patient's blood work showed chronically elevated kidney function but are otherwise unremarkable. Patient's EKG from 08/16/2023 was unremarkable. Patient's chest x-ray showed a lingular infiltrate consistent with pneumonia. I explained my physical exam findings as well as all test results to the patient. I answered all questions asked by the patient. I stressed the importance of the patient taking his medication as prescribed. I stressed the importance of the patient following up with his primary care provider. I stressed the importance of the patient returning to the emergency department immediately if his symptoms were to worsen or if he were to develop any dizziness, shortness of breath, difficulty breathing, chest pain, blurry vision, loss of vision, nausea, vomiting, abdominal pain, fever, chills, back pain, or any other complaints. Patient verbalized agreement and understanding with this treatment plan and discharge. Differential Diagnosis Differential Diagnoses: The differential diagnosis associated with the presentation includes Pneumonia Cough URI COVID-19 Influenza RSV Admission/Observation Consideration of admission/observation: Escalation of care including admission/observation considered Patient would have been admitted to the hospital had his work up had any findings where hospital admission was appropriate and his clinical presentation warranted hospital admission. Lab Data [facility] Lab Attestation statement: I reviewed the patient's lab results. My interpretation of these results are in the [facility] Rationale portion of this note. 08/16/23 17:57 08/16/23 17:56 Labs: Lab Results 08/16/23 08/16/23 Range/Units 17:56 17:57 WBC 8.0 (4.8-10.8) X10*3/uL RBC 3.75 L (4.60-5.80) X10*6/uL Hgb 11.8 L (14.0-18.0) g/dl Hct 35.1 L (42.0-52.0) % MCV 93.6 (80.0-98.0) fL MCH 31.5 (27.0-33.0) pg MCHC 33.6 (31.0-36.0) g/dl RDW 14.0 (11.0-16.0) % Plt Count 151 L (160-400) X10*3/uL MPV 10.3 (9.4-12.4) fL Immature Gran % (Auto) 0.3 (0.0-0.4) % Neut % (Auto) 53.3 (45-73) % Lymph % (Auto) 25.0 (20-40) % Gray % (Auto) 14.4 H (2-11) % Eos % (Auto) 6.1 H (0-4) % Baso % (Auto) 0.9 (0-2) % Lymph # (Auto) 2.0 (1.2-4.9) X10*3/uL Gray # (Auto) 1.2 (0.1-1.2) X10*3/uL Eos # (Auto) 0.5 H (0.0-0.4) X10*3/uL Baso # (Auto) 0.1 (0.0-0.2) X10*3/uL Abs Immat Gran (auto) 0.02 (0.00-0.03) X10*3/uL Absolute Neuts (auto) 4.3 (2.0-8.3) x10*3/uL Absolute Nucleated RBC 0.000 (0.0-0.012) X10*3/uL Nucleated RBC % (auto) 0.0 (0.0-0.2) /100WBC Sodium 140 (135-145) mmol/L Potassium 4.7 (3.3-5.1) mmol/L Chloride 103 (96-108) mmol/L Carbon Dioxide 25 (22-29) mmol/L Anion Gap 17 (12-20) BUN 45 H (9-16) mg/dL Creatinine 2.12 H (0.5-1.4) mg/dL Estim Creat Clear Calc 29.9 Estimated GFR 30 Random Glucose 331 H (60-115) mg/dL Calcium 9.6 (8.4-10.2) mg/dL Total Bilirubin 0.5 (0.0-1.0) mg/dL Direct Bilirubin 0.2 (0.0-0.5) mg/dL AST 24 (5-37) U/L ALT 33 (0-40) U/L Alkaline Phosphatase 106 (39-117) U/L Troponin I High Sens 13.1 (<3.5-35.0) ng/L Total Protein 8.1 H (6.5-8.0) g/dL Albumin 4.2 (3.5-5.0) g/dL Lipase 71 (8-78) U/L Influenza Type A (PCR) NEGATIVE (Negative) Influenza Type B (PCR) NEGATIVE (Negative) RSV RNA Qual (PCR) NEGATIVE (Negative) SARS-CoV-2 RNA (RT-PCR) NEGATIVE (Negative) Independent Interpretation I performed an independent interpretation of an: EKG and Plain X-Ray Interpretation: My interpretation is in agreement with the radiologist's impression of this imaging study. EXAMINATION: XR CHEST CLINICAL INFORMATION: Cough COMPARISON: 04/10/2023 TECHNIQUE: 2 views of the chest were obtained. FINDINGS: Evidence for previous cardiac surgery. Heart size normal. No CHF. Patchy lingula infiltration noted as well as central peribronchial thickening. No pleural effusion. Lungs appear mildly hyperinflated. No other focal lesion. XR/XR chest 2V IMPRESSION: Lingular infiltrate consistent with pneumonia. Underlying airway disease.. Dictated By: Zac Renee MD Signed By: Electronically signed by Zac Renee MD 08/16/231924 Vent. Rate: 067 BPM Atrial Rate: 067 BPM P-R Int: 164 ms QRS Dur: 088 ms QT Int: 450 ms P-R-T Axes: 000 -26 083 degrees QTc Int: 475 ms Sinus rhythm with frequent Premature ventricular complexes Inferior infarct (cited on or before 10-APR-2023) Abnormal ECG When compared with ECG of 10-APR-2023 06:57, Premature ventricular complexes are now Present Aberrant conduction is no longer Present DD/ [id number] Radiology Impression Discussion of test interpretation with radiology: I have reviewed the radiologist's reading. Prescription Management I considered prescription management with: Antibiotic (patient prescribed an antibiotic for PNA) Chronic Conditions Patient?s care impacted by: Diabetes Discharge Plan Discharge Clinical Impression: Pneumonia Patient Disposition: Home, Self-Care Instructions: Pneumonia (ED) Additional Instructions: Follow up with your primary care provider. Return to the emergency department immediately if your symptoms worsen or if you develop any dizziness, shortness of breath, difficulty breathing, chest pain, blurry vision, loss of vision, nausea, vomiting, abdominal pain, fever, chills, back pain, or any other complaints. Prescriptions: New amoxicillin-pot clavulanate 875-125 mg tablet 1 tab PO BID 10 Days Qty: 20 0RF No Action (DME) hospital bed See Rx Instructions .Route .MEDSUPPLY Qty: 1 0RF Rx Instructions: As directed (DME) HOSPITAL BED See Rx Instructions .Route .MEDSUPPLY Qty: 1 0RF Rx Instructions: [place] [place] lift 1 inch See Rx Instructions .Route .MEDSUPPLY Qty: 1 0RF Rx Instructions: As directed (DME) diabetic shoes See Rx Instructions .Route .MEDSUPPLY Qty: 2 0RF Rx Instructions: As directed amlodipine 10 mg tablet 10 mg PO BEDTIME Qty: 90 0RF isosorbide mononitrate 30 mg tablet extended release 24 hr 30 mg PO DAILY Qty: 30 5RF Protocol: Hold for SBP< HOLD for SBP < : 90 clopidogrel [Plavix] 75 mg tablet 75 mg PO DAILY Qty: 30 5RF furosemide 40 mg tablet 40 mg PO DAILY Qty: 30 5RF Protocol: Hold for SBP< HOLD for SBP < : 90 benzonatate 200 mg capsule 200 mg PO BID-TID PRN (Reason: cough) Qty: 20 0RF nicotine 14 mg/24 hr patch 24 hour 1 patch transdermal DAILY Qty: 28 0RF acetaminophen [Tylenol Extra Strength] 500 mg tablet 500 mg PO Q6H PRN (Reason: pain or fever) Qty: 20 0RF dorzolamide-timolol 22.3-6.8 mg/mL drops 1 drp ophthalmic (eye) BID multivitamin Tablet 1 tab PO BEDTIME ascorbic acid (vitamin C) 500 mg tablet 500 mg PO BEDTIME PRN brimonidine 0.15 % drops 1 drp ophthalmic (eye) BID aspirin 81 mg tablet,delayed release (DR/EC) 81 mg PO BEDTIME rosuvastatin 40 mg tablet 40 mg PO BEDTIME Santyl 250 unit/gram ointment 1 appl topical DAILY (DME) FreeStyle Lite Strips Strip See Rx Instructions .ROUTE .MEDSUPPLY Qty: 150 11RF Rx Instructions: As directed four times a day (DME) 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 meter [FreeStyle [place]on Lite] Kit See Rx Instructions .ROUTE .MEDSUPPLY Qty: 1 0RF Rx Instructions: As directed (DME) lancets [FreeStyle Lancets] 28 gauge misc See Rx Instructions .ROUTE .MEDSUPPLY Qty: 100 3RF Rx Instructions: As directed check BS QD gabapentin 300 mg capsule 300 mg PO BEDTIME Qty: 90 2RF insulin degludec 100 unit/mL (3 mL) insulin pen 20 unit subcut BEDTIME Qty: 15 3RF insulin lispro [Humalog KwikPen Insulin] 100 unit/mL insulin pen 6 unit subcut TIDAC Qty: 15 3RF Rx Instructions: before meals as directed silver sulfadiazine [Silvadene] 1 % cream 1 appl topical BID 30 Days Qty: 400 0RF Rx Instructions: apply a 1.5 mm thickness around ulcer Trulicity 1.5 mg/0.5 mL pen injector 1.5 mg subcut PONCE@0900 28 Days Qty: 2 3RF (DME) pen needle, diabetic [BD Martina 2nd Gen Pen Needle] 32 gauge x 5/32 needle See Rx Instructions .MEDSUPPLY Qty: 400 4RF Rx Instructions: 5 times a day metoprolol succinate 25 mg tablet extended release 24 hr 25 mg PO DAILY Qty: 90 1RF docusate sodium 100 mg capsule 200 mg PO DAILY PRN Referrals: Tyree,Marcia Overton MD [Primary Care Provider] - Interventions: ED Discharge Assessment Last Done: 08/17/23 07:29 Discharge Date/Time: 08/17/23 07:30 Print Language: Swedish
--- NOTE | 2023-08-16 17:25 | ECG_ITS ---
Test Reason : CHEST PAIN Blood Pressure : / mmHG Vent. Rate : 067 BPM Atrial Rate : 067 BPM P-R Int : 164 ms QRS Dur : 088 ms QT Int : 450 ms P-R-T Axes : 000 -26 083 degrees QTc Int : 475 ms Sinus rhythm with frequent Premature ventricular complexes Inferior infarct (cited on or before 10-APR-2023) Abnormal ECG When compared with ECG of 10-APR-2023 06:57, Premature ventricular complexes are now Present Aberrant conduction is no longer Present Referred By: Kellie Bob Electronically Signed By:Lai Hudson
[2023-08-16 18:03] LABS: MANUAL DIFF FLAG NO
[2023-08-16 18:07] LABS: Basophils Absolute Auto 0.1 X10*3/uL (0.0-0.2); Basophils Percent Auto 0.9 % (0-2); Eosinophils Absolute Auto 0.5 X10*3/uL (0.0-0.4); Eosinophils Percent Auto 6.1 % (0-4); Hematocrit 35.1 % (42.0-52.0); Hemoglobin 11.8 g/dl (14.0-18.0); Imm Gran Abs Auto 0.02 X10*3/uL (0.00-0.03); Imm Gran Pct Auto 0.3 % (0.0-0.4); Mean Corpuscular HGB Conc 33.6 g/dl (31.0-36.0); Mean Corpuscular Hemoglobin 31.5 pg (27.0-33.0); Mean Corpuscular Volume 93.6 fL (80.0-98.0); Mean Platelet Volume 10.3 fL (9.4-12.4); Monocytes Absolute Auto 1.2 X10*3/uL (0.1-1.2); Monocytes Percent Auto 14.4 % (2-11); Neutrophils Absolute Auto 4.3 x10*3/uL (2.0-8.3); Neutrophils Percent Auto 53.3 % (45-73); Platelet Count 151 X10*3/uL (160-400); Red Blood Count 3.75 X10*6/uL (4.60-5.80)
[2023-08-16 18:22] LABS: Alanine Aminotransferase 33 U/L (0-40); Albumin Level 4.2 g/dL (3.5-5.0); Alkaline Phosphatase 106 U/L (39-117); Anion Gap 17 (12-20); Aspartate Amino Transferase 24 U/L (5-37); Bilirubin Direct 0.2 mg/dL (0.0-0.5); Bilirubin Total 0.5 mg/dL (0.0-1.0); Blood Urea Nitrogen 45 mg/dL (9-16); Calcium 9.6 mg/dL (8.4-10.2); Carbon Dioxide 25 mmol/L (22-29); Chloride 103 mmol/L (96-108); Creatinine Clr Calc Pharmacy 29.9; Estimated Glomerular Filt Rate 30; Glucose Random 331 mg/dL (60-115); Lipase 71 U/L (8-78); Potassium 4.7 mmol/L (3.3-5.1); Sodium 140 mmol/L (135-145); Total Protein 8.1 g/dL (6.5-8.0)
[2023-08-16 18:31] LABS: Troponin-I High Sensitivity 13.1 ng/L (<3.5-35.0)
[2023-08-16 18:50] LABS: Influenza A PCR NEGATIVE (Negative); Influenza B PCR NEGATIVE (Negative); Resp Syncy Virus RNA Qual PCR NEGATIVE (Negative); SARS COV2 PCR INHOUSE NEGATIVE (Negative)
[2023-08-17 07:29] VITALS: BP 125/51; PULSE 72; RESP 16; TEMP 36.9; O2SAT 96
== END 2023-08-17 07:30 | disposition home or self-care (01) ==
PROVIDERS: Physician Assistant Medical; Emergency Provider Student in an Organized Health Care Education/Training Program; PCP Internal Medicine
DX: J18.9 Pneumonia, unspecified organism (principal); I13.0 Hypertensive heart and chronic kidney disease with heart failure and stage 1 through stage 4 chronic kidney disease, or unspecified chronic kidney disease; I50.30 Unspecified diastolic (congestive) heart failure; N18.30 Chronic kidney disease, stage 3 unspecified; E11.22 Type 2 diabetes mellitus with diabetic chronic kidney disease; Z79.4 Long term (current) use of insulin
CPT/HCPCS: 0241U; 36415; 71046; 80048; 80076; 83690; 84484; 85025; 93005; 99283

== ENCOUNTER → 2023-08-16 17:25 | Outpatient (BNV) | payer MEDICARE, SELFPAY | PROVIDERS: Emergency Provider Student in an Organized Health Care Education/Training Program; PCP Internal Medicine; Visit Provider Internal Medicine Cardiovascular Disease | DX: R07.9 Chest pain, unspecified (principal) | CPT/HCPCS: 93010 ==

== ENCOUNTER 2023-08-20 14:42 | Outpatient (AMB) | payer MEDICARE, SELFPAY ==
--- NOTE | 2023-08-20 14:42 | A.OFFPC_ITS ---
Vital Signs 08/20/23 14:43 BP 115/55 L Position Sitting Intake Visit Reasons: booked per Dr Ramírez comments First Beater Required: No Allergies No Known Allergies Allergy (Verified 08/20/23 14:45) Tobacco use date assessed: 08/20/23 Fall risk assessment: No Falls in past year Last assessed Fall Risk: 08/20/23 Dental Screening Dental Screen Date: 05/27/[address] Ramírez comments HPI Details 78-year-old male smoker with multiple me dical problems from aortic stenosis congestive heart failure, coronary artery disease hypercholesterolemia cardiomyopathy GERD diabetes mellitus calling through Telehealth. Review of the notes was recently in the emergency room 08/17/2023 cough and chills for the last 3 days. Patient had a chest x-ray showing lingular infiltrate consistent with pneumonia and was sent home on Augmentin. Patient can not tolerate it and was nauseous and vomiting. COUNTS INCLUDE 234 BEDS AT THE [facility] Medical History CHF (congestive heart failure) Aortic stenosis PAD (peripheral artery disease) Heel ulcer Tobacco abuse Impacted cerumen of both ears Epidermoid cyst of skin of cheek Mass of face Allergic rhinitis Trigger finger, right middle finger Fracture of distal end of left radius with routine healing Superficial abrasion Pneumonia due to COVID-19 virus Acute hypoxemic respiratory failure due to COVID-19 Distal radius fracture, right Renal insufficiency Trigger finger, right middle finger Respiratory tract infection Preoperative clearance Iliac artery stenosis, 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 History of renal calculi Compression fracture of L1 lumbar vertebra Infective endocarditis Glaucoma Left carotid stenosis GERD (gastroesophageal reflux disease) Pulmonary nodule Cardiomyopathy Congestive heart failure Overweight (BMI 25.0-29.9) Carotid artery stenosis PVD (peripheral vascular disease) Dyslipidemia Hypertension CAD (coronary artery disease) Diabetic retinopathy associated with type 2 diabetes mellitus Diabetic polyneuropathy associated with type 2 diabetes mellitus CKD stage 3 due to type 2 diabetes mellitus Diabetic 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 diabetes mellitus intermediate (current) use of insulin Surgical History Hx of shoulder surgery Hx of coronary artery bypass graft Hx of cataract removal with insertion of prosthetic lens Hx of tonsillectomy Hx of appendectomy Hx of arthroscopy of right knee Family History Father Stomach cancer Mother Diabetes Brother Prostate abscess Social History Household Members: Spouse Housing: Apartment Do you presently have visiting nurse or other home services: Yes Alcohol intake: never Patient Tobacco Use Status: Never used Tobacco Tobacco use type: Cigarette Cigarette Packs Per Day: 0.25 Cigarettes Per Day: 3 Years Smoked: 65 e-Cigarette/Vaping Use: Never Used Second Hand Smoke Exposure: Yes Advance Directives Date on File: 06/08/21 service: No Current occupational status: 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 How often do you have a drink containing alcohol?: Never 2. How many drinks containing alcohol do you have on a typical day when you are drinking?: 1 or 2 (0) 3. How often do you have six or more drinks on one occasion?: Never Total Score: 0 THIERNO-7 AMB Questionnaire THIERNO-7 Date THIERNO - 7 assessed: 05/07/23 Source: Developed by Drs. Mendez Warren, Chelsea David, Kane Oakes and colleagues, with an educational charisse from [employer]. Physical exam (Primary Care) Vital Signs: Last Vital Signs BP 115/55 L 08/20/23 14:43 Tobacco/Smoking Status: Tobacco use Status Tobacco use date assessed 08/20/23 08/20/23 14:45 Patient Tobacco Use Status Never used Tobacco 08/20/23 14:45 Tobacco use type Cigarette 08/20/23 14:45 e-Cigarette/Vaping Use Never Used 08/20/23 14:45 Thrive Assessment: Date of Thrive Assessment Date Thrive assessed 04/11/23 08/20/23 14:45 Telehealth Telehealth Telehealth Platform: Telephone Location of provider rendering services: practice address Location of patient: address on file Patient Identification confirmed using: Name, : Yes Telehealth method: voice only [phone]) Patient verbally consented to treatment: Yes Patient verbally consented to billing insurance company: Yes Patient informed of any privacy concerns related to visit: Yes Minutes spent on Phone/Video with Pt.: 15 Assessment and Plan Assessment & Plan (1) Lingular pneumonia: Code(s): J18.9 - Pneumonia, unspecified organism Plan: Change in antibiotic given due to side effect of diarrhea. Zithromax sent in as well as Mucinex to help bring up the phlegm. Medications: New azithromycin (Zithromax) For 250 mg dose pack: take 500 mg today (day 1), then 250 mg for 4 days (days 2-5) PO 6 tabs 0RF J18.9 - Pneumonia, unspecified organism guaifenesin ER (Mucinex) 600 mg PO Q12H PRN 20 tabs 0RF congestion J18.9 - Pneumonia, unspecified organism Discontinued amoxicillin-pot clavulanate 875-125 mg Discontinued Reason: Doctor's Order 1 tab PO BID 10 days 20 tabs 0RF Coding Level of Care Code Tele Est Pt Level 3 (87989) Diagnoses Lingular pneumonia J18.9
[2023-08-20 14:43] VITALS: BP 115/55
== END 2023-08-21 15:04 | disposition home or self-care (01) ==
LOC: HO.HMGH 14:42
PROVIDERS: PCP Internal Medicine; Visit Provider Internal Medicine
DX: J18.9 Pneumonia, unspecified organism (principal)
CPT/HCPCS: G2252

== ENCOUNTER 2023-09-16 10:54 | Outpatient (AMB) | payer MEDICARE, SELFPAY ==
--- NOTE | 2023-09-16 10:55 | MHC.OFFVIS ---
Vital Signs 09/16/23 10:56 Height 5 ft 8 in Weight 184 lb BMI 28.0 Intake Visit Reasons: 3 mo arterial US 06/12/23 Intake Note: 3 mo follow up s/p Right Angio w/ non-healing ulcer 03/26/23, pt states he broke his right hip, only complaint, still has Right heel ulcer. Goes to [facility] 1 x per week Accompanied by: Self / Same As Patient Allergies No Known Allergies Allergy (Verified 09/16/23 11:05) HPI HPI 3 mo arterial US 06/12/23: Details: Very pleasant 78-year-old gentleman presents for 3 month arterial surveillance follow-up. He would undergone right SFA plasty on 03/26/2023. Reports that he is doing fairly well. His wound has gone on to heal. Only complaint at the current time is a right hip problem. Other than that he is doing fairly well. He now presents for routine surveillance arterial follow-up. [facility], LAT[facility] Medical History CHF (congestive heart failure) Aortic stenosis PAD (peripheral artery disease) Heel ulcer Tobacco abuse Impacted cerumen of both ears Epidermoid cyst of skin of cheek Mass of face Allergic rhinitis Trigger finger, right middle finger Fracture of distal end of left radius with routine healing Superficial abrasion Pneumonia due to COVID-19 virus Acute hypoxemic respiratory failure due to COVID-19 Distal radius fracture, right Renal insufficiency Trigger finger, right middle finger Respiratory tract infection Preoperative clearance Iliac artery stenosis, 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 History of renal calculi Compression fracture of L1 lumbar vertebra Infective endocarditis Glaucoma Left carotid stenosis GERD (gastroesophageal reflux disease) Pulmonary nodule Cardiomyopathy Congestive heart failure Overweight (BMI 25.0-29.9) Carotid artery stenosis PVD (peripheral vascular disease) Dyslipidemia Hypertension CAD (coronary artery disease) Diabetic retinopathy associated with type 2 diabetes mellitus Diabetic polyneuropathy associated with type 2 diabetes mellitus CKD stage 3 due to type 2 diabetes mellitus Diabetic 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 diabetes mellitus 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 (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) use of insulin Surgical History Hx of shoulder surgery Hx of coronary artery bypass graft Hx of cataract removal with insertion of prosthetic lens Hx of tonsillectomy Hx of appendectomy Hx of arthroscopy of right knee Family History Father Stomach cancer Mother Diabetes Brother Prostate abscess Social History Household Members: Spouse Housing: Apartment Do you presently have visiting nurse or other home services: Yes Alcohol intake: never Patient Tobacco Use Status: Never used Tobacco Tobacco use type: Cigarette Cigarette Packs Per Day: 0.25 Cigarettes Per Day: 3 Years Smoked: 65 e-Cigarette/Vaping Use: Never Used Second Hand Smoke Exposure: Yes Advance Directives Date on File: 06/08/21 service: No Current occupational status: 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 Cognitive needs: No Hearing needs: No Vision needs: No Review of Systems Const All systems reviewed & are unremarkable except as noted in HPI and below Reports no additional complaints ENT Reports Normal hearing present Card Denies chest pain, Denies chest pain at rest, Denies chest pain with activity and Denies pedal edema Resp Denies cough GI Denies abdominal pain Musc Denies abnormal gait, Denies muscle cramps and Denies radiating pain into limb Skin/Breast Denies skin ulcer and Denies wounds Neuro Reports Normal hearing present and Denies abnormal gait Psych Reports no additional complaints Physical Exam Vital Signs: BMI result Body Mass Index 28.0 Const General: cooperative, healthy appearing and comfortable Orientation/consciousness: oriented to person, oriented to place and oriented to time HEENT Head: Yes normal to inspection Neck Neck: Yes normal visual inspection Carotids: no bruits Chest Chest palpation & inspection: normal inspection of the chest Resp Effort & Inspection: normal respiratory effort and able to speak in complete sentences Auscultation: clear to auscultation bilaterally, no crackles, no rales, no rhonchi and no wheezes Cardio Other: Bilateral DP signals Rate: regular rate Rhythm: regular rhythm Heart sounds: S1 normal heart sound present and S2 normal heart sound present Bruits: no carotid bruits GI Inspection: Yes normal to inspection Skin Wounds: no wounds Hair: normal Neuro General: oriented to person, oriented to place and oriented to time Cranial nerves: Yes CN's II-XII intact bilaterally and Yes Normal hearing present Cognition (Neuro): normal cognition Motor exam (neuro): 5/5 motor strength present throughout Extrem Other: venous exam: No significant superficial varicosities or spider telangiectasias, minimal edema General: No clubbing, No cyanosis and No edema Psych Appearance: grossly normal Mental Status: mental status grossly normal Speech and movement: Normal speech and movement present Results Reviewed Results Reviewed: Noninvasive arterial testing dated 08/12/2023 demonstrates STAR on the right of 1.35 and on the left of 1.35 with diffuse disease. Written report and images were reviewed. Assessment & Plan Assessment & Plan (1) PVD (peripheral vascular disease): Comment: 08/12/2018- bilateral iliac stents 03/28/2021 - right SFA atherectomy and stenting 03/26/2023 - right SFA plasty Code(s): I73.9 - Peripheral vascular disease, unspecified Category: Medical Plan: In short patient has stable claudication and right lower extremity intervention appears to be stable. I did review the pathophysiology of peripheral vascular disease with the patient. In addition we did discuss routine conservative measures including a healthy diet and the importance of exercise and ambulation. We did discuss risk factor modification. The patient will continue to to follow-up with surveillance follow-up in approximately 6 months. Thank you for allowing us to participate in this patient's care. If there are any questions or concerns please do not hesitate to contact us. Orders: Orders US arterial duplex LE BI 6 Months I73.9 - Peripheral vascular disease, unspecified Coding Level of Care Code Est Pt Level 4 (42351) Diagnoses PVD (peripheral vascular disease) I73.9
[2023-09-16 10:56] VITALS: BMI 28.0
== END 2023-09-16 11:27 | disposition home or self-care (01) ==
PROVIDERS: PCP Internal Medicine; Visit Provider Surgery Vascular Surgery
DX: I73.9 Peripheral vascular disease, unspecified (principal)
CPT/HCPCS: 99213

== ENCOUNTER → 2023-09-16 10:54 | Outpatient (BNVA) | payer MEDICARE, SELFPAY | PROVIDERS: PCP Internal Medicine; Visit Provider Surgery Vascular Surgery | DX: I73.9 Peripheral vascular disease, unspecified (principal) | CPT/HCPCS: 99212 ==

== ENCOUNTER 2023-09-23 10:16 | Outpatient (AMB) | payer MEDICARE, SELFPAY ==
[2023-09-23 10:18] VITALS: BP 100/58; PULSE 56; BMI 28.2
--- NOTE | 2023-09-23 10:18 | A.OFFVIS_ITS ---
Vital Signs 09/23/23 10:18 09/23/23 10:58 09/23/23 10:59 09/23/23 10:59 Height 5 ft 8 in Weight 185 lb 3.013 oz BMI 28.2 BP 100/58 L 130/60 131/61 156/70 H Blood Pressure Location Lt brachial Lt brachial Lt brachial Lt brachial Position Sitting Supine Sitting Standing Pulse 56 64 61 100 Intake Visit Reasons: 4mth f/up Intake Note: 4mo f/u. Pt feeling well. Corrective Therapist Required: No Accompanied by: Self / Same As Patient Allergies No Known Allergies Allergy (Verified 09/16/23 11:05) Medication List - Last Reconciled 09/23/23 by Emile Bridges MD acetaminophen (Tylenol Extra Strength) 500 mg PO Q6H PRN amlodipine 10 mg PO BEDTIME ascorbic acid (vitamin C) 500 mg PO BEDTIME PRN aspirin 81 mg PO BEDTIME benzonatate 200 mg PO BID-TID PRN blood sugar diagnostic (FreeStyle Lite Strips) As directed four times a day 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 meter (FreeStyle [place] Lite kit) As directed brimonidine 0.15% 1 drp ophthalmic (eye) BID clopidogrel (Plavix) 75 mg PO DAILY collagenase clostridium histo. (Santyl) 1 appl topical DAILY [diabetic shoe lift As directed] [diabetic shoes As directed] docusate sodium 200 mg PO DAILY PRN dorzolamide-timolol 22.3-6.8 mg/mL 1 drp ophthalmic (eye) BID dulaglutide (Trulicity) 1.5 mg (0.5 mL) subcut PONCE@0900 4 weeks furosemide 40 mg See Protocol PO DAILY gabapentin 300 mg PO BEDTIME guaifenesin ER (Mucinex) 600 mg PO Q12H PRN [hospital bed As directed] [HOSPITAL BED As directed] insulin degludec 20 units (0.2 mL) subcut BEDTIME insulin lispro (Humalog KwikPen (U-100) Insulin) 6 units (0.06 mL) subcut TIDAC isosorbide mononitrate ER 30 mg See Protocol PO DAILY lancets (FreeStyle Lancets) As directed check BS QD metoprolol succinate ER 25 mg PO DAILY multivitamin 1 tab PO BEDTIME nicotine 1 patch transdermal DAILY pen needle, diabetic (BD Martina 2nd Gen Pen Needle) 5 times a day rosuvastatin 40 mg PO BEDTIME silver sulfadiazine 1% (Silvadene) 1 appl topical BID 30 days HPI Comments Details: Bibi comes for follow-up. He was seen in May and at that time had a repeat Holter monitor after that and it at shown frequent PVCs still persistent despite amiodarone therapy and this was then stopped. He has not noticed any increased palpitations. However he had fall related to what he says a syncopal episode/black out. This is unclear as to when this happened. He said he had hip replacement/repair after that. Currently walking with a cane. He said he still has balance issues. Denies any clear lightheadedness or syncopal episodes since then. Denies any orthostatic lightheadedness. No low blood pressure, says nurse comes twice a week to his home meds blood pressure is generally well controlled. He denies any heart failure symptoms. Takes Lasix every day. No leg edema, abdominal distention, orthopnea, PND. No prolonged palpitation irregular heartbeat. [facility], LAT[facility] Medical History CHF (congestive heart failure) Aortic stenosis PAD (peripheral artery disease) Heel ulcer Tobacco abuse Impacted cerumen of both ears Epidermoid cyst of skin of cheek Mass of face Allergic rhinitis Trigger finger, right middle finger Fracture of distal end of left radius with routine healing Superficial abrasion Pneumonia due to COVID-19 virus Acute hypoxemic respiratory failure due to COVID-19 Distal radius fracture, right Renal insufficiency Trigger finger, right middle finger Respiratory tract infection Preoperative clearance Iliac artery stenosis, 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 History of renal calculi Compression fracture of L1 lumbar vertebra Infective endocarditis Glaucoma Left carotid stenosis GERD (gastroesophageal reflux disease) Pulmonary nodule Cardiomyopathy Congestive heart failure Overweight (BMI 25.0-29.9) Carotid artery stenosis PVD (peripheral vascular disease) Dyslipidemia Hypertension CAD (coronary artery disease) Diabetic retinopathy associated with type 2 diabetes mellitus Diabetic polyneuropathy associated with type 2 diabetes mellitus CKD stage 3 due to type 2 diabetes mellitus Diabetic 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 diabetes mellitus residential (current) use of insulin Surgical History Hx of shoulder surgery Hx of coronary artery bypass graft Hx of cataract removal with insertion of prosthetic lens Hx of tonsillectomy Hx of appendectomy Hx of arthroscopy of right knee Family History Father Stomach cancer Mother Diabetes Brother Prostate abscess Social History Household Members: Spouse Housing: Apartment Do you presently have visiting nurse or other home services: Yes Alcohol intake: never Patient Tobacco Use Status: Never used Tobacco Tobacco use type: Cigarette Cigarette Packs Per Day: 0.25 Cigarettes Per Day: 3 Years Smoked: 65 e-Cigarette/Vaping Use: Never Used Second Hand Smoke Exposure: Yes Advance Directives Date on File: 06/08/21 service: No Current occupational status: 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 Cognitive needs: No Hearing needs: No Vision needs: No Review of Systems Const Denies chills, Denies fatigue, Denies fever(s), Denies weight gain and Denies weight loss Card Denies chest pain, Denies leg edema, Denies lightheadedness, Denies palpitations, Denies dyspnea on exertion and Denies orthopnea Resp Denies cough and Denies dyspnea on exertion GI Reports melena, Denies hematochezia and Denies change in stool character Musc Denies muscle weakness and Denies radiating pain into limb Endo Denies fatigue and Denies palpitations Physical Exam Vital Signs: Last Vital Signs Pulse 100 09/23/23 10:59 BP 156/70 H 09/23/23 10:59 BMI result Body Mass Index 28.2 Const General: cooperative, comfortable, no acute distress, alert, awake and other (Disheveled) Nutritional Appearance: obese Orientation/consciousness: patient oriented x3 Limitations: no limitations Neck Neck: Yes trachea midline, Yes supple and Yes no JVD Resp Effort & Inspection: normal respiratory effort Auscultation: clear to auscultation bilaterally and diminished lung sounds Cardio Jugular venous distension: no JVD Palpation: normal PMI Rate: regular rate Rhythm: abnormal rhythm with ectopic beats Heart sounds: S1 normal heart sound present, S2 normal heart sound present (soft), no click, no gallops, Murmur heart sound present systolic late, blowing and decrescendo and Other heart sounds present (Soft to absent S2) Peripheral pulses: other (Reduced distal pulses) GI Auscultation: normal bowel sounds Skin General skin exam: no rashes or lesions noted and ecchymosis Neuro General: patient oriented x3 and no focal motor deficits Extrem General: Yes no clubbing, cyanosis or edema Office Procedures EKG Details: EKG shows normal sinus rhythm with frequent PVCs, unifocal with fixed into coupling with inferior Q-waves and lateral ST T wave changes most likely suggestive of repolarization abnormality [id number], Complete Assessment & Plan Assessment & Plan (1) Aortic stenosis: Comment: April 2021, December 2021 1.3 cm November 2022 1.64 Code(s): I35.0 - Nonrheumatic aortic (valve) stenosis Category: Medical Plan: Aortic stenosis which appears to be moderately severe clinically. Follow-up echocardiogram in 3 months time. Cardinal symptoms associated with aortic stenosis were discussed. He shows understanding. Advised to call me with any new symptoms. His syncopal episode is unclear as to when it happened will need to review his chart. There are no records from [facility] or [facility] regarding this in the last 6 months. Will have to check with [facility]. Continue aggressive risk factor modification as below. (2) CHF (congestive heart failure): Comment: Diastolic Code(s): I50.9 - Heart failure, unspecified Category: Medical Qualifiers: Heart failure chronicity: acute on chronic Heart failure type: unspecified Qualified Code(s): I50.9 - Heart failure, unspecified Plan: Diastolic heart failure, clinically euvolemic and well compensated. Importance good blood pressure control was discussed. Continue current diuretic therapy. Daily weight monitoring avoidance of salt loading was discussed. Additional diuretics as need be. Goals of therapy were discussed and he understands and agrees. (3) CAD (coronary artery disease): Code(s): I25.10 - Atherosclerotic heart disease of [place] coronary artery without angina pectoris Category: Medical Qualifiers: Coronary Disease-Associated Artery/Lesion type: [place] artery [place] vs. transplanted heart: [place] heart Associated angina: without angina Qualified Code(s): I25.10 - Atherosclerotic heart disease of [place] coronary artery without angina pectoris Plan: CAD with remote coronary artery bypass grafting. Continue aggressive medical therapy. Also has diffuse vascular disease and currently on dual antiplatelet therapy. Blood pressure is currently optimized. There is no evidence of orthostatic hypotension. Unclear as to why he syncopized. Continue to monitor blood pressure at home maintain a log. Goal blood pressure less than 130/84. Continue aggressive diabetes management. Goal hemoglobin A1c less than 7%. Continue high-intensity statin therapy with target goal LDL closer to 60 mg/dL. Advised to call me with any anginal symptoms. (4) Frequent PVCs: Code(s): I49.3 - Ventricular premature depolarization Category: Medical Plan: Frequent PVCs which are present despite amiodarone therapy. Would avoid any antiarrhythmic drug therapy at this point time. Continue metoprolol therapy. Avoidance of stimulants was discussed. There is no evidence of ventricular arrhythmias. Echo LVEF is preserved. Follow up in the clinic in 3 months time after an echocardiogram. Thank you for allowing me to partake in his care Coding Level of Care Code Est Pt Level 4 (80561) Diagnoses Aortic stenosis I35.0 CHF (congestive heart failure) I50.9 Heart failure chronicity: acute on chronic Heart failure type: unspecified Coronary artery disease involving [place] coronary artery of [place] heart without angina pectoris I25.10 Coronary Disease-Associated Artery/Lesion type: [place] artery [place] vs. transplanted heart: [place] heart Associated angina: without angina Frequent PVCs I49.3 CPT Codes EKG - CPT: 60527-[id number], Complete ([id number])
[2023-09-23 10:58] VITALS: BP 130/60; PULSE 64
[2023-09-23 10:59] VITALS: BP 131/61; BP 156/70; PULSE 100; PULSE 61
== END 2023-09-23 11:16 | disposition home or self-care (01) ==
PROVIDERS: PCP Internal Medicine; Visit Provider Internal Medicine Cardiovascular Disease
DX: I35.0 Nonrheumatic aortic (valve) stenosis (principal); I50.9 Heart failure, unspecified; I25.10 Atherosclerotic heart disease of native coronary artery without angina pectoris; I49.3 Ventricular premature depolarization
CPT/HCPCS: 93010; 99214

== ENCOUNTER → 2023-09-23 10:16 | Outpatient (BNVA) | payer MEDICARE, SELFPAY | PROVIDERS: PCP Internal Medicine; Visit Provider Internal Medicine Cardiovascular Disease | DX: I49.3 Ventricular premature depolarization (principal); I35.0 Nonrheumatic aortic (valve) stenosis; I11.0 Hypertensive heart disease with heart failure; I50.33 Acute on chronic diastolic (congestive) heart failure; I25.10 Atherosclerotic heart disease of native coronary artery without angina pectoris; Z95.1 Presence of aortocoronary bypass graft | CPT/HCPCS: 93005; 99212 ==

== ENCOUNTER 2023-10-02 04:19 | Emergency (ER) | payer MEDICARE, SELFPAY ==
[2023-10-02 04:22] VITALS: BP 142/58; BP 166/63; PULSE 67; PULSE 72; RESP 18; TEMP 36.5; O2SAT 92; O2SAT 96; BMI 31.2
[2023-10-02 04:30] LABS: Glucose, Whole Blood 79 mg/dL (60-115)
--- NOTE | 2023-10-02 04:39 | PC.NURSE ---
POC 69 on arrival, pt given juice and sandwich, A/Ox4
[2023-10-02 04:55] LABS: Basophils Absolute Auto 0.1 X10*3/uL (0.0-0.2); Basophils Percent Auto 0.7 % (0-2); Eosinophils Absolute Auto 0.3 X10*3/uL (0.0-0.4); Eosinophils Percent Auto 3.3 % (0-4); Hematocrit 35.4 % (42.0-52.0); Hemoglobin 12.3 g/dl (14.0-18.0); Imm Gran Abs Auto 0.02 X10*3/uL (0.00-0.03); Imm Gran Pct Auto 0.2 % (0.0-0.4); Lymphocytes Absolute Auto 1.8 X10*3/uL (1.2-4.9); Lymphocytes Percent Auto 18.6 % (20-40); MANUAL DIFF FLAG NO; Mean Corpuscular HGB Conc 34.7 g/dl (31.0-36.0); Mean Corpuscular Hemoglobin 31.9 pg (27.0-33.0); Mean Corpuscular Volume 91.9 fL (80.0-98.0); Mean Platelet Volume 9.8 fL (9.4-12.4); Monocytes Absolute Auto 0.8 X10*3/uL (0.1-1.2); Monocytes Percent Auto 7.7 % (2-11); Neutrophils Absolute Auto 6.9 x10*3/uL (2.0-8.3); Neutrophils Percent Auto 69.5 % (45-73); Platelet Count 169 X10*3/uL (160-400); Red Blood Count 3.85 X10*6/uL (4.60-5.80); Red Cell Distribution Width 14.3 % (11.0-16.0); White Blood Count 9.9 X10*3/uL (4.8-10.8)
[2023-10-02 05:08] LABS: Glucose, Whole Blood 143 mg/dL (60-115)
[2023-10-02 05:13] LABS: Alanine Aminotransferase 36 U/L (0-40); Albumin Level 4.1 g/dL (3.5-5.0); Alkaline Phosphatase 102 U/L (39-117); Anion Gap 15 (12-20); Aspartate Amino Transferase 32 U/L (5-37); Bilirubin Total 0.4 mg/dL (0.0-1.0); Blood Urea Nitrogen 29 mg/dL (9-16); Calcium 9.3 mg/dL (8.4-10.2); Carbon Dioxide 26 mmol/L (22-29); Chloride 104 mmol/L (96-108); Creatinine Clr Calc Pharmacy 39.8; Estimated Glomerular Filt Rate 43; Glucose Random 130 mg/dL (60-115); Potassium 3.8 mmol/L (3.3-5.1); Sodium 141 mmol/L (135-145); Total Protein 7.7 g/dL (6.5-8.0)
[2023-10-02 05:56] VITALS: BP 155/60; PULSE 65; RESP 17; O2SAT 93
[2023-10-02 06:08] LABS: Glucose, Whole Blood 140 mg/dL (60-115)
--- NOTE | 2023-10-02 06:41 | ED.GENADULT ---
HPI - General Adult General Chief complaint: Recheck/Abnormal Lab/Rx Stated complaint: hypoglycemia Time Seen by Provider: 10/02/23 06:33 Source: patient, EMS and circuit tester (all interactions with this patient were facilitated via an [facility] member of congress) Mode of arrival: EMS Limitations: language barrier (all interactions with this patient were facilitated via an [facility] member of congress) History of Present Illness ED Provider: Tania Crisostomo PA-C HPI narrative: Patient is a 78 year old assigned male at with a history of DM, CKD, CHF, CAD, GERD, tobacco use, and NSTEMI presenting to the emergency department today with low blood sugar. Patient states that his was concerned because he wasn't acting right and EMS found that his blood sugar was low. Patient states that he is on medication for his diabetes and has had issues with his sugar dropping too low before. Patient denies any current dizziness, lightheadedness, abdominal pain, nausea, vomiting, fever, chills, blurry vision, double vision, loss of vision, chest pain, difficulty breathing, shortness of breath, back pain, night sweats, pain with urination, increased urinary frequency, increased urinary urgency, blood in his urine or stool, syncope or a near syncopal episode, recent trauma or falls, bowel incontinence, bladder incontinence, or any other complaints at this time. Relieving factors: none Exacerbating factors: none Associated symptoms: denies other symptoms Treatments prior to arrival: other (EMS gave oral glucose ) Related Data Home Medications ?Medication ?Instructions ?Recorded ?Confirmed dorzolamide 22.3 mg-timolol 6.8 1 drp ophthalmic (eye) BID 06/07/21 09/23/23 mg/mL eye drops multivitamin 1 tab PO BEDTIME 06/07/21 09/23/23 aspirin 81 mg tablet,delayed 81 mg PO BEDTIME 12/09/22 09/23/23 release brimonidine 0.15 % eye drops 1 drp ophthalmic (eye) BID 12/09/22 09/23/23 collagenase clostridium histo. 250 1 appl topical DAILY 03/03/23 09/23/23 unit/gram topical ointment (Santyl) ascorbic acid (vitamin C) 500 mg 500 mg PO BEDTIME PRN 08/05/23 09/23/23 tablet docusate sodium 100 mg capsule 200 mg PO DAILY PRN 08/05/23 09/23/23 Previous Rx's ?Medication ?Instructions ?Recorded acetaminophen 500 mg tablet 500 mg PO Q6H PRN pain or fever 01/30/21 (Tylenol Extra Strength) #20 tabs blood sugar diagnostic (FreeStyle #150 ea 08/05/22 Lite Strips) 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 meter (FreeStyle #1 ea 08/05/22 [place]ster Lite kit) lancets 28 gauge (FreeStyle #100 ea 08/05/22 Lancets) gabapentin 300 mg capsule 300 mg PO BEDTIME #90 caps 11/21/22 hospital bed #1 ea 01/02/23 HOSPITAL BED #1 ea 01/07/23 diabetic shoe lift #1 ea 03/14/23 diabetic shoes #2 ea 03/14/23 clopidogrel 75 mg tablet (Plavix) 75 mg PO DAILY #30 tabs 04/22/23 furosemide 40 mg tablet 40 mg PO DAILY #30 tabs 04/22/23 isosorbide mononitrate 30 mg 30 mg PO DAILY #30 tabs 04/22/23 tablet,extended release 24 hr dulaglutide 1.5 mg/0.5 mL 1.5 mg (0.5 mL) subcut COOPER@0900 4 05/07/23 subcutaneous pen injector weeks #2 mL (Trulicity) pen needle, diabetic 32 gauge x #400 ea 05/07/23 (BD Martina 2nd Gen Pen Needle) silver sulfadiazine 1 % topical 1 appl topical BID 30 days #400 05/07/23 cream (Silvadene) grams insulin degludec 100 unit/mL (3 20 unit (0.2 mL) subcut BEDTIME 05/27/23 mL) subcutaneous pen #15 mL insulin lispro 100 unit/mL 6 unit (0.06 mL) subcut TIDAC #15 05/27/23 subcutaneous pen (Humalog KwikPen mL (U-100) Insulin) benzonatate 200 mg capsule 200 mg PO BID-TID PRN cough #20 05/28/23 caps metoprolol succinate 25 mg 25 mg PO DAILY #90 tabs 06/13/23 tablet,extended release 24 hr nicotine 14 mg/24 hr daily 1 patch transdermal DAILY #28 ea 06/27/23 transdermal patch amlodipine 10 mg tablet 10 mg PO BEDTIME #90 tabs 08/19/23 rosuvastatin 40 mg tablet 40 mg PO BEDTIME #90 tabs 08/19/23 guaifenesin 600 mg tablet, 600 mg PO Q12H PRN congestion #20 08/20/23 extended release 12 hr (Mucinex) tabs Allergies Allergy/AdvReac Type Severity Reaction Status Date / Time No Known Allergies Allergy Verified 10/02/23 04:24 Review of Systems Constitutional: Constitutional: Reports no additional constitutional complaints, Denies chills, Denies fever(s) and Denies night sweats Eyes: Eyes: Reports no additional eye complaints, Denies blurry vision, Denies change in vision, Denies diplopia, Denies eye discharge, Denies loss of vision and Denies eye pain ENT: Denies dizziness Cardiovascular: Cardiovascular: Reports no additional cardiovascular complaints, Denies chest pain, Denies lightheadedness, Denies Loss of Consciousness and Denies dyspnea Respiratory: Respiratory: Reports no additional respiratory complaints and Denies dyspnea Gastrointestinal: Gastrointestinal: Reports no additional gastrointestinal complaints, Denies abdominal pain, Denies melena, Denies hematochezia, Denies change in bowel habits and Denies change in stool character Genitourinary: Genitourinary: Reports no additional male genitourinary complaints, Denies hematuria, Denies oliguria, Denies difficulty urinating, Denies dysuria, Denies urinary frequency, Denies urinary hesitancy, Denies urinary incontinence and Denies urinary urgency Musculoskeletal: Musculoskeletal: Reports no additional musculoskeletal complaints, Denies numbness and Denies tingling Neurologic: Denies dizziness, Denies loss of vision, Denies numbness and Denies tingling Psychiatric: Psychiatric: Reports no additional psychiatric complaints Endocrine: Endocrine: Reports no additional endocrine complaints Hematologic/Lymphatic: Hematologic/Lymphatic: Reports no additional hematologic/lymphatic complaints Allergic/Immunologic: Allergic/Immunologic: Reports no additional allergic/immunologic complaints PMFSH Past Medical History Attestation statement: The following information was validated with the patient. Source: old records reviewed and nursing notes reviewed Medical History CHF (congestive heart failure) Aortic stenosis PAD (peripheral artery disease) Heel ulcer Tobacco abuse Impacted cerumen of both ears Epidermoid cyst of skin of cheek Mass of face Allergic rhinitis Trigger finger, right middle finger Fracture of distal end of left radius with routine healing Superficial abrasion Pneumonia due to COVID-19 virus Acute hypoxemic respiratory failure due to COVID-19 Distal radius fracture, right Renal insufficiency Trigger finger, right middle finger Respiratory tract infection Preoperative clearance Iliac artery stenosis, 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 History of renal calculi Compression fracture of L1 lumbar vertebra Infective endocarditis Glaucoma Left carotid stenosis GERD (gastroesophageal reflux disease) Pulmonary nodule Cardiomyopathy Congestive heart failure Overweight (BMI 25.0-29.9) Carotid artery stenosis PVD (peripheral vascular disease) Dyslipidemia Hypertension CAD (coronary artery disease) Diabetic retinopathy associated with type 2 diabetes mellitus Diabetic polyneuropathy associated with type 2 diabetes mellitus CKD stage 3 due to type 2 diabetes mellitus Diabetic 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 diabetes mellitus longterm (current) use of insulin Surgical History Hx of shoulder surgery Hx of coronary artery bypass graft Hx of cataract removal with insertion of prosthetic lens Hx of tonsillectomy Hx of appendectomy Hx of arthroscopy of right knee Family History Family History Father Stomach cancer Mother Diabetes Brother Prostate abscess Social History Social History Household Members: Spouse Housing: Apartment Do you presently have visiting nurse or other home services: Yes Alcohol intake: never Patient Tobacco Use Status: Never used Tobacco Tobacco use type: Cigarette Cigarette Packs Per Day: 0.25 Cigarettes Per Day: 3 Years Smoked: 65 Smoked in Last 30 Days: Yes e-Cigarette/Vaping Use: Never Used Second Hand Smoke Exposure: Yes Use of substances other than those prescribed or required for medical reasons: No Advance Directives: Yes Advance Directives on File: Yes Advance Directives Date on File: 06/08/21 service: No Current occupational status: 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 Cognitive needs: No Hearing needs: No Vision needs: No Physical Exam ED Vital Signs: Vital Signs - 24 hr 10/02/23 04:22 10/02/23 05:56 10/02/23 07:32 Temperature 97.7 F 97.7 F Pulse Rate 67 65 65 Respiratory Rate 18 17 17 Blood Pressure 166/63 H 155/60 H 155/60 H Pulse Oximetry 96 93 93 Oxygen Delivery Method Room Air Room Air Room Air BMI result Body Mass Index 31.2 Const General: cooperative, no acute distress, alert and awake Nutritional Appearance: well nourished Orientation/consciousness: patient oriented x3 Limitations: no limitations HENMT Head: Yes normal to inspection and Yes atraumatic Ears: hearing grossly normal bilaterally and external ears normal General nose exam: Normal external nose present, no nasal discharge noted and no epistaxis Face and sinus: Yes normal facial exam, No abrasion and No laceration Mouth: Normal oral and palatal mucosa present, no drooling and no muffled voice Eyes General: appearance normal, both eyes and all related structures Periorbital: periorbital findings normal Eyelids: Yes eyelids normal Conjunctivae: conjunctivae normal Pupils: Equal, round and reactive pupils present EOM: EOMs intact bilaterally Neck Neck: Yes normal visual inspection, Yes full ROM and Yes no lymphadenopathy Chest Chest palpation & inspection: normal inspection of the chest Resp Effort & Inspection: normal respiratory effort and able to speak in complete sentences GI Inspection: Yes normal to inspection Neuro General: patient oriented x3 and moves all extremities Cranial nerves: Yes Equal, round and reactive pupils present Cognition (Neuro): normal cognition Extrem General: Yes normal to inspection, Yes full ROM and Yes capillary refill normal Psych Appearance: grossly normal Mental Status: mental status grossly normal Affect: normal affect Attitude: cooperative Thought process: Normal thought process present Thought content: Normal thought content present Insight: Good insight present (Psych) Medical Decision Making Medical Decision Making MDM Narrative: Patient is a 78 year old assigned male at with a history of DM, CKD, CHF, CAD, GERD, tobacco use, and NSTEMI presenting to the emergency department today after an episode of hypoglycemia. Patient's physical exam was unremarkable. Patient's blood work was unremarkable and showed an apporpiate blood sugar during his time in the department. I explained my physical exam findings as well as all test results to the patient. I answered all questions asked by the patient. I stressed the importance of the patient taking his medication as directed (either prescribed or as the over the counter packaging recommends). I stressed the importance of the patient following up with his primary care provider. I stressed the importance of the patient returning to the emergency department immediately if his symptoms were to worsen or if he were to develop any dizziness, shortness of breath, difficulty breathing, chest pain, blurry vision, loss of vision, nausea, vomiting, abdominal pain, fever, chills, back pain, or any other complaints. Patient verbalized agreement and understanding with this treatment plan and discharge. Differential Diagnosis Differential Diagnoses: The differential diagnosis associated with the presentation includes Hypoglycemia Admission/Observation Consideration of admission/observation: Escalation of care including admission/observation considered Patient would have been admitted to the hospital had his work up had any findings where hospital admission was appropriate and his clinical presentation warranted hospital admission. Lab Data [facility] Lab Attestation statement: I reviewed the patient's lab results. My interpretation of these results are in the [facility] Rationale portion of this note. 10/02/23 04:50 10/02/23 04:50 Labs: Lab Results 10/02/23 10/02/23 10/02/23 Range/Units 04:26 04:50 05:04 WBC 9.9 (4.8-10.8) X10*3/uL RBC 3.85 L (4.60-5.80) X10*6/uL Hgb 12.3 L (14.0-18.0) g/dl Hct 35.4 L (42.0-52.0) % MCV 91.9 (80.0-98.0) fL MCH 31.9 (27.0-33.0) pg MCHC 34.7 (31.0-36.0) g/dl RDW 14.3 (11.0-16.0) % Plt Count 169 (160-400) X10*3/uL MPV 9.8 (9.4-12.4) fL Immature Gran % (Auto) 0.2 (0.0-0.4) % Neut % (Auto) 69.5 (45-73) % Lymph % (Auto) 18.6 L (20-40) % Stephenson % (Auto) 7.7 (2-11) % Eos % (Auto) 3.3 (0-4) % Baso % (Auto) 0.7 (0-2) % Lymph # (Auto) 1.8 (1.2-4.9) X10*3/uL Stephenson # (Auto) 0.8 (0.1-1.2) X10*3/uL Eos # (Auto) 0.3 (0.0-0.4) X10*3/uL Baso # (Auto) 0.1 (0.0-0.2) X10*3/uL Abs Immat Gran (auto) 0.02 (0.00-0.03) X10*3/uL Absolute Neuts (auto) 6.9 (2.0-8.3) x10*3/uL Absolute Nucleated RBC 0.000 (0.0-0.012) X10*3/uL Nucleated RBC % (auto) 0.0 (0.0-0.2) /100WBC Sodium 141 (135-145) mmol/L Potassium 3.8 (3.3-5.1) mmol/L Chloride 104 (96-108) mmol/L Carbon Dioxide 26 (22-29) mmol/L Anion Gap 15 (12-20) BUN 29 H (9-16) mg/dL Creatinine 1.56 H (0.5-1.4) mg/dL Estim Creat Clear Calc 39.8 Estimated GFR 43 POC Glucose 79 143 H (60-115) mg/dL Random Glucose 130 H (60-115) mg/dL Calcium 9.3 (8.4-10.2) mg/dL Total Bilirubin 0.4 (0.0-1.0) mg/dL AST 32 (5-37) U/L ALT 36 (0-40) U/L Alkaline Phosphatase 102 (39-117) U/L Total Protein 7.7 (6.5-8.0) g/dL Albumin 4.1 (3.5-5.0) g/dL 10/02/23 Range/Units 06:04 WBC (4.8-10.8) X10*3/uL RBC (4.60-5.80) X10*6/uL Hgb (14.0-18.0) g/dl Hct (42.0-52.0) % MCV (80.0-98.0) fL MCH (27.0-33.0) pg MCHC (31.0-36.0) g/dl RDW (11.0-16.0) % Plt Count (160-400) X10*3/uL MPV (9.4-12.4) fL Immature Gran % (Auto) (0.0-0.4) % Neut % (Auto) (45-73) % Lymph % (Auto) (20-40) % Stephenson % (Auto) (2-11) % Eos % (Auto) (0-4) % Baso % (Auto) (0-2) % Lymph # (Auto) (1.2-4.9) X10*3/uL Stephenson # (Auto) (0.1-1.2) X10*3/uL Eos # (Auto) (0.0-0.4) X10*3/uL Baso # (Auto) (0.0-0.2) X10*3/uL Abs Immat Gran (auto) (0.00-0.03) X10*3/uL Absolute Neuts (auto) (2.0-8.3) x10*3/uL Absolute Nucleated RBC (0.0-0.012) X10*3/uL Nucleated RBC % (auto) (0.0-0.2) /100WBC Sodium (135-145) mmol/L Potassium (3.3-5.1) mmol/L Chloride (96-108) mmol/L Carbon Dioxide (22-29) mmol/L Anion Gap (12-20) BUN (9-16) mg/dL Creatinine (0.5-1.4) mg/dL Estim Creat Clear Calc Estimated GFR POC Glucose 140 H (60-115) mg/dL Random Glucose (60-115) mg/dL Calcium (8.4-10.2) mg/dL Total Bilirubin (0.0-1.0) mg/dL AST (5-37) U/L ALT (0-40) U/L Alkaline Phosphatase (39-117) U/L Total Protein (6.5-8.0) g/dL Albumin (3.5-5.0) g/dL Independent Historian Clinical information obtained from an independent historian. History obtained from or confirmed by: EMS (EMS provided additional history and confirmed the history provided by the patient) Chronic Conditions Patient?s care impacted by: Diabetes Discharge Plan Discharge Clinical Impression: Hypoglycemia Patient Disposition: Home, Self-Care Instructions: What to Do if Your Blood Sugar is Low (ED) Additional Instructions: Follow up with your primary care provider. Return to the emergency department immediately if your symptoms worsen or if you develop any dizziness, shortness of breath, difficulty breathing, chest pain, blurry vision, loss of vision, nausea, vomiting, abdominal pain, fever, chills, back pain, or any other complaints. Queenie?seguimiento?con cooper m?dico de atenci?n primaria. Acuda inmediatamente al servicio de urgencias si boyd s?ntomas empeoran o si presenta falta de aliento, dificultad para respirar, dolor tor?cico, mareos, aturdimiento, dolor de espalda, dolor abdominal, fiebre, escalofr?os o cualquier otro s?ntoma. Prescriptions: No Action (DME) hospital bed See Rx Instructions .Route .MEDSUPPLY Qty: 1 0RF Rx Instructions: As directed (DME) HOSPITAL BED See Rx Instructions .Route .MEDSUPPLY Qty: 1 0RF Rx Instructions: As directed (DME) diabetic shoe lift 1 inch See Rx Instructions .Route .MEDSUPPLY Qty: 1 0RF Rx Instructions: As directed (DME) diabetic shoes See Rx Instructions .Route .MEDSUPPLY Qty: 2 0RF Rx Instructions: As directed isosorbide mononitrate 30 mg tablet extended release 24 hr 30 mg PO DAILY Qty: 30 5RF Protocol: Hold for SBP< HOLD for SBP < : 90 clopidogrel [Plavix] 75 mg tablet 75 mg PO DAILY Qty: 30 5RF furosemide 40 mg tablet 40 mg PO DAILY Qty: 30 5RF Protocol: Hold for SBP< HOLD for SBP < : 90 benzonatate 200 mg capsule 200 mg PO BID-TID PRN (Reason: cough) Qty: 20 0RF nicotine 14 mg/24 hr patch 24 hour 1 patch transdermal DAILY Qty: 28 0RF amlodipine 10 mg tablet 10 mg PO BEDTIME Qty: 90 0RF rosuvastatin 40 mg tablet 40 mg PO BEDTIME Qty: 90 0RF acetaminophen [Tylenol Extra Strength] 500 mg tablet 500 mg PO Q6H PRN (Reason: pain or fever) Qty: 20 0RF dorzolamide-timolol 22.3-6.8 mg/mL drops 1 drp ophthalmic (eye) BID multivitamin Tablet 1 tab PO BEDTIME ascorbic acid (vitamin C) 500 mg tablet 500 mg PO BEDTIME PRN brimonidine 0.15 % drops 1 drp ophthalmic (eye) BID aspirin 81 mg tablet,delayed release (DR/EC) 81 mg PO BEDTIME Santyl 250 unit/gram ointment 1 appl topical DAILY (DME) FreeStyle Lite Strips Strip See Rx Instructions .ROUTE .MEDSUPPLY Qty: 150 11RF Rx Instructions: As directed four times a day (DME) 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 meter [FreeStyle [place]ster Lite] Kit See Rx Instructions .ROUTE .MEDSUPPLY Qty: 1 0RF Rx Instructions: As directed (DME) lancets [FreeStyle Lancets] 28 gauge misc See Rx Instructions .ROUTE .MEDSUPPLY Qty: 100 3RF Rx Instructions: As directed check BS QD gabapentin 300 mg capsule 300 mg PO BEDTIME Qty: 90 2RF insulin degludec 100 unit/mL (3 mL) insulin pen 20 unit subcut BEDTIME Qty: 15 3RF insulin lispro [Humalog KwikPen Insulin] 100 unit/mL insulin pen 6 unit subcut TIDAC Qty: 15 3RF Rx Instructions: before meals as directed guaifenesin [Mucinex] 600 mg tablet extended release 12hr 600 mg PO Q12H PRN (Reason: congestion) Qty: 20 0RF silver sulfadiazine [Silvadene] 1 % cream 1 appl topical BID 30 Days Qty: 400 0RF Rx Instructions: apply a 1.5 mm thickness around ulcer Trulicity 1.5 mg/0.5 mL pen injector 1.5 mg subcut COOPER@0900 28 Days Qty: 2 3RF (DME) pen needle, diabetic [BD Martina 2nd Gen Pen Needle] 32 gauge x 5/32 needle See Rx Instructions .MEDSUPPLY Qty: 400 4RF Rx Instructions: 5 times a day metoprolol succinate 25 mg tablet extended release 24 hr 25 mg PO DAILY Qty: 90 1RF docusate sodium 100 mg capsule 200 mg PO DAILY PRN Referrals: [facility] [place] [facility] [place] Group] (Call to establish and follow up with a primary care provider. If you already have a primary care provider, please follow up with them.) [facility] [place] [facility] [place]Provider Group] [facility] [place] [facility] [Provider Group] Interventions: ED Discharge Assessment Last Done: 10/02/23 07:32 Discharge Date/Time: 10/02/23 07:32 Print Language: Turkmen
[2023-10-02 07:32] VITALS: BP 155/60; PULSE 65; RESP 17; TEMP 36.5; O2SAT 93
== END 2023-10-02 07:32 | disposition home or self-care (01) ==
PROVIDERS: Emergency Provider Emergency Medicine
DX: E11.649 Type 2 diabetes mellitus with hypoglycemia without coma (principal); Z79.02 Long term (current) use of antithrombotics/antiplatelets; Z79.82 Long term (current) use of aspirin; Z79.899 Other long term (current) drug therapy; Z79.4 Long term (current) use of insulin; Z79.85 Long-term (current) use of injectable non-insulin antidiabetic drugs
CPT/HCPCS: 36415; 80053; 82947; 85025; 99283; 99284

== ENCOUNTER 2023-11-14 10:24 | Outpatient (REF) | payer MEDICARE, SELFPAY ==
[2023-11-14 10:46] LABS: MANUAL DIFF FLAG NO
[2023-11-14 11:29] LABS: Basophils Absolute Auto 0.1 X10*3/uL (0.0-0.2); Basophils Percent Auto 0.9 % (0-2); Eosinophils Absolute Auto 0.4 X10*3/uL (0.0-0.4); Hematocrit 35.3 % (42.0-52.0); Imm Gran Abs Auto 0.02 X10*3/uL (0.00-0.03); Imm Gran Pct Auto 0.2 % (0.0-0.4); Lymphocytes Absolute Auto 2.5 X10*3/uL (1.2-4.9); Lymphocytes Percent Auto 27.5 % (20-40); Mean Corpuscular Hemoglobin 31.9 pg (27.0-33.0); Mean Corpuscular Volume 93.9 fL (80.0-98.0); Mean Platelet Volume 10.6 fL (9.4-12.4); Monocytes Absolute Auto 0.8 X10*3/uL (0.1-1.2); Monocytes Percent Auto 9.1 % (2-11); Neutrophils Absolute Auto 5.4 x10*3/uL (2.0-8.3); Neutrophils Percent Auto 58.3 % (45-73); Platelet Count 175 X10*3/uL (160-400); Red Blood Count 3.76 X10*6/uL (4.60-5.80); Red Cell Distribution Width 13.8 % (11.0-16.0); White Blood Count 9.2 X10*3/uL (4.8-10.8)
[2023-11-14 12:11] LABS: Alanine Aminotransferase 32 U/L (0-40); Alkaline Phosphatase 98 U/L (39-117); Anion Gap 14 (12-20); Aspartate Amino Transferase 18 U/L (5-37); Bilirubin Total 0.5 mg/dL (0.0-1.0); Blood Urea Nitrogen 29 mg/dL (9-16); Calcium 9.6 mg/dL (8.4-10.2); Carbon Dioxide 25 mmol/L (22-29); Chloride 110 mmol/L (96-108); Estimated Glomerular Filt Rate 44; Glucose Random 202 mg/dL (60-115); Potassium 5.2 mmol/L (3.3-5.1); Sodium 144 mmol/L (135-145); Total Protein 7.4 g/dL (6.5-8.0)
== END 2023-11-14 10:25 | disposition home or self-care (01) ==
LOC: HO.LAB 10:24
PROVIDERS: PCP Internal Medicine; Visit Provider Internal Medicine Hypertension Specialist
DX: N18.30 Chronic kidney disease, stage 3 unspecified (principal); N18.9 Chronic kidney disease, unspecified
CPT/HCPCS: 36415; 80053; 85025

== ENCOUNTER 2023-11-17 09:55 | Outpatient (AMB) | payer MEDICARE, SELFPAY ==
[2023-11-17 09:58] VITALS: BP 122/50; PULSE 69; O2SAT 96; BMI 30.5
--- NOTE | 2023-11-17 09:58 | HO.NEPHOV_ITS ---
Vital Signs 11/17/23 09:58 Height 5 ft 6 in Weight 189 lb BMI 30.5 BP 122/50 L Blood Pressure Location Lt brachial Position Sitting Pulse 69 Pulse Source Pulse Oximeter Pulse Oximetry (%) 96 Oxygen Delivery Method Room Air Intake Visit Reasons: Ckd / 3 MO FU/ Conf Intake Note: Patient declined [facility] [place] sales planning coordinator, signed refusal form and scanned into patient chart. Snuff Grinder Required: No Accompanied by: Spouse Allergies No Known Allergies Allergy (Verified 11/17/23 10:01) Medication List - Last Reconciled 11/17/23 by Channing Trevino MD acetaminophen (Tylenol Extra Strength) 500 mg PO Q6H PRN amlodipine 10 mg PO BEDTIME ascorbic acid (vitamin C) 500 mg PO BEDTIME PRN aspirin 81 mg PO BEDTIME benzonatate 200 mg PO BID-TID PRN blood sugar diagnostic (FreeStyle Lite Strips) As directed four times a day 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 meter (FreeStyle [place] Lite kit) As directed 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 meter,continuous (Dexcom G6 Career Resource Specialist) As directed 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 sensor (Dexcom G6 Sensor device) As directed 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 transmitter (Dexcom G6 Transmitter device) As directed brimonidine 0.15% 1 drp ophthalmic (eye) BID clopidogrel (Plavix) 75 mg PO DAILY collagenase clostridium histo. (Santyl) 1 appl topical DAILY [diabetic shoe lift As directed] [diabetic shoes As directed] docusate sodium 200 mg PO DAILY PRN dorzolamide-timolol 22.3-6.8 mg/mL 1 drp ophthalmic (eye) BID dulaglutide (Trulicity) 1.5 mg (0.5 mL) subcut PONCE@0900 4 weeks furosemide 40 mg See Protocol PO DAILY gabapentin 300 mg PO BEDTIME guaifenesin ER (Mucinex) 600 mg PO Q12H PRN [hospital bed As directed] [HOSPITAL BED As directed] insulin degludec 20 units (0.2 mL) subcut BEDTIME insulin lispro (Humalog KwikPen (U-100) Insulin) 6 units (0.06 mL) subcut TIDAC isosorbide mononitrate ER 30 mg See Protocol PO DAILY lancets (FreeStyle Lancets) As directed check BS QD metoprolol succinate ER 25 mg PO DAILY multivitamin 1 tab PO BEDTIME nicotine 1 patch transdermal DAILY pen needle, diabetic (BD Martina 2nd Gen Pen Needle) 5 times a day rosuvastatin 40 mg PO BEDTIME silver sulfadiazine 1% (Silvadene) 1 appl topical BID 30 days HPI Comments Details: 78-year-old male with a history of insulin-dependent diabetes mellitus with neuropathy, congestive heart failure with preserved ejection fraction, gastroesophageal reflux disease, coronary artery disease, essential hypertension who presented to the emergency department for evaluation after a fall. Sustained hip fracture. Baseline creatinine is around 1.3-1.4 mg/dL. He underwent hip surgery on 12/10/2022. Creatinine has bumped up to 1.7 mg/dL and he was seen in consultation during hospitalization for DEAN He is here for follow up today Accompanied by family Seen by cardiology recently [facility] Medical History CHF (congestive heart failure) Aortic stenosis PAD (peripheral artery disease) Heel ulcer Tobacco abuse Impacted cerumen of both ears Epidermoid cyst of skin of cheek Mass of face Allergic rhinitis Trigger finger, right middle finger Fracture of distal end of left radius with routine healing Superficial abrasion Pneumonia due to COVID-19 virus Acute hypoxemic respiratory failure due to COVID-19 Distal radius fracture, right Renal insufficiency Trigger finger, right middle finger Respiratory tract infection Preoperative clearance Iliac artery stenosis, 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 History of renal calculi Compression fracture of L1 lumbar vertebra Infective endocarditis Glaucoma Left carotid stenosis GERD (gastroesophageal reflux disease) Pulmonary nodule Cardiomyopathy Congestive heart failure Overweight (BMI 25.0-29.9) Carotid artery stenosis PVD (peripheral vascular disease) Dyslipidemia Hypertension CAD (coronary artery disease) Diabetic retinopathy associated with type 2 diabetes mellitus Diabetic polyneuropathy associated with type 2 diabetes mellitus CKD stage 3 due to type 2 diabetes mellitus Diabetic 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 diabetes mellitus residential (current) use of insulin Surgical History Hx of shoulder surgery Hx of coronary artery bypass graft Hx of cataract removal with insertion of prosthetic lens Hx of tonsillectomy Hx of appendectomy Hx of arthroscopy of right knee Family History Father Stomach cancer Mother Diabetes Brother Prostate abscess Social History Household Members: Spouse Housing: Apartment Do you presently have visiting nurse or other home services: Yes Alcohol intake: never Patient Tobacco Use Status: Never used Tobacco Tobacco use type: Cigarette Cigarette Packs Per Day: 0.25 Cigarettes Per Day: 3 Years Smoked: 65 e-Cigarette/Vaping Use: Never Used Second Hand Smoke Exposure: Yes Advance Directives Date on File: 06/08/21 service: No Current occupational status: 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 Cognitive needs: No Hearing needs: No Vision needs: No Physical Exam Vital Signs: Last Vital Signs Pulse 69 11/17/23 09:58 BP 122/50 L 11/17/23 09:58 Pulse Ox 96 11/17/23 09:58 Oxygen Delivery Method Room Air 11/17/23 09:58 BMI result Body Mass Index 30.5 Const General: comfortable; No acute distress Orientation/consciousness: patient oriented x3 Eyes General: appearance normal, both eyes and all related structures Visual El: normal visual el by confrontation Neck Neck: Yes supple and Yes no JVD Resp Effort & Inspection: normal respiratory effort and respiratory effort not decreased Auscultation: rhonchi Cardio Palpation: no palpable S3 and no palpable S4 Heart sounds: no rubs GI Inspection: Yes normal to inspection Palpation (GI): Soft to palpation Percussion: Yes normal to percussion Auscultation: normal bowel sounds General: Yes no CVA tenderness Back/Spine/Pelvis Back: no CVA tenderness Skin General skin exam: no petechiae and no purpura Neuro General: patient oriented x3 and no focal motor deficits Extrem General: No clubbing and No edema Results Reviewed Nephrology Results: Hgb 12.0 g/dl (14.0-18.0) L 11/14/23 WBC 9.2 X10*3/uL (4.8-10.8) 11/14/23 Plt Count 175 X10*3/uL (160-400) 11/14/23 Sodium 144 mmol/L (135-145) 11/14/23 Potassium 5.2 mmol/L (3.3-5.1) H 11/14/23 Chloride 110 mmol/L (96-108) H 11/14/23 Carbon Dioxide 25 mmol/L (22-29) 11/14/23 BUN 29 mg/dL (9-16) H 11/14/23 Creatinine 1.52 mg/dL (0.5-1.4) H 11/14/23 Calcium 9.6 mg/dL (8.4-10.2) 11/14/23 Urine Creatinine 65.86 mg/dL 07/29/23 Assessment & Plan Assessment & Plan (1) CHF (congestive heart failure): Comment: Diastolic Code(s): I50.9 - Heart failure, unspecified Category: Medical Qualifiers: Heart failure chronicity: acute on chronic Heart failure type: unspecified Qualified Code(s): I50.9 - Heart failure, unspecified (2) CKD stage 3 due to type 2 diabetes mellitus: Code(s): E11.22 - Type 2 diabetes mellitus with diabetic chronic kidney disease; N18.30 - Chronic kidney disease, stage 3 unspecified Category: Medical Plan 78-year-old man with chronic kidney disease in the setting of longstanding diabetes mellitus congestive heart failure. He is sustained acute kidney injury most likely due to hypoperfusion. REnal function has improved - close to baseline Recommendation Keep current dose of Lasix Encouraged him to stand low-sodium diet Continue to avoid nephrotoxic agents. Watch for anemia Maintain BP < 130/80 and A1C < 7% No changes were made today Coding Level of Care Code Est Pt Level 4 (89907) Diagnoses CHF (congestive heart failure) I50.9 Heart failure chronicity: acute on chronic Heart failure type: unspecified CKD stage 3 due to type 2 diabetes mellitus E11.22; N18.30
== END 2023-11-17 10:14 | disposition home or self-care (01) ==
PROVIDERS: PCP Internal Medicine; Visit Provider Internal Medicine Hypertension Specialist
DX: I50.9 Heart failure, unspecified (principal); E11.22 Type 2 diabetes mellitus with diabetic chronic kidney disease; N18.30 Chronic kidney disease, stage 3 unspecified
CPT/HCPCS: 99214

== ENCOUNTER → 2023-11-17 09:55 | Outpatient (BNVA) | payer MEDICARE, SELFPAY | PROVIDERS: PCP Internal Medicine; Visit Provider Internal Medicine Hypertension Specialist | DX: E11.22 Type 2 diabetes mellitus with diabetic chronic kidney disease (principal); N18.30 Chronic kidney disease, stage 3 unspecified; I50.9 Heart failure, unspecified | CPT/HCPCS: 99212 ==

== ENCOUNTER 2023-12-08 09:52 | Outpatient (AMB) | payer MEDICARE, SELFPAY ==
--- NOTE | 2023-12-08 10:01 | MHC.PC.OV ---
Vital Signs 12/08/23 10:02 Height 5 ft 6 in Weight 186 lb BMI 30.0 BP 122/50 L Blood Pressure Location Lt brachial Position Sitting Pulse 74 Pulse Source Pulse Oximeter Pulse Oximetry (%) 94 Oxygen Delivery Method Room Air Intake Visit Reasons: CHF, HTN Allergies No Known Allergies Allergy (Verified 11/17/23 10:01) Medication List - Last Reconciled 12/08/23 by Marcia Clements MD acetaminophen (Tylenol Extra Strength) 500 mg PO Q6H PRN amlodipine 10 mg PO BEDTIME ascorbic acid (vitamin C) 500 mg PO BEDTIME PRN aspirin 81 mg PO BEDTIME benzonatate 200 mg PO BID-TID PRN blood sugar diagnostic (FreeStyle Lite Strips) As directed four times a day 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 meter (FreeStyle [place] Lite kit) As directed 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 meter,continuous (Dexcom G6 Laborer Driver) As directed 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 sensor (Dexcom G6 Sensor device) As directed 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 transmitter (Dexcom G6 Transmitter device) As directed brimonidine 0.15% 1 drp ophthalmic (eye) BID clopidogrel (Plavix) 75 mg PO DAILY collagenase clostridium histo. (Santyl) 1 appl topical DAILY [diabetic shoe lift As directed] [diabetic shoes As directed] docusate sodium 200 mg PO DAILY PRN dorzolamide-timolol 22.3-6.8 mg/mL 1 drp ophthalmic (eye) BID dulaglutide (Trulicity) 1.5 mg (0.5 mL) subcut PONCE@0900 4 weeks furosemide 40 mg See Protocol PO DAILY gabapentin 300 mg PO BEDTIME guaifenesin ER (Mucinex) 600 mg PO Q12H PRN [hospital bed As directed] [HOSPITAL BED As directed] insulin degludec 20 units (0.2 mL) subcut BEDTIME insulin lispro (Humalog KwikPen (U-100) Insulin) 6 units (0.06 mL) subcut TIDAC isosorbide mononitrate ER 30 mg See Protocol PO DAILY lancets (FreeStyle Lancets) As directed check BS QD metoprolol succinate ER 25 mg PO DAILY multivitamin 1 tab PO BEDTIME nicotine 1 patch transdermal DAILY pen needle, diabetic (BD Martina 2nd Gen Pen Needle) 5 times a day rosuvastatin 40 mg PO BEDTIME silver sulfadiazine 1% (Silvadene) 1 appl topical BID 30 days Tobacco use date assessed: 08/20/23 Dental Screening Dental Screen Date: 05/27/23 HPI CHF, HTN HPI Details 78-year-old obese male smoker with multiple medical problems patient is diabetic with psoriasis with a history of compression fracture lumbar, GERD cardiomyopathy hypercholesterolemia coronary artery disease chronic kidney disease anxiety and depression congestive heart failure with aortic stenosis coming in for follow-up. Last seen in July having pneumonia. Review of the notes in October 24 was in the hospital for shortness of breath chest pains Lasix/diuretic given. Echocardiogram done October 24 showing normal left ventricular systolic function EF of 60-65% grade 2 moderate diastolic dysfunction with pseudonormal left ventricular filling left atrium mildly dilated aortic valve mild to moderate aortic stenosis with mild aortic regurg borderline pulmonary hypertension.. Patient is also followed up with Nephrology keep current dose of Lasix low-sodium diet avoid NSAIDs continue to monitor anemia maintain good blood pressure control and diabetes control. September urgent Care/ER visit due to hypoglycemia.. Patient also also followed up with Cardiology seen in September 22 frequent PVCs on Holter despite amiodarone which was discontinued. Patient presently on dual antiplatelet therapy. Patient has also followed up with vascular surgeon has a history of nonhealing ulcer 03/26/2023 right heel going to wound care patient has undergone right superior femoral arthroplasty 03/26/2023 [facility] Medical History (Updated 12/08/23 @ 10:21 by Marcia Clements MD) CHF (congestive heart failure) Aortic stenosis PAD (peripheral artery disease) Heel ulcer Tobacco abuse Impacted cerumen of both ears Epidermoid cyst of skin of cheek Mass of face Allergic rhinitis Trigger finger, right middle finger Fracture of distal end of left radius with routine healing Superficial abrasion Pneumonia due to COVID-19 virus Acute hypoxemic respiratory failure due to COVID-19 Distal radius fracture, right Renal insufficiency Trigger finger, right middle finger Respiratory tract infection Preoperative clearance Iliac artery stenosis, 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 History of renal calculi Compression fracture of L1 lumbar vertebra Infective endocarditis Glaucoma Left carotid stenosis GERD (gastroesophageal reflux disease) Pulmonary nodule Cardiomyopathy Congestive heart failure Overweight (BMI 25.0-29.9) Carotid artery stenosis PVD (peripheral vascular disease) Dyslipidemia Hypertension CAD (coronary artery disease) Diabetic retinopathy associated with type 2 diabetes mellitus Diabetic polyneuropathy associated with type 2 diabetes mellitus CKD stage 3 due to type 2 diabetes mellitus Diabetic 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 diabetes mellitus joint terminal attack controller (current) use of insulin Surgical History Hx of shoulder surgery Hx of coronary artery bypass graft Hx of cataract removal with insertion of prosthetic lens Hx of tonsillectomy Hx of appendectomy Hx of arthroscopy of right knee Family History Father Stomach cancer Mother Diabetes Brother Prostate abscess Social History Household Members: Spouse Housing: Apartment Do you presently have visiting nurse or other home services: Yes Alcohol intake: never Patient Tobacco Use Status: Never used Tobacco Tobacco use type: Cigarette Cigarette Packs Per Day: 0.25 Cigarettes Per Day: 3 Years Smoked: 65 e-Cigarette/Vaping Use: Never Used Second Hand Smoke Exposure: Yes Advance Directives Date on File: 06/08/21 service: No Current occupational status: 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 Cognitive needs: No Hearing needs: No Vision needs: No Questionnaire Thrive Questionnaire Date Thrive assessed: 04/11/23 Are you currently unemployed and looking for a job?: I choose not to answer this question THIERNO-7 AMB Questionnaire THIERNO-7 Date THIERNO - 7 assessed: 05/07/23 Source: Developed by Drs. Mendez Warren, Chelsea David, Kane Oakes and colleagues, with an educational charisse from [employer]. Physical exam (Primary Care) Vital Signs: Last Vital Signs Pulse 74 12/08/23 10:02 BP 122/50 L 12/08/23 10:02 Pulse Ox 94 12/08/23 10:02 Oxygen Delivery Method Room Air 12/08/23 10:02 BMI result Body Mass Index 30.0 Tobacco/Smoking Status: Tobacco use Status Tobacco use date assessed 08/20/23 12/08/23 10:01 Patient Tobacco Use Status Never used Tobacco 12/08/23 10:01 Tobacco use type Cigarette 12/08/23 10:01 e-Cigarette/Vaping Use Never Used 12/08/23 10:01 Thrive Assessment: Date of Thrive Assessment Date Thrive assessed 04/11/23 12/08/23 10:01 Const General: alert; No acute distress Eyes Conjunctivae: conjunctivae normal Resp Auscultation: clear to auscultation bilaterally Cardio Rate: regular rate Rhythm: regular rhythm GI Inspection: Yes normal to inspection Extrem General: Yes normal to inspection and No edema Assessment and Plan Assessment & Plan (1) Type 2 diabetes mellitus with hyperglycemia: Code(s): E11.65 - Type 2 diabetes mellitus with hyperglycemia Qualifiers: Diabetes mellitus intermission coordinator insulin use: with intermission coordinator use Qualified Code(s): E11.65 - Type 2 diabetes mellitus with hyperglycemia; Z79.4 - retirement (current) use of insulin Plan: Decrease the amount of carbohydrate intake, pasta, bread, rice and potatoes are all sugar and that is aside from all the sweet stuff, remember that fruits are good but they are Sweet also. Hemoglobin A1c goal of less than 7.0 presently on Trulicity insulin short and long-acting (2) GERD (gastroesophageal reflux disease): Code(s): K21.9 - Gastro-esophageal reflux disease without esophagitis Qualifiers: Esophagitis presence: without esophagitis Qualified Code(s): K21.9 - Gastro-esophageal reflux disease without esophagitis Plan: Avoid the foods that causes that usually spicy foods, tomato products, juices, coffee, soda and foods that your sensitive to. After eating do not lie down, allow 3-4 hours before in lie down. And keep the head of bed above 30 degrees to avoid the acid from going up. (3) PVD (peripheral vascular disease): Comment: 08/12/2018- bilateral iliac stents 03/28/2021 - right SFA atherectomy and stenting 03/26/2023 - right SFA plasty Code(s): I73.9 - Peripheral vascular disease, unspecified Plan: When sitting down elevate the legs, exercise, and support stockings patient follows up with vascular. (4) Dyslipidemia: Code(s): E78.5 - Hyperlipidemia, unspecified Plan: Avoid fried foods, chicken skin, eggs, butter margarine, pastries and meat. Be it pork or beef they have a lot of cholesterol LDL goal of less than 70 and triglyceride of less than 150 on rosuvastatin 40 mg at bedtime last blood work July 2023 at goal (5) CAD (coronary artery disease): Code(s): I25.10 - Atherosclerotic heart disease of [place] coronary artery without angina pectoris Qualifiers: Coronary Disease-Associated Artery/Lesion type: [place] artery Council vs. transplanted heart: [place] heart Associated angina: without angina Qualified Code(s): I25.10 - Atherosclerotic heart disease of [place] coronary artery without angina pectoris Plan: Control the cholesterol, weight, blood pressure, diabetes on dual antiplatelet with aspirin 81 mg once a day and clopidogrel (6) CKD stage 3 due to type 2 diabetes mellitus: Code(s): E11.22 - Type 2 diabetes mellitus with diabetic chronic kidney disease; N18.30 - Chronic kidney disease, stage 3 unspecified Plan: Patient follows up with Nephrology aggressive risk reduction with cholesterol, diabetes and blood pressure. (7) Tobacco abuse: Comment: stopped 09/2021, continuing February 2023 Code(s): Z72.0 - Tobacco use Plan: Patient is strongly advised to stop smoking (8) Aortic stenosis: Comment: April 2021, December 2021 1.3 cm November 2022 1.October Code(s): I35.0 - Nonrheumatic aortic (valve) stenosis Plan: Continuing to monitor. 11/11/2023 last echocardiogram. (9) CHF (congestive heart failure): Comment: Diastolic Code(s): I50.9 - Heart failure, unspecified Qualifiers: Heart failure chronicity: acute on chronic Heart failure type: unspecified Qualified Code(s): I50.9 - Heart failure, unspecified Plan: Weigh daily and continue with present medication Orders: Orders Complete Blood Count Auto Diff Today E11.65 - Type 2 diabetes mellitus with hyperglycemia, Z79.4 - retirement (current) use of insulin Comprehensive Met. Panel Today E11.65 - Type 2 diabetes mellitus with hyperglycemia, Z79.4 - retirement (current) use of insulin B Type Natriuretic Peptide Today E11.65 - Type 2 diabetes mellitus with hyperglycemia, Z79.4 - retirement (current) use of insulin Hemoglobin A1c Today E11.65 - Type 2 diabetes mellitus with hyperglycemia, Z79.4 - joint terminal attack controller (current) use of insulin Thyroid Stimulating Hormone Today E11.65 - Type 2 diabetes mellitus with hyperglycemia, Z79.4 - retirement (current) use of insulin Free T4 (Free Thyroxine) Today E11.65 - Type 2 diabetes mellitus with hyperglycemia, Z79.4 - retirement (current) use of insulin Magnesium Today E11.65 - Type 2 diabetes mellitus with hyperglycemia, Z79.4 - joint terminal attack controller (current) use of insulin Coding Level of Care Code Est Pt Level 4 (73122) Complex EM visit Add On G2211 Diagnoses Type 2 diabetes mellitus with hyperglycemia, with long-term current use of insulin E11.65; Z79.4 Diabetes mellitus long-term insulin use: with long-term use Gastroesophageal reflux disease without esophagitis K21.9 Esophagitis presence: without esophagitis PVD (peripheral vascular disease) I73.9 Dyslipidemia E78.5 Coronary artery disease involving [place] coronary artery of [place] heart without angina pectoris I25.10 Coronary Disease-Associated Artery/Lesion type: [place] artery Council vs. transplanted heart: [place] heart Associated angina: without angina CKD stage 3 due to type 2 diabetes mellitus E11.22; N18.30 Tobacco abuse Z72.0 Aortic stenosis I35.0 CHF (congestive heart failure) I50.9 Heart failure chronicity: acute on chronic Heart failure type: unspecified
[2023-12-08 10:02] VITALS: BP 122/50; PULSE 74; O2SAT 94
== END 2023-12-08 10:44 | disposition home or self-care (01) ==
PROVIDERS: PCP Internal Medicine; Visit Provider Internal Medicine
DX: E11.65 Type 2 diabetes mellitus with hyperglycemia (principal); Z79.4 Long term (current) use of insulin; K21.9 Gastro-esophageal reflux disease without esophagitis; I73.9 Peripheral vascular disease, unspecified; E78.5 Hyperlipidemia, unspecified; I25.10 Atherosclerotic heart disease of native coronary artery without angina pectoris; E11.22 Type 2 diabetes mellitus with diabetic chronic kidney disease; N18.30 Chronic kidney disease, stage 3 unspecified; Z72.0 Tobacco use; I35.0 Nonrheumatic aortic (valve) stenosis; I50.9 Heart failure, unspecified

== ENCOUNTER → 2023-12-08 09:52 | Outpatient (BNVA) | payer MEDICARE, SELFPAY | PROVIDERS: PCP Internal Medicine; Visit Provider Internal Medicine | DX: I13.0 Hypertensive heart and chronic kidney disease with heart failure and stage 1 through stage 4 chronic kidney disease, or unspecified chronic kidney disease (principal); E11.22 Type 2 diabetes mellitus with diabetic chronic kidney disease; N18.30 Chronic kidney disease, stage 3 unspecified; I50.9 Heart failure, unspecified; I35.0 Nonrheumatic aortic (valve) stenosis; E78.5 Hyperlipidemia, unspecified; K21.9 Gastro-esophageal reflux disease without esophagitis; E11.65 Type 2 diabetes mellitus with hyperglycemia; Z79.4 Long term (current) use of insulin | CPT/HCPCS: 99212 ==

== ENCOUNTER → 2023-12-15 10:49 | Outpatient (REF) | payer MEDICARE, SELFPAY ==
--- NOTE | 2023-12-15 10:53 | CA_ITS ---
Transthoracic Echocardiogram Patient (Last, First, Middle): Deyanira Vitale, Gender: Male Date of : 1945 Age: 78 Procedure Date: 12/15/2023 Procedure Type: Transthoracic Echocardiogram Location: OP Height: 167.64 cm Weight: 85.28 kg BSA: 1.95 m2 Heart Rate: bpm BP: 132 / 70 mmHg Human Resources Vice President: JAMES Referring MD: Skylar Gamez PROFESSIONAL BUILDERSoledadC Symptoms: I35.0 - Nonrheumatic aortic (valve) stenosis Study Quality: Technically Difficult due to limited windows ECG Rhythm: Sinus Conclusions: - The left ventricular systolic function is normal. The calculated ejection fraction is 58% by biplane method. - There is severely increased left ventricular wall thickness. - There is severe calcification of the aortic valve. There is mild to moderate aortic valve stenosis. - There is moderate mitral annular calcification. Findings Left Ventricle Normal left ventricular cavity size. There is severely increased left ventricular wall thickness. The left ventricular systolic function is normal. The calculated ejection fraction is 58% by biplane method. There is no evidence of regional wall motion abnormalities. Evidence suggests grade I (mild) diastolic dysfunction. Right Ventricle Normal right ventricular cavity size and systolic function. Atria Both atria are normal in size. Aortic Valve There is severe calcification of the aortic valve. There is mild to moderate aortic valve stenosis. There is trace (trivial) aortic valve regurgitation. Dimensionless index 0.35. Mitral Valve There is moderate mitral annular calcification. There is no mitral valve regurgitation. There is no mitral valve stenosis. Pulmonic Valve The pulmonic valve is likely normal. Tricuspid Valve Normal tricuspid valve structure. There is trace tricuspid valve regurgitation. There is no evidence of pulmonary hypertension. Great Vessels The asc aorta is normal in size. Venous The inferior vena cava is normal in size and collapses greater than 50% with inspiration. Pericardium/Pleural There is no evidence of pericardial effusion. Prior Study Comparison No significant change compared to prior study dated: 12/09/2022. Measurements 2D Linear Measurements IVSd: 1.66 0.6-0.9/0.6-1.0 cm LVIDd: 4.06 3.9-5.3/4.2-5.9 cm LVIDd Index: 2.08 2.4-3.2/2.2-3.1 cm/m2 LVIDs: 2.74 2.0-3.6 cm LVPWd: 1.62 0.7-1.1 cm Ao Root: 3.20 2.1-3.5 cm LA Diam: 4.60 2.7-3.8/3.0-4.0 cm LAIDs Index: 2.36 1.5-2.3 cm/m2 LV Mass: 341.66 67-162/88-224 g LV Mass Index: 175.21 43-95/49-115 g/m2 LVOT Diam: 2.10 3.0+(-)1.3 cm 2D Systolic Function EF 4C: 58.00 >55% EF 2C: 59.70 >55% EF BiP: 58.30 >55% Mitral Valve MV VTI: 0.37 MV Pk Everton: 1.29 MV Mn Everton: 0.68 MV Pk Grad: 7.00 MV Mn Grad: 2.00 MV Pk E: 0.96 MV PK A: 1.35 MV Decel Time: 257.00 E/A: 0.70 E'Lateral: 5.22 E'Medial: 3.15 E/E' Med: 30.30 E/E' Lat: 18.30 PHT: 75.00 MVA PHT: 2.93 MVA Continuity: 2.14 Decel Williamson: 3.71 Aortic Valve AoV Pk Ever[place]: 2.61 AoV Mn [place]: 1.87 AoV VTI: 0.57 AoV Pk Grad: 27.00 Aov Mn Grad: 16.00 SCOTT Cont.VTI: 1.38 LVOT LVOT Pk [place]: 0.91 LVOT Mn [place]: 0.59 LVOT VTI: 0.23 LVOT Pk Grad: 3.00 LVOT Mn Grad: 2.00 LVOT Diam: 2.10 LVOT Area: 3.46 Diastolic Function MV Pk E: 0.96 MV Pk A: 1.35 E/A: 0.70 E'Medial: 3.15 E/E' Med: 30.30 E' Laterial: 5.22 E/E' Lat: 18.30 Right Ventricle TAPSE (mm): 24.00 TVS' Ever[place]: 11.00 Tricuspid Valve TR Pk [place]: 2.31 TR Pk Grad: 21.00 RA Press: 3.00 RVSP: 24.00 Great Vessels Aorta Ao Root-2D: 3.20 2.0-3.7 cm Ao Asc: 3.10 2.1-3.4 cm Pulmonary Valve PV Pk [place]: 0.80 Peak PV Grad: 3.00 Updated in Other Vendor System with Status of Final Johnny Lombardo MD electronically signed on 12/15/2023 2:25:27 PM with status of Final
== END ==
LOC: HO.CARD 10:49
PROVIDERS: PCP Internal Medicine; Visit Provider Nurse Practitioner Family
DX: I35.0 Nonrheumatic aortic (valve) stenosis (principal); I50.9 Heart failure, unspecified
CPT/HCPCS: 93306

== ENCOUNTER → 2023-12-15 10:53 | Outpatient (BNV) | payer MEDICARE, SELFPAY | PROVIDERS: PCP Internal Medicine; Visit Provider Internal Medicine | DX: I35.0 Nonrheumatic aortic (valve) stenosis (principal); I35.8 Other nonrheumatic aortic valve disorders; I34.81 Nonrheumatic mitral (valve) annulus calcification | CPT/HCPCS: 93306 ==

== ENCOUNTER 2024-02-02 10:09 | Outpatient (AMB) | payer MEDICARE, SELFPAY ==
[2024-02-02 10:11] VITALS: BP 124/68; PULSE 72; BMI 27.0
--- NOTE | 2024-02-02 10:11 | MHC.OFFVIS ---
Vital Signs 02/02/24 10:11 Height 5 ft 6 in Weight 167 lb 8.821 oz BMI 27.0 BP 124/68 Blood Pressure Location Lt brachial Position Sitting Pulse 72 Pulse Source Pulse Oximeter Intake Visit Reasons: 3 mth s/p echo Process Treater Required: Yes Process Treater Services: Process Treater Offered & Declined Allergies No Known Allergies Allergy (Verified 11/17/23 10:01) Medication List - Last Reconciled 02/02/24 by Emile Bridges MD acetaminophen (Tylenol Extra Strength) 500 mg PO Q6H PRN amlodipine 10 mg PO BEDTIME ascorbic acid (vitamin C) 500 mg PO BEDTIME PRN aspirin 81 mg PO BEDTIME benzonatate 200 mg PO BID-TID PRN blood sugar diagnostic (FreeStyle Lite Strips) As directed four times a day 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 meter (FreeStyle [place] Lite kit) As directed 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 meter,continuous (Dexcom G6 [employer] Trench [employer]ger) As directed 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 sensor (Dexcom G6 Sensor device) As directed 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 transmitter (Dexcom G6 Transmitter device) As directed brimonidine 0.15% 1 drp ophthalmic (eye) BID clopidogrel (Plavix) 75 mg PO DAILY collagenase clostridium histo. (Santyl) 1 appl topical DAILY [diabetic shoe lift As directed] [diabetic shoes As directed] docusate sodium 200 mg PO DAILY PRN dorzolamide-timolol 22.3-6.8 mg/mL 1 drp ophthalmic (eye) BID dulaglutide (Trulicity) 1.5 mg (0.5 mL) subcut PONCE@0900 4 weeks furosemide 40 mg See Protocol PO DAILY gabapentin 300 mg PO BEDTIME guaifenesin ER (Mucinex) 600 mg PO Q12H PRN [hospital bed As directed] [HOSPITAL BED As directed] insulin degludec 20 units (0.2 mL) subcut BEDTIME insulin lispro (Humalog KwikPen (U-100) Insulin) 6 units (0.06 mL) subcut TIDAC isosorbide mononitrate ER 30 mg See Protocol PO DAILY lancets (FreeStyle Lancets) As directed check BS QD metoprolol succinate ER 25 mg PO DAILY multivitamin 1 tab PO BEDTIME nicotine 1 patch transdermal DAILY pen needle, diabetic (BD Martina 2nd Gen Pen Needle) 5 times a day rosuvastatin 40 mg PO BEDTIME silver sulfadiazine 1% (Silvadene) 1 appl topical BID 30 days HPI Comments Details: Bibi comes for follow-up. Recent echocardiogram shows preserved LV ejection fraction with [id number] aortic stenosis. No new cardiac symptoms. Denies prolonged palpitation irregular heartbeat. No lightheadedness, syncope. No heart failure symptoms. Denies any orthopnea, PND, leg edema or worsening shortness of breath. Denies any exertional chest pain. As per the he has been losing weight. [facility] Medical History CHF (congestive heart failure) Aortic stenosis PAD (peripheral artery disease) Heel ulcer Tobacco abuse Impacted cerumen of both ears Epidermoid cyst of skin of cheek Mass of face Allergic rhinitis Trigger finger, right middle finger Fracture of distal end of left radius with routine healing Superficial abrasion Pneumonia due to COVID-19 virus Acute hypoxemic respiratory failure due to COVID-19 Distal radius fracture, right Renal insufficiency Trigger finger, right middle finger Respiratory tract infection Preoperative clearance Iliac artery stenosis, 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 History of renal calculi Compression fracture of L1 lumbar vertebra Infective endocarditis Glaucoma Left carotid stenosis GERD (gastroesophageal reflux disease) Pulmonary nodule Cardiomyopathy Congestive heart failure Overweight (BMI 25.0-29.9) Carotid artery stenosis PVD (peripheral vascular disease) Dyslipidemia Hypertension CAD (coronary artery disease) Diabetic retinopathy associated with type 2 diabetes mellitus Diabetic polyneuropathy associated with type 2 diabetes mellitus CKD stage 3 due to type 2 diabetes mellitus Diabetic 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 diabetes mellitus group home (current) use of insulin Surgical History Hx of shoulder surgery Hx of coronary artery bypass graft Hx of cataract removal with insertion of prosthetic lens Hx of tonsillectomy Hx of appendectomy Hx of arthroscopy of right knee Family History Father Stomach cancer Mother Diabetes Brother Prostate abscess Social History Household Members: Spouse Housing: Apartment Do you presently have visiting nurse or other home services: Yes Alcohol intake: never Patient Tobacco Use Status: Never used Tobacco Tobacco use type: Cigarette Cigarette Packs Per Day: 0.25 Cigarettes Per Day: 3 Years Smoked: 65 e-Cigarette/Vaping Use: Never Used Second Hand Smoke Exposure: Yes Advance Directives Date on File: 06/08/21 service: No Current occupational status: 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 Cognitive needs: No Hearing needs: No Vision needs: No Review of Systems Const Denies weakness ENT Denies dizziness Card Denies chest pain, Denies chest pain with activity, Denies syncope, Denies rapid heart rate, Denies pedal edema, Denies edema, Denies leg edema, Denies lightheadedness, Denies palpitations, Denies dyspnea, Denies dyspnea on exertion and Denies orthopnea Resp Denies cough, Denies dyspnea and Denies dyspnea on exertion GI Denies hematochezia and Denies change in stool character Musc Denies abnormal gait, Denies muscle cramps, Denies muscle weakness, Denies numbness, Denies radiating pain into limb and Denies tingling Neuro Denies abnormal gait, Denies dizziness, Denies syncope, Denies numbness, Denies tingling and Denies weakness Endo Denies palpitations Physical Exam Vital Signs: Last Vital Signs Pulse 72 02/02/24 10:11 BP 124/68 02/02/24 10:11 BMI result Body Mass Index 27.0 Const General: cooperative, comfortable, no acute distress, alert, awake and other (Disheveled) Nutritional Appearance: obese Orientation/consciousness: patient oriented x3 Limitations: no limitations Neck Neck: Yes trachea midline, Yes supple and Yes no JVD Resp Effort & Inspection: normal respiratory effort Auscultation: clear to auscultation bilaterally and diminished lung sounds Cardio Jugular venous distension: no JVD Palpation: normal PMI Rate: regular rate Rhythm: abnormal rhythm with ectopic beats Heart sounds: S1 normal heart sound present, S2 normal heart sound present (soft), no click, no gallops, Murmur heart sound present systolic mid, blowing and decrescendo and Other heart sounds present (Soft to absent S2) Peripheral pulses: other (Reduced distal pulses) GI Auscultation: normal bowel sounds Skin General skin exam: no rashes or lesions noted and ecchymosis Neuro General: patient oriented x3 and no focal motor deficits Extrem General: Yes no clubbing, cyanosis or edema Assessment & Plan Assessment & Plan (1) CAD (coronary artery disease): Code(s): I25.10 - Atherosclerotic heart disease of [place] coronary artery without angina pectoris Category: Medical Qualifiers: Coronary Disease-Associated Artery/Lesion type: [place] artery [place] vs. transplanted heart: [place] heart Associated angina: without angina Qualified Code(s): I25.10 - Atherosclerotic heart disease of [place] coronary artery without angina pectoris Plan: CAD status post coronary artery bypass grafting. No current symptoms suggestive of angina. Continue low-dose aspirin therapy for life. Continue high-intensity statin therapy. Target goal LDL closer to 60 mg/dL. Recommend aggressive diabetes management pursued through office goal hemoglobin A1c less than 7%. Currently on dual antiplatelet therapy given his PVD as well. Continue aggressive blood pressure control which is currently well optimized. Continue metoprolol therapy (2) Aortic stenosis: Comment: April 2021, December 2021 1.3 cm November 2022 1.October Code(s): I35.0 - Nonrheumatic aortic (valve) stenosis Category: Medical Plan: Aortic stenosis which is [id number]-ed-[id number]. No interventions required. Continue aggressive vascular risk factor modification above. Follow-up echocardiogram in 1 year's time. (3) CHF (congestive heart failure): Comment: Diastolic Code(s): I50.9 - Heart failure, unspecified Category: Medical Qualifiers: Heart failure chronicity: acute on chronic Heart failure type: unspecified Qualified Code(s): I50.9 - Heart failure, unspecified Plan: Heart failure preserved ejection fraction secondary to severe hypertensive heart disease. He had severe LVH with preserved LV ejection fraction. Currently on diuretic therapy. Doing well continue the same. Daily weight monitoring avoidance of salt loading was discussed. Additional diuretics as need be. Continue aggressive blood pressure control. Encouraged to increase activity level as tolerated. Will follow up in the clinic in 6 months time, sooner p.r.n.. Thank you for allowing me to partake in his care Coding Level of Care Code Est Pt Level 4 (47873) Complex EM visit Add On G2211 Diagnoses Coronary artery disease involving [place] coronary artery of [place] heart without angina pectoris I25.10 Coronary Disease-Associated Artery/Lesion type: [place] artery [place] vs. transplanted heart: [place] heart Associated angina: without angina Aortic stenosis I35.0 CHF (congestive heart failure) I50.9 Heart failure chronicity: acute on chronic Heart failure type: unspecified
== END 2024-02-02 10:32 | disposition home or self-care (01) ==
PROVIDERS: PCP Internal Medicine; Visit Provider Internal Medicine Cardiovascular Disease
DX: I25.10 Atherosclerotic heart disease of native coronary artery without angina pectoris (principal); I35.0 Nonrheumatic aortic (valve) stenosis; I50.9 Heart failure, unspecified
CPT/HCPCS: 99214; G2211

== ENCOUNTER → 2024-02-02 10:09 | Outpatient (BNVA) | payer MEDICARE, SELFPAY | PROVIDERS: PCP Internal Medicine; Visit Provider Internal Medicine Cardiovascular Disease | DX: I35.0 Nonrheumatic aortic (valve) stenosis (principal); I25.10 Atherosclerotic heart disease of native coronary artery without angina pectoris; I11.0 Hypertensive heart disease with heart failure; I50.33 Acute on chronic diastolic (congestive) heart failure | CPT/HCPCS: 99212 ==

== ENCOUNTER 2024-03-29 10:06 | Outpatient (REF) | payer MEDICARE, MEDICAID, SELFPAY ==
[2024-03-29 11:36] LABS: MANUAL DIFF FLAG NO
[2024-03-29 12:10] LABS: Basophils Absolute Auto 0.1 X10*3/uL (0.0-0.2); Basophils Percent Auto 0.7 % (0-2); Eosinophils Absolute Auto 0.4 X10*3/uL (0.0-0.4); Eosinophils Percent Auto 3.6 % (0-4); Hematocrit 36.7 % (42.0-52.0); Hemoglobin 12.6 g/dl (14.0-18.0); Imm Gran Abs Auto 0.02 X10*3/uL (0.00-0.03); Imm Gran Pct Auto 0.2 % (0.0-0.4); Immature Retic Fraction 14.5 % (2.3-13.4); Lymphocytes Absolute Auto 2.6 X10*3/uL (1.2-4.9); Lymphocytes Percent Auto 25.8 % (20-40); Mean Corpuscular HGB Conc 34.3 g/dl (31.0-36.0); Mean Corpuscular Volume 93.1 fL (80.0-98.0); Mean Platelet Volume 10.8 fL (9.4-12.4); Monocytes Absolute Auto 0.9 X10*3/uL (0.1-1.2); Monocytes Percent Auto 8.6 % (2-11); Neutrophils Percent Auto 61.1 % (45-73); Platelet Count 169 X10*3/uL (160-400); Red Blood Count 3.94 X10*6/uL (4.60-5.80); Red Cell Distribution Width 13.5 % (11.0-16.0); Retic HGB Equivalent 36.6 pg (30.0-35.0); Reticulocyte Percent 2.2 % (0.5-1.8); Reticulocytes Absolute 0.085 X10*6/uL (0.026-0.095); White Blood Count 9.9 X10*3/uL (4.8-10.8)
[2024-03-29 12:27] LABS: Estimated Average Glucose 203 mg/dL; Hemoglobin A1C 234.5121 umol/L; Hemoglobin A1c % 8.7 % (<6.0); Total Hemoglobin (HGBA1C) 3256.8383 umol/L
[2024-03-29 12:55] LABS: B Type Natriuretic Peptide 113 pg/mL (<100)
[2024-03-29 13:18] LABS: Alanine Aminotransferase 67 U/L (0-40); Albumin Level 4.2 g/dL (3.5-5.0); Alkaline Phosphatase 110 U/L (39-117); Anion Gap 13 (12-20); Aspartate Amino Transferase 30 U/L (5-37); Bilirubin Total 0.6 mg/dL (0.0-1.0); Blood Urea Nitrogen 27 mg/dL (9-16); Calcium 9.8 mg/dL (8.4-10.2); Carbon Dioxide 26 mmol/L (22-29); Chloride 106 mmol/L (96-108); Estimated Glomerular Filt Rate 43; Ferritin 170 ng/mL (20-250); Free T4 (Free Thyroxine) 1.05 ng/dL (0.71-1.85); Glucose Random 295 mg/dL (60-115); Iron 79 mcg/dL (45-160); Magnesium 1.9 mg/dL (1.6-2.6); Percent Iron Saturation 30 % (15-50); Potassium 4.5 mmol/L (3.3-5.1); Sodium 140 mmol/L (135-145); Thyroid Stimulating Hormone 3.03 uIU/mL (0.32-4.0); Total Iron Binding Capacity 260 mcg/dL (228-428); Total Protein 7.7 g/dL (6.5-8.0); Unsaturated Iron Binding 181 ug/dL
== END 2024-03-29 10:07 | disposition home or self-care (01) ==
LOC: HO.LAB 10:06
PROVIDERS: PCP Internal Medicine; Visit Provider Internal Medicine
DX: I25.10 Atherosclerotic heart disease of native coronary artery without angina pectoris (principal); E11.65 Type 2 diabetes mellitus with hyperglycemia; Z79.4 Long term (current) use of insulin; E66.811 Obesity, class 1; E11.22 Type 2 diabetes mellitus with diabetic chronic kidney disease; N18.30 Chronic kidney disease, stage 3 unspecified; I50.9 Heart failure, unspecified; E78.5 Hyperlipidemia, unspecified; R22.1 Localized swelling, mass and lump, neck; S32.010S Wedge compression fracture of first lumbar vertebra, sequela; Z72.0 Tobacco use
CPT/HCPCS: 36415; 80053; 82728; 83036; 83540; 83735; 83880; 84439; 84443; 85025; 85045; 96127; 99212

== ENCOUNTER 2024-03-29 10:06 | Outpatient (AMB) | payer MEDICARE, MEDICAID, SELFPAY ==
--- NOTE | 2024-03-29 10:07 | MHC.PC.OV ---
Vital Signs 03/29/24 10:08 Height 5 ft 6 in Weight 190 lb BMI 30.7 BP 128/68 Blood Pressure Location Lt brachial Position Sitting Pulse 76 Pulse Source Pulse Oximeter Pulse Oximetry (%) 97 Oxygen Delivery Method Room Air Intake Visit Reasons: Congestive heart failure Intake Note: Loss of appetite, Lump on right side of neck, requesting script for diclofenac sodium 1% Allergies No Known Allergies Allergy (Verified 03/29/24 10:08) Tobacco use date assessed: 03/29/24 Fall risk assessment: No Falls in past year Last assessed Fall Risk: 03/29/24 Dental Screening Dental Screen Date: 03/29/24 Did you have a dental visit in the last 12 months?: Yes Did you have a dental problem in the last 6 months where you did not have access to dental care?: No Was dental information given to patient?: Patient has dentist HPI Congestive heart failure HPI Details The patient is a 78-year-old male presenting with a history of aortic valve stenosis, hyperglycemia, hyperlipidemia, obesity, and tobacco use. Aortic valve stenosis was previously identified, with the valve area measuring approximately 1.65 cm, which is below the normal range of 2.5 to 3 cm. Despite the condition being stable, ongoing monitoring has been advised. The patient also manages hyperglycemia, as recent A1c levels were last reported at 7, prompting an adjustment in medication dosage to Trulicity 3 mg weekly from the previous 1.5 mg to better control blood sugar levels. The patient has a history of hyperlipidemia with an LDL cholesterol level of 42, which is well below the target threshold. Obesity, with a body mass index of 30, is a concern, correlating with occasional intake of high-sugar and high-caloric foods despite dietary advice. The patient also reports a small, painless lump in the neck, considered non-painful and asymptomatic, with arrangements made for an ultrasound. Tobacco use is ongoing, albeit reduced, and continued cessation is recommended. REPLACED BY [facility] Medical History CHF (congestive heart failure) Aortic stenosis PAD (peripheral artery disease) Heel ulcer Tobacco abuse Impacted cerumen of both ears Epidermoid cyst of skin of cheek Mass of face Allergic rhinitis Trigger finger, right middle finger Fracture of distal end of left radius with routine healing Superficial abrasion Pneumonia due to COVID-19 virus Acute hypoxemic respiratory failure due to COVID-19 Distal radius fracture, right Renal insufficiency Trigger finger, right middle finger Respiratory tract infection Preoperative clearance Iliac artery stenosis, 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 History of renal calculi Compression fracture of L1 lumbar vertebra Infective endocarditis Glaucoma Left carotid stenosis GERD (gastroesophageal reflux disease) Pulmonary nodule Cardiomyopathy Congestive heart failure Overweight (BMI 25.0-29.9) Carotid artery stenosis PVD (peripheral vascular disease) Dyslipidemia Hypertension CAD (coronary artery disease) Diabetic retinopathy associated with type 2 diabetes mellitus Diabetic polyneuropathy associated with type 2 diabetes mellitus CKD stage 3 due to type 2 diabetes mellitus Diabetic 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 Surgical History Hx of shoulder surgery Hx of coronary artery bypass graft Hx of cataract removal with insertion of prosthetic lens Hx of tonsillectomy Hx of appendectomy Hx of arthroscopy of right knee Family History Father Stomach cancer Mother Diabetes Brother Prostate abscess Social History Household Members: Spouse Housing: Apartment Do you presently have visiting nurse or other home services: Yes Alcohol intake: never Patient Tobacco Use Status: Never used Tobacco Tobacco use type: Cigarette Cigarette Packs Per Day: 0.25 Cigarettes Per Day: 3 Years Smoked: 65 e-Cigarette/Vaping Use: Never Used Second Hand Smoke Exposure: Yes Advance Directives Date on File: 06/08/21 service: No Current occupational status: 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 1. Little interest or pleasure in doing things: not at all 2. Feeling down, depressed, or hopeless: not at all 3. Trouble falling or staying asleep, or sleeping too much: not at all 4. Feeling tired or having little energy: not at all 5. Poor appetite or overeating: not at all 6. Feeling bad about yourself - or that you are a failure or have let yourself or your family down: not at all 7. Trouble concentrating on things, such as reading the newspaper or watching television: not at all 8. Moving or speaking so slowly that other people could have noticed. Or the opposite - being so fidgety or restless that you have been moving around a lot more than usual: not at all 9. Thoughts that you would be better off or of hurting yourself in some way: not at all Total score: 0 Depression Screening Interpretation: Negative Depression Screening Done: Yes 39218 - PHQ-9 Billing: Yes Source: Developed by Drs. Mendez Warren, Chelsea David, Kane Oakes and colleagues, with an educational charisse from [employer]. Thrive Questionnaire Date Thrive assessed: 03/29/24 I am a: Patient What is your living situation today?: I have a steady place to live Within the past 12 months, did the food you bought not last and you didn't have the money to get more?: Never true Within the past 12 months, did you worry whether your food would run out before you got money to buy more?: Never true Do you have trouble paying for medicines?: No Do you have trouble getting transportation to medical appointments?: No Do you have trouble paying your heating and electricity bill?: No Do you have trouble taking care of your child, family member or friend?: No Do you have trouble with day-to-day activities such as bathing, preparing meals, shopping, managing finances, etc.?: No Are you currently unemployed and looking for a job?: I choose not to answer this question Are you interested in more education?: No Currently or been in a relationship where the following occur: No concerns reported THRIVE Score: 0 AUDIT C Alcohol Use Questionnaire (AUDIT-C) 1. How often do you have a drink containing alcohol?: Never 2. How many drinks containing alcohol do you have on a typical day when you are drinking?: 1 or 2 (0) 3. How often do you have six or more drinks on one occasion?: Never Total Score: 0 THIERNO-7 AMB Questionnaire THIERNO-7 Date THIERNO - 7 assessed: 03/29/24 Feeling nervous, anxious, or on edge: 0 = Not at all Not being able to stop or control worryin = Not at all Worrying too much about different things: 0 = Not at all Trouble relaxin = Not at all Being so restless that it is hard to sit still: 0 = Not at all Becoming easily annoyed or irritable: 0 = Not at all Feeling afraid as if something awful might happen: 0 = Not at all Total THIERNO-7 score (0-4 normal; 5-9 mild; 10-14 moderate; 15-21 severe): 0 Source: Developed by Drs. Mendez Warren, Chelsea David, Kane Oakes and colleagues, with an educational charisse from [employer]. Physical exam (Primary Care) Vital Signs: Last Vital Signs Pulse 76 03/29/24 10:08 BP 128/68 03/29/24 10:08 Pulse Ox 97 03/29/24 10:08 Oxygen Delivery Method Room Air 03/29/24 10:08 BMI result Body Mass Index 30.7 Tobacco/Smoking Status: Tobacco use Status Tobacco use date assessed 03/29/24 03/29/24 10:10 Patient Tobacco Use Status Never used Tobacco 03/29/24 10:10 Tobacco use type Cigarette 03/29/24 10:10 e-Cigarette/Vaping Use Never Used 03/29/24 10:10 PHQ-9: PHQ-9 Score PHQ-9: Total score 0 03/29/24 10:24 Depression Screening Interpretation: Negative Thrive Assessment: Date of Thrive Assessment Date Thrive assessed 03/29/24 03/29/24 10:10 Currently or been in a relationship where the following occur: No concerns reported Const General: alert; No acute distress Eyes Conjunctivae: conjunctivae normal Resp Auscultation: clear to auscultation bilaterally Cardio Rate: regular rate Rhythm: regular rhythm GI Inspection: Yes normal to inspection Extrem General: Yes normal to inspection and No edema Results AMB Hemoglobin A1c AMB Hemoglobin A1c 9.1 % Last Edit by Sarah Johnson CMA on 03/29/24 10:25 Results Reviewed Results Reviewed: Laboratory Last Values Hgb A1c (Clinic) 9.1 % (4.0-6.0) H 03/29/24 10:10 Coding Level of Care Code Est Pt Level 4 (24713) Complex EM visit Add On G2211 Diagnoses Type 2 diabetes mellitus with hyperglycemia, with long-term current use of insulin E11.65; Z79.4 Diabetes mellitus retirement insulin 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 transplanted heart: [place] heart Associated angina: without angina CKD stage 3 due to type 2 diabetes mellitus E11.22; N18.30 Tobacco abuse Z72.0 CHF (congestive heart failure) I50.9 Heart failure chronicity: acute on chronic Heart failure type: unspecified Dyslipidemia E78.5 Neck mass R22.1 Compression fracture of L1 vertebra, sequela S32.010S Encounter type: sequela Additional Codes PHQ-9 - 52590 - PHQ-9 Billing: Yes ([id number]) Assessment & Plan Assessment & Plan (1) Type 2 diabetes mellitus with hyperglycemia: Code(s): E11.65 - Type 2 diabetes mellitus with hyperglycemia Category: Medical Qualifiers: Diabetes mellitus retirement insulin use: with watcher automat long goods use Qualified Code(s): E11.65 - Type 2 diabetes mellitus with hyperglycemia; Z79.4 - snf (current) use of insulin Plan: Decrease the amount of carbohydrate intake, pasta, bread, rice and potatoes are all sugar and that is aside from all the sweet stuff, remember that fruits are good but they are Sweet also. Hemoglobin A1c goal of less than 7.0 patient on Trulicity 1.5 mg once a week insulin long-acting 20 units once a day with Humalog 6 units 3 times a day. (2) Obesity (BMI 30.0-34.9): Code(s): E66.811 - Obesity, class 1 Category: Medical Plan: Diet and exercise (3) CAD (coronary artery disease): Code(s): I25.10 - Atherosclerotic heart disease of [place] coronary artery without angina pectoris Category: Medical Qualifiers: Coronary Disease-Associated Artery/Lesion type: [place] artery [place] vs. transplanted heart: [place] heart Associated angina: without angina Qualified Code(s): I25.10 - Atherosclerotic heart disease of [place] coronary artery without angina pectoris Plan: Control the cholesterol, weight, blood pressure, diabetes on clopidogrel 75 mg once a day and aspirin 81 mg once a day (4) CKD stage 3 due to type 2 diabetes mellitus: Code(s): E11.22 - Type 2 diabetes mellitus with diabetic chronic kidney disease; N18.30 - Chronic kidney disease, stage 3 unspecified Category: Medical Plan: Avoid NSAIDs, continue to monitor. (5) Tobacco abuse: Comment: stopped 09/2021, continuing February 2023 Code(s): Z72.0 - Tobacco use Category: Medical Plan: Patient is strongly advised to stop smoking (6) CHF (congestive heart failure): Comment: Diastolic Code(s): I50.9 - Heart failure, unspecified Category: Medical Qualifiers: Heart failure chronicity: acute on chronic Heart failure type: unspecified Qualified Code(s): I50.9 - Heart failure, unspecified Plan: Continue with the diuretic and weigh daily. (7) Dyslipidemia: Code(s): E78.5 - Hyperlipidemia, unspecified Category: Medical Plan: Avoid fried foods, chicken skin, eggs, butter margarine, pastries and meat. Be it pork or beef they have a lot of cholesterol LDL goal of less than 70 and triglyceride of less than 150 patient is on diet control. (8) Neck mass: Comment: right side 03/2024 Code(s): R22.1 - Localized swelling, mass and lump, neck Category: Medical (9) Compression fracture of L1 lumbar vertebra: Code(s): S32.010A - Wedge compression fracture of first lumbar vertebra, initial encounter for closed fracture Category: Medical Qualifiers: Encounter type: sequela Qualified Code(s): S32.010S - Wedge compression fracture of first lumbar vertebra, sequela Plan - Monitor aortic valve stenosis with regular cardiac evaluations as per cardiology guidance. - Increase Trulicity dose to 3 mg weekly to improve glycemic control, with another assessment of A1c planned in a few months. - Continue monitoring hyperlipidemia with periodic LDL checks; current levels are satisfactory. - Address obesity with dietary modifications and increased physical activity as tolerated. - Perform an ultrasound of the neck lump to determine the nature of the mass. 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 - Ensure preventive care measures are up to date, including vaccination status checks and scheduled blood work. Orders: Orders AMB Hemoglobin A1c Today Z13.9 - Encounter for screening, unspecified Hemoglobin A1c 3 Months I25.10 - Atherosclerotic heart disease of [place] coronary artery without angina pectoris Free T4 (Free Thyroxine) 3 Months I25.10 - Atherosclerotic heart disease of [place] coronary artery without angina pectoris Comprehensive Met. Panel 3 Months I25.10 - Atherosclerotic heart disease of [place] coronary artery without angina pectoris Creatinine Urine 3 Months E11.65 - Type 2 diabetes mellitus with hyperglycemia, I25.10 - Atherosclerotic heart disease of [place] coronary artery without angina pectoris Microalbumin, Random (w Creat) 3 Months E11.65 - Type 2 diabetes mellitus with hyperglycemia, I25.10 - Atherosclerotic heart disease of [place] coronary artery without angina pectoris Thyroid Stimulating Hormone 3 Months I25.10 - Atherosclerotic heart disease of [place] coronary artery without angina pectoris IRON PROFILE Today I25.10 - Atherosclerotic heart disease of [place] coronary artery without angina pectoris US soft tiss head and/or neck Today R22.1 - Localized swelling, mass and lump, neck Complete Blood Count Auto Diff 3 Months I25.10 - Atherosclerotic heart disease of [place] coronary artery without angina pectoris Vitamin B12 and Folate 3 Months I25.10 - Atherosclerotic heart disease of [place] coronary artery without angina pectoris Lipid Panel 3 Months E78.00 - Pure hypercholesterolemia, unspecified, I25.10 - Atherosclerotic heart disease of [place] coronary artery without angina pectoris Ferritin Today I25.10 - Atherosclerotic heart disease of [place] coronary artery without angina pectoris Reticulocyte Count Today I25.10 - Atherosclerotic heart disease of [place] coronary artery without angina pectoris Medications: New diclofenac sodium 1% (Arthritis Pain (diclofenac)) apply to single knee, ankle, foot; for foot includes sole/toes/top of foot 4 grams topical QID 100 grams 6RF S32.010S - Wedge compression fracture of first lumbar vertebra, sequela Changed From dulaglutide (Trulicity) 1.5 mg (0.5 mL) subcut PONCE@0900 4 weeks 2 mL 3RF E11.65 - Type 2 diabetes mellitus with hyperglycemia To dulaglutide 3 mg (0.5 mL) subcut PONCE@0900 4 weeks 2 mL 3RF E11.65 - Type 2 diabetes mellitus with hyperglycemia
[2024-03-29 10:08] VITALS: BP 128/68; PULSE 76; O2SAT 97; BMI 30.7
== END 2024-03-29 11:01 | disposition home or self-care (01) ==
PROVIDERS: PCP Internal Medicine; Visit Provider Internal Medicine
DX: E11.65 Type 2 diabetes mellitus with hyperglycemia (principal); Z79.4 Long term (current) use of insulin; E11.22 Type 2 diabetes mellitus with diabetic chronic kidney disease; N18.30 Chronic kidney disease, stage 3 unspecified; I50.9 Heart failure, unspecified; E66.811 Obesity, class 1; I25.10 Atherosclerotic heart disease of native coronary artery without angina pectoris; Z72.0 Tobacco use; E78.5 Hyperlipidemia, unspecified; R22.1 Localized swelling, mass and lump, neck; S32.010S Wedge compression fracture of first lumbar vertebra, sequela

== ENCOUNTER 2024-04-15 10:42 | Emergency (ER) | payer OTHER, SELFPAY ==
--- NOTE | ~2024-04-15 | XR_ITS ---
EXAMINATION: XR CHEST CLINICAL INFORMATION: cough COMPARISON: 08/16/2023. TECHNIQUE: 2 views of the chest were obtained. FINDINGS: The cardiac, hilar, and mediastinal contours are normal. Aorta is calcified. Surgical clips project over the mediastinum and heart. The lungs are diffusely hyperaerated and hyperlucent with mildly increased defined interstitial markings. Findings are consistent with COPD. Lungs otherwise clear bilaterally. There is no pneumothorax or pleural effusion. There is no focal osseous or soft tissue abnormality. Prior median sternotomy. Degenerative changes throughout the spine and bilateral shoulder joints. XR/XR chest 2V IMPRESSION: 1. COPD without evidence of active pulmonary disease. 2. Status post median sternotomy and CABG. Electronically signed by: Markell Culver MD 04/15/2024 12:15 PM [facility]
[2024-04-15 11:30] VITALS: BP 145/55; PULSE 75; RESP 16; TEMP 36.3; O2SAT 97; BMI 25.8
--- NOTE | 2024-04-15 11:33 | ED_ITS ---
HPI - General Adult General Chief complaint: Upper Respiratory Symptoms Stated complaint: [facility] Time Seen by Provider: 04/15/24 15:09 History of Present Illness HPI narrative: Patient complains of 5 days of worsening cough with sputum, no fever no shortness of breath, no chest pain no abdominal pain no nausea vomiting or diarrhea no leg pain no calf pain no calf swelling no leg swelling Patient also complains of a mild sore throat, no difficulty eating and drinking Related Data Home Medications ?Medication ?Instructions ?Recorded ?Confirmed dorzolamide 22.3 mg-timolol 6.8 1 drp ophthalmic (eye) BID 06/07/21 02/02/24 mg/mL eye drops multivitamin 1 tab PO BEDTIME 06/07/21 02/02/24 aspirin 81 mg tablet,delayed 81 mg PO BEDTIME 12/09/22 02/02/24 release brimonidine 0.15 % eye drops 1 drp ophthalmic (eye) BID 12/09/22 02/02/24 collagenase clostridium histo. 250 1 appl topical DAILY 03/03/23 02/02/24 unit/gram topical ointment (Santyl) ascorbic acid (vitamin C) 500 mg 500 mg PO BEDTIME PRN 08/05/23 02/02/24 tablet docusate sodium 100 mg capsule 200 mg PO DAILY PRN 08/05/23 02/02/24 Previous Rx's ?Medication ?Instructions ?Recorded acetaminophen 500 mg tablet 500 mg PO Q6H PRN pain or fever 01/30/21 (Tylenol Extra Strength) #20 tabs blood sugar diagnostic (FreeStyle #150 08/05/22 Lite Strips) 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 meter (FreeStyle #1 08/05/22 [place] Lite kit) lancets 28 gauge (FreeStyle #100 ea 08/05/22 Lancets) hospital bed #1 ea 01/02/23 HOSPITAL BED #1 ea 01/07/23 diabetic shoe lift #1 ea 03/14/23 diabetic shoes #2 ea 03/14/23 pen needle, diabetic 32 gauge x #400 ea 05/07/23 (BD Martina 2nd Gen Pen Needle) silver sulfadiazine 1 % topical 1 appl topical BID 30 days #400 05/07/23 cream (Silvadene) grams nicotine 14 mg/24 hr daily 1 patch transdermal DAILY #28 ea 06/27/23 transdermal patch 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 meter,continuous #1 ea 11/03/23 (Dexcom G6 Customs Manager) gabapentin 300 mg capsule 300 mg PO BEDTIME #90 caps 11/13/23 insulin degludec 100 unit/mL (3 20 unit (0.2 mL) subcut BEDTIME 11/13/23 mL) subcutaneous pen #15 mL insulin lispro 100 unit/mL 6 unit (0.06 mL) subcut TIDAC #15 11/13/23 subcutaneous pen (Humalog KwikPen mL (U-100) Insulin) furosemide 40 mg tablet 40 mg PO DAILY #30 tabs 12/03/23 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 sensor (Dexcom G6 #3 ea 12/29/23 Sensor device) 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 transmitter (Dexcom #1 ea 01/21/24 G6 Transmitter device) amlodipine 10 mg tablet 10 mg PO BEDTIME #90 tabs 02/04/24 rosuvastatin 40 mg tablet 40 mg PO DAILY #90 tabs 03/13/24 metoprolol succinate 25 mg 25 mg PO DAILY #90 tabs 03/16/24 tablet,extended release 24 hr diclofenac sodium 1 % topical gel 4 g topical QID #100 grams 03/29/24 (Arthritis Pain (diclofenac)) dulaglutide 3 mg/0.5 mL 3 mg (0.5 mL) subcut PONCE@0900 4 03/29/24 subcutaneous pen injector weeks #2 mL clopidogrel 75 mg tablet (Plavix) 75 mg PO DAILY #90 tabs 04/05/24 isosorbide mononitrate 30 mg 30 mg PO DAILY #90 tabs 04/05/24 tablet,extended release 24 hr albuterol sulfate 90 mcg/actuation 2 puff inhalation Q4-6H PRN 04/15/24 aerosol inhaler shortness of breath or wheezing #8.5 grams amoxicillin 875 mg-potassium 1 tab PO Q12H 5 days #10 tabs 04/15/24 clavulanate 125 mg tablet Allergies Allergy/AdvReac Type Severity Reaction Status Date / Time No Known Allergies Allergy Verified 04/15/24 11:34 [facility] Past Medical History Source: nursing notes reviewed Medical History CHF (congestive heart failure) Aortic stenosis PAD (peripheral artery disease) Heel ulcer Tobacco abuse Impacted cerumen of both ears Epidermoid cyst of skin of cheek Mass of face Allergic rhinitis Trigger finger, right middle finger Fracture of distal end of left radius with routine healing Superficial abrasion Pneumonia due to COVID-19 virus Acute hypoxemic respiratory failure due to COVID-19 Distal radius fracture, right Renal insufficiency Trigger finger, right middle finger Respiratory tract infection Preoperative clearance Iliac artery stenosis, 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 History of renal calculi Compression fracture of L1 lumbar vertebra Infective endocarditis Glaucoma Left carotid stenosis GERD (gastroesophageal reflux disease) Pulmonary nodule Cardiomyopathy Congestive heart failure Overweight (BMI 25.0-29.9) Carotid artery stenosis PVD (peripheral vascular disease) Dyslipidemia Hypertension CAD (coronary artery disease) Diabetic retinopathy associated with type 2 diabetes mellitus Diabetic polyneuropathy associated with type 2 diabetes mellitus CKD stage 3 due to type 2 diabetes mellitus Diabetic 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 diabetes mellitus care home (current) use of insulin Surgical History Hx of shoulder surgery Hx of coronary artery bypass graft Hx of cataract removal with insertion of prosthetic lens Hx of tonsillectomy Hx of appendectomy Hx of arthroscopy of right knee Family History Family History Father Stomach cancer Mother Diabetes Brother Prostate abscess Social History Social History Household Members: Spouse Housing: Apartment Do you presently have visiting nurse or other home services: Yes Alcohol intake: never Patient Tobacco Use Status: Never used Tobacco Tobacco use type: Cigarette Cigarette Packs Per Day: 0.25 Cigarettes Per Day: 3 Years Smoked: 65 e-Cigarette/Vaping Use: Never Used Second Hand Smoke Exposure: Yes Advance Directives: Yes Advance Directives on File: Yes Advance Directives Date on File: 06/08/21 Do you have a plan to hurt others: No Plan service: No Current occupational status: 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 Cognitive needs: No Hearing needs: No Vision needs: No Physical Exam ED Vital Signs: Vital Signs - 24 hr 04/15/24 11:30 Temperature 97.3 F Pulse Rate 75 Respiratory Rate 16 Blood Pressure 145/55 H Pulse Oximetry 97 Oxygen Delivery Method Room Air BMI result Body Mass Index 25.8 General appearance calm comfortable no acute distress speaking full sentences no respiratory distress Eyes no redness or discharge Sinuses nontender not congested The pharynx is clear without redness swelling or exudate membranes are moist Neck is supple Chest is clear to auscultation bilateral with full symmetric equal breath sounds Heart no murmur Abdomen soft nontender Extremities no calf tenderness or edema, full range of motion x4 Skin no rash Neuro gait and balance are normal, interaction comprehension expression normal Course Course Course Narrative: RME, this is a rapid medical exam performed by Roosevelt Miller please refer to primary provider for complete H&P- 78-year-old male with past medical history significant for diabetes, aortic stenosis, CHF, coronary artery disease, chronic kidney disease, hyperlipidemia, GERD, cardiomyopathy presents for evaluation of weakness, cough for the last week. Plan for chest x-ray, EKG and labs as well as viral swabs EKG was normal sinus rhythm with a rate of 80, no acute ST elevations or acute ischemic changes Chest x-ray showed hyper aeration, mildly increased interstitial markings consistent with COPD no obvious pneumonia CBC showed a white count of 11, patient is well-appearing no tachycardia no hypotension doubt sepsis Creatinine is 1.5, patient has chronic renal insufficiency previous was 1.57, in December it was 1.52 so stable in that range Glucose is 220, she has known history of diabetes, most recent A1c is 9.1 from primary care BNP is 123 Well-appearing patient with likely bronchitis COPD is treated with Augmentin, he has no shortness of breath today so I did not start prednisone today and patient did not need respiratory treatment in the emergency room Medical Decision Making Lab Data MDM Lab Attestation statement: I reviewed the patient's lab results. 04/15/24 13:25 04/15/24 13:25 Labs: Lab Results 04/15/24 Range/Units 13:25 WBC 11.0 H (4.8-10.8) X10*3/uL RBC 3.79 L (4.60-5.80) X10*6/uL Hgb 12.3 L (14.0-18.0) g/dl Hct 35.6 L (42.0-52.0) % MCV 93.9 (80.0-98.0) fL MCH 32.5 (27.0-33.0) pg MCHC 34.6 (31.0-36.0) g/dl RDW 13.6 (11.0-16.0) % Plt Count 205 (160-400) X10*3/uL MPV 9.6 (9.4-12.4) fL Immature Gran % (Auto) 0.4 (0.0-0.4) % Neut % (Auto) 60.7 (45-73) % Lymph % (Auto) 26.6 (20-40) % Karn[place] % (Auto) 8.7 (2-11) % Eos % (Auto) 3.0 (0-4) % Baso % (Auto) 0.6 (0-2) % Lymph # (Auto) 2.9 (1.2-4.9) X10*3/uL [place] # (Auto) 1.0 (0.1-1.2) X10*3/uL Eos # (Auto) 0.3 (0.0-0.4) X10*3/uL Baso # (Auto) 0.1 (0.0-0.2) X10*3/uL Abs Immat Gran (auto) 0.04 H (0.00-0.03) X10*3/uL Absolute Neuts (auto) 6.7 (2.0-8.3) x10*3/uL Absolute Nucleated RBC 0.000 (0.0-0.012) X10*3/uL Nucleated RBC % (auto) 0.0 (0.0-0.2) /100WBC Sodium 143 (135-145) mmol/L Potassium 4.8 (3.3-5.1) mmol/L Chloride 109 H (96-108) mmol/L Carbon Dioxide 25 (22-29) mmol/L Anion Gap 14 (12-20) BUN 25 H (9-16) mg/dL Creatinine 1.50 H (0.5-1.4) mg/dL Estim Creat Clear Calc 39.9 Estimated GFR 45 Random Glucose 220 H (60-115) mg/dL Calcium 10.0 (8.4-10.2) mg/dL Total Bilirubin 0.4 (0.0-1.0) mg/dL AST 25 (5-37) U/L ALT 31 (0-40) U/L Alkaline Phosphatase 107 (39-117) U/L B-Natriuretic Peptide 123 H (<100) pg/mL Total Protein 8.0 (6.5-8.0) g/dL Albumin 4.1 (3.5-5.0) g/dL Lipase 31 (8-78) U/L Influenza Type A (PCR) NEGATIVE (Negative) Influenza Type B (PCR) NEGATIVE (Negative) RSV RNA Qual (PCR) NEGATIVE (Negative) SARS-CoV-2 RNA (RT-PCR) NEGATIVE (Negative) Discharge Plan Discharge Clinical Impression: Bronchitis Patient Disposition: Home, Self-Care Additional Instructions: Chest x-ray was showing signs of COPD no obvious pneumonia No acute findings on lab tests Vital signs were good No worrisome finding on physical exam I wrote for Augmentin antibiotic for bronchitis Follow with your doctor next week Return any time for difficulty breathing any worse condition or any concerns Prescriptions: New amoxicillin-pot clavulanate 875-125 mg tablet 1 tab PO Q12H 5 Days Qty: 10 0RF albuterol sulfate 90 mcg/actuation HFA aerosol inhaler 2 puff inhalation Q4-6H PRN (Reason: shortness of breath or wheezing) Qty: 8.5 0RF No Action (DME) hospital bed See Rx Instructions .Route .MEDSUPPLY Qty: 1 0RF Rx Instructions: As directed (DME) HOSPITAL BED See Rx Instructions .Route .MEDSUPPLY Qty: 1 0RF Rx Instructions: As directed (DME) diabetic shoe lift 1 inch See Rx Instructions .Route .MEDSUPPLY Qty: 1 0RF Rx Instructions: As directed (DME) diabetic shoes See Rx Instructions .Route .MEDSUPPLY Qty: 2 0RF Rx Instructions: As directed nicotine 14 mg/24 hr patch 24 hour 1 patch transdermal DAILY Qty: 28 0RF (DME) Dexcom G6 Customs Manager Misc See Rx Instructions .ROUTE .MEDSUPPLY Qty: 1 0RF Rx Instructions: As directed insulin degludec 100 unit/mL (3 mL) insulin pen 20 unit subcut BEDTIME Qty: 15 3RF insulin lispro [Humalog KwikPen Insulin] 100 unit/mL insulin pen 6 unit subcut TIDAC Qty: 15 3RF Rx Instructions: before meals as directed gabapentin 300 mg capsule 300 mg PO BEDTIME Qty: 90 2RF furosemide 40 mg tablet 40 mg PO DAILY Qty: 30 5RF Protocol: Hold for SBP< HOLD for SBP < : 90 (DME) Dexcom G6 Sensor Device See Rx Instructions .ROUTE .MEDSUPPLY Qty: 3 3RF Rx Instructions: As directed (DME) Dexcom G6 Transmitter Device See Rx Instructions .ROUTE .MEDSUPPLY Qty: 1 0RF Rx Instructions: As directed amlodipine 10 mg tablet 10 mg PO BEDTIME Qty: 90 0RF rosuvastatin 40 mg tablet 40 mg PO DAILY Qty: 90 0RF metoprolol succinate 25 mg tablet extended release 24 hr 25 mg PO DAILY Qty: 90 1RF clopidogrel [Plavix] 75 mg tablet 75 mg PO DAILY Qty: 90 1RF isosorbide mononitrate 30 mg tablet extended release 24 hr 30 mg PO DAILY Qty: 90 1RF acetaminophen [Tylenol Extra Strength] 500 mg tablet 500 mg PO Q6H PRN (Reason: pain or fever) Qty: 20 0RF dorzolamide-timolol 22.3-6.8 mg/mL drops 1 drp ophthalmic (eye) BID multivitamin Tablet 1 tab PO BEDTIME ascorbic acid (vitamin C) 500 mg tablet 500 mg PO BEDTIME PRN brimonidine 0.15 % drops 1 drp ophthalmic (eye) BID aspirin 81 mg tablet,delayed release (DR/EC) 81 mg PO BEDTIME Santyl 250 unit/gram ointment 1 appl topical DAILY (DME) FreeStyle Lite Strips Strip See Rx Instructions .ROUTE .MEDSUPPLY Qty: 150 11RF Rx Instructions: As directed four times a day (DME) 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 meter [FreeStyle [place] Lite] Kit See Rx Instructions .ROUTE .MEDSUPPLY Qty: 1 0RF Rx Instructions: As directed (DME) lancets [FreeStyle Lancets] 28 gauge misc See Rx Instructions .ROUTE .MEDSUPPLY Qty: 100 3RF Rx Instructions: As directed check BS QD silver sulfadiazine [Silvadene] 1 % cream 1 appl topical BID 30 Days Qty: 400 0RF Rx Instructions: apply a 1.5 mm thickness around ulcer (DME) pen needle, diabetic [BD Martina 2nd Gen Pen Needle] 32 gauge x 5/32 needle See Rx Instructions .MEDSUPPLY Qty: 400 4RF Rx Instructions: 5 times a day dulaglutide 3 mg/0.5 mL pen injector 3 mg subcut PONCE@0900 28 Days Qty: 2 3RF diclofenac sodium [Arthritis Pain (diclofenac)] 1 % gel 4 g topical QID Qty: 100 6RF Rx Instructions: apply to single knee, ankle, foot; for foot includes sole/toes/top of foot docusate sodium 100 mg capsule 200 mg PO DAILY PRN Print Language: Vietnamese
--- NOTE | 2024-04-15 11:34 | ECG_ITS ---
Test Reason : cough, dif breathing Blood Pressure : */* mmHG Vent. 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
[2024-04-15 13:28] LABS: MANUAL DIFF FLAG NO
[2024-04-15 13:32] LABS: Basophils Absolute Auto 0.1 X10*3/uL (0.0-0.2); Basophils Percent Auto 0.6 % (0-2); Eosinophils Absolute Auto 0.3 X10*3/uL (0.0-0.4); Hematocrit 35.6 % (42.0-52.0); Hemoglobin 12.3 g/dl (14.0-18.0); Imm Gran Abs Auto 0.04 X10*3/uL (0.00-0.03); Imm Gran Pct Auto 0.4 % (0.0-0.4); Lymphocytes Absolute Auto 2.9 X10*3/uL (1.2-4.9); Lymphocytes Percent Auto 26.6 % (20-40); Mean Corpuscular HGB Conc 34.6 g/dl (31.0-36.0); Mean Corpuscular Hemoglobin 32.5 pg (27.0-33.0); Mean Corpuscular Volume 93.9 fL (80.0-98.0); Mean Platelet Volume 9.6 fL (9.4-12.4); Monocytes Percent Auto 8.7 % (2-11); Neutrophils Absolute Auto 6.7 x10*3/uL (2.0-8.3); Neutrophils Percent Auto 60.7 % (45-73); Platelet Count 205 X10*3/uL (160-400); Red Blood Count 3.79 X10*6/uL (4.60-5.80); Red Cell Distribution Width 13.6 % (11.0-16.0)
[2024-04-15 13:51] LABS: B Type Natriuretic Peptide 123 pg/mL (<100)
[2024-04-15 13:55] LABS: Alanine Aminotransferase 31 U/L (0-40); Albumin Level 4.1 g/dL (3.5-5.0); Alkaline Phosphatase 107 U/L (39-117); Anion Gap 14 (12-20); Aspartate Amino Transferase 25 U/L (5-37); Bilirubin Total 0.4 mg/dL (0.0-1.0); Blood Urea Nitrogen 25 mg/dL (9-16); Carbon Dioxide 25 mmol/L (22-29); Chloride 109 mmol/L (96-108); Creatinine Clr Calc Pharmacy 39.9; Estimated Glomerular Filt Rate 45; Glucose Random 220 mg/dL (60-115); Lipase 31 U/L (8-78); Potassium 4.8 mmol/L (3.3-5.1); Sodium 143 mmol/L (135-145)
[2024-04-15 14:15] LABS: Influenza A PCR NEGATIVE (Negative); Influenza B PCR NEGATIVE (Negative); Resp Syncy Virus RNA Qual PCR NEGATIVE (Negative); SARS COV2 PCR INHOUSE NEGATIVE (Negative)
[2024-04-15] MEDS: Amoxicillin/Potassium Clav 875 MG TABLET PO (16:28)
[2024-04-15 16:31] VITALS: BP 145/55; PULSE 75; RESP 16; TEMP 36.3; O2SAT 97
== END 2024-04-15 16:32 | disposition home or self-care (01) ==
PROVIDERS: Physician Assistant; Emergency Provider Emergency Medicine; PCP Internal Medicine
DX: J40 Bronchitis, not specified as acute or chronic (principal); R05.9 Cough, unspecified; E11.22 Type 2 diabetes mellitus with diabetic chronic kidney disease; I13.0 Hypertensive heart and chronic kidney disease with heart failure and stage 1 through stage 4 chronic kidney disease, or unspecified chronic kidney disease; N18.30 Chronic kidney disease, stage 3 unspecified; I50.9 Heart failure, unspecified; Z03.818 Encounter for observation for suspected exposure to other biological agents ruled out; Z79.899 Other long term (current) drug therapy
CPT/HCPCS: 0241U; 71046; 80053; 83690; 83880; 85025; 93005; 99283

== ENCOUNTER → 2024-04-15 11:34 | Outpatient (BNV) | payer OTHER, SELFPAY | PROVIDERS: Emergency Provider Emergency Medicine; PCP Internal Medicine; Visit Provider Internal Medicine Cardiovascular Disease | DX: R94.31 Abnormal electrocardiogram [ECG] [EKG] (principal) | CPT/HCPCS: 93010 ==

== ENCOUNTER 2024-04-16 15:12 | Outpatient (AMB) | payer OTHER, SELFPAY ==
--- NOTE | 2024-04-16 15:15 | A.OFFPC_ITS ---
Intake Visit Reasons: Cold Symptoms Allergies amoxicillin [From Augmentin] Adverse Reaction (Intermediate, Verified 04/16/24 15:15) Nausea and Vomiting clavulanic acid [From Augmentin] Adverse Reaction (Intermediate, Verified 04/16/24 15:15) Nausea and Vomiting Tobacco use date assessed: 03/29/24 Fall risk assessment: No Falls in past year Last assessed Fall Risk: 04/16/24 Dental Screening Dental Screen Date: 03/29/24 HPI Cold Symptoms HPI Details The patient is a 78-year-old male presenting with acute bronchitis. The condition prompted a visit to the emergency department previously. It was determined that the patient had bronchitis at that time. Following the emergency visit, a specific medication was prescribed, which subsequently led to nausea and vomiting. The patient experienced vomiting four times, which was unusual for his medical history. The medication was identified as the cause, and it has since been recorded in the patient's medical chart as an allergy to avoid future prescriptions. As of the current visit, the patient was advised to maintain adequate hydration, and he received alternative medication for his bronchitis after discontinuing the previous one. There was also a discussion regarding smoking cessation, which the patient acknowledged, though he denied smoking in recent days. [facility] Medical History CHF (congestive heart failure) Aortic stenosis PAD (peripheral artery disease) Heel ulcer Tobacco abuse Impacted cerumen of both ears Epidermoid cyst of skin of cheek Mass of face Allergic rhinitis Trigger finger, right middle finger Fracture of distal end of left radius with routine healing Superficial abrasion Pneumonia due to COVID-19 virus Acute hypoxemic respiratory failure due to COVID-19 Distal radius fracture, right Renal insufficiency Trigger finger, right middle finger Respiratory tract infection Preoperative clearance Iliac artery stenosis, 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 History of renal calculi Compression fracture of L1 lumbar vertebra Infective endocarditis Glaucoma Left carotid stenosis GERD (gastroesophageal reflux disease) Pulmonary nodule Cardiomyopathy Congestive heart failure Overweight (BMI 25.0-29.9) Carotid artery stenosis PVD (peripheral vascular disease) Dyslipidemia Hypertension CAD (coronary artery disease) Diabetic retinopathy associated with type 2 diabetes mellitus Diabetic polyneuropathy associated with type 2 diabetes mellitus CKD stage 3 due to type 2 diabetes mellitus Diabetic 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 diabetes mellitus 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 Surgical History Hx of shoulder surgery Hx of coronary artery bypass graft Hx of cataract removal with insertion of prosthetic lens Hx of tonsillectomy Hx of appendectomy Hx of arthroscopy of right knee Family History Father Stomach cancer Mother Diabetes Brother Prostate abscess Social History Household Members: Spouse Housing: Apartment Do you presently have visiting nurse or other home services: Yes Alcohol intake: never Patient Tobacco Use Status: Never used Tobacco Tobacco use type: Cigarette Cigarette Packs Per Day: 0.25 Cigarettes Per Day: 3 Years Smoked: 65 e-Cigarette/Vaping Use: Never Used Second Hand Smoke Exposure: Yes Advance Directives Date on File: 06/08/21 service: No Current occupational status: 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 Cognitive needs: No Hearing needs: No Vision needs: No Questionnaire Thrive Questionnaire Date Thrive assessed: 03/29/24 THIERNO-7 AMB Questionnaire THIERNO-7 Date THIERNO - 7 assessed: 03/29/24 Source: Developed by Drs. Mendez Warren, Chelsea David, Kane Oakes and colleagues, with an educational charisse from [email or web address]. Physical exam (Primary Care) Tobacco/Smoking Status: Tobacco use Status Tobacco use date assessed 03/29/24 04/16/24 15:16 Patient Tobacco Use Status Never used Tobacco 04/16/24 15:16 Tobacco use type Cigarette 04/16/24 15:16 e-Cigarette/Vaping Use Never Used 04/16/24 15:16 Thrive Assessment: Date of Thrive Assessment Date Thrive assessed 03/29/24 04/16/24 15:16 Telehealth Telehealth Telehealth Platform: Telephone Location of provider rendering services: practice address Location of patient: address on file Patient Identification confirmed using: Name, : Yes Telehealth method: voice only [phone]) Patient verbally consented to treatment: Yes Patient verbally consented to billing insurance company: Yes Patient informed of any privacy concerns related to visit: Yes Minutes spent on Phone/Video with Pt.: 15 Coding Level of Care Code Tele Est Pt Level 3 (03617) Diagnoses Acute bronchitis J20.9 Assessment & Plan Assessment & Plan (1) Acute bronchitis: Code(s): J20.9 - Acute bronchitis, unspecified Category: Medical Plan: changed med s , Plan - Discontinue the offending medication for bronchitis due to adverse gastr ointestinal effects. - Document the medication in the patient's chart as an allergy to prevent future administration. - Ensure adequate fluid intake to address potential dehydration from vomiting. - Encourage continued smoking cessation to aid respiratory health. During the visit, we discussed the patient's bronchitis diagnosis and the adverse reaction he experienced with the prescribed medication. I advised discontinuing this medication due to its side effects of nausea and vomiting, and recorded it as an allergy to ensure it is not prescribed again in the future. We addressed the importance of hydration in the context of vomiting and emphasized the need for smoking cessation, given the patient's respiratory condition. Follow-up care and monitoring of symptoms were also highlighted. - Stop taking the medication that caused nausea and vomiting. - Drink plenty of fluids to stay hydrated. - Continue refraining from smoking to improve lung health. - Monitor symptoms, and if vomiting persists or worsens, seek medical attention. - Use a mask around household members if experiencing respiratory symptoms to prevent potential spread of illness. Medications: Discontinued amoxicillin-pot clavulanate 875-125 mg Discontinued Reason: Patient Refused 1 tab PO Q12H 5 days 10 tabs 0RF
--- OUTSIDE RECORDS SUMMARY | 2024-04-16 16:19 | XMS_ITS | Clinical Summary ---
Author Organization [facility] Address [address] [place] [address] Phone Care Team Providers Care Hot Dipper Name Role Phone Marcia Clements MD Primary Care Provider [phone] Allergies No known active allergies Medications adalimumab (Humira) 40 MG/0.8ML Prefilled Syringe Kit Comments: Patient Notes: EVERY 2 WEEKS Active amLODIPine (NORVASC) 10 MG tablet Take 1 tablet by mouth 1 (one) time each day Active aspirin 81 MG chewable tablet Chew 1 tablet 1 (one) time each day Active atorvastatin (LIPITOR) 80 MG tablet Take 1 tablet by mouth 1 (one) time each day Active Dulaglutide (Trulicity) 1.5 MG/0.5ML solution pen-injector Inject under the skin 1 (one) time per week Active ergocalciferol (VITAMIN D-2) 1.25 MG (46402 UT) capsule Take 1 capsule by mouth 1 (one) time per week Active fluocinonide (LIDEX) 0.05 % cream Active hydroCHLOROthia zide (HYDRODIURIL) 12.5 MG tablet Take 1 tablet by mouth 1 (one) time each day Active insulin aspart (NovoLOG FLEXPEN) 100 UNIT/ML injection Active insulin degludec (Tresiba FlexTouch) 100 UNIT/ML injection Active nitroglycerin (NITROSTAT) 0.4 MG SL tablet as needed Active metoprolol succinate XL (TOPROL-XL) 25 MG 24 hr tablet Take 25 mg by mouth 1 (one) time each day 1 Active latanoprost (XALATAN) 0.005 % ophthalmic solution Administer 1 drop into both eyes at bed time 1 Active rosuvastatin (CRESTOR) 5 MG tablet Take 5 mg by mouth 1 (one) time each day 1 Active losartan (Cozaar) 25 MG tablet Take 1 tablet (25 mg total) by mouth 1 (one) time each day 30 tablet 11 1 Active Acetaminophen Extra Strength 500 MG tablet TAKE 1 TABLET BY MOUTH EVERY 6 HOURS PTN FOR PAIN OR FEVER 1 Active albuterol HFA (PROVENTIL HFA;VENTOLIN HFA) 108 (90 Base) MCG/ACT inhaler INHALE 2 PUFFS BY MOUTH EVERY 4 TO 6 HOURS NEEDED FOR WHEEZING 1 Active aspirin (ST AMOR) 81 MG EC tablet Take 81 mg by mouth 1 (one) time each day 1 Active brimonidine (ALPHAGAN) 0.2 % ophthalmic solution INSTILL 1 DROP IN BOTH EYES TWICE DAILY 1 Active dorzolamide-raven olol (COSOPT) 22.3-6.8 MG/ML ophthalmic solution 1 Active fluticasone (FLONASE) 50 MCG/ACT nasal spray SHAKE LIQUID AND USE 2 SPRAYS IN EACH NOSTRIL DAILY 1 Active gabapentin (NEURONTIN) 300 MG capsule Take 300 mg by mouth at bed time 1 Active Virtussin AC w/ALC 100-10 MG/5ML liquid TAKE 10 ML BY MOUTH EVERY 6 HOURS NEEDED FOR COUGH 1 Active HumaLOG KWIKPEN 100 UNIT/ML solution pen-injector INJECT 5-7 UNITS UNDER THE SKIN THREE TIMES DAILY BEFORE MEALS 1 Active predniSONE (DELTASONE) 20 MG tablet Take 40 mg by mouth 1 (one) time each day 1 Active Active Problems Problem Noted Date Diagnosed Date Chronic kidney disease stage 3 05/25/2020 Hypertensive disorder 05/25/2020 Renal disorder due to type 2 diabetes mellitus 0 05/25/2020 Family History Medical History Relation Comments Diabetes Child Cancer Father Diabetes Mother Heart disease Mother Hypertension Mother Cancer Sibling bones Relation Status Comments Child Father Mother Sibling Social History Tobacco Use Types Packs/Day Years Used Date Smoking Tobacco: Every Day Cigarettes Alcohol Use Standard Drinks/Week Comments No 0 (1 standard drink = 0.6 oz pur e alcohol) Sex and Gender Information Value Date Recorded Sex Assigned at Not on file Legal Sex Male 4:53 PM EST Gender Identity Not on file Sexual Orientation Not on file Last Filed Vital Signs Vital Sign Reading Time Taken Comments Blood Pressure 134/60 08/04/2020 3:31 PM EDT Pulse 78 08/04/2020 3:31 PM EDT Temperature - - Respiratory Rate - - Oxygen Saturation 98% 08/04/2020 3:31 PM EDT Inhaled Oxygen Concentration - - Weight 117 kg (258 lb) 08/04/2020 3:31 PM EDT Height 170.2 cm (5' 7 ) 08/06/2018 12:00 PM EDT Body Mass Index 40.41 08/06/2018 12:00 PM EDT Plan of Treatment Health Maintenance Due Date Last Done Comments Pneumococcal Vaccine: 65+ Ye ars (1 of 2 - PCV) 1951 Diabetes: Hemoglobin A1C 04/23/2020 Diabetes: Ophthalmology Exam 04/23/2020 Diabetes: Pedal Pulse Checked 04/23/2020 Diabetes: Sensory Foot Exam 04/23/2020 Diabetes: Visual Foot Exam 04/23/2020 Influenza Vaccine (#1) 2023 Hepatitis B Vaccine Aged Out No longe r eligible based on patient's age to complete this topic Insurance MEDICARE MEDICARE Care Teams Hot Dipper Relationship Specialty Start Date End Date Marcia Clements MD [address] [place], [place] PCP - General 04/03/20
--- OUTSIDE RECORDS SUMMARY | 2024-04-16 16:19 | XMS_ITS | Clinical Summary ---
Author Organization [facility] Address [address] [place] [address] Care Team Providers Care Legal Process Specialist Name Role Phone Unavailable Primary Care Provider Unavailabl e Allergies No known active allergies Medications Medication Sig Dispensed Refills Start Date End Date Status ondansetron (ZOFRAN-ODT) 4 MG disintegrating tablet Take 1 tablet (4 mg total) by mouth 3 times daily (every 8 hours) as needed for nausea or vomiting. Place tablet on tongue to dissolve. 10 tablet 01/07/2019 Active Social History Tobacco Use Types Packs/Day Years Used Date Smoking Tobacco: Never Assessed Sex and Gender Information Value Date Recorded Sex Assigned at Not on file Gender Identity Not on file Sexual Orientation Not on file Last Filed Vital Signs Vital Sign Reading Time Taken Comments Blood Pressure 148/67 01/07/2019 11:01 AM EDT Pulse 79 01/07/2019 11:01 AM EDT Temperature 37.1 ??C (98.7 ??F) 01/07/2019 10:57 AM E DT Respiratory Rate 18 01/07/2019 11:01 AM EDT Oxygen Saturation 94% 01/07/2019 11:01 AM EDT Inhaled Oxygen Concentration - - Weight - - Height - - Body Mass Index - - Plan of Treatment Health Maintenance Due Date Last Done Comments Hepatitis C Virus Screening 1945 DTaP/Tdap/Td Vaccines (1 - Tdap) 07/21/1963 Pneumococcal Vaccines 50+ (1 of 1 - PCV) 1994 Zoster (Shingles) Vaccine (1 of 2) 1994 RSV Vaccine 60 years and old er and Patients (1 - 1-dose 75+ series) 07/21/2019 Influenza Vaccine 10/23/2023 COVID-19 Vaccine ( - 2023-2 5 season) 2023 Hepatitis B Vaccines Aged Out No long er eligible based on patient's age to complete this topic
--- OUTSIDE RECORDS SUMMARY | 2024-04-16 16:19 | XMS_ITS ---
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 - ICD-10-CM) ACTIVE 12/20/2022 TYPE 2 DIABETES MELLITUS WIT H DIABETIC CHRONIC KIDNEY DISEASE (E11.22 - ICD-10-CM) ACTIVE 12/20/2022 CHRONIC KIDNEY DISEASE, STAG E 3 UNSPECIFIED (N18.30 - ICD-10-CM) ACTIVE 12/20/2022 ATHEROSCLEROTIC HEART DISEAS E OF [place] CORONARY ARTERY WITHOUT ANGINA PECTORIS (I25.10 - ICD-10-CM) ACTIVE 12/20/2022 ESSENTIAL (PRIMARY) HYPERTENSION (I10 - ICD-10-CM) ACT JIAN 12/20/2022 UNSPECIFIED SYSTOLIC (CONGES TIVE) HEART FAILURE (I50.20 - ICD-10-CM) ACTIVE 12/20/2022 GASTRO-ESOPHAGEAL REFLUX DIS EASE WITHOUT ESOPHAGITIS (K21.9 - ICD-10-CM) ACTIVE 12/20/2022 INTERMEDIATE (CURRENT) USE OF INSULIN (Z79.4 - ICD-10-CM) ACTIVE 12/20/2022 Encounters Encounter Performer Performer Role Encounter Diagnoses Location Date Discharge - Discharged to home or self care - [facility] 12/20/2022 04:45 pm EDT - 01/13/2023 01:15 pm EDT Immunizations Vaccine Date TB 1 Step Mantoux (PPD) 12/25/2022 07:38 am EDT PCV (Prevnar) 13 04/17/2015 12:00 am EST Pneumovax Dose 3 -if indicated 9 12:00 am EDT COVID-19 Vaccine Dose 1 06/08/2020 12:00 am EDT COVID-19 Vaccine Dose 2 06/29/2020 12:00 am EDT COVID-19 Vaccine Additional Dose/Booster 03/14/2021 12:00 am EST PCV (Prevnar) 20 12/30/2022 05:00 am EDT Flu Vaccine Prior To Admission (historic al only) 01/12/2022 12:00 am EDT Influenza Fluzone High Dose 0.7ML dose ( CVX 197) 12/25/2022 02:00 pm EDT Social History
--- OUTSIDE RECORDS SUMMARY | 2024-04-16 16:19 | XMS_ITS | Clinical Summary ---
Author Organization [facility] Address [address] [place] [address] Care Team Providers Care Bus Van Driver Name Role Phone Marcia Clements MD Primary Care Provider [phone] Social History Tobacco Use Types Packs/Day Years Used Date Smoking Tobacco: Never Assessed Sex and Gender Information Value Date Recorded Sex Assigned at Not on file Gender Identity Not on file Sexual Orientation Not on file Plan of Treatment Health Maintenance Due Date Last Done Comments Hepatitis C Screening 1945 COVID-19 Vaccine (#1) 01/19/1945 Depression Screening 1956 Preventative Health Evaluation 1962 DTap / Tdap / Td (1 - Tdap) 07/21/1963 Shingrix-Zoster Vaccine (1 of 2) 1994 Fall Risk Assessment 2009 Pneumococcal Vaccine (1 of 1 - PCV) 2009 RSV Adult > 60+ Yrs or Pregn ant (1 - 1-dose 75+ series) 07/21/2019 Influenza Vaccine (#1) 2023 Hepatitis B Vaccines Aged Out No long er eligible based on patient's age to complete this topic RSV Ped < 20 months Aged Out No longe r eligible based on patient's age to complete this topic Care Teams Bus Van Driver Relationship Specialty Start Date End Date Marcia Clements MD [address] [place] [address] [address] [facility] [place] [address] PCP - General Internal Medicine 06/01/20
== END 2024-04-16 15:41 | disposition home or self-care (01) ==
LOC: HO.HMCH 15:12
PROVIDERS: PCP Internal Medicine; Visit Provider Internal Medicine
DX: J20.9 Acute bronchitis, unspecified (principal)

== ENCOUNTER → 2024-04-16 15:12 | Outpatient (BNVA) | payer OTHER, SELFPAY | PROVIDERS: PCP Internal Medicine; Visit Provider Internal Medicine ==

== ENCOUNTER 2024-04-28 14:13 | Outpatient (REF) | payer MEDICARE, MEDICAID, SELFPAY ==
--- NOTE | ~2024-04-28 | US_ITS ---
CLINICAL HISTORY: R22.1 - Localized swelling, mass and lump, neck US right submandibular gland/neck Comparison: None Findings: There are no abnormal masses or fluid collections and no pathological appearing lymph nodes in the area of the right mandibular gland. Impression: 1. No sonographic correlate for patient's neck mass. Clinically appropriate follow-up recommended. This document has been electronically signed by: Shiv Olmedo MD on 05/01/2024 09:03:23
--- NOTE | ~2024-04-28 | US_ITS ---
EXAMINATION: US NONINVASIVE ASSESSMENT OF THE BOTH LOWER EXTREMITY WITH ARTERIAL DUPLEX AND ANKLE BRACHIAL INDICES (ABIS) CLINICAL INFORMATION: Peripheral vascular disease. COMPARISON: None available. TECHNIQUE: Duplex Doppler techniques with waveform analysis and measurement of velocities in the common femoral, profunda femoris, superficial femoral, popliteal and tibial arteries were performed. In addition, ankle pulse volume recordings, ankle pressure measurements and ankle brachial indices were obtained of the both lower extremity arterial system. The study was performed only at rest. FINDINGS: NONINVASIVE ASSESSMENT OF THE ARTERIES OF BILATERAL LOWER EXTREMITIES WITH ABIs: RIGHT LEG: Ankle-brachial index: 1.28 Ankle PVR: Abnormal waveforms. LEFT LEG: Ankle-brachial index: 1.31 Left ankle PVR: Abnormal waveforms. STAR Reference: 0.9 - 1.4 = normal - no significant arterial disease 0.7 - 0.89 = mild peripheral arterial disease 0.51 - 0.69 = moderate peripheral arterial disease 0.50 = severe peripheral arterial disease RIGHT LOWER EXTREMITY DUPLEX ULTRASOUND: Common femoral artery: 179 cm/s. Biphasic waveforms. Profunda femoris artery: 161 cm/s. Biphasic waveforms. Superficial femoral artery (proximal): 205 cm/s. Biphasic waveform. Superficial femoral artery (mid): 188 cm/s. Biphasic waveforms. Superficial femoral artery (distal): 124 cm/s. Biphasic waveforms. There is a stent in the distal segment with normal patency. Peak systolic velocity range: 62-124 cm/s with biphasic waveforms. Popliteal artery: 83 cm/s Monophasic waveform. Spectral broadening. Posterior tibial artery: 57 cm/s Monophasic waveform with spectral broadening. Peroneal artery: 54 cm/s. Monophasic waveform. Spectral broadening. Anterior tibialis artery: 36 cm/s. Monophasic waveform. Spectral broadening. LEFT LOWER EXTREMITY DUPLEX ULTRASOUND: Common femoral artery: 180 cm/s. Biphasic waveform. Profunda femoris artery: 148 cm/s. Biphasic waveform. Superficial femoral artery (proximal): 143 cm/s. Biphasic waveform. Superficial femoral artery (mid): 149 cm/s. Biphasic waveform. Superficial femoral artery (distal): 250 cm/s. Biphasic waveform with spectral broadening. There is a stent with normal patency. Peak systolic velocity range: 140-230 cm/s. Popliteal artery: 74 cm/s Biphasic waveform. Spectral broadening. Posterior tibial artery: 66 cm/s Monophasic waveform. Spectral broadening. Peroneal artery: 69 cm/s. Monophasic waveform. Spectral broadening. Anterior tibialis artery: 25 cm/s. Monophasic waveform. US/US arterial duplex BI w/ STAR IMPRESSION: Severe inflow disease below the knee both lower extremities. Patent stents. Moderate inflow disease from the common femoral artery to distal superficial femoral artery both lower extremities. Electronically signed by: Liban Nj MD 04/29/2024 10:12 AM ALXMI
--- OUTSIDE RECORDS SUMMARY | 2024-04-28 15:25 | XMS_ITS | Clinical Summary ---
Author Organization [facility] Address [address] [place] [address] Care Team Providers Care Forensic Nurse Name Role Phone Unavailable Primary Care Provider [...]
--- OUTSIDE RECORDS SUMMARY | 2024-04-28 15:26 | XMS_ITS | Clinical Summary ---
Author Organization [facility] Address [address] [place] [address] Care Team Providers Care Enterprise Records Analyst Name Role Phone Marcia Clements MD Primary Care Provider [phone] Social History Tobacco Use Types Packs/Day Years [...] age to complete this topic Care Teams Enterprise Records Analyst Relationship Specialty Start Date End Date Marcia Clements MD [address] [place] [address] [address] [facility] [place] [address] PCP - General Internal Medicine 06/01/20
--- OUTSIDE RECORDS SUMMARY | 2024-04-28 15:26 | XMS_ITS | Clinical Summary ---
Author Organization [facility] Address [address] [place] [address] Phone Care Team Providers Care Weatherization Administrator Name Role Phone Marcia Clements MD Primary Care Provider [phone] Allergies No known active allergies Medications adalimumab [...] week Active ergocalciferol (VITAMIN D-2) 1.25 MG (50407 UT) capsule Take 1 capsule by mouth [...] this topic Insurance MEDICARE MEDICARE Care Teams Weatherization Administrator Relationship Specialty Start Date End Date Marcia Clements MD [address] [place], [place] PCP - General 04/03/20
== END 2024-04-28 14:14 | disposition home or self-care (01) ==
LOC: HO.US 14:13
PROVIDERS: PCP Internal Medicine; Visit Provider Surgery Vascular Surgery
DX: R22.1 Localized swelling, mass and lump, neck (principal); I73.9 Peripheral vascular disease, unspecified
CPT/HCPCS: 76536; 93922; 93925

== ENCOUNTER → 2024-04-28 14:15 | Outpatient (BNV) | payer MEDICARE, MEDICAID, SELFPAY | PROVIDERS: PCP Internal Medicine; Visit Provider Radiology Diagnostic Radiology | DX: R22.1 Localized swelling, mass and lump, neck (principal) | CPT/HCPCS: 76536; 93922; 93925 ==

== ENCOUNTER 2024-05-25 11:38 | Outpatient (AMB) | payer OTHER, SELFPAY ==
--- NOTE | 2024-05-25 11:38 | HO.NEPHOV_ITS ---
Vital Signs 05/25/24 11:39 Weight 195 lb BP 128/58 L Blood Pressure Location Lt brachial Position Sitting Pulse 69 Pulse Source Pulse Oximeter Pulse Oximetry (%) 96 Oxygen Delivery Method Room Air Intake Visit Reasons: Ckd/ Conf [place] Guide Required: No Accompanied by: Spouse Allergies amoxicillin [From Augmentin] Adverse Reaction (Intermediate, Verified 05/25/24 11:41) Nausea and Vomiting clavulanic acid [From Augmentin] Adverse Reaction (Intermediate, Verified 05/25/24 11:41) Nausea and Vomiting Medication List - Last Reconciled 05/25/24 by Channing Trevino MD acetaminophen (Tylenol Extra Strength) 500 mg PO Q6H PRN albuterol sulfate 90 mcg/actuation 2 puffs inhalation Q4-6H PRN amlodipine 10 mg PO BEDTIME ascorbic acid (vitamin C) 500 mg PO BEDTIME PRN aspirin 81 mg PO BEDTIME azithromycin (Zithromax) For 250 mg dose pack: take 500 mg today (day 1), then 250 mg for 4 days (days 2-5) PO blood sugar diagnostic (FreeStyle Lite Strips) As directed four times a day 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 meter (FreeStyle [place] Lite kit) As directed 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 meter,continuous (Dexcom G6 Termite Treater) As directed 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 sensor (Dexcom G6 Sensor device) As directed 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 transmitter (Dexcom G6 Transmitter device) As directed brimonidine 0.15% 1 drp ophthalmic (eye) BID clopidogrel (Plavix) 75 mg PO DAILY collagenase clostridium histo. (Santyl) 1 appl topical DAILY [diabetic shoe lift As directed] [diabetic shoes As directed] diclofenac sodium 1% (Arthritis Pain (diclofenac)) 4 grams topical QID docusate sodium 200 mg PO DAILY PRN dorzolamide-timolol 22.3-6.8 mg/mL 1 drp ophthalmic (eye) BID dulaglutide 3 mg (0.5 mL) subcut PONCE@0900 4 weeks furosemide 40 mg See Protocol PO DAILY gabapentin 300 mg PO BEDTIME [hospital bed As directed] [HOSPITAL BED As directed] insulin degludec 20 units (0.2 mL) subcut BEDTIME insulin lispro (Humalog KwikPen (U-100) Insulin) 6 units (0.06 mL) subcut TIDAC isosorbide mononitrate ER 30 mg PO DAILY lancets (FreeStyle Lancets) As directed check BS QD metoprolol succinate ER 25 mg PO DAILY multivitamin 1 tab PO BEDTIME nicotine 1 patch transdermal DAILY pen needle, diabetic (BD Martina 2nd Gen Pen Needle) 5 times a day rosuvastatin 40 mg PO DAILY silver sulfadiazine 1% (Silvadene) 1 appl topical BID 30 days HPI Comments Details: 78-year-old male with a history of insulin-dependent diabetes mellitus with neuropathy, congestive heart failure with preserved ejection fraction, gastroesophageal reflux disease, coronary artery disease, essential hypertension who presented to the emergency department for evaluation after a fall. Sustained hip fracture. Baseline creatinine is around 1.3-1.4 mg/dL. He underwent hip surgery on 12/10/2022. Creatinine has bumped up to 1.7 mg/dL and he was seen in consultation during hospitalization for DEAN He is here for follow up today Accompanied by family Seen by cardiology recently [facility] Medical History CHF (congestive heart failure) Aortic stenosis PAD (peripheral artery disease) Heel ulcer Tobacco abuse Impacted cerumen of both ears Epidermoid cyst of skin of cheek Mass of face Allergic rhinitis Trigger finger, right middle finger Fracture of distal end of left radius with routine healing Superficial abrasion Pneumonia due to COVID-19 virus Acute hypoxemic respiratory failure due to COVID-19 Distal radius fracture, right Renal insufficiency Trigger finger, right middle finger Respiratory tract infection Preoperative clearance Iliac artery stenosis, 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 History of renal calculi Compression fracture of L1 lumbar vertebra Infective endocarditis Glaucoma Left carotid stenosis GERD (gastroesophageal reflux disease) Pulmonary nodule Cardiomyopathy Congestive heart failure Overweight (BMI 25.0-29.9) Carotid artery stenosis PVD (peripheral vascular disease) Dyslipidemia Hypertension CAD (coronary artery disease) Diabetic retinopathy associated with type 2 diabetes mellitus Diabetic polyneuropathy associated with type 2 diabetes mellitus CKD stage 3 due to type 2 diabetes mellitus Diabetic 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 diabetes mellitus FDC (current) use of insulin Surgical History Hx of shoulder surgery Hx of coronary artery bypass graft Hx of cataract removal with insertion of prosthetic lens Hx of tonsillectomy Hx of appendectomy Hx of arthroscopy of right knee Family History Father Stomach cancer Mother Diabetes Brother Prostate abscess Social History Household Members: Spouse Housing: Apartment Do you presently have visiting nurse or other home services: Yes Alcohol intake: never Patient Tobacco Use Status: Never used Tobacco Tobacco use type: Cigarette Cigarette Packs Per Day: 0.25 Cigarettes Per Day: 3 Years Smoked: 65 e-Cigarette/Vaping Use: Never Used Second Hand Smoke Exposure: Yes Advance Directives Date on File: 06/08/21 service: No Current occupational status: 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 Cognitive needs: No Hearing needs: No Vision needs: No Physical Exam Vital Signs: Last Vital Signs Pulse 69 05/25/24 11:39 BP 128/58 L 05/25/24 11:39 Pulse Ox 96 05/25/24 11:39 Oxygen Delivery Method Room Air 05/25/24 11:39 Const General: comfortable; No acute distress Orientation/consciousness: patient oriented x3 Eyes General: appearance normal, both eyes and all related structures Visual El: normal visual el by confrontation Neck Neck: Yes supple and Yes no JVD Resp Effort & Inspection: normal respiratory effort and respiratory effort not decreased Auscultation: rhonchi Cardio Palpation: no palpable S3 and no palpable S4 Heart sounds: no rubs GI Inspection: Yes normal to inspection Palpation (GI): Soft to palpation Percussion: Yes normal to percussion Auscultation: normal bowel sounds General: Yes no CVA tenderness Back/Spine/Pelvis Back: no CVA tenderness Skin General skin exam: no petechiae and no purpura Neuro General: patient oriented x3 and no focal motor deficits Extrem General: No clubbing and No edema Results Reviewed Nephrology Results: Hgb 12.3 g/dl (14.0-18.0) L 04/15/24 WBC 11.0 X10*3/uL (4.8-10.8) H 04/15/24 Plt Count 205 X10*3/uL (160-400) 04/15/24 Sodium 143 mmol/L (135-145) 04/15/24 Potassium 4.8 mmol/L (3.3-5.1) 04/15/24 Chloride 109 mmol/L (96-108) H 04/15/24 Carbon Dioxide 25 mmol/L (22-29) 04/15/24 BUN 25 mg/dL (9-16) H 04/15/24 Creatinine 1.50 mg/dL (0.5-1.4) H 04/15/24 Calcium 10.0 mg/dL (8.4-10.2) 04/15/24 Assessment & Plan Assessment & Plan (1) CKD stage 3 due to type 2 diabetes mellitus: Code(s): E11.22 - Type 2 diabetes mellitus with diabetic chronic kidney disease; N18.30 - Chronic kidney disease, stage 3 unspecified Category: Medical (2) CHF (congestive heart failure): Comment: Diastolic Code(s): I50.9 - Heart failure, unspecified Category: Medical Qualifiers: Heart failure chronicity: acute on chronic Heart failure type: unspecified Qualified Code(s): I50.9 - Heart failure, unspecified Plan 78-year-old man with chronic kidney disease in the setting of longstanding diabetes mellitus congestive heart failure. He is sustained acute kidney injury most likely due to hypoperfusion. REnal function has improved - close to baseline Recommendation Keep current dose of Lasix Encouraged him to stand low-sodium diet Continue to avoid nephrotoxic agents. Watch for anemia Maintain BP < 130/80 and A1C < 7% No changes were made today Orders: Orders Basic Metabolic Panel 4 Months E11.22 - Type 2 diabetes mellitus with diabetic chronic kidney disease, N18.30 - Chronic kidney disease, stage 3 unspecified Coding Level of Care Code Est Pt Level 4 (81362) Diagnoses CKD stage 3 due to type 2 diabetes mellitus E11.22; N18.30 CHF (congestive heart failure) I50.9 Heart failure chronicity: acute on chronic Heart failure type: unspecified
[2024-05-25 11:39] VITALS: BP 128/58; PULSE 69; O2SAT 96
--- OUTSIDE RECORDS SUMMARY | 2024-05-25 14:48 | XMS_ITS | Clinical Summary ---
Author Organization [facility] Address [address] [place] [address] Phone Care Team Providers Care Florist Designer Name Role Phone Marcia Clements MD Primary Care Provider [phone] Allergies No known active allergies Medications adalimumab [...] week Active ergocalciferol (VITAMIN D-2) 1.25 MG (04395 UT) capsule Take 1 capsule by mouth [...] this topic Insurance MEDICARE MEDICARE Care Teams Florist Designer Relationship Specialty Start Date End Date Marcia Clements MD [address] [place], [place] PCP - General 04/03/20
--- OUTSIDE RECORDS SUMMARY | 2024-05-25 14:48 | XMS_ITS | Clinical Summary ---
Author Organization [facility] Address [address] [place] [address] Care Team Providers Care Baseball Inspector Name Role Phone Unavailable Primary Care Provider [...]
--- OUTSIDE RECORDS SUMMARY | 2024-05-25 14:48 | XMS_ITS | Clinical Summary ---
Author Organization [facility] Address [address] [place] [address] Care Team Providers Care Automation Manager Name Role Phone Marcia Clements MD Primary Care Provider [phone] Social History Tobacco Use Types Packs/Day Years [...] age to complete this topic Care Teams Automation Manager Relationship Specialty Start Date End Date Marcia Clements MD [address] [place] [address] [address] [facility] [place] [address] PCP - General Internal Medicine 06/01/20
== END 2024-05-25 11:57 | disposition home or self-care (01) ==
PROVIDERS: PCP Internal Medicine; Visit Provider Internal Medicine Hypertension Specialist
DX: E11.22 Type 2 diabetes mellitus with diabetic chronic kidney disease (principal); N18.30 Chronic kidney disease, stage 3 unspecified; I50.9 Heart failure, unspecified
CPT/HCPCS: 99214

== ENCOUNTER → 2024-05-25 11:38 | Outpatient (BNVA) | payer OTHER, SELFPAY | PROVIDERS: PCP Internal Medicine; Visit Provider Internal Medicine Hypertension Specialist | DX: E11.22 Type 2 diabetes mellitus with diabetic chronic kidney disease (principal); N18.30 Chronic kidney disease, stage 3 unspecified; I50.9 Heart failure, unspecified | CPT/HCPCS: 99212 ==

== ENCOUNTER 2024-05-27 09:46 | Outpatient (AMB) | payer MEDICARE, MEDICAID, SELFPAY ==
--- NOTE | 2024-05-27 09:54 | MHC.OFFVIS ---
Intake Visit Reasons: 6m follow up s/p Arterial US 04/28/24 Intake Note: Patient presents for follow up arterial US. No complaints. Accompanied by: Self / Same As Patient Allergies amoxicillin [From Augmentin] Adverse Reaction (Intermediate, Verified 05/27/24 09:55) Nausea and Vomiting clavulanic acid [From Augmentin] Adverse Reaction (Intermediate, Verified 05/27/24 09:55) Nausea and Vomiting HPI HPI 6m follow up s/p Arterial US 04/28/24: Details: The patient is a 78-year-old male presenting with routine surveillance follow-up for peripheral vascular disease. His vascular history includes a right SFA plasty executed in early 2023, preceded by an SFA atherectomy and stenting two years prior, as well as bilateral iliac stenting in 2019. His recent STAR results revealed satisfactory limb perfusion He expressed satisfaction with his lower limb functionality but detailed a recent right hip fracture that caused a leg length discrepancy treated surgically. His overall functional status in ambulation remains positive. Now for follow-up with noninvasive testing [facility] Medical History CHF (congestive heart failure) Aortic stenosis PAD (peripheral artery disease) Heel ulcer Tobacco abuse Impacted cerumen of both ears Epidermoid cyst of skin of cheek Mass of face Allergic rhinitis Trigger finger, right middle finger Fracture of distal end of left radius with routine healing Superficial abrasion Pneumonia due to COVID-19 virus Acute hypoxemic respiratory failure due to COVID-19 Distal radius fracture, right Renal insufficiency Trigger finger, right middle finger Respiratory tract infection Preoperative clearance Iliac artery stenosis, 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 History of renal calculi Compression fracture of L1 lumbar vertebra Infective endocarditis Glaucoma Left carotid stenosis GERD (gastroesophageal reflux disease) Pulmonary nodule Cardiomyopathy Congestive heart failure Overweight (BMI 25.0-29.9) Carotid artery stenosis PVD (peripheral vascular disease) Dyslipidemia Hypertension CAD (coronary artery disease) Diabetic retinopathy associated with type 2 diabetes mellitus Diabetic polyneuropathy associated with type 2 diabetes mellitus CKD stage 3 due to type 2 diabetes mellitus Diabetic 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 diabetes mellitus half-way (current) use of insulin Surgical History Hx of shoulder surgery Hx of coronary artery bypass graft Hx of cataract removal with insertion of prosthetic lens Hx of tonsillectomy Hx of appendectomy Hx of arthroscopy of right knee Family History Father Stomach cancer Mother Diabetes Brother Prostate abscess Social History Household Members: Spouse Housing: Apartment Do you presently have visiting nurse or other home services: Yes Alcohol intake: never Patient Tobacco Use Status: Never used Tobacco Tobacco use type: Cigarette Cigarette Packs Per Day: 0.25 Cigarettes Per Day: 3 Years Smoked: 65 e-Cigarette/Vaping Use: Never Used Second Hand Smoke Exposure: Yes Advance Directives Date on File: 06/08/21 service: No Current occupational status: 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 Cognitive needs: No Hearing needs: No Vision needs: No Review of Systems Const All systems reviewed & are unremarkable except as noted in HPI and below Reports no additional complaints ENT Reports Normal hearing present Card Denies chest pain, Denies chest pain at rest, Denies chest pain with activity and Denies pedal edema Resp Denies cough GI Denies abdominal pain Musc Denies abnormal gait, Denies muscle cramps and Denies radiating pain into limb Skin/Breast Denies skin ulcer and Denies wounds Neuro Reports Normal hearing present and Denies abnormal gait Psych Reports no additional complaints Physical Exam Const General: cooperative, healthy appearing and comfortable Orientation/consciousness: oriented to person, oriented to place and oriented to time HEENT Head: Yes normal to inspection Neck Neck: Yes normal visual inspection Carotids: no bruits Chest Chest palpation & inspection: normal inspection of the chest Resp Effort & Inspection: normal respiratory effort and able to speak in complete sentences Auscultation: clear to auscultation bilaterally, no crackles, no rales, no rhonchi and no wheezes Cardio Other: Bilateral DP signals Rate: regular rate Rhythm: regular rhythm Heart sounds: S1 normal heart sound present and S2 normal heart sound present Bruits: no carotid bruits GI Inspection: Yes normal to inspection Skin Wounds: no wounds Hair: normal Neuro General: oriented to person, oriented to place and oriented to time Cranial nerves: Yes CN's II-XII intact bilaterally and Yes Normal hearing present Cognition (Neuro): normal cognition Motor exam (neuro): 5/5 motor strength present throughout Extrem Other: venous exam: No significant superficial varicosities or spider telangiectasias, minimal edema General: No clubbing, No cyanosis and No edema Psych Appearance: grossly normal Mental Status: mental status grossly normal Speech and movement: Normal speech and movement present Assessment & Plan Assessment & Plan (1) PVD (peripheral vascular disease): Comment: 08/12/2018- bilateral iliac stents 03/28/2021 - right SFA atherectomy and stenting 03/26/2023 - right SFA plasty Code(s): I73.9 - Peripheral vascular disease, unspecified Category: Medical Plan: In short patient has stable claudication. I did review the pathophysiology of peripheral vascular disease with the patient. In addition we did discuss routine conservative measures including a healthy diet and the importance of exercise and ambulation. We did discuss risk factor modification. The patient will continue to to follow-up with surveillance follow-up in approximately 1 year. Thank you for allowing us to participate in this patient's care. If there are any questions or concerns please do not hesitate to contact us. Plan Patient was informed and verbally consented to the use of an ambient scribe for clinic note documentation during this visit. Orders: Orders US arterial duplex LE BI 1 Year I73.9 - Peripheral vascular disease, unspecified US abdominal aortic aneurysm 1 Year I73.9 - Peripheral vascular disease, unspecified Patient Instructions: - Continue walking regularly to maintain vascular health - Return for follow-up in one year for routine ultrasound and vascular assessment - Monitor for any new or worsening symptoms related to vascular health or hip discomfort and report if they occur - Prepare to celebrate your 79th birthday coming up in June! Coding Level of Care Code Est Pt Level 4 (53177) Diagnoses PVD (peripheral vascular disease) I73.9
--- OUTSIDE RECORDS SUMMARY | 2024-05-27 11:12 | XMS_ITS | Clinical Summary ---
Author Organization [facility] Address [address] [place] [address] Care Team Providers Care Sewing Machine Operator Semiautomatic Name Role Phone Unavailable Primary Care Provider [...]
--- OUTSIDE RECORDS SUMMARY | 2024-05-27 11:12 | XMS_ITS | Clinical Summary ---
Author Organization [facility] Address [address] [place] [address] Phone Care Team Providers Care Belt Sander Name Role Phone Marcia Clements MD Primary Care Provider [phone] Allergies No known active allergies Medications adalimumab [...] week Active ergocalciferol (VITAMIN D-2) 1.25 MG (57785 UT) capsule Take 1 capsule by mouth [...] this topic Insurance MEDICARE MEDICARE Care Teams Belt Sander Relationship Specialty Start Date End Date Marcia Clements MD [address] [place], [place] PCP - General 04/03/20
--- OUTSIDE RECORDS SUMMARY | 2024-05-27 11:12 | XMS_ITS | Clinical Summary ---
Author Organization [facility] Address [address] [place] [address] Care Team Providers Care Information Security Consultant Name Role Phone Marcia Clements MD Primary Care Provider [phone] Social History Tobacco Use Types Packs/Day Years [...] age to complete this topic Care Teams Information Security Consultant Relationship Specialty Start Date End Date Marcia Clements MD [address] [place] [address] [address] [facility] [place] [address] PCP - General Internal Medicine 06/01/20
== END 2024-05-27 10:05 | disposition home or self-care (01) ==
PROVIDERS: PCP Internal Medicine; Visit Provider Surgery Vascular Surgery
DX: I73.9 Peripheral vascular disease, unspecified (principal)
CPT/HCPCS: 99214

== ENCOUNTER → 2024-05-27 09:46 | Outpatient (BNVA) | payer OTHER, SELFPAY | PROVIDERS: PCP Internal Medicine; Visit Provider Surgery Vascular Surgery | DX: I73.9 Peripheral vascular disease, unspecified (principal) | CPT/HCPCS: 99212 ==

== ENCOUNTER 2024-07-16 11:09 | Outpatient (AMB) | payer OTHER, SELFPAY ==
--- NOTE | 2024-07-16 11:25 | A.OFFPC_ITS ---
Vital Signs 07/16/24 11:26 Height 5 ft 9 in Weight 182 lb BMI 26.9 BP 122/50 L Blood Pressure Location Lt brachial Position Sitting Pulse 84 Pulse Source Pulse Oximeter Temp 97.3 F Temp Source Temporal Artery Scan Pulse Oximetry (%) 97 Oxygen Delivery Method Room Air Intake Visit Reasons: [facility] 07/03 Cardiac Catherization Rv Mechanic Required: No Accompanied by: Spouse Allergies amoxicillin [From Augmentin] Adverse Reaction (Intermediate, Verified 07/16/24 11:26) Nausea and Vomiting clavulanic acid [From Augmentin] Adverse Reaction (Intermediate, Verified 07/16/24 11:26) Nausea and Vomiting Tobacco use date assessed: 03/29/24 Fall risk assessment: No Falls in past year Last assessed Fall Risk: 07/16/24 Dental Screening Dental Screen Date: 03/29/24 HPI HPI Comments History of Present Illness Details 78 y/o Male patient who presents to the clinic today for HDF. Pmhx significant for CAD, Ischemic Cardiomyopathy, HTN, HDL, and T2DM, was admitted at [facility] on 06/30 - 07/03 for NSTEMI, CHF Exacerbation and CKD. He is a Patient of [facility]. He is waiting for an appointment, to call cardiology office. [facility] Medical History CHF (congestive heart failure) Aortic stenosis PAD (peripheral artery disease) Heel ulcer Tobacco abuse Impacted cerumen of both ears Epidermoid cyst of skin of cheek Mass of face Allergic rhinitis Trigger finger, right middle finger Fracture of distal end of left radius with routine healing Superficial abrasion Pneumonia due to COVID-19 virus Acute hypoxemic respiratory failure due to COVID-19 Distal radius fracture, right Renal insufficiency Trigger finger, right middle finger Respiratory tract infection Preoperative clearance Iliac artery stenosis, 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 History of renal calculi Compression fracture of L1 lumbar vertebra Infective endocarditis Glaucoma Left carotid stenosis GERD (gastroesophageal reflux disease) Pulmonary nodule Cardiomyopathy Congestive heart failure Overweight (BMI 25.0-29.9) Carotid artery stenosis PVD (peripheral vascular disease) Dyslipidemia Hypertension CAD (coronary artery disease) Diabetic retinopathy associated with type 2 diabetes mellitus Diabetic polyneuropathy associated with type 2 diabetes mellitus CKD stage 3 due to type 2 diabetes mellitus Diabetic 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 diabetes mellitus 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 Surgical History Hx of shoulder surgery Hx of coronary artery bypass graft Hx of cataract removal with insertion of prosthetic lens Hx of tonsillectomy Hx of appendectomy Hx of arthroscopy of right knee Family History Father Stomach cancer Mother Diabetes Brother Prostate abscess Social History Household Members: Spouse Housing: Apartment Do you presently have visiting nurse or other home services: Yes Alcohol intake: never Patient Tobacco Use Status: Never used Tobacco Tobacco use type: Cigarette Cigarette Packs Per Day: 0.25 Cigarettes Per Day: 3 Years Smoked: 65 e-Cigarette/Vaping Use: Never Used Second Hand Smoke Exposure: Yes Advance Directives Date on File: 06/08/21 service: No Current occupational status: 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 Cognitive needs: No Hearing needs: No Vision needs: No Questionnaire Thrive Questionnaire Date Thrive assessed: 03/29/24 THIERNO-7 AMB Questionnaire THIERNO-7 Date THIERNO - 7 assessed: 03/29/24 Source: Developed by Drs. Mendez Warren, Chelsea David, Kane Oakes and colleagues, with an educational charisse from [employer]. Review of Systems Const All systems reviewed & are unremarkable except as noted in HPI and below Physical exam (Primary Care) Vital Signs: Last Vital Signs Temp 97.3 F 07/16/24 11:26 Pulse 84 07/16/24 11:26 BP 122/50 L 07/16/24 11:26 Pulse Ox 97 07/16/24 11:26 Oxygen Delivery Method Room Air 07/16/24 11:26 BMI result Body Mass Index 26.9 Tobacco/Smoking Status: Tobacco use Status Tobacco use date assessed 03/29/24 07/16/24 11:27 Patient Tobacco Use Status Never used Tobacco 07/16/24 11:27 Tobacco use type Cigarette 07/16/24 11:27 e-Cigarette/Vaping Use Never Used 07/16/24 11:27 Thrive Assessment: Date of Thrive Assessment Date Thrive assessed 03/29/24 07/16/24 11:27 Const General: no acute distress Orientation/consciousness: patient oriented x3 Limitations: ambulation with walker Resp Effort & Inspection: normal respiratory effort Auscultation: clear to auscultation bilaterally Cardio Rhythm: abnormal rhythm irregularly irregular Heart sounds: S1 normal heart sound present and S2 normal heart sound present Neuro General: patient oriented x3 and moves all extremities Psych Speech and movement: Normal speech and movement present Results AMB Hemoglobin A1c AMB Hemoglobin A1c 7.8 % Last Edit by SALOME Tinsley on 07/16/24 11:30 Results Reviewed Results Reviewed: Laboratory Last Values Hgb A1c (Clinic) 7.8 % (4.0-6.0) H 07/16/24 11:29 Coding Level of Care Code Est Pt Level 4 (25885) Diagnoses NSTEMI (non-ST elevated myocardial infarction) I21.4 CHF (congestive heart failure) I50.9 Heart failure chronicity: acute on chronic Heart failure type: unspecified Time Spent (min) 20 Assessment & Plan Assessment & Plan (1) NSTEMI (non-ST elevated myocardial infarction): Code(s): I21.4 - Non-ST elevation (NSTEMI) myocardial infarction Category: Medical Plan: Managed by Cardiology. (2) CHF (congestive heart failure): Comment: Diastolic Code(s): I50.9 - Heart failure, unspecified Category: Medical Qualifiers: Heart failure chronicity: acute on chronic Heart failure type: unspecified Qualified Code(s): I50.9 - Heart failure, unspecified Plan: Managed by Cardiology. Orders: Orders AMB Hemoglobin A1c Today E11.22 - Type 2 diabetes mellitus with diabetic chronic kidney disease, N18.30 - Chronic kidney disease, stage 3 unspecified
[2024-07-16 11:26] VITALS: BP 122/50; PULSE 84; TEMP 36.3; O2SAT 97; BMI 26.9
--- OUTSIDE RECORDS SUMMARY | 2024-07-16 12:00 | XMS_ITS | Clinical Summary ---
Author Organization [facility] Address [address] [place] [address] Care Team Providers Care Continuity Tester Name Role Phone Marcia Clements MD Primary Care Provider [phone] Social History Tobacco Use Types Packs/Day Years [...] age to complete this topic Care Teams Continuity Tester Relationship Specialty Start Date End Date Marcia Clements MD [address] [place] [address] [address] [facility] [place] [address] PCP - General Internal Medicine 06/01/20
--- OUTSIDE RECORDS SUMMARY | 2024-07-16 12:00 | XMS_ITS ---
Author Organization [facility] Care Team Providers Care Dynamometer Tester Engine Name Role Phone Brittny Meza Unavailable Unavailable Juana Urban Unavailable Unavailable Allergies and adverse reactions Code CodeSystem Substance Reaction Severity StartDate Concern Status 4603 RXNORM Furosemide Unknown 12/20/2022 active Care Team Name Role Address Phone Organization Dates Brittny Meza Attending Physician [address], [place], [address], [place] (Office): : : [facility] 12/20/2022 - 01/13/2023 Juana Urban Attending Physician [address] [place] [address], [phone], [place] (Office): : : [facility] 12/20/2022 - 01/13/2023 Immunizations Immunization Status Vaccine Details Vaccine Code CodeSystem Date Notes TB 1 Step Mantoux (PPD) completed tuberculin skin test; purified protein derivative solution, intradermal lotNumber: [id number] expiry: 11/23/2023 Mfg: [employer] Given 0.1 ml Left Forearm intradermally 96 CVX created date: 12/25/2022 consent date: 12/25/2022 administere d date: 12/25/2022 PCV (Prevnar) 13 completed pneumococcal conjugate vaccine, 13 valent 133 CVX created date: 12/23/2022 administere d date: 04/17/2015 Pneumovax Dose 3 -if indicated completed pneumococcal polysaccharide vaccine, 23 valent 33 CVX created date: 12/23/2022 administere d date: 12/04/2018 COVID-19 Vaccine Dose 1 completed unknown vaccine or immune globulin Mfg: Pfizer 999 CVX created date: 12/23/2022 administere d date: 06/08/2020 COVID-19 Vaccine Dose 2 completed unknown vaccine or immune globulin 999 CVX created date: 12/23/2022 administere d date: 06/29/2020 COVID-19 Vaccine Additional Dose/Booster completed unknown vaccine or immune globulin 999 CVX created date: 12/23/2022 administere d date: 03/14/2021 PCV (Prevnar) 20 completed Pneumococcal conjugate vaccine 20-valent (PCV20), polysaccharide [id number] conjugate, adjuvant, preservative free expiry: 10/22/2025 Mfg: Avias[employer] Given 0.5 ml Right Deltoid intramuscularly 216 CVX created date: 12/30/2022 consent date: 12/30/2022 administere d date: 12/30/2022 Flu Vaccine Prior To Admission (historical only) completed unknown vaccine or immune globulin 999 CVX created date: 12/23/2022 administere d date: 01/12/2022 Influenza Fluzone High Dose 0.7ML dose (CVX 197) completed Influenza, high-dose, split virus, quadrivalent, injectable, preservative free lotNumber: [id number] expiry: 09/21/2023 Mfg: Fluzone HD Given 0.7 ml Right Deltoid intramuscularly 197 CVX created date: 12/25/2022 consent date: 12/25/2022 administere d date: 12/25/2022 Mental Status Section Date Assessment Total Score Description 01/13/2023 BIMS 14 cognitively int act CAM 0 No delirium ind icated PHQ-9 00 12/26/2022 BIMS 14 cognitively int act CAM 0 No delirium ind icated PHQ-9 00 Problems Problem # Description Date of onset Resolved Date Code CodeSystem Concern Status 1 ATHEROSCLEROTIC HEART DISEASE OF [place] CORONARY ARTERY WITHOUT ANGINA PECTORIS 12/21/[address] active 2 CHRONIC KIDNEY DISEASE, STAGE 3 UNSPECIFIED 12/21/[address] active 3 DISPLACED INTERTROCHANTERIC FRACTURE OF RIGHT FEMUR, SUBSEQUENT ENCOUNTER FOR CLOSED FRACTURE WITH ROUTINE HEALING 12/21/[address] active 4 ESSENTIAL (PRIMARY) HYPERTENSION 12/21/[address] active 5 GASTRO-ESOPHAGEAL REFLUX DISEASE WITHOUT ESOPHAGITIS 12/21/[address] active 6 CAREER TECHNICAL COUNSELOR (CURRENT) USE OF INSULIN 12/21/[address] active 7 TYPE 2 DIABETES MELLITUS WITH DIABETIC CHRONIC KIDNEY DISEASE 12/21/[address] active 8 TYPE 2 DIABETES MELLITUS WITH DIABETIC POLYNEUROPATHY 12/21/[address] active 9 TYPE 2 DIABETES MELLITUS WITH UNSPECIFIED DIABETIC RETINOPATHY WITHOUT MACULAR EDEMA 12/21/[address] active 10 UNSPECIFIED SYSTOLIC (CONGESTIVE) HEART FAILURE 12/21/[address] active Reason for Referral No Reasons for Referral Entered Social History Social History Observation Description Start Date End Date Code Code System Current Smoking Status Tobacco smoking consumption unknown 311510752 SNOMED CT Sex Assigned At Male 1945 09059-1 [facility] Vital Signs Code Code System Vitals Name Values and Units Timing Information 2339-0 LOINC Blood Sugar Nvqbu=848.0 Units=mg/dL 01/13/2023 45032-0 LOINC Pain Level Value=0.0 01/13/2023 14513-9 LOINC Weight Ojoih=093.0 Units=Lbs 8462-4 LOINC Blood Pressure-Diastolic Value=78 Un its=mmHg 01/13/2023 8480-6 LOINC Blood Pressure-Systolic Edpau=958 Un its=mmHg 01/13/2023 8867-4 [facility] Heart rate Value=72.0 Units=/min 56914-6 INC O2 % BldC Oximetry Value=98.0 Units= % 01/13/2023 8310-5 [facility] Body Temperature Value=98.0 Units=?? F 01/13/2023 9279-1 [facility] Respiratory Rate Value=18.0 Units=/m in 01/12/2023 8302-2 [facility] Height Value=66.0 Units=Inches 12/21/2022
--- OUTSIDE RECORDS SUMMARY | 2024-07-16 12:00 | XMS_ITS | Clinical Summary ---
Author Organization [facility] Address [address] [place] [address] Phone Care Team Providers Care Live In Caregiver Name Role Phone Marcia Clements MD Primary Care Provider [phone] Allergies No known active allergies Medications adalimumab [...] week Active ergocalciferol (VITAMIN D-2) 1.25 MG (29362 UT) capsule Take 1 capsule by mouth [...] Due Date Last Done Comments Pneumococcal Vaccine: 50+ Ye ars (1 of 2 - PCV) 07/21/1964 Diabetes: Hemoglobin A1C 04/23/2020 Diabetes: Ophthalmology Exam 04/23/2020 Diabetes: Pedal Pulse Checked 04/23/2020 Diabetes: Sensory Foot Exam 04/23/2020 Diabetes: Visual Foot Exam 04/23/2020 Influenza Vaccine (Season Ended) 2024 Hepatitis B Vaccine Aged Out No longe r eligible based on patient's age to complete this topic Insurance Medicare Medicare Care Teams Live In Caregiver Relationship Specialty Start Date End Date Marcia Clements MD [address] [place], [place] PCP - General 04/03/20
== END 2024-07-16 12:20 | disposition home or self-care (01) ==
LOC: HO.HMCH 11:10
PROVIDERS: PCP Internal Medicine; Visit Provider Nurse Practitioner Family
DX: I50.9 Heart failure, unspecified (principal); E11.22 Type 2 diabetes mellitus with diabetic chronic kidney disease; N18.30 Chronic kidney disease, stage 3 unspecified; I25.2 Old myocardial infarction

== ENCOUNTER → 2024-07-16 11:09 | Outpatient (BNVA) | payer OTHER, SELFPAY | PROVIDERS: PCP Internal Medicine; Visit Provider Nurse Practitioner Family | DX: I21.4 Non-ST elevation (NSTEMI) myocardial infarction (principal); I13.0 Hypertensive heart and chronic kidney disease with heart failure and stage 1 through stage 4 chronic kidney disease, or unspecified chronic kidney disease; E11.22 Type 2 diabetes mellitus with diabetic chronic kidney disease; N18.30 Chronic kidney disease, stage 3 unspecified; I50.9 Heart failure, unspecified | CPT/HCPCS: 83036; 99212 ==

== ENCOUNTER 2024-07-21 09:22 | Outpatient (AMB) | payer OTHER, SELFPAY ==
[2024-07-21 09:26] VITALS: BP 120/68; PULSE 78; BMI 27.3
--- NOTE | 2024-07-21 09:26 | A.OFFVIS_ITS ---
Vital Signs 07/21/24 09:26 Height 5 ft 9 in Weight 185 lb 3.013 oz BMI 27.3 BP 120/68 Blood Pressure Location Lt brachial Position Sitting Pulse 78 Pulse Source Pulse Oximeter Intake Visit Reasons[place] [facility] [place] Chief Safety Officer Required: Yes Chief Safety Officer Services: Chief Safety Officer Offered & Declined Accompanied by: Family/Other Allergies amoxicillin [From Augmentin] Adverse Reaction (Intermediate, Verified 07/16/24 11:26) Nausea and Vomiting clavulanic acid [From Augmentin] Adverse Reaction (Intermediate, Verified 07/16/24 11:26) Nausea and Vomiting Medication List - Last Reconciled 07/21/24 by Emile Bridges MD acetaminophen (Tylenol Extra Strength) 500 mg PO Q6H PRN amlodipine 10 mg PO BEDTIME aspirin 81 mg PO BEDTIME blood sugar diagnostic (FreeStyle Lite Strips) As directed four times a day 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 meter ([place] Lite kit) As directed 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,rn private duty,cont (Dexcom G6 Model Maker Plastic) As directed 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 sensor (Dexcom G6 Sensor device) As directed 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 transmitter (Dexcom G6 Transmitter device) As directed brimonidine 0.15% 1 drp ophthalmic (eye) BID [diabetic shoe lift As directed] [diabetic shoes As directed] docusate sodium 200 mg PO DAILY PRN dorzolamide-timolol 22.3-6.8 mg/mL 1 drp ophthalmic (eye) BID dulaglutide 3 mg (0.5 mL) subcut PONCE@0900 4 weeks furosemide 40 mg See Protocol PO DAILY gabapentin 300 mg PO BEDTIME [hospital bed As directed] [HOSPITAL BED As directed] insulin degludec 20 units (0.2 mL) subcut BEDTIME insulin lispro (Humalog KwikPen (U-100) Insulin) 6 units (0.06 mL) subcut TIDAC isosorbide mononitrate ER 30 mg PO BID lancets (FreeStyle Lancets) As directed check BS QD metoprolol succinate ER 25 mg PO DAILY multivitamin 1 tab PO BEDTIME nicotine 1 patch transdermal DAILY pantoprazole 40 mg PO DAILY pen needle, diabetic (BD Martina 2nd Gen Pen Needle) 5 times a day rosuvastatin 40 mg PO DAILY ticagrelor (Brilinta) 90 mg PO BID HPI Comments Details: Deyanira comes for follow-up after recent hospitalization at [facility]. Initial hospitalization with NSTEMI led to cardiac catheterization with patent grafts and then needing intervention in the mid circumflex artery with drug-eluting stent. His part of a study and he is not aware of whether he received a stent or a drug coated balloon. Patient subsequently readmitted to the hospital with recurrent chest pain and at that time had repeat cardiac catheterization and was noted to have no changes anatomy and the implanted stent in the circumflex artery was patent but was noted to have distal LPL branches which were severely disease and would not candidate for interventions. He was then advise medical therapy. He also had heart failure syndrome. He is currently taking all his medications. Since the hospitalization he has not had any recurrent chest pain on current medical therapy. As per his he has been fatigued and tired although this is not a new symptom. Does not exercise much and is very sedentary and mostly walks around the house. He has not had any orthopnea, PND, leg edema. No lightheadedness, syncope. Taking all his medications. [facility] Medical History CHF (congestive heart failure) Aortic stenosis PAD (peripheral artery disease) Heel ulcer Tobacco abuse Impacted cerumen of both ears Epidermoid cyst of skin of cheek Mass of face Allergic rhinitis Trigger finger, right middle finger Fracture of distal end of left radius with routine healing Superficial abrasion Pneumonia due to COVID-19 virus Acute hypoxemic respiratory failure due to COVID-19 Distal radius fracture, right Renal insufficiency Trigger finger, right middle finger Respiratory tract infection Preoperative clearance Iliac artery stenosis, 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 History of renal calculi Compression fracture of L1 lumbar vertebra Infective endocarditis Glaucoma Left carotid stenosis GERD (gastroesophageal reflux disease) Pulmonary nodule Cardiomyopathy Congestive heart failure Overweight (BMI 25.0-29.9) Carotid artery stenosis PVD (peripheral vascular disease) Dyslipidemia Hypertension CAD (coronary artery disease) Diabetic retinopathy associated with type 2 diabetes mellitus Diabetic polyneuropathy associated with type 2 diabetes mellitus CKD stage 3 due to type 2 diabetes mellitus Diabetic 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 diabetes mellitus skilled nursing (current) use of insulin Surgical History Hx of shoulder surgery Hx of coronary artery bypass graft Hx of cataract removal with insertion of prosthetic lens Hx of tonsillectomy Hx of appendectomy Hx of arthroscopy of right knee Family History Father Stomach cancer Mother Diabetes Brother Prostate abscess Social History Household Members: Spouse Housing: Apartment Do you presently have visiting nurse or other home services: Yes Alcohol intake: never Patient Tobacco Use Status: Never used Tobacco Tobacco use type: Cigarette Cigarette Packs Per Day: 0.25 Cigarettes Per Day: 3 Years Smoked: 65 e-Cigarette/Vaping Use: Never Used Second Hand Smoke Exposure: Yes Advance Directives Date on File: 06/08/21 service: No Current occupational status: 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 Cognitive needs: No Hearing needs: No Vision needs: No Review of Systems Const Denies weakness ENT Denies dizziness Card Denies chest pain, Denies chest pain with activity, Denies syncope, Denies rapid heart rate, Denies pedal edema, Denies edema, Denies leg edema, Denies lightheadedness, Denies palpitations, Denies dyspnea, Denies dyspnea on exertion and Denies orthopnea Resp Denies cough, Denies dyspnea and Denies dyspnea on exertion GI Denies hematochezia and Denies change in stool character Musc Denies abnormal gait, Denies muscle cramps, Denies muscle weakness, Denies numbness, Denies radiating pain into limb and Denies tingling Neuro Denies abnormal gait, Denies dizziness, Denies syncope, Denies numbness, Denies tingling and Denies weakness Endo Denies palpitations Physical Exam Vital Signs: Last Vital Signs Pulse 78 07/21/24 09:26 BP 120/68 07/21/24 09:26 BMI result Body Mass Index 27.3 Const General: cooperative, comfortable, no acute distress, alert, awake and other (Disheveled) Nutritional Appearance: obese Orientation/consciousness: patient oriented x3 Limitations: no limitations Neck Neck: Yes trachea midline, Yes supple and Yes no JVD Resp Effort & Inspection: normal respiratory effort Auscultation: clear to auscultation bilaterally and diminished lung sounds Cardio Jugular venous distension: no JVD Palpation: normal PMI Rate: regular rate Rhythm: abnormal rhythm with ectopic beats Heart sounds: S1 normal heart sound present, S2 normal heart sound present (soft), no click, no gallops, Murmur heart sound present systolic mid, blowing and decrescendo and Other heart sounds present (Soft to absent S2) Peripheral pulses: other (Reduced distal pulses) GI Auscultation: normal bowel sounds Skin General skin exam: no rashes or lesions noted and ecchymosis Neuro General: patient oriented x3 and no focal motor deficits Extrem General: Yes no clubbing, cyanosis or edema Assessment & Plan Assessment & Plan (1) Stented coronary artery: Code(s): Z95.5 - Presence of coronary angioplasty implant and graft Category: Surgical Plan: Patient with diffuse and significant vascular disease with coronary artery bypass grafting remotely more than 10 years ago with recent intervention to his distal circumflex artery for NSTEMI and chest pain. He subsequently repeat cardiac catheterization has diffuse distal LPL disease which is not intervenable. He has been maximized on medical therapy and currently on triple antianginal therapy with isosorbide, amlodipine and metoprolol. He currently has no symptoms of angina at current functional level compared to prior to this hospitalization. Continue current medical therapy and importance of this was discussed. Continue dual antiplatelet therapy with aspirin and Brilinta for 1 year uninterrupted and this was discussed with him. Continue high-intensity statin therapy. Advised lipid panel in 3 months time. Also recommend phase 2 cardiac rehabilitation to enhance his exercise activity and combat with symptoms of fatigue. (2) CHF (congestive heart failure): Comment: Diastolic Code(s): I50.9 - Heart failure, unspecified Category: Medical Qualifiers: Heart failure chronicity: acute on chronic Heart failure type: unspecified Qualified Code(s): I50.9 - Heart failure, unspecified Plan: Patient with heart failure with preserved ejection fraction, clinically euvolemic and well compensated on current diuretic dose. was wondering whether the Lasix can be reduced. I discussed that this is what his maintaining his current euvolemic state and would avoid doing that as this will lead to decompensation and further hospitalization. Continue the same. Continue aggressive daily weight monitoring avoidance salt loading. Phase 2 cardiac rehabilitation as above. Can consider adding Jardiance to his regimen for heart failure management as well as diabetes management. (3) Aortic stenosis: Comment: April 2021, December 2021 1.3 cm November 2022 1.October Code(s): I35.0 - Nonrheumatic aortic (valve) stenosis Category: Medical Plan: Aortic stenosis which is moderate by recent echocardiogram at [facility]. No interventions required per se for the same. Continue aggressive vascular risk factor modification as 1. (4) Fatigue: Code(s): R53.83 - Other fatigue Plan: Symptoms of fatigue which are very nonspecific and could be multifactorial. Could be related to advancing age with sedentary lifestyle and/or related to medical therapy with metoprolol and/or related to frequent PVCs in the past for which she was on amiodarone therapy. Will follow-up Holter monitor in near future. Recommend phase 2 cardiac rehabilitation as above. Encouraged to maint ain activity level as well as maintain adequate nutrition. Follow up in the clinic in 3 months time, sooner p.r.n.. Thank you for allowing me to partake in his care Orders: Orders Cardiac Rehab Today Emile Bridges MD Z95.5 - Presence of coronary angioplasty implant and graft ECG 3 day holter monitor 1 Month Emile Bridges MD I49.3 - Ventricular premature depolarization Lipid Panel 3 Months Emile Bridges MD I25.10 - Atherosclerotic heart disease of [place] coronary artery without angina pectoris, Z95.5 - Presence of coronary angioplasty implant and graft Medications: Changed From isosorbide mononitrate ER 30 mg PO DAILY 90 tabs 1RF To isosorbide mononitrate ER 30 mg PO BID Skylar Gamez, ANNY-C Coding Level of Care Code Est Pt Level 4 (82530) Complex EM visit Add On G2211 Diagnoses Stented coronary artery Z95.5 CHF (congestive heart failure) I50.9 Heart failure chronicity: acute on chronic Heart failure type: unspecified Aortic stenosis I35.0 Fatigue R53.83
--- OUTSIDE RECORDS SUMMARY | 2024-07-21 10:02 | XMS_ITS | Clinical Summary ---
Author Organization [facility] Address [address] [place] [address] Phone Care Team Providers Care Tooling Manager Name Role Phone Marcia Clements MD Primary Care Provider [phone] Allergies No known active allergies Medications adalimumab [...] week Active ergocalciferol (VITAMIN D-2) 1.25 MG (80681 UT) capsule Take 1 capsule by mouth [...] this topic Insurance Medicare Medicare Care Teams Tooling Manager Relationship Specialty Start Date End Date Marcia Clements MD [address] [place], [place] PCP - General 04/03/20
--- OUTSIDE RECORDS SUMMARY | 2024-07-21 10:02 | XMS_ITS | Clinical Summary ---
Author Organization [facility] Address [address] [place] [address] Care Team Providers Care Athletic Training Internship Name Role Phone Marcia Clements MD Primary Care Provider [phone] Social History Tobacco Use Types Packs/Day Years [...] age to complete this topic Care Teams Athletic Training Internship Relationship Specialty Start Date End Date Marcia Clements MD [address] [place] [address] [address] [facility] [place] [address] PCP - General Internal Medicine 06/01/20
--- OUTSIDE RECORDS SUMMARY | 2024-07-21 10:02 | XMS_ITS ---
Author Organization [facility] [place] Care Team Providers Care Compliance Vice President Name Role Phone Brittny Meza Unavailable Unavailable Juana Urban Unavailable Unavailable Allergies and adverse reactions Code CodeSystem Substance Reaction Severity StartDate Concern Status 4603 RXNORM Furosemide Unknown 12/20/2022 active Care Team Name Role Address Phone Organization Dates Brittny Meza Attending Physician [address], [place], [address], [place] (Office): : : [facility] [place] 12/20/2022 - 01/13/2023 Juana Urban Attending Physician [address] [place] [address], [phone], [place] (Office): : : [facility] [place] 12/20/2022 - 01/13/2023 Immunizations Immunization Status Vaccine Details Vaccine Code CodeSystem Date Notes TB 1 Step Mantoux (PPD) completed tuberculin skin test; purified protein derivative solution, intradermal lotNumber: [id number] expiry: 11/23/2023 Mfg: P[employer] Given 0.1 [...] completed Pneumococcal conjugate vaccine 20-valent (PCV20), polysaccharide [id number] conjugate, adjuvant, preservative free expiry: 10/22/2025 Mfg: Realm Given 0.5 ml Right Deltoid intramuscularly 216 CVX created date: 12/30/2022 consent date: 12/30/2022 administere d date: 12/30/2022 Flu Vaccine Prior To Admission (historical only) completed unknown vaccine or immune globulin 999 CVX created date: 12/23/2022 administere d date: 01/12/2022 Influenza Fluzone High Dose 0.7ML dose (CVX 197) completed Influenza, high-dose, split virus, quadrivalent, injectable, preservative free lotNumber: [id number] expiry: 09/21/2023 Mfg: Fluzone HD Given 0.7 [...] Concern Status 1 ATHEROSCLEROTIC HEART DISEASE OF [place] CORONARY ARTERY WITHOUT ANGINA PECTORIS 12/21/[address] active 2 CHRONIC KIDNEY DISEASE, STAGE 3 UNSPECIFIED 12/21/[address] active 3 DISPLACED INTERTROCHANTERIC FRACTURE OF RIGHT FEMUR, SUBSEQUENT ENCOUNTER FOR CLOSED FRACTURE WITH ROUTINE HEALING 12/21/[address] active 4 ESSENTIAL (PRIMARY) HYPERTENSION 12/21/[address] active 5 GASTRO-ESOPHAGEAL REFLUX DISEASE WITHOUT ESOPHAGITIS 12/21/[address] active 6 FOIL SPINNER (CURRENT) USE OF INSULIN 12/21/[address] active 7 TYPE 2 DIABETES MELLITUS WITH DIABETIC CHRONIC KIDNEY DISEASE 12/21/[address] active 8 TYPE 2 DIABETES MELLITUS WITH DIABETIC POLYNEUROPATHY 12/21/[address] active 9 TYPE 2 DIABETES MELLITUS WITH UNSPECIFIED DIABETIC RETINOPATHY WITHOUT MACULAR EDEMA 12/21/[address] active 10 UNSPECIFIED SYSTOLIC (CONGESTIVE) HEART FAILURE 12/21/[address] active Reason for Referral No Reasons for Referral Entered Social History Social History Observation Description Start Date End Date Code Code System Current Smoking Status Tobacco smoking consumption unknown 781620961 SNOMED CT Sex Assigned At Male 1945 13781-5 [facility] Vital Signs Code Code System Vitals Name Values and Units Timing Information 2339-0 LOINC Blood Sugar Lypil=777.0 Units=mg/dL 01/13/2023 59551-3 LOINC Pain Level Value=0.0 01/13/2023 60157-5 LOINC Weight Agtdd=385.0 Units=Lbs 8462-4 LOINC Blood Pressure-Diastolic Value=78 Un its=mmHg 01/13/2023 8480-6 LOINC Blood Pressure-Systolic Ekufm=940 Un its=mmHg 01/13/2023 8867-4 [facility] Heart rate Value=72.0 Units=/min 58739-2 INC O2 % BldC Oximetry Value=98.0 Units= % 01/13/2023 8310-5 [facility] Body Temperature Value=98.0 Units=?? F 01/13/2023 9279-1 [facility] Respiratory Rate Value=18.0 Units=/m in 01/12/2023 8302-2 [facility] Height Value=66.0 Units=Inches 12/21/2022
--- OUTSIDE RECORDS SUMMARY | 2024-07-21 10:02 | XMS_ITS | Clinical Summary ---
Author Organization [facility] Address [address] [place] [address] Care Team Providers Care Benefits Director Name Role Phone Unavailable Primary Care Provider Unavailabl e Allergies No known active allergies Medications ondansetron (ZOFRAN-ODT) 4 MG disintegrating tablet Take 1 tablet (4 mg total) by mouth 3 times daily (every 8 hours) as needed for nausea or vomiting. Place tablet on tongue to dissolve. 10 tablet 9 Active Social History Tobacco Use Types Packs/Day Years Used Date Smoking Tobacco: Never Assessed Sex and Gender Information Value Date Recorded Sex Assigned at Not on file Legal Sex Male 6:40 PM EST Gender Identity Not on file [...] series) 07/21/2019 Influenza Vaccine 10/23/2023 COVID-19 Vaccine (2023-2 5 season) 2023 Hepatitis B Vaccines Aged Out No long er eligible based on patient's age to complete this topic Insurance MEDICARE PART A & B
== END 2024-07-21 09:55 | disposition home or self-care (01) ==
LOC: HO.HCS 09:23
PROVIDERS: PCP Internal Medicine; Visit Provider Internal Medicine Cardiovascular Disease
DX: Z95.5 Presence of coronary angioplasty implant and graft (principal); I50.9 Heart failure, unspecified; I35.0 Nonrheumatic aortic (valve) stenosis; R53.83 Other fatigue
CPT/HCPCS: 99214; G2211

== ENCOUNTER → 2024-07-21 09:22 | Outpatient (BNVA) | payer OTHER, SELFPAY | PROVIDERS: PCP Internal Medicine; Visit Provider Internal Medicine Cardiovascular Disease | DX: I50.9 Heart failure, unspecified (principal); I35.0 Nonrheumatic aortic (valve) stenosis; R53.83 Other fatigue; Z95.5 Presence of coronary angioplasty implant and graft | CPT/HCPCS: 99212 ==

== ENCOUNTER → 2024-08-19 13:51 | Outpatient (REF) | payer OTHER, SELFPAY ==
--- OUTSIDE RECORDS SUMMARY | 2024-08-19 14:00 | XMS_ITS | Clinical Summary ---
Author Organization [facility] Address [address] [place] [address] Care Team Providers Care Desulphuring Operator Name Role Phone Unavailable Primary Care Provider [...] Health Maintenance Due Date Last Done Comments DTaP/Tdap/Td Vaccines (1 - Tdap) 07/21/1963 Pneumococcal Vaccines 50+ (1 of 1 - PCV) 1994 Zoster (Shingles) Vaccine (1 of 2) 1994 RSV Vaccine 60 years and old er and Patients (1 - 1-dose 75+ series) 07/21/2019 COVID-19 Vaccine ( - 2023-2 5 season) 2023 Influenza Vaccine 10/22/2024 Hepatitis B Vaccines Aged Out No long er eligible based on patient's age to complete this topic Insurance MEDICARE PART A & B
== END ==
LOC: HO.CARD 13:51
PROVIDERS: PCP Internal Medicine; Visit Provider Internal Medicine Cardiovascular Disease
DX: I49.3 Ventricular premature depolarization (principal)
CPT/HCPCS: 93242

== ENCOUNTER → 2024-08-19 13:54 | Outpatient (BNV) | payer OTHER, SELFPAY | PROVIDERS: PCP Internal Medicine; Visit Provider Internal Medicine | DX: I47.10 Supraventricular tachycardia, unspecified (principal); I49.3 Ventricular premature depolarization | CPT/HCPCS: 93244 ==

== ENCOUNTER 2024-09-14 18:48 | Inpatient (IN) | payer OTHER, SELFPAY ==
--- NOTE | 2024-09-14 | ECG_ITS ---
Test Reason : HYPOTENSION Blood Pressure : */* mmHG Vent. Rate : 68 BPM Atrial Rate : 68 BPM P-R Int : 190 ms QRS Dur : 94 ms QT Int : 408 ms P-R-T Axes : 109 -15 105 degrees QTcB Int : 433 ms Normal sinus rhythm Cannot rule out Inferior infarct (cited on or before 10-Apr-2023) Abnormal ECG When compared with ECG of 15-Apr-2024 13:12, No significant change was found Referred By: Generic ED Physician Electronically Signed By: SVETLANA KESSLER
--- NOTE | ~2024-09-14 | XR_ITS ---
CLINICAL HISTORY: cough CHEST X-RAY FRONTAL VIEW COMPARISON: 03/22/2023. FINDINGS: The patient is mildly rotated to the right. There are postoperative changes of a median sternotomy. The cardiac silhouette is accentuated by the portable technique. The lungs are again noted to be hyperinflated. No focal infiltrate or consolidation. No pleural effusion or pneumothorax. IMPRESSION: 1. No acute disease. This document has been electronically signed by: Inder Titus M.D. on 09/14/2024 23:19:16
[2024-09-14 19:01] VITALS: BP 102/50; PULSE 74; O2SAT 92
[2024-09-14 19:07] VITALS: BP 104/44; PULSE 68; RESP 18; TEMP 36.8; O2SAT 99; BMI 30.2
[2024-09-14 20:15] LABS: MANUAL DIFF FLAG NO
[2024-09-14 20:16] LABS: Basophils Absolute Auto 0.1 X10*3/uL (0.0-0.2); Basophils Percent Auto 0.8 % (0-2); Eosinophils Absolute Auto 0.4 X10*3/uL (0.0-0.4); Eosinophils Percent Auto 4.9 % (0-4); Hemoglobin 10.3 g/dl (14.0-18.0); Imm Gran Abs Auto 0.02 X10*3/uL (0.00-0.03); Imm Gran Pct Auto 0.2 % (0.0-0.4); Lymphocytes Absolute Auto 2.2 X10*3/uL (1.2-4.9); Lymphocytes Percent Auto 25.2 % (20-40); Mean Corpuscular HGB Conc 34.3 g/dl (31.0-36.0); Mean Corpuscular Hemoglobin 31.6 pg (27.0-33.0); Mean Platelet Volume 10.2 fL (9.4-12.4); Monocytes Absolute Auto 0.9 X10*3/uL (0.1-1.2); Monocytes Percent Auto 10.9 % (2-11); Neutrophils Absolute Auto 4.9 x10*3/uL (2.0-8.3); Platelet Count 179 X10*3/uL (160-400); Red Blood Count 3.26 X10*6/uL (4.60-5.80); Red Cell Distribution Width 13.8 % (11.0-16.0); White Blood Count 8.5 X10*3/uL (4.8-10.8)
[2024-09-14 20:23] LABS: Prothrombin Time 11.4 SEC (10.9-12.4)
[2024-09-14 20:29] LABS: Anion Gap 14 (12-20); Blood Urea Nitrogen 56 mg/dL (9-16); Calcium 9.2 mg/dL (8.4-10.2); Carbon Dioxide 26 mmol/L (22-29); Chloride 105 mmol/L (96-108); Creatinine Clr Calc Pharmacy 23.9; Estimated Glomerular Filt Rate 25; Glucose Random 126 mg/dL (60-115); Magnesium 2.1 mg/dL (1.6-2.6); Potassium 4.1 mmol/L (3.3-5.1); Sodium 141 mmol/L (135-145)
[2024-09-14 20:36] LABS: B Type Natriuretic Peptide 77 pg/mL (<100); Troponin-I High Sensitivity 20.2 ng/L (<3.5-35.0)
[2024-09-14 20:52] VITALS: BP 115/55; PULSE 71; RESP 20; TEMP 36.3; O2SAT 96
[2024-09-14 21:54] VITALS: BP 89/32; PULSE 67; RESP 14; TEMP 36.3; O2SAT 100
[2024-09-14 22:05] VITALS: BP 135/42; PULSE 68; RESP 14; O2SAT 100
--- NOTE | 2024-09-14 22:53 | ED.GENADULT ---
HPI - General Adult General Chief complaint: General Medical Stated complaint: tired hyptensive Time Seen by Provider: 09/14/24 22:01 Source: patient, RN notes reviewed, old records reviewed and verification lead Mode of arrival: EMS Limitations: language barrier History of Present Illness ED Provider: Angela HPI narrative: [age] old male past medical history significant for coronary artery disease status post stenting 2 months ago at [facility], history of CHF, tobacco dependence, chronic kidney disease, diabetes, GERD presents for evaluation of fatigue Patient reports increasing fatigue over last few days with decreased appetite and decreased urine output. The patient states that he has been drinking lots of water. He reports that 1 of his medications was recently increased. His external med rec shows he was prescribed furosemide 40 mg, he is unsure if this was an increase from his baseline. He denies any pain including headaches, chest pain back pain, abdominal pain. Denies any cough, shortness of breath nausea vomiting, or diarrhea Related Data Home Medications ?Medication ?Instructions ?Recorded ?Confirmed dorzolamide 22.3 mg-timolol 6.8 1 drp ophthalmic (eye) BID 06/07/21 07/21/24 mg/mL eye drops multivitamin 1 tab PO BEDTIME 06/07/21 07/21/24 aspirin 81 mg tablet,delayed 81 mg PO BEDTIME 12/09/22 07/21/24 release brimonidine 0.15 % eye drops 1 drp ophthalmic (eye) BID 12/09/22 07/21/24 docusate sodium 100 mg capsule 200 mg PO DAILY PRN 08/05/23 07/21/24 pantoprazole 40 mg tablet,delayed 40 mg PO DAILY 07/21/24 07/21/24 release ticagrelor 90 mg tablet (Brilinta) 90 mg PO BID 07/21/24 07/21/24 Previous Rx's ?Medication ?Instructions ?Recorded acetaminophen 500 mg tablet 500 mg PO Q6H PRN pain or fever 01/30/21 (Tylenol Extra Strength) #20 tabs blood sugar diagnostic (FreeStyle #150 natalee 08/05/22 Lite Strips) 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 meter (FreeStyle #1 ea 08/05/22 [place] Lite kit) lancets 28 gauge (FreeStyle #100 natalee 08/05/22 Lancets) hospital bed #1 ea 01/02/23 HOSPITAL BED #1 ea 01/07/23 diabetic shoe lift #1 ea 03/14/23 diabetic shoes #2 ea 03/14/23 pen needle, diabetic 32 gauge x #400 ea 05/07/23 (BD Martina 2nd Gen Pen Needle) nicotine 14 mg/24 hr daily 1 patch transdermal DAILY #28 ea 06/27/23 transdermal patch 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,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,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 #1 ea 11/03/23 (Dexcom G6 [employer]) insulin degludec 100 unit/mL (3 20 unit (0.2 mL) subcut BEDTIME 11/13/23 mL) subcutaneous pen #15 mL insulin lispro 100 unit/mL 6 unit (0.06 mL) subcut TIDAC #15 11/13/23 subcutaneous pen (Humalog KwikPen mL (U-100) Insulin) dulaglutide 3 mg/0.5 mL 3 mg (0.5 mL) subcut PONCE@0900 4 05/20/24 subcutaneous pen injector weeks #2 mL furosemide 40 mg tablet 40 mg PO DAILY #30 tabs 06/15/24 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 transmitter (Dexcom #1 ea 07/15/24 G6 Transmitter device) amlodipine 10 mg tablet 10 mg PO BEDTIME #90 tabs 07/31/24 gabapentin 300 mg capsule 300 mg PO BEDTIME #90 caps 08/05/24 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 sensor (Dexcom G6 #3 ea 08/25/24 Sensor device) rosuvastatin 40 mg tablet 40 mg PO DAILY #90 tabs 09/04/24 isosorbide mononitrate 30 mg 30 mg PO ONCE #90 tabs 09/10/24 tablet,extended release 24 hr metoprolol succinate 25 mg 50 mg (2 x 25 mg) PO DAILY #90 tabs 09/10/24 tablet,extended release 24 hr Allergies Allergy/AdvReac Type Severity Reaction Status Date / Time prednisone Allergy Unknown Unknown Verified 09/14/24 19:08 amoxicillin (From Augmentin) AdvReac Intermediate Nausea and Verified 07/16/24 11:26 Vomiting clavulanic acid (From AdvReac Intermediate Nausea and Verified 07/16/24 11:26 Augmentin) Vomiting Review of Systems Constitutional: Constitutional: Denies body ache(s), Denies chills, Denies fever(s), Denies frequent falls, Denies headache(s), Reports malaise and Reports weakness Eyes: Eyes: Denies blurry vision ENT: Denies dizziness, Denies dry mouth, Denies headache(s) and Denies epistaxis Cardiovascular: Cardiovascular: Denies chest pain and Denies dyspnea on exertion Respiratory: Respiratory: Denies cough and Denies dyspnea on exertion Gastrointestinal: Gastrointestinal: Denies abdominal pain, Denies nausea and Denies vomiting Genitourinary: Genitourinary: Denies oliguria Musculoskeletal: Musculoskeletal: Denies back pain Integumentary/Breasts: Skin/Breast: Denies rash Neurologic: Denies dizziness, Denies frequent falls, Denies headache(s) and Reports weakness PMFSH Past Medical History Medical History CHF (congestive heart failure) Aortic stenosis PAD (peripheral artery disease) Heel ulcer Tobacco abuse Impacted cerumen of both ears Epidermoid cyst of skin of cheek Mass of face Allergic rhinitis Trigger finger, right middle finger Fracture of distal end of left radius with routine healing Superficial abrasion Pneumonia due to COVID-19 virus Acute hypoxemic respiratory failure due to COVID-19 Distal radius fracture, right Renal insufficiency Trigger finger, right middle finger Respiratory tract infection Preoperative clearance Iliac artery stenosis, 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 History of renal calculi Compression fracture of L1 lumbar vertebra Infective endocarditis Glaucoma Left carotid stenosis GERD (gastroesophageal reflux disease) Pulmonary nodule Cardiomyopathy Congestive heart failure Overweight (BMI 25.0-29.9) Carotid artery stenosis PVD (peripheral vascular disease) Dyslipidemia Hypertension CAD (coronary artery disease) Diabetic retinopathy associated with type 2 diabetes mellitus Diabetic polyneuropathy associated with type 2 diabetes mellitus CKD stage 3 due to type 2 diabetes mellitus Diabetic 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 diabetes mellitus 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 Surgical History Hx of shoulder surgery Hx of coronary artery bypass graft Hx of cataract removal with insertion of prosthetic lens Hx of tonsillectomy Hx of appendectomy Hx of arthroscopy of right knee Family History Family History Father Stomach cancer Mother Diabetes Brother Prostate abscess Social History Social History Household Members: Spouse Housing: Apartment Do you presently have visiting nurse or other home services: Yes Alcohol intake: never Patient Tobacco Use Status: Never used Tobacco Tobacco use type: Cigarette Cigarette Packs Per Day: 0.25 Cigarettes Per Day: 3 Years Smoked: 65 e-Cigarette/Vaping Use: Never Used Second Hand Smoke Exposure: Yes Advance Directives: Yes Advance Directives on File: Yes Advance Directives Date on File: 06/08/21 service: No Current occupational status: 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 Cognitive needs: No Hearing needs: No Vision needs: No Physical Exam ED Vital Signs: Vital Signs - 24 hr 09/14/24 19:07 09/14/24 20:52 09/14/24 21:54 Temperature 98.3 F 97.4 F 97.4 F Pulse Rate 68 71 67 Respiratory Rate 18 20 14 Blood Pressure 104/44 L 115/55 L 89/32 L Pulse Oximetry 99 96 100 Oxygen Delivery Method Nasal Cannula Nasal Cannula Room Air Oxygen Flow Rate 2 09/14/24 22:05 09/15/24 00:38 Temperature 97.7 F Pulse Rate 68 70 Respiratory Rate 14 16 Blood Pressure 135/42 L 142/53 H Pulse Oximetry 100 98 Oxygen Delivery Method Nasal Cannula Room Air Oxygen Flow Rate 2 BMI result Body Mass Index 30.2 Const General: healthy appearing, comfortable, no acute distress, alert and awake Nutritional Appearance: well nourished Orientation/consciousness: patient oriented x3 HENMT Head: Yes normocephalic and Yes atraumatic Eyes Eyelids: Yes eyelids normal Conjunctivae: conjunctivae normal Sclerae: sclerae normal Corneas: corneas normal Pupils: Equal, round and reactive pupils present EOM: EOMs intact bilaterally Neck Neck: Yes full ROM Resp Effort & Inspection: normal respiratory effort, able to speak in complete sentences, no audible wheezes and not labored Auscultation: clear to auscultation bilaterally Cardio Rate: regular rate Rhythm: regular rhythm GI Inspection: No distended Palpation (GI): Soft to palpation, not firm, nontender, no guarding and not rigid Skin General skin exam: no rashes or lesions noted Neuro General: patient oriented x3 Cranial nerves: Yes CN's II-XII intact bilaterally, Yes Equal, round and reactive pupils present and Yes Bilaterally intact EOM present Cognition (Neuro): normal cognition Extrem Other: Moving all extremities well without any obvious deformities Medications Administered Discontinued Medications Generic Name Dose Route Start Last Admin Trade Name Freq PRN Reason Stop Dose Admin Sodium Chloride 1,000 mls @ 999 mls/hr 09/14/24 22:30 09/15/24 00:10 Ns IV 09/14/24 23:30 Infused .Q1H1M AMARILIS Infusion Medical Decision Making Medical Decision Making [facility] Narrative: 79-year-old male presents for evaluation of weakness. He was reportedly hypotensive at home. I was asked to evaluate the patient by nursing staff as the patient had a low blood pressure reading of 89/32. When I went to evaluate the patient, his blood pressure was cycle than it had increased to 135/42. The patient did have a period of bigeminy on the monitor which resolved when his blood pressure improved. His EKG shows a normal sinus rhythm with a rate of [address] segment elevation [place]. The patient denies any pain, his labs are significant for an DEAN on top of chronic kidney disease. He does have a mild normocytic anemia with a hemoglobin of 10.3 and a hematocrit of 30.0. Urinalysis is clear. The patient will be admitted to the medical service for DEAN. He had received a L of IV fluids in his blood pressure improved. There is no infectious signs or symptoms Differential Diagnosis Differential Diagnoses: The differential diagnosis associated with the presentation includes Failure to thrive DEAN Dehydration Orthostasis Admission/Observation Consideration of admission/observation: Escalation of care including admission/observation considered Lab Data [facility] Lab Attestation statement: I reviewed the patient's lab results. As above 09/14/24 20:09 09/14/24 20:09 Labs: Lab Results 09/14/24 09/14/24 09/14/24 Range/Units 20:09 22:43 22:52 WBC 8.5 (4.8-10.8) X10*3/uL RBC 3.26 L (4.60-5.80) X10*6/uL Hgb 10.3 L (14.0-18.0) g/dl Hct 30.0 L (42.0-52.0) % MCV 92.0 (80.0-98.0) fL MCH 31.6 (27.0-33.0) pg MCHC 34.3 (31.0-36.0) g/dl RDW 13.8 (11.0-16.0) % Plt Count 179 (160-400) X10*3/uL MPV 10.2 (9.4-12.4) fL Immature Gran % (Auto) 0.2 (0.0-0.4) % Neut % (Auto) 58.0 (45-73) % Lymph % (Auto) 25.2 (20-40) % [place] % (Auto) 10.9 (2-11) % Eos % (Auto) 4.9 H (0-4) % Baso % (Auto) 0.8 (0-2) % Lymph # (Auto) 2.2 (1.2-4.9) X10*3/uL [place] # (Auto) 0.9 (0.1-1.2) X10*3/uL Eos # (Auto) 0.4 (0.0-0.4) X10*3/uL Baso # (Auto) 0.1 (0.0-0.2) X10*3/uL Abs Immat Gran (auto) 0.02 (0.00-0.03) X10*3/uL Absolute Neuts (auto) 4.9 (2.0-8.3) x10*3/uL Absolute Nucleated RBC 0.000 (0.0-0.012) X10*3/uL Nucleated RBC % (auto) 0.0 (0.0-0.2) /100WBC PT 11.4 (10.9-12.4) SEC INR 1.0 (0.9-1.1) Sodium 141 (135-145) mmol/L Potassium 4.1 (3.3-5.1) mmol/L Chloride 105 (96-108) mmol/L Carbon Dioxide 26 (22-29) mmol/L Anion Gap 14 (12-20) BUN 56 H (9-16) mg/dL Creatinine 2.51 H (0.5-1.4) mg/dL Estim Creat Clear Calc 23.9 Estimated GFR 25 Random Glucose 126 H (60-115) mg/dL Lactic Acid 1.3 (0.5-2.0) mmol/L Calcium 9.2 D (8.4-10.2) mg/dL Magnesium 2.1 (1.6-2.6) mg/dL Troponin I High Sens 20.2 D (<3.5-35.0) ng/L B-Natriuretic Peptide 77 (<100) pg/mL TSH 2.03 (0.32-4.0) uIU/mL Urine Color Urine Appearance Urine pH (5.0-9.0) Ur Specific [place] (1.005-1.025) Urine Protein (Neg-Trace) mg/dL Urine Glucose (UA) (Negative) mg/dL Urine Ketones (Negative) mg/dL Urine Blood (Negative) Urine Nitrite (Negative) Ur Leukocyte Esterase (Negative) Urine RBC (0-2) /HPF Urine WBC (0-5) /HPF Ur Squamous Epith Cells (0-2) /HPF Urine Bacteria (None Seen) Hyaline Casts (0-2) /LPF Influenza Type A (PCR) NEGATIVE (Negative) Influenza Type B (PCR) NEGATIVE (Negative) RSV RNA Qual (PCR) NEGATIVE (Negative) SARS-CoV-2 RNA (RT-PCR) NEGATIVE (Negative) 09/15/24 Range/Units 00:36 WBC (4.8-10.8) X10*3/uL RBC (4.60-5.80) X10*6/uL Hgb (14.0-18.0) g/dl Hct (42.0-52.0) % MCV (80.0-98.0) fL MCH (27.0-33.0) pg MCHC (31.0-36.0) g/dl RDW (11.0-16.0) % Plt Count (160-400) X10*3/uL MPV (9.4-12.4) fL Immature Gran % (Auto) (0.0-0.4) % Neut % (Auto) (45-73) % Lymph % (Auto) (20-40) % [place] % (Auto) (2-11) % Eos % (Auto) (0-4) % Baso % (Auto) (0-2) % Lymph # (Auto) (1.2-4.9) X10*3/uL [place] # (Auto) (0.1-1.2) X10*3/uL Eos # (Auto) (0.0-0.4) X10*3/uL Baso # (Auto) (0.0-0.2) X10*3/uL Abs Immat Gran (auto) (0.00-0.03) X10*3/uL Absolute Neuts (auto) (2.0-8.3) x10*3/uL Absolute Nucleated RBC (0.0-0.012) X10*3/uL Nucleated RBC % (auto) (0.0-0.2) /100WBC PT (10.9-12.4) SEC INR (0.9-1.1) Sodium (135-145) mmol/L Potassium (3.3-5.1) mmol/L Chloride (96-108) mmol/L Carbon Dioxide (22-29) mmol/L Anion Gap (12-20) BUN (9-16) mg/dL Creatinine (0.5-1.4) mg/dL Estim Creat Clear Calc Estimated GFR Random Glucose (60-115) mg/dL Lactic Acid (0.5-2.0) mmol/L Calcium (8.4-10.2) mg/dL Magnesium (1.6-2.6) mg/dL Troponin I High Sens (<3.5-35.0) ng/L B-Natriuretic Peptide (<100) pg/mL TSH (0.32-4.0) uIU/mL Urine Color Yellow Urine Appearance Clear Urine pH 5.5 (5.0-9.0) Ur Specific [place] 1.025 (1.005-1.025) Urine Protein 30 (1+) H (Neg-Trace) mg/dL Urine Glucose (UA) Negative (Negative) mg/dL Urine Ketones Negative (Negative) mg/dL Urine Blood Negative (Negative) Urine Nitrite Negative (Negative) Ur Leukocyte Esterase Negative (Negative) Urine RBC 0-2 (0-2) /HPF Urine WBC 0-5 (0-5) /HPF Ur Squamous Epith Cells 0-2 (0-2) /HPF Urine Bacteria None Seen (None Seen) Hyaline Casts 3-5 (0-2) /LPF Influenza Type A (PCR) (Negative) Influenza Type B (PCR) (Negative) RSV RNA Qual (PCR) (Negative) SARS-CoV-2 RNA (RT-PCR) (Negative) Discharge Plan Discharge Clinical Impression: DEAN (acute kidney injury) Patient Disposition: Admitted As Inpatient
[2024-09-14] MEDS: 0.9 % Sodium Chloride 1,000 ML 999 ML IV (23:02)
[2024-09-14 23:03] LABS: Lactic Acid 1.3 mmol/L (0.5-2.0)
--- NOTE | 2024-09-14 23:13 | PC.NURSE ---
Additional labs drawn and sent for analysis. NS 0.9% 1L initiated per provider orders for hypotension & dehydration. Patient is alert & oriented.
[2024-09-14 23:24] LABS: TSH reflex Free T4 2.03 uIU/mL (0.32-4.0)
[2024-09-14 23:37] LABS: Influenza A PCR NEGATIVE (Negative); Influenza B PCR NEGATIVE (Negative); Resp Syncy Virus RNA Qual PCR NEGATIVE (Negative); SARS COV2 PCR INHOUSE NEGATIVE (Negative)
[2024-09-15] VITALS (11 sets, daily range): BP systolic 133–157; BP diastolic 49–92; PULSE 66–80; RESP 16–18; TEMP 36.2–36.6; O2SAT 96–98
--- NOTE | 2024-09-15 00:16 | PC.NURSE ---
update given to both daughter and .
[2024-09-15 00:55] LABS: Appearance Urine Clear; Color Urine Yellow; Glucose Urine UA Negative (Negative); Leukocyte Esterase Urine Negative (Negative); Nitrite Urine Negative (Negative); PH 5.5 (5.0-9.0); Specific Gravity - Urine 1.025 (1.005-1.025); UMIC TRIGGER UACC YES; Urine Blood Negative (Negative); Urine Ketones Negative (Negative); Urine Protein 30 (1+) mg/dL (Neg-Trace)
[2024-09-15 00:59] LABS: Bacteria Urine None Seen (None Seen); RBC Urine 0-2 /HPF (0-2); Squamous Epithelial Cell Urine 0-2 /HPF (0-2); WBC Urine 0-5 /HPF (0-5)
--- NOTE | 2024-09-15 02:08 | PM.IMHP ---
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 Patient is an 79-year-old male Lithuanian-speaking only with past medical history chronic kidney disease, coronary artery disease, hypertension, psoriasis, HFpEF, mild to severe aortic stenosis, insulin-dependent diabetes, glaucoma, recent cardiac stents x2 2 months prior at [facility], tobacco use, diabetic neuropathy and retinopathy, PVD, right leg deformity secondary to injury and surgery was brought in by ambulance for complaints of severe fatigue and shortness of breath. EMS did provide oxygen and patient is a known smoker with baseline pulse ox 92% and after 2 L pulse ox increased to 95%. Patient states that over the last 3 days when he attempted to stand often he felt dizzy and sat right back down to relieve symptoms. Patient denies any loss of consciousness or falls. Cardiac workup appears negative as troponins are flat, EKG normal sinus rhythm, QTC 433. Patient does have a III/ systolic murmur. Lactic acid normal and patient does not have leukocytosis. UA noted for proteinuria but negative for UTI. Chest x-ray negative for any acute findings including pneumonia, pleural effusion or pneumothorax. Incidentally patient's renal function indicating an DEAN on chronic kidney disease presentation and patient reports a loss of appetite over 3 days as well. Patient has been drinking copious amounts of water but his sodium is 141. Patient denies issues with low blood sugar and current blood glucose level is 126. Patient did add that his metoprolol was increased from 25-50 mg by [facility] and patient never increase the dose as he said it would cause him to . Emergency room provider ordered Lyme testing just has a screen noting patient has significant complain of fatigue overall. Patient denies any recent tick bites or pets in the home. Patient being admitted for DEAN currently on slow rate of IV fluids. Nephrology will be consulted. Also consulting Cardiology for near-syncope symptoms with known [id number] aortic stenosis last echo 11/2023. Review of Systems Review of Systems: Patient currently denies any chest pain, shortness of breath at rest or with exertion, abdominal pain, diarrhea or nausea and vomiting. Patient denies any recent low blood sugars. Patient denies any falls. Patient did report significant dizziness upon standing over the last 3 days and this resolved when patient sat down. Yes all other systems are reviewed and are negative [facility] Medical History CHF (congestive heart failure) Aortic stenosis PAD (peripheral artery disease) Heel ulcer Tobacco abuse Impacted cerumen of both ears Epidermoid cyst of skin of cheek Mass of face Allergic rhinitis Trigger finger, right middle finger Fracture of distal end of left radius with routine healing Superficial abrasion Pneumonia due to COVID-19 virus Acute hypoxemic respiratory failure due to COVID-19 Distal radius fracture, right Renal insufficiency Trigger finger, right middle finger Respiratory tract infection Preoperative clearance Iliac artery stenosis, 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 History of renal calculi Compression fracture of L1 lumbar vertebra Infective endocarditis Glaucoma Left carotid stenosis GERD (gastroesophageal reflux disease) Pulmonary nodule Cardiomyopathy Congestive heart failure Overweight (BMI 25.0-29.9) Carotid artery stenosis PVD (peripheral vascular disease) Dyslipidemia Hypertension CAD (coronary artery disease) Diabetic retinopathy associated with type 2 diabetes mellitus Diabetic polyneuropathy associated with type 2 diabetes mellitus CKD stage 3 due to type 2 diabetes mellitus Diabetic 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 diabetes mellitus 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 Cognitive capacity: Alert and orientated x3 Functional capacity: uses cane/walker Family History Father Stomach cancer Mother Diabetes Brother Prostate abscess Surgical History Hx of shoulder surgery Hx of coronary artery bypass graft Hx of cataract removal with insertion of prosthetic lens Hx of tonsillectomy Hx of appendectomy Hx of arthroscopy of right knee Social History Household Members: Spouse Housing: Apartment Do you presently have visiting nurse or other home services: Yes Alcohol intake: never Patient Tobacco Use Status: Current someday Tobacco user Tobacco use type: Cigarette Cigarette Packs Per Day: 0.25 Cigarettes Per Day: 3 Years Smoked: 65 Smoked in Last 30 Days: Yes e-Cigarette/Vaping Use: Never Used Second Hand Smoke Exposure: Yes Use of substances other than those prescribed or required for medical reasons: No Advance Directives: Yes Advance Directives on File: Yes Advance Directives Date on File: 06/08/21 Nutrition Risks: No Nutritional Risk service: No Current occupational status: 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 Cognitive needs: No Hearing needs: No Vision needs: No Ebola Risk: Travel/Contact With Anyone From Affected Area/s: No Has Patient Experienced Ebola Symptoms: No Meds Allergies Allergy/AdvReac Type Severity Reaction Status Date / Time prednisone Allergy Unknown Unknown Verified 09/14/24 19:08 amoxicillin (From Augmentin) AdvReac Intermediate Nausea and Verified 07/16/24 11:26 Vomiting clavulanic acid (From AdvReac Intermediate Nausea and Verified 07/16/24 11:26 Augmentin) Vomiting Home Medications ?Medication ?Instructions ?Recorded ?Confirmed ?Last Taken ?Type dorzolamide 22.3 mg-timolol 6.8 1 drp ophthalmic (eye) BID 06/07/21 07/21/24 03/22/23 06:00 History mg/mL eye drops multivitamin 1 tab PO BEDTIME 06/07/21 07/21/24 03/21/23 History aspirin 81 mg tablet,delayed 81 mg PO BEDTIME 12/09/22 07/21/24 03/21/23 History release brimonidine 0.15 % eye drops 1 drp ophthalmic (eye) BID 12/09/22 07/21/24 03/22/23 06:00 History docusate sodium 100 mg capsule 200 mg PO DAILY PRN 08/05/23 07/21/24 Unknown History pantoprazole 40 mg tablet,delayed 40 mg PO DAILY 07/21/24 07/21/24 Unknown History release ticagrelor 90 mg tablet (Brilinta) 90 mg PO BID 07/21/24 07/21/24 Unknown History Physical Exam Vital Signs and Narrative: Vital Signs: Last Vital Signs Temp 97.7 F 09/15/24 00:38 Pulse 70 09/15/24 00:38 Resp 16 09/15/24 00:38 BP 142/53 H 09/15/24 00:38 Pulse Ox 98 09/15/24 00:38 O2 Del Method Room Air 09/15/24 00:38 O2 Flow Rate 2 09/14/24 22:05 Oxygen Flow Rate 2 09/14/24 19:07 BMI result Body Mass Index 30.2 Alert and orientated X3, able to give good history. 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 Neuro: CN II-X11 intact, no deficits, visual acuity intact EYES: PERRLA, EOM intact, sclerae nonicteric, conjunctiva pink ENT: hearing intact, no issues with swallowing, uvula midline, lips moist, nares patent no epistaxis, some dentition missing Cardiac: S1 S2 RRR, III/ systolic murmur, no JVD, no edema in Lower ext Pulmonary: lungs clear to auscultation B Abdominal: BS active in all 4 quadrants, no guarding, tenderness, rebounding MSK: strength 5/5 upper and lower extremities , right leg is bowed externally : no CVA tenderness no bladder distension Extremities: no edema in lower extremities, PT and DP pulses palpable +2 Psych: mood stable, judgement and insight good Skin: Psoriatic patches bilateral lower extremities, flat with no excoriations. Onychomycosis in the nails. Results Labs 09/14/24 20:09 09/14/24 20:09 Labs: Laboratory Results - last 24 hr 09/14/24 09/14/24 09/14/24 20:09 22:43 22:52 MCV 92.0 MCH 31.6 MCHC 34.3 RDW 13.8 Plt Count 179 MPV 10.2 Immature Gran % (Auto) 0.2 Neut % (Auto) 58.0 Lymph % (Auto) 25.2 Worth % (Auto) 10.9 Eos % (Auto) 4.9 H Baso % (Auto) 0.8 Lymph # (Auto) 2.2 Worth # (Auto) 0.9 Eos # (Auto) 0.4 Baso # (Auto) 0.1 Abs Immat Gran (auto) 0.02 Absolute Neuts (auto) 4.9 Absolute Nucleated RBC 0.000 Nucleated RBC % (auto) 0.0 PT 11.4 INR 1.0 Anion Gap 14 Estim Creat Clear Calc 23.9 Estimated GFR 25 Random Glucose 126 H Lactic Acid 1.3 Calcium 9.2 D Magnesium 2.1 Troponin I High Sens 20.2 D B-Natriuretic Peptide 77 TSH 2.03 Urine Color Urine Appearance Urine pH Ur Specific [place] Urine Protein Urine Glucose (UA) Urine Ketones Urine Blood Urine Nitrite Ur Leukocyte Esterase Urine RBC Urine WBC Ur Squamous Epith Cells Urine Bacteria Hyaline Casts Influenza Type A (PCR) NEGATIVE Influenza Type B (PCR) NEGATIVE RSV RNA Qual (PCR) NEGATIVE SARS-CoV-2 RNA (RT-PCR) NEGATIVE 09/15/24 00:36 MCV MCH MCHC RDW Plt Count MPV Immature Gran % (Auto) Neut % (Auto) Lymph % (Auto) Worth % (Auto) Eos % (Auto) Baso % (Auto) Lymph # (Auto) Worth # (Auto) Eos # (Auto) Baso # (Auto) Abs Immat Gran (auto) Absolute Neuts (auto) Absolute Nucleated RBC Nucleated RBC % (auto) PT INR Anion Gap Estim Creat Clear Calc Estimated GFR Random Glucose Lactic Acid Calcium Magnesium Troponin I High Sens B-Natriuretic Peptide TSH Urine Color Yellow Urine Appearance Clear Urine pH 5.5 Ur Specific [place] 1.025 Urine Protein 30 (1+) H Urine Glucose (UA) Negative Urine Ketones Negative Urine Blood Negative Urine Nitrite Negative Ur Leukocyte Esterase Negative Urine RBC 0-2 Urine WBC 0-5 Ur Squamous Epith Cells 0-2 Urine Bacteria None Seen Hyaline Casts 3-5 Influenza Type A (PCR) Influenza Type B (PCR) RSV RNA Qual (PCR) SARS-CoV-2 RNA (RT-PCR) ECG Attestation: I personally reviewed and interpreted this ECG as follows: (Normal sinus rhythm QTC 433) Prior ECG tracings: available for review Imaging Radiologist's Impressions: Chest x-ray FINDINGS: The patient is mildly rotated to the right. There are postoperative changes of a median sternotomy. The cardiac silhouette is accentuated by the portable technique. The lungs are again noted to be hyperinflated. No focal infiltrate or consolidation. No pleural effusion or pneumothorax. IMPRESSION: 1. No acute disease. 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 Patient is an 79-year-old male Lithuanian-speaking only with past medical history chronic kidney disease, coronary artery disease, hypertension, psoriasis, HFpEF, mild to severe aortic stenosis, insulin-dependent diabetes, glaucoma, appendectomy, recent cardiac stents x2 2 months prior at [facility], tobacco use, diabetic neuropathy and retinopathy, PVD, right leg deformity secondary to injury and surgery is being admitted for significant fatigue over the last 3 days with evidence of DEAN on chronic kidney disease. Patient did report some near syncopal episodes with profound dizziness upon standing. Patient has been hydrating well. Patient believes it is related to his metoprolol. Patient does have [id number] aortic stenosis and last echo was 11/2023. DEAN -Nephrology consulted -Low rate IV fluids continue (HX CHF) -UA noted for proteinuria, negative for UTI -Will hold off ordering renal ultrasound as patient's renal function is close to baseline -Avoid hypotension -Avoid nephrotoxic meds Fatigue -Lyme panel sent per ED provider as a screening tool for fatigue -H/H stable, Adding iron panel, vitamin B12 and vitamin-D -No evidence of hypoglycemia Near-syncope -Orthostatics ordered Q 8 x 3 -Cardiology consulted -Noted history of [id number] aortic stenosis -No carotid bruit identified on exam, will hold off on carotid Dopplers -Echo ordered -TEDs HFpEF -No evidence of CHF exacerbation, patient presents euvolemic -BNP normal -Troponins negative -Will hold Lasix for now noting DEAN, await Nephrology and Cardiology review prior to resumption -Echo ordered -Daily weights, measure intake and output Ywaq-bn-wygxabzk aortic stenosis -Last echo 07/2024, echo ordered -Cardiology consulted -Telemetry Coronary artery disease with recent PCI and stents x2 June 2024 at [facility] -Continue statin, aspirin, beta-mary -Continue Brilinta if confirmed with Med rec conciliation Insulin-dependent diabetes with diabetic neuropathy and retinopathy -Sliding scale insulin ordered -Diabetic diet Hyperlipidemia -Continue statin Hypertension -Hold antihypertensives, await orthostatic -Cardiology consulted Glaucoma -Continue patient's home medications including dorzolamide and timolol Psoriasis Hydrocortisone cream b.i.d. p.r.n. DVT prophylaxis: Heparin subQ PPI prophylaxis: Not indicated Med rec pending Full Code status Quality Stroke Does the patient have a stroke diagnosis?: No Reason for No Anti-thrombotic by Day Two: N/A - Med Ordered VTE Prior VTE?: No VTE Risk Level:: Medical - moderate - high VTE Device Contraindication: N/A - Device Ordered VTE Drug Contraindication: N/A - Med Ordered
[2024-09-15] MEDS: Heparin Sodium,Porcine 5,000 UNIT/ML VIAL 5000 UNIT SUBCUT ×2 (02:45→14:02)
[2024-09-15] MEDS: 0.9 % Sodium Chloride 1,000 ML 75 ML IVCONT ×2 (03:04→23:16)
[2024-09-15 05:26] LABS: MANUAL DIFF FLAG NO
[2024-09-15 05:30] LABS: Basophils Percent Auto 0.5 % (0-2); Eosinophils Absolute Auto 0.4 X10*3/uL (0.0-0.4); Eosinophils Percent Auto 4.5 % (0-4); Hematocrit 29.7 % (42.0-52.0); Hemoglobin 9.8 g/dl (14.0-18.0); Imm Gran Abs Auto 0.02 X10*3/uL (0.00-0.03); Imm Gran Pct Auto 0.2 % (0.0-0.4); Lymphocytes Absolute Auto 2.5 X10*3/uL (1.2-4.9); Mean Corpuscular Hemoglobin 31.1 pg (27.0-33.0); Mean Corpuscular Volume 94.3 fL (80.0-98.0); Monocytes Absolute Auto 0.7 X10*3/uL (0.1-1.2); Monocytes Percent Auto 8.4 % (2-11); Neutrophils Absolute Auto 5.2 x10*3/uL (2.0-8.3); Neutrophils Percent Auto 58.4 % (45-73); Platelet Count 169 X10*3/uL (160-400); Red Blood Count 3.15 X10*6/uL (4.60-5.80); Red Cell Distribution Width 13.9 % (11.0-16.0); White Blood Count 8.8 X10*3/uL (4.8-10.8)
[2024-09-15 05:47] LABS: Alanine Aminotransferase 29 U/L (0-40); Albumin Level 3.8 g/dL (3.5-5.0); Alkaline Phosphatase 83 U/L (39-117); Anion Gap 15 (12-20); Aspartate Amino Transferase 24 U/L (5-37); Bilirubin Total 0.4 mg/dL (0.0-1.0); Blood Urea Nitrogen 51 mg/dL (9-16); Carbon Dioxide 23 mmol/L (22-29); Chloride 107 mmol/L (96-108); Creatinine Clr Calc Pharmacy 28.2; Estimated Glomerular Filt Rate 30; Glucose Random 241 mg/dL (60-115); Iron 63 mcg/dL (45-160); Percent Iron Saturation 24 % (15-50); Potassium 4.2 mmol/L (3.3-5.1); Sodium 141 mmol/L (135-145); Total Iron Binding Capacity 258 mcg/dL (228-428); Total Protein 6.7 g/dL (6.5-8.0); Unsaturated Iron Binding 195 ug/dL
[2024-09-15 06:12] LABS: Vitamin D 25-OH Total 23.1 ng/mL (>30)
[2024-09-15 06:20] LABS: Vitamin B12 673 pg/mL (200-900)
--- NOTE | 2024-09-15 07:00 | CA_ITS ---
Transthoracic Echocardiogram Patient (Last, First, Middle): Deyanira Vitale Lulo Gender: Male Date of : 1945 Age: 79 Procedure Date: 09/15/2024 Procedure Type: Transthoracic Echocardiogram Location: ER Height: 167.64 cm Weight: 84.82 kg BSA: 1.94 m2 Heart Rate: bpm BP: 136 / 55 mmHg Thermoplastic Technician: TO Referring MD: Denise Middleton HEAD ATHLETIC TRAINER/STRENGTH COACH- Symptoms: Near syncopal episodes, history heart failure Study Quality: Technically Difficult, contrast ECG Rhythm: Sinus Conclusions: - The left ventricular systolic function is normal. The calculated ejection fraction is 57% by biplane method. - There is severe septal asymmetric hypertrophy. - There is mild to moderate aortic valve stenosis. - There is moderate mitral annular calcification. Findings Procedure Information Contrast agent, definity, is being given per protocol without apparent complications. Left Ventricle Normal left ventricular cavity size. There is mildly increased left ventricular wall thickness. The left ventricular systolic function is normal. The calculated ejection fraction is 57% by biplane method. There is no evidence of regional wall motion abnormalities. Evidence suggests grade I (mild) diastolic dysfunction. There is severe septal asymmetric hypertrophy. Difficult to assess left ventricular hypertrophy due to poor endocardial definition. Right Ventricle Mildly increased right ventricular cavity size. There is normal right ventricular systolic function. Atria The left atrium is mildly dilated. The right atrium is normal in size. Aortic Valve There is moderate calcification of the aortic valve. There is mild to moderate aortic valve stenosis. The mean gradient is 24 mmHg. The aortic valve area is 1.51 cm2. There is trace (trivial) aortic valve regurgitation. Mitral Valve There is moderate mitral annular calcification. There is no mitral valve regurgitation. There is no mitral valve stenosis. Pulmonic Valve The pulmonic valve is likely normal. Tricuspid Valve There is no tricuspid valve regurgitation. Tricuspid regurgitation envelope is inadequate for calculation of right ventricular systolic pressure. Great Vessels The asc aorta is normal in size. Venous The inferior vena cava is normal in size and collapses greater than 50% with inspiration. Pericardium/Pleural There is no evidence of pericardial effusion. Prior Study Comparison No significant change compared to prior study dated: 12/15/2023. Measurements 2D Linear Measurements IVSd: 1.09 0.6-0.9/0.6-1.0 cm LVIDd: 5.53 3.9-5.3/4.2-5.9 cm LVIDd Index: 2.85 2.4-3.2/2.2-3.1 cm/m2 LVIDs: 3.39 2.0-3.6 cm LVPWd: 0.93 0.7-1.1 cm LV Mass: 272.24 67-162/88-224 g LV Mass Index: 140.33 43-95/49-115 g/m2 LVOT Diam: 2.20 3.0+(-)1.3 cm 2D Systolic Function EF 4C: 55.10 >55% EF 2C: 58.90 >55% EF BiP: 56.50 >55% Mitral Valve MV VTI: 0.39 MV Pk [place]: 1.44 MV Mn [place]: 0.80 MV Pk Grad: 8.00 MV Mn Grad: 3.00 MV Pk E: 0.89 MV PK A: 1.32 MV Decel Time: 275.00 E/A: 0.70 E'Lateral: 6.09 E'Medial: 3.48 E/E' Med: 25.50 E/E' Lat: 14.60 PHT: 80.00 MVA PHT: 2.75 MVA Continuity: 2.87 Decel [place]: 3.23 Aortic Valve AoV Pk [place]: 3.07 AoV Mn [place]: 2.32 AoV VTI: 0.74 AoV Pk Grad: 38.00 Aov Mn Grad: 24.00 SCOTT Cont.VTI: 1.51 LVOT LVOT Pk [place]: 1.06 LVOT Mn [place]: 0.74 LVOT VTI: 0.29 LVOT Pk Grad: 4.00 LVOT Mn Grad: 2.00 LVOT Diam: 2.20 LVOT Area: 3.80 Diastolic Function MV Pk E: 0.89 MV Pk A: 1.32 E/A: 0.70 E'Medial: 3.48 E/E' Med: 25.50 E' Laterial: 6.09 E/E' Lat: 14.60 Right Ventricle TAPSE (mm): 20.80 TVS' [place]: 11.60 Tricuspid Valve RA Press: 3.00 Great Vessels Aorta Sinus of Valsalva: 3.37 2.0-3.5 cm Ao Asc: 3.00 2.1-3.4 cm Updated in Other Vendor System with Status of Final Johnny Lombardo MD electronically signed on 09/15/2024 12:14:52 PM with status of Final
[2024-09-15 07:16] LABS: Glucose, Whole Blood 243 mg/dL (60-115)
[2024-09-15] MEDS: Insulin Lispro 100 UNIT/ML 3 ML VIAL SUBCUT ×4 (07:30→20:57)
--- NOTE | 2024-09-15 08:05 | PM.CNNEP ---
History of Present Illness Reason for Consult Consult date: 09/15/24 Chief Complaint Chief complaint: Weakness History of Present Illness Narrative: Patient is an 79 y/o male with past medical history chronic kidney disease, coronary artery disease, hypertension, psoriasis, HFpEF, mild to moderate aortic stenosis, insulin-dependent diabetes, glaucoma, recent cardiac stents x2 2 months prior at [facility], tobacco use, diabetic neuropathy and retinopathy, PVD, right leg deformity secondary to injury and surgery. 09/14 evening presented with severe fatigue and shortness of breath. Nephrology consulted for DEAN Creatinine at baseline ~1.5 2.5 on presentation, 09/14 a.m. is 2.13, pt received IVF pt states he feels himself this morning. Denies severe faitgue, shortness of breath. States he feels much better. States he is not sure what happened. Does note he thinks he was not eating/drinking as he should have in the heat. His outpatient lasix is being held. Review of Systems Constitutional: Denies fatigue and Denies weakness Cardiovascular: Denies chest pain, Denies leg edema, Denies lightheadedness and Denies dyspnea Respiratory: Denies dyspnea Gastrointestinal: Denies abdominal pain, Denies constipation, Denies diarrhea, Denies nausea and Denies vomiting Genitourinary: Denies hematuria, Denies oliguria, Denies dysuria and Denies flank pain Musculoskeletal: Denies arthralgias and Denies joint swelling Skin/Breast: Denies rash Denies weakness Endocrine: Denies fatigue PMFSH Past Medical History Medical History CHF (congestive heart failure) Aortic stenosis PAD (peripheral artery disease) Heel ulcer Tobacco abuse Impacted cerumen of both ears Epidermoid cyst of skin of cheek Mass of face Allergic rhinitis Trigger finger, right middle finger Fracture of distal end of left radius with routine healing Superficial abrasion Pneumonia due to COVID-19 virus Acute hypoxemic respiratory failure due to COVID-19 Distal radius fracture, right Renal insufficiency Trigger finger, right middle finger Respiratory tract infection Preoperative clearance Iliac artery stenosis, 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 History of renal calculi Compression fracture of L1 lumbar vertebra Infective endocarditis Glaucoma Left carotid stenosis GERD (gastroesophageal reflux disease) Pulmonary nodule Cardiomyopathy Congestive heart failure Overweight (BMI 25.0-29.9) Carotid artery stenosis PVD (peripheral vascular disease) Dyslipidemia Hypertension CAD (coronary artery disease) Diabetic retinopathy associated with type 2 diabetes mellitus Diabetic polyneuropathy associated with type 2 diabetes mellitus CKD stage 3 due to type 2 diabetes mellitus Diabetic 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 diabetes mellitus shelter (current) use of insulin Family History Family History Father Stomach cancer Mother Diabetes Brother Prostate abscess Surgical History Surgical History Hx of shoulder surgery Hx of coronary artery bypass graft Hx of cataract removal with insertion of prosthetic lens Hx of tonsillectomy Hx of appendectomy Hx of arthroscopy of right knee Social History Social History Household Members: Spouse Housing: Apartment Do you presently have visiting nurse or other home services: No Alcohol intake: never Patient Tobacco Use Status: Never used Tobacco Tobacco use type: Cigarette Cigarette Packs Per Day: 0.25 Cigarettes Per Day: 3 Years Smoked: 65 e-Cigarette/Vaping Use: Never Used Second Hand Smoke Exposure: Yes Advance Directives Date on File: 06/08/21 service: No Current occupational status: 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 Cognitive needs: No Hearing needs: No Vision needs: No Travel History Ebola Risk: Travel/Contact With Anyone From Affected Area/s: No Has Patient Experienced Ebola Symptoms: No Meds Allergies Allergy/AdvReac Type Severity Reaction Status Date / Time prednisone Allergy Unknown Unknown Verified 09/14/24 19:08 amoxicillin (From Augmentin) AdvReac Intermediate Nausea and Verified 07/16/24 11:26 Vomiting clavulanic acid (From AdvReac Intermediate Nausea and Verified 07/16/24 11:26 Augmentin) Vomiting Active Medications: Current Medications Acetaminophen (Acetaminophen 325 Mg Tablet) 650 mg PO Q6H PRN PRN Reason: Pain, Mild 1-3,fever,headache Albuterol/Ipratropium (Albuterol/Iprat 2.5/0.5mg 3 Ml Ampul.Neb) 3 ml INHALE Q4H PRN PRN Reason: Shortness of Breath/Wheezing Aspirin (Aspirin Enteric Coated 81 Mg Tablet.) 81 mg PO BEDTIME [facility] Atorvastatin Calcium (Atorvastatin Calcium 80 Mg Tablet) 80 mg PO DAILY [facility] Betamethasone Dipropion Augmented (Betamethasone Dip Aug 0.05% Cr 15 Gm Tube) 1 appl TOPICAL BID PRN; Protocol PRN Reason: Rash Brimonidine Tartrate (Brimonidine Tartrate 0.2% Oph 5 Ml Bottle) 1 drop EYE-BOTH BID [facility] Calcium Carbonate (Calcium Carbonate 750 Mg Tab.Chew) 750 mg PO Q4H PRN PRN Reason: Heartburn Dextrose (Dextrose 50 % 25 Gm/50 Ml Syringe) 25 gm IVPUSH Q15M PRN; Protocol PRN Reason: per Hypoglycemia Standing Ord. Docusate Sodium (Docusate Sodium 100 Mg Capsule) 200 mg PO DAILY PRN PRN Reason: Constipation Dorzolamide/Timolol (Dorzolamide/Timolo 2.23%/0.68% 10 Ml Drbtl) 1 drop EYE-BOTH BID [facility] Gabapentin (Gabapentin 300 Mg Capsule) 300 mg PO BEDTIME [facility] Glucose (Glucose Gel 15 Gm Gel..Gram.) 15 gm PO Q15M PRN; Protocol PRN Reason: per Hypoglycemia Standing Ord. Heparin Sodium (Porcine) (Heparin Sodium,Porcine 5,000 Unit/Ml Vial) 5,000 unit SUBCUT Q12H [facility] Last Admin: 09/15/24 14:02 Dose: 5,000 unit Sodium Chloride (Ns) 1,000 mls @ 75 mls/hr IVCONT .[id number] [facility] Last Infusion: 09/15/24 16:40 Dose: 75 mls/hr Insulin Human Lispro (Insulin Lispro 100 Unit/Ml 3 Ml Vial) 0 unit SUBCUT QIDACHS [facility]; Protocol Last Admin: 09/15/24 16:27 Dose: 2 unit Isosorbide Mononitrate (Isosorbide Mononitrate 30 Mg Tab.Er.24h) 30 mg PO DAILY [facility]; Protocol Latanoprost (Latanoprost 0.005 % Ophth Karla 2.5 Ml Drops) 1 drop EYE-BOTH BEDTIME [facility] Magnesium Hydroxide (Milk Of Magnesia 30 Ml Oral.Susp) 30 ml PO DAILY PRN PRN Reason: Constipation Melatonin (Melatonin 3 Mg Tablet) 6 mg PO BEDTIME PRN PRN Reason: Insomnia Metoprolol Succinate (Metoprolol Succinate Er 25 Mg Tab.Er.24h) 25 mg PO DAILY [facility]; Protocol Multivitamins/Vitamin C (Multivitamin Tablet) 1 tab PO BEDTIME [facility] Nicotine (Nicotine 14 Mg Patch.Td24) 14 mg TRANSDERMA DAILY [facility] Last Admin: 09/15/24 09:59 Dose: 14 mg Non-Formulary Medication (Dulaglutide) 3 mg SUBCUT WE@09 [facility] Omeprazole (Omeprazole 20 Mg Capsule.Dr) 20 mg PO DAILY@06 [facility] Polyethylene Glycol (Polyethylene Glycol 3350 17 Gm Powd.Pack) 17 gm PO DAILY PRN PRN Reason: Constipation Senna (Sennosides 8.6 Mg Tablet) 17.2 mg PO BEDTIME [facility] Sodium Chloride (0.9 % Sodium Chloride Flush 3 Ml Syringe) 3 ml IVFLUSH QSHIFT [facility] Last Admin: 09/15/24 13:34 Dose: Not Given Ticagrelor (Ticagrelor 90 Mg Tablet) 90 mg PO BID [facility] Timolol Maleate (Timolol Maleate 0.5 % Oph Karla 5 Ml Drbtl) 1 drop EYE-BOTH BID [facility] Home Medications ?Medication ?Instructions ?Recorded ?Confirmed ?Last Taken ?Type dorzolamide 22.3 mg-timolol 6.8 1 drp ophthalmic (eye) BID 06/07/21 09/15/24 03/22/23 06:00 History mg/mL eye drops multivitamin 1 tab PO BEDTIME 06/07/21 09/15/24 03/21/23 History aspirin 81 mg tablet,delayed 81 mg PO BEDTIME 12/09/22 09/15/24 03/21/23 History release brimonidine 0.15 % eye drops 1 drp ophthalmic (eye) BID 12/09/22 09/15/24 03/22/23 06:00 History docusate sodium 100 mg capsule 200 mg PO DAILY PRN Constipation 08/05/23 09/15/24 Unknown History pantoprazole 40 mg tablet,delayed 40 mg PO DAILY 07/21/24 09/15/24 Unknown History release betamethasone, augmented 0.05 % 1 appl topical BID PRN Rash 09/15/24 09/15/24 Unknown History topical cream dulaglutide 3 mg/0.5 mL 3 mg subcut WE@0900 09/15/24 09/15/24 Unknown History subcutaneous pen injector isosorbide mononitrate 30 mg 30 mg PO DAILY 09/15/24 09/15/24 Unknown History tablet,extended release 24 hr latanoprost 0.005 % eye drops 1 drp ophthalmic (eye) BEDTIME 09/15/24 09/15/24 Unknown History metoprolol succinate 25 mg 25 mg PO DAILY 09/15/24 09/15/24 Unknown History tablet,extended release 24 hr risankizumab-rzaa 150 mg/mL 150 mg subcut [id number] 09/15/24 09/15/24 Unknown History subcutaneous pen injector (Skyrizi) ticagrelor 90 mg tablet (Brilinta) 90 mg PO BID 09/15/24 09/15/24 Unknown History timolol maleate 0.5 % eye drops 1 drp ophthalmic (eye) BID 09/15/24 09/15/24 Unknown History Physical Exam Vital Signs: Last Vital Signs Temp 97.4 F 09/15/24 19:42 Pulse 71 09/15/24 19:42 Resp 18 09/15/24 19:42 BP 149/74 H 09/15/24 19:42 Pulse Ox 96 09/15/24 19:42 O2 Del Method Room Air 09/15/24 19:42 O2 Flow Rate 2 09/14/24 22:05 Oxygen Flow Rate 2 09/14/24 19:07 BMI result Body Mass Index 30.2 Const General: no acute distress, alert and awake Resp Effort & Inspection: normal respiratory effort and able to speak in complete sentences Auscultation: clear to auscultation bilaterally Cardio Rate: regular rate Rhythm: regular rhythm Heart sounds: S1 normal heart sound present and S2 normal heart sound present GI Palpation (GI): Soft to palpation and nontender General: Yes no CVA tenderness Back/Spine/Pelvis Back: no CVA tenderness Skin Rashes: no rashes Extrem General: No edema Results Lab Results 09/15/24 04:16 09/15/24 04:16 Lab results: Chemistry 09/14/24 09/15/24 20:09 04:16 Sodium 141 141 Potassium 4.1 4.2 Carbon Dioxide 26 23 BUN 56 H 51 H Creatinine 2.51 H 2.13 H Calcium 9.2 D 9.0 Hematology 09/14/24 09/15/24 20:09 04:16 WBC 8.5 8.8 Hgb 10.3 L 9.8 L Plt Count 179 169 Urinalysis 09/15/24 00:36 Urine Color Yellow Urine Appearance Clear Urine pH 5.5 Ur Specific [place] 1.025 Urine Protein 30 (1+) H Urine Glucose (UA) Negative Urine Ketones Negative Urine Blood Negative Urine Nitrite Negative Ur Leukocyte Esterase Negative Urine RBC 0-2 Urine WBC 0-5 Ur Squamous Epith Cells 0-2 Hyaline Casts 3-5 Urine Studies 09/15/24 14:00 Urine Creatinine 39.99 Assessment and Plan (1) DEAN (acute kidney injury): Status: Acute Plan DEAN likely tubular injury from hypovolemia/dehydration in setting of diuretic use given significant improvement in creatinine with fluid resuscitation recommend continue to encourage oral hydration recommend continuing to hold lasix until patient is seen as outpatient post discharge anticipate continued improvement in creatinine with above plan will arrange for follow up with outpatient mussel opener in [address] Marsh Procedures Date of Service Date of Service: 09/15/24
[2024-09-15] MEDS: Nicotine 14 MG PATCH.TD24 TRANSDERMA (09:59)
--- NOTE | 2024-09-15 10:21 | MHC.CM.PN ---
Addendum entered by Lorena Rodney 09/15/24 10:30: Patient is active with [facility]. Original Note: CM attempted to meet with Patient at bedside but he was sleeping soundly and did not waken to his name. CM spoke with /HCP/Abigail @[phone] and addressed IMM with her (original will be mailed certified letter to and a copy will be placed on the chart). Patient lives in an apartment with his and 14 year old Grandson, ( has Custody of the child). is working toward getting a [employer] and Patient will likely benefit from a PT Eval to assist with disposition. CM has initiated and will follow for dc planning. PCP is Dr. Clements and family will transport to home at time of dc.
[2024-09-15 12:41] LABS: Glucose, Whole Blood 218 mg/dL (60-115)
--- NOTE | 2024-09-15 13:48 | PHA.MEDREC ---
Addendum entered by Rae Weiss RPh 09/15/24 16:43: Clopidogrel was also removed from home meds as it was discontinued in june when the brilinta was started Addendum entered by Rae Weiss RPh 09/15/24 16:38: reviewed by [facility] also of note, pt and unable to confirm if he is still taking Tresiba and it has been greater than 8 months since last fill so it was left off of the home med list. Original Note: Pharmacy Consult ? Medication Reconciliation Pharmacy has completed the medication reconciliation. Patient and didn't remember what medications patient takes. could only confirm Trulicity 3 mg every Friday, Insulin lispro 10-12 units at TID per sliding scale. Utilized claims to confirm all other medications.
[2024-09-15 14:28] LABS: Creatinine Urine 39.99 mg/dL; Protein/Creatinine Ratio, Ur 0.88 (<0.2); Total Protein Urine Random 35 mg/dL (<12)
[2024-09-15 16:08] LABS: Glucose, Whole Blood 186 mg/dL (60-115)
--- NOTE | 2024-09-15 16:20 | PM.EVENT ---
Event Note Date of Service: 09/15/24 Event Note: Patient seen and examined by hospitalist service in this morning Seen and examined again given hydration and heather improving ,his symptoms seems improving also. Physical exam assessment and plan as per H and P hold diuretics will stop ivf ,moniter renal function/electrolytes Time Spent With Patient Time: Total time managing care of this patient today ____ minutes.
[2024-09-15 20:32] LABS: Glucose, Whole Blood 177 mg/dL (60-115)
[2024-09-15] MEDS: Dorzolamide/Timolo 2.23%/0.68% 10 ML DRBTL 1 DROP EYE-BOTH (20:59)
[2024-09-15] MEDS: Aspirin Enteric Coated 81 MG TABLET.DR PO (21:01)
[2024-09-15] MEDS: Sennosides 8.6 MG TABLET 17.2 MG PO (21:01)
[2024-09-15] MEDS: Gabapentin 300 MG CAPSULE PO (21:01)
[2024-09-15] MEDS: Ticagrelor 90 MG TABLET PO (21:01)
[2024-09-15] MEDS: Multivitamin TABLET 1 TAB PO (21:02)
[2024-09-15] MEDS: Brimonidine Tartrate 0.2% Oph 5 ML BOTTLE 1 DROP EYE-BOTH (21:07)
[2024-09-15] MEDS: timoloL maleate 0.5 % Oph Sol 5 ML DRBTL 1 DROP EYE-BOTH (21:07)
[2024-09-15] MEDS: Latanoprost 0.005 % Ophth Sol 2.5 ML DROPS 1 DROP EYE-BOTH (21:07)
[2024-09-16] MEDS: Heparin Sodium,Porcine 5,000 UNIT/ML VIAL 5000 UNIT SUBCUT (01:47)
[2024-09-16 03:34] VITALS: BP 138/67; PULSE 77; RESP 18; TEMP 36.3; O2SAT 95
[2024-09-16] MEDS: Omeprazole 20 MG CAPSULE.DR PO (05:52)
[2024-09-16 06:00] VITALS: BP 145/66; PULSE 65
[2024-09-16 06:43] VITALS: BP 150/58; PULSE 71
[2024-09-16 06:45] VITALS: BP 147/67; PULSE 73
[2024-09-16 07:21] LABS: Glucose, Whole Blood 158 mg/dL (60-115)
[2024-09-16] MEDS: Insulin Lispro 100 UNIT/ML 3 ML VIAL SUBCUT ×2 (07:29→11:45)
[2024-09-16] MEDS: Nicotine 14 MG PATCH.TD24 TRANSDERMA (07:29)
[2024-09-16] MEDS: Ticagrelor 90 MG TABLET PO (07:31)
[2024-09-16] MEDS: Atorvastatin Calcium 80 MG TABLET PO (07:31)
[2024-09-16] MEDS: Isosorbide Mononitrate 30 MG TAB.ER.24H PO (07:31)
[2024-09-16] MEDS: Metoprolol Succinate ER 25 MG TAB.ER.24H PO (07:31)
[2024-09-16] MEDS: Dorzolamide/Timolo 2.23%/0.68% 10 ML DRBTL 1 DROP EYE-BOTH (07:32)
[2024-09-16] MEDS: timoloL maleate 0.5 % Oph Sol 5 ML DRBTL 1 DROP EYE-BOTH (07:32)
[2024-09-16] MEDS: Betamethasone Dip Aug 0.05% Cr 15 GM TUBE 1 APPL TOPICAL (07:32)
[2024-09-16] MEDS: Brimonidine Tartrate 0.2% Oph 5 ML BOTTLE 1 DROP EYE-BOTH (07:32)
[2024-09-16 07:58] VITALS: BP 128/56; PULSE 70; RESP 18; TEMP 36.4; O2SAT 98
[2024-09-16 10:09] LABS: Lyme Abs Screen <0.90 index
--- NOTE | 2024-09-16 10:53 | MHC.CM.PN ---
Per MD rounds patient medically cleared for dc home w/ resumption of [facility] services. Family will transport home ~1pm. Patient and RN aware.
[2024-09-16 11:09] LABS: Glucose, Whole Blood 288 mg/dL (60-115)
[2024-09-16 12:00] VITALS: BP 125/79; PULSE 74; RESP 18; TEMP 36.1; O2SAT 100
--- NOTE | 2024-09-16 12:15 | PM.DS ---
DS: Providers Provider Date of Service: 09/16/24 Date of admission: 09/15/24 01:14 Date of discharge: 09/16/24 Primary care physician: Marcia Clements MD Consults: 09/15/24 02:14 Consult to Nephrology Routine Consulting Provider: [facility] Reason for consultation: DEAN on CKD Has provider been notified: No Attending physician on discharge: Lluvia Baker Discharging clinician: Lluvia Baker DS: Diagnosis Discharge Diagnosis (1) DEAN (acute kidney injury): Status: Acute DS: Summary Hospital Course Hospital Course: HPI:79-year-old male Croatian-speaking only with past medical history chronic kidney disease, coronary artery disease, hypertension, psoriasis, HFpEF, mild to severe aortic stenosis, insulin-dependent diabetes, glaucoma, recent cardiac stents x2 2 months prior at [employer] [facility], tobacco use, diabetic neuropathy and retinopathy, PVD, right leg deformity secondary to injury and surgery was brought in by ambulance for complaints of severe fatigue and shortness of breath. EMS did provide oxygen and patient is a known smoker with baseline pulse ox 92% and after 2 L pulse ox increased to 95%. Patient states that over the last 3 days when he attempted to stand often he felt dizzy and sat right back down to relieve symptoms. Patient denies any loss of consciousness or falls. Cardiac workup appears negative as troponins are flat, EKG normal sinus rhythm, QTC 433. Patient does have a III/ systolic murmur. Lactic acid normal and patient does not have leukocytosis. UA noted for proteinuria but negative for UTI. Chest x-ray negative for any acute findings including pneumonia, pleural effusion or pneumothorax. Incidentally patient's renal function indicating an DEAN on chronic kidney disease presentation and patient reports a loss of appetite over 3 days as well. Patient has been drinking copious amounts of water but his sodium is 141. Patient denies issues with low blood sugar and current blood glucose level is 126. Patient did add that his metoprolol was increased from 25-50 mg by [employer] [employer] [facility] [employer] and patient never increase the dose as he said it would cause him to . Emergency room provider ordered Lyme testing just has a screen noting patient has significant complain of fatigue overall. Patient denies any recent tick bites or pets in the home. Patient being admitted for DEAN currently on slow rate of IV fluids. Nephrology will be consulted. Also consulting Cardiology for near-syncope symptoms with known [id number] aortic stenosis last echo 11/2023. Hospital course:79-year-old male Croatian-speaking only with past medical history chronic kidney disease, coronary artery disease, hypertension, psoriasis, HFpEF, mild to severe aortic stenosis, insulin-dependent diabetes, glaucoma, appendectomy, recent cardiac stents x2 2 months prior at [employer], tobacco use, diabetic neuropathy and retinopathy, PVD, right leg deformity secondary to injury and surgery is being admitted for significant fatigue over the last 3 days with evidence of DEAN on chronic kidney disease. Patient did report some near syncopal episodes with profound dizziness upon standing. Patient has been hydrating well. Patient believes it is related to his metoprolol. Patient does have [id number] aortic stenosis and last echo was 11/2023. dean : seems to be improving ( creatinine is improving from 2.5-2.1) with hydration and holding lasix ,seen by nephro:dean improving Hold Lasix-follow BMP in 1 week and follow-up out patiently with PCP and Nephrology to start back Lasix outpatient. hx of chf :euvolemic and asymptomatic. CHF education given-if gains weight 2 lb or more in a week-will need outpatient Lasix restarting. Consider Follow-up with cardiology outpatient. near syncope: Likely due to above dehydration and DEAN, one-sided patient seems to be significantly improved. Telemetry seems fine, echo: The left ventricular systolic function is normal. The calculated ejection fraction is 57% by biplane method. There is severe septal asymmetric hypertrophy.There is mild to moderate aortic valve stenosis.There is moderate mitral annular calcification. Follow-up outpatient with PCP and Cardiology- consider outpatient workup needed. His fatigue is also improved, walking same with his baseline, asymptomatic, lyme testing IgG and IgM: Sent by ED seems negative,Lyme dis DNa pending -need to follow up outpatient. plan: dean improving Hold Lasix-follow BMP in 1 week and follow-up out patiently with PCP and Nephrology to start back Lasix outpatient. CHF education given-if gains weight 2 lb or more in a week-will need outpatient Lasix restarting. Consider Follow-up with cardiology outpatient. Above management discussed with the patient in detail length, patient understand and in agreement with the above plan, time spent 40 minute, all question answered. Staff was present during conversation. Time Attestation Total time managing care of this patient today: 40 mintues. Discharge Coordination Time (in mins): 40min Quality: Safe Use of Opioids Does Pt have an Active Cancer Diagnosis on the Problem List?: No Quality: Stroke Does the patient have a stroke diagnosis?: No Physical Exam Vital Signs: Vital Signs: Last Vital Signs Temp 97.0 F 09/16/24 12:00 Pulse 74 09/16/24 12:00 Resp 18 09/16/24 12:00 BP 125/79 09/16/24 12:00 Pulse Ox 100 09/16/24 12:00 O2 Del Method Room Air 09/16/24 12:00 O2 Flow Rate 2 09/14/24 22:05 Oxygen Flow Rate 2 09/14/24 19:07 BMI result Body Mass Index 30.2 Appearance: Alert.? Oriented X3. cvs: rrr, [id number] . res: clear to auscultation ,no rhonchii or wheezing abd: no rebound or guarding ,nt, bs present. ext pulses present , no cyanosis . neuro: axo3 , nonfocal. DS: Data Data Completed and Pending Completed studies during hospitalization [Text1]: Procedures Dilation of Right Femoral Artery using Drug-Coated Balloon, Percutaneous Approach (03/22/23) Reposition Left Upper Femur with Intramedullary Internal Fixation Device, Percutaneous Approach (12/08/22) Transfusion of Nonautologous Red Blood Cells into Peripheral Vein, Percutaneous Approach (12/08/22) Labs on day of discharge: Laboratory Results - last 24 hr 09/14/24 09/15/24 09/15/24 22:43 12:37 14:00 POC Glucose 218 H U Random Total Protein 35 H Urine Creatinine 39.99 Protein/Creatinin Ratio 0.88 H Lyme Screen IgG & IgM <0.90 Lyme Progressive Test TNP 09/15/24 09/15/24 09/16/24 16:03 20:28 07:12 POC Glucose 186 H 177 H 158 H U Random Total Protein Urine Creatinine Protein/Creatinin Ratio Lyme Screen IgG & IgM Lyme Progressive Test 09/16/24 11:05 POC Glucose 288 H U Random Total Protein Urine Creatinine Protein/Creatinin Ratio Lyme Screen IgG & IgM Lyme Progressive Test Preliminary micro results at discharge 09/14/24 22:52 Blood Culture - Preliminary Blood - Venous No growth after 24 hours. 09/14/24 22:43 Blood Culture - Preliminary Blood - Venous No growth after 24 hours. Imaging Chest x-ray: My impression: cxr: 1. No acute disease. echo: Conclusions: - The left ventricular systolic function is normal. The calculated ejection fraction is 57% by biplane method. - There is severe septal asymmetric hypertrophy. - There is mild to moderate aortic valve stenosis. - There is moderate mitral annular calcification. Findings Procedure Information Contrast agent, definity, is being given per protocol without apparent complications. Left Ventricle Normal left ventricular cavity size. There is mildly increased left ventricular wall thickness. The left ventricular systolic function is normal. The calculated ejection fraction is 57% by biplane method. There is no evidence of regional wall motion abnormalities. Evidence suggests grade I (mild) diastolic dysfunction. There is severe septal asymmetric hypertrophy. Difficult to assess left ventricular hypertrophy due to poor endocardial definition. Right Ventricle Mildly increased right ventricular cavity size. There is normal right ventricular systolic function. Atria The left atrium is mildly dilated. The right atrium is normal in size. Aortic Valve There is moderate calcification of the aortic valve. There is mild to moderate aortic valve stenosis. The mean gradient is 24 mmHg. The aortic valve area is 1.51 cm2. There is trace (trivial) aortic valve regurgitation. Mitral Valve There is moderate mitral annular calcification. There is no mitral valve regurgitation. There is no mitral valve stenosis. Pulmonic Valve The pulmonic valve is likely normal. Tricuspid Valve There is no tricuspid valve regurgitation. Tricuspid regurgitation envelope is inadequate for calculation of right ventricular systolic pressure. Great Vessels The asc aorta is normal in size. Venous The inferior vena cava is normal in size and collapses greater than 50% with inspiration. Pericardium/Pleural There is no evidence of pericardial effusion. Prior Study Comparison No significant change compared to prior study dated: 12/15/2023. Discharge Plan Discharge Anticipated Discharge Date/Time: 09/16/24 12:04 Patient Disposition: Home Health Service Discharge Diagnosis: dean on ckd, near syncope Referrals: Marcia Clements MD [Primary Care Provider, Internal Medicine] - 1 Week Discharge Medications: Continued (DME) hospital bed See Rx Instructions .Route .MEDSUPPLY Qty: 1 0RF Rx Instructions: As directed (DME) HOSPITAL BED See Rx Instructions .Route .MEDSUPPLY Qty: 1 0RF Rx Instructions: As directed (DME) diabetic shoe lift 1 inch See Rx Instructions .Route .MEDSUPPLY Qty: 1 0RF Rx Instructions: As directed (DME) diabetic shoes See Rx Instructions .Route .MEDSUPPLY Qty: 2 0RF Rx Instructions: As directed nicotine 14 mg/24 hr patch 24 hour 1 patch transdermal DAILY Qty: 28 0RF (DME) Dexcom G6 Continuum Of Care Manager Misc See Rx Instructions .ROUTE .MEDSUPPLY Qty: 1 0RF Rx Instructions: As directed insulin lispro [Humalog KwikPen Insulin] 100 unit/mL insulin pen 6 unit subcut TIDAC Qty: 15 3RF Rx Instructions: before meals as directed (DME) Dexcom G6 Transmitter Device See Rx Instructions .ROUTE .MEDSUPPLY Qty: 1 0RF Rx Instructions: As directed amlodipine 10 mg tablet 10 mg PO BEDTIME Qty: 90 0RF gabapentin 300 mg capsule 300 mg PO BEDTIME Qty: 90 2RF (DME) Dexcom G6 Sensor Device See Rx Instructions .ROUTE .MEDSUPPLY Qty: 3 3RF Rx Instructions: As directed rosuvastatin 40 mg tablet 40 mg PO DAILY Qty: 90 0RF acetaminophen [Tylenol Extra Strength] 500 mg tablet 500 mg PO Q6H PRN (Reason: pain or fever) Qty: 20 0RF dorzolamide-timolol 22.3-6.8 mg/mL drops 1 drp ophthalmic (eye) BID multivitamin Tablet 1 tab PO BEDTIME brimonidine 0.15 % drops 1 drp ophthalmic (eye) BID aspirin 81 mg tablet,delayed release (DR/EC) 81 mg PO BEDTIME latanoprost 0.005 % drops 1 drp ophthalmic (eye) BEDTIME betamethasone, augmented 0.05 % cream 1 appl topical BID PRN (Reason: Rash) metoprolol succinate 25 mg tablet extended release 24 hr 25 mg PO DAILY timolol maleate 0.5 % drops 1 drp ophthalmic (eye) BID ticagrelor [Brilinta] 90 mg tablet 90 mg PO BID Skyrizi 150 mg/mL pen injector 150 mg SUBCUT [id number] isosorbide mononitrate 30 mg tablet extended release 24 hr 30 mg PO DAILY dulaglutide 3 mg/0.5 mL pen injector 3 mg subcut WE@0900 (DME) FreeStyle Lite Strips Strip See Rx Instructions .ROUTE .MEDSUPPLY Qty: 150 11RF Rx Instructions: As directed four times a day (DME) 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 meter [FreeStyle Florence Lite] Kit See Rx Instructions .ROUTE .MEDSUPPLY Qty: 1 0RF Rx Instructions: As directed (DME) lancets [FreeStyle Lancets] 28 gauge misc See Rx Instructions .ROUTE .MEDSUPPLY Qty: 100 3RF Rx Instructions: As directed check BS QD (DME) pen needle, diabetic [BD Martina 2nd Gen Pen Needle] 32 gauge x 5/32 needle See Rx Instructions .MEDSUPPLY Qty: 400 4RF Rx Instructions: 5 times a day docusate sodium 100 mg capsule 200 mg PO DAILY PRN (Reason: Constipation) pantoprazole 40 mg tablet,delayed release (DR/EC) 40 mg PO DAILY Held furosemide 40 mg tablet 40 mg PO DAILY Qty: 30 5RF Hold Instructions: Resume on 09/22/24. Protocol: Hold for SBP< HOLD for SBP < : 90 Discharge Orders: Discharge Order (Routine); Ordered 09/16/24 Ordered By: Lluvia Baker Diet: Advance to usual diet Activity on Discharge: As tolerated Stand Alone Forms: Patient Portal Discharge page Print Language: Croatian Other Ambulatory Orders: Basic Metabolic Panel (Routine) Timeframe: 1 Day Facility: [facility] [place] - Location: Laboratory Ordered By: Lluvia Baker Complete Blood Count no Diff (Routine) Timeframe: 1 Week Facility: [facility] [place] - Location: Laboratory Ordered By: Lluvia Baker Care Plan Goals: As below. Health Concerns: dean improving Hold Lasix-follow BMP in 1 week and follow-up out patiently with PCP and Nephrology to start back Lasix outpatient. CHF education given-if gains weight 2 lb or more in a week-will need outpatient Lasix restarting. Consider Follow-up with cardiology outpatient. Plan of Treatment: as above Any new symptoms of dizziness or chest pain or shortness of breath go to the nearest emergency room for further evaluation. Assessment: As above. Patient Instructions: Acute Kidney Injury (DC)
--- NOTE | 2024-09-16 12:29 | P.CDIM_ITS ---
PROVIDER RESPONSE TEXT: To clarify, the appropriate diagnosis supported by the clinical indicators: CKD, please provide stage: ckd 3b QUERY TEXT: PHYSICIAN'S DOCUMENTATION REQUEST Date of Query: 09/16/2024 12:21 PM EDT Patient Name: Deyanira Vitale Admit Date: 09/15/2024 Dear Lluvia Baker MD, A review of the medical record indicates additional documentation may be needed. Please review below and update the documentation accordingly. Clinical Indicators: Progress notes: Patient's renal function is indicating DEAN on CKD. PMH: CKD Loss of appetite over 3 days. Please clarify which of the following accurately represents the patient's renal status: CKD, please provide stage 1, 2, 3a, 3b, 4 ESRD - CKD V now requiring permanent dialysis and/or transplant Other (explain) Clinically unable to determine (explain) Thank you, Joi Doll, CCS, CDIS Use of terms such as suspected, likely, concern for, or probable (associated with a specific diagnosis that is being evaluated, monitored, or treated as if it exists) are acceptable and can be coded in the inpatient setting, when documented at the time of discharge. Please use your independent medical judgment in providing your response. THIS QUERY IS PART OF THE PERMANENT MEDICAL RECORD
[2024-09-16 15:43] LABS: Lyme Disease DNA PCR NOT DETECTED (NOT DETECTED)
== END 2024-09-16 13:20 | disposition home health service (06) | DRG 641 ==
LOC: HO.ED 09-15 02:02 → HO.EDOVER 09-15 02:03 → HO.S3 09-15 11:41
PROVIDERS: Nurse Practitioner Family; Physician Assistant; Admitting Provider Student in an Organized Health Care Education/Training Program; Emergency Provider Emergency Medicine; PCP Internal Medicine; Visit Provider Internal Medicine
DX: E86.0 Dehydration (principal); N17.9 Acute kidney failure, unspecified; I13.0 Hypertensive heart and chronic kidney disease with heart failure and stage 1 through stage 4 chronic kidney disease, or unspecified chronic kidney disease; I50.32 Chronic diastolic (congestive) heart failure; I25.10 Atherosclerotic heart disease of native coronary artery without angina pectoris; E11.40 Type 2 diabetes mellitus with diabetic neuropathy, unspecified; E11.319 Type 2 diabetes mellitus with unspecified diabetic retinopathy without macular edema; I35.0 Nonrheumatic aortic (valve) stenosis; E86.1 Hypovolemia; E78.5 Hyperlipidemia, unspecified; E11.22 Type 2 diabetes mellitus with diabetic chronic kidney disease; N18.32 Chronic kidney disease, stage 3b; Z20.822 Contact with and (suspected) exposure to COVID-19; Z95.5 Presence of coronary angioplasty implant and graft; Z79.4 Long term (current) use of insulin; Z79.899 Other long term (current) drug therapy
CPT/HCPCS: 0241U; 36415; 71045; 80048; 80053; 81001; 82306; 82570; 82607; 82947; 83540; 83605; 83735; 83880; 84156; 84443; 84484; 85025; 85610; 86617; 86618; 87040; 93005; 93306; 99221; 99285; J1644; Q9957

== ENCOUNTER → 2024-09-14 19:55 | Outpatient (BNV) | payer OTHER, SELFPAY | PROVIDERS: Admitting Provider Student in an Organized Health Care Education/Training Program; Emergency Provider Emergency Medicine; PCP Internal Medicine; Visit Provider Internal Medicine | DX: R94.31 Abnormal electrocardiogram [ECG] [EKG] (principal); I95.9 Hypotension, unspecified | CPT/HCPCS: 93010 ==

== ENCOUNTER → 2024-09-14 22:16 | Outpatient (BNV) | payer OTHER, SELFPAY | PROVIDERS: PCP Internal Medicine; Visit Provider Radiology Diagnostic Radiology | DX: R05.9 Cough, unspecified (principal) | CPT/HCPCS: 71045 ==

== ENCOUNTER 2024-09-15 01:14 | Outpatient (BNV) | payer OTHER, SELFPAY | END 2024-09-15 07:00 | PROVIDERS: Admitting Provider Student in an Organized Health Care Education/Training Program; Emergency Provider Emergency Medicine; PCP Internal Medicine; Visit Provider Internal Medicine | DX: I35.0 Nonrheumatic aortic (valve) stenosis (principal); I34.81 Nonrheumatic mitral (valve) annulus calcification; I42.2 Other hypertrophic cardiomyopathy | CPT/HCPCS: 93306 ==

== ENCOUNTER → 2024-09-15 01:14 | Outpatient (BNV) | payer OTHER, SELFPAY | PROVIDERS: Admitting Provider Student in an Organized Health Care Education/Training Program; Emergency Provider Emergency Medicine; PCP Internal Medicine; Visit Provider Nurse Practitioner Family | DX: N17.9 Acute kidney failure, unspecified (principal) | CPT/HCPCS: 99221 ==

== ENCOUNTER → 2024-09-15 01:14 | Outpatient (BNV) | payer OTHER, SELFPAY | PROVIDERS: Admitting Provider Student in an Organized Health Care Education/Training Program; Emergency Provider Emergency Medicine; PCP Internal Medicine; Visit Provider Nurse Practitioner Family | DX: N17.9 Acute kidney failure, unspecified (principal) | CPT/HCPCS: 99223; 99239; 99499 ==

== ENCOUNTER 2024-09-20 12:58 | Outpatient (REF) | payer OTHER, SELFPAY ==
[2024-09-20 13:00] LABS: MANUAL DIFF FLAG NO
[2024-09-20 13:07] LABS: Basophils Absolute Auto 0.1 X10*3/uL (0.0-0.2); Eosinophils Absolute Auto 0.4 X10*3/uL (0.0-0.4); Eosinophils Percent Auto 4.8 % (0-4); Hematocrit 29.5 % (42.0-52.0); Hemoglobin 10.2 g/dl (14.0-18.0); Imm Gran Abs Auto 0.02 X10*3/uL (0.00-0.03); Imm Gran Pct Auto 0.2 % (0.0-0.4); Mean Corpuscular HGB Conc 34.6 g/dl (31.0-36.0); Mean Corpuscular Hemoglobin 32.1 pg (27.0-33.0); Mean Corpuscular Volume 92.8 fL (80.0-98.0); Mean Platelet Volume 10.7 fL (9.4-12.4); Monocytes Absolute Auto 0.7 X10*3/uL (0.1-1.2); Monocytes Percent Auto 8.7 % (2-11); Neutrophils Absolute Auto 5.1 x10*3/uL (2.0-8.3); Neutrophils Percent Auto 61.3 % (45-73); Platelet Count 174 X10*3/uL (160-400); Red Blood Count 3.18 X10*6/uL (4.60-5.80); Red Cell Distribution Width 13.8 % (11.0-16.0); White Blood Count 8.4 X10*3/uL (4.8-10.8)
--- OUTSIDE RECORDS SUMMARY | 2024-09-20 13:20 | XMS_ITS | Clinical Summary ---
Author Organization [facility] Address [address] [place] [address] Care Team Providers Care Desktop Support Associate Name Role Phone Unavailable Primary Care Provider [...] 79 01/07/2019 11:01 AM EDT Temperature 37.1 C (98.7 F) 01/07/2019 10:57 AM EDT Respiratory Rate 18 01/07/2019 11:01 AM EDT [...]
--- OUTSIDE RECORDS SUMMARY | 2024-09-20 13:20 | XMS_ITS | Clinical Summary ---
Author Organization [facility] Address [address] [place] [address] Care Team Providers Care Electric Welder Helper Name Role Phone Marcia Clements MD Primary Care Provider [phone] Social History Tobacco Use Types Packs/Day Years Used Date Smoking Tobacco: Never Assessed Sex and Gender Information Value Date Recorded Sex Assigned at Not on file Gender Identity Not on file Sexual Orientation Not on file Plan of Treatment Health Maintenance Due Date Last Done Comments COVID-19 Vaccine (#1) 01/19/1946 Depression Screening 1956 Preventative Health Evaluation 1962 DTap / Tdap / Td (1 - Tdap) 07/21/1963 Shingrix-Zoster Vaccine (1 of 2) 1994 Fall Risk Assessment 2009 Pneumococcal Vaccine (1 of 1 - PCV) 2009 RSV Adult > 60+ Yrs or Pregn ant (1 - 1-dose 75+ series) 07/21/2019 Influenza Vaccine (Season Ended) 2024 Hepatitis B Vaccines Aged Out No long er eligible based on patient's age to complete this topic RSV Ped < 20 months Aged Out No longe r eligible based on patient's age to complete this topic Care Teams Electric Welder Helper Relationship Specialty Start Date End Date Marcia Clements MD [address] [place] [address] [address] [facility] [place] [address] PCP - General Internal Medicine 06/01/20
--- OUTSIDE RECORDS SUMMARY | 2024-09-20 13:20 | XMS_ITS | Clinical Summary ---
Author Organization [facility] Address [address] [place] [address] Phone Care Team Providers Care Variety Saw Operator Name Role Phone Marcia Clements MD Primary Care Provider [phone] Allergies No known active allergies Medications adalimumab [...] week Active ergocalciferol (VITAMIN D-2) 1.25 MG (38295 UT) capsule Take 1 capsule by mouth [...] this topic Insurance Medicare Medicare Care Teams Variety Saw Operator Relationship Specialty Start Date End Date Marcia Clements MD [address] [place], [place] PCP - General 04/03/20
[2024-09-20 14:14] LABS: Anion Gap 12 (12-20); Blood Urea Nitrogen 33 mg/dL (9-16); Calcium 9.1 mg/dL (8.4-10.2); Carbon Dioxide 22 mmol/L (22-29); Chloride 110 mmol/L (96-108); Estimated Glomerular Filt Rate 54; Glucose Random 203 mg/dL (60-115); Potassium 4.3 mmol/L (3.3-5.1); Sodium 140 mmol/L (135-145)
== END 2024-09-20 12:59 | disposition home or self-care (01) ==
LOC: HO.HVNA 12:58
PROVIDERS: Visit Provider Internal Medicine
DX: I13.0 Hypertensive heart and chronic kidney disease with heart failure and stage 1 through stage 4 chronic kidney disease, or unspecified chronic kidney disease (principal); E11.22 Type 2 diabetes mellitus with diabetic chronic kidney disease; N18.30 Chronic kidney disease, stage 3 unspecified; I50.9 Heart failure, unspecified; N17.9 Acute kidney failure, unspecified
CPT/HCPCS: 36415; 80048; 85025; 99212

== ENCOUNTER 2024-09-20 14:40 | Outpatient (AMB) | payer OTHER, SELFPAY ==
[2024-09-20 15:04] VITALS: BP 116/42; BMI 30.2
--- NOTE | 2024-09-20 15:04 | HO.NEPHOV_ITS ---
Vital Signs 09/20/24 15:04 Height 5 ft 6 in Weight 187 lb BMI 30.2 BP 116/42 L Blood Pressure Location Lt brachial Position Sitting Intake Visit Reasons: 4 MO FU Appeals Examiner Required: Yes Appeals Examiner Name: vinay [id number] Accompanied by: Spouse Allergies prednisone Allergy (Unknown, Verified 09/20/24 15:08) Unknown amoxicillin (From Augmentin) Adverse Reaction (Intermediate, Verified 09/20/24 15:08) Nausea and Vomiting clavulanic acid (From Augmentin) Adverse Reaction (Intermediate, Verified 09/20/24 15:08) Nausea and Vomiting Medication List - Last Reconciled 09/20/24 by Channing Trevino MD acetaminophen (Tylenol Extra Strength) 500 mg PO Q6H PRN amlodipine 10 mg PO BEDTIME aspirin 81 mg PO BEDTIME betamethasone, augmented 0.05 % 1 appl topical BID PRN blood sugar diagnostic (FreeStyle Lite Strips) As directed four times a day 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 meter (Dev4XStyle [place] Lite kit) As directed 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 sensor (Dex[employer] G6 Sensor device) As directed 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 transmitter (Dexcom G6 Transmitter device) As directed 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,library science instructor,cont (Dexcom G6 College Dean) As directed brimonidine 0.15% 1 drp ophthalmic (eye) BID [diabetic shoe lift As directed] [diabetic shoes As directed] docusate sodium 200 mg PO DAILY PRN dorzolamide-timolol 22.3-6.8 mg/mL 1 drp ophthalmic (eye) BID dulaglutide 3 mg subcut WE@0900 furosemide 40 mg See Protocol PO DAILY Held on 09/16/24. Instructions: Resume on 09/22/24. gabapentin 300 mg PO BEDTIME [hospital bed As directed] [HOSPITAL BED As directed] insulin lispro (Humalog KwikPen (U-100) Insulin) 6 units (0.06 mL) subcut TIDAC isosorbide mononitrate ER 30 mg PO DAILY lancets (FreeStyle Lancets) As directed check BS QD latanoprost 0.005% 1 drp ophthalmic (eye) BEDTIME metoprolol succinate ER 25 mg PO DAILY multivitamin 1 tab PO BEDTIME nicotine 1 patch transdermal DAILY pantoprazole 40 mg PO DAILY pen needle, diabetic (BD Martina 2nd Gen Pen Needle) 5 times a day risankizumab-rzaa (Skyrizi) 150 mg subcut [id number] rosuvastatin 40 mg PO DAILY ticagrelor (Brilinta) 90 mg PO BID timolol maleate 0.5% 1 drp ophthalmic (eye) BID HPI Comments Details: 78-year-old male with a history of insulin-dependent diabetes mellitus with neuropathy, congestive heart failure with preserved ejection fraction, gastroesophageal reflux disease, coronary artery disease, essential hypertension who presented to the emergency department for evaluation after a fall. Sustained hip fracture. Baseline creatinine is around 1.3-1.4 mg/dL. He underwent hip surgery on 12/10/2022. Creatinine has bumped up to 1.7 mg/dL and he was seen in consultation during hospitalization for DEAN He is here for follow up today Accompanied by family Seen by cardiology recently 09/20/24 The patient is an 79-year-old male presenting with heart failure and chronic kidney disease. The patient has a history of heart failure, for which he underwent heart surgery. He was prescribed a water pill to manage fluid retention, but the initial dose was too strong, leading to dehydration and subsequent hospitalization. He was on Lasix 40 mg QD The patient also reports bruising, which has been attributed to anticoagulation therapy with aspirin . The bruising was noted upon discharge from the hospital and is expected to improve over time. Regarding kidney function, the patient's kidney numbers have improved from 25% to 54% following hospitalization and cessation of the water pill. Urinalysis shows no blood and minimal proteinuria, indicating stable renal function. [facility] Medical History CHF (congestive heart failure) Aortic stenosis PAD (peripheral artery disease) Heel ulcer Tobacco abuse Impacted cerumen of both ears Epidermoid cyst of skin of cheek Mass of face Allergic rhinitis Trigger finger, right middle finger Fracture of distal end of left radius with routine healing Superficial abrasion Pneumonia due to COVID-19 virus Acute hypoxemic respiratory failure due to COVID-19 Distal radius fracture, right Renal insufficiency Trigger finger, right middle finger Respiratory tract infection Preoperative clearance Iliac artery stenosis, 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 History of renal calculi Compression fracture of L1 lumbar vertebra Infective endocarditis Glaucoma Left carotid stenosis GERD (gastroesophageal reflux disease) Pulmonary nodule Cardiomyopathy Congestive heart failure Overweight (BMI 25.0-29.9) Carotid artery stenosis PVD (peripheral vascular disease) Dyslipidemia Hypertension CAD (coronary artery disease) Diabetic retinopathy associated with type 2 diabetes mellitus Diabetic polyneuropathy associated with type 2 diabetes mellitus CKD stage 3 due to type 2 diabetes mellitus Diabetic 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 diabetes mellitus MCFP (current) use of insulin Surgical History Hx of shoulder surgery Hx of coronary artery bypass graft Hx of cataract removal with insertion of prosthetic lens Hx of tonsillectomy Hx of appendectomy Hx of arthroscopy of right knee Family History Father Stomach cancer Mother Diabetes Brother Prostate abscess Social History Household Members: Spouse Housing: Apartment Do you presently have visiting nurse or other home services: No Alcohol intake: never Patient Tobacco Use Status: Never used Tobacco Tobacco use type: Cigarette Cigarette Packs Per Day: 0.25 Cigarettes Per Day: 3 Years Smoked: 65 e-Cigarette/Vaping Use: Never Used Second Hand Smoke Exposure: Yes Advance Directives Date on File: 06/08/21 service: No Current occupational status: 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 Cognitive needs: No Hearing needs: No Vision needs: No Physical Exam Vital Signs: Last Vital Signs BP 116/42 L 09/20/24 15:04 BMI result Body Mass Index 30.2 Const General: comfortable; No acute distress Orientation/consciousness: patient oriented x3 Eyes General: appearance normal, both eyes and all related structures Visual El: normal visual el by confrontation Neck Neck: Yes supple and Yes no JVD Resp Effort & Inspection: normal respiratory effort and respiratory effort not decreased Cardio Palpation: no palpable S3 and no palpable S4 Heart sounds: no rubs GI Inspection: Yes normal to inspection Palpation (GI): Soft to palpation Percussion: Yes normal to percussion Auscultation: normal bowel sounds General: Yes no CVA tenderness Back/Spine/Pelvis Back: no CVA tenderness Skin General skin exam: no petechiae and no purpura Neuro General: patient oriented x3 and no focal motor deficits Extrem General: No clubbing and No edema Results Reviewed Nephrology Results: Hgb, (14.0-18.0) 10.2 g/dl L Today WBC, (4.8-10.8) 8.4 X10*3/uL Today Plt Count, (160-400) 174 X10*3/uL Today Sodium, (135-145) 140 mmol/L Today Potassium, (3.3-5.1) 4.3 mmol/L Today Chloride, (96-108) 110 mmol/L H Today Carbon Dioxide, (22-29) 22 mmol/L Today BUN, (9-16) 33 mg/dL H Today Creatinine, (0.5-1.4) 1.29 mg/dL Today Calcium, (8.4-10.2) 9.1 mg/dL Today Urine Protein, (Neg-Trace) 30 (1+) mg/dL H 09/15/24 Urine Creatinine 39.99 mg/dL 09/15/24 Protein/Creatinin Ratio, (<0.2) 0.88 H 09/15/24 Renal US 12/12/22 Assessment & Plan Assessment & Plan (1) CKD stage 3 due to type 2 diabetes mellitus: Code(s): E11.22 - Type 2 diabetes mellitus with diabetic chronic kidney disease; N18.30 - Chronic kidney disease, stage 3 unspecified Category: Medical (2) CHF (congestive heart failure): Comment: Diastolic Code(s): I50.9 - Heart failure, unspecified Category: Medical Qualifiers: Heart failure chronicity: acute on chronic Heart failure type: unspecified Qualified Code(s): I50.9 - Heart failure, unspecified Plan 79-year-old man with chronic kidney disease in the setting of longstanding diabetes mellitus congestive heart failure. He is sustained acute kidney injury most likely due to hypoperfusion. REnal function has improved - close to baseline DEAN due to hypoperfuison Resolved h/o CHF Resume Lasix Start at 20 mg QD instead of 40 mg Stay on low salt diet Continue to avoid nephrotoxic agents. Watch for anemia Maintain BP < 130/80 and A1C < 7% Orders: Orders Basic Metabolic Panel 2 Months E11.22 - Type 2 diabetes mellitus with diabetic chronic kidney disease, N18.30 - Chronic kidney disease, stage 3 unspecified Medications: New furosemide 20 mg PO DAILY 30 tabs 3RF Discontinued furosemide Discontinued Reason: Doctor's Order 40 mg See Protocol PO DAILY 30 tabs 5RF Coding Level of Care Code Est Pt Level 4 (32448) Diagnoses CKD stage 3 due to type 2 diabetes mellitus E11.22; N18.30 CHF (congestive heart failure) I50.9 Heart failure chronicity: acute on chronic Heart failure type: unspecified
== END 2024-09-20 15:22 | disposition home or self-care (01) ==
LOC: HO.HKA 14:41
PROVIDERS: PCP Internal Medicine; Visit Provider Internal Medicine Hypertension Specialist
DX: E11.22 Type 2 diabetes mellitus with diabetic chronic kidney disease (principal); N18.30 Chronic kidney disease, stage 3 unspecified; I50.9 Heart failure, unspecified
CPT/HCPCS: 99214

== ENCOUNTER 2024-09-21 10:56 | Outpatient (AMB) | payer OTHER, SELFPAY ==
--- NOTE | 2024-09-21 11:12 | MHC.PC.OV ---
Vital Signs 09/21/24 11:14 Height 5 ft 6 in Weight 184 lb 8 oz BMI 29.8 BP 120/60 Blood Pressure Location Lt brachial Position Sitting Pulse 72 Pulse Source Pulse Oximeter Temp 97.3 F Temp Source Temporal Artery Scan Pulse Oximetry (%) 98 Oxygen Delivery Method Room Air Intake Visit Reasons: [facility] 09/16 weakness Intake Note: Patient is here for hospital discharge and TCM follow up. Patient was [place] [facility] [place]. Microsoft Application Developer Required: No Binding Dyer: Present Accompanied by: Spouse Allergies prednisone Allergy (Unknown, Verified 09/21/24 11:13) Unknown amoxicillin (From Augmentin) Adverse Reaction (Intermediate, Verified 09/21/24 11:13) Nausea and Vomiting clavulanic acid (From Augmentin) Adverse Reaction (Intermediate, Verified 09/21/24 11:13) Nausea and Vomiting Tobacco use date assessed: 09/21/24 Fall risk assessment: 1 Fall in past year Last assessed Fall Risk: 09/21/24 Dental Screening Dental Screen Date: 03/29/24 HPI [facility] 09/16 weakness HPI Details 79-year-old male with past medical history of diabetes mellitus, aortic stenosis, peripheral vascular disease, GERD, cardiomyopathy, dyslipidemia, carotid artery stenosis, coronary artery disease, CKD, history of NSTEMI, tobacco abuse, CHF last seen 06/2024 by PLANT CLERK coming in for HDF. In review of the notes, patient was seen in [facility] 09/15/2024 for fatigue and shortness of breath evidence of DEAN on chronic kidney disease. DEAN improved with hydration and holding Lasix advised to hold Lasix 1 week after discharge and follow up with Nephrology. Near-syncope likely due to dehydration and acute kidney injury workup otherwise was negative. CHF education was given if gain more than 2 lb in 1 week plan to restart on Lasix patient was discharged home 09/16/2024. Patient was seen by Nephrology 09/20/2024 resume Lasix at 20 mg daily and continue on low-salt diet. Presenting with anemia, acute kidney injury, and dehydration. Anemia is improving, with better blood cell counts noted. Acute kidney injury, Attributed to dehydration, possibly due to Lasix, with improvement noted upon rehydration. Dehydration Emphasis on maintaining hydration to support kidney function. Daily weight monitoring is advised to detect any significant changes. A bruise on the back was mentioned without further elaboration. No pain on the back surrounding the bruise and patient denies any recent falls or injury. TCM TCM Information Date of Discharge 09/16/24 Discharged From [facility] Interactive Contact Date (Reference documentation from this date) 09/17/24 FOR[facility]LY [facility] Medical History (Updated 09/21/24 @ 12:45 by Karyn Jean PA-C) CHF (congestive heart failure) Aortic stenosis PAD (peripheral artery disease) Heel ulcer Tobacco abuse Impacted cerumen of both ears Epidermoid cyst of skin of cheek Mass of face Allergic rhinitis Trigger finger, right middle finger Fracture of distal end of left radius with routine healing Superficial abrasion Pneumonia due to COVID-19 virus Acute hypoxemic respiratory failure due to COVID-19 Distal radius fracture, right Renal insufficiency Trigger finger, right middle finger Respiratory tract infection Preoperative clearance Iliac artery stenosis, 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 History of renal calculi Compression fracture of L1 lumbar vertebra Infective endocarditis Glaucoma Left carotid stenosis GERD (gastroesophageal reflux disease) Pulmonary nodule Cardiomyopathy Congestive heart failure Overweight (BMI 25.0-29.9) Carotid artery stenosis PVD (peripheral vascular disease) Dyslipidemia Hypertension CAD (coronary artery disease) Diabetic retinopathy associated with type 2 diabetes mellitus Diabetic polyneuropathy associated with type 2 diabetes mellitus CKD stage 3 due to type 2 diabetes mellitus Diabetic 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 diabetes mellitus ad terminal makeup operator (current) use of insulin Surgical History (Updated 09/21/24 @ 11:24 by ALEX Gant) History of repair of right hip joint Hx of shoulder surgery Hx of coronary artery bypass graft Hx of cataract removal with insertion of prosthetic lens Hx of tonsillectomy Hx of appendectomy Hx of arthroscopy of right knee Family History Father Stomach cancer Mother Diabetes Brother Prostate abscess Social History Household Members: Spouse Housing: Apartment Do you presently have visiting nurse or other home services: No Alcohol intake: never Patient Tobacco Use Status: Former Tobacco user Tobacco use type: Cigarette Cigarette Packs Per Day: 0.25 Cigarettes Per Day: 3 Years Smoked: 65 e-Cigarette/Vaping Use: Never Used Second Hand Smoke Exposure: Yes Advance Directives Date on File: 06/08/21 service: No Current occupational status: 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 Cognitive needs: No Hearing needs: No Vision needs: No Questionnaire Thrive Questionnaire Date Thrive assessed: 09/15/24 THIERNO-7 AMB Questionnaire THIERNO-7 Date THIERNO - 7 assessed: 03/29/24 Source: Developed by Drs. Mendez Warren, Chelsea David, Kane Oakes and colleagues, with an educational charisse from Interview Master. Review of Systems Const Denies body aches, Denies chills, Denies fever(s), Denies headache(s) and Denies poor appetite Eyes Reports no additional complaints ENT Denies dysphagia, Denies dizziness, Denies headache(s) and Denies odynophagia Card Denies chest pain, Denies syncope, Denies edema, Denies irregular heart rhythm, Denies lightheadedness and Denies dyspnea Resp Denies cough and Denies dyspnea GI Denies abdominal pain, Denies constipation, Denies dysphagia, Denies diarrhea, Denies nausea, Denies odynophagia and Denies vomiting Reports no additional complaints Musc Reports no additional complaints and Denies abnormal gait Skin/Breast Reports system reviewed and no additional complaints, except as documented Neuro Denies abnormal gait, Denies dizziness, Denies syncope and Denies headache(s) Psych Reports no additional complaints Physical exam (Primary Care) Vital Signs: Last Vital Signs Temp 97.3 F 09/21/24 11:14 Pulse 72 09/21/24 11:14 BP 120/60 09/21/24 11:14 Pulse Ox 98 09/21/24 11:14 Oxygen Delivery Method Room Air 09/21/24 11:14 BMI result Body Mass Index 29.8 Tobacco/Smoking Status: Tobacco use Status Tobacco use date assessed 09/21/24 09/21/24 11:14 Patient Tobacco Use Status Former Tobacco user 09/21/24 11:25 Tobacco use type Cigarette 09/21/24 11:14 e-Cigarette/Vaping Use Never Used 09/21/24 11:14 Thrive Assessment: Date of Thrive Assessment Date Thrive assessed 09/15/24 09/21/24 11:14 Const General: cooperative, healthy appearing, comfortable and no acute distress Orientation/consciousness: patient oriented x3 HENMT Head: Yes normocephalic Ears: hearing grossly normal bilaterally General nose exam: Normal external nose present Eyes General: appearance normal, both eyes and all related structures Conjunctivae: conjunctivae normal Neck Neck: Yes full ROM and Yes no lymphadenopathy Resp Effort & Inspection: normal respiratory effort Auscultation: clear to auscultation bilaterally, no crackles, no rales, no rhonchi and no wheezes Cardio Rate: regular rate Rhythm: regular rhythm Back/Spine/Pelvis Other: Ecchymosis of lower back Skin General skin exam: no rashes or lesions noted Neuro General: patient oriented x3 Gait exam (Neuro): Normal gait present Extrem General: Yes normal to inspection, Yes full ROM and No edema Psych Affect: normal affect Attitude: cooperative Insight: Good insight present (Psych) Judgement: Good judgement present (Psych) Coding Level of Care Code TCM Mod MDM <= 7 Days Complex EM visit Add On G2211 Diagnoses CHF (congestive heart failure) I50.9 Heart failure chronicity: acute on chronic Heart failure type: unspecified Type 2 diabetes mellitus with hyperglycemia, with long-term current use of insulin E11.65; Z79.4 Diabetes mellitus press tender long goods insulin use: with press tender long goods use Obesity (BMI 30.0-34.9) E66.811 CKD stage 3 due to type 2 diabetes mellitus E11.22; N18.30 DEAN (acute kidney injury) N17.9 Bruising T14.8XXA Assessment & Plan Assessment & Plan (1) CHF (congestive heart failure): Comment: Diastolic Code(s): I50.9 - Heart failure, unspecified Category: Medical Qualifiers: Heart failure chronicity: acute on chronic Heart failure type: unspecified Qualified Code(s): I50.9 - Heart failure, unspecified Plan: Continue to follow with cardiology. I reinforced the daily weight monitoring with the patient as well. Clinically euvolemic on exam today. Denies any shortness of breath or chest pain at this time and denies any orthopnea. No leg swelling. (2) Type 2 diabetes mellitus with hyperglycemia: Code(s): E11.65 - Type 2 diabetes mellitus with hyperglycemia Category: Medical Qualifiers: Diabetes mellitus press tender long goods insulin use: with custodial use Qualified Code(s): E11.65 - Type 2 diabetes mellitus with hyperglycemia; Z79.4 - ad terminal makeup operator (current) use of insulin Plan: Decrease the amount of carbohydrates such as pasta, bread, rice, and potatoes and limit the amount of sweets. Although fruits are generally healthy they should be eaten in moderation as they are still high in sugar. Hemoglobin A1c goal of less than 7% (3) Obesity (BMI 30.0-34.9): Code(s): E66.811 - Obesity, class 1 Category: Medical Plan: Healthy diet and regular exercise is encouraged. (4) CKD stage 3 due to type 2 diabetes mellitus: Code(s): E11.22 - Type 2 diabetes mellitus with diabetic chronic kidney disease; N18.30 - Chronic kidney disease, stage 3 unspecified Category: Medical Plan: Continue to follow with nephrology - avoid kidney irritants such as NSAIDs and stay well hydrated. (5) DEAN (acute kidney injury): Code(s): N17.9 - Acute kidney failure, unspecified Category: Medical Plan: DEAN has resolved and most recent blood work shows Cr returned to baseline. DEAN thought to be secondary to dehydration. Advised patient to stay well hydrated and continue to monitor daily weights. Patient was seen by Nephrology and Lasix was resumed at a lower dose which patient seems to be tolerating well. (6) Bruising: Code(s): T14.8XXA - Other injury of unspecified body region, initial encounter Category: Medical Plan: Patient has bruising in the lower back without trauma. No tenderness to palpation. Discussed with the patient's likely due to the ticagrelor and aspirin. Advised patient to monitor bruising does not improve in 1-2 weeks reach out to the office. Plan The patient is advised to maintain adequate hydration to support kidney function and prevent further dehydration-related issues. Monitoring of daily weight is crucial to detect any significant changes that may indicate fluid imbalance. The patient should continue to follow up with the dump operator and actuarial trainee as scheduled to ensure ongoing management of kidney function and cardiovascular health. Regular monitoring of blood cell counts is recommended to assess the status of anemia. The patient should report any new symptoms or concerns, such as changes in urination or unexpected bruising, to the healthcare provider promptly. This note was constructed using voice recognition software. While every effort has been made to ensure accuracy and shift stacker, still areas may have been included sometimes these areas may affect the content or meeting of the given symptoms. Total time spent caring for the patient today was 20 minutes. This includes time spent before the visit reviewing the chart, time spent during the visit, and time spent after the visit and documentation. Patient was informed and verbally consented to the use of an ambient scribe for clinic note documentation during this visit.
[2024-09-21 11:14] VITALS: BP 120/60; PULSE 72; TEMP 36.3; O2SAT 98; BMI 29.8
--- OUTSIDE RECORDS SUMMARY | 2024-09-21 12:09 | XMS_ITS | Clinical Summary ---
Author Organization [employer] [facility] Address [address] [place] [address] Care Team Providers Care Hris Analyst Name Role Phone Marcia Clements MD Primary Care Provider [phone] Social History Tobacco Use Types Packs/Day Years [...] age to complete this topic Care Teams Hris Analyst Relationship Specialty Start Date End Date Marcia Clements MD [address] [place] [address] [address] [facility] [place] [address] PCP - General Internal Medicine 06/01/20
--- OUTSIDE RECORDS SUMMARY | 2024-09-21 12:09 | XMS_ITS | Clinical Summary ---
Author Organization [facility] Address [address] [place] [address] Care Team Providers Care Cotton Tier Name Role Phone Unavailable Primary Care Provider [...]
--- OUTSIDE RECORDS SUMMARY | 2024-09-21 12:09 | XMS_ITS | Clinical Summary ---
Author Organization [facility] Address [address] [place] [address] Phone Care Team Providers Care Clinical Applications Manager Name Role Phone Marcia Clements MD Primary Care Provider [phone] Allergies No known active allergies Medications adalimumab [...] week Active ergocalciferol (VITAMIN D-2) 1.25 MG (45099 UT) capsule Take 1 capsule by mouth [...] this topic Insurance Medicare Medicare Care Teams Clinical Applications Manager Relationship Specialty Start Date End Date Marcia Clements MD [address] [place], [place] PCP - General 04/03/20
== END 2024-09-21 11:53 | disposition home or self-care (01) ==
LOC: HO.HMCH 10:56
PROVIDERS: PCP Internal Medicine
DX: I50.9 Heart failure, unspecified (principal); E11.65 Type 2 diabetes mellitus with hyperglycemia; Z79.4 Long term (current) use of insulin; E11.22 Type 2 diabetes mellitus with diabetic chronic kidney disease; N18.30 Chronic kidney disease, stage 3 unspecified; Z68.29 Body mass index [BMI] 29.0-29.9, adult; E66.811 Obesity, class 1; N17.9 Acute kidney failure, unspecified; T14.8XXA Other injury of unspecified body region, initial encounter

== ENCOUNTER → 2024-09-21 10:56 | Outpatient (BNVA) | payer OTHER, SELFPAY | PROVIDERS: PCP Internal Medicine | DX: I50.9 Heart failure, unspecified (principal); E11.65 Type 2 diabetes mellitus with hyperglycemia; Z79.4 Long term (current) use of insulin; E11.22 Type 2 diabetes mellitus with diabetic chronic kidney disease; N18.30 Chronic kidney disease, stage 3 unspecified; N17.9 Acute kidney failure, unspecified; E66.811 Obesity, class 1; Z68.29 Body mass index [BMI] 29.0-29.9, adult; Z71.3 Dietary counseling and surveillance | CPT/HCPCS: 99495 ==

== ENCOUNTER → 2024-10-11 11:21 | Outpatient (REF) | payer OTHER, SELFPAY ==
--- NOTE | 2024-10-11 11:24 | HM_ITS ---
Conclusion: 1. Patient was monitored for total period of 2 days and 23 hours 2. Baseline was normal sinus rhythm with average heart of 70 beats per minute 3. No significant pauses noted 4. Frequent PVCs noted with total burden of 2.9% without significant ventricular arrhythmias 5. No patient reported events MTDD
--- OUTSIDE RECORDS SUMMARY | 2024-10-11 12:28 | XMS_ITS ---
Author Name Pierce Villegas APRN Address [address] [place] [address] Phone [phone] [facility] Care Team Providers Care Journeyman Welder Name Role Phone Sarah Villegas Unavailable [phone] Po, Lorenver Unavailable [phone] Reason for Referral Not Available Allergies, adverse reactions, alerts No known allergies History of medication use Medication Class Instructions Start Date End Date Furosemide 20 mg Tab TAKE ONE TABLET BY MOUTH EVERY DAY 2023-12-03 No Data Available Albuterol Sulfate HFA 108 (90 Base) MCG/ACT Aerosol Solution INHALE 2 PUFFS INHALED EVERY 4 TO 6 HOURS NEEDED FOR SHORTNESS OF BREATH OR WHEEZING. 2024-04-15 No Data Available Azithromycin 250 mg Tab TAKE 2 TABLETS O N FIRST DAY , THEN 1 TABLET DAILY FOR 4 DAYS 2024-04-16 No Data Available Isosorbide Mononitrate ER 30 mg Tab ER 24hr TAKE ONE TABLET BY MOUTH TWICE A DAY 2024-04-05 No Data Available Clopidogrel Bisulfate 75 mg Tab TAKE 1 TABLET BY MOUTH DAILY 2024-04-05 No Data Geri ilable amLODIPine Besylate 10 mg Tab TAKE 1 TABLET BY MOUTH AT BEDTIME 2024-05-01 No Data Available Dorzolamide 2 % Solution No Data Available 2024-01-06 No Data Available Timolol Maleate 0.5 % Solution INSTILL 1 DROP TO BOTH EYES TWO TIMES A DAY 2023-06-24 No Data Available Brimonidine Tartrate 0.2 % Solution INSTILL 1 DROP INTO BOTH EYES TWO TIMES A DAY 2024-05-11 No Data Available Gabapentin 300 mg Cap TAKE ONE CAPSULE B Y MOUTH DAILY AT BEDTIME 2023-11-13 No Data Available DEXCOM G6 TRANSMITTER MISC USE DIRECTED 2024-05-03 No Data Available DEXCOM G6 SENSOR MISC USE DIRECTED 2023-12-29 No Data Available Trulicity 3 mg/0.5ML Solution Auto-injector INJECT 3MG 0.5ML) SUBCUTANEOUSLY EVERY FRIDAY AT 9AM 2024-05-20 No Data Available Latanoprost 0.005 % Solution INSTILL 1 D ROP INTO BOTH EYES EVERY NIGHT 2023-10-08 No Data Available Rosuvastatin Calcium 40 mg Tab No Data Available 2024-06-10 No Data Available Metoprolol Succinate ER 25 mg Tab ER 24hr TAKE ONE TABLET BY MOUTH EVERY DAY 2024-03-16 No Data Available Pantoprazole Sodium 40 mg Tab delayed rel TAKE 1 TABLET BY MOUTH EVERY DAY 2024-06-29 No Data Available Nitroglycerin 0.[address] 1 TABLET UNDER TONGUE EVERY 5 MIN NEEDED FOR CHEST PAIN, MAX OF 3 DOSES/15 MIN CALL 911/SEEK MEDICAL ATTENTION IF PAIN PERSISTS 2024-06-29 No Data Available Brilinta 90 mg Tab TAKE 1 TABLET BY DENITA TH TWO TIMES A DAY 2024-06-29 No Data Available buPROPion ER (SR) 150 mg Tab ER 12hr TAKE 1 TABLET BY MOUTH EVERY DAY 2024-07-03 No Data Available Nicotine 21 mg/24HR Patch 24hr APPLY 1 PATCH TOPICALLY EVERY DAY. REMOVE OLD PATCH BEFORE APPLYING NEW ONE. 2024-07-03 No Data Available Insulin Lispro (1 Unit Dial) 100 UNIT/ML Solution Pen-injector INJECT 6 UNITS SUBCUTANEOUSLY THREE TIMES A DAY BEFORE MEALS; DIRECTED 2023-11-13 No Data Available Skyrizi Pen 150 mg/ML Solution Auto-injector No Data Available 2024-03-23 No Data Available Betamethasone Dipropionate Aug 0.05 % Crm APPLY TOPICALLY TO AFFECTED AREAS OF PSORIASUS ON LEGS TWICE DAILY NEEDED 2024-08-25 No Data Available Problem List Problem Status Onset Date Resolved Date Synopsis Type 2 diabetes mellitus with both eyes affected by mild nonproliferative retinopathy without macular edema, with long-term current use of insulin; Type 2 diabetes mellitus with HLD Active 2024-10-07 N/A Jessica pectedRX: listed Diastolic CHF Active 2024-10-07 N/A SuspectedRX : listed Hx of non-ST elevation myocardial infarction (NSTEMI) Active 2024-10-07 N/A Suspected Unspecified atrial flutter Active 2024-10-07 N/A SuspectedRX: listed Chronic kidney disease, stage 3 unspecified Active 2024-10-07 N/A SuspectedRX: listed Major depressive disorder, recurrent, moderate Active 2024-10-07 N/A SuspectedRX: listed HTN (hypertension) Active 2024-10-07 N/A Suspec tedRX: listed GERD (gastroesophageal reflux disease) Active 2024-10-07 N/A SuspectedRX: lis sierra Vision impairment Active 2024-10-07 N/A StableP atient reports that he has 80% vision lossFall risk precautions, use DME and assistive devices, assist with ADLs and iADLs, and continue f/u care and monitoring with PCP and ophatmaology. Social History Social History Social History Observation Description Effec tive Time Current Smoking Status Current every day smoker 2024-10-11 Sex Male Functional Status No Information Mental Status Status Date AOx 2024-10-07 Assessments Not Available Plan of Care Not Available
--- OUTSIDE RECORDS SUMMARY | 2024-10-11 12:29 | XMS_ITS | Clinical Summary ---
Author Organization [facility]ly [facility] Address [address] [place] [address] Care Team Providers Care Benefits Counselor Name Role Phone Unavailable Primary Care Provider [...]
--- OUTSIDE RECORDS SUMMARY | 2024-10-11 12:29 | XMS_ITS | Clinical Summary ---
Author Organization [employer] [facility] Address [address] [place] [address] Care Team Providers Care Banquet Cook Name Role Phone Marcia Clements MD Primary Care Provider [phone] Social History Tobacco Use Types Packs/Day Years [...] 1-dose 75+ series) 07/21/2019 Influenza Vaccine (#1) 2024 Hepatitis B Vaccines Aged Out No long er eligible based on patient's age to complete this topic RSV Ped < 20 months Aged Out No longe r eligible based on patient's age to complete this topic Care Teams Banquet Cook Relationship Specialty Start Date End Date Marcia Clements MD [address] [place] [address] [address] [facility] [place] [address] PCP - General Internal Medicine 06/01/20
--- OUTSIDE RECORDS SUMMARY | 2024-10-11 12:29 | XMS_ITS | Clinical Summary ---
Author Organization [facility] Address [address] [place] [address] Phone Care Team Providers Care Trawl Net Maker Name Role Phone Marcia Clements MD Primary Care Provider [phone] Allergies No known active allergies Medications adalimumab [...] week Active ergocalciferol (VITAMIN D-2) 1.25 MG (29798 UT) capsule Take 1 capsule by mouth [...] Visual Foot Exam 04/23/2020 Influenza Vaccine (#1) 2024 Hepatitis B Vaccine Aged Out No longe r eligible based on patient's age to complete this topic Insurance Medicare Medicare Care Teams Trawl Net Maker Relationship Specialty Start Date End Date Marcia Clements MD [address] [place], [place] PCP - General 04/03/20
== END ==
LOC: HO.CARD 11:21
PROVIDERS: PCP Internal Medicine; Visit Provider Internal Medicine Cardiovascular Disease
DX: I49.3 Ventricular premature depolarization (principal)
CPT/HCPCS: 93242

== ENCOUNTER → 2024-10-11 11:24 | Outpatient (BNV) | payer OTHER, SELFPAY | PROVIDERS: PCP Internal Medicine; Visit Provider Internal Medicine Cardiovascular Disease | DX: I49.3 Ventricular premature depolarization (principal) | CPT/HCPCS: 93244 ==

== ENCOUNTER 2024-10-25 11:04 | Outpatient (AMB) | payer OTHER, SELFPAY ==
--- NOTE | 2024-10-25 11:13 | MHC.OFFVIS ---
Vital Signs 10/25/24 11:14 Height 5 ft 6 in Weight 185 lb 3.013 oz BMI 29.9 BP 120/60 Blood Pressure Location Rt brachial Position Sitting Pulse 63 Intake Visit Reasons: 3 mth f/up lipids Intake Note: 3 month follow-up after holter Regional Wildlife Agent Required: Yes Regional Wildlife Agent Services: Regional Wildlife Agent Present Regional Wildlife Agent Name: ramone Campa Insulation Board Back Tender: Insulation Board Back Tender Present Accompanied by: Spouse Allergies prednisone Allergy (Unknown, Verified 09/21/24 11:13) Unknown amoxicillin (From Augmentin) Adverse Reaction (Intermediate, Verified 09/21/24 11:13) Nausea and Vomiting clavulanic acid (From Augmentin) Adverse Reaction (Intermediate, Verified 09/21/24 11:13) Nausea and Vomiting Medication List - Last Reconciled 10/25/24 by Emile Bridges MD acetaminophen (Tylenol Extra Strength) 500 mg PO Q6H PRN amlodipine 10 mg PO BEDTIME PRN aspirin 81 mg PO BEDTIME betamethasone, augmented 0.05 % 1 appl topical BID PRN blood sugar diagnostic (FreeStyle Lite Strips) As directed four times a day 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 meter (QuovoStyle Trimble Lite kit) As directed 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 sensor (Plored G6 Sensor device) As directed 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 transmitter (Dexcom G6 Transmitter device) As directed 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,sieve grader tender,cont (Dexcom G6 English Language Learner Teacher) As directed brimonidine 0.15% 1 drp ophthalmic (eye) BID [diabetic shoe lift As directed] [diabetic shoes As directed] docusate sodium 200 mg PO DAILY PRN dorzolamide-timolol 22.3-6.8 mg/mL 1 drp ophthalmic (eye) BID dulaglutide 3 mg subcut WE@0900 furosemide 20 mg PO DAILY gabapentin 300 mg PO BEDTIME [hospital bed As directed] [HOSPITAL BED As directed] insulin lispro (Humalog KwikPen (U-100) Insulin) 6 units (0.06 mL) subcut TIDAC isosorbide mononitrate ER 30 mg PO DAILY lancets (FreeStyle Lancets) As directed check BS QD latanoprost 0.005% 1 drp ophthalmic (eye) BEDTIME metoprolol succinate ER 25 mg PO DAILY pantoprazole 40 mg PO DAILY pen needle, diabetic (BD Martina 2nd Gen Pen Needle) 5 times a day risankizumab-rzaa (Skyrizi) 150 mg subcut D2PAORHD rosuvastatin 40 mg PO DAILY ticagrelor (Brilinta) 90 mg PO BID timolol maleate 0.5% 1 drp ophthalmic (eye) BID HPI Comments Details: Deyanira comes for follow-up accompanied by his and history obtained with help of salon supervisor. Despite the salon supervisor patient in his not a very good historian. As per the patient has been experiencing very low blood pressure with lightheadedness and therefore is not giving her medication [id number]. This was approved through your office. She gives intermittent different dose of medicines with amlodipine. Patient himself denies any cardiac complaints. Denies any palpitations. Denies any exertional chest pain or shortness of breath. No orthopnea, PND. Takes all his medications regularly except for amlodipine. Recent Holter monitor showed normal sinus rhythm with frequent PVCs but without any sustained arrhythmias. Recent echocardiogram shows preserved LV ejection fraction with severe raised to bariatric structural hypertrophic with [id number] aortic stenosis. [facility] Medical History CHF (congestive heart failure) Aortic stenosis PAD (peripheral artery disease) Heel ulcer Tobacco abuse Impacted cerumen of both ears Epidermoid cyst of skin of cheek Mass of face Allergic rhinitis Trigger finger, right middle finger Fracture of distal end of left radius with routine healing Superficial abrasion Pneumonia due to COVID-19 virus Acute hypoxemic respiratory failure due to COVID-19 Distal radius fracture, right Renal insufficiency Trigger finger, right middle finger Respiratory tract infection Preoperative clearance Iliac artery stenosis, 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 History of renal calculi Compression fracture of L1 lumbar vertebra Infective endocarditis Glaucoma Left carotid stenosis GERD (gastroesophageal reflux disease) Pulmonary nodule Cardiomyopathy Congestive heart failure Overweight (BMI 25.0-29.9) Carotid artery stenosis PVD (peripheral vascular disease) Dyslipidemia Hypertension CAD (coronary artery disease) Diabetic retinopathy associated with type 2 diabetes mellitus Diabetic polyneuropathy associated with type 2 diabetes mellitus CKD stage 3 due to type 2 diabetes mellitus Diabetic 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 diabetes mellitus FPC (current) use of insulin Surgical History History of repair of right hip joint Hx of shoulder surgery Hx of coronary artery bypass graft Hx of cataract removal with insertion of prosthetic lens Hx of tonsillectomy Hx of appendectomy Hx of arthroscopy of right knee Family History Father Stomach cancer Mother Diabetes Brother Prostate abscess Social History Household Members: Spouse Housing: Apartment Do you presently have visiting nurse or other home services: No Alcohol intake: never Patient Tobacco Use Status: Former Tobacco user Tobacco use type: Cigarette Cigarette Packs Per Day: 0.25 Cigarettes Per Day: 3 Years Smoked: 65 e-Cigarette/Vaping Use: Never Used Second Hand Smoke Exposure: Yes Advance Directives Date on File: 06/08/21 service: No Current occupational status: 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 Cognitive needs: No Hearing needs: No Vision needs: No Review of Systems Const Denies chills, Denies fatigue, Denies fever(s), Denies frequent falls, Denies weakness, Denies weight gain and Denies weight loss ENT Denies dizziness Card Denies chest pain, Denies leg edema, Denies lightheadedness, Denies palpitations, Denies dyspnea, Denies dyspnea on exertion, Denies orthopnea and Denies other (loss of consciousness) Resp Denies cough, Denies dyspnea and Denies dyspnea on exertion GI Denies hematochezia and Denies change in stool character Musc Denies abnormal gait, Denies muscle weakness, Denies numbness, Denies radiating pain into limb and Denies tingling Neuro Denies abnormal gait, Denies dizziness, Denies frequent falls, Denies numbness, Denies tingling and Denies weakness Endo Denies fatigue and Denies palpitations Physical Exam Vital Signs: Last Vital Signs Pulse 63 10/25/24 11:14 BP 120/60 10/25/24 11:14 BMI result Body Mass Index 29.9 Const General: cooperative, comfortable, no acute distress, alert, awake and other (Disheveled) Nutritional Appearance: obese Orientation/consciousness: patient oriented x3 Limitations: no limitations Neck Neck: Yes trachea midline, Yes supple and Yes no JVD Resp Effort & Inspection: normal respiratory effort Auscultation: clear to auscultation bilaterally and diminished lung sounds Cardio Jugular venous distension: no JVD Palpation: normal PMI Rate: regular rate Rhythm: abnormal rhythm with ectopic beats Heart sounds: S1 normal heart sound present, S2 normal heart sound present (soft), no click, no gallops, Murmur heart sound present systolic mid, blowing and decrescendo and Other heart sounds present (Soft to absent S2) Peripheral pulses: other (Reduced distal pulses) GI Auscultation: normal bowel sounds Skin General skin exam: no rashes or lesions noted and ecchymosis Neuro General: patient oriented x3 and no focal motor deficits Extrem General: Yes no clubbing, cyanosis or edema Assessment & Plan Assessment & Plan (1) CHF (congestive heart failure): Comment: Diastolic Code(s): I50.9 - Heart failure, unspecified Category: Medical Qualifiers: Heart failure chronicity: acute on chronic Heart failure type: unspecified Qualified Code(s): I50.9 - Heart failure, unspecified Plan: Congestive heart failure with preserved LV ejection fraction by recent echocardiogram clinically appears to be euvolemic and well compensated. Continue Lasix at current dose. Daily weight monitoring avoidance salt loading was discussed. Continue aggressive blood pressure control although see below with labile blood pressure at this point time. Additional diuretics as need be. Patient overall multiple comorbidities including age, CAD, vascular disease as well as chronic kidney disease that impact his overall prognosis. Heart failure management was discussed. (2) Aortic stenosis: Comment: April 2021, December 2021 1.3 cm November 2022 1.October Code(s): I35.0 - Nonrheumatic aortic (valve) stenosis Category: Medical Plan: Aortic stenosis which clinically appears to be moderate although by echocardiogram is elyi-qh-iylzcsux and remained stable. No significant change in medical therapy. Continue low-dose aspirin therapy for life. Continue aggressive vascular risk factor modification, see below. (3) CAD (coronary artery disease): Code(s): I25.10 - Atherosclerotic heart disease of [place] coronary artery without angina pectoris Category: Medical Qualifiers: Coronary Disease-Associated Artery/Lesion type: [place] artery [place] vs. transplanted heart: [place] heart Associated angina: without angina Qualified Code(s): I25.10 - Atherosclerotic heart disease of [place] coronary artery without angina pectoris Plan: CAD with remote coronary artery bypass grafting with circumflex stenting recently. Patient is currently not having any symptoms suggestive of angina. Continue low-dose aspirin therapy for life. Continue high-intensity statin therapy to target goal LDL less than 70 mg/dL. Continue aggressive diabetes management goal hemoglobin A1c less than 7%. Aggressive management blood pressure, see below. (4) Frequent PVCs: Code(s): I49.3 - Ventricular premature depolarization Category: Medical Plan: Frequent PVCs but without symptoms. Continue metoprolol therapy. No need for antiarrhythmic drug therapy at this point time. LV ejection fraction is preserved. If symptoms increase then will change therapy at that point in time. (5) Labile blood pressure: Code(s): R09.89 - Other specified symptoms and signs involving the circulatory and respiratory systems Category: Medical Plan: Main issues currently labile blood pressure with as per the reported significantly low blood pressure on amlodipine. She then varies the dose of amlodipine. At this point time I have advised to hold amlodipine therapy and monitor blood pressure over the next week multiple times a day and maintain a log. Low-salt diet was discussed. Continue other therapies including isosorbide, metoprolol. Once we establish what his blood pressure ranges off will then titrate his medications accordingly. Advised to maintain adequate hydration. Orthostatic precautions were discussed. Follow up in the clinic in 1 week for blood pressure check in 3 months with me. Thank you for allowing me to partake in his care Medications: Changed From amlodipine 10 mg PO BEDTIME 90 tabs 0RF To amlodipine 10 mg PO BEDTIME PRN Coding Level of Care Code Est Pt Level 4 (85596) Complex EM visit Add On G2211 Diagnoses CHF (congestive heart failure) I50.9 Heart failure chronicity: acute on chronic Heart failure type: unspecified Aortic stenosis I35.0 Coronary artery disease involving [place] coronary artery of [place] heart without angina pectoris I25.10 Coronary Disease-Associated Artery/Lesion type: [place] artery [place] vs. transplanted heart: [place] heart Associated angina: without angina Frequent PVCs I49.3 Labile blood pressure R09.89
[2024-10-25 11:14] VITALS: BP 120/60; PULSE 63; BMI 29.9
--- OUTSIDE RECORDS SUMMARY | 2024-10-25 12:04 | XMS_ITS | Clinical Summary ---
Author Organization [facility] Address [address] [place] [address] Phone Care Team Providers Care Welding Engineer Name Role Phone Marcia Clements MD Primary Care Provider [phone] Allergies No known active allergies Medications adalimumab [...] week Active ergocalciferol (VITAMIN D-2) 1.25 MG (09702 UT) capsule Take 1 capsule by mouth [...] this topic Insurance Medicare Medicare Care Teams Welding Engineer Relationship Specialty Start Date End Date Marcia Clements MD [address] [place], [place] PCP - General 04/03/20
--- OUTSIDE RECORDS SUMMARY | 2024-10-25 12:04 | XMS_ITS | Clinical Summary ---
Author Organization [facility] Address [address] [place] [address] Care Team Providers Care Machine Former Name Role Phone Unavailable Primary Care Provider [...]
--- OUTSIDE RECORDS SUMMARY | 2024-10-25 12:04 | XMS_ITS | Clinical Summary ---
Author Organization [employer] [facility] Address [address] [place] [address] Care Team Providers Care Coffee Maker Servicer Name Role Phone Marcia Clements MD Primary Care Provider [phone] Social History Tobacco Use Types Packs/Day Years [...] age to complete this topic Care Teams Coffee Maker Servicer Relationship Specialty Start Date End Date Marcia Clements MD [address] [place] [address] [address] [facility] [place] [address] PCP - General Internal Medicine 06/01/20
== END 2024-10-25 11:49 | disposition home or self-care (01) ==
LOC: HO.HCS 11:05
PROVIDERS: PCP Internal Medicine; Visit Provider Internal Medicine Cardiovascular Disease
DX: I50.9 Heart failure, unspecified (principal); I35.0 Nonrheumatic aortic (valve) stenosis; I25.10 Atherosclerotic heart disease of native coronary artery without angina pectoris; I49.3 Ventricular premature depolarization; R09.89 Other specified symptoms and signs involving the circulatory and respiratory systems
CPT/HCPCS: 99214; G2211

== ENCOUNTER → 2024-10-25 11:04 | Outpatient (BNVA) | payer OTHER, SELFPAY | PROVIDERS: PCP Internal Medicine; Visit Provider Internal Medicine Cardiovascular Disease | DX: I35.0 Nonrheumatic aortic (valve) stenosis (principal); I50.9 Heart failure, unspecified; I25.10 Atherosclerotic heart disease of native coronary artery without angina pectoris; I49.3 Ventricular premature depolarization; R09.89 Other specified symptoms and signs involving the circulatory and respiratory systems | CPT/HCPCS: 99212 ==

== ENCOUNTER 2024-11-05 11:51 | Outpatient (REF) | payer OTHER, SELFPAY ==
--- OUTSIDE RECORDS SUMMARY | 2024-11-05 11:55 | XMS_ITS | Clinical Summary ---
Author Organization [employer] [facility] Address [address] [place] [address] Care Team Providers Care Corporate Wellness Coordinator Name Role Phone Marcia Clements MD Primary Care Provider [phone] Social History Tobacco Use Types Packs/Day Years [...] age to complete this topic Care Teams Corporate Wellness Coordinator Relationship Specialty Start Date End Date Marcia Clements MD [address] [place] [address] [address] [facility] [place] [address] PCP - General Internal Medicine 06/01/20
--- OUTSIDE RECORDS SUMMARY | 2024-11-05 11:55 | XMS_ITS ---
Author Organization [facility] Care Team Providers Care Fire Coordinator Name Role Phone Brittny Meza Unavailable Unavailable Juana Urban Unavailable Unavailable Allergies and adverse reactions Code CodeSystem Substance Reaction Severity StartDate Concern Status 4603 RXNORM Furosemide Unknown 12/20/2022 active Care Team Name Role Address Phone Organization Dates [facility] Kim Susana [address] [facility] [address], [place], [address], [place] (Office): : : [facility] 12/20/2022 - 01/13/2023 Juana Urban [address] [place], [address], [place] (Office): : : [facility] 12/20/2022 - 01/13/2023 Immunizations Immunization Status Vaccine Details Vaccine Code CodeSystem Date Notes TB 1 Step Mantoux (PPD) completed tuberculin skin test; purified protein derivative solution, intradermal lotNumber: [id number] expiry: 11/23/2023 Mfg: [employer] Given 0.1 ml Left Forearm intradermally [...] completed Pneumococcal conjugate vaccine 20-valent (PCV20), polysaccharide [id number] conjugate, adjuvant, preservative free expiry: 10/22/2025 Mfg: [employer] Given 0.5 ml Right Deltoid intramuscularly 216 CVX created date: 12/30/2022 consent date: 12/30/2022 administere d date: 12/30/2022 Flu Vaccine Prior To Admission (historical only) completed unknown vaccine or immune globulin 999 CVX created date: 12/23/2022 administere d date: 01/12/2022 Influenza Fluzone High Dose 0.7ML dose (CVX 197) completed Influenza, high-dose, split virus, quadrivalent, injectable, preservative free lotNumber: [id number] expiry: 09/21/2023 Mfg: [employer] HD Given 0.7 [...] Concern Status 1 ATHEROSCLEROTIC HEART DISEASE OF [place] CORONARY ARTERY WITHOUT ANGINA PECTORIS 12/21/[id number] active 2 CHRONIC KIDNEY DISEASE, STAGE 3 UNSPECIFIED 12/21/[address] active 3 DISPLACED INTERTROCHANTERIC FRACTURE OF RIGHT FEMUR, SUBSEQUENT ENCOUNTER FOR CLOSED FRACTURE WITH ROUTINE HEALING 12/21/[address] active 4 ESSENTIAL (PRIMARY) HYPERTENSION 12/21/[address] active 5 GASTRO-ESOPHAGEAL REFLUX DISEASE WITHOUT ESOPHAGITIS 12/21/[address] active 6 SKILLED NURSING (CURRENT) USE OF INSULIN 12/21/[address] active 7 TYPE 2 DIABETES MELLITUS WITH DIABETIC CHRONIC KIDNEY DISEASE 12/21/[address] active 8 TYPE 2 DIABETES MELLITUS WITH DIABETIC POLYNEUROPATHY 12/21/[address] active 9 TYPE 2 DIABETES MELLITUS WITH UNSPECIFIED DIABETIC RETINOPATHY WITHOUT MACULAR EDEMA 12/21/[address] active 10 UNSPECIFIED SYSTOLIC (CONGESTIVE) HEART FAILURE 12/21/[address] active Reason for Referral No Reasons for Referral Entered Social History Social History Observation Description Start Date End Date Code Code System Current Smoking Status Tobacco smoking consumption unknown 688770902 SNOMED CT Sex Assigned At Male 1945 89[birth year]-2 [facility] Gender Identity Vital Signs Code Code System Vitals Name Values and Units Timing Information 2339-0 LOINC Blood Sugar Plclz=298.0 Units=mg/dL 01/13/2023 15702-9 LOINC Pain Level Value=0.0 01/13/2023 45013-5 LOINC Weight Saprz=221.0 Units=Lbs 8462-4 LOINC Blood Pressure-Diastolic Value=78 Un its=mmHg 01/13/2023 8480-6 LOINC Blood Pressure-Systolic Smwti=322 Un its=mmHg 01/13/2023 8867-4 [facility] Heart rate Value=72.0 Units=/min 54855-6 [facility] O2 % BldC Oximetry Value=98.0 Units= % 01/13/2023 8310-5 [facility] Body Temperature Value=98.0 Units= F 01/13/2023 9279-1 [facility] Respiratory Rate Value=18.0 Units=/m in 01/12/2023 8302-2 [facility] Height Value=66.0 Units=Inches 12/21/2022
--- OUTSIDE RECORDS SUMMARY | 2024-11-05 11:55 | XMS_ITS | Clinical Summary ---
Author Organization [facility] Address [address] [place] [address] Care Team Providers Care Account Assistant Name Role Phone Unavailable Primary Care Provider [...]
--- OUTSIDE RECORDS SUMMARY | 2024-11-05 11:55 | XMS_ITS | Clinical Summary ---
Author Organization [facility] Address [address] [place] [address] Phone Care Team Providers Care Hand Heel Seat Fitter Name Role Phone Marcia Clements MD Primary Care Provider [phone] Allergies No known active allergies Medications adalimumab [...] week Active ergocalciferol (VITAMIN D-2) 1.25 MG (80086 UT) capsule Take 1 capsule by mouth [...] to complete this topic Insurance Medicare Medicare Member Subscriber Plan / Payer (Ef fective 2020-Present) Name:Deyanira Vitale Relation to Subscriber:Self Name:Deyanira Vitale Payer ID:[id number] ([facility]) Type:Not on file Address: [facility] [id number] [place] [id number] Care Teams Hand Heel Seat Fitter Relationship Specialty Start Date End Date Marcia Clements MD [address] [place], [place] PCP - General 04/03/20
[2024-11-05 14:24] LABS: Anion Gap 16 (12-20); Blood Urea Nitrogen 56 mg/dL (9-16); Calcium 9.3 mg/dL (8.4-10.2); Carbon Dioxide 22 mmol/L (22-29); Chloride 104 mmol/L (96-108); Estimated Glomerular Filt Rate 29; Potassium 5.0 mmol/L (3.3-5.1); Sodium 137 mmol/L (135-145)
== END 2024-11-05 11:52 | disposition home or self-care (01) ==
LOC: HO.LAB 11:51
PROVIDERS: PCP Internal Medicine; Visit Provider Internal Medicine Hypertension Specialist
DX: E11.22 Type 2 diabetes mellitus with diabetic chronic kidney disease (principal); N18.30 Chronic kidney disease, stage 3 unspecified
CPT/HCPCS: 36415; 80048

== ENCOUNTER 2024-11-08 10:13 | Outpatient (AMB) | payer OTHER, SELFPAY ==
[2024-11-08 10:15] VITALS: BP 112/48; PULSE 81; O2SAT 99; BMI 29.5
--- NOTE | 2024-11-08 10:15 | HO.NEPHOV ---
Vital Signs 11/08/24 10:15 Height 5 ft 6 in Weight 183 lb BMI 29.5 BP 112/48 L Blood Pressure Location Rt brachial Position Sitting Pulse 81 Pulse Source Pulse Oximeter Pulse Oximetry (%) 99 Oxygen Delivery Method Room Air Intake Visit Reasons: 2mon follow-up w/labs Conf Coal Mine Inspector Required: No Coal Mine Inspector Services: Coal Mine Inspector Offered & Declined Accompanied by: Spouse Allergies prednisone Allergy (Unknown, Verified 11/08/24 10:18) Unknown amoxicillin (From Augmentin) Adverse Reaction (Intermediate, Verified 11/08/24 10:18) Nausea and Vomiting clavulanic acid (From Augmentin) Adverse Reaction (Intermediate, Verified 11/08/24 10:18) Nausea and Vomiting Medication List - Last Reconciled 11/08/24 by Channing Trevino MD acetaminophen (Tylenol Extra Strength) 500 mg PO Q6H PRN amlodipine 10 mg PO BEDTIME aspirin 81 mg PO BEDTIME betamethasone, augmented 0.05 % 1 appl topical BID PRN blood sugar diagnostic (FreeStyle Lite Strips) As directed four times a day 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 meter ([employer]Style [place] Lite kit) As directed 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 sensor (DiObex G6 Sensor device) As directed 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 transmitter (Dexcom G6 Transmitter device) As directed 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,crystal report developer,cont (Dexcom G6 Compounding Pharmacy Technician) As directed Brilinta (ticagrelor) 90 mg PO BID NS brimonidine 0.15% 1 drp ophthalmic (eye) BID [diabetic shoe lift As directed] [diabetic shoes As directed] docusate sodium 200 mg PO DAILY PRN dorzolamide-timolol 22.3-6.8 mg/mL 1 drp ophthalmic (eye) BID dulaglutide 3 mg subcut WE@0900 furosemide 20 mg PO DAILY gabapentin 300 mg PO BEDTIME [hospital bed As directed] [HOSPITAL BED As directed] insulin lispro (Humalog KwikPen (U-100) Insulin) 6 units (0.06 mL) subcut TIDAC isosorbide mononitrate ER 30 mg PO DAILY lancets (FreeStyle Lancets) As directed check BS QD latanoprost 0.005% 1 drp ophthalmic (eye) BEDTIME metoprolol succinate ER 25 mg PO DAILY pantoprazole 40 mg PO DAILY pen needle, diabetic (BD Martina 2nd Gen Pen Needle) 5 times a day risankizumab-rzaa (Skyrizi) 150 mg subcut [id number] rosuvastatin 40 mg PO DAILY timolol maleate 0.5% 1 drp ophthalmic (eye) BID HPI Comments Details: 78-year-old male with a history of insulin-dependent diabetes mellitus with neuropathy, congestive heart failure with preserved ejection fraction, gastroesophageal reflux disease, coronary artery disease, essential hypertension who presented to the emergency department for evaluation after a fall. Sustained hip fracture. Baseline creatinine is around 1.3-1.4 mg/dL. He underwent hip surgery on 12/10/2022. Creatinine has bumped up to 1.7 mg/dL and he was seen in consultation during hospitalization for DEAN He is here for follow up today Accompanied by family Seen by cardiology recently 09/20/24 The patient is an 79-year-old male presenting with heart failure and chronic kidney disease. The patient has a history of heart failure, for which he underwent heart surgery. He was prescribed a water pill to manage fluid retention, but the initial dose was too strong, leading to dehydration and subsequent hospitalization. He was on Lasix 40 mg QD The patient also reports bruising, which has been attributed to anticoagulation therapy with aspirin . The bruising was noted upon discharge from the hospital and is expected to improve over time. Regarding kidney function, the patient's kidney numbers have improved from 25% to 54% following hospitalization and cessation of the water pill. Urinalysis shows no blood and minimal proteinuria, indicating stable renal function. 11/08/24 The patient is an 79-year-old male presenting for follow-up regarding chronic disease management in the setting of congestive heart failure. The patient reports no difficulty with urination and confirms adherence to prescribed medications, including furosemide. He denies any new medications and reports stable breathing. The patient admits to smoking two to three cigarettes per day and was advised to reduce smoking. The patient's kidney function fluctuates - though slightly lower than previous levels, and his blood pressure is well-controlled. His weight has decreased from 187 to 183 pounds. [facility] Medical History CHF (congestive heart failure) Aortic stenosis PAD (peripheral artery disease) Heel ulcer Tobacco abuse Impacted cerumen of both ears Epidermoid cyst of skin of cheek Mass of face Allergic rhinitis Trigger finger, right middle finger Fracture of distal end of left radius with routine healing Superficial abrasion Pneumonia due to COVID-19 virus Acute hypoxemic respiratory failure due to COVID-19 Distal radius fracture, right Renal insufficiency Trigger finger, right middle finger Respiratory tract infection Preoperative clearance Iliac artery stenosis, 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 History of renal calculi Compression fracture of L1 lumbar vertebra Infective endocarditis Glaucoma Left carotid stenosis GERD (gastroesophageal reflux disease) Pulmonary nodule Cardiomyopathy Congestive heart failure Overweight (BMI 25.0-29.9) Carotid artery stenosis PVD (peripheral vascular disease) Dyslipidemia Hypertension CAD (coronary artery disease) Diabetic retinopathy associated with type 2 diabetes mellitus Diabetic polyneuropathy associated with type 2 diabetes mellitus CKD stage 3 due to type 2 diabetes mellitus Diabetic 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 diabetes mellitus 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 Surgical History History of repair of right hip joint Hx of shoulder surgery Hx of coronary artery bypass graft Hx of cataract removal with insertion of prosthetic lens Hx of tonsillectomy Hx of appendectomy Hx of arthroscopy of right knee Family History Father Stomach cancer Mother Diabetes Brother Prostate abscess Social History Household Members: Spouse Housing: Apartment Do you presently have visiting nurse or other home services: No Alcohol intake: never Patient Tobacco Use Status: Former Tobacco user Tobacco use type: Cigarette Cigarette Packs Per Day: 0.25 Cigarettes Per Day: 3 Years Smoked: 65 e-Cigarette/Vaping Use: Never Used Second Hand Smoke Exposure: Yes Advance Directives Date on File: 06/08/21 service: No Current occupational status: 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 Cognitive needs: No Hearing needs: No Vision needs: No Physical Exam Vital Signs: BMI result Body Mass Index 29.5 Const General: comfortable; No acute distress Orientation/consciousness: patient oriented x3 Eyes General: appearance normal, both eyes and all related structures Visual El: normal visual el by confrontation Neck Neck: Yes supple and Yes no JVD Resp Effort & Inspection: normal respiratory effort and respiratory effort not decreased Cardio Palpation: no palpable S3 and no palpable S4 Heart sounds: no rubs GI Inspection: Yes normal to inspection Palpation (GI): Soft to palpation Percussion: Yes normal to percussion Auscultation: normal bowel sounds General: Yes no CVA tenderness Back/Spine/Pelvis Back: no CVA tenderness Skin General skin exam: no petechiae and no purpura Neuro General: patient oriented x3 and no focal motor deficits Extrem General: No clubbing and No edema Results Reviewed Nephrology Results: Hgb, (14.0-18.0) 10.2 g/dl L 09/20/24 WBC, (4.8-10.8) 8.4 X10*3/uL 09/20/24 Plt Count, (160-400) 174 X10*3/uL 09/20/24 Sodium, (135-145) 137 mmol/L 11/05/24 Potassium, (3.3-5.1) 5.0 mmol/L 11/05/24 Chloride, (96-108) 104 mmol/L 11/05/24 Carbon Dioxide, (22-29) 22 mmol/L 11/05/24 BUN, (9-16) 56 mg/dL H 11/05/24 Creatinine, (0.5-1.4) 2.18 mg/dL H 11/05/24 Calcium, (8.4-10.2) 9.3 mg/dL 11/05/24 Renal US 12/12/22 Assessment & Plan Assessment & Plan (1) CKD stage 3 due to type 2 diabetes mellitus: Code(s): E11.22 - Type 2 diabetes mellitus with diabetic chronic kidney disease; N18.30 - Chronic kidney disease, stage 3 unspecified Category: Medical (2) CHF (congestive heart failure): Comment: Diastolic Code(s): I50.9 - Heart failure, unspecified Category: Medical Qualifiers: Heart failure chronicity: acute on chronic Heart failure type: unspecified Qualified Code(s): I50.9 - Heart failure, unspecified Plan 79-year-old man with chronic kidney disease in the setting of longstanding diabetes mellitus congestive heart failure. He is sustained acute kidney injury most likely due to hypoperfusion. REnal function has improved - close to baseline DEAN due to hypoperfuison h/o CHF Keep Lasix at 20 mg QD instead of 40 mg Stay on low salt diet Continue to avoid nephrotoxic agents. Watch for anemia Maintain BP < 130/80 and A1C < 7% Orders: Orders Basic Metabolic Panel 3 Months E11.22 - Type 2 diabetes mellitus with diabetic chronic kidney disease, N18.30 - Chronic kidney disease, stage 3 unspecified Coding Level of Care Code Est Pt Level 4 (65002) Diagnoses CKD stage 3 due to type 2 diabetes mellitus E11.22; N18.30 CHF (congestive heart failure) I50.9 Heart failure chronicity: acute on chronic Heart failure type: unspecified
--- OUTSIDE RECORDS SUMMARY | 2024-11-08 11:12 | XMS_ITS | Clinical Summary ---
Author Organization [facility] Address [address] [place] [address] Phone Care Team Providers Care Analytical Lab Technician Name Role Phone Marcia Clements MD Primary Care Provider [phone] Allergies No known active allergies Medications adalimumab [...] week Active ergocalciferol (VITAMIN D-2) 1.25 MG (09918 UT) capsule Take 1 capsule by mouth [...] this topic Insurance Medicare Medicare Care Teams Analytical Lab Technician Relationship Specialty Start Date End Date Marcia Clements MD [address] [place], [place] PCP - General 04/03/20
--- OUTSIDE RECORDS SUMMARY | 2024-11-08 11:12 | XMS_ITS | Clinical Summary ---
Author Organization [facility] Address [address] [place] [address] Care Team Providers Care Technical Writer Name Role Phone Unavailable Primary Care Provider [...]
--- OUTSIDE RECORDS SUMMARY | 2024-11-08 11:12 | XMS_ITS | Clinical Summary ---
Author Organization [facility] Address [address] [place] [address] Care Team Providers Care Cloth Shearer Name Role Phone Marcia Clements MD Primary Care Provider [phone] Social History Tobacco Use Types Packs/Day Years [...] age to complete this topic Care Teams Cloth Shearer Relationship Specialty Start Date End Date Marcia Clements MD [address] [place] [address] [address] [facility] [place] [address] PCP - General Internal Medicine 06/01/20
== END 2024-11-08 10:28 | disposition home or self-care (01) ==
LOC: HO.HKA 10:14
PROVIDERS: PCP Internal Medicine; Visit Provider Internal Medicine Hypertension Specialist
DX: E11.22 Type 2 diabetes mellitus with diabetic chronic kidney disease (principal); N18.30 Chronic kidney disease, stage 3 unspecified; I50.9 Heart failure, unspecified
CPT/HCPCS: 99214

== ENCOUNTER → 2024-11-08 10:13 | Outpatient (BNVA) | payer OTHER, SELFPAY | PROVIDERS: PCP Internal Medicine; Visit Provider Internal Medicine Hypertension Specialist | DX: Z00.00 Encounter for general adult medical examination without abnormal findings (principal); E11.65 Type 2 diabetes mellitus with hyperglycemia; E66.3 Overweight; Z68.29 Body mass index [BMI] 29.0-29.9, adult; E78.5 Hyperlipidemia, unspecified; I25.10 Atherosclerotic heart disease of native coronary artery without angina pectoris; I35.0 Nonrheumatic aortic (valve) stenosis; I50.9 Heart failure, unspecified; R09.89 Other specified symptoms and signs involving the circulatory and respiratory systems; F43.21 Adjustment disorder with depressed mood; E11.22 Type 2 diabetes mellitus with diabetic chronic kidney disease; N18.30 Chronic kidney disease, stage 3 unspecified; H91.90 Unspecified hearing loss, unspecified ear; Z79.4 Long term (current) use of insulin; Z79.82 Long term (current) use of aspirin; Z72.0 Tobacco use; Z13.31 Encounter for screening for depression; Z13.39 Encounter for screening examination for other mental health and behavioral disorders | CPT/HCPCS: 83036; 96127; 99212; 99397 ==

== ENCOUNTER 2024-11-08 10:46 | Outpatient (AMB) | payer OTHER, SELFPAY ==
[2024-11-08 10:57] VITALS: BP 114/68; PULSE 77; O2SAT 95; BMI 29.4
--- NOTE | 2024-11-08 10:57 | MHC.PC.OV ---
Vital Signs 11/08/24 10:57 Height 5 ft 6 in Weight 182 lb BMI 29.4 BP 114/68 Blood Pressure Location Lt brachial Position Sitting Pulse 77 Pulse Source Pulse Oximeter Pulse Oximetry (%) 95 Oxygen Delivery Method Room Air Intake Visit Reasons: annual exam - see comments Allergies prednisone Allergy (Unknown, Verified 11/08/24 10:58) Unknown amoxicillin (From Augmentin) Adverse Reaction (Intermediate, Verified 11/08/24 10:58) Nausea and Vomiting clavulanic acid (From Augmentin) Adverse Reaction (Intermediate, Verified 11/08/24 10:58) Nausea and Vomiting Medication List - Last Reconciled 11/08/24 by Marcia Clements MD acetaminophen (Tylenol Extra Strength) 500 mg PO Q6H PRN aspirin 81 mg PO BEDTIME betamethasone, augmented 0.05 % 1 appl topical BID PRN blood sugar diagnostic (FreeStyle Lite Strips) As directed four times a day 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 meter (QuestraStyle [place] Lite kit) As directed 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 sensor ([employer]ex[employer] G6 Sensor device) As directed 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 transmitter (Dexcom G6 Transmitter device) As directed 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,chief resource officer,cont (Dexcom G6 Vp Of Technology) As directed Brilinta (ticagrelor) 90 mg PO BID NS brimonidine 0.15% 1 drp ophthalmic (eye) BID [diabetic shoe lift As directed] [diabetic shoes As directed] docusate sodium 200 mg PO DAILY PRN dorzolamide-timolol 22.3-6.8 mg/mL 1 drp ophthalmic (eye) BID dulaglutide 3 mg subcut WE@0900 furosemide 20 mg PO DAILY gabapentin 300 mg PO BEDTIME [hospital bed As directed] [HOSPITAL BED As directed] insulin lispro (Humalog KwikPen (U-100) Insulin) 10 units subcut TIDAC isosorbide mononitrate ER 30 mg PO DAILY lancets (FreeStyle Lancets) As directed check BS QD latanoprost 0.005% 1 drp ophthalmic (eye) BEDTIME metoprolol succinate ER 25 mg PO DAILY pantoprazole 40 mg PO DAILY pen needle, diabetic (BD Martina 2nd Gen Pen Needle) 5 times a day risankizumab-rzaa (Skyrizi) 150 mg subcut [id number] rosuvastatin 40 mg PO DAILY timolol maleate 0.5% 1 drp ophthalmic (eye) BID Tobacco use date assessed: 09/21/24 Fall risk assessment: No Falls in past year Last assessed Fall Risk: 11/08/24 Dental Screening Dental Screen Date: 03/29/24 [facility] Medical History CHF (congestive heart failure) Aortic stenosis PAD (peripheral artery disease) Heel ulcer Tobacco abuse Impacted cerumen of both ears Epidermoid cyst of skin of cheek Mass of face Allergic rhinitis Trigger finger, right middle finger Fracture of distal end of left radius with routine healing Superficial abrasion Pneumonia due to COVID-19 virus Acute hypoxemic respiratory failure due to COVID-19 Distal radius fracture, right Renal insufficiency Trigger finger, right middle finger Respiratory tract infection Preoperative clearance Iliac artery stenosis, 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 History of renal calculi Compression fracture of L1 lumbar vertebra Infective endocarditis Glaucoma Left carotid stenosis GERD (gastroesophageal reflux disease) Pulmonary nodule Cardiomyopathy Congestive heart failure Overweight (BMI 25.0-29.9) Carotid artery stenosis PVD (peripheral vascular disease) Dyslipidemia Hypertension CAD (coronary artery disease) Diabetic retinopathy associated with type 2 diabetes mellitus Diabetic polyneuropathy associated with type 2 diabetes mellitus CKD stage 3 due to type 2 diabetes mellitus Diabetic 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 diabetes mellitus alf (current) use of insulin Surgical History History of repair of right hip joint Hx of shoulder surgery Hx of coronary artery bypass graft Hx of cataract removal with insertion of prosthetic lens Hx of tonsillectomy Hx of appendectomy Hx of arthroscopy of right knee Family History Father Stomach cancer Mother Diabetes Brother Prostate abscess Social History Household Members: Spouse Housing: Apartment Do you presently have visiting nurse or other home services: No Alcohol intake: never Patient Tobacco Use Status: Former Tobacco user Tobacco use type: Cigarette Cigarette Packs Per Day: 0.25 Cigarettes Per Day: 3 Years Smoked: 65 e-Cigarette/Vaping Use: Never Used Second Hand Smoke Exposure: Yes Advance Directives Date on File: 06/08/21 service: No Current occupational status: 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 1. Little interest or pleasure in doing things: not at all 2. Feeling down, depressed, or hopeless: not at all 3. Trouble falling or staying asleep, or sleeping too much: not at all 4. Feeling tired or having little energy: not at all 5. Poor appetite or overeating: not at all 6. Feeling bad about yourself - or that you are a failure or have let yourself or your family down: not at all 7. Trouble concentrating on things, such as reading the newspaper or watching television: not at all 8. Moving or speaking so slowly that other people could have noticed. Or the opposite - being so fidgety or restless that you have been moving around a lot more than usual: not at all 9. Thoughts that you would be better off or of hurting yourself in some way: not at all Total score: 0 Depression Screening Interpretation: Negative Depression Screening Done: Yes 79777 - PHQ-9 Billing: Yes Source: Developed by Drs. Mendez Warren, Chelsea David, Kane Oakes and colleagues, with an educational charisse from [employer]. Thrive Questionnaire Date Thrive assessed: 09/15/24 AUDIT C Alcohol Use Questionnaire (AUDIT-C) 1. How often do you have a drink containing alcohol?: Never 2. How many drinks containing alcohol do you have on a typical day when you are drinking?: 1 or 2 (0) 3. How often do you have six or more drinks on one occasion?: Never Total Score: 0 THIERNO-7 AMB Questionnaire THIERNO-7 Date THIERNO - 7 assessed: 11/08/24 Feeling nervous, anxious, or on edge: 0 = Not at all Not being able to stop or control worryin = Not at all Worrying too much about different things: 0 = Not at all Trouble relaxin = Not at all Being so restless that it is hard to sit still: 0 = Not at all Becoming easily annoyed or irritable: 0 = Not at all Feeling afraid as if something awful might happen: 0 = Not at all Total THIERNO-7 score (0-4 normal; 5-9 mild; 10-14 moderate; 15-21 severe): 0 Source: Developed by Drs. Mendez Warren, Chelsea David, Kane Oakes and colleagues, with an educational charisse from [employer]. THIERNO-7 Assessment Billing THIERNO-7 Assessment Tool: THIERNO-7 Assessment 80313 Review of Systems Const Denies poor appetite and Denies weakness Eyes Denies no additional complaints ENT Reports Normal hearing present, Denies dizziness, Denies nasal congestion, Denies tinnitus and Denies sore throat Card Denies chest pain, Denies syncope, Denies rapid heart rate and Denies dyspnea Resp Denies cough and Denies dyspnea GI Denies change in stool character, Reports constipation, Denies diarrhea, Denies nausea and Denies vomiting Denies dysuria and Denies urinary frequency Neuro Reports Normal hearing present, Denies confusion, Denies dizziness, Denies syncope and Denies weakness Psych Denies confusion Physical exam (Primary Care) Vital Signs: Last Vital Signs Pulse 77 11/08/24 10:57 BP 114/68 11/08/24 10:57 Pulse Ox 95 11/08/24 10:57 Oxygen Delivery Method Room Air 11/08/24 10:57 BMI result Body Mass Index 29.4 Tobacco/Smoking Status: Tobacco use Status Tobacco use date assessed 09/21/24 11/08/24 10:58 Patient Tobacco Use Status Former Tobacco user 11/08/24 10:58 Tobacco use type Cigarette 11/08/24 10:58 e-Cigarette/Vaping Use Never Used 11/08/24 10:58 PHQ-9: PHQ-9 Score PHQ-9: Total score 0 11/08/24 11:56 Depression Screening Interpretation: Negative Thrive Assessment: Date of Thrive Assessment Date Thrive assessed 09/15/24 11/08/24 10:58 Const General: No confusion Orientation/consciousness: No confusion HENMT Head: Yes normocephalic Ears: external ears normal and TM's normal bilaterally Face and sinus: Yes normal facial exam Mouth: moist mucous membranes Throat: Yes tonsils normal Eyes Conjunctivae: conjunctivae normal Pupils: Equal, round and reactive pupils present and Pupil accommodation reflex normal Direct Ophthalmoscopy: normal light reflex Neck Neck: No lymphadenopathy Thyroid: Thyroid normal Chest Chest palpation & inspection: normal inspection of the chest Resp Effort & Inspection: normal respiratory effort and no audible wheezes Auscultation: clear to auscultation bilaterally, no crackles, no wheezes and lung sounds not diminished Cardio Rate: regular rate Rhythm: regular rhythm Peripheral pulses: radial pulses present and dorsalis pedis present GI Palpation (GI): no masses Auscultation: normal bowel sounds and normoactive bowel sounds Rectal Exam - Male: Yes deferred Skin General skin exam: no rashes or lesions noted Rashes: no rashes Neuro General: No confusion Cranial nerves: Yes Equal, round and reactive pupils present and Yes Normal hearing present Cognition (Neuro): normal cognition Gait exam (Neuro): Normal gait present Motor exam (neuro): 5/5 motor strength present throughout Deep tendon reflexes (DTR's): Right brachioradialis reflex intensity grade: 2+, Left brachioradialis reflex intensity grade: 2+, Right patellar reflex intensity grade: 2+ and Left patellar reflex intensity grade: 2+ Extrem General: No edema Results AMB Hemoglobin A1c AMB Hemoglobin A1c 8.1 % Last Edit by Sarah Johnson CMA on 11/08/24 11:26 Results Reviewed Results Reviewed: Laboratory Last Values Hgb A1c (Clinic) 8.1 % (4.0-6.0) H 11/08/24 10:59 Coding Level of Care Code Est Pt Prev Care >65y(60378) Diagnoses Annual physical exam Z00.00 Tobacco abuse Z72.0 Type 2 diabetes mellitus with hyperglycemia, with long-term current use of insulin E11.65; Z79.4 Diabetes mellitus intermediate manager insulin use: with retirement use Overweight (BMI 25.0-29.9) E66.3 Dyslipidemia E78.5 Coronary artery disease involving [place] coronary artery of [place] heart without angina pectoris I25.10 Associated angina: without angina Coronary Disease-Associated Artery/Lesion type: [place] artery [place] vs. transplanted heart: [place] heart Aortic stenosis I35.0 CHF (congestive heart failure) I50.9 Heart failure chronicity: acute on chronic Heart failure type: unspecified Labile blood pressure R09.89 Situational depression F43.21 CKD stage 3 due to type 2 diabetes mellitus E11.22; N18.30 Gastroesophageal reflux disease without esophagitis K21.9 Esophagitis presence: without esophagitis Hearing difficulty H91.90 Additional Codes THIERNO-7 Assessment Billing - THIERNO-7 Assessment Tool: THIERNO-7 Assessment 74719 ([id number]) PHQ-9 - 90388 - PHQ-9 Billing: Yes ([id number]) Assessment & Plan Assessment & Plan (1) Annual physical exam: Code(s): Z00.00 - Encounter for general adult medical examination without abnormal findings Category: Medical Plan: Patient is advised to eat healthy, keep well hydrated, keep active and have adequate sleep. (2) Tobacco abuse: Comment: stopped 09/2021, continuing February 2023 Code(s): Z72.0 - Tobacco use Category: Medical Plan: Patient is strongly advised to stop smoking (3) Type 2 diabetes mellitus with hyperglycemia: Code(s): E11.65 - Type 2 diabetes mellitus with hyperglycemia Category: Medical Qualifiers: Diabetes mellitus intermediate manager insulin use: with intermediate manager use Qualified Code(s): E11.65 - Type 2 diabetes mellitus with hyperglycemia; Z79.4 - remote computer terminal operator (current) use of insulin Plan: Decrease the amount of carbohydrate intake, pasta, bread, rice and potatoes are all sugar and that is aside from all the sweet stuff, remember that fruits are good but they are Sweet also. Hemoglobin A1c goal of less than 7.0. Patient is on Trulicity the 3 mg once a week (4) Overweight (BMI 25.0-29.9): Code(s): E66.3 - Overweight Category: Medical Plan: Diet and exercise (5) Dyslipidemia: Code(s): E78.5 - Hyperlipidemia, unspecified Category: Medical Plan: Avoid fried foods, chicken skin, eggs, butter margarine, pastries and meat. Be it pork or beef they have a lot of cholesterol LDL goal of less than 70 and triglyceride of less than 150. Patient needs blood work (6) CAD (coronary artery disease): Code(s): I25.10 - Atherosclerotic heart disease of [place] coronary artery without angina pectoris Category: Medical Qualifiers: Associated angina: without angina Coronary Disease-Associated Artery/Lesion type: [place] artery [place] vs. transplanted heart: [place] heart Qualified Code(s): I25.10 - Atherosclerotic heart disease of [place] coronary artery without angina pectoris Plan: Control the cholesterol, weight, blood pressure, diabetes continue with aspirin 81 mg once a day patient is also on Brilinta 90 mg twice a day (7) Aortic stenosis: Comment: April 2021, December 2021 1.3 cm November 2022 1.October Code(s): I35.0 - Nonrheumatic aortic (valve) stenosis Category: Medical Plan: Continuing to monitor (8) CHF (congestive heart failure): Comment: Diastolic Code(s): I50.9 - Heart failure, unspecified Category: Medical Qualifiers: Heart failure chronicity: acute on chronic Heart failure type: unspecified Qualified Code(s): I50.9 - Heart failure, unspecified Plan: Patient is on diuretic weigh daily. (9) Labile blood pressure: Code(s): R09.89 - Other specified symptoms and signs involving the circulatory and respiratory systems Category: Medical Plan: Continue with present medication of blood pressure on amlodipine metoprolol 25 mg once a day (10) Situational depression: Code(s): F43.21 - Adjustment disorder with depressed mood Category: Medical Plan: Discussed about counseling and therapy (11) CKD stage 3 due to type 2 diabetes mellitus: Code(s): E11.22 - Type 2 diabetes mellitus with diabetic chronic kidney disease; N18.30 - Chronic kidney disease, stage 3 unspecified Category: Medical Plan: Keep well hydrated avoid NSAIDs patient follows up with Nephrology (12) GERD (gastroesophageal reflux disease): Code(s): K21.9 - Gastro-esophageal reflux disease without esophagitis Category: Medical Qualifiers: Esophagitis presence: without esophagitis Qualified Code(s): K21.9 - Gastro-esophageal reflux disease without esophagitis Plan: Avoid the foods that causes that usually spicy foods, tomato products, juices, coffee, soda and foods that your sensitive to. After eating do not lie down, allow 3-4 hours before in lie down. And keep the head of bed above 30 degrees to avoid the acid from going up. (13) Hearing difficulty: Code(s): H91.90 - Unspecified hearing loss, unspecified ear Category: Medical Plan History of Present Illness The patient is an 79-year-old male presenting for an annual physical examination. The patient has a history of diabetes mellitus, managed with Trulicity and Humalog, with a hemoglobin A1c of 8.1, indicating suboptimal control. Dietary challenges and limited physical activity contribute to poor glycemic control. Chronic kidney disease stage 3 is present, with stable renal function indicated by a creatinine level of 2.18. Cardiovascular history includes coronary artery disease, cardiomyopathy, and congestive heart failure, managed with aspirin, Brilinta, and statins. Recent echocardiogram findings include moderate aortic stenosis and increased left ventricular wall thickness. Anemia is noted with a hemoglobin level of 10.2, and the patient reports frequent cold sensations. The patient is a smoker and has been advised to quit. Health Maintenance - Preventative care: Colon cancer screening overdue since 2007 - Smoking cessation strongly advised Social History - Substance use: Patient is a smoker - Exercise: Limited physical activity reported - Nutrition: Reports dietary challenges, including limited vegetable intake Review of Systems - General: Reports feeling cold frequently - Cardiovascular: Denies chest pain or palpitations - Respiratory: Denies dyspnea or cough - Gastrointestinal: Denies nausea or vomiting - Neurological: Reports headaches occurring three times a week - Genitourinary: Reports nocturia, waking up twice at night to urinate - Dermatological: Reports itchy skin Physical Exam General: Cooperative, healthy appearing, comfortable, no acute distress and well developed Orientation: Patient oriented x3 Limitations: No limitations Head: Normal to inspection Ears: Hearing impaired, needs testing Nose: Normal external nose present Face and sinus: Normal facial exam Eyes: Appearance normal, both eyes and all related structures Neck: Normal visual inspection and Yes full ROM Respiratory: Normal respiratory effort and able to speak in complete sentences. Clear to auscultation bilaterally Cardiovascular: Regular rate and rhythm. Normal S1 and S2 GI: Normal to inspection. Soft to palpation and nontender Skin: No rashes or lesions noted Neuro: Patient oriented x3 Extremities: Normal to inspection Results - Labs: Hemoglobin A1c 8.1, Hemoglobin 10.2, Creatinine 2.18 - Echocardiogram: Moderate aortic stenosis, increased left ventricular wall thickness, EF 55% Plan The patient is advised to continue with current diabetes management, including Trulicity and Humalog, aiming for a hemoglobin A1c goal of less than 7.0. Dietary modifications and increased physical activity are recommended to improve glycemic control. For chronic kidney disease, regular follow-ups with nephrology are advised, along with maintaining hydration and avoiding NSAIDs. Cardiovascular management includes continuing aspirin, Brilinta, and high-intensity statins, with an LDL goal of less than 70. The patient should monitor weight daily and continue current antihypertensive therapy with metoprolol. Anemia management involves dietary adjustments to increase iron intake, and monitoring for symptoms such as fatigue and cold intolerance. Smoking cessation is strongly advised to improve overall health outcomes. Patient was informed and verbally consented to the use of an ambient scribe for clinic note documentation during this visit. Discussion Notes During the visit, I discussed the importance of managing diabetes with the patient, emphasizing the need to achieve a hemoglobin A1c of less than 7.0 through medication adherence and lifestyle changes. We reviewed the patient's cardiovascular health, including the continuation of aspirin, Brilinta, and statins, and the importance of monitoring LDL levels. I advised the patient on the necessity of smoking cessation and the benefits it would bring to his overall health. Patient Instructions - Continue taking Trulicity and Humalog as prescribed. - Aim for a hemoglobin A1c of less than 7.0. - Increase physical activity and make dietary changes to improve blood sugar control. - Follow up with nephrology regularly and maintain hydration. - Continue taking aspirin, Brilinta, and statins as directed. - Monitor weight daily and continue metoprolol for blood pressure management. - Increase dietary iron intake to manage anemia. - Quit smoking to improve health outcomes. Orders: Orders Complete Blood Count Auto Diff 3 Months E11.22 - Type 2 diabetes mellitus with diabetic chronic kidney disease, N18.30 - Chronic kidney disease, stage 3 unspecified Comprehensive Met. Panel 3 Months E11.22 - Type 2 diabetes mellitus with diabetic chronic kidney disease, N18.30 - Chronic kidney disease, stage 3 unspecified Free T4 (Free Thyroxine) 3 Months E11.22 - Type 2 diabetes mellitus with diabetic chronic kidney disease, N18.30 - Chronic kidney disease, stage 3 unspecified Thyroid Stimulating Hormone 3 Months E11.22 - Type 2 diabetes mellitus with diabetic chronic kidney disease, N18.30 - Chronic kidney disease, stage 3 unspecified Lipid Panel 3 Months E11.22 - Type 2 diabetes mellitus with diabetic chronic kidney disease, E78.00 - Pure hypercholesterolemia, unspecified, N18.30 - Chronic kidney disease, stage 3 unspecified Microalbumin, Random (w Creat) 3 Months E11.22 - Type 2 diabetes mellitus with diabetic chronic kidney disease, E11.65 - Type 2 diabetes mellitus with hyperglycemia, N18.30 - Chronic kidney disease, stage 3 unspecified Creatinine Urine 3 Months E11.22 - Type 2 diabetes mellitus with diabetic chronic kidney disease, E11.65 - Type 2 diabetes mellitus with hyperglycemia, N18.30 - Chronic kidney disease, stage 3 unspecified B Type Natriuretic Peptide 3 Months E11.22 - Type 2 diabetes mellitus with diabetic chronic kidney disease, N18.30 - Chronic kidney disease, stage 3 unspecified AMB Hemoglobin A1c Today Z13.9 - Encounter for screening, unspecified Ferritin 3 Months E11.22 - Type 2 diabetes mellitus with diabetic chronic kidney disease, N18.30 - Chronic kidney disease, stage 3 unspecified IRON PROFILE 3 Months E11.22 - Type 2 diabetes mellitus with diabetic chronic kidney disease, N18.30 - Chronic kidney disease, stage 3 unspecified Reticulocyte Count 3 Months E11.22 - Type 2 diabetes mellitus with diabetic chronic kidney disease, N18.30 - Chronic kidney disease, stage 3 unspecified Vitamin B12 and Folate 3 Months E11.22 - Type 2 diabetes mellitus with diabetic chronic kidney disease, N18.30 - Chronic kidney disease, stage 3 unspecified Referrals Speech and Hearing Referral H91.90 - Unspecified hearing loss, unspecified ear
== END 2024-11-08 12:29 | disposition home or self-care (01) ==
LOC: HO.HMCH 10:47
PROVIDERS: PCP Internal Medicine; Visit Provider Internal Medicine
DX: Z00.00 Encounter for general adult medical examination without abnormal findings (principal); E11.65 Type 2 diabetes mellitus with hyperglycemia; Z79.4 Long term (current) use of insulin; I50.9 Heart failure, unspecified; E11.22 Type 2 diabetes mellitus with diabetic chronic kidney disease; N18.30 Chronic kidney disease, stage 3 unspecified; Z72.0 Tobacco use; E66.3 Overweight; E78.5 Hyperlipidemia, unspecified; I25.10 Atherosclerotic heart disease of native coronary artery without angina pectoris; I35.0 Nonrheumatic aortic (valve) stenosis; R09.89 Other specified symptoms and signs involving the circulatory and respiratory systems

== ENCOUNTER 2025-01-10 08:54 | Emergency (ER) | payer OTHER, SELFPAY ==
--- NOTE | ~2025-01-10 | XR_ITS ---
EXAMINATION: XR KNEE, LEFT CLINICAL INFORMATION: pain COMPARISON: September 25, 2020 TECHNIQUE: AP oblique and cross lateral view of the left knee. FINDINGS: No acute cortical disruption or malalignment. Small marginal osteophyte formation and medial femoral condyle. Asymmetric joint space narrowing involving medial compartment. Exostosis at the anterior superior patella/cholecystectomy insertion. Small volume suprapatellar bursa joint effusion. Osteopenia versus osteoporosis. Vascular calcifications. No subcutaneous edema. No metallic or radiopaque foreign body. XR/XR knee LT 4V IMPRESSION: Medial compartment osteoarthrosis/osteoarthritis, mild. Enthesopathy, quadriceps tendon. Small volume suprapatellar bursa joint effusion. Atherosclerosis disease, peripheral. Electronically signed by: Liban Nj MD 01/10/2025 09:47 AM EDT
[2025-01-10 09:09] VITALS: BMI 29.9
--- NOTE | 2025-01-10 09:12 | ED.EXTPRO ---
HPI - Extremity Problem General Chief complaint: Extremity Problem Stated complaint: Knee pain, multiple complaints? Time Seen by Provider: 01/10/25 08:58 Source: patient, family, old records reviewed and educational sign language interpreter Mode of arrival: ambulatory Limitations: no limitations History of Present Illness ED Provider: HARJIT GREEN Narrative: 79 yo male with PMH of CKD, CAD s/p stent on brilinta and aspirin, CHF, pneumonia, depression, DM, known meniscus tear of his left knee but denies prior surgeries or injections. He comes in with 2 weeks of worsening L knee pain but no rash, no numbness/weakness, no swelling. He takes tylenol ES but no relief. He has the most pain when he tries to get up. He uses a cane. He has an appointment with orthopedics for this in February. No new trauma. He blames the fact that he uses that leg to put most of his weight on post R hip surgery 2 years ago. MD Complaint: joint pain Onset (ago): week(s) (2) Pain Consistency: intermittent Location: left and knee Quality: dull and constant Radiation: none Relieving factors: immobilization Exacerbating factors: weight bearing, walking and palpation Associated symptoms: denies other symptoms Context: other Related Data Home Medications ?Medication ?Instructions ?Recorded ?Confirmed dorzolamide 22.3 mg-timolol 6.8 1 drp ophthalmic (eye) BID 06/07/21 11/08/24 mg/mL eye drops aspirin 81 mg tablet,delayed 81 mg PO BEDTIME 12/09/22 11/08/24 release brimonidine 0.15 % eye drops 1 drp ophthalmic (eye) BID 12/09/22 11/08/24 docusate sodium 100 mg capsule 200 mg PO DAILY PRN Constipation 08/05/23 11/08/24 betamethasone, augmented 0.05 % 1 appl topical BID PRN Rash 09/15/24 11/08/24 topical cream dulaglutide 3 mg/0.5 mL 3 mg subcut WE@0900 09/15/24 11/08/24 subcutaneous pen injector isosorbide mononitrate 30 mg 30 mg PO DAILY 09/15/24 11/08/24 tablet,extended release 24 hr latanoprost 0.005 % eye drops 1 drp ophthalmic (eye) BEDTIME 09/15/24 11/08/24 metoprolol succinate 25 mg 25 mg PO DAILY 09/15/24 11/08/24 tablet,extended release 24 hr risankizumab-rzaa 150 mg/mL 150 mg subcut [id number] 09/15/24 11/08/24 subcutaneous pen injector (Yadiel) timolol maleate 0.5 % eye drops 1 drp ophthalmic (eye) BID 09/15/24 11/08/24 Previous Rx's ?Medication ?Instructions ?Recorded acetaminophen 500 mg tablet 500 mg PO Q6H PRN pain or fever 01/30/21 (Tylenol Extra Strength) #20 tabs 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 meter (FreeStyle #1 ea 08/05/22 [facility] Lite kit) lancets 28 gauge (FreeStyle #100 ea 08/05/22 Lancets) hospital bed #1 ea 01/02/23 HOSPITAL BED #1 ea 01/07/23 diabetic shoe lift #1 ea 03/14/23 diabetic shoes #2 ea 03/14/23 pen needle, diabetic 32 gauge x #400 ea 05/07/23 (BD Martina 2nd Gen Pen Needle) gabapentin 300 mg capsule 300 mg PO BEDTIME #90 caps 08/05/24 furosemide 20 mg tablet 20 mg PO DAILY #30 tabs 09/20/24 blood sugar diagnostic (FreeStyle #150 ea 10/13/24 Lite Strips) pantoprazole 40 mg tablet,delayed 40 mg PO DAILY #90 tabs 10/29/24 release Brilinta 90 mg tablet (ticagrelor) 90 mg PO BID #180 tabs 11/05/24 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 transmitter (Dexcom #1 ea 11/09/24 G6 Transmitter device) rosuvastatin 40 mg tablet 40 mg PO DAILY #90 tabs 12/04/24 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,crab picker,cont #1 ea 12/28/24 (Dexcom G6 Natural [employer] Trader) 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 sensor (Dexcom G6 #3 ea 12/29/24 Sensor device) insulin lispro 100 unit/mL 10 unit (0.1 mL) subcut TIDAC #15 12/30/24 subcutaneous pen (Humalog KwikPen mL (U-100) Insulin) lidocaine 5 % topical ointment 1 appl topical BID PRN pain #30 01/10/25 grams oxycodone 5 mg tablet 5 mg PO BID PRN pain #8 tabs 01/10/25 Allergies Allergy/AdvReac Type Severity Reaction Status Date / Time prednisone Allergy Unknown Unknown Verified 01/10/25 09:13 amoxicillin (From Augmentin) AdvReac Intermediate Nausea and Verified 01/10/25 09:13 Vomiting clavulanic acid (From AdvReac Intermediate Nausea and Verified 01/10/25 09:13 Augmentin) Vomiting Review of Systems Review of Systems: Constitutional : No Fever, No Chills Cardiovascular : No Chest Pain, No SOB Respiratory : No Cough, No Dyspnea Musculoskeletal : positive joint pain, No Myalgias, No Joint Swelling Skin : No Skin lacerations, No rash Neuro : No Weakness, No Numbness All other systems reviewed and are negative Yes all other systems are reviewed and are negative [facility] Past Medical History Attestation statement: The following information was validated with the patient. Source: old records reviewed Medical History CHF (congestive heart failure) Aortic stenosis PAD (peripheral artery disease) Heel ulcer Tobacco abuse Impacted cerumen of both ears Epidermoid cyst of skin of cheek Mass of face Allergic rhinitis Trigger finger, right middle finger Fracture of distal end of left radius with routine healing Superficial abrasion Pneumonia due to COVID-19 virus Acute hypoxemic respiratory failure due to COVID-19 Distal radius fracture, right Renal insufficiency Trigger finger, right middle finger Respiratory tract infection Preoperative clearance Iliac artery stenosis, 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 History of renal calculi Compression fracture of L1 lumbar vertebra Infective endocarditis Glaucoma Left carotid stenosis GERD (gastroesophageal reflux disease) Pulmonary nodule Cardiomyopathy Congestive heart failure Overweight (BMI 25.0-29.9) Carotid artery stenosis PVD (peripheral vascular disease) Dyslipidemia Hypertension CAD (coronary artery disease) Diabetic retinopathy associated with type 2 diabetes mellitus Diabetic polyneuropathy associated with type 2 diabetes mellitus CKD stage 3 due to type 2 diabetes mellitus Diabetic 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 diabetes mellitus 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 Surgical History History of repair of right hip joint Hx of shoulder surgery Hx of coronary artery bypass graft Hx of cataract removal with insertion of prosthetic lens Hx of tonsillectomy Hx of appendectomy Hx of arthroscopy of right knee Family History Family History Father Stomach cancer Mother Diabetes Brother Prostate abscess Social History Social History Household Members: Spouse Housing: Apartment Do you presently have visiting nurse or other home services: No Alcohol intake: never Patient Tobacco Use Status: Former Tobacco user Tobacco use type: Cigarette Cigarette Packs Per Day: 0.25 Cigarettes Per Day: 3 Years Smoked: 65 e-Cigarette/Vaping Use: Never Used Second Hand Smoke Exposure: Yes Advance Directives: Yes Advance Directives on File: Yes Advance Directives Date on File: 06/08/21 service: No Current occupational status: 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 Cognitive needs: No Hearing needs: No Vision needs: No Physical Exam Vital Signs: Vital Signs: Last Vital Signs Temp 97.7 F 01/10/25 09:14 Pulse 81 01/10/25 09:14 Resp 18 01/10/25 09:14 BP 133/50 L 01/10/25 09:14 Pulse Ox 98 01/10/25 09:14 O2 Del Method Room Air 01/10/25 09:14 BMI result Body Mass Index 29.9 Appearance: Alert. Oriented X3. No acute distress. Eyes: Pupils equal, round and reactive to light. ENT: Pharynx normal. Neck: Normal inspection. CVS: Pulses normal. Respiratory: No respiratory distress. Abdomen: atraumatic Skin: Skin warm and dry. Normal skin color. Extremities: No lower extremity edema. distal L leg pulses intact, knee he can flex and bend no pain and no effusion noted, he has no rash or signs of infection. He notes pain inside the knee when he stands. Neuro: Oriented X 3. No motor deficit. No sensory deficit. Medications Administered Discontinued Medications Generic Name Dose Route Start Last Admin Trade Name Freq PRN Reason Stop Dose Admin Lidocaine HCl 1 appl 01/10/25 09:10 01/10/25 09:40 Lidocaine 4 % Cream Kit TOPICAL 01/10/25 09:11 Not Given ONCE ONE Protocol Oxycodone HCl 5 mg 01/10/25 09:10 01/10/25 09:26 Oxycodone Hcl Immed Release 5 Mg Tablet PO 01/10/25 09:11 5 mg ONCE ONE Administration Medical Decision Making Medical Decision Making MDM Narrative: 79 yo male with PMH of CKD, CAD s/p stent on brilinta and aspirin, CHF, pneumonia, depression, DM, known meniscus tear of his left knee now here with worsening chronic pain of L knee. He has no signs of infection, no calf pain no effusion. He will get xray and topical lidocaine with short course of pain control. His family is hoping to get him into orthopedics sooner. He is warm and I can palpate pulses pain only present when he gets up to stand I do not think this is acute occlusion or PAD contributing to localized knee pain. He already has a cane at home. Differential Diagnosis Differential Diagnoses: The differential diagnosis associated with the presentation includes arthritis, known meniscus injury, internal derangement of knee Admission/Observation Consideration of admission/observation: Escalation of care including admission/observation considered Independent Interpretation I performed an independent interpretation of an: Plain X-Ray (no fx) Radiology Impression Discussion of test interpretation with radiology: I have reviewed the radiologist's reading. Independent Historian Clinical information obtained from an independent historian. History obtained from or confirmed by: Spouse External Record Review External record reviewed: Outpatient record Prescription Management I considered prescription management with: Pain Medication Discharge Plan Discharge Clinical Impression: Arthralgia of knee, left Patient Disposition: Home, Self-Care Instructions: Knee Pain (ED) Additional Instructions: return for fevers, cold blue foot, increased swelling or any other concerns no broken bones on xray you need to follow up with your primary care doctor and orthopedic doctor for further work up and concerns continue to use your cane Medial compartment osteoarthrosis/osteoarthritis, mild. Enthesopathy, quadriceps tendon. Small volume suprapatellar bursa joint effusion. these findings require orthopedic follow up and pain control. Prescriptions: New lidocaine 5 % ointment 1 appl topical BID PRN (Reason: pain) Qty: 30 0RF oxycodone 5 mg tablet 5 mg PO BID PRN (Reason: pain) Qty: 8 0RF Rx Instructions: Partial Fill upon patient request. No Action (DME) hospital bed See Rx Instructions .Route .MEDSUPPLY Qty: 1 0RF Rx Instructions: As directed (DME) HOSPITAL BED See Rx Instructions .Route .MEDSUPPLY Qty: 1 0RF Rx Instructions: As directed (DME) diabetic shoe lift 1 inch See Rx Instructions .Route .MEDSUPPLY Qty: 1 0RF Rx Instructions: As directed (DME) diabetic shoes See Rx Instructions .Route .MEDSUPPLY Qty: 2 0RF Rx Instructions: As directed gabapentin 300 mg capsule 300 mg PO BEDTIME Qty: 90 2RF (DME) FreeStyle Lite Strips Strip See Rx Instructions .ROUTE .MEDSUPPLY Qty: 150 11RF Rx Instructions: As directed four times a day pantoprazole 40 mg tablet,delayed release (DR/EC) 40 mg PO DAILY Qty: 90 2RF ticagrelor [Brilinta] 90 mg tablet 90 mg PO BID Qty: 180 0RF (DME) Dexcom G6 Transmitter Device See Rx Instructions .ROUTE .MEDSUPPLY Qty: 1 0RF Rx Instructions: As directed rosuvastatin 40 mg tablet 40 mg PO DAILY Qty: 90 0RF (DME) Dexcom G6 [employer] Trader Misc See Rx Instructions .ROUTE .MEDSUPPLY Qty: 1 0RF Rx Instructions: As directed (DME) Dexcom G6 Sensor Device See Rx Instructions .ROUTE .MEDSUPPLY Qty: 3 3RF Rx Instructions: As directed- change sensor every 10 days insulin lispro [Humalog KwikPen Insulin] 100 unit/mL insulin pen 10 unit subcut TIDAC Qty: 15 3RF Rx Instructions: before meals as directed acetaminophen [Tylenol Extra Strength] 500 mg tablet 500 mg PO Q6H PRN (Reason: pain or fever) Qty: 20 0RF dorzolamide-timolol 22.3-6.8 mg/mL drops 1 drp ophthalmic (eye) BID brimonidine 0.15 % drops 1 drp ophthalmic (eye) BID aspirin 81 mg tablet,delayed release (DR/EC) 81 mg PO BEDTIME latanoprost 0.005 % drops 1 drp ophthalmic (eye) BEDTIME betamethasone, augmented 0.05 % cream 1 appl topical BID PRN (Reason: Rash) metoprolol succinate 25 mg tablet extended release 24 hr 25 mg PO DAILY timolol maleate 0.5 % drops 1 drp ophthalmic (eye) BID Skyrizi 150 mg/mL pen injector 150 mg SUBCUT [id number] isosorbide mononitrate 30 mg tablet extended release 24 hr 30 mg PO DAILY dulaglutide 3 mg/0.5 mL pen injector 3 mg subcut WE@0900 (DME) 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 meter [FreeStyle [facility] Lite] Kit See Rx Instructions .ROUTE .MEDSUPPLY Qty: 1 0RF Rx Instructions: As directed (DME) lancets [FreeStyle Lancets] 28 gauge misc See Rx Instructions .ROUTE .MEDSUPPLY Qty: 100 3RF Rx Instructions: As directed check BS QD (DME) pen needle, diabetic [BD Martina 2nd Gen Pen Needle] 32 gauge x 5/32 needle See Rx Instructions .MEDSUPPLY Qty: 400 4RF Rx Instructions: 5 times a day furosemide 20 mg tablet 20 mg PO DAILY Qty: 30 3RF docusate sodium 100 mg capsule 200 mg PO DAILY PRN (Reason: Constipation) Print Language: Belarusian
[2025-01-10 09:14] VITALS: BP 133/50; PULSE 81; RESP 18; TEMP 36.5; O2SAT 98
[2025-01-10] MEDS: oxyCODONE HCl Immed Release 5 MG TABLET PO (09:26)
[2025-01-10 11:06] VITALS: BP 133/50; PULSE 81; RESP 18; TEMP 36.5; O2SAT 98
== END 2025-01-10 11:08 | disposition home or self-care (01) ==
PROVIDERS: Emergency Provider Emergency Medicine; PCP Internal Medicine
DX: M25.562 Pain in left knee (principal); E11.22 Type 2 diabetes mellitus with diabetic chronic kidney disease; N18.9 Chronic kidney disease, unspecified; I25.10 Atherosclerotic heart disease of native coronary artery without angina pectoris
CPT/HCPCS: 73564; 99283

== ENCOUNTER → 2025-01-10 09:10 | Outpatient (BNV) | payer OTHER, SELFPAY | PROVIDERS: Emergency Provider Emergency Medicine; PCP Internal Medicine; Visit Provider Radiology Diagnostic Radiology | DX: M17.12 Unilateral primary osteoarthritis, left knee (principal); M76.892 Other specified enthesopathies of left lower limb, excluding foot; I70.202 Unspecified atherosclerosis of native arteries of extremities, left leg; M25.462 Effusion, left knee | CPT/HCPCS: 73564 ==

== ENCOUNTER 2025-02-01 12:54 | Outpatient (AMB) | payer OTHER, SELFPAY ==
[2025-02-01 13:32] VITALS: BP 118/56; PULSE 88; BMI 30.2
--- NOTE | 2025-02-01 13:32 | A.OFFVIS_ITS ---
Vital Signs 02/01/25 13:32 Height 5 ft 6 in Weight 187 lb 6.287 oz BMI 30.2 BP 118/56 L Blood Pressure Location Lt brachial Position Sitting Pulse 88 Pulse Source Pulse Oximeter Intake Visit Reasons: 3 mth f/up NS Surgical Manager Required: Yes Surgical Manager Services: Surgical Manager Offered & Declined Accompanied by: Daughter Allergies prednisone Allergy (Unknown, Verified 02/01/25 13:38) Unknown amoxicillin (From Augmentin) Adverse Reaction (Intermediate, Verified 02/01/25 13:38) Nausea and Vomiting clavulanic acid (From Augmentin) Adverse Reaction (Intermediate, Verified 02/01/25 13:38) Nausea and Vomiting Medication List - Last Reconciled 02/01/25 by Grabiel Leija NP acetaminophen (Tylenol Extra Strength) 500 mg PO Q6H PRN aspirin 81 mg PO BEDTIME betamethasone, augmented 0.05 % 1 appl topical BID PRN blood sugar diagnostic (FreeStyle Lite Strips) As directed four times a day 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 meter (RazzStyle Mccormick Lite kit) As directed 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 sensor (Find That File G6 Sensor device) As directed- change sensor every 10 days 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 transmitter (Dexcom G6 Transmitter device) As directed 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,dehydrogenation operator,cont (Dexcom G6 Air Traffic Control Operator) As directed Brilinta (ticagrelor) 90 mg PO BID NS brimonidine 0.15% 1 drp ophthalmic (eye) BID [diabetic shoe lift As directed] [diabetic shoes As directed] docusate sodium 200 mg PO DAILY PRN dorzolamide-timolol 22.3-6.8 mg/mL 1 drp ophthalmic (eye) BID dulaglutide 3 mg subcut WE@0900 furosemide 20 mg PO DAILY gabapentin 300 mg PO BEDTIME [hospital bed As directed] [HOSPITAL BED As directed] insulin lispro (Humalog KwikPen (U-100) Insulin) 10 units (0.1 mL) subcut TIDAC isosorbide mononitrate ER 30 mg PO DAILY lancets (FreeStyle Lancets) As directed check BS QD latanoprost 0.005% 1 drp ophthalmic (eye) BEDTIME lidocaine 5% 1 appl topical BID PRN metoprolol succinate ER 25 mg PO DAILY oxycodone 5 mg PO BID PRN pantoprazole 40 mg PO DAILY pen needle, diabetic (BD Martina 2nd Gen Pen Needle) 5 times a day risankizumab-rzaa (Skyrizi) 150 mg subcut [id number] rosuvastatin 40 mg PO DAILY timolol maleate 0.5% 1 drp ophthalmic (eye) BID HPI Comments Details: This is an 79-year-old male patient coming in for a follow-up visit, accompanied by his granddaughter. Patient with a history of hypertension, hyperlipidemia, coronary artery disease with prior CABG, CHF, and aortic stenosis. At the last visit, patient had reported low blood pressures intermittently for which patient was not taking his med amlodipine regularly and therefore this was changed to p.r.n.. Today, patient is reporting stable blood pressures at home and is denying any symptoms of exertional chest pain, shortness of breath, palpitations, dizziness, orthopnea, PND, leg edema, presyncope, or syncope. Patient is reporting compliance with all his medications. [facility] Medical History CHF (congestive heart failure) Aortic stenosis PAD (peripheral artery disease) Heel ulcer Tobacco abuse Impacted cerumen of both ears Epidermoid cyst of skin of cheek Mass of face Allergic rhinitis Trigger finger, right middle finger Fracture of distal end of left radius with routine healing Superficial abrasion Pneumonia due to COVID-19 virus Acute hypoxemic respiratory failure due to COVID-19 Distal radius fracture, right Renal insufficiency Trigger finger, right middle finger Respiratory tract infection Preoperative clearance Iliac artery stenosis, 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 History of renal calculi Compression fracture of L1 lumbar vertebra Infective endocarditis Glaucoma Left carotid stenosis GERD (gastroesophageal reflux disease) Pulmonary nodule Cardiomyopathy Congestive heart failure Overweight (BMI 25.0-29.9) Carotid artery stenosis PVD (peripheral vascular disease) Dyslipidemia Hypertension CAD (coronary artery disease) Diabetic retinopathy associated with type 2 diabetes mellitus Diabetic polyneuropathy associated with type 2 diabetes mellitus CKD stage 3 due to type 2 diabetes mellitus Diabetic 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 diabetes mellitus 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 Surgical History History of repair of right hip joint Hx of shoulder surgery Hx of coronary artery bypass graft Hx of cataract removal with insertion of prosthetic lens Hx of tonsillectomy Hx of appendectomy Hx of arthroscopy of right knee Family History Father Stomach cancer Mother Diabetes Brother Prostate abscess Social History Household Members: Spouse Housing: Apartment Do you presently have visiting nurse or other home services: No Alcohol intake: never Patient Tobacco Use Status: Former Tobacco user Tobacco use type: Cigarette Cigarette Packs Per Day: 0.25 Cigarettes Per Day: 3 Years Smoked: 65 e-Cigarette/Vaping Use: Never Used Second Hand Smoke Exposure: Yes Advance Directives Date on File: 06/08/21 service: No Current occupational status: 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 Cognitive needs: No Hearing needs: No Vision needs: No Review of Systems Const Denies daytime sleepiness, Denies difficulty sleeping, Denies snoring, Denies stops breathing during sleep and Denies weakness Card Denies chest pain, Denies rapid heart rate, Denies irregular heart rhythm, Denies claudication, Denies leg edema, Denies lightheadedness, Denies palpitations, Denies dyspnea, Denies dyspnea on exertion, Denies orthopnea, Denies paroxysmal nocturnal dyspnea and Denies slow heart rate Resp Denies cough, Denies dyspnea, Denies dyspnea on exertion and Denies snoring GI Reports no additional complaints, Denies hematochezia, Denies change in stool character and Denies dyspepsia Musc Denies abnormal gait, Denies muscle weakness and Denies numbness Neuro Denies abnormal gait, Denies numbness and Denies weakness Endo Denies palpitations Physical Exam Vital Signs: Last Vital Signs Pulse 88 02/01/25 13:32 BP 118/56 L 02/01/25 13:32 BMI result Body Mass Index 30.2 Const General: cooperative, healthy appearing, comfortable and no acute distress Orientation/consciousness: patient oriented x3 HEENT Head: Yes normal to inspection Neck Neck: Yes normal visual inspection, Yes trachea midline and Yes supple Chest Chest palpation & inspection: normal inspection of the chest Resp Effort & Inspection: normal respiratory effort Auscultation: clear to auscultation bilaterally, no crackles, no rales, no rhonchi and no wheezes Cardio Jugular venous distension: no JVD Palpation: normal PMI Rate: regular rate Rhythm: regular rhythm Heart sounds: S1 normal heart sound present, S2 normal heart sound present, no click, no gallops, Murmur heart sound present and no rubs Peripheral pulses: Peripheral pulses 2+ throughout GI Inspection: Yes normal to inspection Palpation (GI): Soft to palpation Auscultation: normal bowel sounds Skin General skin exam: no rashes or lesions noted Neuro General: patient oriented x3 Extrem General: Yes normal to inspection, No no pedal edema and No calf tenderness Psych Appearance: grossly normal Mental Status: mental status grossly normal Speech and movement: Normal speech and movement present Assessment & Plan Assessment & Plan (1) CHF (congestive heart failure): Comment: Diastolic Code(s): I50.9 - Heart failure, unspecified Category: Medical Qualifiers: Heart failure chronicity: acute on chronic Heart failure type: unspecified Qualified Code(s): I50.9 - Heart failure, unspecified Plan: 09/15/2024-echo study showed normal LV systolic function with an ejection fraction at 57%, severe septal asymmetric hypertrophy, [id number] aortic valve sclerosis, and moderate mitral annular calcification. Clinically euvolemic and stable. Continue with Lasix therapy. Advised on a low-salt diet, daily weight monitoring, and compression socks as needed for leg edema. Signs symptoms of heart failure as well as coronal signs for was discussed with the patient. (2) CAD (coronary artery disease): Code(s): I25.10 - Atherosclerotic heart disease of [place] coronary artery without angina pectoris Category: Medical Qualifiers: Associated angina: without angina Coronary Disease-Associated Artery/Lesion type: [place] artery [place] vs. transplanted heart: [place] heart Qualified Code(s): I25.10 - Atherosclerotic heart disease of [place] coronary artery without angina pectoris Plan: History of coronary artery disease with CABG x3 in 2014. More recently on 07/03/2024, patient underwent a repeat cardiac catheterization for NSTEMI and chest pain at [facility] that showed severe disease in the distal LPL branches and underwent stenting. Continue with Brilinta and aspirin therapy. No reported signs of bleeding or falls. Continue with isosorbide, metoprolol, and statin therapy. Continue with the aggressive management. (3) Aortic stenosis: Comment: April 2021, December 2021 1.3 cm November 2022 1.October Code(s): I35.0 - Nonrheumatic aortic (valve) stenosis Category: Medical Plan: As above. (4) PVC (premature ventricular contraction): Code(s): I49.3 - Ventricular premature depolarization Category: Medical Plan: Asymptomatic PVCs. Continue with metoprolol therapy. (5) Dyslipidemia: Code(s): E78.5 - Hyperlipidemia, unspecified Category: Medical Plan: Last LDL back from July of 2023 at 42. Continue statin therapy with an LDL goal less than 50. We will update lipid profile. 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 Ideally, patient's A1c goal should be less than 7%. Continue aggressive management of diabetes. Followed by PCP. (7) Labile blood pressure: Code(s): R09.89 - Other specified symptoms and signs involving the circulatory and respiratory systems Category: Medical Plan: Blood pressure is well-controlled. Patient reports blood pressures has been stable at home without the amlodipine. Continue the same. Advised monitoring blood pressures with a goal less than 130/80. Advised maintaining a log. Advised on heart healthy diet, regular exercise, med compliance, and aggressive management of vascular risk factors. Follow up in 3 months. In the interim, patient will call the office with any concerns or change in symptoms. This note was generated using voice recognition software. While every effort has been made to ensure accuracy and proper building engineer, there may be occasional errors that could affect the content or meaning of the described symptoms. Orders: Orders Lipid Panel Today I25.10 - Atherosclerotic heart disease of [place] coronary artery without angina pectoris Coding Level of Care Code Est Pt Level 4 (67384) Complex EM visit Add On G2211 Diagnoses CHF (congestive heart failure) I50.9 Heart failure chronicity: acute on chronic Heart failure type: unspecified Coronary artery disease involving [place] coronary artery of [place] heart without angina pectoris I25.10 Associated angina: without angina Coronary Disease-Associated Artery/Lesion type: [place] artery [place] vs. transplanted heart: [place] heart Aortic stenosis I35.0 PVC (premature ventricular contraction) I49.3 Dyslipidemia E78.5 Type 2 diabetes mellitus with hyperglycemia, with long-term current use of insulin E11.65; Z79.4 Diabetes mellitus shelter insulin use: with termination clerk use Labile blood pressure R09.89 Time Spent (min) 34 Comment Time spent in reviewing the chart, test results, assessment, counseling and documentation.
--- OUTSIDE RECORDS SUMMARY | 2025-02-01 14:37 | XMS_ITS | Clinical Summary ---
Author Organization [facility] Address [address] [place] [address] Care Team Providers Care Automotive Mechanic Name Role Phone Unavailable Primary Care Provider [...] Health Maintenance Due Date Last Done Comments Advance Care Planning 1945 DTaP/Tdap/Td Vaccines (1 - Tdap) 07/21/1963 Pneumococcal Vaccines 50+ (1 of 1 - PCV) 1994 Zoster (Shingles) Vaccine (1 of 2) 1994 RSV Vaccine 50 years and old er and Patients (1 - 1-dose 75+ series) 07/21/2019 Influenza Vaccine 10/22/2024 COVID-19 Vaccine (1 - 4-2 5 season) 2024 Hepatitis B Vaccines Aged Out No long er eligible based on patient's age to complete this topic Insurance MEDICARE PART A & B
--- OUTSIDE RECORDS SUMMARY | 2025-02-01 14:37 | XMS_ITS ---
Author Organization [facility] [place] Care Team Providers Care School Health Assistant Name Role Phone Brittny Meza Unavailable Unavailable Juana Urban Unavailable Unavailable Allergies and adverse reactions Code CodeSystem Substance Reaction Severity StartDate Concern Status 4603 RXNORM Furosemide Unknown 12/20/2022 active Care Team Name Role Address Phone Organization Dates Casajagd[facility] Julio Meza [address], [place], [address], [place] (Office): : : [facility] [place] 12/20/2022 - 01/13/2023 Juana Urban [address] [place], [address], [place] (Office): : : [facility] [place] 12/20/2022 - 01/13/2023 Immunizations Immunization Status Vaccine Details Vaccine Code CodeSystem Date Notes TB 1 Step Mantoux (PPD) completed tuberculin skin test; purified protein derivative solution, intradermal lotNumber: [id number] expiry: 11/23/2023 Mfg: [employer] Given 0.1 ml Left Forearm intradermally [...] completed Pneumococcal conjugate vaccine 20-valent (PCV20), polysaccharide [id number] conjugate, adjuvant, preservative free expiry: 10/22/2025 Mfg: [employer] Given 0.5 ml Right Deltoid intramuscularly 216 CVX created date: 12/30/2022 consent date: 12/30/2022 administere d date: 12/30/2022 Flu Vaccine Prior To Admission (historical only) completed unknown vaccine or immune globulin 999 CVX created date: 12/23/2022 administere d date: 01/12/2022 Influenza Fluzone High Dose 0.7ML dose (CVX 197) completed Influenza, high-dose, split virus, quadrivalent, injectable, preservative free lotNumber: [id number] expiry: 09/21/2023 Mfg: Fluzone HD Given 0.7 ml Right Deltoid intramuscularly 197 CVX created date: 12/25/2022 consent date: 12/25/2022 administere d date: 12/25/2022 Mental Status Section Date Assessment Total Score Description 01/13/2023 BIMS 14 cognitively int act CAM 0 No delirium ind icated PHQ-9 00 12/26/2022 BIMS 14 cognitively int act CAM 0 No delirium ind icated PHQ-9 00 Insurance Providers Problems Problem # Description Date of onset Resolved Date Code CodeSystem Concern Status 1 ATHEROSCLEROTIC HEART DISEASE OF [place] CORONARY ARTERY WITHOUT ANGINA PECTORIS 12/21/[id number] active 2 CHRONIC KIDNEY DISEASE, STAGE 3 UNSPECIFIED 12/21/[address] active 3 DISPLACED INTERTROCHANTERIC FRACTURE OF RIGHT FEMUR, SUBSEQUENT ENCOUNTER FOR CLOSED FRACTURE WITH ROUTINE HEALING 12/21/[address] active 4 ESSENTIAL (PRIMARY) HYPERTENSION 12/21/[address] active 5 GASTRO-ESOPHAGEAL REFLUX DISEASE WITHOUT ESOPHAGITIS 12/21/[address] active 6 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 12/21/[address] active 7 TYPE 2 DIABETES MELLITUS WITH DIABETIC CHRONIC KIDNEY DISEASE 12/21/[address] active 8 TYPE 2 DIABETES MELLITUS WITH DIABETIC POLYNEUROPATHY 12/21/[address] active 9 TYPE 2 DIABETES MELLITUS WITH UNSPECIFIED DIABETIC RETINOPATHY WITHOUT MACULAR EDEMA 12/21/[address] active 10 UNSPECIFIED SYSTOLIC (CONGESTIVE) HEART FAILURE 12/21/[address] active Reason for Referral No Reasons for Referral Entered Social History Social History Observation Description Start Date End Date Code Code System Current Smoking Status Tobacco smoking consumption unknown 788137795 SNOMED CT Sex Assigned At Male 1945 18335-5 [facility] Gender Identity Sexual Orientation Vital Signs Code Code System Vitals Name Values and Units Timing Information 2339-0 LOINC Blood Sugar Aahhl=097.0 Units=mg/dL 01/13/2023 39354-8 LOINC Pain Level Value=0.0 01/13/2023 91316-8 LOINC Weight Lverb=389.0 Units=Lbs 8462-4 LOINC Blood Pressure-Diastolic Value=78 Un its=mmHg 01/13/2023 8480-6 LOINC Blood Pressure-Systolic Acach=763 Un its=mmHg 01/13/2023 8867-4 [facility] Heart rate Value=72.0 Units=/min 48362-9 [facility] O2 % BldC Oximetry Value=98.0 Units= % 01/13/2023 8310-5 [facility] Body Temperature Value=98.0 Units= F 01/13/2023 9279-1 [facility] Respiratory Rate Value=18.0 Units=/m in 01/12/2023 8302-2 [facility] Height Value=66.0 Units=Inches 12/21/2022
== END 2025-02-01 13:58 | disposition home or self-care (01) ==
LOC: HO.HCS 12:54
PROVIDERS: PCP Internal Medicine
DX: I50.9 Heart failure, unspecified (principal); I25.10 Atherosclerotic heart disease of native coronary artery without angina pectoris; I35.0 Nonrheumatic aortic (valve) stenosis; I49.3 Ventricular premature depolarization; E78.5 Hyperlipidemia, unspecified; E11.65 Type 2 diabetes mellitus with hyperglycemia; Z79.4 Long term (current) use of insulin; R09.89 Other specified symptoms and signs involving the circulatory and respiratory systems
CPT/HCPCS: 99214; G2211

== ENCOUNTER → 2025-02-01 12:54 | Outpatient (BNVA) | payer OTHER, SELFPAY | PROVIDERS: PCP Internal Medicine | DX: I25.10 Atherosclerotic heart disease of native coronary artery without angina pectoris (principal); I35.0 Nonrheumatic aortic (valve) stenosis; E78.5 Hyperlipidemia, unspecified; E11.65 Type 2 diabetes mellitus with hyperglycemia; Z79.4 Long term (current) use of insulin; R09.89 Other specified symptoms and signs involving the circulatory and respiratory systems | CPT/HCPCS: 99212 ==

== ENCOUNTER 2025-02-07 10:33 | Outpatient (AMB) | payer OTHER, SELFPAY ==
[2025-02-07 10:35] VITALS: BP 110/40; PULSE 84; O2SAT 100
--- NOTE | 2025-02-07 10:35 | HO.NEPHOV ---
Vital Signs 02/07/25 10:35 Height 5 ft 6 in Weight 186 lb BMI 30.0 BP 110/40 L Blood Pressure Location Lt brachial Position Sitting Pulse 84 Pulse Source Pulse Oximeter Pulse Oximetry (%) 100 Oxygen Delivery Method Room Air Intake Visit Reasons: 3 MO FU [employer] Required: No [employer] Services: [employer] Offered & Declined (FARM TECHNICIAN will help translate) Accompanied by: FARM TECHNICIAN Allergies prednisone Allergy (Unknown, Verified 02/07/25 10:38) Unknown amoxicillin (From Augmentin) Adverse Reaction (Intermediate, Verified 02/07/25 10:38) Nausea and Vomiting clavulanic acid (From Augmentin) Adverse Reaction (Intermediate, Verified 02/07/25 10:38) Nausea and Vomiting Medication List - Last Reconciled 02/07/25 by Channing Trevino MD acetaminophen (Tylenol Extra Strength) 500 mg PO Q6H PRN aspirin 81 mg PO BEDTIME betamethasone, augmented 0.05 % 1 appl topical BID PRN blood sugar diagnostic (FreeStyle Lite Strips) As directed four times a day 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 meter (Calsysyle Alburtis Lite kit) As directed 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 sensor (globa.ly G6 Sensor device) As directed- change sensor every 10 days 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 transmitter (PlanHQcom G6 Transmitter device) As directed 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,head of mobile,cont (Dexcom G6 Deputy Sheriff) As directed Brilinta (ticagrelor) 90 mg PO BID NS brimonidine 0.15% 1 drp ophthalmic (eye) BID [diabetic shoe lift As directed] [diabetic shoes As directed] docusate sodium 200 mg PO DAILY PRN dorzolamide-timolol 22.3-6.8 mg/mL 1 drp ophthalmic (eye) BID dulaglutide 3 mg subcut WE@0900 furosemide 20 mg PO DAILY gabapentin 300 mg PO BEDTIME [hospital bed As directed] [HOSPITAL BED As directed] insulin lispro (Humalog KwikPen (U-100) Insulin) 10 units (0.1 mL) subcut TIDAC isosorbide mononitrate ER 30 mg PO DAILY lancets (FreeStyle Lancets) As directed check BS QD latanoprost 0.005% 1 drp ophthalmic (eye) BEDTIME lidocaine 5% 1 appl topical BID PRN metoprolol succinate ER 25 mg PO DAILY oxycodone 5 mg PO BID PRN pantoprazole 40 mg PO DAILY pen needle, diabetic (BD Martina 2nd Gen Pen Needle) 5 times a day risankizumab-rzaa (Skyrizi) 150 mg subcut [id number] rosuvastatin 40 mg PO DAILY timolol maleate 0.5% 1 drp ophthalmic (eye) BID HPI Comments Details: 78-year-old male with a history of insulin-dependent diabetes mellitus with neuropathy, congestive heart failure with preserved ejection fraction, gastroesophageal reflux disease, coronary artery disease, essential hypertension who presented to the emergency department for evaluation after a fall. Sustained hip fracture. Baseline creatinine is around 1.3-1.4 mg/dL. He underwent hip surgery on 12/10/2022. Creatinine has bumped up to 1.7 mg/dL and he was seen in consultation during hospitalization for DEAN He is here for follow up today Accompanied by family Seen by cardiology recently 09/20/24 The patient is an 79-year-old male presenting with heart failure and chronic kidney disease. The patient has a history of heart failure, for which he underwent heart surgery. He was prescribed a water pill to manage fluid retention, but the initial dose was too strong, leading to dehydration and subsequent hospitalization. He was on Lasix 40 mg QD The patient also reports bruising, which has been attributed to anticoagulation therapy with aspirin . The bruising was noted upon discharge from the hospital and is expected to improve over time. Regarding kidney function, the patient's kidney numbers have improved from 25% to 54% following hospitalization and cessation of the water pill. Urinalysis shows no blood and minimal proteinuria, indicating stable renal function. 11/08/24 The patient is an 79-year-old male presenting for follow-up regarding chronic disease management in the setting of congestive heart failure. The patient reports no difficulty with urination and confirms adherence to prescribed medications, including furosemide. He denies any new medications and reports stable breathing. The patient admits to smoking two to three cigarettes per day and was advised to reduce smoking. The patient's kidney function fluctuates - though slightly lower than previous levels, and his blood pressure is well-controlled. His weight has decreased from 187 to 183 pounds. 02/07/25 Feels well. No new issues.Accompanied by family [facility] Medical History CHF (congestive heart failure) Aortic stenosis PAD (peripheral artery disease) Heel ulcer Tobacco abuse Impacted cerumen of both ears Epidermoid cyst of skin of cheek Mass of face Allergic rhinitis Trigger finger, right middle finger Fracture of distal end of left radius with routine healing Superficial abrasion Pneumonia due to COVID-19 virus Acute hypoxemic respiratory failure due to COVID-19 Distal radius fracture, right Renal insufficiency Trigger finger, right middle finger Respiratory tract infection Preoperative clearance Iliac artery stenosis, 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 History of renal calculi Compression fracture of L1 lumbar vertebra Infective endocarditis Glaucoma Left carotid stenosis GERD (gastroesophageal reflux disease) Pulmonary nodule Cardiomyopathy Congestive heart failure Overweight (BMI 25.0-29.9) Carotid artery stenosis PVD (peripheral vascular disease) Dyslipidemia Hypertension CAD (coronary artery disease) Diabetic retinopathy associated with type 2 diabetes mellitus Diabetic polyneuropathy associated with type 2 diabetes mellitus CKD stage 3 due to type 2 diabetes mellitus Diabetic 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 diabetes mellitus group home (current) use of insulin Surgical History History of repair of right hip joint Hx of shoulder surgery Hx of coronary artery bypass graft Hx of cataract removal with insertion of prosthetic lens Hx of tonsillectomy Hx of appendectomy Hx of arthroscopy of right knee Family History Father Stomach cancer Mother Diabetes Brother Prostate abscess Social History Household Members: Spouse Housing: Apartment Do you presently have visiting nurse or other home services: No Alcohol intake: never Patient Tobacco Use Status: Former Tobacco user Tobacco use type: Cigarette Cigarette Packs Per Day: 0.25 Cigarettes Per Day: 3 Years Smoked: 65 e-Cigarette/Vaping Use: Never Used Second Hand Smoke Exposure: Yes Advance Directives Date on File: 06/08/21 service: No Current occupational status: 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 Cognitive needs: No Hearing needs: No Vision needs: No Physical Exam Vital Signs: BMI result Body Mass Index 30.0 Const General: comfortable; No acute distress Orientation/consciousness: patient oriented x3 Eyes General: appearance normal, both eyes and all related structures Visual El: normal visual el by confrontation Neck Neck: Yes supple and Yes no JVD Resp Effort & Inspection: normal respiratory effort and respiratory effort not decreased Cardio Palpation: no palpable S3 and no palpable S4 Heart sounds: no rubs GI Inspection: Yes normal to inspection Palpation (GI): Soft to palpation Percussion: Yes normal to percussion Auscultation: normal bowel sounds General: Yes no CVA tenderness Back/Spine/Pelvis Back: no CVA tenderness Skin General skin exam: no petechiae and no purpura Neuro General: patient oriented x3 and no focal motor deficits Extrem General: No clubbing and No edema Results Reviewed Nephrology Results: Sodium, (135-145) 137 mmol/L 11/05/24 Potassium, (3.3-5.1) 5.0 mmol/L 11/05/24 Chloride, (96-108) 104 mmol/L 11/05/24 Carbon Dioxide, (22-29) 22 mmol/L 11/05/24 BUN, (9-16) 56 mg/dL H 11/05/24 Creatinine, (0.5-1.4) 2.18 mg/dL H 11/05/24 Calcium, (8.4-10.2) 9.3 mg/dL 11/05/24 Renal US 12/12/22 Assessment & Plan Assessment & Plan (1) CKD stage 3 due to type 2 diabetes mellitus: Code(s): E11.22 - Type 2 diabetes mellitus with diabetic chronic kidney disease; N18.30 - Chronic kidney disease, stage 3 unspecified Category: Medical (2) CHF (congestive heart failure): Comment: Diastolic Code(s): I50.9 - Heart failure, unspecified Category: Medical Qualifiers: Heart failure chronicity: acute on chronic Heart failure type: unspecified Qualified Code(s): I50.9 - Heart failure, unspecified Plan 79-year-old man with chronic kidney disease in the setting of longstanding diabetes mellitus congestive heart failure. He is sustained acute kidney injury most likely due to hypoperfusion. Renal function has improved - close to baseline DEAN due to hypoperfuison h/o CHF Keep Lasix at 20 mg QD Stay on low salt diet Continue to avoid nephrotoxic agents. Watch for anemia Maintain BP < 130/80 and A1C < 7% Orders: Orders Basic Metabolic Panel Today E11.22 - Type 2 diabetes mellitus with diabetic chronic kidney disease, N18.30 - Chronic kidney disease, stage 3 unspecified Complete Blood Count no Diff Today E11.22 - Type 2 diabetes mellitus with diabetic chronic kidney disease, N18.30 - Chronic kidney disease, stage 3 unspecified Medications: New betamethasone, augmented 0.05 % 1 appl topical BID PRN 50 grams 0RF Rash Coding Level of Care Code Est Pt Level 4 (41738) Diagnoses CKD stage 3 due to type 2 diabetes mellitus E11.22; N18.30 CHF (congestive heart failure) I50.9 Heart failure chronicity: acute on chronic Heart failure type: unspecified
--- OUTSIDE RECORDS SUMMARY | 2025-02-07 21:45 | XMS_ITS | Clinical Summary ---
Author Organization [facility] Address [address] [place] [address] Care Team Providers Care Survey Technologist Name Role Phone Unavailable Primary Care Provider [...]
== END 2025-02-07 10:48 | disposition home or self-care (01) ==
LOC: HO.HKA 10:33
PROVIDERS: PCP Internal Medicine; Visit Provider Internal Medicine Hypertension Specialist
DX: E11.22 Type 2 diabetes mellitus with diabetic chronic kidney disease (principal); N18.30 Chronic kidney disease, stage 3 unspecified; I50.9 Heart failure, unspecified
CPT/HCPCS: 99214

== ENCOUNTER → 2025-02-07 10:33 | Outpatient (BNVA) | payer OTHER, SELFPAY | PROVIDERS: PCP Internal Medicine; Visit Provider Internal Medicine Hypertension Specialist | DX: E11.42 Type 2 diabetes mellitus with diabetic polyneuropathy (principal); E11.65 Type 2 diabetes mellitus with hyperglycemia; E11.22 Type 2 diabetes mellitus with diabetic chronic kidney disease; E11.21 Type 2 diabetes mellitus with diabetic nephropathy; E11.319 Type 2 diabetes mellitus with unspecified diabetic retinopathy without macular edema; I13.0 Hypertensive heart and chronic kidney disease with heart failure and stage 1 through stage 4 chronic kidney disease, or unspecified chronic kidney disease; I50.32 Chronic diastolic (congestive) heart failure; N18.30 Chronic kidney disease, stage 3 unspecified; Z79.4 Long term (current) use of insulin | CPT/HCPCS: 36415; 80048; 85027; 99212 ==

== ENCOUNTER 2025-02-07 10:57 | Outpatient (REF) | payer OTHER, SELFPAY ==
[2025-02-07 13:45] LABS: Hematocrit 29.5 % (42.0-52.0); Hemoglobin 9.3 g/dl (14.0-18.0); Mean Corpuscular HGB Conc 31.5 g/dl (31.0-36.0); Mean Corpuscular Hemoglobin 29.7 pg (27.0-33.0); Mean Corpuscular Volume 94.2 fL (80.0-98.0); NRBC Abs Auto 0.000 X10*3/uL (0.0-0.012); NRBC Pct Auto 0.0 /100WBC (0.0-0.2); Platelet Count 267 X10*3/uL (160-400); Red Blood Count 3.13 X10*6/uL (4.60-5.80); White Blood Count 13.0 X10*3/uL (4.8-10.8)
[2025-02-07 14:10] LABS: Anion Gap 14 (12-20); Blood Urea Nitrogen 31 mg/dL (9-16); Calcium 9.5 mg/dL (8.4-10.2); Carbon Dioxide 25 mmol/L (22-29); Chloride 106 mmol/L (96-108); Estimated Glomerular Filt Rate 37; Potassium 4.3 mmol/L (3.3-5.1); Sodium 141 mmol/L (135-145)
== END 2025-02-07 10:58 | disposition home or self-care (01) ==
LOC: HO.10HDL 10:57
PROVIDERS: Visit Provider Internal Medicine Hypertension Specialist
DX: Z13.89 Encounter for screening for other disorder (principal)
CPT/HCPCS: 36415; 80048; 85027

== ENCOUNTER 2025-02-23 09:54 | Outpatient (AMB) | payer OTHER, SELFPAY ==
[2025-02-23 10:17] VITALS: BP 134/68; PULSE 82; O2SAT 97
--- NOTE | 2025-02-23 10:17 | MHC.PC.OV ---
Vital Signs 02/23/25 10:17 Height 5 ft 6 in Weight 186 lb BMI 30.0 BP 134/68 Blood Pressure Location Lt brachial Position Sitting Pulse 82 Pulse Source Pulse Oximeter Pulse Oximetry (%) 97 Oxygen Delivery Method Room Air Intake Visit Reasons: 3 mo follow up - see comments Allergies prednisone Allergy (Unknown, Verified 02/23/25 10:17) Unknown amoxicillin (From Augmentin) Adverse Reaction (Intermediate, Verified 02/23/25 10:17) Nausea and Vomiting clavulanic acid (From Augmentin) Adverse Reaction (Intermediate, Verified 02/23/25 10:17) Nausea and Vomiting Tobacco use date assessed: 09/21/24 Fall risk assessment: No Falls in past year Last assessed Fall Risk: 02/23/25 Dental Screening Dental Screen Date: 03/29/24 HPI HPI Comments History of Present Illness Details History of Present Illness The patient is an 79-year-old obese individual presenting for a follow-up visit for multiple chronic medical problems, including diabetes mellitus, congestive heart failure, coronary artery disease, peripheral vascular disease, chronic kidney disease, GERD, hypercholesterolemia, lumbar spondylosis with an L1 compression fracture, carotid artery stenosis, and depression. The patient is a current smoker. Regarding the patient's cardiac history, a cardiac catheterization in June 2024 revealed severe disease, for which a stent was placed. An echocardiogram from August 2024 showed a normal left ventricular function with an ejection fraction of 57%, severe septal asymmetric hypertrophy, mild to moderate aortic valve sclerosis, and moderate mitral annular calcification. The patient was seen by nephrology in January 2017 and diagnosed with stage 3 chronic kidney disease. The last blood work from January 2015 showed anemia with a hemoglobin of 9.3 and hematocrit of 29.5, and a creatinine of 1.76. At that time, electrolytes were normal, and the hemoglobin A1c was 8.1%. For health maintenance, the patient's last colon test was in 2007 and the last cholesterol test was in July 2023. The patient reports a cough for the past 3 weeks. Health Maintenance - Colon cancer screening: Last colon test was in 2007. - Cholesterol screening: The last test was in July 2023; a new test is needed. - Smoking cessation: The patient was strongly advised to stop smoking. - Dietary counseling: The patient was advised to eat more vegetables, avoid carbohydrates such as rice and pasta, and eliminate sweets like cookies, donuts, and bagels. - Protein intake: Advised to eat chicken and fish but to avoid red meat and fried preparations. - Exercise counseling: The patient was counseled on the importance of diet and exercise. - Hearing screening: A referral for a hearing test was placed, and the patient was advised to schedule it. Social History - Substance Use: The patient is a current smoker, smoking a few cigarettes a day, and was strongly advised to quit. - Diet: The patient's diet was discussed in detail. The patient dislikes vegetables but was counseled on the necessity of eating them. - Nutrition: Advised to eat more vegetables, chicken, and fish, and to avoid rice, pasta, cookies, donuts, bagels, bread, red meat, and fried foods. - Exercise: The patient was counseled on the importance of diet and exercise. Results - Labs (January 2015): Hemoglobin 9.3, hematocrit 29.5, creatinine 1.76, hemoglobin A1c 8.1%. Electrolytes were good. - Labs (July 2023): Cholesterol test performed. - Echocardiogram (August 2024): Showed normal LV function, EF 57%, severe septal asymmetric hypertrophy, mild to moderate aortic valve sclerosis, and moderate mitral annular calcification. - Cardiac Catheterization (June 2024): Revealed severe disease, status post stent placement. [facility] Medical History CHF (congestive heart failure) Aortic stenosis PAD (peripheral artery disease) Heel ulcer Tobacco abuse Impacted cerumen of both ears Epidermoid cyst of skin of cheek Mass of face Allergic rhinitis Trigger finger, right middle finger Fracture of distal end of left radius with routine healing Superficial abrasion Pneumonia due to COVID-19 virus Acute hypoxemic respiratory failure due to COVID-19 Distal radius fracture, right Renal insufficiency Trigger finger, right middle finger Respiratory tract infection Preoperative clearance Iliac artery stenosis, 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 History of renal calculi Compression fracture of L1 lumbar vertebra Infective endocarditis Glaucoma Left carotid stenosis GERD (gastroesophageal reflux disease) Pulmonary nodule Cardiomyopathy Congestive heart failure Overweight (BMI 25.0-29.9) Carotid artery stenosis PVD (peripheral vascular disease) Dyslipidemia Hypertension CAD (coronary artery disease) Diabetic retinopathy associated with type 2 diabetes mellitus Diabetic polyneuropathy associated with type 2 diabetes mellitus CKD stage 3 due to type 2 diabetes mellitus Diabetic 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 diabetes mellitus correction (current) use of insulin Surgical History History of repair of right hip joint Hx of shoulder surgery Hx of coronary artery bypass graft Hx of cataract removal with insertion of prosthetic lens Hx of tonsillectomy Hx of appendectomy Hx of arthroscopy of right knee Family History Father Stomach cancer Mother Diabetes Brother Prostate abscess Social History Household Members: Spouse Housing: Apartment Do you presently have visiting nurse or other home services: No Alcohol intake: never Patient Tobacco Use Status: Former Tobacco user Tobacco use type: Cigarette Cigarette Packs Per Day: 0.25 Cigarettes Per Day: 3 Years Smoked: 65 e-Cigarette/Vaping Use: Never Used Second Hand Smoke Exposure: Yes Advance Directives Date on File: 06/08/21 service: No Current occupational status: 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 1. Little interest or pleasure in doing things: not at all 2. Feeling down, depressed, or hopeless: not at all 3. Trouble falling or staying asleep, or sleeping too much: not at all 4. Feeling tired or having little energy: not at all 5. Poor appetite or overeating: not at all 6. Feeling bad about yourself - or that you are a failure or have let yourself or your family down: not at all 7. Trouble concentrating on things, such as reading the newspaper or watching television: not at all 8. Moving or speaking so slowly that other people could have noticed. Or the opposite - being so fidgety or restless that you have been moving around a lot more than usual: not at all 9. Thoughts that you would be better off or of hurting yourself in some way: not at all Total score: 0 Source: Developed by Drs. Mendez Warren, Chelsea David, Kane Oakes and colleagues, with an educational charisse from [employer]. Thrive Questionnaire Date Thrive assessed: 09/15/24 I am a: Patient What is your living situation today?: I have a steady place to live Within the past 12 months, did the food you bought not last and you didn't have the money to get more?: Never true Within the past 12 months, did you worry whether your food would run out before you got money to buy more?: Never true Do you have trouble paying for medicines?: I choose not to answer this question Do you have trouble getting transportation to medical appointments?: No Do you have trouble paying your heating and electricity bill?: No Do you have trouble taking care of your child, family member or friend?: No Do you have trouble with day-to-day activities such as bathing, preparing meals, shopping, managing finances, etc.?: No Are you currently unemployed and looking for a job?: No Are you interested in more education?: No Please select the resources that you would like help with: None Currently or been in a relationship where the following occur: No concerns reported THRIVE Score: 0 AUDIT C Alcohol Use Questionnaire (AUDIT-C) 1. How often do you have a drink containing alcohol?: Never 3. How often do you have six or more drinks on one occasion?: Never Total Score: 0 THIERNO-7 AMB Questionnaire THIERNO-7 Date THIERNO - 7 assessed: 11/08/24 Feeling nervous, anxious, or on edge: 0 = Not at all Not being able to stop or control worryin = Not at all Worrying too much about different things: 0 = Not at all Trouble relaxin = Not at all Being so restless that it is hard to sit still: 0 = Not at all Becoming easily annoyed or irritable: 0 = Not at all Feeling afraid as if something awful might happen: 0 = Not at all Total THIERNO-7 score (0-4 normal; 5-9 mild; 10-14 moderate; 15-21 severe): 0 Source: Developed by Drs. Mendez Warren, Chelsea David, Knae Oakes and colleagues, with an educational charisse from [employer]. Review of Systems Narrative Review of Systems - Constitutional: Reports feeling tired all the time. Denies fever. - Respiratory: Reports a cough for the last three weeks. Denies sore throat. - Endocrine: Reports occasional hypoglycemia. Today's blood sugar was around 140. - HEENT: Reports hearing difficulty. Physical exam (Primary Care) Vital Signs: Last Vital Signs Pulse 82 02/23/25 10:17 BP 134/68 02/23/25 10:17 Pulse Ox 97 02/23/25 10:17 Oxygen Delivery Method Room Air 02/23/25 10:17 BMI result Body Mass Index 30.0 Tobacco/Smoking Status: Tobacco use Status Tobacco use date assessed 09/21/24 02/23/25 10:18 Patient Tobacco Use Status Former Tobacco user 02/23/25 10:18 Tobacco use type Cigarette 02/23/25 10:18 e-Cigarette/Vaping Use Never Used 02/23/25 10:18 PHQ-9: PHQ-9 Score PHQ-9: Total score 0 02/23/25 10:53 Thrive Assessment: Date of Thrive Assessment Date Thrive assessed 09/15/24 02/23/25 10:18 Currently or been in a relationship where the following occur: No concerns reported Narrative Physical Exam Const General: alert; No acute distress Eyes Conjunctivae: conjunctivae normal Resp Auscultation: clear to auscultation bilaterally Cardio Rate: regular rate Rhythm: regular rhythm GI Inspection: Yes normal to inspection Extrem General: Yes normal to inspection and No edema Results AMB Hemoglobin A1c AMB Hemoglobin A1c 8.1 % Last Edit by Sarah Johnson CMA on 02/23/25 10:50 Results Reviewed Results Reviewed: Laboratory Last Values Hgb A1c (Clinic) 8.1 % (4.0-6.0) H 02/23/25 10:18 Coding Level of Care Code Est Pt Level 4 (84327) Complex visit Add On G2211 Diagnoses CHF (congestive heart failure) I50.9 Heart failure chronicity: acute on chronic Heart failure type: unspecified Coronary artery disease involving [place] coronary artery of [place] heart without angina pectoris I25.10 Associated angina: without angina Coronary Disease-Associated Artery/Lesion type: [place] artery [place] vs. transplanted heart: [place] heart Dyslipidemia E78.5 Situational depression F43.21 Type 2 diabetes mellitus with hyperglycemia, with long-term current use of insulin E11.65; Z79.4 Diabetes mellitus terminal computer operator insulin use: with terminal computer operator use Obesity (BMI 30.0-34.9) E66.811 Gastroesophageal reflux disease without esophagitis K21.9 Esophagitis presence: without esophagitis CKD stage 3 due to type 2 diabetes mellitus E11.22; N18.30 Tobacco abuse Z72.0 Assessment & Plan Assessment & Plan (1) CHF (congestive heart failure): Comment: Diastolic Code(s): I50.9 - Heart failure, unspecified Category: Medical Qualifiers: Heart failure chronicity: acute on chronic Heart failure type: unspecified Qualified Code(s): I50.9 - Heart failure, unspecified Plan: Continuing diuretic, weigh daily (2) CAD (coronary artery disease): Code(s): I25.10 - Atherosclerotic heart disease of [place] coronary artery without angina pectoris Category: Medical Qualifiers: Associated angina: without angina Coronary Disease-Associated Artery/Lesion type: [place] artery [place] vs. transplanted heart: [place] heart Qualified Code(s): I25.10 - Atherosclerotic heart disease of [place] coronary artery without angina pectoris Plan: Control the cholesterol, weight, blood pressure, diabetes on aspirin. Brilinta has been started in June and will continue until June 2025. (3) Dyslipidemia: Code(s): E78.5 - Hyperlipidemia, unspecified Category: Medical Plan: Avoid fried foods, chicken skin, eggs, butter margarine, pastries and meat. Be it pork or beef they have a lot of cholesterol patient needs new blood work patient is on rosuvastatin 40 mg once a day (4) Situational depression: Code(s): F43.21 - Adjustment disorder with depressed mood Category: Medical Plan: Continue with present medication (5) Type 2 diabetes mellitus with hyperglycemia: Code(s): E11.65 - Type 2 diabetes mellitus with hyperglycemia Category: Medical Qualifiers: Diabetes mellitus nursing home insulin use: with terminal computer operator use Qualified Code(s): E11.65 - Type 2 diabetes mellitus with hyperglycemia; Z79.4 - emt intermediate (current) use of insulin Plan: Decrease the amount of carbohydrate intake, pasta, bread, rice and potatoes are all sugar and that is aside from all the sweet stuff, remember that fruits are good but they are Sweet also. Hemoglobin A1c goal of less than 7.0 presently on Humalog sliding scale Trulicity 3 mg once a week only (6) Obesity (BMI 30.0-34.9): Code(s): E66.811 - Obesity, class 1 Category: Medical Plan: Diet and exercise (7) GERD (gastroesophageal reflux disease): Code(s): K21.9 - Gastro-esophageal reflux disease without esophagitis Category: Medical Qualifiers: Esophagitis presence: without esophagitis Qualified Code(s): K21.9 - Gastro-esophageal reflux disease without esophagitis Plan: Avoid the foods that causes that usually spicy foods, tomato products, juices, coffee, soda and foods that your sensitive to. After eating do not lie down, allow 3-4 hours before in lie down. And keep the head of bed above 30 degrees to avoid the acid from going up. (8) CKD stage 3 due to type 2 diabetes mellitus: Code(s): E11.22 - Type 2 diabetes mellitus with diabetic chronic kidney disease; N18.30 - Chronic kidney disease, stage 3 unspecified Category: Medical Plan: Avoid NSAIDs keep well hydrated (9) Tobacco abuse: Comment: stopped 09/2021, continuing February 2023 Code(s): Z72.0 - Tobacco use Category: Medical Plan: Patient is strongly advised to stop smoking Plan Plan Patient was informed and verbally consented to the use of an ambient scribe for clinic note documentation during this visit. 1. Coronary Artery Disease The plan includes continuing aspirin. Brilinta was started in June and will be continued until June 2025. 2. Hypercholesterolemia The patient requires new fasting blood work, including a cholesterol panel. The patient will continue the current medication, rosuvastatin 40 mg once a day. 3. Diabetes Mellitus The goal is a hemoglobin A1c of less than 7.0%. The patient will continue on a Humalog sliding scale and Trulicity 3 mg once a week. Extensive counseling was provided on diet and exercise, emphasizing the need to reduce the A1c from 8.1%. The patient was instructed to bring the glucose monitoring device to the next appointment for review, with assistance from a nurse navigator available if needed. 4. Congestive Heart Failure The plan is to continue the diuretic, Lasix 20 mg once a day, and to monitor weight daily. 5. Gastroesophageal Reflux Disease The patient is advised to avoid NSAIDs and stay well-hydrated. 6. Tobacco Use Disorder The patient was strongly advised to stop smoking. 7. Chronic Cough For the cough of 3 weeks duration, uzyt-[id number] Delsym was recommended. A chest X-ray was ordered, to be performed if the cough persists for longer than a month. 8. Hearing Loss A referral for a hearing test was already placed, and the patient was provided with the number to call and schedule the appointment. Discussion Notes I discussed the management of the patient's multiple chronic conditions. I specifically emphasized the importance of improving glycemic control, as the patient's hemoglobin A1c is high at 8.1%. I provided extensive counseling on dietary modifications, including increasing vegetable intake, avoiding carbohydrates and sweets, and choosing lean proteins like chicken and fish over red meat. I strongly advised the patient to stop smoking, highlighting the risk to the patient's cardiac health. I explained that these lifestyle changes are critical, as medications have their own side effects and self-care is a vital part of management. I ordered fasting blood work and will have the patient follow up in three months to review the results. I also ordered a chest X-ray for the chronic cough if it does not resolve. I reminded the patient that a hearing test referral is available to be scheduled. I instructed the patient to bring the glucose monitoring device to the next visit for review. Patient Instructions - You must stop smoking. This is very important for your heart. - Change your diet to help lower your blood sugar. Eat more vegetables, chicken, and fish. Avoid sugar, cookies, donuts, bread, pasta, rice, red meat, and fried foods. - Try to get some exercise. - Continue taking your current medications, including Lasix, rosuvastatin, Brilinta, aspirin, Humalog, and Trulicity. - Get fasting blood work done before your next visit. - For your cough, you can try an [id number]-[id number] medicine called Delsym. If the cough lasts for more than a month, get the chest X-ray that was ordered. - A referral was made for a hearing test. Please call the number provided to schedule an appointment. - Bring your blood sugar checking machine to your next appointment. A nurse can help you with it if you are having trouble. - Your next follow-up appointment will be in about three months. Orders: Orders XR chest 2V Today H91.90 - Unspecified hearing loss, unspecified ear AMB Hemoglobin A1c Today Z13.9 - Encounter for screening, unspecified NT Pro B Type Natriuretic Pept Today I50.9 - Heart failure, unspecified Medications: New insulin degludec (Tresiba FlexTouch U-100 insulin) 10 units (0.1 mL) subcut DAILY 15 mL 0RF
--- OUTSIDE RECORDS SUMMARY | 2025-02-23 11:11 | XMS_ITS | Clinical Summary ---
Author Organization [facility] Address [address] [place] [address] Care Team Providers Care Mate Relief Name Role Phone Unavailable Primary Care Provider [...]
--- OUTSIDE RECORDS SUMMARY | 2025-02-23 11:11 | XMS_ITS | Clinical Summary ---
Author Organization [email or web address] Address [address] [place] [address] Care Team Providers Care Anesthesia Resident Name Role Phone Marcia Clements MD Primary Care Provider [phone] Social History Tobacco Use Types Packs/Day Years [...] age to complete this topic Care Teams Anesthesia Resident Relationship Specialty Start Date End Date Marcia Clements MD [address] [place] [address] [address] [facility] [place] [address] PCP - General Internal Medicine 06/01/20
== END 2025-02-23 11:44 | disposition home or self-care (01) ==
LOC: HO.HMCH 09:55
PROVIDERS: PCP Internal Medicine; Visit Provider Internal Medicine
DX: I50.9 Heart failure, unspecified (principal); E11.65 Type 2 diabetes mellitus with hyperglycemia; N18.30 Chronic kidney disease, stage 3 unspecified; Z79.4 Long term (current) use of insulin; E11.22 Type 2 diabetes mellitus with diabetic chronic kidney disease; I25.10 Atherosclerotic heart disease of native coronary artery without angina pectoris; E78.5 Hyperlipidemia, unspecified; F43.21 Adjustment disorder with depressed mood; K21.9 Gastro-esophageal reflux disease without esophagitis; E66.811 Obesity, class 1; Z72.0 Tobacco use

== ENCOUNTER → 2025-02-23 09:54 | Outpatient (BNVA) | payer OTHER, SELFPAY | PROVIDERS: PCP Internal Medicine; Visit Provider Internal Medicine | DX: I50.9 Heart failure, unspecified (principal); I25.10 Atherosclerotic heart disease of native coronary artery without angina pectoris; E78.5 Hyperlipidemia, unspecified; F43.21 Adjustment disorder with depressed mood; E11.65 Type 2 diabetes mellitus with hyperglycemia; E66.811 Obesity, class 1; K21.9 Gastro-esophageal reflux disease without esophagitis; E11.22 Type 2 diabetes mellitus with diabetic chronic kidney disease; N18.30 Chronic kidney disease, stage 3 unspecified; Z87.891 Personal history of nicotine dependence; Z79.4 Long term (current) use of insulin | CPT/HCPCS: 83036; 99212 ==

== ENCOUNTER 2025-02-28 10:06 | Outpatient (REF) | payer OTHER, SELFPAY ==
--- NOTE | ~2025-02-28 | XR_ITS ---
EXAMINATION: XR CHEST 2 VIEWS HISTORY: H91.90 - Unspecified hearing loss, unspecified ear COMPARISON: Comparison is made with the prior examination dated 09/14/2024. FINDINGS: PA and lateral views of the chest are submitted. The lungs remain hyperinflated. There are increased interstitial markings without significant change. No new focal airspace opacity is identified. There is no pleural effusion, pneumothorax, or pulmonary vascular congestion. The heart is normal in size. The patient is status post median sternotomy and CABG. There is degenerative disc disease of the spine. XR/XR chest 2V IMPRESSION: COPD. No acute cardiopulmonary abnormality. Electronically signed by: Mendez Foote MD 02/28/2025 11:19 AM [facility]
[2025-02-28 10:39] LABS: MANUAL DIFF FLAG NO
[2025-02-28 11:21] LABS: Hematocrit 26.4 % (42.0-52.0); Hemoglobin 8.3 g/dl (14.0-18.0); Imm Gran Abs Auto 0.05 X10*3/uL (0.00-0.03); Imm Gran Pct Auto 0.4 % (0.0-0.4); Lymphocytes Absolute Auto 3.0 X10*3/uL (1.2-4.9); Mean Corpuscular HGB Conc 31.4 g/dl (31.0-36.0); Mean Corpuscular Hemoglobin 28.7 pg (27.0-33.0); Mean Corpuscular Volume 91.3 fL (80.0-98.0); NRBC Abs Auto 0.000 X10*3/uL (0.0-0.012); NRBC Pct Auto 0.0 /100WBC (0.0-0.2); Platelet Count 241 X10*3/uL (160-400); Red Blood Count 2.89 X10*6/uL (4.60-5.80); Reticulocytes Absolute 0.054 X10*6/uL (0.026-0.095); White Blood Count 11.5 X10*3/uL (4.8-10.8)
[2025-02-28 11:58] LABS: Cholesterol 103 mg/dL (<200); Triglycerides 221 mg/dL (<150)
[2025-02-28 11:59] LABS: HDL Cholesterol 32 mg/dL (>40)
[2025-02-28 12:19] LABS: Alanine Aminotransferase 38 U/L (0-40); Albumin Level 4.4 g/dL (3.5-5.0); Alkaline Phosphatase 101 U/L (39-117); Anion Gap 15 (12-20); Aspartate Amino Transferase 27 U/L (5-37); Blood Urea Nitrogen 48 mg/dL (9-16); Calcium 9.3 mg/dL (8.4-10.2); Carbon Dioxide 25 mmol/L (22-29); Chloride 106 mmol/L (96-108); Cholesterol 103 mg/dL (<200); Estimated Glomerular Filt Rate 36; HDL Cholesterol 31 mg/dL (>40); Iron 39 mcg/dL (45-160); NT Pro B Type Natriuretic Pept 496.8 pg/mL (<300); Percent Iron Saturation 11 % (15-50); Potassium 4.5 mmol/L (3.3-5.1); Sodium 141 mmol/L (135-145); Total Iron Binding Capacity 354 mcg/dL (228-428); Total Protein 7.7 g/dL (6.5-8.0); Triglycerides 217 mg/dL (<150); Unsaturated Iron Binding 315 ug/dL
[2025-02-28 12:20] LABS: Thyroid Stimulating Hormone 1.93 uIU/mL (0.32-4.0)
[2025-02-28 12:34] LABS: Cholesterol 102 mg/dL (<200); Ferritin 36 ng/mL (20-250); Free T4 (Free Thyroxine) 1.11 ng/dL (0.71-1.85); HDL Cholesterol 32 mg/dL (>40); Triglycerides 217 mg/dL (<150)
[2025-02-28 12:45] LABS: Microalbum/Creatinine Ratio Ur 349.4 ug/mg cr (<30)
[2025-02-28 13:56] LABS: Folate 13.1 ng/mL (> or = 4.0); Vitamin B12 752 pg/mL (200-900)
== END 2025-02-28 10:07 | disposition home or self-care (01) ==
LOC: HO.LAB 10:06
PROVIDERS: Internal Medicine Cardiovascular Disease; Absent Provider Internal Medicine Hypertension Specialist; PCP Internal Medicine; Referring Provider Internal Medicine
DX: E11.22 Type 2 diabetes mellitus with diabetic chronic kidney disease (principal); N18.30 Chronic kidney disease, stage 3 unspecified; E11.65 Type 2 diabetes mellitus with hyperglycemia; I25.10 Atherosclerotic heart disease of native coronary artery without angina pectoris; E78.00 Pure hypercholesterolemia, unspecified; H91.90 Unspecified hearing loss, unspecified ear; I50.9 Heart failure, unspecified; Z95.5 Presence of coronary angioplasty implant and graft
CPT/HCPCS: 36415; 71046; 80053; 80061; 82043; 82570; 82607; 82728; 82746; 83036; 83540; 83880; 84439; 84443; 85025; 85045

== ENCOUNTER → 2025-02-28 10:46 | Outpatient (BNV) | payer OTHER, SELFPAY | PROVIDERS: Absent Provider Internal Medicine Hypertension Specialist; PCP Internal Medicine; Referring Provider Internal Medicine; Visit Provider Radiology Diagnostic Radiology | DX: J44.9 Chronic obstructive pulmonary disease, unspecified (principal) | CPT/HCPCS: 71046 ==

== ENCOUNTER 2025-03-03 09:07 | Emergency (ER) | payer OTHER, SELFPAY ==
[2025-03-03 09:14] VITALS: BP 114/55; PULSE 78; RESP 16; TEMP 36.1; O2SAT 97
--- NOTE | 2025-03-03 09:33 | PC.NURSE ---
Patient presented to ED from outpatient labs for low hemoglobin. Patient denies noticing any blood in stool/ denies any emesis. Patient states he has had blood transfusions in the past for low blood levels. Tender on right abdomen. Patient on monitor. Patient noted to be pale. IV established in right FA, labs sent. VSS.
[2025-03-03 09:44] LABS: MANUAL DIFF FLAG NO
--- NOTE | 2025-03-03 09:46 | ED_ITS ---
HPI - Recheck/Abnormal Lab/Rx General Chief Complaint: Recheck/Abnormal Lab/Rx Stated Complaint: Abnormal Labs Time Seen by Provider: 03/03/25 09:29 Source: patient and family (Daughter) Mode of arrival: wheelchair Limitations: no limitations and language barrier (Daughter interpreted at bedside) History of Present Illness ED Provider: HPI narrative: 79-year-old male with a history of chronic kidney disease, CAD, aortic stenosis, was called by his PCP for abnormal H&H and was told to come to the ER, patient denies chest pain, shortness of breath, denies abdominal pain, he states he was supposed to see his PCP untill he received a phone call to go to the ER Denies hematemesis, hematochezia, melena, or abdominal pain Related Data Home Medications ?Medication ?Instructions ?Recorded ?Confirmed dorzolamide 22.3 mg-timolol 6.8 1 drp ophthalmic (eye) BID 06/07/21 02/07/25 mg/mL eye drops aspirin 81 mg tablet,delayed 81 mg PO BEDTIME 12/09/22 02/07/25 release brimonidine 0.15 % eye drops 1 drp ophthalmic (eye) BI D 12/09/22 02/07/25 docusate sodium 100 mg capsule 200 mg PO DAILY PRN Con stipation 08/05/23 02/07/25 dulaglutide 3 mg/0.5 mL 3 mg subcut WE@0900 09/15/24 02/07/25 subcutaneous pen injector isosorbide mononitrate 30 mg 30 mg PO DAILY 09/15/24 1 04/09/24 tablet,extended release 24 hr latanoprost 0.005 % eye drops 1 drp ophthalmic (eye) B EDTIME 09/15/24 02/07/25 risankizumab-rzaa 150 mg/mL 150 mg subcut [id number] 02/07/25 subcutaneous pen injector (Skyrizi) timolol maleate 0.5 % eye drops 1 drp ophthalmic (eye) BID 09/15/24 02/07/25 Previous Rx's ?Medication ?Instructions ?Recorded acetaminophen 500 mg tablet 500 mg PO Q6H PRN pain or fever 01/30/21 (Tylenol Extra Strength) #20 tabs 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 meter (FreeStyle #1 ea 08/05/22 [place] Lite kit) lancets 28 gauge (FreeStyle #100 ea 08/05/22 Lancets) hospital bed #1 ea 01/02/23 HOSPITAL BED #1 ea 01/07/23 diabetic shoe lift #1 ea 03/14/23 diabetic shoes #2 ea 03/14/23 pen needle, diabetic 32 gauge x #400 ea 05/07/23 (BD Martina 2nd Gen Pen Needle) gabapentin 300 mg capsule 300 mg PO BEDTIME #90 caps 0 08/05/24 blood sugar diagnostic (FreeStyle #150 ea 10/13/24 Lite Strips) pantoprazole 40 mg tablet,delayed 40 mg PO DAILY #90 t abs 10/29/24 release 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,strawhat inspector and packer,cont #1 ea 12/28/24 (Dexcom G6 Anesthesiology Fellow) 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 sensor (Dexcom G6 #3 ea 12/29/24 Sensor device) insulin lispro 100 unit/mL 10 unit (0.1 mL) subcut TID AC #15 12/30/24 subcutaneous pen (Humalog KwikPen mL (U-100) Insulin) lidocaine 5 % topical ointment 1 appl topical BID PRN pain #30 01/10/25 grams oxycodone 5 mg tablet 5 mg PO BID PRN pain #8 tabs 01/10/25 Brilinta 90 mg tablet (ticagrelor) 90 mg PO BID #180 t abs 02/01/25 betamethasone, augmented 0.05 % 1 appl topical BID PRN Rash #50 02/07/25 topical cream grams 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 transmitter (Dexcom #1 ea 02/10/25 G6 Transmitter device) insulin degludec 100 unit/mL (3 10 unit (0.1 mL) subcu t DAILY #15 03/02/25 mL) subcutaneous pen (Tresiba mL FlexTouch U-100 insulin) furosemide 20 mg tablet 20 mg PO DAILY #30 tabs 02/21 05/18 metoprolol succinate 25 mg 25 mg PO DAILY #90 tabs 03/17 tablet,extended release 24 hr rosuvastatin 40 mg tablet 40 mg PO DAILY #90 tabs 02/21 05/18 Allergies Allergy/AdvReac Type Severity Reaction Status Date / Time prednisone Allergy Unknown Unknown Verified 03/03/25 09:17 amoxicillin (From Augmentin) AdvReac Intermediate Nausea and Verified 03/03/25 09:17 Vomiting clavulanic acid (From AdvReac Intermediate Nausea and Verified 03/03/25 09:17 Augmentin) Vomiting Review of Systems 2 Constitutional: Constitutional: Reports as per [facility] Past Medical History Medical History CHF (congestive heart failure) Aortic stenosis PAD (peripheral artery disease) Heel ulcer Tobacco abuse Impacted cerumen of both ears Epidermoid cyst of skin of cheek Mass of face Allergic rhinitis Trigger finger, right middle finger Fracture of distal end of left radius with routine healing Superficial abrasion Pneumonia due to COVID-19 virus Acute hypoxemic respiratory failure due to COVID-19 Distal radius fracture, right Renal insufficiency Trigger finger, right middle finger Respiratory tract infection Preoperative clearance Iliac artery stenosis, 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 History of renal calculi Compression fracture of L1 lumbar vertebra Infective endocarditis Glaucoma Left carotid stenosis GERD (gastroesophageal reflux disease) Pulmonary nodule Cardiomyopathy Congestive heart failure Overweight (BMI 25.0-29.9) Carotid artery stenosis PVD (peripheral vascular disease) Dyslipidemia Hypertension CAD (coronary artery disease) Diabetic retinopathy associated with type 2 diabetes mellitus Diabetic polyneuropathy associated with type 2 diabetes mellitus CKD stage 3 due to type 2 diabetes mellitus 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 Surgical History History of repair of right hip joint Hx of shoulder surgery Hx of coronary artery bypass graft Hx of cataract removal with insertion of prosthetic lens Hx of tonsillectomy Hx of appendectomy Hx of arthroscopy of right knee Family History Family History Father Stomach cancer Mother Diabetes Brother Prostate abscess Social History Social History Household Members: Spouse Housing: Apartment Do you presently have visiting nurse or other home services: No Alcohol intake: never Patient Tobacco Use Status: Former Tobacco user Tobacco use type: Cigarette Cigarette Packs Per Day: 0.25 Cigarettes Per Day: 3 Years Smoked: 65 e-Cigarette/Vaping Use: Never Used Second Hand Smoke Exposure: Yes Advance Directives Date on File: 06/08/21 service: No Current occupational status: 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 Cognitive needs: No Hearing needs: No Vision needs: No Physical Exam 2 Exam: Exam: ?General: ??looks age appropriate Pale conjunctiva Neck: Supple, no LAD ?CV: RRR, no obvious murmurs appreciated ?Resp: ?No wheezing rales rhonchi no stridor moving air well Abd: ?Bowel sounds are present, no left lower quadrant tenderness no suprapubic tenderness bowel sounds present Rectal: No masses, no fissures, no melena, normal-appearing stool MSK: FROM, strength 5/5 all extremities Skin: Warm, dry, intact, ?Neuro: ?Alert and oriented x3, moving upper and lower extremities symmetrically, no obvious facial asymmetry noted, cranial nerves 2-12 intact Vital Signs: Vital Signs: Last Vital Signs Temp 98 F 03/03/25 14:04 Pulse 72 03/03/25 14:04 Resp 18 03/03/25 14:04 BP 119/56 L 03/03/25 14:04 Pulse Ox 100 03/03/25 12:00 O2 Del Method Room Air 03/03/25 12:00 BMI result Body Mass Index 30.0 Medical Decision Making Medical Decision Making MDM Narrative: 10:03 AM 03/03/2025 (Dr. Bennie Spicer): Updated patient's PCP provider Dr. Clements not sure whether the provider or staff send the patient to the ER, he appears to have anemia of chronic disease, renal function has been fairly stable, he has been trending down, his abdominal exam is benign there is no indication that he needs further imaging and given his CKD at probably not want to image him at this time as my suspicion for bleeding is low, such as bleeding diverticulitis, rectal exam without any external masses or fissures or hemorrhoids, non melanotic stool and I sent a tiger text to Dr. Clements Given patient's history of coronary artery disease I do not think it is unreasonable to transfuse him 1 unit of PRBC in the ER, his daughter agrees Differential Diagnosis Differential Diagnoses: The differential diagnosis associated with the presentation includes (Diverticulitis with bleeding, upper GI bleed, anemia of chronic disease, hemolytic anemia) Admission/Observation Consideration of admission/observation: Escalation of care including admission/observation considered Lab Data 03/03/25 09:39 03/03/25 09:38 Labs: Lab Results 03/03/25 03/03/25 03/03/25 Range/Units 09:38 09:39 10:08 WBC 11.9 H (4.8-10.8) X10*3/uL RBC 2.58 L (4.60-5.80) X10*6/uL Hgb 7.5 L (14.0-18.0) g/dl Hct 23.3 L (42.0-52.0) % MCV 90.3 (80.0-98.0) fL MCH 29.1 (27.0-33.0) pg MCHC 32.2 (31.0-36.0) g/dl RDW 14.1 (11.0-16.0) % Plt Count 212 (160-400) X10*3/uL MPV 10.4 (9.4-12.4) fL Immature Gran % (Auto) 0.3 (0.0-0.4) % Neut % (Auto) 66.6 (45-73) % Lymph % (Auto) 20.8 (20-40) % [place] % (Auto) 8.9 (2-11) % Eos % (Auto) 2.9 (0-4) % Baso % (Auto) 0.5 (0-2) % Lymph # (Auto) 2.5 (1.2-4.9) X10*3/uL [place] # (Auto) 1.1 (0.1-1.2) X10*3/uL Eos # (Auto) 0.3 (0.0-0.4) X10*3/uL Baso # (Auto) 0.1 (0.0-0.2) X10*3/uL Abs Immat Gran (auto) 0.03 (0.00-0.03) X10*3/uL Absolute Neuts (auto) 7.9 (2.0-8.3) x10*3/uL Absolute Nucleated RBC 0.000 (0.0-0.012) X10*3/uL Nucleated RBC % (auto) 0.0 (0.0-0.2) /100WBC Sodium 141 (135-145) mmol/L Potassium 5.1 (3.3-5.1) mmol/L Chloride 108 (96-108) mmol/L Carbon Dioxide 24 (22-29) mmol/L Anion Gap 14 (12-20) BUN 52 H (9-16) mg/dL Creatinine 1.94 H (0.5-1.4) mg/dL Estim Creat Clear Calc 30.9 Estimated GFR 33 Random Glucose 294 H (60-115) mg/dL Calcium 8.9 (8.4-10.2) mg/dL Stool Occult Blood NEGATIVE (NEGATIVE) Blood Type A Positive Antibody Screen NEGATIVE Crossmatch See Detail Critical Care Time Critical Care Time Critical Care Time: Yes Total Critical Care Time: 32 Attestation: Time is exclusive of separately billable procedures. Time includes: direct patient care, patient reassessment, coordination of patient care, interpretation of data (laboratory data, pulse oximetry, arterial blood gases and chest xrays), review of patient's medical records, medical consultation and documentation of patient care. Procedures excluded from critical care time: central intravenous line placement and electrocardiography. Discharge Plan Discharge Clinical Impression: Anemia, CKD stage 3 due to type 2 diabetes mellitus Patient Disposition: Home, Self-Care Additional Instructions: I updated your PCP, I think you need to be on Procrit for anemia of chronic disease, there was no evidence that you have blood loss on stool exam, benign abdominal exam, you received 1 unit of blood transfusion Prescriptions: No Action (DME) hospital bed See Rx Instructions .Route .MEDSUPPLY Qty: 1 0RF Rx Instructions: As directed ([facility] [place]) HOSPITAL BED See Rx Instructions .Route .MEDSUPPLY Qty: 1 0RF Rx Instructions: As directed ([facility] [place]) diabetic shoe lift 1 inch See Rx Instructions .Route .MEDSUPPLY Qty: 1 0RF Rx Instructions: As directed ([facility] [place]) diabetic shoes See Rx Instructions .Route .MEDSUPPLY Qty: 2 0RF Rx Instructions: As directed gabapentin 300 mg capsule 300 mg PO BEDTIME Qty: 90 2RF (DME) FreeStyle Lite Strips Strip See Rx Instructions .ROUTE .MEDSUPPLY Qty: 150 11RF Rx Instructions: As directed four times a day pantoprazole 40 mg tablet,delayed release (DR/EC) 40 mg PO DAILY Qty: 90 2RF (DME) Dexcom G6 Anesthesiology Fellow Misc See Rx Instructions .ROUTE .MEDSUPPLY Qty: 1 0RF Rx Instructions: As directed (DME) Dexcom G6 Sensor Device See Rx Instructions .ROUTE .MEDSUPPLY Qty: 3 3RF Rx Instructions: As directed- change sensor every 10 days insulin lispro [Humalog KwikPen Insulin] 100 unit/mL insulin pen 10 unit subcut TIDAC Qty: 15 3RF Rx Instructions: before meals as directed ticagrelor [Brilinta] 90 mg tablet 90 mg PO BID Qty: 180 0RF (DME) Dexcom G6 Transmitter Device See Rx Instructions .ROUTE .MEDSUPPLY Qty: 1 0RF Rx Instructions: As directed insulin degludec [Tresiba FlexTouch U-100] 100 unit/mL (3 mL) insulin pen 10 unit subcut DAILY Qty: 15 0RF rosuvastatin 40 mg tablet 40 mg PO DAILY Qty: 90 0RF metoprolol succinate 25 mg tablet extended release 24 hr 25 mg PO DAILY Qty: 90 0RF furosemide 20 mg tablet 20 mg PO DAILY Qty: 30 3RF acetaminophen [Tylenol Extra Strength] 500 mg tablet 500 mg PO Q6H PRN (Reason: pain or fever) Qty: 20 0RF dorzolamide-timolol 22.3-6.8 mg/mL drops 1 drp ophthalmic (eye) BID brimonidine 0.15 % drops 1 drp ophthalmic (eye) BID aspirin 81 mg tablet,delayed release (DR/EC) 81 mg PO BEDTIME latanoprost 0.005 % drops 1 drp ophthalmic (eye) BEDTIME timolol maleate 0.5 % drops 1 drp ophthalmic (eye) BID Skyrizi 150 mg/mL pen injector 150 mg SUBCUT [id number] isosorbide mononitrate 30 mg tablet extended release 24 hr 30 mg PO DAILY dulaglutide 3 mg/0.5 mL pen injector 3 mg subcut WE@0900 lidocaine 5 % ointment 1 appl topical BID PRN (Reason: pain) Qty: 30 0RF oxycodone 5 mg tablet 5 mg PO BID PRN (Reason: pain) Qty: 8 0RF Rx Instructions: Partial Fill upon patient request. (DME) 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 meter [FreeStyle [place] Lite] Kit See Rx Instructions .ROUTE .MEDSUPPLY Qty: 1 0RF Rx Instructions: As directed (DME) lancets [FreeStyle Lancets] 28 gauge misc See Rx Instructions .ROUTE .MEDSUPPLY Qty: 100 3RF Rx Instructions: As directed check BS QD (DME) pen needle, diabetic [BD Martina 2nd Gen Pen Needle] 32 gauge x needle See Rx Instructions .MEDSUPPLY Qty: 400 4RF Rx Instructions: 5 times a day betamethasone, augmented 0.05 % cream 1 appl topical BID PRN (Reason: Rash) Qty: 50 0RF docusate sodium 100 mg capsule 200 mg PO DAILY PRN (Reason: Constipation) Discharge Date/Time: 03/03/25 14:43 Print Language: Hebrew
[2025-03-03 09:48] LABS: Hematocrit 23.3 % (42.0-52.0); Hemoglobin 7.5 g/dl (14.0-18.0); Imm Gran Abs Auto 0.03 X10*3/uL (0.00-0.03); Imm Gran Pct Auto 0.3 % (0.0-0.4); Lymphocytes Absolute Auto 2.5 X10*3/uL (1.2-4.9); Mean Corpuscular HGB Conc 32.2 g/dl (31.0-36.0); Mean Corpuscular Hemoglobin 29.1 pg (27.0-33.0); Mean Corpuscular Volume 90.3 fL (80.0-98.0); NRBC Abs Auto 0.000 X10*3/uL (0.0-0.012); NRBC Pct Auto 0.0 /100WBC (0.0-0.2); Platelet Count 212 X10*3/uL (160-400); Red Blood Count 2.58 X10*6/uL (4.60-5.80); White Blood Count 11.9 X10*3/uL (4.8-10.8)
[2025-03-03 10:00] LABS: Anion Gap 14 (12-20); Blood Urea Nitrogen 52 mg/dL (9-16); Calcium 8.9 mg/dL (8.4-10.2); Carbon Dioxide 24 mmol/L (22-29); Chloride 108 mmol/L (96-108); Creatinine Clr Calc Pharmacy 30.9; Estimated Glomerular Filt Rate 33; Potassium 5.1 mmol/L (3.3-5.1); Sodium 141 mmol/L (135-145)
--- NOTE | 2025-03-03 10:04 | ECG_ITS ---
Test Reason : ANEMIA Blood Pressure : */* mmHG Vent. Rate : 78 BPM Atrial Rate : 78 BPM P-R Int : 156 ms QRS Dur : 92 ms QT Int : 398 ms P-R-T Axes : 14 -12 102 degrees QTcB Int : 453 ms Normal sinus rhythm Cannot rule out Inferior infarct (cited on or before 10-Apr-2023) Abnormal ECG When compared with ECG of 14-Sep-2024 19:55, No significant change was found Referred By: Bennie Spicer Electronically Signed By: LUIS BARR MD
[2025-03-03 10:16] LABS: OBS Int Ctl Valid YES; OBS1 NEGATIVE (NEGATIVE)
[2025-03-03 10:31] VITALS: BP 108/45; PULSE 79; RESP 16; TEMP 36.4; O2SAT 99
[2025-03-03 10:44] VITALS: BP 108/45; PULSE 79; RESP 16; TEMP 36.4
--- NOTE | 2025-03-03 10:49 | PC.NURSE ---
transfusion started per [facility], currently running 100ml/hr. patient vss, remains at baseline.
[2025-03-03 10:59] VITALS: BP 121/45; PULSE 78; RESP 12; TEMP 36.6
--- NOTE | 2025-03-03 11:58 | PC.NURSE ---
Patient noted to have rhythm change on tele. Appears to be aflutter. Patient denies any symptoms. Blood pressure 110/45. Rhythm seemed to go back into NSR on its own. One minute later, on tele monitor rhythm changed again. EKG ordered and when obtaining, patient was in NSR again.
[2025-03-03 12:00] VITALS: BP 111/51; PULSE 75; RESP 16; TEMP 36.4; O2SAT 100
[2025-03-03 14:04] VITALS: BP 119/56; PULSE 72; RESP 18; TEMP 36.6
== END 2025-03-03 14:43 | disposition home or self-care (01) ==
PROVIDERS: Emergency Provider Emergency Medicine; PCP Internal Medicine
DX: D64.9 Anemia, unspecified (principal); R79.89 Other specified abnormal findings of blood chemistry; R06.02 Shortness of breath; R94.31 Abnormal electrocardiogram [ECG] [EKG]; Z87.891 Personal history of nicotine dependence; Z79.899 Other long term (current) drug therapy
CPT/HCPCS: 36415; 36430; 80048; 82272; 85025; 86850; 86900; 86901; 86923; 93005; 99284; 99285; P9016

== ENCOUNTER → 2025-03-03 10:04 | Outpatient (BNV) | payer OTHER, SELFPAY | PROVIDERS: Emergency Provider Emergency Medicine; PCP Internal Medicine; Visit Provider Internal Medicine Cardiovascular Disease | DX: R94.31 Abnormal electrocardiogram [ECG] [EKG] (principal); D64.9 Anemia, unspecified | CPT/HCPCS: 93010 ==